=== PATIENT | female | born 1940 | race Caucasian/White ===

== ENCOUNTER 2020-03-22 14:24 | Emergency (ER) | payer MEDICARE, OTHER, SELFPAY ==
--- NOTE | ~2020-03-22 | CT_ITS ---
EXAMINATION: CT lumbar spine wo con EXAM DATE: 03/22/2020 16:00 INDICATION: Compression fracture and recent fall. Abnormal x-ray. TECHNIQUE: Spiral CT lumbar spine was performed without contrast. Axial, coronal and sagittal images of the lumbar spine were reviewed. The dose-length product (DLP) for this examination was 608.97 mGy- cm. The exposure was tailored according to patient size (auto mA exposure control), and iterative re construction (ASIR) was used as additional dose reduction technique. Correlation is made to lumbar sp ine x-ray same date. FINDINGS: There is mild compression fracture superior endplate of T12 which could be acute, discrete fracture l ine without evidence of healing. There is mild to moderate compression fracture of L1 which is chroni c. Other vertebral body heights relatively well-maintained. There is moderate to severe disc disease L2-L5. There is 4 mm anterolisthesis L4 on L5 without spondylolysis. No endplate erosive change. Surg ical clips from pelvic lymph node dissection. There is moderate sigmoid colonic diverticulosis. Ther e is no adjacent inflammatory change to suggest diverticulitis. There is moderate facet arthropathy L3-4, moderate to severe at L4-5 and L5-S1. Moderate left neural foraminal stenosis L3-4 and L4-5, and right neural foraminal stenosis L2-3 and L3-4. Less stenosis at the other levels. Sacroiliac joints are intact. IMPRESSION: 1. Mild T12 compression fracture, probably acute. 2. Moderate to severe lower lumbar spondylosis. 3. L4-5 grade 1 anterolisthesis. 4. Sigmoid diverticulosis. Reviewed, dictated and finalized at location A. B DIRECTOR OCCUPATIONAL THERAPIST
--- NOTE | ~2020-03-22 | XR_ITS ---
EXAMINATION: XR lumbar spine min 4V EXAM DATE: 03/22/2020 14:59 INDICATION: Fall, low back pain. TECHNIQUE: Lumber spine frontal, lateral, bilateral oblique projections. Coned down frontal and lat eral L5-S1 lumbar projections for interpretation. There is no prior study for comparison. FINDINGS: Chronic appearing mild to moderate compression fracture of L1, mild age-indeterminate compr ession fracture of T12. No endplate erosive change. There is moderate to severe disc disease L2-L5. Moderate to severe lower lumbar facet arthropathy. The vertebral bodies are aligned in the AP dimensi on. No spondylolysis suspected. Sacrum, sacroiliac joints, sacral arcuate lines are intact. Surgical clips from pelvic lymph node dissection. Mild to moderate aortic arterial sclerosis. IMPRESSION: 1. T12 mild compression fracture, age indeterminate. 2. L1 mild to moderate compression fracture appears likely chronic. 3. Moderate to severe lumbar spondylosis. Reviewed, dictated and finalized at location A. OMER EXPERIENCE CONSULTANT
--- NOTE | ~2020-03-22 | CT_ITS ---
EXAMINATION: CT brain wo [facility] EXAM DATE: 03/22/2020 14:49 INDICATION: Fall, posterior head injury. TECHNIQUE: Spiral CT of the head was performed without contrast. Axial, coronal and sagittal images were reviewed. The dose-length product (DLP) for this examination was 605.33 mGy-cm. The exposure w as tailored according to patient size, and iterative reconstruction (ASIR) was used as additional dos e reduction technique. Comparison is made to prior examination from 02/17/2019. FINDINGS: There is an old left basal ganglia lacunar infarction. Old small left frontal lobe subcorti joseluis infarction. Small to moderate-sized old right occipital lobe infarction. There is mild to moderat e microangiopathy and cerebral atrophy. No evidence of acute intracranial infarction, obstructive hyd rocephalus or extra-axial collections. Cataract surgery. IMPRESSION: 1. No acute intracranial findings. 2. Old infarctions. 3. Microangiopathy and atrophy. Reviewed, dictated and finalized at location A. ER OPERATOR
[2020-03-22 14:27] VITALS: BP 138/63; PULSE 74; RESP 16; TEMP 36.6; O2SAT 99
--- NOTE | 2020-03-22 15:00 | PC.NURSE ---
pt to xray/ct scan via stretcher
[2020-03-22 15:38] VITALS: BP 122/60; PULSE 71; RESP 19; O2SAT 98
[2020-03-22 16:49] VITALS: PULSE 71; RESP 23; O2SAT 99
--- NOTE | 2020-03-22 16:56 | ED.BACK ---
HPI - Back Pain/Injury General Chief Complaint: Back Pain/Injury Stated Complaint: FELL- BACK PAIN Time Seen by Provider: 03/22/20 14:33 Source: patient and family Mode of arrival: ambulatory Limitations: no limitations History of Present Illness HPI Narrative: 79-year-old with a history of hypertension and diabetes, compression fractures was brought in by with complaints of fall and low back pain. Patient states that she rolled out of the bed this morning and fell on her back. She denies any head injury or loss of consciousness. Denies any bladder or bowel incontinence. Denies any numbness in her lower extremities. MD elicited complaint: back pain Pertinent past history: prior back pain and recent trauma Severity: moderate Similar Symptoms Previously: No Location: lumbar spine Relieving factors: none Context: fall Associated symptoms: denies other symptoms Related Data Home Medications Medication Instructions Recorded Confirmed amlodipine 10 mg PO DAILY 02/18/19 02/18/19 aspirin [Adult Low Dose Aspirin] 81 mg PO DAILY 02/18/19 02/18/19 carvedilol 25 mg PO BID 02/18/19 02/18/19 clopidogrel 75 mg PO DAILY 02/18/19 02/18/19 fenofibrate 160 mg PO DAILY 02/18/19 02/18/19 furosemide 60 mg PO DAILY 02/18/19 02/18/19 losartan 100 mg PO DAILY 02/18/19 02/18/19 metformin 500 mg PO BID 02/18/19 02/18/19 potassium chloride 20 meq PO DAILY 02/18/19 02/18/19 pravastatin 40 mg PO DAILY 02/18/19 02/18/19 pyridoxine (vitamin B6) [Vitamin 100 mg PO DAILY 02/18/19 02/18/19 B-6] zolpidem 10 mg PO HS 02/18/19 02/18/19 Allergies Allergy/AdvReac Type Severity Reaction Status Date / Time No Known Allergies Allergy Verified 02/17/19 23:55 Review of Systems Review of Systems: All systems reviewed & are unremarkable except as noted in HPI and below Constitutional: Constitutional: Reports no additional constitutional complaints Eyes: Eyes: Reports no additional eye complaints ENT: Reports system reviewed and no additional complaints, except as documented Cardiovascular: Cardiovascular: Reports no additional cardiovascular complaints Respiratory: Respiratory: Reports no additional respiratory complaints Gastrointestinal: Gastrointestinal: Reports no additional gastrointestinal complaints Musculoskeletal: Musculoskeletal: Reports as per HPI Integumentary/Breasts: Skin/Breast: Reports system reviewed and no additional complaints, except as docu PMFSH Past Medical History Medical History Arthritis Breast cancer, left CVA (cerebral vascular accident) Diabetes mellitus HLD (hyperlipidemia) HTN (hypertension) Valvular heart disease Surgical History Surgical History Bilateral cataracts With removal H/O heart surgery History of dilation and curettage History of hysterectomy 2001 History of mastectomy 1991 History of tubal ligation Family History Family History Mother Throat cancer Father Liver cancer Sibling Diabetes mellitus Social History Social History Smoking status: Never smoker Alcohol intake: never Substance use: never Gender identity (if verbalized by the patient): Female Spiritual care concerns: No Agree to blood products: Yes Exam Narrative: Exam Narrative: GENERAL: Well-appearing, well-nourished, and in no acute distress. HEAD: Normocephalic, atraumatic. EYES: PERRLA and EOMI.. NECK: Supple. CHEST: Clear to auscultation. No respiratory distress. HEART: Regular rate and rhythm. No murmur heard. Normal peripheral pulses. ABDOMEN: Soft, nontender, nondistended, normal active bowel sounds. EXTREMITIES: Normal range of motion. No edema. SKIN: Warm, dry, no rash. NEURO: No focal deficits. Alert and oriented x3. PSYCH: Normal mood and affect. Course Vital Signs
[2020-03-22 17:30] VITALS: BP 136/86; PULSE 70; RESP 24; O2SAT 98
== END 2020-03-22 18:13 | disposition home or self-care (01) ==
PROVIDERS: Emergency Provider Family Medicine
DX: S22.088A Other fracture of T11-T12 vertebra, initial encounter for closed fracture (principal); I10 Essential (primary) hypertension; E11.9 Type 2 diabetes mellitus without complications; M19.90 Unspecified osteoarthritis, unspecified site; Z86.73 Personal history of transient ischemic attack (TIA), and cerebral infarction without residual deficits; E78.5 Hyperlipidemia, unspecified; Z85.3 Personal history of malignant neoplasm of breast; I38 Endocarditis, valve unspecified; Z98.42 Cataract extraction status, left eye; Z98.41 Cataract extraction status, right eye; Z90.10 Acquired absence of unspecified breast and nipple; M47.816 Spondylosis without myelopathy or radiculopathy, lumbar region; K57.30 Diverticulosis of large intestine without perforation or abscess without bleeding; W06.XXXA Fall from bed, initial encounter
CPT/HCPCS: 70450; 72110; 72131; 99284

== ENCOUNTER 2020-04-02 15:05 | Emergency (ER) | payer MEDICARE, OTHER, SELFPAY ==
[2020-04-02 15:10] VITALS: BP 121/53; PULSE 72; RESP 16; TEMP 36.1; O2SAT 100
--- NOTE | 2020-04-02 16:44 | ED.EPISTAXIS ---
HPI - Epistaxis General Chief complaint: Epistaxis Stated complaint: nose bleeding Time Seen by Provider: 04/02/20 16:44 History of Present Illness HPI Narrative: 79 yo female w/ h/o CAD on eeliquis presents to the ED form home for a nose bleed. She had light bleeding this morning that stopped on its onw. It started again this afternoon and she was not able to get it stopped. She had a clamp placed on arrival here and it has not bled since, that was about 90 minutes ago. No lhgiht headeness, weakness, SOB. She does not have frequent nose bleeds. Related Data Home Medications Medication Instructions Recorded Confirmed amlodipine 10 mg PO DAILY 02/18/19 02/18/19 aspirin [Adult Low Dose Aspirin] 81 mg PO DAILY 02/18/19 02/18/19 carvedilol 25 mg PO BID 02/18/19 02/18/19 clopidogrel 75 mg PO DAILY 02/18/19 02/18/19 fenofibrate 160 mg PO DAILY 02/18/19 02/18/19 furosemide 60 mg PO DAILY 02/18/19 02/18/19 losartan 100 mg PO DAILY 02/18/19 02/18/19 metformin 500 mg PO BID 02/18/19 02/18/19 potassium chloride 20 meq PO DAILY 02/18/19 02/18/19 pravastatin 40 mg PO DAILY 02/18/19 02/18/19 pyridoxine (vitamin B6) [Vitamin 100 mg PO DAILY 02/18/19 02/18/19 B-6] zolpidem 10 mg PO HS 02/18/19 02/18/19 apixaban [Eliquis] mg 04/02/20 04/02/20 aspirin 04/02/20 Allergies Allergy/AdvReac Type Severity Reaction Status Date / Time No Known Allergies Allergy Verified 04/02/20 16:26 Review of Systems Review of Systems: All systems reviewed & are unremarkable except as noted in HPI and below Constitutional: Constitutional: Denies chills, Denies fever(s) and Denies weakness Eyes: Eyes: Reports no additional eye complaints ENT: Denies dizziness Cardiovascular: Cardiovascular: Denies chest pain Respiratory: Respiratory: Denies dyspnea Gastrointestinal: Gastrointestinal: Denies abdominal pain and Denies nausea Genitourinary: Genitourinary: Denies hematuria Neurologic: Denies dizziness, Denies syncope and Denies weakness Hematologic/Lymphatic: Hematologic/Lymphatic: Denies easy bleeding and Denies easy bruising PMFSH Past Medical History Medical History Arthritis Breast cancer, left CVA (cerebral vascular accident) Diabetes mellitus HLD (hyperlipidemia) HTN (hypertension) Valvular heart disease Surgical History Surgical History Bilateral cataracts With removal H/O heart surgery History of dilation and curettage History of hysterectomy 2001 History of mastectomy 1991 History of tubal ligation Family History Family History Mother Throat cancer Father Liver cancer Sibling Diabetes mellitus Grandparent Hypertension Heart disease Social History Social History Smoking status: Never smoker Alcohol intake: never Substance use: never Substance use type: does not use Gender identity (if verbalized by the patient): Female Spiritual care concerns: No Agree to blood products: Yes Exam Const: General: no acute distress and alert Nutritional Appearance: well nourished Orientation/consciousness: patient oriented x3 HENMT: Other: Bleeding stopped. Site f recent bleeding on right kiesselbach's plexus Eyes: Pupils: Equal, round and reactive pupils present EOM: EOMs intact bilaterally Neck: Neck: normal visual inspection Resp: Effort & Inspection: normal respiratory effort Auscultation: clear to auscultation bilaterally Cardio: Rate: regular rate Rhythm: regular rhythm Skin: General skin exam: normal color and no pallor Neuro: General: patient oriented x3, moves all extremities, no focal motor deficits and CN's II-XI intact bilaterally Speech: normal speech Gait exam (Neuro): Normal gait present Extrem: General: normal to inspection Course Vital Signs Vi
[2020-04-02] MEDS: OXYMETAZOLINE HCL 0.05% NAS 15 ML BTL (*BKC) 2 SPRAY NASAL (17:10)
--- NOTE | 2020-04-02 17:17 | PC.NURSE ---
Afrin nasal spray to pt's right nare. Pt has no active bleeding at present. First squirt done per patient with instructions and 2nd done per this RN. Pt instructed that she may be using at home.
[2020-04-02] MEDS: SALINE 0.65% NAS SOLN 44 ML BTL 2 SPRAY NASAL (17:33)
--- NOTE | 2020-04-02 17:36 | PC.NURSE ---
Pt places saline solution without assist to right nare. No active bleeding anterior or posterior.
== END 2020-04-02 17:45 | disposition home or self-care (01) ==
PROVIDERS: Emergency Provider Emergency Medicine; PCP Family Medicine
DX: R04.0 Epistaxis (principal); I25.10 Atherosclerotic heart disease of native coronary artery without angina pectoris; Z79.01 Long term (current) use of anticoagulants; Z79.82 Long term (current) use of aspirin; M19.90 Unspecified osteoarthritis, unspecified site; Z85.3 Personal history of malignant neoplasm of breast; Z86.73 Personal history of transient ischemic attack (TIA), and cerebral infarction without residual deficits; E11.9 Type 2 diabetes mellitus without complications; E78.5 Hyperlipidemia, unspecified; I10 Essential (primary) hypertension; I99.9 Unspecified disorder of circulatory system; Z98.42 Cataract extraction status, left eye; Z98.41 Cataract extraction status, right eye; Z90.10 Acquired absence of unspecified breast and nipple; Z79.84 Long term (current) use of oral hypoglycemic drugs
CPT/HCPCS: 99283; A9270

== ENCOUNTER 2020-05-09 11:04 | Outpatient (CLI) | payer MEDICARE, OTHER, SELFPAY ==
[2020-05-09 11:46] LABS: Basophils Absolute Auto 0.1 K/mm3 (0.0-0.1); Basophils Percent Auto 0.9 % (0.2-1.2); Eosinophils Absolute Auto 0.1 K/mm3 (0-0.3); Eosinophils Percent Auto 1.5 % (0-4.4); Hematocrit 39.3 % (37.0-47.0); Hemoglobin 12.7 g/dL (12.0-15.0); Immature Granulocyte Absolute 0.01 K/mm3 (0.00-0.031); Immature Granulocyte Percent A 0.2 % (0-0.5); Lymphocytes Percent Auto 18.9 % (18.3-44.2); Mean Corpuscular HGB Conc 32.3 g/dl (32-36); Mean Corpuscular Hemoglobin 29.1 pg (26-34); Mean Corpuscular Volume 90.1 fl (80-100); Mean Platelet Volume 10.8 fl (7.4-10.4); Monocytes Absolute Auto 0.4 K/mm3 (0.1-0.6); Monocytes Percent Auto 7.1 % (2.6-8.5); Neutrophils Absolute Auto 4.2 K/mm3 (1.3-6.7); Neutrophils Percent Auto 71.4 % (45.5-73.1); Platelet Count Result 193 k/mm3 (150-375); Red Blood Count 4.36 M/mm3 (4.2-5.4); Red Cell Distribution Width 14.2 % (11.5-14.5); White Blood Count 5.8 K/mm3 (4.5-10.0)
[2020-05-09 11:58] LABS: Alanine Aminotransferase 24 U/L (4-35); Albumin Level 3.8 g/dL (3.5-5.1); Alkaline Phosphatase 55 U/L (38-126); Anion Gap 7 mmol/L (8-16); Aspartate Amino Transferase 43 U/L (14-36); Bilirubin,Total 0.6 mg/dL (0.2-1.3); Blood Urea Nitrogen 10 mg/dL (7-17); Calcium 8.8 mg/dL (8.4-10.2); Carbon Dioxide 23 mmol/L (22-30); Chloride 109 mmol/L (98-107); Estimated Glomerular Filt Rate 53; Glucose 176 mg/dL (65-105); Potassium 4.3 mmol/L (3.4-5.0); Sodium 139 mmol/L (137-145)
[2020-05-09 11:59] LABS: INR 1.6; Prothrombin Time 19.3 Seconds (11.1-14.7)
== END 2020-05-09 11:05 | disposition home or self-care (01) ==
PROVIDERS: PCP Internal Medicine; Visit Provider Internal Medicine
DX: E11.9 Type 2 diabetes mellitus without complications (principal); E78.5 Hyperlipidemia, unspecified; I10 Essential (primary) hypertension; I70.90 Unspecified atherosclerosis
CPT/HCPCS: 36415; 80053; 85025; 85610

== ENCOUNTER 2022-03-09 05:56 | Emergency (ER) | payer MEDICARE, OTHER, SELFPAY ==
[2022-03-09] VITALS (32 sets, daily range): BP systolic 162–207; BP diastolic 74–104; PULSE 67–82; RESP 13–33; TEMP 36.8–37.1; O2SAT 98–99
--- NOTE | ~2022-03-09 | CT_ITS ---
EXAMINATION: CT brain wo con DATE: 03/09/2022 06:33 INDICATION: Altered mental status. TECHNIQUE: Computed tomography (CT) of the head was performed without intravenous contrast. The mA wa s adjusted according to patient size. Iterative reconstruction technique was employed. The dose-lengt h product was 605.33 mGy-cm. COMPARISON: Head CT 03/22/2020 FINDINGS: There is an old infarct in right parietal occipital region. There are scattered areas of lo w attenuation in the cerebral white matter. There are old infarcts in the left basal ganglia. There i s no intracranial hemorrhage, acute infarction, or abnormal intracranial mass lesion. The ventricles are normal in size. The paranasal sinuses are clear. There are likely changes of ocular lens replacem ent surgeries. The mastoid air cells are normal. IMPRESSION: 1. Old infarcts in the right parietal-occipital region and left basal ganglia. 2. Worsened moderate nonspecific cerebral white matter disease, which likely represents chronic small vessel ischemic disease. Reviewed, dictated and finalized at location A. WELL GUN PERFORATOR OPERATOR IMPRESSION: 1. Old infarcts in the right parietal-occipital region and left basal ganglia. 2. Worsened moderate nonspecific cerebral white matter disease, which likely re presents chronic small vessel ischemic disease.
--- NOTE | ~2022-03-09 | CT_ITS ---
EXAMINATION: CT cervical spine wo con DATE: 03/09/2022 06:33 INDICATION: Neck injury. Fall. TECHNIQUE: Computed tomography (CT) of the cervical spine was performed without intravenous contrast. Automated exposure control and iterative reconstruction technique were employed. The dose-length pro duct was 271.20 mGy-cm. COMPARISON: None FINDINGS: There are nodules in the thyroid measuring up to 13 mm, likely not clinically significant. There is 6 degrees levocurvature of cervicothoracic spine. There is 2 mm anterolisthesis of C3 on C4 and C4 on C5. Vertebral body heights are normal. There is moderately decreased disc height at C3-C4 a nd C4-C5 and severely decreased disc height at C5-C6, C6-C7, and C7-T1 with endplate remodeling. The following disc levels are specifically discussed: C2-C3: There is ankylosis of the uncovertebral joints with mild left hypertrophy. There is ankylosis of the facet joints without hypertrophy. There is mild left neural foraminal stenosis. There is no ce ntral canal stenosis. C3-C4: There is severe bilateral uncovertebral joint osteoarthritis. There is severe bilateral facet joint osteoarthritis. There is mild right and moderate left neural foraminal stenosis. There is mild central canal stenosis. C4-C5: There is severe right and moderate left uncovertebral joint osteoarthritis. There is severe bi lateral facet joint osteoarthritis. There is mild bilateral neural foraminal stenosis. There is mild central canal stenosis. C5-C6: There is severe bilateral uncovertebral joint osteoarthritis. There is severe bilateral facet joint osteoarthritis. There is mild bilateral neural foraminal stenosis. There is mild central canal stenosis. C6-C7: There is severe bilateral uncovertebral joint osteoarthritis. There is moderate right and mild left facet joint osteoarthritis. There is mild bilateral neural foraminal stenosis. There is mild ce ntral canal stenosis. C7-T1: There is severe right and mild left uncovertebral joint osteoarthritis. There is severe right and moderate left facet joint osteoarthritis. There is mild right neural foraminal stenosis. There is no central canal stenosis. IMPRESSION: 1. No fracture. 2. Severe cervical spondylosis. Reviewed, dictated and finalized at location A. GER SOCIAL WORK
--- NOTE | 2022-03-09 06:00 | ECG_ITS ---
Measurements Intervals [place] Rate: 74 P: 18 KS: 138 QRS: -61 QRSD: 125 T: 129 QT: 443 QTc: 494 Interpretive Statements SINUS RHYTHM LEFT ANTERIOR FASCICULAR BLOCK LEFT VENTRICULAR HYPERTROPHY AND ST-T CHANGE BORDERLINE ST-T WAVE ABNORMALITY- LATERAL LEADS ABNORMAL ECG COMPARED TO ECG 02/17/2019 23:49:02 LEFT ANTERIOR FASCICULAR BLOCK NOW PRESENT ST (T WAVE) DEVIATION NOW PRESENT Electronically Signed On 03-09-2022 8:02:48 FILLER SHAKER by Gal Honeycutt D.O.
--- NOTE | 2022-03-09 06:10 | ED.AMS ---
HPI - Altered Mental Status General Chief Complaint: Altered Mental Status <James Butt MD - Last Filed: 03/09/22 09:11> Stated Complaint: SLOW TO RESPOND, FALLS, LETHARGY <James Butt MD - Last Filed: 03/09/22 09:11> Time Seen by Provider: 03/09/22 06:00 <James Butt MD - Last Filed: 03/09/22 09:11> History of Present Illness HPI narrative: This is an 81-year-old female with past medical history of diabetes, hypertension and stroke, who is brought in by EMS for altered mental status and fall. Per EMS, the patient fell twice overnight and this morning was slow to respond and appeared confused per the patient's . The patient had no other obvious complaints. Vital signs remarkable for hypertension in route. Fingerstick glucose reported in the 160s. The patient is not sure why she is here and has no complaints. <James Butt MD - Last Filed: 03/09/22 09:11> Related Data Home Medications: Home Medications Medication Instructions Recorded Confirmed amlodipine 10 mg tablet 10 mg PO DAILY 02/18/19 02/18/19 aspirin 81 mg tablet,delayed 81 mg PO DAILY 02/18/19 02/18/19 release (Adult Low Dose Aspirin) carvedilol 25 mg tablet 25 mg PO BID 02/18/19 02/18/19 clopidogrel 75 mg tablet 75 mg PO DAILY 02/18/19 02/18/19 fenofibrate 160 mg tablet 160 mg PO DAILY 02/18/19 02/18/19 furosemide 20 mg tablet 60 mg PO DAILY 02/18/19 02/18/19 losartan 100 mg tablet 100 mg PO DAILY 02/18/19 02/18/19 metformin 500 mg tablet 500 mg PO BID 02/18/19 02/18/19 potassium chloride 20 mEq 20 meq PO DAILY 02/18/19 02/18/19 tablet,extended release pravastatin 40 mg tablet 40 mg PO DAILY 02/18/19 02/18/19 pyridoxine (vitamin B6) 100 mg 100 mg PO DAILY 02/18/19 02/18/19 tablet (Vitamin B-6) zolpidem 10 mg tablet 10 mg PO HS 02/18/19 02/18/19 apixaban 2.5 mg tablet (Eliquis) mg 04/02/20 04/02/20 aspirin 04/02/20 <James Butt MD - Last Filed: 03/09/22 09:11> Allergies/Adverse Reactions: Allergies Allergy/AdvReac Type Severity Reaction Status Date / Time No Known Allergies Allergy Verified 04/02/20 16:26 <James Butt MD - Last Filed: 03/09/22 09:11> Review of Systems Review of Systems: CONSTITUTIONAL: Denies fever, chills, or sweats. EYES: Denies visual changes, redness, or discharge. ENT: Denies rhinorrhea, congestion, sore throat, or otalgia. CARDIOVASCULAR: Denies chest pain, palpitations, or edema. RESPIRATORY: Denies cough or dyspnea. GASTROINTESTINAL: Denies abdominal pain, nausea, vomiting, or diarrhea. GENITOURINARY: Denies dysuria or hematuria. SKIN: Denies rash or itching. MUSCULOSKELETAL: Denies back pain, joint pain, or myalgia. NEUROLOGIC: Denies headache, numbness, dizziness, or weakness. PSYCHIATRIC: Denies anxiety or depression. <James Butt MD - Last Filed: 03/09/22 09:11> PMF Past Medical History Medical History: Medical History Arthritis Breast cancer, left CVA (cerebral vascular accident) Diabetes mellitus HLD (hyperlipidemia) HTN (hypertension) Valvular heart disease <James Butt MD - Last Filed: 03/09/22 09:11> Surgical History Surgical History: Surgical History Bilateral cataracts With removal H/O heart surgery History of dilation and curettage History of hysterectomy 2002 History of mastectomy 1992 History of tubal ligation <James Butt MD - Last Filed: 03/09/22 09:11> Family History Family History: Family History Mother Throat cancer Father Liver cancer Sibling Diabetes mellitus Grandparent Hypertension Heart disease <James Butt MD - Last Filed: 03/09/22 09:11> Social History Social History: Social History Smoking statu
--- NOTE | 2022-03-09 06:26 | PC.NURSE ---
Pt's called 911 this morning after pt fell twice during the night. reports that pt is not acting right . Upon arrival pt answers questions appropriately after multiple prompts. She is slow to respond but alert and oriented x3. She denies any pain. When asked what made her fall pt cannot recall. She moves all extremities equally. Face is symmetrical. Speech is slurred. She denies any complaints at this time.
[2022-03-09 06:32] LABS: Basophils Absolute Auto 0.1 K/mm3 (0.0-0.1); Basophils Percent Auto 1.2 % (0.2-1.2); Eosinophils Absolute Auto 0.2 K/mm3 (0-0.3); Eosinophils Percent Auto 2.9 % (0-4.4); Hematocrit 43.2 % (37.0-47.0); Hemoglobin 13.9 g/dL (12.0-15.0); Immature Granulocyte Absolute 0.03 K/mm3 (0.00-0.031); Immature Granulocyte Percent A 0.4 % (0-0.5); Lymphocytes Absolute Auto 2.31 K/mm3 (0.9-3.2); Mean Corpuscular HGB Conc 32.2 g/dl (32-36); Mean Corpuscular Hemoglobin 27.9 pg (26-34); Mean Corpuscular Volume 86.6 fl (80-100); Mean Platelet Volume 11.4 fl (7.4-10.4); Monocytes Absolute Auto 0.6 K/mm3 (0.1-0.6); Monocytes Percent Auto 7.3 % (2.6-8.5); Neutrophils Percent Auto 60.2 % (45.5-73.1); Platelet Count Result 181 k/mm3 (150-375); Red Blood Count 4.99 M/mm3 (4.2-5.4); Red Cell Distribution Width 12.3 % (11.5-14.5); White Blood Count 8.2 K/mm3 (4.5-10.0)
[2022-03-09 06:36] LABS: Add Urine Microscopic? YES; Appearance Urine Clear (Clear); Bilirubin Urine Negative (Negative); Blood Urine 1+ (Negative); Color Urine Yellow (Yellow); Glucose Urine UA Trace mg/dL (Negative); Ketones Urine Negative (Negative); Leukocyte Esterase Ur Negative LEU/UL (Negative); Nitrate Urine Negative (Negative); Protein Urine 1+ mg/dL (Negative); Specific Grav Ur <= 1.005 (1.001-1.035); Urobilinogen Urine 0.2 mg/dL (<2.0)
[2022-03-09 06:41] LABS: Alanine Aminotransferase 18 U/L (6-35); Albumin Level 3.8 g/dL (3.5-5.1); Alkaline Phosphatase 108 U/L (38-126); Anion Gap 6 mmol/L (8-16); Aspartate Amino Transferase 25 U/L (14-36); Bilirubin,Total 0.5 mg/dL (0.2-1.3); Blood Urea Nitrogen 13 mg/dL (7-17); Calcium 8.5 mg/dL (8.4-10.2); Carbon Dioxide 22 mmol/L (22-30); Chloride 112 mmol/L (98-107); Estimated CRCL calculation 43 ml/min; Estimated Glomerular Filt Rate > 60; Ethanol < 10 mg/dL (<10); Glucose 225 mg/dL (65-110); Potassium 3.8 mmol/L (3.4-5.0); Sodium 140 mmol/L (137-145)
[2022-03-09 06:44] LABS: Amphetamine Screen Urine Negative (Negative); Barbiturate Screen Urine Negative (Negative); Benzodiazepines Screen Urine Negative (Negative); Cannabinoid Screen Urine Negative (Negative); Cocaine Screen Urine Negative (Negative); Methadone Screen Urine Negative (Negative); Opiate Screen Urine Negative (Negative); Phencyclidine Screen Urine Negative (Negative)
[2022-03-09 06:53] LABS: Troponin I 0.025 ng/mL (0.000-0.034)
[2022-03-09 06:54] LABS: Squamous Epithelial Cell Urine Rare /hpf (Few); WBC Urine 0-3 /hpf
[2022-03-09] MEDS: amLODIPine BESYLATE 5 MG TABLET 10 MG PO (07:48)
[2022-03-09 07:53] LABS: INR 1.3; Prothrombin Time 15.6 Seconds (11.1-14.7)
[2022-03-09 07:54] LABS: Partial Thromboplastin Time 26.8 SECONDS (22.3-36.8)
[2022-03-09 09:28] LABS: Influenza A QL RT-PCR Negative (Negative); Influenza B QL RT-PCR Negative (Negative); SARS-CoV-2 RNA PCR Negative
[2022-03-09 10:17] LABS: Troponin I 0.025 ng/mL (0.000-0.034)
--- NOTE | 2022-03-09 11:02 | PC.NURSE ---
Ambulatory in [place] without difficulty. Gait steady. c/o leg weakness but ambulates without assist.
--- NOTE | 2022-03-09 11:16 | PC.NURSE ---
Patient report received from EDD Ruano. All questions answered and care of patient assumed.
== END 2022-03-09 12:04 | disposition home or self-care (01) ==
PROVIDERS: Emergency Provider Preventive Medicine Aerospace Medicine; PCP Internal Medicine
DX: R41.82 Altered mental status, unspecified (principal); R94.31 Abnormal electrocardiogram [ECG] [EKG]; Z20.822 Contact with and (suspected) exposure to COVID-19; M19.90 Unspecified osteoarthritis, unspecified site; E11.9 Type 2 diabetes mellitus without complications; I10 Essential (primary) hypertension; E78.5 Hyperlipidemia, unspecified; Z85.3 Personal history of malignant neoplasm of breast; Z86.73 Personal history of transient ischemic attack (TIA), and cerebral infarction without residual deficits; Z79.01 Long term (current) use of anticoagulants
CPT/HCPCS: 36415; 70450; 72125; 80053; 80307; 81001; 84443; 84484; 85025; 85610; 85730; 87636; 93005; 99284; A9270

== ENCOUNTER 2022-03-21 12:28 | Observation (INO) | payer MEDICARE, OTHER, SELFPAY ==
[2022-03-21] VITALS (13 sets, daily range): BP systolic 132–167; BP diastolic 63–85; PULSE 68–82; RESP 13–26; TEMP 36.8–37.1; O2SAT 92–100
--- NOTE | ~2022-03-21 | XR_ITS ---
EXAMINATION: XR chest 1V portable DATE: 03/21/2022 13:54 INDICATION: Stroke. TECHNIQUE: A single frontal view of the chest was obtained. COMPARISON: Chest single view 02/17/2019 FINDINGS: There is no pneumonia, pleural effusion, or pneumothorax. The heart size is normal. There a re changes of mitral annuloplasty. There are surgical clips in left axilla. IMPRESSION: 1. No acute cardiopulmonary disease. Reviewed, dictated and finalized at location A. LY SALES STAFF
--- NOTE | ~2022-03-21 | US_ITS ---
EXAMINATION: US carotid duplex BI DATE: 03/22/2022 10:39 INDICATION: Left face weakness. Left hemiparesis. Stroke. TECHNIQUE: Grayscale, color Doppler, and pulsed Doppler images of the cervical carotid arteries were obtained. The degree of vessel stenosis is placed in one of the following categories: normal, <50%, 5 0-69%, >=70% but less than near-occlusion, near-occlusion, or total occlusion. Note that percent sten osis relative to normal distal artery lumen diameter is indirectly measured from velocity measurement s as described by Jared, et al. Radiology 2003; 229:340-346. COMPARISON: None. FINDINGS: RIGHT: The right common carotid artery (CCA) peak systolic velocity (PSV) is 68 cm/s. The right internal car otid artery (ICA) PSV is 72 cm/s. The right ICA end-diastolic velocity (EDV) is 19 cm/s. The right IC A/CCA PSV ratio is 1.1. Grayscale and color Doppler images yield an estimate of <50% diameter reducti on from plaque in the ICA. There is antegrade flow in the right vertebral artery. LEFT: The left CCA PSV is 72 cm/s. The left ICA PSV is 72 cm/s. The left ICA EDV is 18 cm/s. The left ICA/C CA PSV ratio is 1.0. Grayscale and color Doppler images yield an estimate of <50% diameter reduction from plaque in the ICA. There is antegrade flow in the left vertebral artery. IMPRESSION: 1. <50% stenosis in the right internal carotid artery. 2. <50% stenosis in the left internal carotid artery. Reviewed, dictated and finalized at location A. TECHNICIAN
--- NOTE | ~2022-03-21 | CT_ITS ---
EXAMINATION: CT brain wo con DATE: 03/21/2022 12:41 INDICATION: Left facial weakness. Slurred speech. TECHNIQUE: Computed tomography (CT) of the head was performed without intravenous contrast. The mA wa s adjusted according to patient size. Iterative reconstruction technique was employed. The dose-lengt h product was 605.33 mGy-cm. COMPARISON: Head CT 03/09/2022 FINDINGS: There is an old infarct in right parietal occipital region. There is old infarct in the lef t basal ganglia. There are scattered areas of low attenuation in the cerebral white matter. There is no intracranial hemorrhage, acute infarction, or abnormal intracranial mass lesion. The ventricles ar e normal in size. There are likely changes of ocular lens replacement surgeries. There is mild mucosa l thickening in the ethmoid sinuses. The mastoid air cells are normal. IMPRESSION: 1. Old infarcts in the right parietal-occipital region and left basal ganglia. 2. Stable moderate nonspecific cerebral white matter disease, which likely represents chronic small v essel ischemic disease. 3. I discussed this case with Dr. Valiente. Reviewed, dictated and finalized at location A. [facility] IMPRESSION: 1. Old infarcts in the right parietal-occipital region and left basal ganglia. 2. Stable moderate nonspecific cerebral white matter disease, which likely repr esents chronic small vessel ischemic disease. 3. I discussed this case with Dr. Valiente.
--- NOTE | ~2022-03-21 | MR_ITS ---
EXAMINATION: MR brain/brain stem wo con DATE: 03/22/2022 10:40 INDICATION: Transient left facial weakness and arm weakness. TECHNIQUE: Magnetic resonance imaging (MRI) of the brain and brainstem was performed without intraven ous contrast. COMPARISON: Head CT 03/21/2022 FINDINGS: There is an old infarct in right parietal occipital region with old blood products. There a re scattered areas of nonspecific increased T2-weighted signal intensity in the cerebral white matter . There is old infarct in the left basal ganglia. There is no intracranial hemorrhage, acute infarcti on, or abnormal intracranial mass lesion. The ventricles are normal in size. The paranasal sinuses ar e clear. There are likely changes of ocular lens replacement surgeries. The mastoid air cells are nor mal. IMPRESSION: 1. Old infarcts in the right parietal-occipital region and left basal ganglia. 2. Moderate nonspecific cerebral white matter disease, which likely represents chronic small vessel i schemic disease. Reviewed, dictated and finalized at location A. TIVE PHYSICAL EDUCATION SPECIALIST IMPRESSION: 1. Old infarcts in the right parietal-occipital region and left basal ganglia. 2. Moderate nonspecific cerebral white matter disease, which likely represents chronic small vessel ischemic disease.
--- NOTE | 2022-03-21 12:32 | ECG_ITS ---
Measurements Intervals [place] Rate: 71 P: -1 MA: 131 QRS: -51 QRSD: 125 T: 153 QT: 431 QTc: 471 Interpretive Statements SINUS RHYTHM WITH SINUS ARRHYTHMIA RIGHT BUNDLE BRANCH BLOCK LEFT ANTERIOR FASCICULAR BLOCK LEFT VENTRICULAR HYPERTROPHY AND ST-T CHANGE CANNOT RULE OUT SEPTAL INFARCT, AGE INDETERMINATE MINIMAL Q WAVES- HIGH LATERAL LEADS ABNORMAL ECG COMPARED TO ECG 03/09/2022 06:01:31 SINUS ARRHYTHMIA NOW PRESENT RIGHT BUNDLE-BRANCH BLOCK NOW PRESENT Electronically Signed On 03-21-2022 14:07:54 ACCOUNTING PRACTICE MANAGER by Gal Honeycutt D.O.
[2022-03-21 12:44] LABS: Glucose Point of Care 241 mg/dl (65-105)
[2022-03-21 13:03] LABS: Basophils Absolute Auto 0.1 K/mm3 (0.0-0.1); Eosinophils Absolute Auto 0.1 K/mm3 (0-0.3); Eosinophils Percent Auto 1.9 % (0-4.4); Hematocrit 42.9 % (37.0-47.0); Hemoglobin 13.6 g/dL (12.0-15.0); Immature Granulocyte Absolute 0.03 K/mm3 (0.00-0.031); Immature Granulocyte Percent A 0.4 % (0-0.5); Lymphocytes Absolute Auto 2.17 K/mm3 (0.9-3.2); Lymphocytes Percent Auto 31.9 % (18.3-44.2); Mean Corpuscular HGB Conc 31.7 g/dl (32-36); Mean Corpuscular Hemoglobin 27.3 pg (26-34); Mean Platelet Volume 11.3 fl (7.4-10.4); Monocytes Absolute Auto 0.5 K/mm3 (0.1-0.6); Monocytes Percent Auto 7.5 % (2.6-8.5); Neutrophils Absolute Auto 3.9 K/mm3 (1.3-6.7); Neutrophils Percent Auto 57.3 % (45.5-73.1); Platelet Count Result 175 k/mm3 (150-375); Red Blood Count 4.99 M/mm3 (4.2-5.4); Red Cell Distribution Width 12.7 % (11.5-14.5); White Blood Count 6.8 K/mm3 (4.5-10.0)
[2022-03-21 13:15] LABS: INR 1.3; Partial Thromboplastin Time 27.3 SECONDS (22.3-36.8); Prothrombin Time 15.3 Seconds (11.1-14.7)
--- NOTE | 2022-03-21 13:52 | ED.NEUROSD ---
HPI - Neuro Symptoms/Deficit General Chief Complaint: Suspected CVA Stated Complaint: slurred speech, left facial droop Time Seen by Provider: 03/21/22 13:26 History of Present Illness HPI Narrative: Patient is an 81-year-old female presenting with weakness. Patient denies complaints and states that she does not know why she is here. I spoke with the daughter who states that the patient's noticed this morning that the left side of her face was drooping and she had slurred speech. Patient's is also concerned that it seemed like her left arm was flaccid. EMS was called and upon her arrival to the ER, the symptoms had resolved. NIH of 0 upon arrival. According to family, she has had TIAs in the past. The daughter states that the family has been looking into getting her placed into a nursing facility as it has been increasingly difficult for her to care for her. Patient currently denies any pain, numbness, weakness. States she is hungry. Related Data Home Medications Medication Instructions Recorded Confirmed amlodipine 10 mg tablet 10 mg PO DAILY 02/18/19 03/21/22 aspirin 81 mg tablet,delayed 81 mg PO DAILY 02/18/19 03/21/22 release (Adult Low Dose Aspirin) carvedilol 25 mg tablet 25 mg PO BID 02/18/19 03/21/22 clopidogrel 75 mg tablet 75 mg PO DAILY 02/18/19 03/21/22 fenofibrate 160 mg tablet 160 mg PO DAILY 02/18/19 03/21/22 furosemide 20 mg tablet 60 mg PO DAILY 02/18/19 03/21/22 losartan 100 mg tablet 100 mg PO DAILY 02/18/19 03/21/22 metformin 500 mg tablet 500 mg PO BID 02/18/19 03/21/22 potassium chloride 20 mEq 20 meq PO DAILY 02/18/19 03/21/22 tablet,extended release pravastatin 40 mg tablet 40 mg PO DAILY 02/18/19 03/21/22 pyridoxine (vitamin B6) 100 mg 100 mg PO DAILY 02/18/19 03/21/22 tablet (Vitamin B-6) zolpidem 10 mg tablet 10 mg PO HS 02/18/19 03/21/22 apixaban 2.5 mg tablet (Eliquis) 2.5 mg PO BID 04/02/20 03/21/22 Allergies Allergy/AdvReac Type Severity Reaction Status Date / Time No Known Allergies Allergy Verified 04/02/20 16:26 Review of Systems Review of Systems: All systems reviewed & are unremarkable except as noted in HPI and below PMFSH Past Medical History Medical History (Updated 03/23/22 @ 17:39 by Suni Valiente MD) Arthritis Cancer of left breast (1991) Cerebrovascular accident (01/2019) Memory deficits, occasional word-finding problems, cognitive decline. Hyperlipidemia Hypertension Thoracic compression fracture Type 2 diabetes mellitus Valvular heart disease Surgical History Surgical History (Updated 03/21/22 @ 20:39 by Marilee Machuca PA-C) History of bilateral cataract extraction History of dilation and curettage (08/2001) History of heart valve replacement History of hysterectomy (2001) History of left mastectomy (1991) History of right breast biopsy History of tubal ligation (1978) Family History Family History Mother Throat cancer Father Liver cancer Sibling Diabetes mellitus Grandparent Hypertension Heart disease Social History Social History (Updated 03/21/22 @ 20:39 by Marilee Machuca PA-C) Social History: Surrogate medical decision maker: Pedrito Elizabeth, spouse. Code status: Full code. Smoking status: Never smoker Alcohol intake: never Substance use: never Substance use type: does not use Lack of Transportation: No Lack of Food: Never True Current Housing: I Have Housing Concerned About Future Housing: No Difficulty Paying Gas/Electric Bills: No Difficulty Paying for Meds: No Currently Unemployed: No Education: High School Diploma/GED Difficulty w/ Childcare or Family Care: No Living arrangements: with family Additional living arrangements comments: Lives with spouse in [place]. Raised 4 children. Occupation/Education: retired Spiritual care concerns: No Agree to blood products: Yes Exam N
[2022-03-21 14:36] LABS: Chloride 107 mmol/L (98-107)
[2022-03-21 14:46] LABS: Troponin I 0.021 ng/mL (0.000-0.034)
[2022-03-21 14:48] LABS: Alanine Aminotransferase 19 U/L (6-35); Albumin Level 3.3 g/dL (3.5-5.1); Alkaline Phosphatase 97 U/L (38-126); Anion Gap 7 mmol/L (8-16); Aspartate Amino Transferase 25 U/L (14-36); Bilirubin,Total 0.6 mg/dL (0.2-1.3); Blood Urea Nitrogen 18 mg/dL (7-17); Calcium 8.3 mg/dL (8.4-10.2); Carbon Dioxide 22 mmol/L (22-30); Estimated CRCL calculation 36 ml/min; Estimated Glomerular Filt Rate 60; Glucose 268 mg/dL (65-110); Potassium 3.9 mmol/L (3.4-5.0); Sodium 136 mmol/L (137-145)
[2022-03-21 14:55] LABS: Influenza A QL RT-PCR Negative (Negative); Influenza B QL RT-PCR Negative (Negative); SARS-CoV-2 RNA PCR Negative
--- NOTE | 2022-03-21 18:10 | PM.IMHP ---
H&P: HPI History of Present Illness Date/Time: 03/21/22 18:10 Chief Complaint: Left arm weakness and facial droop. Narrative: This is an 81-year-old female with history of stroke, hypertension, and diabetes who presented to the ED from home for evaluation of left arm weakness and facial droop. Patient is an unreliable historian and a majority of the following history is obtained from her son Henok at bedside in addition to triage and ED physician notes. The patient has showed increasing confusion since last September and is to the point where she does not really cook or clean any more. She is able to feed herself. She has had increasing issues with incontinence as well. She ambulates with a walker but has had falls though luckily she has not injured herself. This morning her was concerned as her speech seemed slurred and it appeared that the left side of her mouth was drooping. Later when he tried to help her get up with her walker the left arm seemed flaccid and she was unable to use it for a brief period of time. EMS was summoned and on their arrival her NIH stroke scale was 0 and she seemed to be back to baseline on arrival to the ED. She has been afebrile with stable vital signs though blood pressures have been running persistently in the 140s to 160s systolic. Brain CT showed old infarcts and stable moderate nonspecific cerebral white matter disease with no acute findings. She is being admitted in this setting for closer monitoring and stroke workup. Additionally the patient's has had increasing difficulties caring for her at home and they would like to discuss possible placement. At the time my evaluation the patient is alert and states that she is hungry. She has no complaints and does specifically deny headache, visual changes, focal weakness, paresthesias, chest pain, shortness a breath, nausea, and vomiting. She has not had any recent illnesses but notes that she slept for over 12 hours last night which is unusual for her. Review of Systems Review of Systems: Unable to assess accurately given her confusion. [facility] Past Medical History Medical History (Updated 03/21/22 @ 20:51 by Marilee Machuca PA-C) Arthritis Cancer of left breast (1991) Cerebrovascular accident (01/2019) Memory deficits, occasional word-finding problems, cognitive decline. Hyperlipidemia Hypertension Thoracic compression fracture Type 2 diabetes mellitus Valvular heart disease Surgical History Surgical History (Updated 03/21/22 @ 20:39 by Marilee Machuca PA-C) History of bilateral cataract extraction History of dilation and curettage (08/2001) History of heart valve replacement History of hysterectomy (2001) History of left mastectomy (1991) History of right breast biopsy History of tubal ligation (1978) Family History Family History Mother Throat cancer Father Liver cancer Sibling Diabetes mellitus Grandparent Hypertension Heart disease Social History Social History (Updated 03/21/22 @ 20:39 by Marilee Machuca PA-C) Social History: Surrogate medical decision maker: Pedrito Johnson, spouse. Code status: Full code. Smoking status: Never smoker Alcohol intake: never Substance use: never Substance use type: does not use Living arrangements: with family Additional living arrangements comments: Lives with spouse in [place]. Raised 4 children. Occupation/Education: retired Spiritual care concerns: No Agree to blood products: Yes Meds Home Medications and Allergies Home Medications Medication Instructions Recorded Confirmed Type amlodipine 10 mg tablet 10 mg PO DAILY 02/18/19 02/18/19 History aspirin 81 mg tablet,delayed 81 mg PO DAILY 02/18/19 02/18/19 History release (Adult Low Dose Aspirin) carvedilol 25 mg tablet 25 mg PO BID 02/18/19 02/18/19 History clopidogrel 75 mg tablet 75 mg PO DAILY 02/18/19 02/18/19
--- NOTE | 2022-03-21 21:43 | ADMGEN ---
This patient, Yuliana Johnson, was admitted to Medical Room 256-01. Patient/family oriented to hospital policies and general routines including ID bracelet, bed and alarms, visiting hours, pain management, procedures, bathroom and other care routines, personal items, smoking policy, room service/diet, and visiting hours. Information on how to activate the Rapid Response Team has been discussed. Patient/Family are encouraged to report perceived risks to care and to ask questions if they do not understand what they are told or what they should do.
[2022-03-22] VITALS (11 sets, daily range): BP systolic 121–175; BP diastolic 57–64; PULSE 72–82; RESP 16–20; TEMP 36.2–36.7; O2SAT 95–98
[2022-03-22 05:27] LABS: Anion Gap 4 mmol/L (8-16); Blood Urea Nitrogen 16 mg/dL (7-17); Calcium 8.2 mg/dL (8.4-10.2); Carbon Dioxide 26 mmol/L (22-30); Chloride 108 mmol/L (98-107); Estimated CRCL calculation 40 ml/min; Estimated Glomerular Filt Rate > 60; Glucose 170 mg/dL (65-110); Magnesium 1.7 mg/dL (1.6-2.3); Potassium 3.7 mmol/L (3.4-5.0); Sodium 138 mmol/L (137-145)
[2022-03-22 07:38] LABS: Hemoglobin A1C 8.8 % (<5.7)
[2022-03-22 08:38] LABS: Glucose Point of Care 183 mg/dl (65-105)
[2022-03-22] MEDS: LOSARTAN POTASSIUM 100 MG TABLET PO (09:09)
[2022-03-22] MEDS: PRAVASTATIN SODIUM 20 MG TABLET 40 MG PO (09:09)
[2022-03-22] MEDS: metFORMIN HCL 500 MG TABLET PO ×2 (09:09→16:47)
[2022-03-22] MEDS: carvediloL 25 MG TABLET PO ×2 (09:10→20:24)
[2022-03-22] MEDS: CLOPIDOGREL BISULFATE 75 MG TABLET PO (09:10)
[2022-03-22] MEDS: PYRIDOXINE HCL 50 MG TABLET 100 MG PO (09:10)
[2022-03-22] MEDS: ASPIRIN 81 MG ENTERIC TABLET PO (09:10)
[2022-03-22] MEDS: POTASSIUM CHLORIDE 20 MEQ TABLET.ER PO (09:10)
[2022-03-22] MEDS: APIXABAN 2.5 MG TABLET PO ×2 (09:10→16:47)
[2022-03-22] MEDS: FENOFIBRATE 160 MG TABLET PO (09:10)
[2022-03-22] MEDS: FUROSEMIDE 20 MG TABLET 60 MG PO (09:11)
[2022-03-22] MEDS: amLODIPine BESYLATE 5 MG TABLET 10 MG PO (09:11)
--- NOTE | 2022-03-22 11:48 | WPDNEURCNPN ---
Assessment and Plan Assessment and plan (1) TIA (transient ischemic attack): Code(s): G45.9 - Transient cerebral ischemic attack, unspecified Status: Acute Plan 1. TIA 2. Hypertension 3. Diabetes mellitus 4. Old stroke as documented by the CT scan and MRI 5 under lying ongoing dementia of vascular origin 6. Remote possibility of seizure though at this stage extremely unlikely and plan as outlined Consult date: 03/22/22 Reason for consult: Admitted to the hospital through the emergency room where she presented with the complaints of weakness along with slurred speech and left-sided facial droop as per the information available in the ER from the daughter and the she was noted to have slurred speech along with the drooping of the left side of the face and also her left upper extremity was flaccid by the time she came to the emergency room the symptomatology had resolved with a NIH of 0 upon arrival but patient does have history of TIAs in the past and the family was recently working into getting her placed into [facility]dc patient had been taking amlodipine 10 mg daily, aspirin 81 mg daily, clopidogrel 75 mg daily, carvedilol 25 mg twice a day and apixaban 2.5 mg daily is started on April 02, 2020, patient does have ongoing history of diabetes mellitus, hypertension and valvular heart disease, she has never alcohol intake never smoked on initial evaluation her vital signs were normal with blood pressure 165/74 routine lab studies were normal with negative influenza a and B and stars COVID screening initial CT scan of the head documented old infarcts in right parieto-occipital region and left basal ganglia, negative Doppler studies of carotid, and MRI documented old infarct in the right parieto-occipital region and left basal ganglia HPI: Review of Systems Review of Systems: All systems reviewed & are unremarkable except as noted in HPI and below [facility] Past Medical History Medical History (Updated 03/22/22 @ 12:01 by Jacky Prado MD) Arthritis Cancer of left breast (1991) Cerebrovascular accident (01/2019) Memory deficits, occasional word-finding problems, cognitive decline. Hyperlipidemia Hypertension Thoracic compression fracture Type 2 diabetes mellitus Valvular heart disease Surgical History Surgical History (Updated 03/21/22 @ 20:39 by Marilee Machuca PA-C) History of bilateral cataract extraction History of dilation and curettage (08/2001) History of heart valve replacement History of hysterectomy (2001) History of left mastectomy (1991) History of right breast biopsy History of tubal ligation (1978) Family History Family History Mother Throat cancer Father Liver cancer Sibling Diabetes mellitus Grandparent Hypertension Heart disease Social History Social History (Updated 03/21/22 @ 20:39 by Marilee Machuca PA-C) Social History: Surrogate medical decision maker: Pedrito Johnson, spouse. Code status: Full code. Smoking status: Never smoker Alcohol intake: never Substance use: never Substance use type: does not use Lack of Transportation: No Lack of Food: Never True Current Housing: I Have Housing Concerned About Future Housing: No Difficulty Paying Gas/Electric Bills: No Difficulty Paying for Meds: No Currently Unemployed: No Education: High School Diploma/GED Difficulty w/ Childcare or Family Care: No Living arrangements: with family Additional living arrangements comments: Lives with spouse in [place]. Raised 4 children. Occupation/Education: retired Spiritual care concerns: No Agree to blood products: Yes Meds Home Medications and Allergies Home Medications Medication Instructions Recorded Confirmed Type amlodipine 10 mg tablet 10 mg PO DAILY 02/18/19 03/21/22 History aspirin 81 mg tablet,delayed 81 mg PO DAILY 02/18/19 03/21/22 History release (Adult
[2022-03-22 12:04] LABS: Glucose Point of Care 353 mg/dl (65-105)
[2022-03-22] MEDS: INSULIN ASPART (*BKC) 100 UNITS/ML SUB-Q ×2 (12:08→16:51)
--- NOTE | 2022-03-22 12:15 | PM.IMPN ---
Progress Note: A&P Assessment and Plan (1) Facial droop: Code(s): R29.810 - Facial weakness Status: Acute (2) Left arm weakness: Code(s): R29.898 - Other symptoms and signs involving the musculoskeletal system Status: Acute (3) Type 2 diabetes mellitus: Code(s): E11.9 - Type 2 diabetes mellitus without complications Status: Acute (4) Hypertension: Code(s): I10 - Essential (primary) hypertension Status: Acute (5) Hyperlipidemia: Code(s): E78.5 - Hyperlipidemia, unspecified Status: Acute (6) Cognitive decline: Code(s): R41.89 - Other symptoms and signs involving cognitive functions and awareness Status: Acute Plan The patient presented to the ED via EMS from home for evaluation after noticed slurred speech, left-sided facial droop, and left arm weakness. These deficits were transient and her NIH stroke scale on EMS arrival was 0. Brain CT on arrival to the ED showed evidence of old strokes but no new findings. CVA is unlikely given rapid resolution however she most likely had a TIA. She has multiple risk factors for stroke unfortunately however she is on what appears to be maximum medical treatment including dual antiplatelet therapy, a statin, and oral anticoagulation with apixaban. Likely TIA as mRI did not show any new infarcts With history of vascular dementia And history of old infarcts Pt is declining will need NH placement unable to do ADLS Family at the bedside long discussion about prognosis Subjective Date/time seen: 03/22/22 12:15 Pt admitted or facial drop rule out TIA Pt going down or MRI brain and us of carotids MRI shows ?Old infarcts in the right parietal-occipital region and left basal ganglia. 2. Moderate nonspecific cerebral white matter disease, which likely represents chronic small vessel ischemic disease. US carotids are less than 50% BL Pt is unable to do her own ADLS at home will benefit from NH placement ECHO report not back Exam Narrative: General: Well-developed female in the semi-Rendon position in bed in no acute distress. Weight: 65.77 kg. BMI: 27.4. HEENT: Normocephalic, atraumatic. PERRL, EOMI. Sclera anicteric. Tacky mucous membranes. Neck: Supple. No obvious carotid bruits. Respiratory: Lungs are clear to auscultation bilaterally. Cardiovascular: Regular rate and rhythm with S1-S2. Gastrointestinal: Abdomen is soft, nontender, and nondistended with positive bowel sounds. Skin: Warm and dry. Healing abrasions on the left forearm. Extremities: No cyanosis, clubbing, or edema. Radial and pedal pulses intact. Neurological: Alert to name and date of only. Cranial nerves 2-12 are grossly intact. Speech is slow but clear; she does not speak in full sentences. Not necessarily unusual for the patient per son's report. No facial asymmetry. No drift in the upper or lower extremities. Normal [id number] on the right, somewhat slower with [id number] on the left though she is pretty accurate. Hand supervisor intelligence analyst and foot pushes equal bilaterally. She had difficulties understanding how to do rapid alternating movements and heel to hui. Gait not assessed. No facial asymmetry. Gait was not assessed. Psychiatric: Pleasantly confused and cooperative. Objective Data Vital Signs Vital Signs: Vital Signs - 24 hr 03/21/22 12:51 03/21/22 13:34 03/21/22 13:37 Temperature 36.8 C 37.0 C Pulse Rate 72 73 72 Respiratory Rate 14 20 20 Blood Pressure 153/72 H 148/73 H 148/73 H Pulse Oximetry 92 99 99 Oxygen Delivery Room Air Room Air 03/21/22 13:38 03/21/22 13:47 03/21/22 16:01 Temperature Pulse Rate 72 69 Respiratory Rate 13 Blood Pressure 150/74 H Pulse Oximetry 99 99 Oxygen Delivery 03/21/22 16:16 03/21/22 16:47 03/21/22 18:15 Temperature Pulse Rate 70 68 72 Respiratory Rate 20 20 20 Blood Pressure 167/75 H 166/84 H 132/85 Pulse Oximetry 98 99 100 Oxygen Delivery 0
[2022-03-22 16:51] LABS: Glucose Point of Care 207 mg/dl (65-105)
--- NOTE | 2022-03-22 21:02 | ECHO_ITS ---
Patient Info Name: Yuliana Johnson Age: 81 years : 1940 Gender: Female Ht: 61 in Wt: 144 lbs BSA: 1.70 m2 HR: 81 bpm BP: 165 / 79 mmHg Technical Quality: Fair Exam Date: 03/22/2022 3:16 PM Exam Location: [facility] Pulmonary Exam Room: 256 Patient Status: Inpatient Admit Date: 03/21/2022 Staff Ordering Physician: Marilee Machuca PA-C News Agent: Florence Aguilera RDCS Attending Provider: Rolando oCreas MD Referring Physician: Brigette LINDA; Exam Type: CA echo doppler color flow Study Info Indications - STROKE SYMPTOMS VALVULAR DISEASE Complete two-dimensional, color flow and Doppler transthoracic echocardiogram is performed. Summary 1. Complete two-dimensional, color flow and Doppler transthoracic echocardiogram is performed. 2. Left ventricular chamber dimension is normal. 3. Left ventricular systolic function is normal, estimated at 60-65%. 4. There is mildly increased left ventricular wall thickness. 5. The left ventricular diastolic function is abnormal. 6. E/e' 24 is elevated. 7. Left atrial chamber dimension is moderately enlarged. 8. There is mild aortic valve sclerosis. 9. There is mild aortic valve regurgitation. 10. The mitral valve has moderately calcified leaflets and severely calcified annulus. 11. There is trace tricuspid valve regurgitation. 12. No pulmonary hypertension, estimated pulmonary arterial systolic pressure is 33 mmHg. 13. There is trace pulmonic regurgitation. Left Ventricle E/e' 24 is elevated. Left ventricular chamber dimension is normal. Left ventricular systolic function is normal, estimated at 60-65%. There is mildly increased left ventricular wall thickness. The left ventricular diastolic function is abnormal. Right Ventricle Right ventricular chamber dimension is normal. Right ventricular systolic function is normal. Left Atria Left atrial chamber dimension is moderately enlarged. Right Atria Right atrial chamber dimension is normal. Aortic Valve The aortic valve is trileaflet. There is mild aortic valve sclerosis. There is no aortic valve stenosis. There is mild aortic valve regurgitation. Pulmonic Valve There is trace pulmonic regurgitation. Mitral Valve The mitral valve has moderately calcified leaflets and severely calcified annulus. There is no mitral valve stenosis. There is no mitral valve regurgitation. Tricuspid Valve There is trace tricuspid valve regurgitation. No pulmonary hypertension, estimated pulmonary arterial systolic pressure is 33 mmHg. Pericardium/Pleural There is no pericardial effusion. Inferior Vena Cava Normal inferior vena cava with >50% collapse upon inspiration consistent with normal right atrial pressure, 5 mmHg. Aorta The aortic root size at the sinus of Valsalva is normal. Left Ventricular Outflow Tract Name Value Normal LVOT 2D LVOT Diameter 2.0 cm LVOT Doppler LVOT Peak Gradient 6 mmHg LVOT Mean Gradient 3 mmHg LVOT VTI 21 cm LVOT VTI/AV VTI Ratio 1.0
[2022-03-22 21:31] LABS: Glucose Point of Care 278 mg/dl (65-105)
[2022-03-23] VITALS (13 sets, daily range): BP systolic 105–145; BP diastolic 46–63; PULSE 71–81; RESP 14–20; TEMP 36.4–36.8; O2SAT 95–98
[2022-03-23] MEDS: MELATONIN 5 MG TABLET PO (00:26)
[2022-03-23 08:15] LABS: Glucose Point of Care 218 mg/dl (65-105)
[2022-03-23] MEDS: APIXABAN 2.5 MG TABLET PO ×2 (09:15→17:09)
[2022-03-23] MEDS: ASPIRIN 81 MG ENTERIC TABLET PO (09:16)
[2022-03-23] MEDS: CLOPIDOGREL BISULFATE 75 MG TABLET PO (09:17)
[2022-03-23] MEDS: metFORMIN HCL 500 MG TABLET PO ×2 (09:18→17:09)
[2022-03-23] MEDS: FENOFIBRATE 160 MG TABLET PO (09:18)
[2022-03-23] MEDS: POTASSIUM CHLORIDE 20 MEQ TABLET.ER PO (09:18)
[2022-03-23] MEDS: PRAVASTATIN SODIUM 20 MG TABLET 40 MG PO (09:19)
[2022-03-23] MEDS: PYRIDOXINE HCL 50 MG TABLET 100 MG PO (09:19)
[2022-03-23 09:26] LABS: Glucose Point of Care 311 mg/dl (65-105)
[2022-03-23] MEDS: INSULIN ASPART (*BKC) 100 UNITS/ML SUB-Q ×3 (09:27→17:09)
[2022-03-23] MEDS: amLODIPine BESYLATE 5 MG TABLET 10 MG PO (10:41)
[2022-03-23] MEDS: carvediloL 25 MG TABLET PO ×2 (10:42→20:33)
[2022-03-23] MEDS: LOSARTAN POTASSIUM 100 MG TABLET PO (10:42)
--- NOTE | 2022-03-23 10:57 | PM.IMPN ---
Progress Note: A&P Assessment and Plan (1) Facial droop: Code(s): R29.810 - Facial weakness Status: Acute Assessment and Plan: The patient presented to the ED via EMS from home for evaluation after noticed slurred speech, left-sided facial droop, and left arm weakness. These deficits were transient and her NIH stroke scale on EMS arrival was 0. Brain CT on arrival to the ED showed evidence of old strokes but no new findings. CVA is unlikely given rapid resolution however she most likely had a TIA. She has multiple risk factors for stroke unfortunately however she is on what appears to be maximum medical treatment including dual antiplatelet therapy, a statin, and oral anticoagulation with apixaban. Likely TIA as MRI did not show any new infarcts With history of vascular dementia And history of old infarcts Pt is declining will need NH placement unable to do ADLS Family at the bedside long discussion about prognosis (2) Left arm weakness: Code(s): R29.898 - Other symptoms and signs involving the musculoskeletal system Status: Acute Assessment and Plan: The patient presented to the ED via EMS from home for evaluation after noticed slurred speech, left-sided facial droop, and left arm weakness. These deficits were transient and her NIH stroke scale on EMS arrival was 0. Brain CT on arrival to the ED showed evidence of old strokes but no new findings. CVA is unlikely given rapid resolution however she most likely had a TIA. She has multiple risk factors for stroke unfortunately however she is on what appears to be maximum medical treatment including dual antiplatelet therapy, a statin, and oral anticoagulation with apixaban. (3) Type 2 diabetes mellitus: Code(s): E11.9 - Type 2 diabetes mellitus without complications Status: Acute Assessment and Plan: chronic and stable (4) Hypertension: Code(s): I10 - Essential (primary) hypertension Status: Acute Assessment and Plan: chronic and stable (5) Hyperlipidemia: Code(s): E78.5 - Hyperlipidemia, unspecified Status: Acute Assessment and Plan: chronic and stable (6) Cognitive decline: Code(s): R41.89 - Other symptoms and signs involving cognitive functions and awareness Status: Acute Assessment and Plan: Progressive decline as per family Subjective Date/time seen: 03/23/22 10:57 Pt admitted or facial drop rule out TIA Pt had MRI brain and US carotids, ECHO report not back MRI shows?old infarcts in the right parietal-occipital region and left basal ganglia. 2. Moderate nonspecific cerebral white matter disease, which likely represents chronic small vessel ischemic disease. US carotids are less than 50% BL Pt is unable to do her own ADLS at home will benefit from NH placement Long discussion with children and by the bedside, pt has been declining cognitively at home history of old infarcts ? likely vascular dementia Review of Systems Review of Systems: Pleasantly slow to talk with, [facility] Exam Narrative: General: Well-developed female Neck: Supple. No obvious carotid bruits. Respiratory: Lungs are clear to auscultation bilaterally. Cardiovascular: Regular rate and rhythm with S1-S2. Gastrointestinal: Abdomen is soft, nontender, and nondistended with positive bowel sounds. Skin: Warm and dry. Healing abrasions on the left forearm. Extremities: No cyanosis, clubbing, or edema. Radial and pedal pulses intact. Neurological: Alert to name and date of only. Cranial nerves 2-12 are grossly intact. Speech is slow but clear; she does not speak in full sentences. Mildly confused when answering questions,[facility] Psychiatric: Pleasantly confused and cooperative. Objective Data Vital Signs Vital Signs: Vital Signs - 24 hr 03/22/22 12:04 03/22/22 13:54 03/22/22 16:00 Temperature 36.2 C L Pulse Rate 78 72 74 Respiratory Rate 16
[2022-03-23 12:02] LABS: Glucose Point of Care 371 mg/dl (65-105)
[2022-03-23 16:54] LABS: Glucose Point of Care 250 mg/dl (65-105)
[2022-03-23 21:36] LABS: Glucose Point of Care 264 mg/dl (65-105)
[2022-03-24] VITALS: PULSE 77
[2022-03-24 04:00] VITALS: PULSE 81
[2022-03-24 06:00] VITALS: BP 138/74; PULSE 80; RESP 20; TEMP 36.3; O2SAT 98
[2022-03-24 08:03] VITALS: PULSE 83
[2022-03-24 08:04] VITALS: PULSE 89
[2022-03-24] MEDS: FUROSEMIDE 20 MG TABLET 60 MG PO (08:04)
[2022-03-24] MEDS: APIXABAN 2.5 MG TABLET PO (08:04)
[2022-03-24] MEDS: amLODIPine BESYLATE 5 MG TABLET 10 MG PO (08:04)
[2022-03-24] MEDS: FENOFIBRATE 160 MG TABLET PO (08:04)
[2022-03-24] MEDS: ASPIRIN 81 MG ENTERIC TABLET PO (08:04)
[2022-03-24] MEDS: PYRIDOXINE HCL 50 MG TABLET 100 MG PO (08:04)
[2022-03-24] MEDS: metFORMIN HCL 500 MG TABLET PO (08:04)
[2022-03-24] MEDS: PRAVASTATIN SODIUM 20 MG TABLET 40 MG PO (08:04)
[2022-03-24] MEDS: POTASSIUM CHLORIDE 20 MEQ TABLET.ER PO (08:04)
[2022-03-24] MEDS: CLOPIDOGREL BISULFATE 75 MG TABLET PO (08:04)
[2022-03-24] MEDS: carvediloL 25 MG TABLET PO (08:04)
[2022-03-24] MEDS: LOSARTAN POTASSIUM 100 MG TABLET PO (08:05)
[2022-03-24 08:42] LABS: Glucose Point of Care 238 mg/dl (65-105)
[2022-03-24] MEDS: INSULIN ASPART (*BKC) 100 UNITS/ML SUB-Q ×2 (09:24→12:07)
--- NOTE | 2022-03-24 09:38 | PM.IMPN ---
Progress Note: A&P Assessment and Plan (1) Facial droop: Code(s): R29.810 - Facial weakness Status: Acute Assessment and Plan: The patient presented to the ED via EMS from home for evaluation after noticed slurred speech, left-sided facial droop, and left arm weakness. These deficits were transient and her NIH stroke scale on EMS arrival was 0. Brain CT on arrival to the ED showed evidence of old strokes but no new findings. CVA is unlikely given rapid resolution however she most likely had a TIA. She has multiple risk factors for stroke unfortunately however she is on what appears to be maximum medical treatment including dual antiplatelet therapy, a statin, and oral anticoagulation with apixaban. Likely TIA as MRI did not show any new infarcts With history of vascular dementia And history of old infarcts Patient unable to do ADLs SNF placement agreeable Will check with care coordination Echo with 60-65% abnormal diastolic function nonsignificant valvular abnormality Carotid Doppler less than 50% bilaterally (2) Left arm weakness: Code(s): R29.898 - Other symptoms and signs involving the musculoskeletal system Status: Acute Assessment and Plan: The patient presented to the ED via EMS from home for evaluation after noticed slurred speech, left-sided facial droop, and left arm weakness. These deficits were transient and her NIH stroke scale on EMS arrival was 0. Brain CT on arrival to the ED showed evidence of old strokes but no new findings. CVA is unlikely given rapid resolution however she most likely had a TIA. She has multiple risk factors for stroke unfortunately however she is on what appears to be maximum medical treatment including dual antiplatelet therapy, a statin, and oral anticoagulation with apixaban. (3) Type 2 diabetes mellitus: Code(s): E11.9 - Type 2 diabetes mellitus without complications Status: Acute Assessment and Plan: chronic and stable A1c at 8.8 Blood sugar trend reviewed On metformin at home (4) Hypertension: Code(s): I10 - Essential (primary) hypertension Status: Acute Assessment and Plan: chronic and stable (5) Hyperlipidemia: Code(s): E78.5 - Hyperlipidemia, unspecified Status: Acute Assessment and Plan: chronic and stable (6) Cognitive decline: Code(s): R41.89 - Other symptoms and signs involving cognitive functions and awareness Status: Acute Assessment and Plan: Progressive decline as per family Since stroke in 2019 Subjective Date/time seen: 03/24/22 09:38 Interval history: No overnight events. Discussed the nursing staff. Feels okay. Weakness is improved. See still requires assistance with ambulation. No shortness of breath chest pain discussed with at bedside Review of Systems Review of Systems: All systems reviewed & are unremarkable except as noted in HPI and below Exam Narrative: General: Well-developed female not in acute distress Neck: Supple. No obvious carotid bruits. Respiratory: Lungs are clear to auscultation bilaterally. Cardiovascular: Regular rate and rhythm with S1-S2. Gastrointestinal: Abdomen is soft, nontender, and nondistended with positive bowel sounds. Skin: Warm and dry. Healing abrasions on the left forearm. Extremities: No cyanosis, clubbing, or edema. Radial and pedal pulses intact. Neurological: Alert to person and place not to time Cranial nerves 2-12 are grossly intact. Speech is slow but clear; she does not speak in full sentences. Mildly confused when answering questions,[place] Psychiatric: Pleasantly confused and cooperative. Objective Data Vital Signs Vital Signs: Vital Signs - 24 hr 03/23/22 10:32 03/23/22 10:42 03/23/22 12:00 Temperature Pulse Rate 74 74 Respiratory Rate Blood Pressure 118/63 Pulse Oximetry Oxygen Delivery 03/23/22 14:26 03/23/22 16:00 03/23/22
--- NOTE | 2022-03-24 10:27 | WPDNEUROPN ---
Subjective Date/time seen: 03/24/22 10:27 Interval history: seen initially for the diagnosis of TIA MRI documented old infarct in right parieto-occipital region in addition to left basal ganglia as well explained to the , patient is receiving apixaban along with the aspirin and clopidogrel because of the significant valvular disease as well but neurological examination remains unchanged and treatment continued as such Objective Data Vital Signs Vital Signs: Vital Signs - 24 hr 03/23/22 10:32 03/23/22 10:42 03/23/22 12:00 Temperature Pulse Rate 74 74 Respiratory Rate Blood Pressure 118/63 Pulse Oximetry Oxygen Delivery 03/23/22 14:26 03/23/22 16:00 03/23/22 20:33 Temperature 36.6 C Pulse Rate 73 72 76 Respiratory Rate 14 Blood Pressure 105/53 L Pulse Oximetry 95 Oxygen Delivery 03/23/22 20:20 03/23/22 22:36 03/23/22 20:00 Temperature 36.4 C L Pulse Rate 76 76 Respiratory Rate 20 Blood Pressure 126/60 Pulse Oximetry 98 Oxygen Delivery Room Air 03/24/22 00:00 03/24/22 04:00 03/24/22 06:00 Temperature 36.3 C L Pulse Rate 77 81 80 Respiratory Rate 20 Blood Pressure 138/74 Pulse Oximetry 98 Oxygen Delivery 03/24/22 08:04 03/24/22 08:00 Temperature Pulse Rate 89 Respiratory Rate Blood Pressure Pulse Oximetry Oxygen Delivery Room Air Intake/Output Intake/Output: Intake & Output 03/21/22 03/22/22 03/23/22 03/24/22 23:59 23:59 23:59 23:59 Intake Total 560 1558 536 Balance 560 1558 536 Meds/Results Medications: Active Medications Generic Name Dose Route Start Last Admin Trade Name Freq PRN Reason Stop Dose Admin Acetaminophen 650 mg 03/21/22 21:02 Acetaminophen 325 Mg Tablet PO Q6H PRN Mild Pain (1-3) or Fever Amlodipine Besylate 10 mg 03/22/22 09:00 03/24/22 08:04 Amlodipine Besylate 5 Mg Tablet PO 10 mg DAILY DAVID Administration Apixaban 2.5 mg 03/22/22 09:00 03/24/22 08:04 Apixaban 2.5 Mg Tablet PO 2.5 mg BID DAVID Administration Aspirin 81 mg 03/22/22 09:00 03/24/22 08:04 Aspirin 81 Mg Enteric Tablet PO 81 mg DAILY DAVID Administration Carvedilol 25 mg 03/22/22 09:00 03/24/22 08:04 Carvedilol 25 Mg Tablet PO 25 mg Q12HR DAVID Administration Clopidogrel Bisulfate 75 mg 03/22/22 09:00 03/24/22 08:04 Clopidogrel Bisulfate 75 Mg Tablet PO 75 mg DAILY DAVID Administration Dextrose 12.5 gm 03/21/22 21:02 Dextrose 50% 25 Gm/50 Ml Syringe IV PUSH PRN PRN Hypoglycemia Protocol Fenofibrate 160 mg 03/22/22 09:00 03/24/22 08:04 Fenofibrate 160 Mg Tablet PO 160 mg DAILY DAVID Administration Furosemide 60 mg 03/22/22 09:00 03/24/22 08:04 Furosemide 20 Mg Tablet PO 60 mg DAILY DAVID Administration Glucagon 1 mg 03/21/22 21:02 Glucagon For Inj 1 Mg Vial IM PRN PRN Hypoglycemia Protocol Glucose 15 gm 03/21/22 21:02 Glucose Oral Gel 15 Gm Of Glucse In 37.5 Gm Tube PO PRN PRN Hypoglycemia Protocol Dextrose 1,000 mls @ 100 mls/hr 03/21/22 21:02 Dextrose 5% 1,000 Ml IVPB PRN PRN Hypoglycemia Protocol Insulin Aspart 2 - 5 units 03/22/22 08:00 03/24/22 09:24 Insulin Aspart (*Bkc) 100 Units/Ml SUB-Q 2 units TIDWM DAVID Administration Protocol Levetiracetam 500 mg 03/24/22 10:25 Levetiracetam 500 Mg Tablet PO Q12HR DAVID Losartan Potassium 100 mg 03/22/22 09:00 03/24/22 08:05 Losartan Potassium 100 Mg Tablet PO 100 mg DAILY DAVID Administration Melatonin 5 mg 03/23/22 00:06 03/23/22 00:26 Melatonin 5 Mg Tablet PO 5 mg QHS PRN Administration Insomnia Metformin HCl 500 mg 03/22/22 09:00 03/24/22 08:04 Metformin Hcl 500 Mg Tablet PO 500 mg BID DAVID Administration Potassium Chloride 20 meq 03/22/22 09:00 03/24/22 08:04 Potassium Chloride 20 Meq Tablet.Er PO 20 meq DAILY DAVID Administra
[2022-03-24] MEDS: levETIRAcetam 500 MG TABLET PO (11:34)
[2022-03-24 12:04] VITALS: PULSE 76
[2022-03-24 12:06] LABS: Glucose Point of Care 333 mg/dl (65-105)
--- NOTE | 2022-03-24 12:38 | PM.DS ---
DS: Admitting Diagnosis Discharge Date 03/24/2022 Admitting Diagnosis left facial droop DS: Discharge Diagnosis Discharge Diagnosis (1) Facial droop: Code(s): R29.810 - Facial weakness Status: Acute (2) Left arm weakness: Code(s): R29.898 - Other symptoms and signs involving the musculoskeletal system Status: Acute (3) Type 2 diabetes mellitus: Code(s): E11.9 - Type 2 diabetes mellitus without complications Status: Acute (4) Hypertension: Code(s): I10 - Essential (primary) hypertension Status: Acute (5) Hyperlipidemia: Code(s): E78.5 - Hyperlipidemia, unspecified Status: Acute (6) Cognitive decline: Code(s): R41.89 - Other symptoms and signs involving cognitive functions and awareness Status: Acute DS: Summary Hospital Course Hospital Course: # left Facial droop with left-sided weakness: The patient presented to the ED via EMS from home for evaluation after noticed slurred speech, left-sided facial droop, and left arm weakness. These deficits were transient and her NIH stroke scale on EMS arrival was 0. Brain CT on arrival to the ED showed evidence of old strokes but no new findings. CVA is unlikely given rapid resolution however she most likely had a TIA. She has multiple risk factors for stroke unfortunately however she is on what appears to be maximum medical treatment including dual antiplatelet therapy, a statin, and oral anticoagulation with apixaban. Likely TIA as MRI did not show any new infarcts With history of vascular dementia And history of old infarcts Patient unable to do ADLs SNF placement agreeable however denied later wanted to go home with home health Echo with 60-65% abnormal diastolic function nonsignificant valvular abnormality Carotid Doppler less than 50% bilaterally For possible seizure she was placed on Keppra by neurologist. Follow-up with neurology as an outpatient basis # left arm weakness: The patient presented to the ED via EMS from home for evaluation after noticed slurred speech, left-sided facial droop, and left arm weakness. These deficits were transient and her NIH stroke scale on EMS arrival was 0. Brain CT on arrival to the ED showed evidence of old strokes but no new findings. CVA is unlikely given rapid resolution however she most likely had a TIA. She has multiple risk factors for stroke unfortunately however she is on what appears to be maximum medical treatment including dual antiplatelet therapy, a statin, and oral anticoagulation with apixaban. # type 2 diabetes mellitus: chronic and stable A1c at 8.8 Blood sugar trend reviewed On metformin at home Which will be resumed Diabetes management per primary care # hypertension: chronic and stable # Hyperlipidemia: chronic and stable # Cognitive decline: Progressive decline as per family Since [place] in 2019 Time Spent with Patient Time attestation: Total time spent providing and/or coordinating discharge services:50 mins Exam Narrative: General: Well-developed female not in acute distress Neck: Supple. No obvious carotid bruits. Respiratory: Lungs are clear to auscultation bilaterally. Cardiovascular: Regular rate and rhythm with S1-S2. Gastrointestinal: Abdomen is soft, nontender, and nondistended with positive bowel sounds. Skin: Warm and dry. Healing abrasions on the left forearm. Extremities: No cyanosis, clubbing, or edema. Radial and pedal pulses intact. Neurological: Alert to person and place not to time Cranial nerves 2-12 are grossly intact. Speech is slow but clear; she does not speak in full sentences. Mildly confused when answering questions,[place] Psychiatric: Pleasantly confused and cooperative. DS: Data Data Completed and Pending Completed studies during hospitalization: Exam Type: ? ? CA echo doppler color flow Study Info Indications ?? ? - STROKE SYMPTOMS VALVULAR DISEASE Complete two-dimensional, color
--- NOTE | 2022-03-24 12:47 | PCOTNOTE ---
Attempted to see patient this pm, however patient declined due to awaiting discharge.
== END 2022-03-24 13:45 | disposition home health service (06) ==
LOC: ANHED 13:54 → ANH2MED 22:29
PROVIDERS: Physician Assistant; Admitting Provider Internal Medicine; Emergency Provider Emergency Medicine; PCP Internal Medicine; Visit Provider Internal Medicine
DX: R29.810 Facial weakness (principal); R29.898 Other symptoms and signs involving the musculoskeletal system; E11.9 Type 2 diabetes mellitus without complications; I10 Essential (primary) hypertension; E78.5 Hyperlipidemia, unspecified; R41.89 Other symptoms and signs involving cognitive functions and awareness; R47.81 Slurred speech; Z20.822 Contact with and (suspected) exposure to COVID-19; M19.90 Unspecified osteoarthritis, unspecified site; I45.2 Bifascicular block; R94.31 Abnormal electrocardiogram [ECG] [EKG]; I34.81 Nonrheumatic mitral (valve) annulus calcification; I35.0 Nonrheumatic aortic (valve) stenosis; R41.0 Disorientation, unspecified; R32 Unspecified urinary incontinence; R90.82 White matter disease, unspecified; Z95.2 Presence of prosthetic heart valve; Z79.82 Long term (current) use of aspirin; Z79.02 Long term (current) use of antithrombotics/antiplatelets; Z79.84 Long term (current) use of oral hypoglycemic drugs; Z79.01 Long term (current) use of anticoagulants; Z79.899 Other long term (current) drug therapy; Z85.3 Personal history of malignant neoplasm of breast; Z86.73 Personal history of transient ischemic attack (TIA), and cerebral infarction without residual deficits
CPT/HCPCS: 36415; 70450; 70551; 71045; 80048; 80053; 82948; 83036; 83735; 84443; 84484; 85025; 85610; 85730; 87636; 92507; 92523; 93005; 93306; 93880; 97110; 97161; 97166; 97530; 99285; A9270; G0378; J1815

== ENCOUNTER 2022-10-28 14:24 | Outpatient (CLI) | payer MEDICARE, OTHER, SELFPAY ==
[2022-10-28 15:31] LABS: LDL Cholesterol Direct 92 mg/dL
== END 2022-10-28 14:25 | disposition home or self-care (01) ==
LOC: ANHLAB 14:29
PROVIDERS: PCP Internal Medicine; Visit Provider Student in an Organized Health Care Education/Training Program
DX: E78.5 Hyperlipidemia, unspecified (principal)
CPT/HCPCS: 36415; 83721

== ENCOUNTER 2023-01-25 16:24 | Emergency (ER) | payer MEDICARE, OTHER, SELFPAY ==
[2023-01-25] VITALS (18 sets, daily range): BP systolic 118–169; BP diastolic 68–87; PULSE 65–75; RESP 16–20; TEMP 37.1; O2SAT 94–100
--- NOTE | ~2023-01-25 | XR_ITS ---
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 RESULT: Lines, tubes, and devices: Left axillary surgical clips. Intact sternotomy wires. Cardiac valve repl acement. Multilevel vertebroplasty cement Lungs and pleura: Mild diffuse reticular opacities. Streaky bibasilar scar/atelectasis. Cardiomediastinal silhouette: Stable. Other: No acute osseous or upper abdominal finding. IMPRESSION: Pulmonary opacities may represent senescent change versus mild interstitial edema. Reviewed, dictated and finalized at location K. H OPERATOR IMPRESSION: Pulmonary opacities may represent senescent change versus mild interstitial patricia
[2023-01-25 16:51] LABS: Glucose Point of Care 332 mg/dl (65-105)
[2023-01-25 18:25] LABS: Glucose Point of Care 390 mg/dl (65-105)
--- NOTE | 2023-01-25 19:21 | ECG_ITS ---
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
[2023-01-25] MEDS: SODIUM CHLORIDE 0.9% IV 1,000 ML 999 ML IV CONT (20:04)
[2023-01-25 20:09] LABS: Basophils Absolute Auto 0.1 K/mm3 (0.0-0.1); Basophils Percent Auto 0.8 % (0.2-1.2); Eosinophils Absolute Auto 0.1 K/mm3 (0-0.3); Eosinophils Percent Auto 1.2 % (0-4.4); Hematocrit 46.5 % (37.0-47.0); Hemoglobin 14.9 g/dL (12.0-15.0); Immature Granulocyte Absolute 0.02 K/mm3 (0.00-0.031); Immature Granulocyte Percent A 0.3 % (0-0.5); Lymphocytes Absolute Auto 2.11 K/mm3 (0.9-3.2); Lymphocytes Percent Auto 32.2 % (18.3-44.2); Mean Corpuscular Volume 87.2 fl (80-100); Mean Platelet Volume 11.6 fl (7.4-10.4); Monocytes Absolute Auto 0.5 K/mm3 (0.1-0.6); Monocytes Percent Auto 7.2 % (2.6-8.5); Neutrophils Absolute Auto 3.8 K/mm3 (1.3-6.7); Neutrophils Percent Auto 58.3 % (45.5-73.1); Platelet Count Result 183 k/mm3 (150-375); Red Blood Count 5.33 M/mm3 (4.2-5.4); Red Cell Distribution Width 12.7 % (11.5-14.5); White Blood Count 6.6 K/mm3 (4.5-10.0)
[2023-01-25 20:22] LABS: Alanine Aminotransferase 19 U/L (6-35); Alkaline Phosphatase 86 U/L (38-126); Anion Gap 10 mmol/L (8-16); Aspartate Amino Transferase 24 U/L (14-36); Bilirubin,Total 0.5 mg/dL (0.2-1.3); Blood Urea Nitrogen 22 mg/dL (7-17); Calcium 8.9 mg/dL (8.4-10.2); Carbon Dioxide 22 mmol/L (22-30); Chloride 105 mmol/L (98-107); Estimated CRCL calculation 40 ml/min; Estimated Glomerular Filt Rate > 60; Glucose 375 mg/dL (65-110); Lipase 65 U/L (23-300); Magnesium 1.9 mg/dL (1.6-2.3); Potassium 4.2 mmol/L (3.4-5.0); Sodium 137 mmol/L (137-145)
[2023-01-25 20:25] LABS: INR 1.1; Prothrombin Time 14.6 Seconds (11.1-14.7)
[2023-01-25 20:26] LABS: Partial Thromboplastin Time 20.8 SECONDS (22.3-36.8)
[2023-01-25 20:28] LABS: Appearance Urine Cloudy (Clear); Bacteria Urine None Seen /hpf; Bilirubin Urine Negative (Negative); Blood Urine Negative (Negative); Color Urine Yellow (Yellow); Glucose Urine UA 3+ mg/dL (Negative); Ketones Urine Negative (Negative); Leukocyte Esterase Ur Trace LEU/UL (Negative); Nitrate Urine Negative (Negative); Non Pathogenic Casts 0-2; Protein Urine Negative (Negative); RBC Urine 0-2 /hpf (0-2); Squamous Epithelial Cell Urine Occasional /hpf (Few); Urobilinogen Urine 0.2 mg/dL (<2.0); WBC Urine 21-50 /hpf; pH Urine 5.5 (5.0-9.0)
[2023-01-25 20:30] LABS: Beta-Hydroxybutyrate/Acetoacetate 0.18 mmol/L (0.02-0.27)
[2023-01-25 20:32] LABS: Lactic Acid Reflex 1.6 mmol/L (0.7-2.0)
[2023-01-25 20:33] LABS: Troponin I < 0.012 ng/mL (0.000-0.034)
[2023-01-25 20:38] LABS: Specific Grav Ur 1.038 (1.001-1.035)
[2023-01-25 20:39] LABS: Add Urine Microscopic? YES
[2023-01-25 20:45] LABS: Influenza A QL RT-PCR Negative (Negative); Influenza B QL RT-PCR Negative (Negative); RSV RNA, RT-PCR Negative (Negative); SARS-CoV-2 RNA PCR Negative (Negative)
--- NOTE | 2023-01-25 21:06 | ED.GENADULT ---
HPI - General Adult General Chief complaint: Recheck/Abnormal Lab/Rx Stated complaint: high blood sugar Time Seen by Provider: 01/25/23 19:02 History of Present Illness HPI narrative: Patient is a 2-year-old female presents emergency department chief complaint of hyperglycemia. Patient has prior history of diabetes and is diet controlled and takes metformin the patient some has not really been checking her blood sugars at home today they checked her blood sugars and they were high the patient was sent to the emergency department for evaluation patient denies chest pain denies shortness of breath does report that she has been thirsty and has been urinating more frequently. Related Data Home Medications Medication Instructions Recorded Confirmed amlodipine 10 mg tablet 10 mg PO DAILY 02/18/19 03/21/22 aspirin 81 mg tablet,delayed 81 mg PO DAILY 02/18/19 03/21/22 release (Adult Low Dose Aspirin) carvedilol 25 mg tablet 25 mg PO BID 02/18/19 03/21/22 clopidogrel 75 mg tablet 75 mg PO DAILY 02/18/19 03/21/22 fenofibrate 160 mg tablet 160 mg PO DAILY 02/18/19 03/21/22 furosemide 20 mg tablet 60 mg PO DAILY 02/18/19 03/21/22 losartan 100 mg tablet 100 mg PO DAILY 02/18/19 03/21/22 metformin 500 mg tablet 500 mg PO BID 02/18/19 03/21/22 potassium chloride 20 mEq 20 meq PO DAILY 02/18/19 03/21/22 tablet,extended release pravastatin 40 mg tablet 40 mg PO DAILY 02/18/19 03/21/22 pyridoxine (vitamin B6) 100 mg 100 mg PO DAILY 02/18/19 03/21/22 tablet (Vitamin B-6) zolpidem 10 mg tablet 10 mg PO HS 02/18/19 03/21/22 apixaban 2.5 mg tablet (Eliquis) 2.5 mg PO BID 04/02/20 03/21/22 Allergies Allergy/AdvReac Type Severity Reaction Status Date / Time No Known Allergies Allergy Verified 10/28/22 13:48 Review of Systems Review of Systems: A 10 system review of systems was completed on the patient and is negative except for what is stated in the HPI. Nursing and ancillary documentation was reviewed. [facility] Past Medical History Medical History Arthritis Cancer of left breast (1991) Cerebrovascular accident (01/2019) Memory deficits, occasional word-finding problems, cognitive decline. Hyperlipidemia Hypertension Thoracic compression fracture Type 2 diabetes mellitus Valvular heart disease Surgical History Surgical History History of bilateral cataract extraction History of dilation and curettage (08/2001) History of heart valve replacement History of hysterectomy (2001) History of left mastectomy (1991) History of right breast biopsy History of tubal ligation (1978) Family History Family History Mother Throat cancer Father Liver cancer Sibling Diabetes mellitus Grandparent Hypertension Heart disease Social History Social History Social History: Surrogate medical decision maker: Pedrito Johnson, spouse. Code status: Full code. Smoking status: Never smoker Alcohol intake: never Substance use: never Substance use type: does not use Lack of Transportation: No Lack of Food: Never True Current Housing: I Have Housing Concerned About Future Housing: No Difficulty Paying Gas/Electric Bills: No Difficulty Paying for Meds: No Currently Unemployed: No Education: High School Diploma/GED Difficulty w/ Childcare or Family Care: No Living arrangements: with family Additional living arrangements comments: Lives with spouse in [place]. Raised 4 children. Occupation/Education: retired Gender identity (if verbalized by the patient): Female Sexual Orientation (if Verbalized by the Patient): Straight or Heterosexual Spiritual care concerns: No Agree to blood products: Yes Exam Narrative: GENERAL: Well-appearing, well
[2023-01-25 21:08] LABS: Procalcitonin 0.1 ng/mL
[2023-01-25 21:25] LABS: Glucose Point of Care 293 mg/dl (65-105)
[2023-01-25] MEDS: CEPHALEXIN 500 MG CAPSULE PO (22:16)
== END 2023-01-25 22:30 | disposition home or self-care (01) ==
PROVIDERS: Emergency Provider Emergency Medicine; PCP Internal Medicine
DX: N39.0 Urinary tract infection, site not specified (principal); E11.65 Type 2 diabetes mellitus with hyperglycemia; Z20.822 Contact with and (suspected) exposure to COVID-19; I69.911 Memory deficit following unspecified cerebrovascular disease; I69.919 Unspecified symptoms and signs involving cognitive functions following unspecified cerebrovascular disease; I10 Essential (primary) hypertension; E78.5 Hyperlipidemia, unspecified; M19.90 Unspecified osteoarthritis, unspecified site; Z95.2 Presence of prosthetic heart valve; Z85.3 Personal history of malignant neoplasm of breast; Z98.42 Cataract extraction status, left eye; Z98.41 Cataract extraction status, right eye; Z90.710 Acquired absence of both cervix and uterus; Z90.12 Acquired absence of left breast and nipple; Z79.82 Long term (current) use of aspirin; Z79.84 Long term (current) use of oral hypoglycemic drugs; Z79.01 Long term (current) use of anticoagulants
CPT/HCPCS: 36415; 71045; 80053; 81001; 82010; 82948; 83036; 83605; 83690; 83735; 84145; 84484; 85025; 85610; 85730; 87077; 87086; 87088; 87637; 93005; 96360; 99284; A9270; J7030

== ENCOUNTER 2024-02-21 09:21 | Outpatient (CLI) | payer MEDICARE, OTHER, SELFPAY ==
[2024-02-21 10:08] LABS: Anion Gap 5 mmol/L (4-12); Blood Urea Nitrogen 18 mg/dL (7-17); Calcium 8.5 mg/dL (8.4-10.2); Carbon Dioxide 29 mmol/L (22-30); Chloride 105 mmol/L (98-107); Estimated Glomerular Filt Rate 60; Glucose 198 mg/dL (65-110); Potassium 3.4 mmol/L (3.4-5.0); Sodium 139 mmol/L (137-145)
[2024-02-21 10:16] LABS: NT Pro B Type Natriuretic Pept 488 pg/mL (19.9-100)
[2024-02-21 10:17] LABS: Hemoglobin A1C 9.3 % (<5.7)
[2024-02-21 10:18] LABS: LDL Cholesterol Direct 100 mg/dL
[2024-02-21 11:13] LABS: Folic Acid 6.8 ng/mL (2.76->20)
--- OUTSIDE RECORDS SUMMARY | 2024-02-28 15:32 | XMS_ITS | Clinical Summary ---
Author Organization [facility] Address [address] [place] [address] Care Team Providers Care Accredited Legal Secretary Name Role Phone Paulette Geller MD Unavailable + Mehul Verdugo MD Primary Care Provider [phone] Allergies No known active allergies Medications acetaminophen (TYLENOL) 325 mg tabletIndicati ons:Fever,Pain Take 2 tablets (650 mg total) by mouth every 4 (four) hours as needed for pain or headaches 20 tablet 05/23/19 22 Active blood-glucose meter (True Metrix Glucose Meter) [facility] [place] Use to test blood sugar once daily DX: E11.9 non insulin dependent 1 each 06/17/19 22 Active aspirin 81 mg enteric coated tabletIndicati ons:prevention of thrombosis Take 1 tablet (81 mg total) by mouth daily 03/25/19 23 Active pen needle, diabetic 31 gauge x 5/16 needle Use to inject 1-4 times daily as directed. 100 each 4 12/07/19 23 Active OneTouch Verio test strips strip Use to test blood sugar 2 times per day.Diag code 11.9 100 strip 3 12/17/19 23 Active lancets 30 gauge misc One Touch Delica Lancets - Use to test blood sugar 2 times per day.Diag code 11.9 100 each 3 12/17/19 23 Active lancets 30 gauge misc Test sugars twice daily dx ell.9 accucheck elizabeth plus 100 each 3 01/27/20 23 Active pravastatin (PRAVACHOL) 40 mg tablet Take 1 tablet (40 mg total) by mouth daily 90 tablet 1 09/13/19 24 025 Active apixaban (Eliquis) 2.5 mg tabletIndicati ons:VTE Prophylaxis Take 1 tablet (2.5 mg total) by mouth 2 (two) times a day 180 tablet 3 09/14/19 24 Active carvediloL (COREG) 25 mg tabletIndicati ons:hypertensi on Take 1 tablet (25 mg total) by mouth 2 (two) times a day 180 tablet 3 10/10/19 24 Active insulin degludec (TRESIBA) 100 unit/mL (3 mL) pen for injection INJECT 42 UNITS UNDER THE SKIN ONCE DAILY 15 mL 3 10/13/19 24 Active losartan (COZAAR) 100 mg tabletIndicati ons:Type 2 diabetes mellitus without complication, without long-term current use of insulin (CMS/HCC) ([facility]) Take 1 tablet by mouth once daily 90 tablet 2 01/06/20 24 Active mirtazapine (REMERON) 7.5 mg tabletIndicati ons:major depressive disorder TAKE 1 TABLET EVERY NIGHT 90 tablet 3 01/09/20 24 Active furosemide (LASIX) 40 mg tablet Take 1 tablet (40 mg total) by mouth daily 40 mg a day in am , change it to every other day once leg swelling improves. 90 tablet 3 02/09/20 24 025 Active furosemide (LASIX) 20 mg tablet Take 1 tablet (20 mg total) by mouth daily and then 2 tablets by mouth (40 mg) alternating daily. 60 tablet 3 09/14/19 24 024 Discontinued(R eorder) amLODIPine (NORVASC) 5 mg tabletIndicati ons:hypertensi on Take 1 tablet (5 mg total) by mouth daily 90 tablet 1 09/27/19 24 024 Discontinued(T herapy completed) furosemide (LASIX) 40 mg tablet Take 1 tablet (40 mg total) by mouth daily and then 2 tablets by mouth (40 mg) alternating daily. 90 tablet 3 02/09/20 24 024 Discontinued(R eorder) furosemide (LASIX) 40 mg tablet Take 1 tablet (40 mg total) by mouth daily and then 2 tablets by mouth (40 mg) alternating daily. 90 tablet 3 02/09/20 24 024 Discontinued Active Problems Problem Noted Date Diagnosed Date Hospital discharge follow-up 04/02/2022 Altered mental status 04/02/2022 Frequent falls 03/17/2022 Assessment & Plan (03/17/2022 12:13 PM APPLICATION DEVELOPMENT INTERN): Likely related to progressing dementia? (reviewed prior MRI and recent CT) Will refer to Home Health for SN/PT for blood pressure monitoring and balance/gait training S/P cholecystectomy 05/27/2021 CKD (chronic kidney disease) 05/19/2021 Assessment & Plan (05/19/2021 7:52 PM CDT): Cr 1 (baseline) - avoid nephrotoxins Chronic diastolic heart failure 05/10/2021 Assessment & Plan (05/19/2021 7:52 PM CDT): EF 69% but pseudonormal diastolic function on TTE 2020 - Hold lasix Assessment & Plan (05/10/2021 9:26 AM CDT): Home PRN lasix Primary insomnia 12/31/2020 Age-related osteoporosis wit hout current pathological fracture 12/31/2020 Compression fracture of T12 vertebra 04/22/2020 CVA (cerebral vascular accident) 02/09/2019 Assessment & Plan (05/19/2021 8:51 PM CDT): On eliquis (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 Home Eliquis 2.5 mg twice a day -Heparin gtt -Restart eliquis at home tomorrow 05/13 Arteriosclerotic vascular disease 07/22/2015 Tricuspid valve disorder 07/22/2015 S/P mitral valve repair 02/10/2015 Assessment & Plan (05/19/2021 8:51 PM CDT): 2004 annuloplasty - TTE 2020 without issues Assessment & Plan (05/12/2021 9:46 AM CDT): (2014) -last Eliquis 05/09, started Hep gtt -Restart eliquis at home tomorrow 05/13 Pulmonary hypertension ([facility]) 11/24/2014 Type 2 diabetes mellitus 10/07/2014 Assessment & Plan (05/19/2021 7:51 PM CDT): A1C 5.9%. Home metformin, glimepride - follow BG on BMP Assessment & Plan (05/12/2021 7:57 AM CDT): (HgbA1C 5.9) -home metformin and Glimepride -Consistent carb diet; insulin sensitive SSI Dyslipidemia 10/07/2014 HTN (hypertension), benign 10/07/2014 Assessment & Plan (03/17/2022 12:12 PM APPLICATION DEVELOPMENT INTERN): Encouraged to get home monitor and ensure she gets all medications Follows with Cardiology Assessment & Plan (05/19/2021 7:51 PM CDT): Hold amlodipine, coreg, losartan d/t GIB Assessment & Plan (05/10/2021 9:27 AM CDT): - home Coreg and Amlodipine Mitral valve insufficiency 10/07/2014 Resolved Problems Problem Noted Date Diagnosed Date Resolved Date Pancolitis ([facility]/HCC) 05/27/2021 023 Bright red blood per rectum 05/19/2021 03/17/2022 Assessment & Plan (05/19/2021 7:54 PM CDT): P/w 3x BRBPR today. - Hgb 11.4 (12.4 a few days ago) - last BM in ED without blood - last eliquis dose 05/19 AM - CT a/p in 04/2021 with pancolonic diverticulosis - likely diverticular bleed Plan: - CBC q12 - avoid IVF d/t diastolic heart failure - GI c/s - NPO Non-intractable vomiting 05/14/2021 Drug-induced constipation 05/14/2021 Elevated LFTs 05/14/2021 03/17/2022 Abdominal pain 05/09/2021 03/17/2022 Assessment & Plan (05/12/2021 7:51 AM CDT): SEE CALCULUS OF GALLBLADDER Calculus of gallbladder with out cholecystitis without obstruction 05/09/2021 03/17/2022 Overview (05/10/2021): Added automatically from request for surgery [id number] Assessment & Plan (05/19/2021 8:46 PM CDT): Was recently here in early April for RLQ pain, found to have cholecystitis, s/p CCK on 05/11. OR cultures eventually grew out vásquez sensitive Streptococcus anginosus . She was given 4 days of augmentin after discharge. - no signs of infection or abd pain Assessment & Plan (05/12/2021 9:45 AM CDT): Presents with dull, RLQ pain, normal WBC and LFTs. CT (05/09) findings show large stone in GB neck and borderline distended GB. RUQ (05/09) showing GB distention, borderline wall thickening, impacted stone and associated biliary sludge -Case requested for Thursday 05/11 lap nadine IPAP called OR 05/11: laparoscopic cholecystectomy; small purulent spillage, cx sent 05/12: POD #1; consistent carb diet; tolerating well. Voided overnight after aguilar was removed after case. Cultures from OR as below. Dermabond overtop laparoscopic sites; clean. Plan for augmentin x4days; WBC normal, afebrile. Doximity phone call follow up scheduled. Cultures -05/11 OR gallbladder aspirate; GPC in pairs and chains Antibiotics Cefoxitin (05/11- 05/12) Augmentin (05/12 - 05/16) Pathology--pending Establishing care with qian ward kori, encounter for 12/31/2020 03/17/2022 Abnormal EKG 06/06/2017 12/31/2020 Chest pain 06/06/2017 12/31/2020 Encounters Date Type Department Care Team Description 02/21/2024 Orders Only [facility] [address] [place], [place] [address] [place] [address] Mehul Verdugo MD 02/21/[address] [facility] Mendy Torres, EDD 02/09/2024 1:15 PM APPLICATION DEVELOPMENT INTERN Office Visit [facility] [address] [place] [address] [place] [phone] Sp Madrid MD Dyslipidemia (Primary Dx) 02/09/2024 1:00 PM APPLICATION DEVELOPMENT INTERN Ancillary Procedure [facility] [address] [place] [address] [place] [phone] S/P mitral valve repair; Chronic diastolic heart failure (HCC) 12/01/2023 1:45 PM CDT Office Visit [facility] [address] [place] [phone] Mehul Verdugo MD Type 2 diabetes mellitus without complication, with long-term current use of insulin (CMS/HCC) (HCC) (Primary Dx); Dyslipidemia; HTN (hypertension), benign; Pulmonary hypertension (CMS/HCC) (HCC); Memory loss from Last 3 Months Immunizations Name Administration Dates Next Due Influenza, Quadrivalent, Hig h Dose, Preservative Free, Intrr 12/24/2021,12/18/2019 Influenza, Trivalent, Adjuvanted, Intramuscular 12/14/2017,12/13/2017 Influenza, Trivalent, High D ose, Split, Preservative Free, Intramuscular 02/09/2019 Influenza, Unspecified 12/17/2020,01/15/2015 Pneumococcal Conjugate PCV 13 08/21/2016 Pneumococcal Conjugate Pcv20 09/10/2021 Pneumococcal Conjugate, Unspecified 01/15/2015 Pneumococcal Polysaccharide PPV23 01/15/2015 ZOSTER Recombinant 09/10/2021 Surgical History Surgery Date Site/Laterality Comments MITRAL VALVE REPAIR HYSTERECTOMY MASTECTOMY Left KYPHOPLASTY THORACIC 05/23/2020 N/A Medical History Medical History Date Comments Cancer (CMS/HCC) (HCC) breast Diabetes mellitus (HCC) Hypertension Hyperlipidemia Family History Medical History Relation Name Comments Alcohol abuse Father Hypertension Maternal Grandfather Family history of hypertension - Relation: Grandfather (Added by TW Conv)/Family history of hypertension - Relation: Grandfather (Added by TW Conv) Alcohol abuse Mother Hypertension Other 1 Family history of hypertension - Relation: Grandmother (Added by TW Conv) Hypertension Other 2 Family history of hypertension - Relation: Grandmother (Added by TW Conv) Relation Name Status Comments Father Maternal Grandfather Mother Other 1 Other 2 Social History Tobacco Use Types Packs/Day Years Used Date Smoking Tobacco: Never Smokeless Tobacco: Never Alcohol Use Standard Drinks/Week Comments No 0 (1 standard drink = 0.6 oz pur e alcohol) OASIS D0700: Social Isolation Answer Da te Recorded Frequency of experiencing loneliness or isolatio n Never 02/05/2023 OASIS A1250: Transportation Answer Date Recorded Lack of Transportation (Medical) No 02/05/2023 Lack of Transportation (Non-Medical) No 02/05/2023 Patient Unable or Declines to Respond No 02/05/2023 OASIS B1300: Health Literacy Answer Abhishek e Recorded Frequency of needing help to read materials from doctor or pharmacy Always 02/05/2023 PHQ-2 Answer Date Recorded PHQ-2 Total Score (If total score is 3 or more points, staff should administer the PHQ-9) 0 05/27/2021 Comments No Sex and Gender Information Value Date Recorded Sex Assigned at Not on file Legal Sex Female 11:30 PM APPLICATION DEVELOPMENT INTERN Gender Identity Female 06/15/2023 1:45 PM CDT Sexual Orientation Straight 06/15/2023 1: 45 PM CDT Obstetrics History Last Filed Vital Signs Vital Sign Reading Time Taken Comments Blood Pressure 148/70 02/09/2024 1:04 PM APPLICATION DEVELOPMENT INTERN Pulse 80 02/09/2024 1:04 PM APPLICATION DEVELOPMENT INTERN Temperature 36.7 ??C (98 ??F) 02/09/2024 1:04 PM APPLICATION DEVELOPMENT INTERN Respiratory Rate 18 02/05/2023 11:22 AM APPLICATION DEVELOPMENT INTERN Oxygen Saturation 96% 02/09/2024 1:04 PM APPLICATION DEVELOPMENT INTERN Inhaled Oxygen Concentration - - Weight 68.9 kg (152 lb) 02/09/2024 1:04 PM APPLICATION DEVELOPMENT INTERN Height 154.9 cm (5' 1 ) 02/09/2024 1:04 PM APPLICATION DEVELOPMENT INTERN Body Mass Index 28.72 02/09/2024 1:04 PM APPLICATION DEVELOPMENT INTERN Plan of Treatment Health Maintenance Due Date Last Done Comments Dilated Eye Exam 1940 Foot Exam 1940 DTaP/Tdap/Td Vaccine (1 - Tdap) 1949 Hepatitis B Screening 1956 Well Visit 65+ 11/30/2003 Zoster Vaccine (2 of 2) 11/05/2021 09/10/2021 Depression Screening 05/27/2022 05/27/2021, 05/14/2021, 12/31/2020 Fall Risk Assessment 05/27/2022 05/27/2021, 05/22/2021, 05/14/2021, Additional history exists Osteoporosis Screening-Bone Density Scan 09/09/2022 09/09/2020, 08/30/2012 Covid-19 Vaccine (5 - 2023-2 5 season) 2023 07/20/2021, 01/01/2021, 04/29/2020, Additional history exists Influenza Vaccine (#1) 2023 , 12/17/2020, 12/18/2019, Additional history exists Lipid Panel 02/24/2024 02/23/2023, 04/29, 01/19/2022, Additional history exists Hemoglobin A1C 05/31/2024 12/01/2023, 04/0 10/2023, 02/23/2023, Additional history exists Albumin Creatinine Ratio, Urine 06/06/2024 4 eGFR 06/06/2024 06/07/2023, 01/29, 04/20/2022, Additional history exists Pneumococcal vaccine 65+ Completed 022, 08/21/2016, 01/15/2015, Additional history exists Medical Devices Implanted Type Area Trading Specialist Device Identifier Shelf Expiration Date Model / Serial / Lot [id number] Vertaplex Hv Autoplex Without Needle Delivery System Kit Bone - [id number] Implanted:Qty: 1 on 05/23/2020 at [facility] [id number] 08/27/2021 [id number] / / [id number] Procedures Procedure Name Priority Date/Time Associated Diagnosis Comments SCAN - LABS 02/21/2024 2:43 PM APPLICATION DEVELOPMENT INTERN SCAN - LABS 02/21/2024 11:16 AM APPLICATION DEVELOPMENT INTERN SCAN - LABS 02/21/2024 TRANSTHORACIC ECHO (TTE) COMPLETE W DOPPLER/CF WO CONTRAST Routine 02/09/2024 1:45 PM APPLICATION DEVELOPMENT INTERN S/P mitral valve repair Chronic diastolic heart failure (HCC) POCT HEMOGLOBIN A1C Routine 12/01/2023 1 :49 PM CDT Type 2 diabetes mellitus without complication, with long-term current use of insulin (CMS/HCC) (HCC) ALBUMIN CREATININE RATIO, URINE Routine 06/07/2023 12:06 PM CDT Type 2 diabetes mellitus without complication, with long-term current use of insulin (CMS/HCC) (HCC) Age-related osteoporosis without current pathological fracture HTN (hypertension), benign S/P mitral valve repair 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 artery (HCC) COMPREHENSIVE METABOLIC PANEL Routine 06/07/2023 11:59 AM CDT Type 2 diabetes mellitus without complication, with long-term current use of insulin (CMS/HCC) (HCC) Age-related osteoporosis without current pathological fracture HTN (hypertension), benign S/P mitral valve repair 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 artery (HCC) LIPID PANEL Routine 02/23/2023 9:53 AM APPLICATION DEVELOPMENT INTERN Dyslipidemia DEXA AXIAL SKELETON BONE DENSITY 1 OR MORE SITES Schedule Routine, Read Routine (OP Routine) 09/09/2020 10:40 AM CDT Age related osteoporosis, unspecified pathological fracture presence Post-menopausal Abnormal bone density screening from Last 3 Months or Most Recently Relevant to Health Maintenance Results * SCAN - LABS (02/21/2024 2:43 PM APPLICATION DEVELOPMENT INTERN) Mehul Verdugo MD Final Result * SCAN - LABS (02/21/2024 11:16 AM APPLICATION DEVELOPMENT INTERN) Mehul Verdugo MD Final Result * SCAN - LABS (02/21/2024) Mendy Torres RN Edite d Result - Final * TRANSTHORACIC ECHO (TTE) COMPLETE W DOPPLER/CF WO CONTRAST (02/09/2024 1:45 PM APPLICATION DEVELOPMENT INTERN) LV EF 60 % CARDIOREPORT Anatomical Region Laterality Modality Ultrasound 02/09/2024 1:00 PM APPLICATION DEVELOPMENT INTERN Narrative 02/09/2024 9:30 PM APPLICATION DEVELOPMENT INTERN Patient name: Yuliana Singh Date of test: 02/09/2024 Type of test: TTE w/Doppler [facility] #: [id number] Date of : 1940 (F) Camera Repair Technician: Capri Prado DANISHA Referring Physician: EIM CELAYA MD Contrast Agent: Contrast Administered by: Supervised/Interpreted by: Sp Madrid MD Diagnosis: Location: [facility] Reason for test: S/P MV [id number] annuloplasty Physio II ring MV Structure: s/p MV repair, ?MV Motion: Normal, ?? Mitral Annulus: annuloplasty AV Structure: tricuspid and is Normal, ?? AV Motion: Normal Aotic root: Normal, ?TM: c/w annuloplasty ring, ?? PV: Normal Valvular Vegetations: none seen, ?Mass/Thrombi: none seen RA: Normal Measurements: ?M-Mode ?Normal ? Aotic Root: ? <3.8 ? LA: ? <3.8 ? RV: ? <2.8 ? LV(ED): ? <5.7 ? LV(ES): ? Variable ?2D Linear Normal ? Aotic Root: 2.7 cm ?<3.6 ? Ao Indexed: 1.6 cm/M2 <2.0 ? LA: ? 4.0 cm ?<3.8 ? RV: ? 2.4 cm ?<4.2 ? LV(ED): ? 4.1 cm ?<5.3 ? LV(ES): ? 2.7 cm ?<3.5 ?2D Vol. ?? Normal ?Indexed ?? Indexed Normal RA: ? 33.0 ml ? 19.6 ml/M2 ?9-33 ? LA: ? 77.0 ml ? 45.8 ml/M2 ?16-34 ? RV: ? <11.6 ? LV(ED): ? 57.0 ml ?? 46-106 ?33.9 ml/M2 ?<62 ? LV(ES): ? 23.0 ml ?? 14-42 ? 13.7 ml/M2 ?<25 ?3D Vol. ? Indexed Normal LV(ED): ?<62 ? LV(ES): ?<24 ? LV EF: 60 % ?? (Normal: >=54%) ?? LV Septum: 0.9 cm ?(Normal: <0.9 cm) Wall Motion Scoring (1=Normal 2=Hypo 3=Akinetic 4=Dyskin./Aneurysm 0=Not visualized) Parasternal Long [place]:MAS=1 BAS=1 MIL=1 ESTUARDO=1 Parasternal Short [place]:MAS=1 MIS=1 NV=1 MIL=1 MAL=1 MA=1 Apical 4 Chambers:=1 MIS=1 BIS=1 BAL=1 MAL=1 AL=1 AC=1 Apical 2 Chambers:AI=1 NV=1 BI=1 BA=1 MA=1 AA=1 AC=1 LV Global Longitudinal Strain: -14.3% ??(Normal <-17%) RV Global Longitudinal Strain: LV Function: Normal LV Ejection Fraction, ??(EF=54-74%) RV Function: Normal Septal Motion: Normal Pericardial Effusion: none seen Atrial Septum: Normal DOPPLER/COLOR FLOW DOPPLER RESULTS: Diastolic Function: Pseudo normal Tricuspid Valve: normal TV Pulmonic Valve: normal PV AV Regurgitation: Mild AR AV Stenosis: no AV Area: ??cm2 AV Pressure Gradient (mmHg): Mean: 0, Peak:0 MV Regurgitation: No MR seen MV Stenosis: no MS MV Area: ??cm2 MV Pressure Gradient (mmHg): Mean: 0 MV ERO: ??cm Regurg. Vol.: ??ml/beat Regurg. Frac.: ??% PA Pressure: ??mmHg DOPPLER/COLOR FOLOW DOPPLER COMMENTS: Mild AR, s/p MV repair with annuloplasty ring ( mean gradient 3.89 mm of Hg )No MR seen, no , no MS, normal TV, normal PV. Diastolic function: Pseudo normal SUMMARY: LA is moderately dilated. Normal RV cavity size. LV cavity size is normal. Normal LV wall thickness/mass. Normal Inferior vena cava. Normal aorta. ??Mild AR, s/p MV repair with annuloplasty ring ( mean gradient 3.89 mm of Hg )No MR seen, no , no MS, ??s/p TV annuloplasty ring .No TR/TS noted., normal PV. Diastolic function: Pseudo normal. LVEF 60%.Reduced global LV myocardial longitudinal function and strain pattern. Confirmed on ??02/09/2024 - 21:30:28 by Sp Madrid MD By signing this report, the attending crm technical lead certifies that he or she has personally supervised and interpreted the echocardiogram and has reviewed and or edited and agrees with the written comments contained within the report. Procedure Note Sp Madrid MD - 02/09/2024 Patient name: Yuliana Singh Date of test: 02/09/2024 Type of test: TTE w/Doppler [facility] #: 0 Date of : 1940 (F) Camera Repair Technician: Capri Prado [facility] Referring Physician: EMI CELAYA MD Contrast Agent: Contrast Administered by: Supervised/Interpreted by: Sp Madrid MD Diagnosis: Location: [facility] Reason for test: S/P MV [id number] annuloplasty Physio II ring MV Structure: s/p MV repair, MV Motion: Normal, Mitral Annulus: annuloplasty AV Structure: tricuspid and is Normal, AV Motion: Normal Aotic root: Normal, TM: c/w annuloplasty ring, PV: Normal Valvular Vegetations: none seen, Mass/Thrombi: none seen RA: Normal Measurements: M-Mode Normal Aotic Root: <3.8 LA: <3.8 RV: <2.8 LV(ED): <5.7 LV(ES): Variable 2D Linear Normal Aotic Root: 2.7 cm <3.6 Ao Indexed: 1.6 cm/M2 <2.0 LA: 4.0 cm <3.8 RV: 2.4 cm <4.2 LV(ED): 4.1 cm <5.3 LV(ES): 2.7 cm <3.5 2D Vol. Normal Indexed Indexed Normal RA: 33.0 ml 19.6 ml/M2 9-33 LA: 77.0 ml 45.8 ml/M2 16-34 RV: <11.6 LV(ED): 57.0 ml 46-106 33.9 ml/M2 <62 LV(ES): 23.0 ml 14-42 13.7 ml/M2 <25 3D Vol. Indexed Normal LV(ED): <62 LV(ES): <24 LV EF: 60 % (Normal: >=54%) LV Septum: 0.9 cm (Normal: <0.9 cm) Wall Motion Scoring (1=Normal 2=Hypo 3=Akinetic 4=Dyskin./Aneurysm 0=Not visualized) Parasternal Long [place]:MAS=1 BAS=1 MIL=1 ESTUARDO=1 Parasternal Short [place]:MAS=1 MIS=1 NV=1 MIL=1 MAL=1 MA=1 Apical 4 Chambers:=1 MIS=1 BIS=1 BAL=1 MAL=1 AL=1 AC=1 Apical 2 Chambers:AI=1 NV=1 BI=1 BA=1 MA=1 AA=1 AC=1 LV Global Longitudinal Strain: -14.3% (Normal <-17%) RV Global Longitudinal Strain: LV Function: Normal LV Ejection Fraction, (EF=54-74%) RV Function: Normal Septal Motion: Normal Pericardial Effusion: none seen Atrial Septum: Normal DOPPLER/COLOR FLOW DOPPLER RESULTS: Diastolic Function: Pseudo normal Tricuspid Valve: normal TV Pulmonic Valve: normal PV AV Regurgitation: Mild AR AV Stenosis: no AV Area: cm2 AV Pressure Gradient (mmHg): Mean: 0, Peak:0 MV Regurgitation: No MR seen MV Stenosis: no MS MV Area: cm2 MV Pressure Gradient (mmHg): Mean: 0 MV ERO: cm Regurg. Vol.: ml/beat Regurg. Frac.: % PA Pressure: mmHg DOPPLER/COLOR FOLOW DOPPLER COMMENTS: Mild AR, s/p MV repair with annuloplasty ring ( mean gradient 3.89 mm of Hg )No MR seen, no , no MS, normal TV, normal PV. Diastolic function: Pseudo normal SUMMARY: LA is moderately dilated. Normal RV cavity size. LV cavity size is normal. Normal LV wall thickness/mass. Normal Inferior vena cava. Normal aorta. Mild AR, s/p MV repair with annuloplasty ring ( mean gradient 3.89 mm of Hg )No MR seen, no , no MS, s/p TV annuloplasty ring .No TR/TS noted., normal PV. Diastolic function: Pseudo normal. LVEF 60%.Reduced global LV myocardial longitudinal function and strain pattern. Confirmed on 02/09/2024 - 21:30:28 by Sp Madrid MD By signing this report, the attending crm technical lead certifies that he or she has personally supervised and interpreted the echocardiogram and has reviewed and or edited and agrees with the written comments contained within the report. Emi Celaay REINFORCEMENT MAKER CV ECHO PROCEDURES Final Resu lt * (ABNORMAL) POCT hemoglobin A1c (12/01/2023 1:49 PM CDT) Hemoglobin A1C, POC 9.1 4.0 - 5.6 % Blood 12/01/2023 1:49 PM CDT Mehul Verdugo MD POINT OF CARE TEST ORDERABLES Final Result * Albumin Creatinine Ratio, Urine (06/07/2023 12:06 PM CDT) Creatinine ur 39.6 Not Estab. mg/dL [facility] - 01 Microalbumin, ur 6.8 Not Estab. ug/mL [facility] - 01 Microalbumin/cre at ratio 17 0 - 29 mg/g creat [facility] - 01 Comment: ? Normal: ?0 - ??29 ? Moderately increased: 30 - 300 ? Severely increased: ? >300 Urine 06/07/2023 12:0 6 PM CDT 06/07/2023 Narrative [facility] - 06/08/2023 9:12 AM CDT Performed at: ??01 - [facility] [address], [place], [place] ??[id number] Roll Former: Axel Hillman PhD, Phone: ??[phone] us Mehul Verdugo MD LAB URINE ORDERABLES Final Re sult [facility] * (ABNORMAL) Comprehensive metabolic panel (06/07/2023 11:59 AM CDT) Glucose 166(H) 70 - 99 mg/dL [facility] - 01 BUN 19 8 - 27 mg/dL [facility] - 01 Creatinine, Serum 1.01(H) 0.57 - 1.00 mg/dL [facility] - 01 eGFR 55(L) >59 mL/min/1.7 3 [facility] - 01 BUN/creat ratio 19 12 - 28 [facility] - 01 Sodium 140 134 - 144 mmol/L [facility] - 01 Potassium, sr 4.7 3.5 - 5.2 mmol/L [facility] - 01 Chloride 108(H) 96 - 106 mmol/L [facility] - 01 CO2 18(L) 20 - 29 mmol/L [facility] - 01 Calcium 8.9 8.7 - 10.3 mg/dL [facility] - 01 Protein, sr 6.5 6.0 - 8.5 g/dL [facility] - 01 Albumin 4.0 3.7 - 4.7 g/dL [facility] - 01 Globulin, Total 2.5 1.5 - 4.5 g/dL [facility] - 01 A/G Ratio 1.6 1.2 - 2.2 [facility] - 01 Bilirubin, Total 0.3 0.0 - 1.2 mg/dL [facility] - 01 Alk phos 65 44 - 121 IU/L [facility] - 01 AST 20 0 - 40 IU/L [facility] - 01 ALT 11 0 - 32 IU/L [facility] - 01 Blood 06/07/2023 11:5 9 AM CDT 06/07/2023 Narrative [facility] - 06/08/2023 12:11 PM CDT Performed at: ??01 - [facility] [address], [place], [place] ??[id number] Roll Former: Axel Hillman PhD, Phone: ??[phone] us Mehul Verdugo MD LAB BLOOD ORDERABLES Final Re sult [facility] - 01 * (ABNORMAL) Lipid panel (02/23/2023 9:53 AM APPLICATION DEVELOPMENT INTERN) Cholesterol 159 30 - 199 mg/dL [facility] Comment: Interpretive Data Ages < or = 19 years ??Acceptable: ? <170 mg/dL ??Borderline high: ??170-199 mg/dL ??High: ? >or= 200 mg/dL Ages > or = 20 years ??Desirable: ?<200 mg/dL ??Borderline high: ??200-239 mg/dL ??High: ? >or= 240 mg/dL Literature References: 1. Expert Panel on Integrated Guidelines for Cardiovascular Health and Risk Reduction in Children and Adolescents. Pediatrics 2011;128:S213 2. NCEP Expert Panel. Circulation 2004;110:227 Current Interpretive Data was last revised on 2017. Triglycerides 321(H) <=149 mg/dL [facility] Comment: Interpretive Data Ages < or = 9 years ??Acceptable: ? <75 mg/dL ??Borderline high: ??75-99 mg/dL ??High: ? >or= 100 mg/dL Ages 10 to 20 years ??Acceptable: ? <90 mg/dL ??Borderline high: ??90-129 mg/dL ??High: ? >or= 130 mg/dL Ages > or = 20 years ??Desirable: ?<150 mg/dL ??Borderline high: ??150-199 mg/dL ??High: ? 200-499 mg/dL ?Very high: ?? >or= 499 mg/dL Literature References: 1. Expert Panel on Integrated Guidelines for Cardiovascular Health and Risk Reduction in Children and Adolescents. Pediatrics 2011;128:S213 2. NCEP Expert Panel. Circulation 2004;110:227 Current Interpretive Data was last revised on 2017. HDL 29(L) >=40 mg/dL [facility] Comment: Interpretive Data Ages < or = 19 years ??Acceptable: ? >45 mg/dL ??Borderline low: ?? 40-45 mg/dL ??Low: ? <40 mg/dL Ages > or = 20 years ??Desirable: ?>or= 60 mg/dL ??Low: ? <40 mg/dL Literature References: 1. Expert Panel on Integrated Guidelines for Cardiovascular Health and Risk Reduction in Children and Adolescents. Pediatrics 2011;128:S213 2. NCEP Expert Panel. Circulation 2004;110:227 Current Interpretive Data was last revised on 2017. LDL, calculated 66 <=129 mg/dL [facility] Comment: Interpretive Data Ages < or = 19 years ??Acceptable: ? <110 mg/dL ??Borderline high: ??110-129 mg/dL ??High: ?>or= 130 mg/dL Ages > or = 20 years ??Optimal: ? <100 mg/dL ??Near optimal: ?100-129 mg/dL ??Borderline high: ?? 130-159 mg/dL ??High: ?>160 mg/dL Literature References: 1. Expert Panel on Integrated Guidelines for Cardiovascular Health and Risk Reduction in Children and Adolescents. Pediatrics 2011;128:S213 2. NCEP Expert Panel. Circulation 2004;110:227 Current Interpretive Data was last revised on 2017. Non-HDL Cholesterol 130 mg/dL [facility] Comment: Interpretive Data Ages < or = 19 years ??Acceptable: ?<120 mg/dL ??Borderline high: ??120-144 mg/dL ??High: ?>145 mg/dL Ages > or = 20 years ??When triglycerides are >200 mg/dL, Non-HDL cholesterol is a secondary target of ? therapy with treatment goals that are 30 mg/dL greater than the LDL cholesterol target. ? Literature References: 1. Expert Panel on Integrated Guidelines for Cardiovascular Health and Risk Reduction in Children and Adolescents. Pediatrics 2011;128:S213 2. NCEP Expert Panel. Circulation 2004;110:227 Current Interpretive Data was last revised on 2017. Chol/HDL ratio 5 [facility] Blood 02/23/2023 9:53 AM APPLICATION DEVELOPMENT INTERN 02/23/2023 11:37 AM APPLICATION DEVELOPMENT INTERN us Emi Celaya [employer] [facility] BLOOD ORDERABLES Final Re sult [facility] [place] [address] * Dexa Axial Skeleton Bone Density 1 or 2 Site (09/09/2020 10:40 AM CDT) Anatomical Region Laterality Modality Body N/A Digital Radiogra phy 09/09/2020 10:4 4 AM CDT Impressions 09/09/2020 5:57 PM CDT ?? 1. The bone mineral density of the lumbar spine is normal. There has been a statistically significant increase in bone mineral density since the baseline examination of 05/23/1996. ??Mild degenerative changes are present diffusely in the lumbar spine, likely causing overestimate of lumbar spine bone density, and likely accounting for the apparent increase since the baseline study. ?? 2. The bone mineral density of the left femoral neck is moderately decreased. There has been a statistically significant decrease in bone mineral density since the baseline examination of 05/23/1996. ?? 3. The bone mineral density of the left total hip is mildly decreased. There has been a statistically significant decrease in bone mineral density since the baseline examination of 05/23/1996. ?? 4. Overall, the above findings are diagnostic of osteoporosis by WHO criteria. 5. Based on the FRAX fracture risk model, the 10-year probability for major osteoporotic fracture is 21% and that for hip fracture is 8.2%. This 10-year fracture risk estimate was calculated using the risk factors noted in the history above, along with the femoral neck bone density. ??FRAX is intended to help guide treatment decisions in men over age 50 and postmenopausal women with low bone mass (osteopenia). The National Osteoporosis Foundation (NOF) recommends that FDA-approved medical therapies be considered in postmenopausal women and men age 50 years and older with osteoporosis and those with low bone mass whose 10-year fracture probability by FRAX is >= 20% for major osteoporotic fracture or >= 3% for hip fracture. However, all treatment decisions require clinical judgment and consideration of individual patient factors, ??including patient preferences, comorbidities, previous drug use, risk factors not captured in the FRAX model (e.g., frailty, falls, vitamin D deficiency, increased bone turnover, interval significant decline in bone density) and possible under- or overestimation of fracture risk by FRAX. General comments regarding interpretation of bone density measurements: ? A) ??In children, premenopausal woman and males under age 50 not at increased risk for fractures only Z-scores, not T-scores are used to indicate risk. ??A Z-score above -2.0 is defined as within the expected range for age and Z-score at or less than -2.0 is below the expected range for age . ??A Z-score below the expected range for age in a patient with recent fractures and/or chronic corticosteroid treatment is consistent with a diagnosis of osteoporosis. ? B) ??In post menopausal women and males over 50, comparison of the measured bone mineral density with the average value in young normal subjects (the T-score ) has been found to be useful in assessing fracture risk. ??Fracture risk approximately doubles for each 1.0 standard deviation (SD) in individual's hip or spine bone mineral density is below the average value of young normal subjects. ??The World Health Organization (WHO) has defined T-scores of -1.0 to -2.5 as diagnostic of low bone mass (OSTEOPENIA), and T-scores of -2.5 or lower to be diagnostic of OSTEOPOROSIS, based on the site of lowest bone density. ? Note that there will be a change in reporting format and reference databases as patients move from the younger population (group A) to the older population (group B) The National Osteoporosis Foundation (www.nof.org) recommends adequate intake of calcium and vitamin D and regular weight-bearing exercise in all patients. ??They recommend pharmacologic treatment in postmenopausal women and men age 50 and older presenting with any of the following: ? 1) ? Osteoporosis, after appropriate evaluation to exclude secondary causes. ? 2) ? A hip or vertebral (clinical or radiographic) fracture, regardless of the bone density. ? 3) ? Low bone mass (Osteopenia) and one or more of: other prior fractures, secondary causes associated with high risk of fracture (such as glucocorticoid use or total immobilization), or computed high risk of fracture (10-yr probability of hip fracture >= 3% or a 10-yr probability of any major osteoporosis-related fracture >= 20% based on the [place].-adapted WHO algorithm), available at http://www.shef.ac.uk/FRAX). Dictated by: Skinny Olivas The radiology attending physician has personally reviewed this study, and had reviewed and/or edited this written report and agrees with it. Electronically signed by: Junior Chambers M.D. Narrative 09/09/2020 5:57 PM CDT BONE DENSITOMETRY OF THE SPINE AND HIP ?? DATE OF STUDY: ??09/09/2020 ?? HISTORY: ??79-year-old postmenopausal woman with hysterectomy and removal ovaries at age 50, and osteoporosis and compression fractures of the T12 and L1 vertebral bodies. ??She is not being treated with bone medications. ??Evaluate bone mineral density. ?? Additional risk factors for fracture: none. ?? FINDINGS (SPINE): L1 was excluded due to post kyphoplasty changes. The bone mineral density of L2, L3, L4 was assessed by dual-energy x-ray absorptiometry. The average bone mineral density within this region is 1.064 gm/sq-cm. This is 2.7 standard deviations above the mean of the average bone mineral density for age- and gender-matched subjects (the Z-score). It is 0.1 standard deviations below the mean peak bone mineral density in young adults (the T-score). ?? FINDINGS (FEMORAL NECK): The bone mineral density of the left femoral neck was assessed by dual-energy x-ray absorptiometry. The average bone mineral density within the femoral neck region is 0.530 gm/sq-cm. This is 0.5 standard deviations below the mean of the average bone mineral density for age- and gender-matched subjects (the Z-score). It is 2.9 standard deviations below the mean peak bone mineral density in young adults (the T-score). ?? FINDINGS (TOTAL HIP): The bone mineral density of the left hip was assessed by dual-energy x-ray absorptiometry. The average bone mineral density within the total hip region is 0.729 gm/sq-cm. This is 0.4 standard deviations above the mean of the average bone mineral density for age- and gender-matched subjects (the Z-score). It is 1.7 standard deviations below the mean peak bone mineral density in young adults (the T-score). A sclerotic lesion is again seen inferior to the left greater trochanter, substantially unchanged since 2012, and likely benign. ?? SUMMARY OF CURRENT RESULTS: Region ? BMD ?T-score ??Z-score ?? AP Spine (L2, L3, L4) ? 1.064 ?? -0.1 ?2.7 ? Femoral Neck (Left) ?0.530 ?? -2.9 ? -0.5 ? Total Hip (Left) ? 0.729 ?? -1.7 ?0.4 ? COMPARISON WITH PREVIOUS RESULTS Region ? Age ??BMD ?? T-score ??BMD Change ? BMD Change Exam Date ? g/cm2 ?vs Baseline ?vs Previous AP Spine (L2-L4) 09/09/2020 ??79 ?1.064 ?-0.1 ?11.7%# ? 0.6%# 08/30/2012 ??71 ?1.058 ?-0.2 ?11.0%# ? 5.0%* 07/19/2007 ??66 ?1.007 ?-0.7 ? 5.7%# ?-2.7%* 06/16/2005 ??64 ?1.035 ?-0.4 ? 8.6%# ? 5.2%# 08/17/1999 ??58 ?0.984 ?-0.9 ? 3.2%* ? 3.2%* 05/23/1996 ??55 ?0.953 ?-1.1 ? Femoral Neck(Left) 09/09/2020 ??79 ?0.530 ?-2.9 ? -22.9%# ? -19.3%# 08/30/2012 ??71 ?0.657 ?-1.7 ?-4.4%# ?-0.9% ?? 07/19/2007 ??66 ?0.663 ?-1.7 ?-3.5%# ?-4.2% ?? 06/16/2005 ??64 ?0.692 ?-1.4 ? 0.8%# ?-1.9%# 04/25/2002 ??61 ?0.706 ?-1.3 ? 2.7% ?2.7% ?? 08/17/1999 ??58 ?0.688 ?-1.5 ? 0.1% ? -0.4% ?? 06/06/1997 ??56 ?0.690 ?-1.4 ? 0.4% ?0.4% ?? 05/23/1996 ??55 ?0.687 ?-1.5 ? Total Hip(Left) 09/09/2020 ??79 ?0.729 ?-1.7 ? -15.0%# ?-9.5%# 08/30/2012 ??71 ?0.806 ?-1.1 ?-6.0%# ?-6.0%* 07/19/2007 ??66 ?0.858 ?-0.7 ? 0.0%# ?-0.1% ?? 06/16/2005 ??64 ?0.858 ?-0.7 ? 0.1%# ?-2.9%# 04/25/2002 ??61 ?0.884 ?-0.5 ? 3.1% ?2.5% ?? 08/17/1999 ??58 ?0.862 ?-0.7 ? 0.5% ?2.4% ?? 06/06/1997 ??56 ?0.842 ?-0.8 ?-1.8% ? -1.8% ?? 05/23/1996 ??55 ?0.857 ?-0.7 ? *Denotes significance at 95% confidence level # Denotes dissimilar scan types or analysis methods ?? Procedure Note Junior Chambers MD - 09/09/2020 BONE DENSITOMETRY OF THE SPINE AND HIP DATE OF STUDY: 09/09/2020 HISTORY: 79-year-old postmenopausal woman with hysterectomy and removal ovaries at age 50, and osteoporosis and compression fractures of the T12 and L1 vertebral bodies. She is not being treated with bone medications. Evaluate bone mineral density. Additional risk factors for fracture: none. FINDINGS (SPINE): L1 was excluded due to post kyphoplasty changes. The bone mineral density of L2, L3, L4 was assessed by dual-energy x-ray absorptiometry. The average bone mineral density within this region is 1.064 gm/sq-cm. This is 2.7 standard deviations above the mean of the average bone mineral density for age- and gender-matched subjects (the Z-score). It is 0.1 standard deviations below the mean peak bone mineral density in young adults (the T-score). FINDINGS (FEMORAL NECK): The bone mineral density of the left femoral neck was assessed by dual-energy x-ray absorptiometry. The average bone mineral density within the femoral neck region is 0.530 gm/sq-cm. This is 0.5 standard deviations below the mean of the average bone mineral density for age- and gender-matched subjects (the Z-score). It is 2.9 standard deviations below the mean peak bone mineral density in young adults (the T-score). FINDINGS (TOTAL HIP): The bone mineral density of the left hip was assessed by dual-energy x-ray absorptiometry. The average bone mineral density within the total hip region is 0.729 gm/sq-cm. This is 0.4 standard deviations above the mean of the average bone mineral density for age- and gender-matched subjects (the Z-score). It is 1.7 standard deviations below the mean peak bone mineral density in young adults (the T-score). A sclerotic lesion is again seen inferior to the left greater trochanter, substantially unchanged since 2012, and likely benign. SUMMARY OF CURRENT RESULTS: Region BMD T-score Z-score AP Spine (L2, L3, L4) 1.064 -0.1 2.7 Femoral Neck (Left) 0.530 -2.9 -0.5 Total Hip (Left) 0.729 -1.7 0.4 COMPARISON WITH PREVIOUS RESULTS Region Age BMD T-score BMD Change BMD Change Exam Date g/cm2 vs Baseline vs Previous AP Spine (L2-L4) 09/09/2020 79 1.064 -0.1 11.7%# 0.6%# 08/30/2012 71 1.058 -0.2 11.0%# 5.0%* 07/19/2007 66 1.007 -0.7 5.7%# -2.7%* 06/16/2005 64 1.035 -0.4 8.6%# 5.2%# 08/17/1999 58 0.984 -0.9 3.2%* 3.2%* 05/23/1996 55 0.953 -1.1 Femoral Neck(Left) 09/09/2020 79 0.530 -2.9 -22.9%# -19.3%# 08/30/2012 71 0.657 -1.7 -4.4%# -0.9% 07/19/2007 66 0.663 -1.7 -3.5%# -4.2% 06/16/2005 64 0.692 -1.4 0.8%# -1.9%# 04/25/2002 61 0.706 -1.3 2.7% 2.7% 08/17/1999 58 0.688 -1.5 0.1% -0.4% 06/06/1997 56 0.690 -1.4 0.4% 0.4% 05/23/1996 55 0.687 -1.5 Total Hip(Left) 09/09/2020 79 0.729 -1.7 -15.0%# -9.5%# 08/30/2012 71 0.806 -1.1 -6.0%# -6.0%* 07/19/2007 66 0.858 -0.7 0.0%# -0.1% 06/16/2005 64 0.858 -0.7 0.1%# -2.9%# 04/25/2002 61 0.884 -0.5 3.1% 2.5% 08/17/1999 58 0.862 -0.7 0.5% 2.4% 06/06/1997 56 0.842 -0.8 -1.8% -1.8% 05/23/1996 55 0.857 -0.7 *Denotes significance at 95% confidence level # Denotes dissimilar scan types or analysis methods IMPRESSION: 1. The bone mineral density of the lumbar spine is normal. There has been a statistically significant increase in bone mineral density since the baseline examination of 05/23/1996. Mild degenerative changes are present diffusely in the lumbar spine, likely causing overestimate of lumbar spine bone density, and likely accounting for the apparent increase since the baseline study. 2. The bone mineral density of the left femoral neck is moderately decreased. There has been a statistically significant decrease in bone mineral density since the baseline examination of 05/23/1996. 3. The bone mineral density of the left total hip is mildly decreased. There has been a statistically significant decrease in bone mineral density since the baseline examination of 05/23/1996. 4. Overall, the above findings are diagnostic of osteoporosis by WHO criteria. 5. Based on the FRAX fracture risk model, the 10-year probability for major osteoporotic fracture is 21% and that for hip fracture is 8.2%. This 10-year fracture risk estimate was calculated using the risk factors noted in the history above, along with the femoral neck bone density. FRAX is intended to help guide treatment decisions in men over age 50 and postmenopausal women with low bone mass (osteopenia). The National Osteoporosis Foundation (NOF) recommends that FDA-approved medical therapies be considered in postmenopausal women and men age 50 years and older with osteoporosis and those with low bone mass whose 10-year fracture probability by FRAX is >= 20% for major osteoporotic fracture or >= 3% for hip fracture. However, all treatment decisions require clinical judgment and consideration of individual patient factors, including patient preferences, comorbidities, previous drug use, risk factors not captured in the FRAX model (e.g., frailty, falls, vitamin D deficiency, increased bone turnover, interval significant decline in bone density) and possible under- or overestimation of fracture risk by FRAX. General comments regarding interpretation of bone density measurements: A) In children, premenopausal woman and males under age 50 not at increased risk for fractures only Z-scores, not T-scores are used to indicate risk. A Z-score above -2.0 is defined as within the expected range for age and Z-score at or less than -2.0 is below the expected range for age . A Z-score below the expected range for age in a patient with recent fractures and/or chronic corticosteroid treatment is consistent with a diagnosis of osteoporosis. B) In post menopausal women and males over 50, comparison of the measured bone mineral density with the average value in young normal subjects (the T-score ) has been found to be useful in assessing fracture risk. Fracture risk approximately doubles for each 1.0 standard deviation (SD) in individual's hip or spine bone mineral density is below the average value of young normal subjects. The World Health Organization (WHO) has defined T-scores of -1.0 to -2.5 as diagnostic of low bone mass (OSTEOPENIA), and T-scores of -2.5 or lower to be diagnostic of OSTEOPOROSIS, based on the site of lowest bone density. Note that there will be a change in reporting format and reference databases as patients move from the younger population (group A) to the older population (group B) The National Osteoporosis Foundation (www.nof.org) recommends adequate intake of calcium and vitamin D and regular weight-bearing exercise in all patients. They recommend pharmacologic treatment in postmenopausal women and men age 50 and older presenting with any of the followin) Osteoporosis, after appropriate evaluation to exclude secondary causes. 2) A hip or vertebral (clinical or radiographic) fracture, regardless of the bone density. 3) Low bone mass (Osteopenia) and one or more of: other prior fractures, secondary causes associated with high risk of fracture (such as glucocorticoid use or total immobilization), or computed high risk of fracture (10-yr probability of hip fracture >= 3% or a 10-yr probability of any major osteoporosis-related fracture >= 20% based on the [place].-adapted WHO algorithm), available at http://www.shef.ac.uk/FRAX). Dictated by: Skinny Olivas The radiology attending physician has personally reviewed this study, and had reviewed and/or edited this written report and agrees with it. Electronically signed by: Junior Chambers M.D. Cassius Chambers MD IM DXA PROCEDURES Final Resul t from Last 3 Months or Most Recently Relevant to Health Maintenance Insurance [employer] CHOICE MEDICARE PPO [employer] CHOICE MEDICARE PPO [facility] [employer] CHOICE MEDICARE PPO [facility] HU[employer] CHOICE MEDICARE PPO Advance Directives For more information, please contact: [phone] * Full Code (Latest Code Status on File) Date Activated Date Inactivated Comments 05/19/2021 10:03 PM 05/22/2021 4:14 PM * Full Code Date Activated Date Inactivated Comments 05/10/2021 1:44 AM 05/12/2021 5:35 PM * Full Code Date Activated Date Inactivated Comments 05/23/2020 12:27 PM 05/23/2020 5:35 PM * Full Code Date Activated Date Inactivated Comments 02/09/2019 2:42 PM 02/11/2019 4:52 PM Care Teams Accredited Legal Secretary Relationship Specialty Start Date End Date Mehul Verdugo MD [id number] [facility] [address] [place] [address] PCP - General Internal Medicine 09/10/21 Paulette Geller MD [facility] [address] [place] [address] Consulting Physician Gastroenterology 05/22/21
--- OUTSIDE RECORDS SUMMARY | 2024-02-28 15:32 | XMS_ITS | Referral Summary ---
Author Organization [facility] Address [address] [place] [id number] Care Team Providers Care Human Resources Technician Name Role Phone Paulette Geller MD Unavailable + Mehul Verdugo MD Primary Care Provider Encounters Date Type Department Care Team Description 02/21/2024 Orders Only [facility] [address] [place] [phone] Mehul Verdugo MD 02/21/2024 Orders Only [facility] Mendy Torres RN 02/09/2024 1:15 PM SQUIRREL MAN Office Visit [address] [phone] Sp Madrid MD Dyslipidemia (Primary Dx) 02/09/2024 1:00 PM SQUIRREL MAN Ancillary Procedure [address] [phone] S/P mitral valve repair; Chronic diastolic heart failure (HCC) 12/01/2023 1:45 PM CDT Office Visit [facility] [address] [place] [phone] Mehul Verdugo MD Type 2 diabetes mellitus without complication, with long-term current use of insulin (CMS/[facility]) ([facility]) (Primary Dx); Dyslipidemia; HTN (hypertension), benign; Pulmonary hypertension (CMS/HCC) ([facility]); Memory loss from Last 3 Months Allergies No known active allergies Medications acetaminophen (TYLENOL) 325 mg tabletIndicati ons:Fever,Pain Take 2 tablets (650 mg total) by mouth every 4 (four) hours as needed for pain or headaches 20 tablet 05/23/19 22 Active blood-glucose meter (True Metrix Glucose Meter) [facility] Use to test blood sugar once daily [...] 3 12/17/19 23 Active lancets [facility] Delica Lancets - Use to [...] without long-term current use of insulin (CMS/HCC) (HCC) Take 1 tablet by mouth once daily [...] 03/17/2022 Assessment & Plan (03/17/2022 12:13 PM SQUIRREL MAN): Likely related to progressing dementia? (reviewed prior [...] Assessment & Plan (05/19/2021 8:51 PM CDT): 2005 annuloplasty - TTE 2020 without issues Assessment & Plan (05/12/2021 9:46 AM CDT): (2014) -last Eliquis 05/09, started Hep gtt -Restart eliquis at home tomorrow 05/13 Pulmonary hypertension ([facility]/HCC) 11/24/2014 Type 2 diabetes mellitus 10/07/2014 Assessment & Plan (05/19/2021 7:51 PM CDT): A1C 5.9%. Home metformin, glimepride - follow BG on BMP Assessment & Plan (05/12/2021 7:57 AM CDT): (HgbA1C 5.9) -home metformin and Glimepride -Consistent carb diet; insulin sensitive SSI Dyslipidemia 10/07/2014 HTN (hypertension), benign 10/07/2014 Assessment & Plan (03/17/2022 12:12 PM SQUIRREL MAN): Encouraged to get home monitor and ensure she gets all medications Follows with Cardiology Assessment & Plan (05/19/2021 7:51 PM CDT): Hold amlodipine, coreg, losartan d/t GIB Assessment & Plan (05/10/2021 9:27 AM CDT): - home Coreg and Amlodipine Mitral valve insufficiency 10/07/2014 Resolved Problems Problem Noted Date Diagnosed Date Resolved Date Pancolitis (CMS/HCC) 05/27/2021 023 Bright red blood per rectum [...] (05/10/2021): Added automatically from request for surgery [id number] Assessment & Plan (05/19/2021 8:46 PM CDT): [...] - 05/16) Pathology--pending Establishing care with qian sheikh, encounter for 12/31/2020 03/17/2022 Abnormal EKG 06/06/2017 12/31/2020 Chest pain 06/06/2017 12/31/2020 Immunizations Name Administration Dates Next Due Influenza, Quadrivalent, Hig h Dose, Preservative Free, Intrr 12/24/2021,12/18/2019 Influenza, Trivalent, Adjuvanted, Intramuscular 12/14/2017,12/13/2017 Influenza, Trivalent, High D ose, Split, Preservative Free, Intramuscular 02/09/2019 Influenza, Unspecified 12/17/2020,01/15/2015 Pneumococcal Conjugate PCV 13 08/21/2016 Pneumococcal Conjugate Pcv20 09/10/2021 Pneumococcal Conjugate, Unspecified 01/15/2015 Pneumococcal Polysaccharide PPV23 01/15/2015 ZOSTER Recombinant 09/10/2021 Social History Tobacco Use Types Packs/Day Years [...] on file Legal Sex Female 11:30 PM SQUIRREL MAN Gender Identity Female 06/15/2023 1:45 PM CDT Sexual Orientation Straight 06/15/2023 1: 45 PM CDT Last Filed Vital Signs Vital Sign Reading Time Taken Comments Blood Pressure 148/70 02/09/2024 1:04 PM SQUIRREL MAN Pulse 80 02/09/2024 1:04 PM SQUIRREL MAN Temperature 36.7 ??C (98 ??F) 02/09/2024 1:04 PM SQUIRREL MAN Respiratory Rate 18 02/05/2023 11:22 AM SQUIRREL MAN Oxygen Saturation 96% 02/09/2024 1:04 PM SQUIRREL MAN Inhaled Oxygen Concentration - - Weight 68.9 kg (152 lb) 02/09/2024 1:04 PM SQUIRREL MAN Height 154.9 cm (5' 1 ) 02/09/2024 1:04 PM SQUIRREL MAN Body Mass Index 28.72 02/09/2024 1:04 PM SQUIRREL MAN Plan of Treatment Not on file Medical Devices Implanted Type Area Administrative Nursing Supervisor Device Identifier Shelf Expiration Date Model / Serial / Lot Identify [id number] Vertaplex Hv Autoplex Without Needle Delivery System Kit Bone - [id number] Implanted:Qty: 1 on 05/23/2020 at [facility] [employer] [id number] 08/27/2021 [id number] / / [id number] Procedures Procedure Name Priority Date/Time Associated Diagnosis Comments SCAN - LABS 02/21/2024 2:43 PM SQUIRREL MAN SCAN - LABS 02/21/2024 11:16 AM SQUIRREL MAN SCAN - LABS 02/21/2024 TRANSTHORACIC ECHO (TTE) COMPLETE W DOPPLER/CF WO CONTRAST Routine 02/09/2024 1:45 PM SQUIRREL MAN S/P mitral valve repair Chronic diastolic heart [...] (HCC) LIPID PANEL Routine 02/23/2023 9:53 AM SQUIRREL MAN Dyslipidemia DEXA AXIAL SKELETON BONE DENSITY 1 OR MORE SITES Schedule Routine, Read Routine (OP Routine) 09/09/2020 10:40 AM CDT Age related osteoporosis, unspecified pathological fracture presence Post-menopausal Abnormal bone density screening from Last 3 Months or Most Recently Relevant to Health Maintenance Results * SCAN - LABS (02/21/2024 2:43 PM SQUIRREL MAN) Mehul Verdugo MD Final Result * SCAN - LABS (02/21/2024 11:16 AM SQUIRREL MAN) us Mehul Verdugo MD Final Result * SCAN - LABS (02/21/2024) us Mendy Torres RN Edite d Result - Final * TRANSTHORACIC ECHO (TTE) COMPLETE W DOPPLER/CF WO CONTRAST (02/09/2024 1:45 PM SQUIRREL MAN) LV EF 60 % CARDIOREPORT Anatomical Region Laterality Modality Ultrasound 02/09/2024 1:00 PM SQUIRREL MAN Narrative 02/09/2024 9:30 PM SQUIRREL MAN Patient name: Yuliana Singh Date of test: 02/09/2024 Type of test: TTE w/Doppler Hospital #: 0 Date of : 1940 (F) Farm Equipment Service Technician: Capri Prado DANISHA Referring Physician: EMI CELAYA MD Contrast Agent: Contrast Administered by: Supervised/Interpreted by: Sp Madrid MD Diagnosis: Location: [facility] Reason for test: S/P MV [id number] annuloplasty Physio II ring MV Structure: s/p [...] 2=Hypo 3=Akinetic 4=Dyskin./Aneurysm 0=Not visualized) Parasternal Long Gwynn:MAS=1 BAS=1 MIL=1 ESTUARDO=1 Parasternal Short Gwynn:MAS=1 MIS=1 MA=1 MIL=1 MAL=1 MA=1 Apical 4 Chambers:=1 MIS=1 BIS=1 BAL=1 MAL=1 AL=1 AC=1 Apical 2 Chambers:AI=1 MA=1 BI=1 BA=1 MA=1 AA=1 AC=1 LV Global [...] MD By signing this report, the attending java mobile developer certifies that he or she has personally supervised and interpreted the echocardiogram and has reviewed and or edited and agrees with the written comments contained within the report. Procedure Note Sp Madrid MD - 02/09/2024 Patient name: Yuliana Singh Date of test: 02/09/2024 Type of test: TTE w/[facility] #: 0 Date of : 1940 (F) Farm Equipment Service Technician: Capri Prado [facility] Referring Physician: EMI CELAYA MD Contrast Agent: Contrast Administered by: Supervised/Interpreted by: Sp Madrid MD Diagnosis: Location: [facility] Reason for test: S/P MV [id number] annuloplasty Physio II ring MV Structure: s/p [...] 2=Hypo 3=Akinetic 4=Dyskin./Aneurysm 0=Not visualized) Parasternal Long Gwynn:MAS=1 BAS=1 MIL=1 ESTUARDO=1 Parasternal Short Gwynn:MAS=1 MIS=1 MA=1 MIL=1 MAL=1 MA=1 Apical 4 Chambers:=1 MIS=1 BIS=1 BAL=1 MAL=1 AL=1 AC=1 Apical 2 Chambers:AI=1 MA=1 BI=1 BA=1 MA=1 AA=1 AC=1 LV Global [...] and strain pattern. Confirmed on 02/09/2024 - :30:28 by Sp Madrid MD By signing this report, the attending java mobile developer certifies that he or she has personally supervised and interpreted the echocardiogram and has reviewed and or edited and agrees with the written comments contained within the report. Emi Celaya NP CV ECHO PROCEDURES Final Resu lt * [...] 9:12 AM CDT Performed at: ??01 - [address] ??[id number] Licensing Specialist: Axel Hillman PhD, Phone: ??[phone] us Mehul Verdugo MD LAB URINE ORDERABLES [facility] - * (ABNORMAL) Comprehensive metabolic panel (06/07/2023 11:59 [...] PM CDT Performed at: ??01 - [facility] [address] ??[id number] Licensing Specialist: Axel Hillman PhD, Phone: ??[phone] us Mehul Verdugo MD LAB BLOOD ORDERABLES Final Re sult [facility] - 01 * (ABNORMAL) Lipid panel (02/23/2023 9:53 AM SQUIRREL MAN) Cholesterol 159 30 - 199 mg/dL [facility] Comment: Interpretive Data Ages < or [...] revised on 2017. Triglycerides 321(H) <=149 mg/dL [facility] Comment: Interpretive Data Ages < or [...] revised on 2017. HDL 29(L) >=40 mg/dL [facility] Comment: Interpretive Data Ages < or [...] on 2017. LDL, calculated 66 <=129 mg/dL [facility] Comment: Interpretive Data Ages < or [...] revised on 2017. Non-HDL Cholesterol 130 mg/dL [facility] Comment: Interpretive Data Ages < or = [...] last revised on 2017. Chol/HDL ratio 5 [facility] Blood 02/23/2023 9:53 AM SQUIRREL MAN 02/23/2023 11:37 AM SQUIRREL MAN us Emi Celaya [employer]OW [facility]OSS LAB BLOOD ORDERABLES Final Re sult [facility] [address] [facility] [place] [address] * Dexa Axial Skeleton Bone Density 1 [...] by: Junior Chambers M.D. Cassius Chambers MD IMG DXA PROCEDURES Final Resul t from Last 3 Months or Most Recently Relevant to Health Maintenance Insurance [employer] CHO[employer] MEDICARE PPO [employer] CHOICE MEDICARE PPO [facility]PO [facility] [employer] CHOICE MEDICARE PPO Advance Directives For more information, please contact: [phone] * Full Code (Latest Code Status on File) Date Activated Date Inactivated Comments 05/19/2021 10:03 PM 05/22/2021 4:14 PM * Full Code Date Activated Date Inactivated Comments 05/10/2021 1:44 AM 05/12/2021 5:35 PM * Full Code Date Activated Date Inactivated Comments 05/23/2020 12:27 PM 05/23/2020 5:35 PM * Full Code Date Activated Date Inactivated Comments 02/09/2019 2:42 PM 02/11/2019 4:52 PM Care Teams Human Resources Technician Relationship Specialty Start Date End Date Mehul Verdugo MD [address] [facility] [address] [place] [address] PCP - General Internal Medicine 09/10/21 Paulette Geller MD [address] [place] [address] Consulting Physician Gastroenterology 05/22/21
--- OUTSIDE RECORDS SUMMARY | 2024-02-28 15:32 | XMS_ITS | Encounter Summary ---
Author Organization [facility] Address [address] [place] [address] Care Team Providers Care Computer Game Tester Name Role Phone Paulette Geller MD Unavailable + Mehul Verdugo MD Primary Care Provider [phone] Encounter Details Date Type Department Care Team (Late st Contact Info) Description 09/13/2023 [facility] [address] [facility] [address] [place] [facility] [place] [address] [place], [place] [address] [place] [address] Social History Tobacco Use Types Packs/Day Years [...] on file 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 Gender Identity Female 06/15/2023 1:45 PM CDT Sexual Orientation Straight 06/15/2023 1: 45 PM CDT documented as of this encounter Ordered Prescriptions Prescription Sig Dispense Quantity Refills Last Filled Start Date End Date pravastatin (PRAVACHOL) 40 mg tablet Take 1 tablet (40 mg total) by mouth daily 90 tablet 1 09/13/2023 09/12/2024 documented in this encounter Plan of Treatment Not on file documented as of this encounter Visit Diagnoses Not on filedocumented in this encounter Discontinued Medications Medication Sig Discontinue Reason Start Date End Da te pravastatin (PRAVACHOL) 40 mg tabletIndications:hyperl ipidemia Take 1 tablet by mouth once daily 01/06/2023 09/13/2023 documented as of this encounter Care Teams Computer Game Tester Relationship Specialty Start Date End Date Mehul Verdugo MD [address] [facility] [address] [place] [address] PCP - General Internal Medicine 09/10/21 Paulette Geller MD [address] [place] [address] Consulting Physician Gastroenterology 05/22/21 documented as of this encounter
--- OUTSIDE RECORDS SUMMARY | 2024-02-28 15:32 | XMS_ITS | Encounter Summary ---
Author Organization [facility] Address [address] [place] [address] Phone Care Team Providers Care Kindergarten Teacher Name Role Phone Paulette Geller MD Unavailable + Mehul Verdugo MD Primary Care Provider [phone] Reason for Referral * Cardiology (Routine) - Closed Specialty Diagnoses / Procedures Referred By Contac t Referred To Contact Diagnoses S/P mitral valve repair Chronic diastolic heart failure (HCC) Procedures Transthoracic Echo (TTE) Complete W Doppler/CF Karena Celaya NP Phone: tel: fax: [facility] (All Locations) Referral ID Status Reason Start Date Expiration Date Visits Re quested Visits Authorized [id number] Closed 10/10/2023 11/08/2024 1 1 Encounter Details Date Type Department Care Team (Late st Contact Info) Description 10/10/2023 11:30 AM CDT Office Visit [facility] Cardiology [address] [facility] [address] [place] [address] Karena Celaya NP [address] [facility] [address] [place] [address] S/P mitral valve repair (Primary Dx); Chronic diastolic heart failure (HCC); Type 2 diabetes mellitus without complication, without long-term current use of insulin (CMS/HCC) (HCC); HTN (hypertension), benign Social History Tobacco Use Types Packs/Day Years [...] on file 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 Gender Identity Female 06/15/2023 1:45 PM CDT Sexual Orientation Straight 06/15/2023 1: 45 PM CDT documented as of this encounter Last Filed Vital Signs Vital Sign Reading Time Taken Comments Blood Pressure 167/90 10/10/2023 11:35 AM CDT Pulse 87 10/10/2023 11:35 AM CDT Temperature 36.7 ??C (98.1 ??F) 10/10/2023 11:35 AM C DT Respiratory Rate - - Oxygen Saturation 98% 10/10/2023 11:35 AM CDT Inhaled Oxygen Concentration - - Weight 69.4 kg (153 lb) 10/10/2023 11:35 AM CDT Height 154.9 cm (5' 1 ) 10/10/2023 11:35 AM CDT Body Mass Index 28.91 10/10/2023 11:35 AM CDT documented in this encounter Ordered Prescriptions Prescription Sig Dispense Quantity Refills Last Filled Start Date End Date carvediloL (COREG) 25 mg tabletIndications: hypertension Take 1 tablet (25 mg total) by mouth 2 (two) times a day 180 tablet 3 10/10/2023 losartan (COZAAR) 100 mg tabletIndications: hypertension Take 1 tablet (100 mg total) by mouth daily 90 tablet 10/10/2023 01/06/2024 documented in this encounter Progress Notes * Karena Celaya, SR. MERCHANDISE PLANNER - 10/10/2023 11:30 AM CDT Patient Name: Yuliana Johnson : : 1940 Date of Service: 10/10/2023 PAST MEDICAL HISTORY Past Medical History: Diagnosis Date Cancer (CMS/HCC) (HCC) breast Diabetes mellitus (HCC) Hyperlipidemia Hypertension HISTORY OF PRESENT ILLNESS: 82 y.o. female with a past medical history significant for dyslipidemia, diabetes, HTN, Chronic diastolic dysfunction, S/p mitral repair, CVA here for cardiology follow up. Spouse here helps provide history. She denies sob, swelling, palpitations, fever, chills. Her blood sugar is running high but i mproved managed by PCP She is here today with , she has alzheimers, she denies cp, sob, edema, dizziness, syncope or orthopnea. . REVIEW OF SYSTEMS: All other systems negative except stated in the HPI MEDICATIONS: Outpatient Encounter Medications as of 10/10/2023 Medication Sig Dispense Refill acetaminophen (TYLENOL) 325 mg tablet Take 2 tablets (650 mg total) by mouth every 4 (four) hours as needed for pain or headaches 20 tablet 0 amLODIPine (NORVASC) 5 mg tablet Take 1 tablet (5 mg total) by mouth daily 90 tablet 1 apixaban (Eliquis) 2.5 mg tablet Take 1 tablet (2.5 mg total) by mouth 2 (two) times a day 180 tablet 3 aspirin 81 mg enteric coated tablet Take 1 tablet (81 mg total) by mouth daily blood-glucose meter (True Metrix Glucose Meter) [facility] Use to test blood sugar once daily DX: E11.9 non insulin dependent 1 each 0 furosemide (LASIX) 20 mg tablet Take 1 tablet (20 mg total) by mouth daily and then 2 tablets by mouth (40 mg) alternating daily. 60 tablet 3 lancets 30 gauge misc One Touch Delica Lancets - Use to test blood sugar 2 times per day.Diag code 11.9 100 each 3 lancets 30 gauge misc Test sugars twice daily dx ell.9 accucheck elizabeth plus 100 each 3 mirtazapine (REMERON) 7.5 mg tablet TAKE 1 TABLET EVERY NIGHT 90 tablet 10 OneTouch Verio test strips strip Use to test blood sugar 2 times per day.Diag code 11.9 100 strip 3 pen needle, diabetic 31 gauge x 5/16 needle Use to inject 1-4 times daily as directed. 100 each 4 pravastatin (PRAVACHOL) 40 mg tablet Take 1 tablet (40 mg total) by mouth daily 90 tablet 1 alendronate (FOSAMAX) 70 mg tablet Take 1 tablet (70 mg total) by mouth every 7 days carvediloL (COREG) 25 mg tablet Take 1 tablet (25 mg total) by mouth 2 (two) times a day 180 tablet3 cephalexin (Keflex) 500 mg capsule Take 1 capsule (500 mg total) by mouth 2 (two) times a day (Patient not taking: Reported on 06/07/2023) clopidogreL (PLAVIX) 75 mg tablet Take 1 tablet (75 mg total) by mouth daily 90 tablet 1 fenofibrate (TRIGLIDE) 160 mg tablet Take 1 tablet by mouth once daily 90 tablet 0 insulin degludec (TRESIBA) 100 unit/mL (3 mL) pen for injection Inject 0.42 mL (42 Units total) under the skin daily 15 mL 0 levETIRAcetam (KEPPRA) 500 mg tablet Take 1 tablet (500 mg total) by mouth every 12 (twelve) hours losartan (COZAAR) 100 mg tablet Take 1 tablet (100 mg total) by mouth daily 90 tablet 0 metFORMIN (GLUCOPHAGE) 500 mg tablet Take 1 tablet (500 mg total) by mouth 2 (two) times a day withmeals 180 tablet 1 potassium chloride ER 20 mEq CR tablet Take 1 tablet by mouth once daily 90 tablet 3 tiotropium bromide (SPIRIVA RESPIMAT) 2.5 mcg/actuation inhaler Inhale 2 puffs daily 70 mcg of tiotropium 2 zolpidem (AMBIEN) 5 mg tablet TAKE 1 TABLET BY MOUTH NIGHTLY NEEDED FOR SLEEP (Patient not taking: Reported on 06/07/2023) 30 tablet 0 [DISCONTINUED] carvediloL (COREG) 25 mg tablet Take 1 tablet by mouth twice daily 180 tablet 3 [DISCONTINUED] carvediloL (COREG) 25 mg tablet Take 1 tablet (25 mg total) by mouth 2 (two) times aday with meals [DISCONTINUED] losartan (COZAAR) 100 mg tablet Take 1 tablet by mouth once daily 90 tablet 0 No facility-administered encounter medications on file as of 10/10/2023. PHYSICAL EXAM: BP 167/90 Pulse 87 Temp 36.7 ??C (98.1 ??F) Ht 154.9 cm (5' 1 ) Wt 69.4 kg (153 lb) SpO2 98% BMI 28.91 kg/m?? General: Well appearing, No pain or distress, well nourished HEENT: Within normal limits Neck: Supple, No carotid bruits, no JVD Respiratory: Clear to ausculation bilaterally; no wheezing/rales/rhonchi; respirations unlabored Cardiovascular: RRR, normal Gastrointestinal: soft, non-tender abdomen, no masses palpable Extremities: Warm and dry without edema Psychiatric: normal affect Neurologic: awake/alert, no focal deficits DIAGNOSTIC TESTING: Lab Results Component Value Date GLUCOSE 166 (H) 06/07/2023 CALCIUM 8.9 06/07/2023 SODIUM 140 06/07/2023 POTASSIUM 4.2 02/23/2023 CO2 18 (L) 06/07/2023 CHLORIDE 108 (H) 06/07/2023 BUNSER 19 06/07/2023 CREATININE 1.01 (H) 06/07/2023 Chemistry Lab Results Component Value Date SODIUM 140 06/07/2023 POTASSIUM 4.2 02/23/2023 CHLORIDE 108 (H) 06/07/2023 CO2 18 (L) 06/07/2023 ANIONGAP 9 02/23/2023 BUNSER 19 06/07/2023 CREATININE 1.01 (H) 06/07/2023 GLUCOSE 166 (H) 06/07/2023 CALCIUM 8.9 06/07/2023 BILITOT 0.3 06/07/2023 PROTEIN 6.5 06/07/2023 ALBUMIN 4.0 06/07/2023 GFRNAA 56 (L) 02/23/2023 GFRAA 58 (L) 01/21/2015 ALKPHOS 65 06/07/2023 AST 20 06/07/2023 ALT 11 06/07/2023 PHOS 2.6 02/23/2023 MAGNESIUM 2.0 02/23/2023 Lab Results Component Value Date CHOL 159 02/23/2023 Lab Results Component Value Date HDL 29 (L) 02/23/2023 POCHDL 36 05/20/2022 Lab Results Component Value Date LDLCALC 66 02/23/2023 LDL 17 01/08/2015 POCLDL 44 05/20/2022 Lab Results Component Value Date TRIG 321 (H) 02/23/2023 POCTRIG 146 05/20/2022 Lab Results Component Value Date POCCHDLR 3.0 05/20/2022 Lab Results Component Value Date POCNONHDL 3 05/20/2022 Lab Results Component Value Date POCCHLPL 110 05/20/2022 Lab Results Component Value Date WBC 6.1 02/23/2023 HGB 14.3 02/23/2023 HCT 44.7 02/23/2023 MCV 84.3 02/23/2023 LABPLAT 169 02/23/2023 Lab Results Component Value Date HGBA1C 8.3 06/07/2023 Lab Results Component Value Date NPROBNP 810 (H) 04/20/2022 No results found for: TROPTHS MOST RECENT ECHO: DOPPLER/COLOR FOLOW DOPPLER COMMENTS: No AR seen, s/ p MV annuloplasty ring .No MR seen, no , no MS,s/p TV annuloplasty ring. normal TV, normal PV. Diastolic function: Pseudo normal CONTRAST: 0.8 ml Optison Administered, (2.2 ml wasted). SUMMARY: LA is moderately dilated. Normal RV cavity size. LV cavity size is normal. Normal LV wall thickness/mass. Normal Inferior vena cava. Normal aorta. No AR seen, s/ p MV annuloplasty ring .No MR seen, no , no MS,s/p TV annuloplasty ring. normal TV, normal PV. LVEF 65%.Reduced global LV myocardial longitudinal function and strain pattern. Diastolic function: Pseudo normal Confirmed on 05/11/2022 - 19:49:47 by Sp Madrid MD MOST RECENT ISCHEMIC EVALUATION: [facility]: 2015 DIAGNOSTIC IMPRESSIONS: 1. Minimal coronary artery disease. 2. Severe mitral regurgitation. 3. Moderate pulmonary hypertension. THERAPEUTIC RECOMMENDATIONS: 1. The patient is to undergo mitral valve repair / replacement by Dr. Bo Cuellar. I spoke to him personally. He will see the patient and the surgery will be done electively as an outpatient. 2. No complications noted. 3. Groin instructions given. 4. The findings were explained to the patient and family who understand. Electronically Signed By Sp Madrid M.D. 12/15/2014 09:31 P ASSESSMENT & PLAN: 1. Dyslipidemia She takes fenofibrate 160 mg per day and pravastatin, managed by pcp, her LDL from 2022 was at goalunder 70 - Lipid panel; Future - Lipid panel 2. HTN (hypertension), benign Her BP is running high, she and her are not sure what medications she is taking. She was previously taking losartan, amlodipine an carvedilol, she has no swelling, dizziness. Advised low saltdiet. -advised to monitor bp at home and call back with med list 3. S/P mitral valve repair No signs of heart failure, she is on losartan 100 mg per day. Last echo 04/2022 stable EF no TR or MR, will get echo 4. Chronic diastolic heart failure (HCC) No signs of heart failure, she is on lasix, Coreg and losartan daily 5. Type 2 diabetes mellitus without complication, with long-term current use of insulin (CMS/HCC) (HCC) -improved managed by PCP -she is on insulin and metformin 6. 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 She is on plavix and asa as well RTC in 4-6 months or sooner if needed. Problem List Items Addressed This Visit Cardiac and Vasculature HTN (hypertension), benign Relevant Medications losartan (COZAAR) 100 mg tablet carvediloL (COREG) 25 mg tablet S/P mitral valve repair - Primary Relevant Orders Transthoracic Echo (TTE) Complete W Doppler/CF Chronic diastolic heart failure (HCC) Relevant Medications losartan (COZAAR) 100 mg tablet carvediloL (COREG) 25 mg tablet Other Relevant Orders Transthoracic Echo (TTE) Complete W Doppler/CF Endocrine and Metabolic Type 2 diabetes mellitus (HCC) Relevant Medications losartan (COZAAR) 100 mg tablet Karena Celaya NP documented in this encounter Plan of Treatment Not on file documented as of this encounter Results * TRANSTHORACIC ECHO (TTE) COMPLETE W DOPPLER/CF WO CONTRAST (02/09/2024 1:45 PM CLIENT ACCOUNT MANAGER) LV EF 60 % CARDIOREPORT Anatomical Region Laterality Modality Ultrasound 02/09/2024 1:00 PM CLIENT ACCOUNT MANAGER Narrative 02/09/2024 9:30 PM CLIENT ACCOUNT MANAGER Patient name: Yuliana Johnson Date of test: 02/09/2024 Type of test: TTE w/Doppler Hospital #: 0 Date of : 1940 (F) Hybrid Corn Breeder: Capri Prado RDCS Referring Physician: KARENA CELAYA MD Contrast Agent: Contrast Administered by: Supervised/Interpreted by: Sp Madrid MD Diagnosis: Location: [facility] Reason for test: S/P MV [id number] annuloplasty Physio II ring MV Structure: s/p [...] 2=Hypo 3=Akinetic 4=Dyskin./Aneurysm 0=Not visualized) Parasternal Long [place]:MAS=1 BAS=1 MIL=1 ESTUARDO=1 Parasternal Short [place]:MAS=1 MIS=1 [place]=1 MIL=1 MAL=1 MA=1 Apical 4 Chambers:=1 MIS=1 BIS=1 BAL=1 MAL=1 AL=1 AC=1 Apical 2 Chambers:AI=1 IL=1 BI=1 BA=1 MA=1 AA=1 AC=1 LV Global [...] MD By signing this report, the attending deputy city clerk certifies that he or she has personally supervised and interpreted the echocardiogram and has reviewed and or edited and agrees with the written comments contained within the report. Procedure Sp Bernal, MD - 02/09/2024 Patient name: Yuliana Johnson Date of test: 02/09/2024 Type of test: TTE w/Doppler [facility] #: 0 Date of : 1940 (F) Hybrid Corn Breeder: Capri Prado [facility] Referring Physician: KARENA CELAYA MD Contrast Agent: Contrast Administered by: Supervised/Interpreted by: Sp Madrid MD Diagnosis: Location: [facility] Reason for test: S/P MV [id number] annuloplasty Physio II ring MV Structure: s/p [...] 2=Hypo 3=Akinetic 4=Dyskin./Aneurysm 0=Not visualized) Parasternal Long [place]:MAS=1 BAS=1 MIL=1 ESTUARDO=1 Parasternal Short [place]:MAS=1 MIS=1 [place]=1 MIL=1 MAL=1 MA=1 Apical 4 Chambers:=1 MIS=1 BIS=1 BAL=1 MAL=1 AL=1 AC=1 Apical 2 Chambers:AI=1 IL=1 BI=1 BA=1 MA=1 AA=1 AC=1 LV Global [...] MD By signing this report, the attending deputy city clerk certifies that he or she has personally supervised and interpreted the echocardiogram and has reviewed and or edited and agrees with the written comments contained within the report. Karena Celaya NP CV ECHO PROCEDURES Final Resu lt documented in this encounter Visit Diagnoses Diagnosis S/P mitral valve repair- Primary Other postprocedural status Chronic diastolic heart failure (HCC) Chronic diastolic heart failure Type 2 diabetes mellitus without complication, without long-term current use of insulin (CMS/HCC) (HCC) HTN (hypertension), benign Essential hypertension, benign S/P mitral valve repair Other postprocedural status Chronic diastolic heart failure (HCC) Chronic diastolic heart failure documented in this encounter Discontinued Medications Medication Sig Discontinue Reason Start Date End Da te losartan (COZAAR) 100 mg tabletIndications:hypert ension Take 1 tablet by mouth once daily Reorder 08/24/2022 10/10/2023 carvediloL (COREG) 25 mg tabletIndications:hypert ension Take 1 tablet (25 mg total) by mouth 2 (two) times a day with meals 10/10/2023 carvediloL (COREG) 25 mg tabletIndications:hypert ension Take 1 tablet by mouth twice daily 04/15/2022 10/10/2023 documented as of this encounter Care Teams Kindergarten Teacher Relationship Specialty Start Date End Date Mehul Verdugo MD [address] [facility] [address] [place] [address] PCP - General Internal Medicine 09/10/21 Paulette Geller MD [address] [place] [address] Consulting Physician Gastroenterology 05/22/21 documented as of this encounter
--- OUTSIDE RECORDS SUMMARY | 2024-02-28 15:32 | XMS_ITS | Encounter Summary ---
Author Organization [facility] Address [address] [place] [address] Phone Care Team Providers Care Ground Instructor Basic Name Role Phone Paulette Geller MD Unavailable + Mehul Verdugo MD Primary Care Provider [phone] Reason for Visit * Cardiology (Routine) - Closed Specialty Diagnoses / Procedures Referred By Contac t Referred To Contact Diagnoses S/P mitral valve repair Chronic diastolic heart failure (HCC) Procedures Transthoracic Echo (TTE) Complete W Doppler/CF Karena Celaya NP Phone: tel: fax: [facility] (All Locations) Referral ID Status Reason Start Date Expiration Date Visits Re quested Visits Authorized [id number] Closed 10/10/2023 11/08/2024 1 1 Encounter Details Date Type Department Care Team (Latest Contact Info) Description 02/09/2024 1:00 PM CARD PLAYER Ancillary Procedure [facility] Cardiology [address] [facility] [address] [place] [address] S/P mitral valve repair; Chronic diastolic heart failure (HCC) Social History Tobacco Use Types Packs/Day Years [...] on file Legal Sex Female 11:30 PM CARD 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 Gender Identity Female 06/15/2023 1:45 PM CDT Sexual Orientation Straight 06/15/2023 1: 45 PM CDT documented as of this encounter Plan of Treatment Not on file documented as of this encounter Procedures Procedure Name Priority Date/Time Associated Diagnosis Comments TRANSTHORACIC ECHO (TTE) COMPLETE W DOPPLER/CF WO CONTRAST Routine 02/09/2024 1:45 PM CARD PLAYER S/P mitral valve repair Chronic diastolic heart failure (HCC) documented in this encounter Results * TRANSTHORACIC ECHO (TTE) COMPLETE W DOPPLER/CF WO CONTRAST (02/09/2024 1:45 PM CARD PLAYER) LV EF 60 % CARDIOREPORT Anatomical Region Laterality Modality Ultrasound 02/09/2024 1:00 PM CARD PLAYER Narrative 02/09/2024 9:30 PM CARD PLAYER Patient name: Yuliana Johnson Date of test: 02/09/2024 Type of test: TTE w/Doppler [facility] #: 0 Date of : 1940 (F) Meteorological Observer: Capri Prado RDCS Referring Physician: KARENA CELAYA MD Contrast Agent: Contrast Administered by: Supervised/Interpreted by: Sp Madrid MD Diagnosis: [place] [facility] [place] Reason for test: S/P MV [id number] annuloplasty Physio II ring MV Structure: s/p [...] 2=Hypo 3=Akinetic 4=Dyskin./Aneurysm 0=Not visualized) Parasternal Long [place]:MAS=1 BAS=1 MIL=1 ESTUARDO=1 Parasternal Short [place]:MAS=1 MIS=1 [place]=1 MIL=1 MAL=1 MA=1 Apical 4 Chambers:=1 MIS=1 BIS=1 BAL=1 MAL=1 AL=1 AC=1 Apical 2 Chambers:AI=1 [place]=1 BI=1 BA=1 MA=1 AA=1 AC=1 LV Global [...] MD By signing this report, the attending marketing analyst certifies that he or she has personally supervised and interpreted the echocardiogram and has reviewed and or edited and agrees with the written comments contained within the report. Procedure Note Sp Madrid MD - 02/09/2024 Patient name: Yuliana Johnson Date of test: 02/09/2024 Type of test: TTE w/Doppler Hospital #: 0 Date of : 1940 (F) Meteorological Observer: Capri Prado [facility] Referring Physician: KARENA CELAYA MD Contrast Agent: Contrast Administered by: Supervised/Interpreted by: Sp Madrid MD Diagnosis: Location: [facility] Reason for test: S/P MV [id number] annuloplasty Physio II ring MV Structure: s/p [...] 2=Hypo 3=Akinetic 4=Dyskin./Aneurysm 0=Not visualized) Parasternal Long [place]:MAS=1 BAS=1 MIL=1 ESTUARDO=1 Parasternal Short [place]:MAS=1 MIS=1 [place]=1 MIL=1 MAL=1 MA=1 Apical 4 Chambers:=1 MIS=1 BIS=1 BAL=1 MAL=1 AL=1 AC=1 Apical 2 Chambers:AI=1 [place]=1 BI=1 BA=1 MA=1 AA=1 AC=1 LV Global [...] MD By signing this report, the attending marketing analyst certifies that he or she has personally supervised and interpreted the echocardiogram and has reviewed and or edited and agrees with the written comments contained within the report. Karena Celaya NP CV ECHO PROCEDURES Final Resu lt documented in this encounter Visit Diagnoses Diagnosis S/P mitral valve repair Other postprocedural status Chronic diastolic heart failure (HCC) Chronic diastolic heart failure documented in this encounter Care Teams Ground Instructor Basic Relationship Specialty Start Date End Date Mehul Verdugo MD [address] [facility] [address] [place] [address] PCP - General Internal Medicine 09/10/21 Paulette Geller MD [address] [place] [address] Consulting Physician Gastroenterology 05/22/21 documented as of this encounter
--- OUTSIDE RECORDS SUMMARY | 2024-02-28 15:32 | XMS_ITS | Encounter Summary ---
Author Organization [facility] Address [address] [place] [address] Care Team Providers Care Scrap Wheeler Name Role Phone Paulette Geller MD Unavailable + Mehul Verdugo MD Primary Care Provider [phone] Reason for Visit * Reason Onset Date Comments upload 04/21/2023 Encounter Details Date Type Department Care Team (Late st Contact Info) Description 04/21/2023 [facility] [address] 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 I called lvm on Azul's phone NEERING JOB TITLES * Telephone Encounter - Silvana Fisher RN - 04/21/2023 3:35 PM CST I put copy of dexcom on your desk NEERING JOB TITLES * Telephone Encounter - No Franz - 04/21/2023 1:43 PM ENGINEERING JOB TITLES Patient's daughter, Azul, called in she has uploaded pt's dexcom for review. Pt currently on 30 units Tresiba. NEERING JOB TITLES documented in this encounter Plan of Treatment Not on file documented as of this encounter Visit Diagnoses Not on filedocumented in this encounter Care Teams Scrap Wheeler Relationship Specialty Start Date End Date Mehul Verdugo MD [address] [place] [address] PCP - General Internal Medicine 09/10/21 Paulette Geller MD [address] [place] [address] Consulting Physician Gastroenterology 05/22/21 documented as of this encounter
--- OUTSIDE RECORDS SUMMARY | 2024-02-28 15:32 | XMS_ITS | Encounter Summary ---
Author Organization [facility] Address [address] [place] [address] Phone Care Team Providers Care Vest Finisher Name Role Phone Paulette Geller MD Unavailable + Mehul Verdugo MD Primary Care Provider [phone] Encounter Details Date Type Department Care Team (Late st Contact Info) Description 09/15/2023 Orders Only [facility] Cardiology [address] [facility] [address] [place] [address] Sp Madrid MD [address] [facility] [address] [place] [address] Social History Tobacco Use Types Packs/Day Years [...] on file Legal Sex Female 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
--- OUTSIDE RECORDS SUMMARY | 2024-02-28 15:32 | XMS_ITS | Encounter Summary ---
Author Organization [facility] Address [address] [place] [address] Care Team Providers Care Cone Baker Machine Name Role Phone Paulette Geller MD Unavailable + Mehul Verdugo MD Primary Care Provider [phone] Reason for Referral * Diagnostic Imaging (Routine) - Closed Specialty Diagnoses / Procedures Referred By Contelmer t Referred To Contact Diagnoses Age-related osteoporosis without current pathological fracture Procedures Dexa Axial Skeleton Bone Density 1 or 2 Site Mehul Verdugo MD [address] [address] Phone: tel: fax: [address] [address] Referral ID Status Reason Start Date Expiration Date Visits Re quested Visits Authorized [id number] Closed 06/07/2023 07/06/2024 1 1 Reason for Visit * Reason Comments Hypertension Diabetes Chronic Kidney Disease Encounter Details Date Type Department Care Team (Late st Contact Info) Description 06/07/2023 11:00 AM CDT [facility] [address] [facility] [address] [place] [address] Mehul Verdugo MD [address] [facility] [address] [place], [place] [id number] Type 2 diabetes mellitus without complication, with long-term current use of insulin (CMS/HCC) (HCC) (Primary Dx); Age-related osteoporosis without current pathological fracture; Dyslipidemia; HTN (hypertension), benign; S/P mitral valve repair; Tricuspid valve disorder; Cerebrovascular accident (CVA) due to occlusion of other cerebral artery (HCC) Social History Tobacco Use Types Packs/Day Years Used Date Smoking Tobacco: Never Smokeless Tobacco: Never Tobacco Cessation:Counseling Given: Not Answered Alcohol Use Standard Drinks/Week Comments No 0 [...] on file 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 Gender Identity Female 06/15/2023 1:45 PM CDT Sexual Orientation Straight 06/15/2023 1: 45 PM CDT documented as of this encounter Last Filed Vital Signs Vital Sign Reading Time Taken Comments Blood Pressure 163/81 06/07/2023 11:20 AM CDT Pulse 69 06/07/2023 11:20 AM CDT Temperature - - Respiratory Rate - - Oxygen Saturation - - Inhaled Oxygen Concentration - - Weight 69.3 kg (152 lb 12.8 oz) 024 11:20 AM CDT Height 154.9 cm (5' 1 ) 06/07/2023 11:2 0 AM CDT Body Mass Index 28.87 06/07/2023 11:20 AM CDT documented in this encounter Progress Notes * Mehul Verdugo MD - 06/07/2023 11:00 AM CDT Images from the original note were not included. Subjective/Objective Patient ID: Yuliana Johnson is a 82 y.o. female. Chief Complaint Hypertension, Diabetes, and Chronic Kidney Disease Hypertension Pertinent negatives include no chest pain, headaches, palpitations or shortness of breath. Diabetes Pertinent negatives for hypoglycemia include no dizziness, headaches or nervousness/anxiousness. Pertinent negatives for diabetes include no chest pain, no fatigue, no polydipsia, no polyphagia, no polyuria and no weakness. 1. History of tricuspid and mitral valve repair. She has been on Eliquis for quite some time. In April she had an episode of bright red blood per rectum with evaluation subsequently suggesting diverticulosis with diverticular bleed. She has had no bleeding since then. She remains on Eliquis. 2. History of diabetes mellitus type 2 A1c today 8.3% using metformin and insulin. After some persistent education, and with help from her family, she is doing better! No hypoglycemia. 3. History of chronic kidney disease with creatinine near 1.0. 4. History of chronic diastolic heart failure follows with cardiology, has no s/s of cad. 5. History of hypertension on medication No complaint today, indicates she feels well Past Surgical History: Procedure Laterality Date HYSTERECTOMY KYPHOPLASTY THORACIC N/A 05/23/2020 MASTECTOMY Left MITRAL VALVE REPAIR Family History Problem Relation Age of Onset Alcohol abuse Mother Alcohol abuse Father Hypertension Maternal Grandfather Family history of hypertension - Relation: Grandfather (Added by TW Conv)/Family history of hypertension - Relation: Grandfather (Added by TW Conv) Hypertension Other Family history of hypertension - Relation: Grandmother (Added by TW Conv) Hypertension Other Family history of hypertension - Relation: Grandmother (Added by TW Conv) Immunization History Administered Date(s) Administered Influenza, Quadrivalent, High Dose, Preservative Free, Intrr 12/18/2019, 12/24/2021 Influenza, Trivalent, Adjuvanted, Intramuscular 12/13/2017, 12/14/2017 Influenza, Trivalent, High Dose, Split, Preservative Free, Intramuscular 02/09/2019 Influenza, Unspecified 01/15/2015, 12/17/2020 [employer] SARS-CoV-2 Monovalent Vaccination (12+ Yrs) CHASE-READY TO USE 07/20/2021 Pfizer SARS-CoV-2 Monovalent Vaccination (12+ Yrs) PURPLE 04/01/2020, 04/29/2020, 01/01/2021 Pneumococcal Conjugate PCV 13 08/21/2016 Pneumococcal Conjugate Pcv20 09/10/2021 Pneumococcal Conjugate, Unspecified 01/15/2015 Pneumococcal Polysaccharide PPV23 01/15/2015 ZOSTER Recombinant 09/10/2021 Current Outpatient Medications Medication Sig alendronate (FOSAMAX) 70 mg tablet Take 1 tablet (70 mg total) by mouth every 7 days amLODIPine (NORVASC) 5 mg tablet Take 1 tablet (5 mg total) by mouth daily apixaban (Eliquis) 2.5 mg tablet Take 1 tablet by mouth twice daily aspirin 81 mg enteric coated tablet Take 1 tablet (81 mg total) by mouth daily insulin degludec (TRESIBA) 100 unit/mL (3 mL) pen for injection Inject 0.26 mL (26 Units total) under the skin daily (Patient taking differently: Inject 0.32 mL (32 Units total) under the skin daily) metFORMIN (GLUCOPHAGE) 500 mg tablet Take 1 tablet (500 mg total) by mouth 2 (two) times a day withmeals acetaminophen (TYLENOL) 325 mg tablet Take 2 tablets (650 mg total) by mouth every 4 (four) hours as needed for pain or headaches blood-glucose meter (True Metrix Glucose Meter) [facility] to test blood sugar once daily DX: E11.9 non insulin dependent carvediloL (COREG) 25 mg tablet Take 1 tablet by mouth twice daily carvediloL (COREG) 25 mg tablet Take 1 tablet (25 mg total) by mouth 2 (two) times a day with meals cephalexin (Keflex) 500 mg capsule Take 1 capsule (500 mg total) by mouth 2 (two) times a day (Patient not taking: Reported on 06/07/2023) clopidogreL (PLAVIX) 75 mg tablet Take 1 tablet (75 mg total) by mouth daily fenofibrate (TRIGLIDE) 160 mg tablet Take 1 tablet by mouth once daily furosemide (LASIX) 20 mg tablet Take 1 tablet (20 mg total) by mouth daily and then 2 tablets by mouth (40 mg) alternating daily. lancets 30 gauge misc One Touch Delica Lancets - Use to test blood sugar 2 times per day.Diag code 11.9 lancets 30 gauge misc Test sugars twice daily dx ell.9 accucheck elizabeth plus levETIRAcetam (KEPPRA) 500 mg tablet Take 1 tablet (500 mg total) by mouth every 12 (twelve) hours losartan (COZAAR) 100 mg tablet Take 1 tablet by mouth once daily mirtazapine (REMERON) 7.5 mg tablet TAKE 1 TABLET EVERY NIGHT OneTouch Verio test strips strip Use to test blood sugar 2 times per day.Diag code 11.9 pen needle, diabetic 31 gauge x 5/16 needle Use to inject 1-4 times daily as directed. potassium chloride ER 20 mEq CR tablet Take 1 tablet by mouth once daily pravastatin (PRAVACHOL) 40 mg tablet Take 1 tablet by mouth once daily tiotropium bromide (SPIRIVA RESPIMAT) 2.5 mcg/actuation inhaler Inhale 2 puffs daily zolpidem (AMBIEN) 5 mg tablet TAKE 1 TABLET BY MOUTH NIGHTLY NEEDED FOR SLEEP (Patient not taking: Reported on 06/07/2023) Review of Systems Constitutional: Negative for appetite change, fatigue, fever and unexpected weight change. HENT: Negative for ear pain, hearing loss and sore throat. Eyes: Negative for visual disturbance. Respiratory: Negative for cough, shortness of breath and wheezing. Cardiovascular: Negative for chest pain, palpitations and leg swelling. Gastrointestinal: Negative for abdominal pain, anal bleeding, blood in stool, constipation, diarrhea, nausea and vomiting. Endocrine: Negative for cold intolerance, heat intolerance, polydipsia, polyphagia and polyuria. Genitourinary: Negative for dysuria and hematuria. Musculoskeletal: Negative for arthralgias, back pain and joint swelling. Skin: Negative for rash. Neurological: Negative for dizziness, weakness and headaches. Hematological: Negative for adenopathy. Does not bruise/bleed easily. Psychiatric/Behavioral: Negative for dysphoric mood. The patient is not nervous/anxious. Breast: Negative for tenderness and lump(s). Patient Vital Signs for the past 24 hrs: BP Pulse Height Weight 06/07/23 1120 163/81 69 154.9 cm (5' 1 ) 69.3 kg (152 lb 12.8 oz) Wt Readings from Last 3 Encounters: 06/07/23 69.3 kg (152 lb 12.8 oz) 02/23/23 64.4 kg (142 lb) 01/31/23 64.4 kg (142 lb) Physical Exam Vitals and nursing note reviewed. Constitutional: General: She is not in acute distress. Appearance: Normal appearance. She is normal weight. HENT: Head: Normocephalic and atraumatic. Right Ear: Tympanic membrane normal. Left Ear: Tympanic membrane normal. Nose: Nose normal. No congestion. Mouth/Throat: Mouth: Mucous membranes are moist. Pharynx: Oropharynx is clear. No oropharyngeal exudate. Eyes: General: No scleral icterus. Extraocular Movements: Extraocular movements intact. Conjunctiva/sclera: Conjunctivae normal. Pupils: Pupils are equal, round, and reactive to light. Cardiovascular: Rate and Rhythm: Normal rate and regular rhythm. Pulses: Normal pulses. Heart sounds: Normal heart sounds. No murmur heard. No gallop. Pulmonary: Effort: Pulmonary effort is normal. Breath sounds: Normal breath sounds. No wheezing, rhonchi or rales. Abdominal: General: Abdomen is flat. Bowel sounds are normal. Palpations: Abdomen is soft. There is no mass. Tenderness: There is no abdominal tenderness. There is no guarding. Hernia: No hernia is present. Musculoskeletal: General: No swelling, tenderness or deformity. Normal range of motion. Cervical back: No rigidity. Right lower leg: No edema. Left lower leg: No edema. Lymphadenopathy: Cervical: No cervical adenopathy. Skin: General: Skin is warm and dry. Capillary Refill: Capillary refill takes less than 2 seconds. Findings: No rash. Neurological: General: No focal deficit present. Mental Status: She is alert and oriented to person, place, and time. Mental status is at baseline. Cranial Nerves: No cranial nerve deficit. Motor: No weakness. Deep Tendon Reflexes: Reflexes normal. Psychiatric: Mood and Affect: Mood normal. Thought Content: Thought content normal. Assessment/Plan Diagnoses and all orders for this visit: Type 2 diabetes mellitus without complication, with long-term current use of insulin ([facility]) (HCC) (E11.9, Z79.4) (Primary) Comments: Stable and doing better at this time. Continue present Rx Orders: - POCT hemoglobin A1c Age-related osteoporosis without current pathological fracture (M81.0) Comments: Continue on Fosamax Orders: - Dexa Axial Skeleton Bone Density 1 or 2 Site; Future Dyslipidemia (E78.5) Comments: Doing well. HTN (hypertension), benign (I10) Comments: BP at target. S/P mitral valve repair (Z98.890) Comments: Stable follows with Cardiology. Tricuspid valve disorder (I07.9) Cerebrovascular accident (CVA) due to occlusion of other cerebral artery (HCC) (I63.59) Diagnosis: dm2 Length of time: >5years Frequency of BG tests: 4+ daily For duration: 6 months Frequency of Pump site changes: N/A If change, Q2 days reason: N/A Number of Injections per Day: 3+ - Requires therapeutic CGM and has diabetes - Has been using a home blood glucose monitor four times daily - Is insulin requiring, with 3 or more daily injections or an insulin pump - Treatment requires frequent adjustments of insulin by the patient on the basis of therapeutic CGMtesting Labs Lab Results Component Value Date HGBA1C 12.2 (H) 02/23/2023 Lab Results Component Value Date POCCHOL 110 05/20/2022 POCCHOL 192 01/19/2022 POCCHOL 111 09/10/2021 Lab Results Component Value Date POCHDL 36 05/20/2022 POCHDL 51 01/19/2022 POCHDL 58 09/10/2021 Lab Results Component Value Date POCLDL 44 05/20/2022 POCLDL 100 01/19/2022 POCLDL 39 09/10/2021 Lab Results Component Value Date POCTRIG 146 05/20/2022 POCTRIG 208 01/19/2022 POCTRIG 69 09/10/2021 No results found for: A1C Lab Results Component Value Date CREATININE 0.99 02/23/2023 CREATININE 1.26 (H) 04/20/2022 CREATININE 1.06 (H) 09/10/2021 Lab Results Component Value Date COLORU Straw 05/09/2021 CLARITYU Clear 05/09/2021 GLUCOSEUR Negative 05/09/2021 BILIRUBINUR Negative 05/09/2021 KETONESU Negative 05/09/2021 SPECGRAVU 1.024 05/09/2021 BLOODUR Trace (A) 05/09/2021 UROBILINOGEN <2.0 05/09/2021 Mehul Verdugo MD documented in this encounter Plan of Treatment Scheduled Orders Name Type Priority Associated Diagnoses Orde r Schedule Dexa Axial Skeleton Bone Density 1 or 2 Site Imaging Schedule Routine, Read Routine (OP Routine) Age-related osteoporosis without current pathological fracture Expected: 06/07/2023, Expires: 06/06/2024 documented as of this encounter Procedures Procedure Name Priority Date/Time Associated Diagnosis Comments ALBUMIN CREATININE RATIO, URINE Routine 06/07/2023 12:06 PM CDT Type 2 diabetes mellitus without complication, with long-term current use of insulin (CMS/HCC) (HCC) Age-related osteoporosis without current pathological fracture HTN (hypertension), benign S/P mitral valve repair 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 artery (HCC) TSH Routine 06/07/2023 11:59 AM CDT Type 2 [...] to occlusion of other cerebral artery (HCC) POCT HEMOGLOBIN A1C Routine 06/07/2023 1 1:04 AM CDT Type 2 diabetes mellitus without complication, with long-term current use of insulin (CMS/HCC) (HCC) documented in this encounter Results * Albumin Creatinine Ratio, Urine (06/07/2023 12:06 [...] AM CDT Performed at: ??01 - [address] ??[id number] Health Manager: Axel Hillman PhD, Phone: ??[phone] Mehul Verdugo MD LAB URINE ORDERABLES Final Re sult Performing Organization Address [facility] [[email or web address]] de Phone Number [facility] - * TSH (06/07/2023 11:59 AM CDT) Pathologist [facility] TSH 4.090 0.450 - 4.500 uIU/mL [facility] - 01 Blood 06/07/2023 11:5 9 AM CDT 06/07/2023 Narrative [facility] - 06/08/2023 12:11 PM CDT Performed at: ??01 - [facility] [employer] [address] ??[id number] Health Manager: Axel Hillman PhD, Phone: ??[phone] Mehul Verdugo MD LAB BLOOD ORDERABLES Final Re sult Performing Organization Address [facility] [[email or web address]] de Phone Number [facility] * (ABNORMAL) Comprehensive metabolic panel [...] PM CDT Performed at: ??01 - [facility] [address] ??[id number] Health Manager: Axel Hillman PhD, Phone: ??[phone] us Mehul Verdugo MD LAB BLOOD ORDERABLES Final Re sult [facility] * (ABNORMAL) POCT hemoglobin A1c (06/07/2023 11:04 AM CDT) Hemoglobin A1C, POC 8.3 % Blood 06/07/2023 11:0 4 AM CDT Mehul Verdugo MD POINT OF CARE TEST ORDERABLES Final Result documented in this encounter Visit Diagnoses Diagnosis Type 2 diabetes mellitus without complication, with long-term current use of insulin ([facility]/HCC) (HCC)- Primary Age-related osteoporosis without current pathological fracture Dyslipidemia Other and unspecified hyperlipidemia HTN (hypertension), benign Essential hypertension, benign S/P mitral valve repair Other postprocedural status Tricuspid valve disorder Tricuspid valve disorders, specified as nonrheumatic Cerebrovascular accident (CVA) due to occlusion of other cerebral artery ([facility]) documented in this encounter Discontinued Medications Medication Sig Discontinue Reason Start Date End Da te alendronate (FOSAMAX) 70 mg tablet Take 1 tablet (70 mg total) by mouth every 7 days Take in the morning with a full glass of water, on an empty stomach, and do not take anything else by mouth or lie down for the next 30 min. Duplicate order 05/25/2021 06/07/2023 documented as of this encounter Care Teams Cone Baker Machine Relationship Specialty Start Date End Date Mehul Verdugo MD [address] [facility] [address] [place] [address] PCP - General Internal Medicine 09/10/21 Paulette Geller MD [address] [place] [address] Consulting Physician Gastroenterology 05/22/21 documented as of this encounter
--- OUTSIDE RECORDS SUMMARY | 2024-02-28 15:32 | XMS_ITS | Encounter Summary ---
Author Organization [facility] Address [address] [place] [address] Care Team Providers Care Devil Dog Name Role Phone Paulette Geller MD Unavailable + Mehul Verdugo MD Primary Care Provider [phone] Encounter Details Date Type Department Care Team (Late st Contact Info) Description 06/10/2023 [facility] [address] [facility] [address] [place] [facility] [place] [address] [place], [place] [address] [place] [address] Social History Tobacco Use Types Packs/Day Years [...] on file 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 documented in this encounter Plan of Treatment Not on file documented as of this encounter Visit Diagnoses Not on filedocumented in this encounter Care Teams Devil Dog Relationship Specialty Start Date End Date Mehul Verdugo MD [address] [facility] [address] [place] [address] PCP - General Internal Medicine 09/10/21 Paulette Geller MD [address] [place] [address] Consulting Physician Gastroenterology 05/22/21 documented as of this encounter
--- OUTSIDE RECORDS SUMMARY | 2024-02-28 15:32 | XMS_ITS | Encounter Summary ---
Author Organization [facility] Address [address] [place] [address] Phone Care Team Providers Care Manager Digital Ad Operations Name Role Phone Paulette Geller MD Unavailable + Mehul Verdugo MD Primary Care Provider [phone] Encounter Details Date Type Department Care Team (Late st Contact Info) Description 09/15/2023 Telephone [facility] Cardiology [address] [facility] 8[address] [place] [address] [place] [address] Sp Madrid MD [address] [facility] [address] [place] [address] Social History Tobacco Use Types Packs/Day Years [...] on file 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 Madrid for the pt. documented in this encounter Plan of Treatment Not on file documented as of this encounter Visit Diagnoses Not on filedocumented in this encounter Care Teams Manager Digital Ad Operations Relationship Specialty Start Date End Date Mehul Verdugo MD [address] [facility] [address] [place] [address] PCP - General Internal Medicine 09/10/21 Paulette Geller MD [address] [place] [address] Consulting Physician Gastroenterology 05/22/21 documented as of this encounter
--- OUTSIDE RECORDS SUMMARY | 2024-02-28 15:32 | XMS_ITS | Encounter Summary ---
Author Organization [facility] Address [address] [place] [address] Phone Care Team Providers Care Ordnance Handler Name Role Phone Paulette Geller MD Unavailable + Mehul Verdugo MD Primary Care Provider [phone] Reason for Visit * Reason Onset Date Comments Appointment 09/27/2023 Encounter Details Date Type Department Care Team (Late st Contact Info) Description 09/27/2023 Telephone [facility] Cardiology [address] 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 Madrid. Please call daughter when scheduling. Azul [phone] documented in this encounter Plan of Treatment Not on file documented as of this encounter Visit Diagnoses Not on filedocumented in this encounter Care Teams Ordnance Handler Relationship Specialty Start Date End Date Mehul Verdugo MD [address] [facility] [address] [place] [address] PCP - General Internal Medicine 09/10/21 Paulette Geller MD [facility] [address] [place] [address] Consulting Physician Gastroenterology 05/22/21 documented as of this encounter
--- OUTSIDE RECORDS SUMMARY | 2024-02-28 15:32 | XMS_ITS | Encounter Summary ---
Author Organization [facility] Address [address] [place] [address] Phone Care Team Providers Care Dye Tub Tender Name Role Phone Paulette Geller MD Unavailable + Mehul Verdugo MD Primary Care Provider [phone] Encounter Details Date Type Department Care Team (Late st Contact Info) Description 02/09/2024 1:15 PM INCIDENT MANAGER Office Visit [facility] Cardiology [address] [facility] [address] [place] [address] Sp Madrid MD [address] [facility] [address] [place] [address] Dyslipidemia (Primary Dx) Social History Tobacco Use Types Packs/Day Years [...] on file Legal Sex Female 11:30 PM INCIDENT MANAGER Gender Identity Female 06/15/2023 1:45 PM CDT Sexual Orientation Straight 06/15/2023 1: 45 PM CDT documented as of this encounter Last Filed Vital Signs Vital Sign Reading Time Taken Comments Blood Pressure 148/70 02/09/2024 1:04 PM INCIDENT MANAGER Pulse 80 02/09/2024 1:04 PM INCIDENT MANAGER Temperature 36.7 ??C (98 ??F) 02/09/2024 1:04 PM INCIDENT MANAGER Respiratory Rate - - Oxygen Saturation 96% 02/09/2024 1:04 PM INCIDENT MANAGER Inhaled Oxygen Concentration - - Weight 68.9 kg (152 lb) 02/09/2024 1:04 PM INCIDENT MANAGER Height 154.9 cm (5' 1 ) 02/09/2024 1:04 PM INCIDENT MANAGER Body Mass Index 28.72 02/09/2024 1:04 PM INCIDENT MANAGER documented in this encounter Patient Instructions * Patient Instructions* Danelle Campa CMA - 02/09/2024 1:15 PM INCIDENT MANAGER Stop amlodipine Increase lasix to 40 mg a day in am , change it to every other day once leg swelling improves. Rtc 3 m BNP, BMP in next few days DENT MANAGER DENT MANAGER documented in this encounter Ordered Prescriptions Prescription Sig Dispense Quantity Refills Last Filled Start Date End Date furosemide (LASIX) 40 mg tablet Take 1 tablet (40 mg total) by mouth daily 40 mg a day in am , change it to every other day once leg swelling improves. 90 tablet 3 02/09/2024 furosemide (LASIX) 40 mg tablet Take 1 tablet (40 mg total) by mouth daily and then 2 tablets by mouth (40 mg) alternating daily. 90 tablet 3 02/09/2024 4 furosemide (LASIX) 40 mg tablet Take 1 tablet (40 mg total) by mouth daily and then 2 tablets by mouth (40 mg) alternating daily. 90 tablet 3 02/09/2024 4 documented in this encounter Progress Notes * Sp Madrid MD - 02/09/2024 1:15 PM CST Images from the original note were not included. 02/09/2024 Cardiovascular Division [facility] [address] [place], [place] [address] Cardiology Consult Visit Diagnosis Yuliana Johnson is a pleasant 83 y.o. female who had a office consult with a following medical problems 1. Mitral valve disorder. She had a mitral valve repair with 26-mm annuloplasty Physio II ring and a posterior mitral valve leaflet, triangular resection for mitral valve insufficiency. KARLY done on 04/20/2018 :Normal LV and RV size and systolic function. Mild LAE. S/P TV and MV annuloplasty rings with physiological performances of both rings. DOT with no thrombus and normal Doppler empyting velocities. No pericardial effusion. No PFO/ASD seen by color Doppler. Saline contrast study NEGATIVE for right to left shunt (view #[id number]). 2. Tricuspid valve disorder. She had tricuspid valve repair with 32-mm annuloplasty ring on December 2014. 3. Benign essential hypertension. 4. Minimal coronary artery disease. 5. Moderate pulmonary hypertension. 6. Type 2 diabetes mellitus. 7. Dyslipidemia. History of Present Illness: \ She came for a follow up. She is doing better. No back pain. She has a history of T12-L1 Fracture due to mechanical fall. She underwent vertebroplasty on 05/23/2020. .This was mechanical injury. She is short of breath. She have left eye floaters. According to the her memory is fading She hadan KARLY done, No cardiac source of emboli noted. No syncope, fever noted. She is tolerating anticoagulation well She had a cath done on 10/28/2014 before the valvular heart surgery; she had minimal atherosclerotic coronary artery disease at that time. She is afebrile. Denies CP, SOB, PND, Orthopnea,dizziness, or lightheadedness. She has developed leg swelling . No Known Allergies Current Outpatient Medications Medication Sig Dispense Refill acetaminophen (TYLENOL) 325 mg tablet Take 2 tablets (650 mg total) by mouth every 4 (four) hours as needed for pain or headaches 20 tablet 0 apixaban (Eliquis) 2.5 mg tablet Take 1 tablet (2.5 mg total) by mouth 2 (two) times a day 180 tablet 3 aspirin 81 mg enteric coated tablet Take 1 tablet (81 mg total) by mouth daily blood-glucose meter (True Metrix Glucose Meter) [facility] [place] Use to test blood sugar once daily DX: E11.9 non insulin dependent 1 each 0 carvediloL (COREG) 25 mg tablet Take 1 tablet (25 mg total) by mouth 2 (two) times a day 180 tablet3 insulin degludec (TRESIBA) 100 unit/mL (3 mL) pen for injection INJECT 42 UNITS UNDER THE SKIN ONCEDAILY 15 mL 3 lancets 30 gauge [facility] [place] One Touch Delica Lancets - Use to test blood sugar 2 times per day.Diag code 11.9 100 each 3 lancets 30 gauge misc Test sugars twice daily dx ell.9 accucheck elizabeth plus 100 each 3 losartan (COZAAR) 100 mg tablet Take 1 tablet by mouth once daily 90 tablet 2 mirtazapine (REMERON) 7.5 mg tablet TAKE 1 TABLET EVERY NIGHT 90 tablet 3 OneTouch Verio test strips strip Use to test blood sugar 2 times per day.Diag code 11.9 100 strip 3 pen needle, diabetic 31 gauge x 5/16 needle Use to inject 1-4 times daily as directed. 100 each 4 pravastatin (PRAVACHOL) 40 mg tablet Take 1 tablet (40 mg total) by mouth daily 90 tablet 1 furosemide (LASIX) 40 mg tablet Take 1 tablet (40 mg total) by mouth daily 40 mg a day in am , change it to every other day once leg swelling improves. 90 tablet 3 No current facility-administered medications for this visit. Past Medical History: Diagnosis Date Cancer (CMS/HCC) (HCC) breast Diabetes mellitus (HCC) Hyperlipidemia Hypertension Past Surgical History: Procedure Laterality Date HYSTERECTOMY KYPHOPLASTY THORACIC N/A 05/23/2020 MASTECTOMY Left MITRAL VALVE REPAIR Social History Tobacco Use Smoking status: Never Smokeless tobacco: Never Substance and Sexual Activity Alcohol use: No Drug use: No Sexual activity: Defer Family History Problem Relation Age of Onset Alcohol abuse Mother Alcohol abuse Father Hypertension Maternal Grandfather Family history of hypertension - Relation: Grandfather (Added by TW Conv)/Family history of hypertension - Relation: Grandfather (Added by Conv) Hypertension Other Family history of hypertension - Relation: Grandmother (Added by Conv) Hypertension Other Family history of hypertension - Relation: Grandmother (Added by TW Conv) PHYSICAL EXAMINATION Blood pressure 148/70, pulse 80, temperature 36.7 ??C (98 ??F), height 154.9 cm (5' 1 ), weight 68.9 kg (152 lb), SpO2 96%. GEN: pleasant in NAD; alert, comfortable HENT: NCAT, MMM, anicteric Neck: no trauma, no JVD CVS: RRR, S1S2, no rubs/murmurs/gallops PULM: non-labored, CTAB, good inspiratory effort ABD: soft, not tender to palpation EXT: equal radial pulses, +2 B/L edema Neuro: motor and sensation grossly intact Skin: warm, dry, no cyanosis Echo 02/09/24 LA is moderately dilated. Normal RV cavity [...] LV myocardial longitudinal function and strain pattern. Carotid Doppler 02/10/19 IMPRESSION: 1. There is minimal atherosclerotic plaque in both carotid bifurcations which is not of hemodynamic significance ( less than 50% stenosis ). 2. Vertebral artery flow is antegrade bilaterally. The estimated degree of stenosis of the internal carotid arteries reported on this examination is based on measurement criteria utilized in the NASCET study. Cardiac Cath 12/15/14 Selective Coronary Arteriography: Left Coronary System: 1. Left main coronary artery: The left main coronary artery is normal. 2. Left anterior descending coronary artery: The proximal, mid, and distal portions of the left anterior descending coronary artery are free of significant disease. 3. Left circumflex coronary artery: The proximal left circumflex coronary artery has minimal plaque and is a non-dominant vessel. Right Coronary System: The right coronary artery is a large dominant vessel free of significant disease. DIAGNOSTIC IMPRESSIONS: 1. Minimal coronary artery disease. 2. Severe mitral regurgitation. 3. Moderate pulmonary hypertension. I reviewed the following labs and discussed with the patient. Lab Results Component Value Date CHOL 159 02/23/2023 CHOL 105 05/10/2021 CHOL 114 02/09/2019 POCCHOL 110 05/20/2022 POCCHOL 192 01/19/2022 POCCHOL 111 09/10/2021 Lab Results Component Value Date HDL 29 (L) 02/23/2023 HDL 46 05/10/2021 HDL 39 (L) 02/09/2019 POCHDL 36 05/20/2022 POCHDL 51 01/19/2022 POCHDL 58 09/10/2021 Lab Results Component Value Date LDLCALC 66 02/23/2023 LDLCALC 46 05/10/2021 LDLCALC 54 02/09/2019 LDL 17 01/08/2015 POCLDL 44 05/20/2022 POCLDL 100 01/19/2022 POCLDL 39 09/10/2021 Lab Results Component Value Date TRIG 321 (H) 02/23/2023 TRIG 65 05/10/2021 TRIG 103 02/09/2019 POCTRIG 146 05/20/2022 POCTRIG 208 01/19/2022 POCTRIG 69 09/10/2021 Lab Results Component Value Date POCCHDLR 3.0 05/20/2022 POCCHDLR n/a 09/30/2020 POCCHDLR 3.1 04/22/2020 Lab Results Component Value Date POCNONHDL 3 05/20/2022 POCNONHDL n/a 09/30/2020 POCNONHDL 69 04/22/2020 Lab Results Component Value Date POCCHLPL 110 05/20/2022 POCCHLPL <100 09/30/2020 POCCHLPL 102 04/22/2020 Lab Results Component Value Date GLUCOSE 166 (H) 06/07/2023 CALCIUM 8.9 06/07/2023 SODIUM 140 06/07/2023 POTASSIUM 4.2 02/23/2023 CO2 18 (L) 06/07/2023 CHLORIDE 108 (H) 06/07/2023 BUNSER 19 06/07/2023 CREATININE 1.01 (H) 06/07/2023 Lab Results Component Value Date HGBA1C 9.1 12/01/2023 Lab Results Component Value Date WBC 6.1 02/23/2023 HGB 14.3 02/23/2023 HCT 44.7 02/23/2023 MCV 84.3 02/23/2023 LABPLAT 169 02/23/2023 Lab Results Component Value Date ALT 11 06/07/2023 AST 20 06/07/2023 ALKPHOS 65 06/07/2023 BILITOT 0.3 06/07/2023 Lab Results Component Value Date INR 1.8 (H) 05/19/2021 INR 1.48 (H) 01/07/2015 INR 2.4 (H) 01/07/2015 Assesment/Plan: 1. Mitral valve disorder. She has no signs of heart failure. She is on losartan 100 mg a day. She understands to use endocardial prophylaxis. KARLY was negative for blood clot ,shunt or vegetations. Eho today showed pseudonormal diastolic function ,will increase lasix form 20 mg to 40 mg a day Will get an BMP.BNP. ordered. Lower amlodipine ot 5 mg a day. 2. Hypertension. The blood pressure is controlled on carvedilol and amlodipine. Continue low salt diet. She has developed swelling in the lower extremity. Will stop the amlodipine increase Lasix to 40 mg a day get a BNP BMP in next few days low-salt diet. Once her swelling improved then she will change her Lasix to every other day. 3. Dyslipidemia. She is on fenofibrate 160 mg a day and low-fat diet. Tolerates regimen well. 4. Type 2 diabetes mellitus. She is on metformin and glimepiride. HbA1c 6.2 on 10/09/2018 6. 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 She is on eliquis 2.5 mg twice a day, 7. Diastolic heart failure : She have leg swelling , will take lasix 40 mg daily till her leg swelling improves then she will change it to p.r.n. only. Her leg swelling could be due to amlodipine which I have already stopped it.. Low salt diet. RTc 4 M Thank you for letting me participating in this patient care. Please feel free to contact my office regarding their cardiac problems. Sp Madrid M.D., F.Cathryn.Trinidad.Trinidad., M.B.A. assault amphibious vehicle crewman Cardiovascular Division [facility] [employer] [place] [address] This note contains information and findings from prior encounters which remain the same for today'sencounter. I have reviewed and made updates where applicable. This note was written using a voice recognition system hardware device. Please note there may be variance in spelling, grammar, and syntax because of the voice recognition system hardware. Therefore,not every sentence has been reviewed in its entirety. If there are any concerns about verbage aboveplease contact me at [phone]. DENT MANAGER documented in this encounter Miscellaneous Notes * Addendum Note - Mendy Johns RN - 02/09/2024 1:15 PM CSTAddended by: MENDY JOHNS on: 02/23/2024 11:24 AM Modules accepted: Orders DENT MANAGER documented in this encounter Plan of Treatment Not on file documented as of this encounter Visit Diagnoses Diagnosis Dyslipidemia- Primary Other and unspecified hyperlipidemia documented in this encounter Discontinued Medications Medication Sig Discontinue Reason Start Date End Da te amLODIPine (NORVASC) 5 mg tabletIndications:hype rtension Take 1 tablet (5 mg total) by mouth daily Therapy completed 09/27/2023 02/09/2024 furosemide (LASIX) 20 mg tablet Take 1 tablet (20 mg total) by mouth daily and then 2 tablets by mouth (40 mg) alternating daily. Reorder 09/14/2023 02/09/2024 furosemide (LASIX) 40 mg tablet Take 1 tablet (40 mg total) by mouth daily and then 2 tablets by mouth (40 mg) alternating daily. Reorder 02/09/2024 02/09/2024 furosemide (LASIX) 40 mg tablet Take 1 tablet (40 mg total) by mouth daily and then 2 tablets by mouth (40 mg) alternating daily. 02/09/2024 02/09/2024 documented as of this encounter Care Teams Dye Tub Tender Relationship Specialty Start Date End Date Mehul Verdugo MD [address] [facility] [address] [place] [address] PCP - General Internal Medicine 09/10/21 Paulette Geller MD [address] [place] [address] Consulting Physician Gastroenterology 05/22/21 documented as of this encounter
--- OUTSIDE RECORDS SUMMARY | 2024-02-28 15:32 | XMS_ITS | Encounter Summary ---
Author Organization [facility] Address [address] [place] [address] Phone Care Team Providers Care Erection Shop Supervisor Name Role Phone Paulette Geller MD Unavailable + Mehul Verdugo MD Primary Care Provider [phone] Encounter Details Date Type Department Care Team (Late st Contact Info) Description 09/14/2023 Orders Only [facility] Cardiology [address] [facility] [address] [place] [address] [place] [address] Sp Madrid MD [address] [facility] [address] [place] [address] Social History Tobacco Use Types [...] on file Legal Sex Female 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 60 tablet 3 09/14/2023 documented in this encounter Plan of Treatment Not on file documented as of this encounter Visit Diagnoses Not on filedocumented in this encounter Discontinued Medications Medication Sig Discontinue Reason Start Date End Da te furosemide (LASIX) 20 mg tablet Take 1 tablet (20 mg total) by mouth daily and then 2 tablets by mouth (40 mg) alternating daily. Reorder 02/02/2023 09/14/2023 apixaban (Eliquis) 2.5 mg tabletIndications:VTE Prophylaxis Take 1 tablet by mouth twice daily Reorder 05/09/2023 09/14/2023 documented as of this encounter Care Teams Erection Shop Supervisor Relationship Specialty Start Date End Date Mehul Verdugo MD [address] [facility] [address] [place] [address] PCP - General Internal Medicine 09/10/21 Paulette Geller MD [address] [place] [address] Consulting Physician Gastroenterology 05/22/21 documented as of this encounter
--- OUTSIDE RECORDS SUMMARY | 2024-02-28 15:32 | XMS_ITS | Encounter Summary ---
Author Organization [facility] Address [address] [place] [address] Care Team Providers Care Clerical Investigator Name Role Phone Paulette Geller MD Unavailable + Mehul Verdugo MD Primary Care Provider [phone] Reason for Referral * Consultation (Routine) - Closed Specialty Diagnoses / Procedures Referred By Cata quintanilla Referred To Contact Otolaryngology Diagnoses Ringing in ears, bilateral Mehul Verdugo MD [address] [facility] [address] [place] [address] Phone: tel: fax: External Order Referral ID Status Reason Start Date Expiration Date V isits Requested Visits Authorized [id number] Closed Specialty Services Required 09/12/2023 10/11/2024 1 1 Question Answer Please select the performing region: External Order [171] # of visits: 1 Encounter Details Date Type Department Care Team (Late st Contact Info) Description 09/12/2023 [facility] [address] [facility] [address] [place] [address] Mehul Verdugo MD [address] [facility] [address] [place] [address] Social History Tobacco Use Types Packs/Day Years [...] on file Legal Sex Female 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 BED 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 Gender Identity Female 06/15/2023 1:45 PM CDT Sexual Orientation Straight 06/15/2023 1: 45 PM CDT documented as of this encounter Miscellaneous Notes * Telephone Encounter - Melanie Wilkes MA - 09/12/2023 2:33 PM CDT Pt spouse aware * Telephone Encounter - Melanie Wilkes MA - 09/12/2023 2:30 PM CDT Ent referral entered Dr Mcintyre P [phone] * Telephone Encounter - Melanie Wilkes MA - 09/12/2023 1:07 PM CDT No sinus issues or ear pain She has been hard of hearing for along time She has hearing aids but does not wear them * Telephone Encounter - No Franz - 09/12/2023 11:03 AM CDT No voicemail set up * Telephone Encounter - Mehul Verdugo MD - 09/12/2023 9:42 AM CDT If she has tinnitus, this is difficult Any sinus issues? Any hearing loss? Any ear pain? * Telephone Encounter - No Franz - 09/12/2023 8:57 AM CDT Pt spouse called in and said that pt started having tendinitis the morning in both her ears the morning. Having a difficult time hears and an buzzing sound in both ears. Has not taken anything for her sx. No allergies to medication. Taking [employer] documented in this encounter Plan of Treatment Scheduled Referrals Name Type Priority Associated Diagnoses Order Schedule Ambulatory referral to ENT Outpatient Referral Routine Ringing in ears, bilateral Expected: 09/26/2023 (Approximate), Expires: 09/11/2024 documented as of this encounter Visit Diagnoses Diagnosis Ringing in ears, bilateral- Primary documented in this encounter Care Teams Clerical Investigator Relationship Specialty Start Date End Date Mehul Verdugo MD [address] [facility] [address] [place] [address] PCP - General Internal Medicine 09/10/21 Paulette Geller MD [address] [place] [address] Consulting Physician Gastroenterology 05/22/21 documented as of this encounter
--- OUTSIDE RECORDS SUMMARY | 2024-02-28 15:32 | XMS_ITS | Encounter Summary ---
Author Organization [facility] Address [address] [place] [address] Care Team Providers Care Experimental Rocketsled Mechanic Name Role Phone Paulette Geller MD Unavailable + Mehul Verdugo MD Primary Care Provider [phone] Reason for Visit * Reason Comments Diabetes Hypertension Hyperlipidemia Encounter Details Date Type Department Care Team (Late st Contact Info) Description 12/01/2023 1:45 PM CDT Office Visit [facility] [address] [facility] [address] [place] [id number] Mehul Verdugo MD [address] [facility] [address] [place] [address] Type 2 diabetes mellitus without complication, with long-term current use of insulin (CMS/HCC) (HCC) (Primary Dx); Dyslipidemia; HTN (hypertension), benign; Pulmonary hypertension (CMS/HCC) (HCC); Memory loss Social History Tobacco Use Types Packs/Day Years [...] on file 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 Gender Identity Female 06/15/2023 1:45 PM CDT Sexual Orientation Straight 06/15/2023 1: 45 PM CDT documented as of this encounter Last Filed Vital Signs Vital Sign Reading Time Taken Comments Blood Pressure 143/74 12/01/2023 1:47 PM CDT Pulse 72 12/01/2023 1:47 PM CDT Temperature - - Respiratory Rate - - Oxygen Saturation - - Inhaled Oxygen Concentration - - Weight 68.9 kg (152 lb) 12/01/2023 1:47 PM CDT Height 154.9 cm (5' 1 ) 12/01/2023 1:47 PM CDT Body Mass Index 28.72 12/01/2023 1:47 PM CDT documented in this encounter Progress Notes * Mehul Verdugo MD - 12/01/2023 1:45 PM CDT Images from the original note were not included. Subjective/Objective Patient ID: Yuliana Johnson is a 83 y.o. female. Chief Complaint Diabetes, Hypertension, and Hyperlipidemia Diabetes Hypertension Hyperlipidemia Patient with memory loss, hypertension, and diabetes. Patient's blood sugar has slowly been gettingbetter. There is no hypoglycemia. Past Surgical History: Procedure Laterality Date HYSTERECTOMY [...] Free, Intramuscular 02/09/2019 Influenza, Unspecified 01/15/2015, 12/17/2020 Pfizer SARS-CoV-2 Monovalent Vaccination (12+ Yrs) CHASE-READY TO USE 07/20/2021 Pfizer SARS-CoV-2 Monovalent Vaccination (12+ Yrs) PURPLE 04/01/2020, 04/29/2020, 01/01/2021 Pneumococcal Conjugate PCV 13 08/21/2016 Pneumococcal Conjugate Pcv20 09/10/2021 Pneumococcal Conjugate, Unspecified 01/15/2015 Pneumococcal Polysaccharide PPV23 01/15/2015 ZOSTER Recombinant 09/10/2021 Current Outpatient Medications Medication Sig acetaminophen (TYLENOL) 325 mg tablet Take 2 tablets (650 mg total) by mouth every 4 (four) hours as needed for pain or headaches amLODIPine (NORVASC) 5 mg tablet Take 1 tablet (5 mg total) by mouth daily apixaban (Eliquis) 2.5 mg tablet Take 1 tablet (2.5 mg total) by mouth 2 (two) times a day aspirin 81 mg enteric coated tablet Take 1 tablet (81 mg total) by mouth daily (Patient not taking:Reported on 12/01/2023) blood-glucose meter (True Metrix Glucose Meter) [facility] Use to test blood sugar once daily DX: E11.9 non insulin dependent carvediloL (COREG) 25 mg tablet Take 1 tablet (25 mg total) by mouth 2 (two) times a day furosemide (LASIX) 20 mg tablet Take 1 tablet (20 mg total) by mouth daily and then 2 tablets by mouth (40 mg) alternating daily. insulin degludec (TRESIBA) 100 unit/mL (3 mL) pen for injection INJECT 42 UNITS UNDER THE SKIN ONCEDAILY lancets [address] [facility] One Touch Delica Lancets - Use to test blood sugar 2 times per day.Diag code 11.9 lancets 30 gauge misc Test sugars twice daily dx ell.9 accucheck elizabeth plus losartan (COZAAR) 100 mg tablet Take 1 tablet (100 mg total) by mouth daily mirtazapine (REMERON) 7.5 mg tablet TAKE 1 TABLET EVERY NIGHT OneTouch Verio test strips strip Use to test blood sugar 2 times per day.Diag code 11.9 pen needle, diabetic 31 gauge x 5/16 needle Use to inject 1-4 times daily as directed. pravastatin (PRAVACHOL) 40 mg tablet Take 1 tablet (40 mg total) by mouth daily Review of Systems Patient Vital Signs for the past 24 hrs: BP Pulse Height Weight 12/01/23 1347 143/74 72 154.9 cm (5' 1 ) 68.9 kg (152 lb) Wt Readings from Last 3 Encounters: 12/01/23 68.9 kg (152 lb) 10/10/23 69.4 kg (153 lb) 06/07/23 69.3 kg (152 lb 12.8 oz) Physical Exam Vitals and nursing note reviewed. [...] complication, with long-term current use of insulin ([facility]) ([facility]) (E11.9, Z79.4) (Primary) Comments: A1c slowly better. Will increase insulin to 52 units. Orders: - POCT hemoglobin A1c Dyslipidemia (E78.5) Comments: Doing well. HTN (hypertension), benign (I10) Comments: BP at target. Pulmonary hypertension ([facility]) ([facility]) (I27.20) Comments: Stable. No signs or symptoms of CHF Memory loss (R41.3) Comments: Stable Diagnosis: dm2 Length of time: >5 years Frequency of BG tests: 4+ For duration: 1 year Frequency of Pump site changes: n/a If change, Q2 days reason: n/a Number of Injections per Day: 1 - Requires therapeutic CGM and has diabetes - Has been using a home blood glucose monitor four times daily - Is insulin requiring, with 3 or more daily injections or an insulin pump - Treatment requires frequent adjustments of insulin by the patient on the basis of therapeutic CGMtesting Labs Lab Results Component Value Date HGBA1C 9.1 12/01/2023 Lab Results Component Value Date POCCHOL 110 [...] A1C Lab Results Component Value Date CREATININE 1.01 (H) 06/07/2023 CREATININE 0.99 02/23/2023 CREATININE 1.26 (H) 04/20/2022 Lab Results Component Value Date COLORU Straw 05/09/2021 CLARITYU Clear 05/09/2021 GLUCOSEUR Negative 05/09/2021 BILIRUBINUR Negative 05/09/2021 KETONESU Negative 05/09/2021 SPECGRAVU 1.024 05/09/2021 BLOODUR Trace (A) 05/09/2021 UROBILINOGEN <2.0 05/09/2021 Mehul Verdugo MD documented in this encounter Plan of Treatment Not on file documented as of this encounter Procedures Procedure Name Priority Date/Time Associated Diagnosis Comments POCT HEMOGLOBIN A1C Routine 12/01/2023 1 :49 PM CDT Type 2 diabetes mellitus without complication, with long-term current use of insulin ([facility]) ([facility]) documented in this encounter Results * (ABNORMAL) POCT hemoglobin A1c (12/01/2023 1:49 PM CDT) Hemoglobin A1C, POC 9.1 4.0 - 5.6 % Blood 12/01/2023 1:49 PM CDT Meuhl Verdugo MD POINT OF CARE TEST ORDERABLES Final Result documented in this encounter Visit Diagnoses Diagnosis Type 2 diabetes mellitus without complication, with long-term current use of insulin (CMS/HCC) ([facility])- Primary Dyslipidemia Other and unspecified hyperlipidemia HTN (hypertension), benign Essential hypertension, benign Pulmonary hypertension (CMS/HCC) ([facility]) Other chronic pulmonary heart diseases Memory loss documented in this encounter Discontinued Medications Medication Sig Discontinue Reason Start Date End Da te alendronate (FOSAMAX) 70 mg tabletIndications:Post-Me nopausal Osteoporosis Take 1 tablet (70 mg total) by mouth every 7 days Therapy completed 12/01/2023 cephalexin (Keflex) 500 mg capsuleIndications:Urinar y Tract/Genitourinary Infection Take 1 capsule (500 mg total) by mouth 2 (two) times a day Therapy completed 12/01/2023 clopidogreL (PLAVIX) 75 mg tablet Take 1 tablet (75 mg total) by mouth daily Therapy completed 03/25/2022 12/01/2023 fenofibrate (TRIGLIDE) 160 mg tabletIndications:hyperli pidemia Take 1 tablet by mouth once daily Therapy completed 05/09/2023 12/01/2023 levETIRAcetam (KEPPRA) 500 mg tablet Take 1 tablet (500 mg total) by mouth every 12 (twelve) hours Therapy completed 04/29/2022 12/01/2023 metFORMIN (GLUCOPHAGE) 500 mg tablet Take 1 tablet (500 mg total) by mouth 2 (two) times a day with meals Therapy completed 05/25/2021 12/01/2023 potassium chloride ER 20 mEq CR tablet Take 1 tablet by mouth once daily Therapy completed 01/19/2022 12/01/2023 tiotropium bromide (SPIRIVA RESPIMAT) 2.5 mcg/actuation inhaler Inhale 2 puffs daily Therapy completed 03/26/2021 12/01/2023 zolpidem (AMBIEN) 5 mg tablet TAKE 1 TABLET BY MOUTH NIGHTLY NEEDED FOR SLEEP Therapy completed 02/15/2022 12/01/2023 documented as of this encounter Care Teams Experimental Rocketsled Mechanic Relationship Specialty Start Date End Date Mehul Verdugo MD [address] [facility] [address] [place] [address] PCP - General Internal Medicine 09/10/21 Paulette Geller MD [facility] [address] [place] [address] Consulting Physician Gastroenterology 05/22/21 documented as of this encounter
--- OUTSIDE RECORDS SUMMARY | 2024-02-28 15:33 | XMS_ITS | Encounter Summary ---
Author Organization [facility] Address [address] [place] [address] Care Team Providers Care Tank Storage Supervisor Name Role Phone Paulette Geller MD Unavailable + Mehul Verdugo MD Primary Care Provider [phone] Reason for Visit * Reason Onset Date Comments Hyperglycemia 01/28/2023 Encounter Details Date Type Department Care Team (Late st Contact Info) Description 01/28/2023 [facility] [address] [facility] [address] [place] [phone] Mehul Verdugo MD [address] [facility] [address] [place] [address] Hyperglycemia Social History Tobacco Use Types Packs/Day Years Used Date Smoking Tobacco: Never Smokeless Tobacco: Never Alcohol Use Standard Drinks/Week Comments No 0 (1 standard drink = 0.6 oz pur e alcohol) OASIS D0700: Social Isolation Answer Da te Recorded Frequency of experiencing loneliness or isolatio n Never 12/15/2022 OASIS A1250: Transportation Answer Date Recorded Lack of Transportation (Medical) No 12/15/2022 Lack of Transportation (Non-Medical) No 12/15/2022 Patient Unable or Declines to Respond No 12/15/2022 OASIS B1300: Health Literacy Answer Abhishek e Recorded Frequency of needing help to read materials from doctor or pharmacy Sometimes 12/15/2022 PHQ-2 Answer Date Recorded PHQ-2 Total Score (If total score is 3 or more points, staff should administer the PHQ-9) 0 05/27/2021 Comments No Sex and Gender Information Value Date Recorded Sex Assigned at Not on file 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 E PLASTICS * Telephone Encounter - Mehul Verdugo MD - 01/28/2023 12:17 PM CST Hi Jacquie, Let increase her tresiba. 20->24 units daily E PLASTICS * Telephone Encounter - No Franz - 01/28/2023 12:12 PM NURSE PLASTICS Bradley with [facility] homecare calling she was with patient and her BS was at 531. Patient did go to ER on 01/25 and has UTI and is on cephalexin Patient had 3 slices of toast, one with jelly and a hard boiled egg about 9:00 AM. Had the Tresiba 20 units prior to eating. Patient was feeling better today than she was on Tuesday but still just not back to 100% CB [phone] E PLASTICS documented in this encounter Plan of Treatment Not on file documented as of this encounter Visit Diagnoses Not on filedocumented in this encounter Care Teams Tank Storage Supervisor Relationship Specialty Start Date End Date Mehul Verdugo MD [address] [facility] [address] [place] [address] PCP - General Internal Medicine 09/10/21 Paulette Geller MD [address] [facility] [address] [place] [address] Consulting Physician Gastroenterology 05/22/21 documented as of this encounter
--- OUTSIDE RECORDS SUMMARY | 2024-02-28 15:33 | XMS_ITS | Encounter Summary ---
Author Organization [facility] Address [address] [place] [address] Care Team Providers Care Turnaround Planner Name Role Phone Paulette Geller MD Unavailable + Mehul Verdugo MD Primary Care Provider [phone] Reason for Visit * Auth/Cert (Routine) Specialty Diagnoses / Procedures Referred By Cata t Referred To Contact Referral ID Status Reason Start Date Expiration Date Visits Re quested Visits Authorized [id number] 1 60 Encounter Details Date Type Department Care Team (Late st Contact Info) Description 01/28/2023 10:00 AM MOGUL OPERATOR Home Care Visit [facility] [address] [address] [address] [place] [address] Bradley Mota, EDD SN HOME VISIT Social History Tobacco Use Types Packs/Day Years [...] on file 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 Educated on s/s of infection, fall prevention, and who to call in the event of decline in health or emergency. Patient's BG [address] Zacarias armas and they advised patient/caregiver to increase tresiba to 24 units. Caregiver stated understanding. L OPERATOR documented in this encounter Plan of Treatment Not on file documented as of this encounter Visit Diagnoses Not on filedocumented in this encounter Home Health Visit - Care Plan Visit Details Visit Type -SN Home Visit Discipline -Long-Term Problems Problem Description Start Date Status Goals Interve ntions Homebound Status Disciplines: Skilled Disciplines Patient's homebound status 12/15/2022 Active 1 goal linked to scheduled/documen soraida intervention 1 goal intervention scheduled/documen soraida in this visit Monitor patient's vital signs every home health visit Disciplines: SN, PT, OT, FINANCE ADMINISTRATOR, COURIER, Skilled Disciplines Monitor patient's vital signs every home health visit. 12/15/2022 Active 1 goal linked to scheduled/documen soraida intervention 1 goal intervention scheduled/documen soraida in this visit Infection Prevention Disciplines: Skilled Disciplines Infection Prevention 12/15/2022 Active 1 goal linked to scheduled/documen soraida intervention 2 goal interventions scheduled/documen soraida in this visit Safety concerns Disciplines: Skilled Disciplines Alteration in safety 12/15/2022 Active 1 goal linked to scheduled/documen soraida intervention 2 goal interventions scheduled/documen soraida in this visit Knowledge Deficit - Other Disease Process and Management Disciplines: Skilled Disciplines Other disease process and management not already specified diabetes 12/15/2022 Active 1 goal linked to scheduled/documen soraida intervention 2 goal interventions scheduled/documen soraida in this visit Pain Disciplines: Core Disciplines Alteration in comfort 12/15/2022 Active 1 goal linked to scheduled/documen soraida intervention 1 goal intervention scheduled/documen soraida in this visit Disease Management - Diabetes Disciplines: Long-Term Management of diabetes symptoms 12/15/2022 Active 1 goal linked to scheduled/documen soraida intervention 3 goal interventions scheduled/documen soraida in this visit Learning/Teachin g Needs - Diabetes Disciplines: Long-Term Learning and teaching needs associated with diagnosis 12/15/2022 Active 1 goal linked to scheduled/documen soraida intervention 3 goal interventions scheduled/documen soraida in this visit Goals Goal Associated Problem Outcome Goal Met? Visit Notes Patient receives care at the most appropriate care setting Description: Patient receives care at the most appropriate care setting. Homebound Status No Measure vital signs during every home health visit during episode of care Description: Home residential property consultant to measure vital signs during every home health visit during episode of care. Monitor patient's vital signs every home health visit No Verbalize signs of infection Description: Patient/caregiver will demonstrate knowledge of infection prevention strategies by verbalizing signs and symptoms of infection. Infection Prevention No Demonstrate use of safety precautions Description: Patient/caregiver maintains safe home environment as evidenced by remaining free from injury and demonstrates use of safety precautions. Safety concerns No Understanding of disease process Description: Patient/caregiver will demonstrate understanding of disease process by verbalizing signs and symptoms, preventative measures, and when to report to home care agency or provider. Knowledge Deficit - Other Disease Process and Management No Report that pain has been reduced or controlled Description: Patient/caregiver/family will verbalize satisfaction with the patients level of pain and symptom control. Pain No Verbalize prevention of Diabetic complications Description: Patient/caregiver to demonstrate knowledge of diabetes as evidenced by ability to verbalize proper foot care and signs and symptoms of infection and skin breakdown to report to physician. Disease Management - Diabetes No Demonstrate adequate knowledge of Diabetes Description: Patient/caregiver will demonstrate adequate knowledge of diabetes as evidenced by the ability to perform blood sugar monitoring, care of feet, skin and eyes and signs/symptoms of altered glycemic states and their treatment by the end of the episode of care. Learning/Teaching Needs - Diabetes No Interventions Intervention Associated Problem/Goal Status Variance Visit Notes Homebound Status Description: Patient is homebound due to unsteady gait, dementia, dyspnea unable to get out of the home without the use of a device and assistance of another. Problem:Homebound Status Goal:Patient receives care at the most appropriate care setting Completed Patient is homebound due to unsteady gait, dementia, dyspnea unable to get out of the home without the use of a device and assistance of another. Monitor Vital Signs Description: Monitor blood pressure, pulse, oxygen saturation, respirations Problem:Monitor patient's vital signs every home health visit Goal:Measure vital signs during every home health visit during episode of care Completed Educate Patient on Infection Prevention Description: Instruct patient on signs and symptoms of infection IE: fever, odor, change in color, increased amount of drainage, purulent drainage, warmth. Problem:Infection Prevention Goal:Verbalize signs of infection Completed Educate Family on Infection Prevention Description: Instructed family on signs and symptoms of infection IE: fever, odor, change in color, increased amount of drainage, purulent drainage, warmth. Problem:Infection Prevention Goal:Verbalize signs of infection Completed Instruct Fall Prevention Description: Instruct patient/caregiver in methods to prevent falls Problem:Safety concerns Goal:Demonstrate use of safety precautions Completed Assess safety Description: Assess patient safety Problem:Safety concerns Goal:Demonstrate use of safety precautions Completed Notification of Complications Description: Instruct patient/caregiver when to notify SN/MD of complications Problem:Knowledge Deficit - Other Disease Process and Management Goal:Understanding of disease process Completed Instruct on Disease Process Description: Instruct patient/caregiver on disease process and management diabetes Problem:Knowledge Deficit - Other Disease Process and Management Goal:Understanding of disease process Completed Instruct on pain management techniques Description: Instruct in pharmacologic and nonpharmacologic pain management techniques. Problem:Pain Goal:Report that pain has been reduced or controlled Completed Assess Diabetes: Monitor for the presence of skin lesions on the lower extremity Description: Monitor for the presence of skin lesions on the lower extremity. Problem:Disease Management - Diabetes Goal:Verbalize prevention of Diabetic complications Completed Assess Diabetes: Knowledge Deficit Description: Assess for knowledge deficit of diabetes management Problem:Disease Management - Diabetes Goal:Verbalize prevention of Diabetic complications Completed Educate on foot care Description: Educate patient/caregiver on proper foot care. Problem:Disease Management - Diabetes Goal:Verbalize prevention of Diabetic complications Completed Instruct sick day Description: Instruct patient/caregiver in Sick Day Guidelines. Problem:Learning/Teac brandy Needs - Diabetes Goal:Demonstrate adequate knowledge of Diabetes Completed Instruct on signs and symptoms of hyperglycemia Description: Instruct patient/caregiver in signs/symptoms of hyperglycemia. Problem:Learning/Teac brandy Needs - Diabetes Goal:Demonstrate adequate knowledge of Diabetes Completed Blood glucose monitoring Description: Patient/caregiver to perform blood sugar testing and record in log. Frequency of testing before meals. Patient has a dexecom Problem:Learning/Teac brandy Needs - Diabetes Goal:Demonstrate adequate knowledge of Diabetes Completed documented in this encounter Care Teams Turnaround Planner Relationship Specialty Start Date End Date Mehul Verdugo MD [address] [facility] [address] [place] [address] PCP - General Internal Medicine 09/10/21 Paulette Geller MD [address] [facility] [address] [place] [address] Consulting Physician Gastroenterology 05/22/21 documented as of this encounter
--- OUTSIDE RECORDS SUMMARY | 2024-02-28 15:33 | XMS_ITS | Encounter Summary ---
Author Organization [facility] Address [address] [place] [address] Phone Care Team Providers Care Black And White Printer Operator Name Role Phone Paulette Geller MD Unavailable + Mehul Verdugo MD Primary Care Provider [phone] Encounter Details Date Type Department Care Team (Late st Contact Info) Description 02/02/2023 Telephone [facility] Cardiology [address] [facility] 8th [place] [address] [place] [address] Sp Madrid MD [address] [facility] [address] [place] [address] Social History Tobacco Use Types [...] on file Legal Sex Female 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 30 tablet 1 02/02/2023 documented in this encounter Miscellaneous Notes * Telephone Encounter - Belkis Markham RN - 02/02/2023 1:41 PM TIRE SERVICE TECHNICIAN Spoke to pharmacy re: Furosemide prescription, clarified order to reflect Take 1 tablet by mouth (20 mg) one day and then2 tablets by mouth (40 mg) alternating. No further questions. SERVICE TECHNICIAN * Telephone Encounter - Osiris Mercer - 02/02/2023 1:14 PM CST [facility] calling to speak with a nurse in regards to clarifying the directions on the Furosemide prescription that they were sent. SERVICE TECHNICIAN documented in this encounter Plan of Treatment Not on file documented as of this encounter Visit Diagnoses Not on filedocumented in this encounter Discontinued Medications Medication Sig Discontinue Reason Start Date End Da te furosemide (LASIX) 40 mg tablet Take 1 tablet (40 mg total) by mouth daily Take 1 tablet by mouth (20 mg) one day and then 2 tablets by mouth (40 mg) alternating. Other 02/02/2023 02/02/2023 documented as of this encounter Care Teams Black And White Printer Operator Relationship Specialty Start Date End Date Mehul Verdugo MD [address] [facility] [address] [place] [address] PCP - General Internal Medicine 09/10/21 Paulette Geller MD [address] [facility] [address] [place] [address] Consulting Physician Gastroenterology 05/22/21 documented as of this encounter
--- OUTSIDE RECORDS SUMMARY | 2024-02-28 15:33 | XMS_ITS | Encounter Summary ---
Author Organization [facility] Address [address] [place] [address] Phone Care Team Providers Care Dump Motor Operator Name Role Phone Paulette Geller MD Unavailable + Mehul Verdugo MD Primary Care Provider [phone] Encounter Details Date Type Department Care Team (Late st Contact Info) Description 02/23/2023 9:00 AM ROVING DEPARTMENT END FINDER Office Visit [facility] Cardiology [address] [facility] [address] [place] [address] Emi Celaya, PRASHANTH [address] [facility] [address] [place] [address] Dyslipidemia (Primary Dx); HTN (hypertension), benign; S/P mitral valve repair; Chronic diastolic heart failure (HCC); Type 2 diabetes mellitus without complication, with long-term current use of insulin (CMS/HCC) (HCC); Cerebrovascular accident (CVA) due to occlusion of other cerebral artery (HCC); Tricuspid valve disorder Social History Tobacco Use Types Packs/Day Years [...] on file Legal Sex Female 11:30 PM ROVING DEPARTMENT END FINDER Gender Identity Female 06/15/2023 1:45 PM CDT Sexual Orientation Straight 06/15/2023 1: 45 PM CDT documented as of this encounter Last Filed Vital Signs Vital Sign Reading Time Taken Comments Blood Pressure 165/82 02/23/2023 9:09 AM ROVING DEPARTMENT END FINDER Pulse 76 02/23/2023 9:09 AM ROVING DEPARTMENT END FINDER Temperature 36.4 ??C (97.6 ??F) 02/23/2023 9:09 AM CS T Respiratory Rate - - Oxygen Saturation 96% 02/23/2023 9:09 AM ROVING DEPARTMENT END FINDER Inhaled Oxygen Concentration - - Weight 64.4 kg (142 lb) 02/23/2023 9:09 AM ROVING DEPARTMENT END FINDER Height 154.9 cm (5' 1 ) 02/23/2023 9:09 AM ROVING DEPARTMENT END FINDER Body Mass Index 26.83 02/23/2023 9:09 AM ROVING DEPARTMENT END FINDER documented in this encounter Patient Instructions * Patient Instructions* Emi Celaya NP - 02/23/2023 9:00 AM ROVING DEPARTMENT END FINDER Get blood work today NG DEPARTMENT END FINDER documented in this encounter Progress Notes * Emi Celaya NP - 02/23/2023 9:00 AM CST Patient Name: Yuliana Johnson : : 1940 Date of Service: 02/23/2023 PAST MEDICAL HISTORY Past Medical History: Diagnosis Date Cancer (CMS/HCC) (HCC) breast Diabetes mellitus (HCC) Hyperlipidemia Hypertension PERTINENT CARDIAC DIAGNOSIS AND INTERVENTIONS: HISTORY OF PRESENT ILLNESS: 82 y.o. female with a past medical history significant for dyslipidemia, diabetes, HTN, Chronic diastolic dysfunction, S/p mitral repair, CVA here for cardiology follow up. Spouse here helps provide history. She denies sob, swelling, palpitations, fever, chills. Her blood sugar is running high 300's, wears dexcom, monitor is beeping high. She state she ate avocado and egg for breakfast, did not have Hamilton dinner, watching carbs mostly, insulin recently increased 2 units per pcp to 26 units.No urinary frequency, does report increased hunger. REVIEW OF SYSTEMS: All other systems negative except stated in the HPI MEDICATIONS: Outpatient Encounter Medications as of 02/23/2023 Medication Sig Dispense Refill acetaminophen (TYLENOL) 325 mg tablet Take 2 tablets (650 mg total) by mouth every 4 (four) hours as needed for pain or headaches 20 tablet 0 alendronate (FOSAMAX) 70 mg tablet Take 1 tablet (70 mg total) by mouth every 7 days Take in the morning with a full glass of water, on an empty stomach, and do not take anything else by mouth or liedown for the next 30 min. 12 tablet 1 alendronate (FOSAMAX) 70 mg tablet Take 1 tablet (70 mg total) by mouth every 7 days amLODIPine (NORVASC) 5 mg tablet Take 1 tablet (5 mg total) by mouth daily 90 tablet 3 aspirin 81 mg enteric coated tablet Take 1 tablet (81 mg total) by mouth daily blood-glucose meter (True Metrix Glucose Meter) [facility] Use to test blood sugar once daily DX: E11.9 non insulin dependent 1 each 0 carvediloL (COREG) 25 mg tablet Take 1 tablet by mouth twice daily 180 tablet 3 carvediloL (COREG) 25 mg tablet Take 1 tablet (25 mg total) by mouth 2 (two) times a day with meals cephalexin (Keflex) 500 mg capsule Take 1 capsule (500 mg total) by mouth 2 (two) times a day Eliquis 2.5 mg tablet Take 1 tablet by mouth twice daily 180 tablet 2 fenofibrate (TRIGLIDE) 160 mg tablet Take 1 tablet by mouth once daily 90 tablet 0 furosemide (LASIX) 20 mg tablet Take 1 tablet (20 mg total) by mouth daily and then 2 tablets by mouth (40 mg) alternating daily. 30 tablet 1 insulin degludec (TRESIBA) 100 unit/mL (3 mL) pen for injection Inject 0.26 mL (26 Units total) under the skin daily 20 mL 3 lancets 30 gauge misc One Touch Delica Lancets - Use to test blood sugar 2 times per day.Diag code 11.9 100 each 3 lancets 30 gauge misc Test sugars twice daily dx ell.9 accucheck elizabeth plus 100 each 3 levETIRAcetam (KEPPRA) 500 mg tablet Take 1 tablet (500 mg total) by mouth every 12 (twelve) hours losartan (COZAAR) 100 mg tablet Take 1 tablet by mouth once daily 90 tablet 0 metFORMIN (GLUCOPHAGE) 500 mg tablet Take 1 tablet (500 mg total) by mouth 2 (two) times a day withmeals 180 tablet 1 mirtazapine (REMERON) 7.5 mg tablet TAKE 1 TABLET EVERY NIGHT 90 tablet 10 OneTouch Verio test strips strip Use to test blood sugar 2 times per day.Diag code 11.9 100 strip 3 pen needle, diabetic 31 gauge x 5/16 needle Use to inject 1-4 times daily as directed. 100 each 4 potassium chloride ER 20 mEq CR tablet Take 1 tablet by mouth once daily 90 tablet 3 pravastatin (PRAVACHOL) 40 mg tablet Take 1 tablet by mouth once daily 90 tablet 0 tiotropium bromide (SPIRIVA RESPIMAT) 2.5 mcg/actuation inhaler Inhale 2 puffs daily 70 mcg of tiotropium 2 zolpidem (AMBIEN) 5 mg tablet TAKE 1 TABLET BY MOUTH NIGHTLY NEEDED FOR SLEEP 30 tablet 0 clopidogreL (PLAVIX) 75 mg tablet Take 1 tablet (75 mg total) by mouth daily 90 tablet 1 [DISCONTINUED] insulin degludec (TRESIBA) 100 unit/mL (3 mL) pen for injection Inject 0.24 mL (24 Units total) under the skin daily 20 mL 3 No facility-administered encounter medications on file as of 02/23/2023. PHYSICAL EXAM: BP 165/82 Pulse 76 Temp 36.4 ??C (97.6 ??F) Ht 154.9 cm (5' 1 ) Wt 64.4 kg (142 lb) SpO2 96% BMI 26.83 kg/m?? General: Well appearing, No pain or distress, well nourished HEENT: Within normal limits Neck: Supple, No carotid bruits, no JVD Respiratory: Clear to ausculation bilaterally; no wheezing/rales/rhonchi; respirations unlabored Cardiovascular: RRR, normal Gastrointestinal: soft, non-tender abdomen, no masses palpable Extremities: Warm and dry without edema Psychiatric: normal affect Neurologic: awake/alert, no focal deficits DIAGNOSTIC TESTING: Lab Results Component Value Date GLUCOSE 467 (Critical) 02/23/2023 CALCIUM 8.6 02/23/2023 SODIUM 138 02/23/2023 POTASSIUM 4.2 02/23/2023 CO2 26 02/23/2023 CHLORIDE 103 02/23/2023 BUNSER 19 02/23/2023 CREATININE 0.99 02/23/2023 Chemistry Lab Results Component Value Date SODIUM 138 02/23/2023 POTASSIUM 4.2 02/23/2023 CHLORIDE 103 02/23/2023 CO2 26 02/23/2023 ANIONGAP 9 02/23/2023 BUNSER 19 02/23/2023 CREATININE 0.99 02/23/2023 GLUCOSE 467 (Critical) 02/23/2023 CALCIUM 8.6 02/23/2023 BILITOT 0.3 02/23/2023 PROTEIN 6.9 09/10/2021 ALBUMIN 3.8 02/23/2023 GFRNAA 56 (L) 02/23/2023 GFRAA 58 (L) 01/21/2015 ALKPHOS 67 02/23/2023 AST 19 02/23/2023 ALT 14 02/23/2023 PHOS 2.6 02/23/2023 MAGNESIUM 2.0 02/23/2023 Lab [...] 02/23/2023 Lab Results Component Value Date HGBA1C 12.2 (H) 02/23/2023 Lab Results Component Value Date NPROBNP 810 [...] Sp Madrid MD MOST RECENT ISCHEMIC EVALUATION: [facility]: 2015 DIAGNOSTIC IMPRESSIONS: 1. Minimal coronary [...] Dyslipidemia She takes fenofibrate 160 mg per day, on diabetic diet, tolerating well - Lipid panel; Future - Lipid panel 2. HTN (hypertension), benign Her BP is controlled on amlodipine an carvedilol, she has no swelling, dizziness. Advised low salt diet. -CMP 3. S/P mitral valve repair No signs of heart failure, she is on losartan 100 mg per day. Last echo 04/2022 stable EF no TR or MR, will see in 4-6 months and repeat echo at that time. 4. Chronic diastolic heart failure (HCC) No signs of heart failure, she is on lasix, Coreg and losartan daily will get labs today - Comprehensive metabolic panel; Future - CBC with auto differential; Future -BNP 5. Type 2 diabetes mellitus without complication, with long-term current use of insulin ([facility]) ([facility]) Recently got dexcom, reading high 300's and high this morning >400, had low carb breakfast, recently increased insulin per pcp, also takes metformin. She has polyphagia, no signs of dehydration, vss - Comprehensive metabolic panel; Future - Hemoglobin A1c; Future - Magnesium; Future - Phosphorus; Future Will route results to PCP, insulin was increased to 30 units today per pcp 6. 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 RTC in 4-6 months or sooner if needed. Problem List Items Addressed This Visit Cardiac and Vasculature Dyslipidemia - Primary Relevant Orders Lipid panel (Completed) HTN (hypertension), benign S/P mitral valve repair Tricuspid valve disorder Chronic diastolic heart failure (HCC) Relevant Orders Comprehensive metabolic panel (Completed) CBC with auto differential (Completed) Endocrine and Metabolic Type 2 diabetes mellitus (HCC) Relevant Orders Comprehensive metabolic panel (Completed) Hemoglobin A1c (Completed) Magnesium (Completed) Phosphorus (Completed) Neuro CVA (cerebral vascular accident) (HCC) Emi Celaya NP NG DEPARTMENT END FINDER documented in this encounter Plan of Treatment Not on file documented as of this encounter Results * (ABNORMAL) Lipid panel (02/23/2023 9:53 AM ROVING DEPARTMENT END FINDER) Cholesterol 159 30 - 199 mg/dL [facility] Comment: Interpretive Data Ages < or = [...] revised on 2017. Triglycerides 321(H) <=149 mg/dL [facility] Comment: Interpretive Data Ages < or = [...] revised on 2017. HDL 29(L) >=40 mg/dL [facility] Comment: Interpretive Data Ages < or = [...] on 2017. LDL, calculated 66 <=129 mg/dL [facility] Comment: Interpretive Data Ages [...] revised on 2017. Non-HDL Cholesterol 130 mg/dL [facility] Comment: Interpretive Data Ages < or [...] last revised on 2017. Chol/HDL ratio 5 [facility] Blood 02/23/2023 9:53 AM ROVING DEPARTMENT END FINDER 02/23/2023 11:37 AM ROVING DEPARTMENT END FINDER Emi Celaya VISUAL JOURNALIST LAB BLOOD ORDERABLES Final Re sult Performing Organization Address [facility] de Phone Number [facility] Department [place] [address] * Phosphorus (02/23/2023 9:53 AM ROVING DEPARTMENT END FINDER) Phosphorus, pl 2.6 2.3 - 4.5 mg/dL [facility] Blood 02/23/2023 9:53 AM ROVING DEPARTMENT END FINDER 02/23/2023 11:38 AM ROVING DEPARTMENT END FINDER Emi Celaya VISUAL JOURNALIST LAB BLOOD ORDERABLES Final Re sult Performing Organization Address [facility] de Phone Number [facility] Department [place] [address] * Magnesium (02/23/2023 9:53 AM ROVING DEPARTMENT END FINDER) Pathologist [facility] Magnesium 2.0 1.4 - 2.5 mg/dL [facility] Blood 02/23/2023 9:53 AM ROVING DEPARTMENT END FINDER 02/23/2023 11:38 AM ROVING DEPARTMENT END FINDER Emi Celaya VISUAL JOURNALIST LAB BLOOD ORDERABLES Final Re sult Performing Organization Address City/[facility]/ZIP Co de Phone Number [facility] [place] [address] * (ABNORMAL) CBC with auto differential (02/23/2023 9:53 AM ROVING DEPARTMENT END FINDER) [facility] WBC 6.1 3.8 - 9.9 K/cumm [facility] Hgb 14.3 11.9 - 15.5 g/dL [facility] Hct 44.7 35.6 - 45.5 % [facility] Plt 169 150 - 400 K/cumm [facility] MPV 12.3 9.1 - 12.3 fL [facility] RBC 5.30(H) 3.90 - 5.20 M/cumm [facility] MCV 84.3 81.3 - 96.4 fL [facility] MCH 27.0(L) 27.1 - 33.3 pg [facility] MCHC 32.0(L) 32.3 - 35.7 g/dL [facility] RDW CV 12.4 11.1 - 14.9 % [facility] RDW SD 37.7 35.7 - 48.1 fL [facility] NRBC abs 0.00 0.00 - 0.01 K/cumm [facility] Blood 02/23/2023 9:53 AM ROVING DEPARTMENT END FINDER 02/23/2023 11:39 AM ROVING DEPARTMENT END FINDER Emi Celaya VISUAL JOURNALIST LAB BLOOD ORDERABLES Final Re sult Performing Organization Address City/[facility]/ZIP Co de Phone Number [facility] Department [place] [address] * (ABNORMAL) Hemoglobin A1c (02/23/2023 9:53 AM ROVING DEPARTMENT END FINDER) Hgb A1C 12.2(H) 4.0 - 5.6 % [facility] Estimated Average Glucose 303 mg/dL [facility] Comment: The ADA recommends reporting an estimated Average Glucose (eAG) with all Hemoglobin A1c results using the equation derived from a study of 507 normal and diabetic adults. ??Minority populations were underrepresented and children were not included. ?? (Diabetes Care 2020; 43(S1): S66-S76). ??The eAG is not equivalent to a fasting glucose. Blood 02/23/2023 9:53 AM ROVING DEPARTMENT END FINDER 02/23/2023 11:39 AM ROVING DEPARTMENT END FINDER Emi Celaya VISUAL JOURNALIST LAB BLOOD ORDERABLES Final Re sult [facility] One [facility] Department [place] [address] * (ABNORMAL) Comprehensive metabolic panel (02/23/2023 9:53 AM ROVING DEPARTMENT END FINDER) Sodium 138 135 - 145 mmol/L [facility] Potassium, pl 4.2 3.3 - 4.9 mmol/L [facility] Chloride 103 97 - 110 mmol/L [facility] CO2 26 22 - 32 mmol/L [facility] Anion gap 9 2 - 15 mmol/L [facility] BUN 19 6 - 25 mg/dL [facility] Creatinine 0.99 0.60 - 1.10 mg/dL [facility] Glucose 467(C) 70 - 199 mg/dL [facility] Comment: Interpretive Data Fasting glucose >/= 126 mg/dl is diagnostic for diabetes. ?? Fasting is defined as no caloric intake for at least 8 hours. Fasting glucose between 100 mg/dl to 125 mg/dl is diagnostic of prediabetes. In a patient with classic symptoms of hyperglycemia or hyperglycemic crisis, a random glucose >/= 200 mg/dl is diagnostic for diabetes. In the absence of unequivocal hyperglycemia, results should be confirmed by repeat testing. The classification and Diagnosis of Diabetes Diabetes Care 202; 46: S19-S40. Current interpretive data was last revised 2022. Calcium 8.6 8.5 - 10.3 mg/dL [facility] Bilirubin, total 0.3 0.1 - 1.2 mg/dL [facility] Protein, pl 6.9 6.5 - 8.5 g/dL [facility] Albumin 3.8 3.5 - 5.0 g/dL [facility] Alk phos 67 40 - 130 Units/L [facility] ALT 14 7 - 45 Units/L [facility] AST 19 10 - 45 Units/L [facility] Blood 02/23/2023 9:53 AM ROVING DEPARTMENT END FINDER 02/23/2023 11:38 AM ROVING DEPARTMENT END FINDER us Emi Celaya VISUAL JOURNALIST LAB BLOOD ORDERABLES Final Re sult [facility] One [facility] Department [place] [address] documented in this encounter Visit Diagnoses Diagnosis Dyslipidemia- Primary Other and unspecified hyperlipidemia HTN (hypertension), benign Essential hypertension, benign S/P mitral valve repair Other postprocedural status Chronic diastolic heart failure (HCC) Chronic diastolic heart failure Type 2 diabetes mellitus without complication, with long-term current use of insulin (CMS/HCC) (HCC) Cerebrovascular accident (CVA) due to occlusion of other cerebral artery (HCC) Tricuspid valve disorder Tricuspid valve disorders, specified as nonrheumatic documented in this encounter Care Teams Dump Motor Operator Relationship Specialty Start Date End Date Mehul Verdugo MD [address] [facility] [address] [place] [address] PCP - General Internal Medicine 09/10/21 Paulette Geller MD [address] [place] [address] Consulting Physician Gastroenterology 05/22/21 documented as of this encounter
--- OUTSIDE RECORDS SUMMARY | 2024-02-28 15:33 | XMS_ITS | Encounter Summary ---
Author Organization [facility] Address [address] [place] [address] Care Team Providers Care Painting Technician Name Role Phone Paulette Geller MD Unavailable + Mehul Verdugo MD Primary Care Provider [phone] Encounter Details Date Type Department Care Team (Late st Contact Info) Description 02/23/2023 [facility] [address] [facility] [address] [place] [address] Mehul Verdugo MD [address] [facility] [address] [place] [address] Social History Tobacco Use Types Packs/Day Years [...] on file Legal Sex Female 11:30 PM CLINICAL ACCOUNT EXECUTIVE Gender Identity Female 06/15/2023 1:45 PM CDT Sexual Orientation Straight 06/15/2023 1: 45 PM CDT documented as of this encounter Miscellaneous Notes * Telephone Encounter - Melanie Wilkes MA - 02/23/2023 12:42 PM CST Azul aware ICAL ACCOUNT EXECUTIVE * Telephone Encounter - Mehul Verdugo MD - 02/23/2023 12:07 PM CST If no low readings, please increase to 30 units daily ICAL ACCOUNT EXECUTIVE * Telephone Encounter - Melanie Wilkes MA - 02/23/2023 11:47 AM CST Pt daughter calling bloodsugar average on Dexcom G7 is 374 She was increased to 26 units of tresiba aliitle over a week ago. No improvement with the 2 units increase ICAL ACCOUNT EXECUTIVE documented in this encounter Plan of Treatment Not on file documented as of this encounter Visit Diagnoses Not on filedocumented in this encounter Care Teams Painting Technician Relationship Specialty Start Date End Date Mehul Verdugo MD [address] [facility] [address] [place] [address] PCP - General Internal Medicine 09/10/21 Paulette Geller MD [address] [place] [address] Consulting Physician Gastroenterology 05/22/21 documented as of this encounter
--- OUTSIDE RECORDS SUMMARY | 2024-02-28 15:33 | XMS_ITS | Encounter Summary ---
Author Organization [facility] Address [address] [place] [address] Care Team Providers Care Printing Machinist Name Role Phone Paulette Geller MD Unavailable + Mehul Verdugo MD Primary Care Provider [phone] Reason for Visit * Reason Onset Date Comments Hyperglycemia 03/28/2023 Encounter Details Date Type Department Care Team (Late st Contact Info) Description 03/28/2023 [facility] [address] [facility] [address] [place] [address] Mehul Verdugo MD [address] [facility] [address] [place] [address] Hyperglycemia Social History Tobacco Use [...] on file Legal Sex Female 11:30 PM CASING BLOWER Gender Identity Female 06/15/2023 1:45 PM CDT Sexual Orientation Straight 06/15/2023 1: 45 PM CDT documented as of this encounter Miscellaneous Notes * Telephone Encounter - Silvana Fisher RN - 03/28/2023 11:42 AM CST I spoke to daughter, she said her dad called her and said he knew why her blood sugars are so high.He has been forgetting to take the cover off the pen needle. He only gave her 20 today. The will continue with 20 for the next several days. I did a 3 way call last week with her and Sukhi Phillip from [facility] and I thought we got the situation straightened out. I called sukhi and there was a glitch, he said he would make sure the supplies were sent this week. I left 2 sensors at the help desk operator for daughter to forklift picker to get her restarted on CGM. They will communicate on . I instructed the daughter last week on how to download and sent an invite to [facility]. Dr Verdugo made aware NG BLOWER * Telephone Encounter - No Franz - 03/28/2023 9:51 AM CASING BLOWER Patient's daughter, Azul, calling in to report patient's BS has been really high upon waking. The lowest it has been in the last week has been 297. It has been running 300-400s. However, spouse said pt is getting up in the middle of the night and eating. Also they were supposed to be getting G7 for pt, they still have not received this yet. NG BLOWER documented in this encounter Plan of Treatment Not on file documented as of this encounter Visit Diagnoses Not on filedocumented in this encounter Care Teams Printing Machinist Relationship Specialty Start Date End Date Mehul Verdugo MD [address] [facility] [address] [place] [address] PCP - General Internal Medicine 09/10/21 Paulette Geller MD [address] [facility] [address] [place] [address] Consulting Physician Gastroenterology 05/22/21 documented as of this encounter
--- OUTSIDE RECORDS SUMMARY | 2024-02-28 15:33 | XMS_ITS | Encounter Summary ---
Author Organization [facility] Healthcare Address [address] [place] [address] Care Team Providers Care Manager Pricing Name Role Phone Paulette Geller MD Unavailable + Mehul Verdugo MD Primary Care Provider [phone] Reason for Visit * Auth/Cert (Routine) Specialty Diagnoses / Procedures Referred By Cata t Referred To Contact Referral ID Status Reason Start Date Expiration Date Visits Re quested Visits Authorized [id number] 1 60 Encounter Details Date Type Department Care Team (Late st Contact Info) Description 02/05/2023 8:30 AM FIELD LABORATORY OPERATOR Home Care Visit [facility] [address] [address] [address] [place] [address] Bradley Mota RN SN OASIS DISCHARGE Social History Tobacco Use Types Packs/Day Years [...] on file Legal Sex Female 11:30 PM FIELD LABORATORY OPERATOR Gender Identity Female 06/15/2023 1:45 PM CDT Sexual Orientation Straight 06/15/2023 1: 45 PM CDT documented as of this encounter Last Filed Vital Signs Vital Sign Reading Time Taken Comments Blood Pressure 122/68 02/05/2023 11:22 AM FIELD LABORATORY OPERATOR Pulse 68 02/05/2023 11:22 AM FIELD LABORATORY OPERATOR Temperature 36.7 ??C (98 ??F) 02/05/2023 11:22 AM FIELD LABORATORY OPERATOR Respiratory Rate 18 02/05/2023 11:22 AM FIELD LABORATORY OPERATOR Oxygen Saturation 98% 02/05/2023 11:22 AM FIELD LABORATORY OPERATOR Inhaled Oxygen Concentration - - Weight - - Height - - Body Mass Index - - documented in this encounter Miscellaneous Notes * Home Health Visit Narrative - Bradley Mota RN - 02/05/2023 11:36 AM FIELD LABORATORY OPERATOR Assessed patient. Vitals all wnl. Caregivers and daughter both present. Patient has dementia. showing some signs of cognitive issues. He does good with managing DM , but has days thathe is showing signs of confusion. Daughter has stepped in and is helping out. Daughter stated that she calls daily to see what the sugar is. They are keeping a daily log. Daughter stated she is goingto change the dexcom. Daughter and both did a return demo with glucose monitor and dexcom. Daughter and stated they feel comfortable with discharge. Dr. Adames office updated. Daughter and stated understanding to call Dr. Verdugo's office with any concerns. D LABORATORY OPERATOR documented in this encounter Plan of Treatment Not on file documented as of this encounter Visit Diagnoses Not on filedocumented in this encounter Home Health Visit - Care Plan Visit Details Visit Type -SN OASIS Dischar ge Discipline -Residential Problems Problem Description Start Date Status Goals Interve ntions Homebound Status Disciplines: Skilled Disciplines Patient's homebound status 12/15/2022 Active 1 goal linked to scheduled/documen soraida intervention 1 goal intervention scheduled/documen soraida in this visit Monitor patient's vital signs every home health visit Disciplines: SN, PT, OT, COAL HAULER, FLIGHT CREW ORDNANCEMAN, Skilled Disciplines Monitor patient's vital signs every [...] this visit Disease Management - Diabetes Disciplines: Residential Management of diabetes symptoms 12/15/2022 Active 1 goal linked to scheduled/documen soraida intervention 3 goal interventions scheduled/documen soraida in this visit Learning/Teachin g Needs - Diabetes Disciplines: Residential Learning and teaching needs associated with diagnosis [...] visit during episode of care Description: Home day habilitation specialist to measure vital signs during every home [...] at the most appropriate care setting Completed patient no longer homebound and is discharged from Monitor Vital Signs Description: Monitor blood pressure, [...] Completed documented in this encounter Care Teams Manager Pricing Relationship Specialty Start Date End Date Mehul Verdugo MD [address] [facility] [address] [place] [address] PCP - General Internal Medicine 09/10/21 Paulette Geller MD [address] [place] [address] Consulting Physician Gastroenterology 05/22/21 documented as of this encounter
--- OUTSIDE RECORDS SUMMARY | 2024-02-28 15:33 | XMS_ITS | Encounter Summary ---
Author Organization [facility] Address [address] [place] [address] Care Team Providers Care Oceanographer Geological Name Role Phone Paulette Geller MD Unavailable + Mehul Verdugo MD Primary Care Provider [phone] Encounter Details Date Type Department Care Team (Late st Contact Info) Description 01/27/2023 [facility] [address] 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 Bradley aware this was approved. Bradley's CB number [phone] K SKETCH ARTIST documented in this encounter Plan of Treatment Not on file documented as of this encounter Visit Diagnoses Not on filedocumented in this encounter Care Teams Oceanographer Geological Relationship Specialty Start Date End Date Mehul Verdugo MD [address] [facility] [address] [place] [address] PCP - General Internal Medicine 09/10/21 Paulette Geller MD [address] [place] [address] Consulting Physician Gastroenterology 05/22/21 documented as of this encounter
--- OUTSIDE RECORDS SUMMARY | 2024-02-28 15:33 | XMS_ITS | Encounter Summary ---
Author Organization [facility] Healthcare Address [address] [place] [address] Care Team Providers Care Higher Education Administrator Name Role Phone Paulette Geller MD Unavailable + Mehul Verdugo MD Primary Care Provider [phone] Reason for Visit * Auth/Cert (Routine) Specialty Diagnoses / Procedures Referred By Cata t Referred To Contact Referral ID Status Reason Start Date Expiration Date Visits Re quested Visits Authorized [id number] 1 60 Encounter Details Date Type Department Care Team (Late st Contact Info) Description 01/04/2023 1:30 PM FELT PULLER Home Care Visit [facility] Health [address] [address] [address] [place] [address] Bradley Mota, EDD SN HOME VISIT Social [...] on file Legal Sex Female 11:30 PM FELT PULLER Gender Identity Female 06/15/2023 1:45 PM CDT Sexual Orientation Straight 06/15/2023 1: 45 PM CDT documented as of this encounter Last Filed Vital Signs Vital Sign Reading Time Taken Comments Blood Pressure 128/64 01/04/2023 1:30 AM FELT PULLER Pulse 78 01/04/2023 1:30 AM FELT PULLER Temperature 36.7 ??C (98 ??F) 01/04/2023 1:30 AM FELT PULLER Respiratory Rate 18 01/04/2023 1:30 AM FELT PULLER Oxygen Saturation 98% 01/04/2023 1:30 AM FELT PULLER Inhaled Oxygen Concentration - - Weight - - Height - - Body Mass Index - - documented in this encounter Miscellaneous Notes * Home Health Visit Narrative - Bradley Mota RN - 01/04/2023 1:56 PM FELT PULLER Assessed patient. Educated on s/s of infection, fall prevention, and who to call in the event of decline in health or emergency. PULLER documented in this encounter Plan of Treatment [...] home health visit Disciplines: SN, PT, OT, NEUROLOGY TEACHER, METAL DRILL OPERATOR, Skilled Disciplines Monitor patient's vital signs every [...] 1 goal linked to scheduled/documen soraida intervention 4 goal interventions scheduled/documen soraida in this visit Goals Goal Associated Problem Outcome Goal Met? Visit Notes Patient receives care at the most appropriate care setting Description: Patient receives care at the most appropriate care setting. Homebound Status No Measure vital signs during every home health visit during episode of care Description: Home cullet crusher to measure vital signs during every home [...] Goal:Verbalize prevention of Diabetic complications Completed Instruct diet Description: Instruct on diabetic diet. Problem:Learning/Teac brandy Needs - Diabetes Goal:Demonstrate adequate knowledge of Diabetes Completed Encouraged low carb, high protien. Eggs, tuna, dairy, etc. Patients caregiver/ is trying to comply but still needs further education Instruct sick day Description: Instruct patient/caregiver in [...] Completed documented in this encounter Care Teams Higher Education Administrator Relationship Specialty Start Date End Date Mehul Verdugo MD [address] [facility] [address] [place] [address] PCP - General Internal Medicine 09/10/21 Paulette Geller MD [address] [place] [address] Consulting Physician Gastroenterology 05/22/21 documented as of this encounter
--- OUTSIDE RECORDS SUMMARY | 2024-02-28 15:33 | XMS_ITS | Encounter Summary ---
Author Organization [facility] Healthcare Address [address] [place] [address] Care Team Providers Care Wire Rope Sling Maker Name Role Phone Paulette Geller MD Unavailable + Mehul Verdugo MD Primary Care Provider [phone] Reason for Visit * Auth/Cert (Routine) Specialty Diagnoses / Procedures Referred By Cata quintanilla Referred To Contact Referral ID Status Reason Start Date Expiration Date Visits Re quested Visits Authorized [id number] 1 60 Encounter Details Date Type Department Care Team (Late st Contact Info) Description 02/01/2023 Home Care Visit [facility] [address] [address] [address] [place] [address] Yoana Julien, RN TELEPHONE ENCOUNTER Social History Tobacco Use Types Packs/Day Years [...] on file 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 [address] [place] [address] PCP - General Internal Medicine 09/10/21 Paulette Geller MD [address] [place] [address] Consulting Physician Gastroenterology 05/22/21 documented as of this encounter
--- OUTSIDE RECORDS SUMMARY | 2024-02-28 15:33 | XMS_ITS | Encounter Summary ---
Author Organization [facility] Healthcare Address [address] [place] [address] Care Team Providers Care Smt Machine Operator Name Role Phone Paulette Geller MD Unavailable + Mehul Verdugo MD Primary Care Provider Reason for Visit * Auth/Cert (Routine) Specialty Diagnoses / Procedures Referred By Cata quintanilla Referred To Contact Referral ID Status Reason Start Date Expiration Date Visits Re quested Visits Authorized [id number] 1 60 Encounter Details Date Type Department Care Team (Late st Contact Info) Description 02/04/2023 Home Care Visit [facility] [address] [address] [address] [place] [address] Yoana Julien, RN TELEPHONE ENCOUNTER [...] on file 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 Sex 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
--- OUTSIDE RECORDS SUMMARY | 2024-02-28 15:33 | XMS_ITS | Encounter Summary ---
Author Organization [facility] Address [address] [place] [address] Care Team Providers Care School Treasurer Name Role Phone Paulette Geller MD Unavailable + Mehul Verdugo MD Primary Care Provider [phone] Encounter Details Date Type Department Care Team (Late st Contact Info) Description 01/25/2023 [facility] [address] [facility] [address] [place] [address] Mehul Verdugo MD [address] [facility] [address] [place] [address] Social History Tobacco Use Types [...] on file Legal Sex Female 11:30 PM RE ETCHER Gender Identity Female 06/15/2023 1:45 PM CDT Sexual Orientation Straight 06/15/2023 1: 45 PM CDT documented as of this encounter Miscellaneous Notes * Telephone Encounter - Silvana Fisher RN - 01/25/2023 3:35 PM CST I called N she will call pt and daughter and sent to ER ETCHER * Telephone Encounter - Silvana Fisher RN - 01/25/2023 1:[address] Wade do you want me to call back and send to ER? ETCHER * Telephone Encounter - Melanie Wilkes MA - 01/25/2023 1:28 PM CST is discharging patient today FYI Again her sugar is 418 and she has not eaten today. ETCHER * Telephone Encounter - Mehul Verdugo MD - 01/25/2023 1:16 PM CST Daughter is aware, Jacquie has been working very hard to try and overcome these issues. ETCHER * Telephone Encounter - Melanie Wilkes MA - 01/25/2023 1:11 PM CST [facility] calling and states there are some issues in the home is having memory issues and he is her microfilm duplicating unit supervisor He doesn't know what a Dexcom is and nurse states her sugar has been in the 400's all morning She is on metformin and insulin Tresiba is refusing family welfare social work professor Nurse will be contacting daughter also Very concerning issues asking if she should go to ER [phone] Bradley ETCHER documented in this encounter Plan of Treatment Not on file documented as of this encounter Procedures Procedure Name Priority Date/Time Associated Diagnosis Comments SCAN - LABS 01/25/2023 10:20 PM RE ETCHER SCAN - LABS 01/25/2023 10:20 PM RE ETCHER SCAN - LABS 01/25/2023 10:15 PM RE ETCHER SCAN - LABS 01/25/2023 6:08 PM RE ETCHER documented in this encounter Results * SCAN - LABS (01/25/2023 10:20 PM RE ETCHER) us Mheul Verdugo MD Final Result * SCAN - LABS (01/25/2023 10:20 PM RE ETCHER) us Mehul Verdugo MD Final Result * SCAN - LABS (01/25/2023 10:15 PM RE ETCHER) us Mehul Verdugo MD Final Result * SCAN - LABS (01/25/2023 6:08 PM RE ETCHER) us Mehul Verdugo MD Final Result documented in this encounter Visit Diagnoses Not on filedocumented in this encounter Care Teams School Treasurer Relationship Specialty Start Date End Date Mehul Verdugo MD [address] [facility] [address] [place] [address] PCP - General Internal Medicine 09/10/21 Paulette Geller MD [address] [place] [address] Consulting Physician Gastroenterology 05/22/21 documented as of this encounter
--- OUTSIDE RECORDS SUMMARY | 2024-02-28 15:33 | XMS_ITS | Encounter Summary ---
Author Organization [facility] Address [address] [place] [address] Phone Care Team Providers Care Access Services Representative Name Role Phone Paulette Geller MD Unavailable + Mehul Verdugo MD Primary Care Provider [phone] Encounter Details Date Type Department Care Team (Late st Contact Info) Description 02/23/2023 Telephone [facility] [address] [facility] 8th [place] [address] [place] [address] Sp Madrid MD [address] [facility] [address] [place] [address] Social History Tobacco Use Types [...] on file Legal Sex Female 11:30 PM EXECUTIVE TALENT ACQUISITION CONSULTANT Gender Identity Female 06/15/2023 1:45 PM CDT Sexual Orientation Straight 06/15/2023 1: 45 PM CDT documented as of this encounter Miscellaneous Notes * Telephone Encounter - Belkis Vasquez RN - 02/23/2023 12:55 PM EXECUTIVE TALENT ACQUISITION CONSULTANT Confirmed patient spoke with daughter Azul about Dr Verdugo's recommendations UTIVE TALENT ACQUISITION CONSULTANT * Telephone Encounter - Belkis Vasquez RN - 02/23/2023 12:23 PM EXECUTIVE TALENT ACQUISITION CONSULTANT Spoke to Madeline at [facility] Lab Critical glucose 467 Relayed critical result to PRASHANTH Middleton Received verbal orders to contact PCP office UTIVE TALENT ACQUISITION CONSULTANT * Telephone Encounter - Osiris Mercer - 02/23/2023 12:20 PM CST Julius/Yomi Correa with [facility] Lab Services calling to speak with a nurse in regards to reporting a critical lab result on this pt. UTIVE TALENT ACQUISITION CONSULTANT documented in this encounter Plan of Treatment Not on file documented as of this encounter Visit Diagnoses Not on filedocumented in this encounter Care Teams Access Services Representative Relationship Specialty Start Date End Date Mehul Verdugo MD [address] [facility] [address] [place] [address] PCP - General Internal Medicine 09/10/21 Paulette Geller MD [address] [place] [address] Consulting Physician Gastroenterology 05/22/21 documented as of this encounter
--- OUTSIDE RECORDS SUMMARY | 2024-02-28 15:33 | XMS_ITS | Encounter Summary ---
Author Organization [facility] Address [address] [place] [address] Care Team Providers Care Marketing Ambassador Name Role Phone Paulette Geller MD Unavailable + Mehul Verdugo MD Primary Care Provider [phone] Encounter Details Date Type Department Care Team (Late st Contact Info) Description 04/05/2023 [facility] [address] [facility] [address] [place] [address] Mehul Verdugo MD [address] [facility] [address] [place] [address] Social History Tobacco Use Types [...] on file Legal Sex Female 11:30 PM BARREL RIFLER OPERATOR Gender Identity Female 06/15/2023 1:45 PM CDT Sexual Orientation Straight 06/15/2023 1: 45 PM CDT documented as of this encounter Miscellaneous Notes * Telephone Encounter - Silvana Fisher RN - 04/05/2023 3:12 PM CST I spoke to daughter, her dad is making sure that pt is getting dose. They are to increase Tresiba to 25 and send a report next week. EL RIFLER OPERATOR * Telephone Encounter - No Franz - 04/05/2023 3:01 PM BARREL RIFLER OPERATOR Daughter called back and said that the Tresiba is 20 units EL RIFLER OPERATOR * Telephone Encounter - Silvana Fisher RN - 04/05/2023 2:46 PM CST I reviewed download with Dr Verdugo he said to increase dose by 5 units due to TAR 98% only 2% TIR. I called daughter had to lvm she needs to call back to let us know her insulin dose. EL RIFLER OPERATOR * Telephone Encounter - Melanie Wilkes MA - 04/05/2023 1:58 PM CST Pt dtr calling for you to look at her Dexcom readings EL RIFLER OPERATOR documented in this encounter Plan of Treatment Not on file documented as of this encounter Visit Diagnoses Not on filedocumented in this encounter Care Teams Marketing Ambassador Relationship Specialty Start Date End Date Mehul Verdugo MD [address] [facility] [address] [place] [address] PCP - General Internal Medicine 09/10/21 Paulette Geller MD [address] [place] [address] Consulting Physician Gastroenterology 05/22/21 documented as of this encounter
--- OUTSIDE RECORDS SUMMARY | 2024-02-28 15:33 | XMS_ITS | Encounter Summary ---
Author Organization [facility] Address [address] [place] [address] Care Team Providers Care Director Of Instruction Name Role Phone Paulette Geller MD Unavailable + Mehul Verdugo MD Primary Care Provider [phone] Reason for Visit * Reason Comments Follow-up Encounter Details Date Type Department Care Team (Late st Contact Info) Description 01/06/2023 10:30 AM EMERGENCY DEPARTMENT AIDE Office Visit [facility] [address] [facility] [address] [facility] [place] [address] Garima Silva, PRASHANTH [address] [facility] [address] [place] [address] Type 2 diabetes mellitus without complication, with long-term current use of insulin (CMS/HCC) (HCC) (Primary Dx); HTN (hypertension), benign; Dyslipidemia Social History Tobacco Use Types Packs/Day Years [...] on file Legal Sex Female 11:30 PM EMERGENCY DEPARTMENT AIDE Gender Identity Female 06/15/2023 1:45 PM CDT Sexual Orientation Straight 06/15/2023 1: 45 PM CDT documented as of this encounter Last Filed Vital Signs Vital Sign Reading Time Taken Comments Blood Pressure 112/70 01/06/2023 10:39 AM EMERGENCY DEPARTMENT AIDE Pulse 63 01/06/2023 10:39 AM EMERGENCY DEPARTMENT AIDE Temperature - - Respiratory Rate - - Oxygen Saturation 95% 01/06/2023 10:39 AM EMERGENCY DEPARTMENT AIDE Inhaled Oxygen Concentration - - Weight - - Height - - Body Mass Index - - documented in this encounter Patient Instructions * Patient Instructions* Garima Silva NP - 01/06/2023 10:30 AM EMERGENCY DEPARTMENT AIDE Increase Tresiba to 20 units once daily GENCY DEPARTMENT AIDE documented in this encounter Progress Notes * Garima Silva NP - 01/06/2023 10:30 AM CST Office Visit Yuliana Johnson is a 82 y.o. female here for Follow-up HPI Patient is here to f/u DM, HLD, HTN. Her brought her today. She feels well overall. Denies CP, SOB, Palpitations, or Dizziness. DM 2 Last month her A1c was >15% She was started on Basal insulin. She is currently taking Tresiba 16 units once daily. She has a Dexcom CGM. A new sensor is due to be started. I had her start one and walked himthrough the process. She has been following with our conservation educator. Reviewed and interpreted CGM download with patient and her today. TAB 98 TIR 2 TBR 0 GMI: 10 BG readings are ranging in the 200's to 300's. No hypoglycemia. Frequency of BG tests: >6 x daily; uses CGM Number of Injections per Day: one - Requires therapeutic CGM and has diabetes - Has been using a home blood glucose monitor four times daily - Is insulin requiring. - Treatment requires frequent adjustments of insulin by the patient on the basis of therapeutic CGMtesting HLD Fenofibrate 160 mg once daily Pravastatin 40 mg once daily LDL 92 (10/28/2022) HTN Losartan 100 mg once daily Carvedilol 25 mg BID Amlodipine 5 mg once daily. H/O mitral and tricuspid valve repair. She is on Eliquis. H/O chronic diastolic heart failure and follows with Dr. Madrid - cardiology (last visit 09/23/2022) Current Medications Current Outpatient Medications: acetaminophen (TYLENOL) 325 mg tablet, Take 2 tablets (650 mg total) by mouth every 4 (four) hours as needed for pain or headaches, Disp: 20 tablet, Rfl: 0 alendronate (FOSAMAX) 70 mg tablet, Take 1 tablet (70 mg total) by mouth every 7 days Take in the morning with a full glass of water, on an empty stomach, and do not take anything else by mouth or lie down for the next 30 min., Disp: 12 tablet, Rfl: 1 alendronate (FOSAMAX) 70 mg tablet, Take 1 tablet (70 mg total) by mouth every 7 days, Disp: , Rfl: amLODIPine (NORVASC) 5 mg tablet, Take 1 tablet (5 mg total) by mouth daily, Disp: 90 tablet, Rfl: 3 aspirin 81 mg enteric coated tablet, Take 1 tablet (81 mg total) by mouth daily, Disp: , Rfl: blood-glucose meter (True Metrix Glucose Meter) [facility], Use to test blood sugar once daily DX: E11.9 non insulin dependent, Disp: 1 each, Rfl: 0 carvediloL (COREG) 25 mg tablet, Take 1 tablet by mouth twice daily, Disp: 180 tablet, Rfl: 3 Eliquis 2.5 mg tablet, Take 1 tablet by mouth twice daily, Disp: 180 tablet, Rfl: 2 fenofibrate (TRIGLIDE) 160 mg tablet, Take 1 tablet by mouth once daily, Disp: 90 tablet, Rfl: 0 furosemide (LASIX) 40 mg tablet, Take 1 tablet (40 mg total) by mouth daily Take 1 tablet by mouth (20 mg) one day and then 2 tablets by mouth (40 mg) alternating., Disp: 90 tablet, Rfl: 3 insulin degludec (TRESIBA) 100 unit/mL (3 mL) pen for injection, Inject 0.1 mL (10 Units total) under the skin daily (Patient taking differently: Inject 0.16 mL (16 Units total) under the skin daily), Disp: 15 mL, Rfl: 1 lancets 30 gauge misc, One Touch Delica Lancets - Use to test blood sugar 2 times per day.Diag code11.9, Disp: 100 each, Rfl: 3 levETIRAcetam (KEPPRA) 500 mg tablet, Take 1 tablet (500 mg total) by mouth every 12 (twelve) hours, Disp: , Rfl: losartan (COZAAR) 100 mg tablet, Take 1 tablet by mouth once daily, Disp: 90 tablet, Rfl: 0 metFORMIN (GLUCOPHAGE) 500 mg tablet, Take 1 tablet (500 mg total) by mouth 2 (two) times a day with meals, Disp: 180 tablet, Rfl: 1 mirtazapine (REMERON) 7.5 mg tablet, TAKE 1 TABLET EVERY NIGHT, Disp: 90 tablet, Rfl: 10 OneTouch Verio test strips strip, Use to test blood sugar 2 times per day.Diag code 11.9, Disp: 100strip, Rfl: 3 pen needle, diabetic 31 gauge x 5/16 needle, Use to inject 1-4 times daily as directed., Disp: 100each, Rfl: 4 potassium chloride ER 20 mEq CR tablet, Take 1 tablet by mouth once daily, Disp: 90 tablet, Rfl: 3 pravastatin (PRAVACHOL) 40 mg tablet, Take 1 tablet by mouth once daily, Disp: 90 tablet, Rfl: 0 tiotropium bromide (SPIRIVA RESPIMAT) 2.5 mcg/actuation inhaler, Inhale 2 puffs daily, Disp: 70 mcgof tiotropium, Rfl: 2 zolpidem (AMBIEN) 5 mg tablet, TAKE 1 TABLET BY MOUTH NIGHTLY NEEDED FOR SLEEP, Disp: 30 tablet,Rfl: 0 clopidogreL (PLAVIX) 75 mg tablet, Take 1 tablet (75 mg total) by mouth daily, Disp: 90 tablet, Rfl: 1 Allergies No Known Allergies Past Medical and Surgical History: Patient Active Problem List Diagnosis Arteriosclerotic vascular disease Type 2 diabetes mellitus (HCC) Dyslipidemia HTN (hypertension), benign Mitral valve insufficiency Pulmonary hypertension (CMS/HCC) (HCC) S/P mitral valve repair Tricuspid valve disorder CVA (cerebral vascular accident) (HCC) Compression fracture of T12 vertebra (HCC) Primary insomnia Age-related osteoporosis without current pathological fracture Chronic diastolic heart failure (HCC) CKD (chronic kidney disease) S/P cholecystectomy Frequent falls Hospital discharge follow-up Altered mental status Past Medical History: Diagnosis Date Cancer (CMS/HCC) (HCC) breast Diabetes mellitus (HCC) Hyperlipidemia Hypertension Past Surgical History: Procedure Laterality Date HYSTERECTOMY KYPHOPLASTY THORACIC N/A 05/23/2020 MASTECTOMY Left MITRAL VALVE REPAIR Family History: Family History Problem Relation Age of Onset Alcohol abuse Mother Alcohol abuse Father Hypertension Maternal Grandfather Family history of hypertension - Relation: Grandfather (Added by TW Conv)/Family history of hypertension - Relation: Grandfather (Added by TW Conv) Hypertension Other Family history of hypertension - Relation: Grandmother (Added by TW Conv) Hypertension Other Family history of hypertension - Relation: Grandmother (Added by TW Conv) Social History: Social History Tobacco Use Smoking status: Never Smokeless tobacco: Never Substance and Sexual Activity Drug use: No Sexual activity: Defer Alcohol Use: Not on file Social History Social History Narrative Not on file Immunization History Administered Date(s) Administered Influenza, Quadrivalent, High Dose, Preservative Free, Intrr 12/18/2019, 12/24/2021 Influenza, Trivalent, Adjuvanted, Intramuscular 12/13/2017, 12/14/2017 Influenza, Trivalent, High Dose, Split, Preservative Free, Intramuscular 02/09/2019 Influenza, Unspecified 01/15/2015, 12/17/2020 Microsaic SARS-CoV-2 Monovalent Vaccination (12+ Yrs) CHASE-READY TO USE 07/20/2021 Pfizer SARS-CoV-2 Monovalent Vaccination (12+ Yrs) PURPLE 04/01/2020, 04/29/2020, 01/01/2021 Pneumococcal Conjugate PCV 13 08/21/2016 Pneumococcal Conjugate Pcv20 09/10/2021 Pneumococcal Conjugate, Unspecified 01/15/2015 Pneumococcal Polysaccharide PPV23 01/15/2015 ZOSTER Recombinant 09/10/2021 Assessment/Plan Review of Systems Review of Systems Constitutional: Negative for appetite change, chills, fever and unexpected weight change. HENT: Negative for hearing loss, trouble swallowing and voice change. Eyes: Negative for visual disturbance. Respiratory: Negative for cough and shortness of breath. Cardiovascular: Negative for chest pain, palpitations and leg swelling. Gastrointestinal: Negative for blood in stool, constipation, diarrhea and nausea. Genitourinary: Negative for dysuria. Musculoskeletal: Positive for gait problem (In wheelchair). Skin: Negative for rash. Neurological: Negative for seizures and headaches. Psychiatric/Behavioral: Negative for sleep disturbance. Physical Exam Physical Exam Constitutional: Appearance: Normal appearance. She is normal weight. She is not ill-appearing. HENT: Head: Normocephalic and atraumatic. Right Ear: External ear normal. Left Ear: External ear normal. Nose: Nose normal. Mouth/Throat: Mouth: Mucous membranes are moist. Pharynx: Oropharynx is clear. Eyes: Extraocular Movements: Extraocular movements intact. Pupils: Pupils are equal, round, and reactive to light. Cardiovascular: Rate and Rhythm: Normal rate and regular rhythm. Pulses: Normal pulses. Heart sounds: Normal heart sounds. Pulmonary: Effort: Pulmonary effort is normal. Breath sounds: Normal breath sounds. Abdominal: General: Bowel sounds are normal. Palpations: Abdomen is soft. Tenderness: There is no abdominal tenderness. There is no guarding. Musculoskeletal: General: Normal range of motion. Cervical back: Normal range of motion and neck supple. Skin: General: Skin is warm and dry. Capillary Refill: Capillary refill takes less than 2 seconds. Findings: No lesion or rash. Neurological: General: No focal deficit present. Mental Status: She is alert. Mental status is at baseline. Cranial Nerves: No cranial nerve deficit. Gait: Gait abnormal (in wheelchair). Psychiatric: Mood and Affect: Mood normal. Behavior: Behavior normal. Vitals BP 112/70 (BP Location: Right arm, Patient Position: Sitting) Pulse 63 SpO2 95% Wt Readings from Last 3 Encounters: 12/06/22 66.7 kg (147 lb) 09/23/22 68 kg (150 lb) 05/20/22 67.6 kg (149 lb) There is no height or weight on file to calculate BMI. Assessment and Plan Diagnoses and all orders for this visit: Type 2 diabetes mellitus without complication, with long-term current use of insulin (CMS/HCC) (HCC) (Primary) Comments: Increase Tresiba to 20 units once daily. Continue CGM. HTN (hypertension), benign Comments: BP at target. Continue present medications. Dyslipidemia Comments: Last LDL 92. Continue Fenofibrate and Pravastatin. Recommendations and Follow up Return in about 1 month (around 02/05/2023) for Recheck. Garima Silva NP Cosigned by Mehul Verdugo MD at 01/07/2023 1:24 PM EMERGENCY DEPARTMENT AIDE GENCY DEPARTMENT AIDE GENCY DEPARTMENT AIDE documented in this encounter Plan of Treatment Not on file documented as of this encounter Visit Diagnoses Diagnosis Type 2 diabetes mellitus without complication, with long-term current use of insulin (CMS/HCC) (HCC)- Primary HTN (hypertension), benign Essential hypertension, benign Dyslipidemia Other and unspecified hyperlipidemia documented in this encounter Care Teams Director Of Instruction Relationship Specialty Start Date End Date Mehul Verdugo MD [address] [facility] [address] [place] [address] PCP - General Internal Medicine 09/10/21 Paulette Geller MD [address] [place] [address] Consulting Physician Gastroenterology 05/22/21 documented as of this encounter
--- OUTSIDE RECORDS SUMMARY | 2024-02-28 15:33 | XMS_ITS | Encounter Summary ---
Author Organization [facility] Address [address] [place] [address] Care Team Providers Care Cultured Marble Products Maker Name Role Phone Paueltte Geller MD Unavailable + Mehul Verdugo MD Primary Care Provider [phone] Reason for Visit * Auth/Cert (Routine) Specialty Diagnoses / Procedures Referred By Cata t Referred To Contact Referral ID Status Reason Start Date Expiration Date Visits Re quested Visits Authorized [id number] 1 60 Encounter Details Date Type Department Care Team (Late st Contact Info) Description 02/02/2023 10:00 AM HOSPICE MUSIC THERAPIST Home Care Visit [facility] [address] [address] [address] [place] [address] Emi Walton LPN SN HOME VISIT Social History Tobacco Use [...] on file Legal Sex Female 11:30 PM HOSPICE MUSIC THERAPIST Gender Identity Female 06/15/2023 1:45 PM CDT Sexual Orientation Straight 06/15/2023 1: 45 PM CDT documented as of this encounter Last Filed Vital Signs Vital Sign Reading Time Taken Comments Blood Pressure 138/84 02/02/2023 11:22 AM HOSPICE MUSIC THERAPIST Pulse 71 02/02/2023 11:22 AM HOSPICE MUSIC THERAPIST Temperature 36.4 ??C (97.5 ??F) 02/02/2023 11:[address] Respiratory Rate 18 02/02/2023 11:22 AM HOSPICE MUSIC THERAPIST Oxygen Saturation 98% 02/02/2023 11:22 AM HOSPICE MUSIC THERAPIST Inhaled Oxygen Concentration - - Weight - - Height - - Body Mass Index - - documented in this encounter Miscellaneous Notes * Home Health Plan for Next Visit - Emi Walton LPN - 02/02/2023 10:35 AM CST Plan for next visit dm education bs monitoring medication education ICE MUSIC THERAPIST documented in this encounter Plan of Treatment Not on file documented as of this encounter Visit Diagnoses Not on filedocumented in this encounter Home Health Visit - Care Plan Visit Details Visit Type -SN Home Visit Discipline -Shelter Problems Problem Description Start Date Status Goals Interve ntions Homebound Status Disciplines: Skilled Disciplines Patient's homebound status 12/15/2022 Active 1 goal linked to scheduled/documen soraida intervention 1 goal intervention scheduled/documen soraida in this visit Monitor patient's vital signs every home health visit Disciplines: SN, PT, OT, CELL REPAIRER, ZIPPER MEASURER, Skilled Disciplines Monitor patient's vital signs every [...] this visit Disease Management - Diabetes Disciplines: Shelter Management of diabetes symptoms 12/15/2022 Active 1 goal linked to scheduled/documen soraida intervention 3 goal interventions scheduled/documen soraida in this visit Learning/Teachin g Needs - Diabetes Disciplines: Shelter Learning and teaching needs associated with diagnosis [...] visit during episode of care Description: Home data management engineer to measure vital signs during every home [...] health visit during episode of care Completed WNL Aspects of Care Description: Instruct patient/caregiver on universal precautions and home infection control measures Problem:Infection Prevention Goal:Verbalize signs of infection Completed sn notified dr jeffrey spoke with valencia fulton reconciling medication with lasix in question medication not noted in home Educate Patient on Infection Prevention Description: Instruct patient on signs and symptoms of infection IE: fever, odor, change in color, increased amount of drainage, purulent drainage, warmth. Problem:Infection Prevention Goal:Verbalize signs of infection Scheduled Educate Family on Infection Prevention Description: Instructed family on signs and symptoms of infection IE: fever, odor, change in color, increased amount of drainage, purulent drainage, warmth. Problem:Infection Prevention Goal:Verbalize signs of infection Scheduled Instruct Fall Prevention Description: Instruct patient/caregiver in methods to prevent falls Problem:Safety concerns Goal:Demonstrate use of safety precautions Completed sn instructed patient on fall prevention to insure pathway free of debris insure when ambulating if any feelings of dizziness upon standing sit back down till it passess patient verbalized understanding Assess safety Description: Assess patient safety Problem:Safety concerns Goal:Demonstrate use of safety precautions Scheduled Notification of Complications Description: Instruct patient/caregiver when to notify SN/MD of complications Problem:Knowledge Deficit - Other Disease Process and Management Goal:Understanding of disease process Scheduled Instruct on Disease Process Description: Instruct patient/caregiver on disease process and management diabetes Problem:Knowledge Deficit - Other Disease Process and Management Goal:Understanding of disease process Scheduled Instruct on pain management techniques Description: Instruct in pharmacologic and nonpharmacologic pain management techniques. Problem:Pain Goal:Report that pain has been reduced or controlled Scheduled Educate on foot care Description: Educate patient/caregiver on proper foot care. Problem:Disease Management - Diabetes Goal:Verbalize prevention of Diabetic complications Completed sn instructed patient to inspect feet on daily basis report any abnormalties to doctor patient verbalized understanding Assess Diabetes: Monitor for the presence of skin lesions on the lower extremity Description: Monitor for the presence of skin lesions on the lower extremity. Problem:Disease Management - Diabetes Goal:Verbalize prevention of Diabetic complications Scheduled Assess Diabetes: Knowledge Deficit Description: Assess for knowledge deficit of diabetes management Problem:Disease Management - Diabetes Goal:Verbalize prevention of Diabetic complications Scheduled Blood glucose monitoring Description: Patient/caregiver to perform blood sugar testing and record in log. Frequency of testing before meals. Patient has a dexecom Problem:Learning/Tea layla Needs - Diabetes Goal:Demonstrate adequate knowledge of Diabetes Completed patient appears to be compliant with bs montoring and daily log Instruct sick day Description: Instruct patient/caregiver in Sick Day Guidelines. Problem:Learning/Tea layla Needs - Diabetes Goal:Demonstrate adequate knowledge of Diabetes Scheduled Instruct on signs and symptoms of hyperglycemia Description: Instruct patient/caregiver in signs/symptoms of hyperglycemia. Problem:Learning/Tea layla Needs - Diabetes Goal:Demonstrate adequate knowledge of Diabetes Scheduled documented in this encounter Care Teams Cultured Marble Products Maker Relationship Specialty Start Date End Date Mehul Verdugo MD [address] [facility] [address] [place] [address] PCP - General Internal Medicine 09/10/21 Paulette Geller MD [address] [place] [address] Consulting Physician Gastroenterology 05/22/21 documented as of this encounter
--- OUTSIDE RECORDS SUMMARY | 2024-02-28 15:33 | XMS_ITS | Encounter Summary ---
Author Organization [facility] Healthcare Address [address] [place] [address] Care Team Providers Care Program Support Assistant Name Role Phone Paulette Geller MD Unavailable + Mehul Verdugo MD Primary Care Provider [phone] Reason for Visit * Auth/Cert (Routine) Specialty Diagnoses / Procedures Referred By Cata t Referred To Contact Referral ID Status Reason Start Date Expiration Date Visits Re quested Visits Authorized [id number] 1 60 Encounter Details Date Type Department Care Team (Late st Contact Info) Description 01/25/2023 2:00 PM DIRECTOR FACILITIES MAINTENANCE Home Care Visit [facility] [address] [address] [address] [place] [address] Bradley Mota, EDD SN HOME VISIT Social [...] on file Legal Sex Female 11:30 PM DIRECTOR FACILITIES MAINTENANCE Gender Identity Female 06/15/2023 1:45 PM CDT Sexual Orientation Straight 06/15/2023 1: 45 PM CDT documented as of this encounter Last Filed Vital Signs Vital Sign Reading Time Taken Comments Blood Pressure 128/64 01/25/2023 1:07 PM DIRECTOR FACILITIES MAINTENANCE Pulse 65 01/25/2023 1:07 PM DIRECTOR FACILITIES MAINTENANCE Temperature 36.7 ??C (98 ??F) 01/25/2023 1:07 PM DIRECTOR FACILITIES MAINTENANCE Respiratory Rate 18 01/25/2023 1:07 PM DIRECTOR FACILITIES MAINTENANCE Oxygen Saturation 98% 01/25/2023 1:07 PM DIRECTOR FACILITIES MAINTENANCE Inhaled Oxygen Concentration - - Weight - - Height - - Body Mass Index - - documented in this encounter Miscellaneous Notes * Home Health Visit Narrative - Bradley Mota RN - 01/25/2023 12:41 PM DIRECTOR FACILITIES MAINTENANCE I have been seeing this patient for sometime to educate on DM type 2. Patient has dementia. I have been educating the . I'm noticing the isn't capable of managing the patients insulin and doesn't monitor her glucose as instructed. I believe he is showing signs of dementia as well. Patient has had a dexcom for months. Caregiver stated he didn't know what I was talking about when I asked where the device was. Finally after about 5 mins of explaining what I was looking for he said oh this thing. the device was . She didn't have the sensor in her arm like she was supposed to. He continues to give the patient high carb meals, juices, and sweet tea. I've asked if we could get asocial worker in he declined several times. I asked if I could speak with one of his children. He stated I can call his I spoke with daughter Azul. Azul is a nurse, but caregiver doesn't want her at the house because he stated she brings her dog that is dirty. Patient's BG level was 418 and she wasvery sleepy. I called Dr. Adames office they want her to go to the ER. We were scheduled to DC today. I discussed via telephone with daughter that the family needs to get together to figure out the next step, because he's not managing. I sent the patient to the ER. I'm going to hold on the discharge. I feel like I should hotline this situation. Jacquie the RN at Dr. Adames agreed this has been going on since the summer and we have both reached out to the daughter we aren't seeing any improvement. CTOR FACILITIES MAINTENANCE documented in this encounter Plan of Treatment Not on file documented as of this encounter Visit Diagnoses Not on filedocumented in this encounter Home Health Visit - Care Plan Visit Details Visit Type -SN Home Visit Discipline -Intermediate Problems Problem Description Start Date Status Goals Interve ntions Homebound Status Disciplines: Skilled Disciplines Patient's homebound status 12/15/2022 Active 1 goal linked to scheduled/documen soraida intervention 1 goal intervention scheduled/documen soraida in this visit Monitor patient's vital signs every home health visit Disciplines: SN, PT, OT, ADHESION TESTER, HOUSECALLS NURSE, Skilled Disciplines Monitor patient's vital signs every [...] this visit Disease Management - Diabetes Disciplines: Intermediate Management of diabetes symptoms 12/15/2022 Active 1 goal linked to scheduled/documen soraida intervention 3 goal interventions scheduled/documen soraida in this visit Learning/Teachin g Needs - Diabetes Disciplines: Intermediate Learning and teaching needs associated with diagnosis [...] visit during episode of care Description: Home freelance copywriter to measure vital signs during every home [...] Completed documented in this encounter Care Teams Program Support Assistant Relationship Specialty Start Date End Date Mehul Verdugo MD [address] [facility] [address] [place] [address] PCP - General Internal Medicine 09/10/21 Paulette Geller MD [address] [facility] [address] [place] [address] Consulting Physician Gastroenterology 05/22/21 documented as of this encounter
--- OUTSIDE RECORDS SUMMARY | 2024-02-28 15:33 | XMS_ITS | Encounter Summary ---
Author Organization [facility] Address [address] [place] [address] Care Team Providers Care Lipcoat Sprayer Name Role Phone Paulette Geller MD Unavailable + Mehul Verdugo MD Primary Care Provider [phone] Reason for Visit * Reason Onset Date Comments dexcom 04/14/2023 Encounter Details Date Type Department Care Team (Late st Contact Info) Description 04/14/2023 [facility] [address] [facility] [address] [place] [id number] Mehul Verdugo MD [address] [facility] [address] [place] [address] dexcom Social History Tobacco Use Types Packs/Day Years [...] on file Legal Sex Female 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 I had to lvm on daughters phone. NG CEMENTER * Telephone Encounter - Silvana Fisher RN - 04/14/2023 1:51 PM CST See download and copy on dr Verdugo desk for review. NG CEMENTER * Telephone Encounter - No Franz - 04/14/2023 1:38 PM LINING CEMENTER Azul, patient's daughter, calling to let you know she has sent the link to review patient's Dexcom.Pt currently on 25 units of Tresiba. NG CEMENTER documented in this encounter Plan of Treatment Not on file documented as of this encounter Visit Diagnoses Not on filedocumented in this encounter Care Teams Lipcoat Sprayer Relationship Specialty Start Date End Date Mehul Verdugo MD [address] [place] [address] PCP - General Internal Medicine 09/10/21 Paulette Geller MD [address] [place] [address] Consulting Physician Gastroenterology 05/22/21 documented as of this encounter
--- OUTSIDE RECORDS SUMMARY | 2024-02-28 15:33 | XMS_ITS | Encounter Summary ---
Author Organization [facility] Address [address] [place] [address] Care Team Providers Care Full Roll Inspector Name Role Phone Paulette Geller MD Unavailable + Mehul Verdugo MD Primary Care Provider [phone] Encounter Details Date Type Department Care Team (Late st Contact Info) Description 01/27/2023 [facility] [address] [facility] [address] [place] [address] Mehul Verdugo MD [address] [facility] [address] [place] [address] Social History Tobacco Use Types [...] on file 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 Gender Identity Female 06/15/2023 1:45 PM CDT Sexual Orientation Straight 06/15/2023 1: 45 PM CDT documented as of this encounter Plan of Treatment Not on file documented as of this encounter Procedures Procedure Name Priority Date/Time Associated Diagnosis Comments SCAN - LABS 01/27/2023 2:07 AM MILLER APPRENTICE documented in this encounter Results * SCAN - LABS (01/27/2023 2:07 AM MILLER APPRENTICE) Mehul Verdugo MD Final Result documented in this encounter Visit Diagnoses Not on filedocumented in this encounter Care Teams Full Roll Inspector Relationship Specialty Start Date End Date Mehul Verdugo MD [address] [facility] [address] [place] [address] PCP - General Internal Medicine 09/10/21 Paulette Geller MD [address] [place] [address] Consulting Physician Gastroenterology 05/22/21 documented as of this encounter
--- OUTSIDE RECORDS SUMMARY | 2024-02-28 15:33 | XMS_ITS | Encounter Summary ---
Author Organization [facility] Address [address] [place] [address] Phone Care Team Providers Care Candle Wrapper Name Role Phone Paulette Geller MD Unavailable + Mehul Verdugo MD Primary Care Provider [phone] Reason for Visit * Reason Onset Date Comments Med Management 02/02/2023 Encounter Details Date Type Department Care Team (Late st Contact Info) Description 02/02/2023 Telephone [facility] Cardiology [address] [facility] [address]th [place] [address] [place] [address] Sp Madrid MD [address] [facility] [address] [place] [address] Med Management Social History Tobacco Use Types Packs/Day Years [...] on file Legal Sex Female 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 90 tablet 3 02/02/2023 documented in this encounter Miscellaneous Notes * Telephone Encounter - Belkis Markham RN - 02/02/2023 1:24 PM SUPERVISOR SAWMILL Called [facility] to clarify that patient is currently taking furosemide as written : Take 1 tablet by mouth (20 mg) one day and then 2 tablets by mouth (40 mg) alternating. Will change order to reflect RVISOR SAWMILL RVISOR SAWMILL * Telephone Encounter - Belkis Markham RN - 02/02/2023 12:14 PM SUPERVISOR SAWMILL [facility] calling about refill on furosemide 40 mg. Reordered to requested pharmacy. RVISOR SAWMILL * Telephone Encounter - Nathalie Butler - 02/02/2023 11:20 AM CST [facility] Nurse is calling in regards to speaking to a nurse about the patients medications. RVISOR SAWMILL documented in this encounter Plan of Treatment [...] 2 tablets by mouth (40 mg) alternating. Reorder 09/23/2022 02/02/2023 documented as of this encounter Care Teams Candle Wrapper Relationship Specialty Start Date End Date Mehul Verdugo MD [address] [facility] [address] [place] [address] PCP - General Internal Medicine 09/10/21 Paulette Geller MD [address] [place] [address] Consulting Physician Gastroenterology 05/22/21 documented as of this encounter
--- OUTSIDE RECORDS SUMMARY | 2024-02-28 15:33 | XMS_ITS | Encounter Summary ---
Author Organization [facility] Address [address] [place] [address] Care Team Providers Care Competitive Intelligence Analyst Name Role Phone Paulette Geller MD Unavailable + Mehul Verdugo MD Primary Care Provider [phone] Reason for Visit * Reason Comments Diabetes Encounter Details Date Type Department Care Team (Late st Contact Info) Description 01/31/2023 12:30 PM DERMATOLOGIST MANAGING PARTNER Office Visit [facility] [address] [facility] [address] [place] [address] Mehul Verdugo MD [address] [facility] [address] [place] [address] Type 2 diabetes mellitus without complication, with long-term current use of insulin (CMS/HCC) (HCC) (Primary Dx); Dyslipidemia; HTN (hypertension), benign; Pulmonary hypertension (CMS/HCC) (HCC) Social History Tobacco Use Types Packs/Day [...] on file Legal Sex Female 11:30 PM DERMATOLOGIST MANAGING PARTNER Gender Identity Female 06/15/2023 1:45 PM CDT Sexual Orientation Straight 06/15/2023 1: 45 PM CDT documented as of this encounter Last Filed Vital Signs Vital Sign Reading Time Taken Comments Blood Pressure 130/78 01/31/2023 12:29 PM DERMATOLOGIST MANAGING PARTNER Pulse 69 01/31/2023 12:29 PM DERMATOLOGIST MANAGING PARTNER Temperature - - Respiratory Rate - - Oxygen Saturation - - Inhaled Oxygen Concentration - - Weight 64.4 kg (142 lb) 01/31/2023 12:29 PM DERMATOLOGIST MANAGING PARTNER Height 154.9 cm (5' 1 ) 01/31/2023 12:29 PM DERMATOLOGIST MANAGING PARTNER Body Mass Index 26.83 01/31/2023 12:29 PM DERMATOLOGIST MANAGING PARTNER documented in this encounter Progress Notes * Mehul Verdugo MD - 01/31/2023 12:30 PM CST Images from the original note were not included. Subjective/Objective Patient ID: Yuliana Johnson is a 82 y.o. female. Chief Complaint Diabetes Diabetes Pertinent negatives for hypoglycemia include no dizziness, headaches or nervousness/anxiousness. Pertinent negatives for diabetes include no chest pain, no fatigue, no polydipsia, no polyphagia, no polyuria and no weakness. Patient here today accompanied by her and daughter. Has a G7 dexcom, and her daughter is interested in being able to review her readings. There is some difficulty with memory, and her is trying to understand the complexities of this. Patient denies any symptoms. Has had no hypoglycemia. Past Surgical History: Procedure Laterality [...] Free, Intramuscular 02/09/2019 Influenza, Unspecified 01/15/2015, 12/17/2020 [employer] SARS-CoV-2 Monovalent Vaccination (12+ Yrs) CHASE-READY TO USE 07/20/2021 Pfizer SARS-CoV-2 Monovalent Vaccination (12+ Yrs) PURPLE 04/01/2020, 04/29/2020, 01/01/2021 Pneumococcal Conjugate PCV 13 08/21/2016 Pneumococcal Conjugate Pcv20 09/10/2021 Pneumococcal Conjugate, Unspecified 01/15/2015 Pneumococcal Polysaccharide PPV23 01/15/2015 ZOSTER Recombinant 09/10/2021 Current Outpatient Medications Medication Sig insulin degludec (TRESIBA) 100 unit/mL (3 mL) pen for injection Inject 0.1 mL (10 Units total) under the skin daily (Patient taking differently: Inject 0.24 mL (24 Units total) under the skin daily) acetaminophen (TYLENOL) 325 mg tablet Take 2 tablets (650 mg total) by mouth every 4 (four) hours as needed for pain or headaches alendronate (FOSAMAX) 70 mg tablet Take 1 tablet (70 mg total) by mouth every 7 days Take in the morning with a full glass of water, on an empty stomach, and do not take anything else by mouth or liedown for the next 30 min. alendronate (FOSAMAX) 70 mg tablet Take 1 tablet (70 mg total) by mouth every 7 days amLODIPine (NORVASC) 5 mg tablet Take 1 tablet (5 mg total) by mouth daily aspirin 81 mg enteric coated tablet Take 1 tablet (81 mg total) by mouth daily blood-glucose meter (True Metrix Glucose Meter) [facility] Use to test blood sugar once daily DX: E11.9 non insulin dependent carvediloL (COREG) 25 mg tablet Take 1 tablet by mouth twice daily cephalexin (Keflex) 500 mg capsule Take 500 mg by mouth 2 (two) times a day. Indications: Urinary Tract/Genitourinary Infection clopidogreL (PLAVIX) 75 mg tablet Take 1 tablet (75 mg total) by mouth daily Eliquis 2.5 mg tablet Take 1 tablet by mouth twice daily fenofibrate (TRIGLIDE) 160 mg tablet Take 1 tablet by mouth once daily furosemide (LASIX) 40 mg tablet Take 1 tablet (40 mg total) by mouth daily Take 1 tablet by mouth (20 mg) one day and then 2 tablets by mouth (40 mg) alternating. lancets 30 gauge [facility] One Touch Delica Lancets - Use to test blood sugar 2 times per day.Diag code 11.9 lancets 30 gauge [facility] Test sugars twice daily dx ell.9 accucheck elizabeth plus levETIRAcetam (KEPPRA) 500 mg tablet Take 1 tablet (500 mg total) by mouth every 12 (twelve) hours losartan (COZAAR) 100 mg tablet Take 1 tablet by mouth once daily metFORMIN (GLUCOPHAGE) 500 mg tablet Take 1 tablet (500 mg total) by mouth 2 (two) times a day withmeals mirtazapine (REMERON) 7.5 mg tablet TAKE 1 [...] TABLET BY MOUTH NIGHTLY NEEDED FOR SLEEP Review of Systems Constitutional: Negative for appetite [...] past 24 hrs: BP Pulse Height Weight 01/31/23 1229 130/78 69 154.9 cm (5' 1 ) 64.4 kg (142 lb) Wt Readings from Last 3 Encounters: 01/31/23 64.4 kg (142 lb) 12/06/22 66.7 kg (147 lb) 09/23/22 68 kg (150 lb) Physical Exam Vitals and nursing note [...] complication, with long-term current use of insulin ([facility]) (E11.9, Z79.4) (Primary) Comments: Michell Arturo was kind enough to see patient. Will have the patients daughter instructed in dexcom. Dyslipidemia (E78.5) Comments: stable HTN (hypertension), benign (I10) Comments: bp at target, Pulmonary hypertension ([facility]) ([facility]) (I27.20) Labs Lab Results Component Value Date HGBA1C >15 12/06/2022 Lab Results Component Value Date POCCHOL 110 [...] A1C Lab Results Component Value Date CREATININE 1.26 (H) 04/20/2022 CREATININE 1.06 (H) 09/10/2021 CREATININE 0.82 05/22/2021 Lab Results Component Value Date COLORU Straw 05/09/2021 CLARITYU Clear 05/09/2021 GLUCOSEUR Negative 05/09/2021 BILIRUBINUR Negative 05/09/2021 KETONESU Negative 05/09/2021 SPECGRAVU 1.024 05/09/2021 BLOODUR Trace (A) 05/09/2021 UROBILINOGEN <2.0 05/09/2021 Mehul Verdugo MD ATOLOGIST MANAGING PARTNER documented in this encounter Plan of Treatment Not on file documented as of this encounter Visit Diagnoses Diagnosis Type 2 diabetes mellitus without complication, with long-term current use of insulin (CMS/HCC) (HCC)- Primary Dyslipidemia Other and unspecified hyperlipidemia HTN (hypertension), benign Essential hypertension, benign Pulmonary hypertension (CMS/HCC) (HCC) Other chronic pulmonary heart diseases documented in this encounter Care Teams Competitive Intelligence Analyst Relationship Specialty Start Date End Date Mehul Verdugo MD [address] [facility] [address] [place] [address] PCP - General Internal Medicine 09/10/21 Paulette Geller MD [address] [place] [address] Consulting Physician Gastroenterology 05/22/21 documented as of this encounter
--- OUTSIDE RECORDS SUMMARY | 2024-02-28 15:33 | XMS_ITS | Encounter Summary ---
Author Organization [facility] Address [address] [place] [address] Care Team Providers Care Sales And Training Specialist Name Role Phone Paulette Geller MD Unavailable + Mehul Verdugo MD Primary Care Provider [phone] Encounter Details Date Type Department Care Team (Late st Contact Info) Description 03/17/2023 [facility] [address] [facility] [address] [place] [address] Mehul Verdugo MD [address] [facility] [address] [place] [address] Social History Tobacco Use Types [...] on file Legal Sex Female 11:30 PM HUMAN RESOURCES HR GENERALIST Gender Identity Female 06/15/2023 1:45 PM CDT Sexual Orientation Straight 06/15/2023 1: 45 PM CDT documented as of this encounter Miscellaneous Notes * Telephone Encounter - Silvana Fisher RN - 03/18/2023 12:09 PM CST She has not been wearing the Dexcom because they do not have sensors. Her daughter said she called Maycol Fisher at [facility] but he never called her back. I called Maycol and fixed the issue. [facility] was trying to talk to someone before they shipped but not one ever returned the call. He is calling Azul after I finish and they will ship her sensors. I instructed Azul on downloading on her laptop and sent invitefor Dexcom Clarity. She is to download her mom's reader next week. She is increasing dose of Tresiba N RESOURCES HR GENERALIST * Telephone Encounter - Michell Morris NP - 03/18/2023 10:08 AM HUMAN RESOURCES HR GENERALIST I helped put a G7 on her when Dr. Wade saw her. Unfortunately she uses a reader so not able to upload Let's increase to 40 units over the weekend and see if daughter can come later next week with you (me if you think as well) (let's avoid Tuesday given possible weather) to hopefully get uploaded and adjustments made N RESOURCES HR GENERALIST * Telephone Encounter - Rosie Martinez MA - 03/18/2023 8:57 AM CST LAST UPLOAD IS FROM DECEMBER N RESOURCES HR GENERALIST * Telephone Encounter - Michell Morris NP - 03/18/2023 8:50 AM HUMAN RESOURCES HR GENERALIST Can we pull her Dexcom please N RESOURCES HR GENERALIST * Telephone Encounter - Melanie Wilkes MA - 03/17/2023 2:59 PM CST Pt daughter calling pt morning fasting bs are in the 300's Taking tresiba 35 units It has not improved from last increase recently N RESOURCES HR GENERALIST documented in this encounter Plan of Treatment Not on file documented as of this encounter Visit Diagnoses Not on filedocumented in this encounter Care Teams Sales And Training Specialist Relationship Specialty Start Date End Date Mehul Verdugo MD [address] [facility] [address] [place] [address] PCP - General Internal Medicine 09/10/21 Paulette Geller MD [address] [place] [address] Consulting Physician Gastroenterology 05/22/21 documented as of this encounter
--- OUTSIDE RECORDS SUMMARY | 2024-02-28 15:33 | XMS_ITS | Encounter Summary ---
Author Organization [facility] Address [address] [place] [address] Care Team Providers Care Forensic Anthropologist Name Role Phone Paulette Geller MD Unavailable + Mehul Verdugo MD Primary Care Provider [phone] Reason for Visit * Reason Onset Date Comments APPROVAL FOR TEST STRIPS 01/27/2023 Encounter Details Date Type Department Care Team (Late st Contact Info) Description 01/27/2023 [facility] [address] [facility] [address] [place] [address] Mehul Verdugo MD [address] [facility] [address] [place] [address] APPROVAL FOR TEST STRIPS Social History Tobacco Use Types Packs/Day Years [...] file 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 Call us at Outcome Approvedtoday PA Case: [id number], Status: Approved, Coverage Starts on: 02/28/2022 12:00:00 AM, Coverage Ends on: 02/28/2024 12:00:00 AM. Questions? Contact . Drug OneTouch Verio strips Form [employer] Electronic PA Form Original Claim Info [id number] RVISOR [place] * Telephone Encounter - Sandi Power - 01/27/2023 10:43 AM CST Yuliana Johnson Tran: [id number] - [place] - Rx #: [id number] Need help? Call us at Status Sent to LS9 Drug OneTouch Verio strips Form [employer] Electronic PA Form Original Claim Info [id number] RVISOR [place] documented in this encounter Plan of Treatment Not on file documented as of this encounter Visit Diagnoses Not on filedocumented in this encounter Care Teams Forensic Anthropologist Relationship Specialty Start Date End Date Mehul Verdugo MD [address] [facility] [address] [place] [address] PCP - General Internal Medicine 09/10/21 Paulette Geller MD [address] [place] [address] Consulting Physician Gastroenterology 05/22/21 documented as of this encounter
--- OUTSIDE RECORDS SUMMARY | 2024-02-28 15:33 | XMS_ITS | Encounter Summary ---
Author Organization [facility] Healthcare Address [address] [place] [address] Care Team Providers Care Sheriffs Detective Name Role Phone Paulette Geller MD Unavailable + Mehul Verdugo MD Primary Care Provider [phone] Encounter Details Date Type Department Care Team (Late st Contact Info) Description 02/23/2023 9:50 AM CIVIL TRANSPORTATION ENGINEER Lab [address] [place] [address] Type 2 diabetes mellitus without complication, with long-term current use of insulin (CMS/HCC) (HCC); Chronic diastolic heart failure (HCC); Dyslipidemia Social History Tobacco Use Types Packs/Day [...] on file Legal Sex Female 11:30 PM CIVIL TRANSPORTATION ENGINEER Gender Identity Female 06/15/2023 1:45 PM CDT Sexual Orientation Straight 06/15/2023 1: 45 PM CDT documented as of this encounter Plan of Treatment Not on file documented as of this encounter Procedures Procedure Name Priority Date/Time Associated Diagnosis Comments EGFR Routine 02/23/2023 9:53 AM CIVIL TRANSPORTATION ENGINEER Chronic diastolic heart failure (HCC) Type 2 diabetes mellitus without complication, with long-term current use of insulin (CMS/HCC) (HCC) DIFFERENTIAL AUTO Routine 02/23/2023 9:5 3 AM CIVIL TRANSPORTATION ENGINEER Chronic diastolic heart failure (HCC) CRITICAL RESULT CALLBACK CHEMISTRY Routine 02/23/2023 9:53 AM CIVIL TRANSPORTATION ENGINEER Chronic diastolic heart failure (HCC) Type 2 diabetes mellitus without complication, with long-term current use of insulin (CMS/HCC) (HCC) CBC WITH AUTO DIFFERENTIAL Routine 02/23/2023 9:53 AM CIVIL TRANSPORTATION ENGINEER Chronic diastolic heart failure (HCC) PHOSPHORUS Routine 02/23/2023 9:53 AM CIVIL TRANSPORTATION ENGINEER Type 2 diabetes mellitus without complication, with long-term current use of insulin (CMS/HCC) (HCC) MAGNESIUM Routine 02/23/2023 9:53 AM CIVIL TRANSPORTATION ENGINEER Type 2 diabetes mellitus without complication, with long-term current use of insulin (CMS/HCC) (HCC) HEMOGLOBIN A1C Routine 02/23/2023 9:53 AM CIVIL TRANSPORTATION ENGINEER Type 2 diabetes mellitus without complication, with long-term current use of insulin (CMS/HCC) (HCC) LIPID PANEL Routine 02/23/2023 9:53 AM CIVIL TRANSPORTATION ENGINEER Dyslipidemia COMPREHENSIVE METABOLIC PANEL Routine 02/23/2023 9:53 AM CIVIL TRANSPORTATION ENGINEER Chronic diastolic heart failure (HCC) Type 2 diabetes mellitus without complication, with long-term current use of insulin (CMS/HCC) (HCC) documented in this encounter Results * Critical Result Callback Chemistry (02/23/2023 9:53 AM CIVIL TRANSPORTATION ENGINEER) Date Notified [id number] SHANTELL DAVIS Time Notified 1223 SHANTELL DAVIS TestName Glucose SHANTELL SPAULDING Called/Read Back Paris Vasquez Credentials RN SHANTELL DAVIS Called By SALVADOR SPAULDING Blood 02/23/2023 9:53 AM CIVIL TRANSPORTATION ENGINEER 02/23/2023 11:45 AM CIVIL TRANSPORTATION ENGINEER us Notinfile Unknown LAB BLOOD ORDERABLES Final Res ult SHANTELL DAVIS [facility] Department [place] [address] * (ABNORMAL) eGFR (02/23/2023 9:53 AM CIVIL TRANSPORTATION ENGINEER) eGFR 56(L) >=60 mL/min/1. 73 m2 SHANTELL DAVIS Comment: Interpretive Data Reference Interval Normal ?>/= 90 mL/min/1.73m2 Mildly decreased* ? 60 - 89 mL/min/1.73m2 Mildly to moderately decreased ?45 - 59 mL/min/1.73m2 Moderately to severely decreased ??30 - 44 mL/min/1.73m2 Severely decreased ?15 - 29 mL/min/1.73m2 Kidney Failure ?< 15 ??mL/min/1.73m2 *Relative to young adult level Estimated glomerular filtration rate is determined by the 2020 CKD-EPI equation recommended by the National Kidney Foundation (A Unifying Approach to GFR Estimation: Recommendations of the NKF-ASK Task Force on Reassessing the Inclusion of Race in Diagnosing Kidney Disease, JASN 202). The CKD-EPI equation should not be used for patients with unstable renal function and has not been validated in children and those over 70. Current interpretive data was last reviewed 2020. Blood 02/23/2023 9:53 AM CIVIL TRANSPORTATION ENGINEER 02/23/2023 11:45 AM CIVIL TRANSPORTATION ENGINEER us Notinfile Unknown LAB BLOOD ORDERABLES Final Res ult [facility] Department [place] [address] * Differential, auto (02/23/2023 9:53 AM CIVIL TRANSPORTATION ENGINEER) Neutrophil abs 3.6 1.5 - 6.5 K/cumm [facility] Imm gran abs 0.0 0.0 - 0.1 K/cumm [facility] Lymphocyte abs 1.9 0.8 - 3.3 K/cumm [facility] Monocyte abs 0.4 0.2 - 0.8 K/cumm [facility] Eosinophil abs 0.1 0.0 - 0.5 K/cumm [facility] Basophil abs 0.1 0.0 - 0.1 K/cumm [facility] Neutrophil pct 59.6 % [facility] Comment: Interpretive Data Percent cell count reference ranges are not reported, since discordance with absolute values may lead to misinterpretation of CBC data. Current Interpretive Data was last revised on 2017. Imm gran pct 0.3 % [facility] Comment: Interpretive Data Percent cell count reference ranges are not reported, since discordance with absolute values may lead to misinterpretation of CBC data. Current Interpretive Data was last revised on 2017. Lymphocyte pct 30.7 % [facility] Comment: Interpretive Data Percent cell count reference ranges are not reported, since discordance with absolute values may lead to misinterpretation of CBC data. Current Interpretive Data was last revised on 2017. Monocyte pct 6.9 % [facility] Comment: Interpretive Data Percent cell count reference ranges are not reported, since discordance with absolute values may lead to misinterpretation of CBC data. Current Interpretive Data was last revised on 2017. Eosinophil pct 1.7 % [facility] Comment: Interpretive Data Percent cell count reference ranges are not reported, since discordance with absolute values may lead to misinterpretation of CBC data. Current Interpretive Data was last revised on 2017. Basophil pct 0.8 % [facility] Comment: Interpretive Data Percent cell count reference ranges are not reported, since discordance with absolute values may lead to misinterpretation of CBC data. Current Interpretive Data was last revised on 2017. Blood 02/23/2023 9:53 AM CIVIL TRANSPORTATION ENGINEER 02/23/2023 11:39 AM CIVIL TRANSPORTATION ENGINEER us Notinfile Unknown LAB BLOOD ORDERABLES Final Res ult SHANTELL DAVIS [facility] Department [place] [address] * (ABNORMAL) Lipid panel (02/23/2023 9:53 AM CIVIL TRANSPORTATION ENGINEER) Cholesterol 159 30 - 199 mg/dL [facility] Comment: Interpretive Data Ages [...] on 2017. Triglycerides 321(H) <=149 mg/dL [facility] Comment: Interpretive Data Ages [...] revised on 2017. HDL 29(L) >=40 mg/dL [facility] Comment: Interpretive Data Ages < or [...] 2017. LDL, calculated 66 <=129 mg/dL [facility] Comment: Interpretive Data Ages < or [...] revised on 2017. Non-HDL Cholesterol 130 mg/dL [facility] Comment: Interpretive Data Ages < or [...] last revised on 2017. Chol/HDL ratio 5 [facility] Blood 02/23/2023 9:53 AM CIVIL TRANSPORTATION ENGINEER 02/23/2023 11:37 AM CIVIL TRANSPORTATION ENGINEER Emi Celaya CHANGE ANALYST LAB BLOOD ORDERABLES Final Re sult [facility] Department [place] [address] * (ABNORMAL) Comprehensive metabolic panel (02/23/2023 9:53 AM CIVIL TRANSPORTATION ENGINEER) Sodium 138 135 - 145 mmol/L [facility] Potassium, pl 4.2 3.3 - 4.9 mmol/L [facility] Chloride 103 97 - 110 mmol/L [facility] CO2 26 22 - 32 mmol/L [facility] Anion gap 9 2 - 15 mmol/L [facility] BUN 19 6 - 25 mg/dL [facility] Creatinine 0.99 0.60 - 1.10 mg/dL [facility] Glucose 467(C) 70 - 199 mg/dL [facility] Comment: Interpretive Data Fasting glucose >/= 126 [...] classification and Diagnosis of Diabetes Diabetes Care 2021; 46: S19-S40. Current interpretive data was last revised 2022. Calcium 8.6 8.5 - 10.3 mg/dL [facility] Bilirubin, total 0.3 0.1 - 1.2 mg/dL [facility] Protein, pl 6.9 6.5 - 8.5 g/dL [facility] Albumin 3.8 3.5 - 5.0 g/dL [facility] Alk phos 67 40 - 130 Units/L [facility] ALT 14 7 - 45 Units/L [facility] AST 19 10 - 45 Units/L [facility] Blood 02/23/2023 9:53 AM CIVIL TRANSPORTATION ENGINEER 02/23/2023 11:38 AM CIVIL TRANSPORTATION ENGINEER Emi Celaya CHANGE ANALYST LAB BLOOD ORDERABLES Final Re sult [facility] Department [place] [address] * (ABNORMAL) Hemoglobin A1c (02/23/2023 9:53 AM CIVIL TRANSPORTATION ENGINEER) Hgb A1C 12.2(H) 4.0 - 5.6 % [facility] Estimated Average Glucose 303 mg/dL [facility] Comment: The ADA recommends reporting an estimated Average Glucose (eAG) with all Hemoglobin A1c results using the equation derived from a study of 507 normal and diabetic adults. ??Minority populations were underrepresented and children were not included. ?? (Diabetes Care 2020; 43(S1): S66-S76). ??The eAG is not equivalent to a fasting glucose. Blood 02/23/2023 9:53 AM CIVIL TRANSPORTATION ENGINEER 02/23/2023 11:39 AM CIVIL TRANSPORTATION ENGINEER Emi Celaya CHANGE ANALYST LAB BLOOD ORDERABLES Final Re sult [facility] [place] [address] * (ABNORMAL) CBC with auto differential (02/23/2023 9:53 AM CIVIL TRANSPORTATION ENGINEER) WBC 6.1 3.8 - 9.9 K/cumm [facility] Hgb 14.3 11.9 - 15.5 g/dL [facility] Hct 44.7 35.6 - 45.5 % [facility] Plt 169 150 - 400 K/cumm [facility] MPV 12.3 9.1 - 12.3 fL [facility] RBC 5.30(H) 3.90 - 5.20 M/cumm [facility] MCV 84.3 81.3 - 96.4 fL [facility] MCH 27.0(L) 27.1 - 33.3 pg [facility] MCHC 32.0(L) 32.3 - 35.7 g/dL [facility] RDW CV 12.4 11.1 - 14.9 % [facility] RDW SD 37.7 35.7 - 48.1 fL [facility] NRBC abs 0.00 0.00 - 0.01 K/cumm [facility] Blood 02/23/2023 9:53 AM CIVIL TRANSPORTATION ENGINEER 02/23/2023 11:39 AM CIVIL TRANSPORTATION ENGINEER Emi Celaya CHANGE ANALYST LAB BLOOD ORDERABLES Final Re sult [facility] [place] [address] * Magnesium (02/23/2023 9:53 AM CIVIL TRANSPORTATION ENGINEER) Magnesium 2.0 1.4 - 2.5 mg/dL [facility] Blood 02/23/2023 9:53 AM CIVIL TRANSPORTATION ENGINEER 02/23/2023 11:38 AM CIVIL TRANSPORTATION ENGINEER Emi Celaya CHANGE ANALYST LAB BLOOD ORDERABLES Final Re sult Performing Organization Address City/[facility]/ZIP Co de Phone Number [facility] Department [place] [address] * Phosphorus (02/23/2023 9:53 AM CIVIL TRANSPORTATION ENGINEER) Phosphorus, pl 2.6 2.3 - 4.5 mg/dL [facility] Blood 02/23/2023 9:53 AM CIVIL TRANSPORTATION ENGINEER 02/23/2023 11:38 AM CIVIL TRANSPORTATION ENGINEER Result [facility] Emi Celaya CHANGE ANALYST LAB BLOOD ORDERABLES Final Re sult Performing Organization Address [facility] Co de Phone Number [facility] [place] [address] documented in this encounter Visit Diagnoses Diagnosis Type 2 diabetes mellitus without complication, with long-term current use of insulin (CMS/HCC) (HCC) Chronic diastolic heart failure (HCC) Chronic diastolic heart failure Dyslipidemia Other and unspecified hyperlipidemia documented in this encounter Care Teams Sheriffs Detective Relationship Specialty Start Date End Date Mehul Verdugo MD [address] [facility] [address] [place] [address] PCP - General Internal Medicine 09/10/21 Paulette Geller MD [address] [place] [address] Consulting Physician Gastroenterology 05/22/21 documented as of this encounter
--- OUTSIDE RECORDS SUMMARY | 2024-02-28 15:33 | XMS_ITS | Encounter Summary ---
Author Organization [facility] Address [address] [place] [address] Care Team Providers Care Perinatal Specialist Name Role Phone Paulette Geller MD Unavailable + Mehul Verdugo MD Primary Care Provider [phone] Encounter Details Date Type Department Care Team (Late st Contact Info) Description 02/08/2023 [facility] [address] [facility] [address] [place] [address] Garima Silva, PRASHANTH [address] [facility] [address] [address] [place] [address] Social History Tobacco Use Types [...] on file Legal Sex Female 11:30 PM HEALTH AND SAFETY REPRESENTATIVE Gender Identity Female 06/15/2023 1:45 PM CDT Sexual Orientation Straight 06/15/2023 1: 45 PM CDT documented as of this encounter Plan of Treatment Not on file documented as of this encounter Visit Diagnoses Not on filedocumented in this encounter Care Teams Perinatal Specialist Relationship Specialty Start Date End Date Mehul Verdugo MD [address] [facility] [address] [place] [address] PCP - General Internal Medicine 09/10/21 Paulette Geller MD [facility] [address] [place] [address] Consulting Physician Gastroenterology 05/22/21 documented as of this encounter
--- OUTSIDE RECORDS SUMMARY | 2024-02-28 15:33 | XMS_ITS | Encounter Summary ---
Author Organization [facility] Address [address] [place] [address] Care Team Providers Care Women'S Apparel Salesperson Name Role Phone Paulette Geller MD Unavailable + Mehul Verdugo MD Primary Care Provider Reason for Visit * Reason Onset Date Comments Blood Sugar Problem 02/14/2023 Encounter Details Date Type Department Care Team (Late st Contact Info) Description 02/14/2023 [facility] [address] [facility] [address] [place] [id number] Mehul Verdugo MD [address] [facility] [address] [place] [address] Blood Sugar Problem Social History Tobacco Use Types Packs/Day Years [...] on file Legal Sex Female 11:30 PM COMMUNITY ADMINISTRATOR Gender Identity Female 06/15/2023 1:45 PM CDT Sexual Orientation Straight 06/15/2023 1: 45 PM CDT documented as of this encounter Ordered Prescriptions Prescription Sig Dispense Quantity Refills Last Filled Start Date End Date insulin degludec (TRESIBA) 100 unit/mL (3 mL) pen for injectionIndicatio ns:type 2 diabetes mellitus Inject 0.26 mL (26 Units total) under the skin daily 20 mL 3 02/14/2023 09/02/2023 documented in this encounter Miscellaneous Notes * Telephone Encounter - No Franz - 02/14/2023 12:49 PM COMMUNITY ADMINISTRATOR Pt's daughter notified and asked for new script be sent to pharmacy. Script updated and sent. UNITY ADMINISTRATOR * Telephone Encounter - Mehul Verdugo MD - 02/14/2023 12:04 PM CST Inc to 26 units, please have us send us records going forward UNITY ADMINISTRATOR * Telephone Encounter - No Franz - 02/14/2023 11:48 AM COMMUNITY ADMINISTRATOR Patient's daughter calling, said patient's morning BS has been running over 300 for a few weeks now. Pt currently on Tresiba 24 units. Wanting to know about adjusting this. UNITY ADMINISTRATOR documented in this encounter Plan of Treatment Not on file documented as of this encounter Visit Diagnoses Not on filedocumented in this encounter Discontinued Medications Medication Sig Discontinue Reason Start Date End Da te insulin degludec (TRESIBA) 100 unit/mL (3 mL) pen for injectionIndications:typ e 2 diabetes mellitus Inject 0.24 mL (24 Units total) under the skin daily Reorder 02/07/2023 02/14/2023 documented as of this encounter Care Teams Women'S Apparel Salesperson Relationship Specialty [place] [address] [place] [address] [address] [place] [address] PCP - General Internal Medicine 09/10/21 Paulette Geller MD [address] [place] [address] Consulting Physician Gastroenterology 05/22/21 documented as of this encounter
--- OUTSIDE RECORDS SUMMARY | 2024-02-28 15:33 | XMS_ITS | Encounter Summary ---
Author Organization [facility] Healthcare Address [address] [place] [address] Care Team Providers Care Flour Broker Name Role Phone Paulette Geller MD Unavailable + Mehul Verdugo MD Primary Care Provider [phone] Reason for Visit * Auth/Cert (Routine) Specialty Diagnoses / Procedures Referred By Cata t Referred To Contact Referral ID Status Reason Start Date Expiration Date Visits Re quested Visits Authorized [id number] 1 60 Encounter Details Date Type Department Care Team (Late st Contact Info) Description 01/10/2023 11:30 AM OIL FIRE SPECIALIST Home Care Visit [facility] [address] [address] [address] [place] [address] Bradley Mota, EDD SN HOME VISIT Social [...] on file Legal Sex Female 11:30 PM OIL FIRE SPECIALIST Gender Identity Female 06/15/2023 1:45 PM CDT Sexual Orientation Straight 06/15/2023 1: 45 PM CDT documented as of this encounter Last Filed Vital Signs Vital Sign Reading Time Taken Comments Blood Pressure 122/64 01/10/2023 12:30 PM OIL FIRE SPECIALIST Pulse 65 01/10/2023 12:30 PM OIL FIRE SPECIALIST Temperature 36.7 ??C (98 ??F) 01/10/2023 12:30 PM OIL FIRE SPECIALIST Respiratory Rate 18 01/10/2023 12:30 PM OIL FIRE SPECIALIST Oxygen Saturation 98% 01/10/2023 12:30 PM OIL FIRE SPECIALIST Inhaled Oxygen Concentration - - Weight - - Height - - Body Mass Index - - documented in this encounter Miscellaneous Notes * Home Health Visit Narrative - Bradley Mota RN - 01/10/2023 12:11 PM OIL FIRE SPECIALIST Assessed patient. Educated on s/s of infection, fall prevention, and who to call in the event of decline in health or emergency.Spouse/caregiver stated that he understands that patient shouldnt have sugar drinks, pastas, fruits that are high in carbs. Patient/caregiver are non compliant with low carb diet. They have made some changes. He uses a 0 calorie sweetner now for tea. He's trying to cut back on sweets. He did state that they had pumpkin pie last night. The night before the patient had lasagna. He stated he knew that these werent good choices, but that they cheated. FIRE SPECIALIST documented in this encounter Plan of Treatment Not on file documented as of this encounter Visit Diagnoses Not on filedocumented in this encounter Home Health Visit - Care Plan Visit Details Visit Type -SN Home Visit Discipline -Senior Care Problems Problem Description Start Date Status Goals Interve ntions Homebound Status Disciplines: Skilled Disciplines Patient's homebound status 12/15/2022 Active 1 goal linked to scheduled/documen soraida intervention 1 goal intervention scheduled/documen soraida in this visit Monitor patient's vital signs every home health visit Disciplines: SN, PT, OT, DIRECTOR MEETINGS, BASIC ACOUSTIC ANALYST, Skilled Disciplines Monitor patient's vital signs every [...] 12/15/2022 Active 1 goal linked to scheduled/documen osraida intervention 2 goal interventions scheduled/documen soraida in this visit Pain Disciplines: Core Disciplines Alteration in comfort 12/15/2022 Active 1 goal linked to scheduled/documen soraida intervention 1 goal intervention scheduled/documen soraida in this visit Disease Management - Diabetes Disciplines: Senior Care Management of diabetes symptoms 12/15/2022 Active 1 goal linked to scheduled/documen soraida intervention 3 goal interventions scheduled/documen soraida in this visit Learning/Teachin g Needs - Diabetes Disciplines: Senior Care Learning and teaching needs associated with diagnosis [...] visit during episode of care Description: Home photo optics technician to measure vital signs during every home [...] adequate knowledge of Diabetes Completed Instruct on diabetic diet. Spouse/caregiver stated that he understands that patient shouldnt have sugar drinks, pastas, fruits that are high in carbs. Patient/caregiver are non compliant with low carb diet. They have made some changes. He uses a 0 calorie sweetner now for tea. He's trying to cut back on sweets. He did state that they had pumpkin pie last night. The night before the patient had lasagna. He stated he knew that these werent good choices, but that they cheated. Instruct sick day Description: Instruct patient/caregiver in [...] Completed documented in this encounter Care Teams Flour Broker Relationship Specialty Start Date End Date Mehul Verdugo MD [address] [facility] [address] [place] [address] PCP - General Internal Medicine 09/10/21 Pauletet Geller MD [address] [place] [address] Consulting Physician Gastroenterology 05/22/21 documented as of this encounter
--- OUTSIDE RECORDS SUMMARY | 2024-02-28 15:33 | XMS_ITS | Encounter Summary ---
Author Organization [facility] Address [address] [place] [address] Care Team Providers Care Specimen Boss Name Role Phone Paulette Geller MD Unavailable + Mehul Verdugo MD Primary Care Provider [phone] Reason for Visit * Reason Onset Date Comments Hyperglycemia 03/07/2023 Encounter Details Date Type Department Care Team (Late st Contact Info) Description 03/07/2023 [facility] [address] [facility] [address] [place] [id number] Mehul Verdugo MD [address] [facility] [address] [place] [address] Hyperglycemia Social History Tobacco Use [...] on file Legal Sex Female 11:30 PM SALARY AND WAGE ADMINISTRATOR Gender Identity Female 06/15/2023 1:45 PM CDT Sexual Orientation Straight 06/15/2023 1: 45 PM CDT documented as of this encounter Miscellaneous Notes * Telephone Encounter - Silvana Fisher RN - 03/07/2023 1:58 PM CST I called spoke to daughter, they will increase to 35 and call next week with update. I explained that she most likely will need more adjusting. RY AND WAGE ADMINISTRATOR * Telephone Encounter - Mehul Verdugo MD - 03/07/2023 1:53 PM CST Yes please RY AND WAGE ADMINISTRATOR * Telephone Encounter - Silvana Fisher RN - 03/07/2023 1:[address] Wade her A1c was 12.2% end of January, down from 15% a few months ago. Do you want to increase herTresiba to 35? RY AND WAGE ADMINISTRATOR * Telephone Encounter - Mehul Verdugo MD - 03/07/2023 10:54 AM CST Jacquie can you please call? RY AND WAGE ADMINISTRATOR * Telephone Encounter - No Franz - 03/07/2023 10:34 AM SALARY AND WAGE ADMINISTRATOR Patient's daughter calling in on patient's blood sugar. Every morning she waking up patient's BS isover 300. She is currently on Tresiba 30 units every morning. Patient's BS is always above 200, daughter said. RY AND WAGE ADMINISTRATOR documented in this encounter Plan of Treatment Not on file documented as of this encounter Visit Diagnoses Not on filedocumented in this encounter Care Teams Specimen Boss Relationship Specialty Start Date End Date Mehul Verdugo MD [address] [facility] [address] [place] [address] PCP - General Internal Medicine 09/10/21 Paulette Geller MD [address] [place] [address] Consulting Physician Gastroenterology 05/22/21 documented as of this encounter
--- OUTSIDE RECORDS SUMMARY | 2024-02-28 15:33 | XMS_ITS | Encounter Summary ---
Author Organization [facility] Healthcare Address [address] [place] [address] Care Team Providers Care Skip Tracer Name Role Phone Paulette Geller MD Unavailable + Mehul Verdugo MD Primary Care Provider [phone] Reason for Visit * Auth/Cert (Routine) Specialty Diagnoses / Procedures Referred By Cata t Referred To Contact Referral ID Status Reason Start Date Expiration Date Visits Re quested Visits Authorized [id number] 1 60 Encounter Details Date Type Department Care Team (Late st Contact Info) Description 12/28/2022 11:00 AM CDT Home Care Visit [facility] [address] [address] [address] [place] [address] Bradley Mota, EDD SN HOME VISIT Social [...] file Legal Sex Female 11:30 PM DIRECTOR OF BROADCAST Gender Identity Female 06/15/2023 1:45 PM CDT Sexual Orientation Straight 06/15/2023 1: 45 PM CDT documented as of this encounter Last Filed Vital Signs Vital Sign Reading Time Taken Comments Blood Pressure 128/64 12/28/2022 10:51 AM CDT Pulse 65 12/28/2022 10:51 AM CDT Temperature 36.7 ??C (98 ??F) 12/28/2022 10:51 AM CDT Respiratory Rate 18 12/28/2022 10:51 AM CDT Oxygen Saturation 99% 12/28/2022 10:51 AM CDT Inhaled Oxygen Concentration - - Weight - - Height - - Body Mass Index - - documented in this encounter Plan of Treatment [...] health visit Disciplines: SN, PT, OT, FINANCE SPECIALIST, HAND FORMER HELPER, Skilled Disciplines Monitor patient's vital signs every [...] visit during episode of care Description: Home field auditor to measure vital signs during every home [...] Diabetes Goal:Demonstrate adequate knowledge of Diabetes Completed Instructed to cut back on fruit. Patient had cantelope today and a pear. Encouraged eggs, turkey [place], cheese. Instruct sick day Description: Instruct patient/caregiver in [...] Completed documented in this encounter Care Teams Skip Tracer Relationship Specialty Start Date End Date Mehul Verdugo MD [address] [facility] [address] [place] [address] PCP - General Internal Medicine 09/10/21 Paulette Geller MD [address] [place] [address] Consulting Physician Gastroenterology 05/22/21 documented as of this encounter
--- OUTSIDE RECORDS SUMMARY | 2024-02-28 15:34 | XMS_ITS | Encounter Summary ---
Author Organization [facility] Address [address] [place] [address] Phone Care Team Providers Care Shelter Director Name Role Phone Paulette Geller MD Unavailable + Mehul Verdugo MD Primary Care Provider Reason for Visit * Reason Onset Date Comments Med Dose Change 04/22/2022 Lasix increased: 20 mg and 40 mg alternating elevated bnp 04/22/2022 Encounter Details Date Type Department Care Team (Late st Contact Info) Description 04/22/2022 Telephone [facility] Cardiology [address] [place] [address] Sp Madrid MD [address] [facility] [address] [place] [address] Med Dose Change (Lasix increased: 20 mg and 40 mg alternating ); elevated bnp Social History Tobacco Use Types Packs/Day Years Used Date Smoking Tobacco: Never Smokeless Tobacco: Never Alcohol Use Standard Drinks/Week Comments No 0 (1 standard drink = 0.6 oz pur e alcohol) PHQ-2 Answer Date Recorded PHQ-2 Total Score (If total score is 3 or more points, staff should administer the PHQ-9) 0 05/27/2021 Comments No Sex and Gender Information Value Date Recorded Sex Assigned at Not on file Legal Sex Female 11:30 PM SENIOR TELECOMMUNICATIONS ENGINEER Gender Identity Female 06/15/2023 1:45 PM CDT Sexual Orientation Straight 06/15/2023 1: 45 PM CDT documented as of this encounter Ordered Prescriptions Prescription Sig Dispense Quantity Refills Last Filled Start Date End Date furosemide (LASIX) 20 mg tablet Take 1 tablet by mouth (20 mg) one day and then 2 tablets by mouth (40 mg) alternating. 180 tablet 3 04/22/2022 3 documented in this encounter Miscellaneous Notes * Telephone Encounter - Mendy Torres RN - 04/22/2022 4:42 PM SENIOR TELECOMMUNICATIONS ENGINEER BNP: 816 Lab Results Component Value Date GLUCOSE 338 (H) 04/20/2022 CALCIUM 9.4 04/20/2022 SODIUM 137 04/20/2022 POTASSIUM 5.1 (H) 04/20/2022 CO2 28 04/20/2022 CHLORIDE 100 04/20/2022 BUNSER 25 04/20/2022 CREATININE 1.26 (H) 04/20/2022 Sp Madrid MD: She is on lasix 20 mg prn , she should take lasix three to four times a week. Called and spoke with pt's Pedrito who was made aware of the results and he confirmed that pt is actually taking the Lasix at 20 mg a day. Discussed with Dr. Madrid and verbal orders given for pt to alternate 20 mg and 40 mg of Lasix. Spoke with pt's who agreed to have pt alternate 20 mg and 40 mg of Lasix and he will fix her pill box now. Medication list updated as they did not need any more medication at this time and will call the office back once they start to run low. OR TELECOMMUNICATIONS ENGINEER OR TELECOMMUNICATIONS ENGINEER OR TELECOMMUNICATIONS ENGINEER documented in this encounter Plan of Treatment Not on file documented as of this encounter Visit Diagnoses Not on filedocumented in this encounter Discontinued Medications Medication Sig Discontinue Reason Start Date End Da te furosemide (LASIX) 20 mg tablet Take 1 tablet (20 mg total) by mouth daily 07/10/2021 04/22/2022 documented as of this encounter Care Teams Shelter Director Relationship Specialty Start Date End Date Mehul Verdugo MD [address] [facility] [address] [place] [address] PCP - General Internal Medicine 09/10/21 Paulette Geller MD [address] [place] [address] Consulting Physician Gastroenterology 05/22/21 documented as of this encounter
--- OUTSIDE RECORDS SUMMARY | 2024-02-28 15:34 | XMS_ITS | Encounter Summary ---
Author Organization [facility] Address [address] [place] [address] Care Team Providers Care Coordinate Measuring Equipment Operator Name Role Phone Paulette Geller MD Unavailable + Mehul Verdugo MD Primary Care Provider [phone] Reason for Visit * Reason Onset Date Comments Metformin increase instruction 05/21/2022 Encounter Details Date Type Department Care Team (Late st Contact Info) Description 05/21/2022 [facility] [address] [place] [id number] Mehul Verdugo MD [address] [facility] [address] [place] [address] Metformin increase instruction Social History Tobacco Use Types Packs/Day Years [...] on file Legal Sex Female 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 Patient spouse notified to increase Mehul Verdugo MD Turner, Stacey, [employer] metformin to twice daily, thank you Previous Messages ----- Message ----- From: Melanie Wilkes MA Sent: 05/21/2022 9:55 AM CDT To: Mehul Verdugo MD Pt taking metformin 500mg once daily no glimepiride Per ----- Message ----- From: Mehul Verdugo MD Sent: 05/20/2022 12:30 PM CDT To: Melanie Wilkes MA Please call patient's tomorrow 05 21 to check on whether she is taking her metformin and glimepiride. documented in this encounter Plan of Treatment Not on file documented as of this encounter Visit Diagnoses Not on filedocumented in this encounter Care Teams Coordinate Measuring Equipment Operator Relationship Specialty Start Date End Date Mehul Verdugo MD [address] [facility] [address] [place] [address] PCP - General Internal Medicine 09/10/21 Paulette Geller MD [address] [place] [address] Consulting Physician Gastroenterology 05/22/21 documented as of this encounter
--- OUTSIDE RECORDS SUMMARY | 2024-02-28 15:34 | XMS_ITS | Encounter Summary ---
Author Organization [facility] Address [address] [place] [address] Care Team Providers Care Supervisor Correspondence Section Name Role Phone Paulette Geller MD Unavailable + Mehul Verdugo MD Primary Care Provider [phone] Encounter Details Date Type Department Care Team (Late st Contact Info) Description 12/20/2022 [facility] [address] [facility] [address] [place] [address] Silvana Fisher, RN [address] [place] [address] Social History Tobacco Use Types Packs/Day Years [...] on file 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 We need the HHN to reinforce teaching andassess situation at home. We need them to make sure the is writing down the sensor glucose numbers before each meal and bedtime. They were to call with numbers and teach the to communicate with our office when they are no longer seeing the patient. Someone hopefully the nurse who isfollowing the patient will call us back. * Telephone Encounter - Silvana Fisher RN - 12/21/2022 8:43 AM CDT I attempted to call HH to make sure that when they see the patient they need to get bg's for past 3-4 days. is supposed to be writing the CGM readings down on form that I gave him. They are to help teach and assess what is going on in home to help facilitate our care. I will try again later. * Telephone Encounter - Melanie Wilkes MA - 12/20/2022 10:58 AM CDT HH nurse is at the home and her bs is 325 she ate eggs and meat , cheese, 12oz of sweet tea 20 gm of sugar. Fasting this morning was 240 documented in this encounter Plan of Treatment Not on file documented as of this encounter Visit Diagnoses Not on filedocumented in this encounter Care Teams Supervisor Correspondence Section Relationship Specialty Start Date End Date Mehul Verdugo MD [address] [facility] [address] [place] [address] PCP - General Internal Medicine 09/10/21 Paulette Geller MD [address] [place] [address] Consulting Physician Gastroenterology 05/22/21 documented as of this encounter
--- OUTSIDE RECORDS SUMMARY | 2024-02-28 15:34 | XMS_ITS | Encounter Summary ---
Author Organization [facility] Healthcare Address [address] [place] [address] Care Team Providers Care Floor Renovator Name Role Phone Paulette Geller MD Unavailable + Mehul Verdugo MD Primary Care Provider [phone] Reason for Visit * Reason Onset Date Comments Home Care 12/14/2022 Encounter Details Date Type Department Care Team (Late st Contact Info) Description 12/14/2022 Telephone [facility] [address] [place] [address] Chante Maya, mink slicer Social History Tobacco Use Types Packs/Day Years [...] No 12/15/2022 OASIS B1300: Health Literacy Answer Abhsihek e Recorded Frequency of needing help to read materials from doctor or pharmacy Sometimes 12/15/2022 PHQ-2 Answer Date Recorded PHQ-2 Total Score (If total score is 3 or more points, staff should administer the PHQ-9) 0 05/27/2021 Comments No Sex and Gender Information Value Date Recorded Sex Assigned at Not on file Legal Sex Female 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 Patient accepted to [facility] Home Care. Home health serviceswas explained and information verified with patient's spouse Pedrito He agreed to home care services. Verified no other home care agency is in the home. He was instructed to call [phone] (option 4) if have not been contacted by [facility] Home Care with 24-48 hours. documented in this encounter Plan of Treatment Not on file documented as of this encounter Visit Diagnoses Not on filedocumented in this encounter Care Teams Floor Renovator Relationship Specialty Start Date End Date Mehul Verdugo MD [address] [facility] [address] [place] [address] PCP - General Internal Medicine 09/10/21 Paulette Geller MD [address] [place] [address] Consulting Physician Gastroenterology 05/22/21 documented as of this encounter
--- OUTSIDE RECORDS SUMMARY | 2024-02-28 15:34 | XMS_ITS | Encounter Summary ---
Author Organization [facility] Address [address] [place] [address] Care Team Providers Care Boot And Shoe Laborer Name Role Phone Paulette Geller MD Unavailable + Mehul Verdugo MD Primary Care Provider [phone] Reason for Visit * Reason Comments Diabetes Hyperlipidemia Hypertension Encounter Details Date Type Department Care Team (Late st Contact Info) Description 05/20/2022 11:15 AM CDT Office Visit [place] [facility] [address] [facility] [address] [place] [address] Mehul Verdugo MD [address] [facility] [address] [place] [address] Type 2 diabetes mellitus without complication, without long-term current use of insulin (CMS/HCC) (HCC) (Primary Dx); Hyperlipidemia, unspecified hyperlipidemia type; S/P mitral valve repair; HTN (hypertension), benign; Dyslipidemia Social History Tobacco [...] on file 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 Sex Female 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 Gender Identity Female 06/15/2023 1:45 PM CDT Sexual Orientation Straight 06/15/2023 1: 45 PM CDT documented as of this encounter Last Filed Vital Signs Vital Sign Reading Time Taken Comments Blood Pressure 149/79 05/20/2022 11:43 AM CDT Pulse 62 05/20/2022 11:43 AM CDT Temperature - - Respiratory Rate - - Oxygen Saturation - - Inhaled Oxygen Concentration - - Weight 67.6 kg (149 lb) 05/20/2022 11:43 AM CDT Height 154.9 cm (5' 1 ) 05/20/2022 11:43 AM CDT Body Mass Index 28.15 05/20/2022 11:43 AM CDT documented in this encounter Progress Notes * Mehul Verdugo MD - 05/20/2022 11:15 AM CDT Images from the original note were not included. Subjective/Objective Patient ID: Yulaina Johnson is a 81 y.o. female. Chief Complaint Diabetes, Hyperlipidemia, and Hypertension Diabetes Pertinent negatives for hypoglycemia include no dizziness, headaches or nervousness/anxiousness. Pertinent negatives for diabetes include no chest pain, no fatigue, no polydipsia, no polyphagia, no polyuria and no weakness. Hyperlipidemia Pertinent negatives include no chest pain or shortness of breath. Hypertension Pertinent negatives include no chest pain, headaches, palpitations or shortness of breath. 1. History of tricuspid and mitral valve repair. She has been on Eliquis for quite some time. In April she had an episode of bright red blood per rectum with evaluation subsequently suggesting diverticulosis with diverticular bleed. She has had no bleeding since then. She remains on Eliquis. 2. History of diabetes mellitus type 2 A1c today 10.3% using metformin and glimepiride. 3. History of chronic kidney disease with [...] Relation: Grandmother (Added by TW Conv) Social History Tobacco Use Smoking status: Never Smokeless tobacco: Never Substance and Sexual Activity Drug use: No Sexual activity: Defer Alcohol Use: Not on file Immunization History Administered Date(s) Administered Influenza, Quadrivalent, High Dose, Preservative Free, Intrr 12/18/2019, 12/24/2021 Influenza, Trivalent, Adjuvanted, Intramuscular 12/13/2017, 12/14/2017 Influenza, Trivalent, High Dose, Split, Preservative Free, Intramuscular 02/09/2019 Influenza, Unspecified 01/15/2015, 12/17/2020 Pfizer SARS-CoV-2 Vaccination (12+ YRS) CHASE-READY TO USE 07/20/2021 Pfizer SARS-CoV-2 Vaccination (12+ yrs) PURPLE 04/01/2020, 04/29/2020, 01/01/2021 Pneumococcal Conjugate PCV [...] or liedown for the next 30 min. amLODIPine (NORVASC) 10 mg tablet Take 1 tablet (10 mg total) by mouth daily aspirin 81 mg enteric coated tablet Take by mouth blood glucose diagnostic (glucose blood) strip Use to test blood sugar once daily DX: E11.9 non insulin dependent (True Metrix) blood-glucose meter (True Metrix Glucose Meter) misc Use to test blood sugar once daily DX: E11.9 non insulin dependent carvediloL (COREG) 25 mg tablet Take 1 tablet by mouth twice daily clopidogreL (PLAVIX) 75 mg tablet Take 1 tablet (75 mg total) by mouth daily Eliquis 2.5 mg tablet Take 1 tablet by mouth twice daily fenofibrate (TRIGLIDE) 160 mg tablet Take 1 tablet (160 mg total) by mouth daily furosemide (LASIX) 20 mg tablet Take 1 tablet by mouth (20 mg) one day and then 2 tablets by mouth (40 mg) alternating. lancets 33 gauge [facility] Use to test blood sugar once daily DX: E11.9 non insulin dependent. levETIRAcetam (KEPPRA) 500 mg tablet Take 500 mg by mouth every 12 (twelve) hours losartan (COZAAR) 100 mg tablet Take 1 tablet (100 mg total) by mouth daily metFORMIN (GLUCOPHAGE) 500 mg tablet Take 1 tablet (500 mg total) by mouth 2 (two) times a day withmeals mirtazapine (REMERON) 7.5 mg tablet TAKE 1 TABLET EVERY NIGHT potassium chloride ER 20 mEq CR tablet Take 1 tablet by mouth once daily pravastatin (PRAVACHOL) 40 mg tablet Take 1 tablet (40 mg total) by mouth daily tiotropium bromide (SPIRIVA RESPIMAT) 2.5 mcg/actuation [...] past 24 hrs: BP Pulse Height Weight 05/20/22 1143 149/79 62 154.9 cm (5' 1 ) 67.6 kg (149 lb) Wt Readings from Last 3 Encounters: 05/20/22 67.6 kg (149 lb) 04/20/22 65.1 kg (143 lb 9.6 oz) 04/02/22 63.5 kg (140 lb) Physical Exam Vitals and nursing note [...] visit: Type 2 diabetes mellitus without complication, without long-term current use of insulin ([facility]) (HCC) (E11.9) (Primary) Comments: A1c markedly increased. Diet has not changed much. Will have patient check medication at home to besure she is taking her diabetic meds Orders: - POCT hemoglobin A1c Hyperlipidemia, unspecified hyperlipidemia type (E78.5) Comments: Lipid doing well. Lipid rechecked due to obvious changes in blood glucose. Orders: - POCT lipid panel - POCT glucose S/P mitral valve repair (Z98.890) HTN (hypertension), benign (I10) Comments: BP at target. Dyslipidemia (E78.5) Labs Lab Results Component Value Date HGBA1C 10.3 05/20/2022 Lab Results Component Value Date POCCHOL 110 [...] Name Priority Date/Time Associated Diagnosis Comments POCT GLUCOSE 95294 Routine 05/20/2022 12 :27 PM CDT Hyperlipidemia, unspecified hyperlipidemia type POCT HEMOGLOBIN A1C Routine 05/20/2022 1 2:27 PM CDT Type 2 diabetes mellitus without complication, without long-term current use of insulin ([facility]) (HCC) POCT LIPID PANEL Routine 05/20/2022 12:2 7 PM CDT Hyperlipidemia, unspecified hyperlipidemia type documented in this encounter Results * (ABNORMAL) POCT glucose (05/20/2022 12:27 PM CDT) Glucose Blood, POC 267 mg/dL Blood 05/20/2022 12:2 7 PM CDT us Mehul Verdugo MD POINT OF CARE TEST ORDERABLES Final Result * POCT lipid panel (05/20/2022 12:27 PM CDT) Cholesterol, POC 110 mg/dL HDL, POC 36 mg/dL Triglycerides, POC 146 mg/dL LDL Cholesterol POC 44 mg/dL Chol/HDL Ratio, POC 3.0 Non-HDL Cholesterol, POC 3 mg/dL Cholesterol Total, POC 110 mg/dL Capillary blood 05/20/2022 1 2:27 PM CDT us Mehul Verdugo MD POINT OF CARE TEST ORDERABLES Final Result * (ABNORMAL) POCT hemoglobin A1c (05/20/2022 12:27 PM CDT) Hemoglobin A1C, POC 10.3 % Capillary blood 05/20/2022 1 2:27 PM CDT us Mehul Verdugo MD POINT OF CARE TEST ORDERABLES Final Result documented in this encounter Visit Diagnoses Diagnosis Type 2 diabetes mellitus without complication, without long-term current use of insulin ([facility]) (HCC)- Primary Hyperlipidemia, unspecified hyperlipidemia type S/P mitral valve repair Other postprocedural status HTN (hypertension), benign Essential hypertension, benign Dyslipidemia Other and unspecified hyperlipidemia documented in this encounter Historical Medications * This list may reflect changes made after this encounter. levETIRAcetam (KEPPRA) 500 mg tablet Take 1 tablet (500 mg total) by mouth every 12 (twelve) hours 04/29/2022 12/01/2023 added in this encounter Care Teams Boot And Shoe Laborer Relationship Specialty Start Date End Date Mehul Verdugo MD [address] [facility] [address] [place] [address] PCP - General Internal Medicine 09/10/21 Paulette Geller MD [address] [place] [address] Consulting Physician Gastroenterology 05/22/21 documented as of this encounter
--- OUTSIDE RECORDS SUMMARY | 2024-02-28 15:34 | XMS_ITS | Encounter Summary ---
Author Organization [facility] Address [address] [place] [address] Care Team Providers Care Loan Manager Name Role Phone Paulette Geller MD Unavailable + Mehul Verdugo MD Primary Care Provider [phone] Encounter Details Date Type Department Care Team (Late st Contact Info) Description 03/29/2022 [facility] [address] [facility] [address] [place] [address] Mehul Verdugo MD [address] [facility] [address] [place] [address] Social History Tobacco Use Types [...] on file Legal Sex Female 11:30 PM SIDE SAWYER Gender Identity Female 06/15/2023 1:45 PM CDT Sexual Orientation Straight 06/15/2023 1: 45 PM CDT documented as of this encounter Miscellaneous Notes * Telephone Encounter - Abimbola Devi M.A. - 03/29/2022 4:37 PM CST Spoke with Sherine and gave her directions. SAWYER * Telephone Encounter - Abimbola Devi M.A. - 03/29/2022 10:16 AM CST HH calling regarding some med list changes from [facility] for possible TIA , they sent her home with Lasix 60mg and previously was on 20mg daily. They did not increase her potassium with this increase in the Lasix They also did not include the Mirtazapine on her DC med list, HH nurse felt it might have been an over sight, she had her continue but wanted to make sure she should remain on this. Also did not see her Vit B6 on med list She is faxing over the med list as well. SAWYER documented in this encounter Plan of Treatment Not on file documented as of this encounter Visit Diagnoses Not on filedocumented in this encounter Care Teams Loan Manager Relationship Specialty Start Date End Date Mehul Verdugo MD [address] [facility] [address] [place] [address] PCP - General Internal Medicine 09/10/21 Paulette Geller MD [address] [place] [address] Consulting Physician Gastroenterology 05/22/21 documented as of this encounter
--- OUTSIDE RECORDS SUMMARY | 2024-02-28 15:34 | XMS_ITS | Encounter Summary ---
Author Organization [facility] Healthcare Address [address] [place] [address] Care Team Providers Care Gasoline Pump Installer Name Role Phone Paulette Geller MD Unavailable + Mehul Verdugo MD Primary Care Provider [phone] Reason for Visit * Auth/Cert (Routine) Specialty Diagnoses / Procedures Referred By Cata t Referred To Contact Referral ID Status Reason Start Date Expiration Date Visits Re quested Visits Authorized [id number] 1 60 Encounter Details Date Type Department Care Team (Late st Contact Info) Description 12/20/2022 11:30 AM CDT Home Care Visit [facility] [address] [address] [address] [place] [address] Bradley Mota, EDD SN HOME VISIT Social [...] on file 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 Educated on s/s of infection, fall prevention, and who to call in the event of decline in health or emergency. Educated caregiver on DM type [address] Verdugo's office and let them know that the patient is still running on an average in the 300's. Informed caregiver to go to theER if it gets above 400 documented in this encounter Plan of Treatment [...] home health visit Disciplines: SN, PT, OT, AUDIOMETRIST, CIRCULATING PROCESS INSPECTOR, Skilled Disciplines Monitor patient's vital signs every [...] goal interventions scheduled/documen soraida in this visit Learning/Rubén g Needs - Insulin Management Disciplines: Shelter Lack of knowledge related to insulin management 12/15/2022 Active 1 goal linked to scheduled/documen soraida intervention 1 goal intervention scheduled/documen soraida in this visit Problems with Coping - Diabetes Disciplines: Shelter Problems related to coping with home management of diabetes 12/15/2022 Active 1 goal linked to scheduled/documen soraida intervention 1 goal intervention scheduled/documen soraida in this visit Learning/Rubén g Needs - Diabetes Disciplines: Shelter Learning and teaching needs associated with diagnosis 12/15/2022 Active 1 goal linked to scheduled/documen soraida intervention 7 goal interventions scheduled/documen soraida in this visit Goals Goal Associated Problem Outcome Goal Met? Visit Notes Patient receives care at the most appropriate care setting Description: Patient receives care at the most appropriate care setting. Homebound Status No Measure vital signs during every home health visit during episode of care Description: Home residential collections to measure vital signs during every home [...] physician. Disease Management - Diabetes No Demonstrate ability to administer insulin Description: Patient/caregiver will demonstrate the ability to administer insulin using correct technique and site rotation by the end of the episode of care. Learning/Teaching Needs - Insulin Management No Demonstrate effective coping Description: Patient/caregiver will demonstrate knowledge of effective coping as evidenced by verbalizing knowledge of treatment regimen and recommended lifestyle changes. Problems with Coping - Diabetes No Demonstrate adequate knowledge of [...] Goal:Verbalize prevention of Diabetic complications Completed Instruct insulin administration Description: Instruct patient/caregiver in insulin purpose, side effects, possible complications, administration procedure, and schedule. Instruct on safe handling and storage of insulin and on safe disposal of needles and testing equipment. Problem:Learning/Tea layla Needs - Insulin Management Goal:Demonstrate ability to administer insulin Completed Caregiver demonstrated proper insulin administration Instruct coping Description: Instruct patient/caregiver on effective coping and problem-solving skills. Instruct patient to avoid known/identified stressors or events that prevent use of constructive coping mechanisms/behaviors. Problem:Problems with Coping - Diabetes Goal:Demonstrate effective coping Completed Caregiver does a great job with keeping the home quiete and relaxing Instruct diet Description: Instruct on diabetic diet. Problem:Learning/Tea layla Needs - Diabetes Goal:Demonstrate adequate knowledge of Diabetes Completed Caregiver stated that he is watching her carbs. As we went over her breakfast for today he stated she had eggs, with cheese and meat. She did have about 12oz of sweet tea 20 grams of sugar. He is going to get her unsweet for the future. Will continue to monitor. Instruct daily log Description: SN to develop blood sugar diary for patient to record all blood sugar readings in accordance with MD's Orders. Instruct when to call MD/RN or 911. Agency parameters: Call MD for blood sugar <70 for 3 days in a row or >240 for 3 days in a row or as instructed by MD. Problem:Learning/Tea layla Needs - Diabetes Goal:Demonstrate adequate knowledge of Diabetes Completed patient has dexecom Instruct sick day Description: Instruct patient/caregiver in Sick Day Guidelines. Problem:Learning/Tea layla Needs - Diabetes Goal:Demonstrate adequate knowledge of Diabetes Completed Instruct on signs and symptoms of hyperglycemia Description: Instruct patient/caregiver in signs/symptoms of hyperglycemia. Problem:Learning/Tea layla Needs - Diabetes Goal:Demonstrate adequate knowledge of Diabetes Completed Instruct s/s of hypoglycemia Description: Instruct patient/caregiver on the signs and symptoms of hypoglycemia. Problem:Learning/Tea layla Needs - Diabetes Goal:Demonstrate adequate knowledge of Diabetes Completed Caregiver stated understanding of s/s of hypoglycemia and to get the patient something with sugar, orange juice, candy. Blood glucose monitoring Description: Patient/caregiver to perform blood sugar testing and record in log. Frequency of testing before meals. Patient has a dexecom Problem:Learning/Tea layla Needs - Diabetes Goal:Demonstrate adequate knowledge of Diabetes Completed Teach diabetes Description: Provide patient with diabetic education booklet and instruct on material. Problem:Learning/Tea layla Needs - Diabetes Goal:Demonstrate adequate knowledge of Diabetes Completed Caregiver given educational DM booklet documented in this encounter Care Teams Gasoline Pump Installer Relationship Specialty Start Date End Date Mehul Verdugo MD [address] [place] [address] [address] [place] [address] PCP - General Internal Medicine 09/10/21 Paulette Geller MD [address] [place] [address] Consulting Physician Gastroenterology 05/22/21 documented as of this encounter
--- OUTSIDE RECORDS SUMMARY | 2024-02-28 15:34 | XMS_ITS | Encounter Summary ---
Author Organization [facility] Healthcare Address [address] [place] [address] Care Team Providers Care Exercise Physiology Professor Name Role Phone Paulette Geller MD Unavailable + Mehul Verdugo MD Primary Care Provider [phone] Reason for Visit * Auth/Cert (Routine) Specialty Diagnoses / Procedures Referred By Cata quintanilla Referred To Contact Referral ID Status Reason Start Date Expiration Date Visits Re quested Visits Authorized [id number] 1 60 Encounter Details Date Type Department Care Team (Late st Contact Info) Description 12/22/2022 Home Care Visit [facility] [address] [address] [address] [place] [address] Cindy Villavicencio RN SN TRIAGE ENCOUNTER Social History Tobacco Use Types Packs/Day [...] 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 MEHUL VERDUGO'S OFFICE YULIANA BLOCKE [phone] [address] [id number] [birth year] RE: ON A CONTINUOUS GLUCOSE SENSOR. NURSES SHOULD BE ENFORCING AND NEED TO WRITE DOWN READINGS. NEED 3-4 DAYS WORTH OF NUMBERS PLEASE CALL. Follow-up: EMAIL SENT TO [facility], CHARGE NURSES, SCHEDULERS, Cathryn ISLAS documented in this encounter Plan of Treatment Not on file documented as of this encounter Visit Diagnoses Not on filedocumented in this encounter Home Health Visit - Care Plan Visit Details Visit Type -SN Triage Encoun ter Discipline -Senior Care Problems Problem Description Start Date Status Goals Interve ntions Homebound Status Disciplines: Skilled Disciplines Patient's homebound status 12/15/2022 Active 1 goal linked to scheduled/documen soraida intervention 1 goal intervention scheduled/documen soraida in this visit Monitor patient's vital signs every home health visit Disciplines: SN, PT, OT, GLASS PROCESSING WORKER, MAP COMPILER, Skilled Disciplines Monitor patient's vital signs every [...] visit during episode of care Description: Home care clinician to measure vital signs during every home [...] care at the most appropriate care setting Scheduled Monitor Vital Signs Description: Monitor blood pressure, pulse, oxygen saturation, respirations Problem:Monitor patient's vital signs every home health visit Goal:Measure vital signs during every home health visit during episode of care Scheduled Educate Patient on Infection Prevention Description: Instruct [...] concerns Goal:Demonstrate use of safety precautions Scheduled Assess safety Description: Assess patient safety Problem:Safety [...] pain has been reduced or controlled Scheduled Assess Diabetes: Monitor for the presence of skin lesions on the lower extremity Description: Monitor for the presence of skin lesions on the lower extremity. Problem:Disease Management - Diabetes Goal:Verbalize prevention of Diabetic complications Scheduled Assess Diabetes: Knowledge Deficit Description: Assess for knowledge deficit of diabetes management Problem:Disease Management - Diabetes Goal:Verbalize prevention of Diabetic complications Scheduled Educate on foot care Description: Educate patient/caregiver on proper foot care. Problem:Disease Management - Diabetes Goal:Verbalize prevention of Diabetic complications Scheduled Instruct diet Description: Instruct on diabetic diet. Problem:Learning/Teachin g Needs - Diabetes Goal:Demonstrate adequate knowledge of Diabetes Scheduled Instruct sick day Description: Instruct patient/caregiver in Sick Day Guidelines. Problem:Learning/Teachin g Needs - Diabetes Goal:Demonstrate adequate knowledge of Diabetes Scheduled Instruct on signs and symptoms of hyperglycemia Description: Instruct patient/caregiver in signs/symptoms of hyperglycemia. Problem:Learning/Teachin g Needs - Diabetes Goal:Demonstrate adequate knowledge of Diabetes Scheduled Blood glucose monitoring Description: Patient/caregiver to perform blood sugar testing and record in log. Frequency of testing before meals. Patient has a dexecom Problem:Learning/Teachin g Needs - Diabetes Goal:Demonstrate adequate knowledge of Diabetes Scheduled documented in this encounter Care Teams Exercise Physiology Professor Relationship Specialty Start Date End Date Mehul Verdugo MD [address] [facility] [address] [place] [address] PCP - General Internal Medicine 09/10/21 Paulette Geller MD [address] [place] [address] Consulting Physician Gastroenterology 05/22/21 documented as of this encounter
--- OUTSIDE RECORDS SUMMARY | 2024-02-28 15:34 | XMS_ITS | Encounter Summary ---
Author Organization [facility] Address [address] [place] [address] Phone Care Team Providers Care Physician Obstetrician Name Role Phone Paulette Geller MD Unavailable + Mehul Verdugo MD Primary Care Provider [phone] Reason for Visit * Cardiology (Routine) - Closed Specialty Diagnoses / Procedures Referred By Contac t Referred To Contact Diagnoses Nonrheumatic mitral valve regurgitation Procedures Transthoracic Echo (TTE) Complete W Doppler/[place] [address] [place] [address] [address] [place] [address] Phone: tel: fax: [facility] (All Locations) Referral ID Status Reason Start Date Expiration Date Visits Re quested Visits Authorized [id number] Closed 04/20/2022 05/20/2023 1 1 Encounter Details Date Type Department Care Team (Latest Contact Info) Description 05/11/2022 1:30 PM CDT Ancillary Procedure [facility] [address] [facility] [address] [place] [address] Nonrheumatic mitral valve regurgitation Social History Tobacco Use Types Packs/Day Years [...] on file 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 Gender Identity Female 06/15/2023 1:45 PM CDT Sexual Orientation Straight 06/15/2023 1: 45 PM CDT documented as of this encounter Plan of Treatment Not on file documented as of this encounter Procedures Procedure Name Priority Date/Time Associated Diagnosis Comments TRANSTHORACIC ECHO (TTE) COMPLETE W DOPPLER/CF W CONTRAST Routine 05/11/2022 3:18 PM CDT Nonrheumatic mitral valve regurgitation documented in this encounter Results * TRANSTHORACIC ECHO (TTE) COMPLETE W DOPPLER/CF W CONTRAST (05/11/2022 3:18 PM CDT) LV EF 65 % CARDIOREPORT Anatomical Region Laterality Modality Ultrasound 05/11/2022 1:30 PM CDT Narrative 05/11/2022 7:49 PM CDT Patient name: Yuliana Johnson Date of test: 05/11/2022 Type of test: TTE w/Doppler Hospital #: [id number] Date of : 1940 (F) Industrial Health Engineer: YOANA Wu ??RDCS Referring Physician: SP KILPATRICK MD Contrast Agent: 0.8 ml Optison Administered, (2.2 ml wasted). Contrast Administered by: Mendy Torres RN Supervised/Interpreted by: Sp Kilpatrick MD Diagnosis: Location: [facility] Reason for test: MR MV Structure: Normal, ?MV Motion: Normal, ?? Mitral Annulus: annuloplasty [...] Variable ?2D Linear Normal ? Aotic Root: 3.0 cm ?<3.6 ? Ao Indexed: 1.8 cm/M2 <2.0 ? LA: ? 4.0 cm ?<3.8 ? RV: ? 3.6 cm ?<4.2 ? LV(ED): ? 4.6 cm ?<5.3 ? LV(ES): ? 3.0 cm ?<3.5 ?2D Vol. ?? Normal ?Indexed ?? Indexed Normal RA: ? 49.0 ml ? 30.1 ml/M2 ?9-33 ? LA: ? 74.0 ml ? 45.4 ml/M2 ?16-34 ? RV: ? <11.6 ? LV(ED): ? 79.0 ml ?? 46-106 ?48.5 ml/M2 ?<62 ? LV(ES): ? 28.0 ml ?? 14-42 ? 17.2 ml/M2 ?<25 ?3D Vol. ? Indexed Normal LV(ED): ?<62 ? LV(ES): ?<24 ? LV EF: 65 % ?? (Normal: >=54%) ?? LV Septum: 0.9 cm ?(Normal: <0.9 cm) Wall Motion Scoring (1=Normal 2=Hypo 3=Akinetic 4=Dyskin./Aneurysm 0=Not visualized) Parasternal Long [place]:MAS=1 BAS=1 MIL=1 ESTUARDO=1 Parasternal Short [place]:MAS=1 MIS=1 NM=1 MIL=1 MAL=1 MA=1 Apical 4 Chambers:=1 MIS=1 BIS=1 BAL=1 MAL=1 AL=1 AC=1 Apical 2 Chambers:AI=1 NM=1 BI=1 BA=1 MA=1 AA=1 AC=1 LV Global Longitudinal Strain: -12.7% ??(Normal <-17%) RV Global Longitudinal Strain: LV Function: Normal LV Ejection Fraction, ??(EF=54-74%) RV Function: Normal Septal Motion: Normal Pericardial Effusion: none seen Atrial Septum: Normal DOPPLER/COLOR FLOW DOPPLER RESULTS: Diastolic Function: Pseudo normal Tricuspid Valve: normal TV Pulmonic Valve: normal PV AV Regurgitation: No AR seen AV Stenosis: no AV Area: ??cm2 AV Pressure Gradient (mmHg): Mean: 0, Peak:0 MV Regurgitation: No MR seen MV Stenosis: no MS MV Area: ??cm2 MV Pressure Gradient (mmHg): Mean: 0 MV ERO: ??cm Regurg. Vol.: ??ml/beat Regurg. Frac.: ??% PA Pressure: ??mmHg DOPPLER/COLOR FOLOW DOPPLER COMMENTS: No AR seen, s/ p MV annuloplasty ring .No MR seen, no , no MS,s/p TV annuloplasty ring. ??normal TV, normal PV. Diastolic function: Pseudo normal CONTRAST: 0.8 ml Optison Administered, (2.2 ml wasted). SUMMARY: LA is moderately dilated. Normal RV cavity size. LV cavity size is normal. Normal LV wall thickness/mass. Normal Inferior vena cava. Normal aorta. ??No AR seen, s/ p MV annuloplasty ring .No MR seen, no , no MS,s/p TV annuloplasty ring. ??normal TV, normal PV. LVEF 65%.Reduced global LV myocardial longitudinal function and strain pattern. Diastolic function: Pseudo normal Confirmed on ??05/11/2022 - 19:49:47 by Sp Kilpatrick MD By signing this report, the attending director of infection control certifies that he or she has personally supervised and interpreted the echocardiogram and has reviewed and or edited and agrees with the written comments contained within the report. Procedure Note Sp Kilpatrick MD - 05/11/2022 Patient name: Yuliana Johnson Date of test: 05/11/2022 Type of test: TTE w/Doppler Hospital #: [id number] Date of : 1940 (F) Industrial Health Engineer: YOANA Wu [facility] Referring Physician: SP KILPATRICK MD Contrast Agent: 0.8 ml Optison Administered, (2.2 ml wasted). Contrast Administered by: Mendy Torres RN Supervised/Interpreted by: Sp Kilpatrick MD Diagnosis: Location: [facility] Reason for test: MR MV Structure: Normal, MV Motion: Normal, Mitral Annulus: annuloplasty AV Structure: tricuspid and is Normal, AV Motion: Normal Aotic root: Normal, TM: c/w annuloplasty ring, PV: Normal Valvular Vegetations: none seen, Mass/Thrombi: none seen RA: Normal Measurements: M-Mode Normal Aotic Root: <3.8 LA: <3.8 RV: <2.8 LV(ED): <5.7 LV(ES): Variable 2D Linear Normal Aotic Root: 3.0 cm <3.6 Ao Indexed: 1.8 cm/M2 <2.0 LA: 4.0 cm <3.8 RV: 3.6 cm <4.2 LV(ED): 4.6 cm <5.3 LV(ES): 3.0 cm <3.5 2D Vol. Normal Indexed Indexed Normal RA: 49.0 ml 30.1 ml/M2 9-33 LA: 74.0 ml 45.4 ml/M2 16-34 RV: <11.6 LV(ED): 79.0 ml 46-106 48.5 ml/M2 <62 LV(ES): 28.0 ml 14-42 17.2 ml/M2 <25 3D Vol. Indexed Normal LV(ED): <62 LV(ES): <24 LV EF: 65 % (Normal: >=54%) LV Septum: 0.9 cm (Normal: <0.9 cm) Wall Motion Scoring (1=Normal 2=Hypo 3=Akinetic 4=Dyskin./Aneurysm 0=Not visualized) Parasternal Long [place]:MAS=1 BAS=1 MIL=1 ESTUARDO=1 Parasternal Short [place]:MAS=1 MIS=1 NM=1 MIL=1 MAL=1 MA=1 Apical 4 Chambers:=1 MIS=1 BIS=1 BAL=1 MAL=1 AL=1 AC=1 Apical 2 Chambers:AI=1 NM=1 BI=1 BA=1 MA=1 AA=1 AC=1 LV Global Longitudinal Strain: -12.7% (Normal <-17%) RV Global Longitudinal Strain: LV Function: Normal LV Ejection Fraction, (EF=54-74%) RV Function: Normal Septal Motion: Normal Pericardial Effusion: none seen Atrial Septum: Normal DOPPLER/COLOR FLOW DOPPLER RESULTS: Diastolic Function: Pseudo normal Tricuspid Valve: normal TV Pulmonic Valve: normal PV AV Regurgitation: No AR seen AV Stenosis: no AV Area: cm2 AV Pressure Gradient (mmHg): Mean: 0, Peak:0 MV Regurgitation: No MR seen MV Stenosis: no MS MV Area: cm2 MV Pressure Gradient (mmHg): Mean: 0 MV ERO: cm Regurg. Vol.: ml/beat Regurg. Frac.: % PA Pressure: mmHg DOPPLER/COLOR FOLOW DOPPLER COMMENTS: No AR seen, [...] Confirmed on 05/11/2022 - 19:49:47 by Sp Kilpatrick MD By signing this report, the attending director of infection control certifies that he or she has personally supervised and interpreted the echocardiogram and has reviewed and or edited and agrees with the written comments contained within the report. us Sp Kilpatrick MD CV ECHO PROCEDURES Final Resul t documented in this encounter Visit Diagnoses Diagnosis Nonrheumatic mitral valve regurgitation documented in this encounter Administered Medications Inactive Administered Medications - up to 3 most recent administrations Medication Order MAR Action Action Date Dose Rate Site perflutren protein-a (OPTISON) 3 mL in sodium chloride 0.9% 8 mL syringe 1-8 mL, intravenous, Once in imaging, contrast, Starting on 05/11/22 at 1413, For 1 dose, Intra-Procedure (CV) Contrast Given 05/11/2022 2:14 PM CDT 2 mL documented in this encounter Orders Medications Ordered That Dion ht Not Have Been Administered Count Last Ordered Date First Ordered Date perflutren protein-a (OPTISO N) 3 mL in sodium chloride 0.9% 8 mL syringe 1 05/11/2022 documented in this encounter Care Teams Physician Obstetrician Relationship Specialty Start Date End Date Mehul Verdugo MD [address] [facility] [address] [place] [address] PCP - General Internal Medicine 09/10/21 Paulette Geller MD [address] [place] [address] Consulting Physician Gastroenterology 05/22/21 documented as of this encounter
--- OUTSIDE RECORDS SUMMARY | 2024-02-28 15:34 | XMS_ITS | Encounter Summary ---
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
--- OUTSIDE RECORDS SUMMARY | 2024-02-28 15:34 | XMS_ITS | Encounter Summary ---
Author Organization [facility] Address [address] [place] [address] Phone Care Team Providers Care Principal Planner Name Role Phone Paulette Geller MD Unavailable + Mehul Verdugo MD Primary Care Provider [phone] Reason for Referral * Cardiology (Routine) - Closed Specialty Diagnoses / Procedures Referred By Contac t Referred To Contact Diagnoses Nonrheumatic mitral valve regurgitation Procedures Transthoracic Echo (TTE) Complete W Doppler/CF Yarely Kilpatrick MD [address] [facility] [address] [place] [address] Phone: tel: fax: [facility] (All Locations) Referral ID Status Reason Start Date Expiration Date Visits Re quested Visits Authorized [id number] Closed 04/20/2022 05/20/2023 1 1 ELAIN TECHNICIAN Reason for Visit * Consultation (Routine) - Closed Specialty Diagnoses / Procedures Referred By Contac t Referred To Contact Cardiology Diagnoses Nonrheumatic mitral valve regurgitation Mehul Verdugo MD [address] [facility] [address] [place] [address] Phone: tel: fax: [facility] (All Locations) Referral ID Status Reason Start Date Expiration Date V isits Requested Visits Authorized [id number] Closed Specialty Services Required 11/16/2021 12/16/2022 12 Encounter Details Date Type Department Care Team (Latest Contact Info) Description 04/20/2022 10:45 AM PORCELAIN TECHNICIAN Office Visit [facility] Cardiology [address] [place] [address] Yarely Kilpatrick MD [address] [facility] [address] [place] [address] Nonrheumatic mitral valve regurgitation (Primary Dx) Social History Tobacco Use Types [...] on file Legal Sex Female 11:30 PM 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 Gender Identity Female 06/15/2023 1:45 PM CDT Sexual Orientation Straight 06/15/2023 1: 45 PM CDT documented as of this encounter Last Filed Vital Signs Vital Sign Reading Time Taken Comments Blood Pressure 120/70 04/20/2022 10:41 AM PORCELAIN TECHNICIAN Pulse 68 04/20/2022 10:41 AM PORCELAIN TECHNICIAN Temperature 36.2 ??C (97.1 ??F) 04/20/2022 10:[address] Respiratory Rate - - Oxygen Saturation 96% 04/20/2022 10:41 AM PORCELAIN TECHNICIAN Inhaled Oxygen Concentration - - Weight 65.1 kg (143 lb 9.6 oz) 04/20/2022 10:41 AM PORCELAIN TECHNICIAN Height 154.9 cm (5' 0.98 ) 04/20/2022 10:[address] Body Mass Index 27.15 04/20/2022 10:41 AM PORCELAIN TECHNICIAN documented in this encounter Patient Instructions * Patient Instructions* Yarely Kilpatrick MD - 04/20/2022 10:45 AM PORCELAIN TECHNICIAN ECHO WITH DOPPLER Bnp ,bmp, cbc rTC 4M ELAIN TECHNICIAN documented in this encounter Progress Notes * Yarely Kilpatrick MD - 04/20/2022 10:45 AM CST 04/20/2022 History of Present Illness: Yuliana Johnson is a pleasant 81 y.o. female who had a office consult [...] 6. Type 2 diabetes mellitus. 7. Dyslipidemia. She came for a follow up. She [...] Denies CP, SOB, PND, Orthopnea,dizziness, or lightheadedness. Current Outpatient Medications Medication Sig Dispense Refill [...] the next 30 min. 12 tablet 1 amLODIPine (NORVASC) 10 mg tablet Take 1 tablet (10 mg total) by mouth daily 90 tablet 1 aspirin 81 mg enteric coated tablet Take by mouth blood glucose diagnostic (glucose blood) strip Use to test blood sugar once daily DX: E11.9 non insulin dependent (True Metrix) 100 each 11 blood-glucose meter (True Metrix Glucose Meter) misc Use to test blood sugar once daily DX: E11.9 non insulin dependent 1 each 0 carvediloL (COREG) 25 mg tablet Take 1 tablet by mouth twice daily 180 tablet 3 clopidogreL (PLAVIX) 75 mg tablet Take 1 tablet (75 mg total) by mouth daily 90 tablet 1 Eliquis 2.5 mg tablet Take 1 tablet by mouth twice daily 60 tablet 6 fenofibrate (TRIGLIDE) 160 mg tablet Take 1 tablet (160 mg total) by mouth daily 90 tablet 1 lancets 33 gauge misc Use to test blood sugar once daily DX: E11.9 non insulin dependent. 100 each 11 losartan (COZAAR) 100 mg tablet Take 1 tablet (100 mg total) by mouth daily 90 tablet 2 metFORMIN (GLUCOPHAGE) 500 mg tablet Take 1 tablet (500 mg total) by mouth 2 (two) times a day withmeals 180 tablet 1 mirtazapine (REMERON) 7.5 mg tablet TAKE 1 TABLET EVERY NIGHT 90 tablet 0 potassium chloride ER 20 mEq CR tablet Take 1 tablet by mouth once daily 90 tablet 3 pravastatin (PRAVACHOL) 40 mg tablet Take 1 tablet (40 mg total) by mouth daily 90 tablet 0 tiotropium bromide (SPIRIVA RESPIMAT) 2.5 mcg/actuation inhaler Inhale 2 puffs daily 70 mcg of tiotropium 2 zolpidem (AMBIEN) 5 mg tablet TAKE 1 TABLET BY MOUTH NIGHTLY NEEDED FOR SLEEP 30 tablet 0 furosemide (LASIX) 20 mg tablet Take 1 tablet by mouth (20 mg) one day and then 2 tablets by mouth (40 mg) alternating. 180 tablet 3 No current facility-administered medications for this visit. PHYSICAL EXAMINATION Blood pressure 120/70, pulse 68, temperature 36.2 ??C (97.1 ??F), height 154.9 cm (5' 0.98 ), weight 65.1 kg (143 lb 9.6 oz), SpO2 96 %. Physical Exam Constitutional: Appearance: She is well-developed. HENT: Head: Normocephalic and atraumatic. Eyes: Conjunctiva/sclera: Conjunctivae normal. Pupils: Pupils are equal, round, and reactive to light. Comments: No Xanthelasma Neck: Thyroid: No thyromegaly. Vascular: No JVD. Cardiovascular: Rate and Rhythm: Normal rate and regular rhythm. Pulses: Intact distal pulses. Heart sounds: Normal heart sounds. No murmur heard. No friction rub. No gallop. Pulmonary: Effort: Pulmonary effort is normal. No respiratory distress. Breath sounds: Normal breath sounds. No wheezing or rales. Chest: Chest wall: No tenderness. Abdominal: General: Bowel sounds are normal. Palpations: Abdomen is soft. There is no mass. Tenderness: There is no abdominal tenderness. Musculoskeletal: General: No tenderness. Normal range of motion. Cervical back: Neck supple. Skin: General: Skin is warm and dry. Findings: No erythema or rash. Neurological: Mental Status: She is alert and oriented to person, place, and time. Deep Tendon Reflexes: Reflexes are normal and symmetric. Echo 04/28/2020 SUMMARY: LA is mildly dilated. Normal RV cavity size. LV cavity size is normal. Normal LV wall thickness/mass. Normal Inferior vena cava. Normal aorta. No AR seen, S/P MV annuloplasty ring No MR seen, no , no MS, normal TV, normal PV. LVEF 69%.Normal global LV Myocardial longitudinal function and LV strain pattern. Diastolic function: Pseudo normal Echo 03/22/2022 LVEF 60-65%. At [facility]. I reviewed the following labs and discussed with the patient. Lab Results Component Value Date CHOL 105 05/10/2021 CHOL 114 02/09/2019 CHOL 63 01/08/2015 POCCHOL 192 01/19/2022 POCCHOL 111 09/10/2021 Lab Results Component Value Date HDL 46 05/10/2021 HDL 39 (L) 02/09/2019 HDL 30 (L) 01/08/2015 POCHDL 51 01/19/2022 POCHDL 58 09/10/2021 POCHDL 31 09/30/2020 Lab Results Component Value Date LDLCALC 46 05/10/2021 LDLCALC 54 02/09/2019 LDL 17 01/08/2015 POCLDL 100 01/19/2022 POCLDL 39 09/10/2021 POCLDL n/a 09/30/2020 Lab Results Component Value Date TRIG 65 05/10/2021 TRIG 103 02/09/2019 TRIG 79 01/08/2015 POCTRIG 208 01/19/2022 POCTRIG 69 09/10/2021 POCTRIG 63 09/30/2020 Lab Results Component Value Date POCCHDLR n/a 09/30/2020 POCCHDLR 3.1 04/22/2020 Lab Results Component Value Date POCNONHDL n/a 09/30/2020 POCNONHDL 69 04/22/2020 Lab Results Component Value Date POCCHLPL <100 09/30/2020 POCCHLPL 102 04/22/2020 Lab Results Component Value Date GLUCOSE 338 (H) 04/20/2022 CALCIUM 9.4 04/20/2022 SODIUM 137 04/20/2022 POTASSIUM 5.1 (H) 04/20/2022 CO2 28 04/20/2022 CHLORIDE 100 04/20/2022 BUNSER 25 04/20/2022 CREATININE 1.26 (H) 04/20/2022 No results found for: CKTOTAL, CKMB, CKMBINDEX, TROPONINI Lab Results Component Value Date HGBA1C 7.3 01/19/2022 Lab Results Component Value Date WBC 7.5 04/20/2022 HGB 13.0 04/20/2022 HCT 41.5 04/20/2022 MCV 87.4 04/20/2022 LABPLAT 172 04/20/2022 Lab Results Component Value Date ALT 13 09/10/2021 AST 22 09/10/2021 ALKPHOS 46 09/10/2021 BILITOT 0.4 09/10/2021 Lab Results Component Value Date INR 1.8 (H) 05/19/2021 INR 1.48 (H) 01/07/2015 INR 2.4 (H) 01/07/2015 Assesment/Plan: 1. Chest pain with abnormal EKG. Chest pain has resolved. She is asymptomatic. 2. Hypertension. The blood pressure is controlled on carvedilol and amlodipine. Continue low salt diet. 3. Mitral valve disorder. She has no signs of heart failure. She is on losartan 100 mg a day. She understands to use endocardial prophylaxis. KARLY was negative for blood clot ,shunt or vegetations. Eho today showed pseudonormal diastolic function ,will give lasix 20 mg a day prn. Will get an echo with doppler, BMP.BNP. ordered. 4. Dyslipidemia. She is on fenofibrate 160 mg a day and low-fat diet. Tolerates regimen well. 5. Type 2 diabetes mellitus. She is on metformin and glimepiride. HbA1c 6.2 on 10/09/2018 6. 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 She is on eliquis 2.5 mg twice a day, 7. Diastolic heart failure : She have leg swelling , will take lasix prn only. Low salt diet. RTc 4 M . Please feel free to contact my office regarding her cardiac problems. Damien Norton MD carpenter labor supervisor Cardiology Division [facility] ELAIN TECHNICIAN documented in this encounter Plan of [...] #: 0 Date of : 1940 (F) Clinical Resource Manager: YOANA Wu ??RDCS Referring Physician: YARELY KILPATRICK MD Contrast Agent: 0.8 ml Optison Administered, (2.2 ml wasted). Contrast Administered by: Mendy Torres RN Supervised/Interpreted by: Yarely Kilpatrick MD Diagnosis: Location: [facility] Reason for test: MR [...] 2=Hypo 3=Akinetic 4=Dyskin./Aneurysm 0=Not visualized) Parasternal [place]:MAS=1 BAS=1 MIL=1 ESTUARDO=1 Parasternal [place]:MAS=1 MIS=1 ME=1 MIL=1 MAL=1 MA=1 Apical 4 Chambers:=1 MIS=1 BIS=1 BAL=1 MAL=1 AL=1 AC=1 Apical 2 Chambers:AI=1 ME=1 BI=1 BA=1 MA=1 AA=1 AC=1 LV Global [...] normal Confirmed on ??05/11/2022 - 19:49:47 by Yarely Kilpatrick MD By signing this report, the attending adobe ball mixer certifies that he or she has personally supervised and interpreted the echocardiogram and has reviewed and or edited and agrees with the written comments contained within the report. Procedure Note Yarely Kilpatrick MD - 05/11/2022 Patient name: Yuliana Johnson Date of test: 05/11/2022 Type of test: TTE w/Doppler Hospital #: 0 Date of : 1940 (F) Clinical Resource Manager: YOANA Wu [facility] Referring Physician: YARELY KILPATRICK MD Contrast Agent: 0.8 ml Optison Administered, (2.2 ml wasted). Contrast Administered by: Mendy Torres RN Supervised/Interpreted by: Yarely Kilpatrick MD Diagnosis: Location: [facility] Reason for test: MR MV Structure: Normal, [...] 2=Hypo 3=Akinetic 4=Dyskin./Aneurysm 0=Not visualized) Parasternal [place]:MAS=1 BAS=1 MIL=1 ESTUARDO=1 Parasternal [place]:MAS=1 MIS=1 ME=1 MIL=1 MAL=1 MA=1 Apical 4 Chambers:=1 MIS=1 BIS=1 BAL=1 MAL=1 AL=1 AC=1 Apical 2 Chambers:AI=1 ME=1 BI=1 BA=1 MA=1 AA=1 AC=1 LV Global [...] normal Confirmed on 05/11/2022 - 19:49:47 by Yarely Kilpatrick MD By signing this report, the attending adobe ball mixer certifies that he or she has personally supervised and interpreted the echocardiogram and has reviewed and or edited and agrees with the written comments contained within the report. us Yarely Kilpatrick MD CV ECHO PROCEDURES Final Resul t * (ABNORMAL) Pro B-type natriuretic peptide (04/20/2022 12:04 PM PORCELAIN TECHNICIAN) NT-proBNP 810(H) <=450 pg/mL [facility] Comment: Interpretive Comments: A. Dyspnea in Acute Care Setting All Ages: ?< 300 pg/ml, acute heart failure unlikely. < 50 yrs: ?300 - 450 pg/ml, further investigation warranted. ? > 450 pg/ml, acute heart failure likely. 50 - 74 yrs: ? 300 - 900 pg/ml, further investigation warranted. ? > 900 pg/ml, acute heart failure likely . > or = 75 yrs: ? 450 - 1800 pg/ml, further investigation warranted. ? > 1800 pg/ml, acute heart failure likely. B. Non-acute Setting < 75 yrs ? < 125 pg/ml, rules out heart failure. ? > or = 125 pg/ml, further investigation warranted. > or = 75 yrs ?< 450 pg/ml, rules out heart failure. ? > or = 450 pg/ml, further investigation warranted. - Knowledge of each individual patient's NT-proBNP range may be more useful than using similar cut-points for every patient. Please note that marked elevations in NT-proBNP levels may be observed in state other than Left Ventricular Congestive Failure, including: acute coronary syndromes, right heart strain/failure (including pulmonary embolism and cor pulmonale), critical illness, renal failure, as well as advanced age. - References: 1. Hiral ADAMS et.al. Eur Heart J. 2006:27:330-337. 2. Dayana RW, Ralph MORGAN. J. AM Gus Cardiol: Cardiovasc Imag. 2009;2: 216- 225. Interpretive Data Last Revised Date: 2017. Blood 04/20/2022 12:0 4 PM PORCELAIN TECHNICIAN 04/20/2022 1:47 PM PORCELAIN TECHNICIAN us Yarely Kilpatrick MD LAB BLOOD ORDERABLES Final Res ult [facility] Department of Laboratories [place], [place] [id number] * (ABNORMAL) CBC with auto differential (04/20/2022 12:04 PM PORCELAIN TECHNICIAN) WBC 7.5 3.8 - 9.9 K/cumm [facility] Hgb 13.0 11.9 - 15.5 g/dL [facility] Hct 41.5 35.6 - 45.5 % [facility] Plt 172 150 - 400 K/cumm [facility] MPV 12.4(H) 9.1 - 12.3 fL [facility] RBC 4.75 3.90 - 5.20 M/cumm [facility] MCV 87.4 81.3 - 96.4 fL [facility] MCH 27.4 27.1 - 33.3 pg [facility] MCHC 31.3(L) 32.3 - 35.7 g/dL [facility] RDW CV 12.9 11.1 - 14.9 % [facility] RDW SD 41.0 35.7 - 48.1 fL [facility] NRBC abs 0.00 0.00 - 0.01 K/cumm [facility] Blood 04/20/2022 12:0 4 PM PORCELAIN TECHNICIAN 04/20/2022 1:47 PM PORCELAIN TECHNICIAN us Yarely Kilpatrick MD LAB BLOOD ORDERABLES Final Res ult [facility] [place] [address] * (ABNORMAL) Basic metabolic panel (04/20/2022 12:04 PM PORCELAIN TECHNICIAN) Sodium 137 135 - 145 mmol/L [facility] Potassium, pl 5.1(H) 3.3 - 4.9 mmol/L [facility] Chloride 100 97 - 110 mmol/L [facility] CO2 28 22 - 32 mmol/L [facility] Anion gap 9 2 - 15 mmol/L [facility] BUN 25 8 - 25 mg/dL [facility] Creatinine 1.26(H) 0.60 - 1.10 mg/dL [facility] Glucose 338(H) 70 - 199 mg/dL [facility] Comment: Interpretive Data Fasting glucose >/= 126 [...] interpretive data was last revised 2022. Calcium 9.4 8.5 - 10.3 mg/dL [facility] Blood 04/20/2022 12:0 4 PM PORCELAIN TECHNICIAN 04/20/2022 1:47 PM PORCELAIN TECHNICIAN us Yarely Kilpatrick MD LAB BLOOD ORDERABLES Final Res ult [facility] [place] [address] documented in this encounter Visit Diagnoses Diagnosis Nonrheumatic mitral valve regurgitation- Primary Nonrheumatic mitral valve regurgitation documented in this encounter Historical Medications * This list may reflect changes made after this encounter. aspirin 81 mg enteric coated tabletIndications :prevention of thrombosis Take 1 tablet (81 mg total) by mouth daily 03/25/2022 added in this encounter Care Teams Principal Planner Relationship Specialty Start Date End Date Mehul Verdugo MD [address] [facility] [address] [place] [address] PCP - General Internal Medicine 09/10/21 Paulette Geller MD [address] [place] [address] Consulting Physician Gastroenterology 05/22/21 documented as of this encounter
--- OUTSIDE RECORDS SUMMARY | 2024-02-28 15:34 | XMS_ITS | Encounter Summary ---
Author Organization [facility] Healthcare Address [address] [place] [address] Care Team Providers Care Recreational Therapy Aide Name Role Phone Paulette Geller MD Unavailable + Mehul Verdugo MD Primary Care Provider [phone] Reason for Visit * Auth/Cert (Routine) Specialty Diagnoses / Procedures Referred By Cata t Referred To Contact Referral ID Status Reason Start Date Expiration Date Visits Re quested Visits Authorized [id number] 1 60 Encounter Details Date Type Department Care Team (Late st Contact Info) Description 12/15/2022 Home Care Visit [facility] [address] [address] [address] [place] [address] Bradley Mota, RN SBAR-START OF CARE/RESUMPTION Social History Tobacco Use Types Packs/Day Years [...] on file 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
--- OUTSIDE RECORDS SUMMARY | 2024-02-28 15:34 | XMS_ITS | Encounter Summary ---
Author Organization [facility] Address [address] [place] [address] Care Team Providers Care Cage Shift Manager Name Role Phone Paulette Geller MD Unavailable + Mehul Verdugo MD Primary Care Provider [phone] Reason for Visit * Reason Comments Hospital Follow Up [facility] TIA Encounter Details Date Type Department Care Team (Late st Contact Info) Description 04/02/2022 10:45 AM PUTTY WORKER Office Visit [facility] [address] [facility] [address] [facility] [place] [id number] Liv Yi [address] [facility] [address] [place], [place] [id number] Hospital discharge follow-up (Primary Dx); Altered mental status, unspecified altered mental status type; HTN (hypertension), benign Social History Tobacco Use [...] on file Legal Sex Female 11:30 PM PUTTY WORKER Gender Identity Female 06/15/2023 1:45 PM CDT Sexual Orientation Straight 06/15/2023 1: 45 PM CDT documented as of this encounter Last Filed Vital Signs Vital Sign Reading Time Taken Comments Blood Pressure 112/78 04/02/2022 11:00 AM PUTTY WORKER Pulse 72 04/02/2022 11:00 AM PUTTY WORKER Temperature - - Respiratory Rate - - Oxygen Saturation 99% 04/02/2022 11:00 AM PUTTY WORKER Inhaled Oxygen Concentration - - Weight 63.5 kg (140 lb) 04/02/2022 11:00 AM PUTTY WORKER Height 154.9 cm (5' 1 ) 04/02/2022 11:00 AM PUTTY WORKER Body Mass Index 26.45 04/02/2022 11:00 AM PUTTY WORKER documented in this encounter Patient Instructions * Patient Instructions* Liv Yi NP - 04/02/2022 10:45 AM PUTTY WORKER Look to see if she is on a medication call Kecj (Levetiracetam). Then call the office and let us know the dose and how often she is taking the medication. Neurology has been consulted. Y WORKER Y WORKER Y WORKER documented in this encounter Progress Notes * Liv Yi NP - 04/02/2022 10:45 AM CST Subjective/Objective Patient ID: Yuliana Johnson is a 81 y.o. female. Diagnoses and all orders for this visit: Hospital discharge follow-up (Z09) (Primary) Altered mental status, unspecified altered mental status type (R41.82) Comments: continue keppra, neurology consult, encourage the pt's to call in to give dose of keppra Orders: - Ambulatory referral to Neurology; Future HTN (hypertension), benign (I10) Comments: bp control, continue medication Chief Complaint Hospital Follow Up ([facility]. TIA) Vitals BP 112/78 (BP Location: Right arm, Patient Position: Sitting) Pulse 72 Ht 154.9 cm (5' 1 ) Wt 63.5 kg (140 lb) SpO2 99% BMI 26.45 kg/m?? HPI 81 y.o female with a history of of HTN, Mitral valve repair, CHF, type 2 diabetes, osteoporosis. Ptpresents today for a hospital follow up. She sent to the ER for left side weakness, slurred speech.MRI showed old stroke. Sonya was add for possible seizure and neurology was consulted. Pt is at the visit with her . Her has been answering the questions. Per spouse she has been eating and drinking with no issues. He denied any concerns for the patient. HTN: BP control. Denies CP, SOB, PND, orthopnea or edema. Current Outpatient Medications: acetaminophen (TYLENOL) 325 mg [...] 30 min., Disp: 12 tablet, Rfl: 1 amLODIPine (NORVASC) 10 mg tablet, Take 1 tablet (10 mg total) by mouth daily, Disp: 90 tablet, Rfl: 1 blood glucose diagnostic (glucose blood) strip, Use to test blood sugar once daily DX: E11.9 non insulin dependent (True Metrix), Disp: 100 each, Rfl: 11 blood-glucose meter (True Metrix Glucose Meter) [facility], Use to test blood sugar once daily DX: E11.9 non insulin dependent, Disp: 1 each, Rfl: 0 carvediloL (COREG) 25 mg tablet, Take 1 tablet (25 mg total) by mouth 2 (two) times a day with meals, Disp: 180 tablet, Rfl: 1 clopidogreL (PLAVIX) 75 mg tablet, Take 1 tablet (75 mg total) by mouth daily, Disp: 90 tablet, Rfl: 1 Eliquis 2.5 mg tablet, Take 1 tablet by mouth twice daily, Disp: 60 tablet, Rfl: 6 fenofibrate (TRIGLIDE) 160 mg tablet, Take 1 tablet (160 mg total) by mouth daily, Disp: 90 tablet,Rfl: 1 furosemide (LASIX) 20 mg tablet, Take 1 tablet (20 mg total) by mouth daily, Disp: 90 tablet, Rfl: 3 lancets 33 gauge misc, Use to test blood sugar once daily DX: E11.9 non insulin dependent., Disp: 100 each, Rfl: 11 losartan (COZAAR) 100 mg tablet, Take 1 tablet (100 mg total) by mouth daily, Disp: 90 tablet, Rfl:2 metFORMIN (GLUCOPHAGE) 500 mg tablet, Take 1 tablet (500 mg total) by mouth 2 (two) times a day with meals, Disp: 180 tablet, Rfl: 1 mirtazapine (REMERON) 7.5 mg tablet, TAKE 1 TABLET EVERY NIGHT, Disp: 90 tablet, Rfl: 0 potassium chloride ER 20 mEq CR tablet, Take 1 tablet by mouth once daily, Disp: 90 tablet, Rfl: 3 pravastatin (PRAVACHOL) 40 mg tablet, Take 1 tablet (40 mg total) by mouth daily, Disp: 90 tablet, Rfl: 0 tiotropium bromide (SPIRIVA RESPIMAT) 2.5 mcg/actuation inhaler, Inhale 2 puffs daily, Disp: 70 mcgof tiotropium, Rfl: 2 zolpidem (AMBIEN) 5 mg tablet, TAKE 1 TABLET BY MOUTH NIGHTLY NEEDED FOR SLEEP, Disp: 30 tablet,Rfl: 0 Past Surgical History: Procedure Laterality Date HYSTERECTOMY KYPHOPLASTY THORACIC N/A 05/23/2020 MASTECTOMY Left MITRAL VALVE REPAIR Family History Problem Relation Age of Onset Alcohol abuse Mother Alcohol abuse Father Hypertension Maternal Grandfather Family history of hypertension - Relation: Grandfather (Added by Conv)/Family history of hypertension - Relation: Grandfather (Added by Conv) Hypertension Other Family history of hypertension - Relation: Grandmother (Added by Conv) Hypertension Other Family history of hypertension - Relation: Grandmother (Added by Conv) Review of Systems All other systems reviewed and are negative. Physical Exam Constitutional: Appearance: Normal appearance. Cardiovascular: Rate and Rhythm: Normal rate and regular rhythm. Pulses: Normal pulses. Heart sounds: Normal heart sounds. Pulmonary: Effort: Pulmonary effort is normal. Breath sounds: Normal breath sounds. Abdominal: General: Bowel sounds are normal. Musculoskeletal: General: Normal range of motion. Skin: General: Skin is warm and dry. Neurological: General: No focal deficit present. Mental Status: She is alert. Psychiatric: Mood and Affect: Mood normal. Labs Lab Results Component Value Date HGBA1C 7.3 01/19/2022 Lab Results Component Value Date POCCHOL 192 01/19/2022 POCHDL 51 01/19/2022 POCTRIG 208 01/19/2022 POCLDL 100 01/19/2022 POCNONHDL n/a 09/30/2020 Lab Results Component Value Date COLORU Straw 05/09/2021 CLARITYU Clear 05/09/2021 GLUCOSEUR Negative 05/09/2021 BILIRUBINUR Negative 05/09/2021 KETONESU Negative 05/09/2021 SPECGRAVU 1.024 05/09/2021 BLOODUR Trace (A) 05/09/2021 UROBILINOGEN <2.0 05/09/2021 Y WORKER documented in this encounter Plan of Treatment Not on file documented as of this encounter Visit Diagnoses Diagnosis Hospital discharge follow-up- Primary Other follow-up examination Altered mental status, unspecified altered mental status type HTN (hypertension), benign Essential hypertension, benign documented in this encounter Care Teams Cage Shift Manager Relationship Specialty Start Date End Date Mehul Verdugo MD [address] [facility] [address] [place] [address] PCP - General Internal Medicine 09/10/21 Paulette Geller MD [address] [place] [address] Consulting Physician Gastroenterology 05/22/21 documented as of this encounter
--- OUTSIDE RECORDS SUMMARY | 2024-02-28 15:34 | XMS_ITS | Encounter Summary ---
Author Organization [facility] Address [address] [place] [address] Phone Care Team Providers Care Partner Manager Name Role Phone Paulette Geller MD Unavailable + Mehul Verdugo MD Primary Care Provider [phone] Reason for Visit * Reason Onset Date Comments Med Management 09/24/2022 Eliquis Encounter Details Date Type Department Care Team (Late st Contact Info) Description 09/24/2022 Telephone [facility] Cardiology [address] [facility] [address] [place] [address] [place] [address] Sp Madrid MD [address] [facility] [address] [place] [address] Med Management (Eliquis) Social History Tobacco Use Types Packs/Day Years [...] on file 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 LMOR for pt to call the office back to discuss or to send the staff a portal message. * Telephone Encounter - Nathalie Butler - 09/24/2022 9:50 AM CDT Julius Pts spouse is calling in regards to speaking to a nurse about the pts eliquis. documented in this encounter Plan of Treatment Not on file documented as of this encounter Visit Diagnoses Not on filedocumented in this encounter Care Teams Partner Manager Relationship Specialty Start Date End Date Mehul Verdugo MD [address] [facility] [address] [place] [address] PCP - General Internal Medicine 09/10/21 Paulette Geller MD [address] [place] [address] Consulting Physician Gastroenterology 05/22/21 documented as of this encounter
--- OUTSIDE RECORDS SUMMARY | 2024-02-28 15:34 | XMS_ITS | Encounter Summary ---
Author Organization [facility] Address [address] [place] [address] Phone Care Team Providers Care Triage Nurse Name Role Phone Paulette Geller MD Unavailable + Mehul Verdugo MD Primary Care Provider [phone] Encounter Details Date Type Department Care Team (Latest Contact Info) Description 09/23/2022 2:00 PM CDT Office Visit [facility] Cardiology [address] 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 Gender Identity Female 06/15/2023 1:45 PM CDT Sexual Orientation Straight 06/15/2023 1: 45 PM CDT documented as of this encounter Last Filed Vital Signs Vital Sign Reading Time Taken Comments Blood Pressure 151/78 09/23/2022 2:42 PM CDT Pulse 85 09/23/2022 2:42 PM CDT Temperature 36.6 ??C (97.9 ??F) 09/23/2022 2:42 PM CD T Respiratory Rate - - Oxygen Saturation 95% 09/23/2022 2:42 PM CDT Inhaled Oxygen Concentration - - Weight 68 kg (150 lb) 09/23/2022 2:42 PM CDT Height 154.9 cm (5' 1 ) 09/23/2022 2:42 PM CDT Body Mass Index 28.34 09/23/2022 2:42 PM CDT documented in this encounter Ordered Prescriptions Prescription Sig Dispense Quantity Refills Last Filled Start Date End Date furosemide (LASIX) 40 mg tablet Take 1 tablet (40 mg total) by mouth daily Take 1 tablet by mouth (20 mg) one day and then 2 tablets by mouth (40 mg) alternating. 90 tablet 3 09/23/2022 3 amLODIPine (NORVASC) 5 mg tabletIndications: hypertension Take 1 tablet (5 mg total) by mouth daily 90 tablet 3 09/23/2022 4 documented in this encounter Progress Notes * Sp Madrid MD - 09/23/2022 2:00 PM CDT 09/23/2022 Cardiology Consult History of Present Illness: Yuliana Johnson is [...] lightheadedness. She has developed leg swelling . Current Outpatient Medications Medication Sig Dispense Refill [...] (NORVASC) 10 mg tablet Take 1 tablet by mouth once daily 90 tablet 1 aspirin 81 mg enteric coated tablet Take by mouth blood glucose diagnostic (glucose blood) strip Use to test blood sugar once daily DX: E11.9 non insulin dependent (True Metrix) 100 each 11 blood-glucose meter (True Metrix Glucose Meter) [facility] Use to test blood sugar once daily [...] mouth daily 90 tablet 1 furosemide (LASIX) 20 mg tablet Take 1 tablet by mouth (20 mg) one day and then 2 tablets by mouth (40 mg) alternating. 180 tablet 3 lancets 33 gauge misc Use to test blood sugar once daily DX: E11.9 non insulin dependent. 100 each 11 levETIRAcetam (KEPPRA) 500 mg tablet Take 500 [...] tablet by mouth once daily 90 tablet 1 tiotropium bromide (SPIRIVA RESPIMAT) 2.5 mcg/actuation inhaler Inhale 2 puffs daily 70 mcg of tiotropium 2 zolpidem (AMBIEN) 5 mg tablet TAKE 1 TABLET BY MOUTH NIGHTLY NEEDED FOR SLEEP 30 tablet 0 No current facility-administered medications for this visit. PHYSICAL EXAMINATION Blood pressure 151/78, pulse 85, temperature 36.6 ??C (97.9 ??F), height 154.9 cm (5' 1 ), weight 68 kg (150 lb), SpO2 95 %. Physical Exam Constitutional: Appearance: She is [...] range of motion. Cervical back: Neck supple. Right lower leg: Edema present. Left lower leg: Edema present. Skin: General: Skin is warm and dry. [...] Pseudo normal Echo 03/22/2022 LVEF 60-65%. At [facility]. I reviewed the following labs and discussed with the patient. Lab Results Component Value Date CHOL 105 05/10/2021 CHOL 114 02/09/2019 CHOL 63 01/08/2015 POCCHOL 110 05/20/2022 POCCHOL 192 01/19/2022 POCCHOL 111 09/10/2021 Lab Results Component Value Date HDL 46 05/10/2021 HDL 39 (L) 02/09/2019 HDL 30 (L) 01/08/2015 POCHDL 36 05/20/2022 POCHDL 51 01/19/2022 POCHDL 58 09/10/2021 Lab Results Component Value Date LDLCALC 46 05/10/2021 LDLCALC 54 02/09/2019 LDL 17 01/08/2015 POCLDL 44 05/20/2022 POCLDL 100 01/19/2022 POCLDL 39 09/10/2021 Lab Results Component Value Date TRIG 65 05/10/2021 TRIG 103 02/09/2019 TRIG 79 01/08/2015 POCTRIG 146 05/20/2022 POCTRIG 208 01/19/2022 POCTRIG [...] TROPONINI Lab Results Component Value Date HGBA1C 10.3 05/20/2022 Lab Results Component Value Date WBC 7.5 04/20/2022 HGB 13.0 04/20/2022 HCT 41.5 04/20/2022 MCV 87.4 04/20/2022 LABPLAT 172 04/20/2022 Lab Results Component Value Date ALT 13 09/10/2021 AST 22 09/10/2021 ALKPHOS 46 09/10/2021 BILITOT 0.4 09/10/2021 Lab Results Component Value Date INR 1.8 (H) 05/19/2021 INR 1.48 (H) 01/07/2015 INR 2.4 (H) 01/07/2015 Assesment/Plan: 1. Chest pain ; Chest pain has resolved. She is asymptomatic. [...] Lower amlodipine ot 5 mg a day. 4. Dyslipidemia. She is on fenofibrate 160 [...] only. Low salt diet. RTc 4 M Please feel free to contact my office regarding her cardiac problems. Damien Norton MD shaft mechanic Cardiology Division [facility] documented in this encounter Plan of Treatment Not on file documented as of this encounter Visit Diagnoses Diagnosis Tricuspid valve disorder- Primary Tricuspid valve disorders, specified as nonrheumatic Nonrheumatic mitral valve regurgitation documented in this encounter Discontinued Medications Medication Sig Discontinue Reason Start Date End Da te furosemide (LASIX) 20 mg tablet Take 1 tablet by mouth (20 mg) one day and then 2 tablets by mouth (40 mg) alternating. Reorder 04/22/2022 09/23/2022 amLODIPine (NORVASC) 10 mg tablet Take 1 tablet by mouth once daily Reorder 07/08/2022 09/23/2022 documented as of this encounter Care Teams Triage Nurse Relationship Specialty Start Date End Date Mehul Verdugo MD [address] [facility] [address] [place] [address] PCP - General Internal Medicine 09/10/21 Paulette Geller MD [address] [place] [address] Consulting Physician Gastroenterology 05/22/21 documented as of this encounter
--- OUTSIDE RECORDS SUMMARY | 2024-02-28 15:34 | XMS_ITS | Encounter Summary ---
Author Organization [facility] Address [address] [place] [address] Care Team Providers Care Contact Manager Name Role Phone Paulette Geller MD Unavailable + Mehul Verdugo MD Primary Care Provider [phone] Reason for Visit * Reason Comments Diabetes Encounter Details Date Type Department Care Team (Latest Contact Info) Description 12/16/2022 11:00 AM CDT Clinical Support [facility] [address] [facility] [address] [facility] [place] [id number] Type 2 diabetes mellitus without complication, with long-term current use of insulin ([facility]/HCC) ([facility]) (Primary Dx) Social History Tobacco Use Types [...] on file 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 Gender Identity Female 06/15/2023 1:45 PM CDT Sexual Orientation Straight 06/15/2023 1: 45 PM CDT documented as of this encounter Last Filed Vital Signs Vital Sign Reading Time Taken Comments Blood Pressure 172/79 12/16/2022 3:23 PM CDT Pulse 66 12/16/2022 3:23 PM CDT Temperature - - Respiratory Rate - - Oxygen Saturation - - Inhaled Oxygen Concentration - - Weight - - Height - - Body Mass Index - - documented in this encounter Ordered Prescriptions Prescription Sig Dispense Quantity Refills Last Filled Start Date End Date lancets 30 gauge misc One Touch Delica Lancets - Use to test blood sugar 2 times per day.Diag code 11.9 100 each 3 12/16/2022 OneTouch Verio test strips strip Use to test blood sugar 2 times per day.Diag code 11.9 100 strip 3 12/16/2022 documented in this encounter Progress Notes * Silvana Fisher, RN - 12/16/2022 11:00 AM CDT Type of Visit [] Initial [x] Return Start Time:11 am End Time: 12 pm [x] Overview of Diabetes [] Type I [x] Type II [] IGT [] GDM [] Pre-Conception Training Pt here with for follow for first Dexcom G 7 sensor change. I saw then on 12-06 after she was seen by Garima Silva AIR EXPORT OPERATIONS AGENT for regular follow up. She had A1c > 15%. Garima started her on basal insulin and CGM. [facility] is seeing her. [x] Behavior [x] Psychosocial/Cultural [x] Support Systems [x] Readiness for Change [x] Lifestyle Practices [x] Self-Care Behaviors She was very quiet during visit. Her did most of the talking. He isoverwhelmed. He states her memory is getting worse and he having to handle things he has not had todo like cook and do the laundry. He also expressed stress with dealing with her insulin. He is not sure if he gave it to her today. I had asked him at the [facility] to have one of his daughter's call our office. He was to busy and did not contact them. I don't think they know the current situation. I spoke to Dr Verdugo and he said to reach out to the daughter. Mr Elizabeth gave me his daughter's number Azul. It is in our contact info I called [facility] for her to call the office. [x] Diet [x] Refer to Order Entry [] Given Patient Planning/Behavior Goals I went over with them today about trying to not over carb when she eats. They need to see RD. I was hoping to talk with the daughter to get them connected with Joanne. [x] Exercise [] Smoking Cessation [] Oral hypoglycemic agents: action and duration [] Med ___ She came in wheel chair but us up and about at home. [x] Injectables/Insulin [] Victoza [] Bydureon [] Trulicity [] Tanzeum [] Ozempic [] NPH [] Regular [] 70/30 [] 75/25 [] Humulin u500 [] Novolin 70/30 [] Humulin 70/30 [] Lantus / Basaglar / Toujeo / Levimir [] Soliqua [x] Tresiba [] Humalog / Novolog / Apidra / Fiasp / Admelog (U:carb) [] Care, storage, and use of pens [x] Site selection and rotation [x] Side Effects [x] Storage, Injection technique, and site rotation [] Type (Unit/Frequency) I asked how many units of Tresiba he had been giving her and he could not remember. He had contacted us on 12-08 and said he increased her to 16 units. Her bg was [address] Verdugo had me watch him deliver with and insulin pen to assess his ability and technique. He dialed and dosed 5 units of Fiasp to RUQ via pen without difficulty. Per Dr Verdugo he is to keep Tresiba 16 in am until we get bg data [x] Home Blood Glucose Monitoring [] Patient has SBGM [] Frequency of Testing: [] Frequency of Upload: [x] New Meter Given with Instruction [] Meter Type: I have her a new one touch verio and strips for back up if her sensor is not working. I instructed . Her bg was 350 on meter. I reviewed the reader and instructed him again on how to turn on and start new sensor, enter pairing code and start. He wrote the directions in his own handwriting in 4 steps. He was also give written instructions via new sensor pack. I gave them another sensor in case the CCS did not arrive beforenext change [x] Hypoglycemia [] Signs and symptoms reviewed [] Sample glucose tabs [] ID card [] Patient instructed to check BG prior ot driving [x] Hyperglycemia: signs, symptoms and treatment [] Ketoacidosis [] Signs and Symptoms [] Ketone Testing []Rx for Ketostix and parameters for use [] Use of glucagons emergency kit and prescription [] Sick days [] Flu Vaccine [] Pneumovax She has been symptomatic and incontinent the other day when she usually is not. [] Foot Care [] Instruction for Daily Foot Care [] Referral to Actuarial Mathematician [] Review of Eye, Travel, and Dental Care [x] Review of HgbA,C % [] Lipids: TC ___ LDL ___ HDL ___ Trig ___ []Review of long-term complications [] Most recent eye exam ___ [] Most recent microalbumin or 24 hour urine protein ___ A1c >15% CONCLUSIONS AND RECOMMENDATIONS Plan 1:Per Dr Verdugo continue Tresiba 16 am 2:Per Dr Verdugo give 5 units Fiasp now, delivered 3:Restart Dexcom G 7 to write down ac and hs bg's in bg log and call next week 4:Plan on review with daughter 5:Continue HHN Clinical Data: AADE7 Behaviors Saw a inclusion paraeducator [] Never [x] Last 6 Months [] Last Year [] Over a year ago []Don't know Saw a medical doctor [] Never [x] Last 6 Months [] Last Year [] Over a year ago []Don't know A stop smoking program [x] Never [] Last 6 Months [] Last Year [] Over a year ago []Don't know Result of stop-smoking program [] Quit and still not smoking [] Quit but started smoking again [] Never Quit A weight loss program [] Never [] Last 6 Months [] Last Year [] Over a year ago [x]Don't know Saw a dentist [] Never [] Last 6 Months [] Last Year [] Over a year ago [x]Don't know Saw a dietitian [] Never [] Last 6 Months [] Last Year [] Over a year ago [x]Don't know Had my eyes checked by an eye doctor [] Never [] Last 6 Months [] Last Year [] Over a year ago [x]Don't know Result given to you by the health care provider [] Normal []Abnormal [x] Don't Know Had my feet checked by a health care provider [] Never [] Last 6 Months [] Last Year [] Over a yearago [x]Don't know Result given to you by the health care provider [] Normal []Abnormal [x] Don't Know Had my cholesterol checked [] Never [] Last 6 Months [] Last Year [] Over a year ago [x]Don't know Results: Total Results: HDL Results: LDL Had my blood pressure checked [] Never [x] Last 6 Months [] Last Year [] Over a year ago []Don't know Result given to you by the health care provider / Had an A1C Test [] Never [x] Last 6 Months [] Last Year [] Over a year ago []Don't know Had my urine checked for protein [] Never [] Last 6 Months [] Last Year [] Over a year ago [x]Don'tknow Had a flu vaccine [] Never [] Last 6 Months [] Last Year [] Over a year ago [x]Don't know Had a pneumonia vaccine [] Never [] Last 6 Months [] Last Year [] Over a year ago [x]Don't know Had a physical exam [] Never [] Last 6 Months [] Last Year [] Over a year ago [x]Don't know Result given to you by the health care provider [] Normal []Abnormal [x] Don't Know Had psychosocial counseling [] Never [] Last 6 Months [] Last Year [] Over a year ago [x]Don't know Had a stress test [] Never [] Last 6 Months [] Last Year [] Over a year ago [x]Don't know Had my triglycerides checked [] Never [x] Last 6 Months [] Last Year [] Over a year ago []Don't know documented in this encounter Plan of Treatment Not on file documented as of this encounter Visit Diagnoses Diagnosis Type 2 diabetes mellitus without complication, with long-term current use of insulin (CMS/HCC) (HCC)- Primary documented in this encounter Discontinued Medications Medication Sig Discontinue Reason Start Date End Da te blood glucose diagnostic (glucose blood) strip Use to test blood sugar once daily DX: E11.9 non insulin dependent (True Metrix) 06/16/2021 12/16/2022 lancets 33 gauge misc Use to test blood sugar once daily DX: E11.9 non insulin dependent. 06/16/2021 12/16/2022 documented as of this encounter Care Teams Contact Manager Relationship Specialty Start Date End Date Mehul Verdugo MD [address] [facility] [address] [place] [address] PCP - General Internal Medicine 09/10/21 Paulette Geller MD [address] [place] [address] Consulting Physician Gastroenterology 05/22/21 documented as of this encounter
--- OUTSIDE RECORDS SUMMARY | 2024-02-28 15:34 | XMS_ITS | Encounter Summary ---
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 The patient is under my care, and I have authorized serviceson this plan of care and will periodically review the plan. The patient had a [id number] encounter with Mehul Verdugo MD on 12/06/2022 and the encounter was related to the primary reason for home health care. documented in this encounter Plan of Treatment Not on file documented as of this encounter Visit Diagnoses Not on filedocumented in this encounter Care Teams Timber Sprinkler Relationship Specialty Start Date End Date Mehul Verdugo MD [address] [facility] [address] [place] [address] PCP - General Internal Medicine 09/10/21 Paulette Geller MD [address] [place] [address] Consulting Physician Gastroenterology 05/22/21 documented as of this encounter
--- OUTSIDE RECORDS SUMMARY | 2024-02-28 15:34 | XMS_ITS | Encounter Summary ---
Author Organization [facility] Address [address] [place] [address] Care Team Providers Care Decontaminator Name Role Phone Paulette Geller MD Unavailable + Mehul Verdugo MD Primary Care Provider [phone] Reason for Referral * Consultation (Routine) - Closed Specialty Diagnoses / Procedures Referred By Contelmer t Referred To Contact Diabetes and Nutrition Services Diagnoses Type 2 diabetes mellitus without complication, without long-term current use of insulin (CMS/HCC) (HCC) Garima Silva, RAIL CAR REPAIRER [address] [facility] [address] [place] [address] Phone: tel: fax: Silvana Fisher, RN [address] [place] [address] Phone: tel: fax: Referral ID Status Reason Start Date Expiration Date V isits Requested Visits Authorized [id number] Closed Specialty Services Required 12/06/2022 01/05/2024 10 10 Question Answer AMBREFDIABNUTMEDI Yes Service requested Diabetes Self-Management Education/Training (DSMT) Diabetes Self-Management Education/Training (DSMT) Hours of Treatment Follow-up DSME/T: 2 hours (either group or individual) DNCNRFR All 10 DSMT content areas as appropriate, Continuous Glucose Monitoring, Medications, Monitoring diabetes, Diabetes as disease process, Goal Setting and Problem Solving Reason for Referral Hyperglycemia [id number] None Complications/Comorbidities (Check all that apply): None Please select the performing region: [facility] [[id number]] Please select the performing department: [facility] [address] [[id number]] To provider: SILVANA FISHER [[id number]] # of visits: 10 Reason for Visit * Reason Comments Follow-up Encounter Details Date Type Department Care Team (Late st Contact Info) Description 12/06/2022 11:00 AM CDT Office Visit [facility] [address] [facility] [address] [place] [address] Garima Silva NP [address] [facility] [address] [place] [address] Type 2 diabetes mellitus without complication, without long-term current use of insulin (CMS/HCC) (HCC) (Primary Dx); HTN (hypertension), benign; Dyslipidemia; Chronic diastolic heart failure (HCC) Social History [...] on file 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 Gender Identity Female 06/15/2023 1:45 PM CDT Sexual Orientation Straight 06/15/2023 1: 45 PM CDT documented as of this encounter Last Filed Vital Signs Vital Sign Reading Time Taken Comments Blood Pressure 122/80 12/06/2022 11:09 AM CDT Pulse 70 12/06/2022 11:09 AM CDT Temperature - - Respiratory Rate - - Oxygen Saturation 95% 12/06/2022 11:09 AM CDT Inhaled Oxygen Concentration - - Weight 66.7 kg (147 lb) 12/06/2022 11:09 AM CDT Height 154.9 cm (5' 1 ) 12/06/2022 11:09 AM CDT Body Mass Index 27.78 12/06/2022 11:09 AM CDT documented in this encounter Ordered Prescriptions Prescription Sig Dispense Quantity Refills Last Filled Start Date End Date pen needle, diabetic 31 gauge x 5/16 needle Use to inject 1-4 times daily as directed. 100 each 4 12/06/2022 insulin degludec (TRESIBA) 100 unit/mL (3 mL) pen for injectionIndicatio ns:type 2 diabetes mellitus [The details of the medication are not available because there are pending changes by a home health clinician.] 15 mL 1 12/06/2022 3 documented in this encounter Progress Notes * Garima Silva, PRASHANTH - 12/06/2022 11:00 AM CDT Office Visit Yuliana Johnson is a 82 y.o. female here for Follow-up HPI Patient is here to f/u DM, HLD, HTN. She feels well overall. Denies CP, SOB, Palpitations, or Dizziness. HLD Fenofibrate 160 mg once daily Pravastatin 40 mg once daily LDL 92 (10/28/2022) HTN Losartan 100 mg once daily Carvedilol 25 mg BID Amlodipine 5 mg once daily. H/O mitral and tricuspid valve repair. She is on Eliquis. DM Metformin 500 mg BID - her is not sure if she has been taking this. Last A1c 10.3% --- Today >15% She does not watch her diet. She has not been checking her BG levels at home. BG 330 today - given 5 units of Fiasp today while seeing Jacquie (Datastage Architect). H/O chronic diastolic heart failure and follows [...] Disp: 12 tablet, Rfl: 1 amLODIPine (NORVASC) 5 mg tablet, Take 1 tablet (5 mg total) by mouth daily, Disp: 90 tablet, Rfl: 3 aspirin 81 mg enteric coated tablet, Take by mouth, Disp: , Rfl: blood glucose diagnostic (glucose blood) strip, Use to test blood sugar once daily DX: E11.9 non insulin dependent (True Metrix), Disp: 100 each, Rfl: 11 blood-glucose meter (True Metrix Glucose Meter) [facility], Use to test blood sugar once daily DX: E11.9 non insulin dependent, Disp: 1 each, Rfl: 0 carvediloL (COREG) 25 mg tablet, Take 1 tablet by mouth twice daily, Disp: 180 tablet, Rfl: 3 clopidogreL (PLAVIX) 75 mg tablet, Take 1 [...] mg) alternating., Disp: 90 tablet, Rfl: 3 lancets 33 gauge [facility], Use to test blood sugar once daily DX: E11.9 non insulin dependent., Disp: 100 each, Rfl: 11 levETIRAcetam (KEPPRA) 500 mg tablet, Take 1 [...] mouth once daily, Disp: 90 tablet, Rfl: 1 tiotropium bromide (SPIRIVA RESPIMAT) 2.5 mcg/actuation inhaler, Inhale 2 puffs daily, Disp: 70 mcgof tiotropium, Rfl: 2 zolpidem (AMBIEN) 5 mg tablet, TAKE 1 TABLET BY MOUTH NIGHTLY NEEDED FOR SLEEP, Disp: 30 tablet,Rfl: 0 insulin degludec (TRESIBA) 100 unit/mL (3 mL) pen for injection, Inject 0.1 mL (10 Units total) under the skin daily, Disp: 15 mL, Rfl: 1 pen needle, diabetic 31 gauge x 5/16 needle, Use to inject 1-4 times daily as directed., Disp: 100each, Rfl: 4 Allergies No Known Allergies Past Medical and [...] and nausea. Genitourinary: Negative for dysuria. Musculoskeletal: Negative for gait problem. Skin: Negative for rash. Neurological: Negative for seizures and headaches. Psychiatric/Behavioral: Negative for sleep disturbance. Physical Exam Physical Exam Constitutional: Appearance: Normal appearance. She is normal weight. She is not ill-appearing. HENT: Head: Normocephalic. Right Ear: External ear normal. Left Ear: External ear normal. Nose: Nose normal. Mouth/Throat: Mouth: Mucous membranes are moist. Pharynx: Oropharynx is clear. Eyes: Pupils: Pupils are equal, round, and reactive [...] of motion. Cervical back: Normal range of motion. Skin: General: Skin is warm and dry. Capillary Refill: Capillary refill takes less than 2 seconds. Findings: No lesion or rash. Neurological: General: No focal deficit present. Mental Status: She is alert and oriented to person, place, and time. Cranial Nerves: No cranial nerve deficit. Gait: Gait normal. Psychiatric: Mood and Affect: Mood normal. Behavior: Behavior normal. Thought Content: Thought content normal. Judgment: Judgment normal. Vitals BP 122/80 (BP Location: Right arm, Patient Position: Sitting) Pulse 70 Ht 154.9 cm (5' 1 ) Wt 66.7 kg (147 lb) SpO2 95% BMI 27.78 kg/m?? Wt Readings from Last 3 Encounters: 12/06/22 66.7 kg (147 lb) 09/23/22 68 kg (150 lb) 05/20/22 67.6 kg (149 lb) Body mass index is 27.78 kg/m??. Assessment and Plan Diagnoses and all orders for this visit: Type 2 diabetes mellitus without complication, without long-term current use of insulin ([facility]) ([facility]) (Primary) Comments: HA1c >15% today. She needs insulin. Will start Tresiba 10 units once daily. Will start CGM today. [facility] Orders: - POCT hemoglobin A1c - Ambulatory referral to Diabetic Education & Nutrition Services; Future HTN (hypertension), benign Comments: BP at target. Continue Losartan, Carvedilol, and Amlodipine. Dyslipidemia Comments: Last LDL was 92. Continue Pravastatin and Fenofibrate. Chronic diastolic heart failure (HCC) Comments: Follows with Dr. Madrid - Cardiology Other orders - insulin degludec (TRESIBA) 100 unit/mL (3 mL) pen for injection; Inject 0.1 mL (10 Units total) under the skin daily - pen needle, diabetic 31 gauge x 5/16 needle; Use to inject 1-4 times daily as directed. Recommendations and Follow up Return in about 1 month (around 01/06/2023) for Recheck. Garima Silva NP documented in this encounter Miscellaneous Notes * Addendum Note - Garima Silva NP - 12/06/2022 11:00 AM CDTAddended by: GARIMA SILVA on: 12/06/2022 04:11 PM Modules accepted: Orders documented in this encounter Plan of Treatment Scheduled Referrals Name Type Priority Associated Diagnoses Order Schedule Ambulatory referral to Diabetic Education & Nutrition Services Outpatient Referral Routine Type 2 diabetes mellitus without complication, without long-term current use of insulin (CMS/HCC) (HCC) Expected: 12/20/2022 (Approximate), Expires: 12/07/2023 documented as of this encounter Procedures Procedure Name Priority Date/Time Associated Diagnosis Comments POCT HEMOGLOBIN A1C Routine 12/06/2022 1 1:35 AM CDT Type 2 diabetes mellitus without complication, without long-term current use of insulin (CMS/HCC) ([facility]) documented in this encounter Results * (ABNORMAL) POCT hemoglobin A1c (12/06/2022 11:35 AM CDT) Hemoglobin A1C, POC >15 % Capillary blood 12/06/2022 1 1:35 AM CDT Garima Silva NP POINT OF CARE TEST ORDERABLES Final Result documented in this encounter Visit Diagnoses Diagnosis Type 2 diabetes mellitus without complication, without long-term current use of insulin (CMS/HCC) (HCC)- Primary HTN (hypertension), benign Essential hypertension, benign Dyslipidemia Other and unspecified hyperlipidemia Chronic diastolic heart failure (HCC) Chronic diastolic heart failure documented in this encounter Care Teams Decontaminator Relationship Specialty Start Date End Date Mehul Verdugo MD [address] [facility] [address] [place] [address] PCP - General Internal Medicine 09/10/21 Paulette Geller MD [facility] [address] [place] [address] Consulting Physician Gastroenterology 05/22/21 documented as of this encounter
--- OUTSIDE RECORDS SUMMARY | 2024-02-28 15:34 | XMS_ITS | Encounter Summary ---
Author Organization [facility] Address [address] [place] [address] Care Team Providers Care Pump Technician Name Role Phone Paulette Geller MD Unavailable + Mehul Verdugo MD Primary Care Provider [phone] Encounter Details Date Type Department Care Team (Late st Contact Info) Description 12/15/2022 [facility] [address] [facility] [address] [place] [address] Mehul Verdugo MD [address] [facility] [address] [place] [address] Social History Tobacco Use Types [...] on file 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 I have no openings for today. I will see them tomorrow as scheduled. Yuliana used to check her blood sugars when she was seeing dr Chambers, I asked nurse to question them again. I will give her a new meter tomorrow. * Telephone Encounter - No Franz - 12/15/2022 9:28 AM CDT Bradley with [facility] home health care calling. She is with patient now and went to look at patient's dexcom and patient had 2 on. One was old and she removed this. The other fell out. They do not have any other replacements. Patient is scheduled for an appointment with you tomorrow but unsure what they are to do in the meantime. It is noted that patient had a hand held monitor and was checking blood sugars prior to dexcom but patient's is stating that they do not have any monitor and only knew her sugar was high because of her A1C. Bradley is also requesting more nursing visits. 2 alf visits for 1 weeks and then 1 alf visit for 4 weeks. documented in this encounter Plan of Treatment Not on file documented as of this encounter Visit Diagnoses Not on filedocumented in this encounter Care Teams Pump Technician Relationship Specialty Start Date End Date Mehul Verdugo MD [address] [facility] [address] [place] [address] PCP - General Internal Medicine 09/10/21 Paulette Geller MD [address] [place] [address] Consulting Physician Gastroenterology 05/22/21 documented as of this encounter
--- OUTSIDE RECORDS SUMMARY | 2024-02-28 15:34 | XMS_ITS | Encounter Summary ---
Author Organization [facility] Healthcare Address [address] [place] [address] Care Team Providers Care Sub Master Name Role Phone Paulette Geller MD Unavailable + Mehul Verdugo MD Primary Care Provider [phone] Encounter Details Date Type Department Care Team (Late st Contact Info) Description 04/20/2022 12:00 PM RADIO INSTALLER AUTOMOBILE Lab 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 Gender Identity Female 06/15/2023 1:45 PM CDT Sexual Orientation Straight 06/15/2023 1: 45 PM CDT documented as of this encounter Plan of Treatment Not on file documented as of this encounter Procedures Procedure Name Priority Date/Time Associated Diagnosis Comments EGFR Routine 04/20/2022 12:04 PM RADIO INSTALLER AUTOMOBILE Nonrheumatic mitral valve regurgitation DIFFERENTIAL AUTO Routine 04/20/2022 12: 04 PM RADIO INSTALLER AUTOMOBILE Nonrheumatic mitral valve regurgitation PRO B-TYPE NATRIURETIC PEPTIDE Routine 04/20/2022 12:04 PM RADIO INSTALLER AUTOMOBILE Nonrheumatic mitral valve regurgitation CBC WITH AUTO DIFFERENTIAL Routine 04/20/2022 12:04 PM RADIO INSTALLER AUTOMOBILE Nonrheumatic mitral valve regurgitation BASIC METABOLIC PANEL Routine 04/20/2022 12:04 PM RADIO INSTALLER AUTOMOBILE Nonrheumatic mitral valve regurgitation documented in this encounter Results * (ABNORMAL) eGFR (04/20/2022 12:04 PM RADIO INSTALLER AUTOMOBILE) eGFR 42(L) 90 - 130 mL/min/1. 73 m2 [facility] Comment: Interpretive [...] interpretive data was last reviewed 2020. Blood 04/20/2022 12:0 4 PM RADIO INSTALLER AUTOMOBILE 04/20/2022 1:57 PM RADIO INSTALLER AUTOMOBILE us Sp Madrid MD LAB BLOOD ORDERABLES Final Res ult [facility] [place] [address] * Differential, auto (04/20/2022 12:04 PM RADIO INSTALLER AUTOMOBILE) Neutrophil abs 5.1 1.7 - 6.5 K/cumm [facility] Imm gran abs 0.0 0.0 - 0.1 K/cumm [facility] Lymphocyte abs 1.7 0.8 - 3.3 K/cumm [facility] Monocyte abs 0.5 0.2 - 0.8 K/cumm [facility] Eosinophil abs 0.1 0.0 - 0.5 K/cumm [facility] Basophil abs 0.1 0.0 - 0.1 K/cumm [facility] Neutrophil pct 67.9 % [facility] Comment: Interpretive Data Percent cell count reference ranges are not reported, since discordance with absolute values may lead to misinterpretation of CBC data. Current Interpretive Data was last revised on 2017. Imm gran pct 0.3 % [facility] Comment: Interpretive Data Percent cell count reference ranges are not reported, since discordance with absolute values may lead to misinterpretation of CBC data. Current Interpretive Data was last revised on 2017. Lymphocyte pct 23.3 % [facility] Comment: Interpretive Data Percent cell count reference ranges are not reported, since discordance with absolute values may lead to misinterpretation of CBC data. Current Interpretive Data was last revised on 2017. Monocyte pct 6.1 % [facility] Comment: Interpretive Data Percent cell count reference ranges are not reported, since discordance with absolute values may lead to misinterpretation of CBC data. Current Interpretive Data was last revised on 2017. Eosinophil pct 1.3 % [facility] Comment: Interpretive Data Percent cell count reference ranges are not reported, since discordance with absolute values may lead to misinterpretation of CBC data. Current Interpretive Data was last revised on 2017. Basophil pct 1.1 % [facility] Comment: Interpretive Data Percent cell count reference ranges are not reported, since discordance with absolute values may lead to misinterpretation of CBC data. Current Interpretive Data was last revised on 2017. Blood 04/20/2022 12:0 4 PM RADIO INSTALLER AUTOMOBILE 04/20/2022 1:47 PM RADIO INSTALLER AUTOMOBILE us Sp Madrid MD LAB BLOOD ORDERABLES Final Res ult [facility] Department [place] [address] * (ABNORMAL) Basic metabolic panel (04/20/2022 12:04 PM RADIO INSTALLER AUTOMOBILE) Sodium 137 135 - 145 mmol/L [facility] Potassium, pl 5.1(H) 3.3 - 4.9 mmol/L [facility] Chloride 100 97 - 110 mmol/L [facility] CO2 28 22 - 32 mmol/L [facility] Anion gap 9 2 - 15 mmol/L [facility] BUN 25 8 - 25 mg/dL [facility] Creatinine 1.26(H) 0.60 - 1.10 mg/dL [facility] Glucose 338(H) 70 - 199 mg/dL [facility] Comment: Interpretive Data Fasting glucose >/= [...] 2022. Calcium 9.4 8.5 - 10.3 mg/dL [facility] Blood 04/20/2022 12:0 4 PM RADIO INSTALLER AUTOMOBILE 04/20/2022 1:47 PM RADIO INSTALLER AUTOMOBILE us Sp Madrid MD LAB BLOOD ORDERABLES Final Res ult Performing Organization Address [facility] Co de Phone Number [facility] Department [place] [address] * (ABNORMAL) CBC with auto differential (04/20/2022 12:04 PM RADIO INSTALLER AUTOMOBILE) WBC 7.5 3.8 - 9.9 K/cumm [facility] Hgb 13.0 11.9 - 15.5 g/dL [facility] Hct 41.5 35.6 - 45.5 % [facility] Plt 172 150 - 400 K/cumm [facility] MPV 12.4(H) 9.1 - 12.3 fL [facility] RBC 4.75 3.90 - 5.20 M/cumm [facility] MCV 87.4 81.3 - 96.4 fL [facility] MCH 27.4 27.1 - 33.3 pg [facility] MCHC 31.3(L) 32.3 - 35.7 g/dL [facility] RDW CV 12.9 11.1 - 14.9 % [facility] RDW SD 41.0 35.7 - 48.1 fL [facility] NRBC abs 0.00 0.00 - 0.01 K/cumm [facility] Blood 04/20/2022 12:0 4 PM RADIO INSTALLER AUTOMOBILE 04/20/2022 1:47 PM RADIO INSTALLER AUTOMOBILE us Sp Madrid MD LAB BLOOD ORDERABLES Final Res ult Performing Organization Address City/[facility]/ZIP Co de Phone Number [facility] Department [place] [address] * (ABNORMAL) Pro B-type natriuretic peptide (04/20/2022 12:04 PM RADIO INSTALLER AUTOMOBILE) NT-proBNP 810(H) <=450 pg/mL [facility] Comment: Interpretive Comments: A. Dyspnea in Acute [...] et.al. Eur Heart J. 2006:27:330-337. 2. Dayana GARCES, Ralph MORGAN. J. AM Gus Cardiol: Cardiovasc Imag. 2009;2: 216- 225. Interpretive Data Last Revised Date: 2017. Blood 04/20/2022 12:0 4 PM RADIO INSTALLER AUTOMOBILE 04/20/2022 1:47 PM RADIO INSTALLER AUTOMOBILE us Sp Madrid MD LAB BLOOD ORDERABLES Final Res ult [facility] Department [place] [address] documented in this encounter Visit Diagnoses Diagnosis Nonrheumatic mitral valve regurgitation documented in this encounter Care Teams Sub Master Relationship Specialty [place] [address] [place] [address] [address] [place] [address] PCP - General Internal Medicine 09/10/21 Paulette Geller MD [address] [place] [address] Consulting Physician Gastroenterology 05/22/21 documented as of this encounter
--- OUTSIDE RECORDS SUMMARY | 2024-02-28 15:34 | XMS_ITS | Encounter Summary ---
Author Organization [facility] Address [address] [place] [address] Care Team Providers Care Cargo Broker Name Role Phone Paulette Geller MD Unavailable + Mehul Verdugo MD Primary Care Provider [phone] Reason for Referral * Consultation (Routine) - Closed Specialty Diagnoses / Procedures Referred By Contac t Referred To Contact Diabetes and Nutrition Services Diagnoses Type 2 diabetes mellitus without complication, without long-term current use of insulin (CMS/HCC) (HCC) Mehul Verdugo MD [address] [facility] [address] [place] [address] Phone: tel: fax: Silvana Fisher, RN [address] [place] [address] Phone: tel: fax: Referral ID Status Reason Start Date Expiration Date V isits Requested Visits Authorized [id number] Closed Specialty Services Required 12/06/2022 01/05/2024 10 10 Question Answer [id number] Yes Service requested Diabetes Self-Management Education/Training (DSMT) Diabetes Self-Management Education/Training (DSMT) Hours of Treatment Follow-up DSME/T: 2 hours (either group or individual) DNCNRFR All 10 DSMT content areas as appropriate, Continuous Glucose Monitoring, Medications Reason for Referral Hyperglycemia [id number] Cognitive Impairment Complications/Comorbidities (Check all that apply): CHD Please select the performing region: [facility] [170] Please select the performing department: [facility] [address] [[id number]] To provider: SILVANA FISHER [[id number]] # of visits: 10 Reason for Visit * Reason Comments Diabetes * Consultation (Routine) - Closed Specialty Diagnoses / Procedures Referred By Contac t Referred To Contact Diabetes and Nutrition Services Diagnoses Type 2 diabetes mellitus without complication, without long-term current use of insulin (CMS/HCC) ([facility]) Garima Silva NP [address] [facility] [address] [place] [address] Phone: tel: fax: Silvana Fisher, RN [address] [place] [address] Phone: tel: fax: Referral ID Status Reason Start Date Expiration Date V isits Requested Visits Authorized [id number] Closed Specialty Services Required 12/06/2022 01/05/2024 10 10 Encounter Details Date Type Department Care Team (Latest Contact Info) Description 12/06/2022 12:00 PM CDT Clinical Support [facility] [address] [place] [address] [address] [place] [address] Type 2 diabetes mellitus without complication, without long-term current use of insulin (CMS/HCC) ([facility]) (Primary Dx); Type 2 diabetes mellitus without complication, with long-term current use of insulin (CMS/HCC) (HCC); Type 2 diabetes mellitus without complication, without long-term current use of insulin (CMS/HCC) ([facility]) Social History Tobacco Use Types Packs/Day Years [...] on file 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 Her A1c today is >15%. Garima questioned pt and regarding her meds. She is not sure if she is taking Metformin. Her said he just gives her a bunch of pills everyday. They could not recall if she has been taking her Metformin. Garima is starting her on Tresiba 10 units in am and Dexcom G 7 since I have a reader. [x] Behavior [x] Psychosocial/Cultural [x] Support Systems [x] Readiness for Change [x] Lifestyle Practices [x] Self-Care Behaviors They are 57 yrs. Yesterday was her birthday and they had a big family get together with their 4 children. They have 2 boys and 2 girls, one daughter is RN. Pt has definite memory difficulty. Garima is ordering Home Health to do follow up after today s visit. Pt and could not tell me how long she has had DM [] Diet [] Refer to Biology Internship [] Given Patient Planning/Behavior Goals She will need follow up after HHN see's patient. [] Exercise [] Smoking Cessation [x] Oral hypoglycemic agents: action and duration [] Med ___ Her chart note states she is on Metformin, but and patient could not recall her meds. She is to stop the Metformin [x] Injectables/Insulin [] Victoza [] Bydureon [] Trulicity [] Tanzeum [] Ozempic [] NPH [] Regular [] 70/30 [] 75/25 [] Humulin u500 [] Novolin 70/30 [] Humulin 70/30 [] Lantus / Basaglar / Toujeo / Levimir [] Soliqua [x] Tresiba [] Humalog / Novolog / Apidra / Fiasp / Admelog (U:carb) [x] Care, storage, and use of pens [x] Site selection and rotation [x] Side Effects [x] Storage, Injection technique, and site rotation [] Type (Unit/Frequency) Garima had me start her on Tresiba 10 units in am. I instructed her who will be giving her theinsulin on care and priming of pen and site selection and rotation. He was able to inject her in her abd RUQ. I have given simple (visual) step by step directions and also wrote out daily plan and reviewed with her . I asked that he have to HHN and their daughter call Garima or myself. Due to bg of 340 Garima had me give her Fiasp 5 units before leaving. [x] Home Blood Glucose Monitoring [] Patient has SBGM [] Frequency of Testing: [] Frequency of Upload: [] New Meter Given with Instruction [] Meter Type: She states she does not have a meter. In old notes she had been checking her blood sugars. I started her on Dexcom G 7 with reader.I plan on having the HHN or daughter do first change. Her is to write down the sensor glucose pre meal and hs on BG record sheet and call in 3 days. Her BG alarmed at 340 with 2 trending arrows up. [x] Hypoglycemia [] Signs and symptoms reviewed [] Sample glucose tabs [] ID card [] Patient instructed to check BG prior ot driving [x] Hyperglycemia: signs, symptoms and treatment [] Ketoacidosis [] Signs and Symptoms [] Ketone Testing []Rx for Ketostix and parameters for use [] Use of glucagons emergency kit and prescription [] Sick days [] Flu Vaccine [] Pneumovax [] Foot Care [] Instruction for Daily Foot Care [] Referral to Insurance Sales Representative [] Review of Eye, Travel, and Dental Care [x] Review of HgbA,C % [] Lipids: TC ___ LDL ___ HDL ___ Trig ___ []Review of long-term complications [] Most recent eye exam ___ [] Most recent microalbumin or 24 hour urine protein ___ A1c > 15% CONCLUSIONS AND RECOMMENDATIONS Plan 1: Per Garima Silva FLORIST'S DECORATOR stop Metformin 2:Per aGrima Silva FLORIST'S DECORATOR give 5 units of Fiasp now for bg of 340 3:Per Garima start Tresiba 10 units in am, first dose given by 4:Start Dexcom G 7 write down pre meal and hs bg's call in 3 days 5:Order N faith Clinical Data: AADE7 Behaviors Saw a community health educator [] Never [] Last 6 Months [] Last Year [] Over a year ago [x]Don't know Saw a medical doctor [] Never [x] Last 6 Months [] Last Year [] Over a year ago []Don't know A stop smoking program [] Never [] Last 6 Months [] Last Year [] Over a year ago [x]Don't know Result of stop-smoking program [] Quit [...] the health care provider [] Normal []Abnormal [] Don't Know Had my cholesterol checked [] Never [] Last 6 Months [x] Last Year [] Over a year ago []Don't know Results: Total Results: HDL Results: LDL [...] my urine checked for protein [] Never [x] Last 6 Months [] Last Year [] Over a year ago []Don'tknow Had a flu vaccine [] Never [] [...] Expires: 12/07/2023 documented as of this encounter Visit Diagnoses Diagnosis Type 2 diabetes mellitus without complication, without long-term current use of insulin (CMS/HCC) (HCC)- Primary Type 2 diabetes mellitus without complication, without long-term current use of insulin (CMS/HCC) (HCC) Type 2 diabetes mellitus without complication, with long-term current use of insulin (CMS/HCC) (HCC) documented in this encounter Orders Outpatient Referral Count Last Ordered Date st Ordered Date AMB REFERRAL TO [facility] 1 12/08/2022 documented in this encounter Care Teams Cargo Broker Relationship Specialty Start Date End Date Mehul Verdugo MD [address] [facility] [address] [place] [address] PCP - General Internal Medicine 09/10/21 Paulette Geller MD [address] [place] [address] Consulting Physician Gastroenterology 05/22/21 documented as of this encounter
--- OUTSIDE RECORDS SUMMARY | 2024-02-28 15:34 | XMS_ITS | Encounter Summary ---
Author Organization [facility] Address [address] [place] [address] Care Team Providers Care Transfer Clerk Name Role Phone Paulette Geller MD Unavailable + Mehul Verdugo MD Primary Care Provider [phone] Reason for Visit * Reason Onset Date Comments Spoke With Home Health Provider 12/09/2022 Encounter Details Date Type Department Care Team (Late st Contact Info) Description 12/09/2022 [facility] [address] [facility] [address] [place] [id number] Mehul Verdugo MD [address] [facility] [address] [place] [address] Spoke With Home Health Provider Social History Tobacco Use Types Packs/Day Years [...] on file 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 * Telephone Encounter - No Franz - 12/09/2022 1:42 PM CDT Chante with [facility] homehealth care calling the received the referral over however their first opening to see patient is 12/15. Is this okay? CB [id number] documented in this encounter Plan of Treatment Not on file documented as of this encounter Visit Diagnoses Not on filedocumented in this encounter Care Teams Transfer Clerk Relationship Specialty Start Date End Date Mehul Verdugo MD [address] [facility] [address] [place] [address] PCP - General Internal Medicine 09/10/21 Paulette Geller MD [address] [place] [address] Consulting Physician Gastroenterology 05/22/21 documented as of this encounter
--- OUTSIDE RECORDS SUMMARY | 2024-02-28 15:34 | XMS_ITS | Encounter Summary ---
Author Organization [facility] Healthcare Address [address] [place] [address] Care Team Providers Care Business Test Analyst Name Role Phone Paulette Geller MD Unavailable + Mehul Verdugo MD Primary Care Provider [phone] Reason for Visit * Auth/Cert (Routine) Specialty Diagnoses / Procedures Referred By Cata t Referred To Contact Referral ID Status Reason Start Date Expiration Date Visits Re quested Visits Authorized [id number] 1 60 Encounter Details Date Type Department Care Team (Late st Contact Info) Description 12/23/2022 2:00 PM CDT Home Care Visit [facility] [address] [address] [address] [place] [address] Celine Plata, RN SN HOME VISIT Social History Tobacco Use [...] on file 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 Gender Identity Female 06/15/2023 1:45 PM CDT Sexual Orientation Straight 06/15/2023 1: 45 PM CDT documented as of this encounter Last Filed Vital Signs Vital Sign Reading Time Taken Comments Blood Pressure 132/74 12/23/2022 2:35 PM CDT Pulse 70 12/23/2022 2:35 PM CDT Temperature 36 ??C (96.8 ??F) 12/23/2022 2:35 PM CDT Respiratory Rate 18 12/23/2022 2:35 PM CDT Oxygen Saturation 96% 12/23/2022 2:35 PM CDT Inhaled Oxygen Concentration - - Weight - - Height - - Body Mass Index - - documented in this encounter Miscellaneous Notes * Home Health Plan for Next Visit - Celine Plata RN - 12/23/2022 2:35 PM CDT Reason for today's visit Reviewed medications and Diabetic education Discuss plan of care patient and spouse Discharge planning progressing Plan for next visit continue education and assessment, Bring Dior book and review information documented in this encounter Plan of Treatment Not on file documented as of this encounter Visit Diagnoses Not on filedocumented in this encounter Home Health Visit - Care Plan Visit Details Visit Type -SN Home Visit Discipline -Senior Living Problems Problem Description Start Date Status Goals Interve ntions Homebound Status Disciplines: Skilled Disciplines Patient's homebound status 12/15/2022 Active 1 goal linked to scheduled/documen soraida intervention 1 goal intervention scheduled/documen soraida in this visit Monitor patient's vital signs every home health visit Disciplines: SN, PT, OT, LEAD BUSINESS ANALYST, ATTIC BLOWER, Skilled Disciplines Monitor patient's vital signs every [...] visit Disease Management - Diabetes Disciplines: Senior Living Management of diabetes symptoms 12/15/2022 Active 1 goal linked to scheduled/documen soraida intervention 3 goal interventions scheduled/documen soraida in this visit Learning/Teachin g Needs - Diabetes Disciplines: Senior Living Learning and teaching needs associated with diagnosis [...] visit during episode of care Description: Home director river restoration to measure vital signs during every home [...] Diabetes Goal:Demonstrate adequate knowledge of Diabetes Completed Patient and Caregiver instructed on diabetic diet and fluid restrictions/requir ements. Patient and Caregiver verbalize knowledge of nutritional requirements. Instruct sick day Description: Instruct patient/caregiver in [...] Completed documented in this encounter Care Teams Business Test Analyst Relationship Specialty Start Date End Date Mehul Verdugo MD [address] [facility] [address] [place] [address] PCP - General Internal Medicine 09/10/21 Paulette Geller MD [facility] [address] [place] [address] Consulting Physician Gastroenterology 05/22/21 documented as of this encounter
--- OUTSIDE RECORDS SUMMARY | 2024-02-28 15:34 | XMS_ITS | Encounter Summary ---
Author Organization [facility] Address [address] [place] [address] Care Team Providers Care Rod Mill Tender Name Role Phone Paulette Geller MD Unavailable + Mehul Verdugo MD Primary Care Provider [phone] Reason for Visit * Reason Onset Date Comments Blood Sugar Problem 12/08/2022 Encounter Details Date Type Department Care Team (Late st Contact Info) Description 12/08/2022 [facility] [address] [facility] [address] [place] [address] Mehul Verdugo MD [address] [facility] [address] [place] [address] Blood Sugar Problem Social History [...] on file 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 He is doing the best he can and I think handling thing better than I expected. When I saw them the other day I explained that carbs are going to make her bg rise and that theyshould eat 3 meals but lower carb. I was hoping [facility] would be out, they have not heard from them yet. He verbalized understanding and has been trying to keep carbs low. She gets up at night and eats. He cannot control that. He will increase tonight to 22 on Tresiba and call me Tuesday am. I told him that she may need another increase before the weekend. I scheduled them with me next to do her first dexcom change. fyi * Telephone Encounter - No Franz - 12/08/2022 8:09 AM CDT Patient's spouse, Pedrito calling in. Stated that for the last 16 hours patient's blood sugar has been running between 325-400. The morning about 7:45 patient's blood sugar was 393 by finger stick. Hegave patient 16 units of Tresiba instead of the 10 units prescribed at her last office visit last night because she was running high and he didn't know what else to do. documented in this encounter Plan of Treatment Not on file documented as of this encounter Visit Diagnoses Not on filedocumented in this encounter Care Teams Rod Mill Tender Relationship Specialty Start Date End Date Mehul Verdugo MD [address] [facility] [address] [place] [address] PCP - General Internal Medicine 09/10/21 Paulette Geller MD [address] [place] [address] Consulting Physician Gastroenterology 05/22/21 documented as of this encounter
--- OUTSIDE RECORDS SUMMARY | 2024-02-28 15:34 | XMS_ITS | Encounter Summary ---
Author Organization [facility] Address [address] [place] [address] Care Team Providers Care On Call Name Role Phone Paulette Geller MD Unavailable + Mehul Verdugo MD Primary Care Provider Encounter Details Date Type Department Care Team (Late st Contact Info) Description 10/28/2022 [facility] [address] [facility] [address] [place] [address] Mehul Verdugo MD [address] [facility] [address] [place] [address] Social History Tobacco Use Types [...] on file 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 Gender Identity Female 06/15/2023 1:45 PM CDT Sexual Orientation Straight 06/15/2023 1: 45 PM CDT documented as of this encounter Plan of Treatment Not on file documented as of this encounter Procedures Procedure Name Priority Date/Time Associated Diagnosis Comments SCAN - LABS 10/28/2022 3:52 PM CDT documented in this encounter Results * SCAN - LABS (10/28/2022 3:52 PM CDT) us Mehul Verdugo MD Final Result documented in this encounter Visit Diagnoses Not on filedocumented in this encounter Care Teams On Call Relationship Specialty Start Date End Date Mehul Verdugo MD [address] [facility] [address] [place] [address] PCP - General Internal Medicine 09/10/21 Paulette Geller MD [address] [place] [address] Consulting Physician Gastroenterology 05/22/21 documented as of this encounter
--- OUTSIDE RECORDS SUMMARY | 2024-02-28 15:34 | XMS_ITS | Encounter Summary ---
Author Organization [facility] Address [address] [place] [address] Care Team Providers Care Senior Software Engineer Analytics Name Role Phone Paulette Geller MD Unavailable + Mehlu Verdugo MD Primary Care Provider Encounter Details Date Type Department Care Team (Late st Contact Info) Description 04/01/2022 [facility] [address] [facility] [address] [place] [address] Mehul Verdugo MD [address] [facility] [address] [place] [address] Weakness (Primary Dx) Social History Tobacco Use Types [...] on file 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 Gender Identity Female 06/15/2023 1:45 PM CDT Sexual Orientation Straight 06/15/2023 1: 45 PM CDT documented as of this encounter Plan of Treatment Not on file documented as of this encounter Visit Diagnoses Diagnosis Weakness- Primary Other malaise and fatigue documented in this encounter Care Teams Senior Software Engineer Analytics Relationship Specialty Start Date End Date Mehul Verdugo MD [address] [facility] [address] [place] [address] PCP - General Internal Medicine 09/10/21 Paulette Geller MD [address] [place] [address] Consulting Physician Gastroenterology 05/22/21 documented as of this encounter
--- OUTSIDE RECORDS SUMMARY | 2024-02-28 15:34 | XMS_ITS | Encounter Summary ---
Author Organization [facility] Address [address] [place] [address] Care Team Providers Care Ruffler Name Role Phone Paulette Geller MD Unavailable + Mehul Verdugo MD Primary Care Provider [phone] Reason for Visit * Auth/Cert (Routine) Specialty Diagnoses / Procedures Referred By Cata t Referred To Contact Referral ID Status Reason Start Date Expiration Date Visits Re quested Visits Authorized [id number] 1 60 Encounter Details Date Type Department Care Team (Latest Contact Info) Description 12/15/2022 1:45 PM CDT Home Care Visit [facility] [address] [address] [address] [place] [address] Bradley Mota RN SN OASIS START OF CARE Social History Tobacco Use Types Packs/Day Years [...] on file 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 Gender Identity Female 06/15/2023 1:45 PM CDT Sexual Orientation Straight 06/15/2023 1: 45 PM CDT documented as of this encounter Last Filed Vital Signs Vital Sign Reading Time Taken Comments Blood Pressure 122/60 12/15/2022 9:00 AM CDT Pulse 65 12/15/2022 9:00 AM CDT Temperature 36.7 ??C (98 ??F) 12/15/2022 9:00 AM CDT Respiratory Rate 18 12/15/2022 9:00 AM CDT Oxygen Saturation 98% 12/15/2022 9:00 AM CDT Inhaled Oxygen Concentration - - Weight - - Height - - Body Mass Index - - documented in this encounter Miscellaneous Notes * Quality Review - Jamee Ceballos - 12/15/2022 8:30 AM CDT M1845: Changed from __1 to 2. Pt is noted to need assist with lower body dressing. According to OASIS guidance if patient needs help with adjusting lower body clothing due to physical/emotional impairments, Code 2. M1850: Changed from __1 to 2. Pt is noted to have unsteady gait, dementia, dyspnea unable to get out of the home without the use of a device and assistance of another. According to OASIS guidance if patient needs an assisted device AND minimal human assistance due to physical/cognitive impairments to transfer safely, Code 2. M1028: Change from ___ to 1. Patient has an active diagnosis of PVD/PAD including but not limited to venous insufficiency (I87.2) and/or any codes that start with 170.2-I70.7 and I70.9-or 173. ??? Changed from ___ to 2. Patient has an active diagnosis of DM including diagnoses classified between E08-E13. Clin Narrative Note Patient Name: Yuliana Johnson Assessment Type: OASIS Advanced SOC Assessment Date: 2022-12-15 00:00:00 Branch: [facility] Coding Notes: Please review onset/exacerbation dates and symptom control ratings. The coding for M1021/1023 reflects the most pertinent active diagnoses based on the documentation in the medical record, including mandatory comorbidity codes, manifestation codes and codes that are being addressed on POC or may impact the POC. OASIS: All recommendations made directly in the OASIS assessment. Please note changes made as below, along with rationale: If no recommendations are needed, delete this entire section and note ???no recommendations.?? under OASIS (delete this statement before placing in EPIC) Additional Notes: (Delete this if not needed) Additional Notes: Was TIOC met? Was SHP Reviewed/Applicable Alerts Addressed? Thank you! Completed By: Jamee Ceballos * Home Health Visit Narrative - Bradley Mota RN - 12/15/2022 8:30 AM CDT Assessed patient. Educated on s/s of infection, fall prevention, and who to call in the event of decline in health or emergency. Patients dexecom came out they do not have a device. called MD and spoke with nurse Dhillon, she has the patient set up with an appointment at 11 am on 12/16. She is going toapply another dexecom. Patient's caregiver stated that the patient doesnt have a glucose monitor. He stated he doesn't know what happened to it. documented in this encounter Plan of Treatment Not on file documented as of this encounter Visit Diagnoses Not on filedocumented in this encounter Home Health Visit - Care Plan Visit Details Visit Type -SN OASIS Start o f Care Discipline -Residential Problems Problem Description Start Date Status Goals Interve ntions Homebound Status Disciplines: Skilled Disciplines Patient's homebound status 12/15/2022 Active 1 goal linked to scheduled/documen soraida intervention 1 goal intervention scheduled/documen soraida in this visit Monitor patient's vital signs every home health visit Disciplines: SN, PT, OT, TERRA COTTA SETTER, SUPERVISOR ROAD ADMINISTRATOR, Skilled Disciplines Monitor patient's vital signs every [...] scheduled/documen soraida intervention 3 goal interventions scheduled/documen soriada in this visit Learning/Teachin g Needs - Insulin Management Disciplines: Residential Lack of knowledge related to insulin management 12/15/2022 Active 1 goal linked to scheduled/documen soraida intervention 1 goal intervention scheduled/documen soraida in this visit Problems with Coping - Diabetes Disciplines: Residential Problems related to coping with home management of diabetes 12/15/2022 Active 1 goal linked to scheduled/documen soraida intervention 1 goal intervention scheduled/documen soraida in this visit Learning/Teachin g [...] visit during episode of care Description: Home electrician chief to measure vital signs during every home [...] safe disposal of needles and testing equipment. Problem:Learning/Teac brandy Needs - Insulin Management Goal:Demonstrate ability to administer insulin Completed Instruct coping Description: Instruct patient/caregiver on effective coping and problem-solving skills. Instruct patient to avoid known/identified stressors or events that prevent use of constructive coping mechanisms/behaviors. Problem:Problems with Coping - Diabetes Goal:Demonstrate effective coping Completed Instruct diet Description: Instruct on diabetic diet. Problem:Learning/Teac brandy Needs - Diabetes Goal:Demonstrate adequate knowledge of Diabetes Completed Patient stated she eats what she wants noncompliant Instruct daily log Description: SN to develop blood sugar diary for patient to record all blood sugar readings in accordance with MD's Orders. Instruct when to call MD/RN or 911. Agency parameters: Call MD for blood sugar <70 for 3 days in a row or >240 for 3 days in a row or as instructed by MD. Problem:Learning/Teac brandy Needs - Diabetes Goal:Demonstrate adequate knowledge of Diabetes Completed Patient has a dexecom Instruct sick day Description: Instruct patient/caregiver in Sick Day Guidelines. Problem:Learning/Teac brandy Needs - Diabetes Goal:Demonstrate adequate knowledge of Diabetes Completed Instruct on signs and symptoms of hyperglycemia Description: Instruct patient/caregiver in signs/symptoms of hyperglycemia. Problem:Learning/Teac brandy Needs - Diabetes Goal:Demonstrate adequate knowledge of Diabetes Completed Instruct s/s of hypoglycemia Description: Instruct patient/caregiver on the signs and symptoms of hypoglycemia. Problem:Learning/Teac brandy Needs - Diabetes Goal:Demonstrate adequate knowledge of Diabetes Completed Blood glucose monitoring Description: Patient/caregiver to perform blood sugar testing and record in log. Frequency of testing before meals. Patient has a dexecom Problem:Learning/Teac brandy Needs - Diabetes Goal:Demonstrate adequate knowledge of Diabetes Completed Teach diabetes Description: Provide patient with diabetic education booklet and instruct on material. Problem:Learning/Teac brandy Needs - Diabetes Goal:Demonstrate adequate knowledge of Diabetes Completed documented in this encounter Care Teams Ruffler Relationship Specialty Start Date End Date Mehul Verdugo MD [address] [facility] [address] [place] [address] PCP - General Internal Medicine 09/10/21 Paulette Geller MD [address] [place] [address] Consulting Physician Gastroenterology 05/22/21 documented as of this encounter
--- OUTSIDE RECORDS SUMMARY | 2024-02-28 15:34 | XMS_ITS | Encounter Summary ---
Author Organization [facility] Address [address] [place] [address] Care Team Providers Care Core Baker Name Role Phone Paulette Geller MD Unavailable + Mehul Verdugo MD Primary Care Provider Encounter Details Date Type Department Care Team (Late st Contact Info) Description 03/25/2022 [facility] [address] [facility] [address] [place] [address] Mehul Verdugo MD [address] [facility] [address] [place] [address] Social History Tobacco Use Types [...] on file 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 Gender Identity Female 06/15/2023 1:45 PM CDT Sexual Orientation Straight 06/15/2023 1: 45 PM CDT documented as of this encounter Ordered Prescriptions Prescription Sig Dispense Quantity Refills Last Filled Start Date End Date amLODIPine (NORVASC) 10 mg tablet Take 1 tablet (10 mg total) by mouth daily 90 tablet 1 03/25/2022 07/08/2022 clopidogreL (PLAVIX) 75 mg tablet Take 1 tablet (75 mg total) by mouth daily 90 tablet 1 03/25/2022 12/01/2023 fenofibrate (TRIGLIDE) 160 mg tablet Take 1 tablet (160 mg total) by mouth daily 90 tablet 1 03/25/2022 10/21/2022 documented in this encounter Miscellaneous Notes * Telephone Encounter - Melanie Wilkes MA - 03/25/2022 3:20 PM CST Rx sent to pharmacy and for [facility] LY CHAIN PLANNER * Telephone Encounter - Mehul Verdugo MD - 03/25/2022 10:47 AM CST Ok lets fill meds as needed. LY CHAIN PLANNER * Telephone Encounter - Melanie Wilkes MA - 03/25/2022 10:28 AM CST Discharge med list from [place] [facility] as follows: Keppra 500mg q 12 hours Eliquis 2.5mg bid Metformin 500mg bid it says to hold medication until resumed by your primary Carvedilol 25mg po bid Pravastatin 40mg po daily Asa 81mg Amlodipine 10mg po daily Pyridoxine 100mg daily Zolpidem 10mg at hs Losartan 100mg po daily Fenofibrate 160mg po daily Potassium 20 meq po daily Plavix 75mg daily Furosemide 20mg 60mg daily hold medication until resumed by your primary LY CHAIN PLANNER * Telephone Encounter - Mehul Verdugo MD - 03/25/2022 9:54 AM CST Lets do a full med rec. LY CHAIN PLANNER * Telephone Encounter - Melanie Wilkes MA - 03/25/2022 9:15 AM CST Branden cantu calling [facility] med list has the following on it Amlodipine 10mg Plavix 75mg Fenofibrate 160mg Pt does not have in the home She also takes asa and eliquis Phar gabet ashlee Otero [phone] [facility] LY CHAIN PLANNER documented in this encounter Plan of Treatment Not on file documented as of this encounter Visit Diagnoses Not on filedocumented in this encounter Discontinued Medications Medication Sig Discontinue Reason Start Date End Da te fenofibrate (TRIGLIDE) 160 mg tablet TAKE 1 TABLET EVERY DAY Reorder 07/13/2021 03/25/2022 documented as of this encounter Care Teams Core Baker Relationship Specialty Start Date End Date Mehul Verdugo MD [address] [facility] [address] [place] [address] PCP - General Internal Medicine 09/10/21 Paulette Geller MD [address] [place] [address] Consulting Physician Gastroenterology 05/22/21 documented as of this encounter
--- OUTSIDE RECORDS SUMMARY | 2024-02-28 15:35 | XMS_ITS | Encounter Summary ---
Author Organization [facility] Address [address] [place] [address] Care Team Providers Care Auto Wash Buffer Name Role Phone Paulette Geller MD Unavailable + Mehul Verdugo MD Primary Care Provider [phone] Encounter Details Date Type Department Care Team (Late st Contact Info) Description 09/25/2021 [facility] [address] [facility] [address] [place] [address] Mehul Verdugo MD [address] [facility] [address] [place] [address] Social History Tobacco Use Types [...] file 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 Gender Identity Female 06/15/2023 1:45 PM CDT Sexual Orientation Straight 06/15/2023 1: 45 PM CDT documented as of this encounter Miscellaneous Notes * Telephone Encounter - Nella Markham MA - 09/25/2021 10:28 AM CDT Pt aware/mk Has appt in november * Telephone Encounter - Nella Markham MA - 09/25/2021 10:28 AM CDT ----- Message from Mehul Verdugo MD sent at 09/14/2021 6:02 AM CDT ----- No significant lab abnormalities, will need follow up cmp in 6 months documented in this encounter Plan of Treatment Not on file documented as of this encounter Visit Diagnoses Not on filedocumented in this encounter Care Teams Auto Wash Buffer Relationship Specialty Start Date End Date Mehul Verdugo MD [address] [facility] [address] [place] [address] PCP - General Internal Medicine 09/10/21 Paulette Geller MD [address] [place] [address] Consulting Physician Gastroenterology 05/22/21 documented as of this encounter
--- OUTSIDE RECORDS SUMMARY | 2024-02-28 15:35 | XMS_ITS | Encounter Summary ---
Author Organization [facility] Address [address] [place] [address] Phone Care Team Providers Care Sql Manager Name Role Phone Paulette Geller MD Unavailable + Mehul Verdugo MD Primary Care Provider [phone] Reason for Referral * Consultation (Routine) - Closed Specialty Diagnoses / Procedures Referred By Contac t Referred To Contact Cardiology Diagnoses Nonrheumatic mitral valve regurgitation Mehul Verdugo MD [address] [place] [address] Phone: tel: fax: [facility] (All Locations) Referral ID Status Reason Start Date Expiration Date V isits Requested Visits Authorized [id number] Closed Specialty Services Required 11/16/2021 12/16/2022 12 Question Answer Please select the performing region: [facility] (All Locations) [[id number]] # of visits: 1 Reason for Visit * Consultation (Routine) - Closed Specialty Diagnoses / Procedures Referred By Contac t Referred To Contact Cardiology Diagnoses Nonrheumatic mitral valve regurgitation Mehul Verdugo MD [address] [facility] [address] [place] [address] Phone: tel: fax: [facility] (All Locations) Referral ID Status Reason Start Date Expiration Date V isits Requested Visits Authorized [id number] Closed Specialty Services Required 11/16/2021 12/16/2022 12 Encounter Details Date Type Department Care Team (Latest Contact Info) Description 11/30/2021 10:15 AM CDT Office Visit [facility] Cardiology [address] [facility] [address] [place] [address] Sp Madrid MD [address] [facility] [address] [place] [address] Nonrheumatic mitral valve regurgitation (Primary Dx) Social [...] on file 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 Gender Identity Female 06/15/2023 1:45 PM CDT Sexual Orientation Straight 06/15/2023 1: 45 PM CDT documented as of this encounter Last Filed Vital Signs Vital Sign Reading Time Taken Comments Blood Pressure 156/78 11/30/2021 10:18 AM CDT Pulse 66 11/30/2021 10:18 AM CDT Temperature 36.6 ??C (97.8 ??F) 11/30/2021 10:18 AM C DT Respiratory Rate - - Oxygen Saturation 97% 11/30/2021 10:18 AM CDT Inhaled Oxygen Concentration - - Weight 66 kg (145 lb 9.6 oz) 11/30/2021 10:18 AM CDT Height 154.9 cm (5' 0.98 ) 11/30/2021 10:18 AM C DT Body Mass Index 27.53 11/30/2021 10:18 AM CDT documented in this encounter Patient Instructions * Patient Instructions* Sp Madrid MD - 11/30/2021 10:15 AM CDT Echo with doppler Rtc 4 m documented in this encounter Progress Notes * Sp Madrid MD - 11/30/2021 10:15 AM CDT 11/30/2021 History of Present Illness: Yuliana Johnson is [...] Type 2 diabetes mellitus. 7. Dyslipidemia. She had a gallbladder surgery.She has a history of T12-L1 Fracture due to mechanical fall. She underwent vertebroplasty on 05/23/2020. .This was mechanical injury. She is short of breath. She have left eye floaters. According to the her memory is fading She had an KARLY done, No cardiac sourceof emboli noted. No syncope, fever noted. She is tolerating anticoagulation well She had a cath done on 10/28/2014 before the valvular heart surgery; she had minimal atherosclerotic coronary artery disease at that time. She is afebrile. Denies CP, SOB, PND, Orthopnea, dizziness, or lightheadedness. Current Outpatient Medications Medication Sig Dispense Refill pravastatin (PRAVACHOL) 40 mg tablet TAKE 1 TABLET EVERY DAY 90 tablet 0 acetaminophen (TYLENOL) 325 mg tablet Take 2 [...] the next 30 min. 12 tablet 1 blood glucose diagnostic (glucose blood) strip Use [...] mouth 2 (two) times a day with tablet 1 Eliquis 2.5 mg tablet Take 1 tablet by mouth twice daily 60 tablet 6 fenofibrate (TRIGLIDE) 160 mg tablet TAKE 1 TABLET EVERY DAY 90 tablet 0 furosemide (LASIX) 20 mg tablet Take 1 tablet (20 mg total) by mouth daily 90 tablet 3 lancets 33 gauge misc Use [...] tablet 1 mirtazapine (REMERON) 7.5 mg tablet Take 1 tablet (7.5 mg total) by mouth nightly 30 tablet 2 potassium chloride ER (potassium chloride ER) 20 mEq CR tablet Take 1 tablet (20 mEq total) by mouth daily 90 tablet 0 senna-docusate (PERICOLACE) 8.6-50 mg Take 1 tablet by mouth daily for 14 days (Patient not taking:Reported on 05/25/2021) 14 tablet 0 tiotropium bromide (SPIRIVA RESPIMAT) 2.5 mcg/actuation inhaler Inhale 2 puffs daily 70 mcg of tiotropium 2 zolpidem (AMBIEN) 5 mg tablet TAKE 1 TABLET BY MOUTH NIGHTLY NEEDED FOR SLEEP 30 tablet 0 No current facility-administered medications for this visit. PHYSICAL EXAMINATION Blood pressure 156/78, pulse 66, temperature 36.6 ??C (97.8 ??F), height 154.9 cm (5' 0.98 ), weight 66 kg (145 lb 9.6 oz), SpO2 97 %. Physical Exam Constitutional: Appearance: She is [...] LV strain pattern. Diastolic function: Pseudo normal 8 Lab Results Component Value Date WBC 6.8 09/10/2021 HGB 12.2 09/10/2021 HCT 37.5 09/10/2021 LABPLAT 212 09/10/2021 CHOL 105 05/10/2021 TRIG 65 05/10/2021 HDL 46 05/10/2021 LDL 17 01/08/2015 AST 22 09/10/2021 SODIUM 143 09/10/2021 POTASSIUM 4.1 05/22/2021 CHLORIDE 107 (H) 09/10/2021 CREATININE 1.06 (H) 09/10/2021 BUNSER 24 09/10/2021 CO2 20 09/10/2021 BNP 797 (H) 01/27/2015 TSH 3.420 09/10/2021 INR 1.8 (H) 05/19/2021 HGBA1C 6.5 09/10/2021 MICROALBUR <3.0 09/10/2021 Component Latest Ref Rng & Units 02/09/2019 04/22/2020 09/30/2020 05/10/2021 Cholesterol 30 - 199 mg/dL 114 105 Triglycerides <=149 mg/dL 103 65 HDL Cholesterol >=40 mg/dL 39 (L) 46 LDL Cholesterol Calc <=129 mg/dL 54 46 Non-HDL Cholesterol mg/dL 75 59 Chol/HDL ratio 3 3.1 n/a 2 Assesment/Plan: 1. Chest pain with abnormal EKG. [...] give lasix 20 mg a day prn. 4. Dyslipidemia. She is on fenofibrate 160 [...] lasix prn only. Low salt diet. RTc 6 M . Please feel free to contact my office regarding her cardiac problems. Damien Norton MD forklift truck mechanic Cardiology Division [facility] documented in this encounter Plan of Treatment Scheduled Referrals Name Type Priority Associated Diagnoses Orde r Schedule Ambulatory referral to Cardiology Outpatient Referral Routine Nonrheumatic mitral valve regurgitation Expected: 11/30/2021 (Approximate), Expires: 11/16/2022 documented as of this encounter Visit Diagnoses Diagnosis Nonrheumatic mitral valve regurgitation- Primary documented in this encounter Care Teams Sql Manager Relationship Specialty Start Date End Date Mehul Verdugo MD [address] [facility] [address] [place] [address] PCP - General Internal Medicine 09/10/21 Paulette Geller MD [address] [place] [address] Consulting Physician Gastroenterology 05/22/21 documented as of this encounter
--- OUTSIDE RECORDS SUMMARY | 2024-02-28 15:35 | XMS_ITS | Encounter Summary ---
Author Organization [facility] Address [address] [address] Care Team Providers Care Professor Of Political Science Name Role Phone Haris Lauren MD Primary Care Provider [phone] Paulette Geller MD Unavailable + Reason for Visit * Reason Comments Follow-up Pt is here for a hos pital f/u for abd pain and blood in stool Encounter Details Date Type Department Care Team (Late st Contact Info) Description 05/27/2021 9:15 AM CDT Office Visit [facility] Medical [facility] Primary Care at [address] [address] Haris Lauren MD [address] [address] HTN (hypertension), benign (Primary Dx); Type 2 diabetes mellitus without complication, without long-term current use of insulin (CMS/HCC) (HCC); S/P cholecystectomy; Bright red blood per rectum Social History Tobacco Use Types Packs/Day Years [...] on file 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 Gender Identity Female 06/15/2023 1:45 PM CDT Sexual Orientation Straight 06/15/2023 1: 45 PM CDT documented as of this encounter Last Filed Vital Signs Vital Sign Reading Time Taken Comments Blood Pressure 132/76 05/27/2021 9:38 AM CDT Pulse 73 05/27/2021 9:38 AM CDT Temperature 36.9 ??C (98.5 ??F) 05/27/2021 9:38 AM CD T Respiratory Rate - - Oxygen Saturation 96% 05/27/2021 9:38 AM CDT Inhaled Oxygen Concentration - - Weight 62.2 kg (137 lb 1.6 oz) 05/27/2021 9:38 A M CDT Height 154.9 cm (5' 1 ) 05/27/2021 9:38 AM CDT Body Mass Index 25.9 05/27/2021 9:38 AM CDT documented in this encounter Progress Notes * Haris Lauren MD - 05/27/2021 9:15 AM CDT Images from the original note were not included. Subjective/Objective Patient ID: Yuliana Johnson is a 80 y.o. female. Chief Complaint Follow-up (Pt is here for a hospital f/u for abd pain and blood in stool ) 80-year-old female. Status post gallbladder removal. Status post admission for a GI of the bleed lower. Was at [facility]. Discharged home. Finished antibiotics. No scopes done feeling better better appetite. Now stool lose Current Outpatient Medications Medication Sig Dispense Refill ??? acetaminophen (TYLENOL) 325 mg tablet Take 2 tablets (650 mg total) by mouth every 4 (four) hours as needed for pain or headaches 20 tablet 0 ??? alendronate (FOSAMAX) 70 mg tablet Take 1 tablet (70 mg total) by mouth every 7 days Take in the morning with a full glass of water, on an empty stomach, and do not take anything else by mouth orlie down for the next 30 min. 12 tablet 1 ??? carvediloL (COREG) 25 mg tablet Take 1 tablet (25 mg total) by mouth 2 (two) times a day with meals 180 tablet 1 ??? fenofibrate (TRIGLIDE) 160 mg tablet Take 1 tablet (160 mg total) by mouth daily 90 tablet 0 ??? furosemide (LASIX) 20 mg tablet Take 1 tablet (20 mg total) by mouth daily 30 tablet 11 ??? losartan (COZAAR) 100 mg tablet Take 1 tablet (100 mg total) by mouth daily 90 tablet 2 ??? metFORMIN (GLUCOPHAGE) 500 mg tablet Take 1 tablet (500 mg total) by mouth 2 (two) times a day with meals 180 tablet 1 ??? ondansetron (Zofran) 4 mg tablet Take 1 tablet (4 mg total) by mouth every 8 (eight) hours as needed for nausea or vomiting 30 tablet 0 ??? pravastatin (PRAVACHOL) 40 mg tablet Take 1 tablet (40 mg total) by mouth daily 90 tablet 0 ??? tiotropium bromide (SPIRIVA RESPIMAT) 2.5 mcg/actuation inhaler Inhale 2 puffs daily 70 mcg of tiotropium 2 ??? zolpidem (AMBIEN) 10 mg tablet Take 10 mg by mouth nightly as needed for sleep ??? senna-docusate (PERICOLACE) 8.6-50 mg Take 1 tablet by mouth daily for 14 days (Patient not taking: Reported on 05/25/2021) 14 tablet 0 No current facility-administered medications for this visit. Review of Systems Constitutional: Positive for fatigue. Negative for fever. Respiratory: Negative for cough and shortness of breath. Cardiovascular: Negative for chest pain and leg swelling. Gastrointestinal: Positive for nausea. Negative for abdominal pain. Musculoskeletal: Positive for back pain. Negative for neck pain. Neurological: Positive for weakness. Negative for seizures and headaches. Psychiatric/Behavioral: Negative for confusion. The patient is not nervous/anxious. Vitals BP 132/76 (BP Location: Right arm, Patient Position: Sitting) Pulse 73 Temp 36.9 ??C (98.5 ??F) (Oral) Ht 154.9 cm (5' 1 ) Wt 62.2 kg (137 lb 1.6 oz) SpO2 96% BMI 25.90 kg/m?? Physical Exam Constitutional: Appearance: She is well-developed. Cardiovascular: Rate and Rhythm: Normal rate and regular rhythm. Heart sounds: Normal heart sounds. Pulmonary: Effort: Pulmonary effort is normal. Breath sounds: Normal breath sounds. Abdominal: General: Bowel sounds are normal. Palpations: Abdomen is soft. Skin: General: Skin is warm and dry. Neurological: Mental Status: She is alert and oriented to person, place, and time. Psychiatric: Speech: Speech normal. walker Assessment/Plan Diagnoses and all orders for this visit: HTN (hypertension), benign (I10) (Primary) - currently stable. Regular diet. Take meds. Sees Cardiology. Type 2 diabetes mellitus without complication, without long-term current use of insulin (CMS/HCC) (HCC) (E11.9) - currently stable. Doing well . A1c 5.9. S/P cholecystectomy (Z90.49) - follow-up General surgery Status post admission for bright red blood per rectum - follow-up GI. Questionable EGD colonoscopy. Was mentioned in the hospital Haris Lauren MD No orders of the defined types were placed in this encounter. documented in this encounter Plan of Treatment Not on file documented as of this encounter Visit Diagnoses Diagnosis HTN (hypertension), benign- Primary Essential hypertension, benign Type 2 diabetes mellitus without complication, without long-term current use of insulin (CMS/HCC) (HCC) S/P cholecystectomy Other acquired absence of organ Bright red blood per rectum Hemorrhage of rectum and anus documented in this encounter Care Teams Professor Of Political Science Relationship Specialty Start Date End Date Haris Lauren MD PCP - General Family Medicine 12/31/20 06/07/21 Paulette Geller MD [address] [place] [address] Consulting Physician Gastroenterology 05/22/21 documented as of this encounter
--- OUTSIDE RECORDS SUMMARY | 2024-02-28 15:35 | XMS_ITS | Encounter Summary ---
Author Organization [facility] Address [address] [address] Care Team Providers Care Lay Out Drafter Name Role Phone Haris Lauren MD Primary Care Provider [phone] Encounter Details Date Type Department Care Team (Late st Contact Info) Description 05/19/2021 Telephone [facility] Primary Care at [address] [address] Haris Lauren MD [address] [place] [address] Social History Tobacco Use Types Packs/Day Years Used Date Smoking Tobacco: Never Smokeless Tobacco: Never Alcohol Use Standard Drinks/Week Comments No 0 (1 standard drink = 0.6 oz pur e alcohol) PHQ-2 Answer Date Recorded PHQ-2 Total Score (If total score is 3 or more points, staff should administer the PHQ-9) 0 05/14/2021 Comments No Sex and Gender Information Value Date Recorded Sex Assigned at Not on file 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 I recommended they go to the ER. He started understanding and is going to take her to [place]. * Telephone Encounter - Haris Lauren MD - 05/19/2021 8:45 AM CDT Check UA * Telephone Encounter - Liza Akers MA - 05/19/2021 8:43 AM CDT Pt's called in saying pt went to the ED 1 wk ago and had gallbladder surgery. When she got up today she had blood in her urine. He said he could visibly see read in the toilet. What do you recommend for pt? documented in this encounter Plan of Treatment Not on file documented as of this encounter Visit Diagnoses Not on filedocumented in this encounter Care Teams Lay Out Drafter Relationship Specialty Start Date End Date Haris Lauren MD PCP - General Family Medicine 12/31/20 06/07/21 documented as of this encounter
--- OUTSIDE RECORDS SUMMARY | 2024-02-28 15:35 | XMS_ITS | Encounter Summary ---
Author Organization [facility] Address [address] [place] [address] Care Team Providers Care Water Vessel Captain Name Role Phone Paulette Geller MD Unavailable + Mehul Verdugo MD Primary Care Provider [phone] Reason for Visit * Reason Comments Hospital Follow Up syncope Encounter Details Date Type Department Care Team (Late st Contact Info) Description 03/17/2022 11:00 AM CERAMICS TEACHER Office Visit [facility] [address] [facility] [address] [facility] [place] [id number] Michell Morris, PRASHANTH [address] [facility] [address] [place], [place] [id number] HTN (hypertension), benign (Primary Dx); Frequent falls Social History Tobacco Use Types Packs/Day Years [...] on file 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 Gender Identity Female 06/15/2023 1:45 PM CDT Sexual Orientation Straight 06/15/2023 1: 45 PM CDT documented as of this encounter Last Filed Vital Signs Vital Sign Reading Time Taken Comments Blood Pressure 174/90 03/17/2022 11:15 AM CERAMICS TEACHER Pulse 77 03/17/2022 11:15 AM CERAMICS TEACHER Temperature - - Respiratory Rate - - Oxygen Saturation 96% 03/17/2022 11:15 AM CERAMICS TEACHER Inhaled Oxygen Concentration - - Weight 65.8 kg (145 lb) 03/17/2022 11:15 AM CERAMICS TEACHER Height 154.9 cm (5' 1 ) 03/17/2022 11:15 AM CERAMICS TEACHER Body Mass Index 27.4 03/17/2022 11:15 AM CERAMICS TEACHER documented in this encounter Progress Notes * Michell Morris, SOFTWARE INTEGRATOR - 03/17/2022 11:00 AM CST Office Visit Yuliana Johnson is a 81 y.o. female here for Hospital Follow Up (syncope) HPI 81F with DM2, HTN, HLD, CKD, CHF, chronic small vessel ischemia and hx of tricuspid and mitral valve repair on a/c. Hx of prior embolic CVA. Hx of fall in 2020 resulting in vertebral fx requiring vertebroplasty. Dec 2021 A1C 7.3% 03/09/22 in ER at [facility] for AMS and fall. Imaging and labs all unrevealing and discharged home. Presents today for f/u accompanied by . BP elevated today, reports she did not take two of her small white pills this AM. Had uncontrolled BM's today. She continues to have frequent falls at home. Using walker and wheelchair. Sleeps on/off throughoutthe day, is restless early in the night and then sleeps well. Current Medications Current Outpatient Medications: acetaminophen (TYLENOL) [...] 30 min., Disp: 12 tablet, Rfl: 1 blood glucose diagnostic (glucose blood) strip, Use to test blood sugar once daily DX: E11.9 non insulin dependent (True Metrix), Disp: 100 each, Rfl: 11 blood-glucose meter (True Metrix Glucose Meter) [facility], Use to test blood sugar once daily DX: E11.9 non insulin dependent, Disp: 1 each, Rfl: 0 carvediloL (COREG) 25 mg tablet, Take 1 tablet (25 mg total) by mouth 2 (two) times a day with meals, Disp: 180 tablet, Rfl: 1 Eliquis 2.5 mg tablet, Take 1 tablet by mouth twice daily, Disp: 60 tablet, Rfl: 6 fenofibrate (TRIGLIDE) 160 mg tablet, TAKE 1 TABLET EVERY DAY, Disp: 90 tablet, Rfl: 0 furosemide (LASIX) 20 mg tablet, Take 1 tablet (20 mg total) by mouth daily, Disp: 90 tablet, Rfl: 3 lancets 33 gauge [facility], Use to test blood sugar once daily [...] Rfl: 1 mirtazapine (REMERON) 7.5 mg tablet, Take 1 tablet (7.5 mg total) by mouth nightly, Disp: 90 tablet, Rfl: 0 potassium chloride ER 20 mEq CR tablet, Take 1 tablet by mouth once daily, Disp: 90 tablet, Rfl: 3 pravastatin (PRAVACHOL) 40 mg tablet, TAKE 1 TABLET EVERY DAY, Disp: 90 tablet, Rfl: 0 tiotropium bromide (SPIRIVA RESPIMAT) 2.5 mcg/actuation inhaler, Inhale 2 puffs daily, Disp: 70 mcgof tiotropium, Rfl: 2 zolpidem (AMBIEN) 5 mg tablet, TAKE 1 TABLET BY MOUTH NIGHTLY NEEDED FOR SLEEP, Disp: 30 tablet,Rfl: 0 Allergies No Known Allergies Past Medical and Surgical History: Patient Active Problem List Diagnosis Arteriosclerotic vascular disease Type 2 diabetes mellitus (HCC) Dyslipidemia HTN (hypertension), benign Mitral valve insufficiency Pulmonary hypertension (CMS/HCC) (HCC) S/P mitral valve repair Tricuspid valve disorder CVA (cerebral vascular accident) (CMS/HCC) (HCC) Compression fracture of T12 vertebra (HCC) Primary insomnia Age-related osteoporosis without current pathological fracture Chronic diastolic heart failure (HCC) CKD (chronic kidney disease) S/P cholecystectomy Frequent falls Past Medical History: Diagnosis Date Cancer (CMS/HCC) [...] file Immunization History Administered Date(s) Administered Influenza, Trivalent, Adjuvanted, Intramuscular 12/13/2017, 12/14/2017 Influenza, Trivalent, High Dose, Split, Preservative Free, Intramuscular 02/09/2019 Influenza, Unspecified 01/15/2015, 12/17/2020 Pneumococcal Conjugate PCV 13 08/21/2016 Pneumococcal Conjugate, Unspecified 01/15/2015 Pneumococcal Polysaccharide PPV23 01/15/2015 Assessment/Plan Review of Systems Review of Systems See HPI Physical Exam Physical Exam Constitutional: Appearance: Normal [...] motion. Cervical back: Normal range of motion. Comments: In W/C today Skin: General: Skin is warm and dry. Capillary Refill: Capillary refill takes less than 2 seconds. Findings: No lesion or rash. Neurological: General: No focal deficit present. Mental Status: She is alert and oriented to person, place, and time. Cranial Nerves: No cranial nerve deficit. Gait: Gait normal. Psychiatric: Attention and Perception: She is inattentive. Mood and Affect: Affect is blunt and flat. Speech: Speech is delayed. Behavior: Behavior is slowed. Behavior is cooperative. Thought Content: Thought content normal. Cognition and Memory: Cognition is impaired. Memory is impaired. Vitals BP (!) 174/90 (BP Location: Right arm, Patient Position: Sitting) Pulse 77 Ht 154.9 cm (5' 1 ) Wt 65.8 kg (145 lb) SpO2 96% BMI 27.40 kg/m?? Wt Readings from Last 3 Encounters: 03/17/22 65.8 kg (145 lb) 01/19/22 67.1 kg (148 lb) 11/30/21 66 kg (145 lb 9.6 oz) Body mass index is 27.4 kg/m??. Assessment and Plan Diagnoses and all orders for this visit: HTN (hypertension), benign (Primary) Assessment & Plan: Encouraged to get home monitor and ensure she gets all medications Follows with Cardiology Orders: - Ambulatory referral to Home Health; Future Frequent falls Assessment & Plan: Likely related to progressing dementia? (reviewed prior MRI and recent CT) Will refer to Home Health for SN/PT for blood pressure monitoring and balance/gait training Orders: - Ambulatory referral to Home Health; Future Recommendations and Follow up No follow-ups on file. Michell Morris NP MICS TEACHER documented in this encounter Miscellaneous Notes * Assessment & Plan Note - Michell Morris NP - 03/17/2022 12:12 PM CERAMICS TEACHER Associated Problem(s): Frequent falls Likely related to progressing dementia? (reviewed prior MRI and recent CT) Will refer to Home Health for SN/PT for blood pressure monitoring and balance/gait training MICS TEACHER * Assessment & Plan Note - Michell Morris NP - 03/17/2022 12:12 PM CERAMICS TEACHER Associated Problem(s): HTN (hypertension), benign Encouraged to get home monitor and ensure she gets all medications Follows with Cardiology MICS TEACHER documented in this encounter Plan of Treatment Not on file documented as of this encounter Visit Diagnoses Diagnosis HTN (hypertension), benign- Primary Essential hypertension, benign Frequent falls documented in this encounter Discontinued Medications Medication Sig Discontinue Reason Start Date End Da te senna-docusate (PERICOLACE) 8.6-50 mg Take 1 tablet by mouth daily for 14 days 05/12/2021 03/17/2022 documented as of this encounter Care Teams Water Vessel Captain Relationship Specialty Start Date End Date Mehul Verdugo MD [address] [facility] [address] [place] [address] PCP - General Internal Medicine 09/10/21 Paulette Geller MD [address] [place] [address] Consulting Physician Gastroenterology 05/22/21 documented as of this encounter
--- OUTSIDE RECORDS SUMMARY | 2024-02-28 15:35 | XMS_ITS | Encounter Summary ---
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 Gender Identity Female 06/15/2023 1:45 PM CDT Sexual Orientation Straight 06/15/2023 1: 45 PM CDT documented as of this encounter Miscellaneous Notes * Telephone Encounter - Nova Handley, EDD - 06/07/2021 7:21 PM CDT [facility]- pt spouse called me 06/05/21 after hours as not pharmacy does not have any information on pt request earlier for Zofran- explained office is not open and will send a message to pcp- explained if pt develops any issues, go to ER- Nova Handley RN, BSN [facility] [phone] documented in this encounter Plan of Treatment Not on file documented as of this encounter Visit Diagnoses Not on filedocumented in this encounter Care Teams Molding Line Assistant Relationship Specialty Start Date End Date Haris Lauren MD PCP - General Family Medicine 12/31/20 06/07/21 Paulette Geller MD [address] [place] [address] Consulting Physician Gastroenterology 05/22/21 documented as of this encounter
--- OUTSIDE RECORDS SUMMARY | 2024-02-28 15:35 | XMS_ITS | Encounter Summary ---
Author Organization [facility] Address [address] [place] [address] Care Team Providers Care Investigations Manager Name Role Phone Paulette Geller MD Unavailable + Mehul Verdugo MD Primary Care Provider [phone] Reason for Visit * Reason Onset Date Comments Insomnia 09/23/2021 Encounter Details Date Type Department Care Team (Late st Contact Info) Description 09/23/2021 [facility] [address] [facility] [address] [place] [phone] Mehul Verdugo MD [address] [facility] [address] [place] [address] Insomnia Social History Tobacco Use Types Packs/Day Years [...] on file 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 Gender Identity Female 06/15/2023 1:45 PM CDT Sexual Orientation Straight 06/15/2023 1: 45 PM CDT documented as of this encounter Ordered Prescriptions Prescription Sig Dispense Quantity Refills Last Filled Start Date End Date zolpidem (AMBIEN) 5 mg tabletIndications: Sleep-Onset Insomnia Take 1 tablet (5 mg total) by mouth nightly as needed for sleep 30 tablet 09/23/2021 documented in this encounter Miscellaneous Notes * Telephone Encounter - Melanie Wilkes MA - 09/23/2021 3:06 PM CDT Pt aware and rx ready to be sent * Telephone Encounter - Mehul Verdugo MD - 09/23/2021 10:31 AM CDT Can give zolpidem 5mg #30 10 is too much at her stage in life * Telephone Encounter - Melanie Wilkes MA - 09/23/2021 10:28 AM CDT Pt spouse calling States pt used to take zolpidem 10mg for sleep but has not taken in 4 months and she is asking for rx She is having difficulty staying asleep tristan colindres documented in this encounter Plan of Treatment Not on file documented as of this encounter Visit Diagnoses Not on filedocumented in this encounter Care Teams Investigations Manager Relationship Specialty Start Date End Date Mehul Verdugo MD [address] [facility] [address] [place], [place] [id number] PCP - General Internal Medicine 09/10/21 Paulette Geller MD [address] [place] [address] Consulting Physician Gastroenterology 05/22/21 documented as of this encounter
--- OUTSIDE RECORDS SUMMARY | 2024-02-28 15:35 | XMS_ITS | Encounter Summary ---
Author Organization [facility] Address [address] [address] Care Team Providers Care Sr. 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 100 each 11 06/16/2021 3 blood glucose diagnostic (glucose blood) strip Use to test blood sugar once daily DX: E11.9 non insulin dependent (True Metrix) 100 each 11 06/16/2021 3 documented in this encounter Plan of Treatment Not on file documented as of this encounter Visit Diagnoses Not on filedocumented in this encounter Care Teams Sr. Operations Manager Relationship Specialty Start Date End Date Haris Lauren MD [address] [place] [address] PCP - General Family Medicine 06/12/21 09/09/21 Paulette Geller MD [address] [place] [address] Consulting Physician Gastroenterology 05/22/21 documented as of this encounter
--- OUTSIDE RECORDS SUMMARY | 2024-02-28 15:35 | XMS_ITS | Encounter Summary ---
Author Organization [facility] Address [address] [place] [address] Care Team Providers Care Export Agent Name Role Phone Paulette Geller MD Unavailable + Mehul Verdugo MD Primary Care Provider Reason for Visit * Reason Onset Date Comments Spoke With Home Health Provider 03/24/2022 Encounter Details Date Type Department Care Team (Late st Contact Info) Description 03/24/2022 [facility] [id number] [place] [phone] Mehul Verdugo MD [address] [facility] [address] [place] [address] Spoke With Home Health Provider [...] on file 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 CUTTING MACHINE OPERATOR documented in this encounter Plan of Treatment Not on file documented as of this encounter Visit Diagnoses Not on filedocumented in this encounter Care Teams Export Agent Relationship Specialty Start Date End Date Mehul Verdugo MD [address] [facility] [address] [place] [address] PCP - General Internal Medicine 09/10/21 Paulette Geller MD [address] [place] [address] Consulting Physician Gastroenterology 05/22/21 documented as of this encounter
--- OUTSIDE RECORDS SUMMARY | 2024-02-28 15:35 | XMS_ITS | Encounter Summary ---
Author Organization [facility] Address [address] [place] [address] Care Team Providers Care Fisher Swordfish Name Role Phone Paulette Geller MD Unavailable + Mehul Verdugo MD Primary Care Provider Reason for Referral * Diagnostic Imaging (Routine) - Closed Specialty Diagnoses / Procedures Referred By Cata quintanilla Referred To Contact Diagnoses Cough, unspecified type Procedures XR Chest Pa Lateral 2 Vw Mehul Verdugo MD [address] [facility] [address] [place] [address] Phone: tel: fax: [facility] [address] [place] [address] Referral ID Status Reason Start Date Expiration Date Visits Re quested Visits Authorized [id number] Closed 01/19/2022 02/18/2023 1 1 SERVICE COUNTER CLERK Reason for Visit * Reason Comments Diabetes Hyperlipidemia Hypertension Cough Encounter Details Date Type Department Care Team (Late st Contact Info) Description 01/19/2022 11:00 AM FOOD SERVICE COUNTER CLERK Office Visit [facility] [address] [facility] [address] [place] [address] Mehul Verdugo MD [address] [facility] [address] [place] [address] Type 2 diabetes mellitus without complication, without long-term current use of insulin (CMS/HCC) (HCC) (Primary Dx); Hyperlipidemia, unspecified hyperlipidemia type; Dyslipidemia; HTN (hypertension), benign; Pulmonary hypertension (CMS/HCC) (HCC); S/P mitral valve repair; Tricuspid valve disorder; Cough, unspecified type Social History Tobacco Use Types Packs/Day Years [...] file Legal Sex Female 11:30 PM FOOD SERVICE COUNTER CLERK Gender Identity Female 06/15/2023 1:45 PM CDT Sexual Orientation Straight 06/15/2023 1: 45 PM CDT documented as of this encounter Last Filed Vital Signs Vital Sign Reading Time Taken Comments Blood Pressure 205/90 01/19/2022 11:30 AM FOOD SERVICE COUNTER CLERK Pulse 69 01/19/2022 11:30 AM FOOD SERVICE COUNTER CLERK Temperature - - Respiratory Rate - - Oxygen Saturation - - Inhaled Oxygen Concentration - - Weight 67.1 kg (148 lb) 01/19/2022 11:30 AM FOOD SERVICE COUNTER CLERK Height 154.9 cm (5' 1 ) 01/19/2022 11:30 AM FOOD SERVICE COUNTER CLERK Body Mass Index 27.96 01/19/2022 11:30 AM FOOD SERVICE COUNTER CLERK documented in this encounter Progress Notes * Mehul Verdugo MD - 01/19/2022 11:00 AM CST Images from the original note were not included. Subjective/Objective Patient ID: Yuliana Johnson is a 81 y.o. female. Chief Complaint Diabetes, Hyperlipidemia, Hypertension, and Cough Diabetes Pertinent negatives for hypoglycemia include no dizziness, headaches or nervousness/anxiousness. Pertinent negatives for diabetes include no chest pain, no fatigue, no polydipsia, no polyphagia, no polyuria and no weakness. Hyperlipidemia Pertinent negatives include no chest pain or shortness of breath. Hypertension Pertinent negatives include no chest pain, headaches, palpitations or shortness of breath. Cough Pertinent negatives include no chest pain, ear pain, fever, headaches, rash, sore throat, shortnessof breath or wheezing. 1. History of tricuspid and mitral valve repair. She has been on Eliquis for quite some time. In April she had an episode of bright red blood per rectum with evaluation subsequently suggesting diverticulosis with diverticular bleed. She has had no bleeding since then. She remains on Eliquis. 2. History of diabetes mellitus type 2 A1c today 7.3% using metformin and glimepiride. 3. History of chronic kidney disease with creatinine near 1.0. 4. History of chronic diastolic heart failure follows with cardiology, has no s/s of cad. 5. History of hypertension on medication 6. Cough has had a cough x 1 year, not produtive. Past Surgical History: Procedure Laterality Date HYSTERECTOMY [...] Conjugate, Unspecified 01/15/2015 Pneumococcal Polysaccharide PPV23 01/15/2015 Current Outpatient Medications Medication Sig acetaminophen (TYLENOL) [...] or liedown for the next 30 min. blood glucose diagnostic (glucose blood) strip Use to test blood sugar once daily DX: E11.9 non insulin dependent (True Metrix) blood-glucose meter (True Metrix Glucose Meter) misc Use to test blood sugar once daily DX: E11.9 non insulin dependent carvediloL (COREG) 25 mg tablet Take 1 tablet (25 mg total) by mouth 2 (two) times a day with meals Eliquis 2.5 mg tablet Take 1 tablet by mouth twice daily fenofibrate (TRIGLIDE) 160 mg tablet TAKE 1 TABLET EVERY DAY furosemide (LASIX) 20 mg tablet Take 1 tablet (20 mg total) by mouth daily lancets 33 gauge misc Use to test blood sugar once daily DX: E11.9 non insulin dependent. losartan (COZAAR) 100 mg tablet Take 1 tablet (100 mg total) by mouth daily metFORMIN (GLUCOPHAGE) 500 mg tablet Take 1 tablet (500 mg total) by mouth 2 (two) times a day withmeals mirtazapine (REMERON) 7.5 mg tablet Take 1 tablet (7.5 mg total) by mouth nightly potassium chloride ER (potassium chloride ER) 20 mEq CR tablet Take 1 tablet (20 mEq total) by mouth daily pravastatin (PRAVACHOL) 40 mg tablet TAKE 1 TABLET EVERY DAY senna-docusate (PERICOLACE) 8.6-50 mg Take 1 tablet by mouth daily for 14 days (Patient not taking:Reported on 05/25/2021) tiotropium bromide (SPIRIVA RESPIMAT) 2.5 mcg/actuation inhaler Inhale 2 puffs daily zolpidem (AMBIEN) 5 mg tablet TAKE 1 TABLET BY MOUTH NIGHTLY NEEDED FOR SLEEP Review of Systems Constitutional: Negative for appetite change, fatigue, fever and unexpected weight change. HENT: Negative for ear pain, hearing loss and sore throat. Eyes: Negative for visual disturbance. Respiratory: Positive for cough. Negative for shortness of breath and wheezing. Cardiovascular: Negative [...] past 24 hrs: BP Pulse Height Weight 01/19/22 1130 (!) 205/90 69 154.9 cm (5' 1 ) 67.1 kg (148 lb) Wt Readings from Last 3 Encounters: 01/19/22 67.1 kg (148 lb) 11/30/21 66 kg (145 lb 9.6 oz) 09/10/21 63.5 kg (140 lb) Physical Exam Vitals [...] complication, without long-term current use of insulin ([facility] ([facility]) (E11.9) (Primary) Comments: doing well Orders: - POCT glucose - POCT hemoglobin A1c Hyperlipidemia, unspecified hyperlipidemia type (E78.5) - POCT lipid panel Dyslipidemia (E78.5) HTN (hypertension), benign (I10) Pulmonary hypertension ([facility]) ([facility]) (I27.20) Comments: stable S/P mitral valve repair (Z98.890) Tricuspid valve disorder (I07.9) Cough, unspecified type (R05.9) Comments: will do cxr Labs Lab Results Component Value Date HGBA1C 7.3 01/19/2022 Lab Results Component Value Date POCCHOL 192 01/19/2022 POCCHOL 111 09/10/2021 Lab Results Component Value Date POCHDL 51 01/19/2022 POCHDL 58 09/10/2021 POCHDL 31 09/30/2020 Lab Results Component Value Date POCLDL 100 01/19/2022 POCLDL 39 09/10/2021 POCLDL n/a 09/30/2020 Lab Results Component Value Date POCTRIG 208 01/19/2022 POCTRIG 69 09/10/2021 POCTRIG 63 09/30/2020 No results found for: A1C Lab Results Component Value Date CREATININE 1.06 (H) 09/10/2021 CREATININE 0.82 05/22/2021 CREATININE 0.80 05/21/2021 Lab Results Component Value Date COLORU Straw 05/09/2021 CLARITYU Clear 05/09/2021 GLUCOSEUR Negative 05/09/2021 BILIRUBINUR Negative 05/09/2021 KETONESU Negative 05/09/2021 SPECGRAVU 1.024 05/09/2021 BLOODUR Trace (A) 05/09/2021 UROBILINOGEN <2.0 05/09/2021 Mehul Verdugo MD SERVICE COUNTER CLERK documented in this encounter Plan of Treatment Not on file documented as of this encounter Procedures Procedure Name Priority Date/Time Associated Diagnosis Comments POCT GLUCOSE 87812 Routine 01/19/2022 12 :22 PM FOOD SERVICE COUNTER CLERK Type 2 diabetes mellitus without complication, without long-term current use of insulin ([facility]/HCC) (HCC) POCT HEMOGLOBIN A1C Routine 01/19/2022 1 2:22 PM FOOD SERVICE COUNTER CLERK Type 2 diabetes mellitus without complication, without long-term current use of insulin ([facility]) (HCC) POCT LIPID PANEL Routine 01/19/2022 12:2 2 PM FOOD SERVICE COUNTER CLERK Hyperlipidemia, unspecified hyperlipidemia type documented in this encounter Results * XR Chest Pa Lateral 2 Vw (01/19/2022 1:37 PM FOOD SERVICE COUNTER CLERK) Anatomical Region Laterality Modality Body, Chest N/A Computed Radiogr aphy 01/19/2022 2:40 PM FOOD SERVICE COUNTER CLERK Impressions 01/19/2022 5:31 PM FOOD SERVICE COUNTER CLERK The current study is compared with the prior radiograph dated 05/09/2021. There are postsurgical changes of median sternotomy and mitral and tricuspid valve annuloplasty. 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 The lungs are clear. There is no focal consolidation or pulmonary edema. There is no pneumothorax or pleural effusion. The heart and mediastinal contours are stable. Lower thoracic compression deformities with kyphoplasty changes are again seen. Dictated by: Bambi Chang M.D. The radiology attending physician has personally reviewed this study, and had reviewed and/or edited this written report and agrees with it. Electronically signed by: Celso Martinez M.D. Narrative 01/19/2022 5:31 PM FOOD SERVICE COUNTER CLERK EXAMINATION: 2 view chest radiograph Procedure Note Celso Martinez MD PhD - 01/19/2022 EXAMINATION: 2 view chest radiograph IMPRESSION: The current study is compared with the prior radiograph dated 05/09/2021. There are postsurgical changes of median sternotomy and mitral and tricuspid valve annuloplasty. 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 The lungs are clear. There is no focal consolidation or pulmonary edema. There is no pneumothorax or pleural effusion. The heart and mediastinal contours are stable. Lower thoracic compression deformities with kyphoplasty changes are again seen. Dictated by: Bambi Chang M.D. The radiology attending physician has personally reviewed this study, and had reviewed and/or edited this written report and agrees with it. Electronically signed by: Celso Martinez M.D. us Mehul Verdugo MD IMG XR PROCEDURES Final Resul t * (ABNORMAL) POCT hemoglobin A1c (01/19/2022 12:22 PM FOOD SERVICE COUNTER CLERK) Hemoglobin A1C, POC 7.3 Capillary blood 01/19/2022 1 2:22 PM FOOD SERVICE COUNTER CLERK us Mehul Verdugo MD POINT OF CARE TEST ORDERABLES Final Result * POCT lipid panel (01/19/2022 12:22 PM FOOD SERVICE COUNTER CLERK) Cholesterol, POC 192 mg/dL HDL, POC 51 mg/dL Triglycerides, POC 208 mg/dL LDL Cholesterol POC 100 mg/dL Capillary blood 01/19/2022 1 2:22 PM FOOD SERVICE COUNTER CLERK us Mehul Verdugo MD POINT OF CARE TEST ORDERABLES Final Result * (ABNORMAL) POCT glucose (01/19/2022 12:22 PM FOOD SERVICE COUNTER CLERK) Glucose Blood, POC 196 mg/dL Blood 01/19/2022 12:2 2 PM FOOD SERVICE COUNTER CLERK Result Mary Verdugo MD POINT OF CARE TEST ORDERABLES Final Result documented in this encounter Visit Diagnoses Diagnosis Type 2 diabetes mellitus without complication, without long-term current use of insulin ([facility]) (HCC)- Primary Hyperlipidemia, unspecified hyperlipidemia type Dyslipidemia Other and unspecified hyperlipidemia HTN (hypertension), benign Essential hypertension, benign Pulmonary hypertension (HCC) Other chronic pulmonary heart diseases S/P mitral valve repair Other postprocedural status Tricuspid valve disorder Tricuspid valve disorders, specified as nonrheumatic Cough, unspecified type Cough, unspecified type documented in this encounter Care Teams Fisher Swordfish Relationship Specialty Start Date End Date Mehul Verdugo MD [address] [facility] [address] [place] [address] PCP - General Internal Medicine 09/10/21 Paulette Geller MD [address] [place] [address] Consulting Physician Gastroenterology 05/22/21 documented as of this encounter
--- OUTSIDE RECORDS SUMMARY | 2024-02-28 15:35 | XMS_ITS | Encounter Summary ---
Author Organization [facility] Address [address] [place] [address] Care Team Providers Care Alliance Director Name Role Phone Paulette Geller MD Unavailable + Mehul Verdugo MD Primary Care Provider Encounter Details Date Type Department Care Team (Late st Contact Info) Description 01/27/2022 [facility] [address] [facility] [address] [place] [address] Mehul Verdugo MD [address] [facility] [address] [place] [address] Social History Tobacco Use Types [...] on file Legal Sex Female 11:30 PM VACCINE CUSTOMER REPRESENTATIVE Gender Identity Female 06/15/2023 1:45 PM CDT Sexual Orientation Straight 06/15/2023 1: 45 PM CDT documented as of this encounter Miscellaneous Notes * Telephone Encounter - Nella Markham MA - 01/27/2022 11:40 AM CST Pt aware/mk INE CUSTOMER REPRESENTATIVE * Telephone Encounter - Nella Markham MA - 01/27/2022 11:40 AM CST ----- Message from Meuhl Verdugo MD sent at 01/24/2022 3:52 PM VACCINE CUSTOMER REPRESENTATIVE ----- No etiology for cough INE CUSTOMER REPRESENTATIVE documented in this encounter Plan of Treatment Not on file documented as of this encounter Visit Diagnoses Not on filedocumented in this encounter Care Teams Alliance Director Relationship Specialty [place] [address] [place] [address] [address] [place] [address] PCP - General Internal Medicine 09/10/21 Paulette Geller MD [address] [place] [address] Consulting Physician Gastroenterology 05/22/21 documented as of this encounter
--- OUTSIDE RECORDS SUMMARY | 2024-02-28 15:35 | XMS_ITS | Encounter Summary ---
Author Organization [facility] Address [address] [place] [address] Care Team Providers Care Restaurant Inspector Name Role Phone Paulette Geller MD Unavailable + Mehul Verdugo MD Primary Care Provider [phone] Encounter Details Date Type Department Care Team (Late st Contact Info) Description 03/22/2022 [facility] [address] [facility] [address] [place] [address] Mehul Verdugo MD [address] [facility] [address] [place] [address] Social History Tobacco Use Types [...] on file Legal Sex Female 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 THERAPIST [employer] Gender Identity Female 06/15/2023 1:45 PM CDT Sexual Orientation Straight 06/15/2023 1: 45 PM CDT documented as of this encounter Plan of Treatment Not on file documented as of this encounter Procedures Procedure Name Priority Date/Time Associated Diagnosis Comments CARDIOLOGY DOCUMENT SCAN 03/22/2022 6:30 PM MUSIC THERAPIST [employer] SCAN - RADIOLOGY/IMAGING 03/22/2022 1:32 PM MUSIC THERAPIST [employer] SCAN - RADIOLOGY/IMAGING 03/22/2022 1:27 PM MUSIC THERAPIST [employer] SCAN - RADIOLOGY/IMAGING 03/21/2022 2:11 PM MUSIC THERAPIST [employer] SCAN - RADIOLOGY/IMAGING 023 12:54 PM MUSIC THERAPIST [employer] documented in this encounter Results * CARDIOLOGY DOCUMENT SCAN (03/22/2022 6:30 PM MUSIC THERAPIST [employer]) Anatomical Region Laterality Modality Other us Mehul Verdugo MD CV CARDIAC SERVICES PROCEDURE S Final Result * SCAN - RADIOLOGY/IMAGING (03/22/2022 1:32 PM MUSIC THERAPIST [employer]) Anatomical Region Laterality Modality Other us Mehul Verdugo MD Final Result * SCAN - RADIOLOGY/IMAGING (03/22/2022 1:27 PM MUSIC THERAPIST [employer]) Anatomical Region Laterality Modality Other us Mehul Verdugo MD Final Result * SCAN - RADIOLOGY/IMAGING (03/21/2022 2:11 PM MUSIC THERAPIST [employer]) Anatomical Region Laterality Modality Other us Mehul Verdugo MD Final Result * SCAN - RADIOLOGY/IMAGING (03/21/2022 12:54 PM MUSIC THERAPIST [employer]) Anatomical Region Laterality Modality Other us Mehul Verdugo MD Final Result documented in this encounter Visit Diagnoses Not on filedocumented in this encounter Care Teams Restaurant Inspector Relationship Specialty Start Date End Date Mehul Verdugo MD [address] [facility] [address] [place] [address] PCP - General Internal Medicine 09/10/21 Paulette Geller MD [address] [place] [address] Consulting Physician Gastroenterology 05/22/21 documented as of this encounter
--- OUTSIDE RECORDS SUMMARY | 2024-02-28 15:35 | XMS_ITS | Encounter Summary ---
Author Organization [facility] Healthcare Address [address] [place] [address] Care Team Providers Care Proctologist Name Role Phone Haris Lauren MD Primary Care Provider Encounter Details Date Type Department Care Team (Late st Contact Info) Description 05/21/2021 Documentation [facility] [address] [facility] 3rd Floor [address] [place] [address] Shira Devine NP [address] [facility] [id number] [place] [address] Social History Tobacco Use Types Packs/Day Years [...] on file Legal Sex Female 11:30 PM FABRIC AND ACCESSORIES ESTIMATOR Gender Identity Female 06/15/2023 1:45 PM CDT Sexual Orientation Straight 06/15/2023 1: 45 PM CDT documented as of this encounter Progress Notes * Shira Devine NP - 05/21/2021 10:32 AM CDT Reviewed surgical pathology Acute on chronic cholecystitis with cholelithiasis - One benign pericystic lymph node ? documented in this encounter Plan of Treatment Not on file documented as of this encounter Visit Diagnoses Not on filedocumented in this encounter Care Teams Proctologist Relationship Specialty Start Date End Date Haris Lauren MD PCP - General Family Medicine 12/31/20 06/07/21 documented as of this encounter
--- OUTSIDE RECORDS SUMMARY | 2024-02-28 15:35 | XMS_ITS | Encounter Summary ---
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 Name Role Phone Paulette Geller MD Unavailable + Mehul Verdugo MD Primary Care Provider [phone] Reason for Visit * Reason Comments New Patient Anxiety Hypertension Hyperlipidemia Diabetes Sleeping Problem Encounter Details Date Type Department Care Team (Late st Contact Info) Description 09/10/2021 10:00 AM CDT Office Visit [facility] [address] [facility] [address] [facility] [place] [address] Mehul Verdugo MD [address] [facility] [address] [place], [place] [id number] Type 2 diabetes mellitus without complication, without long-term current use of insulin (CMS/HCC) (HCC) (Primary Dx); Hyperlipidemia, unspecified hyperlipidemia type; Dyslipidemia; HTN (hypertension), benign; Pulmonary hypertension (CMS/HCC) (HCC); S/P mitral valve repair; Tricuspid valve disorder; Cerebrovascular accident (CVA) due to occlusion of other cerebral artery (HCC); Primary insomnia; Age-related osteoporosis without current pathological fracture Social History Tobacco Use Types Packs/Day Years [...] on file 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 Gender Identity Female 06/15/2023 1:45 PM CDT Sexual Orientation Straight 06/15/2023 1: 45 PM CDT documented as of this encounter Last Filed Vital Signs Vital Sign Reading Time Taken Comments Blood Pressure 133/72 09/10/2021 10:30 AM CDT Pulse 66 09/10/2021 10:30 AM CDT Temperature - - Respiratory Rate - - Oxygen Saturation - - Inhaled Oxygen Concentration - - Weight 63.5 kg (140 lb) 09/10/2021 10:30 AM CDT Height 154.9 cm (5' 1 ) 09/10/2021 10:30 AM CDT Body Mass Index 26.45 09/10/2021 10:30 AM CDT documented in this encounter Ordered Prescriptions Prescription Sig Dispense Quantity Refills Last Filled Start Date End Date mirtazapine (REMERON) 7.5 mg tablet Take 1 tablet (7.5 mg total) by mouth nightly 30 tablet 2 09/10/2021 2 varicella-zoster (SHINGRIX) 50 mcg/0.5 mL vaccine Inject 0.5 mL into the muscle as instructed once for 1 dose 0.5 mL 1 09/10/2021 2 pneumococcal 20-valent (PREVNAR 20) 0.5 mL vaccine Inject 0.5 mL into the muscle as instructed once for 1 dose 0.5 mL 09/10/2021 2 documented in this encounter Progress Notes * Mehul Verdugo MD - 09/10/2021 10:00 AM CDT Images from the original note were not included. Subjective/Objective Patient ID: Yuliana Johnson is a 80 y.o. female. Chief Complaint New Patient, Anxiety, Hypertension, Hyperlipidemia, Diabetes, and Sleeping Problem HPI Patient here is a new patient to establish. Has the following medical problems 1. History of tricuspid and mitral valve repair. She has been on Eliquis for quite some time. In April she had an episode of bright red blood per rectum with evaluation subsequently suggesting diverticulosis with diverticular bleed. She has had no bleeding since then. She remains on Eliquis. 2. History of diabetes mellitus type 2 A1c today 6.5% using metformin and glimepiride. 3. History of chronic kidney disease with creatinine near 1.0. 4. History of chronic diastolic heart failure follows with cardiology 5. History of hypertension on medication 6. History of stroke possibly embolic 7. History of anxiety the patient's reports that she frequently walks at night without sleeping she may not go to bed until 4:00 a.m.. She subsequently sleeps intermittently throughout the day. She admits that she has some anxiety but has never been previously treated for anxiety. Past Surgical History: Procedure Laterality Date ??? HYSTERECTOMY ??? KYPHOPLASTY THORACIC N/A 05/23/2020 ??? MASTECTOMY Left ??? MITRAL VALVE REPAIR Family History Problem Relation Age of Onset ??? Alcohol abuse Mother ??? Alcohol abuse Father ??? Hypertension Maternal Grandfather Family history of hypertension - Relation: Grandfather (Added by TW Conv)/Family history of hypertension - Relation: Grandfather (Added by TW Conv) ??? Hypertension Other Family history of hypertension - Relation: Grandmother (Added by TW Conv) ??? Hypertension Other Family history of hypertension - Relation: Grandmother (Added by TW Conv) Social History Tobacco Use ??? Smoking status: Never Smoker ??? Smokeless tobacco: Never Used Substance and Sexual Activity ??? Drug use: No ??? Sexual activity: Defer Alcohol Use: Not on file Immunization History Administered Date(s) Administered ??? Influenza, Trivalent, Adjuvanted, Intramuscular 12/13/2017, 12/14/2017 ??? Influenza, Trivalent, High Dose, Split, Preservative Free, Intramuscular 02/09/2019 ??? Influenza, Unspecified 01/15/2015, 12/17/2020 ??? Pneumococcal Conjugate PCV 13 08/21/2016 ??? Pneumococcal Conjugate, Unspecified 01/15/2015 ??? Pneumococcal Polysaccharide PPV23 01/15/2015 Current Outpatient Medications Medication Sig ??? pravastatin (PRAVACHOL) 40 mg tablet TAKE 1 TABLET EVERY DAY ??? acetaminophen (TYLENOL) 325 mg tablet Take 2 tablets (650 mg total) by mouth every 4 (four) hours as needed for pain or headaches ??? alendronate (FOSAMAX) 70 mg tablet Take 1 tablet (70 mg total) by mouth every 7 days Take in the morning with a full glass of water, on an empty stomach, and do not take anything else by mouth orlie down for the next 30 min. ??? blood glucose diagnostic (glucose blood) strip Use to test blood sugar once daily DX: E11.9 noninsulin dependent (True Metrix) ??? blood-glucose meter (True Metrix Glucose Meter) misc Use to test blood sugar once daily DX: E11.9 non insulin dependent ??? carvediloL (COREG) 25 mg tablet Take 1 tablet (25 mg total) by mouth 2 (two) times a day with meals ??? fenofibrate (TRIGLIDE) 160 mg tablet TAKE 1 TABLET EVERY DAY ??? furosemide (LASIX) 20 mg tablet Take 1 tablet (20 mg total) by mouth daily ??? lancets 33 gauge misc Use to test blood sugar once daily DX: E11.9 non insulin dependent. ??? losartan (COZAAR) 100 mg tablet Take 1 tablet (100 mg total) by mouth daily ??? metFORMIN (GLUCOPHAGE) 500 mg tablet Take 1 tablet (500 mg total) by mouth 2 (two) times a day with meals ??? pneumococcal 20-valent (PREVNAR 20) 0.5 mL vaccine Inject 0.5 mL into the muscle as instructed once for 1 dose ??? potassium chloride ER (potassium chloride ER) 20 mEq CR tablet Take 1 tablet (20 mEq total) by mouth daily ??? senna-docusate (PERICOLACE) 8.6-50 mg Take 1 tablet by mouth daily for 14 days (Patient not taking: Reported on 05/25/2021) ??? tiotropium bromide (SPIRIVA RESPIMAT) 2.5 mcg/actuation inhaler Inhale 2 puffs daily ??? varicella-zoster (SHINGRIX) 50 mcg/0.5 mL vaccine Inject 0.5 mL into the muscle as instructed once for 1 dose Review of Systems Constitutional: Negative for appetite [...] for adenopathy. Does not bruise/bleed easily. Psychiatric/Behavioral: Positive for agitation. Negative for dysphoric mood. The patient is not nervous/anxious. Breast: Negative for tenderness and lump(s). Patient Vital Signs for the past 24 hrs: BP Pulse Height Weight 09/10/21 1030 133/72 66 154.9 cm (5' 1 ) 63.5 kg (140 lb) Wt Readings from Last 3 Encounters: 09/10/21 63.5 kg (140 lb) 05/27/21 62.2 kg (137 lb 1.6 oz) 05/19/21 65.5 kg (144 lb 6.4 oz) Physical Exam Vitals and nursing note [...] complication, without long-term current use of insulin ([facility]) ([facility]) (E11.9) (Primary) Comments: a1c is at target, continue rx Orders: - POCT glucose - POCT hemoglobin A1c Hyperlipidemia, unspecified hyperlipidemia type (E78.5) Comments: lipid reviewed, at target, doing well Orders: - POCT lipid panel Dyslipidemia (E78.5) HTN (hypertension), benign (I10) Comments: doing well Pulmonary hypertension ([facility]) ([facility]) (I27.20) S/P mitral valve repair (Z98.890) Comments: per cardiology, on eliquis Tricuspid valve disorder (I07.9) Cerebrovascular accident (CVA) due to occlusion of other cerebral artery ([facility]) (I63.59) Comments: in 2019 Primary insomnia (F51.01) Comments: with anxiety, consider mirtazipine 7.5 hs Age-related osteoporosis without current pathological fracture (M81.0) Comments: s/p compression fracture. Other orders - pneumococcal 20-valent (PREVNAR 20) 0.5 mL vaccine; Inject 0.5 mL into the muscle as instructed once for 1 dose - varicella-zoster (SHINGRIX) 50 mcg/0.5 mL vaccine; Inject 0.5 mL into the muscle as instructed once for 1 dose Labs Lab Results Component Value Date HGBA1C 6.5 09/10/2021 Lab Results Component Value Date POCCHOL 111 09/10/2021 Lab Results Component Value Date POCHDL 58 09/10/2021 POCHDL 31 09/30/2020 POCHDL 33 04/22/2020 Lab Results Component Value Date POCLDL 39 09/10/2021 POCLDL n/a 09/30/2020 POCLDL 35 04/22/2020 Lab Results Component Value Date POCTRIG 69 09/10/2021 POCTRIG 63 09/30/2020 POCTRIG 168 04/22/2020 No results found for: A1C Lab Results Component Value Date CREATININE 0.82 05/22/2021 CREATININE 0.80 05/21/2021 CREATININE 0.94 05/20/2021 Lab Results Component Value Date COLORU Straw 05/09/2021 CLARITYU Clear 05/09/2021 GLUCOSEUR Negative 05/09/2021 BILIRUBINUR Negative 05/09/2021 KETONESU Negative 05/09/2021 SPECGRAVU 1.024 05/09/2021 BLOODUR Trace (A) 05/09/2021 UROBILINOGEN <2.0 05/09/2021 Mehul Verdugo MD documented in this encounter Plan of Treatment Not on file documented as of this encounter Procedures Procedure Name Priority Date/Time Associated Diagnosis Comments ALBUMIN, RANDOM URINE WITHOUT CREATININE Routine 09/10/2021 11:28 AM CDT Hyperlipidemia, unspecified hyperlipidemia type Dyslipidemia HTN (hypertension), benign Pulmonary hypertension (CMS/HCC) (HCC) S/P mitral valve repair 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 artery (HCC) Primary insomnia Age-related osteoporosis without current pathological fracture CBC WITH AUTO DIFFERENTIAL Routine 09/10/2021 11:28 AM CDT Hyperlipidemia, unspecified hyperlipidemia type Dyslipidemia HTN (hypertension), benign Pulmonary hypertension (CMS/HCC) (HCC) S/P mitral valve repair 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 artery (HCC) Primary insomnia Age-related osteoporosis without current pathological fracture TSH Routine 09/10/2021 11:28 AM CDT Hyperlipidemia, unspecified hyperlipidemia type Dyslipidemia HTN (hypertension), benign Pulmonary hypertension (CMS/HCC) (HCC) S/P mitral valve repair 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 artery (HCC) Primary insomnia Age-related osteoporosis without current pathological fracture COMPREHENSIVE METABOLIC PANEL Routine 09/10/2021 11:28 AM CDT Hyperlipidemia, unspecified hyperlipidemia type Dyslipidemia HTN (hypertension), benign Pulmonary hypertension (CMS/HCC) (HCC) S/P mitral valve repair 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 artery (HCC) Primary insomnia Age-related osteoporosis without current pathological fracture POCT GLUCOSE 18075 Routine 09/10/2021 10 :49 AM CDT Type 2 diabetes mellitus without complication, without long-term current use of insulin (CMS/HCC) ([facility]) POCT HEMOGLOBIN A1C Routine 09/10/2021 1 0:49 AM CDT Type 2 diabetes mellitus without complication, without long-term current use of insulin (CMS/HCC) ([facility]) POCT LIPID PANEL Routine 09/10/2021 10:4 9 AM CDT Hyperlipidemia, unspecified hyperlipidemia type documented in this encounter Results * CBC with auto differential (09/10/2021 11:28 AM CDT) WBC 6.8 3.4 - 10.8 x10E3/uL [facility] - 01 RBC 4.13 3.77 - 5.28 x10E6/uL [facility] - 01 Hgb 12.2 11.1 - 15.9 g/dL [facility] - 01 Hct 37.5 34.0 - 46.6 % [facility] - 01 MCV 91 79 - 97 fL [facility] - 01 MCH 29.5 26.6 - 33.0 pg [facility] - 01 MCHC 32.5 31.5 - 35.7 g/dL [facility] - 01 Rdw 13.0 11.7 - 15.4 % [facility] - 01 Platelets 212 150 - 450 x10E3/uL [facility] - 01 Neutrophils pct 62 Not Estab. % [facility] - 01 Lymphs pct 28 Not Estab. % [facility] - 01 Monocytes pct 7 Not Estab. % [facility] - 01 Eosinophils pct 2 Not Estab. % [facility] - 01 Basophil pct 1 Not Estab. % [facility] - 01 Neutrophil abs 4.2 1.4 - 7.0 x10E3/uL [facility] - 01 Lymphs (Absolute) 1.9 0.7 - 3.1 x10E3/uL [facility] - 01 Monocyte abs 0.5 0.1 - 0.9 x10E3/uL [facility] - 01 Eosinophils, abs 0.1 0.0 - 0.4 x10E3/uL [facility] - 01 Basophils, abs 0.1 0.0 - 0.2 x10E3/uL [facility] - 01 Immature Granulocytes 0 Not Estab. % [facility] - 01 Immature Grans (Abs) 0.0 0.0 - 0.1 x10E3/uL [facility] - 01 Blood specimen (specimen) 09/10/2021 11:28 AM CDT 09/10/2021 Narrative [facility] - 09/11/2021 11:10 AM CDT Performed at: ??01 - [facility] ??[id number] Medical Records Auditor: Axel Hillman PhD, Phone: ??[phone] Mehul Verdugo MD LAB BLOOD ORDERABLES Final Re sult Performing Organization Address [facility] Co de Phone Number [facility] * TSH (09/10/2021 11:28 AM CDT) TSH 3.420 0.450 - 4.500 uIU/mL [facility] - 01 Blood specimen (specimen) 09/10/2021 11:28 AM CDT 09/10/2021 Narrative [facility] - 09/11/2021 11:10 AM CDT Performed at: ?? [facility] ??[id number] Medical Records Auditor: Axel Hillman PhD, Phone: ??[phone] Mehul Verdugo MD LAB BLOOD ORDERABLES Final Re sult Performing Organization Address City/[facility]/ZIP Co de Phone Number [facility] - 01 * Microalbumin, urine, random (09/10/2021 11:28 AM CDT) Pathologist [facility] [place] Microalbumin, ur <3.0 Not Estab. ug/mL [facility] - 01 Comment:Verified by repeat analysis Urine 09/10/2021 11:2 8 AM CDT 09/10/2021 Narrative [facility] - 09/11/2021 11:10 AM CDT Performed at: ?? - [facility] [address] ??[id number] Medical Records Auditor: Axel Hillman PhD, Phone: ??[phone] us Mehul Verdugo MD LAB URINE ORDERABLES Final Re [facility] Performing Organization Address [facility] Co de Phone Number [facility] - * (ABNORMAL) Comprehensive metabolic panel (09/10/2021 11:28 AM CDT) Pathologist [facility] [place] Glucose 120(H) 65 - 99 mg/dL [facility] - 01 BUN 24 8 - 27 mg/dL [facility] - 01 Creatinine, Serum 1.06(H) 0.57 - 1.00 mg/dL [facility] - 01 eGFR 52(L) >59 mL/min/1.7 3 [facility] - 01 BUN/creat ratio 23 12 - 28 [facility] - 01 Sodium 143 134 - 144 mmol/L [facility] - 01 Potassium, sr 4.1 3.5 - 5.2 mmol/L [facility] - 01 Chloride 107(H) 96 - 106 mmol/L [facility] - 01 CO2 20 20 - 29 mmol/L [facility] - 01 Calcium 9.1 8.7 - 10.3 mg/dL [facility] - 01 Protein, sr 6.9 6.0 - 8.5 g/dL [facility] - 01 Albumin 4.0 3.6 - 4.6 g/dL [facility] - 01 Globulin, Total 2.9 1.5 - 4.5 g/dL [facility] - 01 A/G Ratio 1.4 1.2 - 2.2 [facility] - 01 Bilirubin, Total 0.4 0.0 - 1.2 mg/dL [facility] - 01 Alk phos 46 44 - 121 IU/L [facility] - 01 AST 22 0 - 40 IU/L [facility] - 01 ALT 13 0 - 32 IU/L [facility] - 01 Blood specimen (specimen) 09/10/2021 11:28 AM CDT 09/10/2021 Narrative [facility] - 09/11/2021 11:10 AM CDT Performed at: ??01 - [facility] [address] ??[id number] Medical Records Auditor: Axel Hillman PhD, Phone: ??[phone] us Mehul Verdugo MD LAB BLOOD ORDERABLES Final Re sult [facility] - 01 * POCT lipid panel (09/10/2021 10:49 AM CDT) Cholesterol, POC 111 mg/dL HDL, POC 58 mg/dL Triglycerides, POC 69 mg/dL LDL Cholesterol POC 39 mg/dL Capillary blood 09/10/2021 1 0:49 AM CDT us Mehul Verdugo MD POINT OF CARE TEST ORDERABLES Final Result * (ABNORMAL) POCT hemoglobin A1c (09/10/2021 10:49 AM CDT) Hemoglobin A1C, POC 6.5 Capillary blood 09/10/2021 1 0:49 AM CDT us Mehul Verdugo MD POINT OF CARE TEST ORDERABLES Final Result * (ABNORMAL) POCT glucose (09/10/2021 10:49 AM CDT) Glucose Blood, POC 113 mg/dL Blood specimen (specimen) 09/10/2021 10:49 AM CDT Mehul Verdugo MD POINT OF CARE TEST ORDERABLES Final Result documented in this encounter Visit Diagnoses Diagnosis Type 2 diabetes mellitus without complication, without long-term current use of insulin (CMS/HCC) (HCC)- Primary Hyperlipidemia, unspecified hyperlipidemia type Dyslipidemia Other and unspecified hyperlipidemia HTN (hypertension), benign Essential hypertension, benign Pulmonary hypertension (HCC) Other chronic pulmonary heart diseases S/P mitral valve repair Other postprocedural status Tricuspid valve disorder Tricuspid valve disorders, specified as nonrheumatic Cerebrovascular accident (CVA) due to occlusion of other cerebral artery ([facility]) Primary insomnia Persistent disorder of initiating or maintaining sleep Age-related osteoporosis without current pathological fracture documented in this encounter Discontinued Medications Medication Sig Discontinue Reason Start Date End Da te zolpidem (AMBIEN) 10 mg tabletIndications:Sleep- Onset Insomnia Take 10 mg by mouth nightly as needed for sleep Therapy completed 09/10/2021 documented as of this encounter Care Teams 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
--- OUTSIDE RECORDS SUMMARY | 2024-02-28 15:35 | XMS_ITS | Encounter Summary ---
Author Organization [facility] Healthcare Address [address] [place] [address] Care Team Providers Care Waredresser Name Role Phone Braydon Lombardi MD Primary Care Provider [phone] Paulette Calderon MD Unavailable + Reason for Visit * Reason Comments Black or Bloody Stool Encounter Details Date Type Department Care Team (Late st Contact Info) Description 05/19/2021 3:43 PM CDT - 05/22/2021 12:06 PM CDT Emergency [facility] [address] [place] [address] Vic Farnsworth MD [address] [place] [address] Denzel Rai MD [address] [place] [address] Brant Mayorga MD [address] [place] [address] Bright red blood per rectum (Primary Dx); Type 2 diabetes mellitus with other neurologic complication, without long-term current use of insulin (HCC); CVA, old, cognitive deficits Discharge Disposition: Discharge to home or self care Social History Tobacco Use Types Packs/Day Years [...] on file 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 Gender Identity Female 06/15/2023 1:45 PM CDT Sexual Orientation Straight 06/15/2023 1: 45 PM CDT documented as of this encounter Last Filed Vital Signs Vital Sign Reading Time Taken Comments Blood Pressure 157/71 05/22/2021 8:41 AM CDT Pulse 83 05/22/2021 8:41 AM CDT Temperature 36.5 ??C (97.7 ??F) 05/22/2021 8:41 AM CD T Respiratory Rate 20 05/22/2021 8:41 AM CDT Oxygen Saturation 100% 05/22/2021 8:41 AM CDT Inhaled Oxygen Concentration - - Weight 65.5 kg (144 lb 6.4 oz) 05/19/2021 9:44 P M CDT Height 154.9 cm (5' 0.98 ) 05/19/2021 9:44 PM CD T Body Mass Index 27.3 05/19/2021 9:44 PM CDT documented in this encounter Discharge Diagnoses Diagnosis Melena - MELENA Blood in stool Hypertensive heart and chronic kidney disease with heart failure and stage 1 through stage 4 chronic kidney disease, or unspecified chronic kidney disease (HCC) - HYPERTENSIVE HEART AND CHRONIC KIDNEY DISEASE WITH HEART FAILURE AND STAGE 1 THROUGH STAGE 4 CHRONIC Chronic diastolic (congestive) heart failure (HCC) - CHRONIC DIASTOLIC (CONGESTIVE) HEART FAILURE Type 2 diabetes mellitus with diabetic chronic kidney disease (HCC) - TYPE 2 DIABETES MELLITUS WITH DIABETIC CHRONIC KIDNEY DISEASE Chronic kidney disease, unspecified - CHRONIC KIDNEY DISEASE, UNSPECIFIED Calculus of gallbladder without cholecystitis without obstruction - CALCULUS OF GALLBLADDER WITHOUT CHOLECYSTITIS WITHOUT OBSTRUCTION Personal history of transient ischemic attack (TIA), and cerebral infarction without residual deficits - PERSONAL HISTORY OF TRANSIENT ISCHEMIC ATTACK (TIA), AND CEREBRAL INFARCTION WITHOUT RESIDUAL DEFICI terminal supervisor (current) use of anticoagulants - ALF (CURRENT) USE OF ANTICOAGULANTS Long-term (current) use of anticoagulants terminal supervisor (current) use of oral hypoglycemic drugs - ALF (CURRENT) USE OF ORAL HYPOGLYCEMIC DRUGS Other middle or intermediate school principal (current) drug therapy - OTHER ERP CONSULTANT (CURRENT) DRUG THERAPY documented in this encounter Discharge Summaries * Brant Mayorga MD - 05/22/2021 12:06 PM CDT Inpatient Discharge Summary BRIEF OVERVIEW Admitting Provider: Denzel Mandujano MD Discharge Provider: No att. providers found Primary Care Physician at Discharge: Braydon Lombardi MD [phone] Admission Date: 05/19/2021 Discharge Date: 05/22/2021 Admission Location: [facility] Problems/Diagnoses: Principal Problem: Bright red blood per rectum Active Problems: Type 2 diabetes mellitus (HCC) HTN (hypertension), benign S/P mitral valve repair CVA (cerebral vascular accident) (CMS/HCC) (HCC) Calculus of gallbladder without cholecystitis without obstruction Chronic diastolic heart failure (CMS/HCC) (HCC) CKD (chronic kidney disease) Resolved Problems: No resolved hospital problems. DETAILS OF HOSPITAL STAY Presenting Problem/History of Present Illness: 80F with T2DM, pHTN, HTN, CVA??on Eliquis, MV/TV??repair (annuloplasty??2014), s/p CCK 05/11 p/w??BRBPR. ?? Per , she had 3 frankly bloody BM today. She was mentating well at home without falls or syncope, but upon arrival to hospital, became a bit more confused. She was saying I don't know to a lot of questions which is atypical for her. However, later on she was back to baseline per . No history of GIB or other bleeds on eliquis. Last BM in ED was without blood. Last eliquis dose admission day AM. ?? Was recently here in early April for RLQ pain, found to have cholecystitis, s/p CCK on 05/11. OR cultures eventually grew out vásquez sensitive Streptococcus anginosus . She was given 4 days of augmentin after discharge. Denied abd pain, N/V, fever. Lap sites healing well. ?? In the ED, vitals were: AFVSS Labs significant for: Cr 1 (baseline), Hgb 11.4 (12.4 a few days ago) Interventions: none Hospital Course: Bright red blood per rectum/hematochezia P/w 3x BRBPR 05/19. Hgb 11.4 (12.4 a few days ago). Last eliquis dose 05/19 AM which was held on admission. CT a/p in 04/2021 with pancolonic diverticulosis, presumably diverticular bleed. CBC was monitored q12 hours. avoided IVF d/t diastolic heart failure. Was on clear liq diet in anticipation of procedure and the diet as advanced. Had 2 episodes of BM 04/23without any visible blood. Monitored cbc, last Hb 10.7<11.3<10.9<10.9<10.3<11.4<12.4. Will resume Eliquis as outpatient as the Hb is still not at baseline. Restarted on Coreg and losartan, amlodipine and Eliquis will remain on hold. CKD (chronic kidney disease) Cr 1 (baseline). avoid nephrotoxins. Monitor renal function Chronic diastolic heart failure (CMS/HCC) (HCC) EF 69% but pseudonormal diastolic function on TTE 2020. Held lasix and was resumed on discharge Calculus of gallbladder without cholecystitis without obstruction Was recently here in early April for RLQ pain, found to have cholecystitis, s/p CCK on 05/11. OR cultures eventually grew out vásquez sensitive Streptococcus anginosus . She was given 4 days of augmentin after discharge. no signs of infection or abd pain CVA (cerebral vascular accident) (CMS/HCC) (HCC) On eliquis (CVA thought to be embolic in nature) and statin only. Held eliquis Continued on statin S/P mitral valve repair 2005 annuloplasty. TTE 2020 without issues HTN (hypertension), benign Held amlodipine, coreg, losartan d/t GIB. Monitored vitals. Resumed on Coreg and losartan on discharge Type 2 diabetes mellitus (HCC) A1C 5.9%. held home metformin, glimepride. Monitor blood glucose AC and HS. Was on Low-dose SSI. Continue home meds on discharge. Active Issues Requiring Follow-up: Follow-up with GI as outpatient for EGD/colonoscopy as OP Test Results Pending at Discharge: Operative Procedures Performed: Other Procedures: Pertinent Test Results: Hb 10.7 Discharge Details Physical Exam at Discharge: Discharge Condition: good Pulse: 83 Resp: 20 BP: 157/71 Temp: 36.5 ??C (97.7 ??F) Weight: 65.5 kg (144 lb 6.4 oz) Pertinent Exam Findings at Discharge: Constitutional: NAD, well developed Eyes: PERRL, EOMI, anicteric ENT: NCAT, oropharynx normal, moist mucus membranes Lungs: Clear to auscultation in all lung salazar, unlabored Cardiovascular: normal S1 and S2 GI: Soft, non-tender, non-distended, bowel sounds + Skin: No new rashes, lesions or bruises on visible skin Extremities: Normal without edema or cyanosis Neurologic: AOx4, CNII-XII intact, normal strength and sensation Psychiatric: Flat affect and mood I have reviewed the patient's vital signs. Discharge Disposition: Discharge to home or self care Code Status at Discharge: full Discharge Instructions: Activity Instructions Discharge activity: Resume normal activity As tolerated Diet Instructions Adult Discharge Diet Diet Type: Return to previous diet Other Instructions Call provider for: Temperature -Temperature greater than 101 degrees F Call provider for: difficulty breathing or chest pain Call provider for: extreme fatigue Call provider for: hives Call provider for: persistent dizziness or light-headedness Call provider for: persistent nausea or vomiting Call provider for: redness, tenderness, or signs of infection (pain, swelling, redness, odor or green/yellow discharge around incision site) Call provider for: severe uncontrolled pain Call provider for: headache, visual disturbances, weakness and speech changes Contact clinic prior to visit if COVID positive If you are positive for Covid, please contact the clinic prior to your appointment for further coordination of your care Special Instructions Discharge Medications: Current Medications TAKE these medications acetaminophen 325 mg tablet Take 2 tablets (650 mg total) by mouth every 4 (four) hours as needed for pain or headaches For: fever, pain Commonly known as: TYLENOL Notes to patient: pain alendronate 70 mg tablet Take 1 tablet (70 mg total) by mouth every 7 days Take in the morning with a full glass of water, on an empty stomach, and do not take anything else by mouth or lie down for the next 30 min. Commonly known as: FOSAMAX carvediloL 25 mg tablet Take 1 tablet (25 mg total) by mouth 2 (two) times a day with meals Commonly known as: COREG Notes to patient: Blood pressure and heart rate fenofibrate 160 mg tablet Take 1 tablet (160 mg total) by mouth daily Commonly known as: TRIGLIDE furosemide 20 mg tablet Take 1 tablet (20 mg total) by mouth daily Commonly known as: LASIX losartan 100 mg tablet Take 1 tablet (100 mg total) by mouth daily Commonly known as: COZAAR metFORMIN 500 mg tablet Take 1 tablet (500 mg total) by mouth 2 (two) times a day with meals Commonly known as: GLUCOPHAGE ondansetron 4 mg tablet Take 1 tablet (4 mg total) by mouth every 8 (eight) hours as needed for nausea or vomiting Commonly known as: Zofran pravastatin 40 mg tablet Take 1 tablet (40 mg total) by mouth daily Commonly known as: PRAVACHOL senna-docusate 8.6-50 mg Take 1 tablet by mouth daily for 14 days Commonly known as: PERICOLACE tiotropium bromide 2.5 mcg/actuation inhaler Inhale 2 puffs daily Commonly known as: SPIRIVA RESPIMAT zolpidem 10 mg tablet Take 10 mg by mouth nightly as needed for sleep For: difficulty falling asleep Commonly known as: BEAUIEN Outpatient Follow-Up: Future Appointments Date Time Provider Department Center 05/27/2021 9:15 AM Braydon Lombardi MD [facility]CP [facility] 07/01/2021 10:30 AM Braydon Lombardi MD [facility]CP [facility] 11/30/2021 10:15 AM Sp [place] MD [facility] Cardiology 12/31/2021 11:00 AM Braydon Lombardi MD [facility]CP [facility] Contact Information for Follow-ups Braydon Lombardi MD Specialty: Family Medicine Relationship: PCP - [facility] [address] [place] [facility] [id number] Next Steps: Follow up Instructions: May 27 at 9:15 am Paulette Calderon MD Specialty: Gastroenterology, Internal Medicine Relationship: Consulting Physician Del SUMMERS [address] [facility] [address] Next Steps: Follow up Instructions: follow-up in 1 week and as scheduled. call for appointment. Questions: To provider: PAULETTE CALDERON Instructions for follow-up (appointment date and time): follow-up in 1 week and as scheduled. call for appointment. Braydon Lombardi MD Specialty: Family Medicine [address] [place] [address] [address] [facility] [address] Next Steps: Follow up Instructions: follow-up as scheduled and in 1 week prior to resuming Eliquis/ blood thinner Questions: Instructions for follow-up (appointment date and time): follow-up as scheduled and in 1 week prior to resuming Eliquis/ blood thinner To provider: BRAYDON LOMBARDI documented in this encounter Discharge Instructions * Appointments* Patricia Ellsworth RN - 05/21/2021 2:36 PM CDT This is the earliest appointment with your PCP, May 27 at 9:15 am Please bring discharge paperwork with list of medicines, insurance card and photo ID to appointment. Please arrive at least 15 minutes early prior to appointment. If you are unable to keep this appointment, it is very important you call to reschedule. documented in this encounter Medications at Time of Discharge acetaminophen (TYLENOL) 325 mg tabletIndication s:Fever,Pain Take 2 tablets (650 mg total) by mouth every 4 (four) hours as needed for pain or headaches 20 tablet 05/22/2021 alendronate (FOSAMAX) 70 mg tablet Take 1 tablet (70 mg total) by mouth every 7 days Take in the morning with a full glass of water, on an empty stomach, and do not take anything else by mouth or lie down for the next 30 min. 12 tablet 3 03/26/2021 alendronate (FOSAMAX) 70 mg tablet Take 1 tablet (70 mg total) by mouth every 7 days Take in the morning with a full glass of water, on an empty stomach, and do not take anything else by mouth or lie down for the next 30 min. 12 tablet 1 05/25/2021 4 carvediloL (COREG) 25 mg tablet Take 1 tablet (25 mg total) by mouth 2 (two) times a day with meals 180 tablet 2 03/26/2021 2 carvediloL (COREG) 25 mg tablet Take 1 tablet (25 mg total) by mouth 2 (two) times a day with meals 180 tablet 1 05/25/2021 3 fenofibrate (TRIGLIDE) 160 mg tablet Take 1 tablet (160 mg total) by mouth daily 90 tablet 03/26/2021 2 furosemide (LASIX) 20 mg tablet Take 1 tablet (20 mg total) by mouth daily 30 tablet 11 05/18/2021 2 losartan (COZAAR) 100 mg tabletIndication s:Type 2 diabetes mellitus without complication, without long-term current use of insulin (CMS/HCC) (HCC) Take 1 tablet (100 mg total) by mouth daily 90 tablet 2 03/26/2021 3 metFORMIN (GLUCOPHAGE) 500 mg tablet Take 1 tablet (500 mg total) by mouth 2 (two) times a day with meals 180 tablet 1 03/26/2021 2 metFORMIN (GLUCOPHAGE) 500 mg tablet Take 1 tablet (500 mg total) by mouth 2 (two) times a day with meals 180 tablet 1 05/25/2021 4 ondansetron (Zofran) 4 mg tablet Take 1 tablet (4 mg total) by mouth every 8 (eight) hours as needed for nausea or vomiting 30 tablet 05/14/2021 2 pravastatin (PRAVACHOL) 40 mg tablet Take 1 tablet (40 mg total) by mouth daily 90 tablet 03/26/2021 2 senna-docusate (PERICOLACE) 8.6-50 mg Take 1 tablet by mouth daily for 14 days 14 tablet 05/12/2021 3 tiotropium bromide (SPIRIVA RESPIMAT) 2.5 mcg/actuation inhaler Inhale 2 puffs daily 70 mcg of tiotropium 2 03/26/2021 4 zolpidem (AMBIEN) 10 mg tabletIndication s:Sleep-Onset Insomnia Take 10 mg by mouth nightly as needed for sleep 2 documented as of this encounter Ordered Prescriptions Prescription Sig Dispense Quantity Refills Last Filled Start Date End Date acetaminophen (TYLENOL) 325 mg tabletIndications: Fever,Pain Take 2 tablets (650 mg total) by mouth every 4 (four) hours as needed for pain or headaches 20 tablet 05/22/2021 documented in this encounter Discharge Disposition Disposition Code Departure Means Destination Discharge to home or self care documented in this encounter Progress Notes * Patricia Ellsworth RN - 05/22/2021 12:06 PM CDT 05/20/21 08 Discharge Summary Chart reviewed For Medical Necessity Does patient have a planned readmission to hospital planned? No Discharge Disposition Home Discharge Additional Assistance Does the patient need discharge transport arranged? No Patient to d/c to home today. No home needs identified. Patient has family for home support and transportation. Patient to have meds filled by mobile pharmacy. Patient to follow up with your PCP on May 27 at 9:15 am. Nurse to instruct on d/c orders. Patient has active discharge orders at this time. * Brant Mayorga MD - 05/22/2021 7:50 AM CDT Discharge Note Division of Hospital Medicine Name: Yuliana Johnson Today: May 22, 2021 : 1940 Age: 80 y.o. female Admit: 05/19/2021 Bed: [id number] Subjective Chief complaint: BRBPR Interval History: Patient was seen and examined today. She was sitting on her bed and was not in any acute discomfort. GI on board, no plan for scope. Discussion happened between GI and family 05/21. Had 2 episodes of BM 04/23 without any visible blood. Monitored cbc, last Hb 10.7<11.3<10.9<10.9<10.3<11.4<12.4. Will resume Eliquis as outpatient as the Hb is still not at baseline.Restarted on Coreg and losartan, amlodipine and Eliquis will remain on hold. Objective Medications: Scheduled: carvediloL, 12.5 mg, oral, BID with meals (bkfst, dinner) insulin lispro, 0-5 Units, subcutaneous, QID (AC & HS) pravastatin, 40 mg, oral, Daily umeclidinium, 1 puff, inhalation, Daily Infusions: PRN: ??? acetaminophen ??? dextrose OR dextrose ??? glucagon ??? ondansetron ODT OR ondansetron ??? zolpidem Vitals: 24hr Min/Max: Temp Min: 36.5 ??C (97.7 ??F) Max: 37.3 ??C (99.1 ??F) Pulse Min: 71 Max: 77 BP Min: 140/55 Max: 155/63 Resp Min: 16 Max: 16 SpO2 Min: 98 % Max: 100 % Most Recent: Vitals: 05/22/21 0445 BP: 155/63 Pulse: 77 Resp: 16 Temp: 36.5 ??C (97.7 ??F) SpO2: 100% No intake or output data in the 24 hours ending 05/22/21 0750 Physical Exam Constitutional: NAD, well developed Eyes: PERRL, EOMI, anicteric ENT: NCAT, oropharynx normal, moist mucus membranes Lungs: Clear to auscultation in all lung salazar, unlabored Cardiovascular: normal S1 and S2 GI: Soft, non-tender, non-distended, bowel sounds + Skin: No new rashes, lesions or bruises on visible skin Extremities: Normal without edema or cyanosis Neurologic: AOx4, CNII-XII intact, normal strength and sensation Psychiatric: Flat affect and mood I have reviewed the patient's vital signs. Lab/Diagnostic Review: Recent Results (from the past 36 hour(s)) Basic metabolic panel Collection Time: 05/21/21 3:39 AM Result Value Ref Range Sodium 142 135 - 145 mmol/L Potassium, pl 4.1 3.3 - 4.9 mmol/L Chloride 114 (H) 97 - 110 mmol/L CO2 22 22 - 32 mmol/L Anion gap 6 2 - 15 mmol/L BUN 6 (L) 8 - 25 mg/dL Creatinine 0.80 0.60 - 1.10 mg/dL Glucose 86 70 - 199 mg/dL Calcium 8.3 (L) 8.5 - 10.3 mg/dL eGFR Collection Time: 05/21/21 3:39 AM Result Value Ref Range eGFR 74 (L) 90 - 130 mL/min/1.73 m2 CBC with auto differential Collection Time: 05/21/21 5:25 AM Result Value Ref Range WBC 9.7 3.8 - 9.9 K/cumm Hgb 10.9 (L) 11.9 - 15.5 g/dL Hct 33.8 (L) 35.6 - 45.5 % Plt 367 150 - 400 K/cumm MPV 9.5 9.1 - 12.3 fL RBC 3.82 (L) 3.90 - 5.20 M/cumm MCV 88.5 81.3 - 96.4 fL MCH 28.5 27.1 - 33.3 pg MCHC 32.2 (L) 32.3 - 35.7 g/dL RDW CV 14.2 11.1 - 14.9 % RDW SD 46.0 35.7 - 48.1 fL NRBC abs 0.02 (H) 0.00 - 0.01 K/cumm Differential, auto Collection Time: 05/21/21 5:25 AM Result Value Ref Range Neutrophil abs 5.2 1.7 - 6.5 K/cumm Imm gran abs 0.1 0.0 - 0.1 K/cumm Lymphocyte abs 2.8 0.8 - 3.3 K/cumm Monocyte abs 0.8 0.2 - 0.8 K/cumm Eosinophil abs 0.7 (H) 0.0 - 0.5 K/cumm Basophil abs 0.1 0.0 - 0.1 K/cumm Neutrophil pct 53.3 % Imm gran pct 1.3 % Lymphocyte pct 28.7 % Monocyte pct 8.3 % Eosinophil pct 7.0 % Basophil pct 1.4 % POCT glucose Collection Time: 05/21/21 7:43 AM Result Value Ref Range Glucose, POC 84 70 - 199 mg/dL POCT glucose Collection Time: 05/21/21 10:38 AM Result Value Ref Range Glucose, POC 110 70 - 199 mg/dL POCT glucose Collection Time: 05/21/21 4:49 PM Result Value Ref Range Glucose, POC 127 70 - 199 mg/dL CBC with auto differential Collection Time: 05/21/21 4:50 PM Result Value Ref Range WBC 9.9 3.8 - 9.9 K/cumm Hgb 11.3 (L) 11.9 - 15.5 g/dL Hct 36.1 35.6 - 45.5 % Plt 391 150 - 400 K/cumm MPV 9.7 9.1 - 12.3 fL RBC 4.00 3.90 - 5.20 M/cumm MCV 90.3 81.3 - 96.4 fL MCH 28.3 27.1 - 33.3 pg MCHC 31.3 (L) 32.3 - 35.7 g/dL RDW CV 14.2 11.1 - 14.9 % RDW SD 46.9 35.7 - 48.1 fL NRBC abs 0.00 0.00 - 0.01 K/cumm Differential, auto Collection Time: 05/21/21 4:50 PM Result Value Ref Range Neutrophil abs 6.3 1.7 - 6.5 K/cumm Imm gran abs 0.1 0.0 - 0.1 K/cumm Lymphocyte abs 2.1 0.8 - 3.3 K/cumm Monocyte abs 0.8 0.2 - 0.8 K/cumm Eosinophil abs 0.5 0.0 - 0.5 K/cumm Basophil abs 0.1 0.0 - 0.1 K/cumm Neutrophil pct 63.4 % Imm gran pct 1.1 % Lymphocyte pct 21.4 % Monocyte pct 7.7 % Eosinophil pct 5.0 % Basophil pct 1.4 % POCT glucose Collection Time: 05/21/21 8:00 PM Result Value Ref Range Glucose, POC 139 70 - 199 mg/dL CBC with auto differential Collection Time: 05/22/21 4:58 AM Result Value Ref Range WBC 10.4 (H) 3.8 - 9.9 K/cumm Hgb 10.7 (L) 11.9 - 15.5 g/dL Hct 33.4 (L) 35.6 - 45.5 % Plt 363 150 - 400 K/cumm MPV 9.9 9.1 - 12.3 fL RBC 3.76 (L) 3.90 - 5.20 M/cumm MCV 88.8 81.3 - 96.4 fL MCH 28.5 27.1 - 33.3 pg MCHC 32.0 (L) 32.3 - 35.7 g/dL RDW CV 14.1 11.1 - 14.9 % RDW SD 45.9 35.7 - 48.1 fL NRBC abs 0.00 0.00 - 0.01 K/cumm Basic metabolic panel Collection Time: 05/22/21 4:58 AM Result Value Ref Range Sodium 142 135 - 145 mmol/L Potassium, pl 4.1 3.3 - 4.9 mmol/L Chloride 113 (H) 97 - 110 mmol/L CO2 21 (L) 22 - 32 mmol/L Anion gap 8 2 - 15 mmol/L BUN 8 8 - 25 mg/dL Creatinine 0.82 0.60 - 1.10 mg/dL Glucose 88 70 - 199 mg/dL Calcium 8.6 8.5 - 10.3 mg/dL Differential, auto Collection Time: 05/22/21 4:58 AM Result Value Ref Range Neutrophil abs 5.5 1.7 - 6.5 K/cumm Imm gran abs 0.2 (H) 0.0 - 0.1 K/cumm Lymphocyte abs 3.1 0.8 - 3.3 K/cumm Monocyte abs 0.9 (H) 0.2 - 0.8 K/cumm Eosinophil abs 0.7 (H) 0.0 - 0.5 K/cumm Basophil abs 0.2 (H) 0.0 - 0.1 K/cumm Neutrophil pct 52.5 % Imm gran pct 1.5 % Lymphocyte pct 29.8 % Monocyte pct 8.3 % Eosinophil pct 6.2 % Basophil pct 1.7 % eGFR Collection Time: 05/22/21 4:58 AM Result Value Ref Range eGFR 71 (L) 90 - 130 mL/min/1.73 m2 POCT glucose Collection Time: 05/22/21 7:44 AM Result Value Ref Range Glucose, POC 86 70 - 199 mg/dL I have reviewed the laboratory results. Imaging Results: ECG 12 lead Vic Farnsworth MD 05/19/2021 3:52 PM ECG 12 lead Date/Time: 05/19/2021 3:50 PM Performed by: Vic Farnsworth MD Authorized by: Leland Mckenna MD Rate: ECG rate: 73 ECG rate assessment: normal Rhythm: Rhythm: sinus rhythm Ectopy: Ectopy: none QRS: QRS axis: Left QRS intervals: Wide Conduction: Conduction: normal ST segments: ST segments: Normal T waves: T waves: flattening Flattening: V1 and V2 Q waves: Q waves: V1 and V2 Other findings: Other findings: LVH Previous ECG: Previous ECG: Compared to current Date of previous EC02/09/2019 Comparison ECG info: Anterior Q waves are new, T flattening is new Similarity: Changes noted Interpretation: Interpretation: abnormal Recommended Follow-up: Recommended follow up: further workup in the ED Comments: Moderate risk of ACS I have independently reviewed and interpreted labs and imaging. Assessment and plan: 80F with T2DM, pHTN, HTN, CVA??on Eliquis, MV/TV??repair (annuloplasty??2014), s/p CCK 05/11 p/w??BRBPR. * Bright red blood per rectum/hematochezia Assessment & Plan P/w 3x BRBPR 05/19. - Hgb 11.4 (12.4 a few days ago) - last eliquis dose 05/19 AM - CT a/p in 04/2021 with pancolonic diverticulosis - likely diverticular bleed - CBC q12 - avoid IVF d/t diastolic heart failure -regular diet Had 2 episodes of BM 04/23 without any visible blood. Monitored cbc, last Hb 10.7<11.3<10.9<10.9<10.3<11.4<12.4. Will resume Eliquis as outpatient as the Hb is still not at baseline.Restarted on Coreg and losartan, amlodipine and Eliquis will remain on hold. ?? CKD (chronic kidney disease) Assessment & Plan Cr 1 (baseline) - avoid nephrotoxins Monitor renal function ?? Chronic diastolic heart failure (CMS/HCC) (HCC) Assessment & Plan EF 69% but pseudonormal diastolic function on TTE 2020 - Hold lasix ?? Calculus of gallbladder without cholecystitis without obstruction Assessment & Plan Was recently here in early April for RLQ pain, found to have cholecystitis, s/p CCK on 05/11. OR cultures eventually grew out vásquez sensitive Streptococcus anginosus . She was given 4 days of augmentin after discharge. - no signs of infection or abd pain ?? 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 S/P mitral valve repair Assessment & Plan 2004 annuloplasty - TTE 2020 without issues ?? HTN (hypertension), benign Assessment & Plan Hold amlodipine, coreg, losartan d/t GIB Monitor vitals ?? Type 2 diabetes mellitus (HCC) Assessment & Plan A1C 5.9%. Home metformin, glimepride Monitor blood glucose AC and HS Low-dose SSI, would not be inclined to dose up unless BG remarkably high ?? Code Status: Prior Diet: reg DVT proph: was on Eliquis, on hold Disposition: home Discharge Planning I have spent 30 minutes on discharge planning activities. Time spent was on Coordination of care, Follow up , Counselling with patient/family, discharge exam and parent/patient education. Brant Mayorga MD [facility] [phone] * Pee Berman, OT - 05/21/2021 9:55 AM CDT Occupational Therapy Occupational Therapy Initial Assessment NOTE:This is a summary note for the marvin assessments completed during the evaluation session. For full details, review chart review for all flowsheets documented on by this Occupational Therapist on this date. Vital signs documented in vital signs flowsheet. Assessment Assessment Barriers to Discharge: Cognition Plan Plan Plan: Discharge, If this is the last note, consider this the discharge summary OT Recommendation and Plan Recommendation/Plan OT Recommendation: Home with 24 hour supervision, No further OT indicated OT Frequency: One-time visit (Discharge from this service) (1) Comments: Discussed results of MOCA with pt and recommendations. No further questions at this time OT - OK to Discharge: Yes OT Evaluation Complete: Yes General Information General Chart Reviewed: Yes Session Type: Evaluation (Initial d/c) OT Received On: 05/21/21 Safe Environment: Patient found sitting in Chair, Arm Band Checked, Call Light within Reach, Overbed Table within Reach, Chair Alarm placed and activated (pt left sitting in chair) Family/Caregiver Present: No Occupational Therapy-Patient Goal: Denies acute OT goal Precautions Precautions Precautions: Fall risk Home Living Home Living Type of Home: House Home Layout: One level, Basement, Able to live on main level with bedroom/bathroom Home Access: Stairs to enter without rails Entrance Stairs-Rails: None Entrance Stairs-Number of Steps: 4 Bathroom Shower/Tub: Walk-in shower with threshold Bathroom Toilet: Standard Bathroom Equipment: Grab bars in shower/tub, Hand-held shower Home Mobility Equipment: Wheeled walker Additional Comments: Denies use of AD for mobility at baseline Prior Function Prior Function Level of [place]: Independent with ADLs, Independent functional transfers, Independent with ambulation, Independent with homemaking with ambulation Lives With: Spouse Receives Help From: Spouse/Significant other (FT assist) Driving: Yes ADL Assistance: Independent Instrumental ADL (IADL) Assistance: Independent Fall within the last 6 months: No Prior Function Comments: Unable to verify information with family Activities of Daily Living Grooming Grooming: Where assessed: Standing at sink Grooming: Level of assistance: Distant Supervision Grooming: Assistance with: Safety LE Dressing LE Dressing: Where assessed: Sitting, Edge of bed, Standing LE Dressing: Level of assistance: Distant Supervision LE Dressing: Assistance with: Safety Toileting Toileting: Where assessed: Toilet Toileting: Level of assistance: Distant Supervision Toileting: Assistance with: (Safety) Toilet Transfers Toilet Transfer From: Other (Comment) (chair with arms) Toilet Transfer Type: To and from Toilet Transfer to: Standard toilet Toilet Transfer Technique: Ambulating Toilet Transfer: Equipment: No device Toilet Transfers: Supervision Toilet Transfers Comments: Safety Pain Pain Assessment Pain Assessment: No/denies pain Cognition Cognition Arousal/Alertness: Alert, Appropriate responses to stimuli Attention Span: Distractability, Controlled environment Memory: Decreased short term memory Current communication: Appears Intact Orientation : Oriented to person, Oriented to place, Oriented to time Following Commands: Follows all commands and directions without difficulty Safety Judgment: Decreased awareness of need for safety Awareness of Errors: Assistance required to identify errors made, Assistance required to correct errors made Insight: Decreased awareness of deficits Problem Solving: Assistance required to identify errors made, Assistance required to generate solutions, Assistance required to implement solutions Compliance/Behavior: Easy to engage Perseveration: Not present Aydin Cognitive Assessment-Blind (MOCA-Blind) MOCA-Blind Version: Version 3 Memory-Blind: Memory not scored Attention-Blind: 3 Language-Blind: 2 Abstraction-Blind: 2 Delayed Recall-Blind: 1 Orientation-Blind: 5 Education Level-Blind: Education less than or equal to 12 yrs MOCA Total Score-Blind: 14 Score Evaluation-Blind: 0-17 Impaired Recommendations for further assessment/interventions: Medication Management 6 Clicks Daily Activity - 6 Clicks Putting on and taking off regular lower body clothing: A Little Bathing: A little Toileting: A little Putting on and taking off upper body clothing: A Little Personal Grooming: A little Eating Meals: None Total Score (range 6-24): 19 Score Interpretation: 19 Balance Static Sitting Balance Static Sitting-Balance Support: No upper extremity supported, Feet supported Static Sitting-Sitting Surface: Chair Static Sitting-Level of Assistance: Independent Dynamic Sitting Balance Dynamic Sitting-Balance Support: No upper extremity supported, Feet supported Dynamic Sitting-Balance: Forward lean, Reaching for objects Dynamic Sitting-Sitting Surface: Bed Dynamic Sitting-Level of Assistance: Independent Static Standing Balance Static Standing-Balance Support: No upper extremity supported Static Standing-Standing Surface: Floor Static Standing-Level of Assistance: Distant supervision Static Standing-Comment/# of Minutes: Safety Dynamic Standing Balance Dynamic Standing-Balance Support: No upper extremity supported Dynamic Standing-Balance: Forward lean, Reaching for objects Dynamic Standing-Standing Surface: Floor Dynamic Standing-Level of Assistance: Distant supervision Dynamic Standing-Comments: Safety Transfers Transfers Transfer: Yes (gait belt used for all OOB mobility) Transfer 1 Transfer From 1: Sit Transfer Type 1: To and from Transfer to 1: Stand Technique 1: Sit to stand, Stand to sit Transfer Device 1: No device Transfer Level of Assistance 1: Distant supervision Trials/Comments 1: Safety Bed Mobility Bed Mobility Bed Mobility: No (pt found and left sitting) RUE Assessment RUE Assessment RUE Assessment: Within Functional Limits LUE Assessment LUE Assessment LUE Assessment: Within Functional Limits Other Comments Other Comments Comments: Discussed results of MOCA with pt and recommendations. No further questions at this time OT Goals Multi-Disciplinary Problems (from Occupational Therapy) Active Problems Not on file * Brant Mayorga MD - 05/21/2021 8:20 AM CDT Daily Progress Note Division of Hospital Medicine Name: Yuliana Johnson Today: May 21, 2021 : 1940 Age: 80 y.o. female Admit: 05/19/2021 Bed: [id number] Subjective Chief complaint: BRBPR Interval History: Patient was seen and examined today. She was sitting on her chair and was not in any acute discomfort. GI on board, no plan for scope. Discussion happened between GI and family 05/21. If no further bleeding and Hb remains stable will dc tomorrow with OP labs. Monitor cbc, last Hb 10 .9<10.9<10.3<11.4<12.4. Will resume Eliquis as outpatient as the Hb is still not at baseline. Objective Medications: Scheduled: insulin lispro, 0-5 Units, subcutaneous, QID (AC & HS) pravastatin, 40 mg, oral, Daily umeclidinium, 1 puff, inhalation, Daily Infusions: PRN: ??? acetaminophen ??? dextrose OR dextrose ??? glucagon ??? ondansetron ODT OR ondansetron ??? zolpidem Vitals: 24hr Min/Max: Temp Min: 36.7 ??C (98.1 ??F) Max: 37 ??C (98.6 ??F) Pulse Min: 70 Max: 79 BP Min: 138/63 Max: 158/66 Resp Min: 17 Max: 18 SpO2 Min: 96 % Max: 100 % Most Recent: Vitals: 05/21/21 0730 BP: 156/63 Pulse: 70 Resp: 18 Temp: 37 ??C (98.6 ??F) SpO2: 97% No intake or output data in the 24 hours ending 05/21/21 0820 Physical Exam Constitutional: NAD, well developed Eyes: PERRL, EOMI, anicteric ENT: NCAT, oropharynx normal, moist mucus membranes Lungs: Clear to auscultation in all lung salazar, unlabored Cardiovascular: normal S1 and S2 GI: Soft, non-tender, non-distended, bowel sounds + Skin: No new rashes, lesions or bruises on visible skin Extremities: Normal without edema or cyanosis Neurologic: AOx4, CNII-XII intact, normal strength and sensation Psychiatric: Flat affect and mood I have reviewed the patient's vital signs. Lab/Diagnostic Review: Recent Results (from the past 36 hour(s)) POCT glucose Collection Time: 05/19/21 8:43 PM Result Value Ref Range Glucose, POC 82 70 - 199 mg/dL CBC with auto differential Collection Time: 05/20/21 5:39 AM Result Value Ref Range WBC 7.8 3.8 - 9.9 K/cumm Hgb 10.3 (L) 11.9 - 15.5 g/dL Hct 32.7 (L) 35.6 - 45.5 % Plt 339 150 - 400 K/cumm MPV 9.6 9.1 - 12.3 fL RBC 3.62 (L) 3.90 - 5.20 M/cumm MCV 90.3 81.3 - 96.4 fL MCH 28.5 27.1 - 33.3 pg MCHC 31.5 (L) 32.3 - 35.7 g/dL RDW CV 14.4 11.1 - 14.9 % RDW SD 47.9 35.7 - 48.1 fL NRBC abs 0.00 0.00 - 0.01 K/cumm Basic metabolic panel Collection Time: 05/20/21 5:39 AM Result Value Ref Range Sodium 144 135 - 145 mmol/L Potassium, pl 4.5 3.3 - 4.9 mmol/L Chloride 115 (H) 97 - 110 mmol/L CO2 22 22 - 32 mmol/L Anion gap 7 2 - 15 mmol/L BUN 9 8 - 25 mg/dL Creatinine 0.94 0.60 - 1.10 mg/dL Glucose 106 70 - 199 mg/dL Calcium 8.3 (L) 8.5 - 10.3 mg/dL Differential, auto Collection Time: 05/20/21 5:39 AM Result Value Ref Range Neutrophil abs 4.4 1.7 - 6.5 K/cumm Imm gran abs 0.1 0.0 - 0.1 K/cumm Lymphocyte abs 1.8 0.8 - 3.3 K/cumm Monocyte abs 0.7 0.2 - 0.8 K/cumm Eosinophil abs 0.6 (H) 0.0 - 0.5 K/cumm Basophil abs 0.1 0.0 - 0.1 K/cumm Neutrophil pct 57.1 % Imm gran pct 1.5 % Lymphocyte pct 23.6 % Monocyte pct 8.6 % Eosinophil pct 7.9 % Basophil pct 1.3 % eGFR Collection Time: 05/20/21 5:39 AM Result Value Ref Range eGFR 61 (L) 90 - 130 mL/min/1.73 m2 POCT glucose Collection Time: 05/20/21 8:38 AM Result Value Ref Range Glucose, POC 91 70 - 199 mg/dL POCT glucose Collection Time: 05/20/21 11:36 AM Result Value Ref Range Glucose, POC 121 70 - 199 mg/dL CBC with auto differential Collection Time: 05/20/21 4:47 PM Result Value Ref Range WBC 8.4 3.8 - 9.9 K/cumm Hgb 10.9 (L) 11.9 - 15.5 g/dL Hct 33.9 (L) 35.6 - 45.5 % Plt 363 150 - 400 K/cumm MPV 9.6 9.1 - 12.3 fL RBC 3.82 (L) 3.90 - 5.20 M/cumm MCV 88.7 81.3 - 96.4 fL MCH 28.5 27.1 - 33.3 pg MCHC 32.2 (L) 32.3 - 35.7 g/dL RDW CV 14.4 11.1 - 14.9 % RDW SD 46.5 35.7 - 48.1 fL NRBC abs 0.00 0.00 - 0.01 K/cumm POCT glucose Collection Time: 05/20/21 4:47 PM Result Value Ref Range Glucose, POC 105 70 - 199 mg/dL Differential, auto Collection Time: 05/20/21 4:47 PM Result Value Ref Range Neutrophil abs 4.9 1.7 - 6.5 K/cumm Imm gran abs 0.1 0.0 - 0.1 K/cumm Lymphocyte abs 2.1 0.8 - 3.3 K/cumm Monocyte abs 0.6 0.2 - 0.8 K/cumm Eosinophil abs 0.5 0.0 - 0.5 K/cumm Basophil abs 0.1 0.0 - 0.1 K/cumm Neutrophil pct 58.3 % Imm gran pct 1.1 % Lymphocyte pct 25.3 % Monocyte pct 7.5 % Eosinophil pct 6.4 % Basophil pct 1.4 % POCT glucose Collection Time: 05/20/21 7:50 PM Result Value Ref Range Glucose, POC 112 70 - 199 mg/dL Basic metabolic panel Collection Time: 05/21/21 3:39 AM Result Value Ref Range Sodium 142 135 - 145 mmol/L Potassium, pl 4.1 3.3 - 4.9 mmol/L Chloride 114 (H) 97 - 110 mmol/L CO2 22 22 - 32 mmol/L Anion gap 6 2 - 15 mmol/L BUN 6 (L) 8 - 25 mg/dL Creatinine 0.80 0.60 - 1.10 mg/dL Glucose 86 70 - 199 mg/dL Calcium 8.3 (L) 8.5 - 10.3 mg/dL eGFR Collection Time: 05/21/21 3:39 AM Result Value Ref Range eGFR 74 (L) 90 - 130 mL/min/1.73 m2 CBC with auto differential Collection Time: 05/21/21 5:25 AM Result Value Ref Range WBC 9.7 3.8 - 9.9 K/cumm Hgb 10.9 (L) 11.9 - 15.5 g/dL Hct 33.8 (L) 35.6 - 45.5 % Plt 367 150 - 400 K/cumm MPV 9.5 9.1 - 12.3 fL RBC 3.82 (L) 3.90 - 5.20 M/cumm MCV 88.5 81.3 - 96.4 fL MCH 28.5 27.1 - 33.3 pg MCHC 32.2 (L) 32.3 - 35.7 g/dL RDW CV 14.2 11.1 - 14.9 % RDW SD 46.0 35.7 - 48.1 fL NRBC abs 0.02 (H) 0.00 - 0.01 K/cumm Differential, auto Collection Time: 05/21/21 5:25 AM Result Value Ref Range Neutrophil abs 5.2 1.7 - 6.5 K/cumm Imm gran abs 0.1 0.0 - 0.1 K/cumm Lymphocyte abs 2.8 0.8 - 3.3 K/cumm Monocyte abs 0.8 0.2 - 0.8 K/cumm Eosinophil abs 0.7 (H) 0.0 - 0.5 K/cumm Basophil abs 0.1 0.0 - 0.1 K/cumm Neutrophil pct 53.3 % Imm gran pct 1.3 % Lymphocyte pct 28.7 % Monocyte pct 8.3 % Eosinophil pct 7.0 % Basophil pct 1.4 % POCT glucose Collection Time: 05/21/21 7:43 AM Result Value Ref Range Glucose, POC 84 70 - 199 mg/dL I have reviewed the laboratory results. Imaging Results: ECG 12 lead Vic Farnsworth MD 05/19/2021 3:52 PM ECG 12 lead Date/Time: 05/19/2021 3:50 PM Performed by: Vic Farnsworth MD Authorized by: Leland Mckenna MD Rate: ECG rate: 73 ECG rate assessment: normal Rhythm: Rhythm: sinus rhythm Ectopy: Ectopy: none QRS: QRS axis: Left QRS intervals: Wide Conduction: Conduction: normal ST segments: ST segments: Normal T waves: T waves: flattening Flattening: V1 and V2 Q waves: Q waves: V1 and V2 Other findings: Other findings: LVH Previous ECG: Previous ECG: Compared to current Date of previous EC02/09/2019 Comparison ECG info: Anterior Q waves are new, T flattening is new Similarity: Changes noted Interpretation: Interpretation: abnormal Recommended Follow-up: Recommended follow up: further workup in the ED Comments: Moderate risk of ACS I have independently reviewed and interpreted labs and imaging. 80F with T2DM, pHTN, HTN, CVA??on Eliquis, MV/TV??repair (annuloplasty??2014), s/p CCK 05/11 p/w??BRBPR. * Bright red blood per rectum/hematochezia Assessment & Plan P/w 3x BRBPR 05/19. - Hgb 11.4 (12.4 a few days ago) - last eliquis dose 05/19 AM - CT a/p in 04/2021 with pancolonic diverticulosis - likely diverticular bleed - CBC q12 - avoid IVF d/t diastolic heart failure -regular diet GI on board, no plan for scope. Discussion happened between GI and family 05/21. If no further bleeding and Hb remains stable will dc tomorrow with OP labs. Monitor cbc, last Hb 10.9<10.9<10.3<11.4<12.4. Will resume Eliquis as outpatient as the Hb is still not at baseline. ?? CKD (chronic kidney disease) Assessment & Plan Cr 1 (baseline) - avoid nephrotoxins Monitor renal function ?? Chronic diastolic heart failure ([facility] ([facility]) Assessment & Plan EF 69% but pseudonormal diastolic function on TTE 2020 - Hold lasix ?? Calculus of gallbladder without cholecystitis without obstruction Assessment & Plan Was recently here in early April for RLQ pain, found to have cholecystitis, s/p CCK on 05/11. OR cultures eventually grew out vásquez sensitive Streptococcus anginosus . She was given 4 days of augmentin after discharge. - no signs of infection or abd pain ?? 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 S/P mitral valve repair Assessment & Plan 2004 annuloplasty - TTE 2020 without issues ?? HTN (hypertension), benign Assessment & Plan Hold amlodipine, coreg, losartan d/t GIB Monitor vitals ?? Type 2 diabetes mellitus (HCC) Assessment & Plan A1C 5.9%. Home metformin, glimepride Monitor blood glucose AC and HS Low-dose SSI, would not be inclined to dose up unless BG remarkably high ?? Code Status: Prior Diet: reg DVT proph: was on Eliquis, on hold Disposition: as per clinical course, patient coming from home Brant Mayorga MD [facility] [phone] * Nathalie Trimble, PT - 05/20/2021 10:40 AM CDT Physical Therapy Physical Therapy Initial Assessment NOTE: This is a summary note for the marvin assessments completed during the evaluation session. For full details, review chart review for all flowsheets documented on by this physical therapist on thisdate. Vital signs documented in vital signs flowsheet. For questions, please review the treatment team and contact the PT or FURNACE CLERK currently assigned to this patient. If a physical therapy clinician is not assigned to this patient, please call [phone]. Assessment Assessment Problem List Comments: No acute care PT goals identified, discharge from this service. Barriers to Discharge: None Plan Plan Plan : Discharge, If this is the last note, consider this the discharge summary PT Recommendation and Plan Recommendation/Plan PT Recommendation/Plan: Home with family, Home with 24 hour supervision, Home Health PT PT Recommendation/Plan Comments: Discussed HHPT vs Outpatient PT; patient could benefit from HHPT, however patient and spouse more interested in outpatient PT PT Frequency: One time visit (Discharge from this service) PT Equipment Recommended: Wheeled walker (YOUTH wheeled walker) Progress: Discontinue PT PT - OK to Discharge: Yes PT Evaluation Complete: Yes General Information General Chart Reviewed: Yes Session Type: Evaluation PT Received On: 05/20/21 Safe Environment: Arm Band Checked, Call Light within Reach, Patient found in Supine, Notified RN (Pt left sitting in chair with needs in reach.) Subjective: Agreeable to Therapy Family/Caregiver Present: Yes (spouse) Physical Therapy-Patient Goal: No specific PT goals stated. Prior Function Prior Function Level of [place]: Independent functional transfers, Independent with ambulation Lives With: Spouse (FT assist available) Receives Help From: Spouse/Significant other (spouse assists with cooking) Fall within the last 6 months: Yes Fall within the last 6 months comment: Patient's spouse reports 1 near miss where pt loss balance and had to catch themself. Home Living Home Living Type of Home: House Home Layout: One level Home Access: Stairs to enter with rails Entrance Stairs-Rails: Left Entrance Stairs-Number of Steps: 4 Home Mobility Equipment: 4-Wheeled walker Precautions Precautions Precautions: Fall risk Precaution Comments: PPE = KN95 and gloves Pain Pain Assessment Pain Assessment: No/denies pain Cognition Cognition Arousal/Alertness: Alert, Appropriate responses to stimuli Orientation : Oriented to place, Oriented to person, Oriented to situation (stated year was 2019) Following Commands: Follows all commands and directions without difficulty 6 Clicks Basic Mobility - 6 Click How much difficulty does the patient have: Turning over in bed: None How much difficulty does the patient currently have: Sitting down and standing up from a chair witharms?: None How much difficulty does the patient have: Moving from lying on back to sitting on the side of the bed?: None How much difficulty does the patient have: Moving to and from a bed to a chair including wheelchair?: None How much help does the patient currently need: Walk in hospital room?: A little How much help from another person does the patient currently need: Climbing 3-5 steps with a railing?: A little Total 6 Click Score (range 6-24): 22 Bed Mobility Bed Mobility Bed Mobility: Yes Bed Mobility 1 Bed Mobility From 1: Supine Bed Mobility Type 1: To Bed Mobility to 1: Edge of bed Level of Assistance 1: Distant Supervision Bed Mobility Comments 1: dist sup for safety Transfers Transfers Transfer: Yes Transfer 1 Transfer From 1: Sit Transfer Type 1: To and from Transfer to 1: Stand Technique 1: Sit to stand, Stand to sit Transfer Device 1: Wheeled walker Transfer Level of Assistance 1: Distant supervision Balance Static Sitting Balance Static Sitting-Balance Support: No upper extremity supported, Feet supported Static Sitting-Sitting Surface: Bed, Chair Static Sitting-Level of Assistance: Independent Static Standing Balance Static Standing-Balance Support: Bilateral upper extremity supported (on wheeled walker) Static Standing-Standing Surface: Floor Static Standing-Level of Assistance: Distant supervision Static Standing-Comment/# of Minutes: sup for safety Ambulation Ambulation Ambulation: Yes Ambulation 1 Distance (ft) 1: 100 Surface 1: Level tile Device 1: Wheeled walker Assistance 1: Standby Assist Gait: Requires verbal cues to 1: Use assistive device safely, Increase step length Quality of Gait 1: decreased paulette, step length, and step height; pt minimally unsteady throughout gait Ambulation Comments 1: talavera = 39/56 - medium fall risk Stairs Stairs Stairs: No RLE Assessment RLE Assessment RLE Assessment: Within Functional Limits LLE Assessment LLE Assessment LLE Assessment: Within Functional Limits Equipment Used Equipment Use Equipment Use Comments: gait belt used for all OOB mobility Other Comments Other Comments Other PT Comments: Patient and spouse educated on role of PT and continuum of care. PT Goals Multi-Disciplinary Problems (from Physical Therapy) Active Problems Not on file * Patricia Ellsworth RN - 05/20/2021 9:02 AM CDT CM Initial Assessment Interview Note Information Obtained From: Patient (05/20/21858) Admission Source: non health care facility Impression: 80 y.o. female with chief complaint of Bright red blood per rectum Plan Includes: Discharge patient to appropriate level of care when medically stable. health practice manager will continue to follow and assess for discharge needs. Primary Source of Transportation: Does the patient need discharge transport arranged?: No (05/20/21858) Health Insurance Coverage: [employer] Prescription Coverage: Yes Pharmacy: unsure Primary Care Provider: Braydon Lombardi MDverified Prior to Admission: Primary Caregiver: Self Support System: Spouse/Significant Other Support system contact info (name, phone, availablity): spouse, Pedrito Johnson [phone] and daughter, Azul Adams [phone] Home Care Services: No Durable Medical Equipment: None Living Arrangements: Spouse/significant other Type of Residence: Private residence Steps in home? : Yes, Outside of home Number of steps outside:: 2 steps (05/20/21858) Potential discharge needs include:Awaiting PT/OT recommendations Dialysis: N/A Behavioral Health Services: Behavioral Health Services: No (05/20/21858) Patient expects to be Discharged to: Private residence, (05/20/21858) Additional Information: Address and phone number verified with facesheet. Patient lives with her and is IADL's, medication management and still drives. Role of CM explained. Patient's Identified Problem/Goal Problem: Ensure acute medical needs are met and that patient has a safe discharge plan. Goal: Secure a discharge plan that patient/family are agreeable with and ensure patient has continuum of care. Case management will follow for discharge planning and send referrals as needed. Goals include: To assure continuity of care, To maximize coping skills, To assure patient is in a safe environment and To assure access to community resources. Plan includes: 1. Collaboration with patient, MD, direct care nurse, Geophysical Laboratory Chief, Nurse Coordinator and other members of the health care team to assure needed interventions completed. 2. Return patient to optimal level of self-care post discharge. 3. Data Visualization Developer will follow for Discharge Planning - interventions as needed 4. Anticipated level of care at discharge 5. Planned Discharge Disposition Based on a comprehensive family assessment, assistance with instrumental activities of daily livingafter discharge will be provided by patient. Through the course of our work I determined that the patient possesses the skill and ability to provide and monitor the care of the patient when he or she returns home. patient has the capacity to provide/monitor/arrange for the care of the patient. Finally, we determined that patient has the knowledge of available resources and that combining them with their existing resources will suffice to sustain and care for the patient when he or she returns home. The treatment team is aware of this information. All are in agreement with the aftercare plan. Patrciia Ellsworth RN * Brant Mayorga MD - 05/20/2021 8:35 AM CDT Daily Progress Note Division of Hospital Medicine Name: Yuliana Johnson Today: May 20, 2021 : 1940 Age: 80 y.o. female Admit: 05/19/2021 Bed: [id number] Subjective Chief complaint: BRBPR Interval History: Patient was seen and examined today. She was sitting on her bed and was not in any acute discomfort. Mentioned that this is the first time she is having blood per rectum. GI on board. Objective Medications: Scheduled: insulin lispro, 0-5 Units, subcutaneous, QID (AC & HS) pravastatin, 40 mg, oral, Daily [START ON 05/21/2021] umeclidinium, 1 puff, inhalation, Daily Infusions: PRN: ??? acetaminophen ??? dextrose OR dextrose ??? glucagon ??? ondansetron ODT OR ondansetron ??? zolpidem Vitals: 24hr Min/Max: Temp Min: 36.8 ??C (98.2 ??F) Max: 37.2 ??C (99 ??F) Pulse Min: 65 Max: 79 BP Min: 125/55 Max: 142/62 Resp Min: 15 Max: 26 SpO2 Min: 95 % Max: 100 % Most Recent: Vitals: 05/20/21 0824 BP: Pulse: Resp: Temp: SpO2: 100% No intake or output data in the 24 hours ending 05/20/21 0835 Physical Exam Constitutional: NAD, well developed Eyes: PERRL, EOMI, anicteric ENT: NCAT, oropharynx normal, moist mucus membranes Lungs: Clear to auscultation in all lung salazar, unlabored Cardiovascular: normal S1 and S2 GI: Soft, non-tender, non-distended, bowel sounds +, no organomegaly Skin: No new rashes, lesions or bruises on visible skin Extremities: Normal without edema or cyanosis Neurologic: AOx4, CNII-XII intact, normal strength and sensation Psychiatric: Normal affect and mood I have reviewed the patient's vital signs. Lab/Diagnostic Review: Recent Results (from the past 36 hour(s)) POCT glucose Collection Time: 05/19/21 3:53 PM Result Value Ref Range Glucose, POC 120 70 - 199 mg/dL CBC with auto differential Collection Time: 05/19/21 4:08 PM Result Value Ref Range WBC 8.2 3.8 - 9.9 K/cumm Hgb 11.4 (L) 11.9 - 15.5 g/dL Hct 36.2 35.6 - 45.5 % Plt 366 150 - 400 K/cumm MPV 9.7 9.1 - 12.3 fL RBC 3.99 3.90 - 5.20 M/cumm MCV 90.7 81.3 - 96.4 fL MCH 28.6 27.1 - 33.3 pg MCHC 31.5 (L) 32.3 - 35.7 g/dL RDW CV 14.3 11.1 - 14.9 % RDW SD 47.6 35.7 - 48.1 fL NRBC abs 0.00 0.00 - 0.01 K/cumm Comprehensive metabolic panel Collection Time: 05/19/21 4:08 PM Result Value Ref Range Sodium 139 135 - 145 mmol/L Potassium, pl 4.5 3.3 - 4.9 mmol/L Chloride 109 97 - 110 mmol/L CO2 21 (L) 22 - 32 mmol/L Anion gap 9 2 - 15 mmol/L BUN 8 8 - 25 mg/dL Creatinine 1.01 0.60 - 1.10 mg/dL Glucose 134 70 - 199 mg/dL Calcium 8.3 (L) 8.5 - 10.3 mg/dL Bilirubin, total 0.3 0.1 - 1.2 mg/dL Protein, pl 6.7 6.5 - 8.5 g/dL Albumin 3.3 (L) 3.5 - 5.0 g/dL Alk phos 67 40 - 130 Units/L ALT 32 7 - 45 Units/L AST 27 10 - 45 Units/L Protime-INR Collection Time: 05/19/21 4:08 PM Result Value Ref Range PT 20.2 (H) 9.5 - 13.6 sec INR 1.8 (H) 0.9 - 1.2 aPTT Collection Time: 05/19/21 4:08 PM Result Value Ref Range aPTT 33 27 - 37 sec Heparin anti factor Xa activity Collection Time: 05/19/21 4:08 PM Result Value Ref Range Anti Factor Xa 1.70 IUnits/mL Differential, auto Collection Time: 05/19/21 4:08 PM Result Value Ref Range Neutrophil abs 4.6 1.7 - 6.5 K/cumm Imm gran abs 0.1 0.0 - 0.1 K/cumm Lymphocyte abs 2.1 0.8 - 3.3 K/cumm Monocyte abs 0.6 0.2 - 0.8 K/cumm Eosinophil abs 0.6 (H) 0.0 - 0.5 K/cumm Basophil abs 0.1 0.0 - 0.1 K/cumm Neutrophil pct 56.6 % Imm gran pct 1.5 % Lymphocyte pct 25.5 % Monocyte pct 7.2 % Eosinophil pct 7.7 % Basophil pct 1.5 % eGFR Collection Time: 05/19/21 4:08 PM Result Value Ref Range eGFR 56 (L) 90 - 130 mL/min/1.73 m2 Type and screen Collection Time: 05/19/21 4:23 PM Result Value Ref Range Ramón, indirect Negative ABO Rh O Negative Influenza A/B, RSV, and COVID-19 PCR Nasopharyngeal Collection Time: 05/19/21 6:35 PM Specimen: Nasopharyngeal Result Value Ref Range COVID-19 RNA Negative Negative Influenza A RNA Negative Negative Influenza B RNA Negative Negative RSV RNA Negative Negative First COVID-19 test? No Employeed in healthcare? No status? No Group care resident? No Hospitalized? No Is patient in ICU? No Symptomatic as defined by CDC? No POCT glucose Collection Time: 05/19/21 8:43 PM Result Value Ref Range Glucose, POC 82 70 - 199 mg/dL CBC with auto differential Collection Time: 05/20/21 5:39 AM Result Value Ref Range WBC 7.8 3.8 - 9.9 K/cumm Hgb 10.3 (L) 11.9 - 15.5 g/dL Hct 32.7 (L) 35.6 - 45.5 % Plt 339 150 - 400 K/cumm MPV 9.6 9.1 - 12.3 fL RBC 3.62 (L) 3.90 - 5.20 M/cumm MCV 90.3 81.3 - 96.4 fL MCH 28.5 27.1 - 33.3 pg MCHC 31.5 (L) 32.3 - 35.7 g/dL RDW CV 14.4 11.1 - 14.9 % RDW SD 47.9 35.7 - 48.1 fL NRBC abs 0.00 0.00 - 0.01 K/cumm Basic metabolic panel Collection Time: 05/20/21 5:39 AM Result Value Ref Range Sodium 144 135 - 145 mmol/L Potassium, pl 4.5 3.3 - 4.9 mmol/L Chloride 115 (H) 97 - 110 mmol/L CO2 22 22 - 32 mmol/L Anion gap 7 2 - 15 mmol/L BUN 9 8 - 25 mg/dL Creatinine 0.94 0.60 - 1.10 mg/dL Glucose 106 70 - 199 mg/dL Calcium 8.3 (L) 8.5 - 10.3 mg/dL Differential, auto Collection Time: 05/20/21 5:39 AM Result Value Ref Range Neutrophil abs 4.4 1.7 - 6.5 K/cumm Imm gran abs 0.1 0.0 - 0.1 K/cumm Lymphocyte abs 1.8 0.8 - 3.3 K/cumm Monocyte abs 0.7 0.2 - 0.8 K/cumm Eosinophil abs 0.6 (H) 0.0 - 0.5 K/cumm Basophil abs 0.1 0.0 - 0.1 K/cumm Neutrophil pct 57.1 % Imm gran pct 1.5 % Lymphocyte pct 23.6 % Monocyte pct 8.6 % Eosinophil pct 7.9 % Basophil pct 1.3 % eGFR Collection Time: 05/20/21 5:39 AM Result Value Ref Range eGFR 61 (L) 90 - 130 mL/min/1.73 m2 I have reviewed the laboratory results. Imaging Results: ECG 12 lead Vic Farnsworth MD 05/19/2021 3:52 PM ECG 12 lead Date/Time: 05/19/2021 3:50 PM Performed by: Vic Farnsworth MD Authorized by: Leland Mckenna MD Rate: ECG rate: 73 ECG rate assessment: normal Rhythm: Rhythm: sinus rhythm Ectopy: Ectopy: none QRS: QRS axis: Left QRS intervals: Wide Conduction: Conduction: normal ST segments: ST segments: Normal T waves: T waves: flattening Flattening: V1 and V2 Q waves: Q waves: V1 and V2 Other findings: Other findings: LVH Previous ECG: Previous ECG: Compared to current Date of previous EC02/09/2019 Comparison ECG info: Anterior Q waves are new, T flattening is new Similarity: Changes noted Interpretation: Interpretation: abnormal Recommended Follow-up: Recommended follow up: further workup in the ED Comments: Moderate risk of ACS I have independently reviewed and interpreted labs and imaging. 80F with T2DM, pHTN, HTN, CVA??on Eliquis, MV/TV??repair (annuloplasty??2014), s/p CCK 05/11 p/w??BRBPR. * Bright red blood per rectum Assessment & Plan P/w 3x BRBPR 05/19. - Hgb 11.4 (12.4 a few days ago) - last eliquis dose 05/19 AM - CT a/p in 04/2021 with pancolonic diverticulosis - likely diverticular bleed ?? Plan: - CBC q12 - avoid IVF d/t diastolic heart failure - GI on board, appreciate recs - clear liquid diet ?? CKD (chronic kidney disease) Assessment & Plan Cr 1 (baseline) - avoid nephrotoxins ?? Chronic diastolic heart failure (CMS/HCC) (HCC) Assessment & Plan EF 69% but pseudonormal diastolic function on TTE 2020 - Hold lasix ?? Calculus of gallbladder without cholecystitis without obstruction Assessment & Plan Was recently here in early April for RLQ pain, found to have cholecystitis, s/p CCK on 05/11. OR cultures eventually grew out vásquez sensitive Streptococcus anginosus . She was given 4 days of augmentin after discharge. - no signs of infection or abd pain ?? 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 S/P mitral valve repair Assessment & Plan 2004 annuloplasty - TTE 2020 without issues ?? HTN (hypertension), benign Assessment & Plan Hold amlodipine, coreg, losartan d/t GIB Monitor vitals ?? Type 2 diabetes mellitus (HCC) Assessment & Plan A1C 5.9%. Home metformin, glimepride Monitor blood glucose AC and HS Low-dose SSI, would not be inclined to dose up unless BG remarkably high ?? Code Status: Prior Diet: clear liq DVT proph: was on Eliquis, on hold anticipating GI procedure Disposition: as per clinical course, patient coming from home Brant Mayorga MD [facility] [phone] documented in this encounter H&P Notes * Cintia Dey MD PhD - 05/19/2021 7:54 PM CDT History and Physical Division of Hospital Medicine Name: Yuliana Johnson Today: May 19, 2021 : 1940 Age: 80 y.o. female Subjective Ms. Johnson is a 80 y.o. female with chief complaint of Bright red blood per rectum HPI: 80F with T2DM, pHTN, HTN, CVA on Eliquis, MV/TV repair (annuloplasty 2014), s/p CCK 05/11 p/w BRBPR. Per , she had 3 frankly bloody BM today. She was mentating well at home without falls or syncope, but upon arrival to hospital, became a bit more confused. She was saying I don't know to a lot of questions which is atypical for her. However, she is now currently she is back to baseline perhusband. No history of GIB or other bleeds on eliquis. Last BM in ED and without blood. Last eliquis dose this AM. Was recently here in early April for RLQ pain, found to have cholecystitis, s/p CCK on 05/11. OR cultures eventually grew out vásquez sensitive Streptococcus anginosus . She was given 4 days of augmentin after discharge. Denies abd pain, N/V, fever. Lap sites healing well. In the ED, vitals were: AFVSS Labs significant for: Cr 1 (baseline), Hgb 11.4 (12.4 a few days ago) Interventions: none Med rec based on: pt recall I have reviewed and summarized above findings from [facility] and Care Everywhere. Past Medical History: Diagnosis Date ??? Cancer (CMS/HCC) (HCC) breast ??? Diabetes mellitus (HCC) ??? Hyperlipidemia ??? Hypertension Past Surgical History: Procedure Laterality Date ??? HYSTERECTOMY ??? KYPHOPLASTY THORACIC N/A 05/23/2020 ??? MASTECTOMY Left ??? MITRAL VALVE REPAIR No current facility-administered medications on file prior to encounter. Current Outpatient Medications on File Prior to Encounter Medication Sig ??? alendronate (FOSAMAX) 70 mg tablet Take 1 tablet (70 mg total) by mouth every 7 days Take in the morning with a full glass of water, on an empty stomach, and do not take anything else by mouth orlie down for the next 30 min. ??? amLODIPine (NORVASC) 10 mg tablet Take 1 tablet (10 mg total) by mouth daily ??? apixaban (Eliquis) 2.5 mg tablet Take 1 tablet (2.5 mg total) by mouth 2 (two) times a day withmeals ??? carvediloL (COREG) 25 mg tablet Take 1 tablet (25 mg total) by mouth 2 (two) times a day with meals ??? fenofibrate (TRIGLIDE) 160 mg tablet Take 1 tablet (160 mg total) by mouth daily ??? furosemide (LASIX) 20 mg tablet Take 1 tablet (20 mg total) by mouth daily ??? losartan (COZAAR) 100 mg tablet Take 1 tablet (100 mg total) by mouth daily ??? metFORMIN (GLUCOPHAGE) 500 mg tablet Take 1 tablet (500 mg total) by mouth 2 (two) times a day with meals ??? ondansetron (Zofran) 4 mg tablet Take 1 tablet (4 mg total) by mouth every 8 (eight) hours as needed for nausea or vomiting ??? pravastatin (PRAVACHOL) 40 mg tablet Take 1 tablet (40 mg total) by mouth daily ??? senna-docusate (PERICOLACE) 8.6-50 mg Take 1 tablet by mouth daily for 14 days ??? tiotropium bromide (SPIRIVA RESPIMAT) 2.5 mcg/actuation inhaler Inhale 2 puffs daily ??? zolpidem (AMBIEN) 10 mg tablet Take 10 mg by mouth nightly as needed for sleep ??? [DISCONTINUED] clonazePAM (KlonoPIN) 0.5 mg tablet Take 1 tablet by mouth at bedtime as needed for anxiety ??? [DISCONTINUED] oxyCODONE (ROXICODONE) 5 mg immediate release tablet Take 1 tablet (5 mg total) by mouth every 4 (four) hours as needed for pain No Known Allergies Social History Tobacco Use ??? Smoking status: Never Smoker ??? Smokeless tobacco: Never Used Substance Use Topics ??? Alcohol use: No Family History Problem Relation Age of Onset ??? Hypertension Other Family history of hypertension - Relation: Grandmother (Added by TW Conv) ??? Hypertension Maternal Grandfather Family history of hypertension - Relation: Grandfather (Added by TW Conv)/Family history of hypertension - Relation: Grandfather (Added by TW Conv) ??? Hypertension Other Family history of hypertension - Relation: Grandmother (Added by TW Conv) Family History reviewed and non-contributory. Review of Systems All other systems were reviewed and are negative except for ROS listed in HPI. Objective Vitals: 24hr Min/Max: Temp Min: 36.8 ??C (98.2 ??F) Max: 36.8 ??C (98.2 ??F) Pulse Min: 65 Max: 79 BP Min: 125/55 Max: 142/65 Resp Min: 15 Max: 26 SpO2 Min: 95 % Max: 97 % Most Recent Vitals: Vitals: 05/19/211999 BP: 138/65 Pulse: 71 Resp: 18 Temp: SpO2: 96% No intake or output data in the 24 hours ending 05/19/212052 Physical exam: Constitutional: NAD, well developed, well nourished Eyes: EOMI, anicteric ENT: NCAT, oropharynx normal, moist mucus membranes Lungs: Clear to auscultation in all lung aslazar, unlabored, trachea midline Cardiovascular: RRR, normal S1 and S2, no murmurs GI: Lap sites c/d/i. Soft, non-tender, non-distended, bowel sounds +, no organomegaly Skin: No new rashes, lesions or bruises Extremities: Normal without edema or cyanosis Lymph: No cervical, supraclavicular, axillary or inguinal adenopathy Neurologic: AOx4, CNII-XII intact, normal strength and sensation Psychiatric: Normal affect and mood I have reviewed the patient's vital signs. Lab/Diagnostic Review: Recent Results (from the past 36 hour(s)) POCT glucose Collection Time: 05/19/21 3:53 PM Result Value Ref Range Glucose, POC 120 70 - 199 mg/dL CBC with auto differential Collection Time: 05/19/21 4:08 PM Result Value Ref Range WBC 8.2 3.8 - 9.9 K/cumm Hgb 11.4 (L) 11.9 - 15.5 g/dL Hct 36.2 35.6 - 45.5 % Plt 366 150 - 400 K/cumm MPV 9.7 9.1 - 12.3 fL RBC 3.99 3.90 - 5.20 M/cumm MCV 90.7 81.3 - 96.4 fL MCH 28.6 27.1 - 33.3 pg MCHC 31.5 (L) 32.3 - 35.7 g/dL RDW CV 14.3 11.1 - 14.9 % RDW SD 47.6 35.7 - 48.1 fL NRBC abs 0.00 0.00 - 0.01 K/cumm Comprehensive metabolic panel Collection Time: 05/19/21 4:08 PM Result Value Ref Range Sodium 139 135 - 145 mmol/L Potassium, pl 4.5 3.3 - 4.9 mmol/L Chloride 109 97 - 110 mmol/L CO2 21 (L) 22 - 32 mmol/L Anion gap 9 2 - 15 mmol/L BUN 8 8 - 25 mg/dL Creatinine 1.01 0.60 - 1.10 mg/dL Glucose 134 70 - 199 mg/dL Calcium 8.3 (L) 8.5 - 10.3 mg/dL Bilirubin, total 0.3 0.1 - 1.2 mg/dL Protein, pl 6.7 6.5 - 8.5 g/dL Albumin 3.3 (L) 3.5 - 5.0 g/dL Alk phos 67 40 - 130 Units/L ALT 32 7 - 45 Units/L AST 27 10 - 45 Units/L Protime-INR Collection Time: 05/19/21 4:08 PM Result Value Ref Range PT 20.2 (H) 9.5 - 13.6 sec INR 1.8 (H) 0.9 - 1.2 aPTT Collection Time: 05/19/21 4:08 PM Result Value Ref Range aPTT 33 27 - 37 sec Heparin anti factor Xa activity Collection Time: 05/19/21 4:08 PM Result Value Ref Range Anti Factor Xa 1.70 IUnits/mL Differential, auto Collection Time: 05/19/21 4:08 PM Result Value Ref Range Neutrophil abs 4.6 1.7 - 6.5 K/cumm Imm gran abs 0.1 0.0 - 0.1 K/cumm Lymphocyte abs 2.1 0.8 - 3.3 K/cumm Monocyte abs 0.6 0.2 - 0.8 K/cumm Eosinophil abs 0.6 (H) 0.0 - 0.5 K/cumm Basophil abs 0.1 0.0 - 0.1 K/cumm Neutrophil pct 56.6 % Imm gran pct 1.5 % Lymphocyte pct 25.5 % Monocyte pct 7.2 % Eosinophil pct 7.7 % Basophil pct 1.5 % eGFR Collection Time: 05/19/21 4:08 PM Result Value Ref Range eGFR 56 (L) 90 - 130 mL/min/1.73 m2 Type and screen Collection Time: 05/19/21 4:23 PM Result Value Ref Range Ramón, indirect Negative ABO Rh O Negative Influenza A/B, RSV, and COVID-19 PCR Nasopharyngeal Collection Time: 05/19/21 6:35 PM Specimen: Nasopharyngeal Result Value Ref Range COVID-19 RNA Negative Negative Influenza A RNA Negative Negative Influenza B RNA Negative Negative RSV RNA Negative Negative First COVID-19 test? No Employeed in healthcare? No status? No Group care resident? No Hospitalized? No Is patient in ICU? No Symptomatic as defined by CDC? No POCT glucose Collection Time: 05/19/21 8:43 PM Result Value Ref Range Glucose, POC 82 70 - 199 mg/dL I have reviewed the laboratory results and highlighted relevant ones in HPI. Imaging Results: ECG 12 lead Vic Farnsworth MD 05/19/2021 3:52 PM ECG 12 lead Date/Time: 05/19/2021 3:50 PM Performed by: Vic Farnsworth MD Authorized by: Leland Mckenna MD Rate: ECG rate: 73 ECG rate assessment: normal Rhythm: Rhythm: sinus rhythm Ectopy: Ectopy: none QRS: QRS axis: Left QRS intervals: Wide Conduction: Conduction: normal ST segments: ST segments: Normal T waves: T waves: flattening Flattening: V1 and V2 Q waves: Q waves: V1 and V2 Other findings: Other findings: LVH Previous ECG: Previous ECG: Compared to current Date of previous EC02/09/2019 Comparison ECG info: Anterior Q waves are new, T flattening is new Similarity: Changes noted Interpretation: Interpretation: abnormal Recommended Follow-up: Recommended follow up: further workup in the ED Comments: Moderate risk of ACS Additional Diagnostics: EKG I have independently reviewed and interpreted the EKG. Findings include: nonischemic Assessment/Plan * Bright red blood per rectum Assessment & Plan P/w 3x BRBPR today. - Hgb 11.4 (12.4 a few days ago) - last BM in ED without blood - last eliquis dose 05/19 AM - CT a/p in 04/2021 with pancolonic diverticulosis - likely diverticular bleed Plan: - CBC q12 - avoid IVF d/t diastolic heart failure - GI c/s - NPO CKD (chronic kidney disease) Assessment & Plan Cr 1 (baseline) - avoid nephrotoxins Chronic diastolic heart failure (CMS/HCC) ([facility] [place]) Assessment & Plan EF 69% but pseudonormal diastolic function on TTE 2020 - Hold lasix Calculus of gallbladder without cholecystitis without obstruction Assessment & Plan Was recently here in early April for RLQ pain, found to have cholecystitis, s/p CCK on 05/11. OR cultures eventually grew out vásquez sensitive Streptococcus anginosus . She was given 4 days of augmentin after discharge. - no signs of infection or abd pain CVA (cerebral vascular accident) (CMS/HCC) ([facility] [place]) Assessment & Plan On eliquis (CVA thought to be embolic in nature) and statin only - hold eliquis - statin S/P mitral valve repair Assessment & Plan 2004 annuloplasty - TTE 2020 without issues HTN (hypertension), benign Assessment & Plan Hold amlodipine, coreg, losartan d/t GIB Type 2 diabetes mellitus (HCC) Assessment & Plan A1C 5.9%. Home metformin, glimepride - follow BG on BMP Code Status: Prior Diet: NPO Diet Cintia Dey MD PhD 05/19/2021 8:53 PM documented in this encounter Consult Notes * Maude Martinez MD PhD - 05/20/2021 10:18 AM CDTAssociated Order(s): IP CONSULT TO GASTROENTEROLOGY General GI Initial Consult Chief complaint: BRBPR Reason for consult: BRBPR Requesting provider: Brant Mayorga MD HPI: This is a 80 y.o. female PMH DM2, HTN, CVA??on Eliquis, MV/TV??repair (annuloplasty??2014), mod pulm HTN (mean wedge pressure 28 mm Hg), endometrial adenocarcinoma s/p IDRIS-BSO 2002, s/p CCK 05/11/21, who presents with??BRBPR. GI consulted for the same. Patient presented to the hospital after several bloody bowel movements since 05/18(two days ago). She continues to have regular brown stool (solid to semi- solid) with bloody streaks. Per nursing staff, she had a blood-streaked bowel movement overnight, but most recent bowel movement this morning wassmall amounts of brown stool. Patient denies abdominal pain. She has had no nausea/emesis and has anormal appetite. Patient had prior colonoscopy 04/2010 with sigmoid diverticulosis and two small tubular adenomas in the descending colon, recommended for 5-year surveillance but has not had further endoscopy (per chart review, had cardiology work-up ongoing at the time she was most recently contacted 2018). Most recent abdominal imaging was with CT A/P 05/09/21 show pancolonic diverticulosis. Patient presented to the ED with HR 75, BP 129/68. Most current labs with Hgb 10.3 (baseline 11s-12s), MCV 90.3, Plt 339, INR 1.8 (last apixaban 05/19), BUN 9, Cr 0.94. Past Medical History: Diagnosis Date ??? Cancer (CMS/HCC) (HCC) breast ??? Diabetes mellitus (HCC) ??? Hyperlipidemia ??? Hypertension Past Surgical History: Procedure Laterality Date ??? HYSTERECTOMY ??? KYPHOPLASTY THORACIC N/A 05/23/2020 ??? MASTECTOMY Left ??? MITRAL VALVE REPAIR Medications Prior to Admission Medication Sig Dispense Refill Last Dose ??? alendronate (FOSAMAX) 70 mg tablet Take 1 tablet (70 mg total) by mouth every 7 days Take in the morning with a full glass of water, on an empty stomach, and do not take anything else by mouth orlie down for the next 30 min. 12 tablet 3 ??? amLODIPine (NORVASC) 10 mg tablet Take 1 tablet (10 mg total) by mouth daily 90 tablet 2 ??? apixaban (Eliquis) 2.5 mg tablet Take 1 tablet (2.5 mg total) by mouth 2 (two) times a day withmeals 180 tablet 2 ??? carvediloL (COREG) 25 mg tablet Take 1 tablet (25 mg total) by mouth 2 (two) times a day with meals 180 tablet 2 ??? fenofibrate (TRIGLIDE) 160 mg tablet Take [...] by mouth daily 90 tablet 0 ??? senna-docusate (PERICOLACE) 8.6-50 mg Take 1 tablet by mouth daily for 14 days 14 tablet 0 ??? tiotropium bromide (SPIRIVA RESPIMAT) 2.5 mcg/actuation inhaler Inhale 2 puffs daily 70 mcg of tiotropium 2 ??? zolpidem (AMBIEN) 10 mg tablet Take 10 mg by mouth nightly as needed for sleep No Known Allergies Social History Tobacco Use ??? Smoking status: Never Smoker ??? Smokeless tobacco: Never Used Substance Use Topics ??? Alcohol use: No ??? Drug use: No Family History Problem Relation Age of Onset ??? Hypertension Other Family history of hypertension - Relation: Grandmother (Added by TW Conv) ??? Hypertension Maternal Grandfather Family history of hypertension - Relation: Grandfather (Added by TW Conv)/Family history of hypertension - Relation: Grandfather (Added by TW Conv) ??? Hypertension Other Family history of hypertension - Relation: Grandmother (Added by TW Conv) Review of Systems: Review of systems per HPI and otherwise all other systems are negative Vitals: 24hr Min/Max: Temp Min: 36.8 ??C (98.2 ??F) Max: 37.2 ??C (99 ??F) Pulse Min: 65 Max: 79 BP Min: 125/55 Max: 147/63 Resp Min: 15 Max: 26 SpO2 Min: 95 % Max: 100 % Most Recent : Vitals: 05/20/21 0840 BP: 147/63 Pulse: 76 Resp: 17 Temp: 37 ??C (98.6 ??F) SpO2: 100% No intake/output data recorded. No intake/output data recorded. Objective Physical Exam: General Appearance: Sitting up in a sofa chair in no distress. HEENT: Normocephalic, without obvious abnormality, atraumatic. No scleral icterus or conjunctival pallor. Lungs: Respirations unlabored Cardiovascular: Normal rate and regular rhythm Abdomen: Soft, non-distended, non-tender to palpation, no palpable masses or organomegaly, no guarding Rectal: Scant stool, normal rectal tone, no blood Extremities: No cyanosis or edema Skin: No notable rash Neurologic: Alert and oriented x 4. No focal deficits. Psychiatric: Appropriate mood and affect Lab/Radiology/Diagnostic Review: Recent Labs Lab Units 05/20/21 0838 05/20/21 0539 05/19/21 2043 05/19/21 1608 05/19/21 1553 05/15/21 1342 WBC K/cumm -- 7.8 -- 8.2 -- 8.2 HEMOGLOBIN g/dL -- 10.3* -- 11.4* -- 12.4 HEMATOCRIT % -- 32.7* -- 36.2 -- 39.9 PLATELETS K/cumm -- 339 -- 366 -- 293 SODIUM mmol/L -- 144 -- 139 -- 137 POTASSIUM PLASMA mmol/L -- 4.5 -- 4.5 -- 5.0* CHLORIDE mmol/L -- 115* -- 109 -- 107 CO2 mmol/L -- 22 -- 21* -- 19* ANIONGAP mmol/L -- 7 -- 9 -- 11 GLUCOSE mg/dL -- 106 -- 134 -- 102 POC GLUCOSE MONITOR mg/dL 91 -- 82 -- < > -- BUN SERUM mg/dL -- 9 -- 8 -- 17 CREATININE mg/dL -- 0.94 -- 1.01 -- 1.02 CALCIUM mg/dL -- 8.3* -- 8.3* -- 8.3* ALBUMIN g/dL -- -- -- 3.3* -- 3.1* BILIRUBIN TOTAL mg/dL -- -- -- 0.3 -- 0.4 ALK PHOS Units/L -- -- -- 67 -- 76 ALT Units/L -- -- -- 32 -- 81* AST Units/L -- -- -- 27 -- 52* INR -- -- -- 1.8* -- -- < > = values in this interval not displayed. Results for orders placed during the hospital encounter of 05/09/21US RUQNarrativeEXAMINATION: LIMITED ABDOMINAL SONOGRAMHISTORY: 80-year-old woman presenting with intermittent abdominalpain and evidence of cholelithiasis on recent CT.COMPARISON: Contemporaneous CT dated 05/09/2021.FINDINGS:Gallbladder: The gallbladder is borderline distended. There arestones and sludge within the gallbladder. A large gallstone isimpacted within the neck that does not change position with standingor proning maneuvers. There is gallbladder wall thickening measuringup to 5 mm. Common tail artifact is identified arising from theanterior wall the gallbladder compatible with adenomyomatosis. Nopericholecystic fluid. Evaluation of sonographic Silva sign isprecluded by premedication with opioid analgesia.Bile Duct: There is minimal intrahepatic bile duct dilatation. Thediameter of the common duct is 5 mm in the proximal segment and 4 mmin the mid segment. The distal common bile duct is obscured byoverlying bowel gas. Right Kidney: There is no hydronephrosis in thevisualized portions of the right kidney.ImpressionEquivocal findings for acute calculus cholecystitis characterized byborderline gallbladder distention, borderline wall thickening and,impacted stone within the gallbladder neck with associated b iliarysludge. Evaluation of sonographic Silva sign is precluded bypremedication with opioid analgesia.Dictated by: Akira Rodriguez radiology attending physician has personally reviewed this study,and had reviewed and/or edited this written report and agrees withit.Electronically signed by: Ashley Bauman M.D. and Results for orders placed during the hospital encounter of 05/09/21CT Abdomen Pelvis W ContrastNarrativeEXAMINATION: Computed tomography of the abdomen and pelvis withintravenous contrastHISTORY: 80-year-old woman presenting with acute right lower quadrantabdominal pain.TECHNIQUE: Transaxial computed tomographic images of the abdomen andpelvis were obtained with intravenous contrast according to thestandard protocol after the uneventful administration of 94 mLOpti-Ray 350 intravenous contrast.COMPARISON: None available.FINDINGS:Evaluation of the lung bases is mildly limited by motion. Minimalright basilar dependent subsegmental atelectasis. No consolidation orpleuraleffusion visualized lung bases. The heart size is normalwithout pericardial effusion. Mitral and tricuspid valve prosthesesare identified.The liver, adrenal glands, pancreas, and spleen are normal. There isborderline distention of the gallbladder measuring 10 cm in maximallong axis dimension when measured using multiplanar reformatting. Nodefinite evidence of mild wall thickening or pericholecysticinflammatory. A large gallstone is present in the gallbladder neck.Long segment prominence of the common bile duct is identified asmoothly tapers to the ampulla. No intrahepatic bile duct dilation.The kidneys symmetrically enhance. Multifocal cortical scarring isnoted throughout both kidneys. No hydronephrosis or nephrolithiasis.The urinary bladder is normal. The uterus is surgically absent.Postsurgical changes of bilateral pelvic lymph node dissection. Nosuspicious adnexal lesion.The small bowel is normal in course and caliber without evidence ofabnormal wall thickening or obstruction. The a ppendix is normal.Pancolonic diverticulosis, most advanced and marked involving thesigmoid colon. No evidence of diverticulitis. No organizedintra-abdominal fluid collection. No pneumoperitoneum or ascites.Scattered calcified atherosclerosis of a nonaneurysmal abdominalaorta. The mesenteric vasculature is patent. No suspicious abdominalor pelvic lymphadenopathy.A left femoral intertrochanteric sclerotic lesion centered representa bone island (series: 2, image: 187). Old T12 and L1 vertebral bodycompression fractures with vertebral augmentation change. Mild grade1 anterolisthesis of L4 on L5. Multilevel lumbar spondylosis. Nosuspicious lytic or sclerotic osseous lesion.Impression1. Borderline gallbladder distention and cholelithiasis withoutdefinite evidence of acute cholecystitis. Recommend clinicalcorrelation for symptoms of biliary colic.2. Pancolonic diverticulosis without evidence of diverticulitis.Dictated by: Akira Rodriguez radiology attending physician has personally reviewed this study,and had reviewed and/or edited this written report and agrees withit.Electronically signed by: Charly Quintanilla M.D. Assessment/Plan 80 y.o. female PMH DM2, HTN, CVA??on Eliquis, MV/TV??repair (annuloplasty??2014), mod pulm HTN (mean wedge pressure 28 mm Hg), endometrial adenocarcinoma s/p IDRIS-BSO 2002, s/p CCK 05/11/21, who presents with??BRBPR. GI consulted for the same. #BRBPR Patient with blood-streaked stool associated with 1-2 unit Hgb decline from baseline. She remains hemodynamically stable. She is past due for surveillance of prior removed polyps (two small tubularadenomas removed on colonoscopy 2010). Can consider bleeding from mild diverticular bleed that has stopped. Clinical history also consistent with hemorrhoidal bleed, though no comments on them (or pictures of retroflexion) on prior colonoscopy reports. Must also consider bleeding from colonic polyps. - Maintain adequate IV access, active T&S - Serial CBCs, transfuse to keep Hgb > 7. If with active bleeding, target plt > 50, INR < 2. - Clear liquid diet until Hgb trend stabilizes. - Patient would benefit from lower endoscopic assessment. Place on clear liquid diet 05/21. We will continue to assess utility of inpatient vs outpatient endoscopy. We will continue to follow-up with you. Thank you for involving us in the care of this patient. If you have any questions, please call during weekdays or during after hours and weekends. Maude Martinez MD PhD Gastroenterology Fellow Cosigned by Paulette Calderon MD at 05/20/2021 10:22 PM CDT Associated attestation - Paulette Calderon MD - 05/20/2021 10:22 PM CDT I have seen and examined the patient on 05/20/21. I agree with the findings and plan of care as documented in the resident's/fellow's note.. documented in this encounter Nursing Notes * Key Rhoades RN - 05/22/2021 11:47 AM CDT DC paperwork reviewed with patient and at 1140. All questions asked and answered; signed copy in chart. Patient's belongings returned. No mobile pharmacy meds to be filled. PIV removed. documented in this encounter ED Notes * Vic Farnsworth MD - 05/19/2021 3:48 PM CDT HPI Chief Complaint Patient presents with ??? Black or Bloody Stool HPI 80F with PMH T2DM, pHTN, HTN, CVA on Eliquis, MV/TV repair (annuloplasty 2014), recent cholecystectomy presenting with BRBPR. Per patient's , patient had 3 frankly bloody BMs today. She was mentating well at home without falls or syncope, but upon arrival to hospital, became a bit more confused. She is AAOx3, but answers I don't know to many questions about her medical history or why shebrought in, which is new per patient's . Patient denies SOB, CP, fatigue. She does not recall if she has ever had BRBPR before. She does take eliquis BID and took it this morning. She had CTA05/09/2021 with pancolonic diverticulosis without evidence of diverticulitis. Patient History: Patient Active Problem List Diagnosis Date Noted ??? Bright red blood per rectum 05/19/2021 ??? CKD (chronic kidney disease) 05/19/2021 ??? Non-intractable vomiting 05/14/2021 ??? Drug-induced constipation 05/14/2021 ??? Elevated LFTs 05/14/2021 ??? Chronic diastolic heart failure (CMS/HCC) (HCC) 05/10/2021 ??? Abdominal pain 05/09/2021 ??? Calculus of gallbladder without cholecystitis without obstruction 05/09/2021 ??? Primary insomnia 12/31/2020 ??? Establishing care with new doctor, encounter for 12/31/2020 ??? Age-related osteoporosis without current pathological fracture 12/31/2020 ??? Compression fracture of T12 vertebra (HCC) 04/22/2020 ??? CVA (cerebral vascular accident) (CMS/HCC) (HCC) 02/09/2019 ??? Arteriosclerotic vascular disease 07/22/2015 ??? Tricuspid valve disorder 07/22/2015 ??? S/P mitral valve repair 02/10/2015 ??? Pulmonary hypertension (CMS/HCC) (HCC) 11/24/2014 ??? Type 2 diabetes mellitus (HCC) 10/07/2014 ??? Dyslipidemia 10/07/2014 ??? HTN (hypertension), benign 10/07/2014 ??? Mitral valve insufficiency 10/07/2014 Past Medical History: Diagnosis Date ??? Cancer (CMS/HCC) (HCC) breast ??? Diabetes mellitus (HCC) ??? Hyperlipidemia ??? Hypertension Past Surgical History: Procedure Laterality Date ??? HYSTERECTOMY ??? KYPHOPLASTY THORACIC N/A 05/23/2020 ??? MASTECTOMY Left ??? MITRAL VALVE REPAIR Family History Problem Relation Age of Onset ??? Hypertension Other Family history of hypertension - Relation: Grandmother (Added by TW Conv) ??? Hypertension Maternal Grandfather Family history of hypertension - Relation: Grandfather (Added by TW Conv)/Family history of hypertension - Relation: Grandfather (Added by TW Conv) ??? Hypertension Other Family history of hypertension - Relation: Grandmother (Added by TW Conv) Social History Tobacco Use ??? Smoking status: Never Smoker ??? Smokeless tobacco: Never Used Substance Use Topics ??? Alcohol use: No ??? Drug use: No Social History Social History Narrative ??? Not on file Review of Systems Review of Systems Constitutional: Negative for chills and fever. HENT: Negative for ear pain and sore throat. Eyes: Negative for pain and visual disturbance. Respiratory: Negative for cough and shortness of breath. Cardiovascular: Negative for chest pain and palpitations. Gastrointestinal: Positive for abdominal pain (R sided) and blood in stool. Negative for vomiting. Genitourinary: Negative for dysuria and hematuria. Musculoskeletal: Negative for arthralgias and back pain. Skin: Negative for color change and rash. Neurological: Negative for seizures and syncope. All other systems reviewed and are negative. Physical Exam ED Triage Vitals Temp Pulse Resp BP SpO2 05/19/21 1536 05/19/21 1536 05/19/21 1536 05/19/21 1536 05/19/21 1536 36.8 ??C (98.2 ??F) 75 15 129/68 97 % Temp src Heart Rate Source Patient Position BP Location FiO2 (%) 05/19/21 1536 05/19/21 2144 05/19/21 2144 05/19/21 2144 -- Oral Pulse Oximetry Sitting Right arm Physical Exam Vitals and nursing note reviewed. Constitutional: General: She is not in acute distress. Appearance: She is well-developed. HENT: Head: Normocephalic and atraumatic. Eyes: Conjunctiva/sclera: Conjunctivae normal. Cardiovascular: Rate and Rhythm: Normal rate and regular rhythm. Heart sounds: Normal heart sounds. No murmur heard. Pulmonary: Effort: Pulmonary effort is normal. No respiratory distress. Breath sounds: Normal breath sounds. Abdominal: General: Bowel sounds are normal. There is no distension. Palpations: Abdomen is soft. Tenderness: There is no abdominal tenderness. There is no guarding. Genitourinary: Comments: Rectal exam with minimal stool in vault. No blood on glove after examination. Musculoskeletal: Cervical back: Neck supple. Skin: General: Skin is warm and dry. Neurological: Mental Status: She is alert and oriented to person, place, and time. Comments: Answering I don't know to other questions and more confused per patient's . MDM Medical Decision Making Summarize previous history: 80F with PMH T2DM, pHTN, HTN, CVA, MV repair (2014) on Eliquis, recent cholecystectomy presenting with BRBPR. Patient HDS, but slightly confused per . CTAP with diverticulosis noted. Plan: basic labs, T&S, coags, anti-Xa level, likely GI c/s Attending Summary of Care Patient who is s/p CVA and had laparoscopic nadine 8 days ago here after having 3 bloody stools since this morning. states he saw the last 2, saw blood in th toilet before then but normal urine in toilet between BMs. States his is pale and c/o R abd pain earlier. Patient has no complaints. Is taking Eliquis for MVR. Alert when aroused, seems mildly drousy. VS noted ENT - conj pink. Tongue moist. Lungs clear tidal movement. Cor regular S1S2. Abd mild distension with some tympany, healing scope entry scars, no tenderness, soft. Rectal - scant stool, no blood. Extno edema. Assess - LGIB by history, likely diverticular vs polyps, possible internal hemorrhoids; pre-existing valvular heart disease s/p annuloplasty, s/p CVA Plan - screening labs, monitor stool output, observe. Likely to be admitted for GI evaluation. I have seen and examined the patient on 05/19/2021. I agree with the findings and plan of care as documented in the resident's note. ED Course as of 05/20/21 1517 Time: 05/19 1633 Value: Hgb(!): 11.4 Comment: 12.4 4 days ago. By: Ana Mosquera MD Time: 05/19 1637 Comment: Will let GI know about patient, but likely no acute intervention as patient's vitals and Hgb stable. By: Ana Mosquera MD Time: 05/19 1656 Comment: Spoke with GI, they recommend making patient NPO for now and will come see patient. By: Ana Mosquera MD Time: 05/19 1658 Comment: Patient had soft brown BM, no blood seen. By: Ana Mosquera MD Time: 05/20 1835 Comment: Signed out to medicine. By: Ana Mosquera MD Time: 03/22 1912 Comment: Sign out 80 year old f w history of BRBPR, confused per . HD stable. BM here without blood. GI aware, NPO for scope tomorrow. By: Denzel Murillo MD Bright red blood per rectum Type 2 diabetes mellitus with other neurologic complication, 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, old, cognitive deficits Ana Mosquera MD Resident 05/19/212005 Vic Farnsworth MD 05/20/21 1517 * Liv Pace RN - 05/19/2021 3:43 PM CDT Bed: ED2-31 Expected date: Expected time: Means of arrival: Car Comments: Liv Pace RN 05/19/21 1543 * Nuris Goldstein RN - 05/19/2021 3:40 PM CDT Patient arrives from home with her after having 3 large, bloody bowel movements today. Patient had her gallbladder removed last week. Patient's notes that she is having more pain, bloody stool, and not quite acting right. Patient has noticeable nystagmus, which the is not sure when it started. Patient is unable to state why she's here but endorses not feeling well. [facility] stroke 2019, but said she does not really have defects from her stroke. documented in this encounter Miscellaneous Notes * Hospital Course - Brant Mayorga MD - 05/22/2021 12:06 PM CDT Bright red blood per rectum/hematochezia P/w 3x BRBPR 05/19. Hgb 11.4 (12.4 a few days ago). Last eliquis dose 05/19 AM which was held on admission. CT a/p in 04/2021 with pancolonic diverticulosis, presumably diverticular bleed. CBC was monitored q12 hours. avoided IVF d/t diastolic heart failure. Was on clear liq diet in anticipation of procedure and the diet as advanced. Had 2 episodes of BM 04/23without any visible blood. Monitored cbc, last Hb 10.7<11.3<10.9<10.9<10.3<11.4<12.4. Will resume Eliquis as outpatient as the Hb is still not at baseline. Restarted on Coreg and losartan, amlodipine and Eliquis will remain on hold. CKD (chronic kidney disease) Cr 1 (baseline). avoid nephrotoxins. Monitor renal function Chronic diastolic heart failure (CMS/HCC) ([facility]) EF 69% but pseudonormal diastolic function on TTE 2020. Held lasix and was resumed on discharge Calculus of gallbladder without cholecystitis without obstruction Was recently here in early April for RLQ pain, found to have cholecystitis, s/p CCK on 05/11. OR cultures eventually grew out vásquez sensitive Streptococcus anginosus . She was given 4 days of augmentin after discharge. no signs of infection or abd pain CVA (cerebral vascular accident) (CMS/HCC) ([facility]) On eliquis (CVA thought to be embolic in nature) and statin only. Held eliquis Continued on statin S/P mitral valve repair 2005 annuloplasty. TTE 2020 without issues HTN (hypertension), benign Held amlodipine, coreg, losartan d/t GIB. Monitored vitals. Resumed on Coreg and losartan on discharge Type 2 diabetes mellitus (HCC) A1C 5.9%. held home metformin, glimepride. Monitor blood glucose AC and HS. Was on Low-dose SSI. Continue home meds on discharge. * Plan of Care - Dawn Dominguez RN - 05/22/2021 7:21 AM CDT Problem: Lack of Knowledge: Goal: Ability to state ways to decrease the risk of falls will improve Outcome: Progressing Problem: Safety: Goal: Will remain free from falls Outcome: Progressing Goal: Will remain free from injury from falls Outcome: Progressing Goal: Will remain free from falls and injury in home environment Outcome: Progressing Problem: Health Behavior: Goal: Understanding of discharge needs will improve Outcome: Progressing Goals: Clinical Goals for the Shift: stable VS;free from fall Summary: stable VS; No fall Comfortable,no pain when asked 1207H-discharge home. * Plan of Care - Rochelle Casey RN - 05/22/2021 3:18 AM CDT Goals: Problem: Safety: Goal: Will remain free from falls Outcome: Progressing Goal: Will remain free from injury from falls Outcome: Progressing Goal: Will remain free from falls and injury in home environment Outcome: Progressing Clinical Goals for the Shift: free from falls, monitor BMs, monitor Hgb, restful night Summary: Pt remained free from falls and injury throughout the night. She had one bowel movement, no blood was noted. Her BG remained WDL. She slept the majority of the night. She slept in the chair due to comfortability. * Plan of Care - Maude Martinez MD PhD - 05/21/2021 7:06 PM CDT GENERAL GI SIGN OFF NOTE & RECOMMENDATIONS Date of Sign Off: 05/21/21 Diagnosis: BRBPR, currently resolved PMD: Braydon Lombardi MD Inpatient GI Attending: Dr. Paulette Calderon Summary of Consultation: 80 y.o. female PMH DM2, HTN, CVA??on Eliquis, MV/TV??repair (annuloplasty??2014), mod pulm HTN (mean wedge pressure 28 mm Hg), endometrial adenocarcinoma s/p IDRIS-BSO 2002, s/p CCK 05/11/21, who presents with??BRBPR. GI consulted for the same. Patient with blood-streaked stool associated with 1-2 unit Hgb decline from baseline 11-12s. She remains hemodynamically stable. She had further stools without blood and Hgb remained stable, most recently 10.9 -> 11.3 today. Given patient's history, bleeding may be from diverticulae, hemorrhoids, or new polyps. The option of colonoscopy was discussed at length with the patient and her . They have decided they would not like to pursue this at this time in the setting of cessation of the patient's bleeding. The option of a delayed outpatient colonoscopy was also reviewed and the patient does not wantto pursue this as well. The risks of this decision, including missing a malignancy or malignancy precursor were reviewed with the patient and her at length and they demonstrated understandingin making this informed decision. Sign Off Recommendations - Can trial resumption of anticoagulation. - Patient can continue discussion regarding risks/benefits of colonoscopy (in the setting of her multiple comorbidities) with her outpatient providers. Outpatient Follow Up Plan: outpatient GI/hepatology follow up is not needed. The patient should follow-up with their primary care provider after discharge. Case discussed with Dr. Paulette Calderon. Thank you for involving us in the care of this patient. If you have any questions and the patient is still hospitalized, please call the GI Fellow General Call [facility] phone number available on Pidefar[employer]. Ifthe patient has been discharged, please call the gastroenterology appointments line at [phone] for questions regarding clinic/procedures follow up. Maude Martinez MD PhD Gastroenterology Fellow Cosigned by Paulette Calderon MD at 05/21/2021 10:10 PM CDT Associated attestation - Paulette Calderon MD - 05/21/2021 10:10 PM CDT The resident/fellow saw and examined the patient, we discussed their findings, and I am in agreement with the plan based on the discussion with the resident/fellow. I did not personally examine the patient. Paulette Calderon MD * Plan of Care - Lanette Mistry RN - 05/21/2021 3:23 PM CDT Goals: Clinical Goals for the Shift: free of falls, monitor BMs, monitor Hgb Summary: Pt diet increased from clear liquids to adult diet regular. Meal tolerated. Pt has had multiple BMs since meal; no signs of blood in stool. Uses call light appropriately and has remained free of falls. Hgb continues to increase. VSS on RA. Problem: Lack of Knowledge: Goal: Ability to state ways to decrease the risk of falls will improve Outcome: Progressing Problem: Safety: Goal: Will remain free from falls Outcome: Progressing Goal: Will remain free from injury from falls Outcome: Progressing Goal: Will remain free from falls and injury in home environment Outcome: Progressing Problem: Health Behavior: Goal: Understanding of discharge needs will improve Outcome: Progressing * Plan of Care - Patricia Ellsworth RN - 05/21/2021 12:51 PM CDT Patient declined HH. Patient has walker at home. * Plan of Care - Rochelle Casey RN - 05/21/2021 2:44 AM CDT Goals: Problem: Safety: Goal: Will remain free from falls Outcome: Progressing Goal: Will remain free from injury from falls Outcome: Progressing Goal: Will remain free from falls and injury in home environment Outcome: Progressing Clinical Goals for the Shift: remain free from falls adn injury, restful night, monitor bowel movements Summary: Pt remained free from falls and injury, she was able to sleep well throughout the night. She did not have any bowel movements. She was able to inconsistently call when needing to use the bathroom, and also remained on a bed alarm for safety. * Plan of Care - Lanette Mistry RN - 05/20/2021 3:42 PM CDT Goals: Clinical Goals for the Shift: hemodynamically stable; monitor BMs, VSS Summary: Pt had multiple loose, watery BMs that showed no signs of blood. Pt Q 12 CBC drawn and Hgbresult increased. Diet now changed from clear liquid to full liquid. VSS on RA. No complaints of pain. Will continue to monitor. Problem: Lack of Knowledge: Goal: Ability to state ways to decrease the risk of falls will improve Outcome: Progressing Problem: Safety: Goal: Will remain free from falls Outcome: Progressing Goal: Will remain free from injury from falls Outcome: Progressing Goal: Will remain free from falls and injury in home environment Outcome: Progressing Problem: Health Behavior: Goal: Understanding of discharge needs will improve Outcome: Progressing * Plan of Care - Allegra Galeana, ANESTHESIOLOGIST ASSISTANT - 05/20/2021 8:27 AM CDT Patient is able to administer their MDI independently. Plan - Turn MDI administration over to nursing. * Plan of Care - Tomeka Bailon RN - 05/20/2021 5:24 AM CDT Problem: Lack of Knowledge: Goal: Ability to state ways to decrease the risk of falls will improve Outcome: Progressing Problem: Safety: Goal: Will remain free from falls Outcome: Progressing Goal: Will remain free from injury from falls Outcome: Progressing Goal: Will remain free from falls and injury in home environment Outcome: Progressing Problem: Health Behavior: Goal: Understanding of discharge needs will improve Outcome: Progressing Goals: Clinical Goals for the Shift: Oriented to unit; VSS;Restful night Summary:Pt oriented to the unit; VSS;No complains of pain; Three small BM since admission; NPO since midnight for scope today;CHG bath given;Pt had restful night. * Assessment & Plan Note - Cintia Dey MD PhD - 05/19/2021 8:47 PM CDT Associated Problem(s): S/P mitral valve repair 2005 annuloplasty - TTE 2020 without issues * Assessment & Plan Note - Cintia Dey MD PhD - 05/19/2021 7:52 PM CDT Associated Problem(s): Bright red blood per rectum (Resolved 03/17/2022) P/w 3x BRBPR today. - Hgb 11.4 (12.4 a few days ago) - last BM in ED without blood - last eliquis dose 05/19 AM - CT a/p in 04/2021 with pancolonic diverticulosis - likely diverticular bleed Plan: - CBC q12 - avoid IVF d/t diastolic heart failure - GI c/s - NPO * Assessment & Plan Note - Cintia Dey MD PhD - 05/19/2021 7:52 PM CDT Associated Problem(s): Calculus of gallbladder without cholecystitis without obstruction (Resolved 03/17/2022) Was recently here in early April for RLQ pain, found to have cholecystitis, s/p CCK on 05/11. OR cultures eventually grew out vásquez sensitive Streptococcus anginosus . She was given 4 days of augmentin after discharge. - no signs of infection or abd pain * Assessment & Plan Note - Cintia Dey MD PhD - 05/19/2021 7:52 PM CDT Associated Problem(s): CKD (chronic kidney disease) Cr 1 (baseline) - avoid nephrotoxins * Assessment & Plan Note - Cintia Dey MD PhD - 05/19/2021 7:51 PM CDT Associated Problem(s): Chronic diastolic heart failure (HCC) EF 69% but pseudonormal diastolic function on TTE 2020 - Hold lasix * Assessment & Plan Note - Cintia Dey MD PhD - 05/19/2021 7:51 PM CDT Associated Problem(s): Type 2 diabetes mellitus (HCC) A1C 5.9%. Home metformin, glimepride - follow BG on BMP * Assessment & Plan Note - Cintia Dey MD PhD - 05/19/2021 7:51 PM CDT Associated Problem(s): HTN (hypertension), benign Hold amlodipine, coreg, losartan d/t GIB * Assessment & Plan Note - Cintia Dey MD PhD - 05/19/2021 7:50 PM CDT Associated Problem(s): CVA (cerebral vascular accident) (HCC) On eliquis (CVA thought to be embolic in nature) and statin only - hold eliquis - statin * Plan of Care - Shea Izaguirre RN - 05/19/2021 4:34 PM CDT Pt identified as having recent [facility] admit 7 days ago. [facility] 05/12. Pt presents to ED with large bloody bowel movements today.Pt was discharged home. Pt has followup appointments 05/18 [facility] 05/27. Contact case management or social work if needs. * ED Procedure Note - Vic Farnsworth MD - 05/19/2021 3:50 PM CDTAssociated Order(s): ECG 12 lead Procedure ECG 12 lead Date/Time: 05/19/2021 3:50 PM Performed by: Vic Farnsworth MD Authorized by: Leland Mckenna MD Rate: ECG rate: 73 ECG rate assessment: normal Rhythm: Rhythm: sinus rhythm Ectopy: Ectopy: none QRS: QRS axis: Left QRS intervals: Wide Conduction: Conduction: normal ST segments: ST segments: Normal T waves: T waves: flattening Flattening: V1 and V2 Q waves: Q waves: V1 and V2 Other findings: Other findings: LVH Previous ECG: Previous ECG: Compared to current Date of previous EC02/09/2019 Comparison ECG info: Anterior Q waves are new, T flattening is new Similarity: Changes noted Interpretation: Interpretation: abnormal Recommended Follow-up: Recommended follow up: further workup in the ED Comments: Moderate risk of ACS Vic Farnsworth MD 05/19/21 1552 documented in this encounter Plan of Treatment Not on file documented as of this encounter Procedures Procedure Name Priority Date/Time Associated Diagnosis Comments POCT GLUCOSE DEVICE Routine 05/22/2021 1 1:17 AM CDT POCT GLUCOSE DEVICE Routine 05/22/2021 7 :44 AM CDT EGFR Routine 05/22/2021 4:58 AM CDT DIFFERENTIAL AUTO Timed 05/22/2021 4:5 8 AM CDT CBC WITH AUTO DIFFERENTIAL Timed 05/22/2021 4:58 AM CDT BASIC METABOLIC PANEL Routine 05/22/2021 4:58 AM CDT POCT GLUCOSE DEVICE Routine 05/21/2021 8 :00 PM CDT DIFFERENTIAL AUTO Timed 05/21/2021 4:5 0 PM CDT CBC WITH AUTO DIFFERENTIAL Timed 05/21/2021 4:50 PM CDT POCT GLUCOSE DEVICE Routine 05/21/2021 4 :49 PM CDT POCT GLUCOSE DEVICE Routine 05/21/2021 1 0:38 AM CDT POCT GLUCOSE DEVICE Routine 05/21/2021 7 :43 AM CDT DIFFERENTIAL AUTO Timed 05/21/2021 5:2 5 AM CDT CBC WITH AUTO DIFFERENTIAL Timed 05/21/2021 5:25 AM CDT EGFR Routine 05/21/2021 3:39 AM CDT BASIC METABOLIC PANEL Routine 05/21/2021 3:39 AM CDT POCT GLUCOSE DEVICE Routine 05/20/2021 7 :50 PM CDT DIFFERENTIAL AUTO Timed 05/20/2021 4:4 7 PM CDT POCT GLUCOSE DEVICE Routine 05/20/2021 4 :47 PM CDT CBC WITH AUTO DIFFERENTIAL Timed 05/20/2021 4:47 PM CDT POCT GLUCOSE DEVICE Routine 05/20/2021 1 1:36 AM CDT POCT GLUCOSE DEVICE Routine 05/20/2021 8 :38 AM CDT EGFR Routine 05/20/2021 5:39 AM CDT DIFFERENTIAL AUTO Timed 05/20/2021 5:3 9 AM CDT CBC WITH AUTO DIFFERENTIAL Timed 05/20/2021 5:39 AM CDT BASIC METABOLIC PANEL Routine 05/20/2021 5:39 AM CDT POCT GLUCOSE DEVICE Routine 05/19/2021 8 :43 PM CDT INFLUENZA A/B, RSV, AND COVID-19 PCR Routine 05/19/2021 6:35 PM CDT POCUS CARDIAC 05/19/2021 5:28 PM CDT TYPE AND SCREEN STAT 05/19/2021 4:23 PM CDT EGFR STAT 05/19/2021 4:08 PM CDT DIFFERENTIAL AUTO STAT 05/19/2021 4:0 8 PM CDT HEPARIN ANTI FACTOR XA ACTIVITY STAT 05/19/2021 4:08 PM CDT CBC WITH AUTO DIFFERENTIAL STAT 05/19/2021 4:08 PM CDT APTT STAT 05/19/2021 4:08 PM CDT PROTIME-INR STAT 05/19/2021 4:08 PM CDT COMPREHENSIVE METABOLIC PANEL STAT 05/19/2021 4:08 PM CDT POCT GLUCOSE DEVICE Routine 05/19/2021 3 :53 PM CDT ECG 12-LEAD STAT 05/19/2021 3:50 PM CDT documented in this encounter Results * POCT glucose (05/22/2021 11:17 AM CDT) Glucose, POC 112 70 - 199 mg/dL [facility] Blood 05/22/2021 11:1 7 AM CDT 05/22/2021 11:17 AM CDT Brant Mayorga MD LAB POCT ORDERABLES - DEVICE Fi nal Result Performing Organization Address [facility] Co de Phone Number [facility] [employer] [place] [address] * POCT glucose (05/22/2021 7:44 AM CDT) [facility] Glucose, POC 86 70 - 199 mg/dL [facility] Blood 05/22/2021 7:44 AM CDT 05/22/2021 7:44 AM CDT Brant Mayorga MD LAB POCT ORDERABLES - DEVICE Fi nal Result Performing Organization Address [facility] Co de Phone Number [facility] [employer] [place] [address] * (ABNORMAL) eGFR (05/22/2021 4:58 AM CDT) [facility] eGFR 71(L) 90 - 130 mL/min/1. 73 m2 [facility] Comment: Interpretive Data Reference Interval Normal ?>/= [...] of Race in Diagnosing Kidney Disease, JASN 2020). The CKD-EPI equation should not be used for patients with unstable renal function and has not been validated in children and those over 70. Current interpretive data was last reviewed 2020. Blood 05/22/2021 4:58 AM CDT 05/22/2021 5:22 AM CDT us Cintia Dey MD PhD LAB BLOOD ORDERABLES Final Result [facility] Department [place] [address] * (ABNORMAL) Differential, auto (05/22/2021 4:58 AM CDT) Neutrophil abs 5.5 1.7 - 6.5 K/cumm [facility] Imm gran abs 0.2(H) 0.0 - 0.1 K/cumm [facility] Lymphocyte abs 3.1 0.8 - 3.3 K/cumm [facility] Monocyte abs 0.9(H) 0.2 - 0.8 K/cumm [facility] Eosinophil abs 0.7(H) 0.0 - 0.5 K/cumm [facility] Basophil abs 0.2(H) 0.0 - 0.1 K/cumm [facility] Neutrophil pct 52.5 % [facility] Comment: Interpretive Data Percent cell count reference ranges are not reported, since discordance with absolute values may lead to misinterpretation of CBC data. Current Interpretive Data was last revised on 2017. Imm gran pct 1.5 % [facility] Comment: Interpretive Data Percent cell count reference ranges are not reported, since discordance with absolute values may lead to misinterpretation of CBC data. Current Interpretive Data was last revised on 2017. Lymphocyte pct 29.8 % [facility] Comment: Interpretive Data Percent cell count reference ranges are not reported, since discordance with absolute values may lead to misinterpretation of CBC data. Current Interpretive Data was last revised on 2017. Monocyte pct 8.3 % [facility] Comment: Interpretive Data Percent cell count reference ranges are not reported, since discordance with absolute values may lead to misinterpretation of CBC data. Current Interpretive Data was last revised on 2017. Eosinophil pct 6.2 % [facility] Comment: Interpretive Data Percent cell count reference ranges are not reported, since discordance with absolute values may lead to misinterpretation of CBC data. Current Interpretive Data was last revised on 2017. Basophil pct 1.7 % [facility] Comment: Interpretive Data Percent cell count reference ranges are not reported, since discordance with absolute values may lead to misinterpretation of CBC data. Current Interpretive Data was last revised on 2017. Blood 05/22/2021 4:58 AM CDT 05/22/2021 5:22 AM CDT us Cintia Dey MD PhD LAB BLOOD ORDERABLES Final Result [facility] [place] [address] * (ABNORMAL) Basic metabolic panel (05/22/2021 4:58 AM CDT) Sodium 142 135 - 145 mmol/L [facility] Potassium, pl 4.1 3.3 - 4.9 mmol/L [facility] Chloride 113(H) 97 - 110 mmol/L [facility] CO2 21(L) 22 - 32 mmol/L [facility] Anion gap 8 2 - 15 mmol/L [facility] BUN 8 8 - 25 mg/dL [facility] Creatinine 0.82 0.60 - 1.10 mg/dL [facility] Glucose 88 70 - 199 mg/dL [facility] Comment: Interpretive Data Fasting glucose >/= 126 [...] classification and Diagnosis of Diabetes Diabetes Care 2017;40 (Suppl. 1):S11. Current interpretive data was last revised 2017. Calcium 8.6 8.5 - 10.3 mg/dL [facility] Blood 05/22/2021 4:58 AM CDT 05/22/2021 5:22 AM CDT us Cintia Dey MD PhD LAB BLOOD ORDERABLES Final Result [facility] [place] [address] * (ABNORMAL) CBC with auto differential (05/22/2021 4:58 AM CDT) WBC 10.4(H) 3.8 - 9.9 K/cumm [facility] Hgb 10.7(L) 11.9 - 15.5 g/dL [facility] Hct 33.4(L) 35.6 - 45.5 % [facility] Plt 363 150 - 400 K/cumm [facility] MPV 9.9 9.1 - 12.3 fL [facility] RBC 3.76(L) 3.90 - 5.20 M/cumm [facility] MCV 88.8 81.3 - 96.4 fL [facility] MCH 28.5 27.1 - 33.3 pg [facility] MCHC 32.0(L) 32.3 - 35.7 g/dL [facility] RDW CV 14.1 11.1 - 14.9 % [facility] RDW SD 45.9 35.7 - 48.1 fL [facility] NRBC abs 0.00 0.00 - 0.01 K/cumm [facility] Blood 05/22/2021 4:58 AM CDT 05/22/2021 5:22 AM CDT us Cintia Dey MD PhD LAB BLOOD ORDERABLES Final Result Performing Organization Address City/[facility]/ZIP Co de Phone Number [facility] [place] [address] * POCT glucose (05/21/2021 8:00 PM CDT) Pathologist [facility] Glucose, POC 139 70 - 199 mg/dL [facility] Blood 05/21/2021 8:00 PM CDT 05/21/2021 8:00 PM CDT Brant Mayorga MD LAB POCT ORDERABLES - DEVICE Fi nal Result Performing Organization Address City/[facility] Co de Phone Number [facility] Department [place] [address] * Differential, auto (05/21/2021 4:50 PM CDT) [facility] Neutrophil abs 6.3 1.7 - 6.5 K/cumm [facility] Imm gran abs 0.1 0.0 - 0.1 K/cumm [facility] Lymphocyte abs 2.1 0.8 - 3.3 K/cumm [facility] Monocyte abs 0.8 0.2 - 0.8 K/cumm [facility] Eosinophil abs 0.5 0.0 - 0.5 K/cumm [facility] Basophil abs 0.1 0.0 - 0.1 K/cumm [facility] Neutrophil pct 63.4 % [facility] Comment: Interpretive Data Percent cell count reference ranges are not reported, since discordance with absolute values may lead to misinterpretation of CBC data. Current Interpretive Data was last revised on 2017. Imm gran pct 1.1 % [facility] Comment: Interpretive Data Percent cell count reference ranges are not reported, since discordance with absolute values may lead to misinterpretation of CBC data. Current Interpretive Data was last revised on 2017. Lymphocyte pct 21.4 % [facility] Comment: Interpretive Data Percent cell count reference ranges are not reported, since discordance with absolute values may lead to misinterpretation of CBC data. Current Interpretive Data was last revised on 2017. Monocyte pct 7.7 % [facility] Comment: Interpretive Data Percent cell count reference ranges are not reported, since discordance with absolute values may lead to misinterpretation of CBC data. Current Interpretive Data was last revised on 2017. Eosinophil pct 5.0 % [facility] Comment: Interpretive Data Percent cell count reference ranges are not reported, since discordance with absolute values may lead to misinterpretation of CBC data. Current Interpretive Data was last revised on 2017. Basophil pct 1.4 % [facility] Comment: Interpretive Data Percent cell count reference ranges are not reported, since discordance with absolute values may lead to misinterpretation of CBC data. Current Interpretive Data was last revised on 2017. Blood 05/21/2021 4:50 PM CDT 05/21/2021 5:08 PM CDT us Cintia Dey MD PhD LAB BLOOD ORDERABLES Final Result [facility] Department [place] [address] * (ABNORMAL) CBC with auto differential (05/21/2021 4:50 PM CDT) WBC 9.9 3.8 - 9.9 K/cumm [facility] Hgb 11.3(L) 11.9 - 15.5 g/dL [facility] Hct 36.1 35.6 - 45.5 % [facility] Plt 391 150 - 400 K/cumm [facility] MPV 9.7 9.1 - 12.3 fL [facility] RBC 4.00 3.90 - 5.20 M/cumm [facility] MCV 90.3 81.3 - 96.4 fL [facility] MCH 28.3 27.1 - 33.3 pg [facility] MCHC 31.3(L) 32.3 - 35.7 g/dL [facility] RDW CV 14.2 11.1 - 14.9 % [facility] RDW SD 46.9 35.7 - 48.1 fL [facility] NRBC abs 0.00 0.00 - 0.01 K/cumm [facility] Blood 05/21/2021 4:50 PM CDT 05/21/2021 5:08 PM CDT us Cintia Dey MD PhD LAB BLOOD ORDERABLES Final Result Performing Organization Address City/[facility] Co de Phone Number [facility] [place] [address] * POCT glucose (05/21/2021 4:49 PM CDT) Glucose, POC 127 70 - 199 mg/dL [facility] Blood 05/21/2021 4:49 PM CDT 05/21/2021 4:49 PM CDT Brant Mayorga MD LAB POCT ORDERABLES - DEVICE Fi nal Result Performing Organization Address [facility] Co de Phone Number [facility] [employer] [place] [address] * POCT glucose (05/21/2021 10:38 AM CDT) Glucose, POC 110 70 - 199 mg/dL [facility] Blood 05/21/2021 10:3 8 AM CDT 05/21/2021 10:38 AM CDT Brant Mayorga MD LAB POCT ORDERABLES - DEVICE Fi nal Result Performing Organization Address [facility] Co de Phone Number [facility] [place] [address] * POCT glucose (05/21/2021 7:43 AM CDT) Glucose, POC 84 70 - 199 mg/dL [facility] Blood 05/21/2021 7:43 AM CDT 05/21/2021 7:43 AM CDT us Brant Mayorga MD LAB POCT ORDERABLES - DEVICE Fi nal Result [facility] Department [place] [address] * (ABNORMAL) Differential, auto (05/21/2021 5:25 AM CDT) Pathologist [facility] Neutrophil abs 5.2 1.7 - 6.5 K/cumm [facility] Imm gran abs 0.1 0.0 - 0.1 K/cumm [facility] Lymphocyte abs 2.8 0.8 - 3.3 K/cumm [facility] Monocyte abs 0.8 0.2 - 0.8 K/cumm [facility] Eosinophil abs 0.7(H) 0.0 - 0.5 K/cumm [facility] Basophil abs 0.1 0.0 - 0.1 K/cumm [facility] Neutrophil pct 53.3 % [facility] Comment: Interpretive Data Percent cell count reference ranges are not reported, since discordance with absolute values may lead to misinterpretation of CBC data. Current Interpretive Data was last revised on 2017. Imm gran pct 1.3 % [facility] Comment: Interpretive Data Percent cell count reference ranges are not reported, since discordance with absolute values may lead to misinterpretation of CBC data. Current Interpretive Data was last revised on 2017. Lymphocyte pct 28.7 % [facility] Comment: Interpretive Data Percent cell count reference ranges are not reported, since discordance with absolute values may lead to misinterpretation of CBC data. Current Interpretive Data was last revised on 2017. Monocyte pct 8.3 % [facility] Comment: Interpretive Data Percent cell count reference ranges are not reported, since discordance with absolute values may lead to misinterpretation of CBC data. Current Interpretive Data was last revised on 2017. Eosinophil pct 7.0 % [facility] Comment: Interpretive Data Percent cell count reference ranges are not reported, since discordance with absolute values may lead to misinterpretation of CBC data. Current Interpretive Data was last revised on 2017. Basophil pct 1.4 % [facility] Comment: Interpretive Data Percent cell count reference ranges are not reported, since discordance with absolute values may lead to misinterpretation of CBC data. Current Interpretive Data was last revised on 2017. Blood 05/21/2021 5:25 AM CDT 05/21/2021 5:32 AM CDT us Cintia Dey MD PhD LAB BLOOD ORDERABLES Final Result [facility] Department [place] [address] * (ABNORMAL) CBC with auto differential (05/21/2021 5:25 AM CDT) WBC 9.7 3.8 - 9.9 K/cumm [facility] Hgb 10.9(L) 11.9 - 15.5 g/dL [facility] Hct 33.8(L) 35.6 - 45.5 % [facility] Plt 367 150 - 400 K/cumm [facility] MPV 9.5 9.1 - 12.3 fL [facility] RBC 3.82(L) 3.90 - 5.20 M/cumm [facility] MCV 88.5 81.3 - 96.4 fL [facility] MCH 28.5 27.1 - 33.3 pg [facility] MCHC 32.2(L) 32.3 - 35.7 g/dL [facility] RDW CV 14.2 11.1 - 14.9 % [facility] RDW SD 46.0 35.7 - 48.1 fL [facility] NRBC abs 0.02(H) 0.00 - 0.01 K/cumm [facility] Blood 05/21/2021 5:25 AM CDT 05/21/2021 5:32 AM CDT us Cintia Dey MD PhD LAB BLOOD ORDERABLES Final Result Performing Organization Address [facility] de Phone Number [facility] Department [place] [address] * (ABNORMAL) eGFR (05/21/2021 3:39 AM CDT) eGFR 74(L) 90 - 130 mL/min/1. 73 m2 [facility] Comment: Interpretive Data Reference Interval Normal ?>/= [...] of Race in Diagnosing Kidney Disease, JASN 2020). The CKD-EPI equation should not be used for patients with unstable renal function and has not been validated in children and those over 70. Current interpretive data was last reviewed 2020. Blood 05/21/2021 3:39 AM CDT 05/21/2021 3:59 AM CDT us Cintia Dey MD PhD LAB BLOOD ORDERABLES Final Result Performing Organization Address [facility]/State/ZIP Co de Phone Number [facility] [place] [address] * (ABNORMAL) Basic metabolic panel (05/21/2021 3:39 AM CDT) Sodium 142 135 - 145 mmol/L [facility] Potassium, pl 4.1 3.3 - 4.9 mmol/L [facility] Chloride 114(H) 97 - 110 mmol/L [facility] CO2 22 22 - 32 mmol/L [facility] Anion gap 6 2 - 15 mmol/L [facility] BUN 6(L) 8 - 25 mg/dL [facility] Creatinine 0.80 0.60 - 1.10 mg/dL [facility] Glucose 86 70 - 199 mg/dL [facility] Comment: Interpretive Data Fasting glucose >/= 126 [...] classification and Diagnosis of Diabetes Diabetes Care 2017;40 (Suppl. 1):S11. Current interpretive data was last revised 2017. Calcium 8.3(L) 8.5 - 10.3 mg/dL [facility] Blood 05/21/2021 3:39 AM CDT 05/21/2021 3:59 AM CDT us Cintia Dey MD PhD LAB BLOOD ORDERABLES Final Result [facility] Department [place] [address] * POCT glucose (05/20/2021 7:50 PM CDT) Glucose, POC 112 70 - 199 mg/dL [facility] Blood 05/20/2021 7:50 PM CDT 05/20/2021 7:50 PM CDT us Denzel Rai MD LAB POCT ORDERABLES - DEVICE Fin al Result [facility] [place] [address] * Differential, auto (05/20/2021 4:47 PM CDT) Neutrophil abs 4.9 1.7 - 6.5 K/cumm [facility] Imm gran abs 0.1 0.0 - 0.1 K/cumm [facility] Lymphocyte abs 2.1 0.8 - 3.3 K/cumm [facility] Monocyte abs 0.6 0.2 - 0.8 K/cumm [facility] Eosinophil abs 0.5 0.0 - 0.5 K/cumm [facility] Basophil abs 0.1 0.0 - 0.1 K/cumm [facility] Neutrophil pct 58.3 % [facility] Comment: Interpretive Data Percent cell count reference ranges are not reported, since discordance with absolute values may lead to misinterpretation of CBC data. Current Interpretive Data was last revised on 2017. Imm gran pct 1.1 % [facility] Comment: Interpretive Data Percent cell count reference ranges are not reported, since discordance with absolute values may lead to misinterpretation of CBC data. Current Interpretive Data was last revised on 2017. Lymphocyte pct 25.3 % [facility] Comment: Interpretive Data Percent cell count reference ranges are not reported, since discordance with absolute values may lead to misinterpretation of CBC data. Current Interpretive Data was last revised on 2017. Monocyte pct 7.5 % [facility] Comment: Interpretive Data Percent cell count reference ranges are not reported, since discordance with absolute values may lead to misinterpretation of CBC data. Current Interpretive Data was last revised on 2017. Eosinophil pct 6.4 % [facility] Comment: Interpretive Data Percent cell count reference ranges are not reported, since discordance with absolute values may lead to misinterpretation of CBC data. Current Interpretive Data was last revised on 2017. Basophil pct 1.4 % [facility] Comment: Interpretive Data Percent cell count reference ranges are not reported, since discordance with absolute values may lead to misinterpretation of CBC data. Current Interpretive Data was last revised on 2017. Blood 05/20/2021 4:47 PM CDT 05/20/2021 5:02 PM CDT us Cintia Dey MD PhD LAB BLOOD ORDERABLES Final Result Performing Organization Address City/[facility]/ZIP Co de Phone Number [facility] [place] [address] * POCT glucose (05/20/2021 4:47 PM CDT) [facility] Glucose, POC 105 70 - 199 mg/dL [facility] Blood 05/20/2021 4:47 PM CDT 05/20/2021 4:47 PM CDT us Denzel Rai MD LAB POCT ORDERABLES - DEVICE Fin al Result Performing Organization Address [facility] Co de Phone Number [facility] [place] [address] * (ABNORMAL) CBC with auto differential (05/20/2021 4:47 PM CDT) [facility] WBC 8.4 3.8 - 9.9 K/cumm [facility] Hgb 10.9(L) 11.9 - 15.5 g/dL [facility] Hct 33.9(L) 35.6 - 45.5 % [facility] Plt 363 150 - 400 K/cumm [facility] MPV 9.6 9.1 - 12.3 fL [facility] RBC 3.82(L) 3.90 - 5.20 M/cumm [facility] MCV 88.7 81.3 - 96.4 fL [facility] MCH 28.5 27.1 - 33.3 pg [facility] MCHC 32.2(L) 32.3 - 35.7 g/dL [facility] RDW CV 14.4 11.1 - 14.9 % [facility] RDW SD 46.5 35.7 - 48.1 fL [facility] NRBC abs 0.00 0.00 - 0.01 K/cumm [facility] Blood 05/20/2021 4:47 PM CDT 05/20/2021 5:02 PM CDT Cintia Dey MD PhD LAB BLOOD ORDERABLES Final Result [facility] [place] [address] * POCT glucose (05/20/2021 11:36 AM CDT) Glucose, POC 121 70 - 199 mg/dL [facility] Blood 05/20/2021 11:3 6 AM CDT 05/20/2021 11:36 AM CDT Result [facility] Denzel Rai MD LAB POCT ORDERABLES - DEVICE Fin al Result Performing Organization Address City/[facility] Co de Phone Number [facility] Department [place] [address] * POCT glucose (05/20/2021 8:38 AM CDT) Glucose, POC 91 70 - 199 mg/dL [facility] Blood 05/20/2021 8:38 AM CDT 05/20/2021 8:38 AM CDT Denzel Rai MD LAB POCT ORDERABLES - DEVICE Fin al Result Performing Organization Address City/[facility] Co de Phone Number [facility] [place] [address] * (ABNORMAL) eGFR (05/20/2021 5:39 AM CDT) eGFR 61(L) 90 - 130 mL/min/1. 73 m2 [facility] Comment: Interpretive Data Reference Interval Normal ?>/= [...] of Race in Diagnosing Kidney Disease, JASN 2020). The CKD-EPI equation should not be used for patients with unstable renal function and has not been validated in children and those over 70. Current interpretive data was last reviewed 2020. Blood 05/20/2021 5:39 AM CDT 05/20/2021 5:58 AM CDT us Cintia Dey MD PhD LAB BLOOD ORDERABLES Final Result [facility] [place] [address] * (ABNORMAL) Differential, auto (05/20/2021 5:39 AM CDT) [facility] Neutrophil abs 4.4 1.7 - 6.5 K/cumm [facility] Imm gran abs 0.1 0.0 - 0.1 K/cumm [facility] Lymphocyte abs 1.8 0.8 - 3.3 K/cumm [facility] Monocyte abs 0.7 0.2 - 0.8 K/cumm [facility] Eosinophil abs 0.6(H) 0.0 - 0.5 K/cumm [facility] Basophil abs 0.1 0.0 - 0.1 K/cumm [facility] Neutrophil pct 57.1 % [facility] Comment: Interpretive Data Percent cell count reference ranges are not reported, since discordance with absolute values may lead to misinterpretation of CBC data. Current Interpretive Data was last revised on 2017. Imm gran pct 1.5 % [facility] Comment: Interpretive Data Percent cell count reference ranges are not reported, since discordance with absolute values may lead to misinterpretation of CBC data. Current Interpretive Data was last revised on 2017. Lymphocyte pct 23.6 % [facility] Comment: Interpretive Data Percent cell count reference ranges are not reported, since discordance with absolute values may lead to misinterpretation of CBC data. Current Interpretive Data was last revised on 2017. Monocyte pct 8.6 % [facility] Comment: Interpretive Data Percent cell count reference ranges are not reported, since discordance with absolute values may lead to misinterpretation of CBC data. Current Interpretive Data was last revised on 2017. Eosinophil pct 7.9 % [facility] Comment: Interpretive Data Percent cell count reference ranges are not reported, since discordance with absolute values may lead to misinterpretation of CBC data. Current Interpretive Data was last revised on 2017. Basophil pct 1.3 % [facility] Comment: Interpretive Data Percent cell count reference ranges are not reported, since discordance with absolute values may lead to misinterpretation of CBC data. Current Interpretive Data was last revised on 2017. Blood 05/20/2021 5:39 AM CDT 05/20/2021 5:58 AM CDT us Cintia Dey MD PhD LAB BLOOD ORDERABLES Final Result [facility] Department [place] [address] * (ABNORMAL) Basic metabolic panel (05/20/2021 5:39 AM CDT) Pathologist [facility] Sodium 144 135 - 145 mmol/L [facility] Potassium, pl 4.5 3.3 - 4.9 mmol/L [facility] Comment:Hemolyzed; Potassium value may be falsely elevated by as much as 0.3-0.5 mmol/L. Suggest redraw and reanalysis. Chloride 115(H) 97 - 110 mmol/L [facility] CO2 22 22 - 32 mmol/L [facility] Anion gap 7 2 - 15 mmol/L [facility] BUN 9 8 - 25 mg/dL [facility] Creatinine 0.94 0.60 - 1.10 mg/dL [facility] Glucose 106 70 - 199 mg/dL [facility] Comment: Interpretive Data Fasting glucose >/= 126 [...] classification and Diagnosis of Diabetes Diabetes Care 2017;40 (Suppl. 1):S11. Current interpretive data was last revised 2017. Calcium 8.3(L) 8.5 - 10.3 mg/dL [facility] Blood 05/20/2021 5:39 AM CDT 05/20/2021 5:58 AM CDT us Cintia Dey MD PhD LAB BLOOD ORDERABLES Final Result [facility] Department [place] [address] * (ABNORMAL) CBC with auto differential (05/20/2021 5:39 AM CDT) Pathologist [facility] WBC 7.8 3.8 - 9.9 K/cumm [facility] Hgb 10.3(L) 11.9 - 15.5 g/dL [facility] Hct 32.7(L) 35.6 - 45.5 % [facility] Plt 339 150 - 400 K/cumm [facility] MPV 9.6 9.1 - 12.3 fL [facility] RBC 3.62(L) 3.90 - 5.20 M/cumm [facility] MCV 90.3 81.3 - 96.4 fL [facility] MCH 28.5 27.1 - 33.3 pg [facility] MCHC 31.5(L) 32.3 - 35.7 g/dL [facility] RDW CV 14.4 11.1 - 14.9 % [facility] RDW SD 47.9 35.7 - 48.1 fL [facility] NRBC abs 0.00 0.00 - 0.01 K/cumm [facility] Blood 05/20/2021 5:39 AM CDT 05/20/2021 5:58 AM CDT us Cintia Dey MD PhD LAB BLOOD ORDERABLES Final Result [facility] Department [place] [address] * POCT glucose (05/19/2021 8:43 PM CDT) [facility] Glucose, POC 82 70 - 199 mg/dL [facility] Blood 05/19/2021 8:43 PM CDT 05/19/2021 8:43 PM CDT us Vic Farnsworth MD LAB POCT ORDERABLES - DEVICE F inal Result [facility] [place] [address] * Influenza A/B, RSV, and COVID-19 PCR Nasopharyngeal (05/19/2021 6:35 PM CDT) [facility] COVID-19 RNA Negative Negative [facility] Influenza A RNA Negative Negative [facility] Influenza B RNA Negative Negative [facility] RSV RNA Negative Negative [facility] Comment: Interpretive data: Testing performed by [facility] ([phone]). This test is performed using the [employer] Xpert Xpress CoV-2/Flu/RSV plus assay. This is a multiplex, real-time reverse transcriptase PCR assay intended for the qualitative detection of nucleic acid from SARS-CoV-2, influenza A, influenza B, and respiratory syncytial virus. This assay has been reviewed by the FDA for Emergency Use Authorization (EUA). The performance characteristics have been verified by the [facility]. Results must be considered in the clinical context, and a negative result does not rule out infection. Interpretive Data last revised 2021. First COVID-19 test? No [facility] Employeed in healthcare? No [facility] status? No [facility] Group care resident? No [facility] Hospitalized? No [facility] Is patient in ICU? No [facility] Symptomatic as defined by CDC? No [facility] Nasopharyngeal 05/19/2021 6: 35 PM CDT 05/19/2021 6:44 PM CDT Narrative [facility] - 05/19/2021 7:25 PM CDT Reason for testing?->Bed placement or semi-private room Known exposure to confirmed or suspected COVID-19 case?->No Ana Mosquera MD LAB MICROBIOLOGY - GENERAL ORDERABLES Final Result Performing Organization Address City/State/[facility] Co de Phone Number [facility] [place] [address] * POCUS Cardiac (05/19/2021 5:28 PM CDT) Anatomical Region Laterality Modality Other 05/19/2021 4:44 PM CDT Narrative 05/25/2021 6:33 PM CDT Performed by: Taj Tai Cardiac: ?Exam type: ??Diagnostic ?Exam Information: ?Indication(s) for Exam: ?AMS ?Exam Occurence: ?Initial ?Findings ?? : ?Pericardial effusion: ??Absent ?Left ventricle: ??Dilated ?Right ventricle: ??Normal ?IVC: ??Normal ?IVC diameter (cm): ??1.72 ?IVC respiratory variation: ??High collapsibility (>50%) ?Interpretation: ?Reduced LVEF ?Other ??: ??EF 41% by FS, VTI 15 cm Electronically signed by Taj Tai on Wednesday, May 19, 2021 at 5:46 PM I have reviewed the images & the resident's interpretation. I agree with the findings. Electronically signed by VIC FARNSWORTH on Tuesday, May 25, 2021 at 6:33 PM I have reviewed the images & the resident's interpretation. I agree with the findings. Procedure Note Vic Farnsworth MD - 05/25/2021 Performed by: Taj Tai Cardiac: Exam type: Diagnostic Exam Information: Indication(s) for Exam: AMS Exam Occurence: Initial Findings : Pericardial effusion: Absent Left ventricle: Dilated Right ventricle: Normal IVC: Normal IVC diameter (cm): 1.72 IVC respiratory variation: High collapsibility (>50%) Interpretation: Reduced LVEF Other : EF 41% by FS, VTI 15 cm Electronically signed by Taj Tai on Wednesday, May 19, 2021 at5:46 PM I have reviewed the images & the resident's interpretation. I agree withthe findings. Electronically signed by VIC FARNSWORTH on Tuesday, May 25, 2021 at 6:33PM I have reviewed the images & the resident's interpretation. I agree withthe findings. us Vic Farnsworth MD POCUS ORDERABLES Final Result * Type and screen (05/19/2021 4:23 PM CDT) Pathologist [facility] Ramón, indirect Negative [facility] Comment:Patient has previous antibody history ABO Rh O Negative [facility] Blood 05/19/2021 4:23 PM CDT 05/19/2021 4:34 PM CDT Narrative [facility] - 05/19/2021 5:23 PM CDT Has the patient had Daratumumab or Isatuximab in the past 6 months?->Unknown us Ana Mosquera MD LAB BLOOD BANK TEST ORDERA BLES Final Result [facility] Department [place] [address] * (ABNORMAL) eGFR (05/19/2021 4:08 PM CDT) Pathologist [facility] eGFR 56(L) 90 - 130 mL/min/1. 73 m2 [facility] Comment: Interpretive Data Reference Interval Normal ?>/= [...] of Race in Diagnosing Kidney Disease, JASN 2020). The CKD-EPI equation should not be used for patients with unstable renal function and has not been validated in children and those over 70. Current interpretive data was last reviewed 2020. Blood 05/19/2021 4:08 PM CDT 05/19/2021 4:15 PM CDT us Ana Mosquera MD LAB BLOOD ORDERABLES Final Result [facility] [place] [address] * (ABNORMAL) Differential, auto (05/19/2021 4:08 PM CDT) Neutrophil abs 4.6 1.7 - 6.5 K/cumm [facility] Imm gran abs 0.1 0.0 - 0.1 K/cumm [facility] Lymphocyte abs 2.1 0.8 - 3.3 K/cumm [facility] Monocyte abs 0.6 0.2 - 0.8 K/cumm [facility] Eosinophil abs 0.6(H) 0.0 - 0.5 K/cumm [facility] Basophil abs 0.1 0.0 - 0.1 K/cumm [facility] Neutrophil pct 56.6 % [facility] Comment: Interpretive Data Percent cell count reference ranges are not reported, since discordance with absolute values may lead to misinterpretation of CBC data. Current Interpretive Data was last revised on 2017. Imm gran pct 1.5 % [facility] Comment: Interpretive Data Percent cell count reference ranges are not reported, since discordance with absolute values may lead to misinterpretation of CBC data. Current Interpretive Data was last revised on 2017. Lymphocyte pct 25.5 % [facility] Comment: Interpretive Data Percent cell count reference ranges are not reported, since discordance with absolute values may lead to misinterpretation of CBC data. Current Interpretive Data was last revised on 2017. Monocyte pct 7.2 % [facility] Comment: Interpretive Data Percent cell count reference ranges are not reported, since discordance with absolute values may lead to misinterpretation of CBC data. Current Interpretive Data was last revised on 2017. Eosinophil pct 7.7 % [facility] Comment: Interpretive Data Percent cell count reference ranges are not reported, since discordance with absolute values may lead to misinterpretation of CBC data. Current Interpretive Data was last revised on 2017. Basophil pct 1.5 % [facility] Comment: Interpretive Data Percent cell count reference ranges are not reported, since discordance with absolute values may lead to misinterpretation of CBC data. Current Interpretive Data was last revised on 2017. Blood 05/19/2021 4:08 PM CDT 05/19/2021 4:16 PM CDT us Ana Mosquera MD LAB BLOOD ORDERABLES Final Result [facility] Department [place] [address] * Heparin anti factor Xa activity (05/19/2021 4:08 PM CDT) [facility] Anti Factor Xa 1.70 IUnits/mL [facility] Comment: Interpretive Data Enoxaparin therapeutic range (peak): VTE treatment, Q12hr dosin.60-1.00 IUnits/mL VTE treatment, Q24hr dosin.00-2.00 IUnits/mL Q24hr dosing for renal impairment (CrCl <30 mL/min): 0.60-1.00 IUnits/mL VTE prevention: 0.10-0.40 IUnits/mL - Anti-Xa therapeutic ranges apply to blood samples drawn 4 hours after last dose (peak). - Unfractionated heparin (UFH) therapeutic range: 0.30-0.70 IUnits/mL - Direct factor Xa inhibitors (rivaroxaban, apixaban): Results must be interpreted qualitatively. No activity detected suggests little anticoagulant activity. - In severe antithrombin deficiency, anti-Xa measurement may be inaccurate. - Interpretive guidelines developed in adult populations. Interpretive guidelines for pediatric patients have not been rigorously defined. - Current interpretive data was last revised on 2018. Blood 05/19/2021 4:08 PM CDT 05/19/2021 4:24 PM CDT Ana Mosquera MD LAB BLOOD ORDERABLES Final Result Performing Organization Address [facility] [place] [address] * aPTT (05/19/2021 4:08 PM CDT) aPTT 33 27 - 37 sec [facility] Comment: Interpretive Data Therapeutic heparin range: 60.0 - 94.0 seconds. Based on correlation with therapeutic heparin activity range of 0.3-0.7 Units/mL. Current interpretive data was last revised on 2020. Blood 05/19/2021 4:08 PM CDT 05/19/2021 4:19 PM CDT Result [facility] Ana Mosquera MD LAB BLOOD ORDERABLES Final Result Performing Organization Address [facility] [place] [address] * (ABNORMAL) Protime-INR (05/19/2021 4:08 PM CDT) PT 20.2(H) 9.5 - 13.6 sec [facility] INR 1.8(H) 0.9 - 1.2 [facility] Comment: Interpretive data Oral anticoagulant therapeutic ranges: Venous thromboembolism prophylaxis or treatment: 2.0-3.0 CARDIOLOGY Standard range: 2.0-3.0 High-intensity range: 2.5-3.5 Refer to indication-specific guidelines for appropriate target ranges for prosthetic heart valve replacement. Current interpretive data was last revised on 2019. Blood 05/19/2021 4:08 PM CDT 05/19/2021 4:19 PM CDT us Ana Mosquera MD LAB BLOOD ORDERABLES Final Result [facility] Department [place] [address] * (ABNORMAL) Comprehensive metabolic panel (05/19/2021 4:08 PM CDT) Sodium 139 135 - 145 mmol/L [facility] Potassium, pl 4.5 3.3 - 4.9 mmol/L [facility] Chloride 109 97 - 110 mmol/L [facility] CO2 21(L) 22 - 32 mmol/L [facility] Anion gap 9 2 - 15 mmol/L [facility] BUN 8 8 - 25 mg/dL [facility] Creatinine 1.01 0.60 - 1.10 mg/dL [facility] Glucose 134 70 - 199 mg/dL [facility] Comment: Interpretive Data Fasting glucose >/= 126 [...] classification and Diagnosis of Diabetes Diabetes Care 2017;40 (Suppl. 1):S11. Current interpretive data was last revised 2017. Calcium 8.3(L) 8.5 - 10.3 mg/dL [facility] Bilirubin, total 0.3 0.1 - 1.2 mg/dL [facility] Protein, pl 6.7 6.5 - 8.5 g/dL [facility] Albumin 3.3(L) 3.5 - 5.0 g/dL [facility] Alk phos 67 40 - 130 Units/L [facility] ALT 32 7 - 45 Units/L [facility] AST 27 10 - 45 Units/L [facility] Blood 05/19/2021 4:08 PM CDT 05/19/2021 4:15 PM CDT Ana Mosquera MD LAB BLOOD ORDERABLES Final Result Performing Organization Address City/[facility]/ZIP Co de Phone Number [facility] Department [place] [address] * (ABNORMAL) CBC with auto differential (05/19/2021 4:08 PM CDT) WBC 8.2 3.8 - 9.9 K/cumm [facility] Hgb 11.4(L) 11.9 - 15.5 g/dL [facility] Hct 36.2 35.6 - 45.5 % [facility] Plt 366 150 - 400 K/cumm [facility] MPV 9.7 9.1 - 12.3 fL [facility] RBC 3.99 3.90 - 5.20 M/cumm [facility] MCV 90.7 81.3 - 96.4 fL [facility] MCH 28.6 27.1 - 33.3 pg [facility] MCHC 31.5(L) 32.3 - 35.7 g/dL [facility] RDW CV 14.3 11.1 - 14.9 % [facility] RDW SD 47.6 35.7 - 48.1 fL [facility] NRBC abs 0.00 0.00 - 0.01 K/cumm [facility] Blood 05/19/2021 4:08 PM CDT 05/19/2021 4:16 PM CDT Ana Mosquera MD LAB BLOOD ORDERABLES Final Result [facility] [place] [address] * POCT glucose (05/19/2021 3:53 PM CDT) Glucose, POC 120 70 - 199 mg/dL [facility] Blood 05/19/2021 3:53 PM CDT 05/19/2021 3:53 PM CDT us Notinfile Unknown LAB POCT ORDERABLES - DEVICE F inal Result [facility] [place] [address] * (ABNORMAL) ECG 12-LEAD (05/19/2021 3:50 PM CDT) Narrative [facility] - 05/19/2021 3:50 PM CDT Vic Farnsworth MD ? 05/19/2021 ??3:52 PM ECG 12 lead Date/Time: 05/19/2021 3:50 PM Performed by: Vic Farnsworth MD Authorized by: Leland Mckenna MD Rate: ??ECG rate: ??73 ??ECG rate assessment: normal ?? Rhythm: ??Rhythm: sinus rhythm ?? Ectopy: ??Ectopy: none ?? QRS: ??QRS axis: ??Left ??QRS intervals: ??Wide Conduction: ??Conduction: normal ?? ST segments: ??ST segments: ??Normal T waves: ??T waves: flattening ?Flattening: ??V1 and V2 Q waves: ??Q waves: ??V1 and V2 Other findings: ??Other findings: LVH ?? Previous ECG: ??Previous ECG: ??Compared to current ??Date of previous ECG: ??02/09/2019 ??Comparison ECG info: ??Anterior Q waves are new, T flattening is new ??Similarity: ??Changes noted Interpretation: ??Interpretation: abnormal ?? Recommended Follow-up: ??Recommended follow up: further workup in the ED ?? Comments: ?? Moderate risk of ACS Procedure Note Vic Farnsworth MD - 05/19/2021 3:50 PM CDT Procedure ECG 12 lead Date/Time: 05/19/2021 3:50 PM Performed by: Vic Farnsworth MD Authorized by: Leland Mckenna MD Rate: ECG rate: 73 ECG rate assessment: normal Rhythm: Rhythm: sinus rhythm Ectopy: Ectopy: none QRS: QRS axis: Left QRS intervals: Wide Conduction: Conduction: normal ST segments: ST segments: Normal T waves: T waves: flattening Flattening: V1 and V2 Q waves: Q waves: V1 and V2 Other findings: Other findings: LVH Previous ECG: Previous ECG: Compared to current Date of previous EC02/09/2019 Comparison ECG info: Anterior Q waves are new, T flattening is new Similarity: Changes noted Interpretation: Interpretation: abnormal Recommended Follow-up: Recommended follow up: further workup in the ED Comments: Moderate risk of ACS Vic Farnsworth MD 05/19/21 [id number] Leland Mckenna MD ECG ORDERABLES Final Re sult [facility] documented in this encounter Visit Diagnoses Diagnosis Bright red blood per rectum- Primary Hemorrhage of rectum and anus Bright red blood per rectum Hemorrhage of rectum and anus Type 2 diabetes mellitus with other neurologic complication, 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, old, cognitive deficits Calculus of gallbladder without cholecystitis without obstruction Chronic diastolic heart failure (HCC) Chronic diastolic heart failure CVA (cerebral vascular accident) (HCC) Unspecified cerebral artery occlusion with cerebral infarction HTN (hypertension), benign Essential hypertension, benign Type 2 diabetes mellitus (HCC) CKD (chronic kidney disease) Chronic kidney disease, unspecified S/P mitral valve repair Other postprocedural status documented in this encounter Admitting Diagnoses Diagnosis Bright red blood per rectum Hemorrhage of rectum and anus documented in this encounter Administered Medications Inactive Administered Medications - up to 3 most recent administrations Medication Order MAR Action Action Date Dose Rate Site acetaminophen (TYLENOL) tablet 650 mg 650 mg, oral, Every 4 hours PRN, 1st line for pain, fever, fever greater than 38.3 C, Starting on Tue05/19/21 at 2202, Indications: Fever, PainIndications:Fever,Pain Given 05/21/2021 8:03 PM CDT 650 mg Given 05/20/2021 8:39 AM CDT 650 mg carvediloL (COREG) tablet 12.5 mg 12.5 mg, oral, 2 times daily with meals (bkfst, dinner), First dose on Tue05/22/21 at 0800 Given 05/22/2021 8:56 AM CDT 12.5 mg dextrose (D10W) 10% bolus 250 mL 250 mL, intravenous, at 1,000 mL/hr, Administer over 15 Minutes, Every 15 min PRN, blood glucose less than 70 mg/dL and UNABLE to swallow/take PO glucose/juice., Starting on Tue05/20/21 at 0832, After treatment for hypoglycemia, recheck BG followed by treatment every 15 minutes until the BG is greater than 100 mg/dL. Then check BG 1 hour post treatment. If BG is less than 100 mg/dL, repeat Q15 minute BG checks and treatment. Call MD for each episode of hypoglycemia., Indications: hypoglycemic disorderIndications:hypoglycemic disorder dextrose (GLUTOSE) 40 % gel 15 g 15 g, oral, Every 15 min PRN, low blood sugar, blood glucose less than 70 mg/dL, Starting on Tue05/20/21 at 0832, If patient is alert and able to eat/drink, give 15 gm glucose or one juice (4 fluid ounces) NOT ORANGE JUICE. After treatment for hypoglycemia, recheck BG followed by treatment every 15 minutes until the BG is greater than 100 mg/dL. Then check BG 1 hour post-treatment. If BG is less than 100 mg/dL, repeat Q15 minute BG checks and treatment. Call MD for each episode of hypoglycemia. VP [place] GLUTOSE-15 CONTAINS GLUCOSE 40% W/W (50% W/V), Indications: hypoglycemic disorderIndications:hypoglycemic disorder glucagon injection 1 mg 1 mg, intramuscular, Every 30 min PRN, low blood sugar, blood glucose less than 70 mg/dL AND no IV access AND unable to take PO glucose/juice., Starting on Tue05/20/21 at 0832, After Glucagon is administered, position patient on side if possible to avoid aspiration. Obtain IV access. Follow glucagon treatment with glucose treatment or IV dextrose. After treatment for hypoglycemia, recheck BG followed by treatment every 15 minutes until the BG is greater than 100 mg/dL. Then check BG 1 hour post treatment. If BG is less than 100 mg/dL, repeat Q15 minute BG checks and treatment. Call MD for each episode of hypoglycemia. Reconstitute 1 mg vial with 1 mL SWFI. Use immediately following reconstitution. insulin lispro (HumaLOG, ADMELOG) 100 unit/mL injection 0-5 Units 0-5 Units, subcutaneous, 4 times daily before meals & nightly, First dose on Tue05/20/21 at 1130, Blood glucose mg/dL: 149 or less: No insulin 150-199: add 1 unit 200-249: add 2 units 250-299: add 3 units 300-349: add 4 units and notify physician for adjustment of insulin orders. 350-399: add 5 units and notify physician for adjustment of insulin orders. Over 400: Notify physician for adjustment of insulin orders. Do NOT hold for NPO Status, Indications: Diabetes MellitusIndications:Diabetes Mellitus ondansetron (ZOFRAN) injection 4 mg 4 mg, intravenous, Administer over 2 Minutes, Every 6 hours PRN, nausea, vomiting, if not tolerating PO, Starting on Tue05/19/21 at 2202, Indications: Nausea and VomitingIndications:Nausea and Vomiting ondansetron ODT (ZOFRAN-ODT) disintegrating tablet 4 mg 4 mg, oral, Every 6 hours PRN, nausea, vomiting, Starting on Tue05/19/21 at 2202, Indications: Nausea and VomitingIndications:Nausea and Vomiting pravastatin (PRAVACHOL) tablet 40 mg 40 mg, oral, Daily, First dose on Tue05/20/21 at 0900 Given 05/22/2021 8:56 AM CDT 40 mg Given 05/21/2021 8:43 AM CDT 40 mg Given 05/20/2021 8:38 AM CDT 40 mg umeclidinium (INCRUSE ELLIPTA) 62.5 mcg/actuation inhaler 62.5 mcg 62.5 mcg (1 puff), inhalation, Daily (claims correspondence clerk), First dose on Tue05/20/21 at 0800 Given 05/20/2021 8:24 AM CDT 62. 5 mcg umeclidinium (INCRUSE ELLIPTA) 62.5 mcg/actuation inhaler 62.5 mcg 62.5 mcg (1 puff), inhalation, Daily, First dose (after last modification) on Tue05/21/21 at 0900 Given 05/22/2021 10:11 AM CDT 62.5 mcg Given 05/21/2021 8:42 AM CDT 62.5 mcg zolpidem (AMBIEN) tablet 5 mg 5 mg, oral, Nightly PRN, sleep, Starting on Tue05/19/21 at 2203, Indications: Sleep-Onset InsomniaIndications:Sleep-Onset Insomnia Given 05/21/2021 8:03 PM CDT 5 m g Given 05/20/2021 7:55 PM CDT 5 mg Given 05/19/2021 10:20 PM CDT 5 mg documented in this encounter Discontinued Medications Medication Sig Discontinue Reason Start Date End Da te clonazePAM (KlonoPIN) 0.5 mg tablet Take 1 tablet by mouth at bedtime as needed for anxiety 03/25/2021 05/19/2021 oxyCODONE (ROXICODONE) 5 mg immediate release tabletIndications:Pain Take 1 tablet (5 mg total) by mouth every 4 (four) hours as needed for pain 05/12/2021 05/19/2021 amLODIPine (NORVASC) 10 mg tablet Take 1 tablet (10 mg total) by mouth daily Stop Taking at Discharge 03/26/2021 05/22/2021 apixaban (Eliquis) 2.5 mg tablet Take 1 tablet (2.5 mg total) by mouth 2 (two) times a day with meals Stop Taking at Discharge 03/26/2021 05/22/2021 documented as of this encounter Historical Medications * This list may reflect changes made after this encounter. zolpidem (AMBIEN) 10 mg tabletIndications :Sleep-Onset Insomnia Take 10 mg by mouth nightly as needed for sleep 09/10/2021 added in this encounter Active and Recently Administered Medications Times are shown in CDT. Scheduled Medication Order 05/20/2021 05/21/2021 05/22/2021 carvediloL (COREG) tablet 12.5 mg 12.5 mg, oral, 2 times daily with meals (bkfst, dinner), First dose on Tue05/22/21 at 0800 0856 (Given - Provider: Dawn Dominguez RN) insulin lispro (HumaLOG, ADMELOG) 100 unit/mL injection 0-5 Units 0-5 Units, subcutaneous, 4 times daily before meals & nightly, First dose on Tue05/20/21 at 1130, Blood glucose mg/dL: 149 or less: No insulin 150-199: add 1 unit 200-249: add 2 units 250-299: add 3 units 300-349: add 4 units and notify physician for adjustment of insulin orders. 350-399: add 5 units and notify physician for adjustment of insulin orders. Over 400: Notify physician for adjustment of insulin orders. Do NOT hold for NPO Status, Indications: Diabetes Mellitus 1142 (Not Given - Provider: Lanette Mistry RN - Reason: Order parameters not met)1740 (Not Given - Provider: Lanette Mistry RN - Reason: Order parameters not met)2230 (Not Given - Provider: Rochelle Casey RN - Reason: Order parameters not met) 0759 (Not Given - Provider: Lanette Mistry RN - Reason: Order parameters not met)1242 (Not Given - Provider: Lanette Mistry RN - Reason: Order parameters not met)181 (Not Given - Provider: Lanette Mistry RN - Reason: Order parameters not met)2002 (Not Given - Provider: Rochelle Casey RN - Reason: Order parameters not met) 0847 (Not Given - Provider: Dawn Dominguez RN - Reason: Order parameters not met)1126 (Not Given - Provider: Dawn Dominguez RN - Reason: Order parameters not met) pravastatin (PRAVACHOL) tablet 40 mg 40 mg, oral, Daily, First dose on Tue05/20/21 at 0900 0838 (Given - Provider: Lanette Mistry RN) 0843 (Given - Provider: Lanette Mistry RN) 0856 (Given - Provider: Dawn Dominguez RN) umeclidinium (INCRUSE ELLIPTA) 62.5 mcg/actuation inhaler 62.5 mcg (CANCELED) 62.5 mcg (1 puff), inhalation, Daily (claims correspondence clerk), First dose on Tue05/20/21 at 0800 0824 (Given - Provider: Allegra Galeana, ANESTHESIOLOGIST ASSISTANT) umeclidinium (INCRUSE ELLIPTA) 62.5 mcg/actuation inhaler 62.5 mcg 62.5 mcg (1 puff), inhalation, Daily, First dose (after last modification) on Cinda 05/21/21 at 0900 0842 (Given - Provider: Lanette Mistry RN) 1011 (Given - Provider: Dawn Dominguez RN) PRN Medication Order 05/20/2021 05/21/2021 05/22/2021 acetaminophen (TYLENOL) tablet 650 mg 650 mg, oral, Every 4 hours PRN, 1st line for pain, fever, fever greater than 38.3 C, Starting on Tue05/19/21 at 2202, Indications: Fever, Pain 0839 (Given - Provider: Lanette Mistry RN) 2002 (Given - Provider: Rochelle Casey RN - Comment: 99.1f fever) dextrose (D10W) 10% bolus 250 mL(Linked Group 1) 250 mL, intravenous, at 1,000 mL/hr, Administer over 15 Minutes, Every 15 min PRN, blood glucose less than 70 mg/dL and UNABLE to swallow/take PO glucose/juice., Starting on Tue05/20/21 at 0832, After treatment for hypoglycemia, recheck BG followed by treatment every 15 minutes until the BG is greater than 100 mg/dL. Then check BG 1 hour post treatment. If BG is less than 100 mg/dL, repeat Q15 minute BG checks and treatment. Call MD for each episode of hypoglycemia., Indications: hypoglycemic disorder dextrose (GLUTOSE) 40 % gel 15 g(Linked Group 1) 15 g, oral, Every 15 min PRN, low blood sugar, blood glucose less than 70 mg/dL, Starting on Tue05/20/21 at 0832, If patient is alert and able to eat/drink, give 15 gm glucose or one juice (4 fluid ounces) NOT ORANGE JUICE. After treatment for hypoglycemia, recheck BG followed by treatment every 15 minutes until the BG is greater than 100 mg/dL. Then check BG 1 hour post-treatment. If BG is less than 100 mg/dL, repeat Q15 minute BG checks and treatment. Call MD for each episode of hypoglycemia. VP [place] GLUTOSE-15 CONTAINS GLUCOSE 40% W/W (50% W/V), Indications: hypoglycemic disorder glucagon injection 1 mg 1 mg, intramuscular, Every 30 min PRN, low blood sugar, blood glucose less than 70 mg/dL AND no IV access AND unable to take PO glucose/juice., Starting on Tue05/20/21 at 0832, After Glucagon is administered, position patient on side if possible to avoid aspiration. Obtain IV access. Follow glucagon treatment with glucose treatment or IV dextrose. After treatment for hypoglycemia, recheck BG followed by treatment every 15 minutes until the BG is greater than 100 mg/dL. Then check BG 1 hour post treatment. If BG is less than 100 mg/dL, repeat Q15 minute BG checks and treatment. Call MD for each episode of hypoglycemia. Reconstitute 1 mg vial with 1 mL SWFI. Use immediately following reconstitution. ondansetron (ZOFRAN) injection 4 mg(Linked Group 2) 4 mg, intravenous, Administer over 2 Minutes, Every 6 hours PRN, nausea, vomiting, if not tolerating PO, Starting on Tue05/19/21 at 2202, Indications: Nausea and Vomiting ondansetron ODT (ZOFRAN-ODT) disintegrating tablet 4 mg(Linked Group 2) 4 mg, oral, Every 6 hours PRN, nausea, vomiting, Starting on Tue05/19/21 at 2202, Indications: Nausea and Vomiting zolpidem (AMBIEN) tablet 5 mg 5 mg, oral, Nightly PRN, sleep, Starting on Tue05/19/21 at 2203, Indications: Sleep-Onset Insomnia 1954 (Given - Provider: Rochelle Casey RN) 2002 (Given - Provider: Rochelle Casey RN) Linked Groups Order Group 1: dextrose (GLUTOSE) 40 % gel 15 gJump to med 15 g, oral, Every 15 min PRN, low blood sugar, blood glucose less than 70 mg/dL, Starting on Tue05/20/21 at 0832, If patient is alert and able to eat/drink, give 15 gm glucose or one juice (4 fluid ounces) NOT ORANGE JUICE. After treatment for hypoglycemia, recheck BG followed by treatment every 15 minutes until the BG is greater than 100 mg/dL. Then check BG 1 hour post-treatment. If BG is less than 100 mg/dL, repeat Q15 minute BG checks and treatment. Call MD for each episode of hypoglycemia. VP [place] GLUTOSE-15 CONTAINS GLUCOSE 40% W/W (50% W/V), Indications: hypoglycemic disorder Or dextrose (D10W) 10% bolus 250 mLJump to med 250 mL, intravenous, at 1,000 mL/hr, Administer over 15 Minutes, Every 15 min PRN, blood glucose less than 70 mg/dL and UNABLE to swallow/take PO glucose/juice., Starting on Tue05/20/21 at 0832, After treatment for hypoglycemia, recheck BG followed by treatment every 15 minutes until the BG is greater than 100 mg/dL. Then check BG 1 hour post treatment. If BG is less than 100 mg/dL, repeat Q15 minute BG checks and treatment. Call MD for each episode of hypoglycemia., Indications: hypoglycemic disorder Group 2: ondansetron ODT (ZOFRAN-ODT) disintegrating tablet 4 mgJump to med 4 mg, oral, Every 6 hours PRN, nausea, vomiting, Starting on Tue05/19/21 at 2202, Indications: Nausea and Vomiting Or ondansetron (ZOFRAN) injection 4 mgJump to med 4 mg, intravenous, Administer over 2 Minutes, Every 6 hours PRN, nausea, vomiting, if not tolerating PO, Starting on Tue05/19/21 at 2202, Indications: Nausea and Vomiting documented in this encounter Orders Medications Ordered That Dion ht Not Have Been Administered Count Last Ordered Date First Ordered Date dextrose (D10W) 10% bolus 250 mL 1 05/21/19 dextrose (GLUTOSE) 40 % gel 15 g 1 05/21/19 glucagon injection 1 mg 1 05/20/2021 insulin lispro (HumaLOG, ADM ELOG) 100 unit/mL injection 0-5 Units 1 05/20/2021 ondansetron (ZOFRAN) injection 4 mg 1 05/19 ondansetron ODT (ZOFRAN-ODT) disintegrating tablet 4 mg 1 05/19/2021 Lab Orders Without Results Count Last Ordered D ate First Ordered Date POCT GLUCOSE DEVICE 9 05/22/2021 05/21/19 Diet Count Last Ordered Date First Orde red Date ADULT DISCHARGE DIET 1 05/22/2021 Nursing Count Last Ordered Date First Orde red Date DISCHARGE ACTIVITY 1 05/22/2021 DISCHARGE CALL PROVIDER 9 05/22/2021 DISCHARGE INSTRUCTIONS 2 05/22/2021 FOLLOW UP WITH ESTABLISHED PROVIDER 2 05/22 WEIGH PATIENT 1 05/19/2021 Consult Count Last Ordered Date First Orde red Date IP CONSULT TO GASTROENTEROLOGY 1 05/20/2021 CORE MEASURES Count Last Ordered Date First Ord ered Date REASON FOR NO VTE PROPHYLAXI S - HOSPITAL ADMISSION - MEDICATIONS 1 05/19/2021 ADT Patient Update Count Last Ordered Date Firs t Ordered Date ED IP DECISION TO ADMIT 1 05/19/2021 documented in this encounter Care Teams Waredresser Relationship Specialty Start Date End Date Braydon Lombardi MD PCP - General Family Medicine 12/31/20 06/07/21 Paulette Calderon MD [address] [facility] [address] [place] [address] Consulting Physician Gastroenterology 05/22/21 documented as of this encounter
--- OUTSIDE RECORDS SUMMARY | 2024-02-28 15:35 | XMS_ITS | Encounter Summary ---
Author Organization [facility] Healthcare Address [address] [place] [address] Care Team Providers Care Still Operator Name Role Phone Paulette Geller MD Unavailable + Mehul Verdugo MD Primary Care Provider [phone] Reason for Referral * Diagnostic Imaging (Routine) - Closed Specialty Diagnoses / Procedures Referred By Cata t Referred To Contact Diagnoses Cough, unspecified type Procedures XR Chest Pa Lateral 2 Vw Mehul Verdugo MD [address] [address] Phone: tel: fax: [facility] [address] [place] [address] Referral ID Status Reason Start Date Expiration Date Visits Re quested Visits Authorized [id number] Closed 01/19/2022 02/18/2023 1 1 CONTROL MANAGER Reason for Visit * Diagnostic Imaging (Routine) - Closed Specialty Diagnoses / Procedures Referred By Cata quintanilla Referred To Contact Diagnoses Cough, unspecified type Procedures XR Chest Pa Lateral 2 Vw Mehul Verdugo MD [address] [address] Phone: tel: fax: [facility] [address] [place] [address] Referral ID Status Reason Start Date Expiration Date Visits Re quested Visits Authorized [id number] Closed 01/19/2022 02/18/2023 1 1 Encounter Details Date Type Department Care Team (Latest Contact Info) Description 01/19/2022 1:27 PM LOSS CONTROL MANAGER - 01/19/2022 11:59 PM LOSS CONTROL MANAGER Hospital Encounter [facility] [address] [place] [id number] Cough, unspecified type Discharge Disposition: Discharge to home or self [...] on file Legal Sex Female 11:30 PM LOSS CONTROL MANAGER Gender Identity Female 06/15/2023 1:45 PM CDT Sexual Orientation Straight 06/15/2023 1: 45 PM CDT documented as of this encounter Medications at Time of Discharge acetaminophen (TYLENOL) 325 mg tabletIndication s:Fever,Pain Take 2 tablets (650 mg total) by mouth every 4 (four) hours as needed for pain or headaches 20 tablet 05/22/2021 blood-glucose meter (True Metrix Glucose Meter) [facility] [place] Use to test blood sugar once daily DX: E11.9 non insulin dependent 1 each 06/16/2021 alendronate (FOSAMAX) 70 mg tablet Take 1 tablet (70 mg total) by mouth every 7 days Take in the morning with a full glass of water, on an empty stomach, and do not take anything else by mouth or lie down for the next 30 min. 12 tablet 1 05/25/2021 blood glucose diagnostic (glucose blood) strip Use to test blood sugar once daily DX: E11.9 non insulin dependent (True Metrix) 100 each 11 06/16/2021 3 carvediloL (COREG) 25 mg tablet Take 1 tablet (25 mg total) by mouth 2 (two) times a day with meals 180 tablet 1 05/25/2021 3 Eliquis 2.5 mg tablet Take 1 tablet by mouth twice daily 60 tablet 6 10/08/2021 3 fenofibrate (TRIGLIDE) 160 mg tablet TAKE 1 TABLET EVERY DAY 90 tablet 07/13/2021 3 furosemide (LASIX) 20 mg tablet Take 1 tablet (20 mg total) by mouth daily 90 tablet 3 07/10/2021 3 lancets 33 gauge misc Use to test blood sugar once daily DX: E11.9 non insulin dependent. 100 each 11 06/16/2021 3 losartan (COZAAR) 100 mg tabletIndication s:Type 2 diabetes mellitus without complication, without long-term current use of insulin ([facility]/HCC) (HCC) Take 1 tablet (100 mg total) by mouth daily 90 tablet 2 03/26/2021 3 metFORMIN (GLUCOPHAGE) 500 mg tablet Take 1 tablet (500 mg total) by mouth 2 (two) times a day with meals 180 tablet 1 05/25/2021 4 mirtazapine (REMERON) 7.5 mg tablet Take 1 tablet (7.5 mg total) by mouth nightly 90 tablet 01/04/2022 3 potassium chloride ER 20 mEq CR tablet Take 1 tablet by mouth once daily 90 tablet 3 01/19/2022 4 pravastatin (PRAVACHOL) 40 mg tablet TAKE 1 TABLET EVERY DAY 90 tablet 06/22/2021 3 senna-docusate (PERICOLACE) 8.6-50 mg Take 1 tablet by mouth daily for 14 days 14 tablet 05/12/2021 3 tiotropium bromide (SPIRIVA RESPIMAT) 2.5 mcg/actuation inhaler Inhale 2 puffs daily 70 mcg of tiotropium 2 03/26/2021 4 zolpidem (AMBIEN) 5 mg tablet TAKE 1 TABLET BY MOUTH NIGHTLY NEEDED FOR SLEEP 30 tablet 12/28/2021 11/29/202 2 documented as of this encounter Discharge Disposition Disposition Code Departure Means Destination Discharge to home or self care documented in this encounter Plan of Treatment Not on file documented as of this encounter Procedures Procedure Name Priority Date/Time Associated Diagnosis Comments XR CHEST PA LATERAL 2 VIEWS Schedule Routine, Read Routine (OP Routine) 01/19/2022 1:37 PM LOSS CONTROL MANAGER Cough, unspecified type documented in this encounter Results * XR Chest Pa Lateral 2 Vw (01/19/2022 1:37 PM LOSS CONTROL MANAGER) Anatomical Region Laterality Modality Body, Chest N/A Computed Radiogr aphy 01/19/2022 2:40 PM LOSS CONTROL MANAGER Impressions 01/19/2022 5:31 PM LOSS CONTROL MANAGER The current study is compared with the [...] Celso Martinez M.D. Narrative 01/19/2022 5:31 PM LOSS CONTROL MANAGER EXAMINATION: 2 view chest radiograph Procedure Note [...] kyphoplasty changes are again seen. Dictated by: Isah Gene Chang, M.D. The radiology attending physician has personally reviewed this study, and had reviewed and/or edited this written report and agrees with it. Electronically signed by: Celso Martinez M.D. us Mehul Verdugo MD IMG XR PROCEDURES Final Resul t documented in this encounter Visit Diagnoses Diagnosis Cough, unspecified type documented in this encounter Care Teams Still Operator Relationship Specialty Start Date End Date Mehul Verdugo MD [address] [facility] [address] [place] [address] PCP - General Internal Medicine 09/10/21 Paulette Geller MD [address] [place] [address] Consulting Physician Gastroenterology 05/22/21 documented as of this encounter
--- OUTSIDE RECORDS SUMMARY | 2024-02-28 15:35 | XMS_ITS | Encounter Summary ---
Author Organization [facility] Address [address] [place] [address] Phone Care Team Providers Care X Ray Technologist Name Role Phone Paulette Geller MD Unavailable + Mehul Verdugo MD Primary Care Provider [phone] Reason for Visit * Reason Onset Date Comments Appointment 03/09/2022 Fall 03/09/2022 Encounter Details Date Type Department Care Team (Late st Contact Info) Description 03/09/2022 Telephone [facility] Cardiology [address] [facility] [address] [place] [address] [place] [address] Sp Madrid MD [address] [facility] [address] [place], [place] [id number] Appointment; Fall Social History Tobacco Use Types Packs/Day Years [...] on file Legal Sex Female 11:30 PM TERRA COTTA ROOFER HELPER Gender Identity Female 06/15/2023 1:45 PM CDT Sexual Orientation Straight 06/15/2023 1: 45 PM CDT documented as of this encounter Miscellaneous Notes * Telephone Encounter - Jaimee Antony RMA - 03/09/2022 4:05 PM TERRA COTTA ROOFER HELPER Spoke with and will follow up with PCP A COTTA ROOFER HELPER * Telephone Encounter - Allegra Castrejon - 03/09/2022 1:14 PM CST Julius Pt went to [facility] ER in [place] due to falling. Pt is needing a f/u. Please call. A COTTA ROOFER HELPER documented in this encounter Plan of Treatment Not on file documented as of this encounter Visit Diagnoses Not on filedocumented in this encounter Care Teams X Ray Technologist Relationship Specialty Start Date End Date Mehul Verdugo MD [address] [facility] [address] [place] [address] PCP - General Internal Medicine 09/10/21 Paulette Geller MD [address] [place] [address] Consulting Physician Gastroenterology 05/22/21 documented as of this encounter
--- OUTSIDE RECORDS SUMMARY | 2024-02-28 15:36 | XMS_ITS | Encounter Summary ---
Author Organization [facility] Healthcare Address [address] [place] [address] Care Team Providers Care Paper Gluing Operator Name Role Phone Cassius Chambers MD Primary Care Provider [phone] Encounter Details Date Type Department Care Team (Late st Contact Info) Description 05/22/2020 Orders Only [facility] Radiology [address] [place] [address] Erin Sawyer RN Social History Tobacco Use Types Packs/Day Years Used Date Smoking Tobacco: Never Smokeless Tobacco: Never Alcohol Use Standard Drinks/Week Comments No 0 (1 standard drink = 0.6 oz pur e alcohol) Comments No Sex and Gender Information Value Date Recorded Sex Assigned at Not on file Legal Sex Female 11:30 PM AUTOMOTIVE TIRE TECHNICIAN Gender Identity Female 06/15/2023 1:45 PM CDT Sexual Orientation Straight 06/15/2023 1: 45 PM CDT documented as of this encounter Progress Notes * Erin Sawyer RN - 05/22/2020 11:57 AM CDT Pre procedure instruction review and prescreen covid-19 completed. Denies any active infections in the body and has held her plavix for 5 days and has remained on 81 mg asa documented in this encounter Plan of Treatment Not on file documented as of this encounter Visit Diagnoses Not on filedocumented in this encounter Care Teams Paper Gluing Operator Relationship Specialty Start Date End Date Cassius Chambers MD [address] [facility] [address] [place] [address] PCP - General 08/12/16 12/30/20 documented as of this encounter
--- OUTSIDE RECORDS SUMMARY | 2024-02-28 15:36 | XMS_ITS | Encounter Summary ---
Author Organization [facility] Healthcare Address [address] [place] [address] Care Team Providers Care Records Analysis Manager Name Role Phone Cassius Chambers MD Primary Care Provider [phone] Encounter Details Date Type Department Care Team (Late st Contact Info) Description 06/23/2020 Telephone [facility] Radiology [address] [place] [address] Estella Talley RN Social History Tobacco Use Types Packs/Day Years Used Date Smoking Tobacco: Never Smokeless Tobacco: Never Alcohol Use Standard Drinks/Week Comments No 0 (1 standard drink = 0.6 oz pur e alcohol) Comments No Sex and Gender Information Value Date Recorded Sex Assigned at Not on file Legal Sex Female 11:30 PM TAPPER BALANCE WHEEL SCREW HOLE Gender Identity Female 06/15/2023 1:45 PM CDT Sexual Orientation Straight 06/15/2023 1: 45 PM CDT documented as of this encounter Miscellaneous Notes * Telephone Encounter - Estella Talley RN - 06/23/2020 1:33 PM CDT [facility]. 1 month post procedure call. DOS: 05/23/20 Procedure: T12 and L1 vertebral augmentation with cavity creation under fluoroscopic guidance. The patient had reduction of pain symptoms at the conclusion of the procedure. I spoke with Mr. Johnson (patient's ). He reports that her back pain has seemed to improve.He reports that her anxiety and memory issues have worsened over the past month and this is her primary issue. Dr. Chambers is aware of her anxiety issues. She is waking at night with significant anxiety. Unable to assess pain level. Patient has hydrocodone 5/325 mg at home but is not taking. She uses a walker due to poor balance. Site healed without issues or concerns mentioned. They will continue to follow up with Dr. Chambers documented in this encounter Plan of Treatment Not on file documented as of this encounter Visit Diagnoses Not on filedocumented in this encounter Care Teams Records Analysis Manager Relationship Specialty Start Date End Date Cassius Chambers MD [address] [address] PCP - General 08/12/16 12/30/20 documented as of this encounter
--- OUTSIDE RECORDS SUMMARY | 2024-02-28 15:36 | XMS_ITS | Encounter Summary ---
Author Organization [facility] Address [address] [address] Care Team Providers Care Joiner Apprentice Name Role Phone Haris Lauren MD Primary Care Provider [phone] Encounter Details Date Type Department Care Team (Late st Contact Info) Description 01/09/2021 Telephone [facility] Primary Care at [address] [address] Lisset Camarena MA Social History Tobacco Use Types Packs/Day Years Used Date Smoking Tobacco: Never Smokeless Tobacco: Never Alcohol Use Standard Drinks/Week Comments No 0 (1 standard drink = 0.6 oz pur e alcohol) PHQ-2 Answer Date Recorded PHQ-2 Total Score (If total score is 3 or more points, staff should administer the PHQ-9) 0 12/31/2020 Comments No Sex and Gender Information Value Date Recorded Sex Assigned at Not on file Legal Sex Female 11:30 PM CAFETERIA WORKER Gender Identity Female 06/15/2023 1:45 PM CDT Sexual Orientation Straight 06/15/2023 1: 45 PM CDT documented as of this encounter Miscellaneous Notes * Telephone Encounter - Lisset Camarena MA - 01/09/2021 9:58 AM CAFETERIA WORKER PA completed and approved for Spiriva TERIA WORKER documented in this encounter Plan of Treatment Not on file documented as of this encounter Visit Diagnoses Not on filedocumented in this encounter Care Teams Joiner Apprentice Relationship Specialty Start Date End Date Haris Lauren MD PCP - General Family Medicine 12/31/20 06/07/21 documented as of this encounter
--- OUTSIDE RECORDS SUMMARY | 2024-02-28 15:36 | XMS_ITS | Encounter Summary ---
Author Organization [facility] Address [address] [place] [address] Phone Care Team Providers Care Wind Farm Operations Manager Name Role Phone Cassius Chambers MD Primary Care Provider [phone] Encounter Details Date Type Department Care Team (Late st Contact Info) Description 05/27/2020 Telephone [facility] Cardiology [address] [facility] 8th [place] [address] [place] [address] Sp Madrid MD [address] [facility] [address] [place] [address] Social History Tobacco Use Types Packs/Day Years Used Date Smoking Tobacco: Never Smokeless Tobacco: Never Alcohol Use Standard Drinks/Week Comments No 0 (1 standard drink = 0.6 oz pur e alcohol) Comments No Sex and Gender Information Value Date Recorded Sex Assigned at Not on file Legal Sex Female 11:30 PM DIE SETTER Gender Identity Female 06/15/2023 1:45 PM CDT Sexual Orientation Straight 06/15/2023 1: 45 PM CDT documented as of this encounter Ordered Prescriptions Prescription Sig Dispense Quantity Refills Last Filled Start Date End Date amLODIPine (NORVASC) 10 mg tablet Take 1 tablet (10 mg total) by mouth daily 90 tablet 1 05/27/2020 11/24/2020 documented in this encounter Miscellaneous Notes * Telephone Encounter - Nella Brown MA - 05/27/2020 11:39 AM CDT Rx faxed * Telephone Encounter - Sherin Bishop - 05/27/2020 11:05 AM CDT Madrid Pt needs refills for: Amlodipine said she is out of refills. [facility] @ [phone] documented in this encounter Plan of Treatment Not on file documented as of this encounter Visit Diagnoses Not on filedocumented in this encounter Discontinued Medications Medication Sig Discontinue Reason Start Date End Da te amLODIPine (NORVASC) 10 mg tablet Take 1 tablet by mouth once daily Reorder 03/03/2020 05/27/2020 documented as of this encounter Care Teams Wind Farm Operations Manager Relationship Specialty Start Date End Date Cassius Chambers MD [address] [place] [address] PCP - General 08/12/16 12/30/20 documented as of this encounter
--- OUTSIDE RECORDS SUMMARY | 2024-02-28 15:36 | XMS_ITS | Encounter Summary ---
Author Organization [facility] Address [address] [address] Care Team Providers Care Dye Winch Operator Name Role Phone Haris Lauren MD Primary Care Provider [phone] Reason for Visit * Reason Comments Establish Care pt is here to est ca re. Encounter Details Date Type Department Care Team (Late st Contact Info) Description 12/31/2020 9:30 AM CDT Office Visit [facility] Primary Care at [address] [address] Haris Lauren MD [address] [address] Type 2 diabetes mellitus without complication, without long-term current use of insulin (CMS/HCC) (HCC) (Primary Dx); Dyslipidemia; HTN (hypertension), benign; Cerebrovascular accident (CVA) due to occlusion of other cerebral artery (HCC); Establishing care with new doctor, encounter for; S/P mitral valve repair; Primary insomnia; Age-related osteoporosis without current pathological [...] on file 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 Gender Identity Female 06/15/2023 1:45 PM CDT Sexual Orientation Straight 06/15/2023 1: 45 PM CDT documented as of this encounter Last Filed Vital Signs Vital Sign Reading Time Taken Comments Blood Pressure 128/68 12/31/2020 9:39 AM CDT Pulse 65 12/31/2020 9:39 AM CDT Temperature 36.9 ??C (98.5 ??F) 12/31/2020 9:39 AM CD T Respiratory Rate - - Oxygen Saturation 98% 12/31/2020 9:39 AM CDT Inhaled Oxygen Concentration - - Weight 61.6 kg (135 lb 12.8 oz) 12/31/2020 9:39 AM CDT Height 154.9 cm (5' 1 ) 12/31/2020 9:39 AM CDT Body Mass Index 25.66 12/31/2020 9:39 AM CDT documented in this encounter Ordered Prescriptions Prescription Sig Dispense Quantity Refills Last Filled Start Date End Date alendronate (FOSAMAX) 70 mg tablet Take 1 tablet (70 mg total) by mouth every 7 days Take in the morning with a full glass of water, on an empty stomach, and do not take anything else by mouth or lie down for the next 30 min. 12 tablet 3 12/31/2020 2 tiotropium bromide (SPIRIVA RESPIMAT) 2.5 mcg/actuation inhaler Inhale 2 puffs daily 70 mcg of tiotropium 2 12/31/2020 2 documented in this encounter Progress Notes * Haris Lauren MD - 12/31/2020 9:30 AM CDT Images from the original note were not included. Subjective/Objective Patient ID: Yuliana Johnson is a 80 y.o. female. Chief Complaint Establish Care (pt is here to [facility]. ) 80-year-old female. She has seen internal medicine at [facility]. Cardiology at [facility] as well. Currently doing well, baseline. Some memory issues. Weight stable. No shortness of breath or chest pain. Some fragmented lab work from September in March. Has a history of breast cancer. Does not smoke. Good appetite Allergies as of 12/31/2020 ??? (No Known Allergies) Outpatient Encounter Medications as of 12/31/2020 Medication Sig Dispense Refill ??? amLODIPine (NORVASC) 10 mg tablet Take 1 tablet by mouth once daily 90 tablet 0 ??? apixaban (Eliquis) 2.5 mg tablet Take 1 tablet (2.5 mg total) by mouth 2 (two) times a day 180 tablet 3 ??? carvediloL (COREG) 25 mg tablet Take 1 tablet by mouth twice daily 180 tablet 0 ??? clonazePAM (KlonoPIN) 0.5 mg tablet TAKE 1 TABLET BY MOUTH AT BEDTIME NEEDED FOR ANXIETY 30 tablet 0 ??? fenofibrate (TRIGLIDE) 160 mg tablet Take 1 tablet (160 mg total) by mouth daily 90 tablet 1 ??? losartan (COZAAR) 100 mg tablet Take 1 tablet (100 mg total) by mouth daily 90 tablet 1 ??? metFORMIN (GLUCOPHAGE) 500 mg tablet Take 1 tablet (500 mg total) by mouth 2 (two) times a day with meals 180 tablet 1 ??? pravastatin (PRAVACHOL) 40 mg tablet Take 1 tablet (40 mg total) by mouth daily 90 tablet 1 ??? [DISCONTINUED] zolpidem (AMBIEN) 10 mg tablet TAKE 1 TABLET BY MOUTH ONCE DAILY AT BEDTIME 30 tablet 0 ??? alendronate (FOSAMAX) 70 mg tablet Take 1 tablet (70 mg total) by mouth every 7 days Take in the morning with a full glass of water, on an empty stomach, and do not take anything else by mouth orlie down for the next 30 min. 12 tablet 3 ??? tiotropium bromide (SPIRIVA RESPIMAT) 2.5 mcg/actuation inhaler Inhale 2 puffs daily 70 mcg of tiotropium 2 ??? [DISCONTINUED] alendronate (FOSAMAX) 70 mg tablet Take 1 tablet (70 mg total) by mouth every 7 days Take in the morning with a full glass of water, on an empty stomach, and do not take anything else by mouth or lie down for the next 30 min. (Patient not taking: Reported on 12/31/2020) 12 tablet 3 ??? [DISCONTINUED] furosemide (LASIX) 20 mg tablet Take 1 tablet (20 mg total) by mouth daily as needed (leg swelling or worsening shortness of breath) (Patient not taking: Reported on 12/31/2020) 30 tablet 1 ??? [DISCONTINUED] HYDROcodone-acetaminophen (NORCO) 5-325 mg per tablet Take 1 tablet by mouth every 6 (six) hours as needed for pain (Patient not taking: Reported on 12/31/2020) 120 tablet 0 No facility-administered encounter medications on file as of 12/31/2020. Past Medical History: Diagnosis Date ??? Cancer [...] Grandmother (Added by TW Conv) Social History Socioeconomic History ??? Marital status: Spouse name: None ??? Number of children: None ??? Years of education: None ??? Highest education level: None Occupational History ??? None Tobacco Use ??? Smoking status: Never Smoker ??? Smokeless tobacco: Never Used Substance and Sexual Activity ??? Alcohol use: No ??? Drug use: No ??? Sexual activity: Defer Other Topics Concern ??? None Social History Narrative ??? None Social Determinants of Health Financial Resource Strain: ??? Difficulty of Paying Living Expenses: Not on file Food Insecurity: ??? Worried About Running Out of Food in the Last Year: Not on file ??? Ran Out of Food in the Last Year: Not on file Transportation Needs: ??? Lack of Transportation (Medical): Not on file ??? Lack of Transportation (Non-Medical): Not on file Physical Activity: ??? Days of Exercise per Week: Not on file ??? Minutes of Exercise per Session: Not on file Stress: ??? Feeling of Stress : Not on file Social Connections: ??? Frequency of Communication with Friends and Family: Not on file ??? Frequency of Social Gatherings with Friends and Family: Not on file ??? Attends Episcopal Services: Not on file ??? Active Member of Clubs or Organizations: Not on file ??? Attends Club or Organization Meetings: Not on file ??? Marital Status: Not on file Intimate Partner Violence: ??? Fear of Current or Ex-Partner: Not on file ??? Emotionally Abused: Not on file ??? Physically Abused: Not on file ??? Sexually Abused: Not on file Review of Systems Constitutional: Positive for fatigue. Negative for fever. Respiratory: Negative for cough and shortness of breath. Cardiovascular: Negative for chest pain and leg swelling. Gastrointestinal: Negative for abdominal pain and nausea. Musculoskeletal: Positive for back pain. Negative for neck pain. Neurological: Negative for seizures and headaches. Psychiatric/Behavioral: Positive for decreased concentration. Negative for confusion. The patient is not nervous/anxious. Vitals: 12/31/20 0939 BP: 128/68 BP Location: Right arm Patient Position: Sitting Pulse: 65 Temp: 36.9 ??C (98.5 ??F) TempSrc: Oral SpO2: 98% Weight: 61.6 kg (135 lb 12.8 oz) Height: 154.9 cm (5' 1 ) Physical Exam Constitutional: Appearance: She is well-developed. [...] place, and time. Psychiatric: Speech: Speech normal. Exam performed clothed PHQ Screening Over the last 2 weeks, how often have you been bothered by any of the following problems? Little Interest or Pleasure in Doing Things: Not at all Feeling Down, Depressed, or Hopeless: Not at all PHQ-2 Total Score (If total score is 3 or more points, staff should administer the PHQ-9): 0 Over the past 2 weeks, how often have you been bothered by any of the following problems? Little Interest or Pleasure in Doing Things: Not at all Feeling Down, Depressed, or Hopeless: Not at all PHQ-2 Total Score (If total score is 3 or more points, staff should administer the PHQ-9): 0 No exam data present Vision screening complete with a Spot Vision Screener Hearing exam completed with a Castañeda Williamson headphone audiometer. Assessment/Plan Diagnoses and all orders for this visit: Type 2 diabetes mellitus without complication, without long-term current use of insulin ([facility]) ([facility]) (Primary) - current A1c at 5.3. Labs done in September. Her routine labs would be CBC Chem 12 lipid A1c in April 21. Normally recommended annual eye exam Dyslipidemia - labs done. LDL less than 60. Continue present management HTN (hypertension), benign - continue present management still sees Cardiology Dr. Nolen Cerebrovascular accident (CVA) due to occlusion of other cerebral artery ([facility]) - stable S/P mitral valve repair - sees Cardiology Insomnia./anxiety - discontinue zolpidem - will possibly work on eliminating the benzodiazepine as well. - will go slowly Cough nonsmoker - will Spiriva 1 puff daily Osteoporosis. History compression fracture. - currently on Fosamax - September 17 bone density. Repeat September 19 Orders Placed This Encounter ??? CBC with auto differential Standing Status: Future Standing Expiration Date: 12/31/2021 ??? Comprehensive metabolic panel Standing Status: Future Standing Expiration Date: 12/31/2021 Order Specific Question: Has the patient fasted? Answer: No ??? Lipid panel Standing Status: Future Standing Expiration Date: 12/31/2021 Order Specific Question: Has the patient been fasting for 8 hours or more? Answer: No ??? Hemoglobin A1c Standing Status: Future Standing Expiration Date: 12/31/2021 ??? tiotropium bromide (SPIRIVA RESPIMAT) 2.5 mcg/actuation inhaler Sig: Inhale 2 puffs daily Dispense: 70 mcg of tiotropium Refill: 2 ??? alendronate (FOSAMAX) 70 mg tablet Sig: Take 1 tablet (70 mg total) by mouth every 7 days Take in the morning with a full glass of water, on an empty stomach, and do not take anything else by mouth or lie down for the next 30 min. Dispense: 12 tablet Refill: 3 Specific topics reviewed: drugs, ETOH, and tobacco, importance of regular dental care, importance of regular exercise, importance of varied diet, limit TV, media violence and minimize junk food. Haris Lauren MD documented in this encounter Plan of Treatment Not on file documented as of this encounter Visit Diagnoses Diagnosis Type 2 diabetes mellitus without complication, without long-term current use of insulin ([facility]) ([facility])- Primary Dyslipidemia Other and unspecified hyperlipidemia HTN (hypertension), benign Essential hypertension, benign Cerebrovascular accident (CVA) due to occlusion of other cerebral artery ([facility]) Establishing care with new doctor, encounter for S/P mitral valve repair Other postprocedural status Primary insomnia Persistent disorder of initiating or maintaining sleep Age-related osteoporosis without current pathological fracture documented in this encounter Discontinued Medications Medication Sig Discontinue Reason Start Date End Da te furosemide (LASIX) 20 mg tablet Take 1 tablet (20 mg total) by mouth daily as needed (leg swelling or worsening shortness of breath) Alternate therapy 04/29/2020 12/31/2020 HYDROcodone-acetaminoph en (NORCO) 5-325 mg per tabletIndications:Pain Take 1 tablet by mouth every 6 (six) hours as needed for pain Alternate therapy 10/20/2020 12/31/2020 zolpidem (AMBIEN) 10 mg tablet TAKE 1 TABLET BY MOUTH ONCE DAILY AT BEDTIME Therapy completed 12/22/2020 12/31/2020 alendronate (FOSAMAX) 70 mg tablet Take 1 tablet (70 mg total) by mouth every 7 days Take in the morning with a full glass of water, on an empty stomach, and do not take anything else by mouth or lie down for the next 30 min. Reorder 09/10/2020 12/31/2020 documented as of this encounter Care Teams Dye Winch Operator Relationship Specialty Start Date End Date Haris Lauren MD PCP - General Family Medicine 12/31/20 06/07/21 documented as of this encounter
--- OUTSIDE RECORDS SUMMARY | 2024-02-28 15:36 | XMS_ITS | Encounter Summary ---
Author Organization [facility] Address [address] [place] [address] Care Team Providers Care Clerical Adviser Name Role Phone Cassius Chambers MD Primary Care Provider [phone] Encounter Details Date Type Department Care Team (Late st Contact Info) Description 05/23/2020 Orders Only [facility] Neuro Interventional Radiology [address] [place] [address] Brianna Carvajal RN Social History Tobacco Use Types Packs/Day Years Used Date Smoking Tobacco: Never Smokeless Tobacco: Never Alcohol Use Standard Drinks/Week Comments No 0 (1 standard drink = 0.6 oz pur e alcohol) Comments No Sex and Gender Information Value Date Recorded Sex Assigned at Not on file 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
--- OUTSIDE RECORDS SUMMARY | 2024-02-28 15:36 | XMS_ITS | Encounter Summary ---
Author Organization [facility] Address [address] [place] [address] Care Team Providers Care Field Seismologist Name Role Phone Cassius Chambers MD Primary Care Provider [phone] Encounter Details Date Type Department Care Team (Late st Contact Info) Description 05/13/2020 Telephone [facility] Radiology [address] [place] [address] Estella Talley RN Social History Tobacco Use Types Packs/Day Years Used Date Smoking Tobacco: Never Smokeless Tobacco: Never Alcohol Use Standard Drinks/Week Comments No 0 (1 standard drink = 0.6 oz pur e alcohol) Comments No Sex and Gender Information Value Date Recorded Sex Assigned at Not on file 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 Johnson is aware of instructions for patient to take ASA 81 mg every day while holding Eliquis. He verbalized understanding and repeated instructions ----- Message from Mendy Torres RN sent at 05/13/2020 10:37 AM CDT ----- Regarding: RE: Eliquis hold approval request Kyaw Soria, I spoke with Dr. Madrid and he confirmed that pt can hold her Eliquis 5 days prior to surgery, but she will need to start ASA 81 mg every day while off of the Eliquis. Okay to restart the Eliquis post procedure once deemed safe by the surgeon. ----- Message ----- From: Estella Talley RN Sent: 05/13/2020 7:49 AM CDT To: Sp Madrid MD, Melanie Wilkes MA, # Subject: Eliquis hold approval request Good Morning Dr. Madrid and Jaimee, We received a referral from Dr. Chambers. Patient has vertebral compression fractures at L1 & T12 that we are pending treatment with vertebral augmentations. She is taking Eliquis and after checking her Cr clearance and our protocol, she will need to hold this for 5 days prior to the procedure withyour approval. Please respond if okay to do so. Thank you documented in this encounter Plan of Treatment Not on file documented as of this encounter Visit Diagnoses Not on filedocumented in this encounter Care Teams Field Seismologist Relationship Specialty Start Date End Date Cassius Chambers MD [address] [address] PCP - General 08/12/16 12/30/20 documented as of this encounter
--- OUTSIDE RECORDS SUMMARY | 2024-02-28 15:36 | XMS_ITS | Encounter Summary ---
Author Organization [facility] Healthcare Address [address] [place] [address] Care Team Providers Care Fruit Dumper Name Role Phone Haris Lauren MD Primary Care Provider [phone] Reason for Visit * Reason Comments Abdominal Pain Encounter Details Date Type Department Care Team (Late st Contact Info) Description 05/11/2021 7:30 AM CDT - 05/11/2021 11:35 AM CDT [facility] Operating Room [address] [place] [address] Stephanie Castelan MD [address] [place] [address] [phone] LAPAROSCOPIC CHOLECYSTECTOMY Surgery Details Date/Time Status Location OR Service Patient Class Case Class Case Type Trauma Case? 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 Gender Identity Female 06/15/2023 1:45 PM CDT Sexual Orientation Straight 06/15/2023 1: 45 PM CDT documented as of this encounter Last Filed Vital Signs Vital Sign Reading Time Taken Comments Blood Pressure 106/48 05/11/2021 11:30 AM CDT Pulse 70 05/11/2021 11:30 AM CDT Temperature 36.2 ??C (97.2 ??F) 05/11/2021 1 0:40 AM CDT Respiratory Rate 17 05/11/2021 11:3 0 AM CDT Oxygen Saturation 96% 05/11/2021 11: 30 AM CDT Inhaled Oxygen Concentration - - Weight 61.2 kg (134 lb 14.7 oz) 05/10/2021 1:45 AM STRATEGIC SOURCING MANAGER Height 154.9 cm (5' 0.98 ) 05/10/2021 1 2:30 AM STRATEGIC SOURCING MANAGER Body Mass Index 25.51 05/10/2021 12:30 AM STRATEGIC SOURCING MANAGER documented in this encounter Discharge Summaries * Sandi Azar PA - 05/12/2021 9:53 AM CDT [facility] Acute Care Surgery Inpatient Discharge Summary This is a clinical resume for patient Shavon Singh for attending Stephanie Castelan MD Admission Date: 05/09/2021 Admitting Provider: Michell Lucia MD Discharge Date: 05/12/2021 Hospitalization: Total duration of encounter: 3 days Team: Acute Care Surgery Primary Care Provider: Haris Lauren MD History of Present Illness: 80 y.o. female with PMH T2DM, pHTN, HTN, CVA, MV repair (2014) on Eliquis who presents with dull, RLQ pain, normal WBC and LFTs. CT findings show large stone in GB neck and borderline distended GB. RUQ showing GB distention, borderline wall thickening, impacted stone and associated biliary sludge. OR 05/11: laparoscopic cholecystectomy; small purulent spillage, cx sent Edited by: Sandi Azar PA at 05/12/2021 0748 Discharge Diagnosis(es): Abdominal pain Secondary Discharge Diagnosis: Principal Problem: Abdominal pain Active Problems: Calculus of gallbladder without cholecystitis without obstruction Type 2 diabetes mellitus (HCC) HTN (hypertension), benign S/P mitral valve repair CVA (cerebral vascular accident) (CMS/HCC) (HCC) Chronic diastolic heart failure (CMS/HCC) (HCC) Resolved Problems: No resolved hospital problems. Hospital Course: Calculus of gallbladder without cholecystitis without obstruction Assessment & Plan Presents with dull, RLQ pain, normal WBC [...] well. Voided overnight after aguilar was removed aftercase. Cultures from OR as below. Dermabond overtop laparoscopic sites; clean. Plan for augmentin x4days; WBC normal, afebrile. Doximity phone call follow up scheduled. Cultures -05/11 OR gallbladder aspirate; GPC in pairs and chains Antibiotics Cefoxitin (05/11- 05/12) Augmentin (05/12 - 05/16) Pathology--pending Chronic diastolic heart failure (CMS/HCC) (HCC) Assessment & Plan Home PRN lasix CVA (cerebral vascular accident) (CMS/HCC) ([facility]) Assessment & Plan -Most likely embolic in nature. Home Eliquis 2.5 mg twice a day -Heparin gtt -Restart eliquis at home tomorrow 05/13 S/P mitral valve repair Assessment & Plan (2014) -last Eliquis 05/09, started Hep gtt -Restart eliquis at home tomorrow 05/13 HTN (hypertension), benign Assessment & Plan - home Coreg and Amlodipine Type 2 diabetes mellitus (HCC) Assessment & Plan (HgbA1C 5.9) -home metformin and Glimepride -Consistent carb diet; insulin sensitive SSI * Abdominal pain Assessment & Plan SEE CALCULUS OF GALLBLADDER Active Issues Requiring Follow Up: -FU post-op s/p laparoscopic cholecystectomy ---FU pathology and cultures; DC on augmentin x4d Follow up: --Appointment: [facility] follow up Doximity phone call scheduled --Pathology/Cultures: follow up OR pathology and cultures Operative Procedures Performed: LAPAROSCOPIC CHOLECYSTECTOMY (N/A Abdomen) No surgery found Consultations: none Diagnostic studies: Lab Results Component Value Date WBC 9.0 05/12/2021 HGB 10.4 (L) 05/12/2021 HCT 32.6 (L) 05/12/2021 MCV 90.3 05/12/2021 LABPLAT 152 05/12/2021 Lab Results Component Value Date GLUCOSE 93 05/12/2021 CALCIUM 7.7 (L) 05/12/2021 SODIUM 139 05/12/2021 POTASSIUM 4.1 05/12/2021 CO2 24 05/12/2021 CHLORIDE 110 05/12/2021 BUNSER 14 05/12/2021 CREATININE 1.10 05/12/2021 No results found. Discharge Physical Exam: Discharge Condition: good Pulse: 69 Resp: 20 BP: 126/63 Temp: 36.4 ??C (97.5 ??F) Weight: 61.2 kg (134 lb 14.7 oz) GENERAL- no acute distress, comfortable NEURO- alert and oriented, normal balance and gait PSYCH- Mood and affect appropriate HEENT- Pupils equal, EOMs grossly normal, mucous membranes moist LYMPHATICS- no palpable lymphadenopathy CARDIO- regular rate and rhythm RESP- nonlabored respirations GI- abdomen soft, nontender, nondistended; wound as below MSK- grossly normal range of motion EXTREMITIES- extremities warm and dry, no swelling INTEGUMENT- no rashes Wound: laparoscopic sites closed with dermabond; clean, no signs of infection; open to air Diet: Diet Instructions Adult Discharge Diet Diet Type: Return to previous diet Discharge Disposition: Discharge to home or self care Code Status at Discharge: Full Code Activity: Activity Instructions Discharge Activity: Driving restrictions -Do not drive while taking pain medications. Discharge Activity: Lifting restrictions -Do NOT lift greater than 10 pounds for 6 weeks. Discharge Activity: Walking -You may walk as tolerated. activity as tolerated, no lifting, Driving, or Strenuous exercise for 6 weeks and no driving while on analgesics Wound Care: Able to bathe self, groom keep wound clean and dry Discharge Medications: Your medication list START taking these medications acetaminophen 500 mg capsule Take 2 capsules (1,000 mg total) by mouth every 6 (six) hours for 30 doses amoxicillin-clavulanate 875-125 mg per tablet Take 1 tablet by mouth 2 (two) times a day for 8 doses Commonly known as: AUGMENTIN oxyCODONE 5 mg immediate release tablet Take 1 tablet (5 mg total) by mouth every 4 (four) hours as needed for pain Commonly known as: ROXICODONE senna-docusate 8.6-50 mg Take 1 tablet by mouth daily for 14 days Commonly known as: PERICOLACE CONTINUE taking these medications alendronate 70 mg tablet Take 1 tablet (70 mg total) by mouth every 7 days Take in the morning with a full glass of water, on an empty stomach, and do not take anything else by mouth or lie down for the next 30 min. Commonly known as: FOSAMAX amLODIPine 10 mg tablet Take 1 tablet (10 mg total) by mouth daily Commonly known as: NORVASC apixaban 2.5 mg tablet Take 1 tablet (2.5 mg total) by mouth 2 (two) times a day with meals Commonly known as: Eliquis carvediloL 25 mg tablet Take 1 tablet (25 mg total) by mouth 2 (two) times a day with meals Commonly known as: COREG clonazePAM 0.5 mg tablet Take 1 tablet by mouth at bedtime as needed for anxiety Commonly known as: KlonoPIN fenofibrate 160 mg tablet Take 1 tablet (160 mg total) by mouth daily Commonly known as: TRIGLIDE losartan 100 mg tablet Take 1 tablet (100 mg total) by mouth daily Commonly known as: COZAAR metFORMIN 500 mg tablet Take 1 tablet (500 mg total) by mouth 2 (two) times a day with meals Commonly known as: GLUCOPHAGE pravastatin 40 mg tablet Take 1 tablet (40 mg total) by mouth daily Commonly known as: PRAVACHOL tiotropium bromide 2.5 mcg/actuation inhaler Inhale 2 puffs daily Commonly known as: SPIRIVA RESPIMAT Discharge Instructions: Other Instructions Call provider for: increased temperature -Temperature greater than 101 degrees F Call provider for: nausea, vomiting, diarrhea -If you have persistent nausea, vomiting or diarrhea that does not stop Call provider for: redness, tenderness, or signs of infection (pain, swelling, redness, odor or green/yellow discharge around incision site) Call provider for: severe uncontrolled pain Call provider for: any other concerns or questions If you have any questions/concerns please call the [facility] office at [phone] or if you have something urgent please present to the Emergency Department. Call provider if: you feel dizzy, very tired or like you may faint Care Instructions: Incisions -Keep incisions clean and dry Care Instructions: No tub baths -No tub baths, whirlpools or swimming until your provider says it's ok. Care Instructions: Shower -You may shower tomorrow. Discharge Wound Type: Skin Glue Special glue has been placed on your incision. It will flake off over 1 week. Do not pick, scratch or rub. This may cause it to come off before your incision has healed. Special Instructions -You can start to take your blood thinner, Eliquis, tomorrow (05/13) morning. [facility] Acute Care Surgery Discharge Instructions Care After Refer to this sheet in the next few weeks. These instructions provide you with information on caring for yourself after your procedure. Your caregiver may also give you more specific instructions. Your treatment has been planned according to current medical practices, but problems sometimes occur. HOME CARE INSTRUCTIONS ??? You can shower in 24 hours. ??? Keep the wound dry and clean. The wound may be washed gently with soap and water. Gently blot or dab the area dry. Let skin glue flake off on its own. Please do not peel off the skin glue. ??? Do not take baths or use swimming pools or hot tubs for 6 weeks, or as instructed by your caregiver. ??? Do not use petroleum products on your incisions (Neosporin or Vaseline) ??? Only take [id number] or prescription medicines for pain, discomfort, or fever as directedby your caregiver. ??? Continue your normal diet as directed by your caregiver. ??? Do not lift anything heavier than 10 pounds for 6 weeks. ??? Do not play contact sports for 6 weeks. ??? Do not drive for 1 week and off pain medications for 2 days. SEEK MEDICAL CARE IF: ??? There is redness, swelling, or increasing pain in the wound. ??? You notice yellowish-white fluid (pus) coming from the wound. ??? There is drainage from the wound that lasts longer than 1 day. ??? There is a bad smell coming from the wound or dressing. ??? The surgical cut (incision) breaks open. SEEK IMMEDIATE MEDICAL CARE IF: ??? You develop a rash. ??? You have difficulty breathing. ??? You develop chest pain. ??? Rapid heartbeat great than 120 beats per minute. ??? Extreme leg pain or significant leg swelling. ??? You develop any reaction or side effects to medicines given. ??? You have a fever greater than 101.5o Fahrenheit ??? You have increasing pain in the shoulders (shoulder strap areas). ??? You have dizzy episodes or faint while standing. ??? You develop severe abdominal pain. ??? You feel sick to your stomach (nauseous) or throw up (vomit) and this lasts for more than 1 day. ??? You develop diarrhea lasting 24 hours or longer MAKE SURE YOU: ??? Understand these instructions. ??? Will watch your condition. ??? Will get help right away if you are not doing well or get worse. For Follow Up [facility] at [phone] Follow up Future Appointments Date Time Provider Department Center 05/18/2021 9:30 AM Sp [place] MD [facility] Cardiology 05/27/2021 1:00 PM [facility] 07/01/2021 10:30 AM Haris Lauren MD [facility] 12/31/2021 11:00 AM Haris Lauren MD [facility] I spent greater than 30 minutes completing this hospital discharge. Sandi Azar PA-C 05/12/21 CC: Haris Lauren MD Cosigned by Sarahy Delacruz MD at 05/12/2021 3:23 PM CDT documented in this encounter Medications at Time of Discharge amoxicillin-clav ulanate (AUGMENTIN) 875-125 mg per tabletIndication s:Abdominal/Pelv ic Infection Take 1 tablet by mouth 2 (two) times a day for 8 doses 8 tablet 05/12/2021 2 acetaminophen 500 mg capsule Take 2 capsules (1,000 mg total) by mouth every 6 (six) hours for 30 doses 60 tablet 05/12/2021 2 alendronate (FOSAMAX) 70 mg tablet Take 1 tablet (70 mg total) by mouth every 7 days Take in the morning with a full glass of water, on an empty stomach, and do not take anything else by mouth or lie down for the next 30 min. 12 tablet 3 03/26/2021 2 amLODIPine (NORVASC) 10 mg tablet Take 1 tablet (10 mg total) by mouth daily 90 tablet 2 03/26/2021 2 apixaban (Eliquis) 2.5 mg tablet Take 1 tablet (2.5 mg total) by mouth 2 (two) times a day with meals 180 tablet 2 03/26/2021 2 carvediloL (COREG) 25 mg tablet Take 1 tablet (25 mg total) by mouth 2 (two) times a day with meals 180 tablet 2 03/26/2021 2 clonazePAM (KlonoPIN) 0.5 mg tablet Take 1 tablet by mouth at bedtime as needed for anxiety 30 tablet 1 03/25/2021 2 fenofibrate (TRIGLIDE) 160 mg tablet Take 1 tablet (160 mg total) by mouth daily 90 tablet 03/26/2021 2 losartan (COZAAR) 100 mg tabletIndication s:Type 2 diabetes mellitus without complication, without long-term current use of insulin (CMS/HCC) (HCC) Take 1 tablet (100 mg total) by mouth daily 90 tablet 2 03/26/2021 3 metFORMIN (GLUCOPHAGE) 500 mg tablet Take 1 tablet (500 mg total) by mouth 2 (two) times a day with meals 180 tablet 1 03/26/2021 2 oxyCODONE (ROXICODONE) 5 mg immediate release tabletIndication s:Pain Take 1 tablet (5 mg total) by mouth every 4 (four) hours as needed for pain 10 tablet 05/12/2021 2 pravastatin (PRAVACHOL) 40 mg tablet Take 1 tablet (40 mg total) by mouth daily 90 tablet 03/26/2021 2 senna-docusate (PERICOLACE) 8.6-50 mg Take 1 tablet by mouth daily for 14 days 14 tablet 05/12/2021 3 tiotropium bromide (SPIRIVA RESPIMAT) 2.5 mcg/actuation inhaler Inhale 2 puffs daily 70 mcg of tiotropium 2 03/26/2021 4 documented as of this encounter Ordered Prescriptions Prescription Sig Dispense Quantity Refills Last Filled Start Date End Date oxyCODONE (ROXICODONE) 5 mg immediate release tabletIndications: Pain Take 1 tablet (5 mg total) by mouth every 4 (four) hours as needed for pain 10 tablet 05/12/2021 2 senna-docusate (PERICOLACE) 8.6-50 mg Take 1 tablet by mouth daily for 14 days 14 tablet 05/12/2021 3 amoxicillin-clavul anate (AUGMENTIN) 875-125 mg per tabletIndications: Abdominal/Pelvic Infection Take 1 tablet by mouth 2 (two) times a day for 8 doses 8 tablet 05/12/2021 2 acetaminophen 500 mg capsule Take 2 capsules (1,000 mg total) by mouth every 6 (six) hours for 30 doses 60 tablet 05/12/2021 2 documented in this encounter Discharge Disposition Disposition Code Departure Means Destination Discharge to home or self care documented in this encounter Progress Notes * Jelly Escalera RN - 05/12/2021 1:34 PM CDT 05/12/21 9507 Discharge Summary Chart reviewed For Medical Necessity Does patient have a planned readmission to hospital planned? No Discharge Disposition Home Equipment/Provider Needs No Home Needs Identified Discharge Additional Assistance Does the patient need discharge transport arranged? No Post Discharge Care Provider Post Discharge Care Plan DC Summary has been faxed to next level of care provider (see Follow Up Providers) Family to provide transportation home. If needed, my mobile phone is [phone] * Michelle Hudson, DPT - 05/12/2021 7:57 AM CDT Physical Therapy Physical Therapy Initial Assessment NOTE: This is a summary note for the marvin assessments completed during the evaluation session. For full details, review chart review for all flowsheets documented on by this physical therapist on thisdate. Vital signs documented in vital signs flowsheet. Assessment Assessment Prognosis: Good Plan Plan Plan : Discharge, If this is the last note, consider this the discharge summary PT Recommendation and Plan Recommendation/Plan PT Recommendation/Plan: Home with family PT Frequency: One time visit (Discharge from this service) PT - OK to Discharge: Yes PT Evaluation Complete: Yes General Information General Chart Reviewed: Yes Session Type: Evaluation PT Received On: 05/12/21 Safe Environment: Arm Band Checked, Call Light within Reach, Notified RN, Patient found in Supine, Overbed Table within Reach (Pt left sitting in chair with call light) Subjective: Agreeable to Therapy Family/Caregiver Present: No Physical Therapy-Patient Goal: Pt denied any goals related to skilled PT in the acute care setting. Prior Function Prior Function Level of Sharkey: Independent functional transfers, Independent with ambulation Lives With: Spouse Receives Help From: Spouse/Significant other, Family (night time babysitter assist) Fall within the last 6 months: Yes Fall within the last 6 months comment: Pt reported 2 falls realted to losing balance Home Living Home Living Type of Home: House Home Layout: Basement, Able to live on main level with bedroom/bathroom Home Access: Level entry Home Mobility Equipment: Wheeled walker Precautions Precautions Precautions: Abdominal, Fall risk Precaution Handout Issued: No Precaution Comments: Verbally reviewed precautions prior to mobility for comfort-- pt verbalized understanding and maintained throughout session Pain Pain Assessment Pain Assessment: 0-10 Pain Score: 4 Pain Type: Surgical pain Pain Location: Incision Pain Interventions: RN Notified (EDD Bowman) Cognition Cognition Arousal/Alertness: Alert Orientation : Oriented X4 (person, place, time, situation) Following Commands: Follows all commands and directions without difficulty 6 Clicks Basic Mobility - 6 Click How much difficulty does the patient have: Turning over in bed: A little How much difficulty does the patient currently have: Sitting down and standing up from a chair witharms?: A little How much difficulty does the patient have: Moving from lying on back to sitting on the side of the bed?: A little How much difficulty does the patient have: Moving to and from a bed to a chair including wheelchair?: A little How much help does the patient currently need: Walk in hospital room?: A little How much help from another person does the patient currently need: Climbing 3-5 steps with a railing?: A little Total 6 Click Score (range 6-24): 18 Score Interpretation: 18 Bed Mobility Transfers Transfers Transfer: Yes Transfer 1 Transfer From 1: Sit Transfer Type 1: To and from Transfer to 1: Stand Transfer Device 1: Wheeled walker Transfer Level of Assistance 1: Distant supervision Trials/Comments 1: Cues for technique/hand placement Balance Static Sitting Balance Static Sitting-Balance Support: Feet supported, No upper extremity supported Static Sitting-Sitting Surface: Bed Static Sitting-Level of Assistance: Independent Static Standing Balance Static Standing-Balance Support: Bilateral upper extremity supported (with wheeled walker) Static Standing-Standing Surface: Floor Static Standing-Level of Assistance: Close supervision Ambulation Ambulation Functional Ambulation Category: Ambulator, dependent on supervision Ambulation: Yes Ambulation 1 Distance (ft) 1: 120 Surface 1: Level tile Device 1: Wheeled walker Assistance 1: Distant supervision Gait: Requires verbal cues to 1: Use assistive device safely, Prevent bumping into environmental barriers (schroeder/furniture), Improve upright posture, Pace activity Quality of Gait 1: Decreased paulette Stairs Stairs Stairs: No Stair Comments: Pt reported having no stairs she needs to perform at home Curbs RLE Assessment RLE Assessment RLE Assessment: Within Functional Limits LLE Assessment LLE Assessment LLE Assessment: Within Functional Limits Equipment Used Equipment Use Equipment Use Comments: Gait belt used Other Comments Other Comments Other PT Comments: Pt educated on using wheeled walker at home until she felt back on her feet- pt verbalized understanding. Pt denied any further goals related to skilled PT in the acute care setting. Pt is discharged; please re- refer if there is a change in status or further need develops. PT Goals Multi-Disciplinary Problems (from Physical Therapy) Active Problems Not on file For questions, please review the treatment team and contact the PT or TAILINGS DAM LABORER currently assigned to this patient. If a physical therapy clinician is not assigned to this patient, please call [phone]. * Nancy Nelson MD - 05/11/2021 10:29 AM CDT [facility] Post Op Check Note Shavon Carter Elizabeth 1940 [id number] 80 y.o. female with PMH s/f T2DM, pHTN, HTN, CVA, MV repair on Eliquis (last dose 05/09) who presents with dull, RLQ pain, normal WBC and LFTs. RUQ/CT findings show large stone in GB neck and borderline distended GB; however, symptoms/signs not consistent w/ acute cholecystitis. Abd PSH: hysterectomy Pt returns from the OR 05/11/2021 s/p LAPAROSCOPIC CHOLECYSTECTOMY by Stephanie Castelan MD for Pre-op Diagnosis * Calculus of gallbladder without cholecystitis without obstruction [K80.20] Pain:controlled Nausea: No Urine output: void check ok Diet: Dietary Orders (From admission, onward) Start Ordered 05/11/21 1330 Adult Diet Clear Liquid, Restricted; Consistent Carbohydrate Diet effective now Question Answer Comment ([facility]) Diet type Clear Liquid ([facility]) Diet type Restricted Diabetic: Consistent Carbohydrate 05/11/21 1329 Physical Exam: Vitals: 05/11/21 0700 BP: 136/55 Pulse: 73 Resp: 19 Temp: SpO2: 92% Physical exam: GENERAL: No acute distress, resting comfortably NEURO: drowsy, arouses to call PSYCH: appropriate mood and affect HEENT: normocephalic, atraumatic, pupils equal, EOMs grossly intact, neck supple, trachea midline RESP: Clear to auscultation bilaterally, normal effort CARDIO: RRR, no m/r/g ABDOMEN: Soft, TTP in R hemiabdomen, - Silva's sign Ext: no cyanosis, clubbing, or edema. Warm and well perfused MUSCULOSKELETAL: Grossly normal range of motion Incision/Dressing is clean, dry, intact with Dermabond Assessment and Plan Doing well. Continue current management. - Pain control. No toradol. - Hold heparin for 4 hours (until 1430). - CLD, ADAT - 24h perioperative abx - Monitor UOP Nancy Mariano MD PGY-1 Anesthesiology Cosigned by Sarahy Delacruz MD at 05/18/2021 10:37 AM CDT * Jelly Escalera RN - 05/10/2021 1:23 PM CDT CM Initial Assessment Interview Note Information Obtained From: Patient (05/10/211321) Admission Source: home Impression: abdominal pain Plan Includes: scheduled for lap CCK on 05/11/21 Primary Source of Transportation: car Health Insurance Coverage: Medicare A & B and [facility] Prescription Coverage: yes Pharmacy: [facility] Primary Care Provider: Haris Lauren MD Prior to Admission: Primary Caregiver: Self Support System: Spouse/Significant Other Support system contact info (name, phone, availablity): greer Major [phone] Home Care Services: No Durable Medical Equipment: Walker (wheeled) Living Arrangements: Spouse/significant other Type of Residence: Private residence Steps in home? : Yes, Outside of home Number of steps outside:: 4 steps (05/10/211321) Potential discharge needs include: none Dialysis: no Behavioral Health Services: Behavioral Health Services: No (05/10/211321) Patient expects to be Discharged to: Private residence, (05/10/211321) Additional Information: Family to provide transportation home. Patient's Identified Problem/Goal Problem: Ensure acute medical [...] Collaboration with patient, MD, direct care nurse, Supervisor Shed Workers, Nurse Coordinator and other members of the health care team to assure needed interventions completed. 2. Return patient to optimal level of self-care post discharge. 3. Drywall Taper Helper will follow for Discharge Planning - interventions as needed 4. Anticipated level of care at discharge 5. Planned Discharge Disposition Based on a comprehensive family assessment, assistance with instrumental activities of daily livingafter discharge will be provided by family Through the course of our work I determined that the family possesses the skill and ability to provide and monitor the care of the patient when he or she returns home. Family has the capacity to provide/monitor/arrange for the care of the patient. Finally, we determined that family has the knowledge of available resources and that combining them with their existing resources will suffice to sustain and care for the patient when he or she returns home. The treatment team is aware of this information. All are in agreement with the aftercare plan. Jelly Escalera RN * Jordan Petersen MD - 05/10/2021 5:04 AM CDT ED ACCEPT NOTE 80 y.o. female with PMH s/f T2DM, pHTN, HTN, CVA, MV repair on Eliquis who presents with dull, RLQ pain, normal WBC and LFTs. CT findings show large stone in GB neck and borderline distended GB; however, symptoms/signs not consistent w/ acute cholecystitis. Abd PSH: hysterectomy Subjective: Doing well. The patient denies nausea and vomiting at this time. No pain. Objective: Vital Signs: stable Physical exam: GENERAL: No acute distress NEURO: Alert and oriented x3 PSYCH: appropriate mood and affect HEENT: normocephalic, atraumatic, pupils equal, EOMs grossly intact, neck supple, trachea midline RESP: Clear to auscultation bilaterally, normal effort CARDIO: RRR, no m/r/g ABDOMEN: Soft, TTP in R hemiabdomen, - Silva's sign Ext: no cyanosis, clubbing, or edema. Warm and well perfused MUSCULOSKELETAL: Grossly normal range of motion Plan: [ ] RUQ US- impacted stone, +/- cholecystitis -last eliquis dose 05/09 AM -case requested for Thursday 05/11 lap nadine documented in this encounter Consult Notes * Ori Padilla MD - 05/09/2021 5:48 PM CST [facility] Acute Care Surgery Consultation Encounter Date: 05/09/21 Patient Identification Patient's Primary Care Physician: Haris Lauren MD Name: Shavon Singh Age: 80 y.o. Sex: female Reason for Consultation: Physician requesting consult: Anthony Beth,* has asked that we see Shavon Singh for evaluation of acute cholecystitis vs biliary colic. Patient information was obtained from patient. History/Exam limitations: none. Chief Complaint Abdominal Pain History of Present Illness: Shavon Singh is a 80 y.o. female with PMH s/f T2DM, pHTN, HTN, CVA, on Eliquis who presents to ED for RLQ pain that started yesterday and gotten worse. She describes the pain as dull and achy anddenies radiation to R shoulder. Endorses nausea and decreased appetite; however denies vomiting, fever, chills, or pain associated with eating. She reported to ED for evaluation where vitals were wnl, WBC was 8, and had normal LFTs. CT scan was obtained and showed borderline distension of the GB and a large stone in GB neck. Past Medical: Past Medical History: Diagnosis Date ??? Cancer (CMS/HCC) (HCC) breast ??? Diabetes mellitus (HCC) ??? Hyperlipidemia ??? Hypertension Surgical History: Past Surgical History: Procedure Laterality Date ??? HYSTERECTOMY ??? KYPHOPLASTY THORACIC N/A 05/23/2020 ??? MASTECTOMY Left ??? MITRAL VALVE REPAIR Current Medications: No current facility-administered medications for this encounter. Current Outpatient Medications Medication Sig Dispense Refill ??? alendronate (FOSAMAX) 70 mg tablet Take [...] day with meals 180 tablet 2 ??? clonazePAM (KlonoPIN) 0.5 mg tablet Take 1 tablet by mouth at bedtime as needed for anxiety 30 tablet 1 ??? fenofibrate (TRIGLIDE) 160 mg tablet Take 1 tablet (160 mg total) by mouth daily 90 tablet 0 ??? losartan (COZAAR) 100 mg tablet Take [...] puffs daily 70 mcg of tiotropium 2 Allergies: No Known Allergies Family History: Family History Problem Relation Age [...] Grandmother (Added by TW Conv) Social History: reports that she has never smoked. She has never used smokeless tobacco. She reports that she does not drink alcohol and does not use drugs. Review of Systems Constitutional: Negative for fatigue, weight loss, fevers, chills, anorexia. Eyes: Negative for changes in vision or ocular discharge Ears, nose, mouth, and throat: Negative for ear pain, nasal drainage, sore throat Respiratory: Negative for shortness of breath, acute cough, asthma, wheezing Cardiovascular: Negative for chest pain, cyanosis Gastrointestinal: per HPI Genitourinary: Negative for dysuria, hematuria Skin: Negative for rash Hematologic/lymphatic: Negative for easy bruising Musculoskeletal:Negative for joint pain, muscle pain Neurological: Negative for headaches, seizures Physical Examination: Ht:154.9 cm (5' 1 ) Wt:61.2 kg (135 lb) Body mass index is 25.51 kg/m??. BP 130/64 Pulse 66 Temp 36.2 ??C (97.1 ??F) Resp 18 Ht 154.9 cm (5' 1 ) Wt 61.2 kg (135 lb) SpO2 97% BMI 25.51 kg/m?? GENERAL: No acute distress NEURO: Alert and oriented x3 PSYCH: appropriate mood and affect HEENT: normocephalic, atraumatic, pupils equal, EOMs grossly intact, neck supple, trachea midline RESP: Clear to auscultation bilaterally, normal effort CARDIO: RRR, no m/r/g ABDOMEN: Soft, TTP in R hemiabdomen, - Silva's sign Ext: no cyanosis, clubbing, or edema. Warm and well perfused MUSCULOSKELETAL: Grossly normal range of motion Labs, Radiology and Diagnostic Review: Laboratory review: Lab results in the last 12 hours: Recent Results (from the past 12 hour(s)) POCT glucose Collection Time: 05/09/21 1:21 PM Result Value Ref Range Glucose, POC 157 70 - 199 mg/dL CBC with auto differential Collection Time: 05/09/21 3:07 PM Result Value Ref Range WBC 8.0 3.8 - 9.9 K/cumm Hgb 12.9 11.9 - 15.5 g/dL Hct 40.1 35.6 - 45.5 % Plt 198 150 - 400 K/cumm MPV 11.6 9.1 - 12.3 fL RBC 4.46 3.90 - 5.20 M/cumm MCV 89.9 81.3 - 96.4 fL MCH 28.9 27.1 - 33.3 pg MCHC 32.2 (L) 32.3 - 35.7 g/dL RDW CV 14.2 11.1 - 14.9 % RDW SD 46.7 35.7 - 48.1 fL NRBC abs 0.00 0.00 - 0.01 K/cumm Comprehensive metabolic panel Collection Time: 05/09/21 3:07 PM Result Value Ref Range Sodium 138 135 - 145 mmol/L Potassium, pl 4.0 3.3 - 4.9 mmol/L Chloride 106 97 - 110 mmol/L CO2 22 22 - 32 mmol/L Anion gap 10 2 - 15 mmol/L BUN 24 8 - 25 mg/dL Creatinine 0.95 0.60 - 1.10 mg/dL Glucose 166 70 - 199 mg/dL Calcium 9.2 8.5 - 10.3 mg/dL Bilirubin, total 0.4 0.1 - 1.2 mg/dL Protein, pl 7.5 6.5 - 8.5 g/dL Albumin 4.4 3.5 - 5.0 g/dL Alk phos 59 40 - 130 Units/L ALT 19 7 - 45 Units/L AST 27 10 - 45 Units/L Troponin I high-sensitivity series (baseline, 2hr, 4hr, 6hr) Collection Time: 05/09/21 3:07 PM Result Value Ref Range Trop I hs 4 <=17 ng/L Differential, auto Collection Time: 05/09/21 3:07 PM Result Value Ref Range Neutrophil abs 5.9 1.7 - 6.5 K/cumm Imm gran abs 0.0 0.0 - 0.1 K/cumm Lymphocyte abs 1.4 0.8 - 3.3 K/cumm Monocyte abs 0.5 0.2 - 0.8 K/cumm Eosinophil abs 0.2 0.0 - 0.5 K/cumm Basophil abs 0.1 0.0 - 0.1 K/cumm Neutrophil pct 73.2 % Imm gran pct 0.1 % Lymphocyte pct 17.3 % Monocyte pct 6.6 % Eosinophil pct 1.9 % Basophil pct 0.9 % eGFR Collection Time: 05/09/21 3:07 PM Result Value Ref Range eGFR 60 (L) 90 - 130 mL/min/1.73 m2 Urinalysis reflex to microscopic and culture Urine Collection Time: 05/09/21 3:08 PM Specimen: Urine Result Value Ref Range Color, ur Straw Yellow Clarity, ur Clear Clear Specific gravity, ur 1.024 1.003 - 1.030 pH, urine 6.0 Protein, ur ql Trace Negative Glucose, ur ql Negative Negative Ketones, ur Negative Negative Bilirubin, ur Negative Negative Blood, ur Trace (A) Negative Urobilinogen, ur <2.0 <2.0 mg/dL Nitrite, ur Negative Negative Leukocyte esterase, ur Negative Negative UA reflex comment Reflex to microscopic UA will be performed. Urinalysis, microscopic only Collection Time: 05/09/21 3:08 PM Result Value Ref Range WBC, ur 0-5 0 - 5 /HPF RBC, ur 0-2 0 - 2 /HPF Epithelial cells, squamous, ur 1-5 0 - 5 /HPF Mucous, ur Present (A) Culture Reflex Comment Reflex conditions for urine culture (WBC >10) not met. POCT glucose Collection Time: 05/09/21 4:51 PM Result Value Ref Range Glucose, POC 122 70 - 199 mg/dL Glucose comment 1 Glu2: RN/MD Notified Imaging: CT Abdomen Pelvis W Contrast Result Date: 05/09/2021 1. Borderline gallbladder distention and cholelithiasis without definite evidence of acute cholecystitis. Recommend clinical correlation for symptoms of biliary colic. 2. Pancolonic diverticulosis without evidence of diverticulitis. Dictated by: Akira Granda The radiology attending physicianhas personally reviewed this study, and had reviewed and/or edited this written report and agrees with it. Electronically signed by: Charly Quintanilla M.D. Assessment and Plan: Patient Active Problem List Diagnosis ??? Arteriosclerotic vascular disease ??? Type 2 diabetes mellitus (HCC) ??? Dyslipidemia ??? HTN (hypertension), benign ??? Mitral valve insufficiency ??? Pulmonary hypertension (CMS/HCC) (HCC) ??? S/P mitral valve repair ??? Tricuspid valve disorder ??? CVA (cerebral vascular accident) (CMS/HCC) (HCC) ??? Compression fracture of T12 vertebra (HCC) ??? Primary insomnia ??? Establishing care with new doctor, encounter for ??? Age-related osteoporosis without current pathological fracture Shavon Singh is a 80 y.o. female with PMH s/f T2DM, pHTN, HTN, CVA, on Eliquis who presents with dull, RLQ pain, normal WBC. CT findings show large stone in GB neck and borderline distended GB; however, symptoms/signs not consistent w/ acute cholecystitis. - Obtain RUQ US - If evidence of cholecystitis pt can be admitted to ACCS - If just cholelithiasis, pt can follow up as outpatient to discuss elective cholecystectomy Discussed with attending: Michell Lucia MD. Ori Padilla MD Cosigned by Michell Lucia MD at 05/09/2021 10:48 PM STRATEGIC SOURCING MANAGER TEGIC SOURCING MANAGER TEGIC SOURCING MANAGER Associated attestation - Michell Lucia MD - 05/09/2021 10:48 PM STRATEGIC SOURCING MANAGER I have seen and examined the patient on the date of service as documented in the resident note and agree with the findings and plan as discussed with the resident. Michell Lucia MD documented in this encounter Nursing Notes * Ester Goodman RN - 05/11/2021 12:20 PM CDT Huge gall stone given to pt's * Kiarra Baez RN - 05/10/2021 7:54 AM CDT 0600: STAT labs collected and sent to lab. Oncoming nurse informed about pending heparin drip. Kiarra Baez RN * Kiarra Baez RN - 05/10/2021 3:30 AM CDT 0300: Pt arrived to unit via wheelchair accompanied by transporter. Pt A/0x4, ambulated safely to restroom. IV in R forearm, saline locked, CDI. Unit and room orientation explained to pt at bedside. Pt rated pain 6/10, repositioned but did not alleviate pain, administered prn pain med. Will reassess. Kiarra Baez RN documented in this encounter ED Notes * Anthony Beth MD - 05/09/2021 4:14 PM CST HPI Chief Complaint Patient presents with ??? Abdominal Pain HPI 80-year-old female with history of type 2 diabetes, pulmonary hypertension, dyslipidemia, hypertension, mitral valve insufficiency, CVA, on Eliquis, presenting with right lower quadrant abdominal pain. Patient reports that the pain started yesterday afternoon but became worse overnight. Reports 9/10 pain that is constant. Does not radiate anywhere else. Associated with some nausea but no vomiting. Associated with anorexia. Had very poor p.o. intake earlier today. No fever chills. Denies any genitourinary symptoms or change in frequency or dysuria. Denies any constipation or diarrhea. Denies any history of smoking. Denies any drug use. No constipation. Does also report some shortness of breath that she has had over the past week. Denies any orthopneaor PND. Reports that is present on and off at rest. Denies any chest pain currently. Denies any alcohol use. No other symptoms at this time. No cough Patient History: Patient Active Problem List Diagnosis Date Noted ??? Primary insomnia 12/31/2020 ??? Establishing care [...] Review of Systems Review of Systems Constitutional: Positive for appetite change. Negative for chills and fever. HENT: Negative for ear pain and sore throat. Eyes: Negative for pain and visual disturbance. Respiratory: Positive for shortness of breath. Negative for cough, choking and chest tightness. Cardiovascular: Negative for chest pain and palpitations. Gastrointestinal: Positive for abdominal pain and nausea. Negative for abdominal distention, anal bleeding, diarrhea and vomiting. Genitourinary: Negative for dysuria and hematuria. Musculoskeletal: Negative for arthralgias and back pain. Skin: Negative for color change and rash. Neurological: Negative for seizures and syncope. All other systems reviewed and are negative. Physical Exam ED Triage Vitals [05/09/21 1315] Temp Pulse Resp BP SpO2 36.2 ??C (97.1 ??F) 69 18 123/75 97 % Temp src Heart Rate Source Patient Position BP Location FiO2 (%) -- -- -- -- -- Physical Exam Vitals and nursing note reviewed. [...] Palpations: Abdomen is soft. Tenderness: There is abdominal tenderness in the right lower quadrant. There is guarding. There is no rebound. Negative signs include Silva's sign and Rovsing's sign. Musculoskeletal: Cervical back: Neck supple. Skin: General: Skin is warm and dry. Capillary Refill: Capillary refill takes less than 2 seconds. Neurological: Mental Status: She is alert and oriented to person, place, and time. MDM Medical Decision Making Differential Diagnosis or Management Options: 80-year-old female with history of type 2 diabetes, pulmonary hypertension, dyslipidemia, hypertension, mitral valve insufficiency, CVA, on Eliquis, presenting with right lower quadrant abdominal pain. Patient reports that the pain started yesterday afternoon but became worse overnight. Reports 9/10 pain that is constant. Does not radiate anywhere else. Associated with some nausea but no vomiting. Associated with anorexia. Had very poor p.o. intake earlier today. No fever chills. Denies any genitourinary symptoms or change in frequency or dysuria. Denies any constipation or diarrhea. Denies any history of smoking. Denies any drug use. No constipation. Exam notable for tenderness to the right lower quadrant and guarding. No rebound tenderness. No McBurney sign. No Rovsing. Will plan for CBC, CMP, troponin, EKG, chest x-ray, and likely CT abdomen pelvis. Differential diagnosis includes appendicitis, diverticulitis, pancreatitis, ACS, cholecystitis, gastritis, UTI, pyelonephritis. Dispo pending workup and symptomatic improvement. Attending Summary of Care ED Course as of 05/10/21 1906 Time: 05/09 1629 Comment: 80 year old female with CVA and right sided deficits, mitral valve insufficiency s/p repair on eliquis, breast cancer. Here with RLQ pain x 24 hours which has gradually worsened. Associated with nausea, no fevers/chills. ROS with chest pain, no orthopnea/pnd/edema. Exam with RLQ tenderness and without rebound. Labs thus far unremarkable, will add on troponin due to chest pain noted on ROS and CT abdomen/pelvis. By: Anthony Beth MD Time: 05/09 1733 Comment: IMPRESSION: ?? 1. Borderline gallbladder distention and cholelithiasis without definite evidence of acute cholecystitis. Recommend clinical correlation for symptoms of biliary colic. 2. Pancolonic diverticulosis without evidence of diverticulitis. ?? By: Eduardo Brush MD Time: 05/09 1745 Comment: Surgery will assess patient for possible cholecystitis By: Eduardo Brush MD Time: 05/09 1953 Comment: Surgery requesting RUQ US. By: Michell Luo MD Time: 05/09 1355 Value: US RUQ Comment: Borderline findings of acute cholecystitis. Still requiring IV opioids for analgesia. Willd/w surgery. By: Michell Luo MD Time: 05/09 2254 Comment: Surgery will discuss admission with patient and family. By: Michell Luo MD Time: 05/094 Comment: Sign out: 80F p/w RUQ symptoms plan for admission. By: Sheridan Haney MD Abdominal pain Biliary calculus of other site without obstruction Calculus of gallbladder without cholecystitis without obstruction Eduardo Brush MD Resident 05/09/211902 I have seen and examined the patient on 05/09/2021. I agree with the findings and plan of care as documented in the resident's note. Anthony Beth MD 05/10/211906 TEGIC SOURCING MANAGER * Sandi Wooten RN - 05/09/2021 1:14 PM CST Patient here with right upper abdominal/flank pain. She states the pain started last night around 1700 but her states the pain has been hurting her for the past couple of days. She denies N/V/D. She also denies any urinary problems. PMH of abiel alaniz DM, HTN and hyperlipidemia. TEGIC SOURCING MANAGER documented in this encounter Miscellaneous Notes * Provider Query - Stephanie Castelan MD - 05/12/2021 1:34 PM CDT Clinical Indicators/Treatments: - Acute cholecystitis, impacted gallstone (op note 05/13) - Calculous of gallbladder without cholecystitis (Discharge Summary 05/12) Evaluation/Management: Laparoscopic cholecystectomy Conflicting documentation is present in the medical record. Specify the appropriate diagnosis and document in the medical record and on the form below. Dx 1) Acute calculous cholecystitis Dx 2) Gallstone without cholecystitis _x__ Acute calculous cholecystitis was present ___ Gallstone without cholecystitis was present ___ Other, specify below ___ Clinically unable to determine Additional Provider Response: Use of terms such as likely, suspected, possible, or probable (associated with a specific diagnosisthat is being evaluated, monitored, or treated as if it exists) are acceptable and can be coded in the inpatient setting when documented at the time of discharge. This documentation will become part of the patient???s medical record. Andrew Kincaid MD, CCDS Clinical Probation Manager Email: [email or web address] * Plan of Care - Ariadna Warren RRT - 05/12/2021 8:44 AM CDT Patient is able to administer their MDI independently. Plan - Turn MDI administration over to nursing. * Assessment & Plan Note - Sandi Azar PA - 05/12/2021 7:51 AM CDT Associated Problem(s): Calculus of gallbladder without cholecystitis without obstruction (Resolved 03/17/2022) Presents with dull, RLQ pain, normal WBC [...] well. Voided overnight after aguilar was removed aftercase. Cultures from OR as below. Dermabond overtop laparoscopic sites; clean. Plan for augmentin x4days; WBC normal, afebrile. Doximity phone call follow up scheduled. Cultures -05/11 OR gallbladder aspirate; GPC in pairs and chains Antibiotics Cefoxitin (05/11- 05/12) Augmentin (05/12 - 05/16) Pathology--pending * Assessment & Plan Note - Sandi Azar PA - 05/12/2021 7:51 AM CDT Associated Problem(s): Abdominal pain (Resolved 03/17/2022) SEE CALCULUS OF GALLBLADDER * Plan of Care - Perez Flannery RN - 05/11/2021 2:06 PM CDT Goals: Clinical Goals for the Shift: Monitor VS and Pain, Heparin Drip Management and Rest Summary: PAtient progressing towards goals. Education provided on medication, VS, pain control, andpost op procedures. Patient returned drowsy oriented x3. Denies pain. Wounds assessed. Waiting on void and return of bowel function. Problem: Health Behavior: Goal: Understanding of discharge needs will improve Outcome: Progressing Problem: Activity: Goal: Risk for activity intolerance will decrease Outcome: Progressing Problem: Lack of Knowledge: Goal: Knowledge of disease or condition will improve Outcome: Progressing Goal: Ability to state and carry out methods to decrease the pain will improve Outcome: Progressing Problem: Nutritional: Goal: Nutritional status will be supported Outcome: Progressing Problem: Fluid Volume: Goal: Maintenance of adequate hydration will improve Outcome: Progressing Problem: Health Behavior: Goal: Ability to state signs and symptoms to report to health care provider will improve Outcome: Progressing Problem: Physical Regulation: Goal: Complications related to the disease process, condition or treatment will be avoided or minimized Outcome: Progressing Goal: Ability to maintain clinical measurements within normal limits will improve Outcome: Progressing Problem: Sensory: Goal: Ability to identify factors that increase the pain will improve Outcome: Progressing Goal: Ability to notify healthcare provider of pain before it becomes unmanageable or unbearable will improve Outcome: Progressing Goal: Pain level will decrease Outcome: Progressing Problem: Lack of Knowledge: Goal: Ability to state ways to decrease the risk of falls will improve Outcome: Progressing Problem: Safety: Goal: Will remain free from falls Outcome: Progressing Goal: Will remain free from injury from falls Outcome: Progressing Goal: Will remain free from falls and injury in home environment Outcome: Progressing Problem: Infection Risk: Goal: Will remain free from infection Outcome: Progressing Problem: Safety: Goal: Ability to remain free from injury will improve Outcome: Progressing Goal: Will remain free from falls Outcome: Progressing Problem: Skin Integrity: Goal: Risk for impaired skin integrity will decrease Outcome: Progressing * Op Note - Stephanie Castelan MD - 05/11/2021 8:34 AM CDT OPERATIVE REPORT Shavon Singh [id number] DATE OF SERVICE: 05/11/21 SURGEON: Stephanie Castelan MD SCHEDULING SPECIALIST: Rivka Aranda PGY2 PROCEDURE: Laparoscopic cholecystectomy PREOPERATIVE DIAGNOSIS: impacted gallstone POSTOPERATIVE DIAGNOSIS: impacted gallstone, acute cholecystitis ANESTHESIA: General SPECIMEN: gallbladder and contents ESTIMATED BLOOD LOSS: 20 mL INTRAOPERATIVE FLUID: per anesthesia record BLOOD PRODUCTS: none CONDITION: Stable INDICATION: Shavon Singh is a 80 y.o. female who presented with RUQ pain and an impacted gallstone. She wastaken to the OR for laparoscopic cholecystectomy. OPERATIVE FINDINGS: Impacted gallstone with gallbladder hydrops. Spillage of purulent bile during the case. Large impacted stone given to patient at the end of the case per request. Photo in Media tab. DESCRIPTION OF PROCEDURE: The patient was brought into the operating room and placed supine on the table. she underwent General anesthesia without complication. SCDs were placed and she received mynor-operative antibiotics. she was prepped and draped in standard sterile fashion. A time-out was performed according to [facility] policy. A Veress needle was used to access the LUQ at Nails's point. Pneumoperitoneum was established. A 5mm Visiport was used in the the RUQ. We confirmed safe intraabdominal entry. A 5mm port was placed lateral and a 12mm port was placed in the epigastric area. The omentum was densely adherent around the umbilicus from prior surgery and a 5mm camera port was placed just superior to the adhesions as they could not be easily taken down with the grasper. The gallbladder was tense, edematous, inflamed and distended. We aspirated 80cc of clear bile from the gallbladder in order to be able to grasp the gallbladder. The aspirate was sent for culture. Thegallbladder was grasped at the body and elevated cephalad up over the liver. There was spillage of purulent bile during the procedure. Omental adhesions were taken down off of the gallbladder. The inf undibulum of the gallbladder was retracted laterally and inferiorly. The peritoneum was opened medially and laterally. We then proceeded to dissect free the cystic duct and artery. We achieved a critical view of safety with one duct and one artery entering the gallbladder and the liver visible behind. Hemolock clips were then placed, 2 on the staying side and one on the going side, first on the duct and then one on either side of the artery. Both structures were transected. The duct was confirmed to be free of stones prior to placing the clips. We then dissected the gallbladder off of the fossa. All visible bile was suctioned from the abdomen. The gallbladder was placed in the endocatch bagand removed at the epigastric port. The fascia had to be widened at the epigastric port site in order to accommodate gallbladder removal due to a large gallstone. Hemostasis was achieved. The abdomenwas copiously irrigated until clear. The remaining ports were removed under direct visualization. The epigastric port was closed with 0-vicryl suture x 3 in a figure of eight fashion. The skin was haley sed with monocryl and dermabond applied. The patient tolerated the procedure well and was taken to the recovery room in stable condition. Sponge and instrument count were correct at the end. I was present and directly participated in the entire procedure (including opening and closing) Stephanie Castelan MD Section of Acute and Critical Care Surgery * Brief Op Note - Rivka Aranda MD - 05/11/2021 8:34 AM CDT Operative Progress Note Surgical Team: Surgeon(s) and Role: * Stephanie Castelan MD - Primary * Rivka Aranda MD - Resident - Assisting Anesthesiologist: Galdino Isaac MD ORACLE [employer] DEVELOPER: Brigid Meyers CRNA Stock Digger: Ingrid Hou RN Scrub Relief: Khurram Villar RN Scrub: Michell Hannah RN DATE OF SURGERY : 05/11/2021 Preoperative Diagnosis: Pre-op Diagnosis * Calculus of gallbladder without cholecystitis without obstruction [K80.20] Postoperative Diagnosis: Post-op Diagnosis * Calculus of gallbladder without cholecystitis without obstruction [K80.20] Procedure(s): Procedure(s) (LRB): LAPAROSCOPIC CHOLECYSTECTOMY (N/A) Operative Findings: Gallbladder hydrops upon aspiration, with small amount purulent spillage from needle site. Single cystic artery and duct clipped. Very large single gallstone noted. Estimated Blood Loss: 10 ml Intraoperative Fluids: Please see anesthetic record Specimens: ID Type Source Tests Collected by Time A : GALLBLADDER Tissue Gallbladder SURGICAL PATHOLOGY Stephanie aCstelan MD 05/11/2021 [id number] Implants: Nothing was implanted during the procedure Blood/Blood Products Transfused: 0 mls Complications: None Condition on Discharge from the operating room was stable Rivka Aranda MD Date: 05/11/2021 Time: 10:37 AM TEACHING ATTESTATION : I was present and I participated in all portions of the procedure except skin closure and remained immediately available during all remaining portions of the case. Cosigned by Stephanie Castelan MD at 05/13/2021 10:50 PM CDT * Plan of Care - Mariah Hagan RN - 05/10/2021 9:43 PM CDT Goals: Clinical Goals for the Shift: Monitor VS and Pain, Heparin Drip Management and Rest Summary: Problem: Health Behavior: Goal: Understanding of discharge needs will improve Outcome: Progressing Problem: Activity: Goal: Risk for activity intolerance will decrease Outcome: Progressing Problem: Lack of Knowledge: Goal: Knowledge of disease or condition will improve Outcome: Progressing Goal: Ability to state and carry out methods to decrease the pain will improve Outcome: Progressing Problem: Nutritional: Goal: Nutritional status will be supported Outcome: Progressing Problem: Health Behavior: Goal: Ability to state signs and symptoms to report to health care provider will improve Outcome: Progressing Problem: Sensory: Goal: Ability to identify factors that increase the pain will improve Outcome: Progressing Goal: Ability to notify healthcare provider of pain before it becomes unmanageable or unbearable will improve Outcome: Progressing Goal: Pain level will decrease Outcome: Progressing Problem: Safety: Goal: Will remain free from falls Outcome: Progressing Goal: Will remain free from injury from falls Outcome: Progressing Goal: Will remain free from falls and injury in home environment Outcome: Progressing * Plan of Care - Lele Luz RN - 05/10/2021 6:05 PM CDT Goals: Clinical Goals for the Shift: pain management, safet, orient to room/unit Summary: Pt is A&Ox4. VSS. Minimal c/o of pain/discomfort, non-pharmacological interventions utilized. IVF still running. Heparin drip started today, critical lab value called ~1700 - heparin drip stoppedand will follow orders to restart drip. Pt amb 1 assist to BR. Bg monitoring continued. Pt is on a clear liquid diet, but will be NPO @ midnight. Heparin drip (no matter aPTT value or not) will be stopped @ 0200am for OR tomorrow. Continue to monitor. * Assessment & Plan Note - Shira Devine NP - 05/10/2021 9:27 AM CDT Associated Problem(s): Type 2 diabetes mellitus (HCC) (HgbA1C 5.9) -home metformin and Glimepride -Consistent carb diet; insulin sensitive SSI * Assessment & Plan Note - Shira Devine NP - 05/10/2021 9:26 AM CDT Associated Problem(s): HTN (hypertension), benign - home Coreg and Amlodipine * Assessment & Plan Note - Shira Devine NP - 05/10/2021 9:26 AM CDT Associated Problem(s): Chronic diastolic heart failure (HCC) Home PRN lasix * Assessment & Plan Note - Shira Devine NP - 05/10/2021 9:15 AM CDT Associated Problem(s): CVA (cerebral vascular accident) (HCC) -Most likely embolic in nature. Home Eliquis 2.5 mg twice a day -Heparin gtt -Restart eliquis at home tomorrow 05/13 * Assessment & Plan Note - Shira Devine NP - 05/10/2021 9:15 AM CDT Associated Problem(s): S/P mitral valve repair (2015) -last Eliquis 05/09, started Hep gtt -Restart eliquis at home tomorrow 05/13 * Assessment & Plan Note - Shira Devine NP - 05/10/2021 9:15 AM CDT Associated Problem(s): Cholecystitis (Deleted) RUQ US- impacted stone, +/- cholecystitis -case requested for Thursday 05/11 lap nadine IPAP called * Plan of Care - Kiarra Baez RN - 05/10/2021 3:43 AM CDT Problem: Sensory: Goal: Ability to identify factors that increase the pain will improve Outcome: Progressing Problem: Safety: Goal: Will remain free from falls Outcome: Progressing Goal: Will remain free from injury from falls Outcome: Progressing Goals: Clinical Goals for the Shift: pain management, safet, orient to room/unit Summary: pain management, call light in use. * ED Re-evaluation Note - Michell Luo MD - 05/09/2021 6:52 PM STRATEGIC SOURCING MANAGER ED Re-evaluation TRANSITION OF CARE I, Michell Luo MD, am taking signout and assuming care of this patient. I have reviewedall pertinent vital signs, allergies, and history available in the chart. Summary: 80 y.o. female PMHx CVA with R-sided deficits, mitral valve insufficiency s/p repair on eliquis, HTN, HLD, T2DM, hx breast CA presenting with RLQ pain x24h. Also w nausea but no vomiting or fevers. CT with borderline GB distention and cholelithiasis without acute cholecystitis. Pending: Surgery reccs. Dispo: Per above ED Course as of 05/10/21 0748 Time: 05/09 1629 Comment: 80 year old female with CVA and right sided deficits, mitral valve insufficiency s/p repair on eliquis, breast cancer. Here with RLQ pain x 24 hours which has gradually worsened. Associated with nausea, no fevers/chills. ROS with chest pain, no orthopnea/pnd/edema. Exam with RLQ tenderness and without rebound. Labs thus far unremarkable, will add on troponin due to chest pain noted on ROS and CT abdomen/pelvis. By: Anthony Beth MD Time: 05/09 1733 Comment: IMPRESSION: ?? 1. Borderline gallbladder distention and cholelithiasis without definite evidence of acute cholecystitis. Recommend clinical correlation for symptoms of biliary colic. 2. Pancolonic diverticulosis without evidence of diverticulitis. ?? By: Eduardo Brush MD Time: 05/09 1745 Comment: Surgery will assess patient for possible cholecystitis By: Eduardo Brush MD Time: 05/09 1953 Comment: Surgery requesting RUQ US. By: Michell Luo MD Time: 05/09 2246 Value: US RUQ Comment: Borderline findings of acute cholecystitis. Still requiring IV opioids for analgesia. Willd/w surgery. By: Michell Luo MD Time: 05/09 2253 Comment: Surgery will discuss admission with patient and family. By: Michell Luo MD Time: 05/10 2303 Comment: Sign out: 80F p/w RUQ symptoms plan for admission. By: Sheridan Haney MD Final diagnoses: Abdominal pain Biliary calculus of other site without obstruction Michell Luo MD Resident 05/10/21 0748 * ED Procedure Note - Anthony Beth MD - 05/09/2021 3:31 PM STRATEGIC SOURCING MANAGER Associated Order(s): ECG 12 lead Procedure ECG 12 lead Date/Time: 05/09/2021 3:31 PM Performed by: Anthony Beth MD Authorized by: Eduardo Brush MD Quality: Tracing quality: Limited by artifact Rate: ECG rate: 66 ECG rate assessment: normal Rhythm: Rhythm: sinus rhythm Ectopy: Ectopy: none QRS: QRS axis: Left QRS intervals: Normal (QRS 118) Conduction: Conduction: normal ST segments: ST segments: Normal T waves: T waves: flattening Flattening: II, aVF and V6 Q waves: Q waves: V1 and V2 Other findings: Other findings: LVH Previous ECG: Previous ECG: Compared to current Date of previous EC02/09/2019 Comparison ECG info: Flattened t waves and Q in V1/ isolectric V2 new Similarity: Changes noted Interpretation: Interpretation: non-specific Recommended Follow-up: Recommended follow up: further workup in the ED Anthony Beth MD 05/09/21 3192 TEGIC SOURCING MANAGER documented in this encounter Plan of Treatment Not on file documented as of this encounter Procedures Procedure Name Priority Date/Time Associated Diagnosis Comments POCT GLUCOSE DEVICE Routine 05/12/2021 8 :12 AM CDT POCT GLUCOSE DEVICE Routine 05/12/2021 4 :45 AM CDT EGFR Routine 05/12/2021 4:30 AM CDT APTT STAT 05/12/2021 4:30 AM CDT CBC WITHOUT DIFFERENTIAL Routine 05/12/2021 4:30 AM CDT PHOSPHORUS Routine 05/12/2021 4:30 AM CDT MAGNESIUM Routine 05/12/2021 4:30 AM CDT COMPREHENSIVE METABOLIC PANEL Routine 05/12/2021 4:30 AM CDT POCT GLUCOSE DEVICE Routine 05/12/2021 1 :41 AM CDT POCT GLUCOSE DEVICE Routine 05/11/2021 1 0:21 PM CDT APTT STAT 05/11/2021 8:54 PM CDT POCT GLUCOSE DEVICE Routine 05/11/2021 5 :35 PM CDT POCT GLUCOSE DEVICE Routine 05/11/2021 1 0:38 AM CDT SURGICAL PATHOLOGY Routine 05/11/2021 10 :09 AM CDT Calculus of gallbladder without cholecystitis without obstruction AEROBIC AND ANAEROBIC CULTURE AND GRAM STAIN Routine 05/11/2021 8:54 AM CDT POCT GLUCOSE DEVICE Routine 05/11/2021 8 :53 AM CDT LAPAROSCOPIC CHOLECYSTECTOMY 05/11/2021 8:02 AM CDT Calculus of gallbladder without cholecystitis without obstruction POCT GLUCOSE DEVICE Routine 05/11/2021 6 :16 AM CDT EGFR Routine 05/11/2021 3:21 AM CDT APTT STAT 05/11/2021 3:21 AM CDT CBC WITHOUT DIFFERENTIAL Routine 05/11/2021 3:21 AM CDT PHOSPHORUS Routine 05/11/2021 3:21 AM CDT MAGNESIUM Routine 05/11/2021 3:21 AM CDT COMPREHENSIVE METABOLIC PANEL Routine 05/11/2021 3:21 AM CDT POCT GLUCOSE DEVICE Routine 05/11/2021 3 :10 AM CDT POCT GLUCOSE DEVICE Routine 05/10/2021 1 1:15 PM CDT POCT GLUCOSE DEVICE Routine 05/10/2021 8 :25 PM CDT POCT GLUCOSE DEVICE Routine 05/10/2021 4 :37 PM CDT CRITICAL RESULT CALLBACK HEMATOLOGY STAT 05/10/2021 2:17 PM CDT APTT STAT 05/10/2021 2:17 PM CDT POCT GLUCOSE DEVICE Routine 05/10/2021 1 2:25 PM CDT TYPE AND SCREEN Timed 05/10/2021 12:23 PM CDT POCT GLUCOSE DEVICE Routine 05/10/2021 8 :17 AM CDT CBC WITHOUT DIFFERENTIAL STAT 05/10/2021 7:13 AM CDT POCT GLUCOSE DEVICE Routine 05/10/2021 5 :28 AM CDT EGFR Routine 05/10/2021 4:44 AM CDT CBC WITHOUT DIFFERENTIAL Routine 05/10/2021 4:44 AM CDT PHOSPHORUS Routine 05/10/2021 4:44 AM CDT MAGNESIUM Routine 05/10/2021 4:44 AM CDT HEMOGLOBIN A1C Routine 05/10/2021 4:44 AM CDT LIPID PANEL Routine 05/10/2021 4:44 AM CDT COMPREHENSIVE METABOLIC PANEL Routine 05/10/2021 4:44 AM CDT POCT GLUCOSE DEVICE Routine 05/10/2021 1 2:01 AM STRATEGIC SOURCING MANAGER TROPONIN I HIGH-SENSITIVITY 4-HOUR Timed 05/09/2021 9:22 PM STRATEGIC SOURCING MANAGER US RUQ ED 05/09/2021 8:35 PM STRATEGIC SOURCING MANAGER XR CHEST PA LATERAL 2 VIEWS ED 05/09/2021 7:21 PM STRATEGIC SOURCING MANAGER INFLUENZA A/B, RSV, AND COVID-19 PCR Routine 05/09/2021 6:20 PM STRATEGIC SOURCING MANAGER TROPONIN I HIGH-SENSITIVITY 2-HOUR Timed 05/09/2021 6:20 [address]IC SOURCING MANAGER [address] ABDOMEN PELVIS W CONTRAST ED 05/09/2021 5:10 PM STRATEGIC SOURCING MANAGER POCT GLUCOSE DEVICE Routine 05/09/2021 4 :51 PM STRATEGIC SOURCING MANAGER ECG 12-LEAD Routine 05/09/2021 3:31 PM STRATEGIC SOURCING MANAGER URINALYSIS AND REFLEX TO MICROSCOPIC AND CULTURE Routine 05/09/2021 3:08 PM STRATEGIC SOURCING MANAGER URINALYSIS, MICROSCOPIC ONLY Routine 05/09/2021 3:08 PM STRATEGIC SOURCING MANAGER TROPONIN I HIGH-SENSITIVITY SERIES (BASELINE, 2HR, 4HR, 6HR) STAT 05/09/2021 3:07 PM STRATEGIC SOURCING MANAGER EGFR STAT 05/09/2021 3:07 PM STRATEGIC SOURCING MANAGER DIFFERENTIAL AUTO STAT 05/09/2021 3:0 7 PM STRATEGIC SOURCING MANAGER CBC WITH AUTO DIFFERENTIAL STAT 05/09/2021 3:07 PM STRATEGIC SOURCING MANAGER LIPASE STAT 05/09/2021 3:07 PM STRATEGIC SOURCING MANAGER COMPREHENSIVE METABOLIC PANEL STAT 05/09/2021 3:07 PM STRATEGIC SOURCING MANAGER POCT GLUCOSE DEVICE Routine 05/09/2021 1 :21 PM STRATEGIC SOURCING MANAGER documented in this encounter Results * POCT glucose (05/12/2021 8:12 AM CDT) Glucose, POC 93 70 - 199 mg/dL [facility] Blood 05/12/2021 8:12 AM CDT 05/12/2021 8:12 AM CDT us Stephanie Castelan MD LAB POCT ORDERABLES - DACIA CE Final Result [facility] Department [place] [address] * POCT glucose (05/12/2021 4:45 AM CDT) [facility] Glucose, POC 92 70 - 199 mg/dL [facility] Blood 05/12/2021 4:45 AM CDT 05/12/2021 4:45 AM CDT Sheridan Haney MD LAB POCT ORDERABLES - DEVICE Fin al Result [facility] [place] [address] * (ABNORMAL) eGFR (05/12/2021 4:30 AM CDT) [facility] eGFR 50(L) 90 - 130 mL/min/1. 73 m2 [facility] Comment: Interpretive Data Reference Interval Normal ?>/= [...] interpretive data was last reviewed 2020. Blood 05/12/2021 4:30 AM CDT 05/12/2021 4:40 AM CDT Sheridan Haney MD LAB BLOOD ORDERABLES Final Resul t Performing Organization Address [facility] Co de Phone Number [facility] [place] [address] * (ABNORMAL) aPTT (05/12/2021 4:30 AM CDT) aPTT 57(H) 27 - 37 sec [facility] Comment: Interpretive Data Therapeutic heparin range: 60.0 - 94.0 seconds. Based on correlation with therapeutic heparin activity range of 0.3-0.7 Units/mL. Current interpretive data was last revised on 2020. Blood 05/12/2021 4:30 AM CDT 05/12/2021 4:50 AM CDT Narrative [facility] - 05/12/2021 5:00 AM CDT Draw STAT PTT 6 hrs after initiation of heparin infusion, draw STAT PTT 6 hours after each dose/rate change, and every 6 hours until 2 consecutive PTTs are within therapeutic range. Once two consecutive PTT's are therapeutic (60-94.9 seconds), then draw PTT every AM until heparin is discontinued. Sheridan Haney MD LAB BLOOD ORDERABLES Final Resul t Performing Organization Address [facility] Co de Phone Number [facility] [place] [address] * Phosphorus (05/12/2021 4:30 AM CDT) Phosphorus, pl 3.0 2.3 - 4.5 mg/dL [facility] Blood 05/12/2021 4:30 AM CDT 05/12/2021 4:40 AM CDT Sheridan Haney MD LAB BLOOD ORDERABLES Final Resul t Performing Organization Address City/[facility] Co de Phone Number [facility] Department [place] [address] * Magnesium (05/12/2021 4:30 AM CDT) Magnesium 2.2 1.4 - 2.5 mg/dL [facility] Blood 05/12/2021 4:30 AM CDT 05/12/2021 4:40 AM CDT Sheridan Haney MD LAB BLOOD ORDERABLES Final Resul t Performing Organization Address [facility] de Phone Number [facility] Department [place] [address] * (ABNORMAL) Comprehensive metabolic panel (05/12/2021 4:30 AM CDT) Pathologist [facility] Sodium 139 135 - 145 mmol/L [facility] Potassium, pl 4.1 3.3 - 4.9 mmol/L [facility] Chloride 110 97 - 110 mmol/L [facility] CO2 24 22 - 32 mmol/L [facility] Anion gap 5 2 - 15 mmol/L [facility] BUN 14 8 - 25 mg/dL [facility] Creatinine 1.10 0.60 - 1.10 mg/dL [facility] Glucose 97 70 - 199 mg/dL [facility] Comment: Interpretive Data Fasting glucose >/= [...] interpretive data was last revised 2017. Calcium 7.7(L) 8.5 - 10.3 mg/dL [facility] Bilirubin, total 0.6 0.1 - 1.2 mg/dL [facility] Protein, pl 5.5(L) 6.5 - 8.5 g/dL [facility] Albumin 3.0(L) 3.5 - 5.0 g/dL [facility] Alk phos 37(L) 40 - 130 Units/L [facility] ALT 154(H) 7 - 45 Units/L [facility] Comment:Reviewed AST 254(H) 10 - 45 Units/L [facility] Comment:Reviewed Blood 05/12/2021 4:30 AM CDT 05/12/2021 4:40 AM CDT us Sheridan Haney MD LAB BLOOD ORDERABLES Final Resul t [facility] Department [place] [address] * (ABNORMAL) CBC without differential (05/12/2021 4:30 AM CDT) Pathologist [facility] WBC 9.0 3.8 - 9.9 K/cumm [facility] Hgb 10.4(L) 11.9 - 15.5 g/dL [facility] Hct 32.6(L) 35.6 - 45.5 % [facility] Plt 152 150 - 400 K/cumm [facility] MPV 11.3 9.1 - 12.3 fL [facility] RBC 3.61(L) 3.90 - 5.20 M/cumm [facility] MCV 90.3 81.3 - 96.4 fL [facility] MCH 28.8 27.1 - 33.3 pg [facility] MCHC 31.9(L) 32.3 - 35.7 g/dL [facility] RDW CV 14.4 11.1 - 14.9 % [facility] RDW SD 47.3 35.7 - 48.1 fL [facility] NRBC abs 0.00 0.00 - 0.01 K/cumm [facility] Blood 05/12/2021 4:30 AM CDT 05/12/2021 4:40 AM CDT Sheridan Haney MD LAB BLOOD ORDERABLES Final Resul t Performing Organization Address [facility] de Phone Number [facility] [place] [address] * POCT glucose (05/12/2021 1:41 AM CDT) Glucose, POC 107 70 - 199 mg/dL [facility] Blood 05/12/2021 1:41 AM CDT 05/12/2021 1:41 AM CDT Sheridan Haney MD LAB POCT ORDERABLES - DEVICE Fin al Result Performing Organization Address [facility] [place] [address] * POCT glucose (05/11/2021 10:21 PM CDT) Glucose, POC 124 70 - 199 mg/dL [facility] Blood 05/11/2021 10:2 1 PM CDT 05/11/2021 10:21 PM CDT Sheridan Haney MD LAB POCT ORDERABLES - DEVICE Fin al Result Performing Organization Address [facility] de Phone Number [facility] [address] * aPTT (05/11/2021 8:54 PM CDT) aPTT 33 27 - 37 sec [facility] Comment: Interpretive Data Therapeutic heparin range: 60.0 - 94.0 seconds. Based on correlation with therapeutic heparin activity range of 0.3-0.7 Units/mL. Current interpretive data was last revised on 2020. Blood 05/11/2021 8:54 PM CDT 05/11/2021 9:17 PM CDT Narrative [facility] - 05/11/2021 9:26 PM CDT Draw STAT PTT 6 hrs after initiation of heparin infusion, draw STAT PTT 6 hours after each dose/rate change, and every 6 hours until 2 consecutive PTTs are within therapeutic range. Once two consecutive PTT's are therapeutic (60-94.9 seconds), then draw PTT every AM until heparin is discontinued. us Sheridan Haney MD LAB BLOOD ORDERABLES Final Resul t Performing Organization Address [facility] de Phone Number [facility] [address] * POCT glucose (05/11/2021 5:35 PM CDT) Glucose, POC 151 70 - 199 mg/dL [facility] Blood 05/11/2021 5:35 PM CDT 05/11/2021 5:35 PM CDT Result [facility] Sheridan Haney MD LAB POCT ORDERABLES - DEVICE Fin al Result Performing Organization Address [facility] de Phone Number [facility] Department of [facility] [address] * POCT glucose (05/11/2021 10:38 AM CDT) Glucose, POC 152 70 - 199 mg/dL [facility] Blood 05/11/2021 10:3 8 AM CDT 05/11/2021 10:38 AM CDT Sheridan Haney MD LAB POCT ORDERABLES - DEVICE Fin al Result Performing Organization Address [facility] de Phone Number [facility] Department [place] [address] * Surgical pathology (05/11/2021 10:09 AM CDT) Tissue (Gallbladder) 05/11/2021 10:09 AM CDT Narrative PATHOLOGY [facility] - 05/14/2021 8:26 PM CDT EPIC results best viewed via link to PDF [facility] [place] [address] Note to Patients: This report may contain a detailed description of human tissue sent by a health care provider to the laboratory for pathologic evaluation. The content of this report is essential for diagnosis and may provide important critical findings. This information may be unfamiliar to patients to review without a medical professional present. It is advised that the patient review this report in the presence of a health care provider who can answer questions and explain the details. SURGICAL PATHOLOGY REPORT FINAL Patient Name: ?? SHAVON SINGH Gender: ??F : ??[id number] (Age: 80) Address: ??[address] [place] [address] Hospital #: ??[id number] Taken:05/11/2021 Received:05/11/2021 Reported: 05/14/2021 Patient Type: [facility] Inpatient ?? Service: Surgery Location: [place] [address] Physician(s): ??Stephanie Alberto M.D. Dr. Haris Lauren M.D. Rivka Aranda MD Diagnosis: Gallbladder, cholecystectomy ? - Acute on chronic cholecystitis with cholelithiasis - One benign pericystic lymph node ? fnk/05/13/2021 16:43 By this signature, I attest that the above diagnosis is based upon my personal examination of the slides(and/or other material indicated in the diagnosis). Susan Aquino MD, PHD Report Electronically Reviewed and Signed Out By ??Susan Aquino MD, PHD 05/14/2021 20:26:54 Microscopic Description and Comment: Microscopic examination substantiates the above cited diagnosis. Nicholas Naseer Denson, MBBS History: The patient is 80-year-old woman presenting with calculus of gallbladder without cholecystitis and without obstruction. ??Operative procedure: Cholecystectomy. Specimen(s) Received: A: Gallbladder Gross Description: The specimen is received in a single formalin filled container, labeled with the patient's identifiers. ? A. Labeled gallbladder is an intact gallbladder measuring 8.6 x 4.0 cm with a wall thickness of 0.3 cm. ??There is a single martinez-red lymph node measuring 0.6 cm the serosa is hemorrhagic with adhesions. ??The mucosa is martinez-red and granular with focal areas of effacement. ??There are multiple brown stone fragments all measuring less than 0.1 cm. ??Labeled: A1- resection margin, en face, lymph node and gallbladder wall. ??Jar: 1. (Ink code: Resection margin- blue) 05/11/2021 14:16 PA(s): CONNIE Caruso (ASCP) By this signature, I attest that the above diagnosis is based upon my personal examination of the slides(and/or other material). Addenda/Procedures The performance characteristics of some immunohistochemical stains, fluorescence in-situ hybridization tests and immunophenotyping by flow cytometry cited in this report (if any) were determined by the Surgical Pathology and Flow Cytometry Departments at [facility] as part of an ongoing quality control manager program and in compliance with federally mandated regulations drawn from the Clinical Laboratory Improvement Act of 1988 (CLIA '88). ??Some of these tests rely on the use of analyte specific reagents and are subject to specific labeling requirements by the US Food and Drug Administration. ??Such diagnostic tests may only be performed in a facility that is certified by the Department of Health and Human Services as a high complexity laboratory under CLIA '88. ??The FDA has determined that such clearance or approval is not necessary. ??This test is used for clinical purposes. ??It should not be regarded as investigational or for research. ??Nevertheless, federal rules concerning the medical use of analyte specific reagents require that the following disclaimer be attached to the report: This test was developed and its performance characteristics determined by the Surgical Pathology and Flow Cytometry Departments of [facility]. ??It has not been cleared or approved by the U. S. Food and Drug Administration. IMAGES AND SCANNED DOCUMENTS, IF INCLUDED, ONLY VIEWABLE IN PDF VERSION OF REPORT Stephanie Castelan MD LAB PATHOLOGY ORDERABLES F inal Result PATHOLOGY [facility] 3rd Floor [place], [place] [phone] * (ABNORMAL) Aerobic and anaerobic culture and gram stain Aspirate Gallbladder (05/11/2021 8:54 AM CDT) Direct Specimen Exam Stain: Abundant polymorphonuclear leukocytes seen. Abundant Gram Positive Cocci in pairs and chains [facility] Report Final Report: Abundant Streptococcus anginosus (.) [facility] Organism STREPTOCOCCUS ANGINOSUS [facility] Aspirate (Gallbladder) 05/11/2021 8:54 AM CDT 05/11/2021 12:04 PM CDT Narrative [facility] - 05/14/2021 2:34 PM CDT GALLBLADDER ASPIRATE Testing performed by [facility] ([phone]) Specimens submitted from normally sterile body sites will have all bacterial morphotypes identified. Specimens that contain grossly mixed will and/or are from body sites that are not normally sterile will be examined for Staphylococcus aureus, Pseudomonas aeruginosa, beta-hemolytic strep, vancomycin-resistant Enterococcus, Bacteroides, Parabacteroides, Clostridium perfringens and fungus. If any of these are isolated, the organism will be reported. Current interpretive data was last revised on 2019. Organism Antibiotic Method Susceptibility Streptococcus anginosus Penicillin (VICKIE) (VICKIE) INTERPR ETATION Susceptible Streptococcus anginosus Ceftriaxone (VICKIE) (VICKIE) INTERP RETATION Susceptible Streptococcus anginosus Clindamycin (VICKIE) INTERPRETAT ION Susceptible Streptococcus anginosus Erythromycin (VICKIE) INTERPRETAT ION Susceptible Streptococcus anginosus Levofloxacin (VICKIE) INTERPRETAT ION Susceptible Streptococcus anginosus Vancomycin (VICKIE) INTERPRETAT ION Susceptible Stephanie Castelan MD LAB MICROBIOLOGY - GENERAL ORDERABLES Final Result [facility] Department [place] [address] * POCT glucose (05/11/2021 8:53 AM CDT) Glucose, POC 122 70 - 199 mg/dL [facility] Blood 05/11/2021 8:53 AM CDT 05/11/2021 8:53 AM CDT Sheridan Haney MD LAB POCT ORDERABLES - DEVICE Fin al Result Performing Organization Address [facility] de Phone Number [facility] Department [place] [address] * POCT glucose (05/11/2021 6:16 AM CDT) Pathologist [facility] Glucose, POC 150 70 - 199 mg/dL [facility] Blood 05/11/2021 6:16 AM CDT 05/11/2021 6:16 AM CDT Sheridan Haney MD LAB POCT ORDERABLES - DEVICE Fin al Result Performing Organization Address [facility] de Phone Number [facility] [address] * (ABNORMAL) eGFR (05/11/2021 3:21 AM CDT) Pathologist [facility] eGFR 62(L) 90 - 130 mL/min/1. 73 m2 [facility] Comment: Interpretive Data Reference Interval Normal ?>/= [...] interpretive data was last reviewed 2020. Blood 05/11/2021 3:21 AM CDT 05/11/2021 5:19 AM CDT us Michell Lucia MD LAB BLOOD ORDERABLES Miranda l Result Performing Organization Address [facility] Co de Phone Number [facility] [place] [address] * aPTT (05/11/2021 3:21 AM CDT) aPTT 36 27 - 37 sec [facility] Comment: Interpretive Data Therapeutic heparin range: 60.0 - 94.0 seconds. Based on correlation with therapeutic heparin activity range of 0.3-0.7 Units/mL. Current interpretive data was last revised on 2020. Blood 05/11/2021 3:21 AM CDT 05/11/2021 5:27 AM CDT Narrative [facility] - 05/11/2021 5:35 AM CDT Draw STAT PTT 6 hrs after initiation of heparin infusion, draw STAT PTT 6 hours after each dose/rate change, and every 6 hours until 2 consecutive PTTs are within therapeutic range. Once two consecutive PTT's are therapeutic (60-94.9 seconds), then draw PTT every AM until heparin is discontinued. us Sheridan Haney MD LAB BLOOD ORDERABLES Final Resul t Performing Organization Address [facility]/ZIP Co de Phone Number [facility] [place] [address] * Phosphorus (05/11/2021 3:21 AM CDT) Pathologist [facility] Phosphorus, pl 2.3 2.3 - 4.5 mg/dL [facility] Blood 05/11/2021 3:21 AM CDT 05/11/2021 5:19 AM CDT Sheridan Haney MD LAB BLOOD ORDERABLES Final Resul t Performing Organization Address City/[facility] Co de Phone Number [facility] Department [place] [address] * Magnesium (05/11/2021 3:21 AM CDT) [facility] Magnesium 1.7 1.4 - 2.5 mg/dL [facility] Blood 05/11/2021 3:21 AM CDT 05/11/2021 5:19 AM CDT Sheridan Haney MD LAB BLOOD ORDERABLES Final Resul t Performing Organization Address City/[facility] de Phone Number [facility] Department [place] [address] * (ABNORMAL) Comprehensive metabolic panel (05/11/2021 3:21 AM CDT) [facility] Sodium 137 135 - 145 mmol/L [facility] Potassium, pl 4.2 3.3 - 4.9 mmol/L [facility] Chloride 108 97 - 110 mmol/L [facility] CO2 21(L) 22 - 32 mmol/L [facility] Anion gap 8 2 - 15 mmol/L [facility] BUN 13 8 - 25 mg/dL [facility] Creatinine 0.92 0.60 - 1.10 mg/dL [facility] Glucose 160 70 - 199 mg/dL [facility] Comment: Interpretive Data Fasting glucose >/= [...] interpretive data was last revised 2017. Calcium 8.4(L) 8.5 - 10.3 mg/dL [facility] Bilirubin, total 0.8 0.1 - 1.2 mg/dL [facility] Protein, pl 6.7 6.5 - 8.5 g/dL [facility] Albumin 3.7 3.5 - 5.0 g/dL [facility] Alk phos 41 40 - 130 Units/L [facility] ALT 33 7 - 45 Units/L [facility] AST 59(H) 10 - 45 Units/L [facility] Blood 05/11/2021 3:21 AM CDT 05/11/2021 5:19 AM CDT us Sheridan Haney MD LAB BLOOD ORDERABLES Final Resul t [facility] Department [place] [address] * (ABNORMAL) CBC without differential (05/11/2021 3:21 AM CDT) Pathologist [facility] WBC 11.7(H) 3.8 - 9.9 K/cumm [facility] Hgb 12.2 11.9 - 15.5 g/dL [facility] Hct 38.7 35.6 - 45.5 % [facility] Plt 182 150 - 400 K/cumm [facility] MPV 11.7 9.1 - 12.3 fL [facility] RBC 4.28 3.90 - 5.20 M/cumm [facility] MCV 90.4 81.3 - 96.4 fL [facility] MCH 28.5 27.1 - 33.3 pg [facility] MCHC 31.5(L) 32.3 - 35.7 g/dL [facility] RDW CV 14.1 11.1 - 14.9 % [facility] RDW SD 46.8 35.7 - 48.1 fL [facility] NRBC abs 0.00 0.00 - 0.01 K/cumm [facility] Blood 05/11/2021 3:21 AM CDT 05/11/2021 5:19 AM CDT Sheridan Haney MD LAB BLOOD ORDERABLES Final Resul t Performing Organization Address [facility] Co de Phone Number [facility] Department [place] [address] * POCT glucose (05/11/2021 3:10 AM CDT) Glucose, POC 146 70 - 199 mg/dL [facility] Blood 05/11/2021 3:10 AM CDT 05/11/2021 3:10 AM CDT Sheridan Haney MD LAB POCT ORDERABLES - DEVICE Fin al Result Performing Organization Address [facility] Co de Phone Number [facility] Department [place] [address] * POCT glucose (05/10/2021 11:15 PM CDT) Glucose, POC 168 70 - 199 mg/dL [facility] Blood 05/10/2021 11:1 5 PM CDT 05/10/2021 11:15 PM CDT Sheridan Haney MD LAB POCT ORDERABLES - DEVICE Fin al Result Performing Organization Address [facility] Co de Phone Number [facility] Department [place] [address] * (ABNORMAL) POCT glucose (05/10/2021 8:25 PM CDT) Glucose, POC 201(H) 70 - 199 mg/dL [facility] Blood 05/10/2021 8:25 PM CDT 05/10/2021 8:25 PM CDT us Sheridan Haney MD LAB POCT ORDERABLES - DEVICE Fin al Result Performing Organization Address City/[facility]/ZIP Co de Phone Number [facility] [place] [address] * (ABNORMAL) POCT glucose (05/10/2021 4:37 PM CDT) Glucose, POC 221(H) 70 - 199 mg/dL [facility] Blood 05/10/2021 4:37 PM CDT 05/10/2021 4:37 PM CDT Sheridan Haney MD LAB POCT ORDERABLES - DEVICE Fin al Result Performing Organization Address [facility]/ZIP Co de Phone Number [facility] [place] [address] * Critical Result Callback Hematology (05/10/2021 2:17 PM CDT) Date Notified [id number] [facility] Time Notified 1718 [facility] TestName aPTT [facility] Called/Read Back Lele [facility] Credentials RN [facility] Called By omar [facility] Blood 05/10/2021 2:17 PM CDT 05/10/2021 4:49 PM CDT us Shira Devine NP LAB BLOOD ORDERABLES Final Result [facility] [place] [address] * (ABNORMAL) aPTT (05/10/2021 2:17 PM CDT) [facility] aPTT >150(C) 27 - 37 sec [facility] Comment: No clot detected in sample Repeated and verified Interpretive Data Therapeutic heparin range:60.0 - 94.0 sec based on correlation with therapeutic heparin activity range of 0.3 -0.7 Units/mL. Current interpretive data was last revised on 2011. Blood 05/10/2021 2:17 PM CDT 05/10/2021 4:45 PM CDT Narrative [facility] - 05/10/2021 5:17 PM CDT Draw STAT PTT 6 hrs after initiation of heparin infusion, draw STAT PTT 6 hours after each dose/rate change, and every 6 hours until 2 consecutive PTTs are within therapeutic range. Once two consecutive PTT's are therapeutic (60-94.9 seconds), then draw PTT every AM until heparin is discontinued. Sheridan Haney MD LAB BLOOD ORDERABLES Final Resul t Performing Organization Address City/[facility]/ZIP Co de Phone Number [facility] Department [place] [address] * (ABNORMAL) POCT glucose (05/10/2021 12:25 PM CDT) [facility] Glucose, POC 209(H) 70 - 199 mg/dL [facility] Blood 05/10/2021 12:2 5 PM CDT 05/10/2021 12:25 PM CDT Sheridan Haney MD LAB POCT ORDERABLES - DEVICE Fin al Result Performing Organization Address City/[facility]/ZIP Co de Phone Number [facility] Department [place] [address] * Type and screen (05/10/2021 12:23 PM CDT) [facility] Ramón, indirect Negative [facility] ABO Rh O Negative [facility] Blood 05/10/2021 12:2 3 PM CDT 05/10/2021 2:28 PM CDT Narrative [facility] - 05/10/2021 3:28 PM CDT Has the patient had Daratumumab or Isatuximab in the past 6 months?->Unknown Shira Devine NP LAB BLOOD BANK TEST ORDERA BLES Final Result Performing Organization Address City/[facility]/ZIP Co de Phone Number [facility] Department [place] [address] * POCT glucose (05/10/2021 8:17 AM CDT) [facility] Glucose, POC 137 70 - 199 mg/dL [facility] Blood 05/10/2021 8:17 AM CDT 05/10/2021 8:17 AM CDT Sheridan Haney MD LAB POCT ORDERABLES - DEVICE Fin al Result Performing Organization Address City/[facility] Co de Phone Number [facility] Department [place] [address] * (ABNORMAL) CBC without differential (05/10/2021 7:13 AM CDT) [facility] WBC 9.0 3.8 - 9.9 K/cumm [facility] Hgb 11.6(L) 11.9 - 15.5 g/dL [facility] Hct 36.0 35.6 - 45.5 % [facility] Plt 173 150 - 400 K/cumm [facility] MPV 12.0 9.1 - 12.3 fL [facility] RBC 4.02 3.90 - 5.20 M/cumm [facility] MCV 89.6 81.3 - 96.4 fL [facility] MCH 28.9 27.1 - 33.3 pg [facility] MCHC 32.2(L) 32.3 - 35.7 g/dL [facility] RDW CV 14.2 11.1 - 14.9 % [facility] RDW SD 46.7 35.7 - 48.1 fL [facility] NRBC abs 0.00 0.00 - 0.01 K/cumm [facility] Blood 05/10/2021 7:13 AM CDT 05/10/2021 9:53 AM CDT Narrative [facility] - 05/10/2021 10:00 AM CDT Baseline prior to heparin initiation Shira Devine NP LAB BLOOD ORDERABLES Final Result Performing Organization Address [facility] Co de Phone Number [facility] Department [place] [address] * POCT glucose (05/10/2021 5:28 AM CDT) Glucose, POC 158 70 - 199 mg/dL [facility] Blood 05/10/2021 5:28 AM CDT 05/10/2021 5:28 AM CDT Sheridan Haney MD LAB POCT ORDERABLES - DEVICE Fin al Result Performing Organization Address [facility] de Phone Number [facility] Department [place] [address] * Lipid panel (05/10/2021 4:44 AM CDT) Cholesterol 105 30 - 199 mg/dL [facility] Comment: Interpretive Data Ages < or [...] Data was last revised on 2017. Triglycerides 65 <=149 mg/dL [facility] Comment: Interpretive Data Ages < or [...] Data was last revised on 2017. HDL 46 >=40 mg/dL [facility] Comment: Interpretive Data Ages < or [...] was last revised on 2017. LDL, calculated 46 <=129 mg/dL [facility] Comment: Interpretive Data Ages < [...] was last revised on 2017. Non-HDL Cholesterol 59 mg/dL [facility] Comment: Interpretive Data Ages < [...] was last revised on 2017. Chol/HDL ratio 2 [facility] Blood 05/10/2021 4:44 AM CDT 05/10/2021 5:33 AM CDT Narrative [facility] - 05/10/2021 8:15 AM CDT reflex us Sheridan Haney MD LAB BLOOD ORDERABLES Final Resul t [facility] Department [place] [address] * (ABNORMAL) Hemoglobin A1c (05/10/2021 4:44 AM CDT) Hgb A1C 5.9(H) 4.0 - 5.6 % [facility] Estimated Average Glucose 123 mg/dL [facility] Comment: The ADA recommends reporting an estimated Average Glucose (eAG) with all Hemoglobin A1c results using the equation derived from a study of 507 normal and diabetic adults. ??Minority populations were underrepresented and children were not included. ?? (Diabetes Care 2020; 43(S1): S66-S76). ??The eAG is not equivalent to a fasting glucose. Blood 05/10/2021 4:44 AM CDT 05/10/2021 5:37 AM CDT Narrative [facility] - 05/10/2021 8:01 AM CDT reflex us Sheridan Haney MD LAB BLOOD ORDERABLES Final Resul t [facility] Department [place] [address] * (ABNORMAL) eGFR (05/10/2021 4:44 AM CDT) eGFR 64(L) 90 - 130 mL/min/1. 73 m2 [facility] Comment: Interpretive Data Reference Interval Normal ?>/= [...] interpretive data was last reviewed 2020. Blood 05/10/2021 4:44 AM CDT 05/10/2021 5:33 AM CDT us Michell Lucia MD LAB BLOOD ORDERABLES Miranda l Result Performing Organization Address City/[facility]/ZIP Co de Phone Number [facility] [place] [address] * Phosphorus (05/10/2021 4:44 AM CDT) Phosphorus, pl 3.3 2.3 - 4.5 mg/dL [facility] Blood 05/10/2021 4:44 AM CDT 05/10/2021 5:33 AM CDT us Sheridan Haney MD LAB BLOOD ORDERABLES Final Resul t Performing Organization Address [facility] Co de Phone Number [facility] Department of [facility] [address] * Magnesium (05/10/2021 4:44 AM CDT) Magnesium 1.7 1.4 - 2.5 mg/dL [facility] Blood 05/10/2021 4:44 AM CDT 05/10/2021 5:33 AM CDT Sheridan Haney MD LAB BLOOD ORDERABLES Final Resul t Performing Organization Address [facility] Co de Phone Number [facility] [place] [address] * Comprehensive metabolic panel (05/10/2021 4:44 AM CDT) Sodium 140 135 - 145 mmol/L [facility] Potassium, pl 4.1 3.3 - 4.9 mmol/L [facility] Comment:Hemolyzed; Potassium value may be falsely elevated by as much as 0.3-0.5 mmol/L. Suggest redraw and reanalysis. Chloride 109 97 - 110 mmol/L [facility] CO2 22 22 - 32 mmol/L [facility] Anion gap 9 2 - 15 mmol/L [facility] BUN 20 8 - 25 mg/dL [facility] Creatinine 0.90 0.60 - 1.10 mg/dL [facility] Glucose 127 70 - 199 mg/dL [facility] Comment: Interpretive Data Fasting glucose >/= [...] interpretive data was last revised 2017. Calcium 8.7 8.5 - 10.3 mg/dL [facility] Bilirubin, total 0.6 0.1 - 1.2 mg/dL [facility] Protein, pl 6.9 6.5 - 8.5 g/dL [facility] Albumin 3.8 3.5 - 5.0 g/dL [facility] Alk phos 41 40 - 130 Units/L [facility] ALT 19 7 - 45 Units/L [facility] AST 36 10 - 45 Units/L [facility] Comment:Hemolyzed; result ma y be falsely elevated Blood 05/10/2021 4:44 AM CDT 05/10/2021 5:33 AM CDT us Sheridan Haney MD LAB BLOOD ORDERABLES Final Resul t [facility] Department [place] [address] * (ABNORMAL) CBC without differential (05/10/2021 4:44 AM CDT) WBC 9.7 3.8 - 9.9 K/cumm [facility] Hgb 11.9 11.9 - 15.5 g/dL [facility] Hct 37.3 35.6 - 45.5 % [facility] Plt 182 150 - 400 K/cumm [facility] MPV 12.1 9.1 - 12.3 fL [facility] RBC 4.12 3.90 - 5.20 M/cumm [facility] MCV 90.5 81.3 - 96.4 fL [facility] MCH 28.9 27.1 - 33.3 pg [facility] MCHC 31.9(L) 32.3 - 35.7 g/dL [facility] RDW CV 14.2 11.1 - 14.9 % [facility] RDW SD 46.5 35.7 - 48.1 fL [facility] NRBC abs 0.00 0.00 - 0.01 K/cumm [facility] Blood 05/10/2021 4:44 AM CDT 05/10/2021 5:33 AM CDT us Sheridan Haney MD LAB BLOOD ORDERABLES Final Resul t Performing Organization Address City/[facility]/ZIP Co de Phone Number [facility] [place] [address] * POCT glucose (05/10/2021 12:01 AM STRATEGIC SOURCING MANAGER) Pathologist [facility] Glucose, POC 122 70 - 199 mg/dL [facility] Blood 05/10/2021 12:0 1 AM STRATEGIC SOURCING MANAGER 05/10/2021 12:01 AM STRATEGIC SOURCING MANAGER us Notinfile Unknown LAB POCT ORDERABLES - DEVICE F inal Result Performing Organization Address City/[facility]/ZIP Co de Phone Number [facility] Department [place] [address] * Troponin I high-sensitivity 4-hour (05/09/2021 9:22 PM STRATEGIC SOURCING MANAGER) Trop I hs 4 <=17 ng/L [facility] Comment: Interpretive Data For further hscTnI resources including the diagnostic algorithm and an aid in interpretation, copy and paste this link: https://bjhlab.testcatalog.org/show/[email or web address]-1 Current Interpretive Data last revised 2019. Trop I hs delta See Comment ng/L [facility] Comment:Inappropriate collec tion time to report a delta. Trop I hs pct delta See Comment % [facility] Comment:Inappropriate collec tion time to report a delta. Trop I hs interp See Comment [facility] Comment:Inappropriate collec tion time to report a delta. Blood 05/09/2021 9:22 PM STRATEGIC SOURCING MANAGER 05/09/2021 9:37 PM STRATEGIC SOURCING MANAGER us Eduardo Brush MD LAB BLOOD ORDERABLES Final R esult [facility] Department [place] [address] * US RUQ (05/09/2021 8:35 PM STRATEGIC SOURCING MANAGER) Anatomical Region Laterality Modality Abdomen N/A Ultrasound 05/09/2021 9:58 PM STRATEGIC SOURCING MANAGER Impressions 05/10/2021 11:50 AM CDT Equivocal findings for acute calculus cholecystitis characterized by borderline gallbladder distention, borderline wall thickening and, impacted stone within the gallbladder neck with associated biliary sludge. Evaluation of sonographic Silva sign is precluded by premedication with opioid analgesia. Dictated by: Akira Granda The radiology attending physician has personally reviewed this study, and had reviewed and/or edited this written report and agrees with it. Electronically signed by: Ashley Bauman M.D. Narrative 05/10/2021 11:50 AM CDT EXAMINATION: ??LIMITED ABDOMINAL SONOGRAM HISTORY: ??80-year-old woman presenting with intermittent abdominal pain and evidence of cholelithiasis on recent CT. COMPARISON: ??Contemporaneous CT dated 05/09/2021. FINDINGS: ?? Gallbladder: The gallbladder is borderline distended. There are stones and sludge within the gallbladder. A large gallstone is impacted within the neck that does not change position with standing or proning maneuvers. There is gallbladder wall thickening measuring up to 5 mm. Common tail artifact is identified arising from the anterior wall the gallbladder compatible with adenomyomatosis. No pericholecystic fluid. Evaluation of sonographic Silva sign is precluded by premedication with opioid analgesia. Bile Duct: There is minimal intrahepatic bile duct dilatation. The diameter of the common duct is 5 mm in the proximal segment and 4 mm in the mid segment. The distal common bile duct is obscured by overlying bowel gas. Right Kidney: There is no hydronephrosis in the visualized portions of the right kidney. Procedure Note Ashley Bauman MD - 05/10/2021 EXAMINATION: LIMITED ABDOMINAL SONOGRAM HISTORY: 80-year-old woman presenting with intermittent abdominal pain and evidence of cholelithiasis on recent CT. COMPARISON: Contemporaneous CT dated 05/09/2021. FINDINGS: Gallbladder: The gallbladder is borderline distended. There are stones and sludge within the gallbladder. A large gallstone is impacted within the neck that does not change position with standing or proning maneuvers. There is gallbladder wall thickening measuring up to 5 mm. Common tail artifact is identified arising from the anterior wall the gallbladder compatible with adenomyomatosis. No pericholecystic fluid. Evaluation of sonographic Silva sign is precluded by premedication with opioid analgesia. Bile Duct: There is minimal intrahepatic bile duct dilatation. The diameter of the common duct is 5 mm in the proximal segment and 4 mm in the mid segment. The distal common bile duct is obscured by overlying bowel gas. Right Kidney: There is no hydronephrosis in the visualized portions of the right kidney. IMPRESSION: Equivocal findings for acute calculus cholecystitis characterized by borderline gallbladder distention, borderline wall thickening and, impacted stone within the gallbladder neck with associated biliary sludge. Evaluation of sonographic Silva sign is precluded by premedication with opioid analgesia. Dictated by: Akira Granda The radiology attending physician has personally reviewed this study, and had reviewed and/or edited this written report and agrees with it. Electronically signed by: Ashley Bauman M.D. us Michell Luo MD IMG US PROCEDURES Miranda l Result * XR Chest Pa Lateral 2 Views (05/09/2021 7:21 PM STRATEGIC SOURCING MANAGER) Anatomical Region Laterality Modality Body, Chest N/A Computed Radiogr aphy 05/09/2021 7:25 PM STRATEGIC SOURCING MANAGER Impressions 05/09/2021 7:30 PM STRATEGIC SOURCING MANAGER Comparison is made to prior chest radiograph dated 03/08/2016. Median sternotomy wires as well as tricuspid and mitral valve prostheses are unchanged. Surgical clips project over the left hemithorax. Mild bibasilar atelectasis. No focal pneumonic consolidation. No pneumothorax. Heart size and mediastinal contours are stable. Compared with prior exam, there are multiple lower thoracic compression deformities with kyphoplasty changes. Dictated by: Pool Alarcon M.D. The radiology attending physician has personally reviewed this study, and had reviewed and/or edited this written report and agrees with it. Electronically signed by: Charly Quintanilla M.D. Narrative 05/09/2021 7:30 PM STRATEGIC SOURCING MANAGER EXAMINATION: XR CHEST PA LATERAL 2 VIEWS HISTORY: 80 years-old Female with chest pain. Procedure Note Charly Quintanilla MD - 05/09/2021 EXAMINATION: XR CHEST PA LATERAL 2 VIEWS HISTORY: 80 years-old Female with chest pain. IMPRESSION: Comparison is made to prior chest radiograph dated 03/08/2016. Median sternotomy wires as well as tricuspid and mitral valve prostheses are unchanged. Surgical clips project over the left hemithorax. Mild bibasilar atelectasis. No focal pneumonic consolidation. No pneumothorax. Heart size and mediastinal contours are stable. Compared with prior exam, there are multiple lower thoracic compression deformities with kyphoplasty changes. Dictated by: Pool Alarcon M.D. The radiology attending physician has personally reviewed this study, and had reviewed and/or edited this written report and agrees with it. Electronically signed by: Charly Quintanilla M.D. us Eduardo Brush MD IMG XR PROCEDURES Final Resu lt * Influenza A/B, RSV, and COVID-19 PCR Nasopharyngeal (05/09/2021 6:20 PM STRATEGIC SOURCING MANAGER) COVID-19 RNA Negative Negative [facility] Influenza A RNA Negative Negative [facility] Influenza B RNA Negative Negative [facility] RSV RNA Negative Negative [facility] Comment: Interpretive data: Testing performed by [facility] ([phone]). This test is performed using the [employer] Xpert Xpress CoV-2/Flu/RSV plus assay. This is a multiplex, real-time reverse transcriptase PCR assay intended for the qualitative detection of nucleic acid from SARS-CoV-2, influenza A, influenza B, and respiratory syncytial virus. This assay has been reviewed by the FDA for Emergency Use Authorization (EUA). The performance characteristics have been verified by the [facility]. Results must be considered in the clinical context, and a negative result does not rule out infection. Interpretive Data last revised 2021. First COVID-19 test? No [facility] Employeed in healthcare? No [facility] status? No [facility] Group care resident? No [facility] Hospitalized? Yes [facility] Is patient in ICU? No [facility] Symptomatic as defined by CDC? No [facility] Nasopharyngeal 05/09/2021 6: 20 PM STRATEGIC SOURCING MANAGER 05/09/2021 6:53 PM STRATEGIC SOURCING MANAGER Narrative [facility] - 05/09/2021 7:39 PM STRATEGIC SOURCING MANAGER Reason for testing?->Bed placement or semi-private room Known exposure to confirmed or suspected COVID-19 case?->No Eduardo Brush MD LAB MICROBIOLOGY - GENERAL O RDERABLES Final Result [facility] Department [place] [address] * Troponin I high-sensitivity 2-hour (05/09/2021 6:20 PM STRATEGIC SOURCING MANAGER) Trop I hs 4 <=17 ng/L [facility] Comment: Interpretive Data For further hscTnI resources including the diagnostic algorithm and an aid in interpretation, copy and paste this link: https://bjhlab.testcatalog.org/show/hsTrop-[email or web address] Current Interpretive Data last revised 2019. Trop I hs delta See Comment ng/L [facility] Comment:Inappropriate collec tion time to report a delta. Trop I hs pct delta See Comment % [facility] Comment:Inappropriate collec tion time to report a delta. Trop I hs interp See Comment [facility] Comment:Inappropriate collec tion time to report a delta. Blood 05/09/2021 6:20 PM STRATEGIC SOURCING MANAGER 05/09/2021 6:31 PM STRATEGIC SOURCING MANAGER us Eduardo Brush MD LAB BLOOD ORDERABLES Final R esult [facility] Department [place] [address] * CT Abdomen Pelvis W Contrast (05/09/2021 5:10 PM STRATEGIC SOURCING MANAGER) Anatomical Region Laterality Modality Body N/A Computed Tomogra phy 05/09/2021 5:33 PM STRATEGIC SOURCING MANAGER Impressions 05/09/2021 5:51 PM STRATEGIC SOURCING MANAGER 1. Borderline gallbladder distention and cholelithiasis without definite evidence of acute cholecystitis. Recommend clinical correlation for symptoms of biliary colic. 2. Pancolonic diverticulosis without evidence of diverticulitis. Dictated by: Akira Granda The radiology attending physician has personally reviewed this study, and had reviewed and/or edited this written report and agrees with it. Electronically signed by: Charly Quintanilla M.D. Narrative 05/09/2021 5:51 PM STRATEGIC SOURCING MANAGER EXAMINATION: ??Computed tomography of the abdomen and pelvis with intravenous contrast HISTORY: 80-year-old woman presenting with acute right lower quadrant abdominal pain. TECHNIQUE: ??Transaxial computed tomographic images of the abdomen and pelvis were obtained with intravenous contrast according to the standard protocol after the uneventful administration of 94 mL Opti-Ray 350 intravenous contrast. COMPARISON: None available. FINDINGS: Evaluation of the lung bases is mildly limited by motion. Minimal right basilar dependent subsegmental atelectasis. No consolidation or pleural effusion visualized lung bases. The heart size is normal without pericardial effusion. Mitral and tricuspid valve prostheses are identified. The liver, adrenal glands, pancreas, and spleen are normal. There is borderline distention of the gallbladder measuring 10 cm in maximal long axis dimension when measured using multiplanar reformatting. No definite evidence of mild wall thickening or pericholecystic inflammatory. A large gallstone is present in the gallbladder neck. Long segment prominence of the common bile duct is identified a smoothly tapers to the ampulla. No intrahepatic bile duct dilation. The kidneys symmetrically enhance. Multifocal cortical scarring is noted throughout both kidneys. No hydronephrosis or nephrolithiasis. The urinary bladder is normal. The uterus is surgically absent. Postsurgical changes of bilateral pelvic lymph node dissection. No suspicious adnexal lesion. The small bowel is normal in course and caliber without evidence of abnormal wall thickening or obstruction. The appendix is normal. Pancolonic diverticulosis, most advanced and marked involving the sigmoid colon. No evidence of diverticulitis. No organized intra-abdominal fluid collection. No pneumoperitoneum or ascites. Scattered calcified atherosclerosis of a nonaneurysmal abdominal aorta. The mesenteric vasculature is patent. No suspicious abdominal or pelvic lymphadenopathy. A left femoral intertrochanteric sclerotic lesion centered represent a bone island (series: 2, image: 187). ??Old T12 and L1 vertebral body compression fractures with vertebral augmentation change. Mild grade 1 anterolisthesis of L4 on L5. Multilevel lumbar spondylosis. No suspicious lytic or sclerotic osseous lesion. Procedure Note Charly Quintanilla MD - 05/09/2021 EXAMINATION: Computed tomography of the abdomen and pelvis with intravenous contrast HISTORY: 80-year-old woman presenting with acute right lower quadrant abdominal pain. TECHNIQUE: Transaxial computed tomographic images of the abdomen and pelvis were obtained with intravenous contrast according to the standard protocol after the uneventful administration of 94 mL Opti-Ray 350 intravenous contrast. COMPARISON: None available. FINDINGS: Evaluation of the lung bases is mildly limited by motion. Minimal right basilar dependent subsegmental atelectasis. No consolidation or pleural effusion visualized lung bases. The heart size is normal without pericardial effusion. Mitral and tricuspid valve prostheses are identified. The liver, adrenal glands, pancreas, and spleen are normal. There is borderline distention of the gallbladder measuring 10 cm in maximal long axis dimension when measured using multiplanar reformatting. No definite evidence of mild wall thickening or pericholecystic inflammatory. A large gallstone is present in the gallbladder neck. Long segment prominence of the common bile duct is identified a smoothly tapers to the ampulla. No intrahepatic bile duct dilation. The kidneys symmetrically enhance. Multifocal cortical scarring is noted throughout both kidneys. No hydronephrosis or nephrolithiasis. The urinary bladder is normal. The uterus is surgically absent. Postsurgical changes of bilateral pelvic lymph node dissection. No suspicious adnexal lesion. The small bowel is normal in course and caliber without evidence of abnormal wall thickening or obstruction. The appendix is normal. Pancolonic diverticulosis, most advanced and marked involving the sigmoid colon. No evidence of diverticulitis. No organized intra-abdominal fluid collection. No pneumoperitoneum or ascites. Scattered calcified atherosclerosis of a nonaneurysmal abdominal aorta. The mesenteric vasculature is patent. No suspicious abdominal or pelvic lymphadenopathy. A left femoral intertrochanteric sclerotic lesion centered represent a bone island (series: 2, image: 187). Old T12 and L1 vertebral body compression fractures with vertebral augmentation change. Mild grade 1 anterolisthesis of L4 on L5. Multilevel lumbar spondylosis. No suspicious lytic or sclerotic osseous lesion. IMPRESSION: 1. Borderline gallbladder distention and cholelithiasis without definite evidence of acute cholecystitis. Recommend clinical correlation for symptoms of biliary colic. 2. Pancolonic diverticulosis without evidence of diverticulitis. Dictated by: Akira Granda The radiology attending physician has personally reviewed this study, and had reviewed and/or edited this written report and agrees with it. Electronically signed by: Charly Quintanilla M.D. us Eduardo Brush MD IMG CT PROCEDURES Final Resu lt * POCT glucose (05/09/2021 4:51 PM STRATEGIC SOURCING MANAGER) Glucose, POC 122 70 - 199 mg/dL [facility] Glucose comment 1 Glu2: EDD/ Notified [facility] Blood 05/09/2021 4:51 PM STRATEGIC SOURCING MANAGER 05/09/2021 4:51 PM STRATEGIC SOURCING MANAGER us Notinfile Unknown LAB POCT ORDERABLES - DEVICE F inal Result [facility] Department [place] [address] * ECG 12-LEAD (05/09/2021 3:31 PM STRATEGIC SOURCING MANAGER) Narrative [facility] - 05/09/2021 3:31 PM STRATEGIC SOURCING MANAGER Anthony Beth MD ? 05/09/2021 ??3:35 PM ECG 12 lead Date/Time: 05/09/2021 3:31 PM Performed by: Anthony Beth MD Authorized by: Eduardo Brush MD Quality: ??Tracing quality: ??Limited by artifact Rate: ??ECG rate: ??66 ??ECG rate assessment: normal ?? Rhythm: ??Rhythm: sinus rhythm ?? Ectopy: ??Ectopy: none ?? QRS: ??QRS axis: ??Left ??QRS intervals: ??Normal (QRS 118) Conduction: ??Conduction: normal ?? ST segments: ??ST segments: ??Normal T waves: ??T waves: flattening ?Flattening: ??II, aVF and V6 Q waves: ??Q waves: ??V1 and V2 Other findings: ??Other findings: LVH ?? Previous ECG: ??Previous ECG: ??Compared to current ??Date of previous ECG: ??02/09/2019 ??Comparison ECG info: ??Flattened t waves and Q in V1/ isolectric V2 new ??Similarity: ??Changes noted Interpretation: ??Interpretation: non-specific ?? Recommended Follow-up: ??Recommended follow up: further workup in the ED ?? Procedure Note Anthony Beth MD - 05/09/2021 3:31 PM CST Procedure ECG 12 lead Date/Time: 05/09/2021 3:31 PM Performed by: Anthony Beth MD Authorized by: Eduardo Brush MD Quality: Tracing quality: Limited by artifact Rate: ECG rate: 66 ECG rate assessment: normal Rhythm: Rhythm: sinus rhythm Ectopy: Ectopy: none QRS: QRS axis: Left QRS intervals: Normal (QRS 118) Conduction: Conduction: normal ST segments: ST segments: Normal T waves: T waves: flattening Flattening: II, aVF and V6 Q waves: Q waves: V1 and V2 Other findings: Other findings: LVH Previous ECG: Previous ECG: Compared to current Date of previous EC02/09/2019 Comparison ECG info: Flattened t waves and Q in V1/ isolectric V2 new Similarity: Changes noted Interpretation: Interpretation: non-specific Recommended Follow-up: Recommended follow up: further workup in the ED Anthony Beth MD 05/09/21 1535 us Eduardo Brush MD ECG ORDERABLES Final Result Performing Organization Address [facility] Co de Phone Number [facility] * (ABNORMAL) Urinalysis, microscopic only (05/09/2021 3:08 PM STRATEGIC SOURCING MANAGER) WBC, ur 0-5 0 - 5 /HPF [facility] RBC, ur 0-2 0 - 2 /HPF [facility] Epithelial cells, squamous, ur 1-5 0 - 5 /HPF [facility] Mucous, ur Present(A) [facility] Culture Reflex Comment Reflex conditions for urine culture (WBC >10) not met. [facility] Urine 05/09/2021 3:08 PM STRATEGIC SOURCING MANAGER 05/09/2021 3:15 PM STRATEGIC SOURCING MANAGER Eduardo Brush MD LAB URINE ORDERABLES Final R esult Performing Organization Address City/[facility] Co de Phone Number [facility] Department [place] [address] * (ABNORMAL) Urinalysis reflex to microscopic and culture Urine (05/09/2021 3:08 PM STRATEGIC SOURCING MANAGER) Color, ur Straw Yellow [facility] Clarity, ur Clear Clear [facility] Specific gravity, ur 1.024 1.003 - 1.030 [facility] pH, urine 6.0 [facility] Protein, ur ql Trace Negative [facility] Glucose, ur ql Negative Negative [facility] Ketones, ur Negative Negative [facility] Bilirubin, ur Negative Negative [facility] Blood, ur Trace(A) Negative [facility] Urobilinogen, ur <2.0 <2.0 mg/dL [facility] Nitrite, ur Negative Negative [facility] Leukocyte esterase, ur Negative Negative [facility] UA reflex comment Reflex to microscopic UA will be performed. [facility] Urine 05/09/2021 3:08 PM STRATEGIC SOURCING MANAGER 05/09/2021 3:15 PM STRATEGIC SOURCING MANAGER Narrative [facility] - 05/09/2021 3:29 PM STRATEGIC SOURCING MANAGER ?? Urine pH is affected by diet, medications, systemic acid-base disturbances, and renal tubular function. ??pH may affect urinary stone formation. ??For example, urine pH below 6.0 may help reduce the tendency for calcium phosphate stones and pH greater than 6.0 may reduce the tendency for uric acid stone formation. Source: [place] [employer]. Last revised 03-10-2017 Eduardo Brush MD LAB MICROBIOLOGY - GENERAL O RDERABLES Final Result [facility] Department [place] [address] * (ABNORMAL) eGFR (05/09/2021 3:07 PM STRATEGIC SOURCING MANAGER) eGFR 60(L) 90 - 130 mL/min/1. 73 m2 [facility] Comment: Interpretive Data Reference Interval Normal ?>/= [...] interpretive data was last reviewed 2020. Blood 05/09/2021 3:07 PM STRATEGIC SOURCING MANAGER 05/09/2021 3:22 PM STRATEGIC SOURCING MANAGER us Eduardo Brush MD LAB BLOOD ORDERABLES Final R esult Performing Organization Address City/[facility]/ZIP Co de Phone Number [facility] Department [place] [address] * Lipase (05/09/2021 3:07 PM STRATEGIC SOURCING MANAGER) Lipase 23 10 - 99 Units/L [facility] Blood 05/09/2021 3:07 PM STRATEGIC SOURCING MANAGER 05/09/2021 3:22 PM STRATEGIC SOURCING MANAGER us Notinfile Unknown LAB BLOOD ORDERABLES Final Res ult Performing Organization Address City/[facility]/ZIP Co de Phone Number [facility] Department [place] [address] * Differential, auto (05/09/2021 3:07 PM STRATEGIC SOURCING MANAGER) Neutrophil abs 5.9 1.7 - 6.5 K/cumm [facility] Imm gran abs 0.0 0.0 - 0.1 K/cumm [facility] Lymphocyte abs 1.4 0.8 - 3.3 K/cumm [facility] Monocyte abs 0.5 0.2 - 0.8 K/cumm [facility] Eosinophil abs 0.2 0.0 - 0.5 K/cumm [facility] Basophil abs 0.1 0.0 - 0.1 K/cumm [facility] Neutrophil pct 73.2 % [facility] Comment: Interpretive Data Percent cell count reference ranges are not reported, since discordance with absolute values may lead to misinterpretation of CBC data. Current Interpretive Data was last revised on 2017. Imm gran pct 0.1 % [facility] Comment: Interpretive Data Percent cell count reference ranges are not reported, since discordance with absolute values may lead to misinterpretation of CBC data. Current Interpretive Data was last revised on 2017. Lymphocyte pct 17.3 % [facility] Comment: Interpretive Data Percent cell count reference ranges are not reported, since discordance with absolute values may lead to misinterpretation of CBC data. Current Interpretive Data was last revised on 2017. Monocyte pct 6.6 % [facility] Comment: Interpretive Data Percent cell count reference ranges are not reported, since discordance with absolute values may lead to misinterpretation of CBC data. Current Interpretive Data was last revised on 2017. Eosinophil pct 1.9 % [facility] Comment: Interpretive Data Percent cell count reference ranges are not reported, since discordance with absolute values may lead to misinterpretation of CBC data. Current Interpretive Data was last revised on 2017. Basophil pct 0.9 % [facility] Comment: Interpretive Data Percent cell count reference ranges are not reported, since discordance with absolute values may lead to misinterpretation of CBC data. Current Interpretive Data was last revised on 2017. Blood 05/09/2021 3:07 PM STRATEGIC SOURCING MANAGER 05/09/2021 3:22 PM STRATEGIC SOURCING MANAGER us Eduardo Brush MD LAB BLOOD ORDERABLES Final R esult [facility] Department [place] [address] * Troponin I high-sensitivity series (baseline, 2hr, 4hr, 6hr) (05/09/2021 3:07 PM STRATEGIC SOURCING MANAGER) Trop I hs 4 <=17 ng/L [facility] Comment: Interpretive Data For further hscTnI resources including the diagnostic algorithm and an aid in interpretation, copy and paste this link: https://bjhlab.testcatalog.org/show/[email or web address] Current Interpretive Data last revised 2019. Blood 05/09/2021 3:07 PM STRATEGIC SOURCING MANAGER 05/09/2021 3:22 PM STRATEGIC SOURCING MANAGER Eduardo Brush MD LAB BLOOD ORDERABLES Final R esult [facility] Department [place] [address] * Comprehensive metabolic panel (05/09/2021 3:07 PM STRATEGIC SOURCING MANAGER) Sodium 138 135 - 145 mmol/L [facility] Potassium, pl 4.0 3.3 - 4.9 mmol/L [facility] Chloride 106 97 - 110 mmol/L [facility] CO2 22 22 - 32 mmol/L [facility] Anion gap 10 2 - 15 mmol/L [facility] BUN 24 8 - 25 mg/dL [facility] Creatinine 0.95 0.60 - 1.10 mg/dL [facility] Glucose 166 70 - 199 mg/dL [facility] Comment: Interpretive Data Fasting glucose >/= [...] interpretive data was last revised 2017. Calcium 9.2 8.5 - 10.3 mg/dL [facility] Bilirubin, total 0.4 0.1 - 1.2 mg/dL [facility] Protein, pl 7.5 6.5 - 8.5 g/dL [facility] Albumin 4.4 3.5 - 5.0 g/dL [facility] Alk phos 59 40 - 130 Units/L [facility] ALT 19 7 - 45 Units/L [facility] AST 27 10 - 45 Units/L [facility] Blood 05/09/2021 3:07 PM STRATEGIC SOURCING MANAGER 05/09/2021 3:22 PM STRATEGIC SOURCING MANAGER Eduardo Brush MD LAB BLOOD ORDERABLES Final R esult [facility] Department of [facility] [address] * (ABNORMAL) CBC with auto differential (05/09/2021 3:07 PM STRATEGIC SOURCING MANAGER) [facility] WBC 8.0 3.8 - 9.9 K/cumm [facility] Hgb 12.9 11.9 - 15.5 g/dL [facility] Hct 40.1 35.6 - 45.5 % [facility] Plt 198 150 - 400 K/cumm [facility] MPV 11.6 9.1 - 12.3 fL [facility] RBC 4.46 3.90 - 5.20 M/cumm [facility] MCV 89.9 81.3 - 96.4 fL [facility] MCH 28.9 27.1 - 33.3 pg [facility] MCHC 32.2(L) 32.3 - 35.7 g/dL [facility] RDW CV 14.2 11.1 - 14.9 % [facility] RDW SD 46.7 35.7 - 48.1 fL [facility] NRBC abs 0.00 0.00 - 0.01 K/cumm [facility] Blood 05/09/2021 3:07 PM STRATEGIC SOURCING MANAGER 05/09/2021 3:22 PM STRATEGIC SOURCING MANAGER Eduardo Brush MD LAB BLOOD ORDERABLES Final R esult [facility] Department [place] [address] * POCT glucose (05/09/2021 1:21 PM STRATEGIC SOURCING MANAGER) Glucose, POC 157 70 - 199 mg/dL [facility] Blood 05/09/2021 1:21 PM STRATEGIC SOURCING MANAGER 05/09/2021 1:21 PM STRATEGIC SOURCING MANAGER us Notinfile Unknown LAB POCT ORDERABLES - DEVICE F inal Result [facility] Department [place] [address] documented in this encounter Visit Diagnoses Diagnosis Abdominal pain- Primary Abdominal pain, unspecified site Abdominal pain Abdominal pain, unspecified site Biliary calculus of other site without obstruction Calculus of gallbladder without cholecystitis without obstruction Calculus of gallbladder without cholecystitis without obstruction Cholecystitis Cholecystitis, unspecified S/P mitral valve repair Other postprocedural status CVA (cerebral vascular accident) (HCC) Unspecified cerebral artery occlusion with cerebral infarction Chronic diastolic heart failure (HCC) Chronic diastolic heart failure HTN (hypertension), benign Essential hypertension, benign Type 2 diabetes mellitus (HCC) Calculus of gallbladder without cholecystitis without obstruction documented in this encounter Admitting Diagnoses Diagnosis Abdominal pain Abdominal pain, unspecified site Calculus of gallbladder without cholecystitis without obstruction documented in this encounter Administered Medications Inactive Administered Medications - up to 3 most recent administrations Medication Order MAR Action Action Date Dose Rate Site acetaminophen (TYLENOL) tablet 1,000 mg 1,000 mg, oral, Every 6 hours scheduled, First dose on 05/10/21 at 0145 Given 05/11/2021 10:17 PM CDT 1,000 mg Given 05/11/2021 5:33 PM CDT 1,000 mg Given 05/11/2021 5:02 AM CDT 1,000 mg amLODIPine (NORVASC) tablet 10 mg 10 mg, oral, Daily, First dose on 05/10/21 at 0900 Given 05/12/2021 12:05 PM CDT 10 mg Given 05/10/2021 9:11 AM CDT 10 mg amoxicillin-clavulanate (AUGMENTIN) 875-125 mg per tablet 875 mg of amoxicillin 875 mg of amoxicillin, oral, 2 times daily, First dose on Tue05/12/21 at 1015, For 4 days, Indications: Abdominal/Pelvic InfectionIndications:Abdominal /Pelvic Infection Given 05/12/2021 12:05 PM CDT 875 mg of amoxicillin carvediloL (COREG) tablet 25 mg 25 mg, oral, 2 times daily with meals (bkfst, dinner), First dose on Tue05/10/21 at 0800 Given 05/12/2021 12:05 PM CDT 25 mg Given 05/11/2021 5:33 PM CDT 25 mg Given 05/10/2021 5:31 PM CDT 25 mg dextrose (D10W) 10% bolus 250 mL 250 mL, intravenous, at 1,000 mL/hr, Administer over 15 Minutes, Every 15 min PRN, blood glucose less than 70 mg/dL and UNABLE to swallow/take PO glucose/juice., Starting on Tue05/12/21 at 0756, After treatment for hypoglycemia, recheck BG followed by treatment every 15 minutes until the BG is greater than 100 mg/dL. Then check BG 1 hour post treatment. If BG is less than 100 mg/dL, repeat Q15 minute BG checks and treatment. Call MD for each episode of hypoglycemia., Indications: hypoglycemic disorderIndications:hypog lycemic disorder dextrose (GLUTOSE) 40 % gel 15 g 15 g, oral, Every 15 min PRN, low blood sugar, blood glucose less than 70 mg/dL, Starting on Tue05/12/21 at 0756, If patient is alert and able to [...] Call MD for each episode of hypoglycemia. ICT SUPPORT ENGINEER STATES GLUTOSE-15 CONTAINS GLUCOSE 40% W/W (50% W/V), Indications: hypoglycemic disorderIndications:hypog lycemic disorder glucagon injection 1 mg 1 mg, intramuscular, Every 30 min PRN, low blood sugar, blood glucose less than 70 mg/dL AND no IV access AND unable to take PO glucose/juice., Starting on Tue05/12/21 at 0756, After Glucagon is administered, position patient on [...] 1 mL SWFI. Use immediately following reconstitution. heparin in 0.9% sodium chloride 25,000 unit/250 mL infusion (premix) 0-33 Units/kg/hr ? 61.2 kg (0-20.196 mL/hr, rounded to 0-20.2 mL/hr), intravenous, Titrated, Starting on Tue05/10/21 at 0715, WEIGHT-BASED HEPARIN INFUSION Initial rate 18 Units/kg/hr. Adjust infusion based upon nomogram: PTT less than 40 seconds: Bolus if ordered (see PRN bolus order) , then increase infusion rate 3 units/kg/hour PTT 40 - 50.9 seconds: Bolus if ordered (see PRN bolus order), then increase infusion rate 2 units/kg/hour PTT 51 - 59.9 seconds: No bolus, increase infusion rate 1 unit/kg/hour PTT 60 - 94.9 seconds: No change PTT 95 - 104.9 seconds: No bolus, decrease infusion rate 1 unit/kg/hour PTT 105 - 114.9 seconds: Hold infusion for 30 minutes, then decrease infusion rate 2 units/kg/hour PTT 115 or greater seconds: Hold infusion for 1 hour, then decrease infusion rate 3 units/kg/hour Draw STAT PTT 6 hrs after initiation of heparin infusion, draw STAT PTT 6 hours after each dose/rate change, and every 6 hours until 2 consecutive PTTs are within therapeutic range. Once two consecutive PTT's are therapeutic (60-94.9 seconds), then draw PTT every AM until heparin is discontinued, Indications: Venous ThrombosisIndications:Jake ous Thrombosis Rate/Dose Change 05/12/2021 5:22 AM CDT 19 Units/kg/hr 11.63 mL/hr New Bag 05/12/2021 3:12 AM CDT 18 Units/kg/hr 11.02 mL/ hr Rate/Dose Change 05/11/2021 10:24 PM CDT 18 Units/kg/hr 11 .02 mL/hr insulin lispro (HumaLOG, ADMELOG) 100 unit/mL injection 0-4 Units 0-4 Units, subcutaneous, Nightly, First dose on Tue05/12/21 at 2100, Blood glucose mg/dL: 199 or less: No insulin 200-249: add 1 unit 250-299: add 2 units 300-349: add 3 units and notify physician for adjustment of insulin orders. 350-399: add 4 units and notify physician for adjustment of insulin orders. Over 400: Notify physician for adjustment of insulin orders. Do NOT hold for NPO Status, Indications: Diabetes MellitusIndications:Diabetes Mellitus insulin lispro (HumaLOG, ADMELOG) 100 unit/mL injection 0-5 Units 0-5 Units, subcutaneous, 3 times daily with meals, First dose on Tue05/12/21 at 0830, Blood glucose mg/dL: 149 or less: No insulin 150-199: add 1 unit 200-249: add 2 units 250-299: add 3 units 300-349: add 4 units and notify physician for adjustment of insulin orders. 350-399: add 5 units and notify physician for adjustment of insulin orders. Over 400: Notify physician for adjustment of insulin orders. Do NOT hold for NPO Status, Indications: Diabetes MellitusIndications:Diabetes Mellitus oxyCODONE (ROXICODONE) tablet 5 mg 5 mg, oral, Every 4 hours PRN, 1st line for pain, Starting on Tue05/10/21 at 0144, Indications: PainIndications:Pain Given 05/12/2021 8:48 AM CDT 5 mg Given 05/11/2021 5:46 AM CDT 5 mg Given 05/10/2021 9:14 PM CDT 5 mg sodium chloride 0.9% flush 0.5-20 mL 0.5-20 mL, intra-catheter, Every 8 hours scheduled, First dose on Tue05/10/21 at 0600, Flush volume based on line type and size. Given 05/12/2021 4:46 AM CDT 10 mL Given 05/11/2021 10:17 PM CDT 10 mL Given 05/11/2021 2:38 PM CDT 10 mL sodium chloride 0.9% irrigation As needed, Starting on Tue05/11/21 at 0900, Intra-Op Given 05/11/2021 9:00 AM CDT 1,000 mL Surgical Site sodium chloride 0.9% irrigation As needed, Starting on Tue05/11/21 at 0900, Intra-Op Given 05/11/2021 9:00 AM CDT 1,000 mL Surgical Site umeclidinium (INCRUSE ELLIPTA) 62.5 mcg/actuation inhaler 62.5 mcg 62.5 mcg (1 puff), inhalation, Daily (child life therapist), First dose (after last modification) on Tue05/12/21 at 0930, Rinse mouth with water after use. Do not swallow. Given 05/12/2021 10:19 AM CDT 62.5 mcg documented in this encounter Active and Recently Administered Medications Due to Daylight Saving Time, this section may contain times in both STRATEGIC SOURCING MANAGER and CDT. Scheduled Medication Order 05/10/2021 05/11/2021 05/12/2021 acetaminophen (TYLENOL) tablet 1,000 mg 1,000 mg, oral, Every 6 hours scheduled, First dose on Tue05/10/21 at 0145 0328 (Not Given - Provider: Kiarra Baez RN - Reason: Patient not available)0432 (Given - Provider: Kiarra Baez RN)1214 (Given - Provider: Lele Luz, RN)1731 (Given - Provider: Lele Luz RN)2316 (Given - Provider: Mariah Hagan RN) 0502 (Given - Provider: Daija Borrero, EDD)0555 (MAR Hold - Provider: Automatic Transfer Provider - Reason: Patient not available)1200 (Dose Auto Held - Provider: Automatic Transfer Provider)1329 (MAR Unhold - Provider: Perez Flannery, RN)1733 (Given - Provider: Perez Flannery, RN)2217 (Given - Provider: Adelina Crum, EDD) 0446 (Not Given - Provider: Adelina Crum, EDD - Reason: Patient/family refused)1212 (Not Given - Provider: Gracie Vera RN - Reason: Patient/family refused) amLODIPine (NORVASC) tablet 10 mg 10 mg, oral, Daily, First dose on Tue05/10/21 at 0900 0911 (Given - Provider: Lele Luz RN) 0555 (APR Hold - Provider: Automatic Transfer Provider - Reason: Patient not available)0900 (Dose Auto Held - Provider: Automatic Transfer Provider)1329 (APR Unhold - Provider: Perez Flannery RN) 1205 (Given - Provider: Gracie Vera, EDD) amoxicillin-clavulanat e (AUGMENTIN) 875-125 mg per tablet 875 mg of amoxicillin 875 mg of amoxicillin, oral, 2 times daily, First dose on Tue05/12/21 at 1015, For 4 days, Indications: Abdominal/Pelvic Infection 1205 (Given - Provider: Gracie Vera, EDD) carvediloL (COREG) tablet 25 mg 25 mg, oral, 2 times daily with meals (bkfst, dinner), First dose on Tue05/10/21 at 0800 0911 (Given - Provider: Lele Luz RN)1731 (Given - Provider: Lele Luz RN) 0555 (APR Hold - Provider: Automatic Transfer Provider - Reason: Patient not available)0800 (Dose Auto Held - Provider: Automatic Transfer Provider)1329 (APR Unhold - Provider: Perez Flannery RN)1733 (Given - Provider: Perez Flannery RN) 1205 (Given - Provider: Gracie Vera RN) cefOXitin (MEFOXITIN) 1,000 mg/10 mL in sterile water (premix) 1,000 mg (COMPLETED) 1,000 mg, intravenous, at 200 mL/hr, Administer over 3 Minutes, Once, On Tue05/11/21 at 0800, For 1 dose, Intra-Op, Indications: Prophylaxis, Surgical 0816 (Given - Provider: Brigid Meyers CRNA) cefOXitin (MEFOXITIN) 1,000 mg/10 mL in sterile water (premix) 1,000 mg (CANCELED) 1,000 mg, intravenous, at 200 mL/hr, Administer over 3 Minutes, Every 8 hours scheduled, First dose on Tue05/11/21 at 2015, For 3 doses, Indications: Abdominal/Pelvic Infection 2217 (New Bag - Provider: Adelina Crum RN) 0445 (New Bag - Provider: Adelina Crum RN) heparin 1,000 unit/mL injection 4,900 Units (COMPLETED) 4,900 Units (rounded from 4,896 Units = 80 Units/kg ? 61.2 kg), intravenous, Once, On Tue05/10/21 at 0715, For 1 dose, Initial bolus prior to starting heparin infusion. Do not adjust initial bolus based on patient PTT., Indications: Venous Thrombosis 1023 (Given - Provider: Lele Luz RN) insulin lispro (HumaLOG, ADMELOG) 100 unit/mL injection 0-4 Units 0-4 Units, subcutaneous, Nightly, First dose on Tue05/12/21 at 2100, Blood glucose mg/dL: 199 or less: No insulin 200-249: add 1 unit 250-299: add 2 units 300-349: add 3 units and notify physician for adjustment of insulin orders. 350-399: add 4 units and notify physician for adjustment of insulin orders. Over 400: Notify physician for adjustment of insulin orders. Do NOT hold for NPO Status, Indications: Diabetes Mellitus insulin lispro (HumaLOG, ADMELOG) 100 unit/mL injection 0-5 Units 0-5 Units, subcutaneous, 3 times daily with meals, First dose on Tue05/12/21 at 0830, Blood glucose mg/dL: 149 or less: No insulin 150-199: add 1 unit 200-249: add 2 units 250-299: add 3 units 300-349: add 4 units and notify physician for adjustment of insulin orders. 350-399: add 5 units and notify physician for adjustment of insulin orders. Over 400: Notify physician for adjustment of insulin orders. Do NOT hold for NPO Status, Indications: Diabetes Mellitus 0849 (Not Given - Provider: Gracie Vera RN - Reason: Order parameters not met)1200 (Due) sodium chloride 0.9% flush 0.5-20 mL 0.5-20 mL, intra-catheter, Every 8 hours scheduled, First dose on Tue05/10/21 at 0600, Flush volume based on line type and size. 0433 (Given - Provider: Kiarra Baez RN)1215 (Given - Provider: Lele Luz RN)202 (Not Given - Provider: Mariah Hagan RN - Reason: IV Infusing) 0502 (Not Given - Provider: Mariah Hagan, EDD - Reason: IV Infusing)0555 (MAR Hold - Provider: Automatic Transfer Provider - Reason: Patient not available)1329 (MAR Unhold - Provider: Perez Flannery RN)1438 (Given - Provider: Perez Flannery RN)2217 (Given - Provider: Adelina Crum, EDD) 0446 (Given - Provider: Adelina Crum, EDD) umeclidinium (INCRUSE ELLIPTA) 62.5 mcg/actuation inhaler 62.5 mcg (CANCELED) 62.5 mcg (1 puff), inhalation, Daily (child life therapist), First dose on Tue05/10/21 at 0900 0842 (Given - Provider: Samuel Rain, JETT) 0555 (MAR Hold - Provider: Automatic Transfer Provider - Reason: Patient not available)0900 (Dose Auto Held - Provider: Automatic Transfer Provider)1329 (MAR Unhold - Provider: Perez Flannery RN) 0843 (Not Given - Provider: Ariadna Warren, JETT - Reason: Other - Comment: Med not available yet.) umeclidinium (INCRUSE ELLIPTA) 62.5 mcg/actuation inhaler 62.5 mcg 62.5 mcg (1 puff), inhalation, Daily (child life therapist), First dose (after last modification) on Tue05/12/21 at 0930, Rinse mouth with water after use. Do not swallow. 1019 (Given - Provider: Ariadna Warren, JETT) Continuous Medication Order 05/10/2021 05/11/2021 05/12/2021 dextrose 5% and sodium chloride 0.45% with potassium chloride 20 mEq/L infusion (premix) (CANCELED) 50 mL/hr, intravenous, Continuous, Starting on Tue05/10/21 at 0145 0432 (New Bag - Provider: Kiarra Baez RN)0434 (New Bag - Provider: Kiarra Baez RN) 0305 (New Bag - Provider: Mariah Hagan, EDD)1345 (New Bag - Provider: Perez Flannery RN) heparin in 0.9% sodium chloride 25,000 unit/250 mL infusion (premix) 0-33 Units/kg/hr ? 61.2 kg (0-20.196 mL/hr, rounded to 0-20.2 mL/hr), intravenous, Titrated, Starting on Tue05/10/21 at 0715, WEIGHT-BASED HEPARIN INFUSION Initial rate 18 Units/kg/hr. Adjust infusion based upon nomogram: PTT less than 40 seconds: Bolus if ordered (see PRN bolus order) , then increase infusion rate 3 units/kg/hour PTT 40 - 50.9 seconds: Bolus if ordered (see PRN bolus order), then increase infusion rate 2 units/kg/hour PTT 51 - 59.9 seconds: No bolus, increase infusion rate 1 unit/kg/hour PTT 60 - 94.9 seconds: No change PTT 95 - 104.9 seconds: No bolus, decrease infusion rate 1 unit/kg/hour PTT 105 - 114.9 seconds: Hold infusion for 30 minutes, then decrease infusion rate 2 units/kg/hour PTT 115 or greater seconds: Hold infusion for 1 hour, then decrease infusion rate 3 units/kg/hour Draw STAT PTT 6 hrs after initiation of heparin infusion, draw STAT PTT 6 hours after each dose/rate change, and every 6 hours until 2 consecutive PTTs are within therapeutic range. Once two consecutive PTT's are therapeutic (60-94.9 seconds), then draw PTT every AM until heparin is discontinued, Indications: Venous Thrombosis 1023 (New Bag - Provider: Lele Luz RN)1726 (Stopped - Provider: Lele Luz RN)1919 (Restarted - Provider: Mariah Hagan RN - Comment: Handoff) 0200 (Stopped - Provider: Mariah Hagan RN)1430 (New Bag - Provider: Perez Flannery RN)2224 (Rate/Dose Change - Provider: Aedlina Crum RN) 0312 (New Bag - Provider: Adelina Crum RN)0522 (Rate/Dose Change - Provider: Adelina Crum RN) Lactated Ringer's (LR) infusion (CANCELED) 30 mL/hr, intravenous, Continuous, Starting on Tue05/11/21 at 0630, Pre-Op, 0613 (New Bag - Provider: Daija Borrero RN)0757 (Rate/Dose Verify - Provider: Brigid Meyers CRNA)1026 (Stopped - Provider: Brigid Meyers CRNA)1247 (Stopped - Provider: Ester Goodman RN) PRN Medication Order 05/10/2021 05/11/2021 05/12/2021 dextrose (D10W) 10% bolus 250 mL(Linked Group 1) 250 mL, intravenous, at 1,000 mL/hr, Administer over 15 Minutes, Every 15 min PRN, blood glucose less than 70 mg/dL and UNABLE to swallow/take PO glucose/juice., Starting on Tue05/12/21 at 0756, After treatment for hypoglycemia, recheck BG followed [...] glucose less than 70 mg/dL, Starting on Tue05/12/21 at 0756, If patient is alert and able to [...] Call MD for each episode of hypoglycemia. ICT SUPPORT ENGINEER STATES GLUTOSE-15 CONTAINS GLUCOSE 40% W/W (50% W/V), Indications: hypoglycemic disorder fentaNYL (SUBLIMAZE) preservative free injection 25 mcg (CANCELED) 25 mcg, intravenous, Every 10 min PRN, 1st line for pain, Starting on Tue05/11/21 at 1027, Phase I, Switch to 2nd line analgesic order if pain is uncontrolled or increasing after 2 doses. Notify Anesthesiologist if total PACU dose reaches 100 mcg and pain score 5/10 or more., Indications: Pain 1041 (Given - Provider: Ester Goodman RN)1052 (Given - Provider: Ester Goodman, EDD) glucagon injection 1 mg 1 mg, intramuscular, Every 30 min PRN, low blood sugar, blood glucose less than 70 mg/dL AND no IV access AND unable to take PO glucose/juice., Starting on Tue05/12/21 at 0756, After Glucagon is administered, position patient on [...] 1 mL SWFI. Use immediately following reconstitution. oxyCODONE (ROXICODONE) tablet 5 mg 5 mg, oral, Every 4 hours PRN, 1st line for pain, Starting on Tue05/10/21 at 0144, Indications: Pain 0524 (Given - Provider: Kiarra Baez RN)2114 (Given - Provider: Mariah Hagan, EDD) 0546 (Given - Provider: Mariah Hagan, EDD)0555 (APR Hold - Provider: Automatic Transfer Provider - Reason: Patient not available)1329 ([facility] Unhold - Provider: Perez Flannery, EDD) 0848 (Given - Provider: Gracie Vera RN) sodium chloride 0.9% flush 0.5-20 mL 0.5-20 mL, intra-catheter, As needed, line care, Starting on Tue05/10/21 at 0144, Flush volume based on line type and size. Flush before and after each use. 0555 (APR Hold - Provider: Automatic Transfer Provider - Reason: Patient not available)1329 (APR Unhold - Provider: Perez Flannery RN) sodium chloride 0.9% irrigation (CANCELED) As needed, Starting on Tue05/11/21 at 0900, Intra-Op 0900 (Given - Provider: Stephanie Castelan MD - Comment: PRN irrigation) sodium chloride 0.9% irrigation (CANCELED) As needed, Starting on Tue05/11/21 at 0900, Intra-Op 0900 (Given - Provider: Stephanie Castelan MD - Comment: for suction gutter hanger) Linked Groups Order Group 1: dextrose (GLUTOSE) 40 % gel 15 gJump to med 15 g, oral, Every 15 min PRN, low blood sugar, blood glucose less than 70 mg/dL, Starting on Tue05/12/21 at 0756, If patient is alert and able to [...] Call MD for each episode of hypoglycemia. ICT SUPPORT ENGINEER STATES GLUTOSE-15 CONTAINS GLUCOSE 40% W/W (50% W/V), Indications: hypoglycemic disorder Or dextrose (D10W) 10% bolus 250 mLJump to med 250 mL, intravenous, at 1,000 mL/hr, Administer over 15 Minutes, Every 15 min PRN, blood glucose less than 70 mg/dL and UNABLE to swallow/take PO glucose/juice., Starting on Tue05/12/21 at 0756, After treatment for hypoglycemia, recheck BG followed by treatment every 15 minutes until the BG is greater than 100 mg/dL. Then check BG 1 hour post treatment. If BG is less than 100 mg/dL, repeat Q15 minute BG checks and treatment. Call MD for each episode of hypoglycemia., Indications: hypoglycemic disorder documented in this encounter Orders Medications Ordered That Dion ht Not Have Been Administered Count Last Ordered Date First Ordered Date amoxicillin-clavulanate (SEP MENTIN) 875-125 mg per tablet 875 mg of amoxicillin 1 05/12/2021 dextrose (D10W) 10% bolus 250 mL 05/13/19 dextrose (GLUTOSE) 40 % gel 15 g 05/13/19 glucagon injection 1 mg 05/12/2021 insulin lispro (HumaLOG, ADM ELOG) 100 unit/mL injection 0-4 Units 1 05/12/2021 insulin lispro (HumaLOG, ADM ELOG) 100 unit/mL injection 0-5 Units 1 05/12/2021 umeclidinium (INCRUSE ELLIPT A) 62.5 mcg/actuation inhaler 62.5 mcg 3 05/12/2021 2 cefOXitin (MEFOXIN) 1,000 mg in sterile water 10 mL IV syringe 1 05/11/2021 cefOXitin (MEFOXITIN) 1,000 mg/10 mL in sterile water (premix) 1,000 mg 2 05/11/2021 famotidine (PEPCID) tablet 20 mg 1 05/12/19 fentaNYL (SUBLIMAZE) preserv ative free injection 25 mcg 1 05/11/2021 fentaNYL (SUBLIMAZE) preserv ative free injection 50 mcg 1 05/11/2021 Lactated Ringer's (LR) infusion 2 naloxone (NARCAN) 0.4 mg/mL injection 0.04-0.4 mg 1 05/11/2021 prochlorperazine (COMPAZINE) injection 10 mg 1 05/11/2021 sodium chloride 0.9% flush 0.5-20 mL 5 04/2805/10/2021 acetaminophen (TYLENOL) tablet 1,000 mg 1 0 05/10/2021 amLODIPine (NORVASC) tablet 10 mg 1 022 carvediloL (COREG) tablet 25 mg 1 dextrose 5% and sodium chlor mark 0.45% with potassium chloride 20 mEq/L infusion (premix) 1 05/10/2021 enoxaparin (LOVENOX) syringe 40 mg 1 2021 heparin 1,000 unit/mL inject ion 4,900 Units 1 05/10/2021 heparin in 0.9% sodium chlor mark 25,000 unit/250 mL infusion (premix) 1 05/10/2021 HYDROmorphone (DILAUDID) injection 0.2 mg 1 05/10/2021 ondansetron (ZOFRAN) injection 4 mg 3 05/1005/09/2021 oxyCODONE (ROXICODONE) tablet 5 mg 1 2021 ioversoL (OPTIRAY 350) syrin ge syringe 100 mL 1 05/09/2021 morphine injection 2 mg 2 05/09/2021 Lab Orders Without Results Count Last Ordered D ate First Ordered Date POCT GLUCOSE DEVICE 14 05/12/2021 05/10/19 22 LIPASE 1 05/09/2021 POCT CREATININE - DEVICE 1 05/09/2021 Diet Count Last Ordered Date First Orde red Date ADULT DISCHARGE DIET 1 05/12/2021 Nursing Count Last Ordered Date First Orde red Date DISCHARGE ACTIVITY 3 05/12/2021 DISCHARGE CALL PROVIDER 6 05/12/2021 DISCHARGE DRESSING 4 05/12/2021 DISCHARGE INSTRUCTIONS 1 05/12/2021 ACTIVITY 1 05/10/2021 MAINTAIN IV ACCESS 1 05/10/2021 NOTIFY PROVIDER (SPECIFY) 1 05/10/[address] PL[address] SEQUENTIAL COMPRESSION DEVICE 1 05/10 WEIGH PATIENT 1 05/10/2021 IV Count Last Ordered Date First Orde red Date INSERT PERIPHERAL IV 1 05/10/2021 Case Request Count Last Ordered Date First Orde red Date CASE REQUEST OPERATING ROOM 1 05/10/2021 ADT Patient Update Count Last Ordered Date Firs t Ordered Date ED IP DECISION TO ADMIT 1 05/09/2021 documented in this encounter Care Teams Fruit Dumper Relationship Specialty Start Date End Date Haris Lauren MD PCP - General Family Medicine 12/31/20 06/07/21 documented as of this encounter
--- OUTSIDE RECORDS SUMMARY | 2024-02-28 15:36 | XMS_ITS | Encounter Summary ---
Author Organization [facility] Address [address] [place] [address] Phone Care Team Providers Care Art Specialist Name Role Phone Cassius Chambers MD Primary Care Provider [phone] Encounter Details Date Type Department Care Team (Late st Contact Info) Description 06/02/2020 Telephone [facility] Cardiology [address] [facility] [address] [place] [address] [place] [address] Sp [place] MD [address] [facility] [address] [place] [address] Social History Tobacco Use Types Packs/Day Years Used Date Smoking Tobacco: Never Smokeless Tobacco: Never Alcohol Use Standard Drinks/Week Comments No 0 (1 standard drink = 0.6 oz pur e alcohol) Comments No Sex and Gender Information Value Date Recorded Sex Assigned at Not on file 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 Gender Identity Female 06/15/2023 1:45 PM CDT Sexual Orientation Straight 06/15/2023 1: 45 PM CDT documented as of this encounter Ordered Prescriptions Prescription Sig Dispense Quantity Refills Last Filled Start Date End Date carvediloL (COREG) 25 mg tablet Take 1 tablet (25 mg total) by mouth 2 (two) times a day 180 tablet 1 06/02/2020 12/01/2020 documented in this encounter Miscellaneous Notes * Telephone Encounter - Nella Brown MA - 06/02/2020 9:42 AM CDT Rx faxed * Telephone Encounter - Alecia Ratliff - 06/02/2020 9:33 AM CDT [place] Carvedilol 25mg 2/D # [facility] documented in this encounter Plan of Treatment Not on file documented as of this encounter Visit Diagnoses Not on filedocumented in this encounter Discontinued Medications Medication Sig Discontinue Reason Start Date End Da te carvediloL (COREG) 25 mg tablet Take 1 tablet by mouth twice daily Reorder 06/04/2019 06/02/2020 documented as of this encounter Care Teams Art Specialist Relationship Specialty Start Date End Date Cassius Chambers MD [address] [address] PCP - General 08/12/16 12/30/20 documented as of this encounter
--- OUTSIDE RECORDS SUMMARY | 2024-02-28 15:36 | XMS_ITS | Encounter Summary ---
Author Organization [facility] Address [address] [place] [address] Care Team Providers Care Hat And Cap Parts Cutter Hand Name Role Phone Cassius Chambers MD Primary Care Provider [phone] Encounter Details Date Type Department Care Team (Late st Contact Info) Description 05/09/2020 [facility] [address] [facility] [address] [place] [address] Cassius Chambers MD [address] [facility] [address] [address] [place] [address] Social History Tobacco Use Types Packs/Day Years Used Date Smoking Tobacco: Never Smokeless Tobacco: Never Alcohol Use Standard Drinks/Week Comments No 0 (1 standard drink = 0.6 oz pur e alcohol) Comments No Sex and Gender Information Value Date Recorded Sex Assigned at Not on file 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 Sex 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' 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 Gender Identity Female 06/15/2023 1:45 PM CDT Sexual Orientation Straight 06/15/2023 1: 45 PM CDT documented as of this encounter Miscellaneous Notes * Result Encounter Note - Melanie Wilkes MA - 05/13/2020 11:52 AM CDT Message sent to interventional radiology * Telephone Encounter - Melanie Wilkes MA - 05/09/2020 9:06 AM CST PATIENT GOING TO [facility] FOR LABS ORDER FAXED TS' 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 * Telephone Encounter - Melanie Wilkes MA - 05/09/2020 8:57 AM CST ----- Message from Estella Talley RN sent at 05/08/2020 8:56 AM AGENTS' 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 ----- Regarding: CBC, CMP, PT/INR, aPTT needed Good Morning, The patient's daughter brought Mrs Johnson's imaging CD to our office yesterday and Dr. Jeyson Puga reviewed. L1 and T12 are amenable to vertebral augmentations. I will be contacting the patient later today to inform her of this. Prior to scheduling, we will need CBC, CMP, PT/INR, aPTT to be ordered and completed. We will need to determine how long her Eliquis hold will need to be based on Cr clearance and protocol. After labs are completed we will then send a request to her prescribing MD for approval to hold. Can you please let me know when the lab work has been arranged? Thank you ----- Message ----- From: Melanie Wilkes MA Sent: 05/06/2020 8:27 AM AGENTS' 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 To: EDD Roberts I will contact patient but how or where do these films need to go to. Where does patient bring films or have them mailed. Thanks Melanie ----- Message ----- From: Estella Talley RN Sent: 05/02/2020 3:17 PM AGENTS' 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 To: Melanie Wilkes MA, Erin Sawyer RN Subject: Vertebroplasty referral Cathryn Self referral was placed requesting a T12 vertebral augmentation. I see a CT L spine report from 03-22-20 ([facility] in [place], [place]) with mention of xrays as well. We will need the images (xrays and CT of lumbar spine) uploaded in epic for review/determination if this is amenable to treatment. In addition, we will need lab work (CBC, CMP, PT/INR, and aPTT) within the last 30 days if we can proceed to determine hold time for her eliquis prior to any treatment. Please let me know when the imaging is uploaded in [employer] and we will go from there. Thank you and enjoy your weekend TS' 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 documented in this encounter Plan of Treatment Not on file documented as of this encounter Procedures Procedure Name Priority Date/Time Associated Diagnosis Comments SCAN - LABS 05/09/2020 5:35 PM AGENTS' 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 SCAN - LABS 05/09/2020 2:53 PM AGENTS' 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 SCAN - LABS 05/09/2020 2:51 PM AGENTS' 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 documented in this encounter Results * SCAN - LABS (05/09/2020 5:35 PM AGENTS' 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) us Cassius Chambers MD Final Result * SCAN - LABS (05/09/2020 2:53 PM AGENTS' 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) us Cassius Chambers MD Final Result * SCAN - LABS (05/09/2020 2:51 PM AGENTS' 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) us Cassius Chambers MD Final Result documented in this encounter Visit Diagnoses Not on filedocumented in this encounter Care Teams Hat And Cap Parts Cutter Hand Relationship Specialty Start Date End Date Cassius Chambers MD [address] [address] PCP - General 08/12/16 12/30/20 documented as of this encounter
--- OUTSIDE RECORDS SUMMARY | 2024-02-28 15:36 | XMS_ITS | Encounter Summary ---
Author Organization [facility] Address [address] [place] [address] Care Team Providers Care Real Estate Sales Manager Name Role Phone Cassius Chambers MD Primary Care Provider [phone] Encounter Details Date Type Department Care Team (Late st Contact Info) Description 05/13/2020 Telephone [facility] Radiology [address] [place] [address] Estella Talley RN Social History Tobacco Use Types Packs/Day Years Used Date Smoking Tobacco: Never Smokeless Tobacco: Never Alcohol Use Standard Drinks/Week Comments No 0 (1 standard drink = 0.6 oz pur e alcohol) Comments No Sex and Gender Information Value Date Recorded Sex Assigned at Not on file 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 Chambers (Melanie Wilkes MA) Spoke with patient's and below information given/reviewed: Date scheduled: 05-23-20 Location: [facility] Registration time: 929 Procedure time: 1100 Instructed on NPO instructions: Yes. NPO after 0300 Indicated bulk delivery driver (family/friend) required: Yes ( will accompany her) Anticoagulant/Antiplatelet use: Yes. Liliana 5 day hold required/approved and instructed that she should hold starting on 05-18-20 Insurance PA needed: NPR (Medicare/[facility]) documented in this encounter Plan of Treatment Not on file documented as of this encounter Visit Diagnoses Not on filedocumented in this encounter Care Teams Real Estate Sales Manager Relationship Specialty Start Date End Date Cassius Chambers MD [address] [address] PCP - General 08/12/16 12/30/20 documented as of this encounter
--- OUTSIDE RECORDS SUMMARY | 2024-02-28 15:36 | XMS_ITS | Encounter Summary ---
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 Lauren: Labs pretty good. ??LFTs better. ??Keep follow-up Pt's notified. * Telephone Encounter - Mona Singleton MA - 05/19/2021 8:33 AM CDT Called to give labs, left vm to call the office back. * Telephone Encounter - Mona Singleton MA - 05/19/2021 8:33 AM CDT ----- Message from Cyn Silva MA sent at 05/18/2021 12:39 PM CDT ----- Edw documented in this encounter Plan of Treatment Not on file documented as of this encounter Visit Diagnoses Not on filedocumented in this encounter Care Teams Pack Mule Worker Relationship Specialty Start Date End Date Haris Lauren MD PCP - General Family Medicine 12/31/20 06/07/21 documented as of this encounter
--- OUTSIDE RECORDS SUMMARY | 2024-02-28 15:36 | XMS_ITS | Encounter Summary ---
Author Organization [facility] Address [address] [place] [address] Care Team Providers Care Pediatric Psychiatrist Name Role Phone Cassius Chambers MD Primary Care Provider [phone] Reason for Referral * Diagnostic Imaging (Routine) - Closed Specialty Diagnoses / Procedures Referred By Contac t Referred To Contact Diagnoses Age related osteoporosis, unspecified pathological fracture presence Post-menopausal Abnormal bone density screening Procedures Dexa Axial Skeleton Bone Density 1 or 2 Site Cassius Chambers MD [address] [place] [address] Phone: tel: fax: [address] [address] Referral ID Status Reason Start Date Expiration Date Visits Re quested Visits Authorized [id number] Closed 06/03/2020 07/03/2021 1 1 Reason for Visit * Diagnostic Imaging (Routine) - Closed Specialty Diagnoses / Procedures Referred By Contac t Referred To Contact Diagnoses Age related osteoporosis, unspecified pathological fracture presence Post-menopausal Abnormal bone density screening Procedures Dexa Axial Skeleton Bone Density 1 or 2 Site Cassius Chambers MD [address] [address] Phone: tel: fax: [facility] [address] [facility] [place] [address] Referral ID Status Reason Start Date Expiration Date Visits Re quested Visits Authorized [id number] Closed 06/03/2020 07/03/2021 1 1 Encounter Details Date Type Department Care Team (Latest Contact Info) Description 09/09/2020 9:44 AM CDT - 09/09/2020 11:59 PM CDT Hospital Encounter [facility] [address] [place] [address] Cassius Chambers MD [address] [facility] [address] [place], [place] [id number] Age related osteoporosis, unspecified pathological fracture presence; Post-menopausal; Abnormal bone density screening Discharge Disposition: Discharge to home or self care Social History Tobacco Use Types Packs/Day Years Used Date Smoking Tobacco: Never Smokeless Tobacco: Never Alcohol Use Standard Drinks/Week Comments No 0 (1 standard drink = 0.6 oz pur e alcohol) Comments No Sex and Gender Information Value Date Recorded Sex Assigned at Not on file 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 Gender Identity Female 06/15/2023 1:45 PM CDT Sexual Orientation Straight 06/15/2023 1: 45 PM CDT documented as of this encounter Medications at Time of Discharge amLODIPine (NORVASC) 10 mg tablet Take 1 tablet (10 mg total) by mouth daily 90 tablet 1 05/27/2020 1 carvediloL (COREG) 25 mg tablet Take 1 tablet (25 mg total) by mouth 2 (two) times a day 180 tablet 1 06/02/2020 1 clonazePAM (KlonoPIN) 0.5 mg tablet Take 1 tablet (0.5 mg total) by mouth nightly 30 tablet 2 07/29/2020 1 Eliquis 2.5 mg tablet Take 1 tablet by mouth twice daily 180 tablet 3 06/11/2020 1 fenofibrate (TRIGLIDE) 160 mg tablet Take 1 tablet (160 mg total) by mouth daily 90 tablet 07/01/2020 1 furosemide (LASIX) 20 mg tablet Take 1 tablet (20 mg total) by mouth daily as needed (leg swelling or worsening shortness of breath) 30 tablet 1 04/29/2020 1 losartan (COZAAR) 100 mg tabletIndication s:Type 2 diabetes mellitus without complication, without long-term current use of insulin (CMS/HCC) (HCC) Take 1 tablet (100 mg total) by mouth daily 90 tablet 1 07/23/2020 1 metFORMIN (GLUCOPHAGE) 500 mg tablet Take 1 tablet (500 mg total) by mouth 2 (two) times a day with meals 180 tablet 1 07/10/2020 1 pravastatin (PRAVACHOL) 40 mg tablet Take 1 tablet (40 mg total) by mouth daily 90 tablet 1 07/10/2020 1 zolpidem (AMBIEN) 10 mg tablet Take 1 tablet (10 mg total) by mouth nightly at bedtime. 90 tablet 07/23/2020 1 documented as of this encounter Discharge Disposition Disposition Code Departure Means Destination Discharge to home or self care documented in this encounter Plan of Treatment Not on file documented as of this encounter Procedures Procedure Name Priority Date/Time Associated Diagnosis Comments DEXA AXIAL SKELETON BONE DENSITY 1 OR MORE SITES Schedule Routine, Read Routine (OP Routine) 09/09/2020 10:40 AM CDT Age related osteoporosis, unspecified pathological fracture presence Post-menopausal Abnormal bone density screening documented in this encounter Results * Dexa Axial Skeleton Bone Density 1 [...] the left greater trochanter, substantially unchanged since 2013, and likely benign. ?? SUMMARY OF CURRENT [...] MD IMG DXA PROCEDURES Final Resul t documented in this encounter Visit Diagnoses Diagnosis Age related osteoporosis, unspecified pathological fracture presence Post-menopausal Asymptomatic postmenopausal status (age-related) (natural) Abnormal bone density screening documented in this encounter Care Teams Pediatric Psychiatrist Relationship Specialty Start Date End Date Cassius Chambers MD [address] [place] [address] PCP - General 08/12/16 12/30/20 documented as of this encounter
--- OUTSIDE RECORDS SUMMARY | 2024-02-28 15:36 | XMS_ITS | Encounter Summary ---
Author Organization [facility] Healthcare Address [address] [place] [address] Care Team Providers Care Operations Support Representative Name Role Phone Cassius Chambers MD Primary Care Provider [phone] Encounter Details Date Type Department Care Team (Late st Contact Info) Description 05/30/2020 Telephone 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 1 week post procedure DOS: 3-26-21 Procedure: T12 and L1 vertebral augmentation with cavity creation under fluoroscopic guidance. The patient had reduction of pain symptoms at the conclusion of the procedure. Performed by Dr. Hillen I spoke with the patient and her . She reports ~20% relief in her back pain. She rates pain 4/10 at its least and 9/10 at its worst. Her pain is still in the treated region of her low back. She denies any new onset pain. She is taking hydrocodone 5/325 mg Q 6 hrs prn pain. Mr. Johnson feelsthat the Zolpidem has helped her the most. She is more active and able to walk around her home withsome less pain. Site healing normally. They have an appointment with Dr. Chambers of 06-03-20. We will call at the 1 month post procedure kyeon to follow up. She we call with in the interim with any changesor questions documented in this encounter Plan of Treatment Not on file documented as of this encounter Visit Diagnoses Not on filedocumented in this encounter Care Teams Operations Support Representative Relationship Specialty Start Date End Date Cassius Chambers MD [address] [place] [address] PCP - General 08/12/16 12/30/20 documented as of this encounter
--- OUTSIDE RECORDS SUMMARY | 2024-02-28 15:36 | XMS_ITS | Encounter Summary ---
Author Organization [facility] Address [address] [place] [address] Care Team Providers Care Pillowcase Cleaner Name Role Phone Cassius Chambers MD Primary Care Provider [phone] Reason for Referral * Diagnostic Imaging (Routine) - Closed Specialty Diagnoses / Procedures Referred By Contac t Referred To Contact Diagnoses Age related osteoporosis, unspecified pathological fracture presence Post-menopausal Abnormal bone density screening Procedures Dexa Axial Skeleton Bone Density 1 or 2 Site Cassius Chambers MD [address] [facility] [address] [place] [address] Phone: tel: fax: [facility] [address] [place] [address] Referral ID Status Reason Start Date Expiration Date Visits Re quested Visits Authorized [id number] Closed 06/03/2020 07/03/2021 1 1 Reason for Visit * Reason Comments Follow-up Encounter Details Date Type Department Care Team (Late st Contact Info) Description 06/03/2020 12:30 PM CDT Office Visit [facility] [address] [facility] [address] [place] [facility] [place] [address] Cassius Chambers MD [address] [facility] [address] [place] [address] Type 2 diabetes mellitus with hyperglycemia, without long-term current use of insulin (CMS/HCC) (Primary Dx); Essential hypertension, benign; Cerebrovascular accident (CVA), unspecified mechanism (CMS/HCC); Mixed hyperlipidemia; Decreased bone density; Age related osteoporosis, unspecified pathological fracture presence; Post-menopausal; Abnormal bone density screening Social History Tobacco Use Types Packs/Day Years Used Date Smoking Tobacco: Never Smokeless Tobacco: Never Alcohol Use Standard Drinks/Week Comments No 0 (1 standard drink = 0.6 oz pur e alcohol) Comments No Sex and Gender Information Value Date Recorded Sex Assigned at Not on file 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 Gender Identity Female 06/15/2023 1:45 PM CDT Sexual Orientation Straight 06/15/2023 1: 45 PM CDT documented as of this encounter Last Filed Vital Signs Vital Sign Reading Time Taken Comments Blood Pressure 148/79 06/03/2020 12:33 PM CDT Pulse 73 06/03/2020 12:33 PM CDT Temperature - - Respiratory Rate - - Oxygen Saturation 98% 06/03/2020 12:33 PM CDT Inhaled Oxygen Concentration - - Weight 59 kg (130 lb) 06/03/2020 12:33 PM CDT Height - - Body Mass Index 25.39 05/23/2020 9:56 AM CDT documented in this encounter Progress Notes * Cassius Chambers MD - 06/03/2020 12:30 PM CDT Office Visit Yuliana Johnson is a 79 y.o. female here for Follow-up Current Medications Current Outpatient Medications: ??? amLODIPine (NORVASC) 10 mg tablet, Take 1 tablet (10 mg total) by mouth daily, Disp: 90 tablet,Rfl: 1 ??? apixaban (ELIQUIS) 2.5 mg tablet, Take 1 tablet (2.5 mg total) by mouth 2 (two) times a day, Disp: 56 tablet, Rfl: 0 ??? carvediloL (COREG) 25 mg tablet, Take 1 tablet (25 mg total) by mouth 2 (two) times a day, Disp: 180 tablet, Rfl: 1 ??? fenofibrate (TRIGLIDE) 160 mg tablet, Take 1 tablet by mouth once daily, Disp: 90 tablet, Rfl: 0 ??? furosemide (LASIX) 20 mg tablet, Take 1 tablet (20 mg total) by mouth daily as needed (leg swelling or worsening shortness of breath), Disp: 30 tablet, Rfl: 1 ??? HYDROcodone-acetaminophen (NORCO) 5-325 mg per tablet, Take 1 tablet by mouth every 6 (six) hours as needed for pain, Disp: 120 tablet, Rfl: 0 ??? losartan (COZAAR) 100 mg tablet, Take 1 tablet (100 mg total) by mouth daily, Disp: 90 tablet, Rfl: 1 ??? zolpidem (AMBIEN) 10 mg tablet, Take 1 tablet (10 mg total) by mouth nightly at bedtime., Disp:90 tablet, Rfl: 0 Allergies No Known Allergies Past Medical and Surgical History: Patient Active Problem List Diagnosis ??? Abnormal EKG ??? Arteriosclerotic vascular disease ??? Chest pain ??? Type 2 diabetes mellitus (CMS/HCC) ??? Dyslipidemia ??? HTN (hypertension), benign ??? Mitral valve insufficiency ??? Pulmonary hypertension (CMS/HCC) ??? S/P mitral valve repair ??? Tricuspid valve disorder ??? CVA (cerebral vascular accident) (CMS/HCC) ??? Compression fracture of T12 vertebra (CMS/HCC) Past Medical History: Diagnosis Date ??? Cancer (CMS/HCC) breast ??? Diabetes mellitus (CMS/HCC) ??? Hyperlipidemia ??? Hypertension Past Surgical History: Procedure Laterality Date ??? HYSTERECTOMY ??? KYPHOPLASTY THORACIC N/A 05/23/2020 ??? MASTECTOMY Left ??? MITRAL VALVE REPAIR Family History: Family History [...] Conv) Social History: Social History Tobacco Use ??? Smoking status: Never Smoker ??? Smokeless tobacco: Never Used Substance Use Topics ??? Alcohol use: No ??? Drug use: No Social History Social History Narrative ??? Not on file Immunization History Administered Date(s) Administered ??? Influenza, Trivalent, High Dose, Split, Preservative Free, Intramuscular 02/09/2019 HPI Patient states that she can not sit still. She is very anxious. She has been taking 10 mg of zolpidem at bedtime and sleeps till approximately 3:00 a.m. and then awakens agitated and unable to us sitstill. Her has been giving her a 2nd 5 mg dose of zolpidem at that time. Patient continues to take hydrocodone 2-3 tablets per day for for pain related to her thoracic vertebra compression. Sh did have a vertebroplasty that seemingly was unsuccessful. She has no dizziness or lightheadedness. She has no presyncope. She has no chest pain pressure palpitations or shortness of breath. Bowel habits are normal without rectal bleeding or melena. She has no heartburn or indigestion and she has no abdominal pain. Review of Systems: No symptoms urinary tract infection Pump/Sensor Diagnosis: Length of times: Frequency of BG tests: For Duration: Frequency of Pump Site sites: Changes If change, Q2 days reason: Number of Injections per Day: Physical Exam Vitals BP 148/79 Pulse 73 Wt 59 kg (130 lb) SpO2 98% BMI 25.39 kg/m?? Wt Readings from Last 3 Encounters: 06/03/20 59 kg (130 lb) 05/23/20 62.1 kg (137 lb) 04/28/20 62.1 kg (137 lb) Body mass index is 25.39 kg/m??. General: NAD Neck: No goiter and no lymphadenopathy Lungs: CTA. No wheezing or rales CVS: RRR. No murmurs, gallops or rubs. No carotid bruits Abdomen: Soft, NTND. Normal bowel sounds without palpable liver and spleen. No CVAT Extremities: No edema Psych: Normal affect and speech Neuro: Alert and conversant. Cranial nerves 2-12 intact. Motor tone and strength are normal. Reflexes 2+ symmetrical. Gait is normal. POCT HbA1C POCT Lipids Assessment 1. Agitation secondary to compression fracture and pain 2. History of CVA 3. T2 dm 4. Hypertension 5. Valvular heart disease post mitral valve repair 6. Pulmonary hypertension 7. Hyperlipidemia Plan: 1. Continue Ambien 10 mg q.h.s. 2. Add clonazepam 0.5 mg q.h.s. or during the middle of the night if needed 3. Return visit 2-3 months 4. Bone density Diagnoses and all orders for this visit: Type 2 diabetes mellitus with hyperglycemia, without long-term current use of insulin (CMS/HCC) (Primary) Essential hypertension, benign Cerebrovascular accident (CVA), unspecified mechanism (CMS/HCC) Mixed hyperlipidemia Decreased bone density Age related osteoporosis, unspecified pathological fracture presence Cassius Chambers MD documented in this encounter Plan of Treatment Not on file documented as of this encounter Results * Dexa Axial Skeleton [...] Visit Diagnoses Diagnosis Type 2 diabetes mellitus with hyperglycemia, without long-term current use of insulin (HCC)- Primary Essential hypertension, benign Cerebrovascular accident (CVA), unspecified mechanism (HCC) Mixed hyperlipidemia Decreased bone density Other disorders of bone and cartilage Age related osteoporosis, unspecified pathological fracture presence Post-menopausal Asymptomatic postmenopausal status (age-related) (natural) Abnormal bone density screening Age related osteoporosis, unspecified pathological fracture presence Post-menopausal Asymptomatic postmenopausal status (age-related) (natural) Abnormal bone density screening documented in this encounter Care Teams Pillowcase Cleaner Relationship Specialty Start Date End Date Cassius Chambers MD [address] [place] [address] PCP - General 08/12/16 12/30/20 documented as of this encounter
--- OUTSIDE RECORDS SUMMARY | 2024-02-28 15:36 | XMS_ITS | Encounter Summary ---
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 Gender Identity Female 06/15/2023 1:45 PM CDT Sexual Orientation Straight 06/15/2023 1: 45 PM CDT documented as of this encounter Plan of Treatment Not on file documented as of this encounter Procedures Procedure Name Priority Date/Time Associated Diagnosis Comments EGFR Routine 05/15/2021 1:42 PM CDT Elevated LFTs DIFFERENTIAL AUTO Routine 05/15/2021 1:4 2 PM CDT Non-intractable vomiting with nausea, unspecified vomiting type Elevated LFTs CBC WITH AUTO DIFFERENTIAL Routine 05/15/2021 1:42 PM CDT Non-intractable vomiting with nausea, unspecified vomiting type Elevated LFTs COMPREHENSIVE METABOLIC PANEL Routine 05/15/2021 1:42 PM CDT Elevated LFTs documented in this encounter Results * eGFR (05/15/2021 1:42 PM CDT) [facility] eGFR 55 mL/min/1. 73 m2 SHANTELL GOLDSMITH Comment: Interpretive Data Reference Interval Normal ?>/= [...] interpretive data was last reviewed 2020. Blood 05/15/2021 1:42 PM CDT 05/15/2021 6:09 PM CDT us Haris Lauren MD LAB BLOOD ORDERABLES Final Re sult [facility] [id number] Department [place] [address] * Differential, auto (05/15/2021 1:42 PM CDT) Neutrophil abs 6.0 1.7 - 6.5 K/cumm [facility] Imm gran abs 0.1 0.0 - 0.1 K/cumm [facility] Lymphocyte abs 1.1 0.8 - 3.3 K/cumm [facility] Monocyte abs 0.7 0.2 - 0.8 K/cumm [facility] Eosinophil abs 0.4 0.0 - 0.5 K/cumm [facility] Basophil abs 0.0 0.0 - 0.1 K/cumm [facility] Neutrophil pct 73.1 % [facility] Comment: Interpretive Data Percent cell count reference ranges are not reported, since discordance with absolute values may lead to misinterpretation of CBC data. Current Interpretive Data was last revised on 2017. Imm gran pct 0.6 % [facility] Comment: Interpretive Data Percent cell count reference ranges are not reported, since discordance with absolute values may lead to misinterpretation of CBC data. Current Interpretive Data was last revised on 2017. Lymphocyte pct 13.2 % [facility] Comment: Interpretive Data Percent cell count reference ranges are not reported, since discordance with absolute values may lead to misinterpretation of CBC data. Current Interpretive Data was last revised on 2017. Monocyte pct 8.3 % [facility] Comment: Interpretive Data Percent cell count reference ranges are not reported, since discordance with absolute values may lead to misinterpretation of CBC data. Current Interpretive Data was last revised on 2017. Eosinophil pct 4.3 % [facility] Comment: Interpretive Data Percent cell count reference ranges are not reported, since discordance with absolute values may lead to misinterpretation of CBC data. Current Interpretive Data was last revised on 2017. Basophil pct 0.5 % [facility] Comment: Interpretive Data Percent cell count reference ranges are not reported, since discordance with absolute values may lead to misinterpretation of CBC data. Current Interpretive Data was last revised on 2017. Blood 05/15/2021 1:42 PM CDT 05/15/2021 6:03 PM CDT us Haris Lauren MD LAB BLOOD ORDERABLES Final Re sult [facility] [id number] Department [place] [address] * (ABNORMAL) Comprehensive metabolic panel (05/15/2021 1:42 PM CDT) Pathologist [facility] Sodium 137 135 - 145 mmol/L [facility] Potassium, pl 5.0(H) 3.3 - 4.9 mmol/L [facility] Chloride 107 97 - 110 mmol/L [facility] CO2 19(L) 22 - 32 mmol/L [facility] Anion gap 11 2 - 15 mmol/L [facility] BUN 17 8 - 25 mg/dL [facility] Creatinine 1.02 0.60 - 1.10 mg/dL [facility] Glucose 102 70 - 199 mg/dL [facility] Comment: Interpretive Data Fasting glucose >/= 126 [...] 2017. Calcium 8.3(L) 8.5 - 10.3 mg/dL [facility] Bilirubin, total 0.4 0.1 - 1.2 mg/dL [facility] Protein, pl 6.5 6.5 - 8.5 g/dL [facility] Albumin 3.1(L) 3.5 - 5.0 g/dL [facility] Alk phos 76 40 - 130 Units/L [facility] ALT 81(H) 7 - 45 Units/L [facility] AST 52(H) 10 - 45 Units/L [facility] Blood 05/15/2021 1:42 PM CDT 05/15/2021 6:03 PM CDT Narrative [facility] - 05/15/2021 6:30 PM CDT Has the patient fasted?->No us Haris Lauren MD LAB BLOOD ORDERABLES Final Re sult Performing Organization Address [facility] Co de Phone Number SHANTELL GOLDSMITH [phone] Department [employer] [place] [address] * (ABNORMAL) CBC with auto differential (05/15/2021 1:42 PM CDT) WBC 8.2 3.8 - 9.9 K/cumm [facility] Hgb 12.4 11.9 - 15.5 g/dL [facility] Hct 39.9 35.6 - 45.5 % [facility] Plt 293 150 - 400 K/cumm [facility] MPV 11.0 9.1 - 12.3 fL [facility] RBC 4.33 3.90 - 5.20 M/cumm [facility] MCV 92.1 81.3 - 96.4 fL [facility] MCH 28.6 27.1 - 33.3 pg [facility] MCHC 31.1(L) 32.3 - 35.7 g/dL [facility] RDW CV 14.3 11.1 - 14.9 % [facility] RDW SD 48.9(H) 35.7 - 48.1 fL [facility] NRBC abs 0.00 0.00 - 0.01 K/cumm [facility] Blood 05/15/2021 1:42 PM CDT 05/15/2021 6:03 PM CDT us Haris Lauren MD LAB BLOOD ORDERABLES Final Re sult Performing Organization Address [facility]/ZIP Co de Phone Number SHANTELL GOLDSMITH [phone] Department [employer] [place], [place] [id number] documented in this encounter Visit Diagnoses Diagnosis Non-intractable vomiting with nausea, unspecified vomiting type Elevated LFTs Other abnormal blood chemistry documented in this encounter Care Teams Philosophy Professor Relationship Specialty Start Date End Date Haris Lauren MD PCP - General Family Medicine 12/31/20 06/07/21 documented as of this encounter
--- OUTSIDE RECORDS SUMMARY | 2024-02-28 15:36 | XMS_ITS | Encounter Summary ---
Author Organization [facility] Address [address] [place] [address] Phone Care Team Providers Care Replanter Name Role Phone Haris Lauren MD Primary Care Provider [phone] Reason for Visit * Reason Onset Date Comments Med Refill 03/24/2021 metformin Encounter Details Date Type Department Care Team (Late st Contact Info) Description 03/24/2021 Telephone [facility] Cardiology [address] [facility] [address] [place] [address] [place] [address] Sp Jeffrey MD [address] [facility] [address] [place] [address] Med Refill (metformin) Social History Tobacco Use Types Packs/Day Years [...] on file 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 Services RepresentativeSigned 10:48 AM jeffrey ?? pts calling because pt has changed insurance information and is now using [employer], he says they are needing the okay to send out pts medications, I let him know that mendy got the medication request sent by [employer] approved already but he mentions that he was told that they need the okay to send out the medication ?? Attempted to call [facility], but an automatic recording stated that we needed 8 digit priority code to enter, otherwise nursing could not move forward. Called and spoke with pt's Pedrito and priority code given: [phone]. Called [facility] and automatic message stated that they were having trouble with reaching us for pt's Metformin. Then spoke with [facility] retail pharmacy manager who confirmed that Dr. Lauren had refilled pt's Metformin yesterday and it is being shipped out tomorrow to the pt. Called and spoke with pt's Pedrito making him aware. WARE ENGINEERING SPECIALIST * Telephone Encounter - Radha Dunham - 03/24/2021 10:48 AM CST wojciech pts calling because pt has changed insurance information and is now using [facility], he says they are needing the okay to send out pts medications, I let him know that mendy got the medication request sent by [facility] approved already but he mentions that he was told that they need the okay to send out the medication WARE ENGINEERING SPECIALIST documented in this encounter Plan of Treatment Not on file documented as of this encounter Visit Diagnoses Not on filedocumented in this encounter Care Teams Replanter Relationship Specialty Start Date End Date Haris Lauren MD PCP - General Family Medicine 12/31/20 06/07/21 documented as of this encounter
--- OUTSIDE RECORDS SUMMARY | 2024-02-28 15:36 | XMS_ITS | Encounter Summary ---
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 Gender Identity Female 06/15/2023 1:45 PM CDT Sexual Orientation Straight 06/15/2023 1: 45 PM CDT documented as of this encounter Ordered Prescriptions Prescription Sig Dispense Quantity Refills Last Filled Start Date End Date tiotropium bromide (SPIRIVA RESPIMAT) 2.5 mcg/actuation inhaler Inhale 2 puffs daily 70 mcg of tiotropium 2 03/26/2021 4 pravastatin (PRAVACHOL) 40 mg tablet Take 1 tablet (40 mg total) by mouth daily 90 tablet 03/26/2021 2 metFORMIN (GLUCOPHAGE) 500 mg tablet Take 1 tablet (500 mg total) by mouth 2 (two) times a day with meals 180 tablet 1 03/26/2021 2 losartan (COZAAR) 100 mg tabletIndications: Type 2 diabetes mellitus without complication, without long-term current use of insulin (CMS/HCC) (HCC) Take 1 tablet (100 mg total) by mouth daily 90 tablet 2 03/26/2021 3 fenofibrate (TRIGLIDE) 160 mg tablet Take 1 tablet (160 mg total) by mouth daily 90 tablet 03/26/2021 2 carvediloL (COREG) 25 mg tablet Take 1 tablet (25 mg total) by mouth 2 (two) times a day with meals 180 tablet 2 03/26/2021 2 apixaban (Eliquis) 2.5 mg tablet Take 1 tablet (2.5 mg total) by mouth 2 (two) times a day with meals 180 tablet 2 03/26/2021 2 amLODIPine (NORVASC) 10 mg tablet Take 1 tablet (10 mg total) by mouth daily 90 tablet 2 03/26/2021 2 alendronate (FOSAMAX) 70 mg tablet Take 1 tablet (70 mg total) by mouth every 7 days Take in the morning with a full glass of water, on an empty stomach, and do not take anything else by mouth or lie down for the next 30 min. 12 tablet 3 03/26/2021 2 documented in this encounter Miscellaneous Notes * Telephone Encounter - Katelyn Akers MA - 03/26/2021 10:57 AM CST Spk w/ spouse & notified scripts sent to [facility]. R RELATIONS TEACHER * Addendum Note - Katelyn Akers MA - 03/26/2021 10:55 AM CSTAddended by: KATELYN AKERS on: 03/26/2021 10:55 AM Modules accepted: Orders R RELATIONS TEACHER * Telephone Encounter - Bradley Garcia - 03/25/2021 9:06 AM CST Patient Pedrito called and would like this patient's scripts all be sent to [facility]. He stated that we would have to call them. He was unsure what number to call. He gave me [phone] and [phone] He said they are getting low on pills. And they want all meds transferred to this pharmacy. Please advise R RELATIONS TEACHER documented in this encounter Plan of Treatment Not on file documented as of this encounter Visit Diagnoses Diagnosis Type 2 diabetes mellitus without complication, without long-term current use of insulin (CMS/HCC) (HCC) documented in this encounter Discontinued Medications Medication Sig Discontinue Reason Start Date End Da te tiotropium bromide (SPIRIVA RESPIMAT) 2.5 mcg/actuation inhaler Inhale 2 puffs daily Reorder 12/31/202003/26 alendronate (FOSAMAX) 70 mg tablet Take 1 tablet (70 mg total) by mouth every 7 days Take in the morning with a full glass of water, on an empty stomach, and do not take anything else by mouth or lie down for the next 30 min. Reorder 12/31/2020 03/26/2021 amLODIPine (NORVASC) 10 mg tablet Take 1 tablet (10 mg total) by mouth daily Reorder 03/20/2021 03/26/2021 apixaban (Eliquis) 2.5 mg tablet Take 1 tablet (2.5 mg total) by mouth 2 (two) times a day with meals Reorder 03/20/2021 03/26/2021 carvediloL (COREG) 25 mg tablet Take 1 tablet (25 mg total) by mouth 2 (two) times a day with meals Reorder 03/20/2021 03/26/2021 pravastatin (PRAVACHOL) 40 mg tablet Take 1 tablet (40 mg total) by mouth daily Reorder 03/25/2021 03/26/2021 metFORMIN (GLUCOPHAGE) 500 mg tablet Take 1 tablet (500 mg total) by mouth 2 (two) times a day with meals Reorder 03/25/2021 03/26/2021 losartan (COZAAR) 100 mg tabletIndications:Type 2 diabetes mellitus without complication, without long-term current use of insulin (CMS/HCC) (HCC) Take 1 tablet (100 mg total) by mouth daily Reorder 03/25/2021 03/26/2021 fenofibrate (TRIGLIDE) 160 mg tablet Take 1 tablet (160 mg total) by mouth daily Reorder 03/25/2021 03/26/2021 documented as of this encounter Care Teams Business Development Representative Relationship Specialty Start Date End Date Haris Lauren MD PCP - General Family Medicine 12/31/20 06/07/21 documented as of this encounter
--- OUTSIDE RECORDS SUMMARY | 2024-02-28 15:36 | XMS_ITS | Encounter Summary ---
Author Organization [facility] Medical Group Address [address] [address] Care Team Providers Care Roving Inspector Name Role Phone Haris Lauren MD Primary Care Provider [phone] Encounter Details Date Type Department Care Team (Late st Contact Info) Description 05/15/2021 1:45 PM CDT Lab [facility] Outpatient Lab at [address] [address] Calculus of gallbladder without cholecystitis without obstruction; Drug-induced constipation; Elevated LFTs; Non-intractable vomiting with nausea, unspecified vomiting type Social History Tobacco Use Types Packs/Day [...] on file 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 Gender Identity Female 06/15/2023 1:45 PM CDT Sexual Orientation Straight 06/15/2023 1: 45 PM CDT documented as of this encounter Plan of Treatment Not on file documented as of this encounter Visit Diagnoses Diagnosis Calculus of gallbladder without cholecystitis without obstruction Drug-induced constipation Other constipation Elevated LFTs Other abnormal blood chemistry Non-intractable vomiting with nausea, unspecified vomiting type documented in this encounter Care Teams Roving Inspector Relationship Specialty Start Date End Date Haris Lauren MD PCP - General Family Medicine 12/31/20 06/07/21 documented as of this encounter
--- OUTSIDE RECORDS SUMMARY | 2024-02-28 15:36 | XMS_ITS | Encounter Summary ---
Author Organization [facility] Address [address] [address] Care Team Providers Care Tariff Publishing Agent Name Role Phone Haris Lauren MD Primary Care Provider [phone] Reason for Visit * Reason Comments Follow-up Pt is here to f/u fr gallstone surgery at [facility] on Tuesday. She had her first bowel movement today after 1 wk. Decreased appetite, vomiting. 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 Gender Identity Female 06/15/2023 1:45 PM CDT Sexual Orientation Straight 06/15/2023 1: 45 PM CDT documented as of this encounter Last Filed Vital Signs Vital Sign Reading Time Taken Comments Blood Pressure 136/60 05/14/2021 4:48 PM CDT Pulse 74 05/14/2021 4:48 PM CDT Temperature 36.8 ??C (98.2 ??F) 05/14/2021 4:48 PM CD T Respiratory Rate - - Oxygen Saturation 94% 05/14/2021 4:48 PM CDT Inhaled Oxygen Concentration - - Weight 69.1 kg (152 lb 4.8 oz) 05/14/2021 4:48 P M CDT Height 154.9 cm (5' 1 ) 05/14/2021 4:48 PM CDT Body Mass Index 28.78 05/14/2021 4:48 PM CDT documented in this encounter Ordered Prescriptions Prescription Sig Dispense Quantity Refills Last Filled Start Date End Date ondansetron (Zofran) 4 mg tablet Take 1 tablet (4 mg total) by mouth every 8 (eight) hours as needed for nausea or vomiting 30 tablet 05/14/2021 documented in this encounter Progress Notes * Haris Lauren MD - 05/14/2021 4:30 PM CDT Images from the original note were not included. Transition of Care Visit Patient is seen in the office today for a transition of care visit, after a recent hospitalization.Initial phone contact was confirmed for the transition of care within two business days after discharge, and communication regarding aspects of care, education and support with activities of daily living is documented in the chart. IHaris MD have personally reviewed pertinent Hospital/ER data including [employer] and Care Everywhere if available. This patient's discharge medication list has been reviewed and reconciled with her medication list in the office chart and has also been reviewed with patient and/or caregiver. I have noted any changes. Admission Date: 05/09 Discharge Date: 05/12 Date of Initial Post-discharge Interactive Contact: 05/13, 05/14 Complexity of Medical Decision Making: level 7 day Metabolic Lab Results: Body mass index is 28.78 kg/m??. Glucose: Glucose Date Value Ref Range Status 05/12/2021 97 70 - 199 mg/dL Final Comment: Interpretive Data Fasting glucose >/= 126 mg/dl is diagnostic for diabetes. Fasting is defined as no caloric intake [...] Current interpretive data was last revised 2017. Glucose, POC Date Value Ref Range Status 05/12/2021 93 70 - 199 mg/dL Final Lab Results Component Value Date WBC 9.0 05/12/2021 HGB 10.4 (L) 05/12/2021 HCT 32.6 (L) 05/12/2021 MCV 90.3 05/12/2021 Lab Results Component Value Date GLUCOSE 93 05/12/2021 CALCIUM 7.7 (L) 05/12/2021 SODIUM 139 05/12/2021 POTASSIUM 4.1 05/12/2021 CO2 24 05/12/2021 CHLORIDE 110 05/12/2021 BUNSER 14 05/12/2021 CREATININE 1.10 05/12/2021 Major Procedures and Tests: Major Procedures and Tests Performed During Inpatient Stay: Studies Pending at Discharge (Includes Lab and Radiology) None Interval History: Admission Date: 05/09/2021 Admitting Provider: Michell Lucia MD Discharge Date: 05/12/2021 Hospitalization: Total duration of encounter: 3 days Team: Acute Care Surgery Primary Care Provider: Haris Lauren MD ?? History of Present Illness: 80 y.o. female with PMH T2DM, pHTN, HTN, CVA, MV repair (2014) on Eliquis who presents with dull, RLQ pain, normal WBC and LFTs. CT findings show large stone in GB neck and borderline distended GB. RUQ showing GB distention, borderline wall thickening, impacted stone and associated biliary sludge. ?? OR 05/11: laparoscopic cholecystectomy; small purulent spillage, cx sent Edited by: Sandi Azar PA at 05/12/2021 [id number] ?? Discharge Diagnosis(es): Abdominal pain ?? Secondary Discharge Diagnosis: Principal Problem: Abdominal pain Active Problems: Calculus of gallbladder without cholecystitis without obstruction Type 2 diabetes mellitus (HCC) HTN (hypertension), benign S/P mitral valve repair CVA (cerebral vascular accident) (CMS/HCC) (HCC) Chronic diastolic heart failure (CMS/HCC) (HCC) Resolved Problems: No resolved hospital problems. ? Hospital Course: Calculus of gallbladder without cholecystitis [...] afebrile. Doximity phone call follow up scheduled. ?? Cultures -05/11 OR gallbladder aspirate; GPC in pairs and chains ?? Antibiotics Cefoxitin (05/11- 05/12) Augmentin (05/12 - 05/16) ?? Pathology--pending ?? Chronic diastolic heart failure (CMS/HCC) (HCC) Assessment & Plan Home PRN lasix ?? CVA (cerebral vascular accident) (CMS/HCC) ([facility]) Assessment & Plan -Most likely embolic in nature. Home Eliquis 2.5 mg twice a day -Heparin gtt -Restart eliquis at home tomorrow 05/13 ?? S/P mitral valve repair Assessment & Plan (2014) -last Eliquis 05/09, started Hep gtt -Restart eliquis at home tomorrow 05/13 ?? HTN (hypertension), benign Assessment & Plan - home Coreg and Amlodipine ?? Type 2 diabetes mellitus (HCC) Assessment & Plan (HgbA1C 5.9) -home metformin and Glimepride -Consistent carb diet; insulin sensitive SSI ?? * Abdominal pain Assessment & Plan SEE CALCULUS OF GALLBLADDER ? Active Issues Requiring Follow Up: -FU post-op s/p laparoscopic cholecystectomy ---FU pathology and cultures; DC on augmentin x4d Since being home has small bowel movement today. Poor appetite. Some vomiting. No fever. She is on her home meds. ?? Problem Non-Intractable Vomiting Drug-Induced Constipation Elevated Lfts Current Outpatient Medications Medication Sig Dispense Refill [...] by mouth daily 90 tablet 2 ??? amoxicillin-clavulanate (AUGMENTIN) 875-125 mg per tablet Take 1 tablet by mouth 2 (two) times a day for 8 doses 8 tablet 0 ??? apixaban (Eliquis) 2.5 mg [...] day with meals 180 tablet 1 ??? oxyCODONE (ROXICODONE) 5 mg immediate release tablet Take 1 tablet (5 mg total) by mouth every 4 (four) hours as needed for pain 10 tablet 0 ??? pravastatin (PRAVACHOL) 40 mg tablet Take 1 tablet (40 mg total) by mouth daily 90 tablet 0 ??? senna-docusate (PERICOLACE) 8.6-50 mg Take 1 tablet by mouth daily for 14 days 14 tablet 0 ??? tiotropium bromide (SPIRIVA RESPIMAT) 2.5 mcg/actuation inhaler Inhale 2 puffs daily 70 mcg of tiotropium 2 ??? ondansetron (Zofran) 4 mg tablet Take 1 tablet (4 mg total) by mouth every 8 (eight) hours as needed for nausea or vomiting 30 tablet 0 No current facility-administered medications for this visit. Review of Systems: Review of Systems Constitutional: Positive for fatigue. Negative for fever. Respiratory: Negative for cough and shortness of breath. Cardiovascular: Negative for chest pain and leg swelling. Gastrointestinal: Positive for abdominal pain, nausea and vomiting. Musculoskeletal: Negative for back pain and neck pain. Neurological: Positive for weakness. Negative for seizures and headaches. Psychiatric/Behavioral: Negative for confusion. The patient is nervous/anxious. Physical Exam: BP 136/60 (BP Location: Right arm, Patient Position: Sitting) Pulse 74 Temp 36.8 ??C (98.2 ??F)(Oral) Ht 154.9 cm (5' 1 ) Wt 69.1 kg (152 lb 4.8 oz) SpO2 94% BMI 28.78 kg/m?? Physical Exam Constitutional: Appearance: She is [...] place, and time. Psychiatric: Speech: Speech normal. Assessment/Plan Diagnoses and all orders for this visit: Calculus of gallbladder without cholecystitis without obstruction (Primary) - status post surgery. Discharged home. Complete Augmentin. CBC Chem 12 to reassess kidney status and liver functions. Zofran 4 mg p.r.n. for nausea. Will try MiraLax 1 scoop 8 oz of fluids for better bowel movement. Is taking pain meds on a p.r.n. basis. No fever. Non-intractable vomiting with nausea, unspecified vomiting type - CBC with auto differential; Future - see above - Zofran 4 mg prn Drug-induced constipation - add Miralax daily, colace prn Elevated LFTs - CBC with auto differential; Future - Comprehensive metabolic panel; Future - CBC chem12 , ordered Hypertension - stable Hyperlipidemia - stable History of CVA - stable TIERRA - stable Other orders - ondansetron (Zofran) 4 mg tablet; Take 1 tablet (4 mg total) by mouth every 8 (eight) hours as needed for nausea or vomiting Coordination of Home care services and follow-up with specialist appointments confirmed. Instructions have been provided to and reviewed with the patient/career development engineer prior to discharge. Haris Lauren MD Orders Placed This Encounter ??? CBC with auto differential Standing Status: Future Standing Expiration Date: 05/14/2022 ??? Comprehensive metabolic panel Standing Status: Future Standing Expiration Date: 05/14/2022 Order Specific Question: Has the patient fasted? Answer: No ??? ondansetron (Zofran) 4 mg tablet Sig: Take 1 tablet (4 mg total) by mouth every 8 (eight) hours as needed for nausea or vomiting Dispense: 30 tablet Refill: 0 documented in this encounter Miscellaneous Notes * Addendum Note - Kenyetta Joy - 05/14/2021 4:30 PM CDTAddended by: KENYETTA JOY on: 05/15/2021 01:42 PM Modules accepted: Orders documented in this encounter Plan of Treatment Not on file documented as of this encounter Results * (ABNORMAL) CBC with auto differential (05/15/2021 1:42 PM CDT) Pathologist [facility] WBC 8.2 3.8 - 9.9 K/cumm CERNER [...] MD LAB BLOOD ORDERABLES Final Re sult [facility] [id number] [address] Department [place] [address] * (ABNORMAL) Comprehensive metabolic panel (05/15/2021 1:42 PM CDT) Sodium 137 135 - 145 mmol/L CERNER [...] MD LAB BLOOD ORDERABLES Final Re sult [facility] [id number] [address] Department [place] [address] documented in this encounter Visit Diagnoses Diagnosis Calculus of gallbladder without cholecystitis without obstruction- Primary Non-intractable vomiting with nausea, unspecified vomiting type Drug-induced constipation Other constipation Elevated LFTs Other abnormal blood chemistry Non-intractable vomiting with nausea, unspecified vomiting type Elevated LFTs Other abnormal blood chemistry documented in this encounter Discontinued Medications Medication Sig Discontinue Reason Start Date End Da te acetaminophen 500 mg capsule Take 2 capsules (1,000 mg total) by mouth every 6 (six) hours for 30 doses Therapy completed 05/12/2021 05/14/2021 documented as of this encounter Care Teams Tariff Publishing Agent Relationship Specialty Start Date End Date Haris Lauren MD PCP - General Family Medicine 12/31/20 06/07/21 documented as of this encounter
--- OUTSIDE RECORDS SUMMARY | 2024-02-28 15:36 | XMS_ITS | Encounter Summary ---
Author Organization [facility] Healthcare Address [address] [place] [address] Care Team Providers Care Consulting Sales Executive Name Role Phone Haris Lauren MD Primary Care Provider [phone] Reason for Visit * Reason Comments Abdominal Pain Encounter Details Date Type Department Care Team (Latest Contact Info) Description 05/09/2021 2:48 PM CANCELLATION CLERK - 05/12/2021 1:34 PM CDT Hospital Encounter [facility] [address] [place] [address] Anthony Beth MD [address] [facility] [address] [place] [address] Sheridan Haney MD [address] [place] [address] Stephanie Castelan MD [address] [place] [address] Michell Lucia MD [address] [facility] [phone] [place] [address] Abdominal pain (Primary Dx); Biliary calculus of other site without obstruction; Calculus of gallbladder without cholecystitis without obstruction Discharge Disposition: Discharge to home or self [...] on file Legal Sex Female 11:30 PM CANCELLATION CLERK Gender Identity Female 06/15/2023 1:45 PM CDT Sexual Orientation Straight 06/15/2023 1: 45 PM CDT documented as of this encounter Last Filed Vital Signs Vital Sign Reading Time Taken Comments Blood Pressure 152/66 05/12/2021 8:25 AM CDT Pulse 78 05/12/2021 8:25 AM CDT Temperature 36.4 ??C (97.5 ??F) 05/12/2021 4:23 AM CD T Respiratory Rate 20 05/12/2021 4:23 AM CDT Oxygen Saturation 92% 05/12/2021 10: 19 AM CDT Inhaled Oxygen Concentration - - Weight 61.2 kg (134 lb 14.7 oz) 05/10/2021 1:45 AM CANCELLATION CLERK Height 154.9 cm (5' 0.98 ) 05/10/2021 1 2:30 AM CANCELLATION CLERK Body Mass Index 25.51 05/10/2021 12:30 AM CANCELLATION CLERK documented in this encounter Discharge Diagnoses Diagnosis Calculus of gallbladder with acute cholecystitis without obstruction - CALCULUS OF GALLBLADDER WITH ACUTE CHOLECYSTITIS WITHOUT OBSTRUCTION Chronic diastolic (congestive) heart failure (HCC) - CHRONIC DIASTOLIC (CONGESTIVE) HEART FAILURE Hydrops of gallbladder - HYDROPS OF GALLBLADDER Type 2 diabetes mellitus without complications (CMS/HCC) (HCC) - TYPE 2 DIABETES MELLITUS WITHOUT COMPLICATIONS Hyperlipidemia, unspecified - HYPERLIPIDEMIA, UNSPECIFIED Hypertensive heart disease with heart failure (CMS/HCC) (HCC) - HYPERTENSIVE HEART DISEASE WITH HEART FAILURE Unspecified hypertensive heart disease with heart failure Pulmonary hypertension, unspecified (HCC) - PULMONARY HYPERTENSION, UNSPECIFIED Personal history of transient ischemic attack (TIA), and cerebral infarction without residual deficits - PERSONAL HISTORY OF TRANSIENT ISCHEMIC ATTACK (TIA), AND CEREBRAL INFARCTION WITHOUT RESIDUAL DEFICI Age-related osteoporosis without current pathological fracture - AGE-RELATED OSTEOPOROSIS WITHOUT CURRENT PATHOLOGICAL FRACTURE retirement (current) use of anticoagulants - [facility] (CURRENT) USE OF ANTICOAGULANTS Long-term (current) 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 (CURRENT) USE OF ORAL HYPOGLYCEMIC DRUGS Acquired absence of left breast and nipple - ACQUIRED ABSENCE OF LEFT BREAST AND NIPPLE Acquired absence of both cervix and uterus - ACQUIRED ABSENCE OF BOTH CERVIX AND UTERUS Contact with and (suspected) exposure to covid-19 - CONTACT WITH AND (SUSPECTED) EXPOSURE TO COVID-19 documented in this encounter Discharge Summaries * Sandi Azar PA - 05/12/2021 9:53 AM CDT [facility] Acute Care Surgery Inpatient Discharge Summary This is a clinical resume for patient Shavon Carter Elizabeth for attending Stephanie Castelan MD Admission Date: [...] PRN lasix CVA (cerebral vascular accident) (CMS/HCC) (HCC) Assessment & Plan -Most likely embolic in [...] on augmentin x4d Follow up: --Appointment: ACES SPEAKER MOUNTER follow up Doximity phone call scheduled --Pathology/Cultures: [...] you have any questions/concerns please call the [facility] office at [phone] or if you have something urgent please [...] can start to take your blood thinner, Liliana, tomorrow (05/13) morning. [facility] Acute Care Surgery Discharge Instructions Care After [...] incisions (Neosporin or Vaseline) ??? Only take [id number] or prescription medicines for pain, discomfort, or [...] Up Call [facility] at [phone] Follow up Future Appointments Date Time Provider Department Center 05/18/2021 9:30 AM Sp Madrid MD [facility] Cardiology 05/27/2021 1:00 PM [facility] ACCS SPEAKER MOUNTER [facility]H ACCS [facility] 07/01/2021 10:30 AM Haris Lauren MD PCP [facility] 12/31/2021 11:00 AM Haris Lauren [...] RN - 05/12/2021 1:34 PM CDT 05/12/21 1439 Discharge Summary Chart reviewed For Medical Necessity [...] home. If needed, my mobile phone is [phone] * Michelle Hudson DPT - 05/12/2021 7:57 AM CDT Physical [...] setting. Prior Function Prior Function Level of [place]: Independent functional transfers, Independent with ambulation Lives With: Spouse Receives Help From: Spouse/Significant other, Family (multimedia services manager assist) Fall within the last 6 months: [...] treatment team and contact the PT or FIELD STAFF MANAGER currently assigned to this patient. If a physical therapy clinician is not assigned to this patient, please call [phone]. * Nancy Nelson MD - 05/11/2021 10:29 AM CDT ACCS Post Op Check Note Shavon Singh 1940 [id number] 80 y.o. female with PMH s/f T2DM, [...] Carbohydrate Diet effective now Question Answer Comment ([facility]) Diet type Clear Liquid ([facility]) Diet type Restricted Diabetic: Consistent [...] Insurance Coverage: Medicare A & B and [facility] Prescription Coverage: yes Pharmacy: [facility] Primary Care Provider: Haris Lauren MD Prior to Admission: Primary Caregiver: Self Support System: Spouse/Significant Other Support system contact info (name, phone, availablity): greer Major [phone] Home Care Services: No Durable Medical Equipment: [...] Collaboration with patient, MD, direct care nurse, Cosmetic Dentist, Nurse Coordinator and other members of the health care team to assure needed interventions completed. 2. Return patient to optimal level of self-care post discharge. 3. Operations Business Partner will follow for Discharge Planning - interventions [...] Padilla MD - 05/09/2021 5:48 PM CST [facility] Acute Care Surgery Consultation Encounter Date: 05/09/21 Patient Identification Patient's Primary Care Physician: Haris Lauren MD Name: Shavonjuice Singh Age: 80 y.o. Sex: female Reason [...] Michell Lucia MD at 05/09/2021 10:48 PM CANCELLATION CLERK ELLATION CLERK ELLATION CLERK Associated attestation - Michell Lucia MD - 05/09/2021 10:48 PM CANCELLATION CLERK I have seen and examined the patient [...] and oriented to person, place, and time. [facility] Medical Decision Making Differential Diagnosis or Management [...] Summary of Care ED Course as of 05/10/211905 Time: 05/09 1629 Comment: 80 year old [...] abdomen/pelvis. By: Anthony Beth MD Time: 05/09 5482 Comment: IMPRESSION: ?? 1. Borderline gallbladder distention [...] surgery. By: Michell Luo MD Time: 05/09 7066 Comment: Surgery will discuss admission with patient and family. By: Michell Luo MD Time: 05/09 6916 Comment: Sign out: 80F p/w RUQ symptoms plan for admission. By: Sheridan Haney MD Abdominal pain Biliary calculus of other site without obstruction Calculus of gallbladder without cholecystitis without obstruction Eduardo Brush MD Resident 05/09/211902 I have seen and examined the patient on 05/09/2021. I agree with the findings and plan of care as documented in the resident's note. Anthony Beth MD 05/10/21 190 ELLATION CLERK * Sandi Wooten RN - 05/09/2021 1:14 PM CST Patient here with right upper abdominal/flank pain. She states the pain started last night around 1700 but her states the pain has been hurting her for the past couple of days. She denies N/V/D. She also denies any urinary problems. PMH of cance,r DM, HTN and hyperlipidemia. ELLATION CLERK documented in this encounter Miscellaneous Notes * [...] medical record. Andrew Kincaid MD, CCDS Clinical Physics Technical Officer Email: [email or web address] * Plan of Care - Ariadna Warren, JETT - 05/12/2021 8:44 AM CDT Patient is [...] AM CDT OPERATIVE REPORT Shavon Singh 1940 [id number] DATE OF SERVICE: 05/11/21 SURGEON: Stephanie Castelan MD CLOTHES MODEL: Rivka Aranda, PGY2 PROCEDURE: Laparoscopic cholecystectomy PREOPERATIVE DIAGNOSIS: impacted [...] fashion. A time-out was performed according to [facility] policy. A Veress needle was [...] Resident - Assisting Anesthesiologist: Galdino Isaac MD NEUROPSYCHIATRIST: Brigid Meyers CRNA Pump Station Operator: Ingrid Hou RN Scrub Relief: Khurram Villar [...] : GALLBLADDER Tissue Gallbladder SURGICAL PATHOLOGY Stephanie Castelan MD 05/11/2021 1009 Implants: Nothing was implanted [...] CDT Associated Problem(s): S/P mitral valve repair (2014) -last Eliquis 05/09, started Hep gtt [...] Michell Luo MD - 05/09/2021 6:52 PM CANCELLATION CLERK ED Re-evaluation TRANSITION OF CARE I, Michell [...] US. By: Michell Luo MD Time: 05/09 6862 Value: US RUQ Comment: Borderline findings of [...] Anthony Beth MD - 05/09/2021 3:31 PM CANCELLATION CLERK Associated Order(s): ECG 12 lead Procedure ECG [...] the ED Anthony Beth MD 05/09/21 1535 ELLATION CLERK documented in this encounter Plan of [...] GLUCOSE DEVICE Routine 05/10/2021 1 2:01 AM CANCELLATION CLERK TROPONIN I HIGH-SENSITIVITY 4-HOUR Timed 05/09/2021 9:22 PM CANCELLATION CLERK US RUQ ED 05/09/2021 8:35 PM CANCELLATION CLERK XR CHEST PA LATERAL 2 VIEWS ED 05/09/2021 7:21 PM CANCELLATION CLERK INFLUENZA A/B, RSV, AND COVID-19 PCR Routine 05/09/2021 6:20 PM CANCELLATION CLERK TROPONIN I HIGH-SENSITIVITY 2-HOUR Timed 05/09/2021 6:[address] ABDOMEN PELVIS W CONTRAST ED 05/09/2021 5:10 PM CANCELLATION CLERK POCT GLUCOSE DEVICE Routine 05/09/2021 4 :51 PM CANCELLATION CLERK ECG 12-LEAD Routine 05/09/2021 3:31 PM CANCELLATION CLERK URINALYSIS AND REFLEX TO MICROSCOPIC AND CULTURE Routine 05/09/2021 3:08 PM CANCELLATION CLERK URINALYSIS, MICROSCOPIC ONLY Routine 05/09/2021 3:08 PM CANCELLATION CLERK TROPONIN I HIGH-SENSITIVITY SERIES (BASELINE, 2HR, 4HR, 6HR) STAT 05/09/2021 3:07 PM CANCELLATION CLERK EGFR STAT 05/09/2021 3:07 PM CANCELLATION CLERK DIFFERENTIAL AUTO STAT 05/09/2021 3:0 7 PM CANCELLATION CLERK CBC WITH AUTO DIFFERENTIAL STAT 05/09/2021 3:07 PM CANCELLATION CLERK LIPASE STAT 05/09/2021 3:07 PM CANCELLATION CLERK COMPREHENSIVE METABOLIC PANEL STAT 05/09/2021 3:07 PM CANCELLATION CLERK POCT GLUCOSE DEVICE Routine 05/09/2021 1 :21 PM CANCELLATION CLERK documented in this encounter Results * POCT glucose (05/12/2021 8:12 AM CDT) Glucose, POC 93 70 - 199 mg/dL [facility] Blood 05/12/2021 8:12 AM CDT 05/12/2021 8:12 AM CDT us Stephanie Castelan MD LAB POCT ORDERABLES - DACIA CE Final Result Performing Organization Address [facility]/ZIP Co de Phone Number [facility] Department [place] [address] * POCT glucose (05/12/2021 4:45 AM CDT) Glucose, POC 92 70 - 199 mg/dL [facility] Blood 05/12/2021 4:45 AM CDT 05/12/2021 4:45 AM CDT us Sheridan Haney MD LAB POCT ORDERABLES - DEVICE Fin al Result [facility] Department [place] [address] * (ABNORMAL) eGFR (05/12/2021 4:30 AM CDT) [facility] eGFR 50(L) 90 - 130 mL/min/1. 73 m2 SHANTELL [...] MD LAB BLOOD ORDERABLES Final Resul t SHANTELL DAVIS [facility] Department [place] [address] * (ABNORMAL) aPTT (05/12/2021 4:30 AM CDT) [facility] aPTT 57(H) 27 - [address] [facility] Comment: Interpretive Data Therapeutic heparin range: 60.0 - 94.0 seconds. Based on correlation with therapeutic heparin activity range of 0.3-0.7 Units/mL. Current interpretive data was last revised on 2020. Blood 05/12/2021 4:30 AM CDT 05/12/2021 4:50 AM CDT Narrative [facility] - 05/12/2021 5:00 AM CDT Draw STAT PTT 6 hrs after initiation of heparin infusion, draw STAT PTT 6 hours after each dose/rate change, and every 6 hours until 2 consecutive PTTs are within therapeutic range. Once two consecutive PTT's are therapeutic (60-94.9 seconds), then draw PTT every AM until heparin is discontinued. Result Mary Haney MD LAB BLOOD ORDERABLES Final Resul t Performing Organization Address City/[facility] Co de Phone Number [facility] Department [place] [address] * Phosphorus (05/12/2021 4:30 AM CDT) Phosphorus, pl 3.0 2.3 - 4.5 mg/dL [facility] Blood 05/12/2021 4:30 AM CDT 05/12/2021 4:40 AM CDT Result Mary Haney MD LAB BLOOD ORDERABLES Final Resul t Performing Organization Address City/State/[facility] Co de Phone Number [facility] Department [place] [address] * Magnesium (05/12/2021 4:30 AM CDT) Magnesium 2.2 1.4 - 2.5 mg/dL [facility] Blood 05/12/2021 4:30 AM CDT 05/12/2021 4:40 AM CDT us Sheridan Haney MD LAB BLOOD ORDERABLES Final Resul t [facility] Department [place] [address] * (ABNORMAL) Comprehensive metabolic panel (05/12/2021 4:30 AM CDT) Sodium 139 135 - 145 mmol/L [facility] Potassium, pl 4.1 3.3 - 4.9 mmol/L [facility] Chloride 110 97 - 110 mmol/L [facility] CO2 24 22 - 32 mmol/L [facility] Anion gap 5 2 - 15 mmol/L [facility] BUN 14 8 - 25 mg/dL [facility] Creatinine 1.10 0.60 - 1.10 mg/dL [facility] Glucose 97 70 - 199 mg/dL [facility] Comment: Interpretive Data Fasting glucose >/= [...] 2017. Calcium 7.7(L) 8.5 - 10.3 mg/dL [facility] Bilirubin, total 0.6 0.1 - 1.2 mg/dL [facility] Protein, pl 5.5(L) 6.5 - 8.5 g/dL [facility] Albumin 3.0(L) 3.5 - 5.0 g/dL [facility] Alk phos 37(L) 40 - 130 Units/L [facility] ALT 154(H) 7 - 45 Units/L [facility] Comment:Reviewed AST 254(H) 10 - 45 Units/L [facility] Comment:Reviewed Blood 05/12/2021 4:30 AM CDT 05/12/2021 4:40 AM CDT Sheridan Haney MD LAB BLOOD ORDERABLES Final Resul t Performing Organization Address [facility] Co de Phone Number [facility] Department [place] [address] * (ABNORMAL) CBC without differential (05/12/2021 4:30 AM CDT) WBC 9.0 3.8 - 9.9 K/cumm [facility] Hgb 10.4(L) 11.9 - 15.5 g/dL [facility] Hct 32.6(L) 35.6 - 45.5 % [facility] Plt 152 150 - 400 K/cumm [facility] MPV 11.3 9.1 - 12.[address] [facility] RBC 3.61(L) 3.90 - 5.20 M/cumm [facility] MCV 90.3 81.3 - 96.[address] [facility] MCH 28.8 27.1 - 33.[address] [facility] MCHC 31.9(L) 32.3 - 35.7 g/dL [facility] RDW CV 14.4 11.1 - 14.9 % [facility] RDW SD 47.3 35.7 - 48.[address] [facility] NRBC abs 0.00 0.00 - 0.01 K/cumm [facility] Blood 05/12/2021 4:30 AM CDT 05/12/2021 4:40 AM CDT Sheridan Haney MD LAB BLOOD ORDERABLES Final Resul t Performing Organization Address [facility]/ZIP Co de Phone Number [facility] Department [place] [address] * POCT glucose (05/12/2021 1:41 AM CDT) Glucose, POC 107 70 - 199 mg/dL [facility] Blood 05/12/2021 1:41 AM CDT 05/12/2021 1:41 AM CDT us Sheridan Haney MD LAB POCT ORDERABLES - DEVICE Fin al Result Performing Organization Address [facility] Co de Phone Number [facility] [employer] [place] [address] * POCT glucose (05/11/2021 10:21 PM CDT) Glucose, POC 124 70 - 199 mg/dL [facility] Blood 05/11/2021 10:2 1 PM CDT 05/11/2021 10:21 PM CDT Sheridan Haney MD LAB POCT ORDERABLES - DEVICE Fin al Result Performing Organization Address [facility] de Phone Number [facility] [employer] [place] [address] * aPTT (05/11/2021 8:54 PM CDT) aPTT 33 27 - [address] [facility] Comment: Interpretive Data Therapeutic heparin range: 60.0 - 94.0 seconds. Based on correlation with therapeutic heparin activity range of 0.3-0.7 Units/mL. Current interpretive data was last revised on 2020. Blood 05/11/2021 8:5 4 PM CDT 05/11/2021 9:17 PM CDT Narrative [facility] - 05/11/2021 9:26 PM CDT Draw [...] ORDERABLES Final Resul t Performing Organization Address [facility] de Phone Number [facility] [place] [address] * POCT glucose (05/11/2021 5:35 PM CDT) Glucose, POC 151 70 - 199 mg/dL [facility] Blood 05/11/2021 5:35 PM CDT 05/11/2021 5:35 PM CDT Sheridan Haney MD LAB POCT ORDERABLES - DEVICE Fin al Result Performing Organization Address City/[facility] [place] [address] * POCT glucose (05/11/2021 10:38 AM CDT) Glucose, POC 152 70 - 199 mg/dL [facility] Blood 05/11/2021 10:3 8 AM CDT 05/11/2021 10:38 AM CDT Sheridan Haney MD LAB POCT ORDERABLES - DEVICE Fin al Result Performing Organization Address [facility] de Phone Number [facility] [place] [address] * Surgical pathology (05/11/2021 10:09 AM CDT) Tissue (Gallbladder) 05/11/2021 10:09 AM CDT Narrative PATHOLOGY [facility] - 05/14/2021 8:26 PM CDT EPIC results best viewed via link to PDF [facility] [place] [address] Note to Patients: This report may contain [...] Gender: ??F : ??1940 (Age: 80) Address: ??[address] [place] [address] Hospital #: ??[id number] Taken:05/11/2021 Received:05/11/2021 Reported: 05/14/2021 Patient Type: [facility] Inpatient ?? Service: Surgery Location: [place] [address] Physician(s): ??Stephanie Alberto M.D. Dr. Haris Lauren [...] Microscopic examination substantiates the above cited diagnosis. SCOTTIE Grimes History: The patient is 80-year-old woman presenting [...] margin- blue) 05/11/2021 14:16 PA(s): CONNIE Caruso ([facility]) By this signature, I attest that the above diagnosis is based upon my personal examination of the slides(and/or other material). Addenda/Procedures The performance characteristics of some immunohistochemical stains, fluorescence in-situ hybridization tests and immunophenotyping by flow cytometry cited in this report (if any) were determined by the Surgical Pathology and Flow Cytometry Departments at [facility] as part of an ongoing air quality engineer program and in compliance with federally mandated [...] Surgical Pathology and Flow Cytometry Departments of [facility]. ??It has not been cleared or approved by the U. S. Food and Drug Administration. IMAGES AND SCANNED DOCUMENTS, IF INCLUDED, ONLY VIEWABLE IN PDF VERSION OF REPORT Stephanie Castelan MD LAB PATHOLOGY ORDERABLES F inal Result PATHOLOGY [facility] [address]rd Floor [place], [place] [phone] * (ABNORMAL) Aerobic and anaerobic culture and gram stain Aspirate Gallbladder (05/11/2021 8:54 AM CDT) Direct Specimen Exam Stain: Abundant polymorphonuclear leukocytes seen. Abundant Gram Positive Cocci in pairs and chains SHANTELL [facility] Report Final Report: Abundant Streptococcus anginosus (.) SHANTELL [facility] Organism STREPTOCOCCUS ANGINOSUS SHANTELL [facility] Aspirate (Gallbladder) 05/11/2021 8:54 AM CDT 05/11/2021 12:04 PM CDT Narrative [facility] - 05/14/2021 2:34 PM CDT GALLBLADDER ASPIRATE Testing performed by [facility] Microbiology Laboratory ([phone]) Specimens submitted from normally sterile body sites [...] Streptococcus anginosus Vancomycin (VICKIE) INTERPRETAT ION Susceptible us Stephanie Castelan MD LAB MICROBIOLOGY - GENERAL ORDERABLES Final Result [facility] Department [place] [address] * POCT glucose (05/11/2021 8:53 AM CDT) Glucose, POC 122 70 - 199 mg/dL [facility] Blood 05/11/2021 8:53 AM CDT 05/11/2021 8:53 AM CDT us Sheridan Haney MD LAB POCT ORDERABLES - DEVICE Fin al Result [facility] Department [place] [address] * POCT glucose (05/11/2021 6:16 AM CDT) Pathologist [facility] Glucose, POC 150 70 - 199 mg/dL [facility] Blood 05/11/2021 6:16 AM CDT 05/11/2021 6:16 AM CDT us Sheridan Haney MD LAB POCT ORDERABLES - DEVICE Fin al Result [facility] Department [place] [address] * (ABNORMAL) eGFR (05/11/2021 3:21 AM CDT) [facility] eGFR 62(L) 90 - 130 mL/min/1. [address] [facility] Comment: Interpretive Data Reference Interval Normal [...] 3:21 AM CDT 05/11/2021 5:19 AM CDT Michell Lucia MD LAB BLOOD ORDERABLES Miranda l Result Performing Organization Address City/[facility] Co de Phone Number [facility] [place] [address] * aPTT (05/11/2021 3:21 AM CDT) aPTT 36 27 - [address] [facility] Comment: Interpretive Data Therapeutic heparin range: 60.0 - 94.0 seconds. Based on correlation with therapeutic heparin activity range of 0.3-0.7 Units/mL. Current interpretive data was last revised on 2020. Blood 05/11/2021 3:21 AM CDT 05/11/2021 5:27 AM CDT Narrative [facility] - 05/11/2021 5:35 AM CDT Draw [...] ORDERABLES Final Resul t Performing Organization Address [facility] Co de Phone Number [facility] [employer] [place] [address] * Phosphorus (05/11/2021 3:21 AM CDT) Phosphorus, pl 2.3 2.3 - 4.5 mg/dL [facility] Blood 05/11/2021 3:2 1 AM CDT 05/11/2021 5:19 AM CDT Sheridan Haney MD LAB BLOOD ORDERABLES Final Resul t Performing Organization Address [facility] Co de Phone Number [facility] [place] [address] * Magnesium (05/11/2021 3:21 AM CDT) Magnesium 1.7 1.4 - 2.5 mg/dL [facility] Blood 05/11/2021 3:21 AM CDT 05/11/2021 5:19 AM CDT Sheridan Haney MD LAB BLOOD ORDERABLES Final Resul t [facility] Department [place] [address] * (ABNORMAL) Comprehensive metabolic panel (05/11/2021 3:21 AM CDT) Pathologist [facility] Sodium 137 135 - 145 mmol/L [facility] Potassium, pl 4.2 3.3 - 4.9 mmol/L [facility] Chloride 108 97 - 110 mmol/L [facility] CO2 21(L) 22 - 32 mmol/L [facility] Anion gap 8 2 - 15 mmol/L [facility] BUN 13 8 - 25 mg/dL [facility] Creatinine 0.92 0.60 - 1.10 mg/dL [facility] Glucose 160 70 - 199 mg/dL [facility] Comment: Interpretive Data Fasting glucose >/= [...] 2017. Calcium 8.4(L) 8.5 - 10.3 mg/dL [facility] Bilirubin, total 0.8 0.1 - 1.2 mg/dL [facility] Protein, pl 6.7 6.5 - 8.5 g/dL [facility] Albumin 3.7 3.5 - 5.0 g/dL [facility] Alk phos 41 40 - 130 Units/L [facility] ALT 33 7 - 45 Units/L [facility] AST 59(H) 10 - 45 Units/L [facility] Blood 05/11/2021 3:21 AM CDT 05/11/2021 5:19 AM CDT us Sheridan Haney MD LAB BLOOD ORDERABLES Final Resul t Performing Organization Address City/[facility]/ZIP Co de Phone Number [facility] Department of [employer] [address] * (ABNORMAL) CBC without differential (05/11/2021 3:21 AM CDT) WBC 11.7(H) 3.8 - 9.9 K/cumm [facility] Hgb 12.2 11.9 - 15.5 g/dL [facility] Hct 38.7 35.6 - 45.5 % [facility] Plt 182 150 - 400 K/cumm [facility] MPV 11.7 9.1 - 12.[address] [facility] RBC 4.28 3.90 - 5.20 M/cumm [facility] MCV 90.4 81.3 - 96.[address] [facility] MCH 28.5 27.1 - 33.[address] [facility] MCHC 31.5(L) 32.3 - 35.7 g/dL [facility] RDW CV 14.1 11.1 - 14.9 % [facility] RDW SD 46.8 35.7 - 48.[address] [facility] NRBC abs 0.00 0.00 - 0.01 K/cumm [facility] Blood 05/11/2021 3:21 AM CDT 05/11/2021 5:19 AM CDT us Sheridan Haney MD LAB BLOOD ORDERABLES Final Resul t [facility] Department of [employer] [address] * POCT glucose (05/11/2021 3:10 AM CDT) Glucose, POC 146 70 - 199 mg/dL [facility] Blood 05/11/2021 3:10 AM CDT 05/11/2021 3:10 AM CDT Sheridan Haney MD LAB POCT ORDERABLES - DEVICE Fin al Result Performing Organization Address City/[facility] Co de Phone Number [facility] Department [place] [address] * POCT glucose (05/10/2021 11:15 PM CDT) [facility] Glucose, POC 168 70 - 199 mg/dL [facility] Blood 05/10/2021 11:1 5 PM CDT 05/10/2021 11:15 PM CDT us Sheridan Haney MD LAB POCT ORDERABLES - DEVICE Fin al Result Performing Organization Address City/[facility] Co de Phone Number [facility] Department [place] [address] * (ABNORMAL) POCT glucose (05/10/2021 8:25 PM CDT) [facility] Glucose, POC 201(H) 70 - 199 mg/dL [facility] Blood 05/10/2021 8:25 PM CDT 05/10/2021 8:25 PM CDT Sheridan Haney MD LAB POCT ORDERABLES - DEVICE Fin al Result Performing Organization Address City/[facility] Co de Phone Number [facility] [place] [address] * (ABNORMAL) POCT glucose (05/10/2021 4:37 PM CDT) Glucose, POC 221(H) 70 - 199 mg/dL [facility] Blood 05/10/2021 4:37 PM CDT 05/10/2021 4:37 PM CDT Sheridan Haney MD LAB POCT ORDERABLES - DEVICE Fin al Result Performing Organization Address City/[facility]/ZIP Co de Phone Number [facility] [place] [address] * Critical Result Callback Hematology (05/10/2021 2:17 PM CDT) Pathologist [facility] Date Notified [id number] [facility] Time Notified [address] [facility] TestName aPTT [facility] Called/Read Back Lele [facility] Credentials RN [facility] Called By omar [facility] Blood 05/10/2021 2:17 PM CDT 05/10/2021 4:49 PM CDT us Shira Devine NP LAB BLOOD ORDERABLES Final Result Performing Organization Address [facility] Co de Phone Number [facility] [place] [address] * (ABNORMAL) aPTT (05/10/2021 2:17 PM CDT) Pathologist [facility] aPTT >150(C) 27 - [address] [facility] Comment: No clot detected in sample Repeated and verified Interpretive Data Therapeutic heparin range:60.0 - 94.0 sec based on correlation with therapeutic heparin activity range of 0.3 -0.7 Units/mL. Current interpretive data was last revised on 2011. Blood 05/10/2021 2:17 PM CDT 05/10/2021 4:45 PM CDT Narrative [facility] - 05/10/2021 5:17 PM CDT Draw [...] ORDERABLES Final Resul t Performing Organization Address [facility] Co de Phone Number [facility] of [employer] [address] * (ABNORMAL) POCT glucose (05/10/2021 12:25 PM CDT) Glucose, POC 209(H) 70 - 199 mg/dL [facility] Blood 05/10/2021 12:2 5 PM CDT 05/10/2021 12:25 PM CDT Sheridan Haney MD LAB POCT ORDERABLES - DEVICE Fin al Result Performing Organization Address [facility] de Phone Number [facility] [place] [address] * Type and screen (05/10/2021 12:23 PM CDT) Ramón, indirect Negative [facility] ABO Rh O Negative [facility] Blood 05/10/2021 12:2 3 PM CDT 05/10/2021 2:28 PM CDT Narrative [facility] - 05/10/2021 3:28 PM CDT Has the patient had Daratumumab or Isatuximab in the past 6 months?->Unknown Shira Devine NP LAB BLOOD BANK TEST ORDERA BLES Final Result Performing Organization Address [facility] [place] [address] * POCT glucose (05/10/2021 8:17 AM CDT) Glucose, POC 137 70 - 199 mg/dL [facility] Blood 05/10/2021 8:17 AM CDT 05/10/2021 8:17 AM CDT Sheridan Haney MD LAB POCT ORDERABLES - DEVICE Fin al Result Performing Organization Address City/[facility]/ZIP Co de Phone Number [facility] Department [place] [address] * (ABNORMAL) CBC without differential (05/10/2021 7:13 AM CDT) [facility] WBC 9.0 3.8 - 9.9 K/cumm [facility] Hgb 11.6(L) 11.9 - 15.5 g/dL [facility] Hct 36.0 35.6 - 45.5 % [facility] Plt 173 150 - 400 K/cumm [facility] MPV 12.0 9.1 - 12.[address] [facility] RBC 4.02 3.90 - 5.20 M/cumm [facility] MCV 89.6 81.3 - 96.[address] [facility] MCH 28.9 27.1 - 33.[address] [facility] MCHC 32.2(L) 32.3 - 35.7 g/dL [facility] RDW CV 14.2 11.1 - 14.9 % [facility] RDW SD 46.7 35.7 - 48.[address] [facility] NRBC abs 0.00 0.00 - 0.01 K/cumm [facility] Blood 05/10/2021 7:13 AM CDT 05/10/2021 9:53 AM CDT Narrative [facility] - 05/10/2021 10:00 AM CDT Baseline prior to heparin initiation Shira Devine NP LAB BLOOD ORDERABLES Final Result [facility] Department [place] [address] * POCT glucose (05/10/2021 5:28 AM CDT) Glucose, POC 158 70 - 199 mg/dL [facility] Blood 05/10/2021 5:28 AM CDT 05/10/2021 5:28 AM CDT us Sheridan Haney MD LAB POCT ORDERABLES - DEVICE Fin al Result [facility] Department [place] [address] * Lipid panel (05/10/2021 4:44 AM CDT) Cholesterol 105 30 - 199 mg/dL [facility] Comment: Interpretive Data Ages < or [...] revised on 2017. Triglycerides 65 <=149 mg/dL [facility] Comment: Interpretive Data Ages < or [...] revised on 2017. HDL 46 >=40 mg/dL [facility] Comment: Interpretive Data Ages < or [...] on 2017. LDL, calculated 46 <=129 mg/dL [facility] Comment: Interpretive Data Ages < [...] on 2017. Non-HDL Cholesterol 59 mg/dL [facility] Comment: Interpretive Data Ages < [...] last revised on 2017. Chol/HDL ratio 2 [facility] Blood 05/10/2021 4:44 AM CDT 05/10/2021 5:33 AM CDT Narrative [facility] - 05/10/2021 8:15 AM CDT reflex Sheridan Haney MD LAB BLOOD ORDERABLES Final Resul t [facility] Department [place] [address] * (ABNORMAL) Hemoglobin A1c (05/10/2021 4:44 AM CDT) Hgb A1C 5.9(H) 4.0 - 5.6 % [facility] Estimated Average Glucose 123 mg/dL [facility] Comment: The ADA recommends reporting an estimated Average Glucose (eAG) with all Hemoglobin A1c results using the equation derived from a study of 507 normal and diabetic adults. ??Minority populations were underrepresented and children were not included. ?? (Diabetes Care 2020; 43(S1): S66-S76). ??The eAG is not equivalent to a fasting glucose. Blood 05/10/2021 4:44 AM CDT 05/10/2021 5:37 AM CDT Narrative [facility] - 05/10/2021 8:01 AM CDT reflex us Sheridan Haney MD LAB BLOOD ORDERABLES Final Resul t Performing Organization Address [facility] Co de Phone Number [facility] Department of [employer] [place] [address] * (ABNORMAL) eGFR (05/10/2021 4:44 AM CDT) eGFR 64(L) 90 - 130 mL/min/1. 73 m2 [facility] Comment: Interpretive Data Reference Interval Normal [...] ORDERABLES Miranda l Result Performing Organization Address City/[facility] Co de Phone Number [facility] Department of [employer] [place] [address] * Phosphorus (05/10/2021 4:44 AM CDT) [facility] Phosphorus, pl 3.3 2.3 - 4.5 mg/dL [facility] Blood 05/10/2021 4:44 AM CDT 05/10/2021 5:33 AM CDT Sheridan Haney MD LAB BLOOD ORDERABLES Final Resul t Performing Organization Address City/[facility] Co de Phone Number [facility] Department [place] [address] * Magnesium (05/10/2021 4:44 AM CDT) [facility] Magnesium 1.7 1.4 - 2.5 mg/dL [facility] Blood 05/10/2021 4:44 AM CDT 05/10/2021 5:33 AM CDT Sheridan Haney MD LAB BLOOD ORDERABLES Final Resul t Performing Organization Address City/[facility] de Phone Number [facility] Department [place] [address] * Comprehensive metabolic panel (05/10/2021 4:44 AM CDT) [facility] Sodium 140 135 - 145 mmol/L [facility] Potassium, pl 4.1 3.3 - 4.9 mmol/L [facility] Comment:Hemolyzed; Potassium value may be falsely elevated by as much as 0.3-0.5 mmol/L. Suggest redraw and reanalysis. Chloride 109 97 - 110 mmol/L [facility] CO2 22 22 - 32 mmol/L [facility] Anion gap 9 2 - 15 mmol/L [facility] BUN 20 8 - 25 mg/dL [facility] Creatinine 0.90 0.60 - 1.10 mg/dL [facility] Glucose 127 70 - 199 mg/dL [facility] Comment: Interpretive Data Fasting glucose >/= [...] 2017. Calcium 8.7 8.5 - 10.3 mg/dL [facility] Bilirubin, total 0.6 0.1 - 1.2 mg/dL [facility] Protein, pl 6.9 6.5 - 8.5 g/dL [facility] Albumin 3.8 3.5 - 5.0 g/dL [facility] Alk phos 41 40 - 130 Units/L [facility] ALT 19 7 - 45 Units/L [facility] AST 36 10 - 45 Units/L [facility] Comment:Hemolyzed; result ma y be falsely elevated Blood 05/10/2021 4:44 AM CDT 05/10/2021 5:33 AM CDT us Sheridan Haney MD LAB BLOOD ORDERABLES Final Resul t [facility] Department [place] [address] * (ABNORMAL) CBC without differential (05/10/2021 4:44 AM CDT) Pathologist [facility] WBC 9.7 3.8 - 9.9 K/cumm [facility] Hgb 11.9 11.9 - 15.5 g/dL [facility] Hct 37.3 35.6 - 45.5 % [facility] Plt 182 150 - 400 K/cumm [facility] MPV 12.1 9.1 - 12.[address] [facility] RBC 4.12 3.90 - 5.20 M/cumm [facility] MCV 90.5 81.3 - 96.[address] [facility] MCH 28.9 27.1 - 33.[address] [facility] MCHC 31.9(L) 32.3 - 35.7 g/dL [facility] RDW CV 14.2 11.1 - 14.9 % [facility] RDW SD 46.5 35.7 - 48.[address] [facility] NRBC abs 0.00 0.00 - 0.01 K/cumm [facility] Blood 05/10/2021 4:44 AM CDT 05/10/2021 5:33 AM CDT us Sheridan Haney MD LAB BLOOD ORDERABLES Final Resul t [facility] Department [place] [address] * POCT glucose (05/10/2021 12:01 AM CANCELLATION CLERK) Pathologist [facility] Glucose, POC 122 70 - 199 mg/dL [facility] Blood 05/10/2021 12:0 1 AM CANCELLATION CLERK 05/10/2021 12:01 AM CANCELLATION CLERK us Notinfile Unknown LAB POCT ORDERABLES - DEVICE F inal Result Performing Organization Address [facility] Co de Phone Number [facility] Department [place] [address] * Troponin I high-sensitivity 4-hour (05/09/2021 9:22 PM CANCELLATION CLERK) Trop I hs 4 <=17 ng/L [facility] Comment: Interpretive Data For further hscTnI resources including the diagnostic algorithm and an aid in interpretation, copy and paste this link: https://bjhlab.testcatalog.org/show/hsTrop-1 Current Interpretive Data last revised 2019. Trop I hs delta See Comment ng/L [facility] Comment:Inappropriate collec tion time to report a delta. Trop I hs pct delta See Comment % [facility] Comment:Inappropriate collec tion time to report a delta. Trop I hs interp See Comment [facility] Comment:Inappropriate collec tion time to report a delta. Blood 05/09/2021 9:22 PM CANCELLATION CLERK 05/09/2021 9:37 PM CANCELLATION CLERK us Eduardo Brush MD LAB BLOOD ORDERABLES Final R esult [facility] Department [place] [address] * US RUQ (05/09/2021 8:35 PM CANCELLATION CLERK) Anatomical Region Laterality Modality Abdomen N/A Ultrasound 05/09/2021 9:58 PM CANCELLATION CLERK Impressions 05/10/2021 11:50 AM CDT Equivocal findings [...] with associated biliary sludge. Evaluation of sonographic Islva sign is precluded by premedication with opioid analgesia. Dictated by: Akira Granda The radiology attending physician has personally reviewed this study, and had reviewed and/or edited this written report and agrees with it. Electronically signed by: Ashley Bauman M.D. us Michell Luo MD IMG US PROCEDURES Miranda l Result * XR Chest Pa Lateral 2 Views (05/09/2021 7:21 PM CANCELLATION CLERK) Anatomical Region Laterality Modality Body, Chest N/A Computed Radiogr aphy 05/09/2021 7:25 PM CANCELLATION CLERK Impressions 05/09/2021 7:30 PM CANCELLATION CLERK Comparison is made to prior chest radiograph [...] Charly Quintanilla M.D. Narrative 05/09/2021 7:30 PM CANCELLATION CLERK EXAMINATION: XR CHEST PA LATERAL 2 VIEWS [...] it. Electronically signed by: Charly Quintanilla M.D. Eduardo Brush MD IMG XR PROCEDURES Final Resu lt * Influenza A/B, RSV, and COVID-19 PCR Nasopharyngeal (05/09/2021 6:20 PM CANCELLATION CLERK) COVID-19 RNA Negative Negative [facility] Influenza A RNA Negative Negative [facility] Influenza B RNA Negative Negative [facility] RSV RNA Negative Negative [facility] Comment: Interpretive data: Testing performed by [facility] ([phone]). This test is performed using the [employer] Xpert Xpress CoV-2/Flu/RSV plus assay. This is a multiplex, real-time reverse transcriptase PCR assay intended for the qualitative detection of nucleic acid from SARS-CoV-2, influenza A, influenza B, and respiratory syncytial virus. This assay has been reviewed by the FDA for Emergency Use Authorization (EUA). The performance characteristics have been verified by the [facility]. Results must be considered in the clinical context, and a negative result does not rule out infection. Interpretive Data last revised 2021. First COVID-19 test? No [facility] Employeed in healthcare? No [facility] status? No [facility] Group care resident? No [facility] Hospitalized? Yes [facility] Is patient in ICU? No [facility] Symptomatic as defined by CDC? No [facility] Nasopharyngeal 05/09/2021 6: 20 PM CANCELLATION CLERK 05/09/2021 6:53 PM CANCELLATION CLERK Narrative [facility] - 05/09/2021 7:39 PM CANCELLATION CLERK Reason for testing?->Bed placement or semi-private room Known exposure to confirmed or suspected COVID-19 case?->No Eduardo Brush MD LAB MICROBIOLOGY - GENERAL O RDERABLES Final Result [facility] Department [place] [address] * Troponin I high-sensitivity 2-hour (05/09/2021 6:20 PM CANCELLATION CLERK) Trop I hs 4 <=17 ng/L [facility] Comment: Interpretive Data For further hscTnI resources including the diagnostic algorithm and an aid in interpretation, copy and paste this link: https://bjhlab.testcatalog.org/show/hsTrop-1 Current Interpretive Data last revised 2019. Trop I hs delta See Comment ng/L [facility] Comment:Inappropriate collec tion time to report a delta. Trop I hs pct delta See Comment % [facility] Comment:Inappropriate collec tion time to report a delta. Trop I hs interp See Comment [facility] Comment:Inappropriate collec tion time to report a delta. Blood 05/09/2021 6:20 PM CANCELLATION CLERK 05/09/2021 6:31 PM CANCELLATION CLERK us Rawan Ahmad Safa MD LAB BLOOD ORDERABLES Final R esult [facility] Department [place] [address] * CT Abdomen Pelvis W Contrast (05/09/2021 5:10 PM CANCELLATION CLERK) Anatomical Region Laterality Modality Body N/A Computed Tomogra phy 05/09/2021 5:33 PM CANCELLATION CLERK Impressions 05/09/2021 5:51 PM CANCELLATION CLERK 1. Borderline gallbladder distention and cholelithiasis without definite evidence of acute cholecystitis. Recommend clinical correlation for symptoms of biliary colic. 2. Pancolonic diverticulosis without evidence of diverticulitis. Dictated by: Akira Granda The radiology attending physician has personally reviewed this study, and had reviewed and/or edited this written report and agrees with it. Electronically signed by: Charly Quintanilla M.D. Narrative 05/09/2021 5:51 PM CANCELLATION CLERK EXAMINATION: ??Computed tomography of the abdomen and [...] it. Electronically signed by: Charly Quintanilla M.D. Eduardo Brush MD IMG CT PROCEDURES Final Resu lt * POCT glucose (05/09/2021 4:51 PM CANCELLATION CLERK) [facility] Signature Glucose, POC 122 70 - 199 mg/dL [facility] Glucose comment 1 Glu2: RN/MD Notified [facility] Blood 05/09/2021 4:51 PM CANCELLATION CLERK 05/09/2021 4:51 PM CANCELLATION CLERK Notinfile Unknown LAB POCT ORDERABLES - DEVICE F inal Result [facility] Department [place] [address] * ECG 12-LEAD (05/09/2021 3:31 PM CANCELLATION CLERK) Narrative [facility] - 05/09/2021 3:31 PM CANCELLATION CLERK Anthony Beth MD ? 05/09/2021 ??3:35 PM [...] in the ED Anthony Beth MD 05/09/21 [id number] Eduardo Brush MD ECG ORDERABLES Final Result Performing Organization Address City/[facility]/ZIP Co de Phone Number [facility] * (ABNORMAL) Urinalysis, microscopic only (05/09/2021 3:08 PM CANCELLATION CLERK) WBC, ur 0-5 0 - 5 /HPF [facility] RBC, ur 0-2 0 - 2 /HPF [facility] Epithelial cells, squamous, ur 1-5 0 - 5 /HPF [facility] Mucous, ur Present(A) [facility] Culture Reflex Comment Reflex conditions for urine culture (WBC >10) not met. [facility] Urine 05/09/2021 3:08 PM CANCELLATION CLERK 05/09/2021 3:15 PM CANCELLATION CLERK Eduardo Brush MD LAB URINE ORDERABLES Final R esult Performing Organization Address [facility] Co de Phone Number [facility] Department [place] [address] * (ABNORMAL) Urinalysis reflex to microscopic and culture Urine (05/09/2021 3:08 PM CANCELLATION CLERK) Color, ur Straw Yellow [facility] Clarity, ur Clear Clear [facility] Specific gravity, ur 1.024 1.003 - 1.[address] [facility] pH, urine 6.[address] [facility] Protein, ur ql Trace Negative [facility] Glucose, ur ql Negative Negative [facility] Ketones, ur Negative Negative [facility] Bilirubin, ur Negative Negative [facility] Blood, ur Trace(A) Negative [facility] Urobilinogen, ur <2.0 <2.0 mg/dL [facility] Nitrite, ur Negative Negative [facility] Leukocyte esterase, ur Negative Negative [facility] UA reflex comment Reflex to microscopic UA will be performed. [facility] Urine 05/09/2021 3:08 PM CANCELLATION CLERK 05/09/2021 3:15 PM CANCELLATION CLERK Narrative [facility] - 05/09/2021 3:29 PM CANCELLATION CLERK ?? Urine pH is affected by diet, medications, systemic acid-base disturbances, and renal tubular function. ??pH may affect urinary stone formation. ??For example, urine pH below 6.0 may help reduce the tendency for calcium phosphate stones and pH greater than 6.0 may reduce the tendency for uric acid stone formation. Source: [place] [employer]. Last revised 03-10-2017 us Eduardo Brush MD LAB MICROBIOLOGY - GENERAL O RDERABLES Final Result [facility] Department [place] [address] * (ABNORMAL) eGFR (05/09/2021 3:07 PM CANCELLATION CLERK) eGFR 60(L) 90 - 130 mL/min/1. 73 m2 SHANTELL [...] last reviewed 2020. Blood 05/09/2021 3:07 PM CANCELLATION CLERK 05/09/2021 3:22 PM CANCELLATION CLERK us Eduardo Brush MD LAB BLOOD ORDERABLES Final R esult [facility] Department [place] [address] * Lipase (05/09/2021 3:07 PM CANCELLATION CLERK) Pathologist [facility] Lipase 23 10 - 99 Units/L [facility] Blood 05/09/2021 3:07 PM CANCELLATION CLERK 05/09/2021 3:22 PM CANCELLATION CLERK us Notinfile Unknown LAB BLOOD ORDERABLES Final Res ult Performing Organization Address [facility] Co de Phone Number [facility] Department [place] [address] * Differential, auto (05/09/2021 3:07 PM CANCELLATION CLERK) [facility] Neutrophil abs 5.9 1.7 - 6.5 K/cumm [facility] Imm gran abs 0.0 0.0 - 0.1 K/cumm [facility] Lymphocyte abs 1.4 0.8 - 3.3 K/cumm [facility] Monocyte abs 0.5 0.2 - 0.8 K/cumm [facility] Eosinophil abs 0.2 0.0 - 0.5 K/cumm [facility] Basophil abs 0.1 0.0 - 0.1 K/cumm [facility] Neutrophil pct 73.2 % [facility] Comment: Interpretive Data Percent cell count reference ranges are not reported, since discordance with absolute values may lead to misinterpretation of CBC data. Current Interpretive Data was last revised on 2017. Imm gran pct 0.1 % [facility] Comment: Interpretive Data Percent cell count reference ranges are not reported, since discordance with absolute values may lead to misinterpretation of CBC data. Current Interpretive Data was last revised on 2017. Lymphocyte pct 17.3 % [facility] Comment: Interpretive Data Percent cell count reference ranges are not reported, since discordance with absolute values may lead to misinterpretation of CBC data. Current Interpretive Data was last revised on 2017. Monocyte pct 6.6 % [facility] Comment: Interpretive Data Percent cell count reference ranges are not reported, since discordance with absolute values may lead to misinterpretation of CBC data. Current Interpretive Data was last revised on 2017. Eosinophil pct 1.9 % [facility] Comment: Interpretive Data Percent cell count reference ranges are not reported, since discordance with absolute values may lead to misinterpretation of CBC data. Current Interpretive Data was last revised on 2017. Basophil pct 0.9 % [facility] Comment: Interpretive Data Percent cell count reference ranges are not reported, since discordance with absolute values may lead to misinterpretation of CBC data. Current Interpretive Data was last revised on 2017. Blood 05/09/2021 3:07 PM CANCELLATION CLERK 05/09/2021 3:22 PM CANCELLATION CLERK Eduardo Brush MD LAB BLOOD ORDERABLES Final R esult [facility] [employer] [place] [address] * Troponin I high-sensitivity series (baseline, 2hr, 4hr, 6hr) (05/09/2021 3:07 PM CANCELLATION CLERK) Trop I hs 4 <=17 ng/L [facility] Comment: Interpretive Data For further hscTnI resources including the diagnostic algorithm and an aid in interpretation, copy and paste this link: [email or web address]/[email or web address] Current Interpretive Data last revised 2019. Blood 05/09/2021 3:07 PM CANCELLATION CLERK 05/09/2021 3:22 PM CANCELLATION CLERK Eduardo Brush MD LAB BLOOD ORDERABLES Final R esult [facility] Department [place] [address] * Comprehensive metabolic panel (05/09/2021 3:07 PM CANCELLATION CLERK) Sodium 138 135 - 145 mmol/L [facility] Potassium, pl 4.0 3.3 - 4.9 mmol/L [facility] Chloride 106 97 - 110 mmol/L [facility] CO2 22 22 - 32 mmol/L [facility] Anion gap 10 2 - 15 mmol/L [facility] BUN 24 8 - 25 mg/dL [facility] Creatinine 0.95 0.60 - 1.10 mg/dL [facility] Glucose 166 70 - 199 mg/dL [facility] Comment: Interpretive Data Fasting glucose >/= [...] 2017. Calcium 9.2 8.5 - 10.3 mg/dL [facility] Bilirubin, total 0.4 0.1 - 1.2 mg/dL [facility] Protein, pl 7.5 6.5 - 8.5 g/dL [facility] Albumin 4.4 3.5 - 5.0 g/dL [facility] Alk phos 59 40 - 130 Units/L [facility] ALT 19 7 - 45 Units/L [facility] AST 27 10 - 45 Units/L [facility] Blood 05/09/2021 3:07 PM CANCELLATION CLERK 05/09/2021 3:22 PM CANCELLATION CLERK Eduardo Brush MD LAB BLOOD ORDERABLES Final R esult [facility] Department [place] [address] * (ABNORMAL) CBC with auto differential (05/09/2021 3:07 PM CANCELLATION CLERK) [facility] WBC 8.0 3.8 - 9.9 K/cumm [facility] Hgb 12.9 11.9 - 15.5 g/dL [facility] Hct 40.1 35.6 - 45.5 % [facility] Plt 198 150 - 400 K/cumm [facility] MPV 11.6 9.1 - 12.[address] [facility] RBC 4.46 3.90 - 5.20 M/cumm [facility] MCV 89.9 81.3 - 96.[address] [facility] MCH 28.9 27.1 - 33.[address] [facility] MCHC 32.2(L) 32.3 - 35.7 g/dL [facility] RDW CV 14.2 11.1 - 14.9 % [facility] RDW SD 46.7 35.7 - 48.[address] [facility] NRBC abs 0.00 0.00 - 0.01 K/cumm [facility] Blood 05/09/2021 3:07 PM CANCELLATION CLERK 05/09/2021 3:22 PM CANCELLATION CLERK us Eduardo Brush MD LAB BLOOD ORDERABLES Final R esult Performing Organization Address [facility] Co de Phone Number [facility] [employer] [place] [address] * POCT glucose (05/09/2021 1:21 PM CANCELLATION CLERK) [facility] Glucose, POC 157 70 - 199 mg/dL [facility] Blood 05/09/2021 1:21 PM CANCELLATION CLERK 05/09/2021 1:21 PM CANCELLATION CLERK us Notinfile Unknown LAB POCT ORDERABLES - DEVICE F inal Result Performing Organization Address [facility] Co de Phone Number [facility] Department [place] [address] documented in this encounter Visit Diagnoses Diagnosis Abdominal pain- Primary Abdominal pain, unspecified site Abdominal pain Abdominal pain, unspecified site Biliary calculus of other site without obstruction Calculus of gallbladder without cholecystitis without obstruction Calculus of gallbladder without cholecystitis without obstruction S/P mitral valve repair Other postprocedural status CVA (cerebral vascular accident) (HCC) Unspecified cerebral artery occlusion with cerebral infarction Chronic diastolic heart failure (HCC) Chronic diastolic heart failure HTN (hypertension), benign Essential hypertension, benign Type 2 diabetes mellitus (HCC) documented in this encounter Admitting Diagnoses Diagnosis Abdominal pain Abdominal pain, unspecified site Calculus of gallbladder without cholecystitis without obstruction documented in this encounter Administered Medications Inactive Administered Medications - up to 3 most recent administrations Medication Order MAR Action Action Date Dose Rate Site acetaminophen (TYLENOL) tablet 1,000 mg 1,000 mg, oral, Every 6 hours scheduled, First dose on Tue05/10/21 at 0145 Given 05/11/2021 10:17 PM CDT 1,000 mg Given 05/11/2021 5:33 PM CDT 1,000 mg Given 05/11/2021 5:02 AM CDT 1,000 mg amLODIPine (NORVASC) tablet 10 mg 10 mg, oral, Daily, First dose on Tue05/10/21 at 0900 Given 05/12/2021 12:05 PM CDT [...] Given 05/10/2021 5:31 PM CDT 25 mg cefOXitin (MEFOXITIN) 1,000 mg/10 mL in sterile water (premix) 1,000 mg 1,000 mg, intravenous, at 200 mL/hr, Administer over 3 Minutes, Every 8 hours scheduled, First dose on Tue05/11/21 at 2015, For 3 doses, Indications: Abdominal/Pelvic InfectionIndications:Abdominal/Pe lvic Infection New Bag 05/12/2021 4:45 AM CDT 1,000 mg 200 mL/hr New Bag 05/11/2021 10:17 PM CDT 1,000 mg 200 mL/hr dextrose (D10W) 10% bolus 250 mL 250 [...] Call MD for each episode of hypoglycemia. UNDERLAY STITCHER STATES GLUTOSE-15 CONTAINS GLUCOSE 40% W/W (50% W/V), Indications: hypoglycemic disorderIndications:hypoglycemic disorder dextrose 5% and sodium chloride 0.45% with potassium chloride 20 mEq/L infusion (premix) 50 mL/hr, intravenous, Continuous, Starting on Tue05/10/21 at 0145 New Bag 05/11/2021 1:45 PM CDT 50 mL/hr 50 mL/hr New Bag 05/11/2021 3:05 AM CDT 50 mL/hr 50 mL/hr New 05/10/2021 4:34 AM CDT 50 mL/hr 50 mL/hr fentaNYL (SUBLIMAZE) preservative free injection 25 mcg 25 mcg, intravenous, Every 10 min PRN, 1st line for pain, Starting on 05/11/21 at 1027, Phase I, Switch to 2nd line analgesic order if pain is uncontrolled or increasing after 2 doses. Notify Anesthesiologist if total PACU dose reaches 100 mcg and pain score 5/10 or more., Indications: PainIndications:Pain Given 05/11/2021 10:52 AM CDT 25 mcg Given 05/11/2021 10:41 AM CDT 25 mcg glucagon injection 1 mg 1 mg, intramuscular, [...] mL SWFI. Use immediately following reconstitution. heparin 1,000 unit/mL injection 4,900 Units 4,900 Units (rounded from 4,896 Units = 80 Units/kg ? 61.2 kg), intravenous, Once, On Tue05/10/21 at 0715, For 1 dose, Initial bolus prior to starting heparin infusion. Do not adjust initial bolus based on patient PTT., Indications: Venous ThrombosisIndications:Ve nous Thrombosis Given 05/10/2021 10:23 AM CDT 4,900 Units heparin in 0.9% sodium chloride 25,000 unit/250 [...] AM until heparin is discontinued, Indications: Venous ThrombosisIndications:Ve nous Thrombosis Rate/Dose Change 05/12/2021 5:22 AM CDT [...] for NPO Status, Indications: Diabetes MellitusIndications:Diabetes Mellitus ioversoL (OPTIRAY 350) syringe syringe 100 mL 100 mL, intravenous, Once in imaging, contrast, Starting on 05/09/21 at 1654, For 1 dose Contrast Given 05/09/2021 4:54 PM CANCELLATION CLERK 94 mL Lactated Ringer's (LR) infusion - ADS Override Pull Starting on Tue05/11/21 at 0558, For 1 dose, Created by cabinet override Lactated Ringer's (LR) infusion 30 mL/hr, intravenous, Continuous, Starting on Tue05/11/21 at 0630, Pre-Op, Rate/Dose Verify 05/11/2021 7:57 AM CDT 30 mL/hr New Bag 05/11/2021 6:13 AM CDT 30 mL/hr 30 mL/hr morphine injection 2 mg 2 mg, intravenous, Administer over 4 Minutes, Once, On 05/09/21 at 1622, For 1 dose Given 05/09/2021 4:48 PM CANCELLATION CLERK 2 m g morphine injection 2 mg 2 mg, intravenous, Administer over 4 Minutes, Once, On 05/09/21 at 2245, For 1 dose Given 05/09/2021 11:07 PM CANCELLATION CLERK 2 mg ondansetron (ZOFRAN) injection 4 mg 4 mg, intravenous, Administer over 2 Minutes, Once, On 05/09/21 at 1622, For 1 dose Given 05/09/2021 4:47 PM CANCELLATION CLERK 4 m g oxyCODONE (ROXICODONE) tablet 5 mg 5 mg, oral, Every 4 hours PRN, 1st line for pain, Starting on 05/10/21 at 0144, Indications: PainIndications:Pain Given 05/12/2021 8:48 AM CDT 5 mg Given 05/11/2021 5:46 AM CDT 5 mg Given 05/10/2021 9:14 PM CDT 5 mg sodium chloride 0.9% flush 0.5-20 mL 0.5-20 mL, intra-catheter, Every 8 hours scheduled, First dose on Sun 22 at 0600, Flush volume based on line type and size. Given 05/12/2021 4:46 AM CDT 10 mL Given 05/11/2021 10:17 PM CDT 10 mL Given 05/11/2021 2:38 PM CDT 10 mL umeclidinium (INCRUSE ELLIPTA) 62.5 mcg/actuation inhaler 62.5 mcg 62.5 mcg (1 puff), inhalation, Daily (newspaper correspondent), First dose on Tue05/10/21 at 0900 Given 05/10/2021 8:42 AM CDT 62. 5 mcg umeclidinium (INCRUSE ELLIPTA) 62.5 mcg/actuation inhaler 62.5 mcg 62.5 mcg (1 puff), inhalation, Daily (newspaper correspondent), First dose (after last modification) on Tue05/12/21 at 0930, Rinse mouth with water after use. Do not swallow. Given 05/12/2021 10:19 AM CDT 62.5 mcg documented in this encounter Active and Recently Administered Medications Due to Daylight Saving Time, this section may contain times in both CANCELLATION CLERK and CDT. Scheduled Medication Order 05/10/2021 05/11/2021 05/12/2021 acetaminophen (TYLENOL) tablet 1,000 mg 1,000 mg, oral, Every 6 hours scheduled, First dose on Tue05/10/21 at 0145 0328 (Not Given - Provider: Kiarra Baez RN - Reason: Patient not available)0432 (Given - Provider: Kiarra Baez RN)1214 (Given - Provider: Lele Luz RN)1731 (Given - Provider: Lele Luz RN)2316 (Given - Provider: Mariah Hagan RN) 0502 (Given - Provider: Daija Borrero, EDD)0555 (MAR Hold - Provider: Automatic Transfer Provider - Reason: Patient not available)1200 (Dose Auto Held - Provider: Automatic Transfer Provider)1329 (MAR Unhold - Provider: Perez Flannery RN)1733 (Given - Provider: Perez Flannery RN)2217 (Given - Provider: Adelina Crum RN) 0446 (Not Given - Provider: Adelina Crum RN - Reason: Patient/family refused)1212 (Not Given - [...] (MAR Unhold - Provider: Perez Flannery RN) 1205 [...] Provider)1329 (MAR Unhold - Provider: Perez Flannery RN)1733 (Given [...] Infection 2217 (New Bag - Provider: Adelina Crum, EDD) 0445 (New Bag - Provider: Adelina Crum, EDD) heparin 1,000 unit/mL injection 4,900 Units (COMPLETED) [...] Infusing) 0502 (Not Given - Provider: Mariah Hagan RN - Reason: IV Infusing)0555 (MAR Hold - Provider: Automatic Transfer Provider - Reason: Patient not available)1329 (MAR Unhold - Provider: Perez Flannery RN)1438 (Given - Provider: Perez Flannery RN)2217 (Given - Provider: Adelina Crum, EDD) 0446 (Given - Provider: Adelina Crum, EDD) umeclidinium (INCRUSE ELLIPTA) 62.5 mcg/actuation inhaler 62.5 mcg (CANCELED) 62.5 mcg (1 puff), inhalation, Daily (newspaper correspondent), First dose on Tue05/10/21 at 0900 0842 (Given - Provider: Samuel Rain, JETT) 0555 (MAR Hold - Provider: Automatic Transfer Provider - Reason: Patient not available)0900 (Dose Auto Held - Provider: Automatic Transfer Provider)1329 (MAR Unhold - Provider: Perez Flannery RN) 0843 (Not Given - Provider: Ariadna Warren RRT - Reason: Other - Comment: Med not available yet.) umeclidinium (INCRUSE ELLIPTA) 62.5 mcg/actuation inhaler 62.5 mcg 62.5 mcg (1 puff), inhalation, Daily (newspaper correspondent), First dose (after last modification) on Tue05/12/21 [...] Hagan, EDD)1345 (New Bag - Provider: Perez Flannery, EDD) heparin in 0.9% sodium chloride 25,000 unit/250 [...] Lele Luz RN)1919 (Restarted - Provider: Mariah Hagan, EDD - Comment: Handoff) 0200 (Stopped - Provider: Mariah Hagan, EDD)1430 (New Bag - Provider: Perez Flannery, EDD)2224 (Rate/Dose Change - Provider: Adelina Crum RN) 0312 (New Bag - Provider: Adelina Crum RN)0522 (Rate/Dose Change - Provider: Adelina Crum EDD) Lactated Ringer's (LR) infusion (CANCELED) 30 mL/hr, intravenous, Continuous, Starting on Tue05/11/21 at 0630, Pre-Op, 0613 (New Bag - Provider: Daija Borrero, EDD)0757 (Rate/Dose Verify - Provider: Brigid Meyers CRNA)1026 [...] Call MD for each episode of hypoglycemia. UNDERLAY STITCHER STATES GLUTOSE-15 CONTAINS GLUCOSE 40% W/W (50% [...] Indications: Pain 1041 (Given - Provider: Ester Goodman, RN)1052 (Given - Provider: Ester Goodman, RN) glucagon injection 1 mg 1 mg, intramuscular, [...] not available)1329 (APR Unhold - Provider: Perez Flannery, EDD) 0848 [...] Stephanie Castelan MD - Comment: for suction whiskey filterer) Linked Groups Order Group 1: dextrose (GLUTOSE) [...] Call MD for each episode of hypoglycemia. UNDERLAY STITCHER STATES GLUTOSE-15 CONTAINS GLUCOSE 40% W/W (50% [...] Date dextrose (D10W) 10% bolus 250 mL 05/13/19 dextrose (GLUTOSE) 40 % gel 15 g 05/13/19 glucagon injection 1 mg 1 05/12/2021 insulin lispro (HumaLOG, ADM ELOG) 100 unit/mL injection 0-4 Units 05/12/2021 insulin lispro (HumaLOG, ADM ELOG) 100 unit/mL injection 0-5 Units 1 05/12/2021 umeclidinium (INCRUSE ELLIPT A) 62.5 mcg/actuation inhaler 62.5 mcg 1 05/12/2021 cefOXitin (MEFOXIN) 1,000 mg in sterile water 10 mL IV syringe 1 05/11/2021 cefOXitin (MEFOXITIN) 1,000 mg/10 mL in sterile water (premix) 1,000 mg 1 05/11/2021 famotidine (PEPCID) tablet 20 mg 1 05/12/19 22 fentaNYL (SUBLIMAZE) preserv ative free injection 50 mcg 1 05/11/2021 Lactated Ringer's (LR) infusion 1 2 naloxone (NARCAN) 0.4 mg/mL injection 0.04-0.4 mg 1 05/11/2021 prochlorperazine (COMPAZINE) injection 10 mg 1 05/11/2021 sodium chloride 0.9% flush 0.5-20 mL 4 04/2805/10/2021 sodium chloride 0.9% irrigation 2 2 enoxaparin (LOVENOX) syringe 40 mg 1 2021 HYDROmorphone (DILAUDID) injection 0.2 mg 1 05/10/2021 ondansetron (ZOFRAN) injection 4 mg 2 05/1005/09/2021 Lab Orders Without Results Count Last Ordered [...] 05/09/2021 documented in this encounter Care Teams Consulting Sales Executive Relationship Specialty Start Date End Date Haris Lauren MD PCP - General Family Medicine 12/31/20 06/07/21 documented as of this encounter
--- OUTSIDE RECORDS SUMMARY | 2024-02-28 15:36 | XMS_ITS | Encounter Summary ---
Author Organization [facility] Healthcare Address [address] [place] [address] Care Team Providers Care Paint Mixer Hand Name Role Phone Cassius Chambers MD Primary Care Provider [phone] Encounter Details Date Type Department Care Team (Late st Contact Info) Description 05/26/[address] 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 T12 and L1 vertebral augmentation with cavity creation under fluoroscopic guidance. The patient had reduction of pain symptoms at the conclusion of the procedure. Post procedure follow up call. I spoke to Mr. Johnsno and he reports that Yuliana still has pain following the procedure, but notes that it has definitely improved. She describes the pain as more soreness. Pain regiman is currently hydrocodone 5/325mg and zolpidem 10 mg and only gives 1/3 of the tablet at HS. She is going longer durations without needing the pain medication. Site inspected and is c/d/i. Reviewed post care instructions, B,L,T precautions and reviewed using good body mechanics. Informed that we will follow up at one week keyon and he should call in the interim with any further questions or concerns. He was appreciative of call. documented in this encounter Plan of Treatment Not on file documented as of this encounter Visit Diagnoses Not on filedocumented in this encounter Care Teams Paint Mixer Hand Relationship Specialty Start Date End Date Cassius Chambers MD [address] [address] PCP - General 08/12/16 12/30/20 documented as of this encounter
--- OUTSIDE RECORDS SUMMARY | 2024-02-28 15:36 | XMS_ITS | Encounter Summary ---
Author Organization [facility] Healthcare Address [address] [place] [address] Care Team Providers Care Assistant Men'S Soccer Coach Name Role Phone Cassius Chambers MD Primary Care Provider [phone] Encounter Details Date Type Department Care Team (Late st Contact Info) Description 05/13/2020 Telephone [facility] [address] [place] [address] Estella Talley RN Social History Tobacco Use Types Packs/Day Years Used Date Smoking Tobacco: Never Smokeless Tobacco: Never Alcohol Use Standard Drinks/Week Comments No 0 (1 standard drink = 0.6 oz pur e alcohol) Comments No Sex and Gender Information Value Date Recorded Sex Assigned at Not on file 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 Gender Identity Female 06/15/2023 1:45 PM CDT Sexual Orientation Straight 06/15/2023 1: 45 PM CDT documented as of this encounter Miscellaneous Notes * Telephone Encounter - Estella Talley RN - 05/13/2020 8:38 AM CDT ----- Message from Cassius Chambers MD sent at 05/13/2020 8:36 AM CDT ----- Regarding: RE: Antoinettequis hold approval request Okay to hold eliquis x 5 days ----- Message ----- From: Estella Talley RN [...] on filedocumented in this encounter Care Teams Assistant Men'S Soccer Coach Relationship Specialty Start Date End Date Cassius Chambers MD [address] [place] [address] PCP - General 08/12/16 12/30/20 documented as of this encounter
--- OUTSIDE RECORDS SUMMARY | 2024-02-28 15:36 | XMS_ITS | Encounter Summary ---
Author Organization [facility] Healthcare Address [address] [place] [address] Care Team Providers Care Framing And Hanging Name Role Phone Cassius Chambers MD Primary Care Provider [phone] Encounter Details Date Type Department Care Team (Late st Contact Info) Description 05/22/[address] 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 Pre Call instruction review COVID 19 prescreen questions: Procedure Time Verified: Arrival Time Verified: Procedure Location Verified: Medical History Reviewed: NPO Status Reinforced: Ride and Caregiver Arranged: Is Patient on Blood Thinners?: a message was left for call back for preprocedure instruction review and covid- 19 prescreen questions. Awaiting call back at this time. documented in this encounter Plan of Treatment Not on file documented as of this encounter Visit Diagnoses Not on filedocumented in this encounter Care Teams Framing And Hanging Relationship Specialty Start Date End Date Cassius Chambers MD [address] [address] PCP - General 08/12/16 12/30/20 documented as of this encounter
--- OUTSIDE RECORDS SUMMARY | 2024-02-28 15:36 | XMS_ITS | Encounter Summary ---
Author Organization [employer] [employer] [facility] Address [address] [place] [address] Phone Care Team Providers Care Supervisor/Port Director Name Role Phone Haris Lauren MD Primary Care Provider [phone] Encounter Details Date Type Department Care Team (Latest Contact Info) Description 05/18/2021 9:30 AM CDT Office Visit [facility] [address] [place] [address] Sp Madrid MD [address] [facility] [address] [place] [address] Nonrheumatic mitral valve regurgitation (Primary Dx); Tricuspid valve disorder Social History Tobacco Use [...] on file Legal Sex Female 11:30 PM BOOK AUTHOR Gender Identity Female 06/15/2023 1:45 PM CDT Sexual Orientation Straight 06/15/2023 1: 45 PM CDT documented as of this encounter Last Filed Vital Signs Vital Sign Reading Time Taken Comments Blood Pressure 151/75 05/18/2021 9:30 AM CDT Pulse 77 05/18/2021 9:30 AM CDT Temperature 36.6 ??C (97.9 ??F) 05/18/2021 9:30 AM CD T Respiratory Rate - - Oxygen Saturation 96% 05/18/2021 9:30 AM CDT Inhaled Oxygen Concentration - - Weight 66.6 kg (146 lb 14.4 oz) 05/18/2021 9:30 AM CDT Height 154.9 cm (5' 0.98 ) 05/18/2021 9:30 AM CD T Body Mass Index 27.77 05/18/2021 9:30 AM CDT documented in this encounter Patient Instructions * Patient Instructions* Sp Madrid MD - 05/18/2021 9:30 AM CDT D/c lasix Increase po fluids Rtc 6m Change lasix to 20 mg prn only documented in this encounter Ordered Prescriptions Prescription Sig Dispense Quantity Refills Last Filled Start Date End Date furosemide (LASIX) 20 mg tablet Take 1 tablet (20 mg total) by mouth daily 30 tablet 11 05/18/2021 07/10/2021 documented in this encounter Progress Notes * Sp Madrid MD - 05/18/2021 9:30 AM CDT 05/18/2021 History of Present Illness: Yuliana Johnson is a pleasant 80 y.o. female who had tele med consult With following medical problems 1. Mitral valve disorder. [...] mellitus. 7. Dyslipidemia. She had a gallbladder surgery a week ago. She is not taking Lasix for the last few weeks. She fell down tow month ago and had T12-L1 Fracture. She underwent vertebroplasty on 05/23/2020. .This was mechanical injury. She is short of breath. She have left eye floaters.. She had an KARLY done, No cardiacsource of emboli noted. No syncope, fever noted. [...] nausea or vomiting 30 tablet 0 ??? oxyCODONE (ROXICODONE) 5 mg immediate release [...] puffs daily 70 mcg of tiotropium 2 No current facility-administered medications for this visit. PHYSICAL EXAMINATION Blood pressure 151/75, pulse 77, temperature 36.6 ??C (97.9 ??F), height 154.9 cm (5' 0.98 ), weight 66.6 kg (146 lb 14.4 oz), SpO2 96 %. Physical Exam Constitutional: [...] 8 Lab Results Component Value Date WBC 8.2 05/15/2021 HGB 12.4 05/15/2021 HCT 39.9 05/15/2021 LABPLAT 293 05/15/2021 CHOL 105 05/10/2021 TRIG 65 05/10/2021 HDL 46 05/10/2021 LDL 17 01/08/2015 AST 52 (H) 05/15/2021 SODIUM 137 05/15/2021 POTASSIUM 5.0 (H) 05/15/2021 CHLORIDE 107 05/15/2021 CREATININE 1.02 05/15/2021 BUNSER 17 05/15/2021 CO2 19 (L) 05/15/2021 BNP 797 (H) 01/27/2015 TSH 2.82 02/09/2019 INR 1.48 (H) 01/07/2015 HGBA1C 5.9 (H) 05/10/2021 Component Latest Ref Rng & Units 02/09/2019 [...] regarding her cardiac problems. Damien Norton MD lathe spotter Cardiology [facility] documented in this encounter Plan of Treatment Not on file documented as of this encounter Visit Diagnoses Diagnosis Nonrheumatic mitral valve regurgitation- Primary Tricuspid valve disorder Tricuspid valve disorders, specified as nonrheumatic documented in this encounter Care Teams Supervisor/Port Director Relationship Specialty Start Date End Date Haris Lauren MD PCP - General Family Medicine 12/31/20 06/07/21 documented as of this encounter
--- OUTSIDE RECORDS SUMMARY | 2024-02-28 15:36 | XMS_ITS | Encounter Summary ---
Author Organization [facility] Address [address] [place] [address] Care Team Providers Care Laborer Aquatic Life Name Role Phone Cassius Chambers MD Primary Care Provider [phone] Reason for Referral * Diagnostic Imaging (Routine) - Closed Specialty Diagnoses / Procedures Referred By Contac t Referred To Contact Radiology Diagnoses Compression fracture of body of thoracic vertebra (CMS/HCC) (HCC) Procedures IR Kyphoplasty Thoracic With Image Guidance Cassius Chambers MD [address] [employer] [address] [address] Phone: tel: fax: [facility] [address] [place] [address] Referral ID Status Reason Start Date Expiration Date Visits Re quested Visits Authorized [id number] Closed 05/13/2020 06/12/2021 1 1 Reason for Visit * Diagnostic Imaging (Routine) - Closed Specialty Diagnoses / Procedures Referred By Contac t Referred To Contact Radiology Diagnoses Compression fracture of body of thoracic vertebra (CMS/HCC) (HCC) Procedures IR Kyphoplasty Thoracic With Image Guidance Cassius Chambers MD [address] [employer] [address] [address] Phone: tel: fax: [facility] [address] [place] [address] Referral ID Status Reason Start Date Expiration Date Visits Re quested Visits Authorized [id number] Closed 05/13/2020 06/12/2021 1 1 Encounter Details Date Type Department Care Team (Late st Contact Info) Description 05/23/2020 9:27 AM CDT - 05/23/2020 1:30 PM CDT Hospital Encounter [facility] Radiology [address] [place] [address] Cassius Chambers MD [address] [facility] [address] [place] [address] Chris Frye MD [address] [place] [address] Stephanie Coe MD [address] [facility] [address] [place], [place] [id number] Compression fracture of body of thoracic vertebra (CMS/HCC) Discharge Disposition: Discharge to home or self care Social History Tobacco Use Types Packs/Day Years Used Date Smoking Tobacco: Never Smokeless Tobacco: Never Alcohol Use Standard Drinks/Week Comments No 0 (1 standard drink = 0.6 oz pur e alcohol) Comments No Sex and Gender Information Value Date Recorded Sex Assigned at Not on file 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 Gender Identity Female 06/15/2023 1:45 PM CDT Sexual Orientation Straight 06/15/2023 1: 45 PM CDT documented as of this encounter Last Filed Vital Signs Vital Sign Reading Time Taken Comments Blood Pressure 118/59 05/23/2020 1:15 PM CDT Pulse 69 05/23/2020 1:15 PM CDT Temperature 36.3 ??C (97.4 ??F) 05/23/2020 9:56 AM CD T Respiratory Rate 18 05/23/2020 12:45 PM CDT Oxygen Saturation 99% 05/23/2020 1:15 PM CDT Inhaled Oxygen Concentration - - Weight 62.1 kg (137 lb) 05/23/2020 9:56 AM CDT Height 152.4 cm (5') 05/23/2020 9:56 AM CDT Body Mass Index 26.76 05/23/2020 9:56 AM CDT documented in this encounter Discharge Diagnoses Diagnosis Collapsed vertebra, not elsewhere classified, thoracolumbar region, initial encounter for fracture (HCC) - COLLAPSED VERTEBRA, NOT ELSEWHERE CLASSIFIED, THORACOLUMBAR REGION, INITIAL ENCOUNTER FOR FRACTURE Spondylolisthesis, lumbar region - SPONDYLOLISTHESIS, LUMBAR REGION Atherosclerosis of aorta (HCC) - ATHEROSCLEROSIS OF AORTA Atherosclerosis of aorta Type 2 diabetes mellitus without complications (CMS/HCC) (HCC) - TYPE 2 DIABETES MELLITUS WITHOUT COMPLICATIONS Hyperlipidemia, unspecified - HYPERLIPIDEMIA, UNSPECIFIED Essential (primary) hypertension - ESSENTIAL (PRIMARY) HYPERTENSION Unspecified essential hypertension jail (current) use of aspirin - SHELTER (CURRENT) USE OF ASPIRIN terminal block assembler (current) use of anticoagulants - SHELTER (CURRENT) USE OF ANTICOAGULANTS Long-term (current) use of anticoagulants Personal history of malignant neoplasm of breast - PERSONAL HISTORY OF MALIGNANT NEOPLASM OF BREAST Acquired absence of left breast and nipple - ACQUIRED ABSENCE OF LEFT BREAST AND NIPPLE documented in this encounter Discharge Instructions * Attachments The following attachments cannot be sent through Care Everywhere. * Kyphoplasty (Discharge Care) (Bengali) documented in this encounter Medications at Time of Discharge HYDROcodone-acet aminophen (NORCO) 5-325 mg per tabletIndication s:Pain Take 1 tablet by mouth every 6 (six) hours as needed for pain 120 tablet 05/21/2020 1 amLODIPine (NORVASC) 10 mg tablet Take 1 tablet by mouth once daily 90 tablet 03/03/2020 1 apixaban (ELIQUIS) 2.5 mg tablet Take 1 tablet (2.5 mg total) by mouth 2 (two) times a day 56 tablet 05/16/2019 1 carvediloL (COREG) 25 mg tablet Take 1 tablet by mouth twice daily 180 tablet 3 06/04/2019 1 fenofibrate (TRIGLIDE) 160 mg tablet Take 1 tablet by mouth once daily 90 tablet 04/02/2020 1 furosemide (LASIX) 20 mg tablet Take 1 tablet (20 mg total) by mouth daily as needed (leg swelling or worsening shortness of breath) 30 tablet 1 04/29/2020 1 losartan (COZAAR) 100 mg tabletIndication s:Type 2 diabetes mellitus without complication, without long-term current use of insulin (CMS/HCC) (HCC) Take 1 tablet (100 mg total) by mouth daily 90 tablet 1 04/29/2020 1 zolpidem (AMBIEN) 10 mg tablet TAKE 1 TABLET BY MOUTH AT BEDTIME 90 tablet 03/30/2020 1 documented as of this encounter Discharge Disposition Disposition Code Departure Means Destination Discharge to home or self care documented in this encounter Miscellaneous Notes * Post-Procedure Note - Adrián Quinones MD - 05/23/2020 12:15 PM CDT Radiology Brief Post Procedure Note Attending: kiel Investment Recovery Technician: jo-ann coe steinbrecher Sedation/Anesthesia: Min Sedation Pre-Op/Pre-Procedure Diagnosis: t12, l1 compression fxs Post-Op/Post-Procedure Diagnosis: same Procedure Performed: t12, l1 vert sep Procedure Findings: successful Complications: None Estimated Blood Loss: None Specimens: None Condition: Stable Full report to follow. * Pre-Procedure Note - Stephanie Coe MD - 05/23/2020 10:17 AM CDT Radiology Long Sedation Form Indication: T12 and L1 compression fractures Planned Procedure: T12 and L1 image-guided vertebral augmentation Planned Sedation/Anesthesia: minimal sedation History: 79yo woman with focal pain at the T12-L1 levels. Found to have moderate L1 and mild T12 compression fractures on outside CT. Patient states her pain has worsened since this imaging, but remains in the same location. Focal, nonradicular. She has held her Eliquis for 5 days and continues to take ASA 81mg daily. PMH/PSH: Past Medical History: Diagnosis Date ??? Cancer (CMS/HCC) breast ??? Diabetes mellitus (CMS/HCC) ??? Hyperlipidemia ??? Hypertension Past Surgical History: Procedure Laterality Date ??? HYSTERECTOMY ??? MASTECTOMY Left ??? MITRAL VALVE REPAIR ROS: Review of systems per HPI and otherwise all other systems are negative Allergies: Patient has no known allergies. Current Meds: No outpatient medications have been marked as taking for the 05/23/20 encounter (Hospital Encounter)with [facility] [id number]. Physical exam: General: Awake and alert, no acute distress MSK: Focal tenderness near the thoracolumbar junction, difficulty rising to upright position CV: Normal rate, reg rhythm Pulm: Normal work of breathing Most Recent Vitals: Vitals: 05/23/20 0956 BP: 117/61 Pulse: 68 Resp: 18 Temp: 36.3 ??C (97.4 ??F) SpO2: 98% Airway Assessment: normal Labs/Imaging: Assessment: 79yo F with T12 and L1 compression fractures. No change in focality or quality of symptoms. Will proceed with fluoro-guided T12 and L1 kyphoplasties. ASA Score: 2 NPO time: after midnight Benefits, risks and alternatives of procedure and planned sedation have been discussed with the patient and/or their direct customer service representative. All questions answered and they agree to proceed. documented in this encounter Plan of Treatment Not on file documented as of this encounter Procedures Procedure Name Priority Date/Time Associated Diagnosis Comments KYPHOPLASTY THORACIC Schedule Routine, Read Routine (OP Routine) 05/23/2020 12:09 PM CDT Compression fracture of body of thoracic vertebra (CMS/HCC) documented in this encounter Results * IR Kyphoplasty Thoracic With Image Guidance (05/23/2020 12:09 PM CDT) Anatomical Region Laterality Modality Spine N/A Radio Fluoroscop y 05/23/2020 12:4 2 PM CDT Impressions 05/23/2020 1:29 PM CDT 1. ??T12 and L1 vertebral augmentation with cavity creation under fluoroscopic guidance. The patient had reduction of pain symptoms at the conclusion of the procedure. Dictated by: Stephanie Coe M.D. The radiology attending physician has personally reviewed this study, and had reviewed and/or edited this written report and agrees with it. Electronically signed by: Chris Frye M.D. Narrative 05/23/2020 1:29 PM CDT EXAMINATION: ??T12 and L1 vertebral augmentation with cavity creation under fluoroscopic guidance HISTORY: Fall with moderate L1 and mild T12 compression deformities on outside CT. The patient requires narcotic medications for pain relief and is limited in her ability to do activities of daily living. T12 and L1 vertebral augmentations are requested. ATTENDING PRESENCE: Dr. Chris Frye M.D., the attending radiologist, was present from the beginning to the end of the procedure. Dr. Stephanie Coe M.D., Dr. Nathalia Castro M.D., and Dr. Adrián Quinones M.D., also participated. SEDATION: Conscious sedation was administered under the attending physician's direction and continuous monitoring by a trained nurse specialist who was independent from those actually performing the procedure. ??Total monitored sedation time was 60 minutes. During the course of the procedure, the patient received Fentanyl 125 mcg and Versed 1 mg IV. ??The patient was given Ancef 2 grams IV ??for antibiotic prophylaxis prior to the procedure. TECHNIQUE: ??The risks, benefits, and alternatives were discussed and informed consent was obtained. ??Prior to beginning the procedure, Warden Protocol was performed to confirm the patient's identity and the planned procedure. Sterile barriers used during the procedure included cap, mask, hand hygiene, sterile gloves, sterile gown, and sterile drape. ??Chloraprep was used for cutaneous antisepsis. ?? The patient was placed in the prone position on the fluoroscopy table. ??The T12 and L1 levels were localized with fluoroscopy with confirmation of site of maximal tenderness. 10 mL of 1:1 mixture of 1% lidocaine and 0.25% bupivacaine was injected for subcutaneous and periosteal anesthesia. ??The L1 vertebral body was accessed with a 10 gauge The Point introducer under fluoroscopic guidance via the right pedicle. ??The needle tip was advanced to the posterior 1/4 of the vertebral body. ??The needle tip position was verified with multiple fluoroscopic views. A 20 mm ballon was placed with cavity created across midline. The same procedure was repeated at the T12 level. Bone cement was prepared and delivered from the [place]oving[place] curve nitinol needle. ??In the L1 vertebral body, 3 mL of cement was injected with filling from pedicle to pedicle and superior to inferior endplate. In the T12 vertebral body, 3 mL of cement was injected with filling from pedicle to pedicle and superior to inferior endplate. The needles were removed and the skin was cleansed with hydrogen peroxide. Skin glue was placed at the needle entry site. The patient remained monitored in the recumbent position in the recovery area for one hour until the cement had polymerized. Complication: None Type: None ESTIMATED BLOOD LOSS: None CONDITION: Stable condition. DISCHARGED TO: Home FINDINGS: ??Initial fluoroscopic images demonstrate moderate compression deformities at T12 and L1 with increased height loss at T12 since 03/22/2020. There are postoperative changes of median sternotomy. Pelvic surgical clips are noted. The aorta is atherosclerotic. There is diffuse lumbar degenerative disc disease, worst and severe at L2-3 where there is mild retrolisthesis. Subsequent images demonstrate cement within the T12 and L1 vertebral bodies extending from the superior to inferior endplates and pedicle to pedicle. Procedure Note Chris Frye MD - 05/23/2020 EXAMINATION: T12 and L1 vertebral augmentation with cavity creation under fluoroscopic guidance HISTORY: Fall with moderate L1 and mild T12 compression deformities on outside CT. The patient requires narcotic medications for pain relief and is limited in her ability to do activities of daily living. T12 and L1 vertebral augmentations are requested. ATTENDING PRESENCE: Dr. Chris Frye M.D., the attending radiologist, was present from the beginning to the end of the procedure. Dr. Stephanie Coe M.D., Dr. Nathalia Castro M.D., and Dr. Adrián Quinones M.D., also participated. SEDATION: Conscious sedation was administered under the attending physician's direction and continuous monitoring by a trained nurse specialist who was independent from those actually performing the procedure. Total monitored sedation time was 60 minutes. During the course of the procedure, the patient received Fentanyl 125 mcg and Versed 1 mg IV. The patient was given Ancef 2 grams IV for antibiotic prophylaxis prior to the procedure. TECHNIQUE: The risks, benefits, and alternatives were discussed and informed consent was obtained. Prior to beginning the procedure, Warden Protocol was performed to confirm the patient's identity and the planned procedure. Sterile barriers used during the procedure included cap, mask, hand hygiene, sterile gloves, sterile gown, and sterile drape. Chloraprep was used for cutaneous antisepsis. The patient was placed in the prone position on the fluoroscopy table. The T12 and L1 levels were localized with fluoroscopy with confirmation of site of maximal tenderness. 10 mL of 1:1 mixture of 1% lidocaine and 0.25% bupivacaine was injected for subcutaneous and periosteal anesthesia. The L1 vertebral body was accessed with a 10 gauge [place] introducer under fluoroscopic guidance via the right pedicle. The needle tip was advanced to the posterior 1/4 of the vertebral body. The needle tip position was verified with multiple fluoroscopic views. A 20 mm ballon was placed with cavity created across midline. The same procedure was repeated at the T12 level. Bone cement was prepared and delivered from the Laurel curve nitinol needle. In the L1 vertebral body, 3 mL of cement was injected with filling from pedicle to pedicle and superior to inferior endplate. In the T12 vertebral body, 3 mL of cement was injected with filling from pedicle to pedicle and superior to inferior endplate. The needles were removed and the skin was cleansed with hydrogen peroxide. Skin glue was placed at the needle entry site. The patient remained monitored in the recumbent position in the recovery area for one hour until the cement had polymerized. Complication: None Type: None ESTIMATED BLOOD LOSS: None CONDITION: Stable condition. DISCHARGED TO: Home FINDINGS: Initial fluoroscopic images demonstrate moderate compression deformities at T12 and L1 with increased height loss at T12 since 03/22/2020. There are postoperative changes of median sternotomy. Pelvic surgical clips are noted. The aorta is atherosclerotic. There is diffuse lumbar degenerative disc disease, worst and severe at L2-3 where there is mild retrolisthesis. Subsequent images demonstrate cement within the T12 and L1 vertebral bodies extending from the superior to inferior endplates and pedicle to pedicle. IMPRESSION: 1. T12 and L1 vertebral augmentation with cavity creation under fluoroscopic guidance. The patient had reduction of pain symptoms at the conclusion of the procedure. Dictated by: Stephanie Coe M.D. The radiology attending physician has personally reviewed this study, and had reviewed and/or edited this written report and agrees with it. Electronically signed by: Chris Frye M.D. Cassius Chambers MD IMG IR PROCEDURES Final Result documented in this encounter Visit Diagnoses Diagnosis Compression fracture of body of thoracic vertebra (CMS/HCC) (HCC) documented in this encounter Administered Medications Inactive Administered Medications - up to 3 most recent administrations Medication Order MAR Action Action Date Dose Rate Site bupivacaine (MARCAINE) 0.25 % (2.5 mg/mL) preservative free injection Code/trauma/sedation medication, Starting on Tue05/23/20 at 1116, Intra-Procedure (IR) Given 05/23/2020 11:21 AM CDT 5 mL Back Given 05/23/2020 11:16 AM CDT 5 mL B ack ceFAZolin (ANCEF) 2,000 mg/50 mL in dextrose (premix) Administer over 30 Minutes, Code/trauma/sedation continuous med, Starting on Tue05/23/20 at 1112 New Bag 05/23/2020 11:12 AM CDT 2 g fentaNYL (SUBLIMAZE) preservative free injection intravenous, Code/trauma/sedation medication, Starting on Tue05/23/20 at 1111 Given 05/23/2020 11:36 AM CDT 25 mcg Given 05/23/2020 11:15 AM CDT 50 mcg Given 05/23/2020 11:11 AM CDT 50 mcg lidocaine PF (XYLOCAINE) 10 mg/mL (1 %) preservative free injection Code/trauma/sedation medication, Starting on Tue05/23/20 at 1116, Intra-Procedure (IR), Indications: Administration of Local AnesthesiaIndications:Administration of Local Anesthesia Given 05/23/2020 11:21 AM CDT 5 mL Back Given 05/23/2020 11:16 AM CDT 5 mL B ack midazolam (VERSED) 1 mg/mL preservative free injection intravenous, Administer over 2 Minutes, Code/trauma/sedation medication, Starting on Tue05/23/20 at 1111, Intra-Procedure (IR) Given 05/23/2020 11:11 AM CDT 1 mg sodium chloride 0.9% infusion intravenous, Code/trauma/sedation continuous med, Starting on Tue05/23/20 at 1105 New Bag 05/23/2020 11:05 AM CDT 125 mL/hr 125 mL/hr documented in this encounter Active and Recently Administered Medications Times are shown in CDT. PRN Medication Order 05/21/2020 05/22/2020 05/23/2020 bupivacaine (MARCAINE) 0.25 % (2.5 mg/mL) preservative free injection (COMPLETED) Code/trauma/sedation medication, Starting on Tue05/23/20 at 1116, Intra-Procedure (IR) 1116 (Given - Provid er: Stephanie Coe MD)1121 (Given - Provider: Stephanie Coe MD) ceFAZolin (ANCEF) 2,000 mg/50 mL in dextrose (premix) (COMPLETED) Administer over 30 Minutes, Code/trauma/sedation continuous med, Starting on Tue05/23/20 at 1112 1112 (New Bag - Prov ider: Brianna Carvajal RN)1213 (Stopped - Provider: Brianna Carvajal RN) fentaNYL (SUBLIMAZE) preservative free injection (COMPLETED) intravenous, Code/trauma/sedation medication, Starting on Tue05/23/20 at 1111 1111 (Given - Provid er: Brianna Carvajal RN)1115 (Given - Provider: Brianna Carvajal, EDD)1136 (Given - Provider: Brianna Carvajal, EDD) lidocaine PF (XYLOCAINE) 10 mg/mL (1 %) preservative free injection (COMPLETED) Code/trauma/sedation medication, Starting on Tue05/23/20 at 1116, Intra-Procedure (IR), Indications: Administration of Local Anesthesia 1116 (Given - Provid er: Stephanie Coe MD)1121 (Given - Provider: Stephanie Coe MD) midazolam (VERSED) 1 mg/mL preservative free injection (COMPLETED) intravenous, Administer over 2 Minutes, Code/trauma/sedation medication, Starting on Tue05/23/20 at 1111, Intra-Procedure (IR) 1111 (Given - Provid er: Brianna Carvajal RN) sodium chloride 0.9% infusion (COMPLETED) intravenous, Code/trauma/sedation continuous med, Starting on Tue05/23/20 at 1105 1105 (New Bag - Prov ider: Brianna Carvajal RN)1213 (Stopped - Provider: Brianna Carvajal RN) documented in this encounter Care Teams Laborer Aquatic Life Relationship Specialty Start Date End Date Cassius Chambers MD [address] [address] PCP - General 08/12/16 12/30/20 documented as of this encounter
--- OUTSIDE RECORDS SUMMARY | 2024-02-28 15:36 | XMS_ITS | Encounter Summary ---
Author Organization [facility] Address [address] [place] [address] Phone Care Team Providers Care Power Transformer Repair Supervisor Name Role Phone Cassius Chambers MD Primary Care Provider [phone] Encounter Details Date Type Department Care Team (Late st Contact Info) Description 10/23/[address] 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5 mg. He said he didn't call the pharmacy because it's out of refills Pharmacy is [facility] @ [phone] documented in this encounter Plan of Treatment Not on file documented as of this encounter Visit Diagnoses Not on filedocumented in this encounter Discontinued Medications Medication Sig Discontinue Reason Start Date End Da te Eliquis 2.5 mg tablet Take 1 tablet by mouth twice daily Reorder 06/11/2020 10/23/2020 documented as of this encounter Care Teams Power Transformer Repair Supervisor Relationship Specialty Start Date End Date Cassius Chambers MD [address] [place] [address] PCP - General 08/12/16 12/30/20 documented as of this encounter
--- OUTSIDE RECORDS SUMMARY | 2024-02-28 15:36 | XMS_ITS | Encounter Summary ---
Author Organization [facility] Address [address] [place] [address] Care Team Providers Care Millwright Name Role Phone Cassius Chambers MD Primary Care Provider [phone] Reason for Visit * Reason Comments Hypertension Hyperlipidemia Sleeping Problem Encounter Details Date Type Department Care Team (Late st Contact Info) Description 09/30/2020 12:15 PM CDT Office Visit [facility] [address] [facility] [address] [place] [id number] Cassius Chambers MD [address] [facility] [address] [place] [address] Impaired fasting glucose (Primary Dx); Hyperlipidemia, unspecified hyperlipidemia type; Type 2 diabetes mellitus without complication, without long-term current use of insulin (CMS/HCC) (HCC); Essential hypertension, benign; Mixed hyperlipidemia; Decreased bone density; Cerebrovascular accident (CVA), unspecified mechanism (HCC); HTN (hypertension), benign Social History Tobacco Use Types Packs/Day Years Used Date Smoking Tobacco: Never Smokeless Tobacco: Never Alcohol Use Standard Drinks/Week Comments No 0 (1 standard drink = 0.6 oz pur e alcohol) Comments No Sex and Gender Information Value Date Recorded Sex Assigned at Not on file 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 Gender Identity Female 06/15/2023 1:45 PM CDT Sexual Orientation Straight 06/15/2023 1: 45 PM CDT documented as of this encounter Last Filed Vital Signs Vital Sign Reading Time Taken Comments Blood Pressure 122/78 09/30/2020 12:15 PM CDT Pulse 67 09/30/2020 12:15 PM CDT Temperature - - Respiratory Rate - - Oxygen Saturation - - Inhaled Oxygen Concentration - - Weight 59.9 kg (132 lb) 09/30/2020 12:15 PM CDT Height 154.9 cm (5' 1 ) 09/30/2020 12:15 PM CDT Body Mass Index 24.94 09/30/2020 12:15 PM CDT documented in this encounter Progress Notes * Cassius Chambers MD - 09/30/2020 12:15 PM CDT Office Visit Yuliana Johnson is a 79 y.o. female here for Hypertension, Hyperlipidemia, and Sleeping Problem Current Medications Current Outpatient Medications: ??? alendronate (FOSAMAX) 70 mg tablet, Take 1 tablet (70 mg total) by mouth every 7 days Take in the morning with a full glass of water, on an empty stomach, and do not take anything else by mouth or lie down for the next 30 min., Disp: 12 tablet, Rfl: 3 ??? amLODIPine (NORVASC) 10 mg tablet, Take 1 tablet (10 mg total) by mouth daily, Disp: 90 tablet,Rfl: 1 ??? carvediloL (COREG) 25 mg tablet, Take 1 tablet (25 mg total) by mouth 2 (two) times a day, Disp: 180 tablet, Rfl: 1 ??? clonazePAM (KlonoPIN) 0.5 mg tablet, Take 1 tablet (0.5 mg total) by mouth nightly, Disp: 30 tablet, Rfl: 2 ??? Eliquis 2.5 mg tablet, Take 1 tablet by mouth twice daily, Disp: 180 tablet, Rfl: 3 ??? fenofibrate (TRIGLIDE) 160 mg tablet, Take 1 tablet (160 mg total) by mouth daily, Disp: 90 tablet, Rfl: 0 ??? furosemide (LASIX) 20 mg tablet, Take 1 tablet (20 mg total) by mouth daily as needed (leg swelling or worsening shortness of breath), Disp: 30 tablet, Rfl: 1 ??? losartan (COZAAR) 100 mg tablet, Take 1 tablet (100 mg total) by mouth daily, Disp: 90 tablet, Rfl: 1 ??? metFORMIN (GLUCOPHAGE) 500 mg tablet, Take 1 tablet (500 mg total) by mouth 2 (two) times a daywith meals, Disp: 180 tablet, Rfl: 1 ??? pravastatin (PRAVACHOL) 40 mg tablet, Take 1 [...] Chest pain ??? Type 2 diabetes mellitus (HCC) ??? Dyslipidemia ??? HTN (hypertension), benign ??? Mitral valve insufficiency ??? Pulmonary hypertension (CMS/HCC) (HCC) ??? S/P mitral valve repair ??? Tricuspid valve disorder ??? CVA (cerebral vascular accident) (CMS/HCC) (HCC) ??? Compression fracture of T12 vertebra (HCC) Past Medical History: Diagnosis Date ??? Cancer [...] Preservative Free, Intramuscular 02/09/2019 ??? Influenza, Unspecified 01/15/2015 ??? Pneumococcal Conjugate PCV 13 08/21/2016 ??? Pneumococcal Conjugate, Unspecified 01/15/2015 ??? Pneumococcal Polysaccharide PPV23 01/15/2015 HPI Patient states that she is feeling generally well. She ambulates with a walker at home and is unsteady on her feet. She had gone through balance training previously with physical therapy and did not notice much change. She uses a wheelchair whenever she leaves the house and needs to come mobilize for any distance. She has had no further falls. Bone density confirmed osteoporosis of the hip and alendronate weekly has been added to her medical regimen. She had resolution of her back pain secondary to compression fracture with vertebroplasty. She reports no chest pain pressure palpitations or shortness of breath. She has no headaches dizziness or presyncope. She has had no dysarthria or amaurosis. She has no abdominal pain nausea vomiting indigestion or heartburn. Bowel habits are regular without rectal bleeding or melena. Review of Systems: No symptoms of incontinence COVID vaccination is complete Pump/Sensor Diagnosis: Length of times: Frequency of BG tests: For Duration: Frequency of Pump Site sites: Changes If change, Q2 days reason: Number of Injections per Day: Physical Exam Vitals BP 122/78 (BP Location: Right arm) Pulse 67 Ht 154.9 cm (5' 1 ) Wt 59.9 kg (132 lb) BMI 24.94 kg/m?? Wt Readings from Last 3 Encounters: 09/30/20 59.9 kg (132 lb) 06/03/20 59 kg (130 lb) 05/23/20 62.1 kg (137 lb) Body mass index is 24.94 kg/m??. General: NAD Neck: No goiter and no lymphadenopathy Lungs: CTA. No wheezing or rales CVS: RRR. No murmurs, gallops or rubs. No carotid bruits Abdomen: Soft, NTND. Normal bowel sounds without palpable liver and spleen. No CVAT Extremities: No edema Psych: Normal affect and speech Neuro: Alert and conversant. Cranial nerves 2-12 intact. Motor tone and strength are normal. Reflexes 2+ symmetrical. Wheelchair POCT HbA1C POCT Lipids Total cholesterol less than 100 mg/dL HDL 31 mg/dL triglycerides 63 mg/dL LDL undetectable and glucose 87 mg/dL Assessment 1. Osteoporosis status post lumbar spine compression fracture 2. T2 DM with stable control 3. Hypertension 4. Pulmonary hypertension 5. Hyperlipidemia 6. History of valvular heart disease post mitral valve repair 7. [id number]-[id number] dementia 8. History of CVA Plan: 1. Continue current therapy 2. Return visit 3-4 months There are no diagnoses linked to this encounter. Cassius Chambers MD documented in this encounter Plan of Treatment Not on file documented as of this encounter Procedures Procedure Name Priority Date/Time Associated Diagnosis Comments POCT HEMOGLOBIN A1C Routine 09/30/2020 1 2:48 PM CDT Impaired fasting glucose POCT LIPID PANEL Routine 09/30/2020 12:4 8 PM CDT Hyperlipidemia, unspecified hyperlipidemia type POCT GLUCOSE 61326 Routine 09/30/2020 12 :47 PM CDT Impaired fasting glucose documented in this encounter Results * POCT hemoglobin A1c (09/30/2020 12:48 PM CDT) Hemoglobin A1C, POC 5.3 Blood specimen (specimen) 09/30/2020 12:48 PM CDT us Cassius Chambers MD POINT OF CARE TEST ORDERABLES Final Result * POCT lipid panel (09/30/2020 12:48 PM CDT) HDL, POC 31 mg/dL Triglycerides, POC 63 mg/dL LDL Cholesterol POC n/a mg/dL Chol/HDL Ratio, POC n/a Non-HDL Cholesterol, POC n/a mg/dL Cholesterol Total, POC <100 mg/dL Capillary blood 09/30/2020 1 2:48 PM CDT Cassius Chambers MD POINT OF CARE TEST ORDERABLES Final Result * POCT glucose (09/30/2020 12:47 PM CDT) Glucose Blood, POC 87 mg/dL Blood specimen (specimen) 09/30/2020 12:47 PM CDT Cassius Chambers MD POINT OF CARE TEST ORDERABLES Final Result documented in this encounter Visit Diagnoses Diagnosis Impaired fasting glucose- Primary Hyperlipidemia, unspecified hyperlipidemia type Type 2 diabetes mellitus without complication, without long-term current use of insulin (CMS/HCC) (HCC) Essential hypertension, benign Mixed hyperlipidemia Decreased bone density Other disorders of bone and cartilage Cerebrovascular accident (CVA), unspecified mechanism (HCC) HTN (hypertension), benign Essential hypertension, benign documented in this encounter Care Teams Millwright Relationship Specialty Start Date End Date Cassius Chambers MD [address] [address] PCP - General 08/12/16 12/30/20 documented as of this encounter
--- OUTSIDE RECORDS SUMMARY | 2024-02-28 15:36 | XMS_ITS | Encounter Summary ---
Author Organization [facility] Address [address] [place] [address] Phone Care Team Providers Care Underground Utility Locator Name Role Phone Cassius Chambers MD Primary Care Provider [phone] Encounter Details Date Type Department Care Team (Latest Contact Info) Description 11/10/2020 11:30 AM CDT Office Visit [facility] Cardiology [address] [facility] [address] [place] [address] Sp Madrid MD [address] [facility] [address] [place] [address] Nonrheumatic mitral valve regurgitation (Primary Dx) Social History Tobacco Use Types Packs/Day Years Used Date Smoking Tobacco: Never Smokeless Tobacco: Never Alcohol Use Standard Drinks/Week Comments No 0 (1 standard drink = 0.6 oz pur e alcohol) Comments No Sex and Gender Information Value Date Recorded Sex Assigned at Not on file 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 Gender Identity Female 06/15/2023 1:45 PM CDT Sexual Orientation Straight 06/15/2023 1: 45 PM CDT documented as of this encounter Last Filed Vital Signs Vital Sign Reading Time Taken Comments Blood Pressure 131/72 11/10/2020 12:03 PM CDT Pulse 63 11/10/2020 12:03 PM CDT Temperature - - Respiratory Rate - - Oxygen Saturation 99% 11/10/2020 12:03 PM CDT Inhaled Oxygen Concentration - - Weight 59.6 kg (131 lb 6.4 oz) 11/10/2020 12:03 PM CDT Height 154.9 cm (5' 0.98 ) 11/10/2020 12:03 PM C DT Body Mass Index 24.84 11/10/2020 12:03 PM CDT documented in this encounter Patient Instructions * Patient Instructions* Nella Brown MA - 11/10/2020 11:30 AM CDT 6m documented in this encounter Progress Notes * Sp Madrid MD - 11/10/2020 11:30 AM CDT 11/10/2020 History of Present Illness: Yuliana Johnson is a pleasant 79 y.o. female who had tele med consult [...] Type 2 diabetes mellitus. 7. Dyslipidemia. She fell down tow month ago and had T12-L1 Fracture. She underwent vertebroplasty on 05/23/2020. .This was mechanical injury. She is short of breath. Her left eye floaters are not noticeable. . She had an KARLY done, No cardiac source of emboli [...] by mouth daily 90 tablet 1 ??? apixaban (Eliquis) 2.5 mg tablet Take 1 tablet (2.5 mg total) by mouth 2 (two) times a day 180 tablet 3 ??? carvediloL (COREG) 25 mg tablet Take 1 tablet (25 mg total) by mouth 2 (two) times a day 180 tablet 1 ??? clonazePAM (KlonoPIN) 0.5 mg tablet Take 1 tablet by mouth nightly 30 tablet 0 ??? fenofibrate (TRIGLIDE) 160 mg tablet Take 1 tablet (160 mg total) by mouth daily 90 tablet 1 ??? furosemide (LASIX) 20 mg tablet Take 1 tablet (20 mg total) by mouth daily as needed (leg swelling or worsening shortness of breath) 30 tablet 1 ??? HYDROcodone-acetaminophen (NORCO) 5-325 mg per tablet Take 1 tablet by mouth every 6 (six) hours as needed for pain 120 tablet 0 ??? losartan (COZAAR) 100 mg tablet Take 1 tablet (100 mg total) by mouth daily 90 tablet 1 ??? metFORMIN (GLUCOPHAGE) 500 mg tablet Take 1 tablet (500 mg total) by mouth 2 (two) times a day with meals 180 tablet 1 ??? pravastatin (PRAVACHOL) 40 mg tablet Take 1 tablet (40 mg total) by mouth daily 90 tablet 1 ??? zolpidem (AMBIEN) 10 mg tablet Take 1 tablet (10 mg total) by mouth nightly at bedtime. 90 tablet 0 No current facility-administered medications for this visit. PHYSICAL EXAMINATION There were no vitals taken for this visit. Physical Exam Constitutional: Appearance: She is well-developed. [...] LV strain pattern. Diastolic function: Pseudo normal 10/09/2018 Tc 112, HDL=34 LDL =56 Ttnyua=940 HbA1C 6.2 ECG done today : Assesment/Plan: 1. Chest pain with abnormal EKG. [...] : She have leg swelling , will continue lasix 20 mg a day for a week then prn only. Low salt diet. RTc 6 . . Please feel free to contact my office regarding her cardiac problems. Damien Norton MD fuel oil clerk Cardiology Division [facility] documented in this encounter Plan of Treatment Not on file documented as of this encounter Visit Diagnoses Diagnosis Nonrheumatic mitral valve regurgitation- Primary documented in this encounter Care Teams Underground Utility Locator Relationship Specialty Start Date End Date Cassius Chambers MD [address] [address] PCP - General 08/12/16 12/30/20 documented as of this encounter
--- OUTSIDE RECORDS SUMMARY | 2024-02-28 15:36 | XMS_ITS | Encounter Summary ---
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 Gender Identity Female 06/15/2023 1:45 PM CDT Sexual Orientation Straight 06/15/2023 1: 45 PM CDT documented as of this encounter Miscellaneous Notes * Telephone Encounter - Nova Handley RN - 05/14/2021 5:36 PM CDT Medicare or [employer] - pt spouse, Pedrito called me at 1415 on 05/14/14- pt is not eating or drinkinga lot and sleeps a lot- states has cont to have abd pain- states does not check BS- and that she is up now- I spoke w/ her and she is tired and not feeling well-denies cp/sob/fever/chills states urinating a litte- and had a small bm- per spouse, Pedrito states trying to get some soup down her-discussed concern for her getting dehydrated and having diabetes, as not does not check BS- encouraged to eat/drink [id number] states he will keep trying to get some soup down her- recommended a f/u w/ pcp as to hospital stay- encouraged to go to ER if not able to improve po intake-( I did call Francesca PUGA at pcp office as to concern as to hesitancy as to go to ER and concern as to dehydration- recommend a f/u w/ pcp- office had pt seen today- Med review done by Dr. Lauren)- Pedrito has my phone number-andto update me tomorrow if no er and still not doing well- Nova Handley RN, BSN [facility] Conference Reservationist for High Risk [phone] * Telephone Encounter - Bradley Garcia - 05/14/2021 2:57 PM CDT Patient called the [facility] office for Dr. Lauren and is scheduled to see him today (05/14/21). Thank you * Telephone Encounter - Nova Handley RN - 05/14/2021 11:48 AM CDT Medicare/[employer] - called pt again and no answer- Nova Handley RN, BSN [facility] Conference Reservationist for High Risk [phone] * Telephone Encounter - Diane Reyes RN - 05/13/2021 3:36 PM CDT Please help schedule Hosp FU * Telephone Encounter - Nova Handley RN - 05/13/2021 1:00 PM CDT [facility] or Medicare- per [facility] notes: ER admit to [facility] and per [facility] notes: 05/09/21 and d/c 05/12/21- 80 y.o. female with PMH T2DM, pHTN, HTN, CVA, MV repair (2014) on Eliquis who presents with dull, RLQ pain, normal WBC and LFTs. CT findings show large stone in GB neck and borderline distended GB. RUQ showing GB distention, borderline wall thickening, impacted stone and associated biliary sludge. ?? OR 05/11: laparoscopic cholecystectomy; small purulent spillage, cx sent Home w/ spouse- called pt and no response, and called spouse, line busy- called daughter, Azul and left a voice message- Nova Handley RN, BSN [facility] Conference Reservationist for High Risk [phone] documented in this encounter Plan of Treatment Not on file documented as of this encounter Visit Diagnoses Not on filedocumented in this encounter Care Teams Network Architect Relationship Specialty Start Date End Date Haris Lauren MD PCP - General Family Medicine 12/31/20 06/07/21 documented as of this encounter
--- OUTSIDE RECORDS SUMMARY | 2024-02-28 15:36 | XMS_ITS | Encounter Summary ---
Author Organization [facility] Address [address] [place] [address] Care Team Providers Care Waxer Operator Name Role Phone Cassius Chambers MD Primary Care Provider Encounter Details Date Type Department Care Team (Late st Contact Info) Description 09/10/2020 [facility] [address] [facility] [address] [place] [address] Cassius Chambers MD [address] [facility] [address] [place] [address] Social History Tobacco Use Types Packs/Day Years Used Date Smoking Tobacco: Never Smokeless Tobacco: Never Alcohol Use Standard Drinks/Week Comments No 0 (1 standard drink = 0.6 oz pur e alcohol) Comments No Sex and Gender Information Value Date Recorded Sex Assigned at Not on file 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 12 tablet 3 09/10/2020 documented in this encounter Miscellaneous Notes * Telephone Encounter - Jennifer Gomez MA - 09/10/2020 4:35 PM CDT Called , sent script * Telephone Encounter - Jennifer Gomez MA - 09/10/2020 4:33 PM CDT ----- Message from Cassius Chambers MD sent at 09/10/2020 7:05 AM CDT ----- Bone density shows osteoporosis in the hip. Call in Fosamax 70 mg q.week 12. Three refill. She needs to take this medication 1st thing in the morning and remain upright for at least 45 minutes beforeshe takes any other medication or has anything else to eat documented in this encounter Plan of Treatment Not on file documented as of this encounter Visit Diagnoses Not on filedocumented in this encounter Care Teams Waxer Operator Relationship Specialty Start Date End Date Cassius Chambers MD [address] [place] [address] PCP - General 08/12/16 12/30/20 documented as of this encounter
--- OUTSIDE RECORDS SUMMARY | 2024-02-28 15:36 | XMS_ITS | Encounter Summary ---
Author Organization [facility] Healthcare Address [address] [place] [address] Care Team Providers Care Radiological Equipment Specialist Name Role Phone Haris Lauren MD Primary Care Provider [phone] Encounter Details Date Type Department Care Team (Late st Contact Info) Description 05/11/2021 7:57 AM CDT Anesthesia Event [facility] Operating Room [address] [place] [address] Galdino Isaac MD [address] [place] [address] Aravind Mei MD [address] [place] [address] Anesthesia Record Procedure Summary Procedure Name Responsible Anesthesiologist Anesthesia Start Time Anesthesia Stop Time LAPAROSCOPIC CHOLECYSTECTOMY (Abdomen) Galdino Isaac MD 05/11/21 0757 05/11/21 1042 Events Date Time Event Comment 05/11/2021 0555 In Preop 0731 0757 An Start 0802 In Room 0802 An Start Data 0812 An Induction The patient was reevaluated immediately before moderate or deep sedation use and before anesthesia induction. 0814 An Intubation 0816 Anesthesia Ready 0834 Proc Start 0834 Incision Start 1021 Proc Fin 1024 An Extubation 1028 Out of Room 1039 an stop data 1042 Handoff to RN I completed my handoff to the receiving nurse during which we: 1. Patient identified 2. Responsible provider identified 3. Pertinent medical history reviewed 4. Procedure type and surgical course discussed 5. Intraoperative anesthetic management and any significant issues discussed 6. Expectations and concerns for postop period discussed 7. Questions solicited from receiving nurse 8. Patient disposition at the time of handoff: PACU 1042 An Stop Meds Name Total lidocaine (cardiac) syringe 2 % 60 mg propofol 120 mg fentaNYL 150 mcg succinylcholine 60 mg rocuronium 30 mg phenylephrine 100 mcg/mL 300 mcg ondansetron PF (ZOFRAN) 2 mg/mL injectio n 4 mg glycopyrrolate 0.6 mg neostigmine injection 1 mg/mL 3 mg cefOXitin (MEFOXITIN) 1,000 mg/10 mL in sterile water (premix) 1,000 mg 1,000 mg famotidine 20 mg magnesium sulfate 2 g/50 mL 2 g Lactated Ringer's (LR) infusion 1,000 mL * Agents Name O2% N2O O2 Air Sevoflurane Inspired Sevoflurane * Blood No blood administrations on file. Lines, Drains, and Airways Type Details Placement Removal Peripheral IV Placement Date: 05/09/21; Placement Time: 1500; Catheter Size: 20 G; Orientation: Right; Location: Antecubital; Removal Date: 05/12/21; Removal Time: 1233; Removal Reason: Discharge 05/09/21 1500 by Kleber Rutherford RN 05/12/21 1233 by Gracie Matson RN ETT Placement Date: 05/11/21; Placement Time: 0836 (created via procedure documentation); Mask Ventilation: 0; Technique: Direct laryngoscopy; Type: ETT - single; Single Lumen Tube Size: 7 mm; Cuffed: Yes; Laryngoscope: Lucy; Blade Size: 3; Location: Oral; Grade View: Grade I; Insertion Attempts: 1; Placement Verification: Auscultation, Capnometry; Removal Date: 05/11/21; Removal Time: 1024 05/11/21 0836 by Brigid Meyers CRNA 05/11/21 1024 by Brigid Meyers CRNA Peripheral IV Placement Date: 05/11/21; Placement Time: 0836 (created via procedure documentation); Catheter Size: 20 G; Orientation: Right; Location: Wrist; Site Prep: Alcohol; Insertion Attempts: 1; Removal Date: 05/12/21; Removal Time: 1233; Removal Reason: Discharge 05/11/21 0836 by Brigid Meyers CRNA 05/12/21 1233 by Gracie Matson RN RETIRED Surgical Site 05/11/21; 0905; Abdomen; 01/31/24 (Retired LDA, Removed/Completed by [employer] with LDA Utility); 1213 (Retired LDA, Removed/Completed by [employer] with LDA Utility) 05/11/21 0905 by Ingrid Hou RN 01/31/24 1213 by Discharge Provider, Automatic documented in this encounter Social History Tobacco [...] on file 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 Gender Identity Female 06/15/2023 1:45 PM CDT Sexual Orientation Straight 06/15/2023 1: 45 PM CDT documented as of this encounter OR Notes * Anesthesia Postprocedure Evaluation - Capri Michelle MD - 05/11/2021 12:45 PM CDT Patient: Yuliana Johnson Procedure Summary Date: 05/11/21 Room / Location: [facility] OR POD 2 ROOM 209 / [facility] OR POD 2 Anesthesia Start: 0757 Anesthesia Stop: 1042 Procedure: LAPAROSCOPIC CHOLECYSTECTOMY (N/A Abdomen) Diagnosis: Calculus of gallbladder without cholecystitis without obstruction (Calculus of gallbladder without cholecystitis without obstruction [K80.20]) Surgeons: Stephanie Castelan MD Responsible Provider: Galdino Isaac MD Anesthesia Type: general ASA Status: 4 Anesthesia Type: general Last vitals BP 111/55 Pulse 65 Temp 36.2 ??C (97.2 ??F) (Temporal) Resp 14 SpO2 97% Anesthesia Post Evaluation Patient location during evaluation: PACU Patient participation: complete - patient participated 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 Pt drowsy, but arouses to call - denies pain, N/V. Ready fordischarge to floor. No complications documented. Cosigned by Francheska Serrano MD PhD at 05/11/2021 1:08 PM CDT * Anesthesia Procedure Notes - Brigid Meyers CRNA - 05/11/2021 8:36 AM CDTAssociated Order(s): Peripheral IV Catheter Peripheral IV Catheter Patient location: OR Staff: Placed by: SECURITY OFFICER: Brigid Meyers CRNA Preprocedure prep: Prep solution: alcohol PPE: gloves and provider hat/mask PIV line: Laterality: right Site: wrist Catheter size: 20 g Technique: direct visualization and anatomical landmarks Procedure details: good blood return and occlusive dressing applied Number of attempts: 1 Assessment: Events: patient tolerated procedure well with no complications * Anesthesia Procedure Notes - Brigid Meyers CRNA - 05/11/2021 8:35 AM CDTAssociated Order(s): Airway Airway Patient location: OR Urgency: elective Indications for airway management: anesthesia Difficult airway: no Staff: Supervising provider: Galdino Isaac MD Placed by: FLAKITA: Brigid Meyers CRNA Emergent airway documentation: Risks and benefits discussed: yes Consent obtained: yes Consent given by: patient Airway prep: Preoxygenated: yes Patient position: sniffing MILS maintained throughout: yes Mask difficulty assessment: 0 - not attempted Sedation level during airway: GA Final airway details: Final airway type: endotracheal airway Tube type: ETT ETT size: 7.0 mm Cuffed: yes Technique used for successful ETT placement: direct laryngoscopy Devices/Methods used in placement: intubating stylet Insertion site: oral Blade type: Lucy Blade size: 3 Cormack-Lehane (direct): grade I - full view of glottis Cuff volume: 6 mL Cuff inflated with: air ETT to teeth: 21 cm Placement verified by: auscultation and CO2 detection Airway secured with: silk tape Number of attempts: 1 * Anesthesia Preprocedure Evaluation - Galdino Isaac MD - 05/11/2021 7:21 AM CDT Images from the original note were not included. Anesthesia Evaluation Yuliana Johnson is a 80 y.o. 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 Renal / Renal/ system: negative Musculoskeletal/Pain Pertinent negatives: chronic pain Musculoskeletal/Pain system: negative Endocrine / Other + Diabetes mellitus Review of Systems + previous transfusion + heartburn Pertinent negatives: productive cough; wheezing; SOB; recent cold/flu; fever; chest pain; palpitations; orthopnea; pedal edema; transfusion reaction; easy bruising; bleeding problems; syncope; chronic pain; nausea; dysphagia; diarrhea; dentures/partials; chipped/loose teeth; abdominal pain; diaphoresis and no unexpected weight change Patient Active Problem List Diagnosis ??? Arteriosclerotic [...] ??? Age-related osteoporosis without current pathological fracture ??? Abdominal pain ??? Calculus of gallbladder without cholecystitis without obstruction ??? Cholecystitis ??? Chronic diastolic heart failure (CMS/HCC) (HCC) Past Medical History: Diagnosis Date ??? Cancer (CMS/HCC) (HCC) breast ??? Diabetes mellitus (HCC) ??? Hyperlipidemia ??? Hypertension Past Surgical History: Procedure Laterality Date ??? HYSTERECTOMY ??? KYPHOPLASTY THORACIC N/A 05/23/2020 ??? MASTECTOMY Left ??? MITRAL VALVE REPAIR OB History No obstetric history on file. No Known Allergies Taking? Last Dose Start Date End Date Provider amLODIPine (NORVASC) 10 mg tablet 03/26/21 -- Haris Lauren MD Take 1 tablet (10 mg total) by mouth daily apixaban (Eliquis) 2.5 mg tablet 03/26/21 -- Haris Lauren MD Take 1 tablet (2.5 mg total) by mouth 2 (two) times a day with meals Notes: NEW RX REQUEST FOR PATIENT DUE TO USING NEW MAIL ORDER PHARM[facility] carvediloL (COREG) 25 mg tablet 03/26/21 -- Haris Lauren MD Take 1 tablet (25 mg total) by mouth 2 (two) times a day with meals clonazePAM (KlonoPIN) 0.5 mg tablet 03/25/21 -- Haris Lauren MD Take 1 tablet by mouth at bedtime as needed for anxiety fenofibrate (TRIGLIDE) 160 mg tablet 03/26/21 -- Hrais Lauren MD Take 1 tablet (160 mg total) by mouth daily losartan (COZAAR) 100 mg tablet 03/26/21 -- Haris Luaren MD Take 1 tablet (100 mg total) by mouth daily metFORMIN (GLUCOPHAGE) 500 mg tablet 03/26/21 -- Haris Lauren MD Take 1 tablet (500 mg total) by mouth 2 (two) times a day with meals pravastatin (PRAVACHOL) 40 mg tablet 03/26/21 -- Haris Lauren MD Take 1 tablet (40 mg total) by mouth daily tiotropium bromide (SPIRIVA RESPIMAT) 2.5 mcg/actuation inhaler 03/26/21 -- Haris Lauren MD Inhale 2 puffs daily Flag for Review Taking? Last Dose Start Date End Date Provider alendronate (FOSAMAX) 70 mg tablet 03/26/21 03/26/22 Haris Lauren MD Take 1 tablet (70 mg total) by mouth every 7 days Take in the morning with a full glass of water, on an empty stomach, and do not take anything else by mouth or lie down for the next 30 min. Current Facility-Administered Medications: ??? [MAR Hold] acetaminophen (TYLENOL) tablet 1,000 mg, 1,000 mg, oral, Q6H DAVID, 1,000 mg at 05/11/21 0502 ??? [MAR Hold] amLODIPine (NORVASC) tablet 10 mg, 10 mg, oral, Daily, 10 mg at 05/10/21 0911 ??? [MAR Hold] carvediloL (COREG) tablet 25 mg, 25 mg, oral, BID with meals (bkfst, dinner), 25 mg at 05/10/21 1731 ??? cefOXitin (MEFOXITIN) 1,000 mg/10 mL in sterile water (premix) 1,000 mg, 1,000 mg, intravenous,Once ??? dextrose 5% and sodium chloride 0.45% with potassium chloride 20 mEq/L infusion (premix), 50 mL/hr, intravenous, Continuous, Last Rate: 50 mL/hr at 05/11/21 0305, 50 mL/hr at 05/11/21 0305 ??? famotidine (PEPCID) tablet 20 mg, 20 mg, oral, Once ??? heparin in 0.9% sodium chloride 25,000 unit/250 mL infusion (premix), 0-33 Units/kg/hr, intravenous, Titrated, Stopped at 05/11/21 0200 ??? Lactated Ringer's (LR) infusion, 30 mL/hr, intravenous, Continuous, Last Rate: 30 mL/hr at 05/11/21 0613, 30 mL/hr at 05/11/21 0613 ??? Lactated Ringer's (LR) infusion, 30 mL/hr, intravenous, Continuous ??? [MAR Hold] ondansetron (ZOFRAN) injection 4 mg, 4 mg, intravenous, Once PRN ??? [MAR Hold] ondansetron (ZOFRAN) injection 4 mg, 4 mg, intravenous, Q6H PRN ??? [MAR Hold] oxyCODONE (ROXICODONE) tablet 5 mg, 5 mg, oral, Q4H PRN, 5 mg at 05/11/21 0546 ??? [MAR Hold] sodium chloride 0.9% flush 0.5-20 mL, 0.5-20 mL, intra-catheter, Q8H DAVID, 10 mL at 05/10/21 1215 ??? [MAR Hold] sodium chloride 0.9% flush 0.5-20 mL, 0.5-20 mL, intra-catheter, PRN ??? sodium chloride 0.9% flush 0.5-20 mL, 0.5-20 mL, intra-catheter, PRN ??? sodium chloride 0.9% flush 0.5-20 mL, 0.5-20 mL, intra-catheter, Q8H DAVID ??? sodium chloride 0.9% flush 0.5-20 mL, 0.5-20 mL, intra-catheter, PRN ??? [MAR Hold] umeclidinium (INCRUSE ELLIPTA) 62.5 mcg/actuation inhaler 62.5 mcg, 1 puff, inhalation, Daily (RT), 62.5 mcg at 05/10/21 0842 Social History Tobacco Use Smoking Status Never Smoker Smokeless Tobacco Never Used Substance and Sexual Activity Alcohol Use No Substance and Sexual Activity Drug Use No Family History Problem Relation Age of Onset ??? Hypertension Other Family history of hypertension - Relation: Grandmother (Added by TW Conv) ??? Hypertension Maternal Grandfather Family history of hypertension - Relation: Grandfather (Added by TW Conv)/Family history of hypertension - Relation: Grandfather (Added by TW Conv) ??? Hypertension Other Family history of hypertension - Relation: Grandmother (Added by TW Conv) Vitals: 05/11/21 0315 05/11/21 0610 05/11/21 0700 BP: 126/52 145/56 136/55 Pulse: 75 78 73 Resp: 18 26 19 Temp: 36.9 ??C (98.4 ??F) 37.2 ??C (99 ??F) SpO2: 96% 95% 92% PT: No results found for requested labs within last 720 hours. INR: No results found for requested labs within last 720 hours. APTT: 05/11/2021: 36 sec Hgb A1C: 05/10/2021: 5.9 % (H) CBC RBC: 05/11/2021: 4.28 M/cumm RDW: No results found for requested labs within last 720 hours. MCHC: 05/11/2021: 31.5 g/dL (L) MCH: 05/11/2021: 28.5 pg MCV: 05/11/2021: 90.4 fL Hct: 05/11/2021: 38.7 % Hgb: 05/11/2021: 12.2 g/dL WBC: 05/11/2021: 11.7 K/cumm (H) MPV: 05/11/2021: 11.7 fL Platelets: 05/11/2021: 182 K/cumm RDW CV: 05/11/2021: 14.1 % RDW Sd: 05/11/2021: 46.8 fL BMP Glucose: 05/11/2021: 150 mg/dL Calcium: 05/11/2021: 8.4 mg/dL (L) Sodium: 05/11/2021: 137 mmol/L Potassium: 05/11/2021: 4.2 mmol/L CO2: 05/11/2021: 21 mmol/L (L) Chloride: 05/11/2021: 108 mmol/L BUN: 05/11/2021: 13 mg/dL Creatinine: 05/11/2021: 0.92 mg/dL STOP-Bang Total Score: 2 Humpty Dumpty Total Score: 11 DOS Physical Exam Medical history, medications, and allergies reviewed. Attestation: This PAT evaluation 05/11/2021. Airway Exam: Mallampati: II Cervical ROM: FROM Cardiovascular Exam: Rate: regular Rhythm: regular Negative for Murmur Pulmonary Exam: LCTA, bilat EENT Exam: trachea midline Dental Exam: Appears intact Skin Exam: Turgor is normal. Abdominal Exam: Abdomen is soft. Current state: Patient's current state is cooperative. Anesthesia Plan ASA 4 My patient is approved for the Anesthesia Controlled Medication protocol when under care of a SECURITY OFFICER Planned anesthesia: General Team communication plan: oral ET tube Induction: Induction: intravenous. Postoperative Plan: No postoperative mechanical ventilation intended. Informed Consent: Discussed plan with SECURITY OFFICER. Anesthesia plan and risks discussed with patient. Consent and Attending signature: I and/or my designee have discussed the anesthesia plan, benefits, possible alternatives, parental presence at time of induction (if indicated), and clinically relevant risks that may include dental injury, unintentional awareness, and/or other complications. The patient and/or parent/legal guardian understand, and agree to proceed. All questions answered. documented in this encounter Plan of Treatment Not on file documented as of this encounter Procedures Procedure Name Priority Date/Time Associated Diagnosis Comments IA AN PROCEDURE PLACEHOLDER Routine 05/11/2021 8:36 AM CDT IA AN PROCEDURE PLACEHOLDER Routine 05/11/2021 8:35 AM CDT IA AN ELECTIVE ENDOTRACHEAL AIRWAY Routine 05/11/2021 8:35 AM CDT documented in this encounter Results * IA AN PROCEDURE PLACEHOLDER (05/11/2021 8:36 AM CDT) Narrative Brigid Meyers CRNA - 05/11/2021 8:36 AM CDT Brigid Meyers CRNA ? 05/11/2021 ??8:36 AM Peripheral IV Catheter Patient location: OR Staff: Placed by: FLAKITA: Brigid Meyers CRNA Preprocedure prep: Prep solution: alcohol PPE: gloves and provider hat/mask PIV line: Laterality: right Site: wrist Catheter size: 20 g Technique: direct visualization and anatomical landmarks Procedure details: good blood return and occlusive dressing applied Number of attempts: 1 Assessment: Events: patient tolerated procedure well with no complications Galdino Isaac MD ANESTHESIA ORDERABLES Miranda l Result * IA AN ELECTIVE ENDOTRACHEAL AIRWAY, IA AN PROCEDURE PLACEHOLDER (05/11/2021 8:35 AM CDT) Narrative Brigid Meyers CRNA - 05/11/2021 8:35 AM CDT Brigid Meyers CRNA ? 05/11/2021 ??8:36 AM Airway Patient location: OR Urgency: elective Indications for airway management: anesthesia Difficult airway: no Staff: Supervising provider: Galdino Isaac MD Placed by: SECURITY OFFICER: Brigid Meyers CRNA Emergent airway documentation: Risks and benefits discussed: yes Consent obtained: yes Consent given by: patient Airway prep: Preoxygenated: yes Patient position: sniffing MILS maintained throughout: yes Mask difficulty assessment: 0 - not attempted Sedation level during airway: GA Final airway details: Final airway type: endotracheal airway Tube type: ETT ETT size: 7.0 mm Cuffed: yes Technique used for successful ETT placement: direct laryngoscopy Devices/Methods used in placement: intubating stylet Insertion site: oral Blade type: Lucy Blade size: 3 Cormack-Lehane (direct): grade I - full view of glottis Cuff volume: 6 mL Cuff inflated with: air ETT to teeth: 21 cm Placement verified by: auscultation and CO2 detection Airway secured with: silk tape Number of attempts: 1 Galdino Isaac MD ANESTHESIA ORDERABLES Miranda l Result documented in this encounter Visit Diagnoses Not on filedocumented in this encounter Administered Medications Inactive Administered Medications - up to 3 most recent administrations Medication Order MAR Action Action Date Dose Rate Site cefOXitin (MEFOXITIN) 1,000 mg/10 mL in sterile water (premix) 1,000 mg 1,000 mg, intravenous, at 200 mL/hr, Administer over 3 Minutes, Once, On Tue05/11/21 at 0800, For 1 dose, Intra-Op, Indications: Prophylaxis, SurgicalIndications:Prophylaxis, Surgical Given 05/11/2021 8:16 AM CDT 1,000 mg famotidine (PEPCID) injection intravenous, Administer over 2 Minutes, As needed, Starting on Tue05/11/21 at 0825, Anesthesia Intra-op Given 05/11/2021 8:25 AM CDT 20 mg fentaNYL (SUBLIMAZE) preservative free injection intravenous, As needed, Starting on Tue05/11/21 at 0804, Anesthesia Intra-op Given 05/11/2021 8:56 AM CDT 25 mcg Given 05/11/2021 8:45 AM CDT 25 mcg Given 05/11/2021 8:09 AM CDT 50 mcg glycopyrrolate (ROBINUL) injection intravenous, Administer over 1 Minutes, As needed, Starting on Tue05/11/21 at 1010, Anesthesia Intra-op Given 05/11/2021 10:10 AM CDT 0.6 mg Lactated Ringer's (LR) infusion 30 mL/hr, intravenous, Continuous, Starting on Tue05/11/21 at 0630, Pre-Op, Rate/Dose Verify 05/11/2021 7:57 AM CDT 30 mL/hr New Bag 05/11/2021 6:13 AM CDT 30 mL/hr 30 mL/hr lidocaine (cardiac) (XYLOCAINE) preservative free injection intravenous, As needed, Starting on Tue05/11/21 at 0812, Anesthesia Intra-op, Indications: Ventricular ArrhythmiasIndications:Ventricular Arrhythmias Given 05/11/2021 8:12 AM CDT 60 mg magnesium sulfate 2 g/50 mL in water (premix) intravenous, Administer over 60 Minutes, As needed, Starting on Tue05/11/21 at 0841, Anesthesia Intra-op Given 05/11/2021 8:41 AM CDT 2 g neostigmine (PROSTIGMIN) injection intravenous, Administer over 3 Minutes, As needed, Starting on Tue05/11/21 at 1010, Anesthesia Intra-op Given 05/11/2021 10:10 AM CDT 3 mg ondansetron (ZOFRAN) injection intravenous, Administer over 2 Minutes, As needed, Starting on Tue05/11/21 at 1010, Anesthesia Intra-op Given 05/11/2021 10:10 AM CDT 4 mg phenylephrine (CATARINO-SYNEPHRINE) 1 mg/10 mL (100 mcg/mL) in sodium chloride 0.9% (premix) intravenous, As needed, Starting on Tue05/11/21 at 0820, Anesthesia Intra-op Given 05/11/2021 8:28 AM CDT 150 mcg Given 05/11/2021 8:20 AM CDT 150 mcg propofoL (DIPRIVAN) 10 mg/mL IV intravenous, As needed, Starting on Tue05/11/21 at 0812, Anesthesia Intra-op Given 05/11/2021 8:13 AM CDT 20 mg Given 05/11/2021 8:12 AM CDT 100 mg rocuronium (ZEMURON) injection intravenous, As needed, Starting on Tue05/11/21 at 0815, Anesthesia Intra-op Given 05/11/2021 9:28 AM CDT 10 mg Given 05/11/2021 8:15 AM CDT 20 mg succinylcholine (ANECTINE) injection intravenous, As needed, Starting on Tue05/11/21 at 0813, Anesthesia Intra-op Given 05/11/2021 8:13 AM CDT 60 mg documented in this encounter Care Teams Radiological Equipment Specialist Relationship Specialty Start Date End Date Haris Lauren MD PCP - General Family Medicine 12/31/20 06/07/21 documented as of this encounter
--- OUTSIDE RECORDS SUMMARY | 2024-02-28 15:37 | XMS_ITS | Encounter Summary ---
Author Organization [facility] Address [address] [place] [address] Phone Care Team Providers Care Assistant Boiler Operator Name Role Phone Cassius Chambers MD Primary Care Provider [phone] Encounter Details Date Type Department Care Team (Latest Contact Info) Description 11/15/2018 9:15 AM CDT Office Visit [facility] Cardiology [address] [place] [address] [place] [address] Sp Madrid MD [address] [facility] [address] [place] [address] Non-rheumatic mitral regurgitation (Primary Dx); Tricuspid valve disorder; HTN (hypertension), benign Social History Tobacco Use Types Packs/Day Years Used Date Smoking Tobacco: Never Smokeless Tobacco: Never Alcohol Use Standard Drinks/Week Comments No 0 (1 standard drink = 0.6 oz pur e alcohol) Comments Unknown Sex and Gender Information Value Date Recorded Sex Assigned at Not on file Legal Sex Female 11:30 PM ELECTRICAL CONTINUITY TESTER Gender Identity Female 06/15/2023 1:45 PM CDT Sexual Orientation Straight 06/15/2023 1: 45 PM CDT documented as of this encounter Last Filed Vital Signs Vital Sign Reading Time Taken Comments Blood Pressure 130/70 11/15/2018 9:18 AM CDT Pulse 67 11/15/2018 9:18 AM CDT Temperature - - Respiratory Rate - - Oxygen Saturation 97% 11/15/2018 9:18 AM CDT Inhaled Oxygen Concentration - - Weight 65.8 kg (145 lb) 11/15/2018 9:18 AM CDT Height 156.2 cm (5' 1.5 ) 11/15/2018 9:18 AM CDT Body Mass Index 26.96 11/15/2018 9:18 AM CDT documented in this encounter Patient Instructions * Patient Instructions* Sp Madrid MD - 11/15/2018 9:15 AM CDT RTc 6M documented in this encounter Progress Notes * Sp Madrid MD - 11/15/2018 9:15 AM CDT 11/15/2018 History of Present Illness: Yuliana Johnson is a pleasant 77 y.o. female who presents with 1. Mitral valve disorder. She had a [...] Type 2 diabetes mellitus. 7. Dyslipidemia. She is not short of breath. Her left eye floaters are still present. She had an KARLY done, No cardiac source of emboli noted. No syncope, fever noted. She had a cath done on 10/28/2014 before the valvular heart surgery; she had minimal atherosclerotic coronary artery disease at that time. She is afebrile. Denies CP, SOB, PND, Orthopnea, dizziness, or lightheadedness. Current Outpatient Medications Medication Sig Dispense Refill ??? amLODIPine (NORVASC) 10 mg tablet TAKE 1 TABLET BY MOUTH ONCE DAILY DIRECTED 90 tablet 3 ??? aspirin 81 mg tablet daily. ??? carvedilol (COREG) 25 mg tablet TAKE 1 TABLET BY MOUTH TWICE DAILY 180 tablet 3 ??? fenofibrate (TRIGLIDE) 160 mg tablet daily. ??? furosemide (LASIX) 40 mg tablet Take 1 tablet by mouth daily ??? glimepiride (AMARYL) 2 mg tablet daily. ??? losartan (COZAAR) 100 mg tablet daily. ??? metFORMIN (GLUCOPHAGE) 500 mg tablet daily. ??? nitroglycerin (NITROSTAT) 0.[address] under the tongue. ??? POTASSIUM CHLORIDE ER 20 mEq CR tablet TAKE 1 TABLET BY MOUTH ONCE DAILY 90 tablet 2 ??? pravastatin (PRAVACHOL) 40 mg tablet daily. ??? pyridoxine (vitamin B-6) 100 mg tablet Take 200 mg by mouth daily. ??? zolpidem (AMBIEN) 10 mg tablet TAKE 1 TABLET AT BEDTIME. No current facility-administered medications for this visit. Review of Systems Constitution: Negative for malaise/fatigue. Eyes: Negative for blurred vision. Cardiovascular: Negative for chest pain, claudication, dyspnea on exertion, leg swelling, palpitations and syncope. Respiratory: Negative for cough. Gastrointestinal: Negative for diarrhea, nausea and vomiting. Neurological: Negative for dizziness, headaches, light-headedness and weakness. Psychiatric/Behavioral: The patient is not nervous/anxious. PHYSICAL EXAMINATION Blood pressure 130/70, pulse 67, height 156.2 cm (5' 1.5 ), weight 65.8 kg (145 lb), SpO2 97 %. Physical Exam Constitutional: She is oriented to person, place, and time. She appears well- developed and well-nourished. No distress. Neck: Neck supple. No JVD present. Carotid bruit is not present. No thyromegaly present. Cardiovascular: Normal rate, regular rhythm, normal heart sounds and intact distal pulses. Exam reveals no gallop and no friction rub. No murmur heard. Pulmonary/Chest: Effort normal and breath sounds normal. No respiratory distress. She has no rales. Abdominal: Soft. There is no hepatosplenomegaly. Neurological: She is alert and oriented to person, place, and time. Skin: Skin is warm, dry and intact. Psychiatric: She has a normal mood and affect. Her behavior is normal. 10/09/2018 Tc 112, HDL=34 LDL =56 [id number]=245 HbA1C 6.2 ECG done today : Assesment/Plan: [...] negative for blood clot ,shunt or vegetations. 4. Dyslipidemia. She is on fenofibrate 160 mg a day and low-fat diet. Tolerates regimen well. 5. Type 2 diabetes mellitus. She is on metformin and glimepiride. HbA1c 6.2 on 10/09/2018 Follow-up in 6 months. Thank you for letting me seeing this patient. Please feel free to contact my office regarding her cardiac problems. Damien Norton MD packaging sales representative Cardiology Division [facility] documented in this encounter Plan of Treatment Not on file documented as of this encounter Visit Diagnoses Diagnosis Non-rheumatic mitral regurgitation- Primary Tricuspid valve disorder Tricuspid valve disorders, specified as nonrheumatic HTN (hypertension), benign Essential hypertension, benign documented in this encounter Care Teams Assistant Boiler Operator Relationship Specialty Start Date End Date Cassius Chambers MD [address] [facility] [address] [place] [address] PCP - General 08/12/16 12/30/20 documented as of this encounter
--- OUTSIDE RECORDS SUMMARY | 2024-02-28 15:37 | XMS_ITS | Encounter Summary ---
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 No / Unsure 05/16/2019 10:01 AM CDT documented as of this encounter Plan of Treatment Not on file documented as of this encounter Visit Diagnoses Not on filedocumented in this encounter Care Teams Cosmetology Educator Relationship Specialty Start Date End Date Cassius Chambers MD [address] [address] PCP - General 08/12/16 12/30/20 documented as of this encounter
--- OUTSIDE RECORDS SUMMARY | 2024-02-28 15:37 | XMS_ITS | Encounter Summary ---
Author Organization [facility] Address [address] [place] [address] Care Team Providers Care Hurl Shaker Name Role Phone Cassius Chambers MD Primary Care Provider Encounter Details Date Type Department Care Team (Late st Contact Info) Description 05/08/2020 Orders Only [facility] [address] [facility] [address] [facility] [place] [address] Cassius Chambers MD [address] [facility] [address] [place] [address] Type 2 diabetes mellitus without complication, without long-term current use of insulin ([facility]) (Primary Dx); Dyslipidemia; HTN (hypertension), benign; Arteriosclerotic vascular disease Social History Tobacco Use Types Packs/Day Years Used Date Smoking Tobacco: Never Smokeless Tobacco: Never Alcohol Use Standard Drinks/Week Comments No 0 (1 standard drink = 0.6 oz pur e alcohol) Comments No Sex and Gender Information Value Date Recorded Sex Assigned at Not on file Legal Sex Female 11:30 PM TOWN CLERK Gender Identity Female 06/15/2023 1:45 PM CDT Sexual Orientation Straight 06/15/2023 1: 45 PM CDT documented as of this encounter Plan of Treatment Scheduled Orders Name Type Priority Associated Diagnoses Orde r Schedule CBC with auto differential Lab Routine Type 2 diabetes mellitus without complication, without long-term current use of insulin ([facility]) Dyslipidemia HTN (hypertension), benign Arteriosclerotic vascular disease Expected: 05/08/2020, Expires: 05/08/2021 Comprehensive metabolic panel Lab Routine Type 2 diabetes mellitus without complication, without long-term current use of insulin (CMS/HCC) Dyslipidemia HTN (hypertension), benign Arteriosclerotic vascular disease Expected: 05/08/2020, Expires: 05/08/2021 Protime-INR Lab Routine Type 2 diabetes mellitus without complication, without long-term current use of insulin (CMS/HCC) Dyslipidemia HTN (hypertension), benign Arteriosclerotic vascular disease Expected: 05/08/2020, Expires: 05/08/2021 documented as of this encounter Visit Diagnoses Diagnosis Type 2 diabetes mellitus without complication, without long-term current use of insulin (CMS/HCC) (HCC)- Primary Dyslipidemia Other and unspecified hyperlipidemia HTN (hypertension), benign Essential hypertension, benign Arteriosclerotic vascular disease Generalized and unspecified atherosclerosis documented in this encounter Care Teams Hurl Shaker Relationship Specialty Start Date End Date Cassius Chambers MD [address] [address] PCP - General 08/12/16 12/30/20 documented as of this encounter
--- OUTSIDE RECORDS SUMMARY | 2024-02-28 15:37 | XMS_ITS | Encounter Summary ---
Author Organization [facility] Address [address] [place] [address] Care Team Providers Care Hospice Administrator Name Role Phone Cassius Chambers MD Primary Care Provider [phone] Reason for Visit * Reason Onset Date Comments Post fall03/24/2020 Encounter Details Date Type Department Care Team (Late st Contact Info) Description 03/24/2020 [facility] [address] [facility] [address] [place] [address] Cassius Chambers MD [address] [facility] [address] [place] [address] Post fall Social History Tobacco Use Types Packs/Day Years Used Date Smoking Tobacco: Never Smokeless Tobacco: Never Alcohol Use Standard Drinks/Week Comments No 0 (1 standard drink = 0.6 oz pur e alcohol) Comments No Sex and Gender Information Value Date Recorded Sex Assigned at Not on file Legal Sex Female 11:30 PM FLOORWALKER Gender Identity Female 06/15/2023 1:45 PM CDT Sexual Orientation Straight 06/15/2023 1: 45 PM CDT documented as of this encounter Miscellaneous Notes * Telephone Encounter - Melanie Wilkes MA - 03/24/2020 1:18 PM CST Patient fell and has compression fracture thoracic Was at [facility] Tuesday morning due to fall She was referred to Hui Adkins in [facility] for f/u FYI RWALKER documented in this encounter Plan of Treatment Not on file documented as of this encounter Visit Diagnoses Not on filedocumented in this encounter Care Teams Hospice Administrator Relationship Specialty Start Date End Date Cassius Chambers MD [address] [address] PCP - General 08/12/16 12/30/20 documented as of this encounter
--- OUTSIDE RECORDS SUMMARY | 2024-02-28 15:37 | XMS_ITS | Encounter Summary ---
Author Organization [facility] Address [address] [place] [address] Care Team Providers Care Wired Music Operator Name Role Phone Cassius Chambers MD Primary Care Provider [phone] Encounter Details Date Type Department Care Team (Late st Contact Info) Description 05/08/2020 Telephone [facility] Radiology [address] [place] [address] Estella Talley RN Social History Tobacco Use Types Packs/Day Years Used Date Smoking Tobacco: Never Smokeless Tobacco: Never Alcohol Use Standard Drinks/Week Comments No 0 (1 standard drink = 0.6 oz pur e alcohol) Comments No Sex and Gender Information Value Date Recorded Sex Assigned at Not on file Legal Sex Female 11:30 PM NURSING CARE PARTNER Gender Identity Female 06/15/2023 1:45 PM CDT Sexual Orientation Straight 06/15/2023 1: 45 PM CDT documented as of this encounter Miscellaneous Notes * Telephone Encounter - Estella Talley RN - 05/08/2020 9:03 AM NURSING CARE PARTNER [facility] Radiology. Dr. Puga reviewed CD imaging a (CT L spine) L1 & T12 amenable to biopsy. I spoke with the patint and relayed this information and plan is to move forward. Epic message sent to Dr. Chambers and RENETTA Navarro re: CBC, CMP, PT/INR, aPTT. After completion of lab work, we will then determine Eliquis hold based on Cr clearance and protocol. Approval to hold will beneeded from prescribing Dr. Sp Madrid (confirmed this is still prescribing MD with Mr. Johnson yesterday) ING CARE PARTNER documented in this encounter Plan of Treatment Not on file documented as of this encounter Visit Diagnoses Not on filedocumented in this encounter Care Teams Wired Music Operator Relationship Specialty Start Date End Date Cassius Chambers MD [address] [address] PCP - General 08/12/16 12/30/20 documented as of this encounter
--- OUTSIDE RECORDS SUMMARY | 2024-02-28 15:37 | XMS_ITS | Encounter Summary ---
Author Organization [facility] Address [address] [place] [address] Phone Care Team Providers Care Polishing Wheel Setter Name Role Phone Cassius Chambers MD Primary Care Provider [phone] Encounter Details Date Type Department Care Team (Late st Contact Info) Description 07/10/2018 Telephone [facility] Cardiology [address] [facility] 8th [place] [address] [place] [address] Sp Madrid MD [address] [facility] [address] [place] [address] Social History Tobacco Use Types Packs/Day Years Used Date Smoking Tobacco: Never Smokeless Tobacco: Never Alcohol Use Standard Drinks/Week Comments No 0 (1 standard drink = 0.6 oz pur e alcohol) Comments Unknown Sex and Gender Information Value Date Recorded Sex Assigned at Not on file Legal Sex Female 11:30 PM CHICKEN PICKER Gender Identity Female 06/15/2023 1:45 PM CDT Sexual Orientation Straight 06/15/2023 1: 45 PM CDT documented as of this encounter Miscellaneous Notes * Telephone Encounter - Florence Stallings - 07/10/2018 1:24 PM CDT [facility] PT RETURNING CALL TO RESCHEDULE APPT AT [facility] ON DOS 10/02/18. PLS CALL PT. documented in this encounter Plan of Treatment Not on file documented as of this encounter Visit Diagnoses Not on filedocumented in this encounter Care Teams Polishing Wheel Setter Relationship Specialty Start Date End Date Cassius Chambers MD [address] [place] [address] PCP - General 08/12/16 12/30/20 documented as of this encounter
--- OUTSIDE RECORDS SUMMARY | 2024-02-28 15:37 | XMS_ITS | Encounter Summary ---
Author Organization [facility] Facility Care Team Providers Care Store Operations Manager Name Role Phone Cassius Chambers MD Primary Care Provider [phone] Encounter Details Date Type Department Care Team (Latest Contact Info) Description 02/09/2019 Travel Social History Tobacco Use Types Packs/Day Years Used Date Smoking Tobacco: Never Smokeless Tobacco: Never Alcohol Use Standard Drinks/Week Comments No 0 (1 standard drink = 0.6 oz pur e alcohol) Comments No Sex and Gender Information Value Date Recorded Sex Assigned at Not on file Legal Sex Female 11:30 PM BUSINESS ANALYTICS MANAGER Gender Identity Female 06/15/2023 1:45 PM CDT Sexual Orientation Straight 06/15/2023 1: 45 PM CDT documented as of this encounter Plan of Treatment Not on file documented as of this encounter Visit Diagnoses Not on filedocumented in this encounter Care Teams Store Operations Manager Relationship Specialty Start Date End Date Cassius Chambers MD [address] [address] PCP - General 08/12/16 12/30/20 documented as of this encounter
--- OUTSIDE RECORDS SUMMARY | 2024-02-28 15:37 | XMS_ITS | Encounter Summary ---
Author Organization [facility] Address [address] [place] [address] Phone Care Team Providers Care Supervisor Fishing Name Role Phone Cassius Chambers MD Primary Care Provider [phone] Reason for Referral * (Routine) - Closed Specialty Diagnoses / Procedures Referred By Contac t Referred To Contact Diagnoses PAF (paroxysmal atrial fibrillation) (CMS/HCC) ([facility]) Procedures MCT Mobile Cardiac Telemetry Event Monitor Sp Madrid MD [address] [facility] [address] [place] [address] Phone: tel: fax: [facility] (All Locations) Referral ID Status Reason Start Date Expiration Date Visits Re quested Visits Authorized [id number] Closed 07/25/2019 02/02/2021 1 1 Encounter Details Date Type Department Care Team (Late st Contact Info) Description 07/25/2019 9:15 AM CDT Telemedicine [facility] [address] [facility] [address] [place] [address] Sp Madrid MD [address] [facility] [address] [place] [address] PAF (paroxysmal atrial fibrillation) (CMS/HCC) (Primary Dx) Social History Tobacco Use Types Packs/Day Years Used Date Smoking Tobacco: Never Smokeless Tobacco: Never Alcohol Use Standard Drinks/Week Comments No 0 (1 standard drink = 0.6 oz pur e alcohol) Comments No Sex and Gender Information Value Date Recorded Sex Assigned at Not on file Legal Sex Female 11:30 PM INDUSTRIAL ILLUMINATING ENGINEER Gender Identity Female 06/15/2023 1:45 PM CDT Sexual Orientation Straight 06/15/2023 1: 45 PM CDT documented as of this encounter Last Filed Vital Signs Vital Sign Reading Time Taken Comments Blood Pressure 122/63 07/25/2019 9:18 AM CDT Pulse - - Temperature - - Respiratory Rate - - Oxygen Saturation - - Inhaled Oxygen Concentration - - Weight 62.6 kg (138 lb) 07/25/2019 9:18 AM CDT Height 154.9 cm (5' 0.98 ) 07/25/2019 9:18 AM CD T Body Mass Index 26.09 07/25/2019 9:18 AM CDT documented in this encounter Patient Instructions * Patient Instructions* Sp Madrid MD - 07/25/2019 9:15 AM CDT 0 day event moniter for PAF RTc 4 m documented in this encounter Progress Notes * Sp Madrid MD - 07/25/2019 9:15 AM CDT This was a telemedicine visit with Yuliana esparza which took place via Telephone. During the visit, I was located [facility] and the patient was located Home. The session started at 9.35 am and ended at 9.46 am The patient has been informed that the visit may not be secure and acknowledged the information. I have explained the option of participating in a telephone or video visit during the COVID-19 public health emergency to the patient. After being given an opportunity to ask questions about and discuss this type of visit, the patient verbally consented to proceeding with the telephone/video visit.The patient understands that this service replaces an office visit and they may be billed and/or responsible for any applicable copayments. Sp Madrid MD 07/25/2019 History of Present Illness: Yuliana Johnson is a pleasant 78 y.o. female who had tele med consult [...] mouth daily 90 tablet 2 ??? apixaban (ELIQUIS) 2.5 mg tablet Take 1 tablet (2.5 mg total) by mouth 2 (two) times a day 56 tablet 0 ??? aspirin 325 mg tablet Take 1 tablet (325 mg total) by mouth daily 30 tablet 0 ??? carvediloL (COREG) 25 mg tablet Take 1 tablet by mouth twice daily 180 tablet 3 ??? fenofibrate (TRIGLIDE) 160 mg tablet Take 160 mg by mouth daily ??? losartan (COZAAR) 100 mg tablet Take 100 mg by mouth daily ??? metFORMIN (GLUCOPHAGE) 500 mg tablet Take 500 mg by mouth 2 (two) times a day with meals ??? pravastatin (PRAVACHOL) 40 mg tablet Take 40 mg by mouth nightly ??? zolpidem (AMBIEN) 10 mg tablet Take 10 mg by mouth nightly No current facility-administered medications for this visit. PHYSICAL EXAMINATION Blood pressure 122/63, height 154.9 cm (5' 0.98 ), weight 62.6 kg (138 lb). 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 Will d/c plavix and add eliquis 5 mg twice a day, will get 30 day event monitor to see if she gets PAF. . Follow-up in 4 months. Please feel free to contact my office regarding her cardiac problems. Damien Norton MD circular clerk Cardiology Division [facility] documented in this encounter Plan of Treatment Pending Results Name Type Priority Associated Diagnoses Date /Time MCT Mobile Cardiac Telemetry Event Monitor Cardiac Services Routine PAF (paroxysmal atrial fibrillation) ([facility]) 07/25/2019 9:52 AM CDT Scheduled Orders Name Type Priority Associated Diagnoses Orde r Schedule MCT Mobile Cardiac Telemetry Event Monitor Cardiac Services Routine PAF (paroxysmal atrial fibrillation) (CMS/HCC) Expected: 07/25/2019, Expires: 07/24/2020 documented as of this encounter Visit Diagnoses Diagnosis PAF (paroxysmal atrial fibrillation) (CMS/HCC) ([facility])- Primary Atrial fibrillation documented in this encounter Care Teams Supervisor Fishing Relationship Specialty Start Date End Date Cassius Chambers MD [address] [address] PCP - General 08/12/16 12/30/20 documented as of this encounter
--- OUTSIDE RECORDS SUMMARY | 2024-02-28 15:37 | XMS_ITS | Encounter Summary ---
Author Organization [facility] Address [address] [place] [address] Care Team Providers Care Fitter And Turner Name Role Phone Cassius Chambers MD Primary Care Provider [phone] Reason for Visit * Reason Comments Back Pain Diabetes Encounter Details Date Type Department Care Team (Late st Contact Info) Description 04/22/2020 1:00 PM STRAP MACHINE OPERATOR Office Visit [facility] [address] [facility] [address] [place] [address] Cassius Chambers MD [address] [facility] [address] [place] [address] Type 2 diabetes mellitus without complication, without long-term current use of insulin ([facility]) (Primary Dx); HTN (hypertension), benign; Dyslipidemia; Compression fracture of T12 vertebra, sequela Social History Tobacco Use Types Packs/Day Years Used Date Smoking Tobacco: Never Smokeless Tobacco: Never Alcohol Use Standard Drinks/Week Comments No 0 (1 standard drink = 0.6 oz pur e alcohol) Comments No Sex and Gender Information Value Date Recorded Sex Assigned at Not on file Legal Sex Female 11:30 PM STRAP MACHINE OPERATOR Gender Identity Female 06/15/2023 1:45 PM CDT Sexual Orientation Straight 06/15/2023 1: 45 PM CDT documented as of this encounter Last Filed Vital Signs Vital Sign Reading Time Taken Comments Blood Pressure - - Pulse - - Temperature - - Respiratory Rate - - Oxygen Saturation - - Inhaled Oxygen Concentration - - Weight 62.1 kg (137 lb) 04/22/2020 1:29 PM STRAP MACHINE OPERATOR Height 152.4 cm (5') 04/22/2020 1:29 PM STRAP MACHINE OPERATOR Body Mass Index 26.76 04/22/2020 1:29 PM STRAP MACHINE OPERATOR documented in this encounter Progress Notes * Cassius Chambers MD - 04/22/2020 1:00 PM CST Office Visit Yuliana Johnson is a 79 y.o. female here for Back Pain and Diabetes Current Medications Current Outpatient Medications: ??? amLODIPine (NORVASC) 10 mg tablet, Take 1 tablet by mouth once daily, Disp: 90 tablet, Rfl: 0 ??? apixaban (ELIQUIS) 2.5 mg tablet, Take 1 tablet (2.5 mg total) by mouth 2 (two) times a day, Disp: 56 tablet, Rfl: 0 ??? carvediloL (COREG) 25 mg tablet, Take 1 tablet by mouth twice daily, Disp: 180 tablet, Rfl: 3 ??? fenofibrate (TRIGLIDE) 160 mg tablet, Take 1 tablet by mouth once daily, Disp: 90 tablet, Rfl: 0 ??? HYDROcodone-acetaminophen (NORCO) 5-325 mg per tablet, Take 1 tablet by mouth every 6 (six) hours as needed for pain, Disp: 30 tablet, Rfl: 0 ??? losartan (COZAAR) 100 mg tablet, Take 1 tablet by mouth once daily, Disp: 90 tablet, Rfl: 0 ??? zolpidem (AMBIEN) 10 mg tablet, TAKE 1 TABLET BY MOUTH AT BEDTIME, Disp: 90 tablet, Rfl: 0 Allergies No Known Allergies Past Medical and Surgical History: Patient Active Problem List Diagnosis ??? Abnormal EKG ??? Arteriosclerotic vascular disease ??? Chest pain ??? Type 2 diabetes mellitus (CMS/HCC) ??? Dyslipidemia ??? HTN (hypertension), benign ??? Mitral valve insufficiency ??? Pulmonary hypertension (CMS/HCC) ??? S/P mitral valve repair ??? Tricuspid valve disorder ??? CVA (cerebral vascular accident) (CMS/HCC) Past Medical History: Diagnosis Date ??? [...] Split, Preservative Free, Intramuscular 02/09/2019 HPI Patient had been in her usual state of health until 03/19/2019 when she awakened in the line inspector hours to go to the bathroom and got a bed and fell. She struck the back of her head. The following day she went to [facility]. A head CT showed no acute changes. CT of the LS spine revealed a mild T12 compression fracture felt to be acute. Patient was given hydrocodone which she has been taking only at bedtime. The pain at times has been very severe. She is having difficulty sleeping. She has had no further falls. She ambulates independently in general. Patient has no polyuria polydipsia or nocturia. She has had no open sores and she notes no delayed healing. She has no foot pain numbness or paresthesias She reports no chest pain pressure palpitations or shortness of breath. She has no symptoms of TIAs. She has no headaches dizziness or presyncope. Review of Systems: No change in her bowel habits Pump/Sensor Diagnosis: Length of times: Frequency of BG tests: For Duration: Frequency of Pump Site sites: Changes If change, Q2 days reason: Number of Injections per Day: Physical Exam Vitals Ht 152.4 cm (5') Wt 62.1 kg (137 lb) BMI 26.76 kg/m?? Wt Readings from Last 3 Encounters: 04/22/20 62.1 kg (137 lb) 12/26/19 63.8 kg (140 lb 11.2 oz) 07/25/19 62.6 kg (138 lb) Body mass index is 26.76 kg/m??. General: NAD Extremities: No edema no spinal tenderness Psych: Normal affect and speech Neuro: Alert and conversant. Cranial nerves 2-12 intact. Motor tone and strength are normal. Reflexes 2+ symmetrical. Gait is normal. POCT HbA1C POCT Lipids Assessment 1. T12 compression fracture following a fall 2. T2 DM with history of stable control 3. Hypertension 4. Hyperlipidemia 5. History of CVA on chronic anticoagulation Plan: I discussed the possibility of vertebroplasty with the patient her and they would prefer tostay at home with analgesics at this time. Continue current therapy Return visit 6-8 weeks Bone density on return They know to feel free to call me if they change their minds regarding vertebroplasty Refill [place] 5/325 number 60 There are no diagnoses linked to this encounter. Cassius Chambers MD P MACHINE OPERATOR documented in this encounter Plan of Treatment Not on file documented as of this encounter Procedures Procedure Name Priority Date/Time Associated Diagnosis Comments POCT GLUCOSE 15977 Routine 04/22/2020 5: 04 PM STRAP MACHINE OPERATOR Type 2 diabetes mellitus without complication, without long-term current use of insulin (CMS/HCC) HTN (hypertension), benign Dyslipidemia Compression fracture of T12 vertebra, sequela POCT HEMOGLOBIN A1C Routine 04/22/2020 5 :04 PM STRAP MACHINE OPERATOR Type 2 diabetes mellitus without complication, without long-term current use of insulin (CMS/HCC) HTN (hypertension), benign Dyslipidemia Compression fracture of T12 vertebra, sequela POCT LIPID PANEL Routine 04/22/2020 5:04 PM STRAP MACHINE OPERATOR Type 2 diabetes mellitus without complication, without long-term current use of insulin (CMS/HCC) HTN (hypertension), benign Dyslipidemia Compression fracture of T12 vertebra, sequela documented in this encounter Results * POCT lipid panel (04/22/2020 5:04 PM STRAP MACHINE OPERATOR) HDL, POC 33 mg/dL Triglycerides, POC 168 mg/dL LDL Cholesterol POC 35 mg/dL Chol/HDL Ratio, POC 3.1 Non-HDL Cholesterol, POC 69 mg/dL Cholesterol Total, POC 102 mg/dL Capillary blood 04/22/2020 5 :04 PM STRAP MACHINE OPERATOR us Cassius Chambers MD POINT OF CARE TEST ORDERABLES Final Result * POCT hemoglobin A1c (04/22/2020 5:04 PM STRAP MACHINE OPERATOR) Hemoglobin A1C, POC 6.1 Blood specimen (specimen) 04/22/2020 5:04 PM STRAP MACHINE OPERATOR us Cassius Chambers MD POINT OF CARE TEST ORDERABLES Final Result * POCT glucose (04/22/2020 5:04 PM STRAP MACHINE OPERATOR) Glucose Blood, POC 147 mg/dL Blood specimen (specimen) 04/22/2020 5:04 PM STRAP MACHINE OPERATOR us Cassius Chambers MD POINT OF CARE TEST ORDERABLES Final Result documented in this encounter Visit Diagnoses Diagnosis Type 2 diabetes mellitus without complication, without long-term current use of insulin ([facility]) ([facility])- Primary HTN (hypertension), benign Essential hypertension, benign Dyslipidemia Other and unspecified hyperlipidemia Compression fracture of T12 vertebra, sequela documented in this encounter Discontinued Medications Medication Sig Discontinue Reason Start Date End Da te aspirin 325 mg tabletIndications:cerebr al ischemia,Cerebral Ischemia Take 1 tablet (325 mg total) by mouth daily 02/12/2019 04/22/2020 documented as of this encounter Care Teams Fitter And Turner Relationship Specialty Start Date End Date Csasius Chambers MD [address] [facility] [address] [place] [address] PCP - General 08/12/16 12/30/20 documented as of this encounter
--- OUTSIDE RECORDS SUMMARY | 2024-02-28 15:37 | XMS_ITS | Encounter Summary ---
Author Organization [facility] Address [address] [place] [address] Care Team Providers Care Ethylene Plant Operator Name Role Phone Cassius Chambers MD Primary Care Provider [phone] Encounter Details Date Type Department Care Team (Late st Contact Info) Description 05/07/2020 Telephone [facility] Radiology [address] [place] [address] Estella Talley RN Social History Tobacco Use Types Packs/Day Years Used Date Smoking Tobacco: Never Smokeless Tobacco: Never Alcohol Use Standard Drinks/Week Comments No 0 (1 standard drink = 0.6 oz pur e alcohol) Comments No Sex and Gender Information Value Date Recorded Sex Assigned at Not on file Legal Sex Female 11:30 PM BRICK OFFBEARER Gender Identity Female 06/15/2023 1:45 PM CDT Sexual Orientation Straight 06/15/2023 1: 45 PM CDT documented as of this encounter Miscellaneous Notes * Telephone Encounter - Estella Talley RN - 05/07/2020 12:59 PM BRICK OFFBEARER [facility] Radiology. Patient's daughter delivered imaging CD (CT L spine & radiographs L spine 4 [id number]) uploaded/referenced in stacie. Sent to Dr. Puga for review K OFFBEARER documented in this encounter Plan of Treatment Not on file documented as of this encounter Visit Diagnoses Not on filedocumented in this encounter Care Teams Ethylene Plant Operator Relationship Specialty Start Date End Date Cassius Chambers MD [address] [address] PCP - General 08/12/16 12/30/20 documented as of this encounter
--- OUTSIDE RECORDS SUMMARY | 2024-02-28 15:37 | XMS_ITS | Encounter Summary ---
Author Organization [facility] Address [address] [place] [address] Phone Care Team Providers Care Motion Picture Camera Lens Technician Name Role Phone Cassius Chambers MD Primary Care Provider [phone] Reason for Referral * Cardiology (Routine) - Closed Specialty Diagnoses / Procedures Referred By Cata quintanilla Referred To Contact Diagnoses Nonrheumatic mitral valve regurgitation Procedures Transthoracic Echo Complete W Doppler/CF Yarely Kilpatrick MD [address] [facility] [address] [place] [address] Phone: tel: fax: [facility] (All Locations) Referral ID Status Reason Start Date Expiration Date Visits Re quested Visits Authorized [id number] Closed 12/26/2019 01/24/2021 1 1 Encounter Details Date Type Department Care Team (Latest Contact Info) Description 12/26/2019 10:15 AM CDT Office Visit [facility] Cardiology [address] [facility] [address] [place] [address] Yarely Kilpatrick MD [address] [facility] [address] [place] [address] Nonrheumatic mitral valve regurgitation (Primary Dx) Social History Tobacco Use Types Packs/Day Years Used Date Smoking Tobacco: Never Smokeless Tobacco: Never Alcohol Use Standard Drinks/Week Comments No 0 (1 standard drink = 0.6 oz pur e alcohol) Comments No Sex and Gender Information Value Date Recorded Sex Assigned at Not on file Legal Sex Female 11:30 PM SUPPLY CHAIN DEVELOPMENT MANAGER Gender Identity Female 06/15/2023 1:45 PM CDT Sexual Orientation Straight 06/15/2023 1: 45 PM CDT documented as of this encounter Last Filed Vital Signs Vital Sign [place] Time Taken Comments Blood Pressure 146/77 12/26/2019 10:05 AM CDT Pulse 71 12/26/2019 10:05 AM CDT Temperature - - Respiratory Rate - - Oxygen Saturation 97% 12/26/2019 10: 05 AM CDT Inhaled Oxygen Concentration - - Weight 63.8 kg (140 lb 11.2 oz) 020 10:05 AM CDT Height 154.9 cm (5' 0.98 ) 12/26/2019 1 0:05 AM CDT Body Mass Index 26.6 12/26/2019 10:05 AM CDT documented in this encounter Patient Instructions * Patient Instructions* Yarely Kilpatrick MD - 12/26/2019 10:15 AM CDT 4m + echo with doppler documented in this encounter Progress Notes * Yarely Kilpatrick MD - 12/26/2019 10:15 AM CDT 12/26/2019 History of Present Illness: Yuliana Johnson is [...] 2 diabetes mellitus. 7. Dyslipidemia. She is short of breath. Her left eye floaters are not noticeable. . She had an KARLY done, No cardiacsource [...] for this visit. PHYSICAL EXAMINATION Blood pressure 146/77, pulse 71, height 154.9 cm (5' 0.98 ), weight 63.8 kg (140 lb 11.2 oz), SpO2 97 %. Physical Exam Constitutional: She is oriented to person, place, and time. She appears well- developed and well-nourished. HENT: Head: Normocephalic and atraumatic. Eyes: Pupils are equal, round, and reactive to light. Conjunctivae are normal. No Xanthelasma Neck: Neck supple. No JVD present. No thyromegaly present. Cardiovascular: Normal rate, regular rhythm, normal heart sounds and intact distal pulses. Exam reveals no gallop and no friction rub. No murmur heard. Pulmonary/Chest: Effort normal and breath sounds normal. No respiratory distress. She has no wheezes. She has no rales. She exhibits no tenderness. Abdominal: Soft. Bowel sounds are normal. She exhibits no mass. There is no abdominal tenderness. Musculoskeletal: Normal range of motion. General: No tenderness or edema. Neurological: She is alert and oriented to person, place, and time. She has normal reflexes. Skin: Skin is warm and dry. No rash noted. No erythema. Psychiatric: She has a normal mood and affect. 10/09/2018 Tc 112, HDL=34 LDL =56 Owwxcs=[id number] HbA1C 6.2 ECG done today : Assesment/Plan: [...] negative for blood clot ,shunt or vegetations. Will get a echocardiogram with Doppler to assess the mitral and the tricuspid valve with the next visit. 4. Dyslipidemia. She is on fenofibrate 160 mg a day and low-fat diet. Tolerates regimen well. 5. Type 2 diabetes mellitus. She is on metformin and glimepiride. HbA1c 6.2 on 10/09/2018 6. 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 She is on eliquis 2.5 mg twice a day, RTc 4 M Follow-up in 4 months. Please feel free to contact my office regarding her cardiac problems. Damien Norton MD hat steamer Cardiology Division [facility] documented in this encounter Plan of Treatment Not on file documented as of this encounter Results * TRANSTHORACIC ECHO (TTE) COMPLETE W DOPPLER/CF WO CONTRAST (04/28/2020 11:26 AM SUPPLY CHAIN DEVELOPMENT MANAGER) Anatomical Region Laterality Modality Ultrasound 04/28/2020 10:3 0 AM SUPPLY CHAIN DEVELOPMENT MANAGER Narrative 04/28/2020 9:44 PM SUPPLY CHAIN DEVELOPMENT MANAGER Patient name: Yuliana Johnson Date of test: 04/28/2020 Type of test: TTE w/Doppler Hospital #: [id number] Date of : 1940 (F) Floor Trader: Bacilio Muñiz [facility] RVT Referring Physician: YARELY KILPATRICK MD Contrast Agent: Contrast Administered by: Supervised/Interpreted by: Yarely Kilpatrick MD Diagnosis: Location: [place] Reason for test: Non rheumatic mitral valve regurgitation MV Structure: normal, ?MV Motion: Normal, ?? Mitral Annulus: annuloplasty AV Structure: tricuspid and is Normal, ?? AV Motion: Normal Aotic root: Normal, ?TM: Normal, ?? PV: Normal Valvular Vegetations: none seen, ?Mass/Thrombi: none seen RA: Normal Measurements: ?M-Mode ?Normal ? Aotic Root: ? <3.8 ? LA: ? <3.8 ? RV: ? <2.8 ? LV(ED): ? <5.7 ? LV(ES): ? Variable ?2D Linear Normal ? Aotic Root: 2.9 cm ?<3.6 ? Ao Indexed: 1.8 cm/M2 <2.0 ? LA: ? 3.3 cm ?<3.8 ? RV: ? 3.0 cm ?<4.2 ? LV(ED): ? 4.3 cm ?<5.3 ? LV(ES): ? 2.5 cm ?<3.5 ?2D Vol. ?? Normal ?Indexed ?? Indexed Normal RA: ? 39.0 ml ? 24.5 ml/M2 ?9-33 ? LA: ? 57.0 ml ? 35.9 ml/M2 ?16-34 ? RV: ? <11.6 ? LV(ED): ? 74.0 ml ?? 46-106 ?46.6 ml/M2 ?<62 ? LV(ES): ? 23.0 ml ?? 14-42 ? 14.5 ml/M2 ?<25 ?3D Vol. ? Indexed Normal LV(ED): ?<62 ? LV(ES): ?<24 ? LV EF: 69 % ?? (Normal: >=54%) ?? LV Septum: 1.1 cm ?(Normal: <0.9 cm) Wall Motion Scoring (1=Normal 2=Hypo 3=Akinetic 4=Dyskin./Aneurysm 0=Not visualized) Parasternal Long [place]:MAS=1 BAS=1 MIL=1 ESTUARDO=1 Parasternal Short [place]:MAS=1 MIS=1 SD=1 MIL=1 MAL=1 MA=1 Apical 4 Chambers:=1 MIS=1 BIS=1 BAL=1 MAL=1 AL=1 AC=1 Apical 2 Chambers:AI=1 SD=1 BI=1 BA=1 MA=1 AA=1 AC=1 LV Global Longitudinal Strain: -19.1% ??(Normal <-17%) RV Global Longitudinal Strain: LV [...] DOPPLER/COLOR FOLOW DOPPLER COMMENTS: No AR seen, S/P MV annuloplasty ring ??No MR seen, no , no MS, normal TV, normal PV. Diastolic function: Pseudo normal SUMMARY: LA is mildly dilated. Normal RV cavity size. LV cavity size is normal. Normal LV wall thickness/mass. Normal Inferior vena cava. Normal aorta. ??No AR seen, S/P MV annuloplasty ring ??No MR seen, no , no MS, normal TV, normal PV. LVEF 69%.Normal global LV Myocardial longitudinal function and LV strain pattern. Diastolic function: Pseudo normal Patient's Resident : Non ?Confirmed on ??04/28/2020 - 21:44:53 by Yarely Kilpatrick MD By signing this report, the attending nurse sane certifies that he or she has personally supervised and interpreted the echocardiogram and has reviewed and or edited and agrees with the written comments contained within the report. Procedure Note Yarely Kilpatrick MD - 04/28/2020 Patient name: Yuliana Johnson Date of test: 04/28/2020 Type of test: TTE w/Doppler [place] [facility] #: 0 Date of : 1940 (F) Floor Trader: Bacilio Muñiz [facility] Referring Physician: YARELY KILPATRICK MD Contrast Agent: Contrast Administered by: Supervised/Interpreted by: Yarely Kilpatrick MD Diagnosis: Location: [facility] Reason for test: Non rheumatic mitral valve regurgitation MV Structure: normal, MV Motion: Normal, Mitral Annulus: annuloplasty AV Structure: tricuspid and is Normal, AV Motion: Normal Aotic root: Normal, TM: Normal, PV: Normal Valvular Vegetations: none seen, Mass/Thrombi: none seen RA: Normal Measurements: M-Mode Normal Aotic Root: <3.8 LA: <3.8 RV: <2.8 LV(ED): <5.7 LV(ES): Variable 2D Linear Normal Aotic Root: 2.9 cm <3.6 Ao Indexed: 1.8 cm/M2 <2.0 LA: 3.3 cm <3.8 RV: 3.0 cm <4.2 LV(ED): 4.3 cm <5.3 LV(ES): 2.5 cm <3.5 2D Vol. Normal Indexed Indexed Normal RA: 39.0 ml 24.5 ml/M2 9-33 LA: 57.0 ml 35.9 ml/M2 16-34 RV: <11.6 LV(ED): 74.0 ml 46-106 46.6 ml/M2 <62 LV(ES): 23.0 ml 14-42 14.5 ml/M2 <25 3D Vol. Indexed Normal LV(ED): <62 LV(ES): <24 LV EF: 69 % (Normal: >=54%) LV Septum: 1.1 cm (Normal: <0.9 cm) Wall Motion Scoring (1=Normal 2=Hypo 3=Akinetic 4=Dyskin./Aneurysm 0=Not visualized) Parasternal Long [place]:MAS=1 BAS=1 MIL=1 ESTUARDO=1 Parasternal Short [place]:MAS=1 MIS=1 SD=1 MIL=1 MAL=1 MA=1 Apical 4 Chambers:=1 MIS=1 BIS=1 BAL=1 MAL=1 AL=1 AC=1 Apical 2 Chambers:AI=1 SD=1 BI=1 BA=1 MA=1 AA=1 AC=1 LV Global Longitudinal Strain: -19.1% (Normal <-17%) RV Global Longitudinal Strain: LV [...] DOPPLER/COLOR FOLOW DOPPLER COMMENTS: No AR seen, S/P MV annuloplasty ring No MR seen, no , no MS, normal TV, normal PV. Diastolic function: Pseudo normal SUMMARY: LA is mildly dilated. Normal RV cavity size. LV cavity size is normal. Normal LV wall thickness/mass. Normal Inferior vena cava. Normal aorta. No AR seen, S/P MV annuloplasty ring No MR seen, no , no MS, normal TV, normal PV. LVEF 69%.Normal global LV Myocardial longitudinal function and LV strain pattern. Diastolic function: Pseudo normal Patient's Resident : Non Confirmed on 04/28/2020 - 21:44:53 by Yarely Kilpatrick MD By signing this report, the attending nurse sane certifies that he or she has personally supervised and interpreted the echocardiogram and has reviewed and or edited and agrees with the written comments contained within the report. us Yarely Kilpatrick MD CV ECHO PROCEDURES Final Resul t documented in this encounter Visit Diagnoses Diagnosis Nonrheumatic mitral valve regurgitation- Primary Nonrheumatic mitral valve regurgitation documented in this encounter Care Teams Motion Picture Camera Lens Technician Relationship Specialty Start Date End Date Cassius Chambers MD [address] [place] [address] PCP - General 08/12/16 12/30/20 documented as of this encounter
--- OUTSIDE RECORDS SUMMARY | 2024-02-28 15:37 | XMS_ITS | Encounter Summary ---
Author Organization [facility] Address [address] [place] [address] Phone Care Team Providers Care Traffic Engineer Name Role Phone Cassius Chambers MD Primary Care Provider [phone] Reason for Visit * Cardiology (Routine) - Closed Specialty Diagnoses / Procedures Referred By Cata quintanilla Referred To Contact Diagnoses Nonrheumatic mitral valve regurgitation Procedures Transthoracic Echo Complete W Doppler/CF Sp Kilpatrick MD [address] [facility] [address] [place] [address] Phone: tel: fax: [facility] (All Locations) Referral ID Status Reason Start Date Expiration Date Visits Re quested Visits Authorized [id number] Closed 12/26/2019 01/24/2021 1 1 Encounter Details Date Type Department Care Team (Latest Contact Info) Description 04/28/2020 10:30 AM SENIOR FINANCIAL REPORTING ANALYST Ancillary Procedure [facility] Cardiology [address] [place] [address] [address] [place] [address] Nonrheumatic mitral valve regurgitation Social History Tobacco Use Types Packs/Day Years Used Date Smoking Tobacco: Never Smokeless Tobacco: Never Alcohol Use Standard Drinks/Week Comments No 0 (1 standard drink = 0.6 oz pur e alcohol) Comments No Sex and Gender Information Value Date Recorded Sex Assigned at Not on file Legal Sex Female 11:30 PM SENIOR FINANCIAL REPORTING ANALYST Gender Identity Female 06/15/2023 1:45 PM CDT Sexual Orientation Straight 06/15/2023 1: 45 PM CDT documented as of this encounter Plan of Treatment Not on file documented as of this encounter Procedures Procedure Name Priority Date/Time Associated Diagnosis Comments TRANSTHORACIC ECHO (TTE) COMPLETE W DOPPLER/CF WO CONTRAST Routine 04/28/2020 11:26 AM SENIOR FINANCIAL REPORTING ANALYST Nonrheumatic mitral valve regurgitation documented in this encounter Results * TRANSTHORACIC ECHO (TTE) COMPLETE W DOPPLER/CF WO CONTRAST (04/28/2020 11:26 AM SENIOR FINANCIAL REPORTING ANALYST) Anatomical Region Laterality Modality Ultrasound 04/28/2020 10:3 0 AM SENIOR FINANCIAL REPORTING ANALYST Narrative 04/28/2020 9:44 PM SENIOR FINANCIAL REPORTING ANALYST Patient name: Yuliana Johnson Date of test: 04/28/2020 Type of test: TTE w/Doppler [facility] #: 0 Date of : 1940 (F) Piece Dyer: Baciloi Muñiz [facility] RVT Referring Physician: SP KILPATRICK MD Contrast Agent: Contrast Administered by: Supervised/Interpreted by: Sp Kilpatrick MD Diagnosis: Location: [facility] Reason for test: Non rheumatic mitral valve [...] 2=Hypo 3=Akinetic 4=Dyskin./Aneurysm 0=Not visualized) Parasternal Long [place]:MAS=1 BAS=1 MIL=1 ESTUARDO=1 Parasternal Short [place]:MAS=1 MIS=1 SC=1 MIL=1 MAL=1 MA=1 Apical 4 Chambers:=1 MIS=1 BIS=1 BAL=1 MAL=1 AL=1 AC=1 Apical 2 Chambers:AI=1 SC=1 BI=1 BA=1 MA=1 AA=1 AC=1 LV Global [...] pattern. Diastolic function: Pseudo normal Patient's Resident MD: Non ?Confirmed on ??04/28/2020 - 21:44:53 by Sp Kilpatrick MD By signing this report, the attending assistant child care teacher certifies that he or she has personally supervised and interpreted the echocardiogram and has reviewed and or edited and agrees with the written comments contained within the report. Procedure Note Sp Kilpatrick MD - 04/28/2020 Patient name: Yuliana Johnson Date of test: 04/28/2020 Type of test: TTE w/[facility] #: 0 Date of : 1940 (F) Piece Dyer: Bacilio Muñiz [facility] Referring Physician: SP KILPATRICK MD Contrast Agent: Contrast Administered by: Supervised/Interpreted by: Sp Kilpatrick MD Diagnosis: Location: [facility] Reason for test: Non rheumatic mitral valve [...] 2=Hypo 3=Akinetic 4=Dyskin./Aneurysm 0=Not visualized) Parasternal Long [place]:MAS=1 BAS=1 MIL=1 ESTUARDO=1 Parasternal Short [place]:MAS=1 MIS=1 SC=1 MIL=1 MAL=1 MA=1 Apical 4 Chambers:=1 MIS=1 BIS=1 BAL=1 MAL=1 AL=1 AC=1 Apical 2 Chambers:AI=1 SC=1 BI=1 BA=1 MA=1 AA=1 AC=1 LV Global [...] pattern. Diastolic function: Pseudo normal Patient's Resident MD: Non Confirmed on 04/28/2020 - 21:44:53 by Sp Kilpatrick MD By signing this report, the attending assistant child care teacher certifies that he or she has personally supervised and interpreted the echocardiogram and has reviewed and or edited and agrees with the written comments contained within the report. us Sp Kilpatrick MD CV ECHO PROCEDURES Final Resul t documented in this encounter Visit Diagnoses Diagnosis Nonrheumatic mitral valve regurgitation documented in this encounter Care Teams Traffic Engineer Relationship Specialty Start Date End Date Cassius Chambers MD [address] [facility] [address] [place] [address] PCP - General 08/12/16 12/30/20 documented as of this encounter
--- OUTSIDE RECORDS SUMMARY | 2024-02-28 15:37 | XMS_ITS | Encounter Summary ---
Author Organization [facility] Address [address] [place] [address] Phone Care Team Providers Care Property Clerk Name Role Phone Cassius Chambers MD Primary Care Provider [phone] Reason for Visit * (Routine) - Closed Specialty Diagnoses / Procedures Referred By Contac t Referred To Contact Diagnoses PAF (paroxysmal atrial fibrillation) (CMS/HCC) (HCC) Procedures MCT Mobile Cardiac Telemetry Event Monitor Sp Madrid MD [address] [facility] [address] [place] [address] Phone: tel: fax: [facility] (All Locations) Referral ID Status Reason Start Date Expiration Date Visits Re quested Visits Authorized [id number] Closed 07/25/2019 02/02/2021 1 1 Encounter Details Date Type Department Care Team (Latest Contact Info) Description 07/25/2019 10:00 AM CDT Ancillary Procedure [facility] Cardiology [address] [place] [address] [address] [place] [address] PAF (paroxysmal atrial fibrillation) (CMS/HCC) Social History Tobacco Use Types Packs/Day Years Used Date Smoking Tobacco: Never Smokeless Tobacco: Never Alcohol Use Standard Drinks/Week Comments No 0 (1 standard drink = 0.6 oz pur e alcohol) Comments No Sex and Gender Information Value Date Recorded Sex Assigned at Not on file 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 Gender Identity Female 06/15/2023 1:45 PM CDT Sexual Orientation Straight 06/15/2023 1: 45 PM CDT documented as of this encounter Plan of Treatment Pending Results Name Type Priority Associated Diagnoses Date /Time MCT Mobile Cardiac Telemetry Event Monitor Cardiac Services Routine PAF (paroxysmal atrial fibrillation) ([facility]) 07/25/2019 9:52 AM CDT documented as of this encounter Visit Diagnoses Diagnosis PAF (paroxysmal atrial fibrillation) (CMS/[facility]) ([facility]) Atrial fibrillation documented in this encounter Care Teams Property Clerk Relationship Specialty Start Date End Date Cassius Chambers MD [address] [address] PCP - General 08/12/16 12/30/20 documented as of this encounter
--- OUTSIDE RECORDS SUMMARY | 2024-02-28 15:37 | XMS_ITS | Encounter Summary ---
Author Organization [facility] Healthcare Address [address] [place] [address] Care Team Providers Care Manager Tax Name Role Phone Cassius Chambers MD Primary Care Provider [phone] Encounter Details Date Type Department Care Team (Latest Contact Info) Description 02/09/2019 2:22 PM PACKAGER AND STRAPPER - 02/11/2019 12:47 PM PACKAGER AND STRAPPER Hospital Encounter [facility] [address] [place] [address] Taj Vargas MD [address] [facility] [place] [address] [place] [id number] [address] Discharge Disposition: Discharge to home or self care Social History Tobacco Use Types Packs/Day Years Used Date Smoking Tobacco: Never Smokeless Tobacco: Never Alcohol Use Standard Drinks/Week Comments No 0 (1 standard drink = 0.6 oz pur e alcohol) Comments No Sex and Gender Information Value Date Recorded Sex Assigned at Not on file Legal Sex Female 11:30 PM PACKAGER AND STRAPPER Gender Identity Female 06/15/2023 1:45 PM CDT Sexual Orientation Straight 06/15/2023 1: 45 PM CDT documented as of this encounter Last Filed Vital Signs Vital Sign Reading Time Taken Comments Blood Pressure 138/75 02/11/2019 12:15 PM PACKAGER AND STRAPPER Pulse 67 02/11/2019 12:15 PM PACKAGER AND STRAPPER Temperature 36.2 ??C (97.2 ??F) 02/11/2019 12:[address] Respiratory Rate 12 02/11/2019 12:15 PM PACKAGER AND STRAPPER Oxygen Saturation 99% 02/11/2019 12:15 PM PACKAGER AND STRAPPER Inhaled Oxygen Concentration - - Weight 62.8 kg (138 lb 8 oz) 02/09/2019 2:43 PM PACKAGER AND STRAPPER Height 154.9 cm (5' 1 ) 02/10/2019 4:05 AM PACKAGER AND STRAPPER Body Mass Index 26.17 02/09/2019 2:43 PM PACKAGER AND STRAPPER documented in this encounter Discharge Diagnoses Diagnosis Cerebral infarction, unspecified (HCC) - CEREBRAL INFARCTION, UNSPECIFIED Encounter for immunization - ENCOUNTER FOR IMMUNIZATION Type 2 diabetes mellitus without complications (CMS/HCC) (HCC) - TYPE 2 DIABETES MELLITUS WITHOUT COMPLICATIONS Hyperlipidemia, unspecified - HYPERLIPIDEMIA, UNSPECIFIED Nihss score 1 - NIHSS SCORE 1 Essential (primary) hypertension - ESSENTIAL (PRIMARY) HYPERTENSION Unspecified essential hypertension Atherosclerotic heart disease of [place] coronary artery without angina pectoris - ATHEROSCLEROTIC HEART DISEASE OF [place] CORONARY ARTERY WITHOUT ANGINA PECTORIS Pulmonary hypertension, unspecified (HCC) - PULMONARY HYPERTENSION, UNSPECIFIED Fall from bed, initial encounter - FALL FROM BED, INITIAL ENCOUNTER Bedroom of unspecified non-institutional (private) residence as the place of occurrence of the external cause - BEDROOM OF UNSPECIFIED NON-INSTITUTIONAL (PRIVATE) RESIDENCE THE PLACE OF OCCURRENCE OF THE EXTER jail (current) use of antithrombotics/antiplatelets - [facility] (CURRENT) USE OF ANTITHROMBOTICS/ANTIPLATELETS 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 Primary Discharge Diagnosis: Principal Problem: CVA (cerebral vascular accident) ([facility]) Active Problems: Type 2 diabetes mellitus (CMS/HCC) Dyslipidemia HTN (hypertension), benign Mitral valve insufficiency Pulmonary hypertension (CMS/HCC) S/P mitral valve repair Tricuspid valve disorder DETAILS OF HOSPITAL STAY Hospital Course: Is this patient is 78 years old female was admitted to the hospital evaluated because of fall the patient was found to have a stroke ischemic. The patient apparently at home fell she developed slurred speech her walking was normal. Was transferred from outside hospital at [facility] was she was admitted. The patient has history of CAD, hypertension, hyperlipidemia, pulmonary hypertension, diabetes type2, MRI of the brain without contrast showed multiple punctate foci of acute ischemic infarct in the left cerebral hemisphere. Ultrasound carotid Doppler showed no significant stenosis. The patient had physical therapy, speech eval she swallowing very well. Started on aspirin supposedto be for 1 month 325 mg p.o. once a day together with the Plavix 75 mg p.o. once a day aspirin will be stopped after 1 month and to continue with the Plavix daily. Lipitor to continued. The patient is discharged by Neurology team home today. On physical therapy as per patient. Follow-up with the neurologist as scheduled. Discharge Details Physical Exam at Discharge: Discharge Condition: Fair Pulse: 66 Resp: 18 BP: 146/69 Temp: 36.8 ??C (98.2 ??F) Weight: 62.8 kg (138 lb 8 oz) Pertinent Exam Findings at Discharge: Neck no lymphadenopathy no thyromegaly. Lungs clear no wheezing. Heart S1-S2 regular. Abdomen soft no rebound tenderness no guarding. Extremities no edema. Neuropsychiatry patient is alert oriented to name place and time, gait normal. Cranial nerves 2-12 within normal limit. Discharge Disposition: Code Status at Discharge: full Discharge Instructions: Activity Instructions Discharge activity: Resume normal activity Diet Instructions Adult Discharge Diet Diet Type: Return to previous diet Discharge Medications: Your medication list START taking these medications aspirin 325 mg tablet Take 1 tablet (325 mg total) by mouth daily Start taking on: February 12, 2019 Replaces: aspirin 81 mg enteric coated tablet clopidogrel 75 mg tablet Commonly known as: PLAVIX Take 1 tablet (75 mg total) by mouth daily Start taking on: February 12, 2019 CONTINUE taking these medications amLODIPine 10 mg tablet Commonly known as: NORVASC carvedilol 25 mg tablet Commonly known as: COREG fenofibrate 160 mg tablet Commonly known as: TRIGLIDE furosemide 40 mg tablet Commonly known as: LASIX losartan 100 mg tablet Commonly known as: COZAAR metFORMIN 500 mg tablet Commonly known as: GLUCOPHAGE potassium chloride 20 mEq packet Commonly known as: KLOR-CON pravastatin 40 mg tablet Commonly known as: PRAVACHOL vitamin B-6 100 mg tablet Generic drug: pyridoxine zolpidem 10 mg tablet Commonly known as: AMBIEN STOP taking these medications aspirin 81 mg enteric coated tablet Replaced by: aspirin 325 mg tablet Outpatient Follow-Up: Future Appointments Date Time Provider Department Center 05/16/2019 10:15 AM Sp Madrid MD [facility] 8A Cardiology @[facility]@ Time Spent On Discharge: AGER AND STRAPPER documented in this encounter Discharge Instructions * Attachments The following attachments cannot be sent through Care Everywhere. * Heart Healthy Diet (General Information) (Mosotho) documented in this encounter Medications at Time of Discharge amLODIPine (NORVASC) 10 mg tablet Take 10 mg by mouth daily 05/16/2019 carvedilol (COREG) 25 mg tablet Take 25 mg by mouth 2 (two) times a day with meals 06/04/2019 furosemide (LASIX) 40 mg tablet Take 60 mg by mouth daily Dose=1 & 1/2 of 40 mg tablet 05/16/2019 metFORMIN (GLUCOPHAGE) 500 mg tablet Take 500 mg by mouth 2 (two) times a day with meals 01/07/2020 potassium chloride (KLOR-CON) 20 mEq packet Take 20 mEq by mouth daily 05/16/2019 aspirin 325 mg tabletIndications :cerebral ischemia,Cerebral Ischemia Take 1 tablet (325 mg total) by mouth daily 30 tablet 02/12/2019 04/22/2020 clopidogrel (PLAVIX) 75 mg tablet Take 1 tablet (75 mg total) by mouth daily 90 tablet 3 02/12/2019 05/16/2019 fenofibrate (TRIGLIDE) 160 mg tablet Take 160 mg by mouth daily 01/04/2020 losartan (COZAAR) 100 mg tablet Take 100 mg by mouth daily 02/10/2015 02/01/2020 pravastatin (PRAVACHOL) 40 mg tablet Take 40 mg by mouth nightly 01/04/2020 pyridoxine (vitamin B-6) 100 mg tablet Take 100 mg by mouth daily 05/16/2019 zolpidem (AMBIEN) 10 mg tabletIndications :Sleep-Onset Insomnia Take 10 mg by mouth nightly 03/30/2020 documented as of this encounter Ordered Prescriptions Prescription Sig Dispense Quantity Refills Last Filled Start Date End Date clopidogrel (PLAVIX) 75 mg tablet Take 1 tablet (75 mg total) by mouth daily 90 tablet 3 02/12/2019 05/16/2019 aspirin 325 mg tabletIndications: cerebral ischemia,Cerebral Ischemia Take 1 tablet (325 mg total) by mouth daily 30 tablet 02/12/2019 04/22/2020 documented in this encounter Discharge Disposition Disposition Code Departure Means Destination Discharge to home or self care documented in this encounter Progress Notes * Sebastián Montalvo MD - 02/10/2019 3:17 PM CST General Medicine Daily Progress Name Shavon Singh PCP Cassius Chambers MD Subjective The patient is sitting up in chair this morning denies any cardiopulmonary symptoms neurologic symptoms she stated that she is much better. She is participating in physical therapy. Objective Vitals: 24hr Min/Max: Temp Min: 36.7 ??C (98 ??F) Max: 36.9 ??C (98.4 ??F) Pulse Min: 62 Max: 70 BP Min: 115/49 Max: 138/61 Resp Min: 16 Max: 19 SpO2 Min: 95 % Max: 99 % Most Recent : Vitals: 02/10/19 1200 BP: 138/61 Pulse: 66 Resp: 16 Temp: 36.7 ??C (98.1 ??F) SpO2: 98% No intake/output data recorded. No intake/output data recorded. Physical Exam: Gen: Pt in NAD Lungs CTA Heart: [id number] Abd: +BS, Non Tender, Non distended, No gross hepatomegaly Lower Ext: No gross edema, cyanosis or clubbing Neuro: Alert oriented x 3 Psych: Not agitated or anxious Lab/Radiology/Diagnostic Review: Labs, Radiographs, and Medications Reviewed. Recent Labs Lab Units 02/09/19 1647 WBC K/cumm 6.3 HEMOGLOBIN g/dL 11.9 HEMATOCRIT % 37.8 Recent Labs Lab Units 02/10/19 0603 02/09/19 1647 SODIUM mmol/L -- -- 142 POTASSIUM PLASMA mmol/L -- -- 4.1 CHLORIDE mmol/L -- -- 111* CO2 mmol/L -- -- 21* GLUCOSE mg/dL -- -- 128 POC GLUCOSE MONITOR mg/dL 125 < > -- BUN SERUM mg/dL -- -- 12 CREATININE mg/dL -- -- 0.89 MAGNESIUM mg/dL -- -- 1.79 CALCIUM mg/dL -- -- 9.0 ALBUMIN g/dL -- -- 3.7 ALK PHOS Units/L -- -- 37* ALT Units/L -- -- 26 AST Units/L -- -- 27 BILIRUBIN TOTAL mg/dL -- -- 0.3 < > = values in this interval not displayed. A/P Principal Problem: CVA (cerebral vascular accident) ([facility]) Active Problems: Type 2 diabetes mellitus ([facility]) Dyslipidemia HTN (hypertension), benign Mitral valve insufficiency Pulmonary hypertension ([facility]) S/P mitral valve repair Tricuspid valve disorder Continue current medication. Continue aspirin for 1 month and Plavix the and then continue with the Plavix. Continue Lovenox 40 mg daily. Telemetry. Permissive hypertension. Carotid ultrasound pending. Physical therapy and occupational therapy with fall precaution. Continue statin. MRI of the brain without contrast showed multiple punctatefoci of acute ischemic infarct in the left cerebral hemisphere. Discharge planning the next 24 hours. 02/10/2019 AGER AND STRAPPER AGER AND STRAPPER * Anisa Frey, RD - 02/10/2019 3:02 PM CST Initial Nutrition Assessment Reason for Assessment: Consult/Referral Encounter Date: 02/10/19 3:02 PM Nutrition Evaluation: Patient is a 78 y.o. female. Admit Dx: DSN STROKE LÁZARO. Admitted on 02/09/2019, current LOS is 1 days. Patient's intake is adequate. Objective Past Medical History: Diagnosis Date ??? Cancer (CMS/HCC) breast ??? Diabetes mellitus (CMS/HCC) ??? Hyperlipidemia ??? Hypertension Past Surgical History: Procedure Laterality Date ??? HYSTERECTOMY ??? MASTECTOMY Left ??? MITRAL VALVE REPAIR Anthropometrics Weight: 62.8 kg (138 lb 8 oz) Admission Weight : 62.8 kg Weight Change: -2.94 kg (-6.50 lbs) IBW/kg (Calculated) : 47.6 kg Height: 154.9 cm (5' 1 ) Weight in (lb) to have BMI = 25: 132 BMI Classification: BMI 25.0 - 29.9 Overweight No intake or output data in the 24 hours ending 02/10/19 1502 Medications and Lab Review: Scheduled Meds: aspirin, 325 mg, oral, Daily Or aspirin, 300 mg, rectal, Daily atorvastatin, 40 mg, oral, Nightly carvedilol, 6.25 mg, oral, BID with meals (bkfst, dinner) clopidogrel, 75 mg, oral, Daily enoxaparin, 40 mg, subcutaneous, Daily-2100 fenofibrate nanocrystallized, 145 mg, oral, Daily furosemide, 60 mg, oral, Daily insulin lispro, 1-3 Units, subcutaneous, Nightly insulin lispro, 1-5 Units, subcutaneous, TID with meals sodium chloride 0.9%, 0.5-20 mL, intra-catheter, Q8H DAVID sodium chloride 0.9%, 0.5-20 mL, intra-catheter, Q8H DAVID Continuous Infusions: PRN Meds: ??? acetaminophen ??? dextrose OR dextrose ??? docusate sodium ??? glucagon ??? labetalol ??? ondansetron ODT OR ondansetron ??? polyethylene glycol ??? senna ??? sodium chloride 0.9% ??? Saline lock IV AND sodium chloride 0.9% AND sodium chloride 0.9% ??? zolpidem Sodium Date Value Ref Range Status 02/09/2019 142 135 - 145 mmol/L Final Potassium, pl Date Value Ref Range Status 02/09/2019 4.1 3.3 - 4.9 mmol/L Final BUN Date Value Ref Range Status 02/09/2019 12 8 - 25 mg/dL Final Creatinine Date Value Ref Range Status 02/09/2019 0.89 0.60 - 1.10 mg/dL Final Albumin Date Value Ref Range Status 02/09/2019 3.7 3.5 - 5.0 g/dL Final Magnesium Date Value Ref Range Status 02/09/2019 1.79 1.40 - 2.50 mg/dL Final Calcium Date Value Ref Range Status 02/09/2019 9.0 8.5 - 10.3 mg/dL Final HDL Date Value Ref Range Status 02/09/2019 39 (L) >=40 mg/dL Final Comment: Interpretive Data Ages < or = 19 years Acceptable: >45 mg/dL Borderline low: 40-45 mg/dL Low: <40 mg/dL Ages > or = 20 years Desirable: >or= 60 mg/dL Low: <40 mg/dL Literature References: 1. Expert Panel on Integrated Guidelines for Cardiovascular Health and Risk Reduction in Children and Adolescents. Pediatrics 2011;128:S213 2. NCEP Expert Panel. Circulation 2004;110:227 Current Interpretive Data was last revised on 2017. ALT Date Value Ref Range Status 02/09/2019 26 7 - 45 Units/L Final AST Date Value Ref Range Status 02/09/2019 27 10 - 45 Units/L Final Alk phos Date Value Ref Range Status 02/09/2019 37 (L) 40 - 130 Units/L Final Lab Results Component Value Date HGBA1C 7.6 (H) 02/09/2019 Nursing Assessment: Last BM Date: 02/09/19 Kt Scale Score: 20 Dietary Orders (From admission, onward) Start Ordered 02/09/19 1552 Adult Diet Restricted; Low Fat, Low Chol, Low Na; Consistent Carbohydrate Diet effective now Question Answer Comment ([facility]) Diet type Restricted Fat / Sodium Restriction: Low Fat, Low Chol, Low Na Diabetic: Consistent Carbohydrate 02/09/19 1552 Nutrition Needs Calculations: Calculated Energy Needs Using Equations Weight: 62.8 kg (138 lb 8 oz) Height: 154.9 cm (5' 1 ) Temp: 36.7 ??C (98.1 ??F) Estimated Protein Needs Type of Weight Used for Estimated Protein : Current Protein Needs Based on g/k.2 Total Protein Estimated Needs (gm): 75.39 Kcal/kg Type of Weight Used for Estimated Kcals: Current Kcal/k Total Kcal/kg Estimated Needs : 1570.58 Nutritional Needs and Diagnosis: Nutrition Diagnosis 1: Food and nutrition-related knowledge deficit Related to: Lack of education Evidenced by: Patient interview Wt Readings from Last 5 Encounters: 02/09/19 62.8 kg (138 lb 8 oz) 11/15/18 65.8 kg (145 lb) 05/08/18 68 kg (150 lb) 04/19/18 66.7 kg (147 lb 0.8 oz) 04/03/18 65.7 kg (144 lb 12.8 oz) Impression: Stroke consult received. Multiple punctate foci of acute ischemic infarct in the left cerebral hemisphere per MRI. H/o T2DM, HTN, CAD. Pt reports good appetite and intake. Follows a DM diet at home usually. Initially failed dysphagia screening. LARD TUB WASHER recommended regular/ thin consistency.Pt denies issues with chewing/swallowing. Denies N/V. States she has gradually lost 12lbs over the past year. Reviewed DM and heart healthy diet recommendations with pt. Pt verbalized understanding. Plan: Attached heart healthy diet information to discharge paperwork for reference. Follow per protocol. Intervention and Monitoring: Goals: Patient/caregiver able to teach back understanding of role of diet in disease process prior to discharge Interventions: Education, nutrition, Encouragement Monitoring and Evaluation: Plan of care, Labs, PO intake Anisa Frey RD,LD AGER AND STRAPPER * Liza Lopez, OT - 02/10/2019 2:23 PM CST Occupational Therapy Evaluation 02/10/19 0640 General Chart Reviewed Yes Session Type Evaluation OT Received On 02/10/19 Safe Environment Arm Band Checked;Chair Alarm placed and activated;Call Light within Reach Subjective Agreeable to Therapy Additional Pertinent History 78 y/o admit with unsteady gait, acute CVA, per MRI (L)basal ganglia ischemic infarct pmhx: breast ca, DM, hyperlipidemia, htn, MVR Family/Caregiver Present Yes (pt/daughter) Occupational Therapy-Patient Goal (to return home at PLOF) Precautions Precautions Fall risk Home Living Type of Home House Home Layout One level;Able to live on main level with bedroom/bathroom Home Access (3 DARWIN) Bathroom Shower/Tub Walk-in shower with threshold Bathroom Toilet Raised Home Mobility Equipment None Prior Function Level of [place] Independent with ADLs;Independent functional transfers;Independent with homemaking with ambulation Lives With Spouse Driving Yes ADL Assistance Independent Instrumental ADL (IADL) Assistance Independent Fall within the last 6 months No Grooming Grooming: Where assessed Standing at sink Grooming: Level of assistance Standby Assist LE Dressing LE Dressing: Where assessed Sitting LE Dressing: Level of assistance Standby Assist LE Dressing: Assistance with Thread RLE into pants;Thread LLE into pants;Pull up over hips Toileting Toileting: Where assessed Toilet Toileting: Level of assistance Standby Assist Toilet Transfers Toilet Transfer to Standard toilet Toilet Transfers Supervision Pain Assessment Pain Assessment No/denies pain Vision-Basic Assessment Current Vision No visual deficits Perception Inattention/Neglect Appears intact Cognition Cognition Comments pt exhibits high level cognitive impairments with executive function including complex direction following, divided attention Arousal/Alertness Alert Attention Span Difficulty dividing attention Memory Appears intact (difficult to accurately assess d/t word finding difficulties) Current communication Impaired - Expressive Aphasia Orientation Oriented X4 (person, place, time, situation) Following Commands Follows multistep commands with repetition Safety Judgment Good awareness of safety precautions Compliance/Behavior Easy to engage Sensation Light Touch WFL Coordination Movements Are Fluid and Coordinated 1 Fine Motor WFL Serial Opposition WFL Eye-Hand Coordination WFL Hand Preference Hand Preference Right Hand Function Coordination Functional Gross Grasp Functional Transfer 1 Transfer From 1 Sit Transfer Type 1 To and from Transfer to 1 Stand Transfer Device 1 No device Transfer Level of Assistance 1 Standby Assist RUE Assessment RUE Assessment WFL (noted slight weakness in comparison with LUE) LUE Assessment LUE Assessment WFL Assessment Prognosis Good Problem List Decreased cognition (decreased RUE strength) Recommendation/Plan OT Recommendation Home with family;Home with intermittent assist;Outpatient OT OT Recommendation/Plan Comments Pt at functional baseline for ADLs/functional transfers, exhibits high level cognitive deficits in executive functioning. REcommend outpatient OT to address these impairments upon d/c OT Frequency One-time visit (Discharge from this service) (recommend outpatient OT evaluation upon d/c) Treatment/Interventions ADL/IADL retraining;Functional mobility training;Functional transfer training;Parent/caregiver training and education;Cognitive retraining OT Evaluation Complete Yes Education: Patient has been educated on the role of OT, safety, precautions, ADL training and mobility training. Education completed via verbal instruction and return demonstration. Patient and Family verbalized understanding and demonstrated understanding AGER AND STRAPPER * Jennifer Stockton, PT - 02/10/2019 9:54 AM CST Physical Therapy 02/10/19 0918 General Chart Reviewed Yes Session Type Evaluation PT Received On 02/10/19 Safe Environment Arm Band Checked Subjective Agreeable to Therapy Additional Pertinent History patient admitted from OSH after waking with R facial droop, R side weakness and slurred speech. Patient had missed the window for acute CVA medical intervention such as TPA. CT scan reveals acute ischemic infarct L cerebral hemisphere, L MCA. PMH includes HTN, hyperlipidemia, DM, pulmonary HTN, MV repair, and tricuspid valve disorder, as well as breast cancer. Family/Caregiver Present No Physical Therapy-Patient Goal return home PLOF Precautions Precautions Bed/Chair Alarm;Fall risk Home Living Type of Home House Home Layout One level Home Access Stairs to enter with rails Entrance Stairs-Number of Steps 3 Prior Function Level of [place] Independent with ADLs;Independent functional transfers;Independent with ambulation;Independent with homemaking with ambulation Lives With Spouse Driving Yes Pain Assessment Pain Assessment No/denies pain Clinical Progression Not changed Cognition Arousal/Alertness Alert;Appropriate responses to stimuli Memory Appears intact Current communication Impaired - Expressive Aphasia Orientation Oriented X4 (person, place, time, situation) Following Commands Follows one step commands without difficulty Safety Judgment Good awareness of safety precautions Awareness of Errors Assistance required to identify errors made Compliance/Behavior Easy to engage Sensation Light Touch WFL (both hands and feet) Balance Balance Yes (BARRERA score = 44) Static Sitting Balance Static Sitting-Balance Support Feet supported Static Sitting-Sitting Surface Bed Static Sitting-Level of Assistance Independent Static Standing Balance Static Standing-Balance Support No upper extremity supported Static Standing-Standing Surface Floor Static Standing-Level of Assistance Close supervision Bed Mobility 1 Bed Mobility Comments 1 SBA sit<->supine with HOB flat Transfer 1 Transfer Device 1 No device Trials/Comments 1 s<->stand with SBA Transfers 2 Transfer Device 2 Hand held assist Trials/Comments 2 pivots from one chair to another with SBA Ambulation Functional Ambulation Category 3 Ambulation 1 Ambulation Comments 1 150' wtihout assistive device, SBA due to narrowed BROCK, improved paulette noted toward end of session (becomes faster) Stairs Stairs Yes Stairs Number of Stairs 1 4 Rails 1 Right Assistance 1 Standby Assist (reciprocal gait noted) Stairs: Requires assist with 1 (cues to place entire foot on step) RUE Assessment RUE Assessment (strength 4/5 throughout) LUE Assessment LUE Assessment WFL RLE Assessment RLE Assessment WFL LLE Assessment LLE Assessment WFL Other Comments Other PT Comments STROKE metrics RUE: pinch 5, elbow flexion 4, shoulder abduction = 4, LUE = 5 R LE ankle DF = 5, knee extension = 4, hip flexion = 4, LLE = 5 throughout Assessment Prognosis Good Problem List Impaired balance;Decreased strength Barriers to Discharge None Modified [place] Score 2 Plan Plan Plan of care initiated Recommendation/Plan PT Recommendation/Plan Home with family;Home Health PT PT Frequency 5-7x/wk Treatment/Interventions Balance Training;Functional transfer training;Functional activity;Therapeutic exercise PT Evaluation Complete Yes Multi-Disciplinary Problems (from Physical Therapy) Active Problems [place] [facility] [place]: 02/10/19 Goal Start Date End Date [facility] 1 02/10/19 -- Goal Details: Patient to ambulate 200' without assistive device IND Goal Start Date End Date [facility] 2 02/10/19 -- Goal Details: Patient to perform 10-15 reps of high level balance exercise Goal Start Date End Date [facility] 3 02/10/19 -- Goal Details: Patient to demonstrate improved BARRERA score to at least 48 Education: Patient has been educated on the role of PT, safety , precautions, mobility training andstairs. Education completed via explanation, teach back and demonstration. Patient verbalized understanding and demonstrated understanding AGER AND STRAPPER * Vic Jacobo MD - 02/10/2019 8:46 AM CST Neurology Progress Note Subjective Chief complaint of dysarthria and right-sided weakness Interval History: The patient reports that she is feeling better. We went over the MRI and carotid ultrasound results. We also discussed her lipid profile as well as her hemoglobin A1c. We discussed the plan for dual anti-platelet therapy for 3 weeks and then discontinuation of the aspirin. We alsodiscussed the need for physical/occupational/speech therapy. The patient denies any heart palpitations. Review of Systems - Negative except as noted above Objective Vitals: 24hr Min/Max: Most Recent : Vitals: 02/10/19 0400 BP: 115/49 Pulse: 62 Resp: 18 Temp: 36.7 ??C (98.1 ??F) SpO2: 99% Physical Exam: Neurologic Exam This patient is a pleasant woman, looking younger than stated age. She is alert, oriented x3, although it took some thought. She is a little slow to respond. Her language shows mild dysarthria. Memory seems reasonable, as does fund of knowledge, judgment. Gait is deferred. Neck is supple no meningeal signs are present. P3/3 RL, full eye movements without nystagmus, funduscopic reveals sharp discs. Visual salazar are full and there is no visual extinction. Facial sensation is intact to pain. She has mild right lower facial weakness. Hearing is symmetric. Gag is slightly hypoactive, shoulder shrug is symmetric, tongue is midline. Sensory testing is normal to pain, position, double touch. Strength is normal in the left arm and leg. Right arm is 4+/5 distally, distal right leg is 4+/5-. She has a mild right arm drift. Tendon reflexes are 1/1 in the brachioradialis, biceps, triceps, knees and ankles. Babinski signs are absent. Carotids are 1/1, no pedal edema today. Lab/Radiology/Diagnostic Review: Laboratory review: Lab results in the last 24 hours: Recent Results (from the past 24 hour(s)) Urinalysis reflex to microscopic and culture Urine Collection Time: 02/09/19 3:53 PM Result Value Ref Range Color, ur Straw Yellow Clarity, ur Clear Clear Specific gravity, ur 1.008 (L) 1.010 - 1.025 pH, urine 7.0 Protein, ur ql Negative Negative Glucose, ur ql Negative Negative Ketones, ur Negative Negative Bilirubin, ur Negative Negative Blood, ur Negative Negative Urobilinogen, ur <2.0 <2.0 mg/dL Nitrite, ur Negative Negative Leukocyte esterase, ur 3+ (A) Negative UA reflex comment Reflex to microscopic UA will be performed. Urinalysis, microscopic only Collection Time: 02/09/19 3:53 PM Result Value Ref Range WBC, ur 0-5 0 - 5 /HPF RBC, ur 0-2 0 - 2 /HPF Epithelial cells, squamous, ur 1-5 0 - 5 /HPF Bacteria, ur Trace (A) Culture Reflex Comment Reflex conditions for urine culture (WBC >10) not met. Comprehensive metabolic panel Collection Time: 02/09/19 4:47 PM Result Value Ref Range Sodium 142 135 - 145 mmol/L Potassium, pl 4.1 3.3 - 4.9 mmol/L Chloride 111 (H) 97 - 110 mmol/L CO2 21 (L) 22 - 32 mmol/L Anion gap 10 2 - 15 mmol/L BUN 12 8 - 25 mg/dL Creatinine 0.89 0.60 - 1.10 mg/dL Glucose 128 70 - 199 mg/dL Calcium 9.0 8.5 - 10.3 mg/dL Bilirubin, total 0.3 0.1 - 1.2 mg/dL Protein, pl 6.3 (L) 6.5 - 8.5 g/dL Albumin 3.7 3.5 - 5.0 g/dL Alk phos 37 (L) 40 - 130 Units/L ALT 26 7 - 45 Units/L AST 27 10 - 45 Units/L Magnesium Collection Time: 02/09/19 4:47 PM Result Value Ref Range Magnesium 1.79 1.40 - 2.50 mg/dL CBC with auto differential Collection Time: 02/09/19 4:47 PM Result Value Ref Range WBC 6.3 3.8 - 9.9 K/cumm Hgb 11.9 11.9 - 15.5 g/dL Hct 37.8 35.6 - 45.5 % Plt 204 150 - 400 K/cumm MPV 11.0 9.1 - 12.3 fL RBC 4.16 3.90 - 5.20 M/cumm MCV 90.9 81.3 - 96.4 fL MCH 28.6 27.1 - 33.3 pg MCHC 31.5 (L) 32.3 - 35.7 g/dL RDW CV 13.3 11.1 - 14.9 % RDW SD 44.2 35.7 - 48.1 fL NRBC abs 0.00 0.00 - 0.01 K/cumm Hemoglobin A1c Collection Time: 02/09/19 4:47 PM Result Value Ref Range Hgb A1C 7.6 (H) 4.0 - 5.6 % Estimated Average Glucose 171 mg/dL TSH Collection Time: 02/09/19 4:47 PM Result Value Ref Range Thyroid Stimulating Hormone 2.82 0.30 - 4.20 mcIUnit/mL Lipid panel Collection Time: 02/09/19 4:47 PM Result Value Ref Range Cholesterol 114 30 - 199 mg/dL Triglycerides 103 <=149 mg/dL HDL 39 (L) >=40 mg/dL LDL, calculated 54 <=129 mg/dL Non-HDL Cholesterol 75 mg/dL Chol/HDL ratio 3 Differential, auto Collection Time: 02/09/19 4:47 PM Result Value Ref Range Neutrophil abs 3.8 1.7 - 6.5 K/cumm Imm gran abs 0.0 0.0 - 0.1 K/cumm Lymphocyte abs 1.8 0.8 - 3.3 K/cumm Monocyte abs 0.4 0.2 - 0.8 K/cumm Eosinophil abs 0.1 0.0 - 0.5 K/cumm Basophil abs 0.1 0.0 - 0.1 K/cumm Neutrophil pct 61.3 % Imm gran pct 0.3 % Lymphocyte pct 28.8 % Monocyte pct 6.7 % Eosinophil pct 1.8 % Basophil pct 1.1 % eGFR Collection Time: 02/09/19 4:47 PM Result Value Ref Range GFR 61 mL/min/1.73 m2 POCT glucose Collection Time: 02/09/19 4:59 PM Result Value Ref Range Glucose, POC 100 70 - 140 mg/dL POCT glucose Collection Time: 02/09/19 8:27 PM Result Value Ref Range Glucose, POC 274 (H) 70 - 140 mg/dL POCT glucose Collection Time: 02/10/19 6:03 AM Result Value Ref Range Glucose, POC 125 70 - 140 mg/dL Imaging review: I have independently examined the brain MRI image(s). My findings are diffusion-weighted abnormality present in the left basal ganglia Other results: Carotids: Preliminary report indicates no significant stenosis TTE: Pend Principal Problem: CVA (cerebral vascular accident) (CMS/HCC) Active Problems: Type 2 diabetes mellitus (CMS/HCC) Dyslipidemia HTN (hypertension), benign Mitral valve insufficiency Pulmonary hypertension (CMS/HCC) S/P mitral valve repair Tricuspid valve disorder Assessment/Plan 78-year-old right-handed female with left basal ganglia ischemic infarct 1. Aspirin 81 mg daily. 2. Plavix 75 mg daily. After 1 month I would have the patient discontinue the aspirin and continue the Plavix. 3. Noncontrast MRI of the brain official report pending. Per my review the patient has a diffusion-weighted abnormality in the left basal ganglia which corresponds well with her symptoms 4. Lovenox 40 mg daily. 5. Carotid ultrasound shows no hemodynamically significant stenosis 6. Hemoglobin A1c slightly elevated, fasting lipid profile at target. Continue pravastatin 7. continue speech last PT/OT. 8. Stroke education. 9. Telemetry. 10. Permissive hypertension AGER AND STRAPPER * Stephanie Contreras - 02/09/2019 4:12 PM CST Speech Language/Pathology Evaluation Past Medical History: Diagnosis Date ??? Cancer (CMS/HCC) breast ??? Diabetes mellitus (CMS/HCC) ??? Hyperlipidemia ??? Hypertension Recommendations/Treatment Recommendations/Treat Recommendations: Ongoing speech therapy Solid Consistency: (S) Regular Liquid Consistency: (S) Thin/regular Liquid Administration Via: Straw, Cup, Spoon Medication Administration: As tolerated Supervision: Close Compensations and Swallow Maneuvers: Single sips, Small bites, Slow rate, Eat/feed slowly Postural Changes : Upright 30 min after meal, Upright 90 degrees LARD TUB WASHER - Next Appointment: (P) 02/11/19 Speech Evaluation Complete: (P) Yes Current Functional Status LARD TUB WASHER Swallowing: (P) WFL; regular diet, thin liquids LARD TUB WASHER Cognition: (P) TBD; slow processing noted/word finding difficulty LARD TUB WASHER Communication: (P) WFL Multi-Disciplinary Problems (from Speech Therapy) Active Problems Problem: [facility] [place]: 02/09/19 Goal Start Date End Date [facility] [place]09[place]19 -- Goal Details: Pt will complete a cognitive evaluation as appropriate. Oral Health Assessment Tool administered indicating WFL (Normal Health=0). [place] Assessment of Swallowing Ability (MASA) Alertness: Alert Cooperation: Cooperative Auditory Comprehension: Follows ordinary conversation with little difficulty Respiration: Chest clear Respiratory Rate (for swallow): Able to control breath rate for swallow Aphasia: Mild difficulty finding words or expressing ideas Apraxia: No abnormality detected Dysarthria: No abnormality detected Saliva: No abnormality detected Lip Seal: No abnormality detected Tongue Movement: Full range of motion Tongue Strength: No abnormality detected Tongue Coordination: No abnormality detected Gag: Hyperreflexive/no abnormality detected Palate: No abnormality detected Cough Reflex: No deficit noted Voluntary Cough: No abnormality detected Voice: No abnormality detected Trach: No trach Oral Preparation: No deficits noted Bolus Clearance: Fully cleared Oral Transit: No deficits note Pharyngeal Phase: Immediate laryngeal elevation Pharyngeal Response: No deficits noted MASA Score: 197 Dysphagia: No dysphagia detected (178-200) Aspiration Risk: No aspiration risk (170-200) Education: Patient and Family has been educated on modified diet training and oral care. Education completed via verbal instruction. Patient verbalized understanding Consistencies Assessed: Thin: Presentation: Cup Oral:WFL Pharyngeal: WFL Puree: Presentation: Self fed and Spoon Oral:WFL Pharyngeal: WFL Regular: Presentation: Self fed Oral:WFL Pharyngeal: WFL 02/09/19 1606 General Chart Reviewed Yes Session Type Evaluation LARD TUB WASHER Received On 02/09/19 Safe Environment Arm Band Checked;Bed Alarm placed and activated Subjective Agreeable to Therapy Additional Pertinent History limited history in chart; pt reports history of DM Family/Caregiver Present Yes Current Functional Status LARD TUB WASHER Swallowing WFL; regular diet, thin liquids LARD TUB WASHER Cognition TBD; slow processing noted/word finding difficulty LARD TUB WASHER Communication WFL Cognition Overall Cognitive Status (TBD) Orientation Oriented X4 (person, place, time, situation) Pain Assessment Pain Assessment No/denies pain Comments Comments Eval completed. Pt is oriented x4. Oral mech signficant for very slight R facial weakness.BSNT completed with (WFL). Pt's response time is delayed with some word finding difficulty attimes in conversation. Pt tolerated p.o trials of thin liquids, puree, and hard solids with no clinical s/s of aspiration. Recommend a regular diet with thin liquids. Medication one at a time. ST to continue to follow to complete a cognitive evaluation. Speech Therapy Prognosis Services Skilled LARD TUB WASHER services to address the above deficits Prognosis Good Prognosis Considerations Medical diagnosis;Medical prognosis Plan Plan Continue with current plan Recommendations LARD TUB WASHER Recommendation (Add'l Services) Defer at this time Treatment/Interventions Cognition/Memory;Expressive language;Receptive language LARD TUB WASHER Frequency of Services 2-4x/wk LARD TUB WASHER - Next Appointment 02/11/19 LARD TUB WASHER - OK to Discharge No Speech Evaluation Complete Yes AGER AND STRAPPER documented in this encounter H&P Notes * Nallely Duque MD - 02/09/2019 2:49 PM CST DATE OF SERVICE: 02/09/2019 PRIMARY CARE PHYSICIAN: Cassius Chambers MD SUBJECTIVE: Patient is a 78 y.o. female with chief complaint of unsteadiness HPI: 78-year-old female with a past medical history significant for mitral regurgitation and tricuspid valve regurgitation status post mitral valve and tricuspid valve annuloplasty rings, hypertension, minimal coronary artery disease, moderate pulmonary hypertension, diabetes mellitus type 2, dyslipidemi a, presented to [facility] with complaints of unsteadiness. Around 6:00 a.m. this morning, patient went to the bathroom. When she got back into bed, she slipped off her bed. She was then unable to get up. Her helped her back on. A couple of hours later, patient was unable to get out of bed. Her came to help her and noted that she was quite unsteady. She also had slurry speech and right facial drooping. He gave her dose of 81 mg of baby aspirin and took her to [facility]. She was otherwise in her usual state of health yesterday. She denies any dizziness or lightheadedness. She denies any changes in vision or blurry vision. She has floaters in her eye. On arrivalemergency room, patient was able to use her right arm and improvement of right facial drooping and speech. Patient was not a candidate for tPA secondary to time of presentation. After discussion with the [facility] stroke team, she was not a candidate for tPA or stroke as she was outside the window. Workup so far showed a hemoglobin of troponin x1 was negative. Urinalysiswas negative. CT head showed no acute intracranial process. There was a chronic right parieto-occipital infarct with additional mild scattered white hypoattenuation consistent with chronic small vessel ischemic disease. Chest x-ray was unremarkable. EKG shows sinus rhythm with nonspecific ST T wavechanges. Patient's NIHSS was 1 for facial palsy. Past Medical History: Diagnosis Date ??? Cancer (CMS/HCC) breast ??? Diabetes mellitus (CMS/HCC) ??? Hyperlipidemia ??? Hypertension Past Surgical History: Procedure Laterality Date ??? HYSTERECTOMY ??? MASTECTOMY Left ??? MITRAL VALVE REPAIR No Known Allergies Social History Tobacco Use [...] - Relation: Grandmother (Added by TW Conv) Prior to Admission medications Medication Sig Start Date End Date Taking? Authorizing Provider amLODIPine (NORVASC) 10 mg tablet TAKE 1 TABLET BY MOUTH ONCE DAILY DIRECTED 06/01/18 Sp Madrid MD aspirin 81 mg tablet daily. Historical Provider, carvedilol (COREG) 25 mg tablet TAKE 1 TABLET BY MOUTH TWICE DAILY 06/01/18 Sp Madrid MD fenofibrate (TRIGLIDE) 160 mg tablet daily. Historical Provider, furosemide (LASIX) 40 mg tablet TAKE 1 & 1/2 (ONE & ONE-HALF) TABLETS BY MOUTH ONCE DAILY. 11/17/18 Sp Madrid MD glimepiride (AMARYL) 2 mg tablet daily. Historical Provider, losartan (COZAAR) 100 mg tablet daily. 02/10/15 Historical Provider, metFORMIN (GLUCOPHAGE) 500 mg tablet daily. Historical Provider, nitroglycerin (NITROSTAT) 0.[address] under the tongue. 06/06/17 Historical Provider, POTASSIUM CHLORIDE ER 20 mEq CR tablet TAKE 1 TABLET BY MOUTH ONCE DAILY 07/31/18 Sp Madrid MD pravastatin (PRAVACHOL) 40 mg tablet daily. Historical Provider, pyridoxine (vitamin B-6) 100 mg tablet Take 200 mg by mouth daily. Historical Provider, zolpidem (AMBIEN) 10 mg tablet TAKE 1 TABLET AT BEDTIME. Historical Provider, Review of Systems Review of Systems Constitutional: Negative for activity change and appetite change. HENT: Negative. Eyes: Negative. Respiratory: Negative. Cardiovascular: Negative. Gastrointestinal: Negative. Endocrine: Negative. Genitourinary: Negative. Musculoskeletal: Negative. Allergic/Immunologic: Negative. Neurological: Positive for facial asymmetry and speech difficulty. Negative for dizziness and headaches. OBJECTIVE: Vitals: Arrival Vitals Temp Pulse Resp BP SpO2 Temp src Heart Rate Source Patient Position BP Location FiO2 (%) Most Recent : There were no vitals filed for this visit. Physical exam: General Appearance: Alert, cooperative, no distress Head: Normocephalic, without obvious abnormality, atraumatic Eyes: Conjunctiva/corneas clear, EOM's intact,anicteric Nose: Nares normal Throat: Mucous membranes moist Neck: Supple Back: Symmetric Lungs: Clear to auscultation bilaterally, respirations unlabored Cardiovascular: Regular rate and rhythm, S1 and S2 normal, no murmur, rub or gallop Abdomen: Soft, non-tender, no masses, no organomegaly, non-distended Extremities: Extremities normal, atraumatic, no cyanosis or edema Neurologic: Normal strength, Sensation throughout, +right facial droop Psychosocial: Normal affect and mood Lab/Radiology/Diagnostic Review: See HPI ASSESSMENT/PLAN: Suspect acute stroke -Admit to telemetry to rule out arrhythmias. Check MRI head, carotid ultrasound, echocardiogram with bubble study. Consult Neurology. Consult PT, OT, speech therapy. Will allow for permissive hypertension. Check lipid panel and hemoglobin A1c. Start aspirin. Add Lipitor. Coronary artery disease History of mitral valve and tricuspid regurgitation status post mitral and tricuspid valve annuloplasty rings Essential hypertension Hyperlipidemia -continue aspirin -home medications include amlodipine 10 mg daily, carvedilol 25 mg b.i.d., fenofibrate 160 mg daily, Lasix 60 mg daily, losartan 100 mg daily, potassium chloride 20 mg orally daily, pravastatin 40 mgdaily -will allow permissive hypertension -restart carvedilol, and lasix tomorrow. Hold other meds -switch pravastatin to lipitor Moderate pulmonary hypertension Diabetes mellitus type 2 -home medications include metformin 500 mg daily and glimepiride 2 mg daily -hold home medications and start medium dose sliding scale -check blood sugars AC and HS -check hemoglobin A1c -start hypoglycemia protocol CODE STATUS: Full Code Medical complexity / risk: High ESTIMATED LENGTH OF STAY: Based on the problems listed above, I anticipate the patient will need atleast 2 midnights for medical and/or surgical services, thus qualifying for inpatient status. Nallely Duque MD 02/09/2019 AGER AND STRAPPER documented in this encounter Consult Notes * Ignacio Holguin MD - 02/09/2019 3:33 PM CSTAssociated Order(s): IP CONSULT TO NEUROLOGY NEUROLOGY CONSULTATION This patient is an 78-year-old right-handed white female, whom I've been asked to see in consultation by Dr. Lemus for advice and opinion, regarding a stroke. HPI: This morning at approximately 0600 hours the patient walked to the bathroom. As she came back from the bathroom, she sat on the bed and slipped off the bed. The thought this was somewhatunusual. This was not a severe fall. Approximately an hour or 2 later, the noted that his was slurring her speech, increasingly severe over the next few hours. She also had drooping in the right face. Walking seemed to be okay from his standpoint. The patient was then taken to [facility], transferred through the [facility] to [facility] for further evaluation and treatment. Patient has not shown any worsening since her speech worsened. Denies headache, visual change, facial numbness, knows that there is some right-sided numbness, no clinical history of stroke previously. Past medical history: Surgeries: The patient has had mitral and tricuspid valve repairs, mastectomy, total hysterectomy. Medications: She was given aspirin 81 mg this morning by her , amlodipine, carvedilol 25 b.i.d., fenofibrate 160, furosemide 40, glimepiride 2, losartan 100, metformin 500., p.r.n. nitroglycerin, potassium 20 mEq, pyridoxine 200, zolpidem 10, pravastatin 40. Allergies: NKDA. Illnesses: History of mild CAD, hypertension, hyperlipidemia, pulmonary hypertension, diabetes, distant history of breast cancer on the left with mastectomy.. Social history: The patient is , lives in [place]. Does not smoke, drink. Family history: No relevant neurological issues. ROS: No fever, chills, anorexia, malaise, weight change. Denies double vision, blindness, tinnitus or hearing loss. No chest pain recently, palpitations, uncommon shortness of breath. No phlegm production or cough. No abdominal pain, nausea, vomiting or diarrhea. No significant urination issues, such as hematuria, dysuria. No significant joint disorders. Denies rash or hives. She is diabetic, latest A1c is said to be around 6.7. No thyroid disease. No anxiety or depression. No easy bruising. Exam: P 68, BP 124/58, R 18, O2 sat 98, temp 36.8??. This patient is a pleasant woman, looking younger than stated age. She is alert, oriented x3, although it took some thought. She is a little slow to respond. Her language is normal with minor slurring. No clear word errors, although she did not seem to follow all commands. She had trouble with crossed commands. Memory seems reasonable, as does fund of knowledge, judgment. Gait is not tested per her request. Neck is supple no meningeal signs are present. P3/3 RL, full eye movements without nystagmus, funduscopic reveals sharp discs. Visual salazar are full and there is no visual extinction. Facial sensation is intact to pain. She has mild right lower facial weakness. Hearing is symmetric. Gag is slightly hypoactive, shoulder shrug is symmetric, tongue is midline. Sensory testing is normal to pain, position, double touch. Strength is normal in the left arm and leg. Right arm is 4+/5 distally, distal right leg is 4+/5-. She has a mild right arm drift. Tendon reflexes are 1/1 in the brachioradialis, biceps, triceps, knees and ankles. Babinski signs are absent. Carotids are 1/1, no pedal edema today. NIHSS score is 3 for minor facial weakness, slight aphasia, right arm drift. Pertinent data: A transesophageal echocardiogram was performed in March of this year, after her tricuspid and mitral valve surgeries. This looks very good. No [id number] shunt. A1c is 6.7. Head CT is said to show an old right-sided CVA, no details known. Scan not available. Impression: Acute stroke. The patient's last known normal was probably when she went to bed last night. She was out of the window for any acute therapies at presentation, such as tPA. She is not a candidate for thrombectomy because of the low NIH score. Her risk factors for stroke include age, hypertension, hyperlipidemia, history of CAD, diabetes. Asfar as I can tell in the record, no atrial arrhythmia. Her current examination would suggest the possibility of a left cortical stroke, given intermittentdifficulty with understanding. However, it easily could be subcortical. Recommend: 1. Aspirin 325 x 1, then 81 mg daily. 2. Plavix 75 mg daily. After 1 month I would have the patient discontinue the aspirin and continue the Plavix. 3. Noncontrast MRI of the brain. 4. Lovenox 40 mg daily. 5. Carotid ultrasound. 6. Hemoglobin A1c, fasting lipid profile. 7. Speech is currently seeing the patient, she should also be evaluated by PT and OT for rehab needs. 8. Stroke education. 9. Telemetry. AGER AND STRAPPER documented in this encounter Miscellaneous Notes * Plan of Care - Lefty Gaviria RN - 02/11/2019 10:29 AM PACKAGER AND STRAPPER Problem: Health Behavior: Goal: Understanding of discharge needs will improve 02/11/2019 1029 by Lefyt Gaviria RN Outcome: Adequate for Discharge 02/11/2019 1029 by Lefty Gaviria RN Outcome: Progressing Problem: Activity: Goal: Capacity to carry out activities will improve 02/11/2019 1029 by Lefty Gaviria RN Outcome: Adequate for Discharge 02/11/2019 1029 by Lefty Gaviria RN Outcome: Progressing Goal: Mobility will improve 02/11/2019 1029 by Lefty Gaviria RN Outcome: Adequate for Discharge 02/11/2019 1029 by Lefty Gaviria RN Outcome: Progressing Goal: Range of joint motion will improve 02/11/2019 1029 by Lefty Gaviria RN Outcome: Adequate for Discharge 02/11/2019 1029 by Lefty Gaviria RN Outcome: Progressing Problem: Lack of Knowledge: Goal: Verbalization of understanding the information provided will improve 02/11/2019 1029 by Lefty Gaviria RN Outcome: Adequate for Discharge 02/11/2019 1029 by Lefty Gaviria RN Outcome: Progressing Problem: Coping: Goal: Ability to verbalize positive feelings about self will improve 02/11/2019 1029 by Lefty Gaviria RN Outcome: Adequate for Discharge 02/11/2019 1029 by Lefty Gaviria RN Outcome: Progressing Goal: Ability to identify appropriate support needs will improve 02/11/2019 1029 by Lefty Gaviria RN Outcome: Adequate for Discharge 02/11/2019 1029 by Lefty Gaviria RN Outcome: Progressing Goal: Ability to identify strategies to decrease anxiety will improve 02/11/2019 1029 by Lefty Gaviria RN Outcome: Adequate for Discharge 02/11/2019 1029 by Lefty Gaviria RN Outcome: Progressing Problem: Health Behavior: Goal: Ability to manage health-related needs will improve 02/11/2019 1029 by Lefty Gaviria RN Outcome: Adequate for Discharge 02/11/2019 1029 by Lefty Gaviria RN Outcome: Progressing Problem: Nutritional: Goal: Ability to chew and swallow food without choking will improve 02/11/2019 1029 by Lefty Gaviria RN Outcome: Adequate for Discharge 02/11/2019 1029 by Lefty Gaviria RN Outcome: Progressing Goal: Dietary intake will improve 02/11/2019 1029 by Lefty Gaviria RN Outcome: Adequate for Discharge 02/11/2019 1029 by Lefty Gaviria RN Outcome: Progressing Problem: Physical Regulation: Goal: Ability to maintain clinical measurements within normal limits will improve 02/11/2019 1029 by Lefty Gaviria RN Outcome: Adequate for Discharge 02/11/2019 1029 by Lefty Gaviria RN Outcome: Progressing Goal: Ability to maintain continence will improve 02/11/2019 1029 by Lefty Gaviria RN Outcome: Adequate for Discharge 02/11/2019 1029 by Lefty Gaviria RN Outcome: Progressing Goal: Complications related to the disease process, condition or treatment will be avoided or minimized 02/11/2019 1029 by Lefty Gaviria RN Outcome: Adequate for Discharge 02/11/2019 1029 by Lefty Gaviria RN Outcome: Progressing Problem: Respiratory: Goal: Ability to state ways to decrease risk of aspiration will improve 02/11/2019 1029 by Lefty Gaviria RN Outcome: Adequate for Discharge 02/11/2019 1029 by Lefty Gaviria RN Outcome: Progressing Goal: Ability to maintain adequate ventilation will improve 02/11/2019 1029 by Lefty Gaviria RN Outcome: Adequate for Discharge 02/11/2019 1029 by Lefty Gaviria RN Outcome: Progressing Problem: Role Relationship: Goal: Ability to communicate needs accurately will improve 02/11/2019 1029 by Lefty Gaviria RN Outcome: Adequate for Discharge 02/11/2019 1029 by Lefty Gaviria RN Outcome: Progressing Goal: Ability to reevaluate and adapt role responsibilities will improve 02/11/2019 1029 by Lefty Gaviria RN Outcome: Adequate for Discharge 02/11/2019 1029 by Lefty Gaviria RN Outcome: Progressing Problem: Safety: Goal: Ability to remain free from injury will improve 02/11/2019 1029 by Lefty Gaviria RN Outcome: Adequate for Discharge 02/11/2019 1029 by Lefty Gaviria RN Outcome: Progressing Problem: Self-Care: Goal: Ability to participate in self-care as condition permits will improve 02/11/2019 1029 by Lefty Gaviria RN Outcome: Adequate for Discharge 02/11/2019 1029 by Lefty Gaviria RN Outcome: Progressing Goal: Verbalization of feelings and concerns over difficulty with self-care will improve 02/11/2019 1029 by Lefty Gaviria RN Outcome: Adequate for Discharge 02/11/2019 1029 by Lefty Gaviria RN Outcome: Progressing Problem: Skin Integrity: Goal: Risk for impaired skin integrity will decrease 02/11/2019 1029 by Lefty Gaviria RN Outcome: Adequate for Discharge 02/11/2019 1029 by Lefty Gaviria RN Outcome: Progressing Problem: Tissue Perfusion: Goal: Cerebral tissue perfusion will improve 02/11/2019 1029 by Lefty Gaviria RN Outcome: Adequate for Discharge 02/11/2019 1029 by Lefty Gaviria RN Outcome: Progressing Goal: Neurologic status will improve 02/11/2019 1029 by Lefty Gaviria RN Outcome: Adequate for Discharge 02/11/2019 1029 by Lefty Gaviria RN Outcome: Progressing Goal: Risk of venous thrombosis will decrease 02/11/2019 1029 by Lefty Gaviria RN Outcome: Adequate for Discharge 02/11/2019 1029 by Lefty Gaviria RN Outcome: Progressing Goals: Clinical Goals for the Shift: vss, neuro checks, monitor labs, safety Summary: vss, testing complete, awaiting MD visit, possible d/c to home w outpt PT/OT/SPT today. Lefty Gaviria RN [employer]PER * Plan of Care - Allison Oates RN - 02/11/2019 3:12 AM CST Problem: Health Behavior: Goal: Understanding of discharge needs will improve Outcome: Progressing Problem: Activity: Goal: Capacity to carry out activities will improve Outcome: Progressing Goal: Mobility will improve Outcome: Progressing Goal: Range of joint motion will improve Outcome: Progressing Problem: Lack of Knowledge: Goal: Verbalization of understanding the information provided will improve Outcome: Progressing Problem: Coping: Goal: Ability to verbalize positive feelings about self will improve Outcome: Progressing Goal: Ability to identify appropriate support needs will improve Outcome: Progressing Goal: Ability to identify strategies to decrease anxiety will improve Outcome: Progressing Problem: Health Behavior: Goal: Ability to manage health-related needs will improve Outcome: Progressing Problem: Nutritional: Goal: Ability to chew and swallow food without choking will improve Outcome: Progressing Goal: Dietary intake will improve Outcome: Progressing Problem: Physical Regulation: Goal: Ability to maintain clinical measurements within normal limits will improve Outcome: Progressing Goal: Ability to maintain continence will improve Outcome: Progressing Goal: Complications related to the disease process, condition or treatment will be avoided or minimized Outcome: Progressing Problem: Respiratory: Goal: Ability to state ways to decrease risk of aspiration will improve Outcome: Progressing Goal: Ability to maintain adequate ventilation will improve Outcome: Progressing Problem: Role Relationship: Goal: Ability to communicate needs accurately will improve Outcome: Progressing Goal: Ability to reevaluate and adapt role responsibilities will improve Outcome: Progressing Problem: Safety: Goal: Ability to remain free from injury will improve Outcome: Progressing Problem: Self-Care: Goal: Ability to participate in self-care as condition permits will improve Outcome: Progressing Goal: Verbalization of feelings and concerns over difficulty with self-care will improve Outcome: Progressing Problem: Skin Integrity: Goal: Risk for impaired skin integrity will decrease Outcome: Progressing Problem: Tissue Perfusion: Goal: Cerebral tissue perfusion will improve Outcome: Progressing Goal: Neurologic status will improve Outcome: Progressing Goal: Risk of venous thrombosis will decrease Outcome: Progressing Goals: Clinical Goals for the Shift: vss, neuro checks, monitor labs, safety Summary: vss, A&Ox4, neuro checks unchanged. No complaints of pain. Nightly blood sugar required SSI. Will continue to monitor. [employer] * Plan of Care - Lefty Gaviria RN - 02/10/2019 10:54 AM [employer] Problem: Health Behavior: Goal: Understanding of discharge needs will improve Outcome: Progressing Problem: Activity: Goal: Capacity to carry out activities will improve Outcome: Progressing Goal: Mobility will improve Outcome: Progressing Goal: Range of joint motion will improve Outcome: Progressing Problem: Lack of Knowledge: Goal: Verbalization of understanding the information provided will improve Outcome: Progressing Problem: Coping: Goal: Ability to verbalize positive feelings about self will improve Outcome: Progressing Goal: Ability to identify appropriate support needs will improve Outcome: Progressing Goal: Ability to identify strategies to decrease anxiety will improve Outcome: Progressing Problem: Health Behavior: Goal: Ability to manage health-related needs will improve Outcome: Progressing Problem: Nutritional: Goal: Ability to chew and swallow food without choking will improve Outcome: Progressing Goal: Dietary intake will improve Outcome: Progressing Problem: Physical Regulation: Goal: Ability to maintain clinical measurements within normal limits will improve Outcome: Progressing Goal: Ability to maintain continence will improve Outcome: Progressing Goal: Complications related to the disease process, condition or treatment will be avoided or minimized Outcome: Progressing Problem: Respiratory: Goal: Ability to state ways to decrease risk of aspiration will improve Outcome: Progressing Goal: Ability to maintain adequate ventilation will improve Outcome: Progressing Problem: Role Relationship: Goal: Ability to communicate needs accurately will improve Outcome: Progressing Goal: Ability to reevaluate and adapt role responsibilities will improve Outcome: Progressing Problem: Safety: Goal: Ability to remain free from injury will improve Outcome: Progressing Problem: Self-Care: Goal: Ability to participate in self-care as condition permits will improve Outcome: Progressing Goal: Verbalization of feelings and concerns over difficulty with self-care will improve Outcome: Progressing Problem: Skin Integrity: Goal: Risk for impaired skin integrity will decrease Outcome: Progressing Problem: Tissue Perfusion: Goal: Cerebral tissue perfusion will improve Outcome: Progressing Goal: Neurologic status will improve Outcome: Progressing Goal: Risk of venous thrombosis will decrease Outcome: Progressing Goals: Clinical Goals for the Shift: monitor labs and vs, safety, rest, neuro checks Summary: vss, coreg d/c, labetalol prn. 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 Carotids neg. Awaiting echo. PT seen. Lefty Gaviria RN [employer]PER [employer]PER * Plan of Care - Usman Natarajan RN - 02/10/2019 3:10 AM [employer] Problem: Health Behavior: Goal: Understanding of discharge needs will improve Outcome: Progressing Problem: Activity: Goal: Capacity to carry out activities will improve Outcome: Progressing Goal: Mobility will improve Outcome: Progressing Goal: Range of joint motion will improve Outcome: Progressing Problem: Lack of Knowledge: Goal: Verbalization of understanding the information provided will improve Outcome: Progressing Problem: Coping: Goal: Ability to verbalize positive feelings about self will improve Outcome: Progressing Goal: Ability to identify appropriate support needs will improve Outcome: Progressing Goal: Ability to identify strategies to decrease anxiety will improve Outcome: Progressing Problem: Health Behavior: Goal: Ability to manage health-related needs will improve Outcome: Progressing Problem: Nutritional: Goal: Ability to chew and swallow food without choking will improve Outcome: Progressing Goal: Dietary intake will improve Outcome: Progressing Problem: Physical Regulation: Goal: Ability to maintain clinical measurements within normal limits will improve Outcome: Progressing Goal: Ability to maintain continence will improve Outcome: Progressing Goal: Complications related to the disease process, condition or treatment will be avoided or minimized Outcome: Progressing Problem: Respiratory: Goal: Ability to state ways to decrease risk of aspiration will improve Outcome: Progressing Goal: Ability to maintain adequate ventilation will improve Outcome: Progressing Problem: Role Relationship: Goal: Ability to communicate needs accurately will improve Outcome: Progressing Goal: Ability to reevaluate and adapt role responsibilities will improve Outcome: Progressing Problem: Safety: Goal: Ability to remain free from injury will improve Outcome: Progressing Problem: Self-Care: Goal: Ability to participate in self-care as condition permits will improve Outcome: Progressing Goal: Verbalization of feelings and concerns over difficulty with self-care will improve Outcome: Progressing Problem: Skin Integrity: Goal: Risk for impaired skin integrity will decrease Outcome: Progressing Problem: Tissue Perfusion: Goal: Cerebral tissue perfusion will improve Outcome: Progressing Goal: Neurologic status will improve Outcome: Progressing Goal: Risk of venous thrombosis will decrease Outcome: Progressing Goals: Clinical Goals for the Shift: monitor labs and vs, safety, rest, neuro checks Summary: Patient was able to take meds as ordered. Vss. Neuro checks done and unchanged. Patient was able to rest. MRI done. Will continue to monitor. [employer] * Plan of Care - Marylu Link RN - 02/09/2019 6:32 PM CST Problem: Health Behavior: Goal: Understanding of discharge needs will improve Outcome: Progressing Problem: Activity: Goal: Capacity to carry out activities will improve Outcome: Progressing Goal: Mobility will improve Outcome: Progressing Goal: Range of joint motion will improve Outcome: Progressing Problem: Lack of Knowledge: Goal: Verbalization of understanding the information provided will improve Outcome: Progressing Problem: Coping: Goal: Ability to verbalize positive feelings about self will improve Outcome: Progressing Goal: Ability to identify appropriate support needs will improve Outcome: Progressing Goal: Ability to identify strategies to decrease anxiety will improve Outcome: Progressing Problem: Health Behavior: Goal: Ability to manage health-related needs will improve Outcome: Progressing Problem: Nutritional: Goal: Ability to chew and swallow food without choking will improve Outcome: Progressing Goal: Dietary intake will improve Outcome: Progressing Problem: Physical Regulation: Goal: Ability to maintain clinical measurements within normal limits will improve Outcome: Progressing Goal: Ability to maintain continence will improve Outcome: Progressing Goal: Complications related to the disease process, condition or treatment will be avoided or minimized Outcome: Progressing Problem: Respiratory: Goal: Ability to state ways to decrease risk of aspiration will improve Outcome: Progressing Goal: Ability to maintain adequate ventilation will improve Outcome: Progressing Problem: Role Relationship: Goal: Ability to communicate needs accurately will improve Outcome: Progressing Goal: Ability to reevaluate and adapt role responsibilities will improve Outcome: Progressing Problem: Safety: Goal: Ability to remain free from injury will improve Outcome: Progressing Problem: Self-Care: Goal: Ability to participate in self-care as condition permits will improve Outcome: Progressing Goal: Verbalization of feelings and concerns over difficulty with self-care will improve Outcome: Progressing Problem: Skin Integrity: Goal: Risk for impaired skin integrity will decrease Outcome: Progressing Problem: Tissue Perfusion: Goal: Cerebral tissue perfusion will improve Outcome: Progressing Goal: Neurologic status will improve Outcome: Progressing Goal: Risk of venous thrombosis will decrease Outcome: Progressing Goals: Clinical Goals for the Shift: VSS, q4h neurochecks, remain free from injury Summary: DSN from [facility]. NIH is 3 upon admission. Failed dysphagia screen, seen by LARD [facility]UB WASHER. Pt and family refusing aspirin at this time, MD is aware. Stroke education provided. Continue to monitor. [employer]PER documented in this encounter Plan of Treatment Not on file documented as of this encounter Procedures Procedure Name Priority Date/Time Associated Diagnosis Comments POCT GLUCOSE DEVICE Routine 02/11/2019 6 :14 AM [employer] POCT GLUCOSE DEVICE Routine 02/10/2019 8 :53 PM [employer]PER POCT GLUCOSE DEVICE Routine 02/10/2019 5 :23 PM [employer] AND STRAPPER TRANSTHORACIC ECHO (TTE) COMPLETE W DOPPLER/CF WO CONTRAST Pending Discharge 02/10/2019 3:53 PM [employer]PER US CAROTIDS DUPLEX BILATERAL IP Routine 02/10/2019 8:17 AM [employer]APPER POCT GLUCOSE DEVICE Routine 02/10/2019 6 :03 AM [employer] AND [employer]PER POCT GLUCOSE DEVICE Routine 02/09/2019 8 :27 PM [employer]PER MRI BRAIN WO CONTRAST IP Routine 02/09/2019 8:09 PM [employer] AND [employer]APPER ECG 12-LEAD Routine 02/09/2019 5:49 PM [employer]PER POCT GLUCOSE DEVICE Routine 02/09/2019 4 :59 PM [employer]PER EGFR Routine 02/09/2019 4:47 PM [employer] AND [employer]PER DIFFERENTIAL AUTO Routine 02/09/2019 4:4 7 PM [employer] AND [employer]PER CBC WITH AUTO DIFFERENTIAL Routine 02/09/2019 4:47 PM [employer]PER TSH Routine 02/09/2019 4:47 PM [employer]PER MAGNESIUM Routine 02/09/2019 4:47 PM [employer] AND [employer]PER HEMOGLOBIN A1C Routine 02/09/2019 4:47 PM [employer] AND [employer]PER LIPID PANEL Routine 02/09/2019 4:47 PM [employer]PER COMPREHENSIVE METABOLIC PANEL Routine 02/09/2019 4:47 PM [employer]AG[employer] AND STRAPPER URINALYSIS AND REFLEX TO MICROSCOPIC AND CULTURE Routine 02/09/2019 3:53 PM [employer] AND [employer]APPER URINALYSIS, MICROSCOPIC ONLY Routine 02/09/2019 3:53 PM [employer]PER documented in this encounter Results * POCT glucose (02/11/2019 6:14 AM P[employer]AG[employer] AND STRAPPER) Glucose, POC 129 70 - 140 mg/dL [facility] Comment: For Glucose values <35 mg/dl when Hematocrit is >60 mg/dl,the test may not accurately detect significant hypoglycemia,and testing in the Laboratory should be considered if clinically indicated. Blood specimen (specimen) 02/11/2019 6:14 AM [employer] AND STRAPPER 02/11/2019 6:14 AM [employer] AND STRAPPER us Sebastián Montalvo MD LAB POCT ORDERABLES - DEVICE Fin al Result Performing Organization Address [facility] Co de Phone Number [facility] [address] [facility] [place] [address] * (ABNORMAL) POCT glucose (02/10/2019 8:53 PM P[employer]AGER AND STRAPPER) Glucose, POC 219(H) 70 - 140 mg/dL [facility] Comment: For Glucose values <35 mg/dl when Hematocrit is >60 mg/dl,the test may not accurately detect significant hypoglycemia,and testing in the Laboratory should be considered if clinically indicated. Blood specimen (specimen) 02/10/2019 8:53 PM P[employer] AND STRAPPER 02/10/2019 8:53 PM [employer] AND STRAPPER Result [facility] Sebastián Montalvo MD LAB POCT ORDERABLES - DEVICE Fin al Result Performing Organization Address [facility] de Phone Number [facility] [address] [facility] [place] [address] * (ABNORMAL) POCT glucose (02/10/2019 5:23 PM P[employer] AND STRAPPER) Glucose, POC 164(H) 70 - 140 mg/dL [facility] Comment: For Glucose values <35 mg/dl when Hematocrit is >60 mg/dl,the test may not accurately detect significant hypoglycemia,and testing in the Laboratory should be considered if clinically indicated. Blood specimen (specimen) 02/10/2019 5:23 PM P[employer] AND STRAPPER 02/10/2019 5:23 PM [employer] AND STRAPPER Sebastián Montalvo MD LAB POCT ORDERABLES - DEVICE Fin al Result Performing Organization Address [facility] Co de Phone Number [facility] [address] [place] [address] * TRANSTHORACIC ECHO (TTE) COMPLETE W DOPPLER/CF WO CONTRAST (02/10/2019 3:53 PM PACKAGER AND STRAPPER) Anatomical Region Laterality Modality Ultrasound 02/10/2019 2:52 PM P[employer] AND STRAPPER Narrative 02/10/2019 8:08 PM P[employer]AGER AND STRAPPER [facility] [address] [place] [address] ECHOCARDIOGRAM Patient Name: SHAVON SINGH : [id number] Study Date: 02/10/2019 2:52:07 PM Gender: F Tech: Location: [address] Ref.Physician: SEBASTIÁN MONTALVO Height(Cm): 163 BSA: 1.68 Weight(Kg): 62.6 Order Physician: NALLELY DUQUE Procedures: Echocardiographic Report: Transthoracic Echocardiogram with 2D, M-Mode, Spectral and Color Flow Doppler examination and saline contrast study. Indications: Cerebrovascular accident. Measurements: 2D/M Mode Doppler Measurement Value Normal Range Measurement Value Normal Range IVSd 2D 1.15 [ 0.60 - 0.90 ] cm AV Peak Yves 1.2 [ 1.0 - 1.7 ] m/s LVIDd 2D 3.95 [ 3.90 - 5.30 ] cm AV Peak PG 6 [ 2 - 9 ] mmHg LVIDs 2D 2.67 [ 2.30 - 3.90 ] cm AV Mean PG 3 [ 2 - 4 ] mmHg LVPWd 2D 1.22 [ 0.60 - 1.00 ] cm AV VTI 23.0 cm LA Dimension 2D 3.78 [ 2.70 - 3.80 ] cm MIGUEL VTI 2.5 [ 2.0 - 4.0 ] cm2 AoR Diam 2D 3.12 [ 2.60 - 3.70 ] cm LVOT Peak Yves 1.00 [ 0.70 - 1.10 ] m/s TAPSE 1.08 [ 1.60 - 3.00 ] cm LVOT Diam 1.9 [ 1.7 - 2.1 ] cm LVOT VTI 19.9 [ 20.0 - 30.0 ] cm MV Peak PG 8 [ 1 - 10 ] mmHg MV Mean PG 3 [ <= 5 ] mmHg MV E Peak Yves 1.2 [ 0.6 - 1.3 ] m/s MV A Peak Yves 0.9 [ 1.0 - 1.2 ] m/s MV PHT 66.6 [ 20.0 - 100.0 ] ms MV Decel Time 305.2 [ 104.0 - 258.0 ] ms MVA PHT 3.3 [ 2.0 - 4.0 ] ms MV E/A Ratio 1.3 TR Peak Yves 2.3 [ 1.0 - 2.8 ] m/s TR Peak PG 21 mmHg PV Peak Yves 0.7 [ 0.4 - 0.8 ] m/s PV Peak PG 2 mmHg Lat E` Yves 0.09 [ 0.10 - 0.15 ] m/s Sept E' Yves 0.04 [ 0.08 - 0.15 ] m/s E/E` 13.33 RV S' 0.08 m/s Findings: BP: Blood pressure: 150/70 mmHg. Left Ventricle: Normal global and regional left ventricular systolic function. Ejection Fraction is measured at (Simpsons) 60 %. Right Ventricle: Normal right ventricular systolic function. Left Atrium: Left atrial size upper limits of normal. Right Atrium: The right atrium is normal in size. Atrial Septum: Normal appearing atrial septum. Saline contrast study negative for R to L shunt. Mitral Valve: There is no mitral regurgitation. A mitral valve annuloplasty ring is present. Aortic Valve: Normal aortic valve appearance and function. Trace aortic valve regurgitation. Tricuspid Valve: Normal tricuspid valve appearance and function. Pulmonic Valve: Normal appearance and function of the pulmonic valve. Pericardium: No significant pericardial effusion. Aortic Root and Aorta: Normal caliber aortic root. Aortic Arch: Normal caliber aortic arch. IVC: Normal appearance of the inferior vena cava. Conclusions: 1. Normal global and regional left ventricular systolic function. Ejection Fraction is measured at (Simpsons) 60 %. 2. Normal right ventricular systolic function. 3. Normal appearing atrial septum. Saline contrast study negative for R to L shunt. 4. There is no mitral regurgitation. A mitral valve annuloplasty ring is present. 5. Normal aortic valve appearance and function. Trace aortic valve regurgitation. Electronically Signed By: Nirmal Morley MD 2019-02-10 20:07:59 [employer] CC: CC: Procedure Note Nirmal Morley MD - 02/10/2019 [facility] [address] [place] [address] ECHOCARDIOGRAM Patient Name: SHAVON SINGH : [id number] Study Date: 02/10/2019 2:52:07 PM Gender: F Tech: Location: [id number] Ref.Physician: SEBASTIÁN MONTALVO Height(Cm): 163 BSA: 1.68 Weight(Kg): 62.6 Order Physician: NALLELY DUQUE Procedures: Echocardiographic Report: Transthoracic Echocardiogram with 2D, M-Mode, Spectral and Color FlowDoppler examination and saline contrast study. Indications: Cerebrovascular accident. Measurements: 2D/M Mode Doppler Measurement Value Normal Range Measurement Value Normal Range IVSd 2D 1.15 [ 0.60 - 0.90 ] cm AV Peak Yves 1.2 [ 1.0 - 1.7 ] m/s LVIDd 2D 3.95 [ 3.90 - 5.30 ] cm AV Peak PG 6 [ 2 - 9 ] mmHg LVIDs 2D 2.67 [ 2.30 - 3.90 ] cm AV Mean PG 3 [ 2 - 4 ] mmHg LVPWd 2D 1.22 [ 0.60 - 1.00 ] cm AV VTI 23.0 cm LA Dimension 2D 3.78 [ 2.70 - 3.80 ] cm MIGUEL VTI 2.5 [ 2.0 - 4.0 ] cm2 AoR Diam 2D 3.12 [ 2.60 - 3.70 ] cm LVOT Peak Yves 1.00 [ 0.70 - 1.10 ]m/s TAPSE 1.08 [ 1.60 - 3.00 ] cm LVOT Diam 1.9 [ 1.7 - 2.1 ] cm LVOT VTI 19.9 [ 20.0 - 30.0 ] cm MV Peak PG 8 [ 1 - 10 ] mmHg MV Mean PG 3 [ <= 5 ] mmHg MV E Peak Yves 1.2 [ 0.6 - 1.3 ] m/s MV A Peak Yves 0.9 [ 1.0 - 1.2 ] m/s MV PHT 66.6 [ 20.0 - 100.0 ] ms MV Decel Time 305.2 [ 104.0 - 258.0 ] ms MVA PHT 3.3 [ 2.0 - 4.0 ] ms MV E/A Ratio 1.3 TR Peak Yves 2.3 [ 1.0 - 2.8 ] m/s TR Peak PG 21 mmHg PV Peak Yves 0.7 [ 0.4 - 0.8 ] m/s PV Peak PG 2 mmHg Lat E` Yves 0.09 [ 0.10 - 0.15 ] m/s Sept E' Yves 0.04 [ 0.08 - 0.15 ] m/s E/E` 13.33 RV S' 0.08 m/s Findings: BP: Blood pressure: 150/70 mmHg. Left Ventricle: Normal global and regional left ventricular systolic function. EjectionFraction is measured at (Simpsons) 60 %. Right Ventricle: Normal right ventricular systolic function. Left Atrium: Left atrial size upper limits of normal. Right Atrium: The right atrium is normal in size. Atrial Septum: Normal appearing atrial septum. Saline contrast study negative for R to Lshunt. Mitral Valve: There is no mitral regurgitation. A mitral valve annuloplasty ring ispresent. Aortic Valve: Normal aortic valve appearance and function. Trace aortic valveregurgitation. Tricuspid Valve: Normal tricuspid valve appearance and function. Pulmonic Valve: Normal appearance and function of the pulmonic valve. Pericardium: No significant pericardial effusion. Aortic Root and Aorta: Normal caliber aortic root. Aortic Arch: Normal caliber aortic arch. IVC: Normal appearance of the inferior vena cava. Conclusions: 1. Normal global and regional left ventricular systolic function. EjectionFraction is measured at (Simpsons) 60 %. 2. Normal right ventricular systolic function. 3. Normal appearing atrial septum. Saline contrast study negative for R Lacho shunt. 4. There is no mitral regurgitation. A mitral valve annuloplasty ring ispresent. 5. Normal aortic valve appearance and function. Trace aortic valveregurgitation. Electronically Signed By: Nirmal Morley MD 2019-02-10 20:07:59 [employer] CC: CC: Nallely Duque MD CV ECHO PROCEDURES Final Resul t * US Carotids Duplex Bilateral (02/10/2019 8:17 AM PACKAGER AND STRAPPER) Anatomical Region Laterality Modality Vascular Bilateral Ultrasound 02/11/2019 9:39 AM PACKAGER AND STRAPPER Impressions 02/11/2019 9:40 AM P[employer]AGER AND STRAPPER 1. There is minimal atherosclerotic plaque in both carotid bifurcations which is not of hemodynamic significance ( less than 50% stenosis ). 2. Vertebral artery flow is antegrade bilaterally. ?? The estimated degree of stenosis of the internal carotid arteries reported on this examination is based on measurement criteria utilized in the NASCET study. Electronically signed by: Mohsen Bai M.D. Narrative 02/11/2019 9:40 AM PACKAGER AND STRAPPER EXAM: ??Duplex imaging study of the carotid and vertebral arteries. HISTORY: ??Right-sided weakness. COMPARISON: ??None available. PLAQUE: There is minimal atherosclerotic plaque in the right carotid bulb and proximal internal carotid artery and the left carotid bulb and proximal internal carotid artery. DOPPLER: Flow velocities are within the normal range bilaterally. ?? VERTEBRAL ARTERY FLOW: Vertebral artery flow is antegrade bilaterally. Procedure Note Mohsen Bai MD - 02/11/2019 EXAM: Duplex imaging study of the carotid and vertebral arteries. HISTORY: Right-sided weakness. COMPARISON: None available. PLAQUE: There is minimal atherosclerotic plaque in the right carotid bulb and proximal internal carotid artery and the left carotid bulb and proximal internal carotid artery. DOPPLER: Flow velocities are within the normal range bilaterally. VERTEBRAL ARTERY FLOW: Vertebral artery flow is antegrade bilaterally. IMPRESSION: 1. There is minimal atherosclerotic plaque in both carotid bifurcations which is not of hemodynamic significance ( less than 50% stenosis ). 2. Vertebral artery flow is antegrade bilaterally. The estimated degree of stenosis of the internal carotid arteries reported on this examination is based on measurement criteria utilized in the NASCET study. Electronically signed by: Mohsen Bai M.D. Nallely Duque MD [facility] PROCEDURES Final Result * POCT glucose (02/10/2019 6:03 AM PACKAGER AND STRAPPER) [facility] Signature Glucose, POC 125 70 - 140 mg/dL [facility] Comment: For Glucose values <35 mg/dl when Hematocrit is >60 mg/dl,the test may not accurately detect significant hypoglycemia,and testing in the Laboratory should be considered if clinically indicated. Blood specimen (specimen) 02/10/2019 6:03 AM P[employer]AGER AND STRAPPER 02/10/2019 6:03 AM PACKAGER AND STRAPPER us Sebastián Montalvo MD LAB POCT ORDERABLES - DEVICE Fin al Result [facility] [address] Department [place] [address] * (ABNORMAL) POCT glucose (02/09/2019 8:27 PM PACKAGER AND STRAPPER) Glucose, POC 274(H) 70 - 140 mg/dL [facility] Comment: For Glucose values <35 mg/dl when Hematocrit is >60 mg/dl,the test may not accurately detect significant hypoglycemia,and testing in the Laboratory should be considered if clinically indicated. Blood specimen (specimen) 02/09/2019 8:27 PM P[employer]AGER AND STRAPPER 02/09/2019 8:27 PM P[employer]AGER AND STRAPPER us Taj Vargas MD LAB POCT ORDERABLES - DEVICE Final Result [facility] [address] Department [place] [address] * MRI Brain WO Contrast (02/09/2019 8:09 PM PACKAGER AND STRAPPER) Anatomical Region Laterality Modality Head and Neck N/A Magnetic Resonan ce 02/10/2019 10:3 3 AM P[employer]AGER AND STRAPPER Impressions 02/10/2019 10:41 AM P[employer]AGER AND STRAPPER 1. ??Multiple punctate foci of acute ischemic infarct in the left cerebral hemisphere, described in detail above. 2. 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 Results called to the patient's RN by Dr. Chua at 10:35 AM on 02/10/2019. Electronically signed by: Hermes Chua MD Narrative 02/10/2019 10:41 AM P[employer]AGER AND STRAPPER EXAMINATION: Magnetic resonance imaging (MRI) of the brain without contrast HISTORY: Right-sided weakness. TECHNIQUE: Multiplanar multi-weighted MRI of the brain was performed without intravenous contrast using the standard protocol. COMPARISON: None FINDINGS: Multiple tiny foci of restricted diffusion and corresponding T2/FLAIR hyperintensity noted in the left cerebral hemisphere. ??Affected sites include the left mirza radiata, the left caudate nucleus, the left insular cortex and adjacent subcortical white matter, and the left globus pallidus. ??Findings are compatible with acute ischemic infarcts. Subcentimeter curvilinear focus of susceptibility in the left sylvian fissure, likely corresponding to a left MCA branch. ??FLAIR hyperintensity also noted within a left MCA branch in this location. Findings suggest slow flow or occlusion within a distal MCA branch. Small remote infarct in the right occipital lobe, with associated hemosiderin deposition. ??Small remote infarct in the right parietal lobe, with associated hemosiderin deposition. ??Mild degree of patchy FLAIR hyperintensity in the hemispheric white matter, compatible with chronic small vessel ischemia. ??Appropriate ventricular size allowing for generalized cerebral volume loss. No midline shift or mass effect. No acute intracranial hemorrhage. Normal scalp and calvaria. Unremarkable pituitary and sella. Clear paranasal sinuses and mastoid air cells. Major vascular flow voids are preserved. Normal orbits. Procedure Note Hermes Chua MD - 02/10/2019 EXAMINATION: Magnetic resonance imaging (MRI) of the brain without contrast HISTORY: Right-sided weakness. TECHNIQUE: Multiplanar multi-weighted MRI of the brain was performed without intravenous contrast using the standard protocol. COMPARISON: None FINDINGS: Multiple tiny foci of restricted diffusion and corresponding T2/FLAIR hyperintensity noted in the left cerebral hemisphere. Affected sites include the left mirza radiata, the left caudate nucleus, the left insular cortex and adjacent subcortical white matter, and the left globus pallidus. Findings are compatible with acute ischemic infarcts. Subcentimeter curvilinear focus of susceptibility in the left sylvian fissure, likely corresponding to a left MCA branch. FLAIR hyperintensity also noted within a left MCA branch in this location. Findings suggest slow flow or occlusion within a distal MCA branch. Small remote infarct in the right occipital lobe, with associated hemosiderin deposition. Small remote infarct in the right parietal lobe, with associated hemosiderin deposition. Mild degree of patchy FLAIR hyperintensity in the hemispheric white matter, compatible with chronic small vessel ischemia. Appropriate ventricular size allowing for generalized cerebral volume loss. No midline shift or mass effect. No acute intracranial hemorrhage. Normal scalp and calvaria. Unremarkable pituitary and sella. Clear paranasal sinuses and mastoid air cells. Major vascular flow voids are preserved. Normal orbits. IMPRESSION: 1. Multiple punctate foci of acute ischemic infarct in the left cerebral hemisphere, described in detail above. 2. 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 Results called to the patient's RN by Dr. Chua at 10:35 AM on 02/10/2019. Electronically signed by: Hermes Chua MD Nallely Duqeu MD IMG MRI PROCEDURES Final Resul t * ECG 12 lead (02/09/2019 5:49 PM P[employer]AGER AND STRAPPER) 02/09/2019 5:49 PM PACKAGER AND STRAPPER Narrative [facility] - 02/10/2019 9:12 AM PACKAGER AND STRAPPER Vent Rate: 67 bpm RR Interval: 883 msec [place] Interval: 155 msec QRS Duration: 110 msec QT Interval: 419 msec QTC Interval: 435 msec P-R-T [place]: 38 - 4 - 50 degrees SINUS RHYTHM WITH SINUS ARRHYTHMIA MINIMAL VOLTAGE CRITERIA FOR LVH, CONSIDER NORMAL VARIANT BORDERLINE ECG Electronically Signed By: Nirmal Morley MD Taj Vargas MD ECG ORDERABLES Final Result Performing Organization Address City/[facility]/ZIP Co de Phone Number [facility] * POCT glucose (02/09/2019 4:59 PM PACKAGER AND STRAPPER) [facility] Glucose, POC 100 70 - 140 mg/dL [facility] Comment: For Glucose values <35 mg/dl when Hematocrit is >60 mg/dl,the test may not accurately detect significant hypoglycemia,and testing in the Laboratory should be considered if clinically indicated. Blood specimen (specimen) 02/09/2019 4:59 PM PACKAGER AND STRAPPER 02/09/2019 4:59 PM PACKAGER AND STRAPPER Taj Vargas MD LAB POCT ORDERABLES - DEVICE Final Result Performing Organization Address [facility]/ZIP Co de Phone Number [facility] [address] Department [place] [address] * eGFR (02/09/2019 4:47 PM PACKAGER AND STRAPPER) [facility] eGFR 61 mL/min/1.[address] [facility] Comment: Interpretive Data Reference Interval Normal ?>/= 90 mL/min/1.73m2 Mildly decreased* ? 60 - 89 mL/min/1.73m2 Mildly to moderately decreased ?45 - 59 mL/min/1.73m2 Moderately to severely decreased ??30 - 44 mL/min/1.73m2 Severely decreased ?15 - 29 mL/min/1.73m2 Kidney Failure ?< 15 ??mL/min/1.73m2 *Relative to young adult level If -[place] multiply value by 1.16. Estimated glomerular filtration rate is determined by the CKD-EPI equation recommended by the National Kidney Foundation (KDIGO 2012 Clinical Practice Guideline for the Evaluation and Management of Chronic Kidney Disease. Kidney Intnl Suppl Feb 2012;3:1). The CKD-EPI equation should not be used for patients with unstable renal function and has not been validated in children and those over 70. Current interpretive data was last reviewed 2016. Blood specimen (specimen) 02/09/2019 4:47 PM PACKAGER AND STRAPPER 02/09/2019 5:01 PM PACKAGER AND STRAPPER us Taj Vargas MD LAB BLOOD ORDERABLES Final Result [facility] [address] Department of Laboratories [place], [place] [id number] * Differential, auto (02/09/2019 4:47 PM PACKAGER AND STRAPPER) Neutrophil abs 3.8 1.7 - 6.5 K/cumm [facility] Imm gran abs 0.0 0.0 - 0.1 K/cumm [facility] Lymphocyte abs 1.8 0.8 - 3.3 K/cumm [facility] Monocyte abs 0.4 0.2 - 0.8 K/cumm [facility] Eosinophil abs 0.1 0.0 - 0.5 K/cumm [facility] Basophil abs 0.1 0.0 - 0.1 K/cumm [facility] Neutrophil pct 61.3 % [facility] Comment: Interpretive Data Percent cell count reference ranges are not reported, since discordance with absolute values may lead to misinterpretation of CBC data. Current Interpretive Data was last revised on 2017. Imm gran pct 0.3 % [facility] Comment: Interpretive Data Percent cell count reference ranges are not reported, since discordance with absolute values may lead to misinterpretation of CBC data. Current Interpretive Data was last revised on 2017. Lymphocyte pct 28.8 % [facility] Comment: Interpretive Data Percent cell count reference ranges are not reported, since discordance with absolute values may lead to misinterpretation of CBC data. Current Interpretive Data was last revised on 2017. Monocyte pct 6.7 % [facility] Comment: Interpretive Data Percent cell count reference ranges are not reported, since discordance with absolute values may lead to misinterpretation of CBC data. Current Interpretive Data was last revised on 2017. Eosinophil pct 1.8 % [facility] Comment: Interpretive Data Percent cell count reference ranges are not reported, since discordance with absolute values may lead to misinterpretation of CBC data. Current Interpretive Data was last revised on 2017. Basophil pct 1.1 % [facility] Comment: Interpretive Data Percent cell count reference ranges are not reported, since discordance with absolute values may lead to misinterpretation of CBC data. Current Interpretive Data was last revised on 2017. Blood specimen (specimen) 02/09/2019 4:47 PM PACKAGER AND STRAPPER 02/09/2019 5:02 PM PACKAGER AND STRAPPER Taj Vargas MD LAB BLOOD ORDERABLES Final Result [facility] [address] Department [place] [address] * TSH (02/09/2019 4:47 PM PACKAGER AND STRAPPER) Thyroid Stimulating Hormone 2.82 0.30 - 4.20 mcIUnit/mL [facility] Blood specimen (specimen) 02/09/2019 4:47 PM PACKAGER AND STRAPPER 02/09/2019 5:01 PM PACKAGER AND STRAPPER Taj Vargas MD LAB BLOOD ORDERABLES Final Result Performing Organization Address [facility] Co de Phone Number [facility] [address] Department [place] [address] * (ABNORMAL) Hemoglobin A1c (02/09/2019 4:47 PM PACKAGER AND STRAPPER) [facility] Hgb A1C 7.6(H) 4.0 - 5.6 % [facility] Estimated Average Glucose 171 mg/dL [facility] Comment: The ADA recommends reporting an estimated Average Glucose (eAG) with all Hemoglobin A1c results using the equation derived from a study of 507 normal and diabetic adults. ??Minority populations were underrepresented and children were not included. ?? (Diabetes Care 31:8671-1022, 2008). ??The eAG is not equivalent to a fasting glucose. Blood specimen (specimen) 02/09/2019 4:47 PM PACKAGER AND STRAPPER 02/09/2019 5:02 PM PACKAGER AND STRAPPER Taj Vargas MD LAB BLOOD ORDERABLES Final Result Performing Organization Address [facility] Co de Phone Number [facility] [address] Department [place] [address] * (ABNORMAL) CBC with auto differential (02/09/2019 4:47 PM PACKAGER AND STRAPPER) [facility] WBC 6.3 3.8 - 9.9 K/cumm [facility] Hgb 11.9 11.9 - 15.5 g/dL [facility] Hct 37.8 35.6 - 45.5 % [facility] Plt 204 150 - 400 K/cumm [facility] MPV 11.0 9.1 - 12.[address] [facility] RBC 4.16 3.90 - 5.20 M/cumm [facility] MCV 90.9 81.3 - 96.[address] [facility] MCH 28.6 27.1 - 33.[address] [facility] MCHC 31.5(L) 32.3 - 35.7 g/dL [facility] RDW CV 13.3 11.1 - 14.9 % [facility] RDW SD 44.2 35.7 - 48.[address] [facility] NRBC abs 0.00 0.00 - 0.01 K/cumm [facility] Blood specimen (specimen) 02/09/2019 4:47 PM P[employer]AGER AND STRAPPER 02/09/2019 5:02 PM PACKAGER AND STRAPPER us Taj Vargas MD LAB BLOOD ORDERABLES Final Result [facility] [address] Department [place] [address] * (ABNORMAL) Lipid panel (02/09/2019 4:47 PM PACKAGER AND STRAPPER) Cholesterol 114 30 - 199 mg/dL [facility] Comment: Interpretive Data Ages < or [...] Data was last revised on 2017. Triglycerides 103 <=149 mg/dL [facility] Comment: Interpretive Data Ages < or [...] Data was last revised on 2017. HDL 39(L) >=40 mg/dL [facility] Comment: Interpretive Data Ages < or [...] was last revised on 2017. LDL, calculated 54 <=129 mg/dL [facility] Comment: Interpretive Data Ages < or [...] was last revised on 2017. Non-HDL Cholesterol 75 mg/dL [facility] Comment: Interpretive Data Ages < or [...] was last revised on 2017. Chol/HDL ratio [address] [facility] Blood specimen (specimen) 02/09/2019 4:47 PM PACKAGER AND STRAPPER 02/09/2019 5:01 PM P[employer]AGER AND STRAPPER Taj Vargas MD LAB BLOOD ORDERABLES Final Result Performing Organization Address [facility] de Phone Number [facility] [address] Department [place] [address] * Magnesium (02/09/2019 4:47 PM PACKAGER AND STRAPPER) Pathologist [facility] Magnesium 1.79 1.40 - 2.50 mg/dL [facility] Blood specimen (specimen) 02/09/2019 4:47 PM P[employer]AGER AND STRAPPER 02/09/2019 5:01 PM P[employer]AGER AND STRAPPER Taj Vargas MD LAB BLOOD ORDERABLES Final Result Performing Organization Address [facility] de Phone Number [facility] [address] [place] [address] * (ABNORMAL) Comprehensive metabolic panel (02/09/2019 4:47 PM PACKAGER AND STRAPPER) Pathologist [facility] Sodium 142 135 - 145 mmol/L [facility] Potassium, pl 4.1 3.3 - 4.9 mmol/L [facility] Chloride 111(H) 97 - 110 mmol/L [facility] CO2 21(L) 22 - 32 mmol/L [facility] Anion gap 10 2 - 15 mmol/L [facility] BUN 12 8 - 25 mg/dL [facility] Creatinine 0.89 0.60 - 1.10 mg/dL [facility] Glucose 128 70 - 199 mg/dL [facility] Comment: Interpretive Data Fasting glucose >/= [...] interpretive data was last revised 2017. Calcium 9.0 8.5 - 10.3 mg/dL [facility] Bilirubin, total 0.3 0.1 - 1.2 mg/dL [facility] Protein, pl 6.3(L) 6.5 - 8.5 g/dL [facility] Albumin 3.7 3.5 - 5.0 g/dL [facility] Alk phos 37(L) 40 - 130 Units/L [facility] ALT 26 7 - 45 Units/L [facility] AST 27 10 - 45 Units/L [facility] Blood specimen (specimen) 02/09/2019 4:47 PM P[employer]AGER AND STRAPPER 02/09/2019 5:01 PM P[employer]AGER AND STRAPPER us Taj Vargas MD LAB BLOOD ORDERABLES Final Result [facility] [address] Department [place] [address] * (ABNORMAL) Urinalysis, microscopic only (02/09/2019 3:53 PM PACKAGER AND STRAPPER) WBC, ur 0-5 0 - 5 /HPF [facility] RBC, ur 0-2 0 - 2 /HPF [facility] Epithelial cells, squamous, ur 1-5 0 - 5 /HPF [facility] Bacteria, ur Trace(A) [facility] Culture Reflex Comment Reflex conditions for urine culture (WBC >10) not met. [facility] Urine 02/09/2019 3:53 PM P[employer]AGER AND STRAPPER 02/09/2019 4:02 PM P[employer]AGER AND STRAPPER Taj Vargas MD LAB URINE ORDERABLES Final Result Performing Organization Address [facility] Co de Phone Number [facility] [address] Department [place] [address] * (ABNORMAL) Urinalysis reflex to microscopic and culture Urine (02/09/2019 3:53 PM PACKAGER AND STRAPPER) Color, ur Straw Yellow [facility] Clarity, ur Clear Clear [facility] Specific gravity, ur 1.008(L) 1.010 - 1.025 [facility] pH, urine 7.0 [facility] Protein, ur ql Negative Negative [facility] Glucose, ur ql Negative Negative [facility] Ketones, ur Negative Negative [facility] Bilirubin, ur Negative Negative [facility] Blood, ur Negative Negative [facility] Urobilinogen, ur <2.0 <2.0 mg/dL [facility] Nitrite, ur Negative Negative [facility] Leukocyte esterase, ur 3+(A) Negative [facility] UA reflex comment Reflex to microscopic UA will be performed. [facility] Urine 02/09/2019 3:5 3 PM P[employer]AGER AND STRAPPER 02/09/2019 4:02 PM PACKAGER AND STRAPPER Narrative [facility] - 02/09/2019 4:15 PM PACKAGER AND STRAPPER ?? Urine pH is affected by diet, medications, systemic acid-base disturbances, and renal tubular function. ??pH may affect urinary stone formation. ??For example, urine pH below 6.0 may help reduce the tendency for calcium phosphate stones and pH greater than 6.0 may reduce the tendency for uric acid stone formation. Source: [facility] [employer]. Last revised 03-10-2017 Taj Vargas MD LAB MICROBIOLOGY - GE NERAL ORDERABLES Final Result Performing Organization Address [facility]/State/ZIP Co de Phone Number [facility] [address] Department [place] [address] documented in this encounter Visit Diagnoses Diagnosis CVA (cerebral vascular accident) (HCC)- Primary Unspecified cerebral artery occlusion with cerebral infarction Type 2 diabetes mellitus (HCC) Dyslipidemia Other and unspecified hyperlipidemia HTN (hypertension), benign Essential hypertension, benign Mitral valve insufficiency Mitral valve disorders Pulmonary hypertension (HCC) Other chronic pulmonary heart diseases S/P mitral valve repair Other postprocedural status Tricuspid valve disorder Tricuspid valve disorders, specified as nonrheumatic documented in this encounter Administered Medications Inactive Administered Medications - up to 3 most recent administrations Medication Order MAR Action Action Date Dose Rate Site acetaminophen (TYLENOL) tablet 650 mg 650 mg, oral, Every 4 hours PRN, 1st line for pain, fever, fever greater than 38.3 C, Starting on Tue02/09/19 at 1442, Indications: Fever, PainIndications:Fever,Pain aspirin suppository 300 mg 300 mg, rectal, Daily, First dose on Tue02/09/19 at 1700, If unable to tolerate PO, Indications: cerebral ischemia, Cerebral IschemiaIndications:cerebral ischemia,Cerebral Ischemia aspirin tablet 325 mg 325 mg, oral, Daily, First dose on Tue02/09/19 at 1700, Administer suppository per rectum if unable to tolerate PO., Indications: cerebral ischemia, Cerebral IschemiaIndications:cerebral ischemia,Cerebral Ischemia Given 02/11/2019 8:33 AM P[employer]AGER AND STRAPPER 325 mg Given 02/10/2019 9:03 AM P[employer]AGER AND STRAPPER 325 mg atorvastatin (LIPITOR) tablet 40 mg 40 mg, oral, Nightly, First dose on Tue02/09/19 at 2100 Given 02/10/2019 8:53 PM P[employer]AGER AND STRAPPER 40 mg Given 02/09/2019 8:29 PM P[employer]AGER AND STRAPPER 40 mg carvedilol (COREG) tablet 6.25 mg 6.25 mg, oral, 2 times daily with meals (bkfst, dinner), First dose (after last modification) on Tue02/10/19 at 1800 Given 02/11/2019 8:34 AM P[employer]AGER AND STRAPPER 6.25 mg Given 02/10/2019 5:24 PM P[employer]AGER AND STRAPPER 6.25 mg clopidogrel (PLAVIX) tablet 75 mg 75 mg, oral, Daily, First dose on Tue02/09/19 at 1645 Given 02/11/2019 8:34 AM P[employer]AGER AND STRAPPER 75 mg Given 02/10/2019 9:03 AM P[employer]AGER AND STRAPPER 75 mg Given 02/09/2019 5:23 PM P[employer]AGER AND STRAPPER 75 mg dextrose (D10W) 10% bolus 250 mL 250 mL, intravenous, at 1,000 mL/hr, Administer over 15 Minutes, Every 15 min PRN, blood glucose less than 70 mg/dL and UNABLE to swallow/take PO glucose/juice., Starting on Tue02/09/19 at 1507, After treatment for hypoglycemia, recheck BG followed by treatment every 15 minutes until the BG is greater than 100 mg/dL. Then check BG 1 hour post treatment. If BG is less than 100 mg/dL, repeat Q15 minute BG checks and treatment. Call MD for each episode of hypoglycemia., Indications: hypoglycemic disorderIndications:hypoglycem ic disorder dextrose (GLUTOSE) 40 % gel 15 g 15 g, oral, Every 15 min PRN, low blood sugar, blood glucose less than 70 mg/dL, Starting on Tue02/09/19 at 1507, If patient is alert and able to [...] Call MD for each episode of hypoglycemia. BAG FILLER STATES GLUTOSE-15 CONTAINS GLUCOSE 40% W/W (50% W/V), Indications: hypoglycemic disorderIndications:hypoglycem ic disorder docusate sodium (COLACE) capsule 100 mg 100 mg, oral, 2 times daily PRN, constipation, Starting on Tue02/09/19 at 1513, Indications: constipationIndications:consti pation enoxaparin (LOVENOX) syringe 40 mg 40 mg, subcutaneous, Daily (for enoxaparin), First dose on Tue02/09/19 at 2100, Indications: Deep Vein Thrombosis PreventionIndications:Deep Vein Thrombosis Prevention Given 02/10/2019 8:53 PM PACKAGER AND STRAPPER 40 mg Right Lower Abdomen Given 02/09/2019 8:29 PM PACKAGER AND STRAPPER 40 mg Le ft Lower Abdomen fenofibrate nanocrystallized (TRICOR) tablet 145 mg 145 mg, oral, Daily, First dose on Tue02/09/19 at 1800 Given 02/11/2019 8:33 AM PACKAGER AND STRAPPER 145 mg Given 02/10/2019 9:03 AM PACKAGER AND STRAPPER 145 mg Given 02/09/2019 6:07 PM PACKAGER AND STRAPPER 145 mg furosemide (LASIX) tablet 60 mg 60 mg, oral, Daily, First dose on Tue02/09/19 at 1800 Given 02/11/2019 8:33 AM P[employer]AGER AND STRAPPER 60 mg Given 02/10/2019 9:03 AM P[employer] AND STRAPPER 60 mg Given 02/09/2019 6:07 PM PACKAG[employer] AND STRAPPER 60 mg glucagon injection 1 mg 1 mg, intramuscular, Administer over 1 Minutes, Every 30 min PRN, low blood sugar, blood glucose less than 70 mg/dL AND no IV access AND unable to take PO glucose/jiuce., Starting on Tue02/09/19 at 1507, After Glucagon is administered, position patient on [...] MD for each episode of hypoglycemia., Indications: HypoglycemiaIndications:Hypogl ycemia insulin lispro (HumaLOG) injection 1-3 Units 1-3 Units, subcutaneous, Nightly, First dose on Tue02/09/19 at 2100, Blood Sugar Mid Dose PM - PO patients 175 or less No insulin 176 - 200 1 unit 201 - 250 2 units 251 - 299 3 units Greater than 299 Call MD for hyperglycemia management instructions Do NOT hold for NPO status., Indications: Diabetes MellitusIndications:Diabetes Mellitus Given 02/10/2019 8:54 PM P[employer] AND STRAPPER 2 Units Right Lower Abdomen Given 02/09/2019 8:28 PM PACKAGER AND STRAPPER 3 Units Le ft Lower Abdomen insulin lispro (HumaLOG) injection 1-5 Units 1-5 Units, subcutaneous, 3 times daily with meals, First dose on Tue02/09/19 at 1800, Blood Sugar Mid Dose meal time - PO patients 139 or less No insulin 140 - 175 1 unit 176 - 200 2 unit 201 - 250 3 units 251 - 299 5 units Greater than 299 Call MD for hyperglycemia management instructions Do NOT hold for NPO status., Indications: Diabetes MellitusIndications:Diabetes Mellitus labetalol (NORMODYNE,TRANDATE) injection 10 mg 10 mg, intravenous, at 60 mL/hr, Administer over 2 Minutes, Every 4 hours PRN, high blood pressure, Systolic blood pressure greater than 200 or diastolic greater than 110, Starting on Tue02/10/19 at 0852 ondansetron (ZOFRAN) injection 4 mg 4 mg, intravenous, Administer over 2 Minutes, Every 6 hours PRN, nausea, vomiting, if not tolerating PO, Starting on Tue02/09/19 at 1442, Indications: Nausea and VomitingIndications:Nausea and Vomiting ondansetron ODT (ZOFRAN-ODT) disintegrating tablet 4 mg 4 mg, oral, Every 6 hours PRN, nausea, vomiting, Starting on Tue02/09/19 at 1442, Indications: Nausea and VomitingIndications:Nausea and Vomiting polyethylene glycol (MIRALAX) packet 17 g 17 g, oral, Daily PRN, constipation, Starting on Tue02/09/19 at 1442, Indications: constipationIndications:constipation senna (SENOKOT) tablet 1 tablet 1 tablet, oral, 2 times daily PRN, constipation, Starting on Tue02/09/19 at 1513 sodium chloride 0.9% flush 0.5-20 mL 0.5-20 mL, intra-catheter, Every 8 hours scheduled, First dose on Tue02/09/19 at 1515, Flush volume based on line type and size. Given 02/11/2019 6:23 AM P[employer] AND STRAPPER 10 mL Given 02/10/2019 10:24 PM P[employer]ER AND STRAPPER 10 mL Given 02/10/2019 3:09 PM PACKAGER AND STRAPPER 10 mL sodium chloride 0.9% flush 0.5-20 mL 0.5-20 mL, intra-catheter, As needed, line care, Starting on Tue02/09/19 at 1442, Flush volume based on line type and size. Flush before and after each use. sodium chloride 0.9% flush 0.5-20 mL 0.5-20 mL, intra-catheter, Every 8 hours scheduled, First dose on Tue02/09/19 at 1515, Flush volume based on line type and size. Given 02/10/2019 3:08 PM P[employer]AGER AND STRAPPER 10 mL Given 02/10/2019 6:11 AM PACKAGER AND STRAPPER 10 mL Given 02/09/2019 8:30 PM PACKAGER AND STRAPPER 10 mL sodium chloride 0.9% flush 0.5-20 mL 0.5-20 mL, intra-catheter, As needed, line care, Starting on Tue02/09/19 at 1442, Flush volume based on line type and size. Flush before and after each use. zolpidem (AMBIEN) tablet 5 mg 5 mg, oral, Nightly PRN, sleep, Starting on Tue02/09/19 at 1724, Indications: Sleep-Onset InsomniaIndications:Sleep-Onset Insomnia Given 02/10/2019 10:16 PM P[employer] AND STRAPPER 5 mg documented in this encounter Discontinued Medications Medication Sig Discontinue Reason Start Date End Da te amLODIPine (NORVASC) 10 mg tablet TAKE 1 TABLET BY MOUTH ONCE DAILY DIRECTED 06/01/2018 02/09/2019 furosemide (LASIX) 40 mg tablet TAKE 1 & 1/2 (ONE & ONE-HALF) TABLETS BY MOUTH ONCE DAILY. 11/17/2018 02/09/2019 carvedilol (COREG) 25 mg tablet TAKE 1 TABLET BY MOUTH TWICE DAILY 06/01/2018 02/09/2019 glimepiride (AMARYL) 2 mg tabletIndications:type 2 diabetes mellitus daily. 02/09/2019 metFORMIN (GLUCOPHAGE) 500 mg tablet daily. 02/09/2019 nitroglycerin (NITROSTAT) 0.[address] under the tongue. 06/06/2017 02/09/2019 POTASSIUM CHLORIDE ER 20 mEq CR tablet TAKE 1 TABLET BY MOUTH ONCE DAILY 07/31/2018 02/09/2019 aspirin 81 mg tablet Take by mouth daily Stop Taking at Discharge 02/11/2019 documented as of this encounter Historical Medications * This list may reflect changes made after this encounter. potassium chloride (KLOR-CON) 20 mEq packet Take 20 mEq by mouth daily 05/16/2019 metFORMIN (GLUCOPHAGE) 500 mg tablet Take 500 mg by mouth 2 (two) times a day with meals 01/07/2020 carvedilol (COREG) 25 mg tablet Take 25 mg by mouth 2 (two) times a day with meals 06/04/2019 furosemide (LASIX) 40 mg tablet Take 60 mg by mouth daily Dose=1 & 1/2 of 40 mg tablet 05/16/2019 amLODIPine (NORVASC) 10 mg tablet Take 10 mg by mouth daily 05/16/2019 added in this encounter Active and Recently Administered Medications Times are shown in P[employer]ER AND STRAPPER. Scheduled Medication Order 02/09/2019 02/10/2019 02/11/2019 aspirin suppository 300 mg(Linked Group 1) 300 mg, rectal, Daily, First dose on Tue02/09/19 at 1700, If unable to tolerate PO, Indications: cerebral ischemia, Cerebral Ischemia 175 (See Alternative - Provider: Marylu Link RN) 0903 (See Alternative - Provider: Lefty Gaviria RN) 0833 (See Alternative - Provider: Lefty Gaviria RN) aspirin tablet 325 mg(Linked Group 1) 325 mg, oral, Daily, First dose on Tue02/09/19 at 1700, Administer suppository per rectum if unable to tolerate PO., Indications: cerebral ischemia, Cerebral Ischemia 1754 (Not Given - Provider: Maryul Link RN - Reason: Patient/family refused - Comment: Pt and family refusing aspirin, Dr. Olesya manley) 0903 (Given - Provider: Lefty Gaviria RN) 0833 (Given - Provider: Lefty Gaviria RN) atorvastatin (LIPITOR) tablet 40 mg 40 mg, oral, Nightly, First dose on Tue02/09/19 at 2100 2029 (Given - Provider: Usman Natarajan RN) 2052 (Given - Provider: Allison Oates RN) carvedilol (COREG) tablet 6.25 mg 6.25 mg, oral, 2 times daily with meals (bkfst, dinner), First dose (after last modification) on Tue02/10/19 at 1800 1724 (Given - Provider: Lefty Gaviria RN) 0834 (Given - Provider: Lefty Gaviria, EDD) clopidogrel (PLAVIX) tablet 75 mg 75 mg, oral, Daily, First dose on Tue02/09/19 at 1645 1723 (Given - Provider: Marylu Link RN) 09 (Given - Provider: Lefty Gaviria RN) 0834 (Given - Provider: Lefty Gaviria, EDD) enoxaparin (LOVENOX) syringe 40 mg 40 mg, subcutaneous, Daily (for enoxaparin), First dose on Tue02/09/19 at 2100, Indications: Deep Vein Thrombosis Prevention 2028 (Given - Provider: Usman Natarajan RN) 2052 (Given - Provider: Allison Oates RN) fenofibrate nanocrystallized (TRICOR) tablet 145 mg 145 mg, oral, Daily, First dose on Tue02/09/19 at 1800 1807 (Given - Provider: Marylu Link RN) 0903 (Given - Provider: Lefty Gaviria RN) 0833 (Given - Provider: Lefty Gaviria RN) furosemide (LASIX) tablet 60 mg 60 mg, oral, Daily, First dose on Tue02/09/19 at 1800 1807 (Given - Provider: Marylu Link RN) 0903 (Given - Provider: Lefty Gaviria RN) 0833 (Given - Provider: Lefty Gaviria RN) insulin lispro (HumaLOG) injection 1-3 Units 1-3 Units, subcutaneous, Nightly, First dose on Tue02/09/19 at 2100, Blood Sugar Mid Dose PM - PO patients 175 or less No insulin 176 - 200 1 unit 201 - 250 2 units 251 - 299 3 units Greater than 299 Call MD for hyperglycemia management instructions Do NOT hold for NPO status., Indications: Diabetes Mellitus 2027 (Given - Provider: Usman Natarajan RN) 2053 (Given - Provider: Allison Oates RN) insulin lispro (HumaLOG) injection 1-5 Units 1-5 Units, subcutaneous, 3 times daily with meals, First dose on Tue02/09/19 at 1800, Blood Sugar Mid Dose meal time - PO patients 139 or less No insulin 140 - 175 1 unit 176 - 200 2 unit 201 - 250 3 units 251 - 299 5 units Greater than 299 Call MD for hyperglycemia management instructions Do NOT hold for NPO status., Indications: Diabetes Mellitus 1659 (Not Given - Provider: Marylu Link RN - Reason: Order parameters not met) 0610 (Not Given - Provider: Usman Natarajan RN - Reason: Order parameters not met - Comment: BG 125)1335 (Not Given - Provider: Lefty Gaviria RN - Reason: Order parameters not met)1749 (Not Given - Provider: Lefty Gaviria RN - Reason: Order parameters not met) 0625 (Not Given - Provider: Allison Oates RN - Reason: Order parameters not met)1200 (Due) sodium chloride 0.9% flush 0.5-20 mL 0.5-20 mL, intra-catheter, Every 8 hours scheduled, First dose on Tue02/09/19 at 1515, Flush volume based on line type and size. 1659 (Not Given - Provider: Marylu Link RN - Reason: Other)2318 (Not Given - Provider: Usman Natarajan RN - Reason: Other) 0611 (Not Given - Provider: Usman Natarajan RN - Reason: Other)1509 (Given - Provider: Lefty Gaviria RN)2224 (Given - Provider: Allison Oates RN) 0623 (Given - Provider: Allison Oates RN) sodium chloride 0.9% flush 0.5-20 mL(Linked Group 2) 0.5-20 mL, intra-catheter, Every 8 hours scheduled, First dose on Tue02/09/19 at 1515, Flush volume based on line type and size. 1659 (Not Given - Provider: Marylu Link RN - Reason: Other)2030 (Given - Provider: Usman Natarajan RN) 0611 (Given - Provider: Usman Natarajan RN)1508 (Given - Provider: Lefty Gaviria RN)2224 (Not Given - Provider: Allison Oates RN - Reason: Other - Comment: duplicate order) 0623 (Not Given - Provider: Allison Oates RN - Reason: Other - Comment: duplicate order) PRN Medication Order 02/09/2019 02/10/2019 02/11/2019 acetaminophen (TYLENOL) tablet 650 mg 650 mg, oral, Every 4 hours PRN, 1st line for pain, fever, fever greater than 38.3 C, Starting on Tue02/09/19 at 1442, Indications: Fever, Pain dextrose (D10W) 10% bolus 250 mL(Linked Group 3) 250 mL, intravenous, at 1,000 mL/hr, Administer over 15 Minutes, Every 15 min PRN, blood glucose less than 70 mg/dL and UNABLE to swallow/take PO glucose/juice., Starting on Tue02/09/19 at 1507, After treatment for hypoglycemia, recheck BG followed by treatment every 15 minutes until the BG is greater than 100 mg/dL. Then check BG 1 hour post treatment. If BG is less than 100 mg/dL, repeat Q15 minute BG checks and treatment. Call MD for each episode of hypoglycemia., Indications: hypoglycemic disorder dextrose (GLUTOSE) 40 % gel 15 g(Linked Group 3) 15 g, oral, Every 15 min PRN, low blood sugar, blood glucose less than 70 mg/dL, Starting on Tue02/09/19 at 1507, If patient is alert and able to [...] Call MD for each episode of hypoglycemia. BAG FILLER STATES GLUTOSE-15 CONTAINS GLUCOSE 40% W/W (50% W/V), Indications: hypoglycemic disorder docusate sodium (COLACE) capsule 100 mg 100 mg, oral, 2 times daily PRN, constipation, Starting on Tue02/09/19 at 1513, Indications: constipation glucagon injection 1 mg 1 mg, intramuscular, Administer over 1 Minutes, Every 30 min PRN, low blood sugar, blood glucose less than 70 mg/dL AND no IV access AND unable to take PO glucose/jiuce., Starting on Tue02/09/19 at 1507, After Glucagon is administered, position patient on [...] MD for each episode of hypoglycemia., Indications: Hypoglycemia labetalol (NORMODYNE,TRANDATE) injection 10 mg 10 mg, intravenous, at 60 mL/hr, Administer over 2 Minutes, Every 4 hours PRN, high blood pressure, Systolic blood pressure greater than 200 or diastolic greater than 110, Starting on Tue02/10/19 at 0852 ondansetron (ZOFRAN) injection 4 mg(Linked Group 4) 4 mg, intravenous, Administer over 2 Minutes, Every 6 hours PRN, nausea, vomiting, if not tolerating PO, Starting on Tue02/09/19 at 1442, Indications: Nausea and Vomiting ondansetron ODT (ZOFRAN-ODT) disintegrating tablet 4 mg(Linked Group 4) 4 mg, oral, Every 6 hours PRN, nausea, vomiting, Starting on Tue02/09/19 at 1442, Indications: Nausea and Vomiting polyethylene glycol (MIRALAX) packet 17 g 17 g, oral, Daily PRN, constipation, Starting on Tue02/09/19 at 1442, Indications: constipation senna (SENOKOT) tablet 1 tablet 1 tablet, oral, 2 times daily PRN, constipation, Starting on Tue02/09/19 at 1513 sodium chloride 0.9% flush 0.5-20 mL 0.5-20 mL, intra-catheter, As needed, line care, Starting on Tue02/09/19 at 1442, Flush volume based on line type and size. Flush before and after each use. sodium chloride 0.9% flush 0.5-20 mL(Linked Group 2) 0.5-20 mL, intra-catheter, As needed, line care, Starting on Tue02/09/19 at 1442, Flush volume based on line type and size. Flush before and after each use. zolpidem (AMBIEN) tablet 5 mg 5 mg, oral, Nightly PRN, sleep, Starting on Tue02/09/19 at 1724, Indications: Sleep-Onset Insomnia 2216 (Given - Provider: Allison Oates RN) Linked Groups Order Group 1: aspirin tablet 325 mgJump to med 325 mg, oral, Daily, First dose on Tue02/09/19 at 1700, Administer suppository per rectum if unable to tolerate PO., Indications: cerebral ischemia, Cerebral Ischemia Or aspirin suppository 300 mgJump to med 300 mg, rectal, Daily, First dose on Tue02/09/19 at 1700, If unable to tolerate PO, Indications: cerebral ischemia, Cerebral Ischemia Group 2: Saline lock IV (CANCELED) Routine, Once (Routine), On Tue02/09/19 at 1443, For 1 occurrence And sodium chloride 0.9% flush 0.5-20 mLJump to med 0.5-20 mL, intra-catheter, Every 8 hours scheduled, First dose on Tue02/09/19 at 1515, Flush volume based on line type and size. And sodium chloride 0.9% flush 0.5-20 mLJump to med 0.5-20 mL, intra-catheter, As needed, line care, Starting on Tue02/09/19 at 1442, Flush volume based on line type and size. Flush before and after each use. Group 3: dextrose (GLUTOSE) 40 % gel 15 gJump to med 15 g, oral, Every 15 min PRN, low blood sugar, blood glucose less than 70 mg/dL, Starting on Tue02/09/19 at 1507, If patient is alert and able to [...] Call MD for each episode of hypoglycemia. BAG FILLER STATES GLUTOSE-15 CONTAINS GLUCOSE 40% W/W (50% W/V), Indications: hypoglycemic disorder Or dextrose (D10W) 10% bolus 250 mLJump to med 250 mL, intravenous, at 1,000 mL/hr, Administer over 15 Minutes, Every 15 min PRN, blood glucose less than 70 mg/dL and UNABLE to swallow/take PO glucose/juice., Starting on Tue02/09/19 at 1507, After treatment for hypoglycemia, recheck BG followed by treatment every 15 minutes until the BG is greater than 100 mg/dL. Then check BG 1 hour post treatment. If BG is less than 100 mg/dL, repeat Q15 minute BG checks and treatment. Call MD for each episode of hypoglycemia., Indications: hypoglycemic disorder Group 4: ondansetron ODT (ZOFRAN-ODT) disintegrating tablet 4 mgJump to med 4 mg, oral, Every 6 hours PRN, nausea, vomiting, Starting on Tue02/09/19 at 1442, Indications: Nausea and Vomiting Or ondansetron (ZOFRAN) injection 4 mgJump to med 4 mg, intravenous, Administer over 2 Minutes, Every 6 hours PRN, nausea, vomiting, if not tolerating PO, Starting on Tue02/09/19 at 1442, Indications: Nausea and Vomiting documented in this encounter Orders Medications Ordered That Dion ht Not Have Been Administered Count Last Ordered Date First Ordered Date labetalol (NORMODYNE,TRANDAT E) injection 10 mg 1 02/10/2019 acetaminophen (TYLENOL) tablet 650 mg 1 aspirin enteric coated tablet 325 mg 1 01/28 aspirin suppository 300 mg 1 02/09/2019 carvedilol (COREG) tablet 25 mg 2 9 dextrose (D10W) 10% bolus 250 mL 1 02/10/20 19 dextrose (GLUTOSE) 40 % gel 15 g 1 02/10/20 19 docusate sodium (COLACE) capsule 100 mg 1 1 04/12/2018 enoxaparin (LOVENOX) syringe 40 mg 1 2018 glucagon injection 1 mg 1 02/09/2019 insulin lispro (HumaLOG) inj ection 1-5 Units 1 02/09/2019 ondansetron (ZOFRAN) injection 4 mg 1 02/09 ondansetron ODT (ZOFRAN-ODT) disintegrating tablet 4 mg 1 02/09/2019 polyethylene glycol (MIRALAX) packet 17 g 1 02/09/2019 senna (SENOKOT) tablet 1 tablet 1 9 sodium chloride 0.9% flush 0.5-20 mL 2 01/28 Lab Orders Without Results Count Last Ordered D ate First Ordered Date POCT GLUCOSE DEVICE 4 02/11/2019 02/10/20 19 Diet Count Last Ordered Date First Orde red Date ADULT DISCHARGE DIET 1 02/11/2019 Nursing Count Last Ordered Date First Orde red Date DISCHARGE ACTIVITY 1 02/11/2019 NURSING SWALLOW ASSESSMENT 1 02/09/2019 Consult Count Last Ordered Date First Orde red Date IP CONSULT TO NEUROLOGY 1 02/09/2019 IP CONSULT TO NUTRITION SERVICES 1 02/10/20 19 CORE MEASURES Count Last Ordered Date First Ord ered Date REASON FOR NOT INITIATING IV THROMBOLYTIC 1 02/09/2019 documented in this encounter Care Teams Manager Tax Relationship Specialty Start Date End Date Cassius Chambers MD [address] [address] PCP - General 08/12/16 12/30/20 documented as of this encounter
--- OUTSIDE RECORDS SUMMARY | 2024-02-28 15:37 | XMS_ITS | Encounter Summary ---
Author Organization [facility] Healthcare Address [address] [place] [address] Care Team Providers Care Health Inspector Name Role Phone Cassius Chambers MD Primary Care Provider Encounter Details Date Type Department Care Team (Late st Contact Info) Description 05/07/2020 Telephone [facility] Radiology [address] [place] [address] Estella Talley RN Social History Tobacco Use Types Packs/Day Years Used Date Smoking Tobacco: Never Smokeless Tobacco: Never Alcohol Use Standard Drinks/Week Comments No 0 (1 standard drink = 0.6 oz pur e alcohol) Comments No Sex and Gender Information Value Date Recorded Sex Assigned at Not on file Legal Sex Female 11:30 PM HOSPICE/HOME HEALTH AIDE Gender Identity Female 06/15/2023 1:45 PM CDT Sexual Orientation Straight 06/15/2023 1: 45 PM CDT documented as of this encounter Miscellaneous Notes * Telephone Encounter - Estella Talley RN - 05/07/2020 9:53 AM HOSPICE/HOME HEALTH AIDE [facility] Radiology. Mr. Pedrito Johnson (patient's ) called and I spoke with him this morning. His daughter (Azul Adams) is dropping off the imaging CD today at our office. I explained our processin detail with him. Once the imaging CD is received, I will send to one of our radiologist for review and determine if amenabel to T12 vert/kypho. Patient is still taking Eliquis as prescribed by Dr. Sp Madrid. She has not had recent (within the last 30 days) CBC/CMP/PT/INR/aPTT per Mr. Johnson. He understands that if approved to proceed with treatment, Dr. Chambers will need to order this to determine Eliquis hold time I will contact Mr. Johnson back after review of imaging CD and we will plan accordingly ICE/HOME HEALTH AIDE documented in this encounter Plan of Treatment Not on file documented as of this encounter Visit Diagnoses Not on filedocumented in this encounter Care Teams Health Inspector Relationship Specialty Start Date End Date Cassius Chambers MD [address] [address] PCP - General 08/12/16 12/30/20 documented as of this encounter
--- OUTSIDE RECORDS SUMMARY | 2024-02-28 15:37 | XMS_ITS | Encounter Summary ---
Author Organization [facility] Address [address] [place] [address] Care Team Providers Care Video News Editor Name Role Phone Cassius Chambers MD Primary Care Provider Reason for Visit * Reason Onset Date Comments Back Pain 05/01/2020 Encounter Details Date Type Department Care Team (Late st Contact Info) Description 05/01/2020 [facility] [address] [facility] [address] [place] [id number] Cassius Chambers MD [address] [facility] [address] [place] [address] Back Pain Social History Tobacco Use Types Packs/Day Years Used Date Smoking Tobacco: Never Smokeless Tobacco: Never Alcohol Use Standard Drinks/Week Comments No 0 (1 standard drink = 0.6 oz pur e alcohol) Comments No Sex and Gender Information Value Date Recorded Sex Assigned at Not on file Legal Sex Female 11:30 PM IMPORT SPECIALIST Gender Identity Female 06/15/2023 1:45 PM CDT Sexual Orientation Straight 06/15/2023 1: 45 PM CDT documented as of this encounter Miscellaneous Notes * Addendum Note - Hai Brantley MA - 05/01/2020 12:55 PM CSTAddended by: HAI BRANTLEY on: 05/01/2020 12:55 PM Modules accepted: Orders RT SPECIALIST * Telephone Encounter - Hai Brantley MA - 05/01/2020 12:53 PM CST Patient aware Order put in [facility] for interventional radiology RT SPECIALIST * Telephone Encounter - Cassius Chambers MD - 05/01/2020 9:43 AM CST Okay vertebroplasty-interventional r radiology RT SPECIALIST * Telephone Encounter - Hai Brantley MA - 05/01/2020 9:17 AM CST Patient calling and states wants to go ahead and get referred for Vertebroplasty RT SPECIALIST documented in this encounter Plan of Treatment Not on file documented as of this encounter Visit Diagnoses Diagnosis Compression fracture of T12 vertebra, initial encounter (HCC)- Primary documented in this encounter Care Teams Video News Editor Relationship Specialty Start Date End Date Cassius Chambers MD [id number] [place] [address] PCP - General 08/12/16 12/30/20 documented as of this encounter
--- OUTSIDE RECORDS SUMMARY | 2024-02-28 15:37 | XMS_ITS | Encounter Summary ---
Author Organization [facility] Healthcare Address [address] [place] [address] Care Team Providers Care Junior Programmer Name Role Phone Cassius Chambers MD Primary Care Provider [phone] Encounter Details Date Type Department Care Team (Latest Contact Info) Description 02/10/2019 12:10 AM HEAD GOLF COACH - 02/10/2019 11:59 PM HEAD GOLF COACH Hospital Encounter [facility] [address] [place] [address] Iraida Dacosta MD [address] [place] [address] [place] [address] Discharge Disposition: Discharge to home or self care Social History Tobacco Use Types Packs/Day Years Used Date Smoking Tobacco: Never Smokeless Tobacco: Never Alcohol Use Standard Drinks/Week Comments No 0 (1 standard drink = 0.6 oz pur e alcohol) Comments No Sex and Gender Information Value Date Recorded Sex Assigned at Not on file Legal Sex Female 11:30 PM HEAD GOLF COACH Gender Identity Female 06/15/2023 1:45 PM CDT Sexual Orientation Straight 06/15/2023 1: 45 PM CDT documented as of this encounter Medications at Time of Discharge amLODIPine (NORVASC) 10 mg tablet Take 10 mg by mouth daily 05/16/2019 aspirin 325 mg tabletIndications :cerebral ischemia,Cerebral Ischemia Take 1 tablet (325 mg total) by mouth daily 30 tablet 02/12/2019 04/22/2020 aspirin 81 mg tablet Take by mouth daily 02/11/2019 carvedilol (COREG) 25 mg tablet Take 25 mg by mouth 2 (two) times a day with meals 06/04/2019 clopidogrel (PLAVIX) 75 mg tablet Take 1 tablet (75 mg total) by mouth daily 90 tablet 3 02/12/2019 05/16/2019 fenofibrate (TRIGLIDE) 160 mg tablet Take 160 mg by mouth daily 01/04/2020 furosemide (LASIX) 40 mg tablet Take 60 mg by mouth daily Dose=1 & 1/2 of 40 mg tablet 05/16/2019 losartan (COZAAR) 100 mg tablet Take 100 mg by mouth daily 02/10/2015 02/01/2020 metFORMIN (GLUCOPHAGE) 500 mg tablet Take 500 mg by mouth 2 (two) times a day with meals 01/07/2020 potassium chloride (KLOR-CON) 20 mEq packet Take 20 mEq by mouth daily 05/16/2019 pravastatin (PRAVACHOL) 40 mg tablet Take 40 mg by mouth nightly 01/04/2020 pyridoxine (vitamin B-6) 100 mg tablet Take 100 mg by mouth daily 05/16/2019 zolpidem (AMBIEN) 10 mg tabletIndications :Sleep-Onset Insomnia Take 10 mg by mouth nightly 03/30/2020 documented as of this encounter Discharge Disposition Disposition Code Departure Means Destination Discharge to home or self care documented in this encounter Plan of Treatment Not on file documented as of this encounter Procedures Procedure Name Priority Date/Time Associated Diagnosis Comments US CAROTIDS DUPLEX BILATERAL IP Routine 02/10/2019 8:17 AM HEAD GOLF COACH documented in this encounter Results * US Carotids Duplex Bilateral (02/10/2019 8:17 AM HEAD GOLF COACH) Anatomical Region Laterality Modality Vascular Bilateral Ultrasound 02/11/2019 9:39 AM HEAD GOLF COACH Impressions 02/11/2019 9:40 AM HEAD GOLF COACH 1. There is minimal atherosclerotic plaque in [...] Mohsen Bai M.D. Narrative 02/11/2019 9:40 AM HEAD GOLF COACH EXAM: ??Duplex imaging study of the carotid [...] study. Electronically signed by: Mohsen Bai M.D. Iraida Dacosta MD IM US PROCEDURES Final Result documented in this encounter Visit Diagnoses Not on filedocumented in this encounter Care Teams Junior Programmer Relationship Specialty Start Date End Date Cassius Chambers MD [address] [facility] [address] [address] PCP - General 08/12/16 12/30/20 documented as of this encounter
--- OUTSIDE RECORDS SUMMARY | 2024-02-28 15:37 | XMS_ITS | Encounter Summary ---
Author Organization [facility] Address [address] [place] [address] Phone Care Team Providers Care Bottom Cager Name Role Phone Cassius Chambers MD Primary Care Provider [phone] Encounter Details Date Type Department Care Team (Latest Contact Info) Description 05/16/2019 10:15 AM CDT Office Visit [facility] Cardiology [address] [facility] 8th [place] [address] [place] [address] Sp Madrid MD [address] [facility] [address] [place] [address] Nonrheumatic mitral valve regurgitation (Primary Dx); HTN (hypertension), benign; Arteriosclerotic vascular disease Social History Tobacco Use Types Packs/Day Years Used Date Smoking Tobacco: Never Smokeless Tobacco: Never Alcohol Use Standard Drinks/Week Comments No 0 (1 standard drink = 0.6 oz pur e alcohol) Comments No Sex and Gender Information Value Date Recorded Sex Assigned at Not on file 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 No / Unsure 05/16/2019 10:01 AM CDT documented as of this encounter Last Filed Vital Signs Vital Sign Reading Time Taken Comments Blood Pressure 139/77 05/16/2019 10:07 AM CDT Pulse 65 05/16/2019 10:07 AM CDT Temperature - - Respiratory Rate - - Oxygen Saturation 98% 05/16/2019 10:07 AM CDT Inhaled Oxygen Concentration - - Weight 61.5 kg (135 lb 9.6 oz) 05/16/2019 10:07 AM CDT Height 154.9 cm (5' 0.98 ) 05/16/2019 10:07 AM C DT Body Mass Index 25.63 05/16/2019 10:07 AM CDT documented in this encounter Patient Instructions * Patient Instructions* Sp Madrid MD - 05/16/2019 10:15 AM CDT Eliquis 2.5 mg BID D/C plavix ASA 325 mg a day RTC 2 m documented in this encounter Ordered Prescriptions Prescription Sig Dispense Quantity Refills Last Filled Start Date End Date apixaban (ELIQUIS) 2.5 mg tablet Take 1 tablet (2.5 mg total) by mouth 2 (two) times a day 56 tablet 05/16/2019 06/11/2020 amLODIPine (NORVASC) 10 mg tablet Take 1 tablet (10 mg total) by mouth daily 90 tablet 2 05/16/2019 03/03/2020 apixaban (ELIQUIS) 2.5 mg tablet Take 1 tablet (2.5 mg total) by mouth 2 (two) times a day 60 tablet 11 05/16/2019 05/16/2019 documented in this encounter Progress Notes * Sp Madrid MD - 05/16/2019 10:15 AM CDT 05/16/2019 History of Present Illness: Yuliana Raul Johnson is a pleasant 78 y.o. female who presents with 1. Mitral [...] ??? amLODIPine (NORVASC) 10 mg tablet Take 10 mg by mouth daily ??? carvedilol (COREG) 25 mg tablet Take 25 mg by mouth 2 (two) times a day with meals ??? clopidogrel (PLAVIX) 75 mg tablet Take 1 tablet (75 mg total) by mouth daily 90 tablet 3 ??? fenofibrate (TRIGLIDE) 160 mg [...] tablet Take 10 mg by mouth nightly ??? aspirin 325 mg tablet Take 1 tablet (325 mg total) by mouth daily 30 tablet 0 No current facility-administered medications [...] is not nervous/anxious. PHYSICAL EXAMINATION Blood pressure 139/77, pulse 65, height 154.9 cm (5' 0.98 ), weight 61.5 kg (135 lb 9.6 oz), SpO2 98 %. Physical Exam Constitutional: She is oriented [...] normal. 10/09/2018 Tc 112, HDL=34 LDL =56 Obiwxf=428 HbA1C 6.2 ECG done today : Assesment/Plan: [...] and add eliquis 5 mg twice a day Follow-up in 6 months. Thank you for letting me seeing this patient. Please feel free to contact my office regarding her cardiac problems. Damien Norton MD automation qa lead Cardiology Division [facility] documented in this encounter Plan of Treatment Not on file documented as of this encounter Visit Diagnoses Diagnosis Nonrheumatic mitral valve regurgitation- Primary HTN (hypertension), benign Essential hypertension, benign Arteriosclerotic vascular disease Generalized and unspecified atherosclerosis documented in this encounter Discontinued Medications Medication Sig Discontinue Reason Start Date End Da te furosemide (LASIX) 40 mg tablet Take 60 mg by mouth daily Dose=1 & 1/2 of 40 mg tablet Other 05/16/2019 potassium chloride (KLOR-CON) 20 mEq packet Take 20 mEq by mouth daily Other 05/16/2019 pyridoxine (vitamin B-6) 100 mg tablet Take 100 mg by mouth daily Other 05/16/2019 clopidogrel (PLAVIX) 75 mg tablet Take 1 tablet (75 mg total) by mouth daily 02/12/2019 05/16/2019 amLODIPine (NORVASC) 10 mg tablet Take 10 mg by mouth daily Reorder 05/16/2019 apixaban (ELIQUIS) 2.5 mg tablet Take 1 tablet (2.5 mg total) by mouth 2 (two) times a day Reorder 05/16/2019 05/16/2019 documented as of this encounter Care Teams Bottom Cager Relationship Specialty Start Date End Date Cassius Chambers MD [address] [place] [address] PCP - General 08/12/16 12/30/20 documented as of this encounter
--- OUTSIDE RECORDS SUMMARY | 2024-02-28 15:37 | XMS_ITS | Encounter Summary ---
Author Organization [facility] Healthcare Address [address] [place] [address] Care Team Providers Care Teacher Instrumental Name Role Phone Cassius Chambers MD Primary Care Provider [phone] Encounter Details Date Type Department Care Team (Latest Contact Info) Description 05/07/2020 1:14 PM CUSTOMER RELATIONSHIP SPECIALIST - 05/07/2020 11:59 PM CUSTOMER RELATIONSHIP SPECIALIST Hospital Encounter [facility] [address] [place] [id number] Discharge Disposition: Discharge to home or self care Social History Tobacco Use Types Packs/Day Years Used Date Smoking Tobacco: Never Smokeless Tobacco: Never Alcohol Use Standard Drinks/Week Comments No 0 (1 standard drink = 0.6 oz pur e alcohol) Comments No Sex and Gender Information Value Date Recorded Sex Assigned at Not on file Legal Sex Female 11:30 PM CUSTOMER RELATIONSHIP SPECIALIST Gender Identity Female 06/15/2023 1:45 PM CDT Sexual Orientation Straight 06/15/2023 1: 45 PM CDT documented as of this encounter Medications at Time of Discharge amLODIPine (NORVASC) 10 mg tablet Take 1 tablet by mouth once daily 90 tablet 03/03/2020 apixaban (ELIQUIS) 2.5 mg tablet Take [...] of breath) 30 tablet 1 04/29/2020 1 HYDROcodone-acet aminophen (NORCO) 5-325 mg per tabletIndication s:Pain Take 1 tablet by mouth every 6 (six) hours as needed for pain 30 tablet 04/09/2020 1 losartan (COZAAR) 100 mg tabletIndication s:Type [...] Procedure Name Priority Date/Time Associated Diagnosis Comments NEURO CT MR OUTSIDE REFERENCE Routine 05/07/2020 1:14 PM CUSTOMER RELATIONSHIP SPECIALIST Diagnosis unknown documented in this encounter Results * Neuro CT MR Outside Reference (05/07/2020 1:14 PM CUSTOMER RELATIONSHIP SPECIALIST) Impressions RAD_PACS_[facility] - 05/07/2020 1:14 PM CUSTOMER RELATIONSHIP SPECIALIST These images are for Reference purposes only and have not been reviewed by [facility] Radiology. ??There will be no report generated by a [facility] Radiologist. Narrative RAD_PACS_[facility] - 05/07/2020 1:14 PM CUSTOMER RELATIONSHIP SPECIALIST EXAMINATION: ??Images For Reference Purposes Only us Jeyson Puga MD PhD IMG CT PROCEDURES F inal Result RAD_PACS_[facility] documented in this encounter Visit Diagnoses Not on filedocumented in this encounter Care Teams Teacher Instrumental Relationship Specialty Start Date End Date Cassius Chambers MD [address] [address] PCP - General 08/12/16 12/30/20 documented as of this encounter
--- OUTSIDE RECORDS SUMMARY | 2024-02-28 15:37 | XMS_ITS | Encounter Summary ---
Author Organization [facility] Address [address] [place] [address] Phone Care Team Providers Care Storage Administrator Name Role Phone Cassius Chambers MD Primary Care Provider [phone] Reason for Visit * Reason Onset Date Comments Med Management 04/29/2020 Lasix Encounter Details Date Type Department Care Team (Late st Contact Info) Description 04/29/2020 Telephone [facility] Cardiology [address] [facility] 8th [place] [address] [place] [address] Sp Madrid MD [address] [facility] [address] [place] [address] Med Management (Lasix) Social History Tobacco Use Types Packs/Day Years Used Date Smoking Tobacco: Never Smokeless Tobacco: Never Alcohol Use Standard Drinks/Week Comments No 0 (1 standard drink = 0.6 oz pur e alcohol) Comments No Sex and Gender Information Value Date Recorded Sex Assigned at Not on file 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 Alecia [facility] Services RepresentativeSigned 2:01 PM Julius ?? Pt would like a call back to discuss being put on a water pill. Please call Called and spoke with pt who mentioned that Dr. Madrid was going to prescribe her a water pill, but the pharmacy didn't have the script yet. Reviewed AVS instructions from recent OV with her: Instructions Return in about 6 months (around 10/29/2020). Lasix 20 mg a day for a few days then as needed only ?? Low salt diet ?? RTC 6 m Script for Lasix 20 mg sent to [facility] pharmacy for #30 per her request. ER SUPERVISOR ER SUPERVISOR * Telephone Encounter - Alecia Ratliff - 04/29/2020 2:01 PM CST Julius Pt would like a call back to discuss being put on a water pill. Please call ER SUPERVISOR documented in this encounter Plan of Treatment Not on file documented as of this encounter Visit Diagnoses Not on filedocumented in this encounter Care Teams Storage Administrator Relationship Specialty Start Date End Date Cassius Chambers MD [address] [address] PCP - General 08/12/16 12/30/20 documented as of this encounter
--- OUTSIDE RECORDS SUMMARY | 2024-02-28 15:37 | XMS_ITS | Encounter Summary ---
Author Organization [facility] Address [address] [place] [address] Care Team Providers Care Brick Off Bearer Name Role Phone Cassius Chambers MD Primary Care Provider Encounter Details Date Type Department Care Team (Late st Contact Info) Description 04/21/2020 [facility] [address] 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 Pt states she only gets relief when she takes a tablet before bed. Pt is looking for other suggestions as to what she can do for her back pain UTIVE PRODUCER PROMOS documented in this encounter Plan of Treatment Not on file documented as of this encounter Visit Diagnoses Not on filedocumented in this encounter Care Teams Brick Off Bearer Relationship Specialty Start Date End Date Cassius Chambers MD [address] [address] PCP - General 08/12/16 12/30/20 documented as of this encounter
--- OUTSIDE RECORDS SUMMARY | 2024-02-28 15:37 | XMS_ITS | Encounter Summary ---
Author Organization [facility] Healthcare Address [address] [place] [address] Care Team Providers Care Adult Family Home Program Manager Name Role Phone Cassius Chambers MD Primary Care Provider [phone] Encounter Details Date Type Department Care Team (Late st Contact Info) Description 05/02/2020 Telephone [facility] Radiology [address] [place] [address] Estella Talley RN Social History Tobacco Use Types Packs/Day Years Used Date Smoking Tobacco: Never Smokeless Tobacco: Never Alcohol Use Standard Drinks/Week Comments No 0 (1 standard drink = 0.6 oz pur e alcohol) Comments No Sex and Gender Information Value Date Recorded Sex Assigned at Not on file 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 Referral received from Dr. Chambers's office requesting T12 vertebral augmentation. No imaging available for review in Epic of spine Report in interactive digital media specialist from [facility] in [place], [place] of CT L spine 03-22-20 with mention of abnormal radiographs. Message sent to MIGUEL Navarro at Dr. Chambers's office requesting imaging be uploaded for review. In addition, the patient takes Eliquis (Stencil Maker: Dr. Sp Madrid) and will need new lab work (CBC, CMP, PT/INR, aPTT). Cr level needed to determine eliquis hold time as per protocol US ADMINISTRATOR documented in this encounter Plan of Treatment Not on file documented as of this encounter Visit Diagnoses Not on filedocumented in this encounter Care Teams Adult Family Home Program Manager Relationship Specialty Start Date End Date Cassius Chambers MD [address] [address] PCP - General 08/12/16 12/30/20 documented as of this encounter
--- OUTSIDE RECORDS SUMMARY | 2024-02-28 15:37 | XMS_ITS | Encounter Summary ---
Author Organization [facility] Address [address] [place] [address] Phone Care Team Providers Care Delivery Professional Name Role Phone Cassius Chambers MD Primary Care Provider [phone] Reason for Referral * (Routine) - Closed Specialty Diagnoses / Procedures Referred By Contac t Referred To Contact Diagnoses Irregular heartbeat Procedures ECG 12 lead Sp Madrid MD Phone: tel: fax: [facility] (All Locations) Referral ID Status Reason Start Date Expiration Date Visits Re quested Visits Authorized [id number] Closed 05/08/2018 11/17/2019 1 1 Encounter Details Date Type Department Care Team (Late st Contact Info) Description 05/08/2018 9:45 AM CDT Office Visit [facility] Cardiology [address] [facility] 8th [place] [address] [place] [address] Sp Madrid MD [address] [facility] [address] [place] [address] Irregular heartbeat (Primary Dx) Social History Tobacco Use Types Packs/Day Years Used Date Smoking Tobacco: Never Smokeless Tobacco: Never Alcohol Use Standard Drinks/Week Comments No 0 (1 standard drink = 0.6 oz pur e alcohol) Comments Unknown Sex and Gender Information Value Date Recorded Sex Assigned at Not on file 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 Gender Identity Female 06/15/2023 1:45 PM CDT Sexual Orientation Straight 06/15/2023 1: 45 PM CDT documented as of this encounter Last Filed Vital Signs Vital Sign Reading Time Taken Comments Blood Pressure 147/80 05/08/2018 9:42 AM CDT Pulse 69 05/08/2018 9:42 AM CDT Temperature - - Respiratory Rate - - Oxygen Saturation 98% 05/08/2018 9:42 AM CDT Inhaled Oxygen Concentration - - Weight 68 kg (150 lb) 05/08/2018 9:42 AM CDT Height 156.2 cm (5' 1.5 ) 05/08/2018 9:42 AM CDT Body Mass Index 27.88 05/08/2018 9:42 AM CDT documented in this encounter Patient Instructions * Patient Instructions* Sp Madrid MD - 05/08/2018 9:45 AM CDT 12 lead ECG See me in 6 month documented in this encounter Progress Notes * Sp Madrid MD - 05/08/2018 9:45 AM CDT 05/08/2018 History of Present Illness: Yuliana Johnson is [...] Refill ??? amLODIPine (NORVASC) 10 mg tablet daily. ??? aspirin 81 mg tablet daily. ??? carvedilol (COREG) 25 mg tablet take 1 tablet by mouth twice daily ??? fenofibrate (TRIGLIDE) 160 mg tablet daily. ??? furosemide (LASIX) 40 mg tablet Take 1 tablet by mouth daily ??? glimepiride (AMARYL) 2 mg tablet daily. ??? losartan (COZAAR) 100 mg tablet daily. ??? metFORMIN (GLUCOPHAGE) 500 mg tablet daily. ??? nitroglycerin (NITROSTAT) 0.[address] under the tongue. ??? potassium chloride ER (potassium chloride ER) 20 mEq CR tablet take 1 tablet daily ??? pravastatin (PRAVACHOL) 40 mg tablet daily. [...] is not nervous/anxious. PHYSICAL EXAMINATION Blood pressure 147/80, pulse 69, height 156.2 cm (5' 1.5 ), weight 68 kg (150 lb), SpO2 98 %. Physical Exam Constitutional: She [...] mood and affect. Her behavior is normal. ECG done today : Assesment/Plan: 1. Chest [...] mellitus. She is on metformin and glimepiride. Follow-up in 6 months. Thank you for letting me seeing this patient. Please feel free to contact my office regarding her cardiac problems. Damien Norton MD toe sewer Cardiology Division [facility] documented in this encounter Plan of Treatment Not on file documented as of this encounter Procedures Procedure Name Priority Date/Time Associated Diagnosis Comments ECG 12-LEAD Routine 05/08/2018 Irregular heartbeat documented in this encounter Results * ECG 12 lead (05/08/2018) us Sp Madrid MD ECG ORDERABLES Final Result documented in this encounter Visit Diagnoses Diagnosis Irregular heartbeat- Primary Unspecified cardiac dysrhythmia documented in this encounter Care Teams Delivery Professional Relationship Specialty Start Date End Date Cassius Chambers MD [address] [facility] [address] [place] [address] PCP - General 08/12/16 12/30/20 documented as of this encounter
--- OUTSIDE RECORDS SUMMARY | 2024-02-28 15:37 | XMS_ITS | Encounter Summary ---
Author Organization [facility] Address [address] [place] [address] Phone Care Team Providers Care Construction Specialist Name Role Phone Cassius Chambers MD Primary Care Provider [phone] Encounter Details Date Type Department Care Team (Latest Contact Info) Description 04/28/2020 11:45 AM VALVE TECHNICIAN Office Visit [facility] Cardiology [address] [facility] [address] [place] [address] Sp Madrid MD [address] [facility] [address] [place] [address] HTN (hypertension), benign (Primary Dx); Nonrheumatic mitral valve regurgitation Social History Tobacco Use Types Packs/Day Years Used Date Smoking Tobacco: Never Smokeless Tobacco: Never Alcohol Use Standard Drinks/Week Comments No 0 (1 standard drink = 0.6 oz pur e alcohol) Comments No Sex and Gender Information Value Date Recorded Sex Assigned at Not on file Legal Sex Female 11:30 PM VALVE TECHNICIAN Gender Identity Female 06/15/2023 1:45 PM CDT Sexual Orientation Straight 06/15/2023 1: 45 PM CDT documented as of this encounter Last Filed Vital Signs Vital Sign Reading Time Taken Comments Blood Pressure 152/74 04/28/2020 12:25 PM VALVE TECHNICIAN Pulse 70 04/28/2020 12:25 PM VALVE TECHNICIAN Temperature - - Respiratory Rate - - Oxygen Saturation 98% 04/28/2020 12:25 PM VALVE TECHNICIAN Inhaled Oxygen Concentration - - Weight 62.1 kg (137 lb) 04/28/2020 12:25 PM VALVE TECHNICIAN Height 152.4 cm (5') 04/28/2020 12:25 PM VALVE TECHNICIAN Body Mass Index 26.76 04/28/2020 12:25 PM VALVE TECHNICIAN documented in this encounter Patient Instructions * Patient Instructions* Sp Madrid MD - 04/28/2020 11:45 AM VALVE TECHNICIAN Lasix 20 mg a day for a few days then as needed only Low salt diet RTC 6 m E TECHNICIAN E TECHNICIAN E TECHNICIAN documented in this encounter Progress Notes * Sp Madrid MD - 04/28/2020 11:45 AM CST 04/28/2020 History of Present Illness: Yuliana Johnson is [...] once daily 90 tablet 0 ??? apixaban (ELIQUIS) 2.5 mg tablet Take 1 tablet (2.5 mg total) by mouth 2 (two) times a day 56 tablet 0 ??? carvediloL (COREG) 25 mg tablet Take 1 tablet by mouth twice daily 180 tablet 3 ??? fenofibrate (TRIGLIDE) 160 mg tablet Take 1 tablet by mouth once daily 90 tablet 0 ??? HYDROcodone-acetaminophen (NORCO) 5-325 mg per tablet Take 1 tablet by mouth every 6 (six) hours as needed for pain 30 tablet 0 ??? losartan (COZAAR) 100 mg tablet Take 1 tablet by mouth once daily 90 tablet 0 ??? zolpidem (AMBIEN) 10 mg tablet TAKE 1 TABLET BY MOUTH AT BEDTIME 90 tablet 0 No current facility-administered medications for this visit. PHYSICAL EXAMINATION Blood pressure 152/74, pulse 70, height 152.4 cm (5'), weight 62.1 kg (137 lb), SpO2 98 %. Physical Exam Constitutional: She is oriented to person, place, and time. She appears well- developed and well-nourished. HENT: Head: Normocephalic and atraumatic. Eyes: Pupils are equal, round, and reactive to light. Conjunctivae are normal. No Xanthelasma Neck: No JVD present. No thyromegaly present. Cardiovascular: [...] mass. There is no abdominal tenderness. Musculoskeletal: General: No tenderness or edema. Normal range of motion. Cervical back: Neck supple. Neurological: She is alert and oriented to person, place, and time. She has normal reflexes. Skin: Skin is warm and dry. No rash noted. No erythema. Psychiatric: She has a normal mood and affect. Echo 04/28/2020 SUMMARY: LA is mildly dilated. [...] normal 10/09/2018 Tc 112, HDL=34 LDL =56 [place]=282 HbA1C 6.2 ECG done today : Assesment/Plan: [...] : She have leg swelling , will start lasix 20 mg a day for a week then prn only. Low salt diet. RTc 6 . . Please feel free to contact my office regarding her cardiac problems. Damien Norton MD legal collector Cardiology Division [facility] E TECHNICIAN documented in this encounter Plan of Treatment Not on file documented as of this encounter Visit Diagnoses Diagnosis HTN (hypertension), benign- Primary Essential hypertension, benign Nonrheumatic mitral valve regurgitation documented in this encounter Care Teams Construction Specialist Relationship Specialty Start Date End Date Cassius Chambers MD [address] [address] PCP - General 08/12/16 12/30/20 documented as of this encounter
--- OUTSIDE RECORDS SUMMARY | 2024-02-28 15:38 | XMS_ITS | Encounter Summary ---
Author Organization [facility] Address [address] [place] [address] Care Team Providers Care Head Of Geography Name Role Phone Cassius Chambers MD Primary Care Provider [phone] Encounter Details Date Type Department Care Team (Late st Contact Info) Description 04/19/2018 9:27 AM MARBLE CEILING INSTALLER Anesthesia Event [facility] [address] [place] [id number] Jesus Alberto Flores MD [address] [place] [address] Ratna Long CRNA [address] [place] [address] Anesthesia Record Procedure Summary Procedure Name Responsible Anesthesiologist Anesthesia Start Time Anesthesia Stop Time TRANSESOPHAGEAL ECHO (KARLY) W DOPPLER/CF Jesus Alberto Flores MD 04/19/18 0927 04/19/18 1011 Events Date Time Event Comment 04/19/2018 0927 An Start 0931 An Start Data 0937 Start Supplemental O2 0938 An Data Art 0938 Patient Positioned Laterally 0938 An Induction The patient was reevaluated immediately before moderate or deep sedation use and before anesthesia induction. 0938 Bite Block Placed 0942 Anesthesia Ready 1003 an stop data 1011 Handoff to RN I completed my handoff [...] disposition at the time of handoff: PACU 1011 An Stop Meds Name Total propofol 70 mg propofol 125.06 mg phenylephrine 100 mcg/mL 300 mcg sodium chloride 0.9% infusion 125 mL * Agents Name O2% N2O O2 * Blood No blood administrations on file. Lines, Drains, and Airways Type Details Placement Removal Peripheral IV Placement Date: 04/01 ; Placement Time: 821; Catheter Size: 20 G; Orientation: Right; Location: Hand; Site Prep: Chlorhexidine; Technique: Anatomical landmarks; Inserted by: EDD Pirere; Insertion Attempts: 1; Patient Tolerance: Tolerated well; Removal Date: 04/19/18; Removal Time: 11304/19/18 08 by Zandra Darnell RN 04/19/18 113 by Camille Ferguson RN documented in this encounter Social History Tobacco Use Types Packs/Day Years Used Date Smoking Tobacco: Never Smokeless Tobacco: Never Alcohol Use Standard Drinks/Week Comments No 0 (1 standard drink = 0.6 oz pur e alcohol) Comments Unknown Sex and Gender Information Value Date Recorded Sex Assigned at Not on file Legal Sex Female 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 Gender Identity Female 06/15/2023 1:45 PM CDT Sexual Orientation Straight 06/15/2023 1: 45 PM CDT documented as of this encounter OR Notes * Anesthesia Postprocedure Evaluation - Jesus Alberto Flores MD - 04/19/2018 10:13 AM CST Patient: Yuliana Johnson Procedure Summary Date: 04/19/18 Room / Location: [facility] Anesthesia Start: 926 Anesthesia Stop: 1010 Procedure: TRANSESOPHAGEAL ECHO (KARLY) W DOPPLER/CF Diagnosis: Retinal artery occlusion Scheduled Providers: Jesus Alberto Flores MD Responsible Provider: Jesus Alberto Flores MD Anesthesia Type: MAC ASA Status: 3 Anesthesia Type: MAC Last vitals BP 143/66 Pulse 69 Temp 36.6 ??C (97.9 ??F) (Oral) Resp 20 SpO2 100% Anesthesia Post Evaluation Patient location during evaluation: PACU Patient participation: complete - patient participated Level of consciousness: fully awake Pain score: 0 Pain management: adequate Airway patency: adequate Evidence of recall: no Anesthetic complications: no Cardiovascular status: acceptable Respiratory status: acceptable and nasal cannula Hydration status: acceptable Pt is: normothermic Nausea/Vomiting status: none LE CEILING INSTALLER * Anesthesia Preprocedure Evaluation - Jesus Alberto Flores MD - 04/19/2018 10:12 AM CST Anesthesia Evaluation Yuliana Johnson is a 77 y.o. female * No procedures listed * HISTORY Past Medical History Neurological + Psychiatric history Patient Active Problem List Diagnosis ??? Abnormal EKG ??? Arteriosclerotic vascular disease ??? Chest pain ??? Type 2 diabetes mellitus (CMS/HCC) ??? Dyslipidemia ??? HTN (hypertension), benign ??? Mitral valve insufficiency ??? Pulmonary hypertension (CMS/HCC) ??? S/P mitral valve repair ??? Tricuspid valve disorder Past Medical History: Diagnosis Date ??? Cancer (CMS/HCC) breast ??? Diabetes mellitus (CMS/HCC) ??? Hyperlipidemia ??? Hypertension Past Surgical History: Procedure Laterality Date ??? HYSTERECTOMY ??? MASTECTOMY Left ??? MITRAL VALVE REPAIR OB History No data available No Known Allergies HOME MEDICATIONS : amLODIPine (NORVASC) 10 mg tablet aspirin 81 mg tablet carvedilol (COREG) 25 mg tablet fenofibrate (TRIGLIDE) 160 mg tablet furosemide (LASIX) 40 mg tablet glimepiride (AMARYL) 2 mg tablet losartan (COZAAR) 100 mg tablet metFORMIN (GLUCOPHAGE) 500 mg tablet potassium chloride ER (potassium chloride ER) 20 mEq CR tablet pravastatin (PRAVACHOL) 40 mg tablet pyridoxine (vitamin B-6) 100 mg tablet zolpidem (AMBIEN) 10 mg tablet nitroglycerin (NITROSTAT) 0.4 mg SL tablet Current Outpatient Prescriptions: ??? amLODIPine (NORVASC) 10 mg tablet ??? aspirin 81 mg tablet ??? carvedilol (COREG) 25 mg tablet ??? fenofibrate (TRIGLIDE) 160 mg tablet ??? furosemide (LASIX) 40 mg tablet ??? glimepiride (AMARYL) 2 mg tablet ??? losartan (COZAAR) 100 mg tablet ??? metFORMIN (GLUCOPHAGE) 500 mg tablet ??? potassium chloride ER (potassium chloride ER) 20 mEq CR tablet ??? pravastatin (PRAVACHOL) 40 mg tablet ??? pyridoxine (vitamin B-6) 100 mg tablet ??? zolpidem (AMBIEN) 10 mg tablet ??? nitroglycerin (NITROSTAT) 0.4 mg SL tablet Current Facility-Administered Medications: ??? sodium chloride 0.9% flush 0.5-20 mL, 0.5-20 mL, intra-catheter, PRN ??? sodium chloride 0.9% infusion, 30 mL/hr, intravenous, Continuous, Stopped at 04/19/18 0959 Social History Smoking Status ??? Never Smoker Smokeless Tobacco ??? Never Used Alcohol Use No Drug Use No Family History Problem Relation Age of Onset ??? Hypertension Other Family history of hypertension - Relation: Grandmother (Added by TW Conv) ??? Hypertension Maternal Grandfather Family history of hypertension - Relation: Grandfather (Added by TW Conv)/Family history of hypertension - Relation: Grandfather (Added by TW Conv) ??? Hypertension Other Family history of hypertension - Relation: Grandmother (Added by TW Conv) PAT Physical Exam Vitals: 04/19/18 0819 04/19/18 1005 BP: 168/79 143/66 Pulse: 69 69 Resp: 28 20 Temp: 36.5 ??C (97.7 ??F) 36.6 ??C (97.9 ??F) SpO2: 100% PT: No results found for requested labs within last 720 hours. INR: No results found for requested labs within last 720 hours. APTT: No results found for requested labs within last 720 hours. Hgb A1C: No results found for requested labs within last 720 hours. CBC RBC: 04/11/2018: 4.55 M/cumm RDW: No results found for requested labs within last 720 hours. MCHC: 04/11/2018: 32.1 g/dL* MCH: 04/11/2018: 28.4 pg MCV: 04/11/2018: 88.4 fL Hct: 04/11/2018: 40.2 % Hgb: 04/11/2018: 12.9 g/dL WBC: 04/11/2018: 6.6 K/cumm MPV: 04/11/2018: 11.8 fL Platelets: 04/11/2018: 227 K/cumm RDW CV: 04/11/2018: 14.2 % RDW Sd: 04/11/2018: 45.2 fL BMP Glucose: 04/19/2018: 134 mg/dL Calcium: 04/11/2018: 9.5 mg/dL Sodium: 04/11/2018: 143 mmol/L Potassium: 04/11/2018: 4.9 mmol/L CO2: 04/11/2018: 27 mmol/L Chloride: 04/11/2018: 112 mmol/L* BUN: 04/11/2018: 13 mg/dL Creatinine: 04/11/2018: 0.97 mg/dL STOP-Bang Total Score: 2 DOS Physical Exam Medical history, medications, and allergies reviewed. Attestation: With today's edits, I endorse the the findings of the H&P dated: 04/19/2018. Airway Exam: Mallampati: II Cervical ROM: FROM TM distance: 3 Jaw ROM: full Cardiovascular Exam: Rate: regular Rhythm: regular Pulmonary Exam: LCTA EENT Exam: trachea midline Dental Exam: Appears intact Skin Exam: Skin is warm. Capillary refill is < 3 seconds. Abdominal Exam: Abdomen is soft. Anterior Fontanelles: Fontanelles are flat. Current state: Patient's current state is cooperative. Lines/Drains/Tubes/Devices Lines in situ: Respiratory devices: Neuro devices: Anesthesia Plan ASA 3 My patient is approved for the Anesthesia Controlled Medication protocol when under care of a SPECIAL PROCEDURES TECHNOLOGIST Planned anesthesia: MAC Postoperative Plan: No plan for postoperative opioid use. No postoperative mechanical ventilation intended. Patient's planned disposition post procedure is Outpatient. Informed Consent: Discussed plan with SPECIAL PROCEDURES TECHNOLOGIST. Anesthesia plan and risks discussed with patient. Consent and Attending signature: I and/or my designee have discussed the anesthesia plan, benefits, possible alternatives, parental presence at time of induction (if indicated), and clinically relevant risks that may include dental injury, unintentional awareness, and/or other complications. The patient and/or parent/legal guardian understand, and agree to proceed. All questions answered. LE CEILING INSTALLER LE CEILING INSTALLER * Anesthesia Postprocedure Evaluation - Ratna Long CRNA - 04/19/2018 10:11 AM CST Patient: Yuliana Johnson Procedure Summary Date: 04/19/18 Room / Location: [facility] Anesthesia Start: 926 Anesthesia Stop: 1010 Procedure: TRANSESOPHAGEAL ECHO (KARLY) W DOPPLER/CF Diagnosis: Retinal artery occlusion Scheduled Providers: Jesus Alberto Flores MD Responsible Provider: Jesus Alberto Flores MD Anesthesia Type: MAC ASA Status: Not recorded Anesthesia Type: MAC Last vitals BP 143/66 Pulse 69 Temp 36.6 ??C (97.9 ??F) (Oral) Resp 20 SpO2 100% Anesthesia Post Evaluation Patient location during evaluation: PACU Patient participation: complete - patient participated Level of consciousness: fully awake Pain score: 0 Pain management: adequate Airway patency: adequate Evidence of recall: no Anesthetic complications: no Cardiovascular status: acceptable Respiratory status: acceptable Hydration status: acceptable Pt is: normothermic Nausea/Vomiting status: none Cosigned by Jesus Alberto Flores MD at 04/19/2018 10:14 AM MARBLE CEILING INSTALLER LE CEILING INSTALLER LE CEILING INSTALLER documented in this encounter Plan of Treatment Not on file documented as of this encounter Visit Diagnoses Not on filedocumented in this encounter Administered Medications Inactive Administered Medications - up to 3 most recent administrations Medication Order MAR Action Action Date Dose Rate Site phenylephrine (CATARINO-SYNEPHRINE) 0.5 mg/5 mL (100 mcg/mL) premix syringe in 0.9% sodium chloride intravenous, As needed, Starting on Tue04/19/18 at 0948, Anesthesia Intra-op Given 04/19/2018 9:57 AM MARBLE CEILING INSTALLER 100 mcg Given 04/19/2018 9:49 AM MARBLE CEILING INSTALLER 100 mcg Given 04/19/2018 9:48 AM MARBLE CEILING INSTALLER 100 mcg propofol (DIPRIVAN) IV intravenous, Continuous PRN, Starting on Tue04/19/18 at 0938, Anesthesia Intra-op Rate/Dose Change 04/19/2018 9:57 AM MARBLE CEILING INSTALLER 50 mcg/kg/min 20.01 mL/hr Rate/Dose Change 04/19/2018 9:47 AM MARBLE CEILING INSTALLER 80 mcg/kg/min 32.0 2 mL/hr Rate/Dose Change 04/19/2018 9:43 AM MARBLE CEILING INSTALLER 100 mcg/kg/min 40. 02 mL/hr propofol (DIPRIVAN) IV intravenous, As needed, Starting on Tue04/19/18 at 0940, Anesthesia Intra-op Given 04/19/2018 9:52 AM MARBLE CEILING INSTALLER 10 mg Given 04/19/2018 9:51 AM MARBLE CEILING INSTALLER 10 mg Given 04/19/2018 9:40 AM MARBLE CEILING INSTALLER 50 mg documented in this encounter Care Teams Head Of Geography Relationship Specialty Start Date End Date Cassius Chambers MD [address] [address] PCP - General 08/12/16 12/30/20 documented as of this encounter
--- OUTSIDE RECORDS SUMMARY | 2024-02-28 15:38 | XMS_ITS | Encounter Summary ---
Author Organization [facility] Address [address] [place] [address] Phone Care Team Providers Care City Councilman Name Role Phone Cassius Chambers MD Primary Care Provider [phone] Encounter Details Date Type Department Care Team (Late st Contact Info) Description 09/12/2017 10:45 AM CDT Office Visit 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 Gender Identity Female 06/15/2023 1:45 PM CDT Sexual Orientation Straight 06/15/2023 1: 45 PM CDT documented as of this encounter Last Filed Vital Signs Vital Sign Reading Time Taken Comments Blood Pressure 132/70 09/12/2017 11:00 AM CDT Pulse 68 09/12/2017 11:00 AM CDT Temperature - - Respiratory Rate - - Oxygen Saturation 97% 09/12/2017 11:00 AM CDT Inhaled Oxygen Concentration - - Weight 67.9 kg (149 lb 9.6 oz) 09/12/2017 11:00 AM CDT Height 155.4 cm (5' 1.2 ) 09/12/2017 11:00 AM CD T Body Mass Index 28.08 09/12/2017 11:00 AM CDT documented in this encounter Patient Instructions * Patient Instructions* Sp Madrid MD - 09/12/2017 10:45 AM CDT 6 month documented in this encounter Progress Notes * Sp Madrid MD - 09/12/2017 10:45 AM CDT History of Present Illness: Yuliana Johnson is a pleasant 76 y.o. female who presents with 1. Mitral valve disorder. She had a mitral valve repair with 26-mm annuloplasty Physio II ring and a posterior mitral valve leaflet, triangular resection for mitral valve insufficiency. 2. Tricuspid valve disorder. She had tricuspid valve repair with 32-mm annuloplasty ring on December 2014. 3. Benign essential hypertension. 4. Minimal coronary artery disease. 5. Moderate pulmonary hypertension. 6. Type 2 diabetes mellitus. 7. Dyslipidemia. Her chest pain has resolved. She is asymptomatic. No fever or cough. She has not had any recurrenceof these symptoms. She had a cath done on 10/28/2014 before the valvular heart surgery; she had minimal atherosclerotic coronary artery disease at that time. She is afebrile. Denies CP, SOB, PND, Orthopnea, dizziness, or lightheadedness. Current Outpatient Prescriptions Medication Sig Dispense Refill ??? amLODIPine (NORVASC) [...] visit. Review of Systems Constitution: Negative for weakness and malaise/fatigue. Eyes: Negative for blurred vision. Cardiovascular: Negative for chest pain, claudication, dyspnea on exertion, leg swelling, palpitations and syncope. Respiratory: Negative for cough. Gastrointestinal: Negative for diarrhea, nausea and vomiting. Neurological: Negative for dizziness, headaches and light-headedness. Psychiatric/Behavioral: The patient is not nervous/anxious. BP 144/77 Repeat BP 132/70 (BP Location: Right arm, Patient Position: Sitting) Pulse 68 Ht 155.4 cm (5' 1.2 ) Wt 67.9 kg (149 lb 9.6 oz) SpO2 97% BMI 28.08 kg/m?? PHYSICAL EXAMINATION Physical Exam Constitutional: She is oriented to [...] mood and affect. Her behavior is normal. Assesment/Plan: 1. Chest pain with abnormal EKG. Chest pain has resolved. She is asymptomatic. 2. Hypertension. The blood pressure is controlled on carvedilol and amlodipine. Continue low salt diet. 3. Mitral valve disorder. She has no signs of heart failure. She is on losartan 100 mg a day. She understands to use endocardial prophylaxis. 4. Dyslipidemia. She is on fenofibrate 160 mg a day and low-fat diet. Tolerates regimen well. 5. Type 2 diabetes mellitus. She is on metformin and glimepiride. Follow-up in 6 months. Thank you for letting me seeing this patient. Please feel free to contact my office regarding her cardiac problems. Damien Norton MD queen producer Cardiology Division [facility] The travibe's documentation has been prepared under my direction and personally reviewed by me in its entirety. I confirm that the note above accurately reflects all work, treatment, procedures, and medical decision making performed by Sp Madrid MD. Rufino Cutler [facility], scribing for and in the presence of Sp Madrid MD on 09/12/2017 at 11:17 AM(final editing time by [email or web address]). documented in this encounter Plan of Treatment Not on file documented as of this encounter Visit Diagnoses Diagnosis Chest pain- Primary Essential hypertension Unspecified essential hypertension Mitral valve disorder Mitral valve disorders Dyslipidemia Other and unspecified hyperlipidemia Diabetes mellitus type II Type II or unspecified type diabetes mellitus without mention of complication, not stated as uncontrolled documented in this encounter Historical Medications * This list may reflect changes made after this encounter. pyridoxine (vitamin B-6) 100 mg tablet Take 100 mg by mouth daily 05/16/2019 nitroglycerin (NITROSTAT) 0.[address] under the tongue. 06/06/2017 02/09/2019 aspirin 81 mg tablet Take by mouth daily 02/11/2019 zolpidem (AMBIEN) 10 mg tabletIndications :Sleep-Onset Insomnia Take 10 mg by mouth nightly 03/30/2020 amLODIPine (NORVASC) 10 mg tablet daily. 03/08/2016 06/01/2018 furosemide (LASIX) 40 mg tablet Take 1 tablet by mouth daily 12/30/2014 11/17/2018 losartan (COZAAR) 100 mg tablet Take 100 mg by mouth daily 02/10/2015 02/01/2020 pravastatin (PRAVACHOL) 40 mg tablet Take 40 mg by mouth nightly 01/04/2020 potassium chloride ER (potassium chloride ER) 20 mEq CR tablet take 1 tablet daily 12/30/2014 07/31/2018 fenofibrate (TRIGLIDE) 160 mg tablet Take 160 mg by mouth daily 01/04/2020 glimepiride (AMARYL) 2 mg tabletIndications :type 2 diabetes mellitus daily. 02/09/2019 metFORMIN (GLUCOPHAGE) 500 mg tablet daily. 02/09/2019 carvedilol (COREG) 25 mg tablet take 1 tablet by mouth twice daily 06/01/2018 added in this encounter Care Teams City Councilman Relationship Specialty Start Date End Date Cassius Chambers MD [id number] [place] [address] PCP - General 08/12/16 12/30/20 documented as of this encounter
--- OUTSIDE RECORDS SUMMARY | 2024-02-28 15:38 | XMS_ITS | Encounter Summary ---
Author Organization [facility] Healthcare Address [address] [place] [address] Care Team Providers Care Ad Terminal Makeup Operator Name Role Phone Lillian Avila MD Primary Care Provider [phone] Encounter Details Date Type Department Care Team (Latest Contact Info) Description 12/06/2016 7:44 AM CDT - 12/06/2016 11:59 PM CDT Hospital Encounter [facility] [phone] Lillian Avila MD [address] [facility] [address] [place], [place] [id number] Discharge Disposition: Discharge to home or self care Social History Tobacco Use Types Packs/Day Years Used Date Smoking Tobacco: Never Comments Unknown Sex and Gender Information Value Date Recorded Sex Assigned at Not on file 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 03/08/2016 06/01/2018 furosemide (LASIX) 40 mg tablet Take 1 tablet by mouth daily 12/30/2014 11/17/2018 losartan (COZAAR) 100 mg tablet Take 100 mg by mouth daily 02/10/2015 02/01/2020 potassium chloride ER (potassium chloride ER) 20 mEq CR tablet take 1 tablet daily 12/30/2014 07/31/2018 documented as of this encounter Discharge Disposition Disposition Code Departure Means Destination Discharge to home or self care documented in this encounter Plan of Treatment Not on file documented as of this encounter Procedures Procedure Name Priority Date/Time Associated Diagnosis Comments MAMMOGRAPHY, TOMOGRAPHY, UNILATERAL Routine 12/06/2016 1:29 PM CDT documented in this encounter Results * MAMMOGRAPHY, TOMOGRAPHY, UNILATERAL (12/06/2016 1:29 PM CDT) Anatomical Region Laterality Modality Mammography 12/06/2016 1:29 PM CDT Narrative 12/09/2016 7:38 PM CDT MARY RING M.D. FINAL REPORT ACC# ??Date Time ??Exam [id number] Dec 06, 2016 08:29:00 [facility] [id number] Mast Scr unilat w/EDITH R ?? Technologist(s): Abimbola Handley; ; EXAMINATION: ??Mammogram Technique: Right Breast Digital Breast Tomosynthesis, Unilateral C-view 2D Screening mammogram. ??Views obtained: ??right craniocaudal and right mediolateral oblique. ??Computer Aided Detection was performed. Mammogram Findings: The present examination has been compared to prior imaging studies performed at [facility] on 05/14/2013, 05/08/2014 and 10/27/2015. There are scattered areas of fibroglandular density. There is no suspicious abnormality in the right breast. Patient status post contralateral mastectomy for personal history of breast cancer. IMPRESSION: ??Annual screening mammography is recommended. OVERALL FINAL ASSESSMENT: BI-RADS CATEGORY 1: ??Negative. Requested By: Lillian Avila ??Bryan ? Dictated By: ?? MARY RING M.D. ??on Dec 09 2016 ??2:38P This document has been electronically signed by: MARY RING M.D. on Dec 09 2016 ??2:38P [id number] RING M.D. FINAL REPORT Attending: ??MARGARITA, ??LILLIAN Requesting: ??Margarita, ??Lillian Requesting Fax: ?? Attending Fax: ?? Attending ID: ??[id number] Requesting ID: ??[id number] Report To 1 ID: ??[id number] ? Report To 1 Name: ??, ?? Report To 1 FAX: ?? NextGen Order #: ?? Procedure Note Miscellaneous, Not In File - 12/09/2016 MARY RING M.D. FINAL REPORT ACC# Date Time Exam [id number] Dec 06, 2016 08:29:00 [facility] [id number] Mast Scr unilat w/EDITH R Technologist(s): Abimbola Handley; ; EXAMINATION: Mammogram Technique: Right Breast Digital Breast Tomosynthesis, Unilateral C-view 2DScreening mammogram. Views obtained: right craniocaudal and right mediolateral oblique. Computer Aided Detection was performed. Mammogram Findings: The present examination has been compared to prior imaging studies performed at [facility] on 05/14/2013, 05/08/2014 and 10/27/2015. There are scattered areas of fibroglandular density. There is no suspicious abnormality in the right breast. Patient status post contralateral mastectomy for personal history of breast cancer. IMPRESSION: Annual screening mammography is recommended. OVERALL FINAL ASSESSMENT: BI-RADS CATEGORY 1: Negative. Requested By: Lillian Avila M.D. Dictated By: MARY RING M.D. on Dec 09 2016 2:38P This document has been electronically signed by: MARY RING M.D. on Dec 09 2016 2:38P [id number] RING M.D. FINAL REPORT Attending: LILLIAN AVILA Requesting: Lillian Avila Requesting Fax: Attending Fax: Attending ID: [id number] Requesting ID: [id number] Report To 1 ID: [id number] Report To 1 Name: , Report To 1 FAX: NextGen Order #: us Lillian Avila MD IMG MAMMO PROCEDURES Final Res ult documented in this encounter Visit Diagnoses Not on filedocumented in this encounter Care Teams Ad Terminal Makeup Operator Relationship Specialty Start Date End Date Lillian Avila MD [address] [address] PCP - General 08/12/16 12/30/20 documented as of this encounter
--- OUTSIDE RECORDS SUMMARY | 2024-02-28 15:38 | XMS_ITS | Encounter Summary ---
Author Organization [facility] Address [address] [place] [address] Phone Care Team Providers Care Roll On Worker Name Role Phone Cassius Chambers MD Primary Care Provider [phone] Reason for Visit * Reason Onset Date Comments Test Results 10/03/2017 Lipid Flowsheet Encounter Details Date Type Department Care Team (Late st Contact Info) Description 10/03/2017 Documentation [facility] Cardiology [address] [facility] [address] [place] [address] Sp Madrid MD [address] [facility] [address] [place] [address] Test Results (Lipid Flowsheet) Social History Tobacco Use Types Packs/Day Years Used Date Smoking Tobacco: Never Smokeless Tobacco: Never Comments Unknown Sex and Gender Information Value Date Recorded Sex Assigned at Not on file Legal Sex Female 11:30 PM CARDIOLOGY PHYSICIAN ASSISTANT Gender Identity Female 06/15/2023 1:45 PM CDT Sexual Orientation Straight 06/15/2023 1: 45 PM CDT documented as of this encounter Progress Notes * Mendy Torres RN - 10/03/2017 11:59 PM CDT Previous Medications Tried: None listed DATE TOTAL CHOL LDL HDL TRIG AST ALT A1C CURRENT MEDICATION(S) ORDERS PATIENT COMMUNICATION 10/03/17 135 67 40 141 -- -- -- Pravastatin 40 mg QD and Fenofibrate 160 mg QD Glucose: [address] Madrid. KR LMOR with results, to continue Pravastatin 40 mg QD + Fenofibrate 160 mg QD along with a low fat diet and exercise. KR documented in this encounter Plan of Treatment Not on file documented as of this encounter Visit Diagnoses Not on filedocumented in this encounter Care Teams Roll On Worker Relationship Specialty Start Date End Date Cassius Chambers MD [address] [address] PCP - General 08/12/16 12/30/20 documented as of this encounter
--- OUTSIDE RECORDS SUMMARY | 2024-02-28 15:38 | XMS_ITS | Encounter Summary ---
Author Organization [facility] Healthcare Address [address] [place] [address] Care Team Providers Care Mass Spectrometry Manager Name Role Phone Cassius Chambers MD Primary Care Provider [phone] Encounter Details Date Type Department Care Team (Late st Contact Info) Description 04/11/2018 1:30 PM SITE PHYSICIAN Lab [facility] [address] [facility] [address] [place], [place] [id number] Sp Madrid MD [address] [facility] [address] [place] [address] Pre-operative cardiovascular examination Discharge Disposition: Discharge to home or self care Social History Tobacco Use Types Packs/Day Years Used Date Smoking Tobacco: Never Smokeless Tobacco: Never Comments Unknown Sex and Gender Information Value Date Recorded Sex Assigned at Not on file Legal Sex Female 11:30 PM SITE PHYSICIAN Gender Identity Female 06/15/2023 1:45 PM CDT Sexual Orientation Straight 06/15/2023 1: 45 PM CDT documented as of this encounter Discharge Disposition Disposition Code Departure Means Destination Discharge to home or self care documented in this encounter Plan of Treatment Not on file documented as of this encounter Procedures Procedure Name Priority Date/Time Associated Diagnosis Comments CBC WITHOUT DIFFERENTIAL Routine 04/11/2018 1:29 PM SITE PHYSICIAN Pre-operative cardiovascular examination BASIC METABOLIC PANEL Routine 04/11/2018 1:29 PM SITE PHYSICIAN Pre-operative cardiovascular examination documented in this encounter Results * (ABNORMAL) CBC without differential (04/11/2018 1:29 PM SITE PHYSICIAN) WBC 6.6 3.8 - 9.9 K/cumm [facility] Hgb 12.9 11.9 - 15.5 g/dL [facility] Hct 40.2 35.6 - 45.5 % [facility] Plt 227 150 - 400 K/cumm [facility] MPV 11.8 9.1 - 12.3 fL [facility] RBC 4.55 3.90 - 5.20 M/cumm [facility] MCV 88.4 81.3 - 96.4 fL [facility] MCH 28.4 27.1 - 33.3 pg [facility] MCHC 32.1(L) 32.3 - 35.7 g/dL [facility] RDW CV 14.2 11.1 - 14.9 % [facility] RDW SD 45.2 35.7 - 48.1 fL [facility] NRBC abs 0.00 0.00 - 0.01 K/cumm [facility] Blood specimen (specimen) 04/11/2018 1:29 PM SITE PHYSICIAN 04/11/2018 3:36 PM SITE PHYSICIAN Narrative [facility] - 04/11/2018 3:47 PM SITE PHYSICIAN us Sp Madrid MD LAB BLOOD ORDERABLES Final Res ult [facility] Department [place] [address] * (ABNORMAL) Basic metabolic panel (04/11/2018 1:29 PM SITE PHYSICIAN) Pathologist [facility] Sodium 143 135 - 145 mmol/L [facility] Potassium, pl 4.9 3.3 - 4.9 mmol/L [facility] Chloride 112(H) 97 - 110 mmol/L [facility] CO2 27 22 - 32 mmol/L [facility] Anion gap 4 2 - 15 mmol/L [facility] BUN 13 8 - 25 mg/dL [facility] Creatinine 0.97 0.60 - 1.10 mg/dL [facility] Glucose 95 70 - 199 mg/dL [facility] Comment: Interpretive Data Fasting glucose >/= [...] interpretive data was last revised 2017. Calcium 9.5 8.5 - 10.3 mg/dL [facility] Blood specimen (specimen) 04/11/2018 1:29 PM SITE PHYSICIAN 04/11/2018 3:35 PM SITE PHYSICIAN Narrative [facility] - 04/11/2018 3:57 PM SITE PHYSICIAN us Sp Madrid MD LAB BLOOD ORDERABLES Final Res ult [facility] Department [place] [address] documented in this encounter Visit Diagnoses Diagnosis Pre-operative cardiovascular examination documented in this encounter Care Teams Mass Spectrometry Manager Relationship Specialty Start Date End Date Cassius Chambers MD [address] [facility] [address] [place] [address] PCP - General 08/12/16 12/30/20 documented as of this encounter
--- OUTSIDE RECORDS SUMMARY | 2024-02-28 15:38 | XMS_ITS | Encounter Summary ---
Author Organization [facility] Care Team Providers Care Store Product Demonstrator Name Role Phone Unavailable Primary Care Provider Unavailabl e Encounter Details Date Type Department Care Team (Late st Contact Info) Description 03/08/2016 11:24 AM SCRAP SEPARATOR - 03/08/2016 11:59 PM SCRAP SEPARATOR Hospital Encounter [facility] Cassius Cummings MD [address] [address] Cough Social History Tobacco Use Types Packs/Day Years Used Date Smoking Tobacco: Never Assessed Comments Unknown Sex and Gender Information Value Date Recorded Sex Assigned at Not on file Legal Sex Female 11:30 PM SCRAP SEPARATOR Gender Identity Female 06/15/2023 1:45 PM CDT [...] 12/30/2014 07/31/2018 documented as of this encounter Plan of Treatment Not on file documented as of this encounter Procedures Procedure Name Priority Date/Time Associated Diagnosis Comments XR CHEST PA LATERAL 2 VIEWS Routine 03/08/2016 12:17 PM SCRAP SEPARATOR documented in this encounter Results * XR Chest Pa Lateral 2 Views (03/08/2016 12:17 PM SCRAP SEPARATOR) Anatomical Region Laterality Modality Body, Chest N/A Radiographic Karla ging 03/08/2016 12:1 7 PM SCRAP SEPARATOR Narrative 03/08/2016 12:32 PM SCRAP SEPARATOR ULISES NOLAN M.D. FINAL REPORT ACC# ??Date Time ??Exam [id number] Mar 08, 2016 12:17:00 [id number] Chest 2 views Frontl & Lat EXAMINATION: ?? 2 view chest radiolgraph IMPRESSION: ?Comparison is made with prior examination from January 27, 2015. Lungs are clear. There is no focal pneumonic consolidation common pneumothorax or pleural effusion. Sternotomy wires are midline and nondisplaced. There is a tricuspid and mitral valve annuloplasty ring is present. Requested By: Dictated By: ?? ULISES NOLAN M.D. ??on Feb ??2016 12:32P This document has been electronically signed by: ULISES NOLAN M.D. on Feb?2016 12:32P Procedure Note Provider, MD Edward - 08/06/2016 ULISES NOLAN M.D. FINAL REPORT ACC# Date Time Exam [id number] Mar 08, 2016 12:17:00 [id number] Chest 2 views Frontl & Lat EXAMINATION: 2 view chest radiolgraph IMPRESSION: Comparison is made with prior examination from January 27, 2015. Lungs are clear. There is no focal pneumonic consolidation common pneumothorax or pleural effusion. Sternotomy wires are midline and nondisplaced. There is a tricuspid and mitral valve annuloplasty ring is present. Requested By: Dictated By: ULISES NOLAN M.D. on Mar 08 2016 12:32P This document has been electronically signed by: ULISES NOLAN M.D. on Mar 08 2016 12:32P us Historical Provider MD CONKLIN XR PROCEDURES Final R esult documented in this encounter Visit Diagnoses Diagnosis Cough documented in this encounter
--- OUTSIDE RECORDS SUMMARY | 2024-02-28 15:38 | XMS_ITS | Encounter Summary ---
Author Organization [facility] Address [address] [place] [address] Phone Care Team Providers Care Tooling Mechanic Name Role Phone Cassius Chambers MD Primary Care Provider [phone] Encounter Details Date Type Department Care Team (Late st Contact Info) Description 10/03/2017 Telephone [facility] Cardiology [address] [facility] 8th [place] [address] [place] [address] Sp Madrid MD [address] [facility] [address] [place] [address] Social History Tobacco Use Types Packs/Day Years Used Date Smoking Tobacco: Never Smokeless Tobacco: Never Comments Unknown Sex and Gender Information Value Date Recorded Sex Assigned at Not on file Legal Sex Female 11:30 PM MEDICAL OFFICE REPRESENTATIVE Gender Identity Female 06/15/2023 1:45 PM CDT Sexual Orientation Straight 06/15/2023 1: 45 PM CDT documented as of this encounter Miscellaneous Notes * Telephone Encounter - Mendy Torres RN - 10/03/2017 2:32 PM CDT See Lipid flowsheet * Telephone Encounter - Mushtaq Jeronimo - 10/03/2017 2:04 PM CDT Madrid: TC = 135 HDL = 40 TRG = 141 LDL = 67 NON HDL = 95 TC HDL = 3.4 GLU - 106 documented in this encounter Plan of Treatment Not on file documented as of this encounter Visit Diagnoses Not on filedocumented in this encounter Care Teams Tooling Mechanic Relationship Specialty Start Date End Date Cassius Chambers MD [address] [address] PCP - General 08/12/16 12/30/20 documented as of this encounter
--- OUTSIDE RECORDS SUMMARY | 2024-02-28 15:38 | XMS_ITS | Encounter Summary ---
Author Organization [facility] Address [address] [place] [address] Care Team Providers Care Racehorse Trainer Name Role Phone Cassius Chambers MD Primary Care Provider [phone] Reason for Referral * Diagnostic Imaging (Routine) - Closed Specialty Diagnoses / Procedures Referred By Cata quintanilla Referred To Contact Diagnoses Encounter for screening mammogram for malignant neoplasm of breast Procedures Screening Mammogram Right W Sourav Unilateral Only Cassius Chambers MD Phone: tel: fax: [address] [phone] Referral ID Status Reason Start Date Expiration Date Visits Re quested Visits Authorized [id number] Closed 03/09/2018 09/18/2019 1 1 EM SAFETY MANAGER Reason for Visit * Diagnostic Imaging (Routine) - Closed Specialty Diagnoses / Procedures Referred By Cata quintanilla Referred To Contact Diagnoses Encounter for screening mammogram for malignant neoplasm of breast Procedures Screening Mammogram Right W Sourav Unilateral Only Cassius Chamebrs MD Phone: tel: fax: [address] [phone] Referral ID Status Reason Start Date Expiration Date Visits Re quested Visits Authorized [id number] Closed 03/09/2018 09/18/2019 1 1 Encounter Details Date Type Department Care Team (Latest Contact Info) Description 04/03/2018 7:50 AM SYSTEM SAFETY MANAGER - 04/03/2018 11:59 PM SYSTEM SAFETY MANAGER Hospital Encounter [facility] [address] [place] [address] Cassius Chambers MD [address] [facility] [address] [place] [address] Encounter for screening mammogram for malignant neoplasm of breast Discharge Disposition: Discharge to home or self care Social History Tobacco Use Types Packs/Day Years Used Date Smoking Tobacco: Never Smokeless Tobacco: Never Comments Unknown Sex and Gender Information Value Date Recorded Sex Assigned at Not on file Legal Sex Female 11:30 PM SYSTEM SAFETY MANAGER Gender Identity Female 06/15/2023 1:45 PM CDT Sexual Orientation Straight 06/15/2023 1: 45 PM CDT documented as of this encounter Medications at Time of Discharge amLODIPine (NORVASC) 10 mg tablet daily. 03/08/2016 06/01/2018 aspirin 81 mg tablet Take by mouth daily 02/11/2019 carvedilol (COREG) 25 mg tablet take 1 tablet by mouth twice daily 06/01/2018 fenofibrate (TRIGLIDE) 160 mg tablet Take 160 mg by mouth daily 01/04/2020 furosemide (LASIX) 40 mg tablet Take 1 tablet by mouth daily 12/30/2014 11/17/2018 glimepiride (AMARYL) 2 mg tabletIndications :type 2 diabetes mellitus daily. 02/09/2019 losartan (COZAAR) 100 mg tablet Take 100 mg by mouth daily 02/10/2015 02/01/2020 metFORMIN (GLUCOPHAGE) 500 mg tablet daily. 02/09/2019 nitroglycerin (NITROSTAT) 0.[address] under the tongue. 06/06/2017 02/09/2019 potassium chloride ER (potassium chloride ER) 20 mEq CR tablet take 1 tablet daily 12/30/2014 07/31/2018 pravastatin (PRAVACHOL) 40 mg tablet Take 40 [...] Procedure Name Priority Date/Time Associated Diagnosis Comments SCREENING MAMMOGRAM RIGHT W SOURAV UNILATERAL ONLY Schedule Routine, Read Routine (OP Routine) 04/03/2018 8:21 AM SYSTEM SAFETY MANAGER Encounter for screening mammogram for malignant neoplasm of breast documented in this encounter Results * Screening Mammogram Right W Sourav Unilateral Only (04/03/2018 8:21 AM SYSTEM SAFETY MANAGER) Anatomical Region Laterality Modality Breast Right Mammography Narrative 04/06/2018 9:05 AM SYSTEM SAFETY MANAGER Mammogram Technique: Right Breast Digital Breast Tomosynthesis, Unilateral C-view 2D Screening mammogram. ??Views obtained: ??right craniocaudal and right mediolateral oblique. ??Computer Aided Detection was performed. Mammogram Findings: The present examination has been compared to prior imaging studies performed at [facility] on 05/08/2014, 10/27/2015 and 12/06/2016. There are scattered areas of fibroglandular density. There is no suspicious abnormality in the right breast. Patient status post contralateral mastectomy for personal history of breast cancer. Impression: Annual screening mammography is recommended. OVERALL FINAL ASSESSMENT: BI-RADS CATEGORY 1: ??Negative. Procedure Note Navdeep Villalta MD - 04/06/2018 Mammogram Technique: Right Breast Digital Breast Tomosynthesis, Unilateral C-view 2DScreening mammogram. Views obtained: right craniocaudal and right mediolateral oblique. Computer Aided Detection was performed. Mammogram Findings: The present examination has been compared to prior imaging studies performed at [facility] on 05/08/2014, 10/27/2015 and 12/06/2016. There are scattered areas of fibroglandular density. There is no suspicious abnormality in the right breast. Patient status post contralateral mastectomy for personal history ofbreast cancer. Impression: Annual screening mammography is recommended. OVERALL FINAL ASSESSMENT: BI-RADS CATEGORY 1: Negative. Cassius Chambers MD IMG MAMMO PROCEDURES Final Res ult documented in this encounter Visit Diagnoses Diagnosis Encounter for screening mammogram for malignant neoplasm of breast documented in this encounter Care Teams Racehorse Trainer Relationship Specialty Start Date End Date Cassius Chambers MD [address] [address] PCP - General 08/12/16 12/30/20 documented as of this encounter
--- OUTSIDE RECORDS SUMMARY | 2024-02-28 15:38 | XMS_ITS | Encounter Summary ---
Author Organization [facility] Facility Care Team Providers Care Blow Off Worker Name Role Phone Unavailable Primary Care Provider Unavailabl e Encounter Details Date Type Department Care Team (Latest Contact Info) Description 01/27/2015 - 01/27/2015 11:59 PM ATTENDING ANESTHESIOLOGIST Hospital Encounter [facility] Bo Holt MD [address] [place] [address] Nonrheumatic mitral valve insufficiency; Other specified postprocedural state Social History Tobacco Use Types Packs/Day Years Used Date Smoking Tobacco: Never Assessed Comments Unknown Sex and Gender Information Value Date Recorded Sex Assigned at Not on file Legal Sex Female 11:30 PM ATTENDING ANESTHESIOLOGIST Gender Identity Female 06/15/2023 1:45 PM CDT Sexual Orientation Straight 06/15/2023 1: 45 PM CDT documented as of this encounter Medications at Time of Discharge furosemide (LASIX) 40 mg tablet Take 1 tablet by mouth daily 12/30/2014 11/17/2018 potassium chloride ER (potassium chloride ER) 20 mEq CR tablet take 1 tablet daily 12/30/2014 07/31/2018 documented as of this encounter Plan of Treatment Not on file documented as of this encounter Procedures Procedure Name Priority Date/Time Associated Diagnosis Comments PLASMA BASIC METABOLIC PANEL Routine 01/27/2015 2:03 PM ATTENDING ANESTHESIOLOGIST BLOOD B-TYPE NATRIURETIC PEPTIDE (BNP) Routine 01/27/2015 2:03 PM ATTENDING ANESTHESIOLOGIST BLOOD CELL COUNT (CBC) Routine 01/27/2015 2:03 PM ATTENDING ANESTHESIOLOGIST CHEST RADIOGRAPHY, FRONTAL (AP), LATERAL Routine 01/27/2015 11:14 AM ATTENDING ANESTHESIOLOGIST DISCHARGE LABORATORY CUMULATIVE REPORT 01/27/2015 documented in this encounter Results * (ABNORMAL) Plasma basic metabolic panel (01/27/2015 2:03 PM ATTENDING ANESTHESIOLOGIST) Sodium 141 135 - 145 mmol/L HISTORICAL RESULTS K, pl 3.8 3.3 - 4.9 mmol/L HISTORICAL RESULTS Chloride 103 97 - 110 mmol/L HISTORICAL RESULTS CO2 25 22 - 32 mmol/L HISTORICAL RESULTS A. gap 13 0 - 16 mmol/L HISTORICAL RESULTS Glucose 67(L) 70 - 199 mg/dl HISTORICAL RESULTS BUN 17 8 - 25 mg/dl HISTORICAL RESULTS Creatinine 1.06 0.60 - 1.10 mg/dl HISTORICAL RESULTS Calcium 9.6 8.6 - 10.3 mg/dl HISTORICAL RESULTS Plasma 01/27/2015 2:03 PM ATTENDING ANESTHESIOLOGIST us Bo Cuellar MD LAB BLOOD ORDERABLES Final Re sult HISTORICAL RESULTS * (ABNORMAL) Blood cell count (CBC) (01/27/2015 2:03 PM ATTENDING ANESTHESIOLOGIST) WBC 6.7 3.8 - 9.8 K/cumm HISTORICAL RESULTS RBC 4.04 3.90 - 5.00 M/cumm HISTORICAL RESULTS Hgb 11.2(L) 12.1 - 15.1 g/dl HISTORICAL RESULTS Hct 35.3(L) 36.1 - 44.3 % HISTORICAL RESULTS MCV 87.5 80.0 - 97.6 fl HISTORICAL RESULTS MCH 27.8 26.7 - 33.7 pg HISTORICAL RESULTS MCHC 31.7(L) 32.7 - 35.5 g/dl HISTORICAL RESULTS Rdw 13.2 11.8 - 14.6 % HISTORICAL RESULTS Platelets 288 140 - 440 K/cumm HISTORICAL RESULTS MPV 10.2 6.8 - 10.4 fl HISTORICAL RESULTS Neutrophils 55.9 38.7 - 74.5 % HISTORICAL RESULTS Lymphocytes 28.8 20.0 - 54.3 % HISTORICAL RESULTS Monos 6.8 4.3 - 13.5 % HISTORICAL RESULTS Eosinophils 6.5(H) 0.0 - 6.0 % HISTORICAL RESULTS Basophils 2.0 0.0 - 3.0 % HISTORICAL RESULTS Neutrophils, abs 3.7 1.8 - 6.6 K/cumm HISTORICAL RESULTS Lymphocytes, abs 1.9 1.2 - 3.3 K/cumm HISTORICAL RESULTS Monocytes, absolute 0.5 0.2 - 1.2 K/cumm HISTORICAL RESULTS Eosinophils, abs 0.4 0.0 - 0.5 K/cumm HISTORICAL RESULTS Basophils, abs 0.1 0.0 - 0.2 K/cumm HISTORICAL RESULTS Blood specimen (specimen) 01/27/2015 2:03 PM ATTENDING ANESTHESIOLOGIST Bo Cuellar MD LAB BLOOD ORDERABLES Final Re sult HISTORICAL RESULTS * (ABNORMAL) Blood B-type natriuretic peptide (BNP) (01/27/2015 2:03 PM ATTENDING ANESTHESIOLOGIST) BNP 797(H) 0 - 100 pg/ml HISTORICAL RESULTS Blood specimen (specimen) 01/27/2015 2:03 PM ATTENDING ANESTHESIOLOGIST Bo Cuellar MD LAB BLOOD ORDERABLES Final Re sult HISTORICAL RESULTS * CHEST RADIOGRAPHY, FRONTAL (AP), LATERAL (01/27/2015 11:14 AM ATTENDING ANESTHESIOLOGIST) Anatomical Region Laterality Modality N/A Radiographic Karla ging 01/27/2015 11:1 4 AM ATTENDING ANESTHESIOLOGIST Narrative 01/27/2015 3:22 PM ATTENDING ANESTHESIOLOGIST BASIM BAH M.D. FINAL REPORT ACC# ??Date Time ??Exam [id number] Jan 27, 2015 11:14:00 [id number] Chest 2 views Frontl & Lat EXAMINATION: ?? PA and Lateral Chest IMPRESSION: ?? The patient is status post a median sternotomy. Sternotomy wires are aligned. The heart and mediastinal contours are normal. the patient status post both tricuspid and mitral valve surgery. Since prior study from 1116, there has been interval clearing of small bilateral pleural effusions. There is also been clearing of bibasilar atelectasis. There is no mass or consolidation There is no pneumothorax.. Mild loss of height of a upper lumbar vertebral body is seen, unchanged. The patient is status post left mastectomy. Surgical clips seen in the soft tissues of the left chest. Requested By: Dictated By: ?? BASIM BAH M.D. ??on Jan 27 2015 ??3:22P This document has been electronically signed by: BASIM BAH M.D. on Jan 27 2015 ??3:22P Procedure Note Provider, Edward, - 06/22/2016 BASIM BAH M.D. FINAL REPORT ACC# Date Time Exam [id number] Jan 27, 2015 11:14:00 [id number] Chest 2 views Frontl & Lat EXAMINATION: PA and Lateral Chest IMPRESSION: The patient is status post a median sternotomy. Sternotomy wires are aligned. The heart and mediastinal contours are normal. the patient status post both tricuspid and mitral valve surgery. Since prior study from 1116, there has been interval clearing of small bilateral pleural effusions. There is also been clearing of bibasilar atelectasis. There is no mass or consolidation There is no pneumothorax.. Mild loss of height of a upper lumbar vertebral body is seen, unchanged. The patient is status post left mastectomy. Surgical clips seen in the soft tissues of the left chest. Requested By: Dictated By: BASIM BAH M.D. on Jan 27 2015 3:22P This document has been electronically signed by: BASIM BAH M.D. on Jan 27 2015 3:22P Historical Provider MD CONKLIN XR PROCEDURES Final R esult * DISCHARGE LABORATORY CUMULATIVE REPORT (01/27/2015) Narrative 01/27/2015 Ordered by an unspecified provider. Historical Provider LAB BLOOD ORDERABLES Miranda l Result documented in this encounter Visit Diagnoses Diagnosis Nonrheumatic mitral valve insufficiency Other specified postprocedural state documented in this encounter
--- OUTSIDE RECORDS SUMMARY | 2024-02-28 15:38 | XMS_ITS | Encounter Summary ---
Author Organization [facility] Address [address] [place] [address] Care Team Providers Care [employer] Teacher Name Role Phone Cassius Chambers MD Primary Care Provider [phone] Reason for Referral * Diagnostic Imaging (Routine) - Closed Specialty Diagnoses / Procedures Referred By Cata t Referred To Contact Diagnoses Retinal artery occlusion Procedures Transesophageal Echo W Doppler/CF TRANSESOPHAGEAL ECHO (KARLY) W DOPPLER/CF TRANSESOPHAGEAL ECHO (KARLY) W DOPPLER/CF WO CONTRAST TRANSESOPHAGEAL ECHOCARDIOGRAM (KARLY) COMPLETE W/ CONTRAST TRANSESOPHAGEAL ECHO (KARLY) W DOPPLER/CF W CONTRAST TRANSESOPHAGEAL ECHO (KARLY) W LTD DOPPLER/CF WO CONTRAST TRANSESOPHAGEAL ECHOCARDIOGRAM (KARLY) COMPLETE W/ COLOR TRANSESOPHAGEAL ECHO (KARLY) WO DOPPLER/CF W CONTRAST Yarely Kilpatrick MD Phone: tel: fax: [address] [phone] Referral ID Status Reason Start Date Expiration Date Visits Re quested Visits Authorized [id number] Closed 04/11/2018 10/21/2019 1 1 HEAD PUMPER Reason for Visit * Diagnostic Imaging (Routine) - Closed Specialty Diagnoses / Procedures Referred By Contac t Referred To Contact Diagnoses Retinal artery occlusion Procedures Transesophageal Echo W Doppler/CF TRANSESOPHAGEAL ECHO (KARLY) W DOPPLER/CF TRANSESOPHAGEAL ECHO (KARLY) W DOPPLER/CF WO CONTRAST TRANSESOPHAGEAL ECHOCARDIOGRAM (KARLY) COMPLETE W/ CONTRAST TRANSESOPHAGEAL ECHO (KARLY) W DOPPLER/CF W CONTRAST TRANSESOPHAGEAL ECHO (KARLY) W LTD DOPPLER/CF WO CONTRAST TRANSESOPHAGEAL ECHOCARDIOGRAM (KARLY) COMPLETE W/ COLOR TRANSESOPHAGEAL ECHO (KARLY) WO DOPPLER/CF W CONTRAST Yarely Kilpatrick MD Phone: tel: fax: [address] [phone] Referral ID Status Reason Start Date Expiration Date Visits Re quested Visits Authorized [id number] Closed 04/11/2018 10/21/2019 1 1 Encounter Details Date Type Department Care Team (Latest Contact Info) Description 04/19/2018 7:46 AM WELL HEAD PUMPER - 04/19/2018 11:59 PM WELL HEAD PUMPER Hospital Encounter [facility] [address] [place] [phone] Yarely Kilpatrick MD [address] [place] [address] Jesus Alberto Flores MD [address] [place] [address] Retinal artery occlusion; Arteriosclerotic vascular disease; Tricuspid valve disorder Discharge Disposition: Discharge to home or self care Social History Tobacco Use Types Packs/Day Years Used Date Smoking Tobacco: Never Smokeless Tobacco: Never Alcohol Use Standard Drinks/Week Comments No 0 (1 standard drink = 0.6 oz pur e alcohol) Comments Unknown Sex and Gender Information Value Date Recorded Sex Assigned at Not on file Legal Sex Female 11:30 PM WELL HEAD PUMPER Gender Identity Female 06/15/2023 1:45 PM CDT Sexual Orientation Straight 06/15/2023 1: 45 PM CDT documented as of this encounter Last Filed Vital Signs Vital Sign Reading Time Taken Comments Blood Pressure 138/65 04/19/2018 11:10 AM WELL HEAD PUMPER Pulse 69 04/19/2018 11:10 AM WELL HEAD PUMPER Temperature 36.6 ??C (97.9 ??F) 04/19/2018 10:[address] Respiratory Rate 22 04/19/2018 11:10 AM WELL HEAD PUMPER Oxygen Saturation 99% 04/19/2018 11:10 AM WELL HEAD PUMPER Inhaled Oxygen Concentration - - Weight 66.7 kg (147 lb 0.8 oz) 04/19/2018 8:19 A M WELL HEAD PUMPER Height 156.2 cm (5' 1.5 ) 04/19/2018 8:19 AM WELL HEAD PUMPER Body Mass Index 27.33 04/19/2018 8:19 AM WELL HEAD PUMPER documented in this encounter Discharge Instructions * Discharge Instructions* Suni Simon MD - 04/19/2018 10:01 AM WELL HEAD PUMPER PLEASE USE THIS A GUIDE AFTER YOUR PROCEDURE - After KARLY procedure, it is common for your throat to feel sore. You may use a throat lozenge or gargle with warm water to help relieve this discomfort. - Notify your physician immediately if the following occur: severe throat pain, difficulty swallowing, talking, or coughing up blood. ACTIVITY - You may resume normal activity. - DO NOT DRIVE or operate machinery for 24 hours. - Do not engage in sports, heavy work, or lifting for 24 hours. - Do not make legal or important decisions for 24 hours. DIET - Resume your normal diet. - AVOID alcoholic beverages for 24 hours. MEDICATION - Continue your home medications on your regular schedule. HEAD PUMPER documented in this encounter Medications at Time [...] metFORMIN (GLUCOPHAGE) 500 mg tablet daily. 02/09/2019 potassium chloride ER (potassium chloride ER) 20 mEq CR tablet take 1 tablet daily 12/30/2014 07/31/2018 pravastatin (PRAVACHOL) 40 mg tablet Take 40 mg by mouth nightly 01/04/2020 pyridoxine (vitamin B-6) 100 mg tablet Take 100 mg by mouth daily 05/16/2019 zolpidem (AMBIEN) 10 mg tabletIndications :Sleep-Onset Insomnia Take 10 mg by mouth nightly 03/30/2020 nitroglycerin (NITROSTAT) 0.[address] under the tongue. 06/06/2017 02/09/2019 documented as of this encounter Discharge Disposition Disposition Code Departure Means Destination Discharge to home or self care documented in this encounter Nursing Notes * Camille Ferguson RN - 04/19/2018 11:29 AM CST Pt up ambulating with steady gait. Pt able to eat and drink . Voiding without difficulty. All belongings returned to patient, AVS reviewed and signed by patient, patient discharged per MD order via wheelchair, with responsible caregiver . HEAD PUMPER documented in this encounter Miscellaneous Notes * Plan of Care - Camille Ferguson RN - 04/19/2018 10:26 AM CST Activity: ??? Risk for activity intolerance will decrease Completed Lack of Knowledge: ??? Knowledge of diagnostic tests will improve Completed ??? Knowledge of disease or condition will improve Completed ??? Knowledge of safety precautions will improve Completed ??? Knowledge of the prescribed therapeutic regimen will improve Completed Safety: ??? Ability to remain free from injury will improve Completed ??? Will remain free from falls Completed HEAD PUMPER * Pre-Procedure Note - Suni Simon MD - 04/19/2018 9:34 AM WELL HEAD PUMPER KARLY Pre-evaluation Clinical Summary: 77 yo F with prior MV and TV repair, HTN. Moderate pulm HTN, type II DM who presents for KARLY. KARLY Indication: rule out cardioembolic source of stroke Decisional capacity to consent for KARLY? yes Prior KARLY? yes - 01/07/2015 Details of prior KARLY: Prior TTE? yes - 04/11/2018 Details of prior TTE: s/p Mitral and tricuspid valve annuloplasty repair. No AR seen, No MR seen, no , no MS, normal TV, normal PV.Diastolic function: Normal. LA is mildly dilated. Normal RV cavity size. LV cavity size is normal. Normal LV wall thickness/mass. Normal Inferior vena cava. Normal aorta. 1) Anesthesia/Sedation Risks: Prior complications with sedation or anesthesia: no Loose teeth or dentures: no EF <30%, RV dysfunction, or recent shock: no ANIA or severe lung disease: no ASA: Per Anesthesia 2) Bleeding Risks: Recent bleeding or contraindications to anticoagulation: no Current anticoagulation: none Lab Results Component Value Date INR 1.48 (H) 01/07/2015 INR 2.4 (H) 01/07/2015 INR 1.06 12/30/2014 No results found for: PTT Lab Results Component Value Date LABPLAT 227 04/11/2018 LABPLAT 288 01/27/2015 LABPLAT 277 01/14/2015 3) GI Risks: Difficulty swallowing: no Prior surgery or known disease of esophagus or stomach: no Plan: Proceed with KARLY Suni Simno MD Newspaper Photographer Time: 9:34 AM Date: 04/19/2018 Cosigned by Saeid Motley MD at 04/19/2018 1:21 PM WELL HEAD PUMPER HEAD PUMPER HEAD PUMPER * Plan of Care - Zandra Darnell RN - 04/19/2018 8:21 AM WELL HEAD PUMPER Activity: ??? Risk for activity intolerance will decrease Progressing Lack of Knowledge: ??? Knowledge of diagnostic tests will improve Progressing ??? Knowledge of disease or condition will improve Progressing ??? Knowledge of safety precautions will improve Progressing ??? Knowledge of the prescribed therapeutic regimen will improve Progressing Safety: ??? Ability to remain free from injury will improve Progressing ??? Will remain free from falls Progressing HEAD PUMPER * Pre-Procedure Note - Paola Boss RN - 04/17/2018 3:28 PM CST Spoke with patient regarding planned KARLY on 04/19/18 with an arrival time of 0800. Patient aware of NPO after midnight , ok to take heart and BP meds with small sip of water prior to arrival. Denies dysphagia or recent surgery/trauma to his neck. Aware she will need a responsible adult to drive her home due to anesthesia. Given directions to [place] to utilize H&V turnaround engineer WC to [facility] HEAD PUMPER documented in this encounter Plan of Treatment Not on file documented as of this encounter Procedures Procedure Name Priority Date/Time Associated Diagnosis Comments TRANSESOPHAGEAL ECHO (KARLY) W DOPPLER/CF WO CONTRAST Routine 04/19/2018 10:01 AM WELL HEAD PUMPER Retinal artery occlusion POC BLOOD GAS AND CHEMISTRIES, ARTERIAL Routine Gen Lab 04/19/2018 8:26 AM WELL HEAD PUMPER POCT GLUCOSE DEVICE Routine Gen Lab 04/19/2018 8 :22 AM WELL HEAD PUMPER documented in this encounter Results * TRANSESOPHAGEAL ECHO (KARLY) W DOPPLER/CF WO CONTRAST (04/19/2018 10:01 AM WELL HEAD PUMPER) Anatomical Region Laterality Modality Echocardiography 04/19/2018 9:45 AM WELL HEAD PUMPER Narrative 04/20/2018 1:43 PM WELL HEAD PUMPER Patient name: Yuliana Johnson Date of test: 04/19/2018 Date of : 1940 (F) [facility] #: [id number] ?Location: [facility] Cardiac Diagnostic Lab Interpreted by: Saeid Motley MD Office Mail Clerk: Suni Simon MD RN: Reason for Test: R/O Cardiac Source of Emboli Study quality: Technically good Referring Physician: YARELY KILPATRICK MD Contrast Agent: Aortic valve: tricuspid, and is Normal, and the motion Normal Aortic root: Normal ? Aortic Arch: Normal Ascending Aorta: Normal ? Descending Aorta: Moderate Atherosclerosis Pulmonic valve: Normal ? Pulmonary Artery: Pulmonary vein: Normal Mitral valve: Normal, motion Normal, and annulus is moderately calcified Tricuspid valve: Normal, Pulmonic valve: Normal Valvular vegetation: none seen, Mass/Thrombinot seen LA Appendage: No thrombus Wall Motion Scoring (1=Normal 2=Hypo 3=Akinetic 4=Dyskin. 5=Aneurysm 0=Not visualized) Short [place]-Gastric:=1 S=1 I=1 P=1 L=1 A=1 Long [place]-Gastric:BP=1 BA=1 MP=1 MA=1 AP=1 AA=1 Chamber Dimensions: RA: Normal LA: increased, 5.3 cm RV: Normal LV: Normal LV function: Normal left ventricular systolic function. RV function: Normal Pericardium: No pericardial effusion seen Diastolic function: not assessed Atrial Septum: Normal Wall Thickness: RV: Normal LV: Normal Sedation/Tolerance: ??Sedation: KARLY performed with intravenous conscious sedation. ??Meds Admin: ?195 mg propofol ??Tolerance: Patient tolerated procedure without difficulty. Doppler/CF results Aortic Value - Regurgitation: No AR seen Mitral Valve - Regurgitation: No MR seen Aortic Value - Stenosis: no Mitral Valve - Stenosis: functional MS Aortic Value - Area: Mitral Value - Area: Aortic Value - Pressure Gradient: Mitral Value - Pressure Gradient: 3 ??mm Hg Aortic Value - Pressure Gradient - Peak: Tricuspid: normal TV PA Pressure: MV ERO: ??cm2 Regurg. Volume: ??mL/beat Regurg. Fraction: 0 % Complication: None Doppler/CF comments No AR seen, No MR seen, no , functional MS, normal TV, normal PV. ? KARLY Summary ? Suni Simon MD performed the KARLY probe placement with Saeid Motley MD present. Normal LV and RV size and systolic function. Mild LAE. S/P TV and MV annuloplasty rings with physiological performances of both rings. DOT with no thrombus and normal Doppler empyting velocities. No pericardial effusion. No PFO/ASD seen by color Doppler. Saline contrast study NEGATIVE for right to left shunt (view #[id number]). 3D Imaging: This study was supervised and interpreted by Saeid Motley MD Confirmed on ??04/20/2018 - 13:43:20 by Saeid Motley MD ?? Newspaper Photographer: Suni Simon MD By signing this report, the attending blueprint blocker certifies that he or she has personally supervised and interpreted the echocardiogram and has reviewed and or edited and agrees with the written comments contained within the report. Procedure Note Saeid Motley MD - 04/20/2018 Patient name: Elizabeth, Yuliana Date of test: 04/19/2018 Date of : 1940 (F) [facility] #: [id number] Location: [facility] Cardiac Diagnostic Lab Interpreted by: Saeid Motley MD Office Mail Clerk: Suni Simon MD RN: Reason for Test: R/O Cardiac Source of Emboli Study quality: Technically good Referring Physician: YARELY KILPATRICK MD Contrast Agent: Aortic valve: tricuspid, and is Normal, and the motion Normal Aortic root: Normal Aortic Arch: Normal Ascending Aorta: Normal Descending Aorta: Moderate Atherosclerosis Pulmonic valve: Normal Pulmonary Artery: Pulmonary vein: Normal Mitral valve: Normal, motion Normal, and annulus is moderately calcified Tricuspid valve: Normal, Pulmonic valve: Normal Valvular vegetation: none seen, Mass/Thrombinot seen LA Appendage: No thrombus Wall Motion Scoring (1=Normal 2=Hypo 3=Akinetic 4=Dyskin. 5=Aneurysm 0=Not visualized) Short [place]-Gastric:=1 S=1 I=1 P=1 L=1 A=1 Long [place]-Gastric:BP=1 BA=1 MP=1 MA=1 AP=1 AA=1 Chamber Dimensions: RA: Normal LA: increased, 5.3 cm RV: Normal LV: Normal LV function: Normal left ventricular systolic function. RV function: Normal Pericardium: No pericardial effusion seen Diastolic function: not assessed Atrial Septum: Normal Wall Thickness: RV: Normal LV: Normal Sedation/Tolerance: Sedation: KARLY performed with intravenous conscious sedation. Meds Admin: 195 mg propofol Tolerance: Patient tolerated procedure without difficulty. Doppler/CF results Aortic Value - Regurgitation: No AR seen Mitral Valve - Regurgitation: No MR seen Aortic Value - Stenosis: no Mitral Valve - Stenosis: functional MS Aortic Value - Area: Mitral Value - Area: Aortic Value - Pressure Gradient: Mitral Value - Pressure Gradient: 3 mm Hg Aortic Value - Pressure Gradient - Peak: Tricuspid: normal TV PA Pressure: MV ERO: cm2 Regurg. Volume: mL/beat Regurg. Fraction: 0 % Complication: None Doppler/CF comments No AR seen, No MR seen, no , functional MS, normal TV, normal PV. KARLY Summary Suni Simon MD performed the KARLY probe placement with Saeid Motley MD present. Normal LV and RV size and systolic function. Mild LAE. S/P TV and MV annuloplasty rings with physiological performances of both rings. DOT with no thrombus and normal Doppler empyting velocities. No pericardial effusion. No PFO/ASD seen by color Doppler. Saline contrast study NEGATIVE for right to left shunt (view #[id number]). 3D Imaging: This study was supervised and interpreted by Saeid Motley MD Confirmed on 04/20/2018 - 13:43:20 by Saeid Motley MD Newspaper Photographer: Suni Simon MD By signing this report, the attending blueprint blocker certifies that he or she has personally supervised and interpreted the echocardiogram and has reviewed and or edited and agrees with the written comments contained within the report. Yarely Kilpatrick MD CV ECHO PROCEDURES Final Resul t * POC Blood Gas and Chemistries, Arterial (04/19/2018 8:26 AM WELL HEAD PUMPER) [facility] K POC 4.0 3.3 - 4.9 mmol/L [facility] Blood specimen (specimen) 04/19/2018 8:26 AM WELL HEAD PUMPER 04/19/2018 8:26 AM WELL HEAD PUMPER Narrative [facility] - 04/19/2018 8:28 AM WELL HEAD PUMPER Yarely Kilpatrick MD LAB POCT ORDERABLES - DEVICE F inal Result Performing Organization Address [facility] de Phone Number [facility] [place] [address] * POCT glucose (04/19/2018 8:22 AM WELL HEAD PUMPER) [facility] Glucose, POC 134 70 - 199 mg/dL [facility] Blood specimen (specimen) 04/19/2018 8:22 AM WELL HEAD PUMPER 04/19/2018 8:22 AM WELL HEAD PUMPER Narrative [facility] - 04/19/2018 8:30 AM WELL HEAD PUMPER Yarely Kilpatrick MD LAB POCT ORDERABLES - DEVICE F inal Result Performing Organization Address [facility] de Phone Number [facility] [place] [address] documented in this encounter Visit Diagnoses Diagnosis Retinal artery occlusion Unspecified retinal vascular occlusion Arteriosclerotic vascular disease Generalized and unspecified atherosclerosis Tricuspid valve disorder Tricuspid valve disorders, specified as nonrheumatic documented in this encounter Administered Medications Inactive Administered Medications - up to 3 most recent administrations Medication Order MAR Action Action Date Dose Rate Site sodium chloride 0.9% infusion 30 mL/hr, intravenous, Continuous, Starting on Tue04/19/18 at 0845, Pre-Procedure (CV) New Bag 04/19/2018 8:28 AM WELL HEAD PUMPER 30 mL/hr 30 mL/hr documented in this encounter Orders Medications Ordered That Dion ht Not Have Been Administered Count Last Ordered Date First Ordered Date sodium chloride 0.9% flush 0.5-20 mL 1 04/01 documented in this encounter Care Teams [employer] Teacher Relationship Specialty Start Date End Date Cassius Chambers MD [address] [address] PCP - General 08/12/16 12/30/20 documented as of this encounter
--- OUTSIDE RECORDS SUMMARY | 2024-02-28 15:38 | XMS_ITS | Encounter Summary ---
Author Organization [facility] Facility Care Team Providers Care Concrete Layer Name Role Phone Unavailable Primary Care Provider Unavailabl e Encounter Details Date Type Department Care Team (Late st Contact Info) Description 10/27/2015 12:40 PM CDT - 10/27/2015 11:59 PM CDT Hospital Encounter [facility] Cassius Cummings MD [address] [address] Encounter for screening mammogram for malignant neoplasm of breast Social History Tobacco Use Types Packs/Day Years Used Date Smoking Tobacco: Never Assessed Comments Unknown Sex and Gender Information Value Date Recorded Sex Assigned at Not on file Legal Sex Female 11:30 PM INGREDIENT SCALER Gender Identity Female 06/15/2023 1:45 PM CDT [...] Priority Date/Time Associated Diagnosis Comments SCREENING MAMMOGRAM W SOURAV Routine 10/27/2015 1:02 PM CDT documented in this encounter Results * Screening Mammogram W Sourav (10/27/2015 1:02 PM CDT) Anatomical Region Laterality Modality Breast N/A Mammography 10/27/2015 1:02 PM CDT Narrative 10/28/2015 12:02 PM CDT KARISSA STRINGER M.D. FINAL REPORT ACC# ??Date Time ??Exam [id number] Oct 27, 2015 13:02:00 [facility] [id number] Mastectomy Screen w Sourav R ?? Technologist(s): Abimbola Handley; ; EXAMINATION: ??Mammogram Technique: Right Unilateral Full-Field Digital Screening Mammogram and Digital Breast Tomosynthesis were performed. ??Views obtained: ??right craniocaudal and right mediolateral oblique. ??Computer Aided Detection of the 2D images was performed with [employer]3 version 9.3. Mammogram Findings: The present examination has been compared to prior imaging studies performed at [facility] on 05/08/2014, 05/14/2013 and 04/19/2012. There are scattered areas of fibroglandular density. There is no suspicious abnormality in the right breast. Patient status post contralateral mastectomy for personal history of breast cancer. IMPRESSION: ??Annual screening mammography is recommended. OVERALL FINAL ASSESSMENT: BI-RADS CATEGORY 1: ??Negative. Requested By: Dictated By: ?? KARISSA STRINGER M.D. ??on Oct 28 2015 12:02P This document has been electronically signed by: KARISSA STRINGER M.D. on Oct 28 2015 12:02P [id number] Procedure Note Provider, MD Edward - 06/22/2016 KARISSA STRINGER M.D. FINAL REPORT ACC# Date Time Exam [id number] Oct 27, 2015 13:02:00 [facility] [id number] Mastectomy Screen w Sourav R Technologist(s): Abimbola Handley; ; EXAMINATION: Mammogram Technique: Right Unilateral Full-Field Digital Screening Mammogram and Digital Breast Tomosynthesis were performed. Views obtained: rightcraniocaudal and right mediolateral oblique. Computer Aided Detection of the 2Dimages was performed with [employer] version 9.3. Mammogram Findings: The present examination has been compared to prior imaging studies performed at [facility] on 05/08/2014, 05/14/2013 and 04/19/2012. There are scattered areas of fibroglandular density. There is no suspicious abnormality in the right breast. Patient status post contralateral mastectomy for personal history of breast cancer. IMPRESSION: Annual screening mammography is recommended. OVERALL FINAL ASSESSMENT: BI-RADS CATEGORY 1: Negative. Requested By: Dictated By: KARISSA STRINGER M.D. on Oct 28 2015 12:02P This document has been electronically signed by: KARISSA STRINGER M.D. on Oct 28 2015 12:02P [id number] us Historical Provider MD [facility]KLIN MAMMO PROCEDURES Miranda l Result documented in this encounter Visit Diagnoses Diagnosis Encounter for screening mammogram for malignant neoplasm of breast documented in this encounter
--- OUTSIDE RECORDS SUMMARY | 2024-02-28 15:38 | XMS_ITS | Encounter Summary ---
Author Organization [facility] Address [address] [place] [address] Phone Care Team Providers Care Timing Machine Operator Name Role Phone Cassius Chambers MD Primary Care Provider [phone] Reason for Referral * Diagnostic Imaging (Routine) - Closed Specialty Diagnoses / Procedures Referred By Cata quintanilla Referred To Contact Diagnoses Retinal artery occlusion [...] CONTRAST Yarely Kilpatrick MD Phone: tel: fax: [address] [phone] Referral ID Status Reason Start Date Expiration Date Visits Re quested Visits Authorized [id number] Closed 04/11/2018 10/21/2019 1 1 CANS OPERATOR Reason for Visit * Reason Onset Date Comments Eye Report 04/07/2018 Orders 04/07/2018 KARLY Encounter Details Date Type Department Care Team (Late st Contact Info) Description 04/07/[address] [facility] Cardiology [address] [facility] 8th [place] [address] [place] [id number] Yarely Kilpatrick MD [address] [facility] [address] [place], [place] [id number] Eye Report; Orders (KARLY) Social History Tobacco Use Types Packs/Day Years Used Date Smoking Tobacco: Never Smokeless Tobacco: Never Comments Unknown Sex and Gender Information Value Date Recorded Sex Assigned at Not on file Legal Sex Female 11:30 PM DRY CANS OPERATOR Gender Identity Female 06/15/2023 1:45 PM CDT Sexual Orientation Straight 06/15/2023 1: 45 PM CDT documented as of this encounter Miscellaneous Notes * Telephone Encounter - Jaimee Antony MA - 04/13/2018 1:50 PM DRY CANS OPERATOR Pt maximino'd CANS OPERATOR * Telephone Encounter - Jaimee Antony MA - 04/13/2018 1:03 PM DRY CANS OPERATOR LMOR asking pt to return call CANS OPERATOR * Telephone Encounter - Jaimee Antony MA - 04/11/2018 1:34 PM DRY CANS OPERATOR Tried calling pt no answer and no voicemail CANS OPERATOR * Telephone Encounter - Yarely Kilpatrick MD - 04/07/2018 8:19 PM CST She need to see me after KARLY CANS OPERATOR * Telephone Encounter - Yarely Kilpatrick MD - 04/07/2018 8:17 PM CST She need to be scheduled for KARLY. Indication recent to r/o cardiac source of emboli CANS OPERATOR * Telephone Encounter - Mendy Torres RN - 04/07/2018 12:45 PM DRY CANS OPERATOR Kilpatrick ?? Pt calling to discuss test results with you ?? Called and spoke with pt who reported that her eye report came back and she mentioned that she had signs of a stroke in both eyes. She wanted to make sure Dr. Kilpatrick was aware as he was asking about the results. Yarely Kilpatrick MD Physician Signed 04/07/2018 She need to be scheduled for KARLY. ?? Indication recent to r/o cardiac source of emboli. See me after KARLY Called Rachel from the dairy lab technician and KARLY dates given: 04/19/18 at 0800 04/24/18 at 0800 04/25/18 at 0600 Called and spoke with pt who mentioned that she has an ECHO tomorrow at [facility] and will pick a KARLY date with nursing tomorrow when she can bring her calender with her. After pt's ECHO today, she choose to have her KARLY on 04/19/18 at 0800. [facility] BMP ordered for pre-op testing. LMOR for Rachel making her aware of KARLY orders. CANS OPERATOR CANS OPERATOR CANS OPERATOR CANS OPERATOR * Telephone Encounter - Galdino Silva - 04/07/2018 9:54 AM CST Julius Pt calling to discuss test results with you CANS OPERATOR documented in this encounter Plan of Treatment Not on file documented as of this encounter Results * TRANSESOPHAGEAL ECHO (KARLY) W DOPPLER/CF WO CONTRAST (04/19/2018 10:01 AM DRY CANS OPERATOR) Anatomical Region Laterality Modality Echocardiography 04/19/2018 9:45 AM DRY CANS OPERATOR Narrative 04/20/2018 1:43 PM DRY CANS OPERATOR Patient name: Yuliana Johnson Date of test: 04/19/2018 Date of : 1940 (F) [facility] #: [id number] ?Location: [facility] Cardiac Diagnostic Lab Interpreted by: Saeid Motley MD Beef Cattle Farmer: Suni Simon MD RN: Reason for Test: [...] 2=Hypo 3=Akinetic 4=Dyskin. 5=Aneurysm 0=Not visualized) Short [place]-Gastric:=1 S=1 I=1 P=1 L=1 A=1 Long [place]-Gastric:BP=1 BA=1 MP=1 MA=1 AP=1 AA=1 Chamber Dimensions: [...] - 13:43:20 by Saeid Motley MD ?? Personal Lines Account Manager: Suni Simon MD By signing this report, the attending on site coordinator certifies that he or she has personally supervised and interpreted the echocardiogram and has reviewed and or edited and agrees with the written comments contained within the report. Procedure Note Saeid Motley MD - 04/20/2018 Patient name: Yuliana Johnson Date of test: 04/19/2018 Date of : 1940 (F) [facility] #: [id number] Location: [facility] Cardiac Diagnostic Lab Interpreted by: Saeid Motley MD Beef Cattle Farmer: Suni Simon MD RN: Reason for Test: [...] 2=Hypo 3=Akinetic 4=Dyskin. 5=Aneurysm 0=Not visualized) Short [place]-Gastric:=1 S=1 I=1 P=1 L=1 A=1 Long [place]-Gastric:BP=1 BA=1 MP=1 MA=1 AP=1 AA=1 Chamber Dimensions: [...] 04/20/2018 - 13:43:20 by Saeid Motley MD Personal Lines Account Manager: Suni Simon MD By signing this report, the attending on site coordinator certifies that he or she has personally supervised and interpreted the echocardiogram and has reviewed and or edited and agrees with the written comments contained within the report. us Yarely Kilpatrick MD CV ECHO PROCEDURES Final Resul t * (ABNORMAL) CBC without differential (04/11/2018 1:29 PM DRY CANS OPERATOR) [facility] WBC 6.6 3.8 - 9.9 K/cumm [facility] Hgb 12.9 11.9 - 15.5 g/dL [facility] Hct 40.2 35.6 - 45.5 % [facility] Plt 227 150 - 400 K/cumm [facility] MPV 11.8 9.1 - 12.3 fL [facility] RBC 4.55 3.90 - 5.20 M/cumm [facility] MCV 88.4 81.3 - 96.4 fL [facility] MCH 28.4 27.1 - 33.3 pg [facility] MCHC 32.1(L) 32.3 - 35.7 g/dL [facility] RDW CV 14.2 11.1 - 14.9 % [facility] RDW SD 45.2 35.7 - 48.1 fL [facility] NRBC abs 0.00 0.00 - 0.01 K/cumm [facility] Blood specimen (specimen) 04/11/2018 1:29 PM DRY CANS OPERATOR 04/11/2018 3:36 PM DRY CANS OPERATOR Narrative [facility] - 04/11/2018 3:47 PM DRY CANS OPERATOR Yarely Kilpatrick MD LAB BLOOD ORDERABLES Final Res ult Performing Organization Address City/[facility]/ZIP Co de Phone Number [facility] [place] [address] * (ABNORMAL) Basic metabolic panel (04/11/2018 1:29 PM DRY CANS OPERATOR) [facility] Sodium 143 135 - 145 mmol/L [facility] Potassium, pl 4.9 3.3 - 4.9 mmol/L [facility] Chloride 112(H) 97 - 110 mmol/L [facility] CO2 27 22 - 32 mmol/L [facility] Anion gap 4 2 - 15 mmol/L [facility] BUN 13 8 - 25 mg/dL [facility] Creatinine 0.97 0.60 - 1.10 mg/dL [facility] Glucose 95 70 - 199 mg/dL [facility] Comment: Interpretive Data Fasting glucose >/= [...] 2017. Calcium 9.5 8.5 - 10.3 mg/dL [facility] Blood specimen (specimen) 04/11/2018 1:29 PM DRY CANS OPERATOR 04/11/2018 3:35 PM DRY CANS OPERATOR Narrative [facility] - 04/11/2018 3:57 PM DRY CANS OPERATOR Yarely Kilpatrick MD LAB BLOOD ORDERABLES Final Res ult Performing Organization Address City/[facility]/ZIP Co de Phone Number [facility] [place] [address] documented in this encounter Visit Diagnoses Diagnosis Pre-operative cardiovascular examination- Primary Retinal artery occlusion Unspecified retinal vascular occlusion Pre-operative cardiovascular examination Retinal artery occlusion Unspecified retinal vascular occlusion Arteriosclerotic vascular disease Generalized and unspecified atherosclerosis Tricuspid valve disorder Tricuspid valve disorders, specified as nonrheumatic documented in this encounter Care Teams Timing Machine Operator Relationship Specialty Start Date End Date Cassius Chambers MD [address] [address] PCP - General 08/12/16 12/30/20 documented as of this encounter
--- OUTSIDE RECORDS SUMMARY | 2024-02-28 15:38 | XMS_ITS | Encounter Summary ---
Author Organization [facility] Address [address] [place] [address] Phone Care Team Providers Care Dredge Pipeman Name Role Phone Cassius Chambers MD Primary Care Provider [phone] Reason for Referral * (Routine) - Closed Specialty Diagnoses / Procedures Referred By Contac t Referred To Contact Diagnoses Mitral valve insufficiency, unspecified etiology Procedures Transthoracic Echo Complete W Doppler/CF Sp Kilpatrick MD Phone: tel: fax: [facility] (All Locations) Referral ID Status Reason Start Date Expiration Date Visits Re quested Visits Authorized [id number] Closed 04/03/2018 10/13/2019 1 1 NE CONTENT EDITOR Encounter Details Date Type Department Care Team (Late st Contact Info) Description 04/03/2018 10:15 AM ONLINE CONTENT EDITOR Office Visit [facility] Cardiology [address] [facility] [address] [place] [address] [place] [id number] Sp Kilpatrick MD [address] [facility] [address] [place] [address] Mitral valve insufficiency, unspecified etiology (Primary Dx) Social History Tobacco Use Types Packs/Day Years Used Date Smoking Tobacco: Never Smokeless Tobacco: Never Comments Unknown Sex and Gender Information Value Date Recorded Sex Assigned at Not on file Legal Sex Female 11:30 PM ONLINE CONTENT EDITOR Gender Identity Female 06/15/2023 1:45 PM CDT Sexual Orientation Straight 06/15/2023 1: 45 PM CDT documented as of this encounter Last Filed Vital Signs Vital Sign Reading Time Taken Comments Blood Pressure 147/73 04/03/2018 10:52 AM ONLINE CONTENT EDITOR Pulse 70 04/03/2018 10:52 AM ONLINE CONTENT EDITOR Temperature - - Respiratory Rate - - Oxygen Saturation 98% 04/03/2018 10: 52 AM ONLINE CONTENT EDITOR Inhaled Oxygen Concentration - - Weight 65.7 kg (144 lb 12.8 oz) 019 10:52 AM ONLINE CONTENT EDITOR Height 155.4 cm (5' 1.2 ) 04/03/2018 10 :52 AM ONLINE CONTENT EDITOR Body Mass Index 27.18 04/03/2018 10:52 AM ONLINE CONTENT EDITOR documented in this encounter Patient Instructions * Patient Instructions* Sp Kilpatrick MD - 04/03/2018 10:15 AM ONLINE CONTENT EDITOR Echo with doppler for MV/TV evaluation See me in 6 Month NE CONTENT EDITOR NE CONTENT EDITOR documented in this encounter Progress Notes * Sp Kilpatrick MD - 04/03/2018 10:15 AM CST 04/03/2018 History of Present Illness: Yuliana Johnson is [...] 2 diabetes mellitus. 7. Dyslipidemia. She is complaining of shortness of breath with mild activities. No syncope, fever noted. She had a [...] light-headedness. Psychiatric/Behavioral: The patient is not nervous/anxious. PHYSICAL EXAMINATION Physical Exam Constitutional: She is [...] day. She understands to use endocardial prophylaxis. Will get echo with doppler to evaluate for MV/TV . 4. Dyslipidemia. She is on fenofibrate 160 mg a day and low-fat diet. Tolerates regimen well. 5. Type 2 diabetes mellitus. She is on metformin and glimepiride. Follow-up in 6 months. Thank you for letting me seeing this patient. Please feel free to contact my office regarding her cardiac problems. Damien Norton MD logging tractor operator swamp Cardiology Division [facility] NE CONTENT EDITOR documented in this encounter Plan of Treatment Not on file documented as of this encounter Results * TRANSTHORACIC ECHO (TTE) COMPLETE W DOPPLER/CF WO CONTRAST (04/11/2018 1:03 PM ONLINE CONTENT EDITOR) Anatomical Region Laterality Modality Ultrasound 04/11/2018 12:3 0 PM ONLINE CONTENT EDITOR Narrative 04/11/2018 9:40 PM ONLINE CONTENT EDITOR Patient name: Yuliana Johnson Date of test: 04/11/2018 Type of test: TTE w/Doppler [facility] #: [id number] Date of : 1940 (F) Audiovisual Production Specialist: Liv Mccormick RD RVT Referring Physician: SP KILPATRICK MD Contrast Agent: Contrast Administered by: Supervised/Interpreted by: Sp Kilpatrick MD Diagnosis: MV Repair, TV Repair Location: [facility] Reason for test: MV Repair, TV Repair MV Structure: Normal, ?MV Motion: Normal, ?? [...] Variable ?2D Linear Normal ? Aotic Root: 2.8 cm ?<3.6 ? Ao Indexed: 1.7 cm/M2 <2.0 ? LA: ? 4.1 cm ?<3.8 ? RV: ? 3.1 cm ?<4.2 ? LV(ED): ? 3.2 cm ?<5.3 ? LV(ES): ? 2.3 cm ?<3.5 ?2D Vol. ?? Normal ?Indexed ?? Indexed Normal RA: ? 33.0 ml ? 20.1 ml/M2 ?9-33 ? LA: ? 60.0 ml ? 36.5 ml/M2 ?16-34 ? RV: ? <11.6 ? LV(ED): ? 57.0 ml ?? 46-106 ?34.7 ml/M2 ?<62 ? LV(ES): ? 20.0 ml ?? 14-42 ? 12.2 ml/M2 ?<25 ?3D Vol. ? Indexed Normal LV(ED): ?<62 ? LV(ES): ?<24 ? LV EF: 65 % ?? (Normal: >=54%) ?? LV Septum: 1.2 cm ?(Normal: <0.9 cm) Wall Motion Scoring (1=Normal 2=Hypo 3=Akinetic 4=Dyskin./Aneurysm 0=Not visualized) Parasternal Long [place]:MAS=1 BAS=1 MP=1 BP=1 Parasternal Short [place]:MAS=1 MS=1 WY=1 MP=1 ML=1 MA=1 Apical 4 Chambers:=1 MS=1 BS=1 BL=1 WY=1 AL=1 Apical 2 Chambers:AI=1 WY=1 BI=1 BA=1 MA=1 AA=1 LV Global Longitudinal Strain: -21.5% ??(Normal <-19%) RV Global Longitudinal Strain: LV Function: Normal LV Ejection Fraction, ??(EF=54-74%) RV Function: Normal Septal Motion: Normal Pericardial Effusion: none seen Atrial Septum: Normal DOPPLER/COLOR FOLOW DOPPLER RESULTS: Diastolic Function: Normal Tricuspid Valve: normal TV Pulmonic Valve: normal PV AV Regurgitation: No AR seen AV Stenosis: no AV Area: ??cm2 AV Pressure Gradient (mmHg): Mean: 0, Peak:0 MV Regurgitation: No MR seen MV Stenosis: no MS MV Area: ??cm2 MV Pressure Gradient (mmHg): Mean: 0 MV ERO: ??cm Regurg. Vol.: ??ml/beat Regurg. Frac.: ??% PA Pressure: ??mmHg DOPPLER/COLOR FOLOW DOPPLER COMMENTS: No AR seen, No MR seen, no , no MS, normal TV, normal PV. Diastolic function: Normal SUMMARY: s/p Mitral and tricuspid valve annuloplasty repair. ?? No AR seen, No MR seen, no , no MS, normal TV, normal PV.Diastolic function: Normal. LA is mildly dilated. Normal RV cavity size. LV cavity size is normal. Normal LV wall thickness/mass. Normal Inferior vena cava. Normal aorta. Confirmed on ??04/11/2018 - 21:40:58 by Sp Kilpatrick MD By signing this report, the attending latin professor certifies that he or she has personally supervised and interpreted the echocardiogram and has reviewed and or edited and agrees with the written comments contained within the report. Procedure Note Sp Kilpatrick MD - 04/11/2018 Patient name: Yuliana Johnson Date of test: 04/11/2018 Type of test: TTE w/Doppler [facility] #: [id number] Date of : 1940 (F) Audiovisual Production Specialist: Liv Mccormick [facility] RVT Referring Physician: SP KILPATRICK MD Contrast Agent: Contrast Administered by: Supervised/Interpreted by: Sp Kilpatrick MD Diagnosis: MV Repair, TV Repair Location: [facility] Reason for test: MV Repair, TV Repair MV Structure: Normal, MV Motion: Normal, Mitral Annulus: annuloplasty AV Structure: tricuspid and is Normal, AV Motion: Normal Aotic root: Normal, TM: Normal, PV: Normal Valvular Vegetations: none seen, Mass/Thrombi: none seen RA: Normal Measurements: M-Mode Normal Aotic Root: <3.8 LA: <3.8 RV: <2.8 LV(ED): <5.7 LV(ES): Variable 2D Linear Normal Aotic Root: 2.8 cm <3.6 Ao Indexed: 1.7 cm/M2 <2.0 LA: 4.1 cm <3.8 RV: 3.1 cm <4.2 LV(ED): 3.2 cm <5.3 LV(ES): 2.3 cm <3.5 2D Vol. Normal Indexed Indexed Normal RA: 33.0 ml 20.1 ml/M2 9-33 LA: 60.0 ml 36.5 ml/M2 16-34 RV: <11.6 LV(ED): 57.0 ml 46-106 34.7 ml/M2 <62 LV(ES): 20.0 ml 14-42 12.2 ml/M2 <25 3D Vol. Indexed Normal LV(ED): <62 LV(ES): <24 LV EF: 65 % (Normal: >=54%) LV Septum: 1.2 cm (Normal: <0.9 cm) Wall Motion Scoring (1=Normal 2=Hypo 3=Akinetic 4=Dyskin./Aneurysm 0=Not visualized) Parasternal [place]:MAS=1 BAS=1 MP=1 BP=1 Parasternal Short [place]:MAS=1 MS=1 WY=1 MP=1 ML=1 MA=1 Apical 4 Chambers:=1 MS=1 BS=1 BL=1 WY=1 AL=1 Apical 2 Chambers:AI=1 WY=1 BI=1 BA=1 MA=1 AA=1 LV Global Longitudinal Strain: -21.5% (Normal <-19%) RV Global Longitudinal Strain: LV Function: Normal LV Ejection Fraction, (EF=54-74%) RV Function: Normal Septal Motion: Normal Pericardial Effusion: none seen Atrial Septum: Normal DOPPLER/COLOR FOLOW DOPPLER RESULTS: Diastolic Function: Normal Tricuspid Valve: normal TV Pulmonic Valve: normal PV AV Regurgitation: No AR seen AV Stenosis: no AV Area: cm2 AV Pressure Gradient (mmHg): Mean: 0, Peak:0 MV Regurgitation: No MR seen MV Stenosis: no MS MV Area: cm2 MV Pressure Gradient (mmHg): Mean: 0 MV ERO: cm Regurg. Vol.: ml/beat Regurg. Frac.: % PA Pressure: mmHg DOPPLER/COLOR FOLOW DOPPLER COMMENTS: No AR seen, No MR seen, no , no MS, normal TV, normal PV. Diastolic function: Normal SUMMARY: s/p Mitral and tricuspid valve annuloplasty repair. No AR seen, No MR seen, no , no MS, normal TV, normal PV.Diastolic function: Normal. LA is mildly dilated. Normal RV cavity size. LV cavity size is normal. Normal LV wall thickness/mass. Normal Inferior vena cava. Normal aorta. Confirmed on 04/11/2018 - 21:40:58 by Sp Kilpatrick MD By signing this report, the attending latin professor certifies that he or she has personally supervised and interpreted the echocardiogram and has reviewed and or edited and agrees with the written comments contained within the report. Sp Kilpatrick MD CV ECHO PROCEDURES Final Resul t documented in this encounter Visit Diagnoses Diagnosis Mitral valve insufficiency, unspecified etiology- Primary Mitral valve insufficiency, unspecified etiology documented in this encounter Care Teams Dredge Pipeman Relationship Specialty Start Date End Date Cassius Chambers MD [address] [facility] [address] [place] [address] PCP - General 08/12/16 12/30/20 documented as of this encounter
--- OUTSIDE RECORDS SUMMARY | 2024-02-28 15:38 | XMS_ITS | Encounter Summary ---
Author Organization [facility] Facility Care Team Providers Care Director Of Early Childhood Name Role Phone Unavailable Primary Care Provider Unavailabl e Encounter Details Date Type Department Care Team (Late st Contact Info) Description 02/26/2015 - 02/26/2015 11:59 PM TOP PRINTING PRESS OPERATOR Hospital Encounter [facility] Sp Hilton MD [address] [facility] [address] [place] [address] Social History Tobacco Use Types Packs/Day Years Used Date Smoking Tobacco: Never Assessed Comments Unknown Sex and Gender Information Value Date Recorded Sex Assigned at Not on file Legal Sex Female 11:30 PM TOP PRINTING PRESS OPERATOR Gender Identity Female 06/15/2023 1:45 PM [...]
--- OUTSIDE RECORDS SUMMARY | 2024-02-28 15:38 | XMS_ITS | Encounter Summary ---
Author Organization [facility] Healthcare Address [address] [place] [address] Care Team Providers Care Cut Roll Machine Offbearer Name Role Phone Cassius Chambers MD Primary Care Provider [phone] Encounter Details Date Type Department Care Team (Late st Contact Info) Description 04/10/2018 Telephone [facility] Digestive Disease [place] [id number] [address] [address] Allegra Norton RN Social History Tobacco Use Types Packs/Day Years Used Date Smoking Tobacco: Never Smokeless Tobacco: Never Comments Unknown Sex and Gender Information Value Date Recorded Sex Assigned at Not on file Legal Sex Female 11:30 PM SUPERVISOR PARTIAL DENTURE DEPARTMENT Gender Identity Female 06/15/2023 1:45 PM CDT Sexual Orientation Straight 06/15/2023 1: 45 PM CDT documented as of this encounter Miscellaneous Notes * Telephone Encounter - Allegra Norton RN - 04/13/2018 1:43 PM SUPERVISOR PARTIAL DENTURE DEPARTMENT Patient returned call, she has KARLY and appointment with air traffic control equipment repairer coming up. She was given our number to call back to schedule screening colonoscopy once this is complete and she is cleared. RVISOR PARTIAL DENTURE DEPARTMENT * Telephone Encounter - Allegra Norton RN - 04/13/2018 1:02 PM SUPERVISOR PARTIAL DENTURE DEPARTMENT Left message at patient's home to discuss colonoscopy, noted cardiac testing pending. RVISOR PARTIAL DENTURE DEPARTMENT * Telephone Encounter - Allegra Norton RN - 04/10/2018 9:22 AM SUPERVISOR PARTIAL DENTURE DEPARTMENT Order received for screening colonoscopy, chart reviewed. Pt has cardiac testing pending with recent symptoms. Since this is a screening, will check back to see results before proceeding. RVISOR PARTIAL DENTURE DEPARTMENT documented in this encounter Plan of Treatment Not on file documented as of this encounter Visit Diagnoses Not on filedocumented in this encounter Care Teams Cut Roll Machine Offbearer Relationship Specialty Start Date End Date Cassius Chambers MD [address] [address] PCP - General 08/12/16 12/30/20 documented as of this encounter
--- OUTSIDE RECORDS SUMMARY | 2024-02-28 15:38 | XMS_ITS | Encounter Summary ---
Author Organization [facility] Address [address] [place] [address] Phone Care Team Providers Care Re Dye Hand Name Role Phone Cassius Chambers MD Primary Care Provider [phone] Reason for Visit * (Routine) - Closed Specialty Diagnoses / Procedures Referred By Contac t Referred To Contact Diagnoses Mitral valve insufficiency, unspecified etiology Procedures Transthoracic Echo Complete W Doppler/CF Sp Kilpatrick MD Phone: tel: fax: [facility] (All Locations) Referral ID Status Reason Start Date Expiration Date Visits Re quested Visits Authorized [id number] Closed 04/03/2018 10/13/2019 1 1 Encounter Details Date Type Department Care Team (Latest Contact Info) Description 04/11/2018 12:30 PM MOTOR ANALYST Ancillary Procedure [facility] Cardiology [address] [place] [address] Mitral valve insufficiency, unspecified etiology Social History Tobacco Use Types Packs/Day Years Used Date Smoking Tobacco: Never Smokeless Tobacco: Never Comments Unknown Sex and Gender Information Value Date Recorded Sex Assigned at Not on file Legal Sex Female 11:30 PM MOTOR ANALYST Gender Identity Female 06/15/2023 1:45 PM CDT Sexual Orientation Straight 06/15/2023 1: 45 PM CDT documented as of this encounter Plan of Treatment Not on file documented as of this encounter Procedures Procedure Name Priority Date/Time Associated Diagnosis Comments TRANSTHORACIC ECHO (TTE) COMPLETE W DOPPLER/CF WO CONTRAST Routine 04/11/2018 1:03 PM MOTOR ANALYST Mitral valve insufficiency, unspecified etiology documented in this encounter Results * TRANSTHORACIC ECHO (TTE) COMPLETE W DOPPLER/CF WO CONTRAST (04/11/2018 1:03 PM MOTOR ANALYST) Anatomical Region Laterality Modality Ultrasound 04/11/2018 12:3 0 PM MOTOR ANALYST Narrative 04/11/2018 9:40 PM MOTOR ANALYST Patient name: Yuliana Johnson Date of test: 04/11/2018 Type of test: TTE w/Doppler [facility] #: 0 Date of : 1940 (F) Security Escort: Liv Mccormick [facility] RVT Referring Physician: SP KILPATRICK MD Contrast Agent: Contrast Administered by: Supervised/Interpreted by: Sp Kilpatrick MD Diagnosis: MV Repair, TV Repair Location: [facility] Reason for test: MV Repair, TV Repair [...] 2=Hypo 3=Akinetic 4=Dyskin./Aneurysm 0=Not visualized) Parasternal Long Gurley:MAS=1 BAS=1 MP=1 BP=1 Parasternal Short [place]ley:MAS=1 MS=1 WV=1 MP=1 ML=1 MA=1 Apical 4 Chambers:=1 MS=1 BS=1 BL=1 WV=1 AL=1 Apical 2 Chambers:AI=1 WV=1 BI=1 BA=1 MA=1 AA=1 LV Global Longitudinal [...] MD By signing this report, the attending automation engineering technician certifies that he or she has personally supervised and interpreted the echocardiogram and has reviewed and or edited and agrees with the written comments contained within the report. Procedure Note Sp Kilpatrick MD - 04/11/2018 Patient name: Yuliana Johnson Date of test: 04/11/2018 Type of test: TTE w/Doppler [facility] #: 0 Date of : 1940 (F) Security Escort: Liv Mccormick [facility] RVT Referring Physician: SP KILPATRICK MD Contrast Agent: Contrast Administered by: Supervised/Interpreted by: Sp Kilpatrick MD Diagnosis: MV Repair, TV Repair Location: [facility] Reason for test: MV Repair, TV Repair [...] 2=Hypo 3=Akinetic 4=Dyskin./Aneurysm 0=Not visualized) Parasternal Long [place]:MAS=1 BAS=1 MP=1 BP=1 Parasternal Short [place]ley:MAS=1 MS=1 WV=1 MP=1 ML=1 MA=1 Apical 4 Chambers:=1 MS=1 BS=1 BL=1 WV=1 AL=1 Apical 2 Chambers:AI=1 WV=1 BI=1 BA=1 MA=1 AA=1 LV Global Longitudinal [...] MD By signing this report, the attending automation engineering technician certifies that he or she has personally supervised and interpreted the echocardiogram and has reviewed and or edited and agrees with the written comments contained within the report. Result [facility] Sp Kilpatrick MD CV ECHO PROCEDURES Final Resul t documented in this encounter Visit Diagnoses Diagnosis Mitral valve insufficiency, unspecified etiology documented in this encounter Care Teams Re Dye Hand Relationship Specialty Start Date End Date Cassius Chambers MD [address] [address] PCP - General 08/12/16 12/30/20 documented as of this encounter
--- OUTSIDE RECORDS SUMMARY | 2024-02-28 15:39 | XMS_ITS | Encounter Summary ---
Author Organization [facility] Facility Care Team Providers Care Mail Order Biller Name Role Phone Unavailable Primary Care Provider Unavailabl e Encounter Details Date Type Department Care Team (Late st Contact Info) Description 05/08/2014 - 05/08/2014 11:59 PM CDT Hospital Encounter [facility] Cassius Cummings MD [address] [address] Encounter for screening mammogram for high-risk patient; Personal history of malignant neoplasm of breast; Acquired absence of breast and absent nipple Social History Tobacco Use Types Packs/Day Years Used Date Smoking Tobacco: Never Assessed Comments Unknown Sex and Gender Information Value Date Recorded Sex Assigned at Not on file 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 Sex 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 FINAL REPORT ACC# ??Date Time ??Exam [id number] May 08, 2014 10:41:00 [facility] [id number] Mastectomy Screen w Sourav R ?? Technologist(s): Yasmeen Johnson; ; EXAMINATION: ??Mammogram Technique: Right Unilateral Full-Field Digital Screening Mammogram and Digital Breast Tomosynthesis were performed. ??Views obtained: ??right craniocaudal and right mediolateral oblique. ??Computer Aided Detection of the 2D images was performed with Adonit.3 version 9.3. Mammogram Findings: The present examination has been compared to prior imaging studies performed at [facility] on 05/14/2013, 04/19/2012 and 03/10/2011. There are scattered fibroglandular densities. There is no suspicious abnormality in the right breast. Patient status post contralateral mastectomy for personal history of breast cancer. IMPRESSION: ??Annual screening mammography is recommended. OVERALL FINAL ASSESSMENT: BI-RADS CATEGORY 1: ??Negative. Requested By: Dictated By: ?? KATELYN MEEKS M.D. ??on May 09 2014 11:43A This document has been electronically signed by: KATELYN MEEKS M.D. on May 09 2014 11:43A [id number] Procedure Note Provider, MD Edward - 06/22/2016 KATELYN MEEKS M.D. FINAL REPORT ACC# Date Time Exam [id number] May 08, 2014 10:41:00 [facility] [id number] Mastectomy Screen w Sourav R Technologist(s): Yasmeen Johnson; ; EXAMINATION: Mammogram Technique: Right Unilateral Full-Field Digital Screening Mammogram and Digital Breast Tomosynthesis were performed. Views obtained: rightcraniocaudal and right mediolateral oblique. Computer Aided Detection of the 2Dimages was performed with Adonit.3 version 9.3. Mammogram Findings: The present examination has been compared to prior imaging studies performed at [facility] on 05/14/2013, 04/19/2012 and 03/10/2011. There are scattered fibroglandular densities. There is no suspicious abnormality in the right breast. Patient status post contralateral mastectomy for personal history of breast cancer. IMPRESSION: Annual screening mammography is recommended. OVERALL FINAL ASSESSMENT: BI-RADS CATEGORY 1: Negative. Requested By: Dictated By: KATELYN MEEKS M.D. on May 09 2014 11:43A This document has been electronically signed by: KATELYN MEEKS M.D. 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
--- OUTSIDE RECORDS SUMMARY | 2024-02-28 15:39 | XMS_ITS | Encounter Summary ---
Author Organization [facility] Facility Care Team Providers Care Auto Mechanics Instructor Name Role Phone Unavailable Primary Care Provider Unavailabl e Encounter Details Date Type Department Care Team (Late st Contact Info) Description 10/17/2014 11:12 AM CDT - 10/17/2014 4:00 PM CDT Hospital Encounter 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
--- OUTSIDE RECORDS SUMMARY | 2024-02-28 15:39 | XMS_ITS | Encounter Summary ---
Author Organization [facility] Facility Care Team Providers Care Jet Aircraft Servicer Name Role Phone Unavailable Primary Care Provider Unavailabl e Encounter Details Date Type Department Care Team (Late st Contact Info) Description 10/23/2010 - 10/23/2010 11:59 PM CDT Hospital Encounter [facility] Cassius Cummings MD [address] [address] Pain in joint, upper arm; Other specified disorders of upper arm joint Social History Tobacco Use Types Packs/Day Years Used Date Smoking Tobacco: Never Assessed Comments Unknown Sex and Gender Information Value Date Recorded Sex Assigned at Not on file 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
--- OUTSIDE RECORDS SUMMARY | 2024-02-28 15:39 | XMS_ITS | Encounter Summary ---
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
--- OUTSIDE RECORDS SUMMARY | 2024-02-28 15:39 | XMS_ITS | Encounter Summary ---
Author Organization [facility] Facility Care Team Providers Care Physical Therapy Aide Name Role Phone Unavailable Primary Care Provider Unavailabl e Encounter Details Date Type Department Care Team (Late st Contact Info) Description 09/12/2014 - 09/12/2014 11:59 PM CDT Hospital Encounter [facility] Cassius Cummings MD [address] [address] Undiagnosed cardiac murmurs Social History Tobacco Use Types Packs/Day Years Used Date Smoking Tobacco: Never Assessed Comments Unknown Sex and Gender Information Value Date Recorded Sex Assigned at Not on file 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
--- OUTSIDE RECORDS SUMMARY | 2024-02-28 15:39 | XMS_ITS | Encounter Summary ---
Author Organization [facility] Facility Care Team Providers Care Chapter Relations Administrator Name Role Phone Unavailable Primary Care Provider Unavailabl e Encounter Details Date Type Department Care Team (Late st Contact Info) Description 07/19/2007 - 07/19/2007 11:59 PM CDT Hospital Encounter [facility] Cassius Cummings MD [address] [address] Social History Tobacco Use Types Packs/Day Years Used Date Smoking Tobacco: Never Assessed Comments Unknown Sex and Gender Information Value Date Recorded Sex Assigned at Not on file 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
--- OUTSIDE RECORDS SUMMARY | 2024-02-28 15:39 | XMS_ITS | Encounter Summary ---
Author Organization [facility] Facility Care Team Providers Care Project Associate Name Role Phone Unavailable Primary Care Provider Unavailabl e Encounter Details Date Type Department Care Team (Latest Contact Info) Description 12/30/2014 7:46 AM HEALTH INFORMATION MANAGER - 12/30/2014 4:00 PM [facility] Hospital Encounter [facility] Bo Holt MD [phone] [place] [address] Encounter for other preprocedural examination; Encounter for preprocedural cardiovascular examination; Nonrheumatic mitral valve insufficiency; Non-rheumatic tricuspid valve insufficiency; Other secondary pulmonary hypertension (CMS/HCC); Heart disease; Essential (primary) hypertension; Type 2 diabetes mellitus without complications (CMS/HCC); Hyperlipidemia; Personal history of malignant neoplasm of breast; Acquired absence of breast and nipple Social History Tobacco Use Types Packs/Day Years Used Date Smoking Tobacco: Never Assessed Comments Unknown Sex and Gender Information Value Date Recorded Sex Assigned at Not on file Legal Sex Female 11:30 PM HEALTH INFORMATION MANAGER Gender Identity Female 06/15/2023 1:45 PM [...] Procedure Name Priority Date/Time Associated Diagnosis Comments BLOOD ANTIBODY IDENTIFICATION Routine 12/30/2014 11:12 AM HEALTH INFORMATION MANAGER CHEST RADIOGRAPHY, FRONTAL (AP), LATERAL Routine 12/30/2014 9:45 AM HEALTH INFORMATION MANAGER PLASMA PROTHROMBIN TIME (PT) Routine 12/30/2014 9:10 AM HEALTH INFORMATION MANAGER PLASMA COMPREHENSIVE METABOLIC PANEL Routine 12/30/2014 9:10 AM HEALTH INFORMATION MANAGER BLOOD PARTIAL THROMBOPLASTIN TIME (PTT) Routine 12/30/2014 9:10 AM HEALTH INFORMATION MANAGER URINALYSIS Routine 12/30/2014 9:10 AM HEALTH INFORMATION MANAGER BLOOD CELL COUNT (CBC) Routine 5 9:10 AM HEALTH INFORMATION MANAGER BLOOD ABO, RH, INDIRECT AB SCREEN Routine 12/30/2014 9:10 AM HEALTH INFORMATION MANAGER ELECTROCARDIOGRAPHY (ECG) 12/30/2014 DISCHARGE LABORATORY CUMULATIVE REPORT 12/30/2014 documented in this encounter Results * Blood antibody identification (12/30/2014 11:12 AM HEALTH INFORMATION MANAGER) RBC ab, ID #1 Antibody of Undetermined Specificity HISTORICAL RESULTS Comment:{Previous Anti-D not showing} Blood specimen (specimen) 12/30/2014 11:12 AM HEALTH INFORMATION MANAGER us Historical Provider LAB BLOOD ORDERABLES Miranda sheldon Result HISTORICAL RESULTS * CHEST RADIOGRAPHY, FRONTAL (AP), LATERAL (12/30/2014 9:45 AM HEALTH INFORMATION MANAGER) Anatomical Region Laterality Modality N/A Radiographic Karla ging 12/30/2014 9:45 AM HEALTH INFORMATION MANAGER Narrative 12/30/2014 12:28 PM HEALTH INFORMATION MANAGER ULISES NOLAN M.D. ULISES RIOS M.D. FINAL REPORT The radiology attending physician has personally reviewed this study, and has reviewed and/or edited this written report and agrees with it. ACC# ??Date Time ??Exam [id number] Dec 30, 2014 09:45:00 [id number] Chest 2 views Frontl & Lat EXAMINATION: ?? Chest 2 views IMPRESSION: ?? Two views of the chest are submitted for interpretation without comparison. There postsurgical changes of prior left mastectomy with surgical clips in the left axilla. The lungs are clear. There is no pneumothorax or pleural effusion. Cardiomediastinal silhouette is normal. There is an age-indeterminate compression fracture of L1. Requested By: Dictated By: ?? ULISES RIOS M.D. ??on Dec?2014 10:04A This document has been electronically signed by: ULISES NOLAN M.D. on Dec 12:28P [id number] Procedure Note Provider, Edward, - 06/22/2016 Bryan PEREZ M.D. FINAL REPORT The radiology attending physician has personally reviewed this study, and has reviewed and/or edited this written report and agrees with it. ACC# Date Time Exam [id number] Dec 30, 2014 09:45:00 [id number] Chest 2 views Frontl & Lat EXAMINATION: Chest 2 views IMPRESSION: Two views of the chest are submitted for interpretation without comparison. There postsurgical changes of prior left mastectomy with surgical clips in the left axilla. The lungs are clear. There is no pneumothorax or pleural effusion. Cardiomediastinal silhouette is normal. There is an age-indeterminate compression fracture of L1. Requested By: Dictated By: ULISES RIOS M.D. on Dec 30 2014 10:04A This document has been electronically signed by: ULISES NOLAN M.D. on Dec 30 2014 12:28P [id number] Historical Provider MD IMG XR PROCEDURES Final R esult * Urinalysis (12/30/2014 9:10 AM HEALTH INFORMATION MANAGER) Color, ur Yellow Yellow HISTORICAL RESULTS Clarity, ur Clear Clear HISTORIC AL RESULTS Specific gravity, ur 1.012 1.003 - 1.030 HISTORICAL RESULTS pH, ur 6.0 5.0 - 8.0 HISTORICAL RESULTS Protein, ur Negative Trace HISTORIC AL RESULTS Glucose, ur Negative Negative HISTORIC AL RESULTS Ketones, ur Negative Negative HISTORIC AL RESULTS Bilirubin, ur Negative Negative HISTOR ICAL RESULTS U Blood Negative Negative HISTORICAL RESULTS Urobilinogen, quant, ur <2.0 0.0 - 2.0 mg/dl HISTORICAL RESULTS Nitrites, ur Negative Negative HISTORI PAOLA RESULTS Leukocyte esterase, ur Negative Negative HISTORICAL RESULTS Urine 12/30/2014 9:10 AM HEALTH INFORMATION MANAGER Result [facility] Historical Provider LAB BLOOD ORDERABLES Miranda l Result Performing Organization Address [facility]/State/ZIP Co de Phone Number HISTORICAL RESULTS * Plasma comprehensive metabolic panel (12/30/2014 9:10 AM HEALTH INFORMATION MANAGER) Sodium 142 135 - 145 mmol/L HISTORICAL RESULTS K, pl 3.9 3.3 - 4.9 mmol/L HISTORICAL RESULTS Chloride 109 97 - 110 mmol/L HISTORICAL RESULTS CO2 22 22 - 32 mmol/L HISTORICAL RESULTS A. gap 11 0 - 16 mmol/L HISTORICAL RESULTS Glucose 150 70 - 199 mg/dl HISTORICAL RESULTS BUN 20 8 - 25 mg/dl HISTORICAL RESULTS Creatinine 1.01 0.60 - 1.10 mg/dl HISTORICAL RESULTS Calcium 9.2 8.6 - 10.3 mg/dl HISTORICAL RESULTS Protein, pl 7.3 6.5 - 8.5 g/dl HISTORICAL RESULTS Alb 4.3 3.6 - 5.0 g/dl HISTORICAL RESULTS Bilirubin 0.3 0.3 - 1.1 mg/dl HISTORICAL RESULTS Alk phos 47 38 - 126 Units/L HISTORICAL RESULTS AST 28 11 - 47 Units/L HISTORICAL RESULTS ALT 35 7 - 53 Units/L HISTORICAL RESULTS Plasma 12/30/2014 9:10 AM HEALTH INFORMATION MANAGER Result [facility] Provider LAB BLOOD ORDERABLES Miranda l Result Performing Organization Address [facility] de Phone Number HISTORICAL RESULTS * Plasma prothrombin time (PT) (12/30/2014 9:10 AM HEALTH INFORMATION MANAGER) Prothrombin time (PT) 11.5 9.2 - 13.0 seconds HISTORICAL RESULTS INR 1.06 0.90 - 1.20 HISTORIC AL RESULTS Comment: Interpretive Data Inpatient therapeutic ranges* Atrial fibrillation ?2.0-3.0 INR Venous thrombo-embolism ?2.0-3.0 INR Bioprosthetic heart valve ?* Mechanical heart valve, bileaflet or tilting disk,aortic position ? 2.0-3.0 INR All other,or bileaflet or tilting disk, in mitral position ? 2.5-3.5 INR *See the pharmacy resource directory (PHRED) for an updated copy of the Tool Book at [email or web address] Current Interpretive Data was last revised 2011. Plasma 12/30/2014 9:10 AM HEALTH INFORMATION MANAGER us Historical Provider MD LAB BLOOD ORDERABLES Miranda pito Result Performing Organization Address [facility] Co de Phone Number HISTORICAL RESULTS * Blood partial thromboplastin time (PTT) (12/30/2014 9:10 AM HEALTH INFORMATION MANAGER) APTT 28.6 25.0 - 37.0 seconds HISTORICAL RESULTS Comment: Interpretive Data Therapeutic heparin range:60.0 - 94.0 sec based on correlation with therapeutic heparin activity range of 0.3 -0.7 Units/mL. Current interpretive data was last revised on 2011. Blood specimen (specimen) 12/30/2014 9:10 AM HEALTH INFORMATION MANAGER us Historical Provider LAB BLOOD ORDERABLES Miranda pito Result HISTORICAL RESULTS * (ABNORMAL) Blood cell count (CBC) (12/30/2014 9:10 AM HEALTH INFORMATION MANAGER) WBC 7.3 3.8 - 9.8 K/cumm HISTORICAL RESULTS RBC 4.93 3.90 - 5.00 M/cumm HISTORICAL RESULTS Hgb 13.9 12.1 - 15.1 g/dl HISTORICAL RESULTS Hct 43.5 36.1 - 44.3 % HISTORICAL RESULTS MCV 88.3 80.0 - 97.6 fl HISTORICAL RESULTS MCH 28.2 26.7 - 33.7 pg HISTORICAL RESULTS MCHC 32.0(L) 32.7 - 35.5 g/dl HISTORICAL RESULTS Rdw 14.0 11.8 - 14.6 % HISTORICAL RESULTS Platelets 225 140 - 440 K/cumm HISTORICAL RESULTS MPV 10.2 6.8 - 10.4 fl HISTORICAL RESULTS Neutrophils 61.9 38.7 - 74.5 % HISTORICAL RESULTS Lymphocytes 26.7 20.0 - 54.3 % HISTORICAL RESULTS Monos 8.5 4.3 - 13.5 % HISTORICAL RESULTS Eosinophils 2.0 0.0 - 6.0 % HISTORICAL RESULTS Basophils 0.9 0.0 - 3.0 % HISTORICAL RESULTS Neutrophils, abs 4.5 1.8 - 6.6 K/cumm HISTORICAL RESULTS Lymphocytes, abs 1.9 1.2 - 3.3 K/cumm HISTORICAL RESULTS Monocytes, absolute 0.6 0.2 - 1.2 K/cumm HISTORICAL RESULTS Eosinophils, abs 0.1 0.0 - 0.5 K/cumm HISTORICAL RESULTS Basophils, abs 0.1 0.0 - 0.2 K/cumm HISTORICAL RESULTS Blood specimen (specimen) 12/30/2014 9:10 AM HEALTH INFORMATION MANAGER Historical Provider LAB BLOOD ORDERABLES Miranda sheldon Result HISTORICAL RESULTS * (ABNORMAL) Blood ABO, Rh, indirect ab screen (12/30/2014 9:10 AM HEALTH INFORMATION MANAGER) Ramón, indirect Positive(A) HISTORICAL RESULTS ABO, Rho(D) O Negative HISTORI PAOLA RESULTS Blood specimen (specimen) 12/30/2014 9:10 AM HEALTH INFORMATION MANAGER Result [facility] Provider LAB BLOOD ORDERABLES Miranda l Result HISTORICAL RESULTS * DISCHARGE LABORATORY CUMULATIVE REPORT (12/30/2014) Narrative 12/30/2014 Ordered by an unspecified provider. Historical Provider LAB BLOOD ORDERABLES Miranda l Result * ELECTROCARDIOGRAPHY (ECG) (12/30/2014) Narrative 12/30/2014 Ordered by an unspecified provider. 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
--- OUTSIDE RECORDS SUMMARY | 2024-02-28 15:39 | XMS_ITS | Encounter Summary ---
Author Organization [facility] Facility Care Team Providers Care Sewage Plant Attendant Name Role Phone Unavailable Primary Care Provider Unavailabl e Encounter Details Date Type Department Care Team (Late st Contact Info) Description 12/06/2014 - 12/06/2014 11:59 PM CDT Hospital Encounter [facility] Sp Hilton MD [address] [facility] [address] [place] [address] Social History Tobacco Use Types Packs/Day Years Used Date Smoking Tobacco: Never Assessed Comments Unknown Sex and Gender Information Value Date Recorded Sex Assigned at Not on file Legal Sex Female 11:30 PM HEALTHCARE RECEPTIONIST Gender Identity Female 06/15/2023 1:45 PM CDT Sexual Orientation Straight 06/15/2023 1: 45 PM CDT documented as of this encounter Plan of Treatment Not on file documented as of this encounter Visit Diagnoses Not on filedocumented in this encounter
--- OUTSIDE RECORDS SUMMARY | 2024-02-28 15:39 | XMS_ITS | Encounter Summary ---
Author Organization [facility] Facility Care Team Providers Care Laborer High Density Press Name Role Phone Unavailable Primary Care Provider Unavailabl e Encounter Details Date Type Department Care Team (Late st Contact Info) Description 04/19/2012 - 04/19/2012 11:59 PM ASSOCIATE PUBLISHER Hospital Encounter [facility] Cassius Cummings MD [address] [address] Other screening mammogram; Acquired absence of breast and absent nipple; Personal history of malignant neoplasm of breast Social History Tobacco Use Types Packs/Day Years Used Date Smoking Tobacco: Never Assessed Comments Unknown Sex and Gender Information Value Date Recorded Sex Assigned at Not on file Legal Sex Female 11:30 PM ASSOCIATE PUBLISHER Gender Identity Female 06/15/2023 1:45 PM CDT Sexual Orientation Straight 06/15/2023 1: 45 PM CDT documented as of this encounter Plan of Treatment Not on file documented as of this encounter Procedures Procedure Name Priority Date/Time Associated Diagnosis Comments SCREENING MAMMOGRAM Routine 04/19/2012 1 1:45 AM ASSOCIATE PUBLISHER documented in this encounter Results * Screening Mammogram (04/19/2012 11:45 AM ASSOCIATE PUBLISHER) Anatomical Region Laterality Modality Breast N/A Mammography 04/19/2012 11:4 5 AM ASSOCIATE PUBLISHER Narrative 04/19/2012 3:04 PM ASSOCIATE PUBLISHER CRIS FULLER M.D. FINAL REPORT ACC# ??Date Time ??Exam [id number] Apr 19, 2012 11:45:00 [facility] [id number] Screen unilateral R ?? Technologist(s): Nat Mercado; ; EXAMINATION: ??Mammogram Findings: A Full-Field Digital Screening Mammogram was performed. ??Views obtained: right craniocaudal and right mediolateral oblique. Computer Aided Detection was performed with R2, version 9.2. The present examination has been compared to prior imaging studies performed at [facility] on 03/10/2011, 01/26/2010 and 12/24/2008. There are scattered fibroglandular densities. There is no suspicious abnormality in the right breast. Patient status post contralateral mastectomy for personal history of breast cancer. IMPRESSION: ??Annual screening mammography is recommended. OVERALL FINAL ASSESSMENT: BI-RADS CATEGORY 1: ??Negative. Requested By: Cassius Chambers ??M.D. Dictated By: ?? CRIS FULLER M.D. ??on Apr 19 2012 ??3:04P This document has been electronically signed by: CRIS FULLER M.D. on Apr 19 2012 ??3:04P Procedure Note Provider, MD Edward - 06/22/2016 CRIS FULLER M.D. FINAL REPORT ACC# Date Time Exam [id number] Apr 19, 2012 11:45:00 [facility] [id number] Screen unilateral R Technologist(s): Nat Mercado; ; EXAMINATION: Mammogram Findings: A Full-Field Digital Screening Mammogram was performed. Views obtained: right craniocaudal and right mediolateral oblique. Computer Aided Detection was performed with R2, version 9.2. The present examination has been compared to prior imaging studies performed at [facility] on 03/10/2011, 01/26/2010 and 12/24/2008. There are scattered fibroglandular densities. There is no suspicious abnormality in the right breast. Patient status post contralateral mastectomy for personal history of breast cancer. IMPRESSION: Annual screening mammography is recommended. OVERALL FINAL ASSESSMENT: BI-RADS CATEGORY 1: Negative. Requested By: Cassius Chambers M.D. Dictated By: CRIS FULLER M.D. on Apr 19 2012 3:04P This document has been electronically signed by: CRIS FULLER M.D. 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
--- OUTSIDE RECORDS SUMMARY | 2024-02-28 15:39 | XMS_ITS | Encounter Summary ---
Author Organization [facility] Facility Care Team Providers Care Airdrop Systems Technician Name Role Phone Unavailable Primary Care Provider Unavailabl e Encounter Details Date Type Department Care Team (Late st Contact Info) Description 01/26/2010 - 01/26/2010 11:59 PM CUTTER ALUMINUM SHEET Hospital Encounter [facility] Cassius Cummings MD [address] [address] Encounter for screening mammogram for high-risk patient; Personal history of malignant neoplasm of breast; Acquired absence of breast and absent nipple Social History Tobacco Use Types Packs/Day Years Used Date Smoking Tobacco: Never Assessed Comments Unknown Sex and Gender Information Value Date Recorded Sex Assigned at Not on file Legal Sex Female 11:30 PM CUTTER ALUMINUM SHEET Gender Identity Female 06/15/2023 1:45 PM CDT Sexual Orientation Straight 06/15/2023 1: 45 PM CDT documented as of this encounter Plan of Treatment Not on file documented as of this encounter Visit Diagnoses Diagnosis Encounter for screening mammogram for high-risk patient Personal history of malignant neoplasm of breast 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
--- OUTSIDE RECORDS SUMMARY | 2024-02-28 15:39 | XMS_ITS | Encounter Summary ---
Author Organization [facility] Facility Care Team Providers Care Puppet Developer Name Role Phone Unavailable Primary Care Provider Unavailabl e Encounter Details Date Type Department Care Team (Latest Contact Info) Description 10/28/2014 12:45 PM CDT - 10/28/2014 4:00 PM CDT Hospital Encounter [facility] Sp Hilton MD [address] [facility] [address] [place] [address] Mitral valve disorder; Coronary atherosclerosis of [place] coronary artery; Other chronic pulmonary heart diseases (CMS/HCC); Benign essential hypertension; Other and unspecified hyperlipidemia; Type 2 or unspecified type diabetes mellitus; Personal history of malignant neoplasm of breast; Personal history of antineoplastic chemotherapy; Personal history of irradiation, presenting hazards to health Social History Tobacco Use Types Packs/Day Years Used Date Smoking Tobacco: Never Assessed Comments Unknown Sex and Gender Information Value Date Recorded Sex Assigned at Not on file Legal Sex Female 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 Gender Identity Female 06/15/2023 1:45 PM CDT Sexual Orientation Straight 06/15/2023 1: 45 PM CDT documented as of this encounter Plan of Treatment Not on file documented as of this encounter Procedures Procedure Name Priority Date/Time Associated Diagnosis Comments BLOOD OXYHEMOGLOBIN Routine 10/28/2014 3 :20 PM CDT BLOOD OXYHEMOGLOBIN Routine 10/28/2014 3 :20 PM CDT BLOOD OXYHEMOGLOBIN Routine 10/28/2014 3 :19 PM CDT BLOOD CELL COUNT Routine 10/28/2014 12:5 5 PM CDT CARDIAC CATHETERIZATION Routine 10/29/19 15 12:00 AM CDT documented in this encounter Results * (ABNORMAL) Blood oxyhemoglobin (10/28/2014 3:20 PM CDT) OxyHb, POC 69.1 >=65.0 % HISTORICA L RESULTS Hgb 13.4 12.1 - 15.1 g/dl HISTORICAL RESULTS O2 content, arterial 12.8(L) 15.0 - 22.0 volume % O2 HISTORICAL RESULTS Referral specimen, collection site Pulm Art right HISTORICAL RESULTS Blood specimen (specimen) 10/28/2014 3:20 PM CDT us Sp Madrid MD LAB BLOOD ORDERABLES Final Res ult HISTORICAL RESULTS * Blood oxyhemoglobin (10/28/2014 3:20 PM CDT) OxyHb, POC 92.5 >=65.0 % HISTORICA L RESULTS Hgb 13.7 12.1 - 15.1 g/dl HISTORICAL RESULTS O2 content, arterial 17.6 15.0 - 22.0 volume % O2 HISTORICAL RESULTS Referral specimen, collection site Artery femoral HISTORICAL RESULTS Blood specimen (specimen) 10/28/2014 3:20 PM CDT us Sp Madrid MD LAB BLOOD ORDERABLES Final Res ult HISTORICAL RESULTS * (ABNORMAL) Blood oxyhemoglobin (10/28/2014 3:19 PM CDT) OxyHb, POC 69.2 >=65.0 % HISTORICA L RESULTS Hgb 14.0 12.1 - 15.1 g/dl HISTORICAL RESULTS O2 content, arterial 13.5(L) 15.0 - 22.0 volume % O2 HISTORICAL RESULTS Referral specimen, collection site Pulm Art right HISTORICAL RESULTS Blood specimen (specimen) 10/28/2014 3:19 PM CDT Sp Madrid MD LAB BLOOD ORDERABLES Final Res ult Performing Organization Address [facility] de Phone Number HISTORICAL RESULTS * (ABNORMAL) Blood cell count [CBC] express (10/28/2014 12:55 PM CDT) WBC 7.8 3.8 - 9.8 K/cumm HISTORICAL RESULTS RBC 5.07(H) 3.90 - 5.00 M/cumm HISTORICAL RESULTS Hgb 14.1 12.1 - 15.1 g/dl HISTORICAL RESULTS Hct 43.7 36.1 - 44.3 % HISTORICAL RESULTS MCV 86.3 80.0 - 97.6 fl HISTORICAL RESULTS MCH 27.8 26.7 - 33.7 pg HISTORICAL RESULTS MCHC 32.3(L) 32.7 - 35.5 g/dl HISTORICAL RESULTS Rdw 13.7 11.8 - 14.6 % HISTORICAL RESULTS Platelets 206 140 - 440 K/cumm HISTORICAL RESULTS MPV 10.3 6.8 - 10.4 fl HISTORICAL RESULTS Blood specimen (specimen) 10/28/2014 12:55 PM CDT Sp Madrid MD LAB BLOOD ORDERABLES Final Res ult Performing Organization Address [facility] de Phone Number HISTORICAL RESULTS * Cardiac catheterization (10/28/2014 12:00 AM CDT) Anatomical Region Laterality Modality Other 10/28/2014 Narrative 12/15/2014 9:31 PM CDT Patient: ?Yuliana Johnson ? Reg No: ? [id number] ? U H #: ?[id number] ? : ?1940 ? Attending: ??Sp Madrid M.D. ? Dictating: ??Sp Madrid M.D. ? Service Dt: 10/28/2014 ?CARDIAC CATHETERIZATION REPORT Preliminary ? RIGHT AND LEFT HEART CATHETERIZATION REPORT: PATIENT CLINICAL PROFILE: ?The patient is a 73-year-old female with a history of severe mitral valve insufficiency with a left ventricular ejection fraction of 60%. ??She has mitral valve prolapse, benign essential hypertension, dyslipidemia, type 2 diabetes mellitus, history of left-sided partial mastectomy in 1991 for breast cancer and took radiation and chemotherapy. ??She has no allergies. ??She is now undergoing right and left heart catheterization for evaluation of the mitral valve. PROCEDURE: 1. The patient was brought to the cardiac laboratory geneticist after informed consent. 2. The right and left groins were prepped and draped under aseptic condition. 3. Fentanyl and Versed were used as sedation and 2% Lidocaine was used for ?? local anesthesia. 4. A 4F sheath was introduced into the right femoral artery using the ?? micropuncture technique. 5. An 8F sheath was introduced into the right femoral vein using the modified ?? Seldinger technique. 6. A Grand Tower Rayna catheter was placed under fluoroscopy in the right radium, right ?? ventricle, pulmonary artery and hemodynamics were obtained. ??Mixed venous ?? saturation obtained. ??Pullback pressure obtained. 7. A 4F JL4 catheter was placed into the left coronary artery system and images ?? were obtained in different views. 8. A 4F JR4 catheter was placed into the right coronary artery system and ?? images were obtained in different views. 9. A 4F pigtail catheter was placed into the left ventricular cavity and ?? hemodynamics were obtained; no left ventriculogram was done. RESULTS: Right Heart Hemodynamics: Right atrial pressure ? 12/10 mmHg, mean 10 mmHg Right ventricular pressure ?45/11 mmHg, mean 13 mmHg Pulmonary artery pressure ? 52/20 mmHg, mean 34 mmHg Pulmonary capillary wedge pressure ?A-wave 20, v-wave 48 mmHg, mean 28 mmHg Cardiac output ?3.08 L/min Cardiac index ? 1.84 L/min/M2 Heart rate ?67 beats per minute AVO2 difference ? 4.86 mL/dL Hemoglobin ?14.6 g/dL PA saturation ? 69% AO saturation ? 93% on room air Left Heart Hemodynamics: 1. The left ventricular end diastolic pressure was 14 - 18 mmHg. 2. No gradient across the aortic valve. 3. Central aortic pressure was 131/61 mmHg. ??The patient was in sinus rhythm. Angiography: Left Ventriculogram: Normal left ventricular systolic function. ??Mildly dilated left ventricular cavity. ??Severe mitral regurgitation with a regurgitant blood that flows all the way to the pulmonary veins. Selective Coronary Arteriography: Left Coronary System: 1. Left main coronary artery: ??The left main coronary artery is normal. 2. Left anterior descending coronary artery: ??The proximal, mid, and distal ?? portions of the left anterior descending coronary artery are free of ?? significant disease. 3. Left circumflex coronary artery: ??The proximal left circumflex coronary ?? artery has minimal plaque and is a non-dominant vessel. Right Coronary System: The right coronary artery is a large dominant vessel free of significant disease. DIAGNOSTIC IMPRESSIONS: 1. Minimal coronary artery disease. 2. Severe mitral regurgitation. 3. Moderate pulmonary hypertension. THERAPEUTIC RECOMMENDATIONS: 1. The patient is to undergo mitral valve repair / replacement by Dr. Soriano ?? Maniar. ??I spoke to him personally. ??He will see the patient and the surgery ?? will be done electively as an outpatient. 2. No complications noted. 3. Groin instructions given. 4. The findings were explained to the patient and family who understand. Electronically Signed By Sp Madrid M.D. 12/15/2014 09:31 P Bryan Ferrell/analisa #[id number] Editing MT: TD: ??10/29/2014 07:02:00 cc: ?? Sp Madrid M.D. ?Cassius Chambers M.D. Procedure Note Provider, MD Edward - 06/29/2016 Patient: Yuliana Johnson Reg No: [id number] [facility] #: [id number] : 1940 Attending: Sp Madrid M.D. Dictating: Sp Madrid M.D. Service Dt: 10/28/2014 CARDIAC CATHETERIZATION REPORT Preliminary RIGHT AND LEFT HEART CATHETERIZATION REPORT: PATIENT CLINICAL PROFILE: The patient is a 73-year-old female with a history of severe mitralvalve insufficiency with a left ventricular ejection fraction of 60%. She hasmitral valve prolapse, benign essential hypertension, dyslipidemia, type 2diabetes mellitus, history of left-sided partial mastectomy in 1991 for breastcancer and took radiation and chemotherapy. She has no allergies. She is now undergoing right and left heart catheterization for evaluation of themitral valve. PROCEDURE: 1. The patient was brought to the cardiac laboratory geneticist after informedconsent. 2. The right and left groins were prepped and draped under asepticcondition. 3. Fentanyl and Versed were used as sedation and 2% Lidocaine was usedfor local anesthesia. 4. A 4F sheath was introduced into the right femoral artery using the micropuncture technique. 5. An 8F sheath was introduced into the right femoral vein using themodified Seldinger technique. 6. A Grand Tower Rayna catheter was placed under fluoroscopy in the right radium,right ventricle, pulmonary artery and hemodynamics were obtained. Mixedvenous saturation obtained. Pullback pressure obtained. 7. A 4F JL4 catheter was placed into the left coronary artery system andimages were obtained in different views. 8. A 4F JR4 catheter was placed into the right coronary artery systemand images were obtained in different views. 9. A 4F pigtail catheter was placed into the left ventricular cavity and hemodynamics were obtained; no left ventriculogram was done. RESULTS: Right Heart Hemodynamics: Right atrial pressure 12/10 mmHg, mean 10 mmHg Right ventricular pressure 45/11 mmHg, mean 13 mmHg Pulmonary artery pressure 52/20 mmHg, mean 34 mmHg Pulmonary capillary wedge pressure A-wave 20, v-wave 48 mmHg,mean 28 mmHg Cardiac output 3.08 L/min Cardiac index 1.84 L/min/M2 Heart rate 67 beats per minute AVO2 difference 4.86 mL/dL Hemoglobin 14.6 g/dL PA saturation 69% AO saturation 93% on room air Left Heart Hemodynamics: 1. The left ventricular end diastolic pressure was 14 - 18 mmHg. 2. No gradient across the aortic valve. 3. Central aortic pressure was 131/61 mmHg. The patient was in sinusrhythm. Angiography: Left Ventriculogram: Normal left ventricular systolic function. Mildly dilated leftventricular cavity. Severe mitral regurgitation with a regurgitant blood that flowsall the way to the pulmonary veins. Selective Coronary Arteriography: Left Coronary System: 1. Left main coronary artery: The left main coronary artery is normal. 2. Left anterior descending coronary artery: The proximal, mid, anddistal portions of the left anterior descending coronary artery are free of significant disease. 3. Left circumflex coronary artery: The proximal left circumflexcoronary artery has minimal plaque and is a non-dominant vessel. Right Coronary System: The right coronary artery is a large dominant vessel free of significant disease. DIAGNOSTIC IMPRESSIONS: 1. Minimal coronary artery disease. 2. Severe mitral regurgitation. 3. Moderate pulmonary hypertension. THERAPEUTIC RECOMMENDATIONS: 1. The patient is to undergo mitral valve repair / replacement by Dr.Hersh Cuellar. I spoke to him personally. He will see the patient and thesurgery will be done electively as an outpatient. 2. No complications noted. 3. Groin instructions given. 4. The findings were explained to the patient and family who understand. Electronically Signed By Sp Madrid M.D. 12/15/2014 09:31 P Bryan Ferrell/analisa #[id number] Editing MT: TD: 10/29/2014 07:02:00 cc: Bryan Ferrell M.D. us Historical Provider MD WEI CARDIAC CATH PROCEDURE S Final Result documented in this encounter Visit Diagnoses Diagnosis Mitral valve disorder Mitral valve disorders Coronary atherosclerosis of [place] coronary artery Other chronic pulmonary heart diseases Benign essential hypertension Essential hypertension, benign Other and unspecified hyperlipidemia Type 2 or unspecified type diabetes mellitus Personal history of malignant neoplasm of breast Personal history of antineoplastic chemotherapy Personal history of irradiation, presenting hazards to health documented in this encounter
--- OUTSIDE RECORDS SUMMARY | 2024-02-28 15:39 | XMS_ITS | Encounter Summary ---
Author Organization [facility] Facility Care Team Providers Care Bowl Turner Name Role Phone Unavailable Primary Care Provider Unavailabl e Encounter Details Date Type Department Care Team (Late st Contact Info) Description 03/10/2011 - 03/10/2011 11:59 PM EMBROIDERER HAND Hospital Encounter [facility] Cassius Cummings MD [address] [id number] Other screening mammogram Social History Tobacco Use Types Packs/Day Years Used Date Smoking Tobacco: Never Assessed Comments Unknown Sex and Gender Information Value Date Recorded Sex Assigned at Not on file Legal Sex Female 11:30 PM EMBROIDERER HAND Gender Identity Female 06/15/2023 1:45 PM CDT Sexual Orientation Straight 06/15/2023 1: 45 PM CDT documented as of this encounter Plan of Treatment Not on file documented as of this encounter Visit Diagnoses Diagnosis Other screening mammogram documented in this encounter
--- OUTSIDE RECORDS SUMMARY | 2024-02-28 15:39 | XMS_ITS | Encounter Summary ---
Author Organization 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; Acute pulmonary insufficiency following nonthoracic surgery (CMS/HCC); Other secondary pulmonary hypertension (CMS/HCC); Acute posthemorrhagic anemia; Type 2 diabetes mellitus without complications (CMS/HCC); Essential (primary) hypertension; Personal history of malignant neoplasm of breast; Hyperlipidemia; 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; Other acute postprocedural pain; 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 (CMS/HCC); Overweight; Body mass index (BMI) of 28.0-28.9 in adult; Heart disease Social History Tobacco Use Types Packs/Day Years Used Date Smoking Tobacco: Never Assessed Comments Unknown Sex and Gender Information Value Date Recorded Sex Assigned at Not on file Legal Sex Female 11:30 PM CONTACT LENS BLOCKER Gender Identity Female 06/15/2023 1:45 PM CDT Sexual Orientation Straight 06/15/2023 1: 45 PM CDT documented as of this encounter Last Filed Vital Signs Vital Sign Reading Time Taken Comments Blood Pressure 108/43 01/15/2015 1:54 PM CONTACT LENS BLOCKER Pulse 72 01/15/2015 1:54 PM CONTACT LENS BLOCKER Temperature - - Respiratory Rate - - Oxygen Saturation 98% 01/15/2015 1:54 PM CONTACT LENS BLOCKER Inhaled Oxygen Concentration - - Weight 69 kg (152 lb 1.5 oz) 01/15/2015 1:00 AM CONTACT LENS BLOCKER Height 154.9 cm (5' 1 ) 01/07/2015 1:15 PM CONTACT LENS BLOCKER Body Mass Index 28.74 01/07/2015 1:15 PM CONTACT LENS BLOCKER documented in this encounter Medications at Time of Discharge furosemide (LASIX) 40 mg tablet Take 1 tablet by mouth daily 12/30/2014 11/17/2018 potassium chloride ER (potassium chloride ER) 20 mEq CR tablet take 1 tablet daily 12/30/2014 07/31/2018 documented as of this encounter Miscellaneous Notes * Op Note - Provider, MD Edward - 01/07/2015 12:00 AM CST Patient: YULIANA SINGH Reg No: [id number] [facility] #: [id number] Admit Dt.: 01/07/2015 : 1940 Pt Type: IN Room No: 70312-44 Attending: Bo Cuellar M.D. Surgeon: Bo Cuellar M.D. Dictating: Bo Cuellar M.D. Service Dt: 01/07/2015 OPERATIVE REPORT FIRST WIRE INSERTER: Dr. Charly Herrera PREOPERATIVE DIAGNOSIS (ES): Mitral regurgitation and tricuspid regurgitation. POSTOPERATIVE DIAGNOSIS (ES): Mitral regurgitation and tricuspid regurgitation. NAME OF OPERATION: Mitral valve repair using a complex repair of the posterior leaflet using triangular resection with a 26 mm annuloplasty Physio II ring as well as tricuspid repair using a 32 annuloplasty ring as well. INDICATIONS FOR PROCEDURE: This is a woman who presented with worsening shortness of breath. Workup at that time revealed severe mitral regurgitation, moderate tricuspid regurgitation, and she was brought to the operating room for correction of these anomalies. DESCRIPTION OF PROCEDURE: The patient was brought onto the operating room table, placed in supine position. After appropriate intravenous intraarterial lines had been established, patient was anesthetized, intubated, prepped and draped in standard surgical fashion. A median sternotomy was then performed. The heart was suspended in a pericardial cradle. The patient fully heparinized. Preparations were made for cardiopulmonary bypass which included cannulation of the SVC and IVC as well as the ascending aorta. The patient was begun on cardiopulmonary bypass. Waterston's groove was then developed. Cannula was placed in the coronary sinus and the ascending aorta for the administration of cardioplegia. We arrested the heart with a combination of antegrade and retrograde cardioplegia, placement of an aortic cross clamp. It should be noted that cardioplegia was given at approximately 15 minute intervals in order to maintain cardiac rest. The left atrium was then incised and the left atrium itself was entered. A self-retaining retractor was placed. The patient had P2 flail. It was degenerative, non-rheumatic in nature. She did not have significant excess of posterior leaflet tissue. A relatively small triangular resection was performed in the posterior leaflet and then this was then closed with 5-0 Ethibond suture. Once we had accomplished this, we then performed annuloplasty stitches using RB1 nonpledgeted sutures placed in the standard fashion, secured to a 26 mm Physio II annuloplasty ring with the Cor-Knot prosthesis. We copiously irrigated the area and then closed the left atrium in a standard closure technique. A vent had been placed across the mitral valve annulus via the right superior pulmonary vein. Once we had turned our attention to this, we secured cable tapes around the SVC and IVC and turned our attention then to opening the atrium which was done in an oblique fashion. We were able to inspect the tricuspid valve. The annulus here was quite dilated and this was all the more reason I thought given her degree of pulmonary hypertension, tricuspid annular dilatation, as well as the presence of TR, that we should perform the tricuspid repair. This was then done with RB1 nonpledgeted sutures. A 32 Physio II annuloplasty ring was then placed in this location. After this was done we copiously irrigated the atrium, closed the atrium in a two-layered closure technique, and released the aortic cross clamp, weaned from cardiopulmonary bypass with a moderate amount of inotropic support. Epicardial pacing wires were brought out percutaneously on the atrium and the ventricle, brought out percutaneously through the skin. The pericardium was loosely approximated over the ascending aorta and diaphragmatic surfaces, and all the cannulas had been removed and oversewn. Hemostasis appeared to be adequate. Drainage tubes were placed within the mediastinum. Sternum reapproximated with heavy gauge wires. Skin and subcutaneous tissues closed in standard fashion. I was present for the entire procedure. Dr. Herrera functioned as the assistant women's basketball coach as there was no qualified resident available. Total cross clamp time was 1 hours and 20 minutes. Total pump time was 2 hours and 1 minute. Electronically Authenticated and Edited by: Bo Cuellar MD On 01/16/2015 05:45 PM CONTACT LENS BLOCKER Bo Cuellar M.D. [facility]: #[id number] Editing MT: TD: 01/09/2015 08:27 AM cc: Bo Cuellar M.D. documented in this encounter Plan of Treatment Not on file documented as of this encounter Procedures Procedure Name Priority Date/Time Associated Diagnosis Comments BLOOD GLUCOSE, POC Routine 01/15/2015 11 :47 AM CONTACT LENS BLOCKER BLOOD GLUCOSE, POC Routine 01/15/2015 6: 46 AM CONTACT LENS BLOCKER DISCHARGE LABORATORY CUMULATIVE REPORT 01/15/2015 PLASMA COMPREHENSIVE METABOLIC PANEL Routine 01/14/2015 9:36 PM CONTACT LENS BLOCKER BLOOD B-TYPE NATRIURETIC PEPTIDE (BNP) Routine 01/14/2015 9:36 PM CONTACT LENS BLOCKER BLOOD CELL COUNT (CBC) Routine 5 9:36 PM CONTACT LENS BLOCKER BLOOD GLUCOSE, POC Routine 01/14/2015 8: 36 PM CONTACT LENS BLOCKER BLOOD GLUCOSE, POC Routine 01/14/2015 5: 07 PM CONTACT LENS BLOCKER BLOOD GLUCOSE, POC Routine 01/14/2015 11 :31 AM CONTACT LENS BLOCKER BLOOD GLUCOSE, POC Routine 01/14/2015 7: 27 AM CONTACT LENS BLOCKER PLASMA BASIC METABOLIC PANEL Routine 01/13/2015 11:01 PM CONTACT LENS BLOCKER BLOOD CELL COUNT (CBC) Routine 5 11:01 PM CONTACT LENS BLOCKER BLOOD GLUCOSE, POC Routine 01/13/2015 8: 54 PM CONTACT LENS BLOCKER BLOOD GLUCOSE, POC Routine 01/13/2015 5: 05 PM CONTACT LENS BLOCKER BLOOD GLUCOSE, POC Routine 01/13/2015 12 :03 PM CONTACT LENS BLOCKER CHEST RADIOGRAPHY, FRONTAL (AP), LATERAL Routine 01/13/2015 11:37 AM CONTACT LENS BLOCKER BLOOD GLUCOSE, POC Routine 01/13/2015 7: 29 AM CONTACT LENS BLOCKER PLASMA BASIC METABOLIC PANEL Routine 01/12/2015 11:40 PM CONTACT LENS BLOCKER BLOOD CELL COUNT Routine 01/12/2015 11:4 0 PM CONTACT LENS BLOCKER BLOOD GLUCOSE, POC Routine 01/12/2015 8: 54 PM CONTACT LENS BLOCKER BLOOD GLUCOSE, POC Routine 01/12/2015 4: 59 PM CONTACT LENS BLOCKER BLOOD GLUCOSE, POC Routine 01/12/2015 11 :28 AM CONTACT LENS BLOCKER BLOOD GLUCOSE, POC Routine 01/12/2015 7: 25 AM CONTACT LENS BLOCKER PLASMA COMPREHENSIVE METABOLIC PANEL Routine 01/11/2015 11:44 PM CONTACT LENS BLOCKER BLOOD CELL COUNT Routine 01/11/2015 11:4 4 PM CONTACT LENS BLOCKER BLOOD GLUCOSE, POC Routine 01/11/2015 8: 32 PM CONTACT LENS BLOCKER BLOOD GLUCOSE, POC Routine 01/11/2015 4: 47 PM CONTACT LENS BLOCKER BLOOD GLUCOSE, POC Routine 01/11/2015 11 :16 AM CONTACT LENS BLOCKER BLOOD GLUCOSE, POC Routine 01/11/2015 6: 50 AM CONTACT LENS BLOCKER PLASMA BASIC METABOLIC PANEL Routine 01/10/2015 9:49 PM CONTACT LENS BLOCKER BLOOD B-TYPE NATRIURETIC PEPTIDE (BNP) Routine 01/10/2015 9:49 PM CONTACT LENS BLOCKER BLOOD CELL COUNT (CBC) Routine 5 9:49 PM CONTACT LENS BLOCKER BLOOD GLUCOSE, POC Routine 01/10/2015 9: 35 PM CONTACT LENS BLOCKER BLOOD GLUCOSE, POC Routine 01/10/2015 4: 59 PM CONTACT LENS BLOCKER CHEST RADIOGRAPHY, FRONTAL (AP), LATERAL Routine 01/10/2015 2:50 PM CONTACT LENS BLOCKER BLOOD GLUCOSE, POC Routine 01/10/2015 11 :38 AM CONTACT LENS BLOCKER BLOOD GLUCOSE, POC Routine 01/10/2015 7: 11 AM CONTACT LENS BLOCKER SERUM MAGNESIUM Routine 01/09/2015 10:57 PM CONTACT LENS BLOCKER PLASMA PHOSPHORUS Routine 01/09/2015 10: 57 PM CONTACT LENS BLOCKER PLASMA BASIC METABOLIC PANEL Routine 01/09/2015 10:57 PM CONTACT LENS BLOCKER BLOOD CELL COUNT Routine 01/09/2015 10:5 7 PM CONTACT LENS BLOCKER BLOOD GLUCOSE, POC Routine 01/09/2015 10 :47 PM CONTACT LENS BLOCKER BLOOD GLUCOSE, POC Routine 01/09/2015 4: 51 PM CONTACT LENS BLOCKER MRSA SURVEILLANCE CULTURE, CDR Routine 01/09/2015 2:46 PM CONTACT LENS BLOCKER BLOOD HEMOGLOBIN SATURATION Routine 01/09/2015 2:17 PM CONTACT LENS BLOCKER BLOOD GLUCOSE, POC Routine 01/09/2015 12 :28 PM CONTACT LENS BLOCKER PLASMA BASIC METABOLIC PANEL Routine 01/09/2015 9:29 AM CONTACT LENS BLOCKER BLOOD POTASSIUM, MIXED VENOUS Routine 01/09/2015 9:29 AM CONTACT LENS BLOCKER BLOOD GLUCOSE, POC Routine 01/09/2015 7: 48 AM CONTACT LENS BLOCKER BLOOD POTASSIUM, MIXED VENOUS Routine 01/09/2015 6:09 AM CONTACT LENS BLOCKER BLOOD HEMOGLOBIN SATURATION, MIXED VENOUS Routine 01/09/2015 6:09 AM CONTACT LENS BLOCKER BLOOD GLUCOSE, POC Routine 01/09/2015 3: 31 AM CONTACT LENS BLOCKER BLOOD HEMOGLOBIN SATURATION, MIXED VENOUS Routine 01/09/2015 3:30 AM CONTACT LENS BLOCKER BLOOD ANTIBODY IDENTIFICATION Routine 01/09/2015 3:18 AM CONTACT LENS BLOCKER BLOOD E ANTIGEN TYPE Routine 01/09/2015 12:37 AM CONTACT LENS BLOCKER BLOOD DIRECT ANTIGLOBULIN TEST Routine 01/09/2015 12:37 AM CONTACT LENS BLOCKER BLOOD ABO, RH, INDIRECT AB SCREEN Routine 01/09/2015 12:37 AM CONTACT LENS BLOCKER BLOOD GLUCOSE, POC Routine 01/09/2015 12 :33 AM CONTACT LENS BLOCKER ELECTROCARDIOGRAPHY (ECG) 01/09/2015 ELECTROCARDIOGRAPHY (ECG) 01/09/2015 ELECTROCARDIOGRAPHY (ECG) 01/09/2015 ALL MICROBIOLOGY REPORT SECTION Routine 01/09/2015 12:00 AM CONTACT LENS BLOCKER BLOOD HEMOGLOBIN SATURATION, MIXED VENOUS Routine 01/08/2015 9:56 PM CONTACT LENS BLOCKER XR CHEST 1 VIEW Routine 01/08/2015 9:30 PM CONTACT LENS BLOCKER BLOOD GAS, ARTERIAL Routine 01/08/2015 8 :15 PM CONTACT LENS BLOCKER BLOOD GLUCOSE, POC Routine 01/08/2015 7: 46 PM CONTACT LENS BLOCKER SERUM MAGNESIUM Routine 01/08/2015 7:37 PM CONTACT LENS BLOCKER PLASMA PHOSPHORUS Routine 01/08/2015 7:3 7 PM CONTACT LENS BLOCKER PLASMA BASIC METABOLIC PANEL Routine 01/08/2015 7:37 PM CONTACT LENS BLOCKER BLOOD CELL COUNT Routine 01/08/2015 7:37 PM CONTACT LENS BLOCKER BLOOD GLUCOSE, POC Routine 01/08/2015 5: 47 PM CONTACT LENS BLOCKER BLOOD HEMOGLOBIN SATURATION Routine 01/08/2015 1:51 PM CONTACT LENS BLOCKER BLOOD GLUCOSE, POC Routine 01/08/2015 12 :27 PM CONTACT LENS BLOCKER PLASMA BASIC METABOLIC PANEL Routine 01/08/2015 12:24 PM CONTACT LENS BLOCKER BLOOD LACTIC ACID Routine 01/08/2015 9:4 8 AM CONTACT LENS BLOCKER BLOOD GLUCOSE, POC Routine 01/08/2015 7: 51 AM CONTACT LENS BLOCKER BLOOD GAS, ARTERIAL Routine 01/08/2015 7 :46 AM CONTACT LENS BLOCKER SERUM LIPID PANEL Routine 01/08/2015 5:0 6 AM CONTACT LENS BLOCKER PLASMA BASIC METABOLIC PANEL Routine 01/08/2015 5:06 AM CONTACT LENS BLOCKER BLOOD HEMOGLOBIN SATURATION, MIXED VENOUS Routine 01/08/2015 5:06 AM CONTACT LENS BLOCKER BLOOD HEMOGLOBIN A1C Routine 01/08/2015 5:06 AM CONTACT LENS BLOCKER BLOOD CELL COUNT (CBC) Routine 5 5:06 AM CONTACT LENS BLOCKER BLOOD GLUCOSE, POC Routine 01/08/2015 5: 01 AM CONTACT LENS BLOCKER BLOOD GLUCOSE, POC Routine 01/08/2015 4: 20 AM CONTACT LENS BLOCKER XR CHEST 1 VIEW Routine 01/08/2015 3:34 AM CONTACT LENS BLOCKER BLOOD GLUCOSE, POC Routine 01/08/2015 3: 07 AM CONTACT LENS BLOCKER BLOOD GLUCOSE, POC Routine 01/08/2015 1: 46 AM CONTACT LENS BLOCKER BLOOD GLUCOSE, POC Routine 01/08/2015 12 :55 AM CONTACT LENS BLOCKER BLOOD GLUCOSE, POC Routine 01/07/2015 11 :57 PM CONTACT LENS BLOCKER BLOOD GLUCOSE, POC Routine 01/07/2015 10 :57 PM CONTACT LENS BLOCKER SERUM MAGNESIUM Routine 01/07/2015 10:02 PM CONTACT LENS BLOCKER PLASMA PHOSPHORUS Routine 01/07/2015 10: 02 PM CONTACT LENS BLOCKER PLASMA BASIC METABOLIC PANEL Routine 01/07/2015 10:02 PM CONTACT LENS BLOCKER BLOOD CELL COUNT Routine 01/07/2015 10:0 2 PM CONTACT LENS BLOCKER BLOOD GLUCOSE, POC Routine 01/07/2015 10 :01 PM CONTACT LENS BLOCKER XR CHEST 1 VIEW Routine 01/07/2015 9:32 PM CONTACT LENS BLOCKER BLOOD GLUCOSE, POC Routine 01/07/2015 8: 51 PM CONTACT LENS BLOCKER BLOOD GLUCOSE, POC Routine 01/07/2015 8: 07 PM CONTACT LENS BLOCKER BLOOD HEMOGLOBIN SATURATION Routine 01/07/2015 6:05 PM CONTACT LENS BLOCKER BLOOD GLUCOSE, POC Routine 01/07/2015 5: 56 PM CONTACT LENS BLOCKER BLOOD HEMOGLOBIN SATURATION, MIXED VENOUS Routine 01/07/2015 5:55 PM CONTACT LENS BLOCKER BLOOD HEMOGLOBIN SATURATION Routine 01/07/2015 5:55 PM CONTACT LENS BLOCKER BLOOD GAS, ARTERIAL Routine 01/07/2015 5 :55 PM CONTACT LENS BLOCKER BLOOD GLUCOSE, POC Routine 01/07/2015 4: 59 PM CONTACT LENS BLOCKER BLOOD GAS, ARTERIAL Routine 01/07/2015 4 :55 PM CONTACT LENS BLOCKER BLOOD GLUCOSE, POC Routine 01/07/2015 4: 15 PM CONTACT LENS BLOCKER BLOOD GAS, ARTERIAL Routine 01/07/2015 3 :50 PM CONTACT LENS BLOCKER BLOOD GLUCOSE, POC Routine 01/07/2015 3: 05 PM CONTACT LENS BLOCKER BLOOD GLUCOSE, POC Routine 01/07/2015 2: 26 PM CONTACT LENS BLOCKER XR CHEST 1 VIEW Routine 01/07/2015 2:08 PM CONTACT LENS BLOCKER BLOOD HEMOGLOBIN SATURATION, MIXED VENOUS Routine 01/07/2015 1:33 PM CONTACT LENS BLOCKER BLOOD GLUCOSE, POC Routine 01/07/2015 1: 21 PM CONTACT LENS BLOCKER BLOOD GAS, POINT OF CARE, ARTERIAL Routine 01/07/2015 12:26 PM CONTACT LENS BLOCKER BLOOD PLATELET, HEMATOCRIT POINT OF CARE Routine 01/07/2015 11:50 AM CONTACT LENS BLOCKER BLOOD GAS, POINT OF CARE, ARTERIAL Routine 01/07/2015 11:50 AM CONTACT LENS BLOCKER BLOOD HEPARIN/ACTIVATED CLOTTING TIME (ACT) Routine 01/07/2015 11:45 AM CONTACT LENS BLOCKER BLOOD HEPARIN/ACTIVATED CLOTTING TIME (ACT) Routine 01/07/2015 11:03 AM CONTACT LENS BLOCKER BLOOD GAS, POINT OF CARE, ARTERIAL Routine 01/07/2015 10:36 AM CONTACT LENS BLOCKER BLOOD HEPARIN/ACTIVATED CLOTTING TIME (ACT) Routine 01/07/2015 10:30 AM CONTACT LENS BLOCKER BLOOD HEPARIN/ACTIVATED CLOTTING TIME (ACT) Routine 01/07/2015 10:05 AM CONTACT LENS BLOCKER BLOOD GAS, POINT OF CARE, ARTERIAL Routine 01/07/2015 9:41 AM CONTACT LENS BLOCKER BLOOD HEPARIN/ACTIVATED CLOTTING TIME (ACT) Routine 01/07/2015 9:35 AM CONTACT LENS BLOCKER BLOOD HEPARIN/ACTIVATED CLOTTING TIME (ACT) Routine 01/07/2015 9:13 AM CONTACT LENS BLOCKER BLOOD GAS, POINT OF CARE, ARTERIAL Routine 01/07/2015 8:10 AM CONTACT LENS BLOCKER BLOOD HEPARIN DOSE RESPONSE Routine 01/07/2015 8:03 AM CONTACT LENS BLOCKER BLOOD GLUCOSE, POC Routine 01/07/2015 6: 38 AM CONTACT LENS BLOCKER SURGICAL PATHOLOGY 01/07/2015 BLOOD ABO, RH, INDIRECT AB SCREEN Routine 01/06/2015 1:44 PM CONTACT LENS BLOCKER documented in this encounter Results * Blood glucose, POC (01/15/2015 11:47 AM CONTACT LENS BLOCKER) Glucose, POC, bld 173 70 - 199 mg/dl HISTORICAL RESULTS Blood specimen (specimen) 01/15/2015 11:47 AM CONTACT LENS BLOCKER Bo Cuellar MD LAB BLOOD ORDERABLES Final Re sult Performing Organization Address City/[facility] Co de Phone Number HISTORICAL RESULTS * Blood glucose, POC (01/15/2015 6:46 AM CONTACT LENS BLOCKER) Glucose, POC, bld 144 70 - 199 mg/dl HISTORICAL RESULTS Blood specimen (specimen) 01/15/2015 6:46 AM CONTACT LENS BLOCKER Bo Cuellar MD LAB BLOOD ORDERABLES Final Re sult HISTORICAL RESULTS * DISCHARGE LABORATORY CUMULATIVE REPORT (01/15/2015) Narrative 01/15/2015 Ordered by an unspecified provider. Historical Provider LAB BLOOD ORDERABLES Miranda l Result * (ABNORMAL) Plasma comprehensive metabolic panel (01/14/2015 9:36 PM CONTACT LENS BLOCKER) Sodium 133(L) 135 - 145 mmol/L HISTORICAL RESULTS K, pl 4.9 3.3 - 4.9 mmol/L HISTORICAL RESULTS Chloride 100 97 - 110 mmol/L HISTORICAL RESULTS CO2 19(L) 22 - 32 mmol/L HISTORICAL RESULTS A. gap 14 0 - 16 mmol/L HISTORICAL RESULTS Glucose 204(H) 70 - 199 mg/dl HISTORICAL RESULTS BUN 19 8 - 25 mg/dl HISTORICAL RESULTS Creatinine 0.83 0.60 - 1.10 mg/dl HISTORICAL RESULTS Calcium 9.0 8.6 - 10.3 mg/dl HISTORICAL RESULTS Protein, pl 6.3(L) 6.5 - 8.5 g/dl HISTORICAL RESULTS Alb 3.2(L) 3.6 - 5.0 g/dl HISTORICAL RESULTS Bilirubin 0.2(L) 0.3 - 1.1 mg/dl HISTORICAL RESULTS Alk phos 47 38 - 126 Units/L HISTORICAL RESULTS AST 24 11 - 47 Units/L HISTORICAL RESULTS ALT 36 7 - 53 Units/L HISTORICAL RESULTS Plasma 01/14/2015 9:36 PM CONTACT LENS BLOCKER Historical Provider LAB BLOOD ORDERABLES Miranda l Result HISTORICAL RESULTS * (ABNORMAL) Blood cell count (CBC) (01/14/2015 9:36 PM CONTACT LENS BLOCKER) WBC 8.9 3.8 - 9.8 K/cumm HISTORICAL RESULTS RBC 3.17(L) 3.90 - 5.00 M/cumm HISTORICAL RESULTS Hgb 8.9(L) 12.1 - 15.1 g/dl HISTORICAL RESULTS Hct 27.3(L) 36.1 - 44.3 % HISTORICAL RESULTS MCV 86.3 80.0 - 97.6 fl HISTORICAL RESULTS MCH 28.0 26.7 - 33.7 pg HISTORICAL RESULTS MCHC 32.5(L) 32.7 - 35.5 g/dl HISTORICAL RESULTS Rdw 12.8 11.8 - 14.6 % HISTORICAL RESULTS Platelets 277 140 - 440 K/cumm HISTORICAL RESULTS MPV 8.6 6.8 - 10.4 fl HISTORICAL RESULTS Neutrophils 56.5 38.7 - 74.5 % HISTORICAL RESULTS Lymphocytes 28.4 20.0 - 54.3 % HISTORICAL RESULTS Monos 9.7 4.3 - 13.5 % HISTORICAL RESULTS Eosinophils 4.5 0.0 - 6.0 % HISTORICAL RESULTS Basophils 0.9 0.0 - 3.0 % HISTORICAL RESULTS Neutrophils, abs 5.0 1.8 - 6.6 K/cumm HISTORICAL RESULTS Lymphocytes, abs 2.5 1.2 - 3.3 K/cumm HISTORICAL RESULTS Monocytes, absolute 0.9 0.2 - 1.2 K/cumm HISTORICAL RESULTS Eosinophils, abs 0.4 0.0 - 0.5 K/cumm HISTORICAL RESULTS Basophils, abs 0.1 0.0 - 0.2 K/cumm HISTORICAL RESULTS Blood specimen (specimen) 01/14/2015 9:36 PM CONTACT LENS BLOCKER [facility] Provider LAB BLOOD ORDERABLES Miranda l Result HISTORICAL RESULTS * (ABNORMAL) Blood B-type natriuretic peptide (BNP) (01/14/2015 9:36 PM CONTACT LENS BLOCKER) Pathologist [facility] BNP 342(H) 0 - 100 pg/ml HISTORICAL RESULTS Blood specimen (specimen) 01/14/2015 9:36 PM CONTACT LENS BLOCKER Bo Cuellar MD LAB BLOOD ORDERABLES Final Re sult HISTORICAL RESULTS * (ABNORMAL) Blood glucose, POC (01/14/2015 8:36 PM CONTACT LENS BLOCKER) Glucose, POC, bld 244(H) 70 - 199 mg/dl HISTORICAL RESULTS Blood specimen (specimen) 01/14/2015 8:36 PM CONTACT LENS BLOCKER Bo Cuellar MD LAB BLOOD ORDERABLES Final Re sult Performing Organization Address [facility] Phone Number HISTORICAL RESULTS * Blood glucose, POC (01/14/2015 5:07 PM CONTACT LENS BLOCKER) Glucose, POC, bld 137 70 - 199 mg/dl HISTORICAL RESULTS Blood specimen (specimen) 01/14/2015 5:07 PM CONTACT LENS BLOCKER Bo Cuellar MD LAB BLOOD ORDERABLES Final Re sult Performing Organization Address [facility] de Phone Number HISTORICAL RESULTS * (ABNORMAL) Blood glucose, POC (01/14/2015 11:31 AM CONTACT LENS BLOCKER) Pathologist [facility] Glucose, POC, bld 223(H) 70 - 199 mg/dl HISTORICAL RESULTS Blood specimen (specimen) 01/14/2015 11:31 AM CONTACT LENS BLOCKER Bo Cuellar MD LAB BLOOD ORDERABLES Final Re sult Performing Organization Address [facility] Phone Number HISTORICAL RESULTS * Blood glucose, POC (01/14/2015 7:27 AM CONTACT LENS BLOCKER) Glucose, POC, bld 145 70 - 199 mg/dl HISTORICAL RESULTS Blood specimen (specimen) 01/14/2015 7:27 AM CONTACT LENS BLOCKER Bo Cuellar MD LAB BLOOD ORDERABLES Final Re sult Performing Organization Address [facility] de Phone Number HISTORICAL RESULTS * Plasma basic metabolic panel (01/13/2015 11:01 PM CONTACT LENS BLOCKER) Sodium 135 135 - 145 mmol/L HISTORICAL RESULTS K, pl 4.3 3.3 - 4.9 mmol/L HISTORICAL RESULTS Chloride 104 97 - 110 mmol/L HISTORICAL RESULTS CO2 22 22 - 32 mmol/L HISTORICAL RESULTS A. gap 9 0 - 16 mmol/L HISTORICAL RESULTS Glucose 163 70 - 199 mg/dl HISTORICAL RESULTS BUN 20 8 - 25 mg/dl HISTORICAL RESULTS Creatinine 0.86 0.60 - 1.10 mg/dl HISTORICAL RESULTS Calcium 8.8 8.6 - 10.3 mg/dl HISTORICAL RESULTS Plasma 01/13/2015 11:0 1 PM CONTACT LENS BLOCKER Historical Provider LAB BLOOD ORDERABLES Miranda sheldon Result HISTORICAL RESULTS * (ABNORMAL) Blood cell count (CBC) (01/13/2015 11:01 PM CONTACT LENS BLOCKER) WBC 8.2 3.8 - 9.8 K/cumm HISTORICAL RESULTS RBC 3.09(L) 3.90 - 5.00 M/cumm HISTORICAL RESULTS Hgb 8.6(L) 12.1 - 15.1 g/dl HISTORICAL RESULTS Hct 26.8(L) 36.1 - 44.3 % HISTORICAL RESULTS MCV 86.7 80.0 - 97.6 fl HISTORICAL RESULTS MCH 28.0 26.7 - 33.7 pg HISTORICAL RESULTS MCHC 32.3(L) 32.7 - 35.5 g/dl HISTORICAL RESULTS Rdw 12.8 11.8 - 14.6 % HISTORICAL RESULTS Platelets 234 140 - 440 K/cumm HISTORICAL RESULTS MPV 8.9 6.8 - 10.4 fl HISTORICAL RESULTS Neutrophils 52.6 38.7 - 74.5 % HISTORICAL RESULTS Lymphocytes 31.3 20.0 - 54.3 % HISTORICAL RESULTS Monos 11.3 4.3 - 13.5 % HISTORICAL RESULTS Eosinophils 3.6 0.0 - 6.0 % HISTORICAL RESULTS Basophils 1.2 0.0 - 3.0 % HISTORICAL RESULTS Neutrophils, abs 4.3 1.8 - 6.6 K/cumm HISTORICAL RESULTS Lymphocytes, abs 2.6 1.2 - 3.3 K/cumm HISTORICAL RESULTS Monocytes, absolute 0.9 0.2 - 1.2 K/cumm HISTORICAL RESULTS Eosinophils, abs 0.3 0.0 - 0.5 K/cumm HISTORICAL RESULTS Basophils, abs 0.1 0.0 - 0.2 K/cumm HISTORICAL RESULTS Blood specimen (specimen) 01/13/2015 11:01 PM CONTACT LENS BLOCKER Historical Provider LAB BLOOD ORDERABLES Miranda sheldon Result HISTORICAL RESULTS * Blood glucose, POC (01/13/2015 8:54 PM CONTACT LENS BLOCKER) Glucose, POC, bld 195 70 - 199 mg/dl HISTORICAL RESULTS Blood specimen (specimen) 01/13/2015 8:54 PM CONTACT LENS BLOCKER Bo Cuellar MD LAB BLOOD ORDERABLES Final Re sult Performing Organization Address [facility] de Phone Number HISTORICAL RESULTS * Blood glucose, POC (01/13/2015 5:05 PM CONTACT LENS BLOCKER) Glucose, POC, bld 129 70 - 199 mg/dl HISTORICAL RESULTS Blood specimen (specimen) 01/13/2015 5:05 PM CONTACT LENS BLOCKER Bo Cuellar MD LAB BLOOD ORDERABLES Final Re sult Performing Organization Address [facility] Phone Number HISTORICAL RESULTS * (ABNORMAL) Blood glucose, POC (01/13/2015 12:03 PM CONTACT LENS BLOCKER) Glucose, POC, bld 205(H) 70 - 199 mg/dl HISTORICAL RESULTS Blood specimen (specimen) 01/13/2015 12:03 PM CONTACT LENS BLOCKER Bo Cuellar MD LAB BLOOD ORDERABLES Final Re sult Performing Organization Address [facility] de Phone Number HISTORICAL RESULTS * CHEST RADIOGRAPHY, FRONTAL (AP), LATERAL (01/13/2015 11:37 AM CONTACT LENS BLOCKER) Anatomical Region Laterality Modality N/A Radiographic Karla ging 01/13/2015 11:3 7 AM CONTACT LENS BLOCKER Narrative 01/13/2015 4:25 PM CONTACT LENS BLOCKER CAROLYNN DUKE M.D. FINAL REPORT ACC# ??Date Time ??Exam [id number] Jan 13, 2015 11:37:00 [id number] Chest 2 views Front&Lat EXAMINATION: ?CHEST, TWO VIEWS, FRONTAL AND LATERAL IMPRESSION: ?? Right internal jugular central venous line remains in place with tip in the superior vena cava. Changes of median sternotomy with mitral valve and tricuspid valve annuloplasty seen noted. 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 Small residual bibasilar pleural effusions and mild bibasilar atelectasis noted. Tiny amount of residual pneumomediastinum seen. No pneumothorax seen. Cardiomediastinal silhoette is stable. Wedge compression deformity of the L1 vertebral body again seen. Requested By: SARAH BETH ALMANZAR Dictated By: ?? CAROLYNN DUKE M.D. ??on Jan 13 2015 ??4:25P This document has been electronically signed by: CAROLYNN DUKE M.D. on Jan 13 2015 ??4:25P [id number] Procedure Note Provider, Edward, - 06/22/2016 CAROLYNN DUKE M.D. FINAL REPORT ACC# Date Time Exam [id number] Jan 13, 2015 11:37:00 [id number] Chest 2 views Front&Lat EXAMINATION: CHEST, TWO VIEWS, FRONTAL AND LATERAL IMPRESSION: Right internal jugular central venous line remains in place with tip in the superior vena cava. Changes of median sternotomy with mitral valve and tricuspid valve annuloplasty seen noted. 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 Small residual bibasilar pleural effusions and mild bibasilar atelectasis noted. Tiny amount of residual pneumomediastinum seen. No pneumothorax seen. Cardiomediastinal silhoette is stable. Wedge compression deformity of the L1 vertebral body again seen. Requested By: SARAH BETH ALMANZAR Dictated By: CAROLYNN DUKE M.D. on Jan 13 2015 4:25P This document has been electronically signed by: CAROLYNN DUKE M.D. on Jan 13 2015 4:25P [id number] us Historical Provider IMAngel XR PROCEDURES Final R esult * Blood glucose, POC (01/13/2015 7:29 AM CONTACT LENS BLOCKER) Glucose, POC, bld 136 70 - 199 mg/dl HISTORICAL RESULTS Blood specimen (specimen) 01/13/2015 7:29 AM CONTACT LENS BLOCKER Bo Cuellar MD LAB BLOOD ORDERABLES Final Re sult Performing Organization Address City/[facility] Co de Phone Number HISTORICAL RESULTS * (ABNORMAL) Plasma basic metabolic panel (01/12/2015 11:40 PM CONTACT LENS BLOCKER) Sodium 136 135 - 145 mmol/L HISTORICAL RESULTS K, pl 4.1 3.3 - 4.9 mmol/L HISTORICAL RESULTS Chloride 105 97 - 110 mmol/L HISTORICAL RESULTS CO2 20(L) 22 - 32 mmol/L HISTORICAL RESULTS A. gap 11 0 - 16 mmol/L HISTORICAL RESULTS Glucose 191 70 - 199 mg/dl HISTORICAL RESULTS BUN 21 8 - 25 mg/dl HISTORICAL RESULTS Creatinine 0.85 0.60 - 1.10 mg/dl HISTORICAL RESULTS Calcium 8.7 8.6 - 10.3 mg/dl HISTORICAL RESULTS Plasma 01/12/2015 11:4 0 PM CONTACT LENS BLOCKER Angela Bledsoe NP LAB BLOOD ORDERABLES Final Result Performing Organization Address [facility] de Phone Number HISTORICAL RESULTS * (ABNORMAL) Blood cell count [CBC] express (01/12/2015 11:40 PM CONTACT LENS BLOCKER) WBC 8.3 3.8 - 9.8 K/cumm HISTORICAL RESULTS RBC 3.06(L) 3.90 - 5.00 M/cumm HISTORICAL RESULTS Hgb 8.7(L) 12.1 - 15.1 g/dl HISTORICAL RESULTS Hct 26.6(L) 36.1 - 44.3 % HISTORICAL RESULTS MCV 86.9 80.0 - 97.6 fl HISTORICAL RESULTS MCH 28.4 26.7 - 33.7 pg HISTORICAL RESULTS MCHC 32.7 32.7 - 35.5 g/dl HISTORICAL RESULTS Rdw 13.1 11.8 - 14.6 % HISTORICAL RESULTS Platelets 205 140 - 440 K/cumm HISTORICAL RESULTS MPV 8.9 6.8 - 10.4 fl HISTORICAL RESULTS Blood specimen (specimen) 01/12/2015 11:40 PM CONTACT LENS BLOCKER Angela Bledsoe [employer] LAB BLOOD ORDERABLES Final Result Performing Organization Address [facility] Phone Number HISTORICAL RESULTS * (ABNORMAL) Blood glucose, POC (01/12/2015 8:54 PM CONTACT LENS BLOCKER) Glucose, POC, bld 289(H) 70 - 199 mg/dl HISTORICAL RESULTS Blood specimen (specimen) 01/12/2015 8:54 PM CONTACT LENS BLOCKER Bo Cuellar MD LAB BLOOD ORDERABLES Final Re sult Performing Organization Address [facility] de Phone Number HISTORICAL RESULTS * Blood glucose, POC (01/12/2015 4:59 PM CONTACT LENS BLOCKER) Glucose, POC, bld 153 70 - 199 mg/dl HISTORICAL RESULTS Blood specimen (specimen) 01/12/2015 4:59 PM CONTACT LENS BLOCKER Bo Cuellar MD LAB BLOOD ORDERABLES Final Re sult Performing Organization Address [facility] Phone Number HISTORICAL RESULTS * Blood glucose, POC (01/12/2015 11:28 AM CONTACT LENS BLOCKER) Glucose, POC, bld 190 70 - 199 mg/dl HISTORICAL RESULTS Blood specimen (specimen) 01/12/2015 11:28 AM CONTACT LENS BLOCKER Bo Cuellar MD LAB BLOOD ORDERABLES Final Re sult Performing Organization Address [facility] de Phone Number HISTORICAL RESULTS * Blood glucose, POC (01/12/2015 7:25 AM CONTACT LENS BLOCKER) Glucose, POC, bld 127 70 - 199 mg/dl HISTORICAL RESULTS Blood specimen (specimen) 01/12/2015 7:25 AM CONTACT LENS BLOCKER Bo Cuellar MD LAB BLOOD ORDERABLES Final Re sult Performing Organization Address [facility] de Phone Number HISTORICAL RESULTS * (ABNORMAL) Plasma comprehensive metabolic panel (01/11/2015 11:44 PM CONTACT LENS BLOCKER) Sodium 136 135 - 145 mmol/L HISTORICAL RESULTS K, pl 4.7 3.3 - 4.9 mmol/L HISTORICAL RESULTS Chloride 104 97 - 110 mmol/L HISTORICAL RESULTS CO2 21(L) 22 - 32 mmol/L HISTORICAL RESULTS A. gap 11 0 - 16 mmol/L HISTORICAL RESULTS Glucose 145 70 - 199 mg/dl HISTORICAL RESULTS BUN 21 8 - 25 mg/dl HISTORICAL RESULTS Creatinine 0.86 0.60 - 1.10 mg/dl HISTORICAL RESULTS Calcium 8.6 8.6 - 10.3 mg/dl HISTORICAL RESULTS Protein, pl 6.2(L) 6.5 - 8.5 g/dl HISTORICAL RESULTS Alb 3.4(L) 3.6 - 5.0 g/dl HISTORICAL RESULTS Bilirubin 0.3 0.3 - 1.1 mg/dl HISTORICAL RESULTS Alk phos 46 38 - 126 Units/L HISTORICAL RESULTS AST 38 11 - 47 Units/L HISTORICAL RESULTS ALT 64(H) 7 - 53 Units/L HISTORICAL RESULTS Plasma 01/11/2015 11:4 4 PM CONTACT LENS BLOCKER Angela Bledsoe [employer] LAB BLOOD ORDERABLES Final Result HISTORICAL RESULTS * (ABNORMAL) Blood cell count [CBC] express (01/11/2015 11:44 PM CONTACT LENS BLOCKER) Pathologist [facility] WBC 10.3(H) 3.8 - 9.8 K/cumm HISTORICAL RESULTS RBC 3.22(L) 3.90 - 5.00 M/cumm HISTORICAL RESULTS Hgb 9.1(L) 12.1 - 15.1 g/dl HISTORICAL RESULTS Hct 28.1(L) 36.1 - 44.3 % HISTORICAL RESULTS MCV 87.4 80.0 - 97.6 fl HISTORICAL RESULTS MCH 28.2 26.7 - 33.7 pg HISTORICAL RESULTS MCHC 32.3(L) 32.7 - 35.5 g/dl HISTORICAL RESULTS Rdw 13.1 11.8 - 14.6 % HISTORICAL RESULTS Platelets 178 140 - 440 K/cumm HISTORICAL RESULTS MPV 9.6 6.8 - 10.4 fl HISTORICAL RESULTS Blood specimen (specimen) 01/11/2015 11:44 PM CONTACT LENS BLOCKER Angela Bledsoe NP LAB BLOOD ORDERABLES Final Result Performing Organization Address [facility] de Phone Number HISTORICAL RESULTS * Blood glucose, POC (01/11/2015 8:32 PM CONTACT LENS BLOCKER) Glucose, POC, bld 170 70 - 199 mg/dl HISTORICAL RESULTS Blood specimen (specimen) 01/11/2015 8:32 PM CONTACT LENS BLOCKER Bo Cuellar MD LAB BLOOD ORDERABLES Final Re sult Performing Organization Address [facility] de Phone Number HISTORICAL RESULTS * Blood glucose, POC (01/11/2015 4:47 PM CONTACT LENS BLOCKER) Glucose, POC, bld 158 70 - 199 mg/dl HISTORICAL RESULTS Blood specimen (specimen) 01/11/2015 4:47 PM CONTACT LENS BLOCKER Bo Cuellar MD LAB BLOOD ORDERABLES Final Re sult Performing Organization Address [facility] de Phone Number HISTORICAL RESULTS * Blood glucose, POC (01/11/2015 11:16 AM CONTACT LENS BLOCKER) Glucose, POC, bld 173 70 - 199 mg/dl HISTORICAL RESULTS Blood specimen (specimen) 01/11/2015 11:16 AM CONTACT LENS BLOCKER Bo Cuellar MD LAB BLOOD ORDERABLES Final Re sult Performing Organization Address [facility] de Phone Number HISTORICAL RESULTS * Blood glucose, POC (01/11/2015 6:50 AM CONTACT LENS BLOCKER) Glucose, POC, bld 126 70 - 199 mg/dl HISTORICAL RESULTS Blood specimen (specimen) 01/11/2015 6:50 AM CONTACT LENS BLOCKER Bo Cuellar MD LAB BLOOD ORDERABLES Final Re sult Performing Organization Address [facility]/ZIP Co de Phone Number HISTORICAL RESULTS * Plasma basic metabolic panel (01/10/2015 9:49 PM CONTACT LENS BLOCKER) Sodium 138 135 - 145 mmol/L HISTORICAL RESULTS K, pl 3.9 3.3 - 4.9 mmol/L HISTORICAL RESULTS Chloride 104 97 - 110 mmol/L HISTORICAL RESULTS CO2 22 22 - 32 mmol/L HISTORICAL RESULTS A. gap 12 0 - 16 mmol/L HISTORICAL RESULTS Glucose 174 70 - 199 mg/dl HISTORICAL RESULTS BUN 22 8 - 25 mg/dl HISTORICAL RESULTS Creatinine 0.78 0.60 - 1.10 mg/dl HISTORICAL RESULTS Calcium 8.8 8.6 - 10.3 mg/dl HISTORICAL RESULTS Plasma 01/10/2015 9:49 PM CONTACT LENS BLOCKER Camille Fernandez [facility] LAB BLOOD ORDERABLES Miranda sheldon Result HISTORICAL RESULTS * (ABNORMAL) Blood cell count (CBC) (01/10/2015 9:49 PM CONTACT LENS BLOCKER) Pathologist [facility] WBC 10.1(H) 3.8 - 9.8 K/cumm HISTORICAL RESULTS RBC 3.37(L) 3.90 - 5.00 M/cumm HISTORICAL RESULTS Hgb 9.6(L) 12.1 - 15.1 g/dl HISTORICAL RESULTS Hct 29.1(L) 36.1 - 44.3 % HISTORICAL RESULTS MCV 86.4 80.0 - 97.6 fl HISTORICAL RESULTS MCH 28.4 26.7 - 33.7 pg HISTORICAL RESULTS MCHC 32.9 32.7 - 35.5 g/dl HISTORICAL RESULTS Rdw 13.6 11.8 - 14.6 % HISTORICAL RESULTS Platelets 141 140 - 440 K/cumm HISTORICAL RESULTS MPV 9.9 6.8 - 10.4 fl HISTORICAL RESULTS Neutrophils 70.8 38.7 - 74.5 % HISTORICAL RESULTS Lymphocytes 20.3 20.0 - 54.3 % HISTORICAL RESULTS Monos 7.4 4.3 - 13.5 % HISTORICAL RESULTS Eosinophils 1.1 0.0 - 6.0 % HISTORICAL RESULTS Basophils 0.4 0.0 - 3.0 % HISTORICAL RESULTS Neutrophils, abs 7.2(H) 1.8 - 6.6 K/cumm HISTORICAL RESULTS Lymphocytes, abs 2.1 1.2 - 3.3 K/cumm HISTORICAL RESULTS Monocytes, absolute 0.8 0.2 - 1.2 K/cumm HISTORICAL RESULTS Eosinophils, abs 0.1 0.0 - 0.5 K/cumm HISTORICAL RESULTS Basophils, abs 0.0 0.0 - 0.2 K/cumm HISTORICAL RESULTS Blood specimen (specimen) 01/10/2015 9:49 PM CONTACT LENS BLOCKER Camille Fernandez [facility] [employer] LAB BLOOD ORDERABLES Miranda l Result Performing Organization Address [facility] de Phone Number HISTORICAL RESULTS * (ABNORMAL) Blood B-type natriuretic peptide (BNP) (01/10/2015 9:49 PM CONTACT LENS BLOCKER) BNP 301(H) 0 - 100 pg/ml HISTORICAL RESULTS Blood specimen (specimen) 01/10/2015 9:49 PM CONTACT LENS BLOCKER Camille Fernandez [facility] [employer] LAB BLOOD ORDERABLES Miranda l Result Performing Organization Address [facility] de Phone Number HISTORICAL RESULTS * Blood glucose, POC (01/10/2015 9:35 PM CONTACT LENS BLOCKER) Glucose, POC, bld 198 70 - 199 mg/dl HISTORICAL RESULTS Blood specimen (specimen) 01/10/2015 9:35 PM CONTACT LENS BLOCKER Bo Cuellar MD LAB BLOOD ORDERABLES Final Re sult Performing Organization Address [facility] de Phone Number HISTORICAL RESULTS * Blood glucose, POC (01/10/2015 4:59 PM CONTACT LENS BLOCKER) Glucose, POC, bld 124 70 - 199 mg/dl HISTORICAL RESULTS Blood specimen (specimen) 01/10/2015 4:59 PM CONTACT LENS BLOCKER Bo Cuellar MD LAB BLOOD ORDERABLES Final Re sult Performing Organization Address [facility] de Phone Number HISTORICAL RESULTS * CHEST RADIOGRAPHY, FRONTAL (AP), LATERAL (01/10/2015 2:50 PM CONTACT LENS BLOCKER) Anatomical Region Laterality Modality N/A Radiographic Karla ging 01/10/2015 2:50 PM CONTACT LENS BLOCKER Narrative 01/10/2015 7:47 PM CONTACT LENS BLOCKER Bryan DAHL M.D. FINAL REPORT The radiology attending physician has personally reviewed this study, and has reviewed and/or edited this written report and agrees with it. ACC# ??Date Time ??Exam [id number] Jan 10, 2015 14:50:00 [id number] Chest 2 views Front&Lat EXAMINATION: ?? Chest 2 Views IMPRESSION: ?? Comparison 01/08/2015. Median sternotomy wires are aligned and intact. Right internal jugular central venous catheter tip overlies the superior vena cava. There are postoperative changes of tricuspid and mitral valve repair. Temporary epicardial pacer wires and multiple mediastinal clips are noted. There are small bilateral pleural effusions and mild bibasilar atelectasis, left greater than right. No focal consolidations or pneumothorax. The cardiomediastinal silhouette is unchanged in size. A tiny amount of pneumomediastinum is seen on the lateral view posterior to the inferior sternum. L1 vertebral body compression deformity is unchanged dating to 12/30/2014. Requested By: CAMILLE BRADSHAW Dictated By: ?? JIMBO MORRISON M.D. ??on Jan 10 2015 ??3:18P This document has been electronically signed by: CAROLYNN DUKE M.D. on Jan 10 2015 ??7:47P [id number] Procedure Note Provider, MD Edward - 06/22/2016 Bryan DAHL M.D. FINAL REPORT The radiology attending physician has personally reviewed this study, and has reviewed and/or edited this written report and agrees with it. ACC# Date Time Exam [id number] Jan 10, 2015 14:50:00 [id number] Chest 2 views Front&Lat EXAMINATION: Chest 2 Views IMPRESSION: Comparison 01/08/2015. Median sternotomy wires are aligned and intact. Right internal jugular central venous catheter tip overlies the superior vena cava. There are postoperative changes of tricuspid and mitral valve repair. Temporary epicardial pacer wires and multiple mediastinal clips are noted. There are small bilateral pleural effusions and mild bibasilar atelectasis, left greater than right. No focal consolidations or pneumothorax. The cardiomediastinal silhouette is unchanged in size. A tiny amount of pneumomediastinum is seen on the lateral view posterior to the inferior sternum. L1 vertebral body compression deformity is unchanged dating to 12/30/2014. Requested By: CAMILLE BRADSHAW ANP Dictated By: JIMBO MORRISON M.D. on Jan 10 2015 3:18P This document has been electronically signed by: CAROLYNN DUKE M.D. on Jan 10 2015 7:47P [id number] Historical Provider IMG XR PROCEDURES Final R esult * Blood glucose, POC (01/10/2015 11:38 AM CONTACT LENS BLOCKER) Glucose, POC, bld 197 70 - 199 mg/dl HISTORICAL RESULTS Blood specimen (specimen) 01/10/2015 11:38 AM CONTACT LENS BLOCKER Bo Cuellar MD LAB BLOOD ORDERABLES Final Re sult Performing Organization Address [facility] de Phone Number HISTORICAL RESULTS * Blood glucose, POC (01/10/2015 7:11 AM CONTACT LENS BLOCKER) Glucose, POC, bld 101 70 - 199 mg/dl HISTORICAL RESULTS Blood specimen (specimen) 01/10/2015 7:11 AM CONTACT LENS BLOCKER Bo Cuellar MD LAB BLOOD ORDERABLES Final Re sult Performing Organization Address City/[facility] Co de Phone Number HISTORICAL RESULTS * (ABNORMAL) Plasma basic metabolic panel (01/09/2015 10:57 PM CONTACT LENS BLOCKER) Sodium 140 135 - 145 mmol/L HISTORICAL RESULTS K, pl 3.7 3.3 - 4.9 mmol/L HISTORICAL RESULTS Chloride 104 97 - 110 mmol/L HISTORICAL RESULTS CO2 26 22 - 32 mmol/L HISTORICAL RESULTS A. gap 10 0 - 16 mmol/L HISTORICAL RESULTS Glucose 116 70 - 199 mg/dl HISTORICAL RESULTS BUN 25 8 - 25 mg/dl HISTORICAL RESULTS Creatinine 0.89 0.60 - 1.10 mg/dl HISTORICAL RESULTS Calcium 8.2(L) 8.6 - 10.3 mg/dl HISTORICAL RESULTS Plasma 01/09/2015 10:5 7 PM CONTACT LENS BLOCKER Historical Provider LAB BLOOD ORDERABLES Miranda l Result Performing Organization Address [facility] de Phone Number HISTORICAL RESULTS * (ABNORMAL) Plasma phosphorus (01/09/2015 10:57 PM CONTACT LENS BLOCKER) Phosphorus, pl 1.8(L) 2.3 - 4.3 mg/dl HISTORICAL RESULTS Plasma 01/09/2015 10:5 7 PM CONTACT LENS BLOCKER Result [facility] Historical Provider LAB BLOOD ORDERABLES Miranda l Result Performing Organization Address [facility] de Phone Number HISTORICAL RESULTS * Serum magnesium (01/09/2015 10:57 PM CONTACT LENS BLOCKER) Magnesium 2.1 1.4 - 2.5 mg/dl HISTORICAL RESULTS Serum 01/09/2015 10:5 7 PM CONTACT LENS BLOCKER Result [facility] Historical Provider LAB BLOOD ORDERABLES Miranda l Result Performing Organization Address [facility] de Phone Number HISTORICAL RESULTS * (ABNORMAL) Blood cell count [CBC] express (01/09/2015 10:57 PM CONTACT LENS BLOCKER) WBC 10.5(H) 3.8 - 9.8 K/cumm HISTORICAL RESULTS RBC 3.16(L) 3.90 - 5.00 M/cumm HISTORICAL RESULTS Hgb 8.8(L) 12.1 - 15.1 g/dl HISTORICAL RESULTS Hct 27.5(L) 36.1 - 44.3 % HISTORICAL RESULTS MCV 86.9 80.0 - 97.6 fl HISTORICAL RESULTS MCH 27.9 26.7 - 33.7 pg HISTORICAL RESULTS MCHC 32.1(L) 32.7 - 35.5 g/dl HISTORICAL RESULTS Rdw 13.6 11.8 - 14.6 % HISTORICAL RESULTS Platelets 101(L) 140 - 440 K/cumm HISTORICAL RESULTS MPV 10.1 6.8 - 10.4 fl HISTORICAL RESULTS Blood specimen (specimen) 01/09/2015 10:57 PM CONTACT LENS BLOCKER Historical Provider LAB BLOOD ORDERABLES Miranda l Result Performing Organization Address [facility] de Phone Number HISTORICAL RESULTS * Blood glucose, POC (01/09/2015 10:47 PM CONTACT LENS BLOCKER) Glucose, POC, bld 122 70 - 199 mg/dl HISTORICAL RESULTS Blood specimen (specimen) 01/09/2015 10:47 PM CONTACT LENS BLOCKER Bo Cuellar MD LAB BLOOD ORDERABLES Final Re sult Performing Organization Address [facility] Phone Number HISTORICAL RESULTS * Blood glucose, POC (01/09/2015 4:51 PM CONTACT LENS BLOCKER) Glucose, POC, bld 137 70 - 199 mg/dl HISTORICAL RESULTS Blood specimen (specimen) 01/09/2015 4:51 PM CONTACT LENS BLOCKER Bo Cuellar MD LAB BLOOD ORDERABLES Final Re sult Performing Organization Address [facility] de Phone Number HISTORICAL RESULTS * Methicillin-resistant Staphylococcus aureus (MRSA) surveillance culture (01/09/2015 2:46 PM CONTACT LENS BLOCKER) Nasal (Unknown) 01/09/2015 2 :46 PM CONTACT LENS BLOCKER 01/09/2015 3:44 PM CONTACT LENS BLOCKER Impressions HISTORICAL RESULTS - 01/11/2015 9:13 AM CONTACT LENS BLOCKER This test is for Infection Prevention surveillance; no charge to the patient. Narrative HISTORICAL RESULTS - 01/11/2015 9:13 AM CONTACT LENS BLOCKER Negative Historical Provider LAB MICROBIOLOGY - GENERA L ORDERABLES Final Result Performing Organization Address [facility] de Phone Number HISTORICAL RESULTS * (ABNORMAL) Blood hemoglobin saturation (01/09/2015 2:17 PM CONTACT LENS BLOCKER) [facility] O2 content, venous 9 volume % O2 HISTORICAL RESULTS Hgb, central noris 9.8(L) 12.1 - 15.1 g/dl HISTORICAL RESULTS OxyHb, central noris 65.1 60.0 - 85.0 % HISTORICAL RESULTS COHb, central noris 1.6 0.0 - 2.9 % HISTORICAL RESULTS MetHb, central noris 0.7 0.0 - 1.9 % HISTORICAL RESULTS Blood specimen (specimen) 01/09/2015 2:17 PM CONTACT LENS BLOCKER Historical Provider LAB BLOOD ORDERABLES Miranda l Result Performing Organization Address [facility] Co de Phone Number HISTORICAL RESULTS * Blood glucose, POC (01/09/2015 12:28 PM CONTACT LENS BLOCKER) [facility] Glucose, POC, bld 161 70 - 199 mg/dl HISTORICAL RESULTS Blood specimen (specimen) 01/09/2015 12:28 PM CONTACT LENS BLOCKER Bo Cuellar MD LAB BLOOD ORDERABLES Final Re sult Performing Organization Address [facility] Co de Phone Number HISTORICAL RESULTS * Blood potassium, mixed venous (01/09/2015 9:29 AM CONTACT LENS BLOCKER) [facility] Potassium, bld 4.2 3.3 - 4.9 mmol/L HISTORICAL RESULTS Mixed venous blood 01/09/2015 9:29 AM CONTACT LENS BLOCKER Historical Provider LAB BLOOD ORDERABLES Miranda l Result Performing Organization Address [facility] Co de Phone Number HISTORICAL RESULTS * (ABNORMAL) Plasma basic metabolic panel (01/09/2015 9:29 AM CONTACT LENS BLOCKER) [facility] Sodium 136 135 - 145 mmol/L HISTORICAL RESULTS K, pl 4.3 3.3 - 4.9 mmol/L HISTORICAL RESULTS Chloride 103 97 - 110 mmol/L HISTORICAL RESULTS CO2 20(L) 22 - 32 mmol/L HISTORICAL RESULTS A. gap 13 0 - 16 mmol/L HISTORICAL RESULTS Glucose 131 70 - 199 mg/dl HISTORICAL RESULTS BUN 26(H) 8 - 25 mg/dl HISTORICAL RESULTS Creatinine 0.87 0.60 - 1.10 mg/dl HISTORICAL RESULTS Calcium 8.5(L) 8.6 - 10.3 mg/dl HISTORICAL RESULTS Plasma 01/09/2015 9:29 AM CONTACT LENS BLOCKER Result [facility] Historical Provider LAB BLOOD ORDERABLES Miranda sheldon Result Performing Organization Address [facility] Co de Phone Number HISTORICAL RESULTS * Blood glucose, POC (01/09/2015 7:48 AM CONTACT LENS BLOCKER) Glucose, POC, bld 106 70 - 199 mg/dl HISTORICAL RESULTS Blood specimen (specimen) 01/09/2015 7:48 AM CONTACT LENS BLOCKER Result [facility] Bo Cuellar MD LAB BLOOD ORDERABLES Final Re sult Performing Organization Address [facility] de Phone Number HISTORICAL RESULTS * (ABNORMAL) Blood hemoglobin saturation, mixed venous (01/09/2015 6:09 AM CONTACT LENS BLOCKER) Hgb estimated, noris 9.5(L) 12.1 - 15.1 g/dl HISTORICAL RESULTS Oxyhb, noris 68.8 60.0 - 85.0 % HISTORICAL RESULTS Cohb, noris 1.4 0.0 - 2.9 % HISTORIC AL RESULTS MetHb, noris 1.2 0.0 - 1.9 % HISTORI PAOLA RESULTS O2 content, venous 9 volume % O2 HISTORICAL RESULTS Mixed venous blood 01/09/2015 6:09 AM CONTACT LENS BLOCKER Result [facility] Historical Provider LAB BLOOD ORDERABLES Miranda l Result Performing Organization Address [facility] Co de Phone Number HISTORICAL RESULTS * Blood potassium, mixed venous (01/09/2015 6:09 AM CONTACT LENS BLOCKER) Potassium, bld 3.6 3.3 - 4.9 mmol/L HISTORICAL RESULTS Mixed venous blood 01/09/2015 6:09 AM CONTACT LENS BLOCKER Result [facility] Historical Provider LAB BLOOD ORDERABLES Miranda l Result Performing Organization Address [facility] de Phone Number HISTORICAL RESULTS * Blood glucose, POC (01/09/2015 3:31 AM CONTACT LENS BLOCKER) Glucose, POC, bld 123 70 - 199 mg/dl HISTORICAL RESULTS Blood specimen (specimen) 01/09/2015 3:31 AM CONTACT LENS BLOCKER Bo Cuellar MD LAB BLOOD ORDERABLES Final Re sult Performing Organization Address [facility] de Phone Number HISTORICAL RESULTS * (ABNORMAL) Blood hemoglobin saturation, mixed venous (01/09/2015 3:30 AM CONTACT LENS BLOCKER) O2 content, venous 9 volume % O2 HISTORICAL RESULTS Hgb estimated, noris 9.4(L) 12.1 - 15.1 g/dl HISTORICAL RESULTS Oxyhb, noris 67.7 60.0 - 85.0 % HISTORICAL RESULTS Cohb, noris 1.5 0.0 - 2.9 % HISTORIC AL RESULTS MetHb, noris 1.1 0.0 - 1.9 % HISTORI PAOLA RESULTS Mixed venous blood 01/09/2015 3:30 AM CONTACT LENS BLOCKER Historical Provider LAB BLOOD ORDERABLES Miranda sheldon Result Performing Organization Address [facility] de Phone Number HISTORICAL RESULTS * Blood antibody identification (01/09/2015 3:18 AM CONTACT LENS BLOCKER) RBC ab, ID #1 Anti-E HISTOR ICAL RESULTS Comment:{Prev. Anti D ad AUS are not reacting.} Blood specimen (specimen) 01/09/2015 3:18 AM CONTACT LENS BLOCKER Historical Provider LAB BLOOD ORDERABLES Miranda sheldon Result Performing Organization Address [facility] de Phone Number HISTORICAL RESULTS * Blood direct antiglobulin test (01/09/2015 12:37 AM CONTACT LENS BLOCKER) Ramón, direct, polyspecific Negative HISTORICAL RESULTS Blood specimen (specimen) 01/09/2015 12:37 AM CONTACT LENS BLOCKER Historical Provider LAB BLOOD ORDERABLES Miranda l Result Performing Organization Address [facility] de Phone Number HISTORICAL RESULTS * Blood E antigen type (01/09/2015 12:37 AM CONTACT LENS BLOCKER) RBC phenotyping, E ag Negative HISTORICAL RESULTS Blood specimen (specimen) 01/09/2015 12:37 AM CONTACT LENS BLOCKER Historical Provider LAB BLOOD ORDERABLES Miranda l Result Performing Organization Address [facility] de Phone Number HISTORICAL RESULTS * (ABNORMAL) Blood ABO, Rh, indirect ab screen (01/09/2015 12:37 AM CONTACT LENS BLOCKER) ABO, Rho(D) O Negative HISTORI PAOLA RESULTS Ramón, indirect Positive(A) HISTORICAL RESULTS Blood specimen (specimen) 01/09/2015 12:37 AM CONTACT LENS BLOCKER Historical Provider LAB BLOOD ORDERABLES Miranda l Result Performing Organization Address [facility] de Phone Number HISTORICAL RESULTS * Blood glucose, POC (01/09/2015 12:33 AM CONTACT LENS BLOCKER) Pathologist [facility] Glucose, POC, bld 133 70 - 199 mg/dl HISTORICAL RESULTS Blood specimen (specimen) 01/09/2015 12:33 AM CONTACT LENS BLOCKER Bo Cuellar MD LAB BLOOD ORDERABLES Final Re sult Performing Organization Address [facility] de Phone Number HISTORICAL RESULTS * All Microbiology Report Section (01/09/2015 12:00 AM CONTACT LENS BLOCKER) 01/09/2015 Narrative HISTORICAL RESULTS - 01/11/2015 9:58 AM CONTACT LENS BLOCKER ? [facility] ?[facility] [address] [address] ? Patient Name: ??YULIANA SINGH ? Med Rec Number: [id number] ? Fin Number: ?[id number] ? Date: ?1940 ? Sex/Age: ? Female 74 years ? Admit Date: ?01/07/2015 ? Discharge Date: ? Doctor: ?Polo , Bo S ? Facility: ?[facility] ? Location: ?[id number] ?* Abnormal ??A Alert ??f Footnote ??^ Corrected ??L Low ??H High ?i Interp Data ??@ Ref Lab ? Chart Type:Cumulative ?* * * * MICROBIOLOGY - MISCELLANEOUS * * * * ?PROCEDURE: MRSA Surveillance Culture ? SOURCE: Nasal ? COLLECTED: 11/12/15 ??1446 ?BODY SITE: ? STARTED: 01/09/15 ??1544 ? FREE TEXT SOURCE: ? FINAL REPORT ? REPORTED: 01/11/15 0913 ? Negative ?* * * ??Interpretive Results ??* * * ? (1)This test is for Infection Prevention surveillance; no charge to ? the patient. ? Result [facility] Provider LAB MICROBIOLOGY - GENERA L ORDERABLES Final Result HISTORICAL RESULTS * ELECTROCARDIOGRAPHY (ECG) (01/09/2015) Narrative 01/09/2015 Ordered by an unspecified provider. Historical Provider MD ECG ORDERABLES Final Res ult * ELECTROCARDIOGRAPHY (ECG) (01/09/2015) Narrative 01/09/2015 Ordered by an unspecified provider. Historical Provider MD ECG ORDERABLES Final Res ult * ELECTROCARDIOGRAPHY (ECG) (01/09/2015) Narrative 01/09/2015 Ordered by an unspecified provider. Historical Provider ECG ORDERABLES Final Res ult * (ABNORMAL) Blood hemoglobin saturation, mixed venous (01/08/2015 9:56 PM CONTACT LENS BLOCKER) O2 content, venous 8 volume % O2 HISTORICAL RESULTS Hgb estimated, noris 9.1(L) 12.1 - 15.1 g/dl HISTORICAL RESULTS Oxyhb, noris 61.3 60.0 - 85.0 % HISTORICAL RESULTS Cohb, noris 1.6 0.0 - 2.9 % HISTORIC AL RESULTS MetHb, noris 1.2 0.0 - 1.9 % HISTORI PAOLA RESULTS Mixed venous blood 01/08/2015 9:56 PM CONTACT LENS BLOCKER us Historical Provider LAB BLOOD ORDERABLES Miranda l Result HISTORICAL RESULTS * XR Chest 1 View (01/08/2015 9:30 PM CONTACT LENS BLOCKER) Anatomical Region Laterality Modality Body, Chest N/A Radiographic Karla ging 01/08/2015 9:30 PM CONTACT LENS BLOCKER Narrative 01/09/2015 1:16 PM CONTACT LENS BLOCKER BASIM BAH M.D. RENETTA VALERIO M.D. FINAL REPORT The radiology attending physician has personally reviewed this study, and has reviewed and/or edited this written report and agrees with it. ACC# ??Date Time ??Exam [id number] Jan 08, 2015 21:30:00 [id number] Chest 1 view Frontal EXAMINATION: ?? Chest 1 view IMPRESSION: ?? Comparison is made to chest radiograph dated 01/08/2015 at 3:34 a.m. The tip of the right internal jugular central venous catheter overlies the superior vena cava and the tip of the right pulmonary artery catheter overlies the main pulmonary artery. Median sternotomy wires remain aligned and intact. 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 Two drains overlie the mediastinum. Surgical clips overlie the left chest wall and left axilla. Lung volumes are small. Mild pulmonary edema has improved. There are tiny bilateral pleural effusions with associated minimal atelectasis. No pneumothorax is seen. The cardiomediastinal silhouette is stable. Requested By: SANTIAGO MENG [facility] Dictated By: ?? RENETTA VALERIO M.D. ??on Jan 09 2015 10:49A This document has been electronically signed by: BASIM BAH M.D. on Jan 09 2015 ??1:16P [id number] Procedure Note Provider, Edward, - 06/22/2016 BASIM BAH M.D. RENETTA VALERIO M.D. FINAL REPORT The radiology attending physician has personally reviewed this study, and has reviewed and/or edited this written report and agrees with it. ACC# Date Time Exam [id number] Jan 08, 2015 21:30:00 [id number] Chest 1 view Frontal EXAMINATION: Chest 1 view IMPRESSION: Comparison is made to chest radiograph dated 01/08/2015 at 3:34 a.m. The tip of the right internal jugular central venous catheter overlies the superior vena cava and the tip of the right pulmonary artery catheter overlies the main pulmonary artery. Median sternotomy wires remain aligned and intact. 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 Two drains overlie the mediastinum. Surgical clips overlie the left chest wall and left axilla. Lung volumes are small. Mild pulmonary edema has improved. There are tiny bilateral pleural effusions with associated minimal atelectasis. No pneumothorax is seen. The cardiomediastinal silhouette is stable. Requested By: SANTIAGO MENG [facility] Dictated By: RENETTA VALERIO M.D. on Jan 09 2015 10:49A This document has been electronically signed by: BASIM BAH M.D. on Jan 09 2015 1:16P [id number] us Historical Provider [facility] XR PROCEDURES Final R esult * (ABNORMAL) Blood gas, arterial (01/08/2015 8:15 PM CONTACT LENS BLOCKER) CO2, calc, art 21 21 - 30 mmol/L HISTORICAL RESULTS Ph, art 7.42 7.35 - 7.45 HISTORICAL RESULTS PCO2 32(L) 35 - 45 mm Hg HISTORICAL RESULTS PO2, art 81 80 - 105 mm Hg HISTORICAL RESULTS A-a gradient Not Applicable mm Hg HI STORICAL RESULTS O2, inspired, %, art Not Applicable % HISTORICAL RESULTS Oxygen (O2), inspired fraction (FiO2) Not Applicable liters HISTORICAL RESULTS Arterial blood 01/08/2015 8: 15 PM CONTACT LENS BLOCKER Result [facility] Historical Provider LAB BLOOD ORDERABLES Miranda l Result HISTORICAL RESULTS * Blood glucose, POC (01/08/2015 7:46 PM CONTACT LENS BLOCKER) Glucose, POC, bld 159 70 - 199 mg/dl HISTORICAL RESULTS Blood specimen (specimen) 01/08/2015 7:46 PM CONTACT LENS BLOCKER Result [facility] Bo Cuellar MD LAB BLOOD ORDERABLES Final Re sult Performing Organization Address [facility]/ZIP Co de Phone Number HISTORICAL RESULTS * (ABNORMAL) Plasma basic metabolic panel (01/08/2015 7:37 PM CONTACT LENS BLOCKER) Pathologist [facility] Sodium 139 135 - 145 mmol/L HISTORICAL RESULTS K, pl 4.1 3.3 - 4.9 mmol/L HISTORICAL RESULTS Chloride 105 97 - 110 mmol/L HISTORICAL RESULTS CO2 22 22 - 32 mmol/L HISTORICAL RESULTS A. gap 12 0 - 16 mmol/L HISTORICAL RESULTS Glucose 167 70 - 199 mg/dl HISTORICAL RESULTS BUN 26(H) 8 - 25 mg/dl HISTORICAL RESULTS Creatinine 1.04 0.60 - 1.10 mg/dl HISTORICAL RESULTS Calcium 8.5(L) 8.6 - 10.3 mg/dl HISTORICAL RESULTS Plasma 01/08/2015 7:37 PM CONTACT LENS BLOCKER Result [facility] Historical Provider LAB BLOOD ORDERABLES Miranda l Result Performing Organization Address [facility]/ZIP Co de Phone Number HISTORICAL RESULTS * Plasma phosphorus (01/08/2015 7:37 PM CONTACT LENS BLOCKER) Pathologist [facility] Phosphorus, pl 3.0 2.3 - 4.3 mg/dl HISTORICAL RESULTS Plasma 01/08/2015 7:37 PM CONTACT LENS BLOCKER Result [facility] Historical Provider LAB BLOOD ORDERABLES Miranda l Result HISTORICAL RESULTS * Serum magnesium (01/08/2015 7:37 PM CONTACT LENS BLOCKER) Pathologist [facility] Magnesium 2.0 1.4 - 2.5 mg/dl HISTORICAL RESULTS Serum 01/08/2015 7:37 PM CONTACT LENS BLOCKER Result [facility] Historical Provider LAB BLOOD ORDERABLES Miranda sheldon Result Performing Organization Address [facility] Co de Phone Number HISTORICAL RESULTS * (ABNORMAL) Blood cell count [CBC] express (01/08/2015 7:37 PM CONTACT LENS BLOCKER) [facility] WBC 14.3(H) 3.8 - 9.8 K/cumm HISTORICAL RESULTS RBC 3.46(L) 3.90 - 5.00 M/cumm HISTORICAL RESULTS Hgb 9.5(L) 12.1 - 15.1 g/dl HISTORICAL RESULTS Hct 30.2(L) 36.1 - 44.3 % HISTORICAL RESULTS MCV 87.3 80.0 - 97.6 fl HISTORICAL RESULTS MCH 27.4 26.7 - 33.7 pg HISTORICAL RESULTS MCHC 31.4(L) 32.7 - 35.5 g/dl HISTORICAL RESULTS Rdw 14.0 11.8 - 14.6 % HISTORICAL RESULTS Platelets 118(L) 140 - 440 K/cumm HISTORICAL RESULTS MPV 9.3 6.8 - 10.4 fl HISTORICAL RESULTS Blood specimen (specimen) 01/08/2015 7:37 PM CONTACT LENS BLOCKER Result [facility] Historical Provider LAB BLOOD ORDERABLES Miranda l Result Performing Organization Address [facility] de Phone Number HISTORICAL RESULTS * Blood glucose, POC (01/08/2015 5:47 PM CONTACT LENS BLOCKER) [facility] Glucose, POC, bld 116 70 - 199 mg/dl HISTORICAL RESULTS Blood specimen (specimen) 01/08/2015 5:47 PM CONTACT LENS BLOCKER Result [facility] Bo Cuellar MD LAB BLOOD ORDERABLES Final Re sult Performing Organization Address [facility]/ZIP Co de Phone Number HISTORICAL RESULTS * (ABNORMAL) Blood hemoglobin saturation (01/08/2015 1:51 PM CONTACT LENS BLOCKER) [facility] Hgb estimated, main pulmonary a 9.4(L) 12.1 - 15.1 g/dl HISTORICAL RESULTS OxyHb, main pulmonary a 70.6 % HISTORICAL RESULTS COHb, main pulmonary a 1.5 % HISTORICAL RESULTS MetHb, main pulmonary a 1.2 % HISTORICAL RESULTS O2 content, pulmonary a 9.3 volume % O2 HISTORICAL RESULTS Blood specimen (specimen) 01/08/2015 1:51 PM CONTACT LENS BLOCKER Result [facility] Provider LAB BLOOD ORDERABLES Miranda l Result Performing Organization Address [facility] de Phone Number HISTORICAL RESULTS * Blood glucose, POC (01/08/2015 12:27 PM CONTACT LENS BLOCKER) Glucose, POC, bld 175 70 - 199 mg/dl HISTORICAL RESULTS Blood specimen (specimen) 01/08/2015 12:27 PM CONTACT LENS BLOCKER Result [facility] Bo Cuellar MD LAB BLOOD ORDERABLES Final Re sult Performing Organization Address [facility] de Phone Number HISTORICAL RESULTS * (ABNORMAL) Plasma basic metabolic panel (01/08/2015 12:24 PM CONTACT LENS BLOCKER) Pathologist [facility] Sodium 140 135 - 145 mmol/L HISTORICAL RESULTS K, pl 4.2 3.3 - 4.9 mmol/L HISTORICAL RESULTS Chloride 107 97 - 110 mmol/L HISTORICAL RESULTS CO2 20(L) 22 - 32 mmol/L HISTORICAL RESULTS A. gap 13 0 - 16 mmol/L HISTORICAL RESULTS Glucose 208(H) 70 - 199 mg/dl HISTORICAL RESULTS BUN 27(H) 8 - 25 mg/dl HISTORICAL RESULTS Creatinine 0.98 0.60 - 1.10 mg/dl HISTORICAL RESULTS Calcium 8.4(L) 8.6 - 10.3 mg/dl HISTORICAL RESULTS Plasma 01/08/2015 12:2 4 PM CONTACT LENS BLOCKER Result [facility] Bo Cuellar MD LAB BLOOD ORDERABLES Final Re sult Performing Organization Address [facility] de Phone Number HISTORICAL RESULTS * Blood lactic acid (01/08/2015 9:48 AM CONTACT LENS BLOCKER) Lactic acid 1.2 0.7 - 2.1 mmol/L HISTORICAL RESULTS Blood specimen (specimen) 01/08/2015 9:48 AM CONTACT LENS BLOCKER Stephanieelaina Perera LAB BLOOD ORDERABLES Final Result Performing Organization Address [facility] de Phone Number HISTORICAL RESULTS * Blood glucose, POC (01/08/2015 7:51 AM CONTACT LENS BLOCKER) [facility] Glucose, POC, bld 172 70 - 199 mg/dl HISTORICAL RESULTS Blood specimen (specimen) 01/08/2015 7:51 AM CONTACT LENS BLOCKER Result [facility] Bo Cuellar MD LAB BLOOD ORDERABLES Final Re sult Performing Organization Address [facility] de Phone Number HISTORICAL RESULTS * (ABNORMAL) Blood gas, arterial (01/08/2015 7:46 AM CONTACT LENS BLOCKER) [facility] Ph, art 7.29(L) 7.35 - 7.45 HISTORICAL RESULTS PCO2 37 35 - 45 mm Hg HISTORICAL RESULTS PO2, art 165(H) 80 - 105 mm Hg HISTORICAL RESULTS CO2, calc, art 18(L) 21 - 30 mmol/L HISTORICAL RESULTS A-a gradient Not Applicable mm Hg HI STORICAL RESULTS O2, inspired, %, art Not Applicable % HISTORICAL RESULTS Oxygen (O2), inspired fraction (FiO2) 2.0 liters HISTORICAL RESULTS Arterial blood 01/08/2015 7: 46 AM CONTACT LENS BLOCKER Stephanie Nova Perera LAB BLOOD ORDERABLES Final Result Performing Organization Address [facility] de Phone Number HISTORICAL RESULTS * (ABNORMAL) Blood hemoglobin saturation, mixed venous (01/08/2015 5:06 AM CONTACT LENS BLOCKER) [facility] Hgb estimated, noris 10.0(L) 12.1 - 15.1 g/dl HISTORICAL RESULTS Cohb, noris 1.6 0.0 - 2.9 % HISTORIC AL RESULTS MetHb, noris 1.0 0.0 - 1.9 % HISTORI PAOLA RESULTS O2 content, venous 9 volume % O2 HISTORICAL RESULTS Oxyhb, noris 65.0 60.0 - 85.0 % HISTORICAL RESULTS Mixed venous blood 01/08/2015 5:06 AM CONTACT LENS BLOCKER us Historical Provider LAB BLOOD ORDERABLES Miranda sehldon Result HISTORICAL RESULTS * (ABNORMAL) Serum lipid panel (01/08/2015 5:06 AM CONTACT LENS BLOCKER) Cholesterol 63 0 - 200 mg/dl HISTORICAL RESULTS Comment: Interpretive Data Desirable: ?<200 mg/dL Borderline high: ??200-239 mg/dL High: ? >240 mg/dL Literature Reference: National Cholesterol Education Program (NCEP) Expert Panel on Detection, Evaluation, and Treatment of High Blood Cholesterol in Adults (Adult Treatment Panel III). ??Circulation 2004; 110:227. Current interpretive data was last revised on 2005. Triglycerides 79 0 - 150 mg/dl HISTORICAL RESULTS Comment: Interpretive Data Desirable: ? < 150 mg/dL Borderline High: ? 150 - 199 mg/dL High: ?> 200 mg/dL Literature Reference: See Cholesterol Current interpretive data was last revised on 06. HDL 30(L) 40 - 199 mg/dl HISTORICAL RESULTS Comment: Interpretive Data Less than 40 mg/dL - low; A major risk factor for heart disease. Greater than or equal to 60 mg/dL - High; ??considered protective of heart disease. Literature Reference: See Cholesterol Current interpretive data was last revised on 2007. LDL 17 0 - 129 mg/dl HISTORICAL RESULTS Comment: Interpretive Data Optimal: ? < 100 mg/dL Near Optimal: ?100 - 129 mg/dL Borderline High: ?? 130 - 159 mg/dL High: ?> 160 mg/dL Literature Reference: See Cholesterol Current interpretive data was last revised on 06. Non-HDL cholesterol, calculated 33 mg/dl HISTORICAL RESULTS Comment: Interpretive Data When triglycerides are >200 mg/dL, non-HDL C is a secondary target of therapy, with a goal 30 mg/dL higher than the identified LDL-C goal. Reference: ??See Cholesterol Reference. Current interpretive data was last revised 2011. Serum 01/08/2015 5:06 AM CONTACT LENS BLOCKER Historical Provider LAB BLOOD ORDERABLES Miranda l Result Performing Organization Address [facility] de Phone Number HISTORICAL RESULTS * (ABNORMAL) Plasma basic metabolic panel (01/08/2015 5:06 AM CONTACT LENS BLOCKER) Sodium 142 135 - 145 mmol/L HISTORICAL RESULTS K, pl 4.4 3.3 - 4.9 mmol/L HISTORICAL RESULTS Chloride 111(H) 97 - 110 mmol/L HISTORICAL RESULTS CO2 16(L) 22 - 32 mmol/L HISTORICAL RESULTS Glucose 143 70 - 199 mg/dl HISTORICAL RESULTS BUN 26(H) 8 - 25 mg/dl HISTORICAL RESULTS Creatinine 0.94 0.60 - 1.10 mg/dl HISTORICAL RESULTS Calcium 8.6 8.6 - 10.3 mg/dl HISTORICAL RESULTS A. gap 15 0 - 16 mmol/L HISTORICAL RESULTS Plasma 01/08/2015 5:06 AM CONTACT LENS BLOCKER Result [facility] Provider LAB BLOOD ORDERABLES Miranda l Result Performing Organization Address [facility] de Phone Number HISTORICAL RESULTS * (ABNORMAL) Blood cell count (CBC) (01/08/2015 5:06 AM CONTACT LENS BLOCKER) WBC 15.4(H) 3.8 - 9.8 K/cumm HISTORICAL RESULTS RBC 3.44(L) 3.90 - 5.00 M/cumm HISTORICAL RESULTS Hgb 9.8(L) 12.1 - 15.1 g/dl HISTORICAL RESULTS Hct 30.2(L) 36.1 - 44.3 % HISTORICAL RESULTS MCV 87.9 80.0 - 97.6 fl HISTORICAL RESULTS MCH 28.5 26.7 - 33.7 pg HISTORICAL RESULTS MCHC 32.4(L) 32.7 - 35.5 g/dl HISTORICAL RESULTS Rdw 13.8 11.8 - 14.6 % HISTORICAL RESULTS Platelets 134(L) 140 - 440 K/cumm HISTORICAL RESULTS MPV 9.7 6.8 - 10.4 fl HISTORICAL RESULTS Neutrophils 81.6(H) 38.7 - 74.5 % HISTORICAL RESULTS Lymphocytes 7.4(L) 20.0 - 54.3 % HISTORICAL RESULTS Monos 11.0 4.3 - 13.5 % HISTORICAL RESULTS Eosinophils 0.0 0.0 - 6.0 % HISTORICAL RESULTS Basophils 0.0 0.0 - 3.0 % HISTORICAL RESULTS Neutrophils, abs 12.6(H) 1.8 - 6.6 K/cumm HISTORICAL RESULTS Lymphocytes, abs 1.1(L) 1.2 - 3.3 K/cumm HISTORICAL RESULTS Monocytes, absolute 1.7(H) 0.2 - 1.2 K/cumm HISTORICAL RESULTS Eosinophils, abs 0.0 0.0 - 0.5 K/cumm HISTORICAL RESULTS Basophils, abs 0.0 0.0 - 0.2 K/cumm HISTORICAL RESULTS Blood specimen (specimen) 01/08/2015 5:06 AM CONTACT LENS BLOCKER Historical Provider LAB BLOOD ORDERABLES Miranda l Result HISTORICAL RESULTS * (ABNORMAL) Blood hemoglobin A1C (01/08/2015 5:06 AM CONTACT LENS BLOCKER) [facility] Hgb A1C 6.2(H) 4.0 - 6.0 % HISTORICAL RESULTS Estimated average glucose 131 mg/dl HISTORICAL RESULTS Comment: The ADA recommends reporting an estimated Average Glucose (eAG) with all Hemoglobin A1c results using the equation derived from a study of 507 normal and diabetic adults. ??Minority populations were underrepresented and children were not included. ??(Diabetes Care 31:7704-5984, 2008). ??The eAG is not equivalent to a fasting glucose. Blood specimen (specimen) 01/08/2015 5:06 AM CONTACT LENS BLOCKER Historical Provider MD LAB BLOOD ORDERABLES Miranda l Result HISTORICAL RESULTS * Blood glucose, POC (01/08/2015 5:01 AM CONTACT LENS BLOCKER) Glucose, POC, bld 105 70 - 199 mg/dl HISTORICAL RESULTS Blood specimen (specimen) 01/08/2015 5:01 AM CONTACT LENS BLOCKER Bo Cuellar MD LAB BLOOD ORDERABLES Final Re sult Performing Organization Address [facility] Co de Phone Number HISTORICAL RESULTS * Blood glucose, POC (01/08/2015 4:20 AM CONTACT LENS BLOCKER) Glucose, POC, bld 87 70 - 199 mg/dl HISTORICAL RESULTS Blood specimen (specimen) 01/08/2015 4:20 AM CONTACT LENS BLOCKER Bo Cuellar MD LAB BLOOD ORDERABLES Final Re sult Performing Organization Address [facility] Co de Phone Number HISTORICAL RESULTS * XR Chest 1 View (01/08/2015 3:34 AM CONTACT LENS BLOCKER) Anatomical Region Laterality Modality Body, Chest N/A Radiographic Karla ging 01/08/2015 3:34 AM CONTACT LENS BLOCKER Narrative 01/08/2015 8:05 AM CONTACT LENS BLOCKER BASIM BAH M.D. FINAL REPORT ACC# ??Date Time ??Exam [id number] Jan 07, 2015 21:32:00 [id number] Chest 1 view Frontal [id number] Jan 08, 2015 03:34:00 [id number] Chest 1 view Frontal EXAMINATION: ?? Two ??One View Portable Chests IMPRESSION: ?? First exam: The patient is status post a median sternotomy. Sternotomy wires are aligned. The heart and mediastinal contours are normal. the patient had a mitral valve repair. Mediastinal drains in place. [place]-Rayna catheter overlies the main to right pulmonary artery. A right internal jugular central catheter is present, tip overlies the superior vena cava.. There is no pneumothorax.. Surgical clips seen in the left axial There is mild interstitial opacity compatible with edema. Second exam no change with the exception that lung volumes are slightly smaller. Requested By: SUSHMA DONOVAN [facility] Dictated By: ?? BASIM BAH M.D. ??on Jan 08 2015 ??8:05A This document has been electronically signed by: BASIM BAH M.D. on Jan 08 2015 ??8:05A [id number] Procedure Note Provider, Edward, - 06/22/2016 BASIM BAH M.D. FINAL REPORT ACC# Date Time Exam [id number] Jan 07, 2015 21:32:00 [id number] Chest 1 view Frontal [id number] Jan 08, 2015 03:34:00 [id number] Chest 1 view Frontal EXAMINATION: Two One View Portable Chests IMPRESSION: First exam: The patient is status post a median sternotomy. Sternotomy wires are aligned. The heart and mediastinal contours are normal. the patient had a mitral valve repair. Mediastinal drains in place. [place]-Rayna catheter overlies the main to right pulmonary artery. A right internal jugular central catheter is present, tip overlies the superior vena cava.. There is no pneumothorax.. Surgical clips seen in the left axial There is mild interstitial opacity compatible with edema. Second exam no change with the exception that lung volumes are slightly smaller. Requested By: SUSHMA DONOVAN [facility] Dictated By: BASIM BAH M.D. on Jan 08 2015 8:05A This document has been electronically signed by: BASIM BAH M.D. on Jan 08 2015 8:05A [id number] Historical Provider IMG XR PROCEDURES Final R esult * Blood glucose, POC (01/08/2015 3:07 AM CONTACT LENS BLOCKER) Glucose, POC, bld 103 70 - 199 mg/dl HISTORICAL RESULTS Blood specimen (specimen) 01/08/2015 3:07 AM CONTACT LENS BLOCKER us Bo Cuellar MD LAB BLOOD ORDERABLES Final Re sult HISTORICAL RESULTS * Blood glucose, POC (01/08/2015 1:46 AM CONTACT LENS BLOCKER) Glucose, POC, bld 105 70 - 199 mg/dl HISTORICAL RESULTS Blood specimen (specimen) 01/08/2015 1:46 AM CONTACT LENS BLOCKER Bo Cuellar MD LAB BLOOD ORDERABLES Final Re sult Performing Organization Address [facility] Number HISTORICAL RESULTS * Blood glucose, POC (01/08/2015 12:55 AM CONTACT LENS BLOCKER) Glucose, POC, bld 122 70 - 199 mg/dl HISTORICAL RESULTS Blood specimen (specimen) 01/08/2015 12:55 AM CONTACT LENS BLOCKER Bo Cuellar MD LAB BLOOD ORDERABLES Final Re sult Performing Organization Address [facility] Phone Number HISTORICAL RESULTS * Blood glucose, POC (01/07/2015 11:57 PM CONTACT LENS BLOCKER) Glucose, POC, bld 105 70 - 199 mg/dl HISTORICAL RESULTS Blood specimen (specimen) 01/07/2015 11:57 PM CONTACT LENS BLOCKER Result [facility] Bo Cuellar MD LAB BLOOD ORDERABLES Final Re sult Performing Organization Address [facility] Phone Number HISTORICAL RESULTS * Blood glucose, POC (01/07/2015 10:57 PM CONTACT LENS BLOCKER) Glucose, POC, bld 108 70 - 199 mg/dl HISTORICAL RESULTS Blood specimen (specimen) 01/07/2015 10:57 PM CONTACT LENS BLOCKER Result [facility] Bo Cuellar MD LAB BLOOD ORDERABLES Final Re sult Performing Organization Address [facility] Phone Number HISTORICAL RESULTS * (ABNORMAL) Plasma basic metabolic panel (01/07/2015 10:02 PM CONTACT LENS BLOCKER) Sodium 143 135 - 145 mmol/L HISTORICAL RESULTS K, pl 4.1 3.3 - 4.9 mmol/L HISTORICAL RESULTS Chloride 111(H) 97 - 110 mmol/L HISTORICAL RESULTS CO2 22 22 - 32 mmol/L HISTORICAL RESULTS A. gap 10 0 - 16 mmol/L HISTORICAL RESULTS Glucose 125 70 - 199 mg/dl HISTORICAL RESULTS BUN 26(H) 8 - 25 mg/dl HISTORICAL RESULTS Creatinine 0.91 0.60 - 1.10 mg/dl HISTORICAL RESULTS Calcium 8.8 8.6 - 10.3 mg/dl HISTORICAL RESULTS Plasma 01/07/2015 10:0 2 PM CONTACT LENS BLOCKER Result [facility] Provider LAB BLOOD ORDERABLES Miranda l Result Performing Organization Address City/[facility] Co de Phone Number HISTORICAL RESULTS * Plasma phosphorus (01/07/2015 10:02 PM CONTACT LENS BLOCKER) Phosphorus, pl 3.4 2.3 - 4.3 mg/dl HISTORICAL RESULTS Plasma 01/07/2015 10:0 2 PM CONTACT LENS BLOCKER Result [facility] Provider LAB BLOOD ORDERABLES Miranda l Result Performing Organization Address [facility] Co de Phone Number HISTORICAL RESULTS * Serum magnesium (01/07/2015 10:02 PM CONTACT LENS BLOCKER) Pathologist [facility] Magnesium 2.1 1.4 - 2.5 mg/dl HISTORICAL RESULTS Serum 01/07/2015 10:0 2 PM CONTACT LENS BLOCKER Result [facility] Provider LAB BLOOD ORDERABLES Miranda l Result Performing Organization Address [facility] Co de Phone Number HISTORICAL RESULTS * (ABNORMAL) Blood cell count [CBC] express (01/07/2015 10:02 PM CONTACT LENS BLOCKER) WBC 13.5(H) 3.8 - 9.8 K/cumm HISTORICAL RESULTS RBC 3.48(L) 3.90 - 5.00 M/cumm HISTORICAL RESULTS Hgb 9.9(L) 12.1 - 15.1 g/dl HISTORICAL RESULTS Hct 30.3(L) 36.1 - 44.3 % HISTORICAL RESULTS MCV 87.2 80.0 - 97.6 fl HISTORICAL RESULTS MCH 28.4 26.7 - 33.7 pg HISTORICAL RESULTS MCHC 32.5(L) 32.7 - 35.5 g/dl HISTORICAL RESULTS Rdw 13.6 11.8 - 14.6 % HISTORICAL RESULTS Platelets 149 140 - 440 K/cumm HISTORICAL RESULTS MPV 9.4 6.8 - 10.4 fl HISTORICAL RESULTS Blood specimen (specimen) 01/07/2015 10:02 PM CONTACT LENS BLOCKER Historical Provider LAB BLOOD ORDERABLES Miranda l Result HISTORICAL RESULTS * Blood glucose, POC (01/07/2015 10:01 PM CONTACT LENS BLOCKER) Glucose, POC, bld 118 70 - 199 mg/dl HISTORICAL RESULTS Blood specimen (specimen) 01/07/2015 10:01 PM CONTACT LENS BLOCKER Bo Cuellar MD LAB BLOOD ORDERABLES Final Re sult Performing Organization Address City/[facility]/ZIP Co de Phone Number HISTORICAL RESULTS * XR Chest 1 View (01/07/2015 9:32 PM CONTACT LENS BLOCKER) Anatomical Region Laterality Modality Body, Chest N/A Radiographic Karla ging 01/07/2015 9:32 PM CONTACT LENS BLOCKER Narrative 01/08/2015 8:05 AM CONTACT LENS BLOCKER BASIM BAH M.D. FINAL REPORT ACC# ??Date Time ??Exam [id number] Jan 07, 2015 21:32:00 [id number] Chest 1 view Frontal [id number] Jan 08, 2015 03:34:00 [id number] Chest 1 view Frontal EXAMINATION: ?? Two ??One View Portable Chests IMPRESSION: ?? First exam: The patient is status post a median sternotomy. Sternotomy wires are aligned. The heart and mediastinal contours are normal. the patient had a mitral valve repair. Mediastinal drains in place. Riverside-Rayna catheter overlies the main to right pulmonary artery. A right internal jugular central catheter is present, tip overlies the superior vena cava.. There is no pneumothorax.. Surgical clips seen in the left axial There is mild interstitial opacity compatible with edema. Second exam no change with the exception that lung volumes are slightly smaller. Requested By: KAREN GARCIA Dictated By: ?? BASIM BAH M.D. ??on Jan 08 2015 ??8:05A This document has been electronically signed by: BASIM BAH M.D. on Jan 08 2015 ??8:05A [id number] Procedure Note Provider, MD Edward - 06/22/2016 BASIM BAH M.D. FINAL REPORT ACC# Date Time Exam [id number] Jan 07, 2015 21:32:00 [id number] Chest 1 view Frontal [id number] Jan 08, 2015 03:34:00 [id number] Chest 1 view Frontal EXAMINATION: Two One View Portable Chests IMPRESSION: First exam: The patient is status post a median sternotomy. Sternotomy wires are aligned. The heart and mediastinal contours are normal. the patient had a mitral valve repair. Mediastinal drains in place. Riverside-Rayna catheter overlies the main to right pulmonary artery. A right internal jugular central catheter is present, tip overlies the superior vena cava.. There is no pneumothorax.. Surgical clips seen in the left axial There is mild interstitial opacity compatible with edema. Second exam no change with the exception that lung volumes are slightly smaller. Requested By: KAREN GARCIA Dictated By: BASIM BAH M.D. on Jan 08 2015 8:05A This document has been electronically signed by: BASIM BAH M.D. on Jan 08 2015 8:05A [id number] Historical Provider IMG XR PROCEDURES Final R esult * Blood glucose, POC (01/07/2015 8:51 PM CONTACT LENS BLOCKER) Glucose, POC, bld 103 70 - 199 mg/dl HISTORICAL RESULTS Blood specimen (specimen) 01/07/2015 8:51 PM CONTACT LENS BLOCKER us Bo Cuellar MD LAB BLOOD ORDERABLES Final Re sult HISTORICAL RESULTS * Blood glucose, POC (01/07/2015 8:07 PM CONTACT LENS BLOCKER) Glucose, POC, bld 106 70 - 199 mg/dl HISTORICAL RESULTS Blood specimen (specimen) 01/07/2015 8:07 PM CONTACT LENS BLOCKER Result [facility] Bo Cuellar MD LAB BLOOD ORDERABLES Final Re sult Performing Organization Address [facility] de Phone Number HISTORICAL RESULTS * (ABNORMAL) Blood hemoglobin saturation (01/07/2015 6:05 PM CONTACT LENS BLOCKER) O2 content, venous 12 volume % O2 HISTORICAL RESULTS Hgb, central noris 10.0(L) 12.1 - 15.1 g/dl HISTORICAL RESULTS OxyHb, central noris 84.9 60.0 - 85.0 % HISTORICAL RESULTS COHb, central noris 1.1 0.0 - 2.9 % HISTORICAL RESULTS MetHb, central noris 1.3 0.0 - 1.9 % HISTORICAL RESULTS Blood specimen (specimen) 01/07/2015 6:05 PM CONTACT LENS BLOCKER Result [facility] Bo Cuellar MD LAB BLOOD ORDERABLES Final Re sult Performing Organization Address [facility] de Phone Number HISTORICAL RESULTS * Blood glucose, POC (01/07/2015 5:56 PM CONTACT LENS BLOCKER) Pathologist [facility] Glucose, POC, bld 163 70 - 199 mg/dl HISTORICAL RESULTS Blood specimen (specimen) 01/07/2015 5:56 PM CONTACT LENS BLOCKER Result [facility] Bo Cuellar MD LAB BLOOD ORDERABLES Final Re sult Performing Organization Address [facility] de Phone Number HISTORICAL RESULTS * (ABNORMAL) Blood gas, arterial (01/07/2015 5:55 PM CONTACT LENS BLOCKER) Ph, art 7.28(L) 7.35 - 7.45 HISTORICAL RESULTS PCO2 41 35 - 45 mm Hg HISTORICAL RESULTS PO2, art 163(H) 80 - 105 mm Hg HISTORICAL RESULTS CO2, calc, art 20(L) 21 - 30 mmol/L HISTORICAL RESULTS A-a gradient Not Applicable mm Hg HI STORICAL RESULTS O2, inspired, %, art Not Applicable % HISTORICAL RESULTS Oxygen (O2), inspired fraction (FiO2) Not Applicable liters HISTORICAL RESULTS Arterial blood 01/07/2015 5: 55 PM CONTACT LENS BLOCKER Result [facility] Historical Provider LAB BLOOD ORDERABLES Miranda sheldon Result Performing Organization Address [facility] de Phone Number HISTORICAL RESULTS * (ABNORMAL) Blood hemoglobin saturation, mixed venous (01/07/2015 5:55 PM CONTACT LENS BLOCKER) Hgb estimated, noris 10.0(L) 12.1 - 15.1 g/dl HISTORICAL RESULTS Oxyhb, noris 80.1 60.0 - 85.0 % HISTORICAL RESULTS Cohb, noris 1.4 0.0 - 2.9 % HISTORIC AL RESULTS MetHb, noris 1.2 0.0 - 1.9 % HISTORI PAOLA RESULTS O2 content, venous 11 volume % O2 HISTORICAL RESULTS Mixed venous blood 01/07/2015 5:55 PM CONTACT LENS BLOCKER Result [facility] Historical Provider LAB BLOOD ORDERABLES Miranda sheldon Result Performing Organization Address [facility] de Phone Number HISTORICAL RESULTS * (ABNORMAL) Blood hemoglobin saturation (01/07/2015 5:55 PM CONTACT LENS BLOCKER) Hgb, central noris 10.1(L) 12.1 - 15.1 g/dl HISTORICAL RESULTS OxyHb, central noris 80.0 60.0 - 85.0 % HISTORICAL RESULTS COHb, central noris 1.4 0.0 - 2.9 % HISTORICAL RESULTS MetHb, central noris 1.0 0.0 - 1.9 % HISTORICAL RESULTS O2 content, venous 11 volume % O2 HISTORICAL RESULTS Blood specimen (specimen) 01/07/2015 5:55 PM CONTACT LENS BLOCKER Result [facility] Historical Provider LAB BLOOD ORDERABLES Miranda sheldon Result Performing Organization Address [facility] de Phone Number HISTORICAL RESULTS * Blood glucose, POC (01/07/2015 4:59 PM CONTACT LENS BLOCKER) Glucose, POC, bld 175 70 - 199 mg/dl HISTORICAL RESULTS Blood specimen (specimen) 01/07/2015 4:59 PM CONTACT LENS BLOCKER Result [facility] Bo Cuellar MD LAB BLOOD ORDERABLES Final Re sult Performing Organization Address [facility] de Phone Number HISTORICAL RESULTS * (ABNORMAL) Blood gas, arterial (01/07/2015 4:55 PM CONTACT LENS BLOCKER) Ph, art 7.28(L) 7.35 - 7.45 HISTORICAL RESULTS PCO2 39 35 - 45 mm Hg HISTORICAL RESULTS PO2, art 150(H) 80 - 105 mm Hg HISTORICAL RESULTS CO2, calc, art 19(L) 21 - 30 mmol/L HISTORICAL RESULTS A-a gradient Not Applicable mm Hg HI STORICAL RESULTS O2, inspired, %, art Not Applicable % HISTORICAL RESULTS Oxygen (O2), inspired fraction (FiO2) Not Applicable liters HISTORICAL RESULTS Arterial blood 01/07/2015 4: 55 PM CONTACT LENS BLOCKER Result [facility] Kael BUENO LAB BLOOD ORDERABLES Miranda l Result Performing Organization Address [facility] de Phone Number HISTORICAL RESULTS * Blood glucose, POC (01/07/2015 4:15 PM CONTACT LENS BLOCKER) Glucose, POC, bld 178 70 - 199 mg/dl HISTORICAL RESULTS Blood specimen (specimen) 01/07/2015 4:15 PM CONTACT LENS BLOCKER Result [facility] Bo Cuellar MD LAB BLOOD ORDERABLES Final Re sult Performing Organization Address [facility] de Phone Number HISTORICAL RESULTS * (ABNORMAL) Blood gas, arterial (01/07/2015 3:50 PM CONTACT LENS BLOCKER) Ph, art 7.29(L) 7.35 - 7.45 HISTORICAL RESULTS PCO2 40 35 - 45 mm Hg HISTORICAL RESULTS PO2, art 137(H) 80 - 105 mm Hg HISTORICAL RESULTS CO2, calc, art 20(L) 21 - 30 mmol/L HISTORICAL RESULTS A-a gradient Not Applicable mm Hg HI STORICAL RESULTS O2, inspired, %, art Not Applicable % HISTORICAL RESULTS Oxygen (O2), inspired fraction (FiO2) Not Applicable liters HISTORICAL RESULTS Arterial blood 01/07/2015 3: 50 PM CONTACT LENS BLOCKER Result [facility] Historical Provider LAB BLOOD ORDERABLES Miranda l Result Performing Organization Address City/[facility] Co de Phone Number HISTORICAL RESULTS * Blood glucose, POC (01/07/2015 3:05 PM CONTACT LENS BLOCKER) Glucose, POC, bld 179 70 - 199 mg/dl HISTORICAL RESULTS Blood specimen (specimen) 01/07/2015 3:05 PM CONTACT LENS BLOCKER Result [facility] Bo Cuellar MD LAB BLOOD ORDERABLES Final Re sult Performing Organization Address [facility] Co de Phone Number HISTORICAL RESULTS * Blood glucose, POC (01/07/2015 2:26 PM CONTACT LENS BLOCKER) Glucose, POC, bld 142 70 - 199 mg/dl HISTORICAL RESULTS Blood specimen (specimen) 01/07/2015 2:26 PM CONTACT LENS BLOCKER Result [facility] Bo Cuellar MD LAB BLOOD ORDERABLES Final Re sult Performing Organization Address [facility] de Phone Number HISTORICAL RESULTS * XR Chest 1 View (01/07/2015 2:08 PM CONTACT LENS BLOCKER) Anatomical Region Laterality Modality Body, Chest N/A Radiographic Karla ging 01/07/2015 2:08 PM CONTACT LENS BLOCKER Narrative 01/07/2015 6:44 PM CONTACT LENS BLOCKER CAROLYNN DUKE M.D. JIMBO MORRISON M.D. FINAL REPORT The radiology attending physician has personally reviewed this study, and has reviewed and/or edited this written report and agrees with it. ACC# ??Date Time ??Exam [id number] Jan 07, 2015 14:08:00 [id number] Chest 1 view Frontal EXAMINATION: ?? Chest 1 View IMPRESSION: ?? Comparison 12/30/2014. There has been interval median sternotomy and mitral valve repair. Median sternotomy wires are aligned and intact. Endotracheal tube terminates approximately 1 cm above the wade. This finding was discussed with Yane Gloria, on 01/07/2015 at 1619. Nasogastric tube tip and side-port overlie the stomach. Right internal jugular central venous catheter tip overlies the superior vena cava. Right internal jugular Riverside-Rayna catheter tip overlies the right interlobar pulmonary artery. A mediastinal drain and temporary epicardial pacer wires are present. Surgical clips are noted in the left axilla. There is mild bibasilar atelectasis, slightly increased in severity. No pleural effusions, focal consolidations, or pneumothorax. The cardiomediastinal silhouette is unchanged. Requested By: KAREN GARCIA Dictated By: ?? JIMBO MORRISON M.D. ??on Jan 07 2015 ??4:20P This document has been electronically signed by: CAROLYNN DUKE M.D. on Jan 07 2015 ??6:44P [id number] Procedure Note Provider, MD Edward - 06/22/2016 Bryan DAHL M.D. FINAL REPORT The radiology attending physician has personally reviewed this study, and has reviewed and/or edited this written report and agrees with it. ACC# Date Time Exam [id number] Jan 07, 2015 14:08:00 [id number] Chest 1 view Frontal EXAMINATION: Chest 1 View IMPRESSION: Comparison 12/30/2014. There has been interval median sternotomy and mitral valve repair. Median sternotomy wires are aligned and intact. Endotracheal tube terminates approximately 1 cm above the wade. This finding was discussed with Yane Gloria, on 01/07/2015 at 1619. Nasogastric tube tip and side-port overlie the stomach. Right internal jugular central venous catheter tip overlies the superior vena cava. Right internal jugular Riverside-Rayna catheter tip overlies the right interlobar pulmonary artery. A mediastinal drain and temporary epicardial pacer wires are present. Surgical clips are noted in the left axilla. There is mild bibasilar atelectasis, slightly increased in severity. No pleural effusions, focal consolidations, or pneumothorax. The cardiomediastinal silhouette is unchanged. Requested By: KAREN GARCIA Dictated By: JIMBO MORRISON M.D. on Jan 07 2015 4:20P This document has been electronically signed by: CAROLYNN DUKE M.D. on Jan 07 2015 6:44P [id number] Result [facility] Historical Provider IMG XR PROCEDURES Final R esult * (ABNORMAL) Blood hemoglobin saturation, mixed venous (01/07/2015 1:33 PM CONTACT LENS BLOCKER) O2 content, venous 12 volume % O2 HISTORICAL RESULTS Hgb estimated, noris 9.0(L) 12.1 - 15.1 g/dl HISTORICAL RESULTS Oxyhb, noris 94.4(H) 60.0 - 85.0 % HISTORICAL RESULTS Cohb, noris 1.2 0.0 - 2.9 % HISTORIC AL RESULTS MetHb, noris 1.4 0.0 - 1.9 % HISTORI PAOLA RESULTS Mixed venous blood 01/07/2015 1:33 PM CONTACT LENS BLOCKER Result [facility] Historical Provider LAB BLOOD ORDERABLES Miranda l Result Performing Organization Address [facility] Co de Phone Number HISTORICAL RESULTS * Blood glucose, POC (01/07/2015 1:21 PM CONTACT LENS BLOCKER) Pathologist [facility] Glucose, POC, bld 143 70 - 199 mg/dl HISTORICAL RESULTS Blood specimen (specimen) 01/07/2015 1:21 PM CONTACT LENS BLOCKER Result [facility] Bo Cuellar MD LAB BLOOD ORDERABLES Final Re sult Performing Organization Address City/[facility]/ZIP Co de Phone Number HISTORICAL RESULTS * (ABNORMAL) Blood gas, point of care, arterial (01/07/2015 12:26 PM CONTACT LENS BLOCKER) Ph, art 7.30(L) 7.35 - 7.45 HISTORICAL RESULTS PCO2 45 35 - 45 mm Hg HISTORICAL RESULTS PO2, art 254(H) 80 - 105 mm Hg HISTORICAL RESULTS Sodium, bld 142 135 - 145 mmol/L HISTORICAL RESULTS Potassium, bld 3.7 3.3 - 4.9 mmol/L HISTORICAL RESULTS Ca, ionized, bld 5.85(H) 4.50 - 5.10 mg/dl HISTORICAL RESULTS Hct 32.0(L) 36.1 - 44.3 % HISTORICAL RESULTS Glu, art 157 70 - 199 mg/dl HISTORICAL RESULTS HCO3, art 22 20 - 30 mmol/L HISTORICAL RESULTS CO2, calc, art 24 22 - 32 mmol/L HISTORICAL RESULTS BE, art -4.2 mmol/L HISTORICAL RESULTS O2 sat, art 100(H) 95 - 98 % HISTORIC AL RESULTS Arterial blood 01/07/2015 12 :26 PM CONTACT LENS BLOCKER Bo Cuellar MD LAB BLOOD ORDERABLES Final Re sult Performing Organization Address [facility] de Phone Number HISTORICAL RESULTS * (ABNORMAL) Blood gas, point of care, arterial (01/07/2015 11:50 AM CONTACT LENS BLOCKER) Ph, art 7.40 7.35 - 7.45 HISTORICAL RESULTS PCO2 38 35 - 45 mm Hg HISTORICAL RESULTS PO2, art 478(H) 80 - 105 mm Hg HISTORICAL RESULTS Sodium, bld 141 135 - 145 mmol/L HISTORICAL RESULTS Potassium, bld 3.8 3.3 - 4.9 mmol/L HISTORICAL RESULTS Ca, ionized, bld 6.33(H) 4.50 - 5.10 mg/dl HISTORICAL RESULTS Hct 26.0(L) 36.1 - 44.3 % HISTORICAL RESULTS Glu, art 189 70 - 199 mg/dl HISTORICAL RESULTS HCO3, art 24 20 - 30 mmol/L HISTORICAL RESULTS CO2, calc, art 25 22 - 32 mmol/L HISTORICAL RESULTS BE, art -1.2 mmol/L HISTORICAL RESULTS O2 sat, art 100(H) 95 - 98 % HISTORIC AL RESULTS Arterial blood 01/07/2015 11 :50 AM CONTACT LENS BLOCKER Bo Cuellar MD LAB BLOOD ORDERABLES Final Re sult Performing Organization Address [facility]/State/ZIP Co de Phone Number HISTORICAL RESULTS * (ABNORMAL) Blood platelet, hematocrit Point of Care (01/07/2015 11:50 AM CONTACT LENS BLOCKER) Hct 26.5(L) 36.1 - 44.3 % HISTORICAL RESULTS Platelets 145 140 - 440 K/cumm HISTORICAL RESULTS Blood specimen (specimen) 01/07/2015 11:50 AM CONTACT LENS BLOCKER Bo Cuellar MD LAB BLOOD ORDERABLES Final Re sult HISTORICAL RESULTS * Blood heparin/activated clotting time (ACT) (01/07/2015 11:45 AM CONTACT LENS BLOCKER) Heparin, POC 0.0 Units/ml HISTORI PAOLA RESULTS Coagulation time, activated, POC 118 112 - 174 seconds HISTORICAL RESULTS Blood specimen (specimen) 01/07/2015 11:45 AM CONTACT LENS BLOCKER Bo Cuellar MD LAB BLOOD ORDERABLES Final Re sult Performing Organization Address [facility]/ZIP Co de Phone Number HISTORICAL RESULTS * Blood heparin/activated clotting time (ACT) (01/07/2015 11:03 AM CONTACT LENS BLOCKER) Heparin, POC 4.1 Units/ml HISTORI PAOLA RESULTS Blood specimen (specimen) 01/07/2015 11:03 AM CONTACT LENS BLOCKER Bo Cuellar MD LAB BLOOD ORDERABLES Final Re sult Performing Organization Address City/[facility] Co de Phone Number HISTORICAL RESULTS * (ABNORMAL) Blood gas, point of care, arterial (01/07/2015 10:36 AM CONTACT LENS BLOCKER) Ph, art 7.37 7.35 - 7.45 HISTORICAL RESULTS PCO2 40 35 - 45 mm Hg HISTORICAL RESULTS PO2, art 343(H) 80 - 105 mm Hg HISTORICAL RESULTS Sodium, bld 137 135 - 145 mmol/L HISTORICAL RESULTS Potassium, bld 5.6(H) 3.3 - 4.9 mmol/L HISTORICAL RESULTS Ca, ionized, bld 4.73 4.50 - 5.10 mg/dl HISTORICAL RESULTS Hct 27.0(L) 36.1 - 44.3 % HISTORICAL RESULTS Glu, art 207(H) 70 - 199 mg/dl HISTORICAL RESULTS HCO3, art 23 20 - 30 mmol/L HISTORICAL RESULTS CO2, calc, art 24 22 - 32 mmol/L HISTORICAL RESULTS BE, art -2.0 mmol/L HISTORICAL RESULTS O2 sat, art 100(H) 95 - 98 % HISTORIC AL RESULTS Arterial blood 01/07/2015 10 :36 AM CONTACT LENS BLOCKER Bo Cuellar MD LAB BLOOD ORDERABLES Final Re sult Performing Organization Address [facility] de Phone Number HISTORICAL RESULTS * (ABNORMAL) Blood heparin/activated clotting time (ACT) (01/07/2015 10:30 AM CONTACT LENS BLOCKER) Heparin, POC 4.1 Units/ml HISTORI PAOLA RESULTS Coagulation time, activated, POC 554(H) 112 - 174 seconds HISTORICAL RESULTS Blood specimen (specimen) 01/07/2015 10:30 AM CONTACT LENS BLOCKER Bo Cuellar MD LAB BLOOD ORDERABLES Final Re sult Performing Organization Address [facility] Phone Number HISTORICAL RESULTS * Blood heparin/activated clotting time (ACT) (01/07/2015 10:05 AM CONTACT LENS BLOCKER) Heparin, POC 4.1 Units/ml HISTORI PAOLA RESULTS Blood specimen (specimen) 01/07/2015 10:05 AM CONTACT LENS BLOCKER Result [facility] Bo Cuellar MD LAB BLOOD ORDERABLES Final Re sult Performing Organization Address [facility] de Phone Number HISTORICAL RESULTS * (ABNORMAL) Blood gas, point of care, arterial (01/07/2015 9:41 AM CONTACT LENS BLOCKER) Ph, art 7.46(H) 7.35 - 7.45 HISTORICAL RESULTS PCO2 30(L) 35 - 45 mm Hg HISTORICAL RESULTS PO2, art 373(H) 80 - 105 mm Hg HISTORICAL RESULTS Sodium, bld 135 135 - 145 mmol/L HISTORICAL RESULTS Potassium, bld 4.6 3.3 - 4.9 mmol/L HISTORICAL RESULTS Ca, ionized, bld 4.33(L) 4.50 - 5.10 mg/dl HISTORICAL RESULTS Hct 30.0(L) 36.1 - 44.3 % HISTORICAL RESULTS Glu, art 163 70 - 199 mg/dl HISTORICAL RESULTS HCO3, art 21 20 - 30 mmol/L HISTORICAL RESULTS CO2, calc, art 22 22 - 32 mmol/L HISTORICAL RESULTS BE, art -1.9 mmol/L HISTORICAL RESULTS O2 sat, art 100(H) 95 - 98 % HISTORIC AL RESULTS Arterial blood 01/07/2015 9: 41 AM CONTACT LENS BLOCKER Result [facility] Bo Cuellar MD LAB BLOOD ORDERABLES Final Re sult Performing Organization Address [facility] de Phone Number HISTORICAL RESULTS * (ABNORMAL) Blood heparin/activated clotting time (ACT) (01/07/2015 9:35 AM CONTACT LENS BLOCKER) Heparin, POC >4.7 Units/ml HISTORI PAOLA RESULTS Coagulation time, activated, POC 559(H) 112 - 174 seconds HISTORICAL RESULTS Blood specimen (specimen) 01/07/2015 9:35 AM CONTACT LENS BLOCKER Bo Cuellar MD LAB BLOOD ORDERABLES Final Re sult Performing Organization Address [facility] de Phone Number HISTORICAL RESULTS * (ABNORMAL) Blood heparin/activated clotting time (ACT) (01/07/2015 9:13 AM CONTACT LENS BLOCKER) Heparin, POC 4.1 Units/ml HISTORI PAOLA RESULTS Coagulation time, activated, POC 485(H) 112 - 174 seconds HISTORICAL RESULTS Blood specimen (specimen) 01/07/2015 9:13 AM CONTACT LENS BLOCKER Result [facility] Bo Cuellar MD LAB BLOOD ORDERABLES Final Re sult Performing Organization Address [facility] de Phone Number HISTORICAL RESULTS * (ABNORMAL) Blood gas, point of care, arterial (01/07/2015 8:10 AM CONTACT LENS BLOCKER) Ph, art 7.48(H) 7.35 - 7.45 HISTORICAL RESULTS PCO2 30(L) 35 - 45 mm Hg HISTORICAL RESULTS PO2, art 372(H) 80 - 105 mm Hg HISTORICAL RESULTS Sodium, bld 138 135 - 145 mmol/L HISTORICAL RESULTS Potassium, bld 4.2 3.3 - 4.9 mmol/L HISTORICAL RESULTS Ca, ionized, bld 4.65 4.50 - 5.10 mg/dl HISTORICAL RESULTS Hct 41.0 36.1 - 44.3 % HISTORICAL RESULTS Glu, art 149 70 - 199 mg/dl HISTORICAL RESULTS HCO3, art 22 20 - 30 mmol/L HISTORICAL RESULTS CO2, calc, art 23 22 - 32 mmol/L HISTORICAL RESULTS BE, art -0.4 mmol/L HISTORICAL RESULTS O2 sat, art 100(H) 95 - 98 % HISTORIC AL RESULTS Arterial blood 01/07/2015 8: 10 AM CONTACT LENS BLOCKER Bo Cuellar MD LAB BLOOD ORDERABLES Final Re sult Performing Organization Address [facility] [facility] Co de Phone Number HISTORICAL RESULTS * Blood heparin dose response (01/07/2015 8:03 AM CONTACT LENS BLOCKER) Coagulation time, activated, POC 144 112 - 174 seconds HISTORICAL RESULTS Heparin dose response slope, POC 87 60 - 195 HISTORICAL RESULTS Projected heparin concentration, POC 3.9 Units/ml HISTORICAL RESULTS Blood specimen (specimen) 01/07/2015 8:03 AM CONTACT LENS BLOCKER Bo Cuellar MD LAB BLOOD ORDERABLES Final Re sult Performing Organization Address [facility] Co de Phone Number HISTORICAL RESULTS * Blood glucose, POC (01/07/2015 6:38 AM CONTACT LENS BLOCKER) Glucose, POC, bld 140 70 - 199 mg/dl HISTORICAL RESULTS Gluc, com 1, bld RN Notified HISTORICAL RESULTS Blood specimen (specimen) 01/07/2015 6:38 AM CONTACT LENS BLOCKER Result [facility] Bo Cuellar MD LAB BLOOD ORDERABLES Final Re sult Performing Organization Address [facility] Co de Phone Number HISTORICAL RESULTS * Surgical pathology (01/07/2015) Narrative 01/07/2015 Ordered by an unspecified provider. 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 Acute pulmonary insufficiency following nonthoracic surgery (CMS/HCC) (HCC) Other secondary pulmonary hypertension (HCC) Acute posthemorrhagic anemia Type 2 diabetes mellitus without complications (CMS/HCC) (HCC) Essential (primary) hypertension Unspecified essential hypertension Personal history of malignant neoplasm of breast Hyperlipidemia Other and unspecified hyperlipidemia 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
--- OUTSIDE RECORDS SUMMARY | 2024-02-28 15:39 | XMS_ITS | Encounter Summary ---
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 Name Role Phone Unavailable Primary Care Provider Unavailabl e Encounter Details Date Type Department Care Team (Late st Contact Info) Description 12/24/2008 - 12/24/2008 11:59 PM CDT Hospital Encounter [facility] Cassius Cummings MD [address] [address] Other screening mammogram; Personal history of malignant neoplasm of breast Social History Tobacco Use Types Packs/Day Years Used Date Smoking Tobacco: Never Assessed Comments Unknown Sex and Gender Information Value Date Recorded Sex Assigned at Not on file 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
--- OUTSIDE RECORDS SUMMARY | 2024-02-28 15:39 | XMS_ITS | Encounter Summary ---
Author Organization [facility] Facility Care Team Providers Care Distribution Center Assistant Name Role Phone Unavailable Primary Care Provider Unavailabl e Encounter Details Date Type Department Care Team (Late st Contact Info) Description 01/06/2015 1:17 PM GENERAL ACCOUNTING MANAGER - 01/06/2015 4:00 PM GENERAL ACCOUNTING MANAGER Hospital Encounter [facility] Social History Tobacco Use Types Packs/Day Years Used Date Smoking Tobacco: Never Assessed Comments Unknown Sex and Gender Information Value Date Recorded Sex Assigned at Not on file Legal Sex Female 11:30 PM GENERAL ACCOUNTING MANAGER Gender Identity Female 06/15/2023 1:45 PM [...] Procedure Name Priority Date/Time Associated Diagnosis Comments MRSA SURVEILLANCE CULTURE, CDR Routine 01/07/2015 1:33 PM GENERAL ACCOUNTING MANAGER SERUM MAGNESIUM Routine 01/07/2015 1:30 PM GENERAL ACCOUNTING MANAGER PLASMA PROTHROMBIN TIME (PT) Routine 01/07/2015 1:30 PM GENERAL ACCOUNTING MANAGER PLASMA PHOSPHORUS Routine 01/07/2015 1:3 0 PM GENERAL ACCOUNTING MANAGER PLASMA PARTIAL THROMBOPLASTIN TIME (PTT) Routine 01/07/2015 1:30 PM GENERAL ACCOUNTING MANAGER PLASMA BASIC METABOLIC PANEL Routine 01/07/2015 1:30 PM GENERAL ACCOUNTING MANAGER BLOOD POTASSIUM, MIXED VENOUS Routine 01/07/2015 1:30 PM GENERAL ACCOUNTING MANAGER BLOOD CELL COUNT Routine 01/07/2015 1:30 PM GENERAL ACCOUNTING MANAGER BLOOD PROTHROMBIN TIME (PT) Routine 01/07/2015 11:51 AM GENERAL ACCOUNTING MANAGER PLASMA PARTIAL THROMBOPLASTIN TIME (PTT) Routine 01/07/2015 11:50 AM GENERAL ACCOUNTING MANAGER BLOOD GAS, ARTERIAL Routine 01/07/2015 7 :30 AM GENERAL ACCOUNTING MANAGER ALL MICROBIOLOGY REPORT SECTION Routine 01/07/2015 12:00 AM GENERAL ACCOUNTING MANAGER DISCHARGE LABORATORY CUMULATIVE REPORT 01/06/2015 documented in this encounter Results * Methicillin-resistant Staphylococcus aureus (MRSA) surveillance culture (01/07/2015 1:33 PM GENERAL ACCOUNTING MANAGER) Nasal (Unknown) 01/07/2015 1 :33 PM GENERAL ACCOUNTING MANAGER 01/07/2015 2:29 PM GENERAL ACCOUNTING MANAGER Impressions HISTORICAL RESULTS - 01/09/2015 7:15 AM GENERAL ACCOUNTING MANAGER This test is for Infection Prevention surveillance; no charge to the patient. Narrative HISTORICAL RESULTS - 01/09/2015 7:15 AM GENERAL ACCOUNTING MANAGER Negative us Historical Provider LAB MICROBIOLOGY - GENERA L ORDERABLES Final Result HISTORICAL RESULTS * Plasma partial thromboplastin time (PTT) (01/07/2015 1:30 PM GENERAL ACCOUNTING MANAGER) APTT 29.1 25.0 - 37.0 seconds HISTORICAL RESULTS Comment: Interpretive Data Therapeutic heparin range:60.0 - 94.0 sec based on correlation with therapeutic heparin activity range of 0.3 -0.7 Units/mL. Current interpretive data was last revised on 2011. Plasma 01/07/2015 1:30 PM GENERAL ACCOUNTING MANAGER Result [facility] Historical Provider LAB BLOOD ORDERABLES Miranda l Result Performing Organization Address City/[facility] Co de Phone Number HISTORICAL RESULTS * (ABNORMAL) Plasma basic metabolic panel (01/07/2015 1:30 PM GENERAL ACCOUNTING MANAGER) Sodium 144 135 - 145 mmol/L HISTORICAL RESULTS K, pl 3.8 3.3 - 4.9 mmol/L HISTORICAL RESULTS Chloride 111(H) 97 - 110 mmol/L HISTORICAL RESULTS CO2 19(L) 22 - 32 mmol/L HISTORICAL RESULTS A. gap 14 0 - 16 mmol/L HISTORICAL RESULTS Glucose 151 70 - 199 mg/dl HISTORICAL RESULTS BUN 26(H) 8 - 25 mg/dl HISTORICAL RESULTS Creatinine 1.08 0.60 - 1.10 mg/dl HISTORICAL RESULTS Calcium 9.6 8.6 - 10.3 mg/dl HISTORICAL RESULTS Plasma 01/07/2015 1:30 PM GENERAL ACCOUNTING MANAGER Result [facility] Historical Provider LAB BLOOD ORDERABLES Miranda l Result Performing Organization Address [facility] de Phone Number HISTORICAL RESULTS * Plasma phosphorus (01/07/2015 1:30 PM GENERAL ACCOUNTING MANAGER) Phosphorus, pl 4.3 2.3 - 4.3 mg/dl HISTORICAL RESULTS Plasma 01/07/2015 1:30 PM GENERAL ACCOUNTING MANAGER Result [facility] Historical Provider LAB BLOOD ORDERABLES Miranda l Result Performing Organization Address City/[facility] Co de Phone Number HISTORICAL RESULTS * (ABNORMAL) Plasma prothrombin time (PT) (01/07/2015 1:30 PM GENERAL ACCOUNTING MANAGER) Prothrombin time (PT) 16.0(H) 9.2 - 13.0 seconds HISTORICAL RESULTS INR 1.48(H) 0.90 - 1.20 HISTORIC AL RESULTS Comment: Interpretive Data Inpatient therapeutic ranges* Atrial fibrillation ?2.0-3.0 INR Venous thrombo-embolism ?2.0-3.0 INR Bioprosthetic heart valve ?* Mechanical heart valve, bileaflet or tilting disk,aortic position ? 2.0-3.0 INR All other,or bileaflet or tilting disk, in mitral position ? 2.5-3.5 INR *See the pharmacy resource directory (PHRED) for an updated copy of the Tool Book at [email or web address] Current Interpretive Data was last revised 2011. Plasma 01/07/2015 1:30 PM GENERAL ACCOUNTING MANAGER Result [facility] Historical Provider MD LAB BLOOD ORDERABLES Miranda l Result Performing Organization Address [facility] de Phone Number HISTORICAL RESULTS * (ABNORMAL) Serum magnesium (01/07/2015 1:30 PM GENERAL ACCOUNTING MANAGER) Magnesium 2.8(H) 1.4 - 2.5 mg/dl HISTORICAL RESULTS Serum 01/07/2015 1:3 0 PM GENERAL ACCOUNTING MANAGER Result [facility] Historical Provider MD LAB BLOOD ORDERABLES Miranda l Result Performing Organization Address [facility] de Phone Number HISTORICAL RESULTS * (ABNORMAL) Blood cell count [CBC] express (01/07/2015 1:30 PM GENERAL ACCOUNTING MANAGER) WBC 19.5(H) 3.8 - 9.8 K/cumm HISTORICAL RESULTS RBC 3.37(L) 3.90 - 5.00 M/cumm HISTORICAL RESULTS Hgb 9.6(L) 12.1 - 15.1 g/dl HISTORICAL RESULTS Hct 29.5(L) 36.1 - 44.3 % HISTORICAL RESULTS MCV 87.6 80.0 - 97.6 fl HISTORICAL RESULTS MCH 28.5 26.7 - 33.7 pg HISTORICAL RESULTS MCHC 32.6(L) 32.7 - 35.5 g/dl HISTORICAL RESULTS Rdw 13.4 11.8 - 14.6 % HISTORICAL RESULTS Platelets 169 140 - 440 K/cumm HISTORICAL RESULTS MPV 9.3 6.8 - 10.4 fl HISTORICAL RESULTS Blood specimen (specimen) 01/07/2015 1:30 PM GENERAL ACCOUNTING MANAGER Historical Provider LAB BLOOD ORDERABLES Miranda l Result Performing Organization Address [facility] Co de Phone Number HISTORICAL RESULTS * Blood potassium, mixed venous (01/07/2015 1:30 PM GENERAL ACCOUNTING MANAGER) Pathologist [facility] Potassium, bld 3.8 3.3 - 4.9 mmol/L HISTORICAL RESULTS Mixed venous blood 01/07/2015 1:30 PM GENERAL ACCOUNTING MANAGER Historical Provider LAB BLOOD ORDERABLES Miranda l Result Performing Organization Address [facility] de Phone Number HISTORICAL RESULTS * (ABNORMAL) Blood prothrombin time (PT) (01/07/2015 11:51 AM GENERAL ACCOUNTING MANAGER) Pathologist [facility] PT 31.1(H) 12.1 - 17.0 seconds HISTORICAL RESULTS INR 2.4(H) 1.0 - 1.3 HISTORICAL RESULTS Blood specimen (specimen) 01/07/2015 11:51 AM GENERAL ACCOUNTING MANAGER Result [facility] Bo Cuellar MD LAB BLOOD ORDERABLES Final Re sult Performing Organization Address City/[facility] Co de Phone Number HISTORICAL RESULTS * Plasma partial thromboplastin time (PTT) (01/07/2015 11:50 AM GENERAL ACCOUNTING MANAGER) Pathologist [facility] APTT 39.4 29.3 - 45.4 seconds HISTORICAL RESULTS Plasma 01/07/2015 11:5 0 AM GENERAL ACCOUNTING MANAGER Bo Cuellar MD LAB BLOOD ORDERABLES Final Re sult Performing Organization Address City/[facility]/ZIP Co de Phone Number HISTORICAL RESULTS * (ABNORMAL) Blood gas, arterial (01/07/2015 7:30 AM GENERAL ACCOUNTING MANAGER) Ph, art 7.26(L) 7.35 - 7.45 HISTORICAL RESULTS PCO2 43 35 - 45 mm Hg HISTORICAL RESULTS PO2, art 178(H) 80 - 105 mm Hg HISTORICAL RESULTS CO2, calc, art 20(L) 21 - 30 mmol/L HISTORICAL RESULTS A-a gradient Not Applicable mm Hg HI STORICAL RESULTS O2, inspired, %, art Not Applicable % HISTORICAL RESULTS Oxygen (O2), inspired fraction (FiO2) Not Applicable liters HISTORICAL RESULTS Arterial blood 01/07/2015 7: 30 AM GENERAL ACCOUNTING MANAGER Narrative HISTORICAL RESULTS - 01/07/2015 7:58 AM GENERAL ACCOUNTING MANAGER Attribute Deleted us Historical Provider LAB BLOOD ORDERABLES Miranda l Result Performing Organization Address [facility] Co de Phone Number HISTORICAL RESULTS * All Microbiology Report Section (01/07/2015 12:00 AM GENERAL ACCOUNTING MANAGER) 01/07/2015 Narrative HISTORICAL RESULTS - 01/09/2015 10:25 AM GENERAL ACCOUNTING MANAGER ? [facility] ?[address] [facility] [place], [place] [address] ? Patient Name: ??SAMANTHA, YULIANA Raul ? Med Rec Number: [id number] ? Fin Number: ?[id number] ? Date: ?1940 ? Sex/Age: ? Female 74 years ? Admit Date: ?01/06/2015 ? Discharge Date: 01/06/2015 ? Doctor: ?Maniar , Bo S ? Facility: ?[facility] ? Location: ?[facility] ?* Abnormal ??A Alert ??f Footnote ??^ Corrected ??L Low ??H High ?i Interp Data ??@ Ref Lab ? Chart Type:Cumulative ?* * * * MICROBIOLOGY - MISCELLANEOUS * * * * ?PROCEDURE: MRSA Surveillance Culture ? SOURCE: Nasal ? COLLECTED: 11/10/15 ??1333 ?BODY SITE: ? STARTED: 11/10/15 ??1429 ? FREE TEXT SOURCE: ? FINAL REPORT ? REPORTED: 01/09/15 0715 ? Negative ?* * * ??Interpretive Results ??* * * ? (1)This test is for Infection Prevention surveillance; no charge to ? the patient. ? us Historical Provider LAB MICROBIOLOGY - GENERA L ORDERABLES Final Result HISTORICAL RESULTS * DISCHARGE LABORATORY CUMULATIVE REPORT (01/06/2015) Narrative 01/06/2015 Ordered by an unspecified provider. us Historical Provider LAB BLOOD ORDERABLES Miranda l Result documented in this encounter Visit Diagnoses Not on filedocumented in this encounter
--- OUTSIDE RECORDS SUMMARY | 2024-02-28 15:39 | XMS_ITS | Encounter Summary ---
Author Organization [facility] Facility Care Team Providers Care Gill Box Operator Name Role Phone Unavailable Primary Care Provider Unavailabl e Encounter Details Date Type Department Care Team (Late st Contact Info) Description 08/30/2012 - 08/30/2012 11:59 PM CDT Hospital Encounter [facility] Cassius Cummings MD [address] [address] Routine general medical examination at a health care facility; Asymptomatic postmenopausal status; Disorder of bone and cartilage Social History Tobacco Use Types Packs/Day Years Used Date Smoking Tobacco: Never Assessed Comments Unknown Sex and Gender Information Value Date Recorded Sex Assigned at Not on file Legal Sex Female 11:30 PM FISH HEADER Gender Identity Female 06/15/2023 1:45 PM CDT Sexual Orientation Straight 06/15/2023 1: 45 PM CDT documented as of this encounter Plan of Treatment Not on file documented as of this encounter Procedures Procedure Name Priority Date/Time Associated Diagnosis Comments DEXA AXIAL SKELETON BONE DENSITY 1 OR MORE SITES Routine 08/30/2012 9:15 AM CDT documented in this encounter Results * Dexa Axial Skeleton Bone Density 1 or 2 Site (08/30/2012 9:15 AM CDT) Anatomical Region Laterality Modality Body N/A Radiographic Karla ging 08/30/2012 9:15 AM CDT Narrative 08/30/2012 12:53 PM CDT DI FREEMAN M.D. ROSANNE SALAZAR M.D. FINAL REPORT The radiology attending physician has personally reviewed this study, and has reviewed and/or edited this written report and agrees with it. ACC# ??Date Time ??Exam [id number] Aug 30, 2012 09:15:00 70701 BONE DEXA (2 sites) EXAMINATION: ??BONE DENSITOMETRY OF THE SPINE AND HIP DATE OF STUDY: ??08/30/2012 HISTORY: ??71-year-old postmenopausal woman, evaluate bone mineral density for osteoporosis screening. FINDINGS (SPINE): The bone mineral density of L1-L4 was assessed by dual-energy x-ray absorptiometry. The average bone mineral density within this region is 1.042 gm/sq-cm. This is 2.3 standard deviations above the mean of the average bone mineral density for age- and gender-matched subjects (the Z-score). It is equal to the mean peak bone mineral density in young adults (the T-score). FINDINGS (FEMORAL NECK): The bone mineral density of the left femoral neck was assessed by dual-energy x-ray absorptiometry. The average bone mineral density within the femoral neck region is 0.657 gm/sq-cm. This is 0.3 standard deviations above the mean of the average bone mineral density for age- and gender-matched subjects (the Z-score). It is 1.7 standard deviations below the mean peak bone mineral density in young adults (the T-score). FINDINGS (TOTAL HIP): The bone mineral density of the left hip was assessed by dual-energy x-ray absorptiometry. The average bone mineral density within the total hip region is 0.806 gm/sq-cm. This is 0.6 standard deviations above the mean of the average bone mineral density for age- and gender-matched subjects (the Z-score). It is 1.1 standard deviations below the mean peak bone mineral density in young adults (the T-score). SUMMARY OF CURRENT RESULTS: Region ? Exam Date ?BMD ?T-Score ??Z-Score AP Spine (L1-L4) ? 08/30/2012 ?? 1.042 ?0.0 ?2.3 Femoral Neck (Left) ?08/30/2012 ?? 0.657 ?? -1.7 ?0.3 Total Hip (Left) ? 08/30/2012 ?? 0.806 ?? -1.1 ?0.6 COMPARISON WITH PREVIOUS RESULTS Region ? Age ?BMD ?? T-Score ?? BMD Change ? BMD Change Exam Date ?g/cm2 ?vs Baseline ?vs Previous AP Spine(L1-L4) 08/30/2012 ??71 ?1.042 ? 0.0 ?14.0%# ? 7.8%* 07/19/2007 ??66 ?0.966 ?-0.7 ? 5.8%# ?-0.1% 06/16/2005 ??64 ?0.967 ?-0.7 ? 5.9%# ? 1.9%# 08/17/1999 ??58 ?0.949 ?-0.9 ? 3.9%* ? 3.9%* 05/23/1996 ??55 ?0.914 ?-1.2 Femoral Neck(Left) 08/30/2012 ??71 ?0.657 ?-1.7 ?-4.4%# ?-0.9% 07/19/2007 ??66 ?0.663 ?-1.7 ?-3.5%# ?-4.2% 06/16/2005 ??64 ?0.692 ?-1.4 ? 0.8%# ?-1.9%# 04/25/2002 ??61 ?0.706 ?-1.3 ? 2.7% ?2.7% 08/17/1999 ??60 ?0.688 ?-1.5 ? 0.1% ? -0.4% 06/06/1997 ??58 ?0.690 ?-1.4 ? 0.4% ?0.4% 05/23/1996 ??57 ?0.687 ?-1.5 Total Hip(Left) 08/30/2012 ??71 ?0.806 ?-1.1 ?-6.0%# ?-6.0%* 07/19/2007 ??66 ?0.858 ?-0.7 ? 0.0%# ?-0.1% 06/16/2005 ??66 ?0.858 ?-0.7 ? 0.1%# ?-2.9%# 04/25/2002 ??63 ?0.884 ?-0.5 ? 3.1% ?2.5% 08/17/1999 ??60 ?0.862 ?-0.7 ? 0.5% ?2.4% 06/06/1997 ??58 ?0.842 ?-0.8 ?-1.8% ? -1.8% 05/23/1996 ??57 ?0.857 ?-0.7 * Indicates significant change # Denotes dissimilar scan types or analysis methods ?? IMPRESSION: ??- 1. The bone mineral density of the lumbar spine is normal. There has been a statistically significant increase in bone mineral density since the baseline examination of 05/23/1996. 2. The bone mineral density of the left femoral neck is mildly decreased. There has been a statistically significant decrease in bone mineral density since the baseline examination of 05/23/1996. 3. The bone mineral density of the left total hip is mildly decreased. There has been a statistically significant decrease in bone mineral density since the baseline examination of 05/23/1996. 4. Overall, the above findings are diagnostic of low bone mass (osteopenia) by WHO criteria. 5. Calculation of fracture risk using the FRAX model is not appropriate in certain settings. ??It was not performed in this patient because the patient met one or more of the following conditions: ??pre-menopausal status, man under age 50, normal bone density, use of hormonal therapy within 1 year, use of anti-resorptive therapy within two years, or bilateral hip replacements. General comments regarding interpretation of bone mineral density measurements: a) ??In children, premenopausal woman and males under [...] is consistent with a diagnosis of osteoporosis. b) ??In post menopausal women and males over [...] patients move from the younger population (group a) to the older population (group b) The National Osteoporosis Foundation (www.nof.org) recommends adequate intake of calcium and vitamin D and regular weight-bearing exercise in all patients. ??They recommend pharmacologic treatment in postmenopausal women and men age 50 and older presenting with any of the followin) ? Osteoporosis, after appropriate evaluation to exclude secondary causes. 2) ? A hip or vertebral (clinical or radiographic) fracture, regardless of the bone density. 3) ? Low bone mass (Osteopenia) and one or more of: other prior fractures, secondary causes associated with high risk of fracture (such as glucocorticoid use or total immobilization), or computed high risk of fracture (10-yr probability of hip fracture >= 3% or a 10-yr probability of any major osteoporosis-related fracture >= 20% based on the [place].-adapted WHO algorithm), available at http://www.shef.ac.uk/FRAX). ?? Requested By: Cassius Chambers ??M.D. Dictated By: ?? ROSANNE SALAZAR M.D. ??on Aug ??2012 ??9:24A This document has been electronically signed by: DI FREEMAN M.D. on Aug 30 2012 12:53P Procedure Note Provider, MD Edward - 06/22/2016 Bryan CARDONA M.D. FINAL REPORT The radiology attending physician has personally reviewed this study, and has reviewed and/or edited this written report and agrees with it. ACC# Date Time Exam [id number] Aug 30, 2012 09:15:00 82054 BONE DEXA (2 sites) EXAMINATION: BONE DENSITOMETRY OF THE SPINE AND HIP DATE OF STUDY: 08/30/2012 HISTORY: 71-year-old postmenopausal woman, evaluate bone mineral density for osteoporosis screening. FINDINGS (SPINE): The bone mineral density of L1-L4 was assessed by dual-energy x-ray absorptiometry. The average bone mineral density within this region is 1.042 gm/sq-cm. This is 2.3 standard deviations above the mean of the average bone mineral density for age- and gender-matched subjects (the Z-score). It is equal to the mean peak bone mineral density in young adults (the T-score). FINDINGS (FEMORAL NECK): The bone mineral density of the left femoral neck was assessed by dual-energy x-ray absorptiometry. The average bone mineral density within the femoral neck region is 0.657 gm/sq-cm. This is 0.3 standard deviations above the mean of the average bone mineral density for age- and gender-matched subjects (the Z-score). It is 1.7 standard deviations below the mean peak bone mineral density in young adults (the T-score). FINDINGS (TOTAL HIP): The bone mineral density of the left hip was assessed by dual-energy x-ray absorptiometry. The average bone mineral density within the total hip region is 0.806 gm/sq-cm. This is 0.6 standard deviations above the mean of the average bone mineral density for age- and gender-matched subjects (the Z-score). It is 1.1 standard deviations below the mean peak bone mineral density in young adults (the T-score). SUMMARY OF CURRENT RESULTS: Region Exam Date BMD T-Score Z-Score AP Spine (L1-L4) 08/30/2012 1.042 0.0 2.3 Femoral Neck (Left) 08/30/2012 0.657 -1.7 0.3 Total Hip (Left) 08/30/2012 0.806 -1.1 0.6 COMPARISON WITH PREVIOUS RESULTS Region Age BMD T-Score BMD Change BMD Change Exam Date g/cm2 vs Baseline vs Previous AP Spine(L1-L4) 08/30/2012 71 1.042 0.0 14.0%# 7.8%* 07/19/2007 66 0.966 -0.7 5.8%# -0.1% 06/16/2005 64 0.967 -0.7 5.9%# 1.9%# 08/17/1999 58 0.949 -0.9 3.9%* 3.9%* 05/23/1996 55 0.914 -1.2 Femoral Neck(Left) 08/30/2012 71 0.657 -1.7 -4.4%# -0.9% 07/19/2007 66 0.663 -1.7 -3.5%# -4.2% 06/16/2005 64 0.692 -1.4 0.8%# -1.9%# 04/25/2002 61 0.706 -1.3 2.7% 2.7% 08/17/1999 58 0.688 -1.5 0.1% -0.4% 06/06/1997 56 0.690 -1.4 0.4% 0.4% 05/23/1996 55 0.687 -1.5 Total Hip(Left) 08/30/2012 71 0.806 -1.1 -6.0%# -6.0%* 07/19/2007 66 0.858 -0.7 0.0%# -0.1% 06/16/2005 64 0.858 -0.7 0.1%# -2.9%# 04/25/2002 61 0.884 -0.5 3.1% 2.5% 08/17/1999 58 0.862 -0.7 0.5% 2.4% 06/06/1997 56 0.842 -0.8 -1.8% -1.8% 05/23/1996 55 0.857 -0.7 * Indicates significant change # Denotes dissimilar scan types or analysis methods IMPRESSION: - 1. The bone mineral density of the lumbar spine is normal. There has been a statistically significant increase in bone mineral density since the baseline examination of 05/23/1996. 2. The bone mineral density of the left femoral neck is mildly decreased. There has been a statistically significant decrease in bone mineral density since the baseline examination of 05/23/1996. 3. The bone mineral density of the left total hip is mildly decreased. There has been a statistically significant decrease in bone mineral density since the baseline examination of 05/23/1996. 4. Overall, the above findings are diagnostic of low bone mass (osteopenia) by WHO criteria. 5. Calculation of fracture risk using the FRAX model is not appropriate in certain settings. It was not performed in this patient because the patient met one or more of the following conditions: pre-menopausal status, man under age 50, normal bone density, use of hormonal therapy within 1 year, use of anti-resorptive therapy within two years, or bilateral hip replacements. General comments regarding interpretation of bone mineral density measurements: a) In children, premenopausal woman and males under [...] is consistent with a diagnosis of osteoporosis. b) In post menopausal women and males over [...] patients move from the younger population (group a) to the older population (group b) The National Osteoporosis Foundation (www.nof.org) recommends adequate intake of calcium and vitamin D and regular weight-bearing exercise in all patients. They recommend pharmacologic treatment in postmenopausal women and men age 50 and older presenting with any of the followin) Osteoporosis, after appropriate evaluation to exclude secondary causes. 2) A hip or vertebral (clinical or radiographic) fracture,regardless of the bone density. 3) Low bone [...] the [place].-adapted WHO algorithm), available at http://www.shef.ac.uk/FRAX). Requested By: Cassius Chambers M.D. Dictated By: ROSANNE SALAZAR M.D. on Aug 30 2012 9:24A This document has been electronically signed by: DI FREEMAN M.D. on Aug 30 2012 12:53P us Historical Provider MD [facility] DXA PROCEDURES Final Result documented in this encounter Visit Diagnoses Diagnosis Routine general medical examination at a health care facility Asymptomatic postmenopausal status Disorder of bone and cartilage Disorder of bone and cartilage, unspecified documented in this encounter
--- OUTSIDE RECORDS SUMMARY | 2024-02-28 15:39 | XMS_ITS | Encounter Summary ---
Author Organization [facility] Facility Care Team Providers Care Derrick Boat Captain Name Role Phone Unavailable Primary Care Provider Unavailabl e Encounter Details Date Type Department Care Team (Late st Contact Info) Description 04/28/2010 9:42 AM VACUUM CLEANER MECHANIC - 04/28/2010 4:00 PM [facility] Hospital Encounter [facility] Jordon Cristina MD [address] [place] [address] Follow-up examination, following other surgery; Benign neoplasm of colon; Diverticulosis of colon; Essential hypertension; Type 2 or unspecified type diabetes mellitus; Encounter for long-term (current) use of aspirin Social History Tobacco Use Types Packs/Day Years Used Date Smoking Tobacco: Never Assessed Comments Unknown Sex and Gender Information Value Date Recorded Sex Assigned at Not on file Legal Sex Female 11:30 PM VACUUM CLEANER MECHANIC Gender Identity Female 06/15/2023 1:45 PM CDT Sexual Orientation Straight 06/15/2023 1: 45 PM CDT documented as of this encounter Plan of Treatment Not on file documented as of this encounter Visit Diagnoses Diagnosis Follow-up examination, following other surgery Benign neoplasm of colon Diverticulosis of colon Diverticulosis of colon (without mention of hemorrhage) Essential hypertension Unspecified essential hypertension Type 2 or unspecified type diabetes mellitus Encounter for long-term (current) use of aspirin documented in this encounter
--- OUTSIDE RECORDS SUMMARY | 2024-02-28 15:39 | XMS_ITS | Encounter Summary ---
Author Organization [facility] Facility Care Team Providers Care Drophammer Operator Name Role Phone Unavailable Primary Care Provider Unavailabl e Encounter Details Date Type Department Care Team (Latest Contact Info) Description 12/30/2014 - 12/30/2014 11:59 PM COMMUNICATIONS LEAD Hospital Encounter [facility] Bo Holt MD [phone] [place] [address] Malignant neoplasm of rectum (CMS/HCC); Secondary malignant neoplasm of lung (CMS/HCC); Other specified postprocedural state; Encounter for other preprocedural examination; Encounter for [...] on file Legal Sex Female 11:30 PM COMMUNICATIONS LEAD Gender Identity Female 06/15/2023 1:45 PM CDT [...] Procedure Name Priority Date/Time Associated Diagnosis Comments CT CHEST W CONTRAST Routine 12/30/2014 1 0:45 AM COMMUNICATIONS LEAD PLASMA BASIC METABOLIC PANEL Routine 12/30/2014 7:40 AM COMMUNICATIONS LEAD BLOOD B-TYPE NATRIURETIC PEPTIDE (BNP) Routine 12/30/2014 7:40 AM COMMUNICATIONS LEAD BLOOD CELL COUNT (CBC) Routine 12/30/2014 7:40 AM COMMUNICATIONS LEAD DISCHARGE LABORATORY CUMULATIVE REPORT 12/30/2014 documented in this encounter Results * CT Chest W Contrast (12/30/2014 10:45 AM COMMUNICATIONS LEAD) Anatomical Region Laterality Modality Body N/A Computed Tomogra phy 12/30/2014 10:4 5 AM COMMUNICATIONS LEAD Narrative 12/30/2014 10:09 PM COMMUNICATIONS LEAD NADIRA JOSUE M.D. JUNIOR TOBIN M.D. FINAL REPORT The radiology attending physician has personally reviewed this study, and has reviewed and/or edited this written report and agrees with it. ACC# ??Date Time ??Exam [id number] Dec 30, 2014 10:45:[address] Chest with contrast EXAMINATION: ?CT of the chest with intravenous contrast HISTORY: Pulmonary hypertension and mitral valve regurgitation. Preoperative evaluation. TECHNIQUE: ??Transaxial computed tomographic images of the chest were obtained after the uneventful administration of 94 ml of Optiray 350 intravenous contrast according to dissection protocol. FINDINGS: ??No prior studies available for comparison. Measurements: The innominate artery is 12 mm from the sternal notch. The left brachiocephalic vein is 5 mm from the mid manubrium. The ascending aorta is 17 mm from the sternal manubrial junction. The right ventricle is10 mm from the inferior sternum. Aravind biatrial enlargement is seen, left greater than right. Mitral annular calcifications are noted. No pericardial effusion is seen. The abdominal aorta is normal. There is a three-vessel arch. Patient's is status post left mastectomy with left axillary lymph node dissection. No axillary, mediastinal or hilar adenopathy seen. 5 mm prevascular lymph node noted. Mild bibasilar subsegmental atelectasis is seen with mild air trapping. No focal consolidation, pleural effusion or pneumothorax seen. Images of the upper abdomen demonstrate a large calcified gallstone. Scattered colonic diverticula are seen. Bone windows demonstrate an old compression deformity of L1 with approximately 25% loss of height. IMPRESSION: ? Mitral annular calcifications with associated biatrial enlargement. Requested By: Dictated By: ?? JUNIOR TOBIN M.D. ??on Dec?2014 ??1:26P This document has been electronically signed by: NADIRA JOSUE M.D. on Dec ??2014 10:09P [id number] Procedure Note Provider, MD Edward - 06/22/2016 NADIRA JOSUE M.D. JUNIOR TOBIN M.D. FINAL REPORT The radiology attending physician has personally reviewed this study, and has reviewed and/or edited this written report and agrees with it. [facility]# Date Time Exam [id number] Dec 30, 2014 10:45:[id number] Chest with contrast EXAMINATION: CT of the chest with intravenous contrast HISTORY: Pulmonary hypertension and mitral valve regurgitation. Preoperative evaluation. TECHNIQUE: Transaxial computed tomographic images of the chest were obtained after the uneventful administration of 94 ml of Optiray 350 intravenous contrast according to dissection protocol. FINDINGS: No prior studies available for comparison. Measurements: The innominate artery is 12 mm from the sternal notch. The left brachiocephalic vein is 5 mm from the mid manubrium. The ascending aorta is 17 mm from the sternal manubrial junction. The right ventricle is10 mm from the inferior sternum. Aravind biatrial enlargement is seen, left greater than right. Mitral annular calcifications are noted. No pericardial effusion is seen. The abdominal aorta is normal. There is a three-vessel arch. Patient's is status post left mastectomy with left axillary lymph node dissection. No axillary, mediastinal or hilar adenopathy seen. 5 mm prevascular lymph node noted. Mild bibasilar subsegmental atelectasis is seen with mild air trapping. No focal consolidation, pleural effusion or pneumothorax seen. Images of the upper abdomen demonstrate a large calcified gallstone. Scattered colonic diverticula are seen. Bone windows demonstrate an old compression deformity of L1 with approximately 25% loss of height. IMPRESSION: Mitral annular calcifications with associated biatrial enlargement. Requested By: Dictated By: JUNIOR TOBIN M.D. on Dec 30 2014 1:26P This document has been electronically signed by: NADIRA JOSUE M.D. on Dec 30 2014 10:09P [id number] Historical Provider IMG CT PROCEDURES Final R esult * (ABNORMAL) Plasma basic metabolic panel (12/30/2014 7:40 AM COMMUNICATIONS LEAD) Sodium 140 135 - 145 mmol/L HISTORICAL RESULTS K, pl 3.8 3.3 - 4.9 mmol/L HISTORICAL RESULTS Chloride 105 97 - 110 mmol/L HISTORICAL RESULTS CO2 19(L) 22 - 32 mmol/L HISTORICAL RESULTS A. gap 16 0 - 16 mmol/L HISTORICAL RESULTS Glucose 90 70 - 199 mg/dl HISTORICAL RESULTS BUN 17 8 - 25 mg/dl HISTORICAL RESULTS Creatinine 0.77 0.60 - 1.10 mg/dl HISTORICAL RESULTS Calcium 9.1 8.6 - 10.3 mg/dl HISTORICAL RESULTS Plasma 12/30/2014 7:4 0 AM COMMUNICATIONS LEAD Narrative HISTORICAL RESULTS - 12/30/2014 10:13 AM COMMUNICATIONS LEAD Client / Account bill? No Client Account Number and Description: Bo Cuellar MD LAB BLOOD ORDERABLES Final Re sult HISTORICAL RESULTS * (ABNORMAL) Blood cell count (CBC) (12/30/2014 7:40 AM COMMUNICATIONS LEAD) WBC 8.6 3.8 - 9.8 K/cumm HISTORICAL RESULTS RBC 5.10(H) 3.90 - 5.00 M/cumm HISTORICAL RESULTS Hgb 14.2 12.1 - 15.1 g/dl HISTORICAL RESULTS Hct 44.9(H) 36.1 - 44.3 % HISTORICAL RESULTS MCV 88.1 80.0 - 97.6 fl HISTORICAL RESULTS MCH 27.8 26.7 - 33.7 pg HISTORICAL RESULTS MCHC 31.6(L) 32.7 - 35.5 g/dl HISTORICAL RESULTS Rdw 13.9 11.8 - 14.6 % HISTORICAL RESULTS Platelets 235 140 - 440 K/cumm HISTORICAL RESULTS MPV 9.5 6.8 - 10.4 fl HISTORICAL RESULTS Neutrophils 66.8 38.7 - 74.5 % HISTORICAL RESULTS Lymphocytes 25.0 20.0 - 54.3 % HISTORICAL RESULTS Monos 6.2 4.3 - 13.5 % HISTORICAL RESULTS Eosinophils 1.2 0.0 - 6.0 % HISTORICAL RESULTS Basophils 0.8 0.0 - 3.0 % HISTORICAL RESULTS Neutrophils, abs 5.7 1.8 - 6.6 K/cumm HISTORICAL RESULTS Lymphocytes, abs 2.1 1.2 - 3.3 K/cumm HISTORICAL RESULTS Monocytes, absolute 0.5 0.2 - 1.2 K/cumm HISTORICAL RESULTS Eosinophils, abs 0.1 0.0 - 0.5 K/cumm HISTORICAL RESULTS Basophils, abs 0.1 0.0 - 0.2 K/cumm HISTORICAL RESULTS Blood specimen (specimen) 12/30/2014 7:40 AM COMMUNICATIONS LEAD Narrative HISTORICAL RESULTS - 12/30/2014 8:36 AM COMMUNICATIONS LEAD Client / Account bill? No Client Account Number and Description: Bo Cuellar MD LAB BLOOD ORDERABLES Final Re sult HISTORICAL RESULTS * (ABNORMAL) Blood B-type natriuretic peptide (BNP) (12/30/2014 7:40 AM COMMUNICATIONS LEAD) BNP 409(H) 0 - 100 pg/ml HISTORICAL RESULTS Blood specimen (specimen) 12/30/2014 7:40 AM COMMUNICATIONS LEAD Narrative HISTORICAL RESULTS - 12/30/2014 10:23 AM COMMUNICATIONS LEAD Client / Account bill? No Client Account Number and Description: Bo Cuellar MD LAB BLOOD ORDERABLES Final Re sult HISTORICAL RESULTS * DISCHARGE LABORATORY CUMULATIVE REPORT (12/30/2014) Narrative 12/30/2014 Ordered by an unspecified provider. 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
--- OUTSIDE RECORDS SUMMARY | 2024-02-28 15:39 | XMS_ITS | Encounter Summary ---
Author Organization [facility] Facility Care Team Providers Care Multimedia Assistant Name Role Phone Unavailable Primary Care Provider Unavailabl e Encounter Details Date Type Department Care Team (Late st Contact Info) Description 11/17/2006 - 11/17/2006 11:59 PM CDT Hospital Encounter [facility] Velma Mayer MD [address] [place] [address] Social History Tobacco Use Types Packs/Day Years Used Date Smoking Tobacco: Never Assessed Comments Unknown Sex and Gender Information Value Date Recorded Sex Assigned at Not on file Legal Sex Female 11:30 PM 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
--- OUTSIDE RECORDS SUMMARY | 2024-02-28 15:39 | XMS_ITS | Encounter Summary ---
Author Organization [facility] Facility Care Team Providers Care Jumpbasting Facing Baster Name Role Phone Unavailable Primary Care Provider Unavailabl e Encounter Details Date Type Department Care Team (Late st Contact Info) Description 05/14/2013 - 05/14/2013 11:59 PM CDT Hospital Encounter [facility] Cassius Cummings MD [address] [address] Encounter for screening mammogram for high-risk patient; Personal history of malignant neoplasm of breast; Acquired absence of breast and absent nipple Social History Tobacco Use Types Packs/Day Years Used Date Smoking Tobacco: Never Assessed Comments Unknown Sex and Gender Information Value Date Recorded Sex Assigned at Not on file Legal Sex Female 11:30 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 FINAL REPORT ACC# ??Date Time ??Exam [id number] May 14, 2013 11:12:00 [facility] [id number] Mastectomy Screen w Sourav R ?? Technologist(s): Nat Mercado; ; EXAMINATION: ??Mammogram Technique: Right Unilateral Full-Field Digital Screening Mammogram and Digital Breast Tomosynthesis were performed. ??Views obtained: ??right craniocaudal and right mediolateral oblique. ??Computer Aided Detection of the 2D images was performed with [employer].3 version 9.3. Mammogram Findings: The present examination has been compared to prior imaging studies performed at [facility] on 04/19/2012, 03/10/2011 and 01/26/2010. There are scattered fibroglandular densities. There is no suspicious abnormality in the right breast. Patient status post contralateral mastectomy for personal history of breast cancer. IMPRESSION: ??Annual screening mammography is recommended. OVERALL FINAL ASSESSMENT: BI-RADS CATEGORY 1: ??Negative. Requested By: Cassius Chambers ??M.D. Dictated By: ?? KATELYN MEEKS M.D. ??on May 15 2013 10:18A This document has been electronically signed by: KATELYN MEEKS M.D. on May 15 2013 10:17A Procedure Note Provider, MD Edward - 06/22/2016 KATELYN MEEKS M.D. FINAL REPORT ACC# Date Time Exam [id number] May 14, 2013 11:12:00 [facility] [id number] Mastectomy Screen w Sourav R Technologist(s): Nat Mercado; ; EXAMINATION: Mammogram Technique: Right Unilateral Full-Field Digital Screening Mammogram and Digital Breast Tomosynthesis were performed. Views obtained: rightcraniocaudal and right mediolateral oblique. Computer Aided Detection of the 2Dimages was performed with [employer].3 version 9.3. Mammogram Findings: The present examination has been compared to prior imaging studies performed at [facility] on 04/19/2012, 03/10/2011 and 01/26/2010. There are scattered fibroglandular densities. There is no suspicious abnormality in the right breast. Patient status post contralateral mastectomy for personal history of breast cancer. IMPRESSION: Annual screening mammography is recommended. OVERALL FINAL ASSESSMENT: BI-RADS CATEGORY 1: Negative. Requested By: Cassius Chambers M.D. Dictated By: KATELYN MEEKS M.D. on May 15 2013 10:18A This document has been electronically signed by: KATELYN MEEKS M.D. on May 15 2013 10:17A us Historical Provider MD [facility] MAMMO PROCEDURES Miranda l Result documented in this encounter Visit Diagnoses Diagnosis Encounter for screening mammogram for high-risk patient Personal history of malignant neoplasm of breast 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
--- OUTSIDE RECORDS SUMMARY | 2024-02-28 15:50 | XMS_ITS | Encounter Summary ---
Author Organization [employer] Address [address] [place] [address] Care Team Providers Care Manager Location Name Role Phone Unavailable Primary Care Provider Unavailabl e Encounter Details Date Type Department Care Team (Latest Contact Info) Description 07/19/2002 Outpatient Historical [facility],NON-PATIENT Sheng Guzmán POSTMENOPAUSAL BLEEDING (Primary Dx) Social History Tobacco Use Types Packs/Day Years Used Date Smoking Tobacco: Never Assessed Sex and Gender Information Value Date Recorded Sex Assigned at Not on file Gender Identity Not on file Sexual Orientation Not on file documented as of this encounter Plan of Treatment Not on file documented as of this encounter Visit Diagnoses Diagnosis Postmenopausal bleeding- Primary documented in this encounter
--- OUTSIDE RECORDS SUMMARY | 2024-02-28 15:50 | XMS_ITS | Clinical Summary ---
Author Organization [facility] Address [address] Attn: Epic Prelude ADT [place]IN [address] Care Team Providers Care Real Estate Lawyer Name Role Phone Unavailable Primary Care Provider Unavailabl e Social History Tobacco Use Types Packs/Day Years Used Date Smoking Tobacco: Never Assessed Sex and Gender Information Value Date Recorded Sex Assigned at Not on file Gender Identity Not on file Sexual Orientation Not on file Plan of Treatment Health Maintenance Due Date Last Done Comments DTAP/TDAP/TD VACCINES (1 - Tdap) 1957 ZOSTER VACCINE (1 of 2) 1988 OSTEOPOROSIS SCREENING 11/30/2003 PNEUMOCOCCAL VACCINE 65+ YEARS (1 of 1 - PCV) 11/30/19 04 RSV VACCINE (60+ or ) (1 - 1-dose 75+ series) 2013 INFLUENZA VACCINE (#1) 2023
== END 2024-02-21 09:22 | disposition home or self-care (01) ==
PROVIDERS: PCP Internal Medicine; Referring Provider Internal Medicine Cardiovascular Disease; Visit Provider Student in an Organized Health Care Education/Training Program
DX: E11.9 Type 2 diabetes mellitus without complications (principal); G45.9 Transient cerebral ischemic attack, unspecified; I63.9 Cerebral infarction, unspecified; R41.89 Other symptoms and signs involving cognitive functions and awareness; E78.5 Hyperlipidemia, unspecified
CPT/HCPCS: 36415; 80048; 82607; 82746; 83036; 83721; 83880; 84443

== ENCOUNTER 2024-03-06 20:23 | Inpatient (IN) | payer MEDICARE, OTHER, SELFPAY ==
[2024-03-06] VITALS (13 sets, daily range): BP systolic 172–209; BP diastolic 75–84; PULSE 68–74; RESP 16–32; TEMP 36.4; O2SAT 96–100
--- NOTE | ~2024-03-06 | XR_ITS ---
EXAMINATION: XR barium swallow modified DATE: 03/12/2024 12:01 INDICATION: Dysphagia. TECHNIQUE: The patient was given barium-containing material of multiple consistencies to swallow by t he speech pathologist while I performed fluoroscopy. Fluoroscopy exposure time was 0.9 minutes. The n umber of fluoroscopy images saved to the PACS was 4. Dose-area product was 0.869 Gy-cm^2. FINDINGS: The oral stage, pharyngeal stage, and cervical/esophageal stage of the swallow are normal. IMPRESSION: 1. Normal modified barium swallow. 2. Please refer to the speech therapy report for recommendations. Reviewed, dictated and finalized at location A. N RESOURCES DIRECTOR
--- NOTE | ~2024-03-06 | MR_ITS ---
EXAMINATION: MR brain/brain stem wo con DATE: 03/08/2024 16:04 INDICATION: Stroke. Right facial weakness. TECHNIQUE: Magnetic resonance imaging (MRI) of the brain and brainstem was performed without intraven ous contrast. COMPARISON: Head CT 03/04/2024, brain MRI 03/22/2022 FINDINGS: There is an acute infarct in left parietal lobe. There is an old infarct in right parietal occipital region. There is an old infarct involving the left basal ganglia and left insula. There are scattered areas of nonspecific increased T2-weighted signal intensity in the cerebral white matter. There is no acute intracranial hemorrhage or abnormal mass lesion. The ventricles are normal in size. There are likely changes of ocular lens replacement surgeries. The paranasal sinuses are clear. The mastoid air cells are normal. IMPRESSION: 1. Acute infarct in the left parietal lobe. 2. 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 3. Moderate nonspecific cerebral white matter disease, which likely represents chronic small vessel i schemic disease. Reviewed, dictated and finalized at location A. S SUPPORT ASSISTANT IMPRESSION: 1. Acute infarct in the left parietal lobe. 2. 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 3. Moderate nonspecific cerebral white matter disease, which likely represents chronic small vessel ischemic disease.
--- NOTE | ~2024-03-06 | CT_ITS ---
CLINICAL INDICATION: Fall. COMPARISON: None. TECHNIQUE: Computed tomography (CT) of the pelvis was performed without intravenous contrast. The dos e-length product was 577.54 mGy-cm. FINDINGS/OBSERVATIONS: Gastrointestinal tract: Fecal stasis within the colon with colonic diverticulosis. No surrounding inflammatory changes identified to suggest the presence of acute diverticulitis Appendix:The air-filled appendix is of normal caliber (axial series, images 26-31). Vasculature: Calcified atherosclerotic disease. Bilateral superficial femoral artery stents. Lymph nodes: No pathologically enlarged or morphologically within the visualized retroperitoneum or p atif. Pelvic structures:The bladder is decompressed. The uterus is anteverted and retroflexed. Bones: No acute fractures within the visualized osseous structures. IMPRESSION: No acute fractures. Diverticulosis. Reviewed, dictated and finalized at location A. RATORY SCIENTIST
--- NOTE | ~2024-03-06 | MR_ITS ---
EXAMINATION: MR lumbar spine wo con DATE: 03/13/2024 12:14 INDICATION: Thoracic lytic lesion of bone. TECHNIQUE: Magnetic resonance imaging (MRI) of the lumbar spine was performed without intravenous con trast. Sequences included sagittal T2-weighted FSE, sagittal T2-weighted FS FSE, sagittal T1-weighted FSE, and axial T2-weighted FSE. COMPARISON: CT 03/12/2024 FINDINGS: There is 3 degrees levocurvature of lumbar spine. There is 5 mm anterolisthesis of L4 on L5 . There are chronic burst fractures of T12 and L1 with changes of vertebroplasties and mild central c anal stenosis. There is severely decreased disc height from L2-L3 through L4-L5. There is ligamentum flavum hypertrophy at the disc levels from L2-L3 through L4-L5. The distal spinal cord signal intensi ty is normal. The conus medullaris is at L1. The following disc levels are specifically discussed: L1-L2: The disc is bulging. There is mild bilateral facet joint osteoarthritis. There is mild bilater al neural foraminal stenosis. There is no central canal stenosis. L2-L3: The disc is bulging with superimposed central extrusion There is severe bilateral facet joint osteoarthritis. There is moderate bilateral neural foraminal stenosis. There is mild central canal st enosis. L3-L4: The disc is bulging with superimposed central extrusion. There is moderate right and severe le ft facet joint osteoarthritis. There is mild bilateral neural foraminal stenosis. There is mild centr al canal stenosis. L4-L5: The disc does not extend beyond the endplate margin. There is severe bilateral facet joint ost eoarthritis. There is mild bilateral neural foraminal stenosis. There is no central canal stenosis. L5-S1: There is a central protrusion. There is severe bilateral facet joint osteoarthritis. There is no neural foraminal stenosis. There is mild central canal stenosis. IMPRESSION: 1. No abnormal lytic lesion of bone. 2. Severe lumbar spondylosis. Reviewed, dictated and finalized at location A. F CERTIFIED NURSE MIDWIFE
--- NOTE | ~2024-03-06 | CT_ITS ---
History: Fall PROCEDURE: CT head without contrast. COMPARISON: 03/08/2024. Reference is also made to an MRI examination of the brain dated 03/08/2024 TECHNIQUE: Axial imaging of the head performed from the skull base to the vertex without IV contrast. Sagittal a nd coronal reformations obtained. DLP: 605 mGy-cm FINDINGS: The ventricles are dilated. The dilatation of the ventricles is proportional to the degree of sulcal prominence, not uncommon in the senescent brain. Decreased attenuation is identified within the periventricular white matter, likely secondary to micr ovascular ischemic disease, in a patient of this age. Gliosis and encephalomalacia within right parietal occipital lobe. Further evolution of the acute cerebral infarction within the left temporal lobe, without hemorrhagic conversion. There is no mass, mass effect or midline shift. There is no abnormal extra-axial fluid collection or intracranial hemorrhage. Visualized paranasal sinuses are clear. The mastoid air cells are well aerated. Bilateral hearing devices within the external canals. No acute displaced fractures within the overlying cranium. Impression: No acute intracranial hemorrhage or suspicious mass effect. Findings consistent with patient's known bilateral cerebral infarctions, as detailed above. Reviewed, dictated and finalized at location A. ICE MAKER Impression: No acute intracranial hemorrhage or suspicious mass effect. Findings consistent with patient's known bilateral cerebral infarctions, as det leroy above.
--- NOTE | ~2024-03-06 | XR_ITS ---
CHEST RADIOGRAPH CLINICAL HISTORY: Dyspnea, COUGH FOR 2 WKS . COMPARISON: 01/25/2023 TECHNIQUE: Single portable view of the chest. FINDINGS Sternal wires and mediastinal clips are identified, the wires are midline and intact. Prosthetic valve is detected in the aortic position. The remainder of the cardiomediastinal silhouette is otherwise unremarkable. The lungs are clear. Microclip's in the left axilla. Soft tissue asymmetry along the anterior chest wall. IMPRESSION: No focal infiltrate or effusion. Reviewed, dictated and finalized at location A. ESTATE CONSULTANT
--- NOTE | ~2024-03-06 | CT_ITS ---
EXAMINATION: CTA brain carotid DATE: 03/08/2024 14:31 INDICATION: Right facial weakness. TECHNIQUE: Computed tomographic angiography (CTA) of the head was performed with 100 mL Omnipaque-350 intravenous contrast. CTA of the neck was performed with intravenous contrast. Automated exposure co ntrol and iterative reconstruction technique were employed. The dose-length product was 885.43 mGy-cm . Maximum intensity projection and volume rendered 3D-reconstructions were created by the technColondee t on a separate workstation. COMPARISON: Head CT 03/08/2024 FINDINGS: HEAD CTA: There are old infarcts involving the right parietal occipital region, left basal ganglia, a nd left insula. There are scattered areas of low attenuation in the cerebral white matter. There is n o intracranial hemorrhage, acute infarction, or abnormal intracranial mass lesion. The ventricles are normal in size. There are likely changes of ocular lens replacement surgeries. The mastoid air cells are normal. There is minimal mucosal thickening in the paranasal sinuses. The vertebral arteries are codominant. There is no significant stenosis of basilar artery. There is severe stenosis of the P1 p osterior cerebral arteries. The posterior communicating arteries are normal. There is moderate stenos is of intracranial right internal carotid artery. There is moderate stenosis of M2 branches of right middle cerebral artery. There is moderate stenosis of left M1 and M2 middle cerebral artery segments. Anterior communicating artery is normal. Right A1 anterior cerebral artery segment is small, a nancy l variant. There is no aneurysm. NECK CTA: There are nodules in the thyroid measuring up to 15 mm. There is no significant stenosis of the vertebral arteries. There is plaque in the proximal internal carotid arteries. There is 0% steno sis of the proximal right internal carotid artery relative to normal distal artery lumen diameter (NA SCET criteria). There is 42% stenosis of the proximal left internal carotid artery relative to normal distal artery lumen diameter. There is severe cervical spondylosis. IMPRESSION: 1. 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 2. Moderate nonspecific cerebral white matter disease, which likely represents chronic small vessel i schemic disease. 3. Severe stenosis of the bilateral P1 posterior cerebral arteries. Moderate stenosis of intracranial right internal carotid artery and bilateral middle cerebral artery segments. 4. 0% stenosis of the proximal right internal carotid artery relative to normal distal artery lumen d iameter (NASCET criteria). 5. 42% stenosis of the proximal left internal carotid artery relative to normal distal artery lumen d iameter. Reviewed, dictated and finalized at location A. ARY SERVICES COORDINATOR IMPRESSION: 1. Old infarcts involving the right parietal occipital region, left basal gangl ia, and left insula. 2. Moderate nonspecific cerebral white matter disease, which likely represents chronic small vessel ischemic disease. 3. Severe stenosis of the bilateral P1 posterior cerebral arteries. Moderate st enosis of intracranial right internal carotid artery and bilateral middle cereb ral artery segments. 4. 0% stenosis of the proximal right internal carotid artery relative to normal distal artery lumen diameter (NASCET criteria). 5. 42% stenosis of the proximal left internal carotid artery relative to normal distal artery lumen diameter.
--- NOTE | ~2024-03-06 | CT_ITS ---
EXAMINATION: CT brain wo con DATE: 03/08/2024 14:27 INDICATION: Right facial weakness. TECHNIQUE: Computed tomography (CT) of the head was performed without intravenous contrast. The mA wa s adjusted according to patient size. Iterative reconstruction technique was employed. The dose-lengt h product was 605.33 mGy-cm. COMPARISON: Head CT 03/21/2022 FINDINGS: There are old infarcts in the left basal ganglia and left insula. There is an old infarct i nvolving the right parietal occipital region. There are scattered areas of low attenuation in the cer ebral white matter. There is no intracranial hemorrhage, acute infarction, or abnormal intracranial m ass lesion. The ventricles are normal in size. There are likely changes of ocular lens replacement shaikh rgeries. There is mild mucosal thickening in the paranasal sinuses. The mastoid air cells are normal. IMPRESSION: 1. 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 2. Stable moderate nonspecific cerebral white matter disease, which likely represents chronic small v essel ischemic disease. 3. I discussed this result with Agata Cabrera. Reviewed, dictated and finalized at location A. ELIER IMPRESSION: 1. 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 2. Stable moderate nonspecific cerebral white matter disease, which likely repr esents chronic small vessel ischemic disease. 3. I discussed this result with Agata Cabrera.
--- NOTE | ~2024-03-06 | MR_ITS ---
EXAMINATION: MR thoracic spine wo con DATE: 03/13/2024 16:27 INDICATION: T1 lytic lesion. TECHNIQUE: Magnetic resonance imaging (MRI) of the thoracic spine was performed without intravenous c ontrast. COMPARISON: Thoracic spine CT 03/12/2024 FINDINGS: There is 3 degrees dextrocurvature of thoracic spine. There is 5 degrees levocurvature of c ervicothoracic spine. There are chronic burst fractures of T12 and L1 with changes of vertebroplasty and mild central canal stenosis. There are Schmorl's nodes at multiple levels. There is moderate to s everely decreased disc height from T5-T6 through T8-T9 with endplate remodeling. There is severe cerv ical spondylosis. At T6-T7, there is a left central extrusion with mild central canal stenosis. At T7 -T8 and T8-T9, the discs are bulging with mild central canal stenosis. There is multilevel facet join t osteoarthritis, severe at many levels. There is mild neural foraminal stenosis at many levels on ei ther side. There is moderate neural foraminal stenosis on the right at T11-T12. The spinal cord signa l intensity is normal. IMPRESSION: 1. No abnormal lytic lesion of bone. 2. Severe mid thoracic spondylosis. Reviewed, dictated and finalized at location A. MANUFACTURING SUPERVISOR
--- NOTE | ~2024-03-06 | CT_ITS ---
History: Fall PROCEDURE: CT cervical spine without intravenous contrast. COMPARISON: 03/09/2022 TECHNIQUE: Multiple contiguous axial images of the cervical spine were performed without the administration of i ntravenous contrast. DLP: 333 mGy-cm FINDINGS: Straightening and slight reversal of the normal curvature of the cervical spine is identified, likely muscular in origin. Severe degenerative disease is identified, with osteophyte formation, disc space narrowing, endplate changes and vacuum phenomena. No acute fractures are present. Right apical scarring with diffuse groundglass opacification. The left lung apex is clear. No discrete soft tissue abnormality is present. The airway is patent. Impression: Severe degenerative disease, without acute fracture. Diffuse groundglass opacification within the right apex. Reviewed, dictated and finalized at location A. UATOR TRANSFER STUDENTS Impression: Severe degenerative disease, without acute fracture. Diffuse groundglass opacification within the right apex.
--- NOTE | ~2024-03-06 | CT_ITS ---
History: Fall PROCEDURE: CT lumbar thoracic and spine without intravenous contrast. COMPARISON: 03/22/2020 TECHNIQUE: Multiple contiguous axial images of the thoracic and lumbar spine were performed without the administ ration of intravenous contrast. DLP: mGy-cm FINDINGS: Within the thoracic spine: Irregular lucency within the vertebral body of T1, which may represent acute fracture versus nutrient foramen. This abnormality is best seen on sagittal view, image 30. This abnormality is poorly visualized on axial and coronal images, and is likely artifactual, but the sagittal view is quite convincing. No significant abnormality is identified within the surrounding s oft tissues. No additional lucencies are present Within the lumbar spine: Prior vertebral augmentation at the levels of L1 and T12 Preservation of the normal lordotic curvature of the lumbar spine is identified. No acute compression fractures are present. No superficial soft tissue abnormality is noted. Impression: Indeterminate lucency within the vertebral body of T1, to the right of midline which may be artifactu al in origin. Clinical correlation is needed regarding point tenderness, which if present, MRI is rec ommended. Severe degenerative disease, without additional abnormality within the remaining vertebral bodies of the spine. Reviewed, dictated and finalized at location A. TRICAL DESIGN TECHNOLOGIST Impression: Indeterminate lucency within the vertebral body of T1, to the right of midline which may be artifactual in origin. Clinical correlation is needed regarding po int tenderness, which if present, MRI is recommended. Severe degenerative disease, without additional abnormality within the remainin g vertebral bodies of the spine.
[2024-03-06] MEDS: hydrALAZINE HCL 20 MG/ML VIAL 10 MG IV PUSH (23:31)
[2024-03-06 23:33] LABS: Basophils Absolute Auto 0.1 K/mm3 (0.0-0.1); Basophils Percent Auto 0.7 % (0.2-1.2); Eosinophils Absolute Auto 0.2 K/mm3 (0-0.3); Eosinophils Percent Auto 2.5 % (0-4.4); Hemoglobin 14.6 g/dL (12.0-15.0); Immature Granulocyte Absolute 0.04 K/mm3 (0.00-0.031); Immature Granulocyte Percent A 0.4 % (0-0.5); Lymphocytes Absolute Auto 2.85 K/mm3 (0.9-3.2); Lymphocytes Percent Auto 29.1 % (18.3-44.2); Mean Corpuscular HGB Conc 32.4 g/dl (32-36); Mean Corpuscular Hemoglobin 27.3 pg (26-34); Mean Corpuscular Volume 84.1 fl (80-100); Mean Platelet Volume 11.1 fl (7.4-10.4); Monocytes Absolute Auto 0.5 K/mm3 (0.1-0.6); Monocytes Percent Auto 5.2 % (2.6-8.5); Neutrophils Absolute Auto 6.1 K/mm3 (1.3-6.7); Neutrophils Percent Auto 62.1 % (45.5-73.1); Platelet Count Result 191 k/mm3 (150-375); Red Blood Count 5.35 M/mm3 (4.2-5.4); Red Cell Distribution Width 13.1 % (11.5-14.5); White Blood Count 9.8 K/mm3 (4.5-10.0)
[2024-03-06 23:44] LABS: Alanine Aminotransferase 21 U/L (6-35); Albumin Level 3.7 g/dL (3.5-5.1); Alkaline Phosphatase 108 U/L (38-126); Anion Gap 7 mmol/L (4-12); Aspartate Amino Transferase 23 U/L (14-36); Bilirubin,Total 0.4 mg/dL (0.2-1.3); Blood Urea Nitrogen 20 mg/dL (7-17); Calcium 8.6 mg/dL (8.4-10.2); Carbon Dioxide 28 mmol/L (22-30); Chloride 105 mmol/L (98-107); Estimated CRCL calculation 35 ml/min; Estimated Glomerular Filt Rate 60; Glucose 179 mg/dL (65-110); Lactic Acid Reflex 1.5 mmol/L (0.7-2.0); Lipase 53 U/L (23-300); Potassium 3.5 mmol/L (3.4-5.0); Sodium 140 mmol/L (137-145)
[2024-03-06 23:46] LABS: INR 1.2; Prothrombin Time 15.2 Seconds (11.1-14.7)
[2024-03-06 23:55] LABS: NT Pro B Type Natriuretic Pept 1170 pg/mL (19.9-100); Troponin I < 0.012 ng/mL (0.000-0.034)
[2024-03-07] VITALS (22 sets, daily range): BP systolic 136–186; BP diastolic 50–129; PULSE 65–84; RESP 14–41; TEMP 36.3–37.1; O2SAT 92–100; BMI 29.0
--- NOTE | 2024-03-07 | ECHO_ITS ---
Patient Info Name: Yuliana Johnson Age: 83 years : 1940 Gender: Female Ht: 61 in Wt: 153 lbs BSA: 1.75 m2 HR: 72 bpm BP: 207 / 95 mmHg Heart Rhythm: Sinus Rhythm Technical Quality: Good Exam Date: 03/07/2024 11:43 AM Exam Location: Echo Lab Exam Room: [facility] Patient Status: Inpatient Admit Date: 03/07/2024 Staff Ordering Physician: Agata Cabrera PA-C Pricing Director: Pricilla Santamaria RDCS Attending Provider: Agata Cabrera PA-C Referring Physician: Rick MATHEWS; Exam Type: CA echo doppler color flow Study Info Complete two-dimensional, color flow and Doppler transthoracic echocardiogram is performed. Summary 1. Left ventricular chamber dimension is normal. 2. Left ventricular systolic function is normal, estimated at 65-70%. 3. There is mildly increased left ventricular wall thickness. 4. The left ventricular diastolic function is grade I diastolic dysfunction. 5. Right ventricular systolic function is normal. 6. Left atrial chamber dimension is moderately enlarged. 7. Right atrial chamber dimension is moderately enlarged. 8. There is mild aortic valve regurgitation. 9. Known history of mitral valve repair with 26mm annuloplasty Physio II ring. 10. There is no mitral valve regurgitation. 11. Known history of tricuspid valve repair with 32mm annuloplasty ring. 12. There is no tricuspid valve regurgitation. Left Ventricle Left ventricular chamber dimension is normal. Left ventricular systolic function is normal, estimated at 65-70%. There is mildly increased left ventricular wall thickness. The left ventricular diastolic function is grade I diastolic dysfunction. Right Ventricle Right ventricular chamber dimension is normal. Right ventricular systolic function is normal. Left Atria Left atrial chamber dimension is moderately enlarged. Right Atria Right atrial chamber dimension is moderately enlarged. Atrial Septum Intact interatrial septum visualized by color flow imaging. Aortic Valve The aortic valve is trileaflet. There is no aortic valve stenosis. There is mild aortic valve regurgitation. Pulmonic Valve The pulmonic valve is not well visualized. There is trace pulmonic regurgitation. Mitral Valve Known history of mitral valve repair with 26mm annuloplasty Physio II ring. There is no mitral valve stenosis. There is no mitral valve regurgitation. Tricuspid Valve Known history of tricuspid valve repair with 32mm annuloplasty ring. There is no tricuspid valve regurgitation. Pericardium/Pleural There is no pericardial effusion. Inferior Vena Cava Normal inferior vena cava with >50% collapse upon inspiration consistent with normal right atrial pressure, 3 mmHg. Aorta The aortic root size at the sinus of Valsalva is normal. Left Ventricular Outflow Tract Name Value Normal LVOT 2D LVOT Diameter 2.0 cm LVOT Doppler LVOT Peak Gradient 6 mmHg LVOT Mean Gradient 1 mmHg LVOT VTI 22 cm LVOT VTI/AV VTI Ratio 0.9 LVOT Stroke Volume 73 ml LVOT CO 5.2 l/min LVOT CI 3.1 l/min/m2 Pulmonic Valve Name Value Normal PV Doppler PV Peak Gradient 2 mmHg PV Regurgitation Doppler [place] Peak End Diastolic Velocity 129 cm/s Mitral Valve Name Value Normal MV Doppler MV Peak Gradient 5 mmHg MV Mean Gradient 2 mmHg MV Decel [place] 529 cm/s2 MV PHT 59 ms MV Area (PHT) 3.7 cm2 4.0-5.0 MV Area (Cont Eq VTI) 1.7 cm2 MV Diastolic Function MV E Peak Velocity 107 cm/s MV A Peak Velocity 89 cm/s MV E/A 1.2 MV Decel Time 202 ms MV Annular TDI MV E/e' (Septal) 38.4 <=8.0 MV E/e' (Lateral) 17.1 <=8.0 MV E/e' (Average) 27.7 Tricuspid Valve Name Value Normal TV Regurgitation Doppler TR Peak Velocity 248 cm/s TR Peak Gradient 25 mmHg Estimated PAP/RSVP RA Pressure 3 mmHg <=5 PA Systolic Pressure 28 mmHg <36 RV Systolic Pressure 28 mmHg <36 Aortic Valve Name Value Normal AV Doppler AV Peak Velocity 130 cm/s AV Peak Gradient 7 mmHg AV Mean Gradient 4 mmHg AV VTI 26 cm AV Area (Cont Eq VTI) 2.9 cm2 >=3.0 AV Area (Cont Eq Yves) 3.0 cm2 AV Regurgitation 2D LVOT Area 3.3 cm2 AV Regurgitation Doppler AR Decel Time 3,565 ms AR Decel [place] 87 cm/s2 AR PHT 1,034 ms Ventricles Name Value Normal LV Dimensions 2D/MM IVS Diastolic Thickness (2D) 0.9 cm 0.6-1.0 LVID Diastole (2D) 5.0 cm 3.8-5.2 LVIW Diastolic Thickness (2D) 0.9 cm 0.6-0.9 LVID Systole (2D) 3.2 cm 2.2-3.5 LVOT Diameter 2.0 cm LV Mass (2D Cubed) 157.46 g 67.00-162.00 LV Mass Index (2D Cubed) 90 g/m2 43-95 Relative Wall Thickness (2D) 0.37 LV Fractional Shortening/Ejection Fraction 2D/MM LV Fractional Shortening (2D) 36 % 27-45 LV EF (2D [place]) 65 % 54-74 LV Diastolic Volume (4C MOD) 89 ml LV EF (4C MOD) 69 % LV Diastolic Length (4C) 6.5 cm LV Systolic Length (4C) 4.8 cm LV Stroke Volume (4C MOD) 61 ml Atria Name Value Normal LA Dimensions LA Volume (4C A-L) 50 ml LA Volume (BP A-L) 59 ml RA Dimensions RA Area (4C) 16.4 cm2 <=18.0 Report Signatures
--- NOTE | 2024-03-07 00:03 | ED.GENADULT ---
HPI - General Adult General Chief complaint: Recheck/Abnormal Lab/Rx Stated complaint: HTN Time Seen by Provider: 03/06/24 22:35 History of Present Illness HPI narrative: Patient 83-year-old female who presents emergency department with chief complaint of high blood pressure. The patient reports that she noticed that her blood pressures were elevated in the 200s and reports she did have a little bit of shortness of breath and a cough. The patient denies fever Related Data Home Medications ?Medication ?Instructions ?Recorded ?Confirmed ?Last Taken ?Type amlodipine 10 mg tablet 10 mg PO DAILY 02/18/19 03/21/22 Unknown History aspirin 81 mg tablet,delayed 81 mg PO DAILY 02/18/19 03/21/22 Unknown History release (Adult Low Dose Aspirin) carvedilol 25 mg tablet 25 mg PO BID 02/18/19 03/21/22 Unknown History clopidogrel 75 mg tablet 75 mg PO DAILY 02/18/19 03/21/22 Unknown History fenofibrate 160 mg tablet 160 mg PO DAILY 02/18/19 03/21/22 Unknown History furosemide 20 mg tablet 60 mg PO DAILY 02/18/19 03/21/22 Unknown History losartan 100 mg tablet 100 mg PO DAILY 02/18/19 03/21/22 Unknown History metformin 500 mg tablet 500 mg PO BID 02/18/19 03/21/22 Unknown History potassium chloride 20 mEq 20 meq PO DAILY 02/18/19 03/21/22 Unknown History tablet,extended release pravastatin 40 mg tablet 40 mg PO DAILY 02/18/19 03/21/22 Unknown History pyridoxine (vitamin B6) 100 mg 100 mg PO DAILY 02/18/19 03/21/22 Unknown History tablet (Vitamin B-6) zolpidem 10 mg tablet 10 mg PO HS 02/18/19 03/21/22 Unknown History apixaban 2.5 mg tablet (Eliquis) 2.5 mg PO BID 04/02/20 03/21/22 Unknown History Allergies Allergy/AdvReac Type Severity Reaction Status Date / Time No Known Allergies Allergy Verified 10/28/22 13:48 Review of Systems Review of Systems: A 10 system review of systems was completed on the patient and is negative except for what is stated in the HPI. Nursing and ancillary documentation was reviewed. [facility] Past Medical History Medical History Hyperlipidemia Type 2 diabetes mellitus Hypertension Cerebrovascular accident (01/2019) Memory deficits, occasional word-finding problems, cognitive decline. Cancer of left breast (1991) Thoracic compression fracture Arthritis Valvular heart disease Surgical History Surgical History History of heart valve replacement History of right breast biopsy History of bilateral cataract extraction History of left mastectomy (1991) History of dilation and curettage (08/2001) History of hysterectomy (2001) History of tubal ligation (1978) Family History Family History Mother Throat cancer Father Liver cancer Sibling Diabetes mellitus Grandparent Hypertension Heart disease Social History Social History Social History: Surrogate medical decision maker: Pedrito Johnson, spouse. Code status: Full code. Smoking status: Never smoker Alcohol intake: never Substance use: never Substance use type: does not use Lack of Transportation: No Lack of Food: Never True Current Housing: I Have Housing Concerned About Future Housing: No Difficulty Paying Gas/Electric Bills: No Difficulty Paying for Meds: No Currently Unemployed: No Education: High School Diploma/GED Difficulty w/ Childcare or Family Care: No Living arrangements: with family Additional living arrangements comments: Lives with spouse in [place]. Raised 4 children. Occupation/Education: retired Gender identity (if verbalized by the patient): Female Sexual Orientation (if Verbalized by the Patient): Straight or Heterosexual Spiritual care concerns: No Agree to blood products: Yes Exam Narrative: GENERAL: Well-appearing, well-nourished, and in no acute distress. HEAD: Normocephalic, atraumatic. EYES: PERRLA and EOMI. ENT: Nares clear, no rhinorrhea or epistaxis. Mucous membranes moist. NECK: Supple. CHEST: Clear to auscultation. No respiratory distress. HEART: Regular rate and rhythm. No murmur heard. Normal peripheral pulses. ABDOMEN: Soft, nontender, nondistended, normal active bowel sounds. EXTREMITIES: Normal range of motion. No edema. SKIN: Warm, dry, no rash. NEURO: No focal deficits. Alert and oriented x3. PSYCH: Normal mood and affect. Course Vital Signs Vital signs: Vital Signs Temperature 36.4 C 03/06/24 20:34 Pulse Rate 74 03/06/24 20:34 Respiratory Rate 16 03/06/24 20:34 Blood Pressure 209/75 H 03/06/24 20:34 Pulse Oximetry 98 03/06/24 20:34 Oxygen Delivery Room Air 03/06/24 20:34 Temperature 36.4 C 03/06/24 20:34 Pulse Rate 72 03/07/24 02:35 Respiratory Rate 28 H 03/07/24 02:35 Blood Pressure 141/129 H 03/07/24 01:57 Pulse Oximetry 98 03/07/24 01:57 Oxygen Delivery Room Air 03/06/24 20:34 Medical Decision Making MDM Narrative Medical decision making narrative: Differential diagnosis includes hypertensive crisis, CHF, pneumonia, upper respiratory infection Vital Signs Vital Signs: Vital Signs Temperature 36.4 C 03/06/24 20:34 Pulse Rate 74 03/06/24 20:34 Respiratory Rate 16 03/06/24 20:34 Blood Pressure 209/75 H 03/06/24 20:34 Pulse Oximetry 98 03/06/24 20:34 Oxygen Delivery Room Air 03/06/24 20:34 Temperature 36.4 C 03/06/24 20:34 Pulse Rate 72 03/07/24 02:35 Respiratory Rate 28 H 03/07/24 02:35 Blood Pressure 141/129 H 03/07/24 01:57 Pulse Oximetry 98 03/07/24 01:57 Oxygen Delivery Room Air 03/06/24 20:34 Lab Data 03/06/24 23:22 03/06/24 23:22 Labs: Lab Results 03/06/24 03/07/24 Range/Units 23:22 02:23 WBC 9.8 (4.5-10.0) K/mm3 RBC 5.35 (4.2-5.4) M/mm3 Hgb 14.6 (12.0-15.0) g/dL Hct 45.0 (37.0-47.0) % MCV 84.1 (80-100) fl MCH 27.3 (26-34) pg MCHC 32.4 (32-36) g/dl RDW 13.1 (11.5-14.5) % Plt Count 191 (150-375) k/mm3 MPV 11.1 H (7.4-10.4) fl Immature Gran % (Auto) 0.4 (0-0.5) % Neut % (Auto) 62.1 (45.5-73.1) % Lymph % (Auto) 29.1 (18.3-44.2) % [place] % (Auto) 5.2 (2.6-8.5) % Eos % (Auto) 2.5 (0-4.4) % Baso % (Auto) 0.7 (0.2-1.2) % Lymph # (Auto) 2.85 (0.9-3.2) K/mm3 [place] # (Auto) 0.5 (0.1-0.6) K/mm3 Eos # (Auto) 0.2 (0-0.3) K/mm3 Baso # (Auto) 0.1 (0.0-0.1) K/mm3 Abs Immat Gran (auto) 0.04 H (0.00-0.031) K/mm3 Absolute Neuts (auto) 6.1 (1.3-6.7) K/mm3 Absolute Nucleated RBC 0.000 (0.0-0.012) K/mm3 Nucleated RBC % 0.0 (0.0-0.2) % PT 15.2 H (11.1-14.7) Seconds INR 1.2 APTT 28.0 (22.3-36.8) Seconds Sodium 140 (137-145) mmol/L Potassium 3.5 (3.4-5.0) mmol/L Chloride 105 (98-107) mmol/L Carbon Dioxide 28 (22-30) mmol/L Anion Gap 7 (4-12) mmol/L BUN 20 H (7-17) mg/dL Creatinine 0.89 (0.7-1.0) mg/dL Estim Creat Clear Calc 35 ml/min Estimated GFR 60 (59 - ) Glucose 179 H (65-110) mg/dL Lactic Acid 1.5 (0.7-2.0) mmol/L Calcium 8.6 (8.4-10.2) mg/dL Magnesium 2.0 (1.6-2.3) mg/dL Total Bilirubin 0.4 (0.2-1.3) mg/dL AST 23 (14-36) U/L ALT 21 (6-35) U/L Alkaline Phosphatase 108 (38-126) U/L Troponin I < 0.012 < 0.012 (0.000-0.034) ng/mL NT-Pro-B Natriuret Pep 1170 H (19.9-100) pg/mL Total Protein 7.0 (6.3-8.2) g/dL Albumin 3.7 (3.5-5.1) g/dL Lipase 53 (23-300) U/L Procalcitonin 0.0 ng/mL Urine Color Yellow (Yellow) Urine Appearance Clear (Clear) Urine pH 5.5 (5.0-9.0) Ur Specific [place] 1.018 (1.001-1.035) Urine Protein Trace (Negative) mg/dL Urine Glucose (UA) Negative (Negative) mg/dL Urine Ketones Trace H (Negative) mg/dL Ur Blood (Man) Trace (Negative) Urine Nitrate Negative (Negative) Urine Bilirubin Negative (Negative) Urine Urobilinogen 0.2 (<2.0) mg/dL Add Ur Microanalysis Reviewed Leukocyte Esterase Rfl 1+ H (Negative) ARLETH/UL Urine RBC 0-2 (0-2) /hpf Urine WBC 0-5 (0-3) /hpf Ur Squamous Epith Cells None seen (Few) /hpf Urine Bacteria None seen /hpf Urine Casts 0-2 Influenza A (RT-PCR) Negative (Negative) Influenza B (RT-PCR) Negative (Negative) RSV (RT-PCR) Negative (Negative) SARS-CoV-2 RNA (RT-PCR) Negative (Negative) ABG Data ABG results: 03/07/24 02:24 Puncture Site Right radial ABG pH 7.490 H ABG pCO2 34.4 L ABG pO2 80.8 ABG PO2/FiO2 Ratio 3.85 ABG HCO3 25.6 ABG O2 Saturation 96.8 ABG O2 Content 21.0 ABG Base Excess 2.8 A-a Gradient 27.7 Oxyhemoglobin 96.4 Total Hemoglobin 15.5 O2 Delivery Device Room air O2 Liters/Min Not Reportable FiO2 21 Discharge Plan Discharge Clinical Impression: Bronchospasm Hypertension Qualifiers: Hypertension type: unspecified Qualified Code(s): I10 - Essential (primary) hypertension Patient Disposition: Still a Patient Condition: Stable Patient Language: Somali Prescriptions: No Action levetiracetam [Keppra] 500 mg tablet 500 mg PO Q12HR Qty: 60 5RF Eliquis 2.5 mg tablet 2.5 mg PO BID cephalexin 500 mg capsule 500 mg PO Q12H 7 Days Qty: 14 0RF metformin 500 mg Tablet 500 mg PO BID carvedilol 25 mg Tablet 25 mg PO BID pravastatin 40 mg Tablet 40 mg PO DAILY aspirin [Adult Low Dose Aspirin] 81 mg Tablet,Delayed Release (Dr/Ec) 81 mg PO DAILY amlodipine 10 mg Tablet 10 mg PO DAILY pyridoxine (vitamin B6) [Vitamin B-6] 100 mg Tablet 100 mg PO DAILY zolpidem 10 mg Tablet 10 mg PO HS losartan 100 mg Tablet 100 mg PO DAILY fenofibrate 160 mg Tablet 160 mg PO DAILY potassium chloride 20 mEq Tablet Extended Release 20 meq PO DAILY clopidogrel 75 mg tablet 75 mg PO DAILY furosemide 20 mg Tablet 60 mg PO DAILY Follow-up/Referrals: Kartik,Mehul Fernandez MD [Primary Care Provider] - Time of Disposition: 02:56
[2024-03-07 00:05] LABS: Add Urine Microscopic? YES; Appearance Urine Clear (Clear); Bacteria Urine None Seen /hpf; Bilirubin Urine Negative (Negative); Blood Urine Trace (Negative); Color Urine Yellow (Yellow); Glucose Urine UA Negative (Negative); Ketones Urine Trace mg/dL (Negative); Leukocyte Esterase Ur 1+ LEU/UL (Negative); Need Manual Microscopic Reviewed; Nitrate Urine Negative (Negative); Non Pathogenic Casts 0-2; Protein Urine Trace mg/dL (Negative); RBC Urine 0-2 /hpf (0-2); Specific Grav Ur 1.018 (1.001-1.035); Squamous Epithelial Cell Urine None Seen /hpf (Few); Urobilinogen Urine 0.2 mg/dL (<2.0); WBC Urine 0-5 /hpf (0-3); pH Urine 5.5 (5.0-9.0)
[2024-03-07] MEDS: FUROSEMIDE INJ 40 MG/4 ML VIAL IV PUSH (00:15)
[2024-03-07 00:16] LABS: Influenza A QL RT-PCR Negative (Negative); Influenza B QL RT-PCR Negative (Negative); RSV RNA, RT-PCR Negative (Negative); SARS-CoV-2 RNA PCR Negative (Negative)
--- NOTE | 2024-03-07 00:20 | ECG_ITS ---
Test Date: 2024-03-07 00:20:00 Measurements Intervals [place] Rate: 75 P: 7 VA: 137 QRS: -26 QRSD: 129 T: 141 QT: 438 QTc: 492 Interpretive Statements SINUS RHYTHM LEFT VENTRICULAR HYPERTROPHY AND ST-T CHANGE [VOLTAGE CRITERIA PLUS ST/T ABNORMALITY] POSSIBLE SEPTAL MYOCARDIAL INFARCTION , OF INDETERMINATE AGE [30 ms Q WAVE IN V1/V2] POSSIBLE LATERAL MYOCARDIAL INFARCTION , OF INDETERMINATE AGE [30 ms Q WAVE IN I/aVL/V5/V6] No previous ECG available for comparison Electronically Signed On 03-08-2024 08:59:49 TRANSPORTER DRIVER by Chema You M.D.
[2024-03-07] MEDS: IPRATROPIUM 0.5 MG/ALBUTEROL SULFATE 2.5 MG AMPUL.NEB 3 ML INHALATION ×4 (02:25→21:04)
[2024-03-07] MEDS: methylPREDNISolone SOD SUCC 125 MG VIAL IV PUSH (02:30)
[2024-03-07 02:33] LABS: Alveolar/Arterial O2 Gradient 27.7 mmHg; Base Excess ABG 2.8 mEq/l (+/-2.0); Device ROOM AIR; Fractional Inspired Oxygen 21 %; HCO3 ABG 25.6 mEq/l (22.0-26.0); Modified Allen's Test Pass; Oxygen Saturation ABG 96.8 % (95.0-100.0); Oxyhemoglobin 96.4 % THb (90.0-100.0); PCO2 ABG 34.4 mmHg (35.0-45.0); PO2 ABG 80.8 mmHg (80.0-100.0); PO2 FiO2 Ratio Arterial Blood 3.85 %; Site Drawn RIGHT RADIAL; Total Hemoglobin 15.5 g/dL (12.0-18.0)
[2024-03-07 02:51] LABS: Troponin I < 0.012 ng/mL (0.000-0.034)
--- NOTE | 2024-03-07 03:36 | PC.NURSE ---
Pt ambulated to restroom with steady gait with this RN standing by if needed. Pt states she feels better after breathing treatment
--- NOTE | 2024-03-07 04:56 | ADMGEN ---
This patient, Yuliana Johnson, was admitted to [facility] Surg Room 313-01. Patient/family oriented to hospital policies and general routines including ID bracelet, bed and alarms, visiting hours, pain management, procedures, bathroom and other care routines, personal items, smoking policy, room service/diet, and visiting hours. Information on how to activate the Rapid Response Team has been discussed. Patient/Family are encouraged to report perceived risks to care and to ask questions if they do not understand what they are told or what they should do.
[2024-03-07 06:08] LABS: Glucose Point of Care 94 mg/dl (65-105)
--- NOTE | 2024-03-07 08:30 | P.HP_ITS ---
H&P: HPI History of Present Illness Date/Time: 03/07/24 08:30 Chief Complaint: hypertension Narrative: 83 year old female with past medical history of stroke (short term memory deficits and intermittent difficulty with word finding), hypertension, hyperlipidemia, and diabetes presents to the hospital for hypertension with systolics in the 200s. Some history is obtained from patients with her permission. Per patient she has been having elevated blood pressures into the 200s systolic for around 2 weeks. Her notes that their daughter has been in contact with patients PCP but unsure what changes if any have been made to her blood pressure medications. They deny missing any doses of her medications. Patient has been asymptomatic with the hypertension denying headaches, vision changes, chest pain, palpitations. She does note that she has had mild shortness of breath for a week with a dry cough and increased congestion. She has not taken anything for these symptoms. Denies recent sick contacts. She notes that this has been improving daily. At time of assessment patient has no complaints denying chest pain, shortness of breath, palpitations, nausea/vomiting and abdominal pain. Discussed code status with patient and her and they wish to stay full code at this time while they further discuss their options. ED workup: CBC with WBC 9.8, H/H 14.6/45, PLT 191. CMP with Na 140, K 3.5, BUN/Cr 20/0.89. Glucose 179. Lactic 1.5. LFTs WNL. Troponin negative x2. BNP 1170. ABG pH 7.490, pCO2 34.4, pO2 80.8, HCO3 25.6. UA unremarkable. Viral panel negative. Chest XR: No focal infiltrate or effusion. Review of Systems Review of Systems: All systems reviewed & are unremarkable except as noted in HPI and below [facility] Past Medical History Medical History (Updated 03/07/24 @ 14:37 by Agata Cabrera PA-C) Diabetes mellitus Hyperlipidemia Type 2 diabetes mellitus Hypertension Cerebrovascular accident (01/2019) Memory deficits, occasional word-finding problems, cognitive decline. Cancer of left breast (1991) Thoracic compression fracture Arthritis Valvular heart disease Surgical History Surgical History History of heart valve replacement History of right breast biopsy History of bilateral cataract extraction History of left mastectomy (1991) History of dilation and curettage (08/2001) History of hysterectomy (2001) History of tubal ligation (1978) Family History Family History Mother Throat cancer Father Liver cancer Sibling Diabetes mellitus Grandparent Hypertension Heart disease Social History Social History (Updated 03/07/24 @ 14:30 by Agata Cabrera PA-C) Social History: Surrogate medical decision maker: Pedrito Coffeyuette, spouse. Code status: Full code. Lives at home with her . Does not use assistive devices with ambulation at baseline. Smoking status: Never smoker Alcohol intake: never Substance use: never Substance use type: does not use Do You Feel Safe in your Home?: Yes Lack of Transportation: No Lack of Food: Never True Current Housing: I Have Housing Concerned About Future Housing: No Difficulty Paying Gas/Electric Bills: No Difficulty Paying for Meds: No Currently Unemployed: No Education: High School Diploma/GED Difficulty w/ Childcare or Family Care: No Living arrangements: with family Additional living arrangements comments: Lives with spouse in [place]. Raised 4 children. Occupation/Education: retired Gender identity (if verbalized by the patient): Female Sexual Orientation (if Verbalized by the Patient): Straight or Heterosexual Spiritual care concerns: No Agree to blood products: Yes Meds Home Medications and Allergies Home Medications ?Medication ?Instructions ?Recorded ?Confirmed ?Type aspirin 81 mg tablet,delayed 81 mg PO DAILY 02/18/19 03/07/24 History release (Adult Low Dose Aspirin) carvedilol 25 mg tablet 25 mg PO BID 02/18/19 03/07/24 History losartan 100 mg tablet 100 mg PO DAILY 02/18/19 03/07/24 History pravastatin 40 mg tablet 40 mg PO DAILY 02/18/19 03/07/24 History apixaban 2.5 mg tablet (Eliquis) 2.5 mg PO BID 04/02/20 03/07/24 History furosemide 40 mg tablet 40 mg PO .COMPLEX 03/07/24 03/07/24 History insulin degludec 100 unit/mL (3 62 unit subcut DAILY 03/07/24 03/07/24 History mL) subcutaneous pen (Tresiba FlexTouch U-100 insulin) mirtazapine 7.5 mg tablet 7.5 mg PO HS 03/07/24 03/07/24 History Allergies Allergy/AdvReac Type Severity Reaction Status Date / Time No Known Allergies Allergy Verified 10/28/22 13:48 Vital Signs Vital Signs - 24 hr 03/06/24 20:34 03/06/24 22:01 03/06/24 22:01 Temperature 97.6 F Pulse Rate 74 71 Respiratory Rate 16 18 30 H Blood Pressure 209/75 H 178/81 H Pulse Oximetry 98 96 Oxygen Delivery Room Air 03/06/24 22:02 03/06/24 22:15 03/06/24 22:16 Temperature Pulse Rate 69 71 71 Respiratory Rate 18 29 H 28 H Blood Pressure 178/81 H 184/78 H Pulse Oximetry 97 98 99 Oxygen Delivery 03/06/24 22:30 03/06/24 22:31 03/06/24 22:45 Temperature Pulse Rate 70 68 71 Respiratory Rate 26 H 26 H 31 H Blood Pressure 181/82 H Pulse Oximetry 100 99 Oxygen Delivery 03/06/24 22:46 03/06/24 23:00 03/06/24 23:01 Temperature Pulse Rate 69 72 69 Respiratory Rate 21 H 32 H 27 H Blood Pressure 190/75 H 172/84 H Pulse Oximetry 98 98 Oxygen Delivery 03/06/24 23:15 03/06/24 23:30 03/07/24 00:16 Temperature Pulse Rate 68 68 77 Respiratory Rate 22 H 25 H 32 H Blood Pressure 171/96 H Pulse Oximetry 96 97 98 Oxygen Delivery 03/07/24 00:27 03/07/24 01:04 03/07/24 01:05 Temperature Pulse Rate 83 80 80 Respiratory Rate 26 H 26 H 41 H Blood Pressure 186/50 H 178/82 H 178/82 H Pulse Oximetry 100 98 99 Oxygen Delivery 03/07/24 01:57 03/07/24 02:25 03/07/24 02:31 Temperature Pulse Rate 80 77 76 Respiratory Rate 26 H 33 H 19 Blood Pressure 141/129 H 136/78 Pulse Oximetry 98 100 Oxygen Delivery 03/07/24 02:35 03/07/24 03:31 03/07/24 04:38 Temperature Pulse Rate 72 73 84 Respiratory Rate 28 H 25 H 25 H Blood Pressure 180/81 H 154/96 H Pulse Oximetry 97 97 Oxygen Delivery 03/07/24 05:12 03/07/24 05:32 03/07/24 07:10 Temperature 97.3 F L Pulse Rate 71 78 Respiratory Rate 14 18 Blood Pressure 154/76 H Pulse Oximetry 97 98 Oxygen Delivery Room Air Room Air 03/07/24 07:10 03/07/24 07:20 03/07/24 08:00 Temperature 98.7 F Pulse Rate 78 77 70 Respiratory Rate 18 20 18 Blood Pressure 149/65 H Pulse Oximetry 93 Oxygen Delivery Exam Narrative: AF HR 77 RR 18 Spo2 93 BP 149/65 General: female in no acute respiratory distress who is nontoxic appearing, sitting up in chair. HEENT: Normocephalic. Atraumatic. Pupils equal round reactive to light. Extraocular movement intact. Sclera clear and anicteric. No facial asymmetry. Neck: Neck was supple. No dominant adenopathy, thyromegaly or masses. Chest: Lungs are clear to auscultation bilaterally. No wheezes or crackles. CV: Heart was regular rate and rhythm. S1-S2. No murmurs, gallops, or rubs. Abd: Abdomen was soft. Nontender. Nondistended. Positive bowel sounds. No organomegaly or masses. Ext: No clubbing, cyanosis, or edema. 2+ DP pulses bilaterally. Neuro: Patient is alert and oriented x3. Strength is 5/5 in both upper and lower extremities. Speech is clear. Psych: Normal mood and affect. Patient is pleasant and cooperative. Skin: Warm and dry. No rashes noted. H&P: Results Labs Labs: Short CBC 03/06/24 Range/Units 23:22 WBC 9.8 (4.5-10.0) K/mm3 Hgb 14.6 (12.0-15.0) g/dL Hct 45.0 (37.0-47.0) % Plt Count 191 (150-375) k/mm3 BMP 03/06/24 23:22 Sodium 140 Potassium 3.5 Chloride 105 Carbon Dioxide 28 BUN 20 H Creatinine 0.89 Glucose 179 H Calcium 8.6 Cardiac Enzymes 03/06/24 03/07/24 Range/Units 23:22 02:23 Troponin I < 0.012 < 0.012 (0.000-0.034) ng/mL Liver Function 03/06/24 Range/Units 23:22 Total Bilirubin 0.4 (0.2-1.3) mg/dL AST 23 (14-36) U/L ALT 21 (6-35) U/L Alkaline Phosphatase 108 (38-126) U/L Albumin 3.7 (3.5-5.1) g/dL Urine 03/06/24 Range/Units 23:22 Urine Color Yellow (Yellow) Urine Appearance Clear (Clear) Urine pH 5.5 (5.0-9.0) Ur Specific [place] 1.018 (1.001-1.035) Urine Protein Trace (Negative) mg/dL Urine Glucose (UA) Negative (Negative) mg/dL Assessment and Plan Assessment and plan (1) Hypertension: Code(s): I10 - Essential (primary) hypertension Status: Acute Assessment and Plan: Patient reports blood pressures in the 200s systolic at home, blood pressure was noted to be 209/75 on arrival to the Ed - Troponin negative x2 - BNP 1170 - Chest XR: No focal infiltrate or effusion. 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 termite helper use Diabetes mellitus type: type 2 Qualified Code(s): E11.9 - Type 2 diabetes mellitus without complications Code(s): E11.9 - Type 2 diabetes mellitus without complications Status: Chronic Assessment and Plan: - hypoglycemia protocol - POC blood glucose ACHS - home medication - tresiba 62 units subq daily , metformin 500 mg BID - correct regimen ordered - lantus 48 units (20% of home insulin) and low dose SSI TIDWM - A1C 9.3 on 02/21/24 (3) History of stroke: Code(s): Z86.73 - Personal history of transient ischemic attack (TIA), and cerebral infarction without residual deficits Status: Acute Assessment and Plan: [place] history with residual short term memory deficits and intermittent difficulty with word finding. - ASA 81 mg daily - Eliquis 2.5 mg BID - pravastatin 40 mg daily Quality VTE Prophylaxis VTE prophylaxis: pharmacologic ordered (continue home eliquis) Hospitalist MIPS Advance Care Plan I have confirmed that the patient's Advanced Care Plan is present, code status is documented, or surrogate decision maker is listed in patient medical record.: Yes Medication Reconciliation I have utilized all available resources to obtain, update and review the patients current medications (includes all prescriptions, OTC, herbals, cannabis, and nutritional supplements).: Yes
[2024-03-07] MEDS: methylPREDNISolone SOD SUCC 125 MG VIAL 60 MG IV PUSH ×3 (10:08→21:17)
[2024-03-07] MEDS: FUROSEMIDE 40 MG TABLET PO (15:46)
[2024-03-07] MEDS: carvediloL 25 MG TABLET PO (15:47)
[2024-03-07] MEDS: APIXABAN 2.5 MG TABLET PO (15:47)
[2024-03-07 20:57] LABS: Glucose Point of Care 463 mg/dl (65-105)
[2024-03-07] MEDS: MIRTAZAPINE 7.5 MG TABLET PO (21:15)
[2024-03-07] MEDS: INSULIN ASPART (*BKC) 100 UNITS/ML SUB-Q (21:19)
[2024-03-07] MEDS: INSULIN GLARGINE (*BKC) 100 UNITS/ML 48 UNITS SUB-Q (21:19)
[2024-03-08] VITALS (19 sets, daily range): BP systolic 121–160; BP diastolic 58–76; PULSE 64–96; RESP 16–18; TEMP 36.3–37.1; O2SAT 93–100
[2024-03-08] MEDS: IPRATROPIUM 0.5 MG/ALBUTEROL SULFATE 2.5 MG AMPUL.NEB 3 ML INHALATION ×4 (02:18→20:17)
[2024-03-08] MEDS: methylPREDNISolone SOD SUCC 125 MG VIAL 60 MG IV PUSH ×3 (05:39→21:20)
--- NOTE | 2024-03-08 07:38 | P.PNIM_ITS ---
Progress Note: A&P Assessment and Plan (1) Weakness: Code(s): R53.1 - Weakness Status: Acute Assessment and Plan: Patient typically able to ambulate without assistance at home per . Attempted to ambulate patient however she was unable to get to the side of her bed on her own PT/OT consulted for DC recommendations (2) Hypertension: Code(s): I10 - Essential (primary) hypertension Status: Acute Assessment and Plan: Patient reports blood pressures in the 200s systolic at home, blood pressure was noted to be 209/75 on arrival to the Ed Blood pressures remain stable on home medications. - Troponin negative x2 - BNP 1170 - Chest XR: No focal infiltrate or effusion. 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 use Diabetes mellitus type: type 2 Qualified Code(s): E11.9 - Type 2 diabetes mellitus without complications Code(s): E11.9 - Type 2 diabetes mellitus without complications Status: Chronic Assessment and Plan: - hypoglycemia protocol - POC blood glucose ACHS - home medication - tresiba 62 units subq daily , metformin 500 mg BID - correct regimen ordered - lantus 56 units and mod dose SSI TIDWM - A1C 9.3 on 02/21/24 (4) History of stroke: Code(s): Z86.73 - Personal history of transient ischemic attack (TIA), and cerebral infarction without residual deficits Status: Acute Assessment and Plan: [place] history with residual short term memory deficits and intermittent difficulty with word finding. - ASA 81 mg daily - Eliquis 2.5 mg BID - pravastatin 40 mg daily Time Spent With Patient Time with patient: 25 - 35 minutes Subjective Date/time seen: 03/08/24 07:38 Interval history: 83 year old female with past medical history of stroke (short term memory deficits and intermittent difficulty with word finding), hypertension, hyperlipidemia, and diabetes presents to the hospital for hypertension with systolics in the 200s. Patient is pleasant lying in bed with at bedside. She states that she feels worse than yesterday and is extremely weak. Patient typically able to ambulate without assistance at home per . Attempted to ambulate patient however she was unable to get to the side of her bed on her own. PT/OT consulted for DC recommendations. Patients blood pressure has been well controlled since admission. A blood pressure was otbained during assessment and was 133/65 on her home medications. Again family denies missing doses. Patient has no other complaints denying chest pain, shortness of breath, nausea/vomiting and abdominal pain. Review of Systems Review of Systems: All systems reviewed & are unremarkable except as noted in HPI and below Exam Narrative: AF HR 76 RR 18 SpO2 93 BP 133/95 (obtained during assessment) General: female in no acute respiratory distress who is nontoxic appearing, sitting up in chair. HEENT: Normocephalic. Atraumatic. Extraocular movement intact. Sclera clear and anicteric. No facial asymmetry. Chest: Lungs are clear to auscultation bilaterally. No wheezes or crackles. CV: Heart was regular rate and rhythm. S1-S2. No murmurs, gallops, or rubs. Abd: Abdomen was soft. Nontender. Nondistended. Positive bowel sounds. No organomegaly or masses. Ext: No clubbing, cyanosis, or edema. 2+ DP pulses bilaterally. Neuro: Patient is alert and oriented x3. Patient is pleasant and cooperative. Skin: Warm and dry. No rashes noted. Objective Data Vital Signs Vital Signs: Vital Signs - 24 hr 03/07/24 08:00 03/07/24 08:00 03/07/24 12:00 Temperature 98.7 F Pulse Rate 70 74 69 Respiratory Rate 18 Blood Pressure 149/65 H Pulse Oximetry 93 Oxygen Delivery 03/07/24 12:00 03/07/24 13:15 03/07/24 13:24 Temperature 98.6 F Pulse Rate 73 80 77 Respiratory Rate 18 20 18 Blood Pressure 164/73 H Pulse Oximetry 95 Oxygen Delivery 03/07/24 15:47 03/07/24 16:00 03/07/24 16:00 Temperature 98.0 F Pulse Rate 76 75 75 Respiratory Rate 18 Blood Pressure 148/84 H Pulse Oximetry 94 Oxygen Delivery 03/07/24 20:00 03/07/24 20:00 03/07/24 20:00 Temperature 97.3 F L Pulse Rate 70 65 Respiratory Rate 16 Blood Pressure 140/65 Pulse Oximetry 96 Oxygen Delivery Room Air 03/07/24 21:04 03/07/24 21:04 03/07/24 21:12 Temperature Pulse Rate 73 77 Respiratory Rate 16 18 Blood Pressure Pulse Oximetry 92 Oxygen Delivery Room Air 03/08/24 00:00 03/08/24 02:18 03/08/24 02:25 Temperature Pulse Rate 76 66 70 Respiratory Rate 18 18 Blood Pressure Pulse Oximetry Oxygen Delivery 03/08/24 04:00 03/08/24 05:39 Temperature 97.3 F L Pulse Rate 74 66 Respiratory Rate 16 Blood Pressure 154/71 H Pulse Oximetry 95 Oxygen Delivery Intake/Output Intake/Output: Intake & Output 03/05/24 03/06/24 03/07/24 03/08/24 23:59 23:59 23:59 23:59 Intake Total 720 550 Balance 720 550 Meds/Results Medications: Active Medications Generic Name Dose Route Start Last Admin Trade Name Freq PRN Reason Stop Dose Admin Albuterol/Ipratropium 3 ml 03/07/24 08:00 03/08/24 02:18 Ipratropium 0.5 Mg/Albuterol Sulfate 2.5 Mg Ampul.Neb 3 Ml INHALATION 3 ml Q6HRT DAVID Administration Apixaban 2.5 mg 03/07/24 17:00 03/07/24 15:47 Apixaban 2.5 Mg Tablet PO 2.5 mg BID DAVID Administration Aspirin 81 mg 03/08/24 09:00 Aspirin 81 Mg Enteric Tablet PO DAILY DVAID Carvedilol 25 mg 03/07/24 17:00 03/07/24 15:47 Carvedilol 25 Mg Tablet PO 25 mg BID DAVID Administration Dextrose 12.5 gm 03/07/24 14:25 Dextrose 50% 25 Gm/50 Ml Syringe IV PUSH PRN PRN Hypoglycemia Protocol Furosemide 40 mg 03/07/24 14:25 03/07/24 15:46 Furosemide 40 Mg Tablet PO 40 mg DAILY DAVID Administration Glucagon 1 mg 03/07/24 14:25 Glucagon For Inj 1 Mg Vial IM PRN PRN Hypoglycemia Protocol Glucose 15 gm 03/07/24 14:25 Glucose Oral Gel 15 Gm Of Glucse In 37.5 Gm Tube PO PRN PRN Hypoglycemia Protocol Dextrose 1,000 mls @ 100 mls/hr 03/07/24 14:25 Dextrose 5% 1,000 Ml IVPB PRN PRN Hypoglycemia Protocol Insulin Aspart 2 - 5 units 03/07/24 17:00 03/07/24 19:09 Insulin Aspart (*Bkc) 100 Units/Ml SUB-Q Not Given TIDWM DAVID Protocol Insulin Aspart 3 units 03/08/24 08:00 Insulin Aspart (*Bkc) 100 Units/Ml 0.05 units/kg (3 units) SUB-Q TIDWM DAVID Insulin Glargine 48 units 03/07/24 21:00 03/07/24 21:19 Insulin Glargine (*Bkc) 100 Units/Ml SUB-Q 48 units HS DAVID Administration Losartan Potassium 100 mg 03/08/24 09:00 Losartan Potassium 100 Mg Tablet PO DAILY DAVID Methylprednisolone Sodium Succinate 60 mg 03/07/24 08:00 03/08/24 05:39 Methylprednisolone Sod Succ 125 Mg Vial IV PUSH 60 mg Q8HR DAVID Administration Mirtazapine 7.5 mg 03/07/24 21:00 03/07/24 21:15 Mirtazapine 7.5 Mg Tablet PO 7.5 mg HS DAVID Administration Perflutren Lipid Microsphere 0 ml 03/07/24 08:37 Perflutren Lipid Microspheres 1.5 Ml Vial Diluted To 10 Ml Total Volume IV PUSH 03/10/24 08:37 ONCE PRN adequate visualization Protocol Pravastatin Sodium 40 mg 03/08/24 09:00 Pravastatin Sodium 20 Mg Tablet PO DAILY [facility] Radiology Results: ITS Impressions Chest X-Ray 03/06/24 23:08 IMPRESSION: No focal infiltrate or effusion. Labs Labs: Laboratory Results - last 24 hr 03/07/24 20:02 POC Capillary Glucose 463 H Quality VTE Prophylaxis VTE prophylaxis: pharmacologic ordered (continue home eliquis)
[2024-03-08 08:02] LABS: Glucose Point of Care 330 mg/dl (65-105)
[2024-03-08] MEDS: APIXABAN 2.5 MG TABLET PO ×2 (08:57→17:37)
[2024-03-08] MEDS: LOSARTAN POTASSIUM 100 MG TABLET PO (08:57)
[2024-03-08] MEDS: FUROSEMIDE 40 MG TABLET PO (08:57)
[2024-03-08] MEDS: ASPIRIN 81 MG ENTERIC TABLET PO (08:57)
[2024-03-08] MEDS: PRAVASTATIN SODIUM 20 MG TABLET 40 MG PO (08:57)
[2024-03-08] MEDS: INSULIN ASPART (*BKC) 100 UNITS/ML SUB-Q ×6 (08:59→17:36)
[2024-03-08] MEDS: carvediloL 25 MG TABLET PO ×2 (09:01→17:37)
[2024-03-08 09:39] LABS: Basophils Percent Auto 0.1 % (0.2-1.2); Eosinophils Percent Auto 0.1 % (0-4.4); Hematocrit 43.9 % (37.0-47.0); Hemoglobin 14.4 g/dL (12.0-15.0); Immature Granulocyte Absolute 0.05 K/mm3 (0.00-0.031); Immature Granulocyte Percent A 0.5 % (0-0.5); Lymphocytes Absolute Auto 1.33 K/mm3 (0.9-3.2); Mean Corpuscular HGB Conc 32.8 g/dl (32-36); Mean Corpuscular Hemoglobin 27.6 pg (26-34); Mean Corpuscular Volume 84.1 fl (80-100); Mean Platelet Volume 11.4 fl (7.4-10.4); Monocytes Absolute Auto 0.2 K/mm3 (0.1-0.6); Monocytes Percent Auto 1.8 % (2.6-8.5); Neutrophils Percent Auto 83.5 % (45.5-73.1); Platelet Count Result 182 k/mm3 (150-375); Red Blood Count 5.22 M/mm3 (4.2-5.4); White Blood Count 9.5 K/mm3 (4.5-10.0)
[2024-03-08 09:56] LABS: Alanine Aminotransferase 21 U/L (6-35); Albumin Level 3.8 g/dL (3.5-5.1); Alkaline Phosphatase 104 U/L (38-126); Anion Gap 8 mmol/L (4-12); Aspartate Amino Transferase 22 U/L (14-36); Bilirubin,Total 0.6 mg/dL (0.2-1.3); Blood Urea Nitrogen 30 mg/dL (7-17); Calcium 8.6 mg/dL (8.4-10.2); Carbon Dioxide 26 mmol/L (22-30); Chloride 101 mmol/L (98-107); Estimated CRCL calculation 35 ml/min; Estimated Glomerular Filt Rate 59; Glucose 314 mg/dL (65-110); Potassium 3.7 mmol/L (3.4-5.0); Sodium 135 mmol/L (137-145)
[2024-03-08 12:44] LABS: Glucose Point of Care 399 mg/dl (65-105)
--- NOTE | 2024-03-08 14:05 | ECG_ITS ---
Test Date: 2024-03-08 14:16:47 Measurements Intervals [place] Rate: 79 P: -12 HI: 158 QRS: -46 QRSD: 142 T: 87 QT: 443 QTc: 510 Interpretive Statements SINUS RHYTHM INTRAVENTRICULAR CONDUCTION DELAY [130+ ms QRS DURATION] LEFT VENTRICULAR HYPERTROPHY AND ST-T CHANGE [VOLTAGE CRITERIA PLUS ST/T ABNORMALITY] POSSIBLE SEPTAL INFARCTION Compared to ECG 03/07/2024 00:20:00 NO SIGNIFICANT CHANGES Electronically Signed On 03-09-2024 16:40:26 [employer]PORATION OFFICER by Roger Mcintyre M.D.
[2024-03-08 14:12] LABS: Glucose Point of Care 466 mg/dl (65-105)
--- NOTE | 2024-03-08 14:25 | PC.NURSE ---
Therapy was working with patient and noticed patient's right side was flaccid. This RN was called to the room. RN assessed patient and noticed patient was unable to lift right arm, patient had slight right side facial droop, and patient was unable to lift right leg. RN called code stroke. See rapid response notes.
--- NOTE | 2024-03-08 16:29 | PC.NURSE ---
RN spoke with hospitalist Martine Cabrera in regards to MRI results.
[2024-03-08 16:49] LABS: Glucose Point of Care 362 mg/dl (65-105)
--- NOTE | 2024-03-08 16:49 | P.CONNEU_ITS ---
Assessment and Plan Assessment and plan (1) Left-sided cerebrovascular accident (CVA): Code(s): I63.9 - Cerebral infarction, unspecified Status: Acute (2) HTN (hypertension): Qualifiers: Hypertension type: unspecified Qualified Code(s): I10 - Essential (primary) hypertension Code(s): I10 - Essential (primary) hypertension Status: Chronic (3) Type 2 diabetes mellitus: Code(s): E11.9 - Type 2 diabetes mellitus without complications Status: Acute Plan Although patient has improved to some extent she still has findings in the right upper and lower MRI most several small areas were noted suggestive of possible showering of emboli. Since there is a history of a mitral valve surgery she is on low-dose Eliquis we may wish to discuss this further with the digital editor regarding the dose adjustment. We may increase the dose of for statin or changing to high intensity statin such as Lipitor 40 mg a day and change check her lipid profile and also add baby aspirin 81 mg a day. For nonhemorrhagic stroke it is important to not allow hypotension at least for the 1st 48 hours. Physical therapy and occupational therapy and supportive care are important at this stage. Echocardiogram was performed and the findings were noted. She appears to be in sinus rhythm. You may consider more prolonged monitoring to see if she has had an incidence of atrial fibrillation which could have caused above shower of emboli although artery to artery emboli can also occur. CT angiogram of the head and neck did not show any large vessel occlusion and hence this appears less likely. Overall cardiac source remains suspect and should be investigated. Consult date: 03/08/24 HPI: Yuliana Johnson is a 83 year old female Who presented to the emergency room with complaints of the head we found high blood pressure. Her blood pressures over 200 systolic and she was not short of breath and having cough. She also has history of diabetes mellitus. She is on a variety of medications. There is also history of cardiac valve replacement and she is on request 2.5 mg twice a day. There is also prior history of stroke in 2019 which led to some memory problem and occasional word-finding difficulties. There is history of cancer of the left breast. Review of Systems 2 Review of Systems: ROS unobtainable: Yes unobtainable due to mental status PMFSH Past Medical History Medical History (Updated 01/09/25 @ 16:55 by Tennille Vale MD) Left-sided cerebrovascular accident (CVA) Diabetes mellitus Hyperlipidemia Type 2 diabetes mellitus Hypertension Cerebrovascular accident (01/2019) Memory deficits, occasional word-finding problems, cognitive decline. Cancer of left breast (1991) Thoracic compression fracture Arthritis Valvular heart disease Surgical History Surgical History History of heart valve replacement History of right breast biopsy History of bilateral cataract extraction History of left mastectomy (1991) History of dilation and curettage (08/2001) History of hysterectomy (2001) History of tubal ligation (1978) Family History Family History Mother Throat cancer Father Liver cancer Sibling Diabetes mellitus Grandparent Hypertension Heart disease Social History Social History (Updated 03/07/24 @ 14:30 by Agata Cabrera PA-C) Social History: Surrogate medical decision maker: Pedrito Johnson, spouse. Code status: Full code. Lives at home with her . Does not use assistive devices with ambulation at baseline. Smoking status: Never smoker Alcohol intake: never Substance use: never Substance use type: does not use Do You Feel Safe in your Home?: Yes Lack of Transportation: No Lack of Food: Never True Current Housing: I Have Housing Concerned About Future Housing: No Difficulty Paying Gas/Electric Bills: No Difficulty Paying for Meds: No Currently Unemployed: No Education: High School Diploma/GED Difficulty w/ Childcare or Family Care: No Living arrangements: with family Additional living arrangements comments: Lives with spouse in [place]. Raised 4 children. Occupation/Education: retired Gender identity (if verbalized by the patient): Female Sexual Orientation (if Verbalized by the Patient): Straight or Heterosexual Spiritual care concerns: No Agree to blood products: Yes Meds Home Medications and Allergies Home Medications ?Medication ?Instructions ?Recorded ?Confirmed ?Type aspirin 81 mg tablet,delayed 81 mg PO DAILY 02/18/19 03/07/24 History release (Adult Low Dose Aspirin) carvedilol 25 mg tablet 25 mg PO BID 02/18/19 03/07/24 History losartan 100 mg tablet 100 mg PO DAILY 02/18/19 03/07/24 History pravastatin 40 mg tablet 40 mg PO DAILY 02/18/19 03/07/24 History apixaban 2.5 mg tablet (Eliquis) 2.5 mg PO BID 04/02/20 03/07/24 History furosemide 40 mg tablet 40 mg PO .COMPLEX 03/07/24 03/07/24 History insulin degludec 100 unit/mL (3 62 unit subcut DAILY 03/07/24 03/07/24 History mL) subcutaneous pen (Tresiba FlexTouch U-100 insulin) mirtazapine 7.5 mg tablet 7.5 mg PO HS 03/07/24 03/07/24 History Allergies Allergy/AdvReac Type Severity Reaction Status Date / Time No Known Allergies Allergy Verified 10/28/22 13:48 Vital Signs Vital Signs - 24 hr 03/07/24 20:00 03/07/24 20:00 03/07/24 20:00 Temperature 97.3 F L Pulse Rate 70 65 Respiratory Rate 16 Blood Pressure 140/65 Pulse Oximetry 96 Oxygen Delivery Room Air 03/07/24 21:04 03/07/24 21:04 03/07/24 21:12 Temperature Pulse Rate 73 77 Respiratory Rate 16 18 Blood Pressure Pulse Oximetry 92 Oxygen Delivery Room Air 03/08/24 00:00 03/08/24 02:18 03/08/24 02:25 Temperature Pulse Rate 76 66 70 Respiratory Rate 18 18 Blood Pressure Pulse Oximetry Oxygen Delivery 03/08/24 04:00 03/08/24 05:39 03/08/24 08:00 Temperature 97.3 F L Pulse Rate 74 66 64 Respiratory Rate 16 Blood Pressure 154/71 H Pulse Oximetry 95 Oxygen Delivery 03/08/24 08:35 03/08/24 08:35 03/08/24 08:45 Temperature Pulse Rate 71 71 70 Respiratory Rate 18 18 18 Blood Pressure Pulse Oximetry 93 Oxygen Delivery Room Air 03/08/24 09:01 03/08/24 13:42 03/08/24 13:49 Temperature Pulse Rate 76 76 Respiratory Rate 18 Blood Pressure Pulse Oximetry Oxygen Delivery Room Air 03/08/24 13:58 03/08/24 14:00 Temperature 98.7 F Pulse Rate 70 96 Respiratory Rate 18 18 Blood Pressure 121/58 L Pulse Oximetry 100 Oxygen Delivery Exam 2 Narrative: Fully conscious alert oriented to self time place and person. No aphasia or dysarthria however she seems somewhat hesitant. Her thinks she is not back to her normal self yet I saw her approximately 40 minutes after the onset of the event on the floor. Examination of the head and neck shows no evidence of external trauma. No nuchal rigidity. No carotid bruit. Cranial nerves show pupils were equal reacting to light. Visual salazar and extraocular movements are intact. There is no facial asymmetry. Facial sensation is intact. Other cranial nerves within normal limits. Normal however she appears to have loss of it alternating movement particular in the right lower limb to some extent to the right upper limb. Deep tendon reflex is reflexes did not show any significant asymmetry. Sensory exam is grossly intact. No involuntary movements were seen. Heart sounds were normal. No irregular rhythm was noted. Results Labs 03/08/24 08:54 03/08/24 08:54 Labs: Short CBC 03/08/24 Range/Units 08:54 WBC 9.5 (4.5-10.0) K/mm3 Hgb 14.4 (12.0-15.0) g/dL Hct 43.9 (37.0-47.0) % Plt Count 182 (150-375) k/mm3 BMP 03/08/24 08:54 Sodium 135 L Potassium 3.7 Chloride 101 Carbon Dioxide 26 BUN 30 H D Creatinine 0.91 Glucose 314 H Calcium 8.6 Liver Function 03/08/24 Range/Units 08:54 Total Bilirubin 0.6 (0.2-1.3) mg/dL AST 22 (14-36) U/L ALT 21 (6-35) U/L Alkaline Phosphatase 104 (38-126) U/L Albumin 3.8 (3.5-5.1) g/dL
[2024-03-08 17:23] LABS: Cholesterol 163 mg/dL (0-200); HDL Direct 30 mg/dL; Triglycerides 138 mg/dL (<150)
[2024-03-08 17:33] LABS: LDL Cholesterol Direct 105 mg/dL
[2024-03-08 18:30] LABS: Folic Acid 6.5 ng/mL (2.76->20)
[2024-03-08 20:52] LABS: Glucose Point of Care 388 mg/dl (65-105)
[2024-03-08 21:08] LABS: Hemoglobin A1C 8.6 % (<5.7)
[2024-03-08] MEDS: INSULIN GLARGINE (*BKC) 100 UNITS/ML 56 UNITS SUB-Q (21:14)
[2024-03-08] MEDS: MIRTAZAPINE 7.5 MG TABLET PO (21:19)
[2024-03-09] VITALS (19 sets, daily range): BP systolic 133–189; BP diastolic 53–87; PULSE 67–84; RESP 16–22; TEMP 36.4–36.7; O2SAT 94–95; BMI 10.0
[2024-03-09] MEDS: IPRATROPIUM 0.5 MG/ALBUTEROL SULFATE 2.5 MG AMPUL.NEB 3 ML INHALATION ×5 (02:44→21:17)
[2024-03-09] MEDS: methylPREDNISolone SOD SUCC 125 MG VIAL 60 MG IV PUSH ×2 (05:41→17:14)
[2024-03-09 06:39] LABS: Basophils Percent Auto 0.1 % (0.2-1.2); Eosinophils Percent Auto 0.3 % (0-4.4); Hematocrit 45.3 % (37.0-47.0); Hemoglobin 14.6 g/dL (12.0-15.0); Immature Granulocyte Percent A 0.7 % (0-0.5); Lymphocytes Absolute Auto 1.58 K/mm3 (0.9-3.2); Lymphocytes Percent Auto 10.3 % (18.3-44.2); Mean Corpuscular HGB Conc 32.2 g/dl (32-36); Mean Corpuscular Volume 83.9 fl (80-100); Mean Platelet Volume 11.5 fl (7.4-10.4); Monocytes Absolute Auto 0.3 K/mm3 (0.1-0.6); Monocytes Percent Auto 2.2 % (2.6-8.5); Neutrophils Absolute Auto 13.2 K/mm3 (1.3-6.7); Neutrophils Percent Auto 86.4 % (45.5-73.1); Platelet Count Result 218 k/mm3 (150-375); Red Cell Distribution Width 13.2 % (11.5-14.5); White Blood Count 15.3 K/mm3 (4.5-10.0)
[2024-03-09 06:51] LABS: Alanine Aminotransferase 21 U/L (6-35); Albumin Level 3.4 g/dL (3.5-5.1); Alkaline Phosphatase 96 U/L (38-126); Anion Gap 8 mmol/L (4-12); Aspartate Amino Transferase 21 U/L (14-36); Bilirubin,Total 0.5 mg/dL (0.2-1.3); Blood Urea Nitrogen 32 mg/dL (7-17); Calcium 8.1 mg/dL (8.4-10.2); Carbon Dioxide 29 mmol/L (22-30); Chloride 103 mmol/L (98-107); Estimated CRCL calculation 40 ml/min; Estimated Glomerular Filt Rate > 60; Glucose 186 mg/dL (65-110); Potassium 3.3 mmol/L (3.4-5.0); Sodium 140 mmol/L (137-145)
[2024-03-09 08:18] LABS: Glucose Point of Care 179 mg/dl (65-105)
--- NOTE | 2024-03-09 09:22 | PM.IMPN ---
Progress Note: A&P Assessment and Plan (1) Stroke: Code(s): I63.9 - Cerebral infarction, unspecified Status: Acute Assessment and Plan: 03/09: Call received by patients RN that patient developed right side weakness and the inability to move her right arm and right leg when working with PT. Reported to patients room at that time. Vitals were stable. Blood pressure was slightly elevated in the 150s systolic. Patient remained AOx3. Cranial nerves II-XII intact. Sensation intact throughout. Unable to raise her right arm, has weak right hand squeeze compared to the left. Unable to move her right leg. Code stroke called. Patient is already on ASA 81 mg daily. Increased eliquis 2.5 mg BID to 5 mg BID. Changed pravastatin 40 mg daily to high intensity atorvastatin 40 mg daily. No history of Afib, on eliquis for prior stroke. Follows Dr. [facility] at [facility]. Lipid panel: cholesterol 163, LDL 105, HDL 30, triglycerides 138 Echo 65-70% LVEF with grade I diastolic dysfunction No known history of afib per chart review and , she remains on tele CT head: 1. 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 2. Stable moderate nonspecific cerebral white matter disease, which likely represents chronic small vessel ischemic disease. CTA head/neck: 1. 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 2. Moderate nonspecific cerebral white matter disease, which likely represents chronic small vessel ischemic disease. 3.. Severe stenosis of the bilateral P1 posterior cerebral arteries. Moderate stenosis of intracranial right internal carotid artery and bilateral middle cerebral artery segments. 4. 0% stenosis of the proximal right internal carotid artery relative to normal distal artery lumen diameter (NASCET criteria). 5. 42% stenosis of the proximal left internal carotid artery relative to normal distal artery lumen diameter. MRI: 1. Acute infarct in the left parietal lobe. 2. 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 3. Moderate nonspecific cerebral white matter disease, which likely represents chronic small vessel ischemic disease. Monitor CBC, CMP, magnesium, troponin, and lipid profile Monitor blood pressure, allow for permissive hypertension. Will treat hypertension if systolic is greater than 2800 and/or diastolic greater than 100 PT/OT recommending SNF placement Neurology consulted, appreciate recommendations MRI shows several small areas suggestive of possible showering of emboli. History of a mitral valve surgery she is on low-dose Eliquis we may wish to discuss this further with the dust collector operator regarding the dose adjustment. For nonhemorrhagic stroke it is important to not allow hypotension at least for the 1st 48 hours. Echocardiogram was performed. Appears to be in sinus rhythm. Consider prolonged monitoring to see if she has atrial fibrillation which could have caused above shower of emboli although artery to artery emboli can also occur. Overall cardiac source remains suspect and should be investigated. 03/09/2024: Spoke with Cardiology Dr. Mcintyre in terms of patients eliquis dosing. Per [facility] records patient was on eliquis 2.5 mg BID for prior stroke with a likely embolic etiology. Dr. Mcintyre agreed with increasing the dose to the therapeutic 5 mg BID as patient has a normal BMI and kidney function. (2) Hypertension: Code(s): I10 - Essential (primary) hypertension Status: Acute Assessment and Plan: Patient reports blood pressures in the 200s systolic at home, blood pressure was noted to be 209/75 on arrival to the Ed Blood pressures remain stable on home medications. - Troponin negative x2 - BNP 1170 - Chest XR: No focal infiltrate or effusion. - Echo: LVEF 65-70% with grade I diastolic dysfunction - Since admission blood pressures have been maintaining in the 150 range - Resumed home medications: carvedilol 25 mg BID, lasix 40 mg daily, losartan 100 mg daily - Monitor blood pressures (3) Diabetes mellitus: Qualifiers: Diabetes mellitus complication status: without complication Diabetes mellitus fci insulin use: without terminal supervisor use Diabetes mellitus type: type 2 Qualified Code(s): E11.9 - Type 2 diabetes mellitus without complications Code(s): E11.9 - Type 2 diabetes mellitus without complications Status: Chronic Assessment and Plan: - hypoglycemia protocol - POC blood glucose ACHS - home medication - tresiba 62 units subq daily , metformin 500 mg BID - correct regimen ordered - lantus 56 units and mod dose SSI TIDWM - A1C 9.3 on 02/21/24 (4) History of stroke: Code(s): Z86.73 - Personal history of transient ischemic attack (TIA), and cerebral infarction without residual deficits Status: Acute Assessment and Plan: Stoke history with residual short term memory deficits and intermittent difficulty with word finding. - ASA 81 mg daily - Eliquis 2.5 mg BID increased to 5 mg BID - pravastatin 40 mg daily changed to atorvastatin 40 mg daily Time Spent With Patient Time with patient: 25 - 35 minutes Subjective Date/time seen: 03/09/24 09:22 Interval history: 83 year old female with past medical history of stroke (short term memory deficits and intermittent difficulty with word finding), hypertension, hyperlipidemia, diastolic heart failure, and diabetes presents to the hospital for hypertension with systolics in the 200s. Patient is pleasant sitting on the side of the bed. She continues to have a dry cough. Started on Delsym. She has no other complaints denying chest pain, shortness of breath, palpitations, nausea/vomiting and abdominal pain. Spoke with Cardiology Dr. Mcintyre in terms of patients eliquis dosing. Per [facility] records patient was on eliquis 2.5 mg BID for prior stroke with a likely embolic etiology. Dr. Mcintyre agreed with increasing the dose to the therapeutic 5 mg BID as patient has a normal BMI and kidney function. Review of Systems Review of Systems: All systems reviewed & are unremarkable except as noted in HPI and below Exam Narrative: AF HR 72 RR 20 SpO2 95 BP 151/86 General: female in no acute respiratory distress who is nontoxic appearing, sitting up in chair. HEENT: Normocephalic. Atraumatic. Extraocular movement intact. Sclera clear and anicteric. No facial asymmetry. Chest: Lungs are clear to auscultation bilaterally. No wheezes or crackles. CV: Heart was regular rate and rhythm. S1-S2. No murmurs, gallops, or rubs. Abd: Abdomen was soft. Nontender. Nondistended. Positive bowel sounds. No organomegaly or masses. Ext: No clubbing, cyanosis, or edema. 2+ DP pulses bilaterally. Neuro: Patient is alert and oriented x3. Cranial nerves are intact. Speech is clear. Right sided lean. Noted right side neglect. Weak right pipe joints supervisor. Able to perform weak pushes/pulls on the right with assistance. Weak right lower extremity. Patient is pleasant and cooperative. Objective Data Vital Signs Vital Signs: Vital Signs - 24 hr 03/08/24 12:00 03/08/24 12:00 03/08/24 13:42 Temperature Pulse Rate 68 Respiratory Rate Blood Pressure Pulse Oximetry Oxygen Delivery Room Air Room Air 03/08/24 13:49 03/08/24 13:58 03/08/24 14:00 Temperature 98.7 F Pulse Rate 76 70 96 Respiratory Rate 18 18 18 Blood Pressure 121/58 L Pulse Oximetry 100 Oxygen Delivery 03/08/24 17:37 03/08/24 20:00 03/08/24 20:00 Temperature Pulse Rate 76 71 Respiratory Rate Blood Pressure Pulse Oximetry Oxygen Delivery Room Air 03/08/24 20:20 03/08/24 20:21 03/08/24 20:31 Temperature Pulse Rate 71 75 Respiratory Rate 16 16 Blood Pressure Pulse Oximetry 99 Oxygen Delivery Room Air 03/08/24 21:33 03/09/24 02:44 03/09/24 04:00 Temperature 97.6 F Pulse Rate 72 68 67 Respiratory Rate 16 16 Blood Pressure 160/76 H Pulse Oximetry 96 Oxygen Delivery 03/09/24 05:35 03/09/24 05:38 03/09/24 05:48 Temperature 97.6 F Pulse Rate 79 72 84 Respiratory Rate 22 H 20 20 Blood Pressure 151/86 H Pulse Oximetry 95 Oxygen Delivery Intake/Output Intake/Output: Intake & Output 03/06/24 03/07/24 03/08/24 03/09/24 23:59 23:59 23:59 23:59 Intake Total 720 2230 200 Output Total 1100 375 Balance 720 1130 -175 Meds/Results Medications: Active Medications Generic Name Dose Route Start Last Admin Trade Name Freq PRN Reason Stop Dose Admin Albuterol/Ipratropium 3 ml 03/07/24 08:00 03/09/24 02:44 Ipratropium 0.5 Mg/Albuterol Sulfate 2.5 Mg Ampul.Neb 3 Ml INHALATION 3 ml Q6HRT DAVID Administration Albuterol/Ipratropium 3 ml 03/09/24 05:15 03/09/24 05:30 Ipratropium 0.5 Mg/Albuterol Sulfate 2.5 Mg Ampul.Neb 3 Ml INHALATION 3 ml Q6HRT PRN Administration wheezing Apixaban 2.5 mg 03/07/24 17:00 03/08/24 17:37 Apixaban 2.5 Mg Tablet PO 2.5 mg BID DAVID Administration Aspirin 81 mg 03/08/24 09:00 03/08/24 08:57 Aspirin 81 Mg Enteric Tablet PO 81 mg DAILY DAVID Administration Atorvastatin Calcium 40 mg 03/09/24 09:00 Atorvastatin 40 Mg Tablet PO DAILY DAVID Carvedilol 25 mg 03/07/24 17:00 03/08/24 17:37 Carvedilol 25 Mg Tablet PO 25 mg BID DAVID Administration Dextrose 12.5 gm 03/07/24 14:25 Dextrose 50% 25 Gm/50 Ml Syringe IV PUSH PRN PRN Hypoglycemia Protocol Furosemide 40 mg 03/07/24 14:25 03/08/24 08:57 Furosemide 40 Mg Tablet PO 40 mg DAILY DAVID Administration Glucagon 1 mg 03/07/24 14:25 Glucagon For Inj 1 Mg Vial IM PRN PRN Hypoglycemia Protocol Glucose 15 gm 03/07/24 14:25 Glucose Oral Gel 15 Gm Of Glucse In 37.5 Gm Tube PO PRN PRN Hypoglycemia Protocol Dextrose 1,000 mls @ 100 mls/hr 03/07/24 14:25 Dextrose 5% 1,000 Ml IVPB PRN PRN Hypoglycemia Protocol Insulin Aspart 2 - 5 units 03/07/24 17:00 03/08/24 17:35 Insulin Aspart (*Bkc) 100 Units/Ml SUB-Q 5 units TIDWM DAVID Administration Protocol Insulin Aspart 3 units 03/08/24 08:00 03/08/24 17:36 Insulin Aspart (*Bkc) 100 Units/Ml 0.05 units/kg (3 units) 3 units SUB-Q Administration TIDWM DAVID Insulin Glargine 56 units 03/08/24 21:00 03/08/24 21:14 Insulin Glargine (*Bkc) 100 Units/Ml SUB-Q 56 units HS DAVID Administration Losartan Potassium 100 mg 03/08/24 09:00 03/08/24 08:57 Losartan Potassium 100 Mg Tablet PO 100 mg DAILY DAVID Administration Methylprednisolone Sodium Succinate 60 mg 03/07/24 08:00 03/09/24 05:41 Methylprednisolone Sod Succ 125 Mg Vial IV PUSH 60 mg Q8HR DAVID Administration Mirtazapine 7.5 mg 03/07/24 21:00 03/08/24 21:19 Mirtazapine 7.5 Mg Tablet PO 7.5 mg HS DAVID Administration Perflutren Lipid Microsphere 0 ml 03/07/24 08:37 Perflutren Lipid Microspheres 1.5 Ml Vial Diluted To 10 Ml Total Volume IV PUSH 03/10/24 08:37 ONCE PRN adequate visualization Protocol Radiology Results: ITS Impressions Chest X-Ray 03/06/24 23:08 IMPRESSION: No focal infiltrate or effusion. Head CT 03/08/24 14:28 IMPRESSION: 1. 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 2. Stable moderate nonspecific cerebral white matter disease, which likely represents chronic small vessel ischemic disease. 3. I discussed this result with Agata Cabrera. Head/Neck CTA 03/08/24 14:32 IMPRESSION: 1. 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 2. Moderate nonspecific cerebral white matter disease, which likely represents chronic small vessel ischemic disease. 3. Severe stenosis of the bilateral P1 posterior cerebral arteries. Moderate stenosis of intracranial right internal carotid artery and bilateral middle cerebral artery segments. 4. 0% stenosis of the proximal right internal carotid artery relative to normal distal artery lumen diameter (NASCET criteria). 5. 42% stenosis of the proximal left internal carotid artery relative to normal distal artery lumen diameter. Brain MRI 03/08/24 16:06 IMPRESSION: 1. Acute infarct in the left parietal lobe. 2. 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 3. Moderate nonspecific cerebral white matter disease, which likely represents chronic small vessel ischemic disease. Labs Labs: Laboratory Results - last 24 hr 03/08/24 03/08/24 03/08/24 08:51 08:54 12:39 WBC 9.5 RBC 5.22 Hgb 14.4 Hct 43.9 MCV 84.1 MCH 27.6 MCHC 32.8 RDW 13.0 Plt Count 182 MPV 11.4 H Immature Gran % (Auto) 0.5 Neut % (Auto) 83.5 H Lymph % (Auto) 14.0 L [place] % (Auto) 1.8 L Eos % (Auto) 0.1 Baso % (Auto) 0.1 L Lymph # (Auto) 1.33 [place] # (Auto) 0.2 Eos # (Auto) 0.0 Baso # (Auto) 0.0 Abs Immat Gran (auto) 0.05 H Absolute Neuts (auto) 8.0 H Absolute Nucleated RBC 0.000 Nucleated RBC % 0.0 Sodium 135 L Potassium 3.7 Chloride 101 Carbon Dioxide 26 Anion Gap 8 BUN 30 H D Creatinine 0.91 Estim Creat Clear Calc 35 Estimated GFR 59 Glucose 314 H POC Capillary Glucose 399 H Hemoglobin A1c 8.6 H Calcium 8.6 Total Bilirubin 0.6 AST 22 ALT 21 Alkaline Phosphatase 104 Total Protein 7.0 Albumin 3.8 Triglycerides 138 Cholesterol 163 LDL Cholesterol Direct 105 HDL Direct 30 Vitamin B12 453.0 Folate 6.5 03/08/24 03/08/24 03/08/24 14:10 16:46 20:15 WBC RBC Hgb Hct MCV MCH MCHC RDW Plt Count MPV Immature Gran % (Auto) Neut % (Auto) Lymph % (Auto) [place] % (Auto) Eos % (Auto) Baso % (Auto) Lymph # (Auto) [place] # (Auto) Eos # (Auto) Baso # (Auto) Abs Immat Gran (auto) Absolute Neuts (auto) Absolute Nucleated RBC Nucleated RBC % Sodium Potassium Chloride Carbon Dioxide Anion Gap BUN Creatinine Estim Creat Clear Calc Estimated GFR Glucose POC Capillary Glucose 466 H 362 H 388 H Hemoglobin A1c Calcium Total Bilirubin AST ALT Alkaline Phosphatase Total Protein Albumin Triglycerides Cholesterol LDL Cholesterol Direct HDL Direct Vitamin B12 Folate 03/09/24 03/09/24 06:11 08:15 WBC 15.3 H RBC 5.40 Hgb 14.6 Hct 45.3 MCV 83.9 MCH 27.0 MCHC 32.2 RDW 13.2 Plt Count 218 MPV 11.5 H Immature Gran % (Auto) 0.7 H Neut % (Auto) 86.4 H Lymph % (Auto) 10.3 L [place] % (Auto) 2.2 L Eos % (Auto) 0.3 Baso % (Auto) 0.1 L Lymph # (Auto) 1.58 [place] # (Auto) 0.3 Eos # (Auto) 0.0 Baso # (Auto) 0.0 Abs Immat Gran (auto) 0.10 H Absolute Neuts (auto) 13.2 H Absolute Nucleated RBC 0.000 Nucleated RBC % 0.0 Sodium 140 Potassium 3.3 L Chloride 103 Carbon Dioxide 29 Anion Gap 8 BUN 32 H Creatinine 0.79 Estim Creat Clear Calc 40 Estimated GFR > 60 Glucose 186 H POC Capillary Glucose 179 H Hemoglobin A1c Calcium 8.1 L Total Bilirubin 0.5 AST 21 ALT 21 Alkaline Phosphatase 96 Total Protein 7.0 Albumin 3.4 L Triglycerides Cholesterol LDL Cholesterol Direct HDL Direct Vitamin B12 Folate Quality VTE Prophylaxis VTE prophylaxis: pharmacologic ordered (continue home eliquis)
[2024-03-09] MEDS: LOSARTAN POTASSIUM 100 MG TABLET PO (09:53)
[2024-03-09] MEDS: ATORVASTATIN 40 MG TABLET PO (09:53)
[2024-03-09] MEDS: carvediloL 25 MG TABLET PO ×2 (09:53→17:13)
[2024-03-09] MEDS: ASPIRIN 81 MG ENTERIC TABLET PO (09:53)
[2024-03-09] MEDS: APIXABAN 2.5 MG TABLET PO (09:53)
[2024-03-09] MEDS: FUROSEMIDE 40 MG TABLET PO (09:53)
[2024-03-09 11:56] LABS: Glucose Point of Care 309 mg/dl (65-105)
[2024-03-09] MEDS: INSULIN ASPART (*BKC) 100 UNITS/ML SUB-Q ×4 (12:46→17:14)
[2024-03-09 17:02] LABS: Glucose Point of Care 406 mg/dl (65-105)
--- NOTE | 2024-03-09 17:11 | PC.NURSE ---
RN called hospitalist Martine in regards to patient's blood sugar being greater than 400. No answer at this time. RN will give scheduled insulin and sliding insulin that way patient does not go without.
[2024-03-09] MEDS: APIXABAN 5 MG TABLET PO (17:13)
[2024-03-09] MEDS: DEXTROMETHORPHAN POLISTIREX 60 MG/10 ML SYRINGE PO (17:32)
[2024-03-09] MEDS: MIRTAZAPINE 7.5 MG TABLET PO (20:15)
[2024-03-09] MEDS: INSULIN GLARGINE (*BKC) 100 UNITS/ML 56 UNITS SUB-Q (21:00)
[2024-03-09 21:17] LABS: Glucose Point of Care 349 mg/dl (65-105)
[2024-03-10] VITALS (20 sets, daily range): BP systolic 128–166; BP diastolic 60–74; PULSE 60–85; RESP 14–20; TEMP 36.5–36.9; O2SAT 92–97; BMI 10.0
[2024-03-10] MEDS: IPRATROPIUM 0.5 MG/ALBUTEROL SULFATE 2.5 MG AMPUL.NEB 3 ML INHALATION ×4 (03:18→21:14)
[2024-03-10] MEDS: methylPREDNISolone SOD SUCC 125 MG VIAL 60 MG IV PUSH ×2 (05:23→17:51)
[2024-03-10] MEDS: DEXTROMETHORPHAN POLISTIREX 60 MG/10 ML SYRINGE PO ×2 (05:23→17:48)
[2024-03-10 07:26] LABS: Basophils Percent Auto 0.1 % (0.2-1.2); Eosinophils Absolute Auto 0.2 K/mm3 (0-0.3); Eosinophils Percent Auto 1.1 % (0-4.4); Hematocrit 46.9 % (37.0-47.0); Immature Granulocyte Absolute 0.08 K/mm3 (0.00-0.031); Immature Granulocyte Percent A 0.6 % (0-0.5); Lymphocytes Absolute Auto 1.26 K/mm3 (0.9-3.2); Lymphocytes Percent Auto 9.3 % (18.3-44.2); Mean Corpuscular Hemoglobin 27.1 pg (26-34); Mean Corpuscular Volume 84.8 fl (80-100); Mean Platelet Volume 11.5 fl (7.4-10.4); Monocytes Absolute Auto 0.4 K/mm3 (0.1-0.6); Monocytes Percent Auto 2.6 % (2.6-8.5); Neutrophils Absolute Auto 11.7 K/mm3 (1.3-6.7); Neutrophils Percent Auto 86.3 % (45.5-73.1); Platelet Count Result 236 k/mm3 (150-375); Red Blood Count 5.53 M/mm3 (4.2-5.4); Red Cell Distribution Width 13.1 % (11.5-14.5); White Blood Count 13.6 K/mm3 (4.5-10.0)
--- NOTE | 2024-03-10 07:29 | P.PNIM_ITS ---
Progress Note: A&P Assessment and Plan (1) Stroke: Code(s): I63.9 - Cerebral infarction, unspecified Status: Acute Assessment and Plan: 03/09: Call received by patients RN that patient developed right side weakness and the inability to move her right arm and right leg when working with PT. Reported to patients room at that time. Vitals were stable. Blood pressure was slightly elevated in the 150s systolic. Patient remained AOx3. Cranial nerves II-XII intact. Sensation intact throughout. Unable to raise her right arm, has weak right hand squeeze compared to the left. Unable to move her right leg. Code stroke called. Patient is already on ASA 81 mg daily. Increased eliquis 2.5 mg BID to 5 mg BID. Changed pravastatin 40 mg daily to high intensity atorvastatin 40 mg daily. No history of Afib, on eliquis for prior stroke. Follows Dr. [facility] at [facility]. Lipid panel: cholesterol 163, LDL 105, HDL 30, triglycerides 138 Echo 65-70% LVEF with grade I diastolic dysfunction No known history of afib per chart review and , she remains on tele CT head: 1. 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 2. Stable moderate nonspecific cerebral white matter disease, which likely represents chronic small vessel ischemic disease. CTA head/neck: 1. 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 2. Moderate nonspecific cerebral white matter disease, which likely represents chronic small vessel ischemic disease. 3.. Severe stenosis of the bilateral P1 posterior cerebral arteries. Moderate stenosis of intracranial right internal carotid artery and bilateral middle cerebral artery segments. 4. 0% stenosis of the proximal right internal carotid artery relative to normal distal artery lumen diameter (NASCET criteria). 5. 42% stenosis of the proximal left internal carotid artery relative to normal distal artery lumen diameter. MRI: 1. Acute infarct in the left parietal lobe. 2. 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 3. Moderate nonspecific cerebral white matter disease, which likely represents chronic small vessel ischemic disease. Monitor CBC, CMP, magnesium, troponin, and lipid profile Monitor blood pressure, allow for permissive hypertension. Will treat hypertension if systolic is greater than 2800 and/or diastolic greater than 100 PT/OT recommending SNF placement Neurology consulted, appreciate recommendations MRI shows several small areas suggestive of possible showering of emboli. History of a mitral valve surgery she is on low-dose Eliquis we may wish to discuss this further with the brake drum molder regarding the dose adjustment. For nonhemorrhagic stroke it is important to not allow hypotension at least for the 1st 48 hours. Echocardiogram was performed. Appears to be in sinus rhythm. Consider prolonged monitoring to see if she has atrial fibrillation which could have caused above shower of emboli although artery to artery emboli can also occur. Overall cardiac source remains suspect and should be investigated. 03/09/2024: Spoke with Cardiology Dr. Mcintyre in terms of patients eliquis dosing. Per [facility] records patient was on eliquis 2.5 mg BID for prior stroke with a likely embolic etiology. Dr. Mcintyre agreed with increasing the dose to the therapeutic 5 mg BID as patient has a normal BMI and kidney function. (2) Bronchospasm: Code(s): J98.01 - Acute bronchospasm Status: Acute Assessment and Plan: Patient continues to have a dry wheezing cough. - Viral panel negative - Chest XR unremarkable - Delsym for cough suppression - Solumedrol 60 mg IV BID for bronchospasms - Possible that this is related to patients losartan, however hesitant to change antihypertensive given recent CVA - Possible vocal cord issue however patients voice is clear - Monitor (3) Hypertension: Code(s): I10 - Essential (primary) hypertension Status: Acute Assessment and Plan: Patient reports blood pressures in the 200s systolic at home, blood pressure was noted to be 209/75 on arrival to the [facility] Blood pressures remain stable on home medications. - Troponin negative x2 - BNP 1170 - Chest XR: No focal infiltrate or effusion. - Echo: LVEF 65-70% with grade I diastolic dysfunction - Since admission blood pressures have been maintaining in the 150 range - Resumed home medications: carvedilol 25 mg BID, lasix 40 mg daily, losartan 100 mg daily - Monitor blood pressures (4) Diabetes mellitus: Qualifiers: Diabetes mellitus complication status: without complication Diabetes mellitus halfway insulin use: without halfway use Diabetes mellitus type: type 2 Qualified Code(s): E11.9 - Type 2 diabetes mellitus without complications Code(s): E11.9 - Type 2 diabetes mellitus without complications Status: Chronic Assessment and Plan: - hypoglycemia protocol - POC blood glucose ACHS - home medication - tresiba 62 units subq daily , metformin 500 mg BID - 1/11: patient continued to require 4-5 units sliding scale with meals on the 3 units TIDWM scheduled - correct regimen ordered - lantus 56 units, 6 units TIDWM and mod dose SSI TIDWM - A1C 9.3 on 02/21/24 (5) History of stroke: Code(s): Z86.73 - Personal history of transient ischemic attack (TIA), and cerebral infarction without residual deficits Status: Acute Assessment and Plan: Stoke history with residual short term memory deficits and intermittent difficulty with word finding. - ASA 81 mg daily - Eliquis 2.5 mg BID increased to 5 mg BID - pravastatin 40 mg daily changed to atorvastatin 40 mg daily Time Spent With Patient Time with patient: 25 - 35 minutes Subjective Date/time seen: 03/10/24 07:29 Interval history: 83 year old female with past medical history of stroke (short term memory deficits and intermittent difficulty with word finding), hypertension, hyperlipidemia, diastolic heart failure, and diabetes presents to the hospital for hypertension with systolics in the 200s. Patient is pleasant lying in bed with at bedside. She continues to have a dry cough. No shortness of breath. Possible that this is related to patients losartan, however hesitant to change antihypertensive given recent CVA vs vocal cord issue however patients voice is clear. Patient states that she is feeling better. Her right sided weakness has improved today. Family is hoping for placement to SNF for further therapy. She has no other complaints denying chest pain, shortness of breath, palpitations, nausea/vomiting and abdominal pain. Review of Systems Review of Systems: All systems reviewed & are unremarkable except as noted in HPI and below Exam Narrative: AF HR 66 RR 20 Spo2 93 BP 128/60 General: female in no acute respiratory distress who is nontoxic appearing, sitting up in chair. HEENT: Normocephalic. Atraumatic. Extraocular movement intact. Sclera clear and anicteric. No facial asymmetry. Chest: Lungs are clear to auscultation bilaterally. No wheezes or crackles. Continued dry cough. CV: Heart was regular rate and rhythm. S1-S2. No murmurs, gallops, or rubs. Abd: Abdomen was soft. Nontender. Nondistended. Positive bowel sounds. No organomegaly or masses. Ext: No clubbing, cyanosis, or edema. 2+ DP pulses bilaterally. Neuro: Patient is alert and oriented x3. Cranial nerves are intact. Speech is clear. Improved right sided lean. 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 Able to lift right arm without assistance, noted right arm drift. Able to perform weak pushes/pulls on the right. Weak right lower extremity. Patient is pleasant and cooperative. Objective Data Vital Signs Vital Signs: Vital Signs - 24 hr 03/09/24 09:27 03/09/24 09:38 03/09/24 09:53 Temperature Pulse Rate 71 72 77 Respiratory Rate 20 20 Blood Pressure Pulse Oximetry Oxygen Delivery Fraction of Inspired Oxygen 03/09/24 09:53 03/09/24 09:53 03/09/24 12:00 Temperature Pulse Rate 68 74 Respiratory Rate Blood Pressure Pulse Oximetry Oxygen Delivery Room Air Fraction of Inspired Oxygen 03/09/24 14:00 03/09/24 14:24 03/09/24 14:30 Temperature 97.5 F L Pulse Rate 74 68 72 Respiratory Rate 20 18 18 Blood Pressure 133/53 L Pulse Oximetry 94 Oxygen Delivery Fraction of Inspired Oxygen 03/09/24 15:12 03/09/24 16:00 03/09/24 17:10 Temperature Pulse Rate 77 Respiratory Rate Blood Pressure 150/78 H Pulse Oximetry Oxygen Delivery Room Air Fraction of Inspired Oxygen 03/09/24 17:13 03/09/24 20:00 03/09/24 20:00 Temperature Pulse Rate 74 70 70 Respiratory Rate 20 Blood Pressure Pulse Oximetry 94 Oxygen Delivery Room Air Fraction of Inspired Oxygen 03/09/24 21:17 03/09/24 21:17 03/09/24 21:27 Temperature Pulse Rate 70 72 Respiratory Rate 20 20 Blood Pressure Pulse Oximetry 94 Oxygen Delivery Room Air Fraction of Inspired Oxygen 03/09/24 22:00 03/10/24 00:00 03/10/24 03:18 Temperature 98.1 F Pulse Rate 72 66 66 Respiratory Rate 18 18 Blood Pressure 189/87 H Pulse Oximetry 95 Oxygen Delivery Fraction of Inspired Oxygen 03/10/24 03:28 03/10/24 04:00 03/10/24 06:00 Temperature 97.7 F Pulse Rate 68 66 85 Respiratory Rate 20 18 Blood Pressure 128/60 Pulse Oximetry 92 Oxygen Delivery Fraction of Inspired Oxygen 03/10/24 07:28 03/10/24 07:28 Temperature Pulse Rate 62 Respiratory Rate 20 Blood Pressure Pulse Oximetry 93 Oxygen Delivery Room Air Fraction of Inspired Oxygen 21 Intake/Output Intake/Output: Intake & Output 03/07/24 03/08/24 03/09/24 03/10/24 23:59 23:59 23:59 23:59 Intake Total 720 2230 560 Output Total 1100 850 800 Balance 720 1130 -290 -800 Meds/Results Medications: Active Medications Generic Name Dose Route Start Last Admin Trade Name Freq PRN Reason Stop Dose Admin Albuterol/Ipratropium 3 ml 03/07/24 08:00 03/10/24 07:28 Ipratropium 0.5 Mg/Albuterol Sulfate 2.5 Mg Ampul.Neb 3 Ml INHALATION 3 ml Q6HRT DAVID Administration Albuterol/Ipratropium 3 ml 03/09/24 05:15 03/09/24 05:30 Ipratropium 0.5 Mg/Albuterol Sulfate 2.5 Mg Ampul.Neb 3 Ml INHALATION 3 ml Q6HRT PRN Administration wheezing Apixaban 5 mg 03/09/24 17:00 03/09/24 17:13 Apixaban 5 Mg Tablet PO 5 mg BID DAVID Administration Aspirin 81 mg 03/08/24 09:00 03/09/24 09:53 Aspirin 81 Mg Enteric Tablet PO 81 mg DAILY DAVID Administration Atorvastatin Calcium 40 mg 03/09/24 09:00 03/09/24 09:53 Atorvastatin 40 Mg Tablet PO 40 mg DAILY DAVID Administration Benzocaine 1 lozenge 03/09/24 15:43 Benzocaine/Menthol (*Bkc) 18 Ea Lozenge PO PRN PRN Sore Throat Carvedilol 25 mg 03/07/24 17:00 03/09/24 17:13 Carvedilol 25 Mg Tablet PO 25 mg BID DAVID Administration Dextromethorphan Polistirix 60 mg 03/09/24 15:07 03/10/24 05:23 Dextromethorphan Polistirex 60 Mg/10 Ml Syringe PO 60 mg Q12H PRN Administration Cough Dextrose 12.5 gm 03/07/24 14:25 Dextrose 50% 25 Gm/50 Ml Syringe IV PUSH PRN PRN Hypoglycemia Protocol Furosemide 40 mg 03/07/24 14:25 03/09/24 09:53 Furosemide 40 Mg Tablet PO 40 mg DAILY DAVID Administration Glucagon 1 mg 03/07/24 14:25 Glucagon For Inj 1 Mg Vial IM PRN PRN Hypoglycemia Protocol Glucose 15 gm 03/07/24 14:25 Glucose Oral Gel 15 Gm Of Glucse In 37.5 Gm Tube PO PRN PRN Hypoglycemia Protocol Dextrose 1,000 mls @ 100 mls/hr 03/07/24 14:25 Dextrose 5% 1,000 Ml IVPB PRN PRN Hypoglycemia Protocol Insulin Aspart 2 - 5 units 03/07/24 17:00 03/09/24 17:14 Insulin Aspart (*Bkc) 100 Units/Ml SUB-Q 5 units TIDWM DAVID Administration Protocol Insulin Aspart 3 units 03/08/24 08:00 03/09/24 17:14 Insulin Aspart (*Bkc) 100 Units/Ml 0.05 units/kg (3 units) 3 units SUB-Q Administration TIDWM [facility] Insulin Glargine 56 units 03/08/24 21:00 03/09/24 21:00 Insulin Glargine (*Bkc) 100 Units/Ml SUB-Q 56 units HS DAVID Administration Losartan Potassium 100 mg 03/08/24 09:00 03/09/24 09:53 Losartan Potassium 100 Mg Tablet PO 100 mg DAILY DAVID Administration Methylprednisolone Sodium Succinate 60 mg 03/09/24 18:00 03/10/24 05:23 Methylprednisolone Sod Succ 125 Mg Vial IV PUSH 60 mg Q12H DAVID Administration Mirtazapine 7.5 mg 03/07/24 21:00 03/09/24 20:15 Mirtazapine 7.5 Mg Tablet PO 7.5 mg HS DAVID Administration Perflutren Lipid Microsphere 0 ml 03/07/24 08:37 Perflutren Lipid Microspheres 1.5 Ml Vial Diluted To 10 Ml Total Volume IV PUSH 03/10/24 08:37 ONCE PRN adequate visualization Protocol Radiology Results: ITS Impressions Chest X-Ray 03/06/24 23:08 IMPRESSION: No focal infiltrate or effusion. Head CT 03/08/24 14:28 IMPRESSION: 1. 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 2. Stable moderate nonspecific cerebral white matter disease, which likely represents chronic small vessel ischemic disease. 3. I discussed this result with Agata Cabrera. Head/Neck CTA 03/08/24 14:32 IMPRESSION: 1. 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 2. Moderate nonspecific cerebral white matter disease, which likely represents chronic small vessel ischemic disease. 3. Severe stenosis of the bilateral P1 posterior cerebral arteries. Moderate stenosis of intracranial right internal carotid artery and bilateral middle cerebral artery segments. 4. 0% stenosis of the proximal right internal carotid artery relative to normal distal artery lumen diameter (NASCET criteria). 5. 42% stenosis of the proximal left internal carotid artery relative to normal distal artery lumen diameter. Brain MRI 03/08/24 16:06 IMPRESSION: 1. Acute infarct in the left parietal lobe. 2. 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 3. Moderate nonspecific cerebral white matter disease, which likely represents chronic small vessel ischemic disease. Labs Labs: Laboratory Results - last 24 hr 03/09/24 03/09/24 03/09/24 08:15 11:47 16:51 POC Capillary Glucose 179 H 309 H 406 H 03/09/24 21:13 POC Capillary Glucose 349 H Quality VTE Prophylaxis VTE prophylaxis: pharmacologic ordered (continue home eliquis)
[2024-03-10 07:40] LABS: Alanine Aminotransferase 25 U/L (6-35); Albumin Level 3.6 g/dL (3.5-5.1); Alkaline Phosphatase 92 U/L (38-126); Anion Gap 9 mmol/L (4-12); Aspartate Amino Transferase 23 U/L (14-36); Bilirubin,Total 0.5 mg/dL (0.2-1.3); Blood Urea Nitrogen 35 mg/dL (7-17); Calcium 8.2 mg/dL (8.4-10.2); Carbon Dioxide 29 mmol/L (22-30); Chloride 106 mmol/L (98-107); Estimated CRCL calculation 35 ml/min; Estimated Glomerular Filt Rate 57; Glucose 112 mg/dL (65-110); Potassium 3.3 mmol/L (3.4-5.0); Sodium 144 mmol/L (137-145)
[2024-03-10 08:14] LABS: Glucose Point of Care 125 mg/dl (65-105)
[2024-03-10] MEDS: carvediloL 25 MG TABLET PO ×2 (08:29→17:50)
[2024-03-10] MEDS: ASPIRIN 81 MG ENTERIC TABLET PO (08:30)
[2024-03-10] MEDS: APIXABAN 5 MG TABLET PO ×2 (08:30→17:50)
[2024-03-10] MEDS: ATORVASTATIN 40 MG TABLET PO (08:30)
[2024-03-10] MEDS: LOSARTAN POTASSIUM 100 MG TABLET PO (08:30)
[2024-03-10] MEDS: POTASSIUM CHLORIDE 20 MEQ ER TABLET 40 MEQ PO (08:30)
[2024-03-10] MEDS: FUROSEMIDE 40 MG TABLET PO (08:30)
[2024-03-10] MEDS: INSULIN ASPART (*BKC) 100 UNITS/ML SUB-Q ×4 (08:31→17:55)
--- NOTE | 2024-03-10 11:23 | PC.NURSE ---
This nurse and orientee walked into pt room this morning to pass morning meds around 0815 and noticed one hearing aid on the table that is the LEFT. Once the patient took all of her medications, her walked into the room. He asked where the RIGHT hearing aid was. This nurse, orientee, tech and charge nurse looked for the missing hearing aid. At this time we have not found the RIGHT hearing aid in the room. Charge nurse called housekeeping and we are still looking at this time.
[2024-03-10 12:05] LABS: Glucose Point of Care 335 mg/dl (65-105)
[2024-03-10 16:37] LABS: Glucose Point of Care 339 mg/dl (65-105)
[2024-03-10] MEDS: INSULIN ASPART (*BKC) 100 UNITS/ML 6 UNITS SUB-Q (17:56)
--- NOTE | 2024-03-10 18:38 | WPDNEUROPN ---
Progress Note: A&P Assessment and Plan (1) Left-sided cerebrovascular accident (CVA): Code(s): I63.9 - Cerebral infarction, unspecified Status: Acute Plan Patient has shown progression of the neurologic findings on the right side compared to the baseline which certainly can occur up to 1st 5 days after the onset of stroke hence supportive care with physical therapy occupation therapy recommended. Speech therapy evaluation also recommended although I am told that to her coughing and bronchospasm have been on go going for last 5-6 weeks time. She is on Eliquis 5 mg twice a day in addition to atorvastatin and baby aspirin 81 mg a day. Her blood pressure is being monitored and controlled. I had discussion with the hospitalist team and nursing staff about care coordination. Subjective Date/time seen: 03/10/24 18:38 Interval history: The patient is a 83-year-old with history of left CVA with right hemiparesis is having a lot of breathing problems and bronchospasm. According to the this has been going on for few weeks. This is being treated with bronchodilators and steroids. The weakness in the right arm and leg seems to have progressed since the onset. She is not able to raise her right arm against the gravity now which she was able to this morning. Review of Systems Review of Systems: No additional symptoms were reported. Exam Narrative: Fully conscious alert. She appears to be distressed due to bronchospasm and frequent coughing. I did not see any facial asymmetry. Tongue was also midline. Right upper limb power grade 2/5 right lower limb also power grade 2/5 but she did not cooperate very well with the lower limb in view of suffering from the bronchospasm. No involuntary movements seen. Objective Data Vital Signs Vital Signs: Vital Signs - 24 hr 03/09/24 20:00 03/09/24 20:00 03/09/24 21:17 Temperature Pulse Rate 70 70 Respiratory Rate 20 Blood Pressure Pulse Oximetry 94 94 Oxygen Delivery Room Air Room Air Fraction of Inspired Oxygen 03/09/24 21:17 03/09/24 21:27 03/09/24 22:00 Temperature 98.1 F Pulse Rate 70 72 72 Respiratory Rate 20 20 18 Blood Pressure 189/87 H Pulse Oximetry 95 Oxygen Delivery Fraction of Inspired Oxygen 03/10/24 00:00 03/10/24 03:18 03/10/24 03:28 Temperature Pulse Rate 66 66 68 Respiratory Rate 18 20 Blood Pressure Pulse Oximetry Oxygen Delivery Fraction of Inspired Oxygen 03/10/24 04:00 03/10/24 06:00 03/10/24 07:28 Temperature 97.7 F Pulse Rate 66 85 Respiratory Rate 18 Blood Pressure 128/60 Pulse Oximetry 92 93 Oxygen Delivery Room Air Fraction of Inspired Oxygen 21 03/10/24 07:28 03/10/24 07:38 03/10/24 08:00 Temperature Pulse Rate 62 60 66 Respiratory Rate 20 20 20 Blood Pressure Pulse Oximetry 93 Oxygen Delivery Room Air Fraction of Inspired Oxygen 03/10/24 08:00 03/10/24 08:29 03/10/24 11:10 Temperature Pulse Rate 66 66 66 Respiratory Rate Blood Pressure Pulse Oximetry Oxygen Delivery Fraction of Inspired Oxygen 03/10/24 12:00 03/10/24 13:58 03/10/24 13:58 Temperature Pulse Rate 68 70 Respiratory Rate 20 Blood Pressure Pulse Oximetry 95 Oxygen Delivery Room Air Fraction of Inspired Oxygen 21 03/10/24 14:00 03/10/24 14:06 03/10/24 16:00 Temperature 98.2 F Pulse Rate 70 72 69 Respiratory Rate 14 20 Blood Pressure 130/64 Pulse Oximetry 97 Oxygen Delivery Fraction of Inspired Oxygen 03/10/24 17:50 Temperature Pulse Rate 76 Respiratory Rate Blood Pressure Pulse Oximetry Oxygen Delivery Fraction of Inspired Oxygen Intake/Output Intake/Output: Intake & Output 03/07/24 03/08/24 03/09/24 03/10/24 23:59 23:59 23:59 23:59 Intake Total 720 2230 560 240 Output Total 1100 875 800 Balance 720 1137 -290 -370 Meds/Results Medications: Active Medications Generic Name Dose Route Start Last Admin Trade Name Freq PRN Reason Stop Dose Admin Albuterol/Ipratropium 3 ml 03/07/24 08:00 03/10/24 13:58 Ipratropium 0.5 Mg/Albuterol Sulfate 2.5 Mg Ampul.Neb 3 Ml INHALATION 3 ml Q6HRT DAVID Administration Albuterol/Ipratropium 3 ml 03/09/24 05:15 03/09/24 05:30 Ipratropium 0.5 Mg/Albuterol Sulfate 2.5 Mg Ampul.Neb 3 Ml INHALATION 3 ml Q6HRT PRN Administration wheezing Apixaban 5 mg 03/09/24 17:00 03/10/24 17:50 Apixaban 5 Mg Tablet PO 5 mg BID DAVID Administration Aspirin 81 mg 03/08/24 09:00 03/10/24 08:30 Aspirin 81 Mg Enteric Tablet PO 81 mg DAILY DAVID Administration Atorvastatin Calcium 40 mg 03/09/24 09:00 03/10/24 08:30 Atorvastatin 40 Mg Tablet PO 40 mg DAILY DAVID Administration Benzocaine 1 lozenge 03/09/24 15:43 Benzocaine/Menthol (*Bkc) 18 Ea Lozenge PO PRN PRN Sore Throat Carvedilol 25 mg 03/07/24 17:00 03/10/24 17:50 Carvedilol 25 Mg Tablet PO 25 mg BID DAVID Administration Dextromethorphan Polistirix 60 mg 03/09/24 15:07 03/10/24 17:48 Dextromethorphan Polistirex 60 Mg/10 Ml Syringe PO 60 mg Q12H PRN Administration Cough Dextrose 12.5 gm 03/07/24 14:25 Dextrose 50% 25 Gm/50 Ml Syringe IV PUSH PRN PRN Hypoglycemia Protocol Furosemide 40 mg 03/07/24 14:25 03/10/24 08:30 Furosemide 40 Mg Tablet PO 40 mg DAILY DAVID Administration Glucagon 1 mg 03/07/24 14:25 Glucagon For Inj 1 Mg Vial IM PRN PRN Hypoglycemia Protocol Glucose 15 gm 03/07/24 14:25 Glucose Oral Gel 15 Gm Of Glucse In 37.5 Gm Tube PO PRN PRN Hypoglycemia Protocol Dextrose 1,000 mls @ 100 mls/hr 03/07/24 14:25 Dextrose 5% 1,000 Ml IVPB PRN PRN Hypoglycemia Protocol Insulin Aspart 2 - 5 units 03/07/24 17:00 03/10/24 17:55 Insulin Aspart (*Bkc) 100 Units/Ml SUB-Q 4 units TIDWM DAVID Administration Protocol Insulin Aspart 6 units 03/10/24 17:00 03/10/24 17:56 Insulin Aspart (*Bkc) 100 Units/Ml SUB-Q 6 units TIDWM DAVID Administration Insulin Glargine 56 units 03/08/24 21:00 03/09/24 21:00 Insulin Glargine (*Bkc) 100 Units/Ml SUB-Q 56 units HS DAVID Administration Losartan Potassium 100 mg 03/08/24 09:00 03/10/24 08:30 Losartan Potassium 100 Mg Tablet PO 100 mg DAILY DAVID Administration Methylprednisolone Sodium Succinate 60 mg 03/09/24 18:00 03/10/24 17:51 Methylprednisolone Sod Succ 125 Mg Vial IV PUSH 60 mg Q12H DAVID Administration Mirtazapine 7.5 mg 03/07/24 21:00 03/09/24 20:15 Mirtazapine 7.5 Mg Tablet PO 7.5 mg HS DAVID Administration Radiology Results: ITS Impressions Chest X-Ray 03/06/24 23:08 IMPRESSION: No focal infiltrate or effusion. Head CT 03/08/24 14:28 IMPRESSION: 1. 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 2. Stable moderate nonspecific cerebral white matter disease, which likely represents chronic small vessel ischemic disease. 3. I discussed this result with Agata Cabrera. Head/Neck CTA 03/08/24 14:32 IMPRESSION: 1. 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 2. Moderate nonspecific cerebral white matter disease, which likely represents chronic small vessel ischemic disease. 3. Severe stenosis of the bilateral P1 posterior cerebral arteries. Moderate stenosis of intracranial right internal carotid artery and bilateral middle cerebral artery segments. 4. 0% stenosis of the proximal right internal carotid artery relative to normal distal artery lumen diameter (NASCET criteria). 5. 42% stenosis of the proximal left internal carotid artery relative to normal distal artery lumen diameter. Brain MRI 03/08/24 16:06 IMPRESSION: 1. Acute infarct in the left parietal lobe. 2. 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 3. Moderate nonspecific cerebral white matter disease, which likely represents chronic small vessel ischemic disease. Labs Labs: Laboratory Results - last 24 hr 03/09/24 03/10/24 03/10/24 21:13 06:58 08:09 WBC 13.6 H RBC 5.53 H Hgb 15.0 Hct 46.9 MCV 84.8 MCH 27.1 MCHC 32.0 RDW 13.1 Plt Count 236 MPV 11.5 H Immature Gran % (Auto) 0.6 H Neut % (Auto) 86.3 H Lymph % (Auto) 9.3 L [place] % (Auto) 2.6 Eos % (Auto) 1.1 Baso % (Auto) 0.1 L Lymph # (Auto) 1.26 [place] # (Auto) 0.4 Eos # (Auto) 0.2 Baso # (Auto) 0.0 Abs Immat Gran (auto) 0.08 H Absolute Neuts (auto) 11.7 H Absolute Nucleated RBC 0.000 Nucleated RBC % 0.0 Sodium 144 Potassium 3.3 L Chloride 106 Carbon Dioxide 29 Anion Gap 9 BUN 35 H Creatinine 0.93 Estim Creat Clear Calc 35 Estimated GFR 57 L Glucose 112 H POC Capillary Glucose 349 H 125 H Calcium 8.2 L Total Bilirubin 0.5 AST 23 ALT 25 Alkaline Phosphatase 92 Total Protein 7.0 Albumin 3.6 03/10/24 03/10/24 11:51 16:30 WBC RBC Hgb Hct MCV MCH MCHC RDW Plt Count MPV Immature Gran % (Auto) Neut % (Auto) Lymph % (Auto) [place] % (Auto) Eos % (Auto) Baso % (Auto) Lymph # (Auto) [place] # (Auto) Eos # (Auto) Baso # (Auto) Abs Immat Gran (auto) Absolute Neuts (auto) Absolute Nucleated RBC Nucleated RBC % Sodium Potassium Chloride Carbon Dioxide Anion Gap BUN Creatinine Estim Creat Clear Calc Estimated GFR Glucose POC Capillary Glucose 335 H 339 H Calcium Total Bilirubin AST ALT Alkaline Phosphatase Total Protein Albumin
[2024-03-10] MEDS: MIRTAZAPINE 7.5 MG TABLET PO (20:59)
[2024-03-10] MEDS: INSULIN GLARGINE (*BKC) 100 UNITS/ML 56 UNITS SUB-Q (21:00)
[2024-03-10 21:36] LABS: Glucose Point of Care 292 mg/dl (65-105)
[2024-03-11] VITALS (19 sets, daily range): BP systolic 125–171; BP diastolic 63–81; PULSE 59–89; RESP 16–22; TEMP 36.5–36.6; O2SAT 94–97
[2024-03-11] MEDS: IPRATROPIUM 0.5 MG/ALBUTEROL SULFATE 2.5 MG AMPUL.NEB 3 ML INHALATION ×4 (02:07→19:20)
[2024-03-11] MEDS: hydrALAZINE HCL 20 MG/ML VIAL 10 MG IV PUSH (05:13)
[2024-03-11] MEDS: methylPREDNISolone SOD SUCC 125 MG VIAL 60 MG IV PUSH ×2 (05:17→18:00)
[2024-03-11 07:20] LABS: Basophils Percent Auto 0.2 % (0.2-1.2); Eosinophils Absolute Auto 0.1 K/mm3 (0-0.3); Eosinophils Percent Auto 0.9 % (0-4.4); Hematocrit 46.5 % (37.0-47.0); Hemoglobin 15.1 g/dL (12.0-15.0); Immature Granulocyte Absolute 0.22 K/mm3 (0.00-0.031); Immature Granulocyte Percent A 1.9 % (0-0.5); Lymphocytes Absolute Auto 1.49 K/mm3 (0.9-3.2); Lymphocytes Percent Auto 13.1 % (18.3-44.2); Mean Corpuscular HGB Conc 32.5 g/dl (32-36); Mean Corpuscular Hemoglobin 27.1 pg (26-34); Mean Corpuscular Volume 83.3 fl (80-100); Mean Platelet Volume 11.4 fl (7.4-10.4); Monocytes Absolute Auto 0.4 K/mm3 (0.1-0.6); Monocytes Percent Auto 3.3 % (2.6-8.5); Neutrophils Absolute Auto 9.1 K/mm3 (1.3-6.7); Neutrophils Percent Auto 80.6 % (45.5-73.1); Platelet Count Result 246 k/mm3 (150-375); Red Blood Count 5.58 M/mm3 (4.2-5.4); Red Cell Distribution Width 13.1 % (11.5-14.5); White Blood Count 11.3 K/mm3 (4.5-10.0)
[2024-03-11 07:41] LABS: Alanine Aminotransferase 27 U/L (6-35); Albumin Level 3.6 g/dL (3.5-5.1); Alkaline Phosphatase 92 U/L (38-126); Anion Gap 5 mmol/L (4-12); Aspartate Amino Transferase 25 U/L (14-36); Bilirubin,Total 0.6 mg/dL (0.2-1.3); Blood Urea Nitrogen 32 mg/dL (7-17); Calcium 7.9 mg/dL (8.4-10.2); Carbon Dioxide 27 mmol/L (22-30); Chloride 110 mmol/L (98-107); Estimated CRCL calculation 32 ml/min; Estimated Glomerular Filt Rate 52; Glucose 128 mg/dL (65-110); Potassium 3.6 mmol/L (3.4-5.0); Sodium 142 mmol/L (137-145)
[2024-03-11 08:13] LABS: Atypical Lymphocytes Present; Platelet Estimate Adequate (Adequate); Schistocytes None Seen
[2024-03-11 08:47] LABS: Glucose Point of Care 135 mg/dl (65-105)
[2024-03-11] MEDS: INSULIN ASPART (*BKC) 100 UNITS/ML 6 UNITS SUB-Q ×3 (08:59→17:58)
[2024-03-11] MEDS: ASPIRIN 81 MG ENTERIC TABLET PO (09:00)
[2024-03-11] MEDS: ATORVASTATIN 40 MG TABLET PO (09:00)
[2024-03-11] MEDS: carvediloL 25 MG TABLET PO ×2 (09:00→18:02)
[2024-03-11] MEDS: FUROSEMIDE 40 MG TABLET PO (09:00)
[2024-03-11] MEDS: LOSARTAN POTASSIUM 100 MG TABLET PO (09:01)
[2024-03-11] MEDS: DEXTROMETHORPHAN POLISTIREX 60 MG/10 ML SYRINGE PO (09:01)
[2024-03-11] MEDS: APIXABAN 5 MG TABLET PO ×2 (09:01→18:00)
--- NOTE | 2024-03-11 09:58 | P.PNIM_ITS ---
Progress Note: A&P Assessment and Plan (1) Stroke: Code(s): I63.9 - Cerebral infarction, unspecified Status: Acute Assessment and Plan: 03/09: Call received by patients RN that patient developed right side weakness and the inability to move her right arm and right leg when working with PT. Reported to patients room at that time. Vitals were stable. Blood pressure was slightly elevated in the 150s systolic. Patient remained AOx3. Cranial nerves II-XII intact. Sensation intact throughout. Unable to raise her right arm, has weak right hand squeeze compared to the left. Unable to move her right leg. Code stroke called. Spoke with Cardiology Dr. Mcintyre in terms of patients eliquis dosing. Per [facility] records patient was on eliquis 2.5 mg BID for prior stroke with a likely embolic etiology. Dr. cMintyre agreed with increasing the dose to the therapeutic 5 mg BID as patient has a normal BMI and kidney function. Patient is already on ASA 81 mg daily. Increased eliquis 2.5 mg BID to 5 mg BID. Changed pravastatin 40 mg daily to high intensity atorvastatin 40 mg daily. No history of Afib, on eliquis for prior stroke. Follows Dr. [facility] at [facility]. Lipid panel: cholesterol 163, LDL 105, HDL 30, triglycerides 138 Echo 65-70% LVEF with grade I diastolic dysfunction No known history of afib per chart review and , she remains on tele CT head: 1. 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 2. Stable moderate nonspecific cerebral white matter disease, which likely represents chronic small vessel ischemic disease. CTA head/neck: 1. 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 2. Moderate nonspecific cerebral white matter disease, which likely represents chronic small vessel ischemic disease. 3.. Severe stenosis of the bilateral P1 posterior cerebral arteries. Moderate stenosis of intracranial right internal carotid artery and bilateral middle cerebral artery segments. 4. 0% stenosis of the proximal right internal carotid artery relative to normal distal artery lumen diameter (NASCET criteria). 5. 42% stenosis of the proximal left internal carotid artery relative to normal distal artery lumen diameter. MRI: 1. Acute infarct in the left parietal lobe. 2. 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 3. Moderate nonspecific cerebral white matter disease, which likely represents chronic small vessel ischemic disease. Monitor CBC, CMP, magnesium, troponin, and lipid profile Monitor blood pressure, allow for permissive hypertension. Will treat hypertension if systolic is greater than 2800 and/or diastolic greater than 100 PT/OT recommending SNF placement Neurology consulted, appreciate recommendations MRI shows several small areas suggestive of possible showering of emboli. 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 For nonhemorrhagic stroke it is important to not allow hypotension at least for the 1st 48 hours. Echocardiogram was performed. Appears to be in sinus rhythm. Consider prolonged monitoring to see if she has atrial fibrillation which could have caused above shower of emboli although artery to artery emboli can also occur. Overall cardiac source remains suspect and should be investigated. Speech therapy eval, recommending MBS. MBS ordered. 03/11: Patient is now out of permissive hypertension window. Patient was previously on losartan, however possible that this is related to patients losartan, changed to amlodipine 10 mg daily and HCTZ 12.5 mg daily. Continue to monitor BP. (2) Bronchospasm: Code(s): J98.01 - Acute bronchospasm Status: Acute Assessment and Plan: Patient continues to have a dry wheezing cough. - Viral panel negative - Chest XR unremarkable - Delsym for cough suppression - Solumedrol 60 mg IV BID for bronchospasms - Speech therapy consulted - Possible that this is related to patients losartan, changed to amlodipine 10 mg daily and HCTZ 12.5 mg daily - Possible vocal cord issue however patients voice is clear - Monitor (3) Hypertension: Code(s): I10 - Essential (primary) hypertension Status: Acute Assessment and Plan: Patient reports blood pressures in the 200s systolic at home, blood pressure was noted to be 209/75 on arrival to the [facility] Blood pressures remain stable on home medications. - Troponin negative x2 - BNP 1170 - Chest XR: No focal infiltrate or effusion. 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 use: without terminal computer operator use Diabetes mellitus type: type 2 Qualified Code(s): E11.9 - Type 2 diabetes mellitus without complications Code(s): E11.9 - Type 2 diabetes mellitus without complications Status: Chronic Assessment and Plan: - hypoglycemia protocol - POC blood glucose ACHS - home medication - tresiba 62 units subq daily , metformin 500 mg BID - 03/10: patient continued to require 4-5 units sliding scale with meals on the 3 units TIDWM scheduled - correct regimen ordered - lantus 56 units, 6 units TIDWM and mod dose SSI TIDWM - A1C 9.3 on 02/21/24 (5) History of stroke: Code(s): Z86.73 - Personal history of transient ischemic attack (TIA), and cerebral infarction without residual deficits Status: Acute Assessment and Plan: Stoke history with residual short term memory deficits and intermittent difficulty with word finding. - ASA 81 mg daily - Eliquis 2.5 mg BID increased to 5 mg BID - pravastatin 40 mg daily changed to atorvastatin 40 mg daily Time Spent With Patient Time with patient: 25 - 35 minutes Subjective Date/time seen: 03/11/24 09:58 Interval history: 83 year old female with past medical history of stroke (short term memory deficits and intermittent difficulty with word finding), hypertension, hyperlipidemia, diastolic heart failure, and diabetes presents to the hospital for hypertension with systolics in the 200s. Patient is pleasant sitting up in bed with at bedside. Per patient was able to move her upper extremity against gravity this morning and is now no longer moving the arm at all. Patient has been having fluctuating exams since acute stroke. Patient continues to have a dry cough. Possible that this is related to patients losartan, changed to amlodipine 10 mg daily and HCTZ 12.5 mg daily. Speech therapy evaluation recommending MBS. MBS ordered. Patient has no complaints denying chest pain, shortness of breath, palpitations, nausea/vomiting and abdominal pain. Review of Systems Review of Systems: All systems reviewed & are unremarkable except as noted in HPI and below Exam Narrative: AF HR 71 RR 18 SpO2 94 BP 125/63 General: female in no acute respiratory distress who is nontoxic appearing, sitting up in chair. HEENT: Normocephalic. Atraumatic. Extraocular movement intact. Sclera clear and anicteric. No facial asymmetry. Chest: Lungs are clear to auscultation bilaterally. No wheezes or crackles. Continued dry cough. CV: Heart was regular rate and rhythm. S1-S2. No murmurs, gallops, or rubs. Abd: Abdomen was soft. Nontender. Nondistended. Positive bowel sounds. No organomegaly or masses. Ext: No clubbing, cyanosis, or edema. 2+ DP pulses bilaterally. Neuro: Patient is alert and oriented x3. Cranial nerves are intact. Speech is clear. Improved right sided lean. Unable to lift right arm without assistance. Able to move her fingers and has a weak manager metal. Unable to move her right lower extremity. Patient is pleasant and cooperative. Objective Data Vital Signs Vital Signs: Vital Signs - 24 hr 03/10/24 11:10 03/10/24 12:00 03/10/24 13:58 Temperature Pulse Rate 66 68 Respiratory Rate Blood Pressure Pulse Oximetry 95 Oxygen Delivery Room Air Fraction of Inspired Oxygen 21 03/10/24 13:58 03/10/24 14:00 03/10/24 14:06 Temperature 98.2 F Pulse Rate 70 70 72 Respiratory Rate 20 14 20 Blood Pressure 130/64 Pulse Oximetry 97 Oxygen Delivery Fraction of Inspired Oxygen 03/10/24 16:00 03/10/24 17:50 03/10/24 20:00 Temperature Pulse Rate 69 76 75 Respiratory Rate Blood Pressure Pulse Oximetry Oxygen Delivery Fraction of Inspired Oxygen 03/10/24 21:15 03/10/24 21:15 03/10/24 21:29 Temperature Pulse Rate 71 65 Respiratory Rate 20 20 Blood Pressure Pulse Oximetry 97 Oxygen Delivery Room Air Fraction of Inspired Oxygen 03/10/24 22:00 03/11/24 00:00 03/11/24 02:07 Temperature 98.4 F Pulse Rate 71 70 69 Respiratory Rate 16 18 Blood Pressure 166/74 H Pulse Oximetry 95 Oxygen Delivery Fraction of Inspired Oxygen 03/11/24 02:18 03/11/24 04:00 03/11/24 05:56 Temperature 97.7 F Pulse Rate 70 68 70 Respiratory Rate 18 16 Blood Pressure 171/79 H Pulse Oximetry 97 Oxygen Delivery Fraction of Inspired Oxygen 03/11/24 07:05 03/11/24 07:05 03/11/24 07:15 Temperature Pulse Rate 59 L 59 L 64 Respiratory Rate 18 18 18 Blood Pressure Pulse Oximetry 94 Oxygen Delivery Room Air Fraction of Inspired Oxygen 03/11/24 09:00 Temperature Pulse Rate 84 Respiratory Rate Blood Pressure Pulse Oximetry Oxygen Delivery Fraction of Inspired Oxygen Intake/Output Intake/Output: Intake & Output 03/08/24 03/09/24 03/10/24 03/11/24 23:59 23:59 23:59 23:59 Intake Total 2230 560 1360 550 Output Total 4005 751 9924 1200 Balance 1130 -290 -440 -650 Meds/Results Medications: Active Medications Generic Name Dose Route Start Last Admin Trade Name Freq PRN Reason Stop Dose Admin Albuterol/Ipratropium 3 ml 03/07/24 08:00 03/11/24 07:06 Ipratropium 0.5 Mg/Albuterol Sulfate 2.5 Mg Ampul.Neb 3 Ml INHALATION 3 ml Q6HRT DAVID Administration Albuterol/Ipratropium 3 ml 03/09/24 05:15 03/09/24 05:30 Ipratropium 0.5 Mg/Albuterol Sulfate 2.5 Mg Ampul.Neb 3 Ml INHALATION 3 ml Q6HRT PRN Administration wheezing Apixaban 5 mg 03/09/24 17:00 03/11/24 09:01 Apixaban 5 Mg Tablet PO 5 mg BID DAVID Administration Aspirin 81 mg 03/08/24 09:00 03/11/24 09:00 Aspirin 81 Mg Enteric Tablet PO 81 mg DAILY DAVID Administration Atorvastatin Calcium 40 mg 03/09/24 09:00 03/11/24 09:00 Atorvastatin 40 Mg Tablet PO 40 mg DAILY DAVID Administration Benzocaine 1 lozenge 03/09/24 15:43 Benzocaine/Menthol (*Bkc) 18 Ea Lozenge PO PRN PRN Sore Throat Carvedilol 25 mg 03/07/24 17:00 03/11/24 09:00 Carvedilol 25 Mg Tablet PO 25 mg BID DAVID Administration Dextromethorphan Polistirix 60 mg 03/09/24 15:07 03/11/24 09:01 Dextromethorphan Polistirex 60 Mg/10 Ml Syringe PO 60 mg Q12H PRN Administration Cough Dextrose 12.5 gm 03/07/24 14:25 Dextrose 50% 25 Gm/50 Ml Syringe IV PUSH PRN PRN Hypoglycemia Protocol Furosemide 40 mg 03/07/24 14:25 03/11/24 09:00 Furosemide 40 Mg Tablet PO 40 mg DAILY DAVID Administration Glucagon 1 mg 03/07/24 14:25 Glucagon For Inj 1 Mg Vial IM PRN PRN Hypoglycemia Protocol Glucose 15 gm 03/07/24 14:25 Glucose Oral Gel 15 Gm Of Glucse In 37.5 Gm Tube PO PRN PRN Hypoglycemia Protocol Dextrose 1,000 mls @ 100 mls/hr 03/07/24 14:25 Dextrose 5% 1,000 Ml IVPB PRN PRN Hypoglycemia Protocol Insulin Aspart 2 - 5 units 03/07/24 17:00 03/11/24 08:58 Insulin Aspart (*Bkc) 100 Units/Ml SUB-Q Not Given TIDWM DAVID Protocol Insulin Aspart 6 units 03/10/24 17:00 03/11/24 08:59 Insulin Aspart (*Bkc) 100 Units/Ml SUB-Q 6 units TIDWM DAVID Administration Insulin Glargine 56 units 03/08/24 21:00 03/10/24 21:00 Insulin Glargine (*Bkc) 100 Units/Ml SUB-Q 56 units HS DAVID Administration Losartan Potassium 100 mg 03/08/24 09:00 03/11/24 09:01 Losartan Potassium 100 Mg Tablet PO 100 mg DAILY DAVID Administration Methylprednisolone Sodium Succinate 60 mg 03/09/24 18:00 03/11/24 05:17 Methylprednisolone Sod Succ 125 Mg Vial IV PUSH 60 mg Q12H DAVID Administration Mirtazapine 7.5 mg 03/07/24 21:00 03/10/24 20:59 Mirtazapine 7.5 Mg Tablet PO 7.5 mg HS DAVID Administration Radiology Results: ITS Impressions Chest X-Ray 03/06/24 23:08 IMPRESSION: No focal infiltrate or effusion. Head CT 03/08/24 14:28 IMPRESSION: 1. 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 2. Stable moderate nonspecific cerebral white matter disease, which likely represents chronic small vessel ischemic disease. 3. I discussed this result with Agata Cabrera. Head/Neck CTA 03/08/24 14:32 IMPRESSION: 1. 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 2. Moderate nonspecific cerebral white matter disease, which likely represents chronic small vessel ischemic disease. 3. Severe stenosis of the bilateral P1 posterior cerebral arteries. Moderate stenosis of intracranial right internal carotid artery and bilateral middle cerebral artery segments. 4. 0% stenosis of the proximal right internal carotid artery relative to normal distal artery lumen diameter (NASCET criteria). 5. 42% stenosis of the proximal left internal carotid artery relative to normal distal artery lumen diameter. Brain MRI 03/08/24 16:06 IMPRESSION: 1. Acute infarct in the left parietal lobe. 2. 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 3. Moderate nonspecific cerebral white matter disease, which likely represents chronic small vessel ischemic disease. Labs Labs: Laboratory Results - last 24 hr 03/10/24 03/10/24 03/10/24 11:51 16:30 20:36 WBC RBC Hgb Hct MCV MCH MCHC RDW Plt Count MPV Immature Gran % (Auto) Neut % (Auto) Lymph % (Auto) [place] % (Auto) Eos % (Auto) Baso % (Auto) Lymph # (Auto) [place] # (Auto) Eos # (Auto) Baso # (Auto) Abs Immat Gran (auto) Absolute Neuts (auto) Absolute Nucleated RBC Nucleated RBC % Atypical Lymphocytes Platelet Estimate Schistocytes Sodium Potassium Chloride Carbon Dioxide Anion Gap BUN Creatinine Estim Creat Clear Calc Estimated GFR Glucose POC Capillary Glucose 335 H 339 H 292 H Calcium Total Bilirubin AST ALT Alkaline Phosphatase Total Protein Albumin 03/11/24 03/11/24 07:07 08:39 WBC 11.3 H RBC 5.58 H Hgb 15.1 H Hct 46.5 MCV 83.3 MCH 27.1 MCHC 32.5 RDW 13.1 Plt Count 246 MPV 11.4 H Immature Gran % (Auto) 1.9 H Neut % (Auto) 80.6 H Lymph % (Auto) 13.1 L [place] % (Auto) 3.3 Eos % (Auto) 0.9 Baso % (Auto) 0.2 Lymph # (Auto) 1.49 [place] # (Auto) 0.4 Eos # (Auto) 0.1 Baso # (Auto) 0.0 Abs Immat Gran (auto) 0.22 H Absolute Neuts (auto) 9.1 H Absolute Nucleated RBC 0.000 Nucleated RBC % 0.0 Atypical Lymphocytes Present Platelet Estimate Adequate Schistocytes None seen Sodium 142 Potassium 3.6 Chloride 110 H Carbon Dioxide 27 Anion Gap 5 BUN 32 H Creatinine 1.01 H Estim Creat Clear Calc 32 Estimated GFR 52 L Glucose 128 H POC Capillary Glucose 135 H Calcium 7.9 L Total Bilirubin 0.6 AST 25 ALT 27 Alkaline Phosphatase 92 Total Protein 7.0 Albumin 3.6 Quality VTE Prophylaxis VTE prophylaxis: pharmacologic ordered (continue home eliquis)
--- NOTE | 2024-03-11 10:39 | PCSTNOTE ---
Please refer to the Bedside Swallow Evaluation in the EMR. Please note, silent aspiration cannot be ruled out at bedside. Pt was seen bedside as ordered for a swallow evaluation; pt was playing a card game with spouse upon ST entering room; pt had a dry coughing spell upon HOB being elevated for test trials; per pts spouse she's had that dry cough for quite awhile . Cursory oral motor exam revealed good lingual and labial ROM & strength with only a possible trace R labial weakness upon retraction. Good dentition. Once coughing spell subsided she was tested with ice chips, 5ml water via a spoon, pudding, and a cracker. Water was also tested via cup sips and via a straw. A (dry) coughing spell occurred after the cup sips only. Due to the inconsistency of the cough, dysphagia cannot be ruled out at bedside; therefore an MBS is recommended to further assess the swallow, determine a safe diet as well as an appropriate POC. Impression: questionable (if any) degree of dysphagia which should be determined via MBS Recommendation: it is felt pt could continue with current diet until completion of MBS; RN aware
[2024-03-11 11:41] LABS: Glucose Point of Care 255 mg/dl (65-105)
[2024-03-11] MEDS: INSULIN ASPART (*BKC) 100 UNITS/ML SUB-Q ×2 (12:42→17:58)
[2024-03-11] MEDS: amLODIPine BESYLATE 10 MG TABLET PO (14:56)
[2024-03-11] MEDS: hydroCHLOROthiazide 12.5 MG CAPSULE PO (14:56)
[2024-03-11 16:58] LABS: Glucose Point of Care 208 mg/dl (65-105)
[2024-03-11] MEDS: MIRTAZAPINE 7.5 MG TABLET PO (21:27)
[2024-03-11] MEDS: INSULIN GLARGINE (*BKC) 100 UNITS/ML 56 UNITS SUB-Q (21:28)
[2024-03-11 21:43] LABS: Glucose Point of Care 228 mg/dl (65-105)
[2024-03-12] VITALS (21 sets, daily range): BP systolic 125–137; BP diastolic 50–66; PULSE 65–84; RESP 15–22; TEMP 36.3–36.9; O2SAT 90–99
[2024-03-12] MEDS: IPRATROPIUM 0.5 MG/ALBUTEROL SULFATE 2.5 MG AMPUL.NEB 3 ML INHALATION ×4 (02:22→20:16)
[2024-03-12] MEDS: methylPREDNISolone SOD SUCC 125 MG VIAL 60 MG IV PUSH ×2 (05:53→16:50)
[2024-03-12 06:33] LABS: Basophils Percent Auto 0.2 % (0.2-1.2); Eosinophils Percent Auto 0.1 % (0-4.4); Hematocrit 46.9 % (37.0-47.0); Hemoglobin 15.1 g/dL (12.0-15.0); Immature Granulocyte Absolute 0.12 K/mm3 (0.00-0.031); Immature Granulocyte Percent A 1.2 % (0-0.5); Lymphocytes Absolute Auto 1.63 K/mm3 (0.9-3.2); Lymphocytes Percent Auto 16.1 % (18.3-44.2); Mean Corpuscular HGB Conc 32.2 g/dl (32-36); Mean Corpuscular Hemoglobin 27.4 pg (26-34); Mean Corpuscular Volume 85.1 fl (80-100); Mean Platelet Volume 11.2 fl (7.4-10.4); Monocytes Absolute Auto 0.5 K/mm3 (0.1-0.6); Monocytes Percent Auto 4.6 % (2.6-8.5); Neutrophils Absolute Auto 7.9 K/mm3 (1.3-6.7); Neutrophils Percent Auto 77.8 % (45.5-73.1); Platelet Count Result 219 k/mm3 (150-375); Red Blood Count 5.51 M/mm3 (4.2-5.4); Red Cell Distribution Width 13.2 % (11.5-14.5); White Blood Count 10.1 K/mm3 (4.5-10.0)
[2024-03-12 06:44] LABS: Alanine Aminotransferase 36 U/L (6-35); Albumin Level 3.2 g/dL (3.5-5.1); Alkaline Phosphatase 80 U/L (38-126); Anion Gap 8 mmol/L (4-12); Aspartate Amino Transferase 28 U/L (14-36); Bilirubin,Total 0.6 mg/dL (0.2-1.3); Blood Urea Nitrogen 34 mg/dL (7-17); Calcium 7.2 mg/dL (8.4-10.2); Carbon Dioxide 26 mmol/L (22-30); Chloride 104 mmol/L (98-107); Estimated CRCL calculation 33 ml/min; Estimated Glomerular Filt Rate 53; Glucose 116 mg/dL (65-110); Potassium 3.6 mmol/L (3.4-5.0); Sodium 138 mmol/L (137-145)
--- NOTE | 2024-03-12 07:40 | P.PNIM_ITS ---
Progress Note: A&P Assessment and Plan (1) Stroke: Code(s): I63.9 - Cerebral infarction, unspecified Status: Acute Assessment and Plan: 03/09: Call received by patients RN that patient developed right side weakness and the inability to move her right arm and right leg when working with PT. Reported to patients room at that time. Vitals were stable. Blood pressure was slightly elevated in the 150s systolic. Patient remained AOx3. Cranial nerves II-XII intact. Sensation intact throughout. Unable to raise her right arm, has weak right hand squeeze compared to the left. Unable to move her right leg. Code stroke called. Spoke with Cardiology Dr. Mcintyre in terms of patients eliquis dosing. Per [facility] records patient was on eliquis 2.5 mg BID for prior stroke with a likely embolic etiology. Dr. Mcintyre agreed with increasing the dose to the therapeutic 5 mg BID as patient has a normal BMI and kidney function. Patient is already on ASA 81 mg daily. Increased eliquis 2.5 mg BID to 5 mg BID. Changed pravastatin 40 mg daily to high intensity atorvastatin 40 mg daily. No history of Afib, on eliquis for prior stroke. Follows Dr. [facility] at [facility]. Lipid panel: cholesterol 163, LDL 105, HDL 30, triglycerides 138 Echo 65-70% LVEF with grade I diastolic dysfunction No known history of afib per chart review and , she remains on tele CT head: 1. 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 2. Stable moderate nonspecific cerebral white matter disease, which likely represents chronic small vessel ischemic disease. CTA head/neck: 1. 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 2. Moderate nonspecific cerebral white matter disease, which likely represents chronic small vessel ischemic disease. 3.. Severe stenosis of the bilateral P1 posterior cerebral arteries. Moderate stenosis of intracranial right internal carotid artery and bilateral middle cerebral artery segments. 4. 0% stenosis of the proximal right internal carotid artery relative to normal distal artery lumen diameter (NASCET criteria). 5. 42% stenosis of the proximal left internal carotid artery relative to normal distal artery lumen diameter. MRI: 1. Acute infarct in the left parietal lobe. 2. 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 3. Moderate nonspecific cerebral white matter disease, which likely represents chronic small vessel ischemic disease. Monitor CBC, CMP, magnesium, troponin, and lipid profile Monitor blood pressure, allow for permissive hypertension. Will treat hypertension if systolic is greater than 2800 and/or diastolic greater than 100 PT/OT recommending SNF placement Neurology consulted, appreciate recommendations MRI shows several small areas suggestive of possible showering of emboli. History of a mitral valve surgery she is on low-dose Eliquis we may wish to discuss this further with the zipper setter chainstitch regarding the dose adjustment. For nonhemorrhagic stroke it is important to not allow hypotension at least for the 1st 48 hours. Echocardiogram was performed. Appears to be in sinus rhythm. Consider prolonged monitoring to see if she has atrial fibrillation which could have caused above shower of emboli although artery to artery emboli can also occur. Overall cardiac source remains suspect and should be investigated. Speech therapy eval, recommending MBS. Normal MBS. 03/11: Patient is now out of permissive hypertension window. Patient was previously on losartan, however possible that this is related to patients losartan, changed to amlodipine 10 mg daily and HCTZ 12.5 mg daily. Continue to monitor BP. 03/12: Patients exam has improved. She is now able to move her right upper and lower extremity against gravity. Blood pressures remain stable on current antihypertensives. (2) Bronchospasm: Code(s): J98.01 - Acute bronchospasm Status: Acute Assessment and Plan: Patient notes improvement to her dry wheezing cough. - Viral panel negative - Chest XR unremarkable - Delsym for cough suppression - Solumedrol 60 mg IV BID for bronchospasms - Speech therapy consulted - Possible that this is related to patients losartan, changed to amlodipine 10 m g daily and HCTZ 12.5 mg daily - Possible vocal cord issue however patients voice is clear - Monitor (3) Hypertension: Code(s): I10 - Essential (primary) hypertension Status: Acute Assessment and Plan: Patient reports blood pressures in the 200s systolic at home, blood pressure was noted to be 209/75 on arrival to the [facility] Blood pressures remain stable on home medications. - Troponin negative x2 - BNP 1170 - Chest XR: No focal infiltrate or effusion. - Echo: LVEF 65-70% with grade I diastolic dysfunction - Since admission blood pressures have been maintaining in the 150 range - home medications: carvedilol 25 mg BID, lasix 40 mg daily - discontinued losartan 100 mg daily as possible cause of patients cough, started amlodipine 10 mg and HCTZ 12.5 mg daily - Blood pressures remain stable, continue to monitor blood pressures (4) Diabetes mellitus: Qualifiers: Diabetes mellitus complication status: without complication Diabetes mellitus retirement insulin use: without retirement use Diabetes mellitus type: type 2 Qualified Code(s): E11.9 - Type 2 diabetes mellitus without complications Code(s): E11.9 - Type 2 diabetes mellitus without complications Status: Chronic Assessment and Plan: - hypoglycemia protocol - POC blood glucose ACHS - home medication - tresiba 62 units subq daily , metformin 500 mg BID - 03/10: patient continued to require 4-5 units sliding scale with meals on the 3 units TIDWM scheduled - correct regimen ordered - lantus 56 units, 6 units TIDWM and mod dose SSI TIDWM - A1C 9.3 on 02/21/24 (5) History of stroke: Code(s): Z86.73 - Personal history of transient ischemic attack (TIA), and cerebral infarction without residual deficits Status: Acute Assessment and Plan: Stoke history with residual short term memory deficits and intermittent difficulty with word finding. - ASA 81 mg daily - Eliquis 2.5 mg BID increased to 5 mg BID - pravastatin 40 mg daily changed to atorvastatin 40 mg daily Time Spent With Patient Time with patient: 25 - 35 minutes Subjective Date/time seen: 03/12/24 07:40 Interval history: 83 year old female with past medical history of stroke (short term memory deficits and intermittent difficulty with word finding), hypertension, hyperlipidemia, diastolic heart failure, and diabetes presents to the hospital for hypertension with systolics in the 200s. Patient is pleasant lying comfortably in bed with at bedside. Per her and her she is doing much better today. They note that her cough has somewhat improved on the new antihypertensives. MBS was normal. Patient has no complaints denying chest pain, shortness of breath, palpitations, nausea/vomiting and abdominal pain. Review of Systems Review of Systems: All systems reviewed & are unremarkable except as noted in HPI and below Exam Narrative: AF HR 84 RR 16 SpO2 99 BP 136/50 General: female in no acute respiratory distress who is nontoxic appearing, sitting up in chair. HEENT: Normocephalic. Atraumatic. Extraocular movement intact. Sclera clear and anicteric. No facial asymmetry. Chest: Lungs are clear to auscultation bilaterally. No wheezes or crackles. Improved dry cough. CV: Heart was regular rate and rhythm. S1-S2. No murmurs, gallops, or rubs. Abd: Abdomen was soft. Nontender. Nondistended. Positive bowel sounds. No organomegaly or masses. Ext: No clubbing, cyanosis, or edema. 2+ DP pulses bilaterally. Neuro: Patient is alert and oriented x3. Cranial nerves are intact. Speech is clear. Improved right sided lean. 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 Able to move her right lower extremity against gravity, weak plantar/dorsal flexion Patient is pleasant and cooperative. Objective Data Vital Signs Vital Signs: Vital Signs - 24 hr 03/11/24 08:00 03/11/24 09:00 03/11/24 12:00 Temperature Pulse Rate 89 84 71 Respiratory Rate Blood Pressure Pulse Oximetry 03/11/24 13:10 03/11/24 13:20 03/11/24 14:00 Temperature 97.9 F Pulse Rate 72 71 67 Respiratory Rate 18 18 22 H Blood Pressure 125/63 Pulse Oximetry 95 03/11/24 16:00 03/11/24 18:02 03/11/24 19:20 Temperature Pulse Rate 77 78 78 Respiratory Rate 18 Blood Pressure Pulse Oximetry 03/11/24 19:28 03/11/24 20:00 03/11/24 21:51 Temperature 97.7 F Pulse Rate 74 73 74 Respiratory Rate 18 18 Blood Pressure 165/81 H Pulse Oximetry 97 03/12/24 00:00 03/12/24 02:22 03/12/24 02:30 Temperature Pulse Rate 72 72 73 Respiratory Rate 18 18 Blood Pressure Pulse Oximetry 03/12/24 04:00 03/12/24 05:37 Temperature 98.4 F Pulse Rate 65 71 Respiratory Rate 20 Blood Pressure 136/50 L Pulse Oximetry 99 Intake/Output Intake/Output: Intake & Output 03/09/24 03/10/24 03/11/24 03/12/24 23:59 23:59 23:59 23:59 Intake Total 560 1360 1530 1400 Output Total 850 1800 3850 850 Balance -979 -148 -7131 550 Meds/Results Medications: Active Medications Generic Name Dose Route Start Last Admin Trade Name Freq PRN Reason Stop Dose Admin Albuterol/Ipratropium 3 ml 03/07/24 08:00 03/12/24 02:22 Ipratropium 0.5 Mg/Albuterol Sulfate 2.5 Mg Ampul.Neb 3 Ml INHALATION 3 ml Q6HRT DAVID Administration Albuterol/Ipratropium 3 ml 03/09/24 05:15 03/09/24 05:30 Ipratropium 0.5 Mg/Albuterol Sulfate 2.5 Mg Ampul.Neb 3 Ml INHALATION 3 ml Q6HRT PRN Administration wheezing Amlodipine Besylate 10 mg 03/11/24 14:20 03/11/24 14:56 Amlodipine Besylate 10 Mg Tablet PO 10 mg DAILY DAVID Administration Apixaban 5 mg 03/09/24 17:00 03/11/24 18:00 Apixaban 5 Mg Tablet PO 5 mg BID DAVID Administration Aspirin 81 mg 03/08/24 09:00 03/11/24 09:00 Aspirin 81 Mg Enteric Tablet PO 81 mg DAILY DAVID Administration Atorvastatin Calcium 40 mg 03/09/24 09:00 03/11/24 09:00 Atorvastatin 40 Mg Tablet PO 40 mg DAILY DAVID Administration Benzocaine 1 lozenge 03/09/24 15:43 Benzocaine/Menthol (*Bkc) 18 Ea Lozenge PO PRN PRN Sore Throat Carvedilol 25 mg 03/07/24 17:00 03/11/24 18:02 Carvedilol 25 Mg Tablet PO 25 mg BID DAVID Administration Dextromethorphan Polistirix 60 mg 03/09/24 15:07 03/11/24 09:01 Dextromethorphan Polistirex 60 Mg/10 Ml Syringe PO 60 mg Q12H PRN Administration Cough Dextrose 12.5 gm 03/07/24 14:25 Dextrose 50% 25 Gm/50 Ml Syringe IV PUSH PRN PRN Hypoglycemia Protocol Furosemide 40 mg 03/07/24 14:25 03/11/24 09:00 Furosemide 40 Mg Tablet PO 40 mg DAILY DAVID Administration Glucagon 1 mg 03/07/24 14:25 Glucagon For Inj 1 Mg Vial IM PRN PRN Hypoglycemia Protocol Glucose 15 gm 03/07/24 14:25 Glucose Oral Gel 15 Gm Of Glucse In 37.5 Gm Tube PO PRN PRN Hypoglycemia Protocol Hydrochlorothiazide 12.5 mg 03/11/24 14:20 03/11/24 14:56 Hydrochlorothiazide 12.5 Mg Capsule PO 12.5 mg QAM DAVID Administration Dextrose 1,000 mls @ 100 mls/hr 03/07/24 14:25 Dextrose 5% 1,000 Ml IVPB PRN PRN Hypoglycemia Protocol Insulin Aspart 2 - 5 units 03/07/24 17:00 03/11/24 17:58 Insulin Aspart (*Bkc) 100 Units/Ml SUB-Q 2 units TIDWM DAVID Administration Protocol Insulin Aspart 6 units 03/10/24 17:00 03/11/24 17:58 Insulin Aspart (*Bkc) 100 Units/Ml SUB-Q 6 units TIDWM DAVID Administration Insulin Glargine 56 units 03/08/24 21:00 03/11/24 21:28 Insulin Glargine (*Bkc) 100 Units/Ml SUB-Q 56 units HS DAVID Administration Methylprednisolone Sodium Succinate 60 mg 03/09/24 18:00 03/12/24 05:53 Methylprednisolone Sod Succ 125 Mg Vial IV PUSH 60 mg Q12H DAVID Administration Mirtazapine 7.5 mg 03/07/24 21:00 03/11/24 21:27 Mirtazapine 7.5 Mg Tablet PO 7.5 mg HS DAVID Administration Radiology Results: ITS Impressions Chest X-Ray 03/06/24 23:08 IMPRESSION: No focal infiltrate or effusion. Head CT 03/08/24 14:28 IMPRESSION: 1. 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 2. Stable moderate nonspecific cerebral white matter disease, which likely represents chronic small vessel ischemic disease. 3. I discussed this result with Agata Cabrera. Head/Neck CTA 03/08/24 14:32 IMPRESSION: 1. 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 2. Moderate nonspecific cerebral white matter disease, which likely represents chronic small vessel ischemic disease. 3. Severe stenosis of the bilateral P1 posterior cerebral arteries. Moderate stenosis of intracranial right internal carotid artery and bilateral middle cerebral artery segments. 4. 0% stenosis of the proximal right internal carotid artery relative to normal distal artery lumen diameter (NASCET criteria). 5. 42% stenosis of the proximal left internal carotid artery relative to normal distal artery lumen diameter. Brain MRI 03/08/24 16:06 IMPRESSION: 1. Acute infarct in the left parietal lobe. 2. 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 3. Moderate nonspecific cerebral white matter disease, which likely represents chronic small vessel ischemic disease. Labs Labs: Laboratory Results - last 24 hr 03/11/24 03/11/24 03/11/24 07:07 08:39 11:34 WBC 11.3 H RBC 5.58 H Hgb 15.1 H Hct 46.5 MCV 83.3 MCH 27.1 MCHC 32.5 RDW 13.1 Plt Count 246 MPV 11.4 H Immature Gran % (Auto) 1.9 H Neut % (Auto) 80.6 H Lymph % (Auto) 13.1 L [place] % (Auto) 3.3 Eos % (Auto) 0.9 Baso % (Auto) 0.2 Lymph # (Auto) 1.49 [place] # (Auto) 0.4 Eos # (Auto) 0.1 Baso # (Auto) 0.0 Abs Immat Gran (auto) 0.22 H Absolute Neuts (auto) 9.1 H Absolute Nucleated RBC 0.000 Nucleated RBC % 0.0 Atypical Lymphocytes Present Platelet Estimate Adequate Schistocytes None seen Sodium 142 Potassium 3.6 Chloride 110 H Carbon Dioxide 27 Anion Gap 5 BUN 32 H Creatinine 1.01 H Estim Creat Clear Calc 32 Estimated GFR 52 L Glucose 128 H POC Capillary Glucose 135 H 255 H Calcium 7.9 L Total Bilirubin 0.6 AST 25 ALT 27 Alkaline Phosphatase 92 Total Protein 7.0 Albumin 3.6 03/11/24 03/11/24 03/12/24 16:54 21:26 06:16 WBC 10.1 H RBC 5.51 H Hgb 15.1 H Hct 46.9 MCV 85.1 MCH 27.4 MCHC 32.2 RDW 13.2 Plt Count 219 MPV 11.2 H Immature Gran % (Auto) 1.2 H Neut % (Auto) 77.8 H Lymph % (Auto) 16.1 L [place] % (Auto) 4.6 Eos % (Auto) 0.1 Baso % (Auto) 0.2 Lymph # (Auto) 1.63 [place] # (Auto) 0.5 Eos # (Auto) 0.0 Baso # (Auto) 0.0 Abs Immat Gran (auto) 0.12 H Absolute Neuts (auto) 7.9 H Absolute Nucleated RBC 0.000 Nucleated RBC % 0.0 Atypical Lymphocytes Platelet Estimate Schistocytes Sodium 138 Potassium 3.6 Chloride 104 Carbon Dioxide 26 Anion Gap 8 BUN 34 H Creatinine 0.99 Estim Creat Clear Calc 33 Estimated GFR 53 L Glucose 116 H POC Capillary Glucose 208 H 228 H Calcium 7.2 L Total Bilirubin 0.6 AST 28 ALT 36 H Alkaline Phosphatase 80 Total Protein 6.0 L Albumin 3.2 L Quality VTE Prophylaxis VTE prophylaxis: pharmacologic ordered (continue home eliquis)
[2024-03-12 07:43] LABS: Glucose Point of Care 111 mg/dl (65-105)
[2024-03-12] MEDS: amLODIPine BESYLATE 10 MG TABLET PO (09:18)
[2024-03-12] MEDS: hydroCHLOROthiazide 12.5 MG CAPSULE PO (09:18)
[2024-03-12] MEDS: FUROSEMIDE 40 MG TABLET PO (09:18)
[2024-03-12] MEDS: ASPIRIN 81 MG ENTERIC TABLET PO (09:18)
[2024-03-12] MEDS: ATORVASTATIN 40 MG TABLET PO (09:19)
[2024-03-12] MEDS: INSULIN ASPART (*BKC) 100 UNITS/ML 6 UNITS SUB-Q ×3 (09:19→16:51)
[2024-03-12] MEDS: APIXABAN 5 MG TABLET PO ×2 (09:19→16:50)
[2024-03-12] MEDS: carvediloL 25 MG TABLET PO ×2 (09:19→16:50)
[2024-03-12 12:39] LABS: Homocysteine 19.7 umol/L (<10.4)
[2024-03-12 12:56] LABS: Glucose Point of Care 253 mg/dl (65-105)
[2024-03-12] MEDS: INSULIN ASPART (*BKC) 100 UNITS/ML SUB-Q ×2 (13:20→16:51)
--- NOTE | 2024-03-12 13:46 | PCSTNOTE ---
Please refer to the Modified Barium Swallow Evaluation in the EMR. The above pleasant and cooperative pt was seen for a modified barium swallow. She was alert & able to follow simple commands. She is currently on a regular diet and denies dysphagia despite excessive coughing. The cough is dry and occurs even without the presence of eating &/or drinking. Oral mucosa is normal; natural dentition is in good condition; Vocal quality is clear. The patient was seated for a lateral view and presented with 5cc of thin liquid barium via spoon, pudding consistency barium via a spoon, cracker coated with barium pudding via spoon, and uncontrolled thin liquid barium. This was presented via a cup & straw. Oral preparatory and oral phase symptoms: none. Pharyngeal phase symptoms: none. Esophageal stage symptoms: none. No aspiration occurred. Impressions: Normal swallow Ability No further ST is warranted at this time
[2024-03-12 16:46] LABS: Glucose Point of Care 251 mg/dl (65-105)
--- NOTE | 2024-03-12 18:24 | P.PNCROSS_ITS ---
Event Note Event Note Event Note: I was called by the nurse around 6.15 pm to report that the patient had more fl accid paralysis of the right arm and legs; upon evaluating the patient along with her , who said that this morning, the patient had not been able to move her right hand. The nursing team confirms the patient was not able to move her right arm, but mostly from yesterday, and before that, she was able to. A patient recently had a stroke with residual right-sided weakness, which she continued to improve. Also, she was increased from Eliquis 2.5mg PO BID to 5 mg PO BID. I believe her right-side weakness is deteriorating. I ordered a CT brain to r/o any hemorrhagic conversion. I ordered a Neuro check for 4 hours.
[2024-03-12] MEDS: DEXTROMETHORPHAN POLISTIREX 60 MG/10 ML SYRINGE PO (18:55)
[2024-03-12] MEDS: INSULIN GLARGINE (*BKC) 100 UNITS/ML 56 UNITS SUB-Q (21:01)
[2024-03-12] MEDS: MIRTAZAPINE 7.5 MG TABLET PO (21:01)
[2024-03-12 21:11] LABS: Glucose Point of Care 265 mg/dl (65-105)
[2024-03-13] VITALS (18 sets, daily range): BP systolic 116–130; BP diastolic 58–76; PULSE 70–888; RESP 14–20; TEMP 36.5–36.7; O2SAT 92–95
[2024-03-13] MEDS: IPRATROPIUM 0.5 MG/ALBUTEROL SULFATE 2.5 MG AMPUL.NEB 3 ML INHALATION ×4 (01:59→20:32)
[2024-03-13] MEDS: methylPREDNISolone SOD SUCC 125 MG VIAL 60 MG IV PUSH ×2 (05:15→17:48)
[2024-03-13 07:06] LABS: Basophils Percent Auto 0.2 % (0.2-1.2); Eosinophils Percent Auto 0.2 % (0-4.4); Hematocrit 48.9 % (37.0-47.0); Hemoglobin 15.9 g/dL (12.0-15.0); Immature Granulocyte Absolute 0.09 K/mm3 (0.00-0.031); Immature Granulocyte Percent A 0.8 % (0-0.5); Lymphocytes Absolute Auto 1.17 K/mm3 (0.9-3.2); Lymphocytes Percent Auto 10.5 % (18.3-44.2); Mean Corpuscular HGB Conc 32.5 g/dl (32-36); Mean Corpuscular Hemoglobin 27.4 pg (26-34); Mean Corpuscular Volume 84.2 fl (80-100); Mean Platelet Volume 11.5 fl (7.4-10.4); Monocytes Absolute Auto 0.4 K/mm3 (0.1-0.6); Monocytes Percent Auto 3.3 % (2.6-8.5); Neutrophils Absolute Auto 9.4 K/mm3 (1.3-6.7); Platelet Count Result 234 k/mm3 (150-375); Red Blood Count 5.81 M/mm3 (4.2-5.4); Red Cell Distribution Width 13.1 % (11.5-14.5); White Blood Count 11.1 K/mm3 (4.5-10.0)
--- NOTE | 2024-03-13 07:17 | P.PNIM_ITS ---
Progress Note: A&P Assessment and Plan (1) Fall: Code(s): W19.XXXA - Unspecified fall, initial encounter Status: Acute Assessment and Plan: Overnight covering provider received a phone call that patient developed worsening flaccid paralysis of the right arm and leg. Patient has had waxing physical exam since stroke. Repeat CT head showed no change from prior CT. Patient then had a fall. Patient was being transitioned from chair to bed and was slowly lowered to the ground. - Head CT: No acute intracranial hemorrhage or suspicious mass effect. Findings consistent with patient's known bilateral cerebral infarctions. - C spine CT: Severe degenerative disease, without acute fracture. Diffuse ground glass opacification within the right apex. - Thoracic/lumbar CT: Indeterminate lucency within the vertebral body of T1, to the right of midline which may be artifactual in origin. Clinical correlation is needed regarding point tenderness, which if present, MRI is recommended. Severe degenerative disease, without additional abnormality within the remaining vertebral bodies of the spine. - Pelvis CT: No acute fractures. Diverticulosis. - Lumbar MRI: No abnormal lytic lesion of bone. Severe lumbar spondylosis. (2) Stroke: Code(s): I63.9 - Cerebral infarction, unspecified Status: Acute Assessment and Plan: 03/09: Call received by patients RN that patient developed right side weakness and the inability to move her right arm and right leg when working with PT. Reported to patients room at that time. Vitals were stable. Blood pressure was slightly elevated in the 150s systolic. Patient remained AOx3. Cranial nerves II-XII intact. Sensation intact throughout. Unable to raise her right arm, has weak right hand squeeze compared to the left. Unable to move her right leg. Code stroke called. Spoke with Cardiology Dr. Mcintyre in terms of patients eliquis dosing. Per [facility] records patient was on eliquis 2.5 mg BID for prior stroke with a likely embolic etiology. Dr. Mcintyre agreed with increasing the dose to the therapeutic 5 mg BID as patient has a normal BMI and kidney function. Patient is already on ASA 81 mg daily. Increased eliquis 2.5 mg BID to 5 mg BID. Changed pravastatin 40 mg daily to high intensity atorvastatin 40 mg daily. No history of Afib, on eliquis for prior stroke. Follows Dr. [facility] at [facility]. Lipid panel: cholesterol 163, LDL 105, HDL 30, triglycerides 138 Echo 65-70% LVEF with grade I diastolic dysfunction No known history of afib per chart review and , she remains on tele CT head: 1. 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 2. Stable moderate nonspecific cerebral white matter disease, which likely represents chronic small vessel ischemic disease. CTA head/neck: 1. 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 2. Moderate nonspecific cerebral white matter disease, which likely represents chronic small vessel ischemic disease. 3.. Severe stenosis of the bilateral P1 posterior cerebral arteries. Moderate stenosis of intracranial right internal carotid artery and bilateral middle cerebral artery segments. 4. 0% stenosis of the proximal right internal carotid artery relative to normal distal artery lumen diameter (NASCET criteria). 5. 42% stenosis of the proximal left internal carotid artery relative to normal distal artery lumen diameter. MRI: 1. Acute infarct in the left parietal lobe. 2. 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 3. Moderate nonspecific cerebral white matter disease, which likely represents chronic small vessel ischemic disease. Monitor CBC, CMP, magnesium, troponin, and lipid profile Monitor blood pressure, allow for permissive hypertension. Will treat hypertension if systolic is greater than 2800 and/or diastolic greater than 100 PT/OT recommending SNF placement Neurology consulted, appreciate recommendations MRI shows several small areas suggestive of possible showering of emboli. History of a mitral valve surgery she is on low-dose Eliquis we may wish to discuss this further with the airframe and power plant mechanic regarding the dose adjustment. For nonhemorrhagic stroke it is important to not allow hypotension at least for the 1st 48 hours. Echocardiogram was performed. Appears to be in sinus rhythm. Consider prolonged monitoring to see if she has atrial fibrillation which could have caused above shower of emboli although artery to artery emboli can also occur. Overall cardiac source remains suspect and should be investigated. Speech therapy eval, recommending MBS. Normal MBS. 03/11: Patient is now out of permissive hypertension window. Patient was previously on losartan, however possible that this is related to patients losartan, changed to amlodipine 10 mg daily and HCTZ 12.5 mg daily. Continue to monitor BP. 03/12: Patients exam has improved. She is now able to move her right upper and lower extremity against gravity. Blood pressures remain stable on current antihypertensives. 03/13: Patient has flaccid paralysis on the right. Call made to Dr. Vale to update on worsening exam. No interventions required at this time. Continue to monitor blood pressures and ensure she does not become hypotensive. (3) Bronchospasm: Code(s): J98.01 - Acute bronchospasm Status: Acute Assessment and Plan: Patient notes improvement to her dry wheezing cough. - Viral panel negative - Chest XR unremarkable - Delsym for cough suppression - Solumedrol 60 mg IV BID for bronchospasms - Speech therapy consulted - Possible that this is related to patients losartan, changed to amlodipine 10 mg daily and HCTZ 12.5 mg daily - Possible vocal cord issue however patients voice is clear - Monitor (4) Hypertension: Code(s): I10 - Essential (primary) hypertension Status: Acute Assessment and Plan: Patient reports blood pressures in the 200s systolic at home, blood pressure was noted to be 209/75 on arrival to the Ed - Troponin negative x2 - BNP 1170 - Chest XR: No focal infiltrate or effusion. - Echo: LVEF 65-70% with grade I diastolic dysfunction - Since admission blood pressures have been maintaining in the 150 range - home medications: carvedilol 25 mg BID, lasix 40 mg daily - discontinued losartan 100 mg daily as possible cause of patients cough, started amlodipine 10 mg and HCTZ 12.5 mg daily - Blood pressures remain stable, continue to monitor blood pressures (5) Diabetes mellitus: Qualifiers: Diabetes mellitus complication status: without complication Diabetes mellitus residential insulin use: without military science teacher use Diabetes mellitus type: type 2 Qualified Code(s): E11.9 - Type 2 diabetes mellitus without complications Code(s): E11.9 - Type 2 diabetes mellitus without complications Status: Chronic Assessment and Plan: - hypoglycemia protocol - POC blood glucose ACHS - home medication - tresiba 62 units subq daily , metformin 500 mg BID - 03/10: patient continued to require 4-5 units sliding scale with meals on the 3 units TIDWM scheduled - correct regimen ordered - lantus 56 units, 6 units TIDWM and mod dose SSI TIDWM - A1C 9.3 on 02/21/24 (6) History of stroke: Code(s): Z86.73 - Personal history of transient ischemic attack (TIA), and cerebral infarction without residual deficits Status: Acute Assessment and Plan: Stoke history with residual short term memory deficits and intermittent difficulty with word finding. - ASA 81 mg daily - Eliquis 2.5 mg BID increased to 5 mg BID - pravastatin 40 mg daily changed to atorvastatin 40 mg daily Time Spent With Patient Time with patient: 25 - 35 minutes Subjective Date/time seen: 03/13/24 07:17 Interval history: 83 year old female with past medical history of stroke (short term memory deficits and intermittent difficulty with word finding), hypertension, hyperlipidemia, diastolic heart failure, and diabetes presents to the hospital for hypertension with systolics in the 200s. Patient is pleasant lying comfortably in bed with at bedside. She has no complaints denies chest pain, shortness a breath, palpitations, nausea/vomiting, and abdominal pain. On exam she is now unable to move her right side against gravity. Cranial nerves remain intact. Overnight covering provider received a phone call that patient developed worsening flaccid paralysis of the right arm and leg. Patient has had waxing physical exam since stroke. Repeat CT head showed no change from prior CT. Patient then had a fall. Patient was being transitioned from chair to bed and was slowly lowered to the ground. Imaging thus far has been negative for acute injury. Call made to Dr. Vale to update on worsening exam. No interventions required at this time. Continue to monitor blood pressures and ensure she does not become hypotensive. Review of Systems Review of Systems: All systems reviewed & are unremarkable except as noted in HPI and below Exam Narrative: AF HR 88 RR 20 SpO2 94 BP 130/76 General: female in no acute respiratory distress who is nontoxic appearing, sitting up in chair. HEENT: Normocephalic. Atraumatic. Extraocular movement intact. Sclera clear and anicteric. No facial asymmetry. Chest: Lungs are clear to auscultation bilaterally. No wheezes or crackles. Improved dry cough. CV: Heart was regular rate and rhythm. S1-S2. No murmurs, gallops, or rubs. Abd: Abdomen was soft. Nontender. Nondistended. Positive bowel sounds. No organomegaly or masses. Ext: No clubbing, cyanosis, or edema. 2+ DP pulses bilaterally. Neuro: Patient is alert and oriented x3. Cranial nerves are intact. Speech is clear. 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 Unable to move her right lower extremity against gravity or perform plantar/dorsal flexion. Patient is pleasant and cooperative. Objective Data Vital Signs Vital Signs: Vital Signs - 24 hr 03/12/24 08:00 03/12/24 08:00 03/12/24 08:43 Temperature Pulse Rate 84 84 Respiratory Rate 16 Blood Pressure Pulse Oximetry 90 90 Oxygen Delivery Room Air Room Air Fraction of Inspired Oxygen 21 21 03/12/24 08:43 03/12/24 08:59 03/12/24 09:19 Temperature Pulse Rate 66 65 84 Respiratory Rate 16 16 Blood Pressure Pulse Oximetry Oxygen Delivery Fraction of Inspired Oxygen 03/12/24 12:00 03/12/24 14:00 03/12/24 14:08 Temperature 97.9 F Pulse Rate 70 72 Respiratory Rate 20 Blood Pressure 131/61 Pulse Oximetry 92 94 Oxygen Delivery Room Air Fraction of Inspired Oxygen 21 03/12/24 14:08 03/12/24 14:18 03/12/24 16:00 Temperature Pulse Rate 65 71 76 Respiratory Rate 20 20 Blood Pressure Pulse Oximetry Oxygen Delivery Fraction of Inspired Oxygen 03/12/24 16:50 03/12/24 18:38 03/12/24 20:00 Temperature 98.0 F Pulse Rate 75 77 73 Respiratory Rate 15 Blood Pressure 125/62 Pulse Oximetry 96 Oxygen Delivery Room Air Fraction of Inspired Oxygen 03/12/24 20:16 03/12/24 20:21 03/12/24 21:01 Temperature Pulse Rate 75 70 Respiratory Rate 22 H 22 H Blood Pressure Pulse Oximetry 95 Oxygen Delivery Room Air Fraction of Inspired Oxygen 03/12/24 22:00 03/13/24 00:00 03/13/24 02:00 Temperature 97.3 F L Pulse Rate 73 73 76 Respiratory Rate 20 18 Blood Pressure 137/66 Pulse Oximetry 95 Oxygen Delivery Fraction of Inspired Oxygen 03/13/24 02:05 03/13/24 04:00 03/13/24 06:00 Temperature 98.0 F Pulse Rate 78 71 71 Respiratory Rate 18 18 Blood Pressure 130/76 Pulse Oximetry 92 Oxygen Delivery Fraction of Inspired Oxygen Intake/Output Intake/Output: Intake & Output 03/10/24 03/11/24 03/12/24 03/13/24 23:59 23:59 23:59 23:59 Intake Total 1360 1530 2120 0 Output Total 1800 3850 2350 Balance -440 -2320 -230 0 Meds/Results Medications: Active Medications Generic Name Dose Route Start Last Admin Trade Name Chavezq PRN Reason Stop Dose Admin Albuterol/Ipratropium 3 ml 03/07/24 08:00 03/13/24 01:59 Ipratropium 0.5 Mg/Albuterol Sulfate 2.5 Mg Ampul.Neb 3 Ml INHALATION 3 ml Q6HRT DAVID Administration Albuterol/Ipratropium 3 ml 03/09/24 05:15 03/09/24 05:30 Ipratropium 0.5 Mg/Albuterol Sulfate 2.5 Mg Ampul.Neb 3 Ml INHALATION 3 ml Q6HRT PRN Administration wheezing Amlodipine Besylate 10 mg 03/11/24 14:20 03/12/24 09:18 Amlodipine Besylate 10 Mg Tablet PO 10 mg DAILY DAVID Administration Apixaban 5 mg 03/09/24 17:00 03/12/24 16:50 Apixaban 5 Mg Tablet PO 5 mg BID DAVID Administration Aspirin 81 mg 03/08/24 09:00 03/12/24 09:18 Aspirin 81 Mg Enteric Tablet PO 81 mg DAILY DAVID Administration Atorvastatin Calcium 40 mg 03/09/24 09:00 03/12/24 09:19 Atorvastatin 40 Mg Tablet PO 40 mg DAILY DAVID Administration Benzocaine 1 lozenge 03/09/24 15:43 Benzocaine/Menthol (*Bkc) 18 Ea Lozenge PO PRN PRN Sore Throat Carvedilol 25 mg 03/07/24 17:00 03/12/24 16:50 Carvedilol 25 Mg Tablet PO 25 mg BID DAVID Administration Dextromethorphan Polistirix 60 mg 03/09/24 15:07 03/12/24 18:55 Dextromethorphan Polistirex 60 Mg/10 Ml Syringe PO 60 mg Q12H PRN Administration Cough Dextrose 12.5 gm 03/07/24 14:25 Dextrose 50% 25 Gm/50 Ml Syringe IV PUSH PRN PRN Hypoglycemia Protocol Furosemide 40 mg 03/07/24 14:25 03/12/24 09:18 Furosemide 40 Mg Tablet PO 40 mg DAILY DAVID Administration Glucagon 1 mg 03/07/24 14:25 Glucagon For Inj 1 Mg Vial IM PRN PRN Hypoglycemia Protocol Glucose 15 gm 03/07/24 14:25 Glucose Oral Gel 15 Gm Of Glucse In 37.5 Gm Tube PO PRN PRN Hypoglycemia Protocol Hydrochlorothiazide 12.5 mg 03/11/24 14:20 03/12/24 09:18 Hydrochlorothiazide 12.5 Mg Capsule PO 12.5 mg QAM DAVID Administration Dextrose 1,000 mls @ 100 mls/hr 03/07/24 14:25 Dextrose 5% 1,000 Ml IVPB PRN PRN Hypoglycemia Protocol Insulin Aspart 2 - 5 units 03/07/24 17:00 03/12/24 16:51 Insulin Aspart (*Bkc) 100 Units/Ml SUB-Q 3 units TIDWM DAVID Administration Protocol Insulin Aspart 6 units 03/10/24 17:00 03/12/24 16:51 Insulin Aspart (*Bkc) 100 Units/Ml SUB-Q 6 units TIDWM DAVID Administration Insulin Glargine 56 units 03/08/24 21:00 03/12/24 21:01 Insulin Glargine (*Bkc) 100 Units/Ml SUB-Q 56 units HS DAVID Administration Methylprednisolone Sodium Succinate 60 mg 03/09/24 18:00 03/13/24 05:15 Methylprednisolone Sod Succ 125 Mg Vial IV PUSH 60 mg Q12H DAVID Administration Mirtazapine 7.5 mg 03/07/24 21:00 03/12/24 21:01 Mirtazapine 7.5 Mg Tablet PO 7.5 mg HS DAVID Administration Radiology Results: ITS Impressions Chest X-Ray 03/06/24 23:08 IMPRESSION: No focal infiltrate or effusion. Head/Neck CTA 03/08/24 14:32 IMPRESSION: 1. 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 2. Moderate nonspecific cerebral white matter disease, which likely represents chronic small vessel ischemic disease. 3. Severe stenosis of the bilateral P1 posterior cerebral arteries. Moderate stenosis of intracranial right internal carotid artery and bilateral middle cerebral artery segments. 4. 0% stenosis of the proximal right internal carotid artery relative to normal distal artery lumen diameter (NASCET criteria). 5. 42% stenosis of the proximal left internal carotid artery relative to normal distal artery lumen diameter. Brain MRI 03/08/24 16:06 IMPRESSION: 1. Acute infarct in the left parietal lobe. 2. 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 3. Moderate nonspecific cerebral white matter disease, which likely represents chronic small vessel ischemic disease. Modified Barium Swallow 03/12/24 12:03 IMPRESSION: 1. Normal modified barium swallow. 2. Please refer to the speech therapy report for recommendations. Head CT 03/12/24 19:55 Impression: No acute intracranial hemorrhage or suspicious mass effect. Findings consistent with patient's known bilateral cerebral infarctions, as detailed above. Cervical Spine CT 03/12/24 20:17 Impression: Severe degenerative disease, without acute fracture. Diffuse groundglass opacification within the right apex. Thoracic/Lumbar Spine CT 03/12/24 20:21 Impression: Indeterminate lucency within the vertebral body of T1, to the right of midline which may be artifactual in origin. Clinical correlation is needed regarding point tenderness, which if present, MRI is recommended. Severe degenerative disease, without additional abnormality within the remaining vertebral bodies of the spine. Pelvis CT 03/12/24 20:39 IMPRESSION: No acute fractures. Diverticulosis. Labs Labs: Laboratory Results - last 24 hr 03/08/24 03/12/24 03/12/24 08:51 07:40 11:21 WBC RBC Hgb Hct MCV MCH MCHC RDW Plt Count MPV Immature Gran % (Auto) Neut % (Auto) Lymph % (Auto) Mcleod % (Auto) Eos % (Auto) Baso % (Auto) Lymph # (Auto) Mcleod # (Auto) Eos # (Auto) Baso # (Auto) Abs Immat Gran (auto) Absolute Neuts (auto) Absolute Nucleated RBC Nucleated RBC % POC Capillary Glucose 111 H 253 H Homocysteine 19.7 H 03/12/24 03/12/24 03/13/24 16:43 20:43 06:33 WBC 11.1 H RBC 5.81 H Hgb 15.9 H Hct 48.9 H MCV 84.2 MCH 27.4 MCHC 32.5 RDW 13.1 Plt Count 234 MPV 11.5 H Immature Gran % (Auto) 0.8 H Neut % (Auto) 85.0 H Lymph % (Auto) 10.5 L Mcleod % (Auto) 3.3 Eos % (Auto) 0.2 Baso % (Auto) 0.2 Lymph # (Auto) 1.17 Mcleod # (Auto) 0.4 Eos # (Auto) 0.0 Baso # (Auto) 0.0 Abs Immat Gran (auto) 0.09 H Absolute Neuts (auto) 9.4 H Absolute Nucleated RBC 0.000 Nucleated RBC % 0.0 POC Capillary Glucose 251 H 265 H Homocysteine Quality VTE Prophylaxis VTE prophylaxis: pharmacologic ordered (continue home eliquis)
[2024-03-13 07:36] LABS: Alanine Aminotransferase 43 U/L (6-35); Albumin Level 3.1 g/dL (3.5-5.1); Alkaline Phosphatase 84 U/L (38-126); Anion Gap 9 mmol/L (4-12); Aspartate Amino Transferase 29 U/L (14-36); Bilirubin,Total 0.6 mg/dL (0.2-1.3); Blood Urea Nitrogen 40 mg/dL (7-17); Carbon Dioxide 27 mmol/L (22-30); Chloride 102 mmol/L (98-107); Estimated CRCL calculation 32 ml/min; Estimated Glomerular Filt Rate 53; Glucose 113 mg/dL (65-110); Potassium 3.2 mmol/L (3.4-5.0); Sodium 138 mmol/L (137-145)
[2024-03-13 08:06] LABS: Glucose Point of Care 109 mg/dl (65-105)
[2024-03-13] MEDS: INSULIN ASPART (*BKC) 100 UNITS/ML 6 UNITS SUB-Q ×3 (09:59→17:49)
[2024-03-13] MEDS: POTASSIUM CHLORIDE 20 MEQ ER TABLET 40 MEQ PO (10:00)
[2024-03-13] MEDS: hydroCHLOROthiazide 12.5 MG CAPSULE PO (10:04)
[2024-03-13] MEDS: ASPIRIN 81 MG ENTERIC TABLET PO (10:04)
[2024-03-13] MEDS: FUROSEMIDE 40 MG TABLET PO (10:04)
[2024-03-13] MEDS: ATORVASTATIN 40 MG TABLET PO (10:04)
[2024-03-13] MEDS: carvediloL 25 MG TABLET PO ×2 (10:05→17:48)
[2024-03-13] MEDS: APIXABAN 5 MG TABLET PO ×2 (10:06→17:48)
[2024-03-13] MEDS: amLODIPine BESYLATE 10 MG TABLET PO (10:06)
[2024-03-13] MEDS: INSULIN ASPART (*BKC) 100 UNITS/ML SUB-Q ×2 (13:20→17:49)
[2024-03-13 13:25] LABS: Glucose Point of Care 268 mg/dl (65-105)
[2024-03-13 16:49] LABS: Glucose Point of Care 283 mg/dl (65-105)
[2024-03-13 20:20] LABS: Glucose Point of Care 247 mg/dl (65-105)
[2024-03-13] MEDS: INSULIN GLARGINE (*BKC) 100 UNITS/ML 56 UNITS SUB-Q (20:57)
[2024-03-13] MEDS: MIRTAZAPINE 7.5 MG TABLET PO (20:57)
--- OUTSIDE RECORDS SUMMARY | 2024-03-13 23:56 | XMS_ITS | Encounter Summary ---
Author Organization [employer] Address [address] [place] [address] Care Team Providers Care Pot Lining Supervisor Name Role Phone Unavailable Primary Care Provider [...]
--- OUTSIDE RECORDS SUMMARY | 2024-03-13 23:56 | XMS_ITS | Clinical Summary ---
Author Organization [employer] [facility] Address [address] Attn: Epic Prelude ADT KRYSTA SWAIN [address] Care Team Providers Care Five Roll Refiner Batch Mixer Name Role Phone Unavailable Primary Care [...]
--- OUTSIDE RECORDS SUMMARY | 2024-03-13 23:57 | XMS_ITS | Encounter Summary ---
Author Organization [facility] Address [address] [place] [address] Care Team Providers Care Uranium Processing Supervisor Name Role Phone Paulette Geller MD Unavailable + Mehul Verdugo MD Primary Care Provider [phone] Reason for Visit * Reason Onset Date Comments Hyperglycemia 03/07/2023 Encounter Details Date Type Department Care Team (Late st Contact Info) Description 03/07/2023 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 I explained that she most likely will need more adjusting. KNIFE FOXING CUTTER * Telephone Encounter - Mehul Verdugo MD - 03/07/2023 1:53 PM CST Yes please KNIFE FOXING CUTTER * Telephone Encounter - Silvana Fisher RN - 03/07/2023 1:[address] Wade her A1c was 12.2% end of January, down from 15% a few months ago. Do you want to increase herTresiba to 35? KNIFE FOXING CUTTER * Telephone Encounter - Mehul Verdugo MD - 03/07/2023 10:54 AM CST Jacquie can you please call? KNIFE FOXING CUTTER * Telephone Encounter - No Franz - 03/07/2023 10:34 AM HOT KNIFE FOXING CUTTER Patient's daughter calling in on patient's blood sugar. Every morning she waking up patient's BS isover 300. She is currently on Tresiba 30 units every morning. Patient's BS is always above 200, daughter said. KNIFE FOXING CUTTER documented in this encounter Plan of Treatment Not on file documented as of this encounter Visit Diagnoses Not on filedocumented in this encounter Care Teams Uranium Processing Supervisor Relationship Specialty Start Date End Date Mehul Verdugo MD [address] [facility] [address] [place] [address] PCP - General Internal Medicine 09/10/21 Paulette Geller MD [address] [place] [address] Consulting Physician Gastroenterology 05/22/21 documented as of this encounter
--- OUTSIDE RECORDS SUMMARY | 2024-03-13 23:57 | XMS_ITS | Encounter Summary ---
Author Organization [facility] Address [address] [place] [address] Phone Care Team Providers Care Bender Helper Name Role Phone Paulette Geller MD Unavailable + Mehul Verdugo MD Primary Care Provider [phone] Encounter Details Date Type Department Care Team (Latest Contact Info) Description 02/21/2024 Orders Only [facility] Mendy Torres, RN [address] [facility] 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 Gender Identity Female 06/15/2023 1:45 PM CDT Sexual Orientation Straight 06/15/2023 1: 45 PM CDT documented as of this encounter Plan of Treatment Not on file documented as of this encounter Procedures Procedure Name Priority Date/Time Associated Diagnosis Comments SCAN - LABS 02/21/2024 documented in this encounter Results * SCAN - LABS (02/21/2024) Mendy Torres RN Edite d Result - Final documented in this encounter Visit Diagnoses Not on filedocumented in this encounter Care Teams Bender Helper Relationship Specialty Start Date End Date Mehul Verdugo MD [address] [facility] [address] [place] [address] PCP - General Internal Medicine 09/10/21 Paulette Geller MD [address] [place] [address] Consulting Physician Gastroenterology 05/22/21 documented as of this encounter
--- OUTSIDE RECORDS SUMMARY | 2024-03-13 23:57 | XMS_ITS | Encounter Summary ---
Author Organization [facility] Healthcare Address [address] [place] [address] Care Team Providers Care Satellite Installation Technician Name Role Phone Paulette Geller MD Unavailable + Mehul Verdugo MD Primary Care Provider [phone] Reason for Visit * Auth/Cert (Routine) Specialty Diagnoses / Procedures Referred By Cata t Referred To Contact Referral ID Status Reason Start Date Expiration Date Visits Re quested Visits Authorized [id number] 1 60 Encounter Details Date Type Department Care Team (Late st Contact Info) Description 02/05/2023 8:30 AM FLOOR COVERINGS SALESPERSON Home Care Visit [facility] [address] [address] [address] [place] [address] Bradley Mota RN SN OASIS DISCHARGE Social [...] on file Legal Sex Female 11:30 PM FLOOR COVERINGS SALESPERSON Gender Identity Female 06/15/2023 1:45 PM CDT Sexual Orientation Straight 06/15/2023 1: 45 PM CDT documented as of this encounter Last Filed Vital Signs Vital Sign Reading Time Taken Comments Blood Pressure 122/68 02/05/2023 11:22 AM FLOOR COVERINGS SALESPERSON Pulse 68 02/05/2023 11:22 AM FLOOR COVERINGS SALESPERSON Temperature 36.7 ??C (98 ??F) 02/05/2023 11:22 AM FLOOR COVERINGS SALESPERSON Respiratory Rate 18 02/05/2023 11:22 AM FLOOR COVERINGS SALESPERSON Oxygen Saturation 98% 02/05/2023 11:22 AM FLOOR COVERINGS SALESPERSON Inhaled Oxygen Concentration - - Weight - - Height - - Body Mass Index - - documented in this encounter Miscellaneous Notes * Home Health Visit Narrative - Bradley Mota RN - 02/05/2023 11:36 AM FLOOR COVERINGS SALESPERSON Assessed patient. Vitals all wnl. Caregivers and [...] call Dr. Verdugo's office with any concerns. R COVERINGS SALESPERSON documented in this encounter Plan of Treatment Not on file documented as of this encounter Visit Diagnoses Not on filedocumented in this encounter Home Health Visit - Care Plan Visit Details Visit Type -SN OASIS Dischar ge Discipline -Senior Care Problems Problem Description Start Date Status Goals Interve ntions Homebound Status Disciplines: Skilled Disciplines Patient's homebound status 12/15/2022 Active 1 goal linked to scheduled/documen soraida intervention 1 goal intervention scheduled/documen soraida in this visit Monitor patient's vital signs every home health visit Disciplines: SN, PT, OT, FITTING ROOM OPERATOR, RAT CULTURIST, Skilled Disciplines Monitor patient's vital signs every [...] visit during episode of care Description: Home tassel maker to measure vital signs during every home [...] Completed documented in this encounter Care Teams Satellite Installation Technician Relationship Specialty Start Date End Date Mehul Verdugo MD [address] [facility] [address] [place] [address] PCP - General Internal Medicine 09/10/21 Paulette Geller MD [address] [place] [address] Consulting Physician Gastroenterology 05/22/21 documented as of this encounter
--- OUTSIDE RECORDS SUMMARY | 2024-03-13 23:57 | XMS_ITS | Encounter Summary ---
Author Organization [facility] Address [address] [place] [address] Care Team Providers Care Management Lead Name Role Phone Paulette Geller MD Unavailable + Mehul Verdugo MD Primary Care Provider Reason for Visit * Reason Comments Diabetes Hypertension Hyperlipidemia Encounter Details Date Type Department Care Team (Late st Contact Info) Description 12/01/2023 1:45 PM CDT Office Visit [facility] [address] [facility] [address] [place] [id number] Mehul Verdugo MD [address] [facility] [address] [place] [address] Type 2 diabetes mellitus without [...] on file Legal Sex Female 11:30 PM 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 Will increase insulin to 52 units. Orders: - POCT hemoglobin A1c Dyslipidemia (E78.5) Comments: Doing well. HTN (hypertension), benign (I10) Comments: BP at target. Pulmonary hypertension ([facility]) ([facility]) (I27.20) Comments: Stable. No signs or symptoms [...] complication, with long-term current use of insulin ([facility]) ([facility]) documented in this encounter Results * (ABNORMAL) POCT hemoglobin A1c (12/01/2023 1:49 PM CDT) Hemoglobin A1C, POC 9.1 4.0 - 5.6 % Blood 12/01/2023 1:49 PM CDT Mehul Verdugo MD POINT OF CARE TEST ORDERABLES Final Result documented in this encounter Visit Diagnoses Diagnosis Type 2 diabetes mellitus without complication, with long-term current use of insulin (CMS/HCC) ([facility])- Primary Dyslipidemia Other and unspecified hyperlipidemia HTN (hypertension), benign Essential hypertension, benign Pulmonary hypertension (CMS/HCC) ([facility]) Other chronic pulmonary heart diseases Memory loss [...] documented as of this encounter Care Teams Management Lead Relationship Specialty Start Date End Date Mehul Verdugo MD [address] [facility] [address] [place] [address] PCP - General Internal Medicine 09/10/21 Paulette Geller MD [facility] [address] [place] [address] Consulting Physician Gastroenterology 05/22/21 documented as of this encounter
--- OUTSIDE RECORDS SUMMARY | 2024-03-13 23:57 | XMS_ITS | Encounter Summary ---
Author Organization [facility] Address [address] [place] [address] Phone Care Team Providers Care Residential Collections Name Role Phone Paulette Geller MD Unavailable + Mehul Verdugo MD Primary Care Provider [phone] Encounter Details Date Type Department Care Team (Late st Contact Info) Description 02/02/2023 Telephone [facility] Cardiology [address] [facility] 8th [place] [address] [place] [address] Sp Madrid MD [address] [facility] [address] [place] [address] Social History Tobacco Use Types [...] on file Legal Sex Female 11:30 PM HOSIERY MENDER Gender Identity Female 06/15/2023 1:45 PM CDT [...] Belkis Markham RN - 02/02/2023 1:41 PM HOSIERY MENDER Spoke to pharmacy re: Furosemide prescription, clarified order to reflect Take 1 tablet by mouth (20 mg) one day and then2 tablets by mouth (40 mg) alternating. No further questions. ERY MENDER * Telephone Encounter - Osiris Mercer - 02/02/2023 1:14 PM CST [facility] calling to speak with a nurse in regards to clarifying the directions on the Furosemide prescription that they were sent. ERY MENDER documented in this encounter Plan of Treatment [...] documented as of this encounter Care Teams Residential Collections Relationship Specialty Start Date End Date Mehul Verdugo MD [address] [facility] [address] [place] [address] PCP - General Internal Medicine 09/10/21 Paulette Geller MD [address] [facility] [address] [place] [address] Consulting Physician Gastroenterology 05/22/21 documented as of this encounter
--- OUTSIDE RECORDS SUMMARY | 2024-03-13 23:57 | XMS_ITS | Encounter Summary ---
Author Organization [facility] Address [address] [place] [address] Care Team Providers Care Paraffin Plant Operator Name Role Phone Paulette Geller MD Unavailable + Mehul Verdugo MD Primary Care Provider [phone] Reason for Visit * Reason Onset Date Comments dexcom 04/14/2023 Encounter Details Date Type Department Care Team (Late st Contact Info) Description 04/14/2023 [facility] [address] [facility] [address] [place] [id number] Mehul Verdugo MD [address] [facility] [address] [place] [address] dexcom Social History Tobacco Use [...] on file Legal Sex Female 11:30 PM STEMMER MACHINE Gender Identity Female 06/15/2023 1:45 PM CDT Sexual Orientation Straight 06/15/2023 1: 45 PM CDT documented as of this encounter Miscellaneous Notes * Telephone Encounter - Silvana Fisher RN - 04/15/2023 8:[address] Verdugo increase Tresiba to 30 qd to call in 1 wk for review of download. I had to lvm on daughters phone. MER MACHINE * Telephone Encounter - Silvana Fisher RN - 04/14/2023 1:51 PM CST See download and copy on dr Verdugo desk for review. MER MACHINE * Telephone Encounter - No Franz - 04/14/2023 1:38 PM STEMMER MACHINE Azul, patient's daughter, calling to let you know she has sent the link to review patient's Dexcom.Pt currently on 25 units of Tresiba. MER MACHINE documented in this encounter Plan of Treatment Not on file documented as of this encounter Visit Diagnoses Not on filedocumented in this encounter Care Teams Paraffin Plant Operator Relationship Specialty Start Date End Date Mehul Verdugo MD [address] [place] [address] PCP - General Internal Medicine 09/10/21 Paulette Geller MD [address] [place] [address] Consulting Physician Gastroenterology 05/22/21 documented as of this encounter
--- OUTSIDE RECORDS SUMMARY | 2024-03-13 23:57 | XMS_ITS | Encounter Summary ---
Author Organization [facility] Healthcare Address [address] [place] [address] Care Team Providers Care Zipper Repairer Name Role Phone Paulette Geller MD Unavailable + Mehul Verdugo MD Primary Care Provider [phone] Reason for Visit * Auth/Cert (Routine) Specialty Diagnoses / Procedures Referred By Cata t Referred To Contact Referral ID Status Reason Start Date Expiration Date Visits Re quested Visits Authorized [id number] 1 60 Encounter Details Date Type Department Care Team (Late st Contact Info) Description 02/02/2023 10:00 AM WEB PRODUCER Home Care Visit [facility] [address] [address] [address] [place] [address] Emi Walton LPN SN HOME VISIT Social [...] on file Legal Sex Female 11:30 PM WEB PRODUCER Gender Identity Female 06/15/2023 1:45 PM CDT Sexual Orientation Straight 06/15/2023 1: 45 PM CDT documented as of this encounter Last Filed Vital Signs Vital Sign Reading Time Taken Comments Blood Pressure 138/84 02/02/2023 11:22 AM WEB PRODUCER Pulse 71 02/02/2023 11:22 AM WEB PRODUCER Temperature 36.4 ??C (97.5 ??F) 02/02/2023 11:[address] Respiratory Rate 18 02/02/2023 11:22 AM WEB PRODUCER Oxygen Saturation 98% 02/02/2023 11:22 AM WEB PRODUCER Inhaled Oxygen Concentration - - Weight - - Height - - Body Mass Index - - documented in this encounter Miscellaneous Notes * Home Health Plan for Next Visit - Emi Walton LPN - 02/02/2023 10:35 AM CST Plan for next visit dm education bs monitoring medication education PRODUCER documented in this encounter Plan of Treatment [...] home health visit Disciplines: SN, PT, OT, JOURNEYMAN POWERHOUSE OPERATOR, LAPEL STITCHER, Skilled Disciplines Monitor patient's vital signs every [...] visit during episode of care Description: Home broom stitcher to measure vital signs during every home [...] Scheduled documented in this encounter Care Teams Zipper Repairer Relationship Specialty Start Date End Date Mehul Verdugo MD [address] [facility] [address] [place] [address] PCP - General Internal Medicine 09/10/21 Paulette Geller MD [address] [place] [address] Consulting Physician Gastroenterology 05/22/21 documented as of this encounter
--- OUTSIDE RECORDS SUMMARY | 2024-03-13 23:57 | XMS_ITS | Encounter Summary ---
Author Organization [facility] Address [address] [place] [address] Care Team Providers Care Assembler Steam And Gas Turbine Name Role Phone Paulette Geller MD Unavailable + Mehul Verdugo MD Primary Care Provider [phone] Encounter Details Date Type Department Care Team (Late st Contact Info) Description 06/10/2023 [facility] [address] [facility] [address] [place] [facility] [place] [address] Nella Markham, [place] [address] [place] [address] Social History Tobacco Use Types Packs/Day Years [...] on file Legal Sex Female 11:30 PM MAIL READER Gender Identity Female 06/15/2023 1:45 PM CDT [...] on filedocumented in this encounter Care Teams Assembler Steam And Gas Turbine Relationship Specialty Start Date End Date Mehul Verdugo MD [address] [facility] [address] [place] [address] PCP - General Internal Medicine 09/10/21 Paulette Geller MD [address] [place] [address] Consulting Physician Gastroenterology 05/22/21 documented as of this encounter
--- OUTSIDE RECORDS SUMMARY | 2024-03-13 23:57 | XMS_ITS | Encounter Summary ---
Author Organization [facility] Address [address] [place] [address] Care Team Providers Care Software Product Manager Name Role Phone Paulette Geller MD Unavailable + Mehul Verdugo MD Primary Care Provider [phone] Reason for Visit * Reason Onset Date Comments Hyperglycemia 01/28/2023 Encounter Details Date Type Department Care Team (Late st Contact Info) Description 01/28/2023 [facility] [address] [facility] [address] [place] [address] Mehul Verdugo MD [address] [facility] [address] [place] [address] Hyperglycemia Social History Tobacco Use [...] file Legal Sex Female 11:30 PM MAIL SORTER Gender Identity Female 06/15/2023 1:45 PM CDT Sexual Orientation Straight 06/15/2023 1: 45 PM CDT documented as of this encounter Miscellaneous Notes * Telephone Encounter - Silvana Fisher RN - 01/28/2023 1:14 PM CST I spoke to nurse she will convey the dose change for tresiba to 24 qd and communicate next week. SORTER * Telephone Encounter - Mehul Verdugo MD - 01/28/2023 12:17 PM CST Hi Jacquie, Let increase her tresiba. 20->24 units daily SORTER * Telephone Encounter - No Franz - 01/28/2023 12:12 PM MAIL SORTER Bradley with [facility] homecare calling she was with patient and [...] still just not back to 100% CB [phone] SORTER documented in this encounter Plan of Treatment Not on file documented as of this encounter Visit Diagnoses Not on filedocumented in this encounter Care Teams Software Product Manager Relationship Specialty Start Date End Date Mehul Verdugo MD [address] [facility] [address] [place] [address] PCP - General Internal Medicine 09/10/21 Paulette Geller MD [address] [facility] [address] [place] [address] Consulting Physician Gastroenterology 05/22/21 documented as of this encounter
--- OUTSIDE RECORDS SUMMARY | 2024-03-13 23:57 | XMS_ITS | Encounter Summary ---
Author Organization [facility] Healthcare Address [address] [place] [address] Care Team Providers Care Rate Setter Name Role Phone Paulette Geller MD Unavailable + Mehul Verdugo MD Primary Care Provider [phone] Reason for Visit * Auth/Cert (Routine) Specialty Diagnoses / Procedures Referred By Cata t Referred To Contact Referral ID Status Reason Start Date Expiration Date Visits Re quested Visits Authorized [id number] 1 60 Encounter Details Date Type Department Care Team (Late st Contact Info) Description 01/28/2023 10:00 AM MANAGER EXCHANGE Home Care Visit [facility] [address] [address] [address] [place] [address] Bradley Mota, EDD SN HOME VISIT Social [...] file Legal Sex Female 11:30 PM MANAGER EXCHANGE Gender Identity Female 06/15/2023 1:45 PM CDT Sexual Orientation Straight 06/15/2023 1: 45 PM CDT documented as of this encounter Miscellaneous Notes * Home Health Visit Narrative - Bradley Mota RN - 01/28/2023 12:10 PM MANAGER EXCHANGE Assessed patient. Educated on s/s of infection, fall prevention, and who to call in the event of decline in health or emergency. Patient's BG [address] Zacarias armas and they advised patient/caregiver to increase tresiba to 24 units. Caregiver stated understanding. GER EXCHANGE documented in this encounter Plan of Treatment Not on file documented as of this encounter Visit Diagnoses Not on filedocumented in this encounter Home Health Visit - Care Plan Visit Details Visit Type -SN Home Visit Discipline -Detention Problems Problem Description Start Date Status Goals Interve ntions Homebound Status Disciplines: Skilled Disciplines Patient's homebound status 12/15/2022 Active 1 goal linked to scheduled/documen soraida intervention 1 goal intervention scheduled/documen soraida in this visit Monitor patient's vital signs every home health visit Disciplines: SN, PT, OT, REFERRAL AGENT, WEB DESIGN SPECIALIST, Skilled Disciplines Monitor patient's vital signs every [...] this visit Disease Management - Diabetes Disciplines: Detention Management of diabetes symptoms 12/15/2022 Active 1 goal linked to scheduled/documen soraida intervention 3 goal interventions scheduled/documen soraida in this visit Learning/Teachin g Needs - Diabetes Disciplines: Detention Learning and teaching needs associated with diagnosis [...] visit during episode of care Description: Home racecar driver to measure vital signs during every home [...] Completed documented in this encounter Care Teams Rate Setter Relationship Specialty Start Date End Date Mehul Verdugo MD [address] [facility] [address] [place] [address] PCP - General Internal Medicine 09/10/21 Paulette Geller MD [address] [facility] [address] [place] [address] Consulting Physician Gastroenterology 05/22/21 documented as of this encounter
--- OUTSIDE RECORDS SUMMARY | 2024-03-13 23:57 | XMS_ITS | Encounter Summary ---
Author Organization [facility] Address [address] [place] [address] Care Team Providers Care Key Holder Name Role Phone Paulette Geller MD Unavailable + Mehul Verdugo MD Primary Care Provider [phone] Encounter Details Date Type Department Care Team (Late st Contact Info) Description 09/13/2023 [facility] [address] [facility] [address] [place] [address] Nella Markham, [place] [address] [place] [address] Social History Tobacco Use Types Packs/Day Years [...] file Legal Sex Female 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
--- OUTSIDE RECORDS SUMMARY | 2024-03-13 23:57 | XMS_ITS | Encounter Summary ---
Author Organization [facility] Address [address] [place] [address] Care Team Providers Care Rn Hemodialysis Charge Name Role Phone Paulette Geller MD Unavailable + Mehul Verdugo MD Primary Care Provider [phone] Encounter Details Date Type Department Care Team (Late st Contact Info) Description 01/27/2023 [facility] [address] [facility] [address] [place] [address] Mehul Verdugo MD [address] [facility] [address] [place] [address] Social History Tobacco Use Types [...] file Legal Sex Female 11:30 PM SEED CORN MANAGER PRODUCTION Gender Identity Female 06/15/2023 1:45 PM CDT Sexual Orientation Straight 06/15/2023 1: 45 PM CDT documented as of this encounter Miscellaneous Notes * Telephone Encounter - No Franz - 01/27/2023 1:36 PM SEED CORN MANAGER PRODUCTION Bradley with [facility] home health requested additional orders for nursing to see patient one time this week and two times next week. Bradley aware this was approved. Bradley's CB number [phone] CORN MANAGER PRODUCTION documented in this encounter Plan of Treatment Not on file documented as of this encounter Visit Diagnoses Not on filedocumented in this encounter Care Teams Rn Hemodialysis Charge Relationship Specialty Start Date End Date Mehul Verdugo MD [address] [facility] [address] [place] [address] PCP - General Internal Medicine 09/10/21 Pauletet Geller MD [address] [place] [address] Consulting Physician Gastroenterology 05/22/21 documented as of this encounter
--- OUTSIDE RECORDS SUMMARY | 2024-03-13 23:57 | XMS_ITS | Encounter Summary ---
Author Organization [facility] Healthcare Address [address] [place] [address] Care Team Providers Care Calciminer Name Role Phone Paulette Geller MD Unavailable + Mehul Verdugo MD Primary Care Provider [phone] Encounter Details Date Type Department Care Team (Late st Contact Info) Description 02/23/2023 9:50 AM LINOLEUM TILE LAYER Lab [address] [place] [address] Type 2 diabetes mellitus without [...] on file Legal Sex Female 11:30 PM LINOLEUM TILE LAYER Gender Identity Female 06/15/2023 1:45 PM CDT Sexual Orientation Straight 06/15/2023 1: 45 PM CDT documented as of this encounter Plan of Treatment Not on file documented as of this encounter Procedures Procedure Name Priority Date/Time Associated Diagnosis Comments EGFR Routine 02/23/2023 9:53 AM LINOLEUM TILE LAYER Chronic diastolic heart failure (HCC) Type 2 diabetes mellitus without complication, with long-term current use of insulin (CMS/HCC) (HCC) DIFFERENTIAL AUTO Routine 02/23/2023 9:5 3 AM LINOLEUM TILE LAYER Chronic diastolic heart failure (HCC) CRITICAL RESULT CALLBACK CHEMISTRY Routine 02/23/2023 9:53 AM LINOLEUM TILE LAYER Chronic diastolic heart failure (HCC) Type 2 diabetes mellitus without complication, with long-term current use of insulin (CMS/HCC) (HCC) CBC WITH AUTO DIFFERENTIAL Routine 02/23/2023 9:53 AM LINOLEUM TILE LAYER Chronic diastolic heart failure (HCC) PHOSPHORUS Routine 02/23/2023 9:53 AM LINOLEUM TILE LAYER Type 2 diabetes mellitus without complication, with long-term current use of insulin (CMS/HCC) (HCC) MAGNESIUM Routine 02/23/2023 9:53 AM LINOLEUM TILE LAYER Type 2 diabetes mellitus without complication, with long-term current use of insulin (CMS/HCC) (HCC) HEMOGLOBIN A1C Routine 02/23/2023 9:53 AM LINOLEUM TILE LAYER Type 2 diabetes mellitus without complication, with long-term current use of insulin (CMS/HCC) (HCC) LIPID PANEL Routine 02/23/2023 9:53 AM LINOLEUM TILE LAYER Dyslipidemia COMPREHENSIVE METABOLIC PANEL Routine 02/23/2023 9:53 AM LINOLEUM TILE LAYER Chronic diastolic heart failure (HCC) Type 2 diabetes mellitus without complication, with long-term current use of insulin (CMS/HCC) (HCC) documented in this encounter Results * Critical Result Callback Chemistry (02/23/2023 9:53 AM LINOLEUM TILE LAYER) Date Notified [id number] SHANTELL DAVIS Time Notified 1223 SHANTELL DAVIS TestName Glucose SHANTELL SPAULDING Called/Read Back Paris Vasquez Credentials RN SHANTELL DAVIS Called By SALVADOR SPAULDING Blood 02/23/2023 9:53 AM LINOLEUM TILE LAYER 02/23/2023 11:45 AM LINOLEUM TILE LAYER us Notinfile Unknown LAB BLOOD ORDERABLES Final Res ult SHANTELL DAVIS One [facility] [place] [address] * (ABNORMAL) eGFR (02/23/2023 9:53 AM LINOLEUM TILE LAYER) eGFR 56(L) >=60 mL/min/1. 73 m2 SHANTELL [...] last reviewed 2020. Blood 02/23/2023 9:53 AM LINOLEUM TILE LAYER 02/23/2023 11:45 AM LINOLEUM TILE LAYER us Notinfile Unknown LAB BLOOD ORDERABLES Final Res ult [facility] One [facility] [place] [address] * Differential, auto (02/23/2023 9:53 AM LINOLEUM TILE LAYER) Neutrophil abs 3.6 1.5 - 6.5 K/cumm [facility] Imm gran abs 0.0 0.0 - 0.1 K/cumm [facility] Lymphocyte abs 1.9 0.8 - 3.3 K/cumm [facility] Monocyte abs 0.4 0.2 - 0.8 K/cumm [facility] Eosinophil abs 0.1 0.0 - 0.5 K/cumm [facility] Basophil abs 0.1 0.0 - 0.1 K[facility]umm [facility] Neutrophil pct 59.6 % [facility] Comment: Interpretive Data Percent cell count reference ranges are not reported, since discordance with absolute values may lead to misinterpretation of CBC data. Current Interpretive Data was last revised on 2017. Imm gran pct 0.3 % [facility] Comment: Interpretive Data Percent cell count reference ranges are not reported, since discordance with absolute values may lead to misinterpretation of CBC data. Current Interpretive Data was last revised on 2017. Lymphocyte pct 30.7 % [facility] Comment: Interpretive Data Percent cell count reference ranges are not reported, since discordance with absolute values may lead to misinterpretation of CBC data. Current Interpretive Data was last revised on 2017. Monocyte pct 6.9 % [facility] Comment: Interpretive Data Percent cell [...] revised on 2017. Blood 02/23/2023 9:53 AM LINOLEUM TILE LAYER 02/23/2023 11:39 AM LINOLEUM TILE LAYER us Notinfile Unknown LAB BLOOD ORDERABLES Final Res ult SHANTELL DAVIS One [facility] Department [place] [address] * (ABNORMAL) Lipid panel (02/23/2023 9:53 AM LINOLEUM TILE LAYER) Cholesterol 159 30 - 199 mg/dL SHANTELL [...] revised on 2017. HDL 29(L) >=40 mg/dL [facility] Comment: Interpretive Data Ages < or = [...] 2017. LDL, calculated 66 <=129 mg/dL SHANTELL [facility] Comment: Interpretive Data Ages < or = [...] revised on 2017. Non-HDL Cholesterol 130 mg/dL [facility] Comment: Interpretive Data Ages < [...] last revised on 2017. Chol/HDL ratio 5 [facility] Blood 02/23/2023 9:53 AM LINOLEUM TILE LAYER 02/23/2023 11:37 AM LINOLEUM TILE LAYER Emi Celaya DE[employer]MENT [employer] LAB BLOOD ORDERABLES Final Re sult [facility] One [facility] Department [place] [address] * (ABNORMAL) Comprehensive metabolic panel (02/23/2023 9:53 AM LINOLEUM TILE LAYER) Sodium 138 135 - 145 mmol/L [facility] Potassium, pl 4.2 3.3 - 4.9 mmol/L [facility] Chloride 103 97 - 110 mmol/L [facility] CO2 26 22 - 32 mmol/L [facility] Anion gap 9 2 - 15 mmol/L [facility] BUN 19 6 - 25 mg/dL [facility] Creatinine 0.99 0.60 - 1.10 mg/dL [facility] Glucose 467(C) 70 - 199 mg/dL [facility] Comment: Interpretive Data Fasting glucose [...] 2022. Calcium 8.6 8.5 - 10.3 mg/dL [facility] Bilirubin, total 0.3 0.1 - 1.2 mg/dL [facility] Protein, pl 6.9 6.5 - 8.5 g/dL [facility] Albumin 3.8 3.5 - 5.0 g/dL [facility] Alk phos 67 40 - 130 Units/L [facility] ALT 14 7 - 45 Units/L [facility] AST 19 10 - 45 Units/L [facility] Blood 02/23/2023 9:53 AM LINOLEUM TILE LAYER 02/23/2023 11:38 AM LINOLEUM TILE LAYER Emi Celaya [employer] LAB BLOOD ORDERABLES Final Re sult [facility] One [facility] Department [place] [address] * (ABNORMAL) Hemoglobin A1c (02/23/2023 9:53 AM LINOLEUM TILE LAYER) Hgb A1C 12.2(H) 4.0 - 5.6 % [facility] Estimated Average Glucose 303 mg/dL [facility] Comment: The ADA recommends reporting an estimated Average Glucose (eAG) with all Hemoglobin A1c results using the equation derived from a study of 507 normal and diabetic adults. ??Minority populations were underrepresented and children were not included. ?? (Diabetes Care 2020; 43(S1): S66-S76). ??The eAG is not equivalent to a fasting glucose. Blood 02/23/2023 9:53 AM LINOLEUM TILE LAYER 02/23/2023 11:39 AM LINOLEUM TILE LAYER Emi Celaya [employer] LAB BLOOD ORDERABLES Final Re sult [facility] [place] [employer] [place] [address] * (ABNORMAL) CBC with auto differential (02/23/2023 9:53 AM LINOLEUM TILE LAYER) WBC 6.1 3.8 - 9.9 K/cumm [facility] Hgb 14.3 11.9 - 15.5 g/dL [facility] Hct 44.7 35.6 - 45.5 % [facility] Plt 169 150 - 400 K/cumm [facility] MPV 12.3 9.1 - 12.3 fL [facility] RBC 5.30(H) 3.90 - 5.20 M/cumm [facility] MCV 84.3 81.3 - 96.4 fL [facility] MCH 27.0(L) 27.1 - 33.3 pg [facility] MCHC 32.0(L) 32.3 - 35.7 g/dL [facility] RDW CV 12.4 11.1 - 14.9 % [facility] RDW SD 37.7 35.7 - 48.1 fL [facility] NRBC abs 0.00 0.00 - 0.01 K/cumm [facility] Blood 02/23/2023 9:53 AM LINOLEUM TILE LAYER 02/23/2023 11:39 AM LINOLEUM TILE LAYER Emi Celaya [employer] LAB BLOOD ORDERABLES Final Re sult [facility] [place] [place] [address] * Magnesium (02/23/2023 9:53 AM LINOLEUM TILE LAYER) Magnesium 2.0 1.4 - 2.5 mg/dL [facility] Blood 02/23/2023 9:53 AM LINOLEUM TILE LAYER 02/23/2023 11:38 AM LINOLEUM TILE LAYER Emi Celaya [employer] LAB BLOOD ORDERABLES Final Re sult Performing Organization Address City/[facility]/ZIP Co de Phone Number [facility] Department [place] [address] * Phosphorus (02/23/2023 9:53 AM LINOLEUM TILE LAYER) Phosphorus, pl 2.6 2.3 - 4.5 mg/dL [facility] Blood 02/23/2023 9:53 AM LINOLEUM TILE LAYER 02/23/2023 11:38 AM LINOLEUM TILE LAYER Result [facility] Emi Celaya DE[employer] LAB BLOOD ORDERABLES Final Re sult Performing Organization Address [facility] Co de Phone Number [facility] [place] [address] documented in this encounter Visit Diagnoses Diagnosis Type 2 diabetes mellitus without complication, with long-term current use of insulin (CMS/HCC) (HCC) Chronic diastolic heart failure (HCC) Chronic diastolic heart failure Dyslipidemia Other and unspecified hyperlipidemia documented in this encounter Care Teams Calciminer Relationship Specialty Start Date End Date Mehul Verdugo MD [address] [facility] [address] [place] [address] PCP - General Internal Medicine 09/10/21 Paulette Geller MD [address] [place] [address] Consulting Physician Gastroenterology 05/22/21 documented as of this encounter
--- OUTSIDE RECORDS SUMMARY | 2024-03-13 23:57 | XMS_ITS | Encounter Summary ---
Author Organization [facility] Address [address] [place] [address] Care Team Providers Care Roll Finisher Name Role Phone Paulette Geller MD Unavailable + Mehul Verdugo MD Primary Care Provider Encounter Details Date Type Department Care Team (Late st Contact Info) Description 03/17/2023 [facility] [address] [facility] [address] [place] [phone] Mehul Verdugo MD [address] [facility] [address] [place] [address] Social History Tobacco Use Types [...] on file Legal Sex Female 11:30 PM PRECISION LENS GENERATOR Gender Identity Female 06/15/2023 1:45 PM CDT Sexual Orientation Straight 06/15/2023 1: 45 PM CDT documented as of this encounter Miscellaneous Notes * Telephone Encounter - Silvana Fisher RN - 03/18/2023 12:09 PM CST She has not been wearing the Dexcom because they do not have sensors. Her daughter said she called Maycol Fisher at [facility] but he never called her back. I called Maycol and fixed the issue. [facility] was trying to talk to someone before they shipped but not one ever returned the call. He is calling [employer] after I finish and they will ship her sensors. I instructed Azul on downloading on her laptop and sent invitefor Dexcom Clarity. She is to download her mom's reader next week. She is increasing dose of Tresiba ISION LENS GENERATOR * Telephone Encounter - Michell Morris NP - 03/18/2023 10:08 AM PRECISION LENS GENERATOR I helped put a G7 on her when Dr. Wade saw her. Unfortunately she uses a reader so not able to upload Let's increase to 40 units over the weekend and see if daughter can come later next week with you (me if you think as well) (let's avoid Tuesday given possible weather) to hopefully get uploaded and adjustments made ISION LENS GENERATOR * Telephone Encounter - Rosie Martinez MA - 03/18/2023 8:57 AM CST LAST UPLOAD IS FROM DECEMBER ISION LENS GENERATOR * Telephone Encounter - Michell Morris NP - 03/18/2023 8:50 AM PRECISION LENS GENERATOR Can we pull her Dexcom please ISION LENS GENERATOR * Telephone Encounter - Melanie Wilkes MA - 03/17/2023 2:59 PM CST Pt daughter calling pt morning fasting bs are in the 300's Taking tresiba 35 units It has not improved from last increase recently ISION LENS GENERATOR documented in this encounter Plan of Treatment Not on file documented as of this encounter Visit Diagnoses Not on filedocumented in this encounter Care Teams Roll Finisher Relationship Specialty Start Date End Date Mehul Verdugo MD [address] [facility] [address] [place] [address] PCP - General Internal Medicine 09/10/21 Paulette Geller MD [address] [place] [address] Consulting Physician Gastroenterology 05/22/21 documented as of this encounter
--- OUTSIDE RECORDS SUMMARY | 2024-03-13 23:57 | XMS_ITS | Encounter Summary ---
Author Organization [facility] Address [address] [place] [address] Phone Care Team Providers Care Customer Project Manager Name Role Phone Paulette Geller MD Unavailable + Mehul Verdugo MD Primary Care Provider [phone] Encounter Details Date Type Department Care Team (Late st Contact Info) Description 02/09/2024 1:15 PM KNIFE FINISHER Office Visit [facility] Cardiology [address] [facility] [address] [place] [address] Sp Madrid MD [address] [facility] [address] [place] [address] Dyslipidemia (Primary Dx) Social History Tobacco Use [...] on file Legal Sex Female 11:30 PM KNIFE FINISHER Gender Identity Female 06/15/2023 1:45 PM CDT Sexual Orientation Straight 06/15/2023 1: 45 PM CDT documented as of this encounter Last Filed Vital Signs Vital Sign Reading Time Taken Comments Blood Pressure 148/70 02/09/2024 1:04 PM KNIFE FINISHER Pulse 80 02/09/2024 1:04 PM KNIFE FINISHER Temperature 36.7 ??C (98 ??F) 02/09/2024 1:04 PM KNIFE FINISHER Respiratory Rate - - Oxygen Saturation 96% 02/09/2024 1:04 PM KNIFE FINISHER Inhaled Oxygen Concentration - - Weight 68.9 kg (152 lb) 02/09/2024 1:04 PM KNIFE FINISHER Height 154.9 cm (5' 1 ) 02/09/2024 1:04 PM KNIFE FINISHER Body Mass Index 28.72 02/09/2024 1:04 PM KNIFE FINISHER documented in this encounter Patient Instructions * Patient Instructions* Danelle Campa CMA - 02/09/2024 1:15 PM KNIFE FINISHER Stop amlodipine Increase lasix to 40 mg a day in am , change it to every other day once leg swelling improves. Rtc 3 m BNP, BMP in next few days E FINISHER E FINISHER documented in this encounter Ordered Prescriptions Prescription [...] note were not included. 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 Sp Madrid M.D., F.Cathryn.Trinidad.Trinidad., M.B.A. gang investigator Cardiovascular Division [facility] Live [place] [address] This note contains information and findings from [...] concerns about verbage aboveplease contact me at [phone]. E FINISHER documented in this encounter Miscellaneous Notes * Addendum Note - Mendy Johns RN - 02/09/2024 1:15 PM CSTAddended by: MENDY JOHNS on: 02/23/2024 11:24 AM Modules accepted: Orders E FINISHER documented in this encounter Plan of Treatment [...] documented as of this encounter Care Teams Customer Project Manager Relationship Specialty Start Date End Date Mehul Verdugo MD [address] [facility] [address] [place] [address] PCP - General Internal Medicine 09/10/21 Paulette Geller MD [address] [place] [address] Consulting Physician Gastroenterology 05/22/21 documented as of this encounter
--- OUTSIDE RECORDS SUMMARY | 2024-03-13 23:57 | XMS_ITS | Encounter Summary ---
Author Organization [facility] Address [address] [place] [address] Care Team Providers Care Oncology Physician Name Role Phone Paulette Geller MD Unavailable + Mehul Verdugo MD Primary Care Provider [phone] Reason for Visit * Reason Onset Date Comments Blood Sugar Problem 02/14/2023 Encounter Details Date Type Department Care Team (Late st Contact Info) Description 02/14/2023 [facility] [address] [facility] [address] [place] [id number] Mehul Verdugo MD [address] [facility] [address] [place] [address] Blood Sugar Problem Social History [...] on file Legal Sex Female 11:30 PM UNCLAIMED PROPERTY MANAGER Gender Identity Female 06/15/2023 1:45 PM [...] - No Franz - 02/14/2023 12:49 PM UNCLAIMED PROPERTY MANAGER Pt's daughter notified and asked for new script be sent to pharmacy. Script updated and sent. AIMED PROPERTY MANAGER * Telephone Encounter - Mehul Verdugo MD - 02/14/2023 12:04 PM CST Inc to 26 units, please have us send us records going forward AIMED PROPERTY MANAGER * Telephone Encounter - No Franz - 02/14/2023 11:48 AM UNCLAIMED PROPERTY MANAGER Patient's daughter calling, said patient's morning BS has been running over 300 for a few weeks now. Pt currently on Tresiba 24 units. Wanting to know about adjusting this. AIMED PROPERTY MANAGER documented in this encounter Plan of [...] documented as of this encounter Care Teams Oncology Physician Relationship Specialty [place] [address] [place] [address] [address] [place] [address] PCP - General Internal Medicine 09/10/21 Paulette Geller MD [address] [place] [address] Consulting Physician Gastroenterology 05/22/21 documented as of this encounter
--- OUTSIDE RECORDS SUMMARY | 2024-03-13 23:57 | XMS_ITS | Encounter Summary ---
Author Organization [facility] Healthcare Address [address] [place] [address] Care Team Providers Care Staff Antisubmarine Officer Name Role Phone Paulette Geller MD Unavailable + Mehul Verdugo MD Primary Care Provider [phone] Reason for Visit * Auth/Cert (Routine) Specialty Diagnoses / Procedures Referred By Cata quintanilla Referred To Contact Referral ID Status Reason Start Date Expiration Date Visits Re quested Visits Authorized [id number] 1 60 Encounter Details Date Type Department Care Team (Late st Contact Info) Description 02/01/2023 Home Care Visit [facility] [address] [address] [place] [address] Yoana Julien, RN TELEPHONE ENCOUNTER [...] on file Legal Sex Female 11:30 PM SALES ASSISTANT ENTERTAINMENT AND MEDIA Gender Identity Female 06/15/2023 1:45 PM CDT Sexual Orientation Straight 06/15/2023 1: 45 PM CDT documented as of this encounter Plan of Treatment Not on file documented as of this encounter Visit Diagnoses Not on filedocumented in this encounter Care Teams Staff Antisubmarine Officer Relationship Specialty Start Date End Date Mehul Verdugo MD [address] [facility] [address] [place] [address] PCP - General Internal Medicine 09/10/21 Paulette Geller MD [address] [place] [address] Consulting Physician Gastroenterology 05/22/21 documented as of this encounter
--- OUTSIDE RECORDS SUMMARY | 2024-03-13 23:57 | XMS_ITS | Encounter Summary ---
Author Organization [facility] Address [address] [place] [address] Phone Care Team Providers Care Cost Accounting Clerk Name Role Phone Paulette Geller MD Unavailable + Mehul Verdugo MD Primary Care Provider [phone] Encounter Details Date Type Department Care Team (Late st Contact Info) Description 09/15/2023 Telephone [facility] Cardiology [address] [facility] 8th [place] [address] [place] [address] Sp Madrid MD [address] [facility] [address] [place] [address] Social History Tobacco Use Types [...] file Legal Sex Female 11:30 PM COMMUNICATIONS PLANNER Gender Identity Female 06/15/2023 1:45 PM CDT Sexual Orientation Straight 06/15/2023 1: 45 PM CDT documented as of this encounter Miscellaneous Notes * Telephone Encounter - Nathalie Butler - 09/15/2023 1:50 PM CDT Julius Patients spouse is calling to get a ROV with Dr. Madrid for the pt. documented in this encounter Plan of Treatment Not on file documented as of this encounter Visit Diagnoses Not on filedocumented in this encounter Care Teams Cost Accounting Clerk Relationship Specialty Start Date End Date Mehul Verdugo MD [address] [facility] [address] [place] [address] PCP - General Internal Medicine 09/10/21 Paulette Geller MD [address] [place] [address] Consulting Physician Gastroenterology 05/22/21 documented as of this encounter
--- OUTSIDE RECORDS SUMMARY | 2024-03-13 23:57 | XMS_ITS | Encounter Summary ---
Author Organization [facility] Address [address] [place] [address] Care Team Providers Care Associate Broker Name Role Phone Paultete Geller MD Unavailable + Mehul Verdugo MD Primary Care Provider [phone] Encounter Details Date Type Department Care Team (Late st Contact Info) Description 01/25/2023 [facility] [address] [facility] [address] [place] [address] Mehul Verdugo MD [address] [facility] [address] [place] [address] Social History Tobacco Use Types [...] on file Legal Sex Female 11:30 PM CLOTHES DRIER ASSEMBLER Gender Identity Female 06/15/2023 1:45 PM CDT Sexual Orientation Straight 06/15/2023 1: 45 PM CDT documented as of this encounter Miscellaneous Notes * Telephone Encounter - Silvana Fisher RN - 01/25/2023 3:35 PM CST I called N she will call pt and daughter and sent to ER HES DRIER ASSEMBLER * Telephone Encounter - Silvana Fisher RN - 01/25/2023 1:[address] Wade do you want me to call back and send to ER? HES DRIER ASSEMBLER * Telephone Encounter - Melanie Wilkes MA - 01/25/2023 1:28 PM CST is discharging patient today FYI Again her sugar is 418 and she has not eaten today. HES DRIER ASSEMBLER * Telephone Encounter - Mehul Verdugo MD - 01/25/2023 1:16 PM CST Daughter is aware, Jacquie has been working very hard to try and overcome these issues. HES DRIER ASSEMBLER * Telephone Encounter - Melanie Wilkes MA - 01/25/2023 1:11 PM CST [facility] calling and states there are some issues in the home is having memory issues and he is her metal bench patternmaker He doesn't know what a Dexcom is and nurse states her sugar has been in the 400's all morning She is on metformin and insulin Tresiba is refusing adoption social worker Nurse will be contacting daughter also Very concerning issues asking if she should go to ER [phone] Bradley HES DRIER ASSEMBLER documented in this encounter Plan of Treatment Not on file documented as of this encounter Procedures Procedure Name Priority Date/Time Associated Diagnosis Comments SCAN - LABS 01/25/2023 10:20 PM CLOTHES DRIER ASSEMBLER SCAN - LABS 01/25/2023 10:20 PM CLOTHES DRIER ASSEMBLER SCAN - LABS 01/25/2023 10:15 PM CLOTHES DRIER ASSEMBLER SCAN - LABS 01/25/2023 6:08 PM CLOTHES DRIER ASSEMBLER documented in this encounter Results * SCAN - LABS (01/25/2023 10:20 PM CLOTHES DRIER ASSEMBLER) us Mehul Verdugo MD Final Result * SCAN - LABS (01/25/2023 10:20 PM CLOTHES DRIER ASSEMBLER) us Mehul Verdugo MD Final Result * SCAN - LABS (01/25/2023 10:15 PM CLOTHES DRIER ASSEMBLER) us Mehul Verdugo MD Final Result * SCAN - LABS (01/25/2023 6:08 PM CLOTHES DRIER ASSEMBLER) us Mehul Verdugo MD Final Result documented in this encounter Visit Diagnoses Not on filedocumented in this encounter Care Teams Associate Broker Relationship Specialty Start Date End Date Mehul Verdugo MD [address] [facility] [address] [place] [address] PCP - General Internal Medicine 09/10/21 Paulette Geller MD [address] [place] [address] Consulting Physician Gastroenterology 05/22/21 documented as of this encounter
--- OUTSIDE RECORDS SUMMARY | 2024-03-13 23:57 | XMS_ITS | Encounter Summary ---
Author Organization [facility] Address [address] [place] [address] Care Team Providers Care Delivery Rn Name Role Phone Paulette Geller MD Unavailable + Mehul Verdugo MD Primary Care Provider [phone] Encounter Details Date Type Department Care Team (Late st Contact Info) Description 02/21/2024 [facility] [address] [facility] [address] [place] [address] Mehul Verdugo MD [address] [facility] [address] [place] [address] Social History Tobacco Use Types [...] on file Legal Sex Female 11:30 PM TICKET SORTER Gender Identity Female 06/15/2023 1:45 PM CDT Sexual Orientation Straight 06/15/2023 1: 45 PM CDT documented as of this encounter Plan of Treatment Not on file documented as of this encounter Procedures Procedure Name Priority Date/Time Associated Diagnosis Comments SCAN - LABS 02/21/2024 2:43 PM TICKET SORTER SCAN - LABS 02/21/2024 11:16 AM TICKET SORTER documented in this encounter Results * SCAN - LABS (02/21/2024 2:43 PM TICKET SORTER) us Mehul Verdugo MD Final Result * SCAN - LABS (02/21/2024 11:16 AM TICKET SORTER) us Mehul Verdugo MD Final Result documented in this encounter Visit Diagnoses Not on filedocumented in this encounter Care Teams Delivery Rn Relationship Specialty Start Date End Date Mehul Verdugo MD [address] [facility] [address] [place] [address] PCP - General Internal Medicine 09/10/21 Paulette Geller MD [address] [place] [address] Consulting Physician Gastroenterology 05/22/21 documented as of this encounter
--- OUTSIDE RECORDS SUMMARY | 2024-03-13 23:57 | XMS_ITS | Encounter Summary ---
Author Organization [facility] Address [address] [place] [address] Care Team Providers Care Fluorescent Lighting Model Maker Name Role Phone Paulette Geller MD Unavailable + Mehul Verdugo MD Primary Care Provider [phone] Reason for Visit * Reason Comments Diabetes Encounter Details Date Type Department Care Team (Late st Contact Info) Description 01/31/2023 12:30 PM INFECTIOUS DISEASE TECHNICIAN Office Visit [facility] [address] [facility] [address] [place] [address] Mehul Verdugo MD [address] [facility] [address] [place] [address] Type 2 diabetes mellitus without [...] on file Legal Sex Female 11:30 PM INFECTIOUS DISEASE TECHNICIAN Gender Identity Female 06/15/2023 1:45 PM CDT Sexual Orientation Straight 06/15/2023 1: 45 PM CDT documented as of this encounter Last Filed Vital Signs Vital Sign Reading Time Taken Comments Blood Pressure 130/78 01/31/2023 12:29 PM INFECTIOUS DISEASE TECHNICIAN Pulse 69 01/31/2023 12:29 PM INFECTIOUS DISEASE TECHNICIAN Temperature - - Respiratory Rate - - Oxygen Saturation - - Inhaled Oxygen Concentration - - Weight 64.4 kg (142 lb) 01/31/2023 12:29 PM INFECTIOUS DISEASE TECHNICIAN Height 154.9 cm (5' 1 ) 01/31/2023 12:29 PM INFECTIOUS DISEASE TECHNICIAN Body Mass Index 26.83 01/31/2023 12:29 PM INFECTIOUS DISEASE TECHNICIAN documented in this encounter Progress Notes [...] Free, Intramuscular 02/09/2019 Influenza, Unspecified 01/15/2015, 12/17/2020 [facility] SARS-CoV-2 Monovalent Vaccination (12+ Yrs) CHASE-READY TO [...] daily blood-glucose meter (True Metrix Glucose Meter) [facility] Use to test blood sugar once daily [...] mouth (40 mg) alternating. lancets 30 gauge [facility] One Touch Delica Lancets - Use to test blood sugar 2 times per day.Diag code 11.9 lancets 30 gauge [facility] Test sugars twice daily dx ell.9 accucheck [...] complication, with long-term current use of insulin ([facility]) ([facility]) (E11.9, Z79.4) (Primary) Comments: Michell Arturo was kind enough to see patient. Will have the patients daughter instructed in dexcom. Dyslipidemia (E78.5) Comments: stable HTN (hypertension), benign (I10) Comments: bp at target, Pulmonary hypertension ([facility]) ([facility]) (I27.20) Labs Lab Results Component Value Date [...] 05/09/2021 UROBILINOGEN <2.0 05/09/2021 Mehul Verdugo MD CTIOUS DISEASE TECHNICIAN documented in this encounter Plan of Treatment Not on file documented as of this encounter Visit Diagnoses Diagnosis Type 2 diabetes mellitus without complication, with long-term current use of insulin (CMS/HCC) (HCC)- Primary Dyslipidemia Other and unspecified hyperlipidemia HTN (hypertension), benign Essential hypertension, benign Pulmonary hypertension (CMS/HCC) (HCC) Other chronic pulmonary heart diseases documented in this encounter Care Teams Fluorescent Lighting Model Maker Relationship Specialty Start Date End Date Mehul Verdugo MD [address] [facility] [address] [place] [address] PCP - General Internal Medicine 09/10/21 Paulette Geller MD [address] [place] [address] Consulting Physician Gastroenterology 05/22/21 documented as of this encounter
--- OUTSIDE RECORDS SUMMARY | 2024-03-13 23:57 | XMS_ITS | Encounter Summary ---
Author Organization [facility] Address [address] [place] [address] Phone Care Team Providers Care Dope House Operator Helper Name Role Phone Paulette Geller MD Unavailable + Mehul Verdugo MD Primary Care Provider [phone] Reason for Visit * Reason Onset Date Comments Appointment 09/27/2023 Encounter Details Date Type Department Care Team (Late st Contact Info) Description 09/27/2023 Telephone [facility] Cardiology [address] [facility] [address] [place] [address] [place] [address] Sp Madrid MD [address] 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 Madrid. Please call daughter when scheduling. Azul [phone] documented in this encounter Plan of Treatment Not on file documented as of this encounter Visit Diagnoses Not on filedocumented in this encounter Care Teams Dope House Operator Helper Relationship Specialty Start Date End Date Mehul Verdugo MD [address] [facility] [address] [place] [address] PCP - General Internal Medicine 09/10/21 Paulette Geller MD [facility] [address] [place] [address] Consulting Physician Gastroenterology 05/22/21 documented as of this encounter
--- OUTSIDE RECORDS SUMMARY | 2024-03-13 23:57 | XMS_ITS | Encounter Summary ---
Author Organization [facility] Address [address] [place] [address] Phone Care Team Providers Care Quality Control Chemist Name Role Phone Paulette Geller MD Unavailable + Mehul Verdugo MD Primary Care Provider [phone] Encounter Details Date Type Department Care Team (Late st Contact Info) Description 09/15/2023 Orders Only [facility] Cardiology [address] [facility] [address] [place] [address] Sp Madrid MD [address] [facility] [address] [place] [address] Social History Tobacco Use Types Packs/Day Years [...] on file Legal Sex Female 11:30 PM INTERNAL 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
--- OUTSIDE RECORDS SUMMARY | 2024-03-13 23:57 | XMS_ITS | Encounter Summary ---
Author Organization [facility] Address [address] [place] [address] Phone Care Team Providers Care Small Appliance Assembly Supervisor Name Role Phone Paulette Geller MD Unavailable + Mehul Verdugo MD Primary Care Provider [phone] Reason for Referral * Cardiology (Routine) - Closed Specialty Diagnoses / Procedures Referred By Contac t Referred To Contact Diagnoses S/P mitral valve repair Chronic diastolic heart failure (HCC) Procedures Transthoracic Echo (TTE) Complete W Doppler/CF Karena Celaya NP Phone: tel: fax: [facility] (All Locations) Referral ID Status Reason Start Date Expiration Date Visits Re quested Visits Authorized [id number] Closed 10/10/2023 11/08/2024 1 1 Encounter Details Date Type Department Care Team (Late st Contact Info) Description 10/10/2023 11:30 AM CDT Office Visit [facility] Cardiology [address] [facility] [address] [place] [address] Karena Celaya NP [address] [facility] [address] [place] [address] S/P mitral valve repair (Primary Dx); Chronic [...] file Legal Sex Female 11:30 PM ACTUARIAL SCIENCE TEACHER Gender Identity Female 06/15/2023 1:45 PM [...] this encounter Progress Notes * Karena Celaya, BENEFITS SPECIALIST - 10/10/2023 11:30 AM CDT Patient Name: [...] daily blood-glucose meter (True Metrix Glucose Meter) [facility] Use to test blood sugar once daily [...] Sp Madrid MD MOST RECENT ISCHEMIC EVALUATION: [facility]: 2015 DIAGNOSTIC IMPRESSIONS: 1. Minimal coronary [...] W DOPPLER/CF WO CONTRAST (02/09/2024 1:45 PM ACTUARIAL SCIENCE TEACHER) LV EF 60 % CARDIOREPORT Anatomical Region Laterality Modality Ultrasound 02/09/2024 1:00 PM ACTUARIAL SCIENCE TEACHER Narrative 02/09/2024 9:30 PM ACTUARIAL SCIENCE TEACHER Patient name: Yuliana Johnson Date of test: 02/09/2024 Type of test: TTE w/Doppler Hospital #: [id number] Date of : 1940 (F) Electrical Appliance Servicer: Capri Prado RDCS Referring Physician: KARENA CELAYA MD Contrast Agent: Contrast Administered by: Supervised/Interpreted by: Sp Madrid MD Diagnosis: Location: [facility] Reason for test: S/P MV [id number] annuloplasty Physio II ring MV Structure: s/p [...] 2=Hypo 3=Akinetic 4=Dyskin./Aneurysm 0=Not visualized) Parasternal Long [place]:MAS=1 BAS=1 MIL=1 ESTUARDO=1 Parasternal Short [place]:MAS=1 MIS=1 NM=1 MIL=1 MAL=1 MA=1 Apical 4 [...] MD By signing this report, the attending chief jailer certifies that he or she has personally supervised and interpreted the echocardiogram and has reviewed and or edited and agrees with the written comments contained within the report. Procedure Sp Bernal, MD - 02/09/2024 Patient name: Yuliana Johnson Date of test: 02/09/2024 Type of test: TTE w/Doppler [facility] #: 0 Date of : 1940 (F) Electrical Appliance Servicer: Capri Prado [facility] Referring Physician: KARENA CELAYA MD Contrast Agent: Contrast Administered by: Supervised/Interpreted by: Sp Madrid MD Diagnosis: Location: [facility] Reason for test: S/P MV [id number] annuloplasty Physio II ring MV Structure: s/p [...] 2=Hypo 3=Akinetic 4=Dyskin./Aneurysm 0=Not visualized) Parasternal Long [place]:MAS=1 BAS=1 MIL=1 ESTUARDO=1 Parasternal Short [place]:MAS=1 MIS=1 NM=1 MIL=1 MAL=1 MA=1 Apical 4 [...] MD By signing this report, the attending chief jailer certifies that he or she has personally [...] documented as of this encounter Care Teams Small Appliance Assembly Supervisor Relationship Specialty Start Date End Date Mehul Verdugo MD [address] [facility] [address] [place] [address] PCP - General Internal Medicine 09/10/21 Paulette Geller MD [address] [place] [address] Consulting Physician Gastroenterology 05/22/21 documented as of this encounter
--- OUTSIDE RECORDS SUMMARY | 2024-03-13 23:57 | XMS_ITS | Encounter Summary ---
Author Organization [facility] Address [address] [place] [address] Phone Care Team Providers Care Sorter Pricer Name Role Phone Paulette Geller MD Unavailable + Mehul Verdugo MD Primary Care Provider Encounter Details Date Type Department Care Team (Late st Contact Info) Description 02/23/2023 9:00 AM TRAINS SERVICE CONDUCTOR Office Visit [facility] Cardiology [address] [facility] [address] [place] [address] Emi Celaya, PRASHANTH [address] [facility] [address] [place] [address] Dyslipidemia (Primary Dx); HTN (hypertension), benign; S/P [...] on file Legal Sex Female 11:30 PM TRAINS SERVICE CONDUCTOR Gender Identity Female 06/15/2023 1:45 PM CDT Sexual Orientation Straight 06/15/2023 1: 45 PM CDT documented as of this encounter Last Filed Vital Signs Vital Sign Reading Time Taken Comments Blood Pressure 165/82 02/23/2023 9:09 AM TRAINS SERVICE CONDUCTOR Pulse 76 02/23/2023 9:09 AM TRAINS SERVICE CONDUCTOR Temperature 36.4 ??C (97.6 ??F) 02/23/2023 9:09 AM CS T Respiratory Rate - - Oxygen Saturation 96% 02/23/2023 9:09 AM TRAINS SERVICE CONDUCTOR Inhaled Oxygen Concentration - - Weight 64.4 kg (142 lb) 02/23/2023 9:09 AM TRAINS SERVICE CONDUCTOR Height 154.9 cm (5' 1 ) 02/23/2023 9:09 AM TRAINS SERVICE CONDUCTOR Body Mass Index 26.83 02/23/2023 9:09 AM TRAINS SERVICE CONDUCTOR documented in this encounter Patient Instructions * Patient Instructions* Emi Celaya NP - 02/23/2023 9:00 AM TRAINS SERVICE CONDUCTOR Get blood work today NS SERVICE CONDUCTOR documented in this encounter Progress Notes * [...] and egg for breakfast, did not have Zander dinner, watching carbs mostly, insulin recently increased [...] daily blood-glucose meter (True Metrix Glucose Meter) [facility] Use to test blood sugar once daily [...] Sp Madrid MD MOST RECENT ISCHEMIC EVALUATION: [facility]: 2015 DIAGNOSTIC IMPRESSIONS: 1. Minimal coronary [...] complication, with long-term current use of insulin ([facility]) ([facility]) Recently got dexcom, reading high 300's and [...] (cerebral vascular accident) (HCC) Emi Celaya NP NS SERVICE CONDUCTOR documented in this encounter Plan of Treatment Not on file documented as of this encounter Results * (ABNORMAL) Lipid panel (02/23/2023 9:53 AM TRAINS SERVICE CONDUCTOR) Cholesterol 159 30 - 199 mg/dL [facility] [...] on 2017. HDL 29(L) >=40 mg/dL [facility] Comment: Interpretive Data Ages < [...] revised on 2017. Non-HDL Cholesterol 130 mg/dL [facility] Comment: Interpretive Data Ages < or [...] last revised on 2017. Chol/HDL ratio 5 [facility] Blood 02/23/2023 9:53 AM TRAINS SERVICE CONDUCTOR 02/23/2023 11:37 AM TRAINS SERVICE CONDUCTOR Emi Celaya REFRIGERATION PLANT CORK INSULATOR LAB BLOOD ORDERABLES Final Re sult Performing Organization Address [facility] de Phone Number [facility] Department [place] [address] * Phosphorus (02/23/2023 9:53 AM TRAINS SERVICE CONDUCTOR) Phosphorus, pl 2.6 2.3 - 4.5 mg/dL [facility] Blood 02/23/2023 9:53 AM TRAINS SERVICE CONDUCTOR 02/23/2023 11:38 AM TRAINS SERVICE CONDUCTOR Emi Celaya REFRIGERATION PLANT CORK INSULATOR LAB BLOOD ORDERABLES Final Re sult Performing Organization Address [facility] de Phone Number [facility] Department [place] [address] * Magnesium (02/23/2023 9:53 AM TRAINS SERVICE CONDUCTOR) Pathologist [facility] Magnesium 2.0 1.4 - 2.5 mg/dL [facility] Blood 02/23/2023 9:53 AM TRAINS SERVICE CONDUCTOR 02/23/2023 11:38 AM TRAINS SERVICE CONDUCTOR Emi Celaya REFRIGERATION PLANT CORK INSULATOR LAB BLOOD ORDERABLES Final Re sult Performing Organization Address City/[facility]/ZIP Co de Phone Number [facility] [place] [address] * (ABNORMAL) CBC with auto differential (02/23/2023 9:53 AM TRAINS SERVICE CONDUCTOR) [facility] WBC 6.1 3.8 - 9.9 K/cumm [facility] Hgb 14.3 11.9 - 15.5 g/dL [facility] Hct 44.7 35.6 - 45.5 % [facility] Plt 169 150 - 400 K/cumm [facility] MPV 12.3 9.1 - 12.3 fL [facility] RBC 5.30(H) 3.90 - 5.20 M/cumm [facility] MCV 84.3 81.3 - 96.4 fL [facility] MCH 27.0(L) 27.1 - 33.3 pg [facility] MCHC 32.0(L) 32.3 - 35.7 g/dL [facility] RDW CV 12.4 11.1 - 14.9 % [facility] RDW SD 37.7 35.7 - 48.1 fL [facility] NRBC abs 0.00 0.00 - 0.01 K/cumm [facility] Blood 02/23/2023 9:53 AM TRAINS SERVICE CONDUCTOR 02/23/2023 11:39 AM TRAINS SERVICE CONDUCTOR Emi Celaya REFRIGERATION PLANT CORK INSULATOR LAB BLOOD ORDERABLES Final Re sult Performing Organization Address City/[facility]/ZIP Co de Phone Number [facility] Department [place] [address] * (ABNORMAL) Hemoglobin A1c (02/23/2023 9:53 AM TRAINS SERVICE CONDUCTOR) Hgb A1C 12.2(H) 4.0 - 5.6 % [facility] Estimated Average Glucose 303 mg/dL [facility] Comment: The ADA recommends reporting an estimated Average Glucose (eAG) with all Hemoglobin A1c results using the equation derived from a study of 507 normal and diabetic adults. ??Minority populations were underrepresented and children were not included. ?? (Diabetes Care 2020; 43(S1): S66-S76). ??The eAG is not equivalent to a fasting glucose. Blood 02/23/2023 9:53 AM TRAINS SERVICE CONDUCTOR 02/23/2023 11:39 AM TRAINS SERVICE CONDUCTOR Emi Celaya REFRIGERATION PLANT CORK INSULATOR LAB BLOOD ORDERABLES Final Re sult [facility] Department [place] [address] * (ABNORMAL) Comprehensive metabolic panel (02/23/2023 9:53 AM TRAINS SERVICE CONDUCTOR) Sodium 138 135 - 145 mmol/L [facility] Potassium, pl 4.2 3.3 - 4.9 mmol/L [facility] Chloride 103 97 - 110 mmol/L [facility] CO2 26 22 - 32 mmol/L [facility] Anion gap 9 2 - 15 mmol/L [facility] BUN 19 6 - 25 mg/dL [facility] Creatinine 0.99 0.60 - 1.10 mg/dL [facility] Glucose 467(C) 70 - 199 mg/dL [facility] Comment: Interpretive Data Fasting glucose >/= [...] Calcium 8.6 8.5 - 10.3 mg/dL [facility] Bilirubin, total 0.3 0.1 - 1.2 mg/dL [facility] Protein, pl 6.9 6.5 - 8.5 g/dL [facility] Albumin 3.8 3.5 - 5.0 g/dL [facility] Alk phos 67 40 - 130 Units/L [facility] ALT 14 7 - 45 Units/L [facility] AST 19 10 - 45 Units/L [facility] Blood 02/23/2023 9:53 AM TRAINS SERVICE CONDUCTOR 02/23/2023 11:38 AM TRAINS SERVICE CONDUCTOR us Emi Celaya REFRIGERATION PLANT CORK INSULATOR LAB BLOOD ORDERABLES Final Re sult [facility] Department [place] [address] documented in this encounter Visit Diagnoses Diagnosis [...] nonrheumatic documented in this encounter Care Teams Sorter Pricer Relationship Specialty Start Date End Date Mehul Verdugo MD [address] [facility] [address] [place] [address] PCP - General Internal Medicine 09/10/21 Paulette Geller MD [address] [place] [address] Consulting Physician Gastroenterology 05/22/21 documented as of this encounter
--- OUTSIDE RECORDS SUMMARY | 2024-03-13 23:57 | XMS_ITS | Encounter Summary ---
Author Organization [facility] Healthcare Address [address] [place] [address] Care Team Providers Care Dye And Chemical Coordinator Name Role Phone Paulette Geller MD Unavailable + Mehul Verdugo MD Primary Care Provider [phone] Reason for Visit * Auth/Cert (Routine) Specialty Diagnoses / Procedures Referred By Cata t Referred To Contact Referral ID Status Reason Start Date Expiration Date Visits Re quested Visits Authorized [id number] 1 60 Encounter Details Date Type Department Care Team (Late st Contact Info) Description 01/25/2023 2:00 PM ASPHALT TAMPING MACHINE OPERATOR Home Care Visit [facility] [address] [address] [address] [place] [address] Bradley Mota, EDD SN HOME VISIT Social [...] on file Legal Sex Female 11:30 PM ASPHALT TAMPING MACHINE OPERATOR Gender Identity Female 06/15/2023 1:45 PM CDT Sexual Orientation Straight 06/15/2023 1: 45 PM CDT documented as of this encounter Last Filed Vital Signs Vital Sign Reading Time Taken Comments Blood Pressure 128/64 01/25/2023 1:07 PM ASPHALT TAMPING MACHINE OPERATOR Pulse 65 01/25/2023 1:07 PM ASPHALT TAMPING MACHINE OPERATOR Temperature 36.7 ??C (98 ??F) 01/25/2023 1:07 PM ASPHALT TAMPING MACHINE OPERATOR Respiratory Rate 18 01/25/2023 1:07 PM ASPHALT TAMPING MACHINE OPERATOR Oxygen Saturation 98% 01/25/2023 1:07 PM ASPHALT TAMPING MACHINE OPERATOR Inhaled Oxygen Concentration - - Weight - - Height - - Body Mass Index - - documented in this encounter Miscellaneous Notes * Home Health Visit Narrative - Bradley Mota RN - 01/25/2023 12:41 PM ASPHALT TAMPING MACHINE OPERATOR I have been seeing this patient for [...] the daughter we aren't seeing any improvement. ALT TAMPING MACHINE OPERATOR documented in this encounter Plan of Treatment Not on file documented as of this encounter Visit Diagnoses Not on filedocumented in this encounter Home Health Visit - Care Plan Visit Details Visit Type -SN Home Visit Discipline -Mcfp Problems Problem Description Start Date Status Goals Interve ntions Homebound Status Disciplines: Skilled Disciplines Patient's homebound status 12/15/2022 Active 1 goal linked to scheduled/documen soraida intervention 1 goal intervention scheduled/documen soraida in this visit Monitor patient's vital signs every home health visit Disciplines: SN, PT, OT, REELER OPERATOR, TIRE CHANGER, Skilled Disciplines Monitor patient's vital signs every [...] this visit Disease Management - Diabetes Disciplines: Mcfp Management of diabetes symptoms 12/15/2022 Active 1 goal linked to scheduled/documen soraida intervention 3 goal interventions scheduled/documen soraida in this visit Learning/Teachin g Needs - Diabetes Disciplines: Mcfp Learning and teaching needs associated with diagnosis [...] visit during episode of care Description: Home speech clinician to measure vital signs during every [...] Completed documented in this encounter Care Teams Dye And Chemical Coordinator Relationship Specialty Start Date End Date Mehul Verdugo MD [address] [facility] [address] [place] [address] PCP - General Internal Medicine 09/10/21 Paulette Geller MD [address] [facility] [address] [place] [address] Consulting Physician Gastroenterology 05/22/21 documented as of this encounter
--- OUTSIDE RECORDS SUMMARY | 2024-03-13 23:57 | XMS_ITS | Encounter Summary ---
Author Organization [facility] Address [address] [place] [address] Phone Care Team Providers Care Manager Dental Name Role Phone Paulette Geller MD Unavailable + Mehul Verdugo MD Primary Care Provider [phone] Encounter Details Date Type Department Care Team (Late st Contact Info) Description 09/14/2023 Orders Only [facility] Cardiology [address] [facility] Advanced Medicine 8th [place] [address] [place] [address] Sp Madrid MD [address] [facility] [address] [place] [address] Social History Tobacco Use Types [...] on file Legal Sex Female 11:30 PM MED AIDE Gender Identity Female 06/15/2023 1:45 PM [...] documented as of this encounter Care Teams Manager Dental Relationship Specialty Start Date End Date Mehul Verdugo MD [address] [facility] [address] [place] [address] PCP - General Internal Medicine 09/10/21 Paulette Geller MD [address] [place] [address] Consulting Physician Gastroenterology 05/22/21 documented as of this encounter
--- OUTSIDE RECORDS SUMMARY | 2024-03-13 23:57 | XMS_ITS | Encounter Summary ---
Author Organization [facility] Address [address] [place] [address] Care Team Providers Care Service Delivery Director Name Role Phone Paulette Geller MD Unavailable + Mehul Verdugo MD Primary Care Provider [phone] Encounter Details Date Type Department Care Team (Late st Contact Info) Description 02/08/2023 [facility] [address] [facility] [address] [place] [address] Garima Silva, PRASHANTH [address] [facility] [address] [place] [address] Social History Tobacco Use Types [...] on file 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 Female 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 Gender Identity Female 06/15/2023 1:45 PM CDT Sexual Orientation Straight 06/15/2023 1: 45 PM CDT documented as of this encounter Plan of Treatment Not on file documented as of this encounter Visit Diagnoses Not on filedocumented in this encounter Care Teams Service Delivery Director Relationship Specialty Start Date End Date Mehul Verdugo MD [address] [facility] [address] [place] [address] PCP - General Internal Medicine 09/10/21 Paulette Geller MD [facility] [address] [place] [address] Consulting Physician Gastroenterology 05/22/21 documented as of this encounter
--- OUTSIDE RECORDS SUMMARY | 2024-03-13 23:57 | XMS_ITS | Encounter Summary ---
Author Organization [facility] Address [address] [place] [address] Care Team Providers Care Sewing Machine Operator Floorperson Name Role Phone Paulette Geller MD Unavailable + Mehul Verdugo MD Primary Care Provider [phone] Reason for Referral * Diagnostic Imaging (Routine) - Closed Specialty Diagnoses / Procedures Referred By Contelmer t Referred To Contact Diagnoses Age-related osteoporosis without current pathological fracture Procedures Dexa Axial Skeleton Bone Density 1 or 2 Site Mehul Verdugo MD [address] [address] Phone: tel: fax: [address] [address] Referral ID Status Reason Start Date Expiration Date Visits Re quested Visits Authorized [id number] Closed 06/07/2023 07/06/2024 1 1 Reason for Visit * Reason Comments Hypertension Diabetes Chronic Kidney Disease Encounter Details Date Type Department Care Team (Late st Contact Info) Description 06/07/2023 11:00 AM CDT [facility] [address] [facility] [address] [place] [address] Mehul Verdugo MD [address] [facility] [address] [place], [place] [id number] Type 2 diabetes mellitus without complication, with [...] on file Legal 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 Gender Identity Female 06/15/2023 1:45 PM [...] Free, Intramuscular 02/09/2019 Influenza, Unspecified 01/15/2015, 12/17/2020 [facility] SARS-CoV-2 Monovalent Vaccination (12+ Yrs) CHASE-READY TO [...] meter (True Metrix Glucose Meter) [facility] Use to test blood sugar once daily [...] of insulin ([facility]) (HCC) (E11.9, Z79.4) (Primary) Comments: Stable and [...] 9:12 AM CDT Performed at: ??01 - [address] ??[id number] Sourcing Associate: Axel Hillman PhD, Phone: ??[phone] Mehul Verdugo MD LAB URINE ORDERABLES Final Re sult Performing Organization Address [facility] de Phone Number LABITT EXIM [facility] - * TSH (06/07/2023 11:59 AM CDT) Pathologist [facility] TSH 4.090 0.450 - 4.500 uIU/mL [facility] - 01 Blood 06/07/2023 11:5 9 AM CDT 06/07/2023 Narrative [facility] - 06/08/2023 12:11 PM CDT Performed at: ??01 - [facility] ??[id number] Sourcing Associate: Axel Hillman PhD, Phone: ??[phone] Mehul Verdugo MD LAB BLOOD ORDERABLES Final Re sult Performing Organization Address [facility] de Phone Number [facility] * (ABNORMAL) [...] PM CDT Performed at: ??01 - [facility] [address] ??[id number] Sourcing Associate: Axel Hillman PhD, Phone: ??[phone] us Mehul Verdugo MD LAB BLOOD ORDERABLES [...] of insulin ([facility]/HCC) (HCC)- Primary Age-related osteoporosis without current pathological fracture Dyslipidemia Other and unspecified hyperlipidemia HTN (hypertension), benign Essential hypertension, benign S/P mitral valve repair Other postprocedural status Tricuspid valve disorder Tricuspid valve disorders, 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
--- OUTSIDE RECORDS SUMMARY | 2024-03-13 23:57 | XMS_ITS | Encounter Summary ---
Author Organization [facility] Address [address] [place] [address] Care Team Providers Care Foaming Machine Operator Name Role Phone Paulette Geller MD Unavailable + Mehul Verdugo MD Primary Care Provider [phone] Encounter Details Date Type Department Care Team (Late st Contact Info) Description 01/27/2023 [facility] [address] [facility] [address] [place] [address] Mehul Verdugo MD [address] [facility] [address] [place] [address] Social History Tobacco Use Types [...] on file 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 Gender Identity Female 06/15/2023 1:45 PM CDT Sexual Orientation Straight 06/15/2023 1: 45 PM CDT documented as of this encounter Plan of Treatment Not on file documented as of this encounter Procedures Procedure Name Priority Date/Time Associated Diagnosis Comments SCAN - LABS 01/27/2023 2:07 AM INTELLIGENCE CHIEF documented in this encounter Results * SCAN - LABS (01/27/2023 2:07 AM INTELLIGENCE CHIEF) Mehul Verdugo MD Final Result documented in this encounter Visit Diagnoses Not on filedocumented in this encounter Care Teams Foaming Machine Operator Relationship Specialty Start Date End Date Mehul Verdugo MD [address] [facility] [address] [place] [address] PCP - General Internal Medicine 09/10/21 Paulette Geller MD [address] [place] [address] Consulting Physician Gastroenterology 05/22/21 documented as of this encounter
--- OUTSIDE RECORDS SUMMARY | 2024-03-13 23:57 | XMS_ITS | Encounter Summary ---
Author Organization [facility] Address [address] [place] [address] Care Team Providers Care Director Nursing Service Name Role Phone Paulette Geller MD Unavailable + Mehul Verdugo MD Primary Care Provider [phone] Reason for Visit * Reason Onset Date Comments upload 04/21/2023 Encounter Details Date Type Department Care Team (Late st Contact Info) Description 04/21/2023 [facility] [address] [facility] [address] [place] [address] Mehul Verdugo MD [address] [facility] [address] [place] [address] upload Social History Tobacco Use [...] on file Legal Sex Female 11:30 PM BROOMCORN SORTER Gender Identity Female 06/15/2023 1:45 PM CDT Sexual Orientation Straight 06/15/2023 1: 45 PM CDT documented as of this encounter Miscellaneous Notes * Telephone Encounter - Silvana Fisher RN - 04/21/2023 4:[address] Verdugo increase tresiba to 32 units and send report again next week. I called lvm on Azul's phone MCORN SORTER * Telephone Encounter - Silvana Fisher RN - 04/21/2023 3:35 PM CST I put copy of dexcom on your desk MCORN SORTER * Telephone Encounter - No Franz - 04/21/2023 1:43 PM BROOMCORN SORTER Patient's daughter, Azul, called in she has uploaded pt's dexcom for review. Pt currently on 30 units Tresiba. MCORN SORTER documented in this encounter Plan of Treatment Not on file documented as of this encounter Visit Diagnoses Not on filedocumented in this encounter Care Teams Director Nursing Service Relationship Specialty Start Date End Date Mehul Verdugo MD [address] [place] [address] PCP - General Internal Medicine 09/10/21 Paulette Geller MD [address] [place] [address] Consulting Physician Gastroenterology 05/22/21 documented as of this encounter
--- OUTSIDE RECORDS SUMMARY | 2024-03-13 23:57 | XMS_ITS | Encounter Summary ---
Author Organization [facility] Address [address] [place] [address] Care Team Providers Care Apartment Leasing Specialist Name Role Phone Paulette Geller MD Unavailable + Mehul Verdugo MD Primary Care Provider [phone] Encounter Details Date Type Department Care Team (Late st Contact Info) Description 04/05/2023 [facility] [address] [facility] [address] [place] [address] Mehul Verdugo MD [address] [facility] [address] [place] [address] Social History Tobacco Use Types [...] on file Legal Sex Female 11:30 PM TABLE LEVER OPERATOR Gender Identity Female 06/15/2023 1:45 PM CDT Sexual Orientation Straight 06/15/2023 1: 45 PM CDT documented as of this encounter Miscellaneous Notes * Telephone Encounter - Silvana Fisher RN - 04/05/2023 3:12 PM CST I spoke to daughter, her dad is making sure that pt is getting dose. They are to increase Tresiba to 25 and send a report next week. E LEVER OPERATOR * Telephone Encounter - No Franz - 04/05/2023 3:01 PM TABLE LEVER OPERATOR Daughter called back and said that the Tresiba is 20 units E LEVER OPERATOR * Telephone Encounter - Silvana Fisher RN - 04/05/2023 2:46 PM CST I reviewed download with Dr Verdugo he said to increase dose by 5 units due to TAR 98% only 2% TIR. I called daughter had to lvm she needs to call back to let us know her insulin dose. E LEVER OPERATOR * Telephone Encounter - Melanie Wilkes MA - 04/05/2023 1:58 PM CST Pt dtr calling for you to look at her Dexcom readings E LEVER OPERATOR documented in this encounter Plan of Treatment Not on file documented as of this encounter Visit Diagnoses Not on filedocumented in this encounter Care Teams Apartment Leasing Specialist Relationship Specialty Start Date End Date Mehul Verdugo MD [address] [facility] [address] [place] [address] PCP - General Internal Medicine 09/10/21 Paulette Geller MD [address] [place] [address] Consulting Physician Gastroenterology 05/22/21 documented as of this encounter
--- OUTSIDE RECORDS SUMMARY | 2024-03-13 23:57 | XMS_ITS | Encounter Summary ---
Author Organization [facility] Address [address] [place] [address] Care Team Providers Care Steel Hanger Name Role Phone Paulette Geller MD Unavailable + Mehul Verdugo MD Primary Care Provider [phone] Encounter Details Date Type Department Care Team (Late st Contact Info) Description 02/23/2023 [facility] [address] [facility] [address] [place] [address] Mehul Verdugo MD [address] [facility] [address] [place] [address] Social History Tobacco Use Types [...] file Legal Sex Female 11:30 PM BARREL DEDENTING MACHINE OPERATOR Gender Identity Female 06/15/2023 1:45 PM CDT Sexual Orientation Straight 06/15/2023 1: 45 PM CDT documented as of this encounter Miscellaneous Notes * Telephone Encounter - Melanie Wilkes MA - 02/23/2023 12:42 PM CST Azul aware EL DEDENTING MACHINE OPERATOR * Telephone Encounter - Mehul Verdugo MD - 02/23/2023 12:07 PM CST If no low readings, please increase to 30 units daily EL DEDENTING MACHINE OPERATOR * Telephone Encounter - Melanie Wilkes MA - 02/23/2023 11:47 AM CST Pt daughter calling bloodsugar average on Dexcom G7 is 374 She was increased to 26 units of tresiba aliitle over a week ago. No improvement with the 2 units increase EL DEDENTING MACHINE OPERATOR documented in this encounter Plan of Treatment Not on file documented as of this encounter Visit Diagnoses Not on filedocumented in this encounter Care Teams Steel Hanger Relationship Specialty Start Date End Date Mehul Verdugo MD [address] [facility] [address] [place] [address] PCP - General Internal Medicine 09/10/21 Paulette Geller MD [address] [place] [address] Consulting Physician Gastroenterology 05/22/21 documented as of this encounter
--- OUTSIDE RECORDS SUMMARY | 2024-03-13 23:57 | XMS_ITS | Encounter Summary ---
Author Organization [facility] Address [address] [place] [address] Phone Care Team Providers Care Remote Control Mirror Installer Name Role Phone Paulette Geller MD Unavailable + Mehul Verdugo MD Primary Care Provider [phone] Encounter Details Date Type Department Care Team (Late st Contact Info) Description 02/23/2023 Telephone [facility] Cardiology [address] [facility] Advanced [facility] 8th [place] [address] [place] [address] Sp Madrid MD [address] [facility] [address] [place] [address] Social History Tobacco Use Types [...] on file Legal Sex Female 11:30 PM FIRE DISPATCHER Gender Identity Female 06/15/2023 1:45 PM CDT Sexual Orientation Straight 06/15/2023 1: 45 PM CDT documented as of this encounter Miscellaneous Notes * Telephone Encounter - Belkis Vasquez RN - 02/23/2023 12:55 PM FIRE DISPATCHER Confirmed patient spoke with daughter Azul about Dr Verdugo's recommendations DISPATCHER * Telephone Encounter - Belkis Vasquez RN - 02/23/2023 12:23 PM FIRE DISPATCHER Spoke to Madeline at [facility] Critical glucose 467 Relayed critical result to PRASHANTH [place] Received verbal orders to contact PCP office DISPATCHER * Telephone Encounter - Osiris Mercer - 02/23/2023 12:20 PM CST Julius/Yomi Correa with [facility] Services calling to speak with a nurse in regards to reporting a critical lab result on this pt. DISPATCHER documented in this encounter Plan of Treatment Not on file documented as of this encounter Visit Diagnoses Not on filedocumented in this encounter Care Teams Remote Control Mirror Installer Relationship Specialty Start Date End Date Mehul Verdugo MD [address] [facility] [address] [place] [address] PCP - General Internal Medicine 09/10/21 Paulette Geller MD [address] [place] [address] Consulting Physician Gastroenterology 05/22/21 documented as of this encounter
--- OUTSIDE RECORDS SUMMARY | 2024-03-13 23:57 | XMS_ITS | Encounter Summary ---
Author Organization [facility] Address [address] [place] [address] Phone Care Team Providers Care Freezer Assistant Name Role Phone Paulette Geller MD Unavailable + Mehul Verdugo MD Primary Care Provider [phone] Reason for Visit * Reason Onset Date Comments Med Management 02/02/2023 Encounter Details Date Type Department Care Team (Late st Contact Info) Description 02/02/2023 Telephone [facility] Cardiology [address] [facility] Advanced Medicine 8th [place] [address] [place] [address] Sp Madrid MD [address] [facility] [address] [place] [address] Med Management Social History Tobacco Use Types [...] file Legal Sex Female 11:30 PM ONLINE BANKING SPECIALIST Gender Identity Female 06/15/2023 1:45 PM [...] Belkis Markham RN - 02/02/2023 1:24 PM ONLINE BANKING SPECIALIST Called [facility] [place] to clarify that patient is currently taking furosemide as written : Take 1 tablet by mouth (20 mg) one day and then 2 tablets by mouth (40 mg) alternating. Will change order to reflect NE BANKING SPECIALIST NE BANKING SPECIALIST * Telephone Encounter - Belkis Markham RN - 02/02/2023 12:14 PM ONLINE BANKING SPECIALIST [facility] [place] calling about refill on furosemide 40 mg. Reordered to requested pharmacy. NE BANKING SPECIALIST * Telephone Encounter - Nathalie Butler - 02/02/2023 11:20 AM CST [facility] Nurse is calling in regards to speaking to a nurse about the patients medications. NE BANKING SPECIALIST documented in this encounter Plan of [...] documented as of this encounter Care Teams Freezer Assistant Relationship Specialty Start Date End Date Mehul Verdugo MD [address] [facility] [address] [place] [address] PCP - General Internal Medicine 09/10/21 Paulette Geller MD [address] [place] [address] Consulting Physician Gastroenterology 05/22/21 documented as of this encounter
--- OUTSIDE RECORDS SUMMARY | 2024-03-13 23:57 | XMS_ITS | Referral Summary ---
Author Organization [facility] Address [address] [place] [address] Care Team Providers Care Valve Grinder Name Role Phone Paulette Geller MD Unavailable + Mehul Verdugo MD Primary Care Provider [phone] Encounters Date Type Department Care Team Description 03/13/2024 Orders Only [facility] [address] [phone] Mehul Verdugo MD 03/12/2024 Orders Only [facility] [address] [address] Mehul Verdugo MD 03/08/2024 Orders Only [facility] [address] [address] Mehul Verdugo MD 03/07/2024 Orders Only [facility] [address] [address] Mehul Verdugo MD 02/21/2024 Orders Only [facility] [address] [place] [address] Mehul Verdugo MD 02/21/2024 Orders Only [facility] Mendy Torres RN 02/09/2024 1:15 PM 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 [employer]OP Office Visit [facility] Cardiology [address] [facility] [address] [place] [address] Sp Madrid MD Dyslipidemia (Primary Dx) 02/09/2024 1:00 PM 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 Ancillary Procedure [facility] Cardiology [address] [facility] [address] [place] [address] S/P mitral valve repair; Chronic diastolic heart failure (HCC) from Last 3 Months Allergies No known active allergies Medications acetaminophen (TYLENOL) 325 mg tabletIndication s:Fever,Pain Take 2 tablets (650 mg total) by mouth every 4 (four) hours as needed for pain or headaches 20 tablet 2 Active blood-glucose meter (True Metrix Glucose Meter) misc Use to test blood sugar once daily DX: E11.9 non insulin dependent 1 each 2 Active aspirin 81 mg enteric coated tabletIndication s:prevention of thrombosis Take 1 tablet (81 mg total) by mouth daily 3 Active pen needle, diabetic 31 gauge x 07/13 needle Use to inject 1-4 times daily as directed. 100 each 4 3 Active OneTouch Verio test strips strip Use to test blood sugar 2 times per day.Diag code 11.9 100 strip 3 3 Active lancets 30 gauge misc One Touch Delica Lancets - Use to test blood sugar 2 times per day.Diag code 11.9 100 each 3 3 Active lancets 30 gauge misc Test sugars twice daily dx ell.9 accucheck elizabeth plus 100 each 3 3 Active pravastatin (PRAVACHOL) 40 mg tablet Take 1 tablet (40 mg total) by mouth daily 90 tablet 1 4 09/13/19 25 Active apixaban (Eliquis) 2.5 mg tabletIndication s:VTE Prophylaxis Take 1 tablet (2.5 mg total) by mouth 2 (two) times a day 180 tablet 3 4 Active carvediloL (COREG) 25 mg tabletIndication s:hypertension Take 1 tablet (25 mg total) by mouth 2 (two) times a day 180 tablet 3 4 Active insulin degludec (TRESIBA) 100 unit/mL (3 mL) pen for injection INJECT 42 UNITS UNDER THE SKIN ONCE DAILY 15 mL 3 4 Active losartan (COZAAR) 100 mg tabletIndication s:Type 2 diabetes mellitus without complication, without long-term current use of insulin (CMS/HCC) (HCC) Take 1 tablet by mouth once daily 90 tablet 2 4 Active mirtazapine (REMERON) 7.5 mg tabletIndication s:major depressive disorder TAKE 1 TABLET EVERY NIGHT 90 tablet 3 4 Active furosemide (LASIX) 40 mg tablet Take 1 tablet (40 mg total) by mouth daily 40 mg a day in am , change it to every other day once leg swelling improves. 90 tablet 3 4 02/09/20 25 Active Active Problems Problem Noted Date Diagnosed Date Hospital discharge follow-up 04/02/2022 Altered mental status 04/02/2022 Frequent falls 03/17/2022 Assessment & Plan (03/17/2022 12:13 PM 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): Likely related to progressing dementia? (reviewed prior [...] lasix Primary insomnia 12/31/2020 Age-related osteoporosis wit adam current pathological fracture 12/31/2020 Compression fracture of [...] eliquis at home tomorrow 05/13 Pulmonary hypertension (CMS/HCC) 11/24/2014 Type 2 diabetes mellitus 10/07/2014 Assessment & Plan (05/19/2021 7:51 PM CDT): A1C 5.9%. Home metformin, glimepride - follow BG on BMP Assessment & Plan (05/12/2021 7:57 AM CDT): (HgbA1C 5.9) -home metformin and Glimepride -Consistent carb diet; insulin sensitive SSI Dyslipidemia 10/07/2014 HTN (hypertension), benign 10/07/2014 Assessment & Plan (03/17/2022 12:12 PM 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): Encouraged to get home monitor and ensure [...] (05/10/2021): Added automatically from request for surgery [id number] Assessment & Plan (05/19/2021 8:46 PM CDT): [...] file Legal Sex Female 11:30 PM 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 Gender Identity Female 06/15/2023 1:45 PM CDT Sexual Orientation Straight 06/15/2023 1: 45 PM CDT Last Filed Vital Signs Vital Sign Reading Time Taken Comments Blood Pressure 148/70 02/09/2024 1:04 PM 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 Pulse 80 02/09/2024 1:04 PM 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 Temperature 36.7 ??C (98 ??F) 02/09/2024 1:04 PM 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 Respiratory Rate 18 02/05/2023 11:22 AM 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 Oxygen Saturation 96% 02/09/2024 1:04 PM 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 Inhaled Oxygen Concentration - - Weight 68.9 kg (152 lb) 02/09/2024 1:04 PM 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 Height 154.9 cm (5' 1 ) 02/09/2024 1:04 PM 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 Body Mass Index 28.72 02/09/2024 1:04 PM 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 Plan of Treatment Not on file Medical Devices Implanted Type Area Conventional Underwriter Device Identifier Shelf Expiration Date Model / Serial / Lot [employer] [id number] Vertaplex Hv Autoplex Without Needle Delivery System Kit Bone - [id number] Implanted:Qty: 1 on 05/23/2020 at [facility] [place] [facility] [id number] 08/27/2021 [id number] / / [id number] Procedures Procedure Name Priority Date/Time Associated Diagnosis Comments SCAN - RADIOLOGY/IMAGING 03/13/2024 12:38 PM 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 SCAN - RADIOLOGY/IMAGING 03/12/2024 8:57 PM 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 SCAN - RADIOLOGY/IMAGING 03/12/2024 8:50 PM 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 SCAN - RADIOLOGY/IMAGING 03/12/2024 8:28 PM 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 SCAN - RADIOLOGY/IMAGING 03/12/2024 8:28 PM 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 SCAN - RADIOLOGY/IMAGING 03/12/2024 12:16 PM 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 SCAN - RADIOLOGY/IMAGING 03/08/2024 4:23 PM 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 SCAN - RADIOLOGY/IMAGING 03/08/2024 2:55 PM 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 SCAN - RADIOLOGY/IMAGING 03/08/2024 2:53 PM 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 SCAN - RADIOLOGY/IMAGING 03/07/2024 4:34 PM 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 SCAN - LABS 03/07/2024 2:11 AM 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 SCAN - RADIOLOGY/IMAGING 03/06/2024 11:19 PM 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 SCAN - LABS 02/21/2024 2:43 PM 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 SCAN - LABS 02/21/2024 11:16 AM 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 SCAN - LABS 02/21/2024 TRANSTHORACIC ECHO (TTE) COMPLETE W DOPPLER/CF WO CONTRAST Routine 02/09/2024 1:45 PM 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 S/P mitral valve repair Chronic diastolic heart [...] (HCC) LIPID PANEL Routine 02/23/2023 9:53 AM 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 Dyslipidemia DEXA AXIAL SKELETON BONE DENSITY 1 OR MORE SITES Schedule Routine, Read Routine (OP Routine) 09/09/2020 10:40 AM CDT Age related osteoporosis, unspecified pathological fracture presence Post-menopausal Abnormal bone density screening from Last 3 Months or Most Recently Relevant to Health Maintenance Results * SCAN - RADIOLOGY/IMAGING (03/13/2024 12:38 PM 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) Anatomical Region Laterality Modality Other Result Mary Verdugo MD Final Result * SCAN - RADIOLOGY/IMAGING (03/12/2024 8:57 PM 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) Anatomical Region Laterality Modality Other Result Mary Verdugo MD Final Result * SCAN - RADIOLOGY/IMAGING (03/12/2024 8:50 PM 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) Anatomical Region Laterality Modality Other Result Mary Verdugo MD Final Result * SCAN - RADIOLOGY/IMAGING (03/12/2024 8:28 PM 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) Anatomical Region Laterality Modality Other Result Mary Verdugo MD Final Result * SCAN - RADIOLOGY/IMAGING (03/12/2024 8:28 PM 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) Anatomical Region Laterality Modality Other Result Mary Verdugo MD Final Result * SCAN - RADIOLOGY/IMAGING (03/12/2024 12:16 PM 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) Anatomical Region Laterality Modality Other Result Mary Verdugo MD Final Result * SCAN - RADIOLOGY/IMAGING (03/08/2024 4:23 PM 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) Anatomical Region Laterality Modality Other Result Mary Verdugo MD Final Result * SCAN - RADIOLOGY/IMAGING (03/08/2024 2:55 PM 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) Anatomical Region Laterality Modality Other Result Mary Verdugo MD Final Result * SCAN - RADIOLOGY/IMAGING (03/08/2024 2:53 PM 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) Anatomical Region Laterality Modality Other Result Mary Verdugo MD Final Result * SCAN - RADIOLOGY/IMAGING (03/07/2024 4:34 PM 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) Anatomical Region Laterality Modality Other us Mehul Verdugo MD Final Result * SCAN - LABS (03/07/2024 2:11 AM 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) Mehul Verdugo MD Final Result * SCAN - RADIOLOGY/IMAGING (03/06/2024 11:19 PM 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) Anatomical Region Laterality Modality Other us Mehul Verdugo MD Final Result * SCAN - LABS (02/21/2024 2:43 PM 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) us Mehul Verdugo MD Final Result * SCAN - LABS (02/21/2024 11:16 AM 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) us Mehul Verdugo MD Final Result * SCAN - LABS (02/21/2024) Mendy Torres RN Edite d Result - Final * TRANSTHORACIC ECHO (TTE) COMPLETE W DOPPLER/CF WO CONTRAST (02/09/2024 1:45 PM 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) LV EF 60 % CARDIOREPORT Anatomical Region Laterality Modality Ultrasound 02/09/2024 1:00 PM 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 Narrative 02/09/2024 9:30 PM 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 Patient name: Yuliana Singh Date of test: 02/09/2024 Type of test: TTE w/Doppler Hospital #: 0 Date of : 1940 (F) Credit Risk Analyst: Capri Prado RDCS Referring Physician: EMI CELAYA MD Contrast Agent: Contrast Administered by: Supervised/Interpreted by: Sp Madrid MD Diagnosis: Location: [facility] Reason for test: S/P MV [id number] annuloplasty Physio II ring MV Structure: s/p [...] 2=Hypo 3=Akinetic 4=Dyskin./Aneurysm 0=Not visualized) Parasternal Long [place]:MAS=1 BAS=1 MIL=1 ESTUARDO=1 Parasternal Short [place]:MAS=1 MIS=1 DC=1 MIL=1 MAL=1 MA=1 Apical 4 Chambers:=1 MIS=1 BIS=1 BAL=1 MAL=1 AL=1 AC=1 Apical 2 Chambers:AI=1 DC=1 BI=1 BA=1 MA=1 AA=1 AC=1 LV Global [...] MD By signing this report, the attending molded grid and parts inspector certifies that he or she has personally supervised and interpreted the echocardiogram and has reviewed and or edited and agrees with the written comments contained within the report. Procedure Sp Bernal MD - 02/09/2024 Patient name: Yuliana Singh Date of test: 02/09/2024 Type of test: TTE w/Doppler [facility] #: 0 Date of : 1940 (F) Credit Risk Analyst: Capri Prado RDCS Referring Physician: EIM CELAYA MD Contrast Agent: Contrast Administered by: Supervised/Interpreted by: Sp Madrid MD Diagnosis: Location: [facility] Reason for test: S/P MV [id number] annuloplasty Physio II ring MV Structure: s/p [...] 2=Hypo 3=Akinetic 4=Dyskin./Aneurysm 0=Not visualized) Parasternal [place]:MAS=1 BAS=1 MIL=1 ESTUARDO=1 Parasternal Short [place]:MAS=1 MIS=1 DC=1 MIL=1 MAL=1 MA=1 Apical 4 Chambers:=1 MIS=1 BIS=1 BAL=1 MAL=1 AL=1 AC=1 Apical 2 Chambers:AI=1 DC=1 BI=1 BA=1 MA=1 AA=1 AC=1 LV Global [...] MD By signing this report, the attending molded grid and parts inspector certifies that he or she has personally supervised and interpreted the echocardiogram and has reviewed and or edited and agrees with the written comments contained within the report. Emi Celaya DISTRICT FIRE CHIEF CV ECHO PROCEDURES Final Resu lt * [...] AM CDT Performed at: ??01 - [facility] [address], [place], [place] ??[id number] Transmission And Protection Engineer: Axel Hillman PhD, Phone: ??[phone] Mehul Verdugo MD LAB URINE ORDERABLES Final Re sult [facility] - 01 * (ABNORMAL) Comprehensive metabolic panel (06/07/2023 11:59 [...] PM CDT Performed at: ??01 - [facility] [address], [place], [place] [id number] Transmission And Protection Engineer: Axel Hillman PhD, Phone: ??[phone] us Mehul Verdugo MD LAB BLOOD ORDERABLES Final Re sult [facility] - 01 * (ABNORMAL) Lipid panel (02/23/2023 9:53 AM 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) [facility] Signature Cholesterol 159 30 - 199 mg/dL [facility] Comment: Interpretive Data Ages < [...] on 2017. Triglycerides 321(H) <=149 mg/dL [facility] Comment: Interpretive Data Ages < [...] on 2017. HDL 29(L) >=40 mg/dL [facility] Comment: Interpretive Data Ages < [...] on 2017. LDL, calculated 66 <=129 mg/dL [facility] Comment: Interpretive Data Ages < or [...] revised on 2017. Non-HDL Cholesterol 130 mg/dL [facility] Comment: Interpretive Data Ages < [...] last revised on 2017. Chol/HDL ratio 5 [facility] Blood 02/23/2023 9:53 AM 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 02/23/2023 11:37 AM 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 us Emi Caitlinonelia Celaya DISTRICT FIRE CHIEF LAB BLOOD ORDERABLES Final Re sult [facility] Department [place] [address] * Dexa Axial Skeleton Bone Density 1 [...] Most Recently Relevant to Health Maintenance Insurance [facility] CHOICE MEDICARE PPO [facility] CHOICE MEDICARE PPO [facility] CHOICE MEDICARE PPO [facility] [employer] CHOICE MEDICARE PPO Advance Directives For more information, please contact: [phone] * Full Code (Latest Code Status on File) Date Activated Date Inactivated Comments 05/19/2021 10:03 PM 05/22/2021 4:14 PM * Full Code Date Activated Date Inactivated Comments 05/10/2021 1:44 AM 05/12/2021 5:35 PM * Full Code Date Activated Date Inactivated Comments 05/23/2020 12:27 PM 05/23/2020 5:35 PM * Full Code Date Activated Date Inactivated Comments 02/09/2019 2:42 PM 02/11/2019 4:52 PM Care Teams Valve Grinder Relationship Specialty Start Date End Date Mehul Verdugo MD [address] [facility] [address] [place] [address] PCP - General Internal Medicine 09/10/21 Paulette Geller MD [address] [place] [address] Consulting Physician Gastroenterology 05/22/21
--- OUTSIDE RECORDS SUMMARY | 2024-03-13 23:57 | XMS_ITS | Encounter Summary ---
Author Organization [facility] Address [address] [place] [address] Care Team Providers Care Cfa Name Role Phone Paulette Geller MD Unavailable + Mehul Verdugo MD Primary Care Provider [phone] Reason for Visit * Reason Onset Date Comments Hyperglycemia 03/28/2023 Encounter Details Date Type Department Care Team (Late st Contact Info) Description 03/28/2023 [facility] [address] [facility] [address] [place] [id number] Mehul Verdugo MD [address] [facility] [address] [place] [address] Hyperglycemia Social History Tobacco Use [...] on file 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 I called sukhi and there was a glitch, he said he would make sure the supplies were sent this week. I left 2 sensors at the front tender for daughter to lemon picker to get her restarted on CGM. They will communicate on . I instructed the daughter last week on how to download and sent an invite to [facility]. Dr Verdugo made aware ING MACHINE OPERATOR * Telephone Encounter - No Franz - 03/28/2023 9:51 AM FOILING MACHINE OPERATOR Patient's daughter, Azul, calling in to report [...] they still have not received this yet. ING MACHINE OPERATOR documented in this encounter Plan of Treatment Not on file documented as of this encounter Visit Diagnoses Not on filedocumented in this encounter Care Teams Cfa Relationship Specialty Start Date End Date Mehul Verdugo MD [address] [facility] [address] [place] [address] PCP - General Internal Medicine 09/10/21 Paulette Geller MD [address] [facility] [address] [place] [address] Consulting Physician Gastroenterology 05/22/21 documented as of this encounter
--- OUTSIDE RECORDS SUMMARY | 2024-03-13 23:57 | XMS_ITS | Encounter Summary ---
Author Organization [facility] Address [address] [place] [address] Care Team Providers Care Casework Manager Name Role Phone Paulette Geller MD Unavailable + Mehul Verdugo MD Primary Care Provider [phone] Reason for Visit * Auth/Cert (Routine) Specialty Diagnoses / Procedures Referred By Cata quintanilla Referred To Contact Referral ID Status Reason Start Date Expiration Date Visits Re quested Visits Authorized [id number] 60 Encounter Details Date Type Department Care Team (Late st Contact Info) Description 02/04/2023 Home Care Visit [facility] [address] [address] [address] [place] [address] Yoana Julien, RN TELEPHONE ENCOUNTER [...] file Legal Sex Female 11:30 PM 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 Gender Identity Female 06/15/2023 1:45 PM CDT Sexual Orientation Straight 06/15/2023 1: 45 PM CDT documented as of this encounter Plan of Treatment Not on file documented as of this encounter Visit Diagnoses Not on filedocumented in this encounter Care Teams Casework Manager Relationship Specialty Start Date End Date Mehul Verdugo MD [address] [facility] [address] [place] [address] PCP - General Internal Medicine 09/10/21 Paulette Geller MD [address] [place] [address] Consulting Physician Gastroenterology 05/22/21 documented as of this encounter
--- OUTSIDE RECORDS SUMMARY | 2024-03-13 23:57 | XMS_ITS | Clinical Summary ---
Author Organization [facility] Address [address] [place] [address] Care Team Providers Care Bilingual Case Manager Name Role Phone Paulette Geller MD Unavailable + Mehul Verdugo MD Primary Care Provider [phone] Allergies No known active allergies Medications acetaminophen [...] 03/17/2022 Assessment & Plan (03/17/2022 12:13 PM PCB DESIGN ENGINEER): Likely related to progressing dementia? (reviewed prior [...] 10/07/2014 Assessment & Plan (03/17/2022 12:12 PM PCB DESIGN ENGINEER): Encouraged to get home monitor and ensure [...] (05/10/2021): Added automatically from request for surgery [id number] Assessment & Plan (05/19/2021 8:46 PM CDT): [...] Department Care Team Description 03/13/2024 Orders Only [facility] [address] [place], [place] [address] [facility] [place] [address] Mehul Verdugo MD 03/12/2024 Orders Only [facility] [address] [place], [place] [address] [facility] [place] [address] Mehul Verdugo MD 03/08/2024 Orders Only [facility] [address] [place] [address] Mehul Verdugo MD 03/07/2024 Orders Only [facility] [address] [facility] [address] [place] [address] Mehul Verdugo MD 02/21/2024 Orders Only [facility] [address] [facility] [address] [place] [address] Mehul Verdugo MD 02/21/[address] [facility] Mendy Torres RN 02/09/2024 1:15 PM PCB DESIGN ENGINEER Office Visit [facility] Cardiology [address] [facility] [address] [place] [phone] Sp Madrid MD Dyslipidemia (Primary Dx) 02/09/2024 1:00 PM PCB DESIGN ENGINEER Ancillary Procedure [facility] Cardiology [address] [facility] [address] [place] [phone] S/P mitral valve repair; Chronic diastolic heart failure (HCC) from Last 3 Months Immunizations Name Administration [...] on file Legal Sex Female 11:30 PM PCB DESIGN ENGINEER Gender Identity Female 06/15/2023 1:45 PM CDT Sexual Orientation Straight 06/15/2023 1 :45 PM CDT Obstetrics History Last Filed Vital Signs Vital Sign Reading Time Taken Comments Blood Pressure 148/70 02/09/2024 1:04 PM PCB DESIGN ENGINEER Pulse 80 02/09/2024 1:04 PM PCB DESIGN ENGINEER Temperature 36.7 ??C (98 ??F) 02/09/2024 1:04 PM PCB DESIGN ENGINEER Respiratory Rate 18 02/05/2023 11:22 AM PCB DESIGN ENGINEER Oxygen Saturation 96% 02/09/2024 1:04 PM PCB DESIGN ENGINEER Inhaled Oxygen Concentration - - Weight 68.9 kg (152 lb) 02/09/2024 1:04 PM PCB DESIGN ENGINEER Height 154.9 cm (5' 1 ) 02/09/2024 1:04 PM PCB DESIGN ENGINEER Body Mass Index 28.72 02/09/2024 1:04 PM PCB DESIGN ENGINEER Plan of Treatment Health Maintenance Due Date Last Done Comments Dilated Eye Exam 1940 Foot Exam 1940 DTaP/Tdap/Td Vaccine (1 - Tdap) 1949 Hepatitis B Screening 1958 Well Visit 65+ 11/30/2003 Zoster Vaccine (2 of 2) 11/05/2021 09/10/2021 Depression Screening 05/27/2022 05/27/2021, 05/14/2021, 12/31/2020 Fall Risk Assessment 05/27/2022 05/27/2021, 05/22/2021, 05/14/2021, Additional history exists Osteoporosis Screening-Bone Density Scan 09/09/2022 09/09/2020, 08/30/2012 Covid-19 Vaccine (2023-03 5 season) 2023 07/20/2021, 01/01/2021, 04/29/2020, Additional history exists Influenza Vaccine (#1) 2023 , 12/17/2020, 12/18/2019, Additional history exists Lipid Panel 02/24/2024 02/23/2023, 04/29, 01/19/2022, Additional history exists Hemoglobin A1C 05/31/2024 12/01/2023, 04/0 10/2023, 02/23/2023, Additional history exists Albumin Creatinine Ratio, Urine 06/06/2024 eGFR 06/06/2024 06/07/2023, 01/29, 04/20/2022, Additional history exists Pneumococcal vaccine 65+ Completed 022, 08/21/2016, 01/15/2015, Additional history exists Medical Devices Implanted Type Area Survey Engineer Device Identifier Shelf Expiration Date Model / Serial / Lot [employer] [id number] Vertaplex Hv Autoplex Without Needle Delivery System Kit Bone - [id number] Implanted:Qty: 1 on 05/23/2020 at [facility] [employer] [id number] 08/27/2021 [id number] / / [id number] Procedures Procedure Name Priority Date/Time Associated Diagnosis Comments SCAN - RADIOLOGY/IMAGING 03/13/2024 12:38 PM PCB DESIGN ENGINEER SCAN - RADIOLOGY/IMAGING 03/12/2024 8:57 PM PCB DESIGN ENGINEER SCAN - RADIOLOGY/IMAGING 03/12/2024 8:50 PM PCB DESIGN ENGINEER SCAN - RADIOLOGY/IMAGING 03/12/2024 8:28 PM PCB DESIGN ENGINEER SCAN - RADIOLOGY/IMAGING 03/12/2024 8:28 PM PCB DESIGN ENGINEER SCAN - RADIOLOGY/IMAGING 03/12/2024 12:16 PM PCB DESIGN ENGINEER SCAN - RADIOLOGY/IMAGING 03/08/2024 4:23 PM PCB DESIGN ENGINEER SCAN - RADIOLOGY/IMAGING 03/08/2024 2:55 PM PCB DESIGN ENGINEER SCAN - RADIOLOGY/IMAGING 03/08/2024 2:53 PM PCB DESIGN ENGINEER SCAN - RADIOLOGY/IMAGING 03/07/2024 4:34 PM PCB DESIGN ENGINEER SCAN - LABS 03/07/2024 2:11 AM PCB DESIGN ENGINEER SCAN - RADIOLOGY/IMAGING 03/06/2024 11:19 PM PCB DESIGN ENGINEER SCAN - LABS 02/21/2024 2:43 PM PCB DESIGN ENGINEER SCAN - LABS 02/21/2024 11:16 AM PCB DESIGN ENGINEER SCAN - LABS 02/21/2024 TRANSTHORACIC ECHO (TTE) COMPLETE W DOPPLER/CF WO CONTRAST Routine 02/09/2024 1:45 PM PCB DESIGN ENGINEER S/P mitral valve repair Chronic diastolic heart [...] (HCC) LIPID PANEL Routine 02/23/2023 9:53 AM PCB DESIGN ENGINEER Dyslipidemia DEXA AXIAL SKELETON BONE DENSITY 1 OR MORE SITES Schedule Routine, Read Routine (OP Routine) 09/09/2020 10:40 AM CDT Age related osteoporosis, unspecified pathological fracture presence Post-menopausal Abnormal bone density screening from Last 3 Months or Most Recently Relevant to Health Maintenance Results * SCAN - RADIOLOGY/IMAGING (03/13/2024 12:38 PM PCB DESIGN ENGINEER) Anatomical Region Laterality Modality Other Result Mary Verdugo MD Final Result * SCAN - RADIOLOGY/IMAGING (03/12/2024 8:57 PM PCB DESIGN ENGINEER) Anatomical Region Laterality Modality Other Result Mary Verdugo MD Final Result * SCAN - RADIOLOGY/IMAGING (03/12/2024 8:50 PM PCB DESIGN ENGINEER) Anatomical Region Laterality Modality Other Result Mary Verdugo MD Final Result * SCAN - RADIOLOGY/IMAGING (03/12/2024 8:28 PM PCB DESIGN ENGINEER) Anatomical Region Laterality Modality Other Result Mary Verdugo MD Final Result * SCAN - RADIOLOGY/IMAGING (03/12/2024 8:28 PM PCB DESIGN ENGINEER) Anatomical Region Laterality Modality Other Result Mary Verdugo MD Final Result * SCAN - RADIOLOGY/IMAGING (03/12/2024 12:16 PM PCB DESIGN ENGINEER) Anatomical Region Laterality Modality Other Result Mary Verdugo MD Final Result * SCAN - RADIOLOGY/IMAGING (03/08/2024 4:23 PM PCB DESIGN ENGINEER) Anatomical Region Laterality Modality Other Result Mary Verdugo MD Final Result * SCAN - RADIOLOGY/IMAGING (03/08/2024 2:55 PM PCB DESIGN ENGINEER) Anatomical Region Laterality Modality Other Result Mary Verdugo MD Final Result * SCAN - RADIOLOGY/IMAGING (03/08/2024 2:53 PM PCB DESIGN ENGINEER) Anatomical Region Laterality Modality Other us Mehul Verdugo MD Final Result * SCAN - RADIOLOGY/IMAGING (03/07/2024 4:34 PM PCB DESIGN ENGINEER) Anatomical Region Laterality Modality Other us Mehul Verdugo MD Final Result * SCAN - LABS (03/07/2024 2:11 AM PCB DESIGN ENGINEER) us Mehul Verdugo MD Final Result * SCAN - RADIOLOGY/IMAGING (03/06/2024 11:19 PM PCB DESIGN ENGINEER) Anatomical Region Laterality Modality Other us Mehul Verdugo MD Final Result * SCAN - LABS (02/21/2024 2:43 PM PCB DESIGN ENGINEER) us Mehul Verdugo MD Final Result * SCAN - LABS (02/21/2024 11:16 AM PCB DESIGN ENGINEER) us Mehul Verdugo MD Final Result * SCAN - LABS (02/21/2024) Mendy Torres RN Edite d Result - Final * TRANSTHORACIC ECHO (TTE) COMPLETE W DOPPLER/CF WO CONTRAST (02/09/2024 1:45 PM PCB DESIGN ENGINEER) LV EF 60 % CARDIOREPORT Anatomical Region Laterality Modality Ultrasound 02/09/2024 1:00 PM PCB DESIGN ENGINEER Narrative 02/09/2024 9:30 PM PCB DESIGN ENGINEER Patient name: Yuliana Johnson Date of test: 02/09/2024 Type of test: TTE w/Doppler [facility] #: 0 Date of : 1940 (F) Tile Installer: Capri Prado [facility] Referring Physician: EMI CELAYA MD Contrast Agent: Contrast Administered by: Supervised/Interpreted by: Sp Madrid MD Diagnosis: Location: [facility] Reason for test: S/P MV [id number]-46-[id number] annuloplasty Physio II ring MV Structure: s/p [...] 2=Hypo 3=Akinetic 4=Dyskin./Aneurysm 0=Not visualized) Parasternal Long [place]:MAS=1 BAS=1 MIL=1 ESTUARDO=1 Parasternal Short [place]:MAS=1 MIS=1 DE=1 MIL=1 MAL=1 MA=1 Apical 4 Chambers:=1 MIS=1 BIS=1 BAL=1 MAL=1 AL=1 AC=1 Apical 2 Chambers:AI=1 DE=1 BI=1 BA=1 MA=1 AA=1 AC=1 LV Global [...] MD By signing this report, the attending computerized mill mill recorder certifies that he or she has personally supervised and interpreted the echocardiogram and has reviewed and or edited and agrees with the written comments contained within the report. Procedure Note Sp Madrid MD - 02/09/2024 Patient name: Yuliana Johnson Date of test: 02/09/2024 Type of test: TTE w/Doppler [facility] #: 0 Date of : 1940 (F) Tile Installer: Capri Prado [facility] Referring Physician: EMI CELAYA MD Contrast Agent: Contrast Administered by: Supervised/Interpreted by: Sp Madrid MD Diagnosis: Location: [facility] Reason for test: S/P MV [id number]-[id number] annuloplasty Physio II ring MV Structure: s/p [...] 2=Hypo 3=Akinetic 4=Dyskin./Aneurysm 0=Not visualized) Parasternal [place]:MAS=1 BAS=1 MIL=1 ESTUARDO=1 Parasternal [place]:MAS=1 MIS=1 DE=1 MIL=1 MAL=1 MA=1 Apical 4 Chambers:=1 MIS=1 BIS=1 BAL=1 MAL=1 AL=1 AC=1 Apical 2 Chambers:AI=1 DE=1 BI=1 BA=1 MA=1 AA=1 AC=1 LV Global [...] MD By signing this report, the attending computerized mill mill recorder certifies that he or she has personally supervised and interpreted the echocardiogram and has reviewed and or edited and agrees with the written comments contained within the report. Emi Celaya RUG CLEANING SUPERVISOR CV ECHO PROCEDURES Final Resu lt * [...] AM CDT Performed at: ??01 - [facility] [address], [place], [place] ??[id number] Research Environmental Engineer: Axel Hillman PhD, Phone: ??[phone] Mehul Verdugo MD LAB URINE ORDERABLES Final [...] PM CDT Performed at: ??01 - [facility] [address] ??[id number] Research Environmental Engineer: Axel Hillman PhD, Phone: ??[phone] Mehul Verdugo MD LAB BLOOD ORDERABLES Final Re sult [facility] - 01 * (ABNORMAL) Lipid panel (02/23/2023 9:53 AM PCB DESIGN ENGINEER) Cholesterol 159 30 - 199 mg/dL [facility] Comment: Interpretive [...] on 2017. Triglycerides 321(H) <=149 mg/dL [facility] Comment: Interpretive [...] revised on 2017. HDL 29(L) >=40 mg/dL [facility] Comment: Interpretive Data Ages < or = [...] on 2017. LDL, calculated 66 <=129 mg/dL [facility] Comment: Interpretive Data Ages < or = [...] revised on 2017. Non-HDL Cholesterol 130 mg/dL [facility] Comment: Interpretive Data Ages < or = [...] last revised on 2017. Chol/HDL ratio 5 [facility] Blood 02/23/2023 9:53 AM PCB DESIGN ENGINEER 02/23/2023 11:37 AM PCB DESIGN ENGINEER us Emi Celaya RUG CLEANING SUPERVISOR LAB BLOOD ORDERABLES Final Re sult [facility] [place] [address] * Dexa Axial Skeleton Bone Density 1 [...] Most Recently Relevant to Health Maintenance Insurance [facility] CHOICE MEDICARE PPO [facility] CHOICE MEDICARE PPO [facility] [employer] [place] [address] [facility] [employer] CHOICE MEDICARE PPO Advance Directives For more information, please contact: [phone] * Full Code (Latest Code Status on File) Date Activated Date Inactivated Comments 05/19/2021 10:03 PM 05/22/2021 4:14 PM * Full Code Date Activated Date Inactivated Comments 05/10/2021 1:44 AM 05/12/2021 5:35 PM * Full Code Date Activated Date Inactivated Comments 05/23/2020 12:27 PM 05/23/2020 5:35 PM * Full Code Date Activated Date Inactivated Comments 02/09/2019 2:42 PM 02/11/2019 4:52 PM Care Teams Bilingual Case Manager Relationship Specialty [place] [address] [place] [address] [address] [place] [address] PCP - General Internal Medicine 09/10/21 Paulette Geller MD [address] [place] [address] Consulting Physician Gastroenterology 05/22/21
--- OUTSIDE RECORDS SUMMARY | 2024-03-13 23:57 | XMS_ITS | Encounter Summary ---
Author Organization [facility] Address [address] [place] [address] Phone Care Team Providers Care Education Adviser Name Role Phone Paulette Geller MD Unavailable + Mehul Verdugo MD Primary Care Provider [phone] Reason for Visit * Cardiology (Routine) - Closed Specialty Diagnoses / Procedures Referred By Contac t Referred To Contact Diagnoses S/P mitral valve repair Chronic diastolic heart failure (HCC) Procedures Transthoracic Echo (TTE) Complete W Doppler/CF Karena Celaya NP Phone: tel: fax: [facility] (All Locations) Referral ID Status Reason Start Date Expiration Date Visits Re quested Visits Authorized [id number] Closed 10/10/2023 11/08/2024 1 1 Encounter Details Date Type Department Care Team (Latest Contact Info) Description 02/09/2024 1:00 PM EVAPORATOR OPERATOR Ancillary Procedure [facility] Cardiology [address] [facility] [address] [place] [address] S/P mitral valve repair; Chronic diastolic heart [...] on file Legal Sex Female 11:30 PM EVAPORATOR OPERATOR Gender Identity Female 06/15/2023 1:45 PM CDT Sexual Orientation Straight 06/15/2023 1: 45 PM CDT documented as of this encounter Plan of Treatment Not on file documented as of this encounter Procedures Procedure Name Priority Date/Time Associated Diagnosis Comments TRANSTHORACIC ECHO (TTE) COMPLETE W DOPPLER/CF WO CONTRAST Routine 02/09/2024 1:45 PM EVAPORATOR OPERATOR S/P mitral valve repair Chronic diastolic heart failure (HCC) documented in this encounter Results * TRANSTHORACIC ECHO (TTE) COMPLETE W DOPPLER/CF WO CONTRAST (02/09/2024 1:45 PM EVAPORATOR OPERATOR) LV EF 60 % CARDIOREPORT Anatomical Region Laterality Modality Ultrasound 02/09/2024 1:00 PM EVAPORATOR OPERATOR Narrative 02/09/2024 9:30 PM EVAPORATOR OPERATOR Patient name: Yuliana Johnson Date of test: 02/09/2024 Type of test: TTE w/Doppler [facility] #: 0 Date of : 1940 (F) Warehouse Worker: Capri Prado RDCS Referring Physician: KARENA CELAYA MD Contrast Agent: Contrast Administered by: Supervised/Interpreted by: Sp Madrid MD Diagnosis: Location[place] [facility] Reason for test: S/P MV [id number]-27-[id number] annuloplasty Physio II ring MV Structure: s/p [...] 2=Hypo 3=Akinetic 4=Dyskin./Aneurysm 0=Not visualized) Parasternal Long [place]:MAS=1 BAS=1 MIL=1 ESTUARDO=1 Parasternal Short [place]:MAS=1 MIS=1 [place]=1 MIL=1 MAL=1 MA=1 Apical 4 Chambers:=1 MIS=1 BIS=1 BAL=1 MAL=1 AL=1 AC=1 Apical 2 Chambers:AI=1 WI=1 BI=1 BA=1 MA=1 AA=1 AC=1 LV Global [...] MD By signing this report, the attending appraiser personal property certifies that he or she has personally supervised and interpreted the echocardiogram and has reviewed and or edited and agrees with the written comments contained within the report. Procedure Note Sp Madrid MD - 02/09/2024 Patient name: Yuliana Johnson Date of test: 02/09/2024 Type of test: TTE w/Doppler Hospital #: 0 Date of : 1940 (F) Warehouse Worker: Capri Prado [facility] Referring Physician: KARENA CELAYA MD Contrast Agent: Contrast Administered by: Supervised/Interpreted by: Sp Madrid MD Diagnosis: Location: [facility] Reason for test: S/P MV [id number] annuloplasty Physio II ring MV Structure: s/p [...] 2=Hypo 3=Akinetic 4=Dyskin./Aneurysm 0=Not visualized) Parasternal [place]:MAS=1 BAS=1 MIL=1 ESTUARDO=1 Parasternal Short [place]:MAS=1 MIS=1 WI=1 MIL=1 MAL=1 MA=1 Apical 4 Chambers:=1 MIS=1 BIS=1 BAL=1 MAL=1 AL=1 AC=1 Apical 2 Chambers:AI=1 WI=1 BI=1 BA=1 MA=1 AA=1 AC=1 LV Global [...] MD By signing this report, the attending appraiser personal property certifies that he or she has personally [...] failure documented in this encounter Care Teams Education Adviser Relationship Specialty Start Date End Date Mehul Verdugo MD [address] [facility] [address] [place] [address] PCP - General Internal Medicine 09/10/21 Paulette Geller MD [address] [place] [address] Consulting Physician Gastroenterology 05/22/21 documented as of this encounter
--- OUTSIDE RECORDS SUMMARY | 2024-03-13 23:57 | XMS_ITS | Encounter Summary ---
Author Organization [facility] Address [address] [place] [address] Care Team Providers Care Husker Operator Name Role Phone Paulette Geller MD Unavailable + Mehul Verdugo MD Primary Care Provider [phone] Reason for Referral * Consultation (Routine) - Closed Specialty Diagnoses / Procedures Referred By Cata quintanilla Referred To Contact Otolaryngology Diagnoses Ringing in ears, bilateral Mehul Verdugo MD [address] [facility] [address] [place] [address] Phone: tel: fax: External Order Referral ID Status Reason Start Date Expiration Date V isits Requested Visits Authorized [id number] Closed Specialty Services Required 09/12/2023 10/11/2024 1 1 Question Answer Please select the performing region: External Order [171] # of visits: 1 Encounter Details Date Type Department Care Team (Late st Contact Info) Description 09/12/2023 [facility] [address] [facility] [address] [place] [address] Mehul Verdugo MD [address] [facility] [address] [place] [address] Social History Tobacco Use Types Packs/Day Years [...] file Legal Sex Female 11:30 PM SOFTWARE DEVELOPMENT INTERN Gender Identity Female 06/15/2023 1:45 PM CDT Sexual Orientation Straight 06/15/2023 1: 45 PM CDT documented as of this encounter Miscellaneous Notes * Telephone Encounter - Melanie Wilkes MA - 09/12/2023 2:33 PM CDT Pt spouse aware * Telephone Encounter - Melanie Wilkes MA - 09/12/2023 2:30 PM CDT Ent referral entered Dr Mcintyre P [phone] * Telephone Encounter - Melanie Wilkes MA [...] Primary documented in this encounter Care Teams Husker Operator Relationship Specialty Start Date End Date Mehul Verdugo MD [address] [facility] [address] [place] [address] PCP - General Internal Medicine 09/10/21 Paulette Geller MD [address] [place] [address] Consulting Physician Gastroenterology 05/22/21 documented as of this encounter
--- OUTSIDE RECORDS SUMMARY | 2024-03-13 23:57 | XMS_ITS | Encounter Summary ---
Author Organization [facility] Address [address] [place] [address] Care Team Providers Care Yardage Estimator Name Role Phone Paulette Geller MD Unavailable + Mehul Verdugo MD Primary Care Provider [phone] Reason for Visit * Reason Onset Date Comments APPROVAL FOR TEST STRIPS 01/27/2023 Encounter Details Date Type Department Care Team (Late st Contact Info) Description 01/27/2023 [facility] [address] [place] [address] Mehul Verdugo MD [address] [facility] [address] [place] [address] APPROVAL FOR TEST STRIPS Social [...] on file Legal Sex Female 11:30 PM FILLING OPERATOR Gender Identity Female 06/15/2023 1:45 PM CDT Sexual Orientation Straight 06/15/2023 1: 45 PM CDT documented as of this encounter Miscellaneous Notes * Telephone Encounter - Sandi Power - 01/27/2023 4:06 PM CST Yuliana Johnson Tran: [id number] - CONNIE - Rx #: [id number] Need help? Call us at Outcome Approvedtoday PA Case: [id number], Status: Approved, Coverage Starts on: 02/28/2022 12:00:00 AM, Coverage Ends on: 02/28/2024 12:00:00 AM. Questions? Contact . Drug OneTouch Verio strips Form [employer] Electronic PA Form Original Claim Info [id number] ING OPERATOR * Telephone Encounter - Sandi Power - 01/27/2023 10:43 AM CST Yuliana Johnson Tran: [id number] - [place] - Rx #: [id number] Need help? Call us at Status Sent to [employer] [facility] OneTouch Verio strips Form [employer] PA Form Original Claim Info [id number] ING OPERATOR documented in this encounter Plan of Treatment Not on file documented as of this encounter Visit Diagnoses Not on filedocumented in this encounter Care Teams Yardage Estimator Relationship Specialty Start Date End Date Mehul Verdugo MD [address] [facility] [address] [place] [address] PCP - General Internal Medicine 09/10/21 Paulette Geller MD [address] [place] [address] Consulting Physician Gastroenterology 05/22/21 documented as of this encounter
--- OUTSIDE RECORDS SUMMARY | 2024-03-13 23:58 | XMS_ITS | Encounter Summary ---
Author Organization [facility] Address [address] [place] [address] Care Team Providers Care Manager Marketing Communications Name Role Phone Paulette Geller MD Unavailable + Mehul Verdugo MD Primary Care Provider [phone] Reason for Referral * Consultation (Routine) - Closed Specialty Diagnoses / Procedures Referred By Contelmer t Referred To Contact Diabetes and Nutrition Services Diagnoses Type 2 diabetes mellitus without complication, without long-term current use of insulin (CMS/HCC) (HCC) Garima Silva, STITCHER FEEDER [address] [facility] [address] [place] [address] Phone: tel: fax: Silvana Fisher, RN [address] [place] [address] Phone: tel: fax: Referral ID Status Reason Start Date Expiration Date V isits Requested Visits Authorized [id number] Closed Specialty Services Required 12/06/2022 01/05/2024 10 [...] apply): None Please select the performing region: [facility] [[id number]] Please select the performing department: [facility] [address] [[id number]] To provider: SILVANA FISHER [[id number]] # of visits: 10 Reason for Visit * Reason Comments Follow-up Encounter Details Date Type Department Care Team (Late st Contact Info) Description 12/06/2022 11:00 AM CDT Office Visit [facility] [address] [place] [address] Garima Silva NP [address] [facility] [address] [place] [address] Type 2 diabetes mellitus without [...] on file Legal Sex Female 11:30 PM RELAY ADJUSTER Gender Identity Female 06/15/2023 1:45 PM CDT [...] units of Fiasp today while seeing Jacquie (Technology Coach). H/O chronic diastolic heart failure and follows [...] 11 blood-glucose meter (True Metrix Glucose Meter) [facility], Use to test blood [...] 90 tablet, Rfl: 3 lancets 33 gauge [facility], Use to test blood [...] complication, without long-term current use of insulin ([facility]) ([facility]) (Primary) Comments: HA1c >15% today. She needs insulin. Will start Tresiba 10 units once daily. Will start CGM today. [facility] Orders: - POCT hemoglobin A1c [...] without long-term current use of insulin (CMS/HCC) ([facility]) documented in this encounter Results * [...] failure documented in this encounter Care Teams Manager Marketing Communications Relationship Specialty Start Date End Date Mehul Verdugo MD [address] [facility] [address] [place] [address] PCP - General Internal Medicine 09/10/21 Paulette Geller MD [facility] [address] [place] [address] Consulting Physician Gastroenterology 05/22/21 documented as of this encounter
--- OUTSIDE RECORDS SUMMARY | 2024-03-13 23:58 | XMS_ITS | Encounter Summary ---
Author Organization [facility] Healthcare Address [address] [place] [address] Care Team Providers Care Services Coordinator Name Role Phone Paulette Geller MD Unavailable + Mehul Verdugo MD Primary Care Provider [phone] Reason for Visit * Auth/Cert (Routine) Specialty Diagnoses / Procedures Referred By Cata t Referred To Contact Referral ID Status Reason Start Date Expiration Date Visits Re quested Visits Authorized [id number] 1 60 Encounter Details Date Type Department Care Team (Late st Contact Info) Description 12/28/2022 11:00 AM CDT Home Care Visit 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 Gender Identity Female 06/15/2023 1:45 PM CDT [...] Details Visit Type -SN Home Visit Discipline -Fci Problems Problem Description Start Date Status Goals Interve ntions Homebound Status Disciplines: Skilled Disciplines Patient's homebound status 12/15/2022 Active 1 goal linked to scheduled/documen soraida intervention 1 goal intervention scheduled/documen soraida in this visit Monitor patient's vital signs every home health visit Disciplines: SN, PT, OT, INFLATED PAD BUFFER, NON DESTRUCTIVE TESTING ENGINEER, Skilled Disciplines Monitor patient's vital signs every [...] this visit Disease Management - Diabetes Disciplines: Fci Management of diabetes symptoms 12/15/2022 Active 1 goal linked to scheduled/documen soraida intervention 3 goal interventions scheduled/documen soraida in this visit Learning/Teachin g Needs - Diabetes Disciplines: Fci Learning and teaching needs associated with diagnosis [...] visit during episode of care Description: Home sound engineering technician to measure vital signs during every [...] Completed documented in this encounter Care Teams Services Coordinator Relationship Specialty Start Date End Date Mehul Verdugo MD [address] [facility] [address] [place] [address] PCP - General Internal Medicine 09/10/21 Paulette Geller MD [address] [place] [address] Consulting Physician Gastroenterology 05/22/21 documented as of this encounter
--- OUTSIDE RECORDS SUMMARY | 2024-03-13 23:58 | XMS_ITS | Encounter Summary ---
Author Organization [facility] Healthcare Address [address] [place] [address] Care Team Providers Care Aquatics Coordinator Name Role Phone Paulette Geller MD Unavailable + Mehul Verdugo MD Primary Care Provider [phone] Reason for Visit * Auth/Cert (Routine) Specialty Diagnoses / Procedures Referred By Cata t Referred To Contact Referral ID Status Reason Start Date Expiration Date Visits Re quested Visits Authorized [id number] 1 60 Encounter Details Date Type Department Care Team (Late st Contact Info) Description 12/23/2022 2:00 PM CDT Home Care Visit [facility] [address] [address] [address] [place] [address] Celine Plata, RN SN HOME VISIT Social [...] on file 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 Gender Identity Female 06/15/2023 1:45 PM [...] Details Visit Type -SN Home Visit Discipline -Assisted Problems Problem Description Start Date Status Goals Interve ntions Homebound Status Disciplines: Skilled Disciplines Patient's homebound status 12/15/2022 Active 1 goal linked to scheduled/documen soraida intervention 1 goal intervention scheduled/documen soraida in this visit Monitor patient's vital signs every home health visit Disciplines: SN, PT, OT, FOOD SAFETY SCIENTIST, STUDIO CONTROL OPERATOR, Skilled Disciplines Monitor patient's vital signs [...] this visit Disease Management - Diabetes Disciplines: Assisted Management of diabetes symptoms 12/15/2022 Active 1 goal linked to scheduled/documen soraida intervention 3 goal interventions scheduled/documen soraida in this visit Learning/Teachin g Needs - Diabetes Disciplines: Assisted Learning and teaching needs associated with diagnosis [...] visit during episode of care Description: Home evaporator operator to measure vital signs during every home [...] Completed documented in this encounter Care Teams Aquatics Coordinator Relationship Specialty Start Date End Date Mehul Verdugo MD [address] [facility] [address] [place] [address] PCP - General Internal Medicine 09/10/21 Paulette Geller MD [facility] [address] [place] [address] Consulting Physician Gastroenterology 05/22/21 documented as of this encounter
--- OUTSIDE RECORDS SUMMARY | 2024-03-13 23:58 | XMS_ITS | Encounter Summary ---
Author Organization [facility] Address [address] [place] [address] Care Team Providers Care Covered Buckle Assembler Name Role Phone Paulette Geller MD Unavailable + Mehul Verdugo MD Primary Care Provider [phone] Reason for Visit * Reason Onset Date Comments Metformin increase instruction 05/21/2022 Encounter Details Date Type Department Care Team (Late st Contact Info) Description 05/21/2022 [facility] [address] [place] [address] Mehul Verdugo MD [address] [facility] [address] [place] [address] Metformin increase instruction Social History [...] file 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
--- OUTSIDE RECORDS SUMMARY | 2024-03-13 23:58 | XMS_ITS | Encounter Summary ---
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
--- OUTSIDE RECORDS SUMMARY | 2024-03-13 23:58 | XMS_ITS | Encounter Summary ---
Author Organization [facility] Address [address] [place] [address] Phone Care Team Providers Care Oil Speculator Name Role Phone Paulette Geller MD Unavailable + Mehul Verdugo MD Primary Care Provider [phone] Encounter Details Date Type Department Care Team (Latest Contact Info) Description 09/23/2022 2:00 PM CDT Office Visit [facility] Cardiology [address] [facility] [address] [place] [address] Sp Madrid MD [address] 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 KRALY done on 04/20/2018 :Normal LV and RV [...] 11 blood-glucose meter (True Metrix Glucose Meter) [facility] Use to test blood sugar once daily [...] Pseudo normal Echo 03/22/2022 LVEF 60-65%. At [facility]. I reviewed the following labs [...] regarding her cardiac problems. Damien Norton MD stove mounter Cardiology Division [facility] documented in this encounter Plan of [...] documented as of this encounter Care Teams Oil Speculator Relationship Specialty Start Date End Date Mehul Verdugo MD [address] [facility] [address] [place] [address] PCP - General Internal Medicine 09/10/21 Paulette Geller MD [address] [place] [address] Consulting Physician Gastroenterology 05/22/21 documented as of this encounter
--- OUTSIDE RECORDS SUMMARY | 2024-03-13 23:58 | XMS_ITS | Encounter Summary ---
Author Organization [facility] Address [address] [place] [address] Phone Care Team Providers Care Manager Hardware Name Role Phone Paulette Geller MD Unavailable + Mehul Verdugo MD Primary Care Provider Reason for Visit * Reason Onset Date Comments Med Dose Change 04/22/2022 Lasix increased: 20 mg and 40 mg alternating elevated bnp 04/22/2022 Encounter Details Date Type Department Care Team (Late st Contact Info) Description 04/22/2022 Telephone [facility] Cardiology [address] [facility] [address] [address] [place] [address] Sp Madrid MD [address] [facility] [address] [place] [address] Med Dose Change (Lasix increased: 20 mg [...] on file Legal Sex Female 11:30 PM PHARMACY ASSOCIATE Gender Identity Female 06/15/2023 1:45 PM [...] Mendy Torres RN - 04/22/2022 4:42 PM PHARMACY ASSOCIATE BNP: 816 Lab Results Component Value Date [...] back once they start to run low. MACY ASSOCIATE MACY ASSOCIATE MACY ASSOCIATE documented in this encounter Plan of Treatment Not on file documented as of this encounter Visit Diagnoses Not on filedocumented in this encounter Discontinued Medications Medication Sig Discontinue Reason Start Date End Da te furosemide (LASIX) 20 mg tablet Take 1 tablet (20 mg total) by mouth daily 07/10/2021 04/22/2022 documented as of this encounter Care Teams Manager Hardware Relationship Specialty Start Date End Date Mehul Verdugo MD [address] [facility] [address] [place] [address] PCP - General Internal Medicine 09/10/21 Paulette Geller MD [address] [place] [address] Consulting Physician Gastroenterology 05/22/21 documented as of this encounter
--- OUTSIDE RECORDS SUMMARY | 2024-03-13 23:58 | XMS_ITS | Encounter Summary ---
Author Organization [facility] Address [address] [place] [address] Care Team Providers Care Classification Analyst Name Role Phone Paulette Geller MD Unavailable + Mehul Verdugo MD Primary Care Provider [phone] Reason for Visit * Reason Onset Date Comments Spoke With Home Health Provider 12/09/2022 Encounter Details Date Type Department Care Team (Late st Contact Info) Description 12/09/2022 [facility] [id number] [place] [address] Mehul Verdugo MD [address] [facility] [address] [place] [address] Spoke With Home Health Provider [...] on file 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 * Telephone Encounter - No Franz - 12/09/2022 1:42 PM CDT Chante with [facility] homehealth care calling the received the referral over however their first opening to see patient is 12/15. Is this okay? CB [id number] documented in this encounter Plan of Treatment Not on file documented as of this encounter Visit Diagnoses Not on filedocumented in this encounter Care Teams Classification Analyst Relationship Specialty Start Date End Date Mehul Verdugo MD [address] [facility] [address] [place] [address] PCP - General Internal Medicine 09/10/21 Paulette Geller MD [address] [place] [address] Consulting Physician Gastroenterology 05/22/21 documented as of this encounter
--- OUTSIDE RECORDS SUMMARY | 2024-03-13 23:58 | XMS_ITS | Encounter Summary ---
Author Organization [facility] Healthcare Address [address] [place] [address] Care Team Providers Care Valving Machine Operator Name Role Phone Paulette Geller MD Unavailable + Mehul Verdugo MD Primary Care Provider Reason for Visit * Auth/Cert (Routine) Specialty Diagnoses / Procedures Referred By Cata t Referred To Contact Referral ID Status Reason Start Date Expiration Date Visits Re quested Visits Authorized [id number] 1 60 Encounter Details Date Type Department Care Team (Late st Contact Info) Description 01/10/2023 11:30 AM SALES TEAM MANAGER Home Care Visit [facility] [address] [address] [address] [place] [address] Bradley Mota, EDD SN HOME VISIT Social [...] file Legal Sex Female 11:30 PM SALES TEAM MANAGER Gender Identity Female 06/15/2023 1:45 PM CDT Sexual Orientation Straight 06/15/2023 1: 45 PM CDT documented as of this encounter Last Filed Vital Signs Vital Sign Reading Time Taken Comments Blood Pressure 122/64 01/10/2023 12:30 PM SALES TEAM MANAGER Pulse 65 01/10/2023 12:30 PM SALES TEAM MANAGER Temperature 36.7 ??C (98 ??F) 01/10/2023 12:30 PM SALES TEAM MANAGER Respiratory Rate 18 01/10/2023 12:30 PM SALES TEAM MANAGER Oxygen Saturation 98% 01/10/2023 12:30 PM SALES TEAM MANAGER Inhaled Oxygen Concentration - - Weight - - Height - - Body Mass Index - - documented in this encounter Miscellaneous Notes * Home Health Visit Narrative - Bradley Mota RN - 01/10/2023 12:11 PM SALES TEAM MANAGER Assessed patient. Educated on s/s of infection, [...] werent good choices, but that they cheated. S TEAM MANAGER documented in this encounter Plan of Treatment Not on file documented as of this encounter Visit Diagnoses Not on filedocumented in this encounter Home Health Visit - Care Plan Visit Details Visit Type -SN Home Visit Discipline -Usp Problems Problem Description Start Date Status Goals Interve ntions Homebound Status Disciplines: Skilled Disciplines Patient's homebound status 12/15/2022 Active 1 goal linked to scheduled/documen soraida intervention 1 goal intervention scheduled/documen soraida in this visit Monitor patient's vital signs every home health visit Disciplines: SN, PT, OT, HVAC REFRIGERATION TECHNICIAN, HVAC COMMERCIAL SALESPERSON, Skilled Disciplines Monitor patient's vital signs every [...] this visit Disease Management - Diabetes Disciplines: Usp Management of diabetes symptoms 12/15/2022 Active 1 goal linked to scheduled/documen soraida intervention 3 goal interventions scheduled/documen soraida in this visit Learning/Teachin g Needs - Diabetes Disciplines: Usp Learning and teaching needs associated with diagnosis [...] visit during episode of care Description: Home surveyor geophysical prospecting to measure vital signs during every home [...] Completed documented in this encounter Care Teams Valving Machine Operator Relationship Specialty Start Date End Date Mehul Verdugo MD [address] [facility] [address] [place] [address] PCP - General Internal Medicine 09/10/21 Paulette Geller MD [address] [place] [address] Consulting Physician Gastroenterology 05/22/21 documented as of this encounter
--- OUTSIDE RECORDS SUMMARY | 2024-03-13 23:58 | XMS_ITS | Encounter Summary ---
Author Organization [facility] Address [address] [place] [address] Care Team Providers Care Lining Feller Name Role Phone Paulette Geller MD Unavailable + Mehul Verdugo MD Primary Care Provider [phone] Encounter Details Date Type Department Care Team (Late st Contact Info) Description 10/28/2022 [facility] [address] [facility] [address] [place] [address] Mehul Verdugo MD [address] [facility] [address] [place] [address] Social History Tobacco Use Types [...] on file 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
--- OUTSIDE RECORDS SUMMARY | 2024-03-13 23:58 | XMS_ITS | Encounter Summary ---
Author Organization [facility] Healthcare Address [address] [place] [address] [address] Team Providers Care Ct Scan Technician Name Role Phone Paulette Geller MD Unavailable + Mehul Verdugo MD Primary Care Provider [phone] Reason for Visit * Auth/Cert (Routine) Specialty Diagnoses / Procedures Referred By Cata t Referred To Contact Referral ID Status Reason Start Date Expiration Date Visits Re quested Visits Authorized [id number] 1 60 Encounter Details Date Type Department Care Team (Late st Contact Info) Description 12/20/2022 11:30 AM CDT Home Care Visit [facility] [address] [address] [address] [place] [address] Bradley Mota, EDD SN HOME VISIT Social [...] on file Legal 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 Female 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 GENETIC PHYSICIAN Gender Identity Female 06/15/2023 1:45 PM [...] Details Visit Type -SN Home Visit Discipline -Correction Problems Problem Description Start Date Status Goals Interve ntions Homebound Status Disciplines: Skilled Disciplines Patient's homebound status 12/15/2022 Active 1 goal linked to scheduled/documen soraida intervention 1 goal intervention scheduled/documen soraida in this visit Monitor patient's vital signs every home health visit Disciplines: SN, PT, OT, ASSISTANT COUNSEL, EDUCATION ASSOCIATE, Skilled Disciplines Monitor patient's vital signs every [...] this visit Disease Management - Diabetes Disciplines: Correction Management of diabetes symptoms 12/15/2022 Active 1 goal linked to scheduled/documen soraida intervention 3 goal interventions scheduled/documen soraida in this visit Learning/Rubén g Needs - Insulin Management Disciplines: Correction Lack of knowledge related to insulin management 12/15/2022 Active 1 goal linked to scheduled/documen soraida intervention 1 goal intervention scheduled/documen soraida in this visit Problems with Coping - Diabetes Disciplines: Correction Problems related to coping with home management of diabetes 12/15/2022 Active 1 goal linked to scheduled/documen soraida intervention 1 goal intervention scheduled/documen soraida in this visit Learning/Rubén g Needs - Diabetes Disciplines: Correction Learning and teaching needs associated with diagnosis [...] visit during episode of care Description: Home behavior clinician to measure vital signs during every [...] booklet documented in this encounter Care Teams Ct Scan Technician Relationship Specialty Start Date End Date Mehul Verdugo MD [address] [place] [address] [address] [place] [address] PCP - General Internal Medicine 09/10/21 Paulette Geller MD [address] [place] [address] Consulting Physician Gastroenterology 05/22/21 documented as of this encounter
--- OUTSIDE RECORDS SUMMARY | 2024-03-13 23:58 | XMS_ITS | Encounter Summary ---
Author Organization [facility] Address [address] [place] [address] Care Team Providers Care Hand Folder Name Role Phone Paulette Geller MD Unavailable + Mehul Verdugo MD Primary Care Provider [phone] Reason for Visit * Reason Comments Follow-up Encounter Details Date Type Department Care Team (Late st Contact Info) Description 01/06/2023 10:30 AM WEB PRODUCTION MANAGER Office Visit [facility] [address] [facility] [address] [facility] [place] [address] Garima Silva, PRASHANTH [address] [facility] [address] [place] [address] Type 2 diabetes mellitus without [...] file Legal Sex Female 11:30 PM WEB PRODUCTION MANAGER Gender Identity Female 06/15/2023 1:45 PM CDT Sexual Orientation Straight 06/15/2023 1: 45 PM CDT documented as of this encounter Last Filed Vital Signs Vital Sign Reading Time Taken Comments Blood Pressure 112/70 01/06/2023 10:39 AM WEB PRODUCTION MANAGER Pulse 63 01/06/2023 10:39 AM WEB PRODUCTION MANAGER Temperature - - Respiratory Rate - - Oxygen Saturation 95% 01/06/2023 10:39 AM WEB PRODUCTION MANAGER Inhaled Oxygen Concentration - - Weight - - Height - - Body Mass Index - - documented in this encounter Patient Instructions * Patient Instructions* Garima Silva NP - 01/06/2023 10:30 AM WEB PRODUCTION MANAGER Increase Tresiba to 20 units once daily PRODUCTION MANAGER documented in this encounter Progress Notes * [...] process. She has been following with our evs manager. Reviewed and interpreted CGM download with patient [...] Rfl: blood-glucose meter (True Metrix Glucose Meter) [facility] [place], Use to test blood sugar once daily [...] Free, Intramuscular 02/09/2019 Influenza, Unspecified 01/15/2015, 12/17/2020 [email or web address] SARS-CoV-2 Monovalent Vaccination (12+ Yrs) CHASE-READY TO [...] Mehul Verdugo MD at 01/07/2023 1:24 PM WEB PRODUCTION MANAGER PRODUCTION MANAGER PRODUCTION MANAGER documented in this encounter Plan of Treatment Not on file documented as of this encounter Visit Diagnoses Diagnosis Type 2 diabetes mellitus without complication, with long-term current use of insulin (CMS/HCC) (HCC)- Primary HTN (hypertension), benign Essential hypertension, benign Dyslipidemia Other and unspecified hyperlipidemia documented in this encounter Care Teams Hand Folder Relationship Specialty Start Date End Date Mehul Verdugo MD [address] [facility] [address] [place] [address] PCP - General Internal Medicine 09/10/21 Paulette eGller MD [address] [place] [address] Consulting Physician Gastroenterology 05/22/21 documented as of this encounter
--- OUTSIDE RECORDS SUMMARY | 2024-03-13 23:58 | XMS_ITS | Encounter Summary ---
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 Patient accepted to [facility]. Home health serviceswas explained and information verified with patient's spouse Pedrito He agreed to home care services. Verified no other home care agency is in the home. He was instructed to call [phone] (option [phone]) if have not been contacted by [facility] with 24-48 hours. documented in this encounter Plan of Treatment Not on file documented as of this encounter Visit Diagnoses Not on filedocumented in this encounter Care Teams Fuel Cell Battery Technician Relationship Specialty Start Date End Date Mehul Verdugo MD [address] [facility] [address] [place] [address] PCP - General Internal Medicine 09/10/21 Paulette Geller MD [address] [place] [address] Consulting Physician Gastroenterology 05/22/21 documented as of this encounter
--- OUTSIDE RECORDS SUMMARY | 2024-03-13 23:58 | XMS_ITS | Encounter Summary ---
Author Organization [facility] Address [address] [place] [address] Care Team Providers Care Reinforcing Steel Worker Wire Mesh Name Role Phone Paulette Geller MD Unavailable + Mehul Verdugo MD Primary Care Provider [phone] Encounter Details Date Type Department Care Team (Late st Contact Info) Description 12/15/2022 [facility] [address] [facility] [address] [place] [address] Mehul Verdugo MD [address] 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 She is [...] is also requesting more nursing visits. 2 detention visits for 1 weeks and then 1 detention visit for 4 weeks. documented in this encounter Plan of Treatment Not on file documented as of this encounter Visit Diagnoses Not on filedocumented in this encounter Care Teams Reinforcing Steel Worker Wire Mesh Relationship Specialty Start Date End Date Mehul Verdugo MD [address] [facility] [address] [place] [address] PCP - General Internal Medicine 09/10/21 Paulette Geller MD [address] [place] [address] Consulting Physician Gastroenterology 05/22/21 documented as of this encounter
--- OUTSIDE RECORDS SUMMARY | 2024-03-13 23:58 | XMS_ITS | Encounter Summary ---
Author Organization [facility] Address [address] [place] [address] Phone Care Team Providers Care Market Survey Representative Name Role Phone Paulette Geller MD Unavailable + Mehul Verdugo MD Primary Care Provider [phone] Reason for Referral * Cardiology (Routine) - Closed Specialty Diagnoses / Procedures Referred By Contac t Referred To Contact Diagnoses Nonrheumatic mitral valve regurgitation Procedures Transthoracic Echo (TTE) Complete W Doppler/CF Yarely Kilpatrick MD [address] [facility] [address] [place] [address] Phone: tel: fax: [facility] (All Locations) Referral ID Status Reason Start Date Expiration Date Visits Re quested Visits Authorized [id number] Closed 04/20/2022 05/20/2023 1 1 BUTTER HAND Reason for Visit * Consultation (Routine) - Closed Specialty Diagnoses / Procedures Referred By Contac t Referred To Contact Cardiology Diagnoses Nonrheumatic mitral valve regurgitation Mehul Verdugo MD [address] [facility] [address] [place] [address] Phone: tel: fax: [facility] (All Locations) Referral ID Status Reason Start Date Expiration Date V isits Requested Visits Authorized [id number] Closed Specialty Services Required 11/16/2021 12/16/2022 12 Encounter Details Date Type Department Care Team (Latest Contact Info) Description 04/20/2022 10:45 AM WELT BUTTER HAND Office Visit [facility] [address] [place] [address] Yarely Kilpatrick MD [address] [facility] [address] [place] [address] Nonrheumatic mitral valve regurgitation (Primary Dx) Social [...] on file Legal Sex Female 11:30 PM WELT BUTTER HAND Gender Identity Female 06/15/2023 1:45 PM CDT Sexual Orientation Straight 06/15/2023 1: 45 PM CDT documented as of this encounter Last Filed Vital Signs Vital Sign Reading Time Taken Comments Blood Pressure 120/70 04/20/2022 10:41 AM WELT BUTTER HAND Pulse 68 04/20/2022 10:41 AM WELT BUTTER HAND Temperature 36.2 ??C (97.1 ??F) 04/20/2022 10:[address] Respiratory Rate - - Oxygen Saturation 96% 04/20/2022 10:41 AM WELT BUTTER HAND Inhaled Oxygen Concentration - - Weight 65.1 kg (143 lb 9.6 oz) 04/20/2022 10:41 AM WELT BUTTER HAND Height 154.9 cm (5' 0.98 ) 04/20/2022 10:[address] Body Mass Index 27.15 04/20/2022 10:41 AM WELT BUTTER HAND documented in this encounter Patient Instructions * Patient Instructions* Yarely Kilpatrick MD - 04/20/2022 10:45 AM WELT BUTTER HAND ECHO WITH DOPPLER Bnp ,bmp, cbc rTC 4M BUTTER HAND documented in this encounter Progress Notes * [...] Pseudo normal Echo 03/22/2022 LVEF 60-65%. At [facility]. I reviewed the following labs and discussed [...] regarding her cardiac problems. Damien Norton MD road conductor Cardiology Division [facility] BUTTER HAND documented in this encounter Plan of Treatment [...] #: 0 Date of : 1940 (F) It Disaster Recovery Manager: YOANA Wu ??RDCS Referring Physician: YARELY KILPATRICK MD Contrast Agent: 0.8 ml Optison Administered, (2.2 ml wasted). Contrast Administered by: Mendy Torres RN Supervised/Interpreted by: Yarely Kilpatrick MD Diagnosis: Location: [facility] Reason for test: MR MV [...] 2=Hypo 3=Akinetic 4=Dyskin./Aneurysm 0=Not visualized) Parasternal Long [place]:MAS=1 BAS=1 MIL=1 ESTUARDO=1 Parasternal Short [place]:MAS=1 MIS=1 IN=1 MIL=1 MAL=1 MA=1 Apical 4 Chambers:=1 MIS=1 BIS=1 BAL=1 MAL=1 AL=1 AC=1 Apical 2 Chambers:AI=1 IN=1 BI=1 BA=1 MA=1 AA=1 AC=1 LV Global [...] MD By signing this report, the attending sales project administrator certifies that he or she has personally supervised and interpreted the echocardiogram and has reviewed and or edited and agrees with the written comments contained within the report. Procedure Note Yarely Kilpatrick MD - 05/11/2022 Patient name: Yuliana Johnson Date of test: 05/11/2022 Type of test: TTE w/Doppler Hospital #: 0 Date of : 1940 (F) It Disaster Recovery Manager: YOANA Wu [facility] Referring Physician: YARELY KILPATRICK MD Contrast Agent: 0.8 ml Optison Administered, (2.2 ml wasted). Contrast Administered by: Mendy Torres RN Supervised/Interpreted by: Yarely Kilpatrick MD Diagnosis: Location: [facility] Reason for test: MR MV Structure: Normal, [...] 2=Hypo 3=Akinetic 4=Dyskin./Aneurysm 0=Not visualized) Parasternal Long [place]:MAS=1 BAS=1 MIL=1 ESTUARDO=1 Parasternal Short [place]:MAS=1 MIS=1 IN=1 MIL=1 MAL=1 MA=1 Apical 4 Chambers:=1 MIS=1 BIS=1 BAL=1 MAL=1 AL=1 AC=1 Apical 2 Chambers:AI=1 IN=1 BI=1 BA=1 MA=1 AA=1 AC=1 LV Global [...] MD By signing this report, the attending sales project administrator certifies that he or she has personally supervised and interpreted the echocardiogram and has reviewed and or edited and agrees with the written comments contained within the report. us Yarely Kilpatrick MD CV ECHO PROCEDURES Final Resul t * (ABNORMAL) Pro B-type natriuretic peptide (04/20/2022 12:04 PM WELT BUTTER HAND) NT-proBNP 810(H) <=450 pg/mL [facility] Comment: Interpretive Comments: A. Dyspnea in Acute [...] Date: 2017. Blood 04/20/2022 12:0 4 PM WELT BUTTER HAND 04/20/2022 1:47 PM WELT BUTTER HAND us Yarely Kilpatrick MD LAB BLOOD ORDERABLES Final Res ult [facility] Department of Laboratories [place], [place] [id number] * (ABNORMAL) CBC with auto differential (04/20/2022 12:04 PM WELT BUTTER HAND) WBC 7.5 3.8 - 9.9 K/cumm [facility] Hgb 13.0 11.9 - 15.5 g/dL [facility] Hct 41.5 35.6 - 45.5 % [facility] Plt 172 150 - 400 K/cumm [facility] MPV 12.4(H) 9.1 - 12.3 fL [facility] RBC 4.75 3.90 - 5.20 M/cumm [facility] MCV 87.4 81.3 - 96.4 fL [facility] MCH 27.4 27.1 - 33.3 pg [facility] MCHC 31.3(L) 32.3 - 35.7 g/dL [facility] RDW CV 12.9 11.1 - 14.9 % [facility] RDW SD 41.0 35.7 - 48.1 fL [facility] NRBC abs 0.00 0.00 - 0.01 K/cumm [facility] Blood 04/20/2022 12:0 4 PM WELT BUTTER HAND 04/20/2022 1:47 PM WELT BUTTER HAND us Yarely Kilpatrick MD LAB BLOOD ORDERABLES Final Res ult [facility] [place] [address] * (ABNORMAL) Basic metabolic panel (04/20/2022 12:04 PM WELT BUTTER HAND) Sodium 137 135 - 145 mmol/L [facility] Potassium, pl 5.1(H) 3.3 - 4.9 mmol/L [facility] Chloride 100 97 - 110 mmol/L [facility] CO2 28 22 - 32 mmol/L [facility] Anion gap 9 2 - 15 mmol/L [facility] BUN 25 8 - 25 mg/dL [facility] Creatinine 1.26(H) 0.60 - 1.10 mg/dL [facility] Glucose 338(H) 70 - 199 mg/dL [facility] Comment: Interpretive Data Fasting glucose >/= [...] 2022. Calcium 9.4 8.5 - 10.3 mg/dL [facility] Blood 04/20/2022 12:0 4 PM WELT BUTTER HAND 04/20/2022 1:47 PM WELT BUTTER HAND us Yarely Kilpatrick MD LAB BLOOD ORDERABLES Final Res ult [facility] [place] [address] documented in this encounter Visit Diagnoses Diagnosis Nonrheumatic mitral valve regurgitation- Primary Nonrheumatic mitral valve regurgitation documented in this encounter Historical Medications * This list may reflect changes made after this encounter. aspirin 81 mg enteric coated tabletIndications :prevention of thrombosis Take 1 tablet (81 mg total) by mouth daily 03/25/2022 added in this encounter Care Teams Market Survey Representative Relationship Specialty Start Date End Date Mehul Verdugo MD [address] [facility] [address] [place] [address] PCP - General Internal Medicine 09/10/21 Paulette Geller MD [address] [place] [address] Consulting Physician Gastroenterology 05/22/21 documented as of this encounter
--- OUTSIDE RECORDS SUMMARY | 2024-03-13 23:58 | XMS_ITS | Encounter Summary ---
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 The patient is under my care, and I have authorized serviceson this plan of care and will periodically review the plan. The patient had a [id number] encounter with Mehul Verdugo MD on 12/06/2022 and the encounter was related to the primary reason for home health care. documented in this encounter Plan of Treatment Not on file documented as of this encounter Visit Diagnoses Not on filedocumented in this encounter Care Teams Research Manufacturing Operator Relationship Specialty Start Date End Date Mehul Verdugo MD [address] [facility] [address] [place] [address] PCP - General Internal Medicine 09/10/21 Paulette Geller MD [address] [place] [address] Consulting Physician Gastroenterology 05/22/21 documented as of this encounter
--- OUTSIDE RECORDS SUMMARY | 2024-03-13 23:58 | XMS_ITS | Encounter Summary ---
Author Organization [facility] Address [address] [place] [address] Care Team Providers Care Etymology Professor Name Role Phone Paulette Geller MD Unavailable + Mehul Verdugo MD Primary Care Provider [phone] Reason for Referral * Consultation (Routine) - Closed Specialty Diagnoses / Procedures Referred By Contac t Referred To Contact Diabetes and Nutrition Services Diagnoses Type 2 diabetes mellitus without complication, without long-term current use of insulin (CMS/HCC) (HCC) Mehul Verdugo MD [address] [facility] [address] [place] [address] Phone: tel: fax: Silvana Fisher, RN [address] [place] [address] Phone: tel: fax: Referral ID Status Reason Start Date Expiration Date V isits Requested Visits Authorized [id number] Closed Specialty Services Required 12/06/2022 01/05/2024 10 10 Question Answer [id number] Yes Service requested Diabetes Self-Management Education/Training (DSMT) Diabetes Self-Management Education/Training (DSMT) Hours of Treatment Follow-up DSME/T: 2 hours (either group or individual) DNCNRFR All 10 DSMT content areas as appropriate, Continuous Glucose Monitoring, Medications Reason for Referral Hyperglycemia [id number] Cognitive Impairment Complications/Comorbidities (Check all that apply): CHD Please select the performing region: [facility] [[id number]] Please select the performing department: [facility] [address] [[id number]] To provider: SILVANA FISHER [[id number]] # of visits: 10 Reason for Visit * Reason Comments Diabetes * Consultation (Routine) - Closed Specialty Diagnoses / Procedures Referred By Contac t Referred To Contact Diabetes and Nutrition Services Diagnoses Type 2 diabetes mellitus without complication, without long-term current use of insulin (CMS/HCC) ([facility]) Garima Silva NP [address] [facility] [address] [place] [address] Phone: tel: fax: Silvana Fisher, RN [address] [place] [address] Phone: tel: fax: Referral ID Status Reason Start Date Expiration Date V isits Requested Visits Authorized [id number] Closed Specialty Services Required 12/06/2022 01/05/2024 10 10 Encounter Details Date Type Department Care Team (Latest Contact Info) Description 12/06/2022 12:00 PM CDT Clinical Support [facility] [address] [place] [address] [address] [place] [address] Type 2 diabetes mellitus without complication, without long-term current use of insulin (CMS/HCC) ([facility]) (Primary Dx); Type 2 diabetes mellitus without complication, with long-term current use of insulin (CMS/HCC) (HCC); Type 2 diabetes mellitus without complication, without long-term current use of insulin (CMS/HCC) ([facility]) Social History Tobacco Use Types Packs/Day Years [...] on file 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 Her A1c today [...] had DM [] Diet [] Refer to Dredge Pump Operator [] Given Patient Planning/Behavior Goals She will [...] for Daily Foot Care [] Referral to Hair Boiler Operator [] Review of Eye, Travel, and Dental Care [x] Review of HgbA,C % [] Lipids: TC ___ LDL ___ HDL ___ Trig ___ []Review of long-term complications [] Most recent eye exam ___ [] Most recent microalbumin or 24 hour urine protein ___ A1c > 15% CONCLUSIONS AND RECOMMENDATIONS Plan 1: Per Garima Silva PHARMACY OPERATIONS COORDINATOR stop Metformin 2:Per Garima Silva PHARMACY OPERATIONS COORDINATOR give 5 units of Fiasp now for bg of 340 3:Per Garima start Tresiba 10 units in am, first dose given by 4:Start Dexcom G 7 write down pre meal and hs bg's call in 3 days 5:Order N faith Clinical Data: AADE7 Behaviors Saw a perioperative educator [] Never [] Last 6 Months [...] 12/08/2022 documented in this encounter Care Teams Etymology Professor Relationship Specialty Start Date End Date Mehul Verdugo MD [address] [facility] [address] [place] [address] PCP - General Internal Medicine 09/10/21 Paulette Geller MD [address] [place] [address] Consulting Physician Gastroenterology 05/22/21 documented as of this encounter
--- OUTSIDE RECORDS SUMMARY | 2024-03-13 23:58 | XMS_ITS | Encounter Summary ---
Author Organization [facility] Address [address] [place] [address] Care Team Providers Care Physician Advisor Name Role Phone Paulette Geller MD Unavailable + Mehul Verdugo MD Primary Care Provider [phone] Encounter Details Date Type Department Care Team (Late st Contact Info) Description 12/20/2022 [facility] [address] [facility] [address] [place] [address] Silvana Fisher, RN [address] [place] [address] Social History Tobacco Use Types Packs/Day Years [...] on file 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 [address] [place] [address] PCP - General Internal Medicine 09/10/21 Paulette Geller MD [address] [place] [address] Consulting Physician Gastroenterology 05/22/21 documented as of this encounter
--- OUTSIDE RECORDS SUMMARY | 2024-03-13 23:58 | XMS_ITS | Encounter Summary ---
Author Organization [facility] Healthcare Address [address] [place] [address] Care Team Providers Care Recreation Technician Name Role Phone Paulette Geller MD Unavailable + Mehul Verdugo MD Primary Care Provider [phone] Reason for Visit * Auth/Cert (Routine) Specialty Diagnoses / Procedures Referred By Cata quintanilla Referred To Contact Referral ID Status Reason Start Date Expiration Date Visits Re quested Visits Authorized [id number] 1 60 Encounter Details Date Type Department Care Team (Late st Contact Info) Description 12/22/2022 Home Care Visit [facility] [address] [address] [address] [place] [address] Cindy Villavicencio RN SN TRIAGE [...] on file 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 MEHUL VERDUGO'S OFFICE YULIANA BLOCKE [phone] W [id number] [birth year] RE: ON A CONTINUOUS GLUCOSE SENSOR. [...] Visit Type -SN Triage Encoun ter Discipline -Fci Problems Problem Description Start Date Status Goals Interve ntions Homebound Status Disciplines: Skilled Disciplines Patient's homebound status 12/15/2022 Active 1 goal linked to scheduled/documen soraida intervention 1 goal intervention scheduled/documen soraida in this visit Monitor patient's vital signs every home health visit Disciplines: SN, PT, OT, DISTILLERY MANAGER, MATTING PRESS TENDER, Skilled Disciplines Monitor patient's vital signs every [...] 12/15/2022 Active 1 goal linked to scheduled/documen soarida intervention 4 goal interventions scheduled/documen soraida in this visit Goals Goal Associated Problem Outcome Goal Met? Visit Notes Patient receives care at the most appropriate care setting Description: Patient receives care at the most appropriate care setting. Homebound Status No Measure vital signs during every home health visit during episode of care Description: Home financial operations analyst to measure vital signs during every home [...] Scheduled documented in this encounter Care Teams Recreation Technician Relationship Specialty Start Date End Date Mehul Verdugo MD [address] [facility] [address] [place] [address] PCP - General Internal Medicine 09/10/21 Paulette Geller MD [address] [place] [address] Consulting Physician Gastroenterology 05/22/21 documented as of this encounter
--- OUTSIDE RECORDS SUMMARY | 2024-03-13 23:58 | XMS_ITS | Encounter Summary ---
Author Organization [facility] Address [address] [place] [address] Care Team Providers Care Assembling Machine Operator Name Role Phone Paulette Geller MD Unavailable + Mehul Verdugo MD Primary Care Provider [phone] Reason for Visit * Reason Comments Diabetes Hyperlipidemia Hypertension Encounter Details Date Type Department Care Team (Late st Contact Info) Description 05/20/2022 11:15 AM CDT Office Visit [facility] [address] [facility] [address] [place] [address] Mehul Verdugo MD [address] [facility] [address] [place] [address] Type 2 diabetes mellitus without [...] on file 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 lancets 33 gauge [facility] Use to [...] complication, without long-term current use of insulin ([facility]) (HCC) (E11.9) (Primary) Comments: A1c markedly increased. [...] Priority Date/Time Associated Diagnosis Comments POCT GLUCOSE [id number] Routine 05/20/2022 12 :27 PM CDT Hyperlipidemia, unspecified hyperlipidemia type POCT HEMOGLOBIN A1C Routine 05/20/2022 1 2:27 PM CDT Type 2 diabetes mellitus without complication, without long-term current use of insulin ([facility]) (HCC) POCT LIPID PANEL Routine 05/20/2022 12:2 [...] complication, without long-term current use of insulin ([facility]) (HCC)- Primary Hyperlipidemia, unspecified hyperlipidemia type S/P [...] 12/01/2023 added in this encounter Care Teams Assembling Machine Operator Relationship Specialty Start Date End Date Mehul Verdugo MD [address] [facility] [address] [place] [address] PCP - General Internal Medicine 09/10/21 Paulette Geller MD [address] [place] [address] Consulting Physician Gastroenterology 05/22/21 documented as of this encounter
--- OUTSIDE RECORDS SUMMARY | 2024-03-13 23:58 | XMS_ITS | Encounter Summary ---
Author Organization [facility] Address [address] [place] [address] Care Team Providers Care Preschool Lead Teacher Name Role Phone Paulette Geller MD Unavailable + Mehul Verdugo MD Primary Care Provider [phone] Reason for Visit * Reason Comments Diabetes Encounter Details Date Type Department Care Team (Latest Contact Info) Description 12/16/2022 11:00 AM CDT Clinical Support [facility] [address] [facility] [address] [place] [id number] Type 2 diabetes mellitus without complication, with long-term current use of insulin ([facility]/HCC) ([facility]) (Primary Dx) Social History Tobacco Use Types [...] on file 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 She had A1c > 15%. Garima started her on basal insulin and CGM. [facility] is seeing her. [x] Behavior [x] Psychosocial/Cultural [...] today. I had asked him at the [facility] to have one of his daughter's call our office. He was to busy and did not contact them. I don't think they know the current situation. I spoke to Dr Verdugo and he said to reach out to the daughter. Mr Elizabeth gave me his daughter's number Azul. It is in our contact info I called [facility] for her to call the office. [x] Diet [x] Refer to Customer Contact Specialist [] Given Patient Planning/Behavior Goals I went [...] for Daily Foot Care [] Referral to Respiratory Therapy Manager [] Review of Eye, Travel, and Dental [...] HHN Clinical Data: AADE7 Behaviors Saw a merchandise stocker [] Never [x] Last 6 Months [] [...] documented as of this encounter Care Teams Preschool Lead Teacher Relationship Specialty Start Date End Date Mehul Verdugo MD [address] [facility] [address] [place] [address] PCP - General Internal Medicine 09/10/21 Paulette Geller MD [address] [place] [address] Consulting Physician Gastroenterology 05/22/21 documented as of this encounter
--- OUTSIDE RECORDS SUMMARY | 2024-03-13 23:58 | XMS_ITS | Encounter Summary ---
Author Organization [facility] Address [address] [place] [address] Phone Care Team Providers Care Library Circulation Assistant Name Role Phone Paulette Geller MD Unavailable + Mehul Verdugo MD Primary Care Provider [phone] Reason for Visit * Reason Onset Date Comments Med Management 09/24/2022 Eliquis Encounter Details Date Type Department Care Team (Late st Contact Info) Description 09/24/2022 Telephone [facility] Cardiology [address] [facility] Advanced Medicine 8th [place] [address] [place] [address] Sp Madrid MD [address] [facility] [address] [place] [address] Med Management (Eliquis) Social History [...] on file 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
--- OUTSIDE RECORDS SUMMARY | 2024-03-13 23:58 | XMS_ITS | Encounter Summary ---
Author Organization [facility] Address [address] [place] [address] Phone Care Team Providers Care Horticulturalist Name Role Phone Paulette Geller MD Unavailable + Mehul Verdugo MD Primary Care Provider [phone] Reason for Visit * Cardiology (Routine) - Closed Specialty Diagnoses / Procedures Referred By Contac t Referred To Contact Diagnoses Nonrheumatic mitral valve regurgitation Procedures Transthoracic Echo (TTE) Complete W Doppler/[place] [address] [place] [address] [address] [place] [address] Phone: tel: fax: [facility] (All Locations) Referral ID Status Reason Start Date Expiration Date Visits Re quested Visits Authorized [id number] Closed 04/20/2022 05/20/2023 1 1 Encounter Details Date Type Department Care Team (Latest Contact Info) Description 05/11/2022 1:30 PM CDT Ancillary Procedure [facility] Cardiology [address] [facility] [address] [place] [address] Nonrheumatic mitral valve regurgitation Social History Tobacco [...] on file 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 Contrast Administered by: Mendy Torres RN Supervised/Interpreted by: Sp Kilpatrick MD Diagnosis: Location: [facility] Reason for test: MR MV Structure: [...] 2=Hypo 3=Akinetic 4=Dyskin./Aneurysm 0=Not visualized) Parasternal Long Waverly:MAS=1 BAS=1 MIL=1 ESTUARDO=1 Parasternal Short [place]:MAS=1 MIS=1 NE=1 MIL=1 MAL=1 MA=1 Apical 4 Chambers:=1 MIS=1 BIS=1 BAL=1 MAL=1 AL=1 AC=1 Apical 2 Chambers:AI=1 NE=1 BI=1 BA=1 MA=1 AA=1 AC=1 LV Global [...] MD By signing this report, the attending grain trader certifies that he or she has personally supervised and interpreted the echocardiogram and has reviewed and or edited and agrees with the written comments contained within the report. Procedure Note Sp Kilpatrick MD - 05/11/2022 Patient name: Yuliana Johnson Date of test: 05/11/2022 Type of test: TTE w/Doppler Hospital #: 0 Date of : 1940 (F) Jewelry Technician: YOANA Wu [facility] Referring Physician: SP KILPATRICK MD Contrast Agent: 0.8 ml Optison Administered, (2.2 ml wasted). Contrast Administered by: Mendy Torres RN Supervised/Interpreted by: Sp Kilpatrick MD Diagnosis: Location: [facility] Reason for test: MR MV Structure: [...] 2=Hypo 3=Akinetic 4=Dyskin./Aneurysm 0=Not visualized) Parasternal Long [place]:MAS=1 BAS=1 MIL=1 ESTUARDO=1 Parasternal Short [place]:MAS=1 MIS=1 NE=1 MIL=1 MAL=1 MA=1 Apical 4 Chambers:=1 MIS=1 BIS=1 BAL=1 MAL=1 AL=1 AC=1 Apical 2 Chambers:AI=1 NE=1 BI=1 BA=1 MA=1 AA=1 AC=1 LV Global [...] MD By signing this report, the attending grain trader certifies that he or she has personally [...] 05/11/2022 documented in this encounter Care Teams Horticulturalist Relationship Specialty Start Date End Date Mehul Verdugo MD [address] [facility] [address] [place] [address] PCP - General Internal Medicine 09/10/21 Paulette Geller MD [address] [place] [address] Consulting Physician Gastroenterology 05/22/21 documented as of this encounter
--- OUTSIDE RECORDS SUMMARY | 2024-03-13 23:58 | XMS_ITS | Encounter Summary ---
Author Organization [facility] Healthcare Address [address] [place] [address] Care Team Providers Care Furniture Painter Name Role Phone Paulette Geller MD Unavailable + Mehul Verdugo MD Primary Care Provider [phone] Reason for Visit * Auth/Cert (Routine) Specialty Diagnoses / Procedures Referred By Cata t Referred To Contact Referral ID Status Reason Start Date Expiration Date Visits Re quested Visits Authorized [id number] 1 60 Encounter Details Date Type Department Care Team (Late st Contact Info) Description 01/04/2023 1:30 PM PRODUCTION MINER Home Care Visit [facility] [address] [address] [address] [place] [address] Bradley Mota, EDD SN HOME VISIT Social [...] on file Legal Sex Female 11:30 PM PRODUCTION MINER Gender Identity Female 06/15/2023 1:45 PM CDT Sexual Orientation Straight 06/15/2023 1: 45 PM CDT documented as of this encounter Last Filed Vital Signs Vital Sign Reading Time Taken Comments Blood Pressure 128/64 01/04/2023 1:30 AM PRODUCTION MINER Pulse 78 01/04/2023 1:30 AM PRODUCTION MINER Temperature 36.7 ??C (98 ??F) 01/04/2023 1:30 AM PRODUCTION MINER Respiratory Rate 18 01/04/2023 1:30 AM PRODUCTION MINER Oxygen Saturation 98% 01/04/2023 1:30 AM PRODUCTION MINER Inhaled Oxygen Concentration - - Weight - - Height - - Body Mass Index - - documented in this encounter Miscellaneous Notes * Home Health Visit Narrative - Bradley Mota RN - 01/04/2023 1:56 PM PRODUCTION MINER Assessed patient. Educated on s/s of infection, fall prevention, and who to call in the event of decline in health or emergency. UCTION MINER documented in this encounter Plan of Treatment [...] home health visit Disciplines: SN, PT, OT, TRAFFIC MANAGER, COIL BUILDER, Skilled Disciplines Monitor patient's vital signs every [...] visit during episode of care Description: Home calculus professor to measure vital signs during every home [...] Completed documented in this encounter Care Teams Furniture Painter Relationship Specialty Start Date End Date Mehul Verdugo MD [address] [facility] [address] [place] [address] PCP - General Internal Medicine 09/10/21 Paulette Geller MD [address] [place] [address] Consulting Physician Gastroenterology 05/22/21 documented as of this encounter
--- OUTSIDE RECORDS SUMMARY | 2024-03-13 23:58 | XMS_ITS | Encounter Summary ---
Author Organization [facility] Healthcare Address [address] [place] [address] Care Team Providers Care Industrial Machinery Mechanic Name Role Phone Paulette Geller MD Unavailable + Mehul Verdugo MD Primary Care Provider [phone] Encounter Details Date Type Department Care Team (Late st Contact Info) Description 04/20/2022 12:00 PM RECORDIST CHIEF [facility] [address] [place] [address] Nonrheumatic mitral valve regurgitation Social [...] on file Legal Sex Female 11:30 PM RECORDIST CHIEF Gender Identity Female 06/15/2023 1:45 PM CDT Sexual Orientation Straight 06/15/2023 1: 45 PM CDT documented as of this encounter Plan of Treatment Not on file documented as of this encounter Procedures Procedure Name Priority Date/Time Associated Diagnosis Comments EGFR Routine 04/20/2022 12:04 PM RECORDIST CHIEF Nonrheumatic mitral valve regurgitation DIFFERENTIAL AUTO Routine 04/20/2022 12: 04 PM RECORDIST CHIEF Nonrheumatic mitral valve regurgitation PRO B-TYPE NATRIURETIC PEPTIDE Routine 04/20/2022 12:04 PM RECORDIST CHIEF Nonrheumatic mitral valve regurgitation CBC WITH AUTO DIFFERENTIAL Routine 04/20/2022 12:04 PM RECORDIST CHIEF Nonrheumatic mitral valve regurgitation BASIC METABOLIC PANEL Routine 04/20/2022 12:04 PM RECORDIST CHIEF Nonrheumatic mitral valve regurgitation documented in this encounter Results * (ABNORMAL) eGFR (04/20/2022 12:04 PM RECORDIST CHIEF) eGFR 42(L) 90 - 130 mL/min/1. 73 [...] reviewed 2020. Blood 04/20/2022 12:0 4 PM RECORDIST CHIEF 04/20/2022 1:57 PM RECORDIST CHIEF us Sp Madrid MD LAB BLOOD ORDERABLES Final Res ult [facility] Department [place] [address] * Differential, auto (04/20/2022 12:04 PM RECORDIST CHIEF) Neutrophil abs 5.1 1.7 - 6.5 K/cumm [facility] Imm gran abs 0.0 0.0 - 0.1 K/cumm [facility] Lymphocyte abs 1.7 0.8 - 3.3 K/cumm [facility] Monocyte abs 0.5 0.2 - 0.8 K/cumm [facility] Eosinophil abs 0.1 0.0 - 0.5 K/cumm [facility] Basophil abs 0.1 0.0 - 0.1 K/cumm [facility] Neutrophil pct 67.9 % [facility] Comment: Interpretive Data Percent cell count reference ranges are not reported, since discordance with absolute values may lead to misinterpretation of CBC data. Current Interpretive Data was last revised on 2017. Imm gran pct 0.3 % [facility] Comment: Interpretive Data Percent cell count reference ranges are not reported, since discordance with absolute values may lead to misinterpretation of CBC data. Current Interpretive Data was last revised on 2017. Lymphocyte pct 23.3 % [facility] Comment: Interpretive Data Percent cell count reference ranges are not reported, since discordance with absolute values may lead to misinterpretation of CBC data. Current Interpretive Data was last revised on 2017. Monocyte pct 6.1 % [facility] Comment: Interpretive Data Percent cell count reference ranges are not reported, since discordance with absolute values may lead to misinterpretation of CBC data. Current Interpretive Data was last revised on 2017. Eosinophil pct 1.3 % [facility] Comment: Interpretive Data Percent cell count reference ranges are not reported, since discordance with absolute values may lead to misinterpretation of CBC data. Current Interpretive Data was last revised on 2017. Basophil pct 1.1 % [facility] Comment: Interpretive Data Percent cell count reference ranges are not reported, since discordance with absolute values may lead to misinterpretation of CBC data. Current Interpretive Data was last revised on 2017. Blood 04/20/2022 12:0 4 PM RECORDIST CHIEF 04/20/2022 1:47 PM RECORDIST CHIEF us Sp Madrid MD LAB BLOOD ORDERABLES Final Res ult [facility] Department [place] [address] * (ABNORMAL) Basic metabolic panel (04/20/2022 12:04 PM RECORDIST CHIEF) Sodium 137 135 - 145 mmol/L [facility] Potassium, pl 5.1(H) 3.3 - 4.9 mmol/L [facility] Chloride 100 97 - 110 mmol/L [facility] CO2 28 22 - 32 mmol/L [facility] Anion gap 9 2 - 15 mmol/L [facility] BUN 25 8 - 25 mg/dL [facility] Creatinine 1.26(H) 0.60 - 1.10 mg/dL [facility] Glucose 338(H) 70 - 199 mg/dL [facility] Comment: Interpretive Data Fasting glucose >/= [...] 2022. Calcium 9.4 8.5 - 10.3 mg/dL [facility] Blood 04/20/2022 12:0 4 PM RECORDIST CHIEF 04/20/2022 1:47 PM RECORDIST CHIEF us Sp Madrid MD LAB BLOOD ORDERABLES Final Res ult Performing Organization Address [facility] Co de Phone Number [facility] Department [place] [address] * (ABNORMAL) CBC with auto differential (04/20/2022 12:04 PM RECORDIST CHIEF) WBC 7.5 3.8 - 9.9 K/cumm [facility] Hgb 13.0 11.9 - 15.5 g/dL [facility] Hct 41.5 35.6 - 45.5 % [facility] Plt 172 150 - 400 K/cumm [facility] MPV 12.4(H) 9.1 - 12.3 fL [facility] RBC 4.75 3.90 - 5.20 M/cumm [facility] MCV 87.4 81.3 - 96.4 fL [facility] MCH 27.4 27.1 - 33.3 pg [facility] MCHC 31.3(L) 32.3 - 35.7 g/dL [facility] RDW CV 12.9 11.1 - 14.9 % [facility] RDW SD 41.0 35.7 - 48.1 fL [facility] NRBC abs 0.00 0.00 - 0.01 K/cumm [facility] Blood 04/20/2022 12:0 4 PM RECORDIST CHIEF 04/20/2022 1:47 PM RECORDIST CHIEF us Sp Madrid MD LAB BLOOD ORDERABLES Final Res ult Performing Organization Address City/[facility]/ZIP Co de Phone Number [facility] Department [place] [address] * (ABNORMAL) Pro B-type natriuretic peptide (04/20/2022 12:04 PM RECORDIST CHIEF) NT-proBNP 810(H) <=450 pg/mL [facility] Comment: Interpretive Comments: A. Dyspnea in Acute [...] Date: 2017. Blood 04/20/2022 12:0 4 PM RECORDIST CHIEF 04/20/2022 1:47 PM RECORDIST CHIEF us Sp Madrid MD LAB BLOOD ORDERABLES Final Res ult [facility] Department [place] [address] documented in this encounter Visit Diagnoses Diagnosis Nonrheumatic mitral valve regurgitation documented in this encounter Care Teams Industrial Machinery Mechanic Relationship Specialty [place] [address] [place] [address] [address] [place] [address] PCP - General Internal Medicine 09/10/21 Paulette Geller MD [address] [place] [address] Consulting Physician Gastroenterology 05/22/21 documented as of this encounter
--- OUTSIDE RECORDS SUMMARY | 2024-03-13 23:58 | XMS_ITS | Encounter Summary ---
Author Organization [facility] Healthcare Address [address] [place] [address] Care Team Providers Care Lens Block Gauger Name Role Phone Paulette Geller MD Unavailable + Mehul Verdugo MD Primary Care Provider [phone] Reason for Visit * Auth/Cert (Routine) Specialty Diagnoses / Procedures Referred By Cata t Referred To Contact Referral ID Status Reason Start Date Expiration Date Visits Re quested Visits Authorized [id number] 1 60 Encounter Details Date Type Department Care Team (Latest Contact Info) Description 12/15/2022 1:45 PM CDT Home Care Visit [facility] [address] [address] [address] [place] [address] Bradley Mota RN SN OASIS START OF [...] file 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 Gender Identity Female 06/15/2023 1:45 PM CDT [...] Advanced SOC Assessment Date: 2022-12-15 00:00:00 Branch: [facility] Home Care Coding Notes: Please review onset/exacerbation [...] -SN OASIS Start o f Care Discipline -Long Term Problems Problem Description Start Date Status Goals Interve ntions Homebound Status Disciplines: Skilled Disciplines Patient's homebound status 12/15/2022 Active 1 goal linked to scheduled/documen soraida intervention 1 goal intervention scheduled/documen soraida in this visit Monitor patient's vital signs every home health visit Disciplines: SN, PT, OT, BROACHER, MICROELECTRONICS TECHNICIAN, Skilled Disciplines Monitor patient's vital signs every [...] this visit Disease Management - Diabetes Disciplines: Long Term Management of diabetes symptoms 12/15/2022 Active 1 goal linked to scheduled/documen soraida intervention 3 goal interventions scheduled/documen soraida in this visit Learning/Teachin g Needs - Insulin Management Disciplines: Long Term Lack of knowledge related to insulin management 12/15/2022 Active 1 goal linked to scheduled/documen soraida intervention 1 goal intervention scheduled/documen soraida in this visit Problems with Coping - Diabetes Disciplines: Long Term Problems related to coping with home management of diabetes 12/15/2022 Active 1 goal linked to scheduled/documen soraida intervention 1 goal intervention scheduled/documen soraida in this visit Learning/Teachin g Needs - Diabetes Disciplines: Long Term Learning and teaching needs associated with diagnosis [...] visit during episode of care Description: Home self propelled mining machine operator to measure vital signs during every [...] Completed documented in this encounter Care Teams Lens Block Gauger Relationship Specialty Start Date End Date Mehul Verdugo MD [address] [facility] [address] [place] [address] PCP - General Internal Medicine 09/10/21 Paulette Geller MD [address] [place] [address] Consulting Physician Gastroenterology 05/22/21 documented as of this encounter
--- OUTSIDE RECORDS SUMMARY | 2024-03-13 23:58 | XMS_ITS | Encounter Summary ---
Author Organization [facility] Address [address] [place] [address] Care Team Providers Care Cnc Manager Name Role Phone Paulette Geller MD Unavailable + Mehul Verdugo MD Primary Care Provider [phone] Reason for Visit * Reason Onset Date Comments Blood Sugar Problem 12/08/2022 Encounter Details Date Type Department Care Team (Late st Contact Info) Description 12/08/2022 [facility] [address] [facility] [address] [facility] [address] [place] [id number] Mehul Verdugo MD [address] [facility] [address] [place] [address] Blood Sugar Problem Social History [...] on file 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
--- OUTSIDE RECORDS SUMMARY | 2024-03-13 23:58 | XMS_ITS | Encounter Summary ---
Author Organization [facility] Address [address] [place] [address] Care Team Providers Care Rn Case Manager Name Role Phone Paulette Geller MD Unavailable + Mehul Verdugo MD Primary Care Provider Reason for Visit * Auth/Cert (Routine) Specialty Diagnoses / Procedures Referred By Cata t Referred To Contact Referral ID Status Reason Start Date Expiration Date Visits Re quested Visits Authorized [id number] 1 60 Encounter Details Date Type Department Care Team (Late st Contact Info) Description 12/15/2022 Home Care Visit [facility] [address] [place] [address] [address] [place] [address] Bradley Mota, RN SBAR-START OF [...] on file 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 Gender Identity Female 06/15/2023 1:45 PM CDT Sexual Orientation Straight 06/15/2023 1: 45 PM CDT documented as of this encounter Plan of Treatment Not on file documented as of this encounter Visit Diagnoses Not on filedocumented in this encounter Care Teams Rn Case Manager Relationship Specialty Start Date End Date Mehul Verdugo MD [address] [facility] [address] [place] [address] PCP - General Internal Medicine 09/10/21 Paulette Geller MD [address] [place] [address] Consulting Physician Gastroenterology 05/22/21 documented as of this encounter
--- OUTSIDE RECORDS SUMMARY | 2024-03-13 23:59 | XMS_ITS | Encounter Summary ---
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
--- OUTSIDE RECORDS SUMMARY | 2024-03-13 23:59 | XMS_ITS | Encounter Summary ---
Author Organization [facility] Address [address] [place] [address] Phone Care Team Providers Care Wordpress Developer Name Role Phone Paulette Geller MD Unavailable + Mehul Verdugo MD Primary Care Provider [phone] Reason for Referral * Consultation (Routine) - Closed Specialty Diagnoses / Procedures Referred By Contac t Referred To Contact Cardiology Diagnoses Nonrheumatic mitral valve regurgitation Mehul Verdugo MD [address] [place] [address] Phone: tel: fax: [facility] (All Locations) Referral ID Status Reason Start Date Expiration Date V isits Requested Visits Authorized [id number] Closed Specialty Services Required 11/16/2021 12/16/2022 12 Question Answer Please select the performing region: [facility] (All Locations) [167] # of visits: 1 Reason for Visit * Consultation (Routine) - Closed Specialty Diagnoses / Procedures Referred By Contac t Referred To Contact Cardiology Diagnoses Nonrheumatic mitral valve regurgitation Mehul Verdugo MD [address] [facility] [address] [place] [address] Phone: tel: fax: [facility] (All Locations) Referral ID Status Reason Start Date Expiration Date V isits Requested Visits Authorized [id number] Closed Specialty Services Required 11/16/2021 12/16/2022 12 Encounter Details Date Type Department Care Team (Latest Contact Info) Description 11/30/2021 10:15 AM CDT Office Visit [facility] Cardiology [address] [facility] [address] [place] [address] Sp Madrid MD [address] [facility] [address] [place] [address] Nonrheumatic mitral valve regurgitation (Primary Dx) Social [...] on file Legal Sex Female 11:30 PM AWS SOLUTION ARCHITECT Gender Identity Female 06/15/2023 1:45 PM [...] mouth 2 (two) times a day with [id number] tablet 1 Eliquis 2.5 mg tablet Take [...] regarding her cardiac problems. Damien Norton MD poll watcher Cardiology Division [facility] documented in this encounter Plan of Treatment Scheduled Referrals Name Type Priority Associated Diagnoses Orde r Schedule Ambulatory referral to Cardiology Outpatient Referral Routine Nonrheumatic mitral valve regurgitation Expected: 11/30/2021 (Approximate), Expires: 11/16/2022 documented as of this encounter Visit Diagnoses Diagnosis Nonrheumatic mitral valve regurgitation- Primary documented in this encounter Care Teams Wordpress Developer Relationship Specialty Start Date End Date Mehul Verdugo MD [address] [facility] [address] [place] [address] PCP - General Internal Medicine 09/10/21 Paulette Geller MD [address] [place] [address] Consulting Physician Gastroenterology 05/22/21 documented as of this encounter
--- OUTSIDE RECORDS SUMMARY | 2024-03-13 23:59 | XMS_ITS | Encounter Summary ---
Author Organization [facility] Address [address] [place] [address] Care Team Providers Care Line Leader Name Role Phone Paulette Geller MD Unavailable + Mehul Verdugo MD Primary Care Provider [phone] Reason for Visit * Reason Comments New Patient Anxiety Hypertension Hyperlipidemia Diabetes Sleeping Problem Encounter Details Date Type Department Care Team (Late st Contact Info) Description 09/10/2021 10:00 AM CDT Office Visit [place] [facility] [address] [facility] [address] [place] [address] Mehul Verdugo MD [address] [facility] [address] [place], [place] [id number] Type 2 diabetes mellitus without complication, without [...] on file 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 Gender Identity Female 06/15/2023 1:45 PM [...] without long-term current use of insulin ([facility]) ([facility]) (E11.9) (Primary) Comments: a1c is at target, continue rx Orders: - POCT glucose - POCT hemoglobin A1c Hyperlipidemia, unspecified hyperlipidemia type (E78.5) Comments: lipid reviewed, at target, doing well Orders: - POCT lipid panel Dyslipidemia (E78.5) HTN (hypertension), benign (I10) Comments: doing well Pulmonary hypertension ([facility]) ([facility]) (I27.20) S/P mitral valve repair (Z98.890) Comments: per cardiology, on eliquis 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?01 - [facility] ??[id number] C++ Quant Developer: Axel Hillman PhD, Phone: ??[phone] Mehul Verdugo MD LAB BLOOD ORDERABLES Final Re sult Performing Organization Address [facility] Co de Phone Number [facility] * TSH (09/10/2021 11:28 AM CDT) TSH 3.420 0.450 - 4.500 uIU/mL [facility] - 01 Blood specimen (specimen) 09/10/2021 11:28 AM CDT 09/10/2021 Narrative [facility] - 09/11/2021 11:10 AM CDT Performed at: ?? [facility] ??[id number] C++ Quant Developer: Axel Hillman PhD, Phone: ??[phone] Mehul Verdugo MD LAB BLOOD ORDERABLES Final Re sult Performing Organization Address City/[facility]/ZIP Co de Phone Number [facility] - 01 * Microalbumin, urine, random (09/10/2021 11:28 AM CDT) Pathologist [facility] Microalbumin, ur <3.0 Not Estab. ug/mL [facility] - 01 Comment:Verified by repeat analysis Urine 09/10/2021 11:2 8 AM CDT 09/10/2021 Narrative [facility] - 09/11/2021 11:10 AM CDT Performed at: ?? - [facility] [address] ??[id number] C++ Quant Developer: Axel Hillman PhD, Phone: ??[phone] us Mehul Verdugo MD LAB URINE ORDERABLES Final Re [facility] Performing Organization Address [facility] Co de Phone Number [facility] - * (ABNORMAL) Comprehensive metabolic panel (09/10/2021 11:28 AM CDT) Pathologist [facility] Glucose 120(H) 65 - 99 mg/dL [facility] [...] AM CDT Performed at: ??01 - [facility] [address] ??[id number] C++ Quant Developer: Axel Hillman PhD, Phone: ??[phone] us Mehul Verdugo MD LAB BLOOD ORDERABLES [...] due to occlusion of other cerebral artery ([facility]) Primary insomnia Persistent disorder of initiating or maintaining sleep Age-related osteoporosis without current pathological fracture documented in this encounter Discontinued Medications Medication Sig Discontinue Reason Start Date End Da te zolpidem (AMBIEN) 10 mg tabletIndications:Sleep- Onset Insomnia Take 10 mg by mouth nightly as needed for sleep Therapy completed 09/10/2021 documented as of this encounter Care Teams Line Leader Relationship Specialty Start Date End Date Mehul Verdugo MD [address] [place] [address] [address] [place] [address] PCP - General Internal Medicine 09/10/21 Paulette Geller MD [address] [place] [address] Consulting Physician Gastroenterology 05/22/21 documented as of this encounter
--- OUTSIDE RECORDS SUMMARY | 2024-03-13 23:59 | XMS_ITS | Encounter Summary ---
Author Organization [facility] Address [address] [place] [address] Care Team Providers Care Chest Pain Coordinator Name Role Phone Paulette Geller MD Unavailable + Mehul Verdugo MD Primary Care Provider [phone] Reason for Referral * Diagnostic Imaging (Routine) - Closed Specialty Diagnoses / Procedures Referred By Cata quintanilla Referred To Contact Diagnoses Cough, unspecified type Procedures XR Chest Pa Lateral 2 Vw Mehul Verdugo MD [address] [facility] [address] [place] [address] Phone: tel: fax: [facility] [address] [place] [address] Referral ID Status Reason Start Date Expiration Date Visits Re quested Visits Authorized [id number] Closed 01/19/2022 02/18/2023 1 1 TER CASE MANAGER Reason for Visit * Reason Comments Diabetes Hyperlipidemia Hypertension Cough Encounter Details Date Type Department Care Team (Late st Contact Info) Description 01/19/2022 11:00 AM SHELTER CASE MANAGER Office Visit [place] [facility] [address] [facility] [address] [place] [address] Mehul Verdugo MD [address] [facility] [address] [place] [address] Type 2 diabetes mellitus without complication, without [...] on file 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 Gender Identity Female 06/15/2023 1:45 PM CDT Sexual Orientation Straight 06/15/2023 1: 45 PM CDT documented as of this encounter Last Filed Vital Signs Vital Sign Reading Time Taken Comments Blood Pressure 205/90 01/19/2022 11:30 AM SHELTER CASE MANAGER Pulse 69 01/19/2022 11:30 AM SHELTER CASE MANAGER Temperature - - Respiratory Rate - - Oxygen Saturation - - Inhaled Oxygen Concentration - - Weight 67.1 kg (148 lb) 01/19/2022 11:30 AM SHELTER CASE MANAGER Height 154.9 cm (5' 1 ) 01/19/2022 11:30 AM SHELTER CASE MANAGER Body Mass Index 27.96 01/19/2022 11:30 AM SHELTER CASE MANAGER documented in this encounter Progress Notes [...] complication, without long-term current use of insulin ([facility]) ([facility]) (E11.9) (Primary) Comments: doing well Orders: - POCT glucose - POCT hemoglobin A1c Hyperlipidemia, unspecified hyperlipidemia type (E78.5) - POCT lipid panel Dyslipidemia (E78.5) HTN (hypertension), benign (I10) Pulmonary hypertension ([facility]) ([facility]) (I27.20) Comments: stable S/P mitral valve repair [...] 05/09/2021 UROBILINOGEN <2.0 05/09/2021 Mehul Verdugo MD TER CASE MANAGER documented in this encounter Plan of Treatment Not on file documented as of this encounter Procedures Procedure Name Priority Date/Time Associated Diagnosis Comments POCT GLUCOSE 85401 Routine 01/19/2022 12 :22 PM SHELTER CASE MANAGER Type 2 diabetes mellitus without complication, without long-term current use of insulin ([facility]/HCC) (HCC) POCT HEMOGLOBIN A1C Routine 01/19/2022 1 2:22 PM SHELTER CASE MANAGER Type 2 diabetes mellitus without complication, without long-term current use of insulin ([facility]) (HCC) POCT LIPID PANEL Routine 01/19/2022 12:2 2 PM SHELTER CASE MANAGER Hyperlipidemia, unspecified hyperlipidemia type documented in this encounter Results * XR Chest Pa Lateral 2 Vw (01/19/2022 1:37 PM SHELTER CASE MANAGER) Anatomical Region Laterality Modality Body, Chest N/A Computed Radiogr aphy 01/19/2022 2:40 PM SHELTER CASE MANAGER Impressions 01/19/2022 5:31 PM SHELTER CASE MANAGER The current study is compared with [...] Celso Martinez M.D. Narrative 01/19/2022 5:31 PM SHELTER CASE MANAGER EXAMINATION: 2 view chest radiograph Procedure [...] (ABNORMAL) POCT hemoglobin A1c (01/19/2022 12:22 PM SHELTER CASE MANAGER) Hemoglobin A1C, POC 7.3 Capillary blood 01/19/2022 1 2:22 PM SHELTER CASE MANAGER us Mehul Verdugo MD POINT OF CARE TEST ORDERABLES Final Result * POCT lipid panel (01/19/2022 12:22 PM SHELTER CASE MANAGER) Cholesterol, POC 192 mg/dL HDL, POC 51 mg/dL Triglycerides, POC 208 mg/dL LDL Cholesterol POC 100 mg/dL Capillary blood 01/19/2022 1 2:22 PM SHELTER CASE MANAGER us Mehul Verdugo MD POINT OF CARE TEST ORDERABLES Final Result * (ABNORMAL) POCT glucose (01/19/2022 12:22 PM SHELTER CASE MANAGER) Glucose Blood, POC 196 mg/dL Blood 01/19/2022 12:2 2 PM SHELTER CASE MANAGER Result Mary Verdugo MD POINT OF CARE TEST ORDERABLES Final Result documented in this encounter Visit Diagnoses Diagnosis Type 2 diabetes mellitus without complication, without long-term current use of insulin ([facility]) (HCC)- Primary Hyperlipidemia, unspecified hyperlipidemia type Dyslipidemia Other and unspecified hyperlipidemia HTN (hypertension), benign Essential hypertension, benign Pulmonary hypertension (HCC) Other chronic pulmonary heart diseases S/P mitral valve repair Other postprocedural status Tricuspid valve disorder Tricuspid valve disorders, specified as nonrheumatic Cough, unspecified type Cough, unspecified type documented in this encounter Care Teams Chest Pain Coordinator Relationship Specialty Start Date End Date Mehul Verdugo MD [address] [facility] [address] [place] [address] PCP - General Internal Medicine 09/10/21 Paulette Geller MD [address] [place] [address] Consulting Physician Gastroenterology 05/22/21 documented as of this encounter
--- OUTSIDE RECORDS SUMMARY | 2024-03-13 23:59 | XMS_ITS | Encounter Summary ---
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
--- OUTSIDE RECORDS SUMMARY | 2024-03-13 23:59 | XMS_ITS | Encounter Summary ---
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 73 m2 SHANTELL [...] MD LAB BLOOD ORDERABLES Final Re sult [facility] [address] [place] [address] * Differential, auto (05/15/2021 1:42 PM CDT) Neutrophil abs 6.0 1.7 - 6.5 K/cumm [facility] Imm gran abs 0.1 0.0 - 0.1 K/cumm [facility] Lymphocyte abs 1.1 0.8 - 3.3 K/cumm [facility] Monocyte abs 0.7 0.2 - 0.8 K[facility] Eosinophil abs 0.4 0.0 - 0.5 K[facility]cumm [facility] Basophil abs 0.0 0.0 - 0.1 K/cumm [facility] Neutrophil pct 73.1 % [facility] Comment: Interpretive [...] LAB BLOOD ORDERABLES Final Re sult [facility] [address] Department [place] [address] * (ABNORMAL) Comprehensive metabolic panel (05/15/2021 1:42 PM CDT) Pathologist [facility] Sodium 137 135 - 145 mmol/L [facility] [...] ORDERABLES Final Re sult Performing Organization Address [facility] Co de Phone Number SHANTELL GOLDSMITH [address] [place] [address] * (ABNORMAL) CBC with auto [...] ORDERABLES Final Re sult Performing Organization Address [facility]/ZIP Co de Phone Number SHANTELL GOLDSMITH [address] [place], [place] [phone] documented in this encounter Visit Diagnoses Diagnosis Non-intractable vomiting with nausea, unspecified vomiting type Elevated LFTs Other abnormal blood chemistry documented in this encounter Care Teams Processing Clerk Relationship Specialty Start Date End Date Haris Lauren MD PCP - General Family Medicine 12/31/20 06/07/21 documented as of this encounter
--- OUTSIDE RECORDS SUMMARY | 2024-03-13 23:59 | XMS_ITS | Encounter Summary ---
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
--- OUTSIDE RECORDS SUMMARY | 2024-03-13 23:59 | XMS_ITS | Encounter Summary ---
Author Organization [facility] Address [address] [place] [address] Care Team Providers Care Military Science Instructor Name Role Phone Paulette Geller MD Unavailable + Mehul Verdugo MD Primary Care Provider Encounter Details Date Type Department Care Team (Late st Contact Info) Description 01/27/2022 [facility] [address] [facility] [address] [place] [address] Mehul Verdugo MD [address] [facility] [address] [place] [address] Social History Tobacco Use Types [...] on file 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 Gender Identity Female 06/15/2023 1:45 PM CDT Sexual Orientation Straight 06/15/2023 1: 45 PM CDT documented as of this encounter Miscellaneous Notes * Telephone Encounter - Nella Markham MA - 01/27/2022 11:40 AM CST Pt aware/mk E SOURER * Telephone Encounter - Nella Markham MA - 01/27/2022 11:40 AM CST ----- Message from Mehul Verdugo MD sent at 01/24/2022 3:52 PM WHITE SOURER ----- No etiology for cough E SOURER documented in this encounter Plan of Treatment Not on file documented as of this encounter Visit Diagnoses Not on filedocumented in this encounter Care Teams Military Science Instructor Relationship Specialty [place] [address] [place] [address] [address] [place] [address] PCP - General Internal Medicine 09/10/21 Paulette Geller MD [address] [place] [address] Consulting Physician Gastroenterology 05/22/21 documented as of this encounter
--- OUTSIDE RECORDS SUMMARY | 2024-03-13 23:59 | XMS_ITS | Encounter Summary ---
Author Organization [facility] Healthcare Address [address] [place] [address] Care Team Providers Care Client Development Consultant Name Role Phone Paulette Geller MD Unavailable + Mehul Verdugo MD Primary Care Provider [phone] Reason for Referral * Diagnostic Imaging (Routine) - Closed Specialty Diagnoses / Procedures Referred By Cata t Referred To Contact Diagnoses Cough, unspecified type Procedures XR Chest Pa Lateral 2 Vw Mehul Verdugo MD [address] [address] Phone: tel: fax: [facility] [address] [place] [address] Referral ID Status Reason Start Date Expiration Date Visits Re quested Visits Authorized [id number] Closed 01/19/2022 02/18/2023 1 1 NG TRAINER Reason for Visit * Diagnostic Imaging (Routine) - Closed Specialty Diagnoses / Procedures Referred By Cata quintanilla Referred To Contact Diagnoses Cough, unspecified type Procedures XR Chest Pa Lateral 2 Vw Mehul Verdugo MD [address] [address] Phone: tel: fax: [facility] [address] [place] [address] Referral ID Status Reason Start Date Expiration Date Visits Re quested Visits Authorized [id number] Closed 01/19/2022 02/18/2023 1 1 Encounter Details Date Type Department Care Team (Latest Contact Info) Description 01/19/2022 1:27 PM BOXING TRAINER - 01/19/2022 11:59 PM BOXING TRAINER Hospital Encounter [facility] [address] [place] [id number] Cough, unspecified type Discharge Disposition: Discharge to [...] on file Legal Sex Female 11:30 PM BOXING 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 [place] to test blood sugar once daily [...] complication, without long-term current use of insulin ([facility]/HCC) (HCC) Take 1 tablet (100 mg total) [...] Read Routine (OP Routine) 01/19/2022 1:37 PM BOXING TRAINER Cough, unspecified type documented in this encounter Results * XR Chest Pa Lateral 2 Vw (01/19/2022 1:37 PM BOXING TRAINER) Anatomical Region Laterality Modality Body, Chest N/A Computed Radiogr aphy 01/19/2022 2:40 PM BOXING TRAINER Impressions 01/19/2022 5:31 PM BOXING TRAINER The current study is compared with the [...] Celso Martinez M.D. Narrative 01/19/2022 5:31 PM BOXING TRAINER EXAMINATION: 2 view chest radiograph Procedure Note [...] type documented in this encounter Care Teams Client Development Consultant Relationship Specialty Start Date End Date Mehul Verdugo MD [address] [facility] [address] [place] [address] PCP - General Internal Medicine 09/10/21 Paulette Geller MD [address] [place] [address] Consulting Physician Gastroenterology 05/22/21 documented as of this encounter
--- OUTSIDE RECORDS SUMMARY | 2024-03-13 23:59 | XMS_ITS | Encounter Summary ---
Author Organization [facility] Address [address] [place] [address] Care Team Providers Care Continuous Improvement Manager Name Role Phone Paulette Geller MD Unavailable + Mehul Verdugo MD Primary Care Provider [phone] Encounter Details Date Type Department Care Team (Late st Contact Info) Description 03/25/2022 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 H PIECER * Telephone Encounter - Melanie Wilkes MA - 03/25/2022 10:28 AM CST Discharge med list from [place] as follows: Keppra 500mg q 12 hours [...] hold medication until resumed by your primary H PIECER * Telephone Encounter - Mehul Verdugo MD - 03/25/2022 9:54 AM CST Lets do a full med rec. H PIECER * Telephone Encounter - Melanie Wilkes MA - 03/25/2022 9:15 AM CST Branden cantu calling [facility] med [facility] has the following on it Amlodipine 10mg Plavix 75mg Fenofibrate 160mg Pt does not have in the home She also takes asa and eliquis Phar gabet ashlee Otero [phone] [facility] documented in this encounter Plan of Treatment Not on file documented as of this encounter Visit Diagnoses Not on filedocumented in this encounter Discontinued Medications Medication Sig Discontinue Reason Start Date End Da te fenofibrate (TRIGLIDE) 160 mg tablet TAKE 1 TABLET EVERY DAY Reorder 07/13/2021 03/25/2022 documented as of this encounter Care Teams Continuous Improvement Manager Relationship Specialty Start Date End Date Mehul Verdugo MD [address] [facility] [address] [place] [address] PCP - General Internal Medicine 09/10/21 Paulette Geller MD [address] [place] [address] Consulting Physician Gastroenterology 05/22/21 documented as of this encounter
--- OUTSIDE RECORDS SUMMARY | 2024-03-13 23:59 | XMS_ITS | Encounter Summary ---
Author Organization [facility] Healthcare Address [address] [place] [address] Care Team Providers Care Rn Radiology Name Role Phone Braydon Lombardi MD Primary Care Provider [phone] Paulette Calderon MD Unavailable + Reason for Visit * Reason Comments Black or Bloody Stool Encounter Details Date Type Department Care Team (Late st Contact Info) Description 05/19/2021 3:43 PM CDT - 05/22/2021 12:06 PM CDT Emergency [facility] [address] [place] [address] Vic Farnsworth MD [address] [place] [address] Denzel Rai MD [address] [place] [address] Brant Mayorga MD [address] [place] [address] Bright red blood per rectum (Primary Dx); [...] on file 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 Gender Identity Female 06/15/2023 1:45 PM CDT [...] (TIA), AND CEREBRAL INFARCTION WITHOUT RESIDUAL DEFICI residential (current) use of anticoagulants - GEOGRAPHIC INFORMATION SYSTEMS MANAGER (CURRENT) USE OF ANTICOAGULANTS Long-term (current) use of anticoagulants 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 providers found Primary Care Physician at Discharge: Braydon Lombardi MD [phone] Admission Date: 05/19/2021 Discharge Date: 05/22/2021 Admission Location: [facility] Problems/Diagnoses: Principal Problem: Bright red blood per [...] PC 11/30/2021 10:15 AM Sp Madrid MD [facility] Cardiology 12/31/2021 11:00 AM Braydon Lombardi MD PCP EDW PC Contact Information for Follow-ups Braydon Lombardi MD Specialty: Family Medicine Relationship: PCP - General [facility] [address] [place] [address] Next Steps: Follow up Instructions: May 27 at 9:15 am Paulette Calderon MD Specialty: Gastroenterology, Internal Medicine Relationship: Consulting Physician Del SUMMERS [address] [facility] [address] Next Steps: Follow up Instructions: follow-up in 1 week and as scheduled. call for appointment. Questions: To provider: PAULETTE CALDERON Instructions for follow-up (appointment date and time): follow-up in 1 week and as scheduled. call for appointment. Braydon Lombardi MD Specialty: Family Medicine [address] [place] [address] [address] [facility] [address] Next Steps: Follow up Instructions: follow-up as [...] Age: 80 y.o. female Admit: 05/19/2021 Bed: [id number] Subjective Chief complaint: BRBPR Interval History: Patient [...] exam and parent/patient education. Brant Mayorga MD [facility] [phone] * Pee Berman, OT - 05/21/2021 9:55 [...] baseline Prior Function Prior Function Level of [place]: Independent with ADLs, Independent functional transfers, Independent [...] Age: 80 y.o. female Admit: 05/19/2021 Bed: [id number] Subjective Chief complaint: BRBPR Interval History: Patient [...] renal function ?? Chronic diastolic heart failure ([facility]) ([facility]) Assessment & Plan EF 69% but pseudonormal [...] pain ?? CVA (cerebral vascular accident) (CMS/HCC) ([facility]) Assessment & Plan On eliquis (CVA thought [...] patient coming from home Brant Mayorga MD [facility] [phone] * Nathalie Trimble, PT - 05/20/2021 10:40 [...] treatment team and contact the PT or PROFESSOR CRIMINAL JUSTICE currently assigned to this patient. If a physical therapy clinician is not assigned to this patient, please call [phone]. Assessment Assessment Problem List Comments: No acute [...] stated. Prior Function Prior Function Level of [place]: Independent functional transfers, Independent with ambulation Lives [...] step length Quality of Gait 1: decreased pauletet, step length, and step height; pt minimally [...] appropriate level of care when medically stable. manager publishing will continue to follow and assess for discharge needs. Primary Source of Transportation: Does the patient need discharge transport arranged?: No (05/20/21858) Health Insurance Coverage: [employer] Prescription Coverage: Yes Pharmacy: unsure Primary Care Provider: Braydon Lombardi MDverified Prior to Admission: Primary Caregiver: Self Support System: Spouse/Significant Other Support system contact info (name, phone, availablity): spouse, Pedrito Johnson [phone] and daughter, Azul Adams [phone] Home Care Services: No Durable Medical Equipment: [...] Collaboration with patient, MD, direct care nurse, Final Inspector Motorcyles, Nurse Coordinator and other members of the health care team to assure needed interventions completed. 2. Return patient to optimal level of self-care post discharge. 3. General Utility Maintenance Repairer will follow for Discharge Planning - interventions [...] are in agreement with the aftercare plan. Patricia Ellsworth RN * Brant Mayorga MD - 05/20/2021 8:35 AM CDT Daily Progress Note Division of Hospital Medicine Name: Yuliana Johnson Today: May 20, 2021 : 1940 Age: 80 y.o. female Admit: 05/19/2021 Bed: [id number] Subjective Chief complaint: BRBPR Interval History: Patient [...] patient coming from home Brant Mayorga MD [facility] [phone] documented in this encounter H&P Notes * [...] have reviewed and summarized above findings from [facility] Everywhere. Past Medical History: Diagnosis [...] Clear to auscultation in all lung salazar, unlabored, trachea midline Cardiovascular: RRR, normal S1 [...] avoid nephrotoxins Chronic diastolic heart failure (CMS/HCC) ([facility]) Assessment & Plan EF 69% but pseudonormal [...] abd pain CVA (cerebral vascular accident) (CMS/HCC) ([facility]) Assessment & Plan On eliquis (CVA thought [...] she's here but endorses not feeling well. [facility] stroke 2019, but said she does not [...] renal function Chronic diastolic heart failure (CMS/HCC) ([facility]) EF 69% but pseudonormal diastolic function on [...] abd pain CVA (cerebral vascular accident) (CMS/HCC) ([facility]) On eliquis (CVA thought to be embolic [...] please call the GI Fellow General Call [facility] phone number available on [employer]. Ifthe patient has been discharged, please call the gastroenterology appointments line at [phone] for questions regarding clinic/procedures follow up. Maude [...] * Plan of Care - Allegra Galeana, ASPHALT ROLLER OPERATOR - 05/20/2021 8:27 AM CDT Patient is [...] Glucose, POC 112 70 - 199 mg/dL [facility] Blood 05/22/2021 11:1 7 AM CDT 05/22/2021 11:17 AM CDT Brant Mayorga MD LAB POCT ORDERABLES - DEVICE Fi nal Result Performing Organization Address [facility] Co de Phone Number [facility] Department [place] [place] [address] * POCT glucose (05/22/2021 7:44 AM CDT) [facility] Glucose, POC 86 70 - 199 mg/dL [facility] Blood 05/22/2021 7:44 AM CDT 05/22/2021 7:44 AM CDT Brant Mayorga MD LAB POCT ORDERABLES - DEVICE Fi nal Result Performing Organization Address [facility] Co de Phone Number [facility] Department [place] [place] [address] * (ABNORMAL) eGFR (05/22/2021 4:58 AM CDT) [facility] eGFR 71(L) 90 - 130 mL/min/1. 73 m2 B[facility] [...] MD PhD LAB BLOOD ORDERABLES Final Result [facility] Department [place] [address] * (ABNORMAL) Differential, auto (05/22/2021 4:58 AM CDT) Neutrophil abs 5.5 1.7 - 6.5 K/cumm [facility] Imm gran abs 0.2(H) 0.0 - 0.1 K/cumm [facility] Lymphocyte abs 3.1 0.8 - 3.3 K/cumm [facility] Monocyte abs 0.9(H) 0.2 - 0.8 K/cumm [facility] Eosinophil abs 0.7(H) 0.0 - 0.5 K/cumm [facility] Basophil abs 0.2(H) 0.0 - 0.1 K/cumm [facility] Neutrophil pct 52.5 % [facility] Comment: Interpretive Data Percent cell count reference ranges are not reported, since discordance with absolute values may lead to misinterpretation of CBC data. Current Interpretive Data was last revised on 2017. Imm gran pct 1.5 % [facility] Comment: Interpretive Data Percent cell count reference ranges are not reported, since discordance with absolute values may lead to misinterpretation of CBC data. Current Interpretive Data was last revised on 2017. Lymphocyte pct 29.8 % [facility] Comment: Interpretive Data Percent cell count reference ranges are not reported, since discordance with absolute values may lead to misinterpretation of CBC data. Current Interpretive Data was last revised on 2017. Monocyte pct 8.3 % [facility] Comment: Interpretive Data Percent cell count reference ranges are not reported, since discordance with absolute values may lead to misinterpretation of CBC data. Current Interpretive Data was last revised on 2017. Eosinophil pct 6.2 % [facility] Comment: Interpretive Data Percent cell count reference ranges are not reported, since discordance with absolute values may lead to misinterpretation of CBC data. Current Interpretive Data was last revised on 2017. Basophil pct 1.7 % [facility] Comment: Interpretive Data Percent cell count reference ranges are not reported, since discordance with absolute values may lead to misinterpretation of CBC data. Current Interpretive Data was last revised on 2017. Blood 05/22/2021 4:58 AM CDT 05/22/2021 5:22 AM CDT us Cintia Dey MD PhD LAB BLOOD ORDERABLES Final Result [facility] Department [place] [address] * (ABNORMAL) Basic metabolic panel (05/22/2021 4:58 AM CDT) Sodium 142 135 - 145 mmol/L [facility] Potassium, pl 4.1 3.3 - 4.9 mmol/L [facility] Chloride 113(H) 97 - 110 mmol/L [facility] CO2 21(L) 22 - 32 mmol/L [facility] Anion gap 8 2 - 15 mmol/L [facility] BUN 8 8 - 25 mg/dL [facility] Creatinine 0.82 0.60 - 1.10 mg/dL [facility] Glucose 88 70 - 199 mg/dL [facility] [...] 2017. Calcium 8.6 8.5 - 10.3 mg/dL [facility] Blood 05/22/2021 4:58 AM CDT 05/22/2021 5:22 AM CDT us Cintia Dey MD PhD LAB BLOOD ORDERABLES Final Result [facility] Department [place] [address] * (ABNORMAL) CBC with auto differential (05/22/2021 4:58 AM CDT) WBC 10.4(H) 3.8 - 9.9 K/cumm [facility] Hgb 10.7(L) 11.9 - 15.5 g/dL [facility] Hct 33.4(L) 35.6 - 45.5 % [facility] Plt 363 150 - 400 K/cumm [facility] MPV 9.9 9.1 - 12.[address] [facility] RBC 3.76(L) 3.90 - 5.20 M/cumm [facility] MCV 88.8 81.3 - 96.[address] [facility] MCH 28.5 27.1 - 33.[address] [facility] MCHC 32.0(L) 32.3 - 35.7 g/dL [facility] RDW CV 14.1 11.1 - 14.9 % [facility] RDW SD 45.9 35.7 - 48.[address] [facility] NRBC abs 0.00 0.00 - 0.01 K/cumm [facility] Blood 05/22/2021 4:58 AM CDT 05/22/2021 5:22 AM CDT us Cintia Dey MD PhD LAB BLOOD ORDERABLES Final Result Performing Organization Address City/[facility]/ZIP Co de Phone Number [facility] Department [place] [address] * POCT glucose (05/21/2021 8:00 PM CDT) Pathologist [facility] Glucose, POC 139 70 - 199 mg/dL [facility] Blood 05/21/2021 8:00 PM CDT 05/21/2021 8:00 PM CDT Brant Mayorga MD LAB POCT ORDERABLES - DEVICE Fi nal Result Performing Organization Address City/[facility] Co de Phone Number [facility] Department [place] [address] * Differential, auto (05/21/2021 4:50 PM CDT) [facility] Neutrophil abs 6.3 1.7 - 6.5 K/cumm [facility] Imm gran abs 0.1 0.0 - 0.1 K/cumm [facility] Lymphocyte abs 2.1 0.8 - 3.3 K/cumm [facility] Monocyte abs 0.8 0.2 - 0.8 K/cumm [facility] Eosinophil abs 0.5 0.0 - 0.5 K/cumm [facility] Basophil abs 0.1 0.0 - 0.1 K/cumm [facility] Neutrophil pct 63.4 % [facility] Comment: Interpretive Data Percent cell count reference ranges are not reported, since discordance with absolute values may lead to misinterpretation of CBC data. Current Interpretive Data was last revised on 2017. Imm gran pct 1.1 % [facility] Comment: Interpretive Data Percent cell count reference ranges are not reported, since discordance with absolute values may lead to misinterpretation of CBC data. Current Interpretive Data was last revised on 2017. Lymphocyte pct 21.4 % [facility] Comment: Interpretive Data Percent cell count reference ranges are not reported, since discordance with absolute values may lead to misinterpretation of CBC data. Current Interpretive Data was last revised on 2017. Monocyte pct 7.7 % [facility] Comment: Interpretive Data Percent cell count reference ranges are not reported, since discordance with absolute values may lead to misinterpretation of CBC data. Current Interpretive Data was last revised on 2017. Eosinophil pct 5.0 % [facility] Comment: Interpretive Data Percent cell count reference ranges are not reported, since discordance with absolute values may lead to misinterpretation of CBC data. Current Interpretive Data was last revised on 2017. Basophil pct 1.4 % [facility] Comment: Interpretive Data Percent cell count reference ranges are not reported, since discordance with absolute values may lead to misinterpretation of CBC data. Current Interpretive Data was last revised on 2017. Blood 05/21/2021 4:50 PM CDT 05/21/2021 5:08 PM CDT us Cintia Dey MD PhD LAB BLOOD ORDERABLES Final Result [facility] Department [place] [address] * (ABNORMAL) CBC with auto differential (05/21/2021 4:50 PM CDT) WBC 9.9 3.8 - 9.9 K/cumm [facility] Hgb 11.3(L) 11.9 - 15.5 g/dL [facility] Hct 36.1 35.6 - 45.5 % [facility] Plt 391 150 - 400 K/cumm [facility] MPV 9.7 9.1 - 12.[address] [facility] RBC 4.00 3.90 - 5.20 M/cumm [facility] MCV 90.3 81.3 - 96.[address] [facility] MCH 28.3 27.1 - 33.[address] [facility] MCHC 31.3(L) 32.3 - 35.7 g/dL [facility] RDW CV 14.2 11.1 - 14.9 % [facility] RDW SD 46.9 35.7 - 48.[address] [facility] NRBC abs 0.00 0.00 - 0.01 K/cumm [facility] Blood 05/21/2021 4:50 PM CDT 05/21/2021 5:08 PM CDT us Cintia Dey MD PhD LAB BLOOD ORDERABLES Final Result Performing Organization Address City/[facility] Co de Phone Number [facility] [place] [employer] [place] [address] * POCT glucose (05/21/2021 4:49 PM CDT) Glucose, POC 127 70 - 199 mg/dL [facility] Blood 05/21/2021 4:49 PM CDT 05/21/2021 4:49 PM CDT Brant Mayorga MD LAB POCT ORDERABLES - DEVICE Fi nal Result Performing Organization Address [facility] Co de Phone Number [facility] Department [place] [address] * POCT glucose (05/21/2021 10:38 AM CDT) Glucose, POC 110 70 - 199 mg/dL [facility] Blood 05/21/2021 10:3 8 AM CDT 05/21/2021 10:38 AM CDT Brant Mayorga MD LAB POCT ORDERABLES - DEVICE Fi nal Result Performing Organization Address [facility] Co de Phone Number [facility] [place] [address] * POCT glucose (05/21/2021 7:43 AM CDT) Glucose, POC 84 70 - 199 mg/dL [facility] Blood 05/21/2021 7:43 AM CDT 05/21/2021 7:43 AM CDT us Brant Mayorga MD LAB POCT ORDERABLES - DEVICE Fi nal Result [facility] Department [place] [address] * (ABNORMAL) Differential, auto (05/21/2021 5:25 AM CDT) Pathologist [facility] Neutrophil abs 5.2 1.7 - 6.5 K/cumm [facility] Imm gran abs 0.1 0.0 - 0.1 K/cumm [facility] Lymphocyte abs 2.8 0.8 - 3.3 K/cumm [facility] Monocyte abs 0.8 0.2 - 0.8 K/cumm [facility] Eosinophil abs 0.7(H) 0.0 - 0.5 K/cumm [facility] Basophil abs 0.1 0.0 - 0.1 K/cumm [facility] Neutrophil pct 53.3 % [facility] Comment: Interpretive Data Percent cell count reference ranges are not reported, since discordance with absolute values may lead to misinterpretation of CBC data. Current Interpretive Data was last revised on 2017. Imm gran pct 1.3 % [facility] Comment: Interpretive Data Percent cell count reference ranges are not reported, since discordance with absolute values may lead to misinterpretation of CBC data. Current Interpretive Data was last revised on 2017. Lymphocyte pct 28.7 % [facility] Comment: Interpretive Data Percent cell count reference ranges are not reported, since discordance with absolute values may lead to misinterpretation of CBC data. Current Interpretive Data was last revised on 2017. Monocyte pct 8.3 % [facility] Comment: Interpretive Data Percent cell count reference ranges are not reported, since discordance with absolute values may lead to misinterpretation of CBC data. Current Interpretive Data was last revised on 2017. Eosinophil pct 7.0 % [facility] Comment: Interpretive Data Percent cell count reference ranges are not reported, since discordance with absolute values may lead to misinterpretation of CBC data. Current Interpretive Data was last revised on 2017. Basophil pct 1.4 % [facility] Comment: Interpretive Data Percent cell count reference ranges are not reported, since discordance with absolute values may lead to misinterpretation of CBC data. Current Interpretive Data was last revised on 2017. Blood 05/21/2021 5:25 AM CDT 05/21/2021 5:32 AM CDT us Cintia Dey MD PhD LAB BLOOD ORDERABLES Final Result [facility] Department [place] [address] * (ABNORMAL) CBC with auto differential (05/21/2021 5:25 AM CDT) WBC 9.7 3.8 - 9.9 K/cumm [facility] Hgb 10.9(L) 11.9 - 15.5 g/dL [facility] Hct 33.8(L) 35.6 - 45.5 % [facility] Plt 367 150 - 400 K/cumm [facility] MPV 9.5 9.1 - 12.[address] [facility] RBC 3.82(L) 3.90 - 5.20 M/cumm [facility] MCV 88.5 81.3 - 96.[address] [facility] MCH 28.5 27.1 - 33.[address] [facility] MCHC 32.2(L) 32.3 - 35.7 g/dL [facility] RDW CV 14.2 11.1 - 14.9 % [facility] RDW SD 46.0 35.7 - 48.[address] [facility] NRBC abs 0.02(H) 0.00 - 0.01 K/cumm [facility] Blood 05/21/2021 5:25 AM CDT 05/21/2021 5:32 AM CDT us Cintia Dey MD PhD LAB BLOOD ORDERABLES Final Result Performing Organization Address [facility] de Phone Number [facility] Department [place] [address] * (ABNORMAL) eGFR (05/21/2021 3:39 AM CDT) eGFR 74(L) 90 - 130 mL/min/1. 73 m2 [facility] [...] BLOOD ORDERABLES Final Result Performing Organization Address [facility]/State/ZIP Co de Phone Number [facility] Department [place] [address] * (ABNORMAL) Basic metabolic panel (05/21/2021 3:39 AM CDT) Sodium 142 135 - 145 mmol/L [facility] Potassium, pl 4.1 3.3 - 4.9 mmol/L [facility] Chloride 114(H) 97 - 110 mmol/L [facility] CO2 22 22 - 32 mmol/L [facility] Anion gap 6 2 - 15 mmol/L [facility] BUN 6(L) 8 - 25 mg/dL [facility] Creatinine 0.80 0.60 - 1.10 mg/dL [facility] Glucose 86 70 - 199 mg/dL [facility] [...] 2017. Calcium 8.3(L) 8.5 - 10.3 mg/dL [facility] Blood 05/21/2021 3:39 AM CDT 05/21/2021 3:59 AM CDT us Cintia Dey MD PhD LAB BLOOD ORDERABLES Final Result [facility] Department [place] [address] * POCT glucose (05/20/2021 7:50 PM CDT) Glucose, POC 112 70 - 199 mg/dL [facility] Blood 05/20/2021 7:50 PM CDT 05/20/2021 7:50 PM CDT us Denzel Rai MD LAB POCT ORDERABLES - DEVICE Fin al Result [facility] Department [place] [address] * Differential, auto (05/20/2021 4:47 PM CDT) Neutrophil abs 4.9 1.7 - 6.5 K/cumm [facility] Imm gran abs 0.1 0.0 - 0.1 K/cumm [facility] Lymphocyte abs 2.1 0.8 - 3.3 K/cumm [facility] Monocyte abs 0.6 0.2 - 0.8 K/cumm [facility] Eosinophil abs 0.5 0.0 - 0.5 K/cumm [facility] Basophil abs 0.1 0.0 - 0.1 K/cumm [facility] Neutrophil pct 58.3 % [facility] Comment: Interpretive Data Percent cell count reference ranges are not reported, since discordance with absolute values may lead to misinterpretation of CBC data. Current Interpretive Data was last revised on 2017. Imm gran pct 1.1 % [facility] Comment: Interpretive Data Percent cell count reference ranges are not reported, since discordance with absolute values may lead to misinterpretation of CBC data. Current Interpretive Data was last revised on 2017. Lymphocyte pct 25.3 % [facility] Comment: Interpretive Data Percent cell count reference ranges are not reported, since discordance with absolute values may lead to misinterpretation of CBC data. Current Interpretive Data was last revised on 2017. Monocyte pct 7.5 % [facility] Comment: Interpretive Data Percent cell count reference ranges are not reported, since discordance with absolute values may lead to misinterpretation of CBC data. Current Interpretive Data was last revised on 2017. Eosinophil pct 6.4 % [facility] Comment: Interpretive Data Percent cell count reference ranges are not reported, since discordance with absolute values may lead to misinterpretation of CBC data. Current Interpretive Data was last revised on 2017. Basophil pct 1.4 % [facility] Comment: Interpretive Data Percent cell count reference ranges are not reported, since discordance with absolute values may lead to misinterpretation of CBC data. Current Interpretive Data was last revised on 2017. Blood 05/20/2021 4:47 PM CDT 05/20/2021 5:02 PM CDT us Cintia Dey MD PhD LAB BLOOD ORDERABLES Final Result Performing Organization Address City/[facility]/ZIP Co de Phone Number [facility] Department [place] [address] * POCT glucose (05/20/2021 4:47 PM CDT) [facility] Glucose, POC 105 70 - 199 mg/dL [facility] Blood 05/20/2021 4:47 PM CDT 05/20/2021 4:47 PM CDT us Denzel Rai MD LAB POCT ORDERABLES - DEVICE Fin al Result Performing Organization Address [facility] Co de Phone Number [facility] Department [place] [address] * (ABNORMAL) CBC with auto differential (05/20/2021 4:47 PM CDT) [facility] WBC 8.4 3.8 - 9.9 K/cumm [facility] Hgb 10.9(L) 11.9 - 15.5 g/dL [facility] Hct 33.9(L) 35.6 - 45.5 % [facility] Plt 363 150 - 400 K/cumm [facility] MPV 9.6 9.1 - 12.[address] [facility] RBC 3.82(L) 3.90 - 5.20 M/cumm [facility] MCV 88.7 81.3 - 96.[address] [...] K/cumm [facility] Blood 05/20/2021 4:47 PM CDT 05/20/2021 5:02 PM CDT Cintia Dey MD PhD LAB BLOOD ORDERABLES Final Result [facility] [place] [address] * POCT glucose (05/20/2021 11:36 AM CDT) Glucose, POC 121 70 - 199 mg/dL [facility] Blood 05/20/2021 11:3 6 AM CDT 05/20/2021 11:36 AM CDT Result [facility] Denzel Rai MD LAB POCT ORDERABLES - DEVICE Fin al Result Performing Organization Address City/[facility] Co de Phone Number [facility] Department [place] [address] * POCT glucose (05/20/2021 8:38 AM CDT) Glucose, POC 91 70 - 199 mg/dL [facility] Blood 05/20/2021 8:38 AM CDT 05/20/2021 8:38 AM CDT Denzel Rai MD LAB POCT ORDERABLES - DEVICE Fin al Result Performing Organization Address City/[facility] Co de Phone Number [facility] [place] [address] * (ABNORMAL) eGFR (05/20/2021 5:39 AM CDT) eGFR 61(L) 90 - 130 mL/min/1. 73 m2 B[facility] [...] MD PhD LAB BLOOD ORDERABLES Final Result [facility] Department [place] [address] * (ABNORMAL) Differential, auto (05/20/2021 5:39 AM CDT) [facility] Neutrophil abs 4.4 1.7 - 6.5 K/cumm [facility] Imm gran abs 0.1 0.0 - 0.1 K/cumm [facility] Lymphocyte abs 1.8 0.8 - 3.3 K/cumm [facility] Monocyte abs 0.7 0.2 - 0.8 K/cumm [facility] Eosinophil abs 0.6(H) 0.0 - 0.5 K/cumm [facility] Basophil abs 0.1 0.0 - 0.1 K/cumm [facility] Neutrophil pct 57.1 % [facility] Comment: Interpretive Data Percent cell count reference ranges are not reported, since discordance with absolute values may lead to misinterpretation of CBC data. Current Interpretive Data was last revised on 2017. Imm gran pct 1.5 % [facility] Comment: Interpretive Data Percent cell count reference ranges are not reported, since discordance with absolute values may lead to misinterpretation of CBC data. Current Interpretive Data was last revised on 2017. Lymphocyte pct 23.6 % [facility] Comment: Interpretive Data Percent cell count reference ranges are not reported, since discordance with absolute values may lead to misinterpretation of CBC data. Current Interpretive Data was last revised on 2017. Monocyte pct 8.6 % [facility] Comment: Interpretive Data Percent cell count reference ranges are not reported, since discordance with absolute values may lead to misinterpretation of CBC data. Current Interpretive Data was last revised on 2017. Eosinophil pct 7.9 % [facility] Comment: Interpretive Data Percent cell count reference ranges are not reported, since discordance with absolute values may lead to misinterpretation of CBC data. Current Interpretive Data was last revised on 2017. Basophil pct 1.3 % [facility] Comment: Interpretive Data Percent cell count reference ranges are not reported, since discordance with absolute values may lead to misinterpretation of CBC data. Current Interpretive Data was last revised on 2017. Blood 05/20/2021 5:39 AM CDT 05/20/2021 5:58 AM CDT us Cintia Dey MD PhD LAB BLOOD ORDERABLES Final Result [facility] Department [place] [address] * (ABNORMAL) Basic metabolic panel (05/20/2021 5:39 AM CDT) Pathologist [facility] Sodium 144 135 - 145 mmol/L [facility] Potassium, pl 4.5 3.3 - 4.9 mmol/L [facility] Comment:Hemolyzed; Potassium value may be falsely elevated by as much as 0.3-0.5 mmol/L. Suggest redraw and reanalysis. Chloride 115(H) 97 - 110 mmol/L [facility] CO2 22 22 - 32 mmol/L [facility] Anion gap 7 2 - 15 mmol/L [facility] BUN 9 8 - 25 mg/dL [facility] Creatinine 0.94 0.60 - 1.10 mg/dL [facility] Glucose 106 70 - 199 mg/dL [facility] [...] 2017. Calcium 8.3(L) 8.5 - 10.3 mg/dL [facility] Blood 05/20/2021 5:39 AM CDT 05/20/2021 5:58 AM CDT us Cintia Dey MD PhD LAB BLOOD ORDERABLES Final Result [facility] Department [place] [address] * (ABNORMAL) CBC with auto differential (05/20/2021 5:39 AM CDT) Pathologist [facility] WBC 7.8 3.8 - 9.9 K/cumm [facility] Hgb 10.3(L) 11.9 - 15.5 g/dL [facility] Hct 32.7(L) 35.6 - 45.5 % [facility] Plt 339 150 - 400 K/cumm [facility] MPV 9.6 9.1 - 12.[address] [facility] RBC 3.62(L) 3.90 - 5.20 M/cumm [facility] MCV 90.3 81.3 - 96.[address] [facility] MCH 28.5 27.1 - 33.[address] [facility] MCHC 31.5(L) 32.3 - 35.7 g/dL [facility] RDW CV 14.4 11.1 - 14.9 % [facility] RDW SD 47.9 35.7 - 48.[address] [facility] NRBC abs 0.00 0.00 - 0.01 K/cumm [facility] Blood 05/20/2021 5:39 AM CDT 05/20/2021 5:58 AM CDT us Cintia Dey MD PhD LAB BLOOD ORDERABLES Final Result [facility] [place] [place] [address] * POCT glucose (05/19/2021 8:43 PM CDT) [facility] Glucose, POC 82 70 - 199 mg/dL [facility] Blood 05/19/2021 8:43 PM CDT 05/19/2021 8:43 PM CDT us Vic Farnsworth MD LAB POCT ORDERABLES - DEVICE F inal Result [facility] [place] [address] * Influenza A/B, RSV, and COVID-19 PCR Nasopharyngeal (05/19/2021 6:35 PM CDT) [facility] COVID-19 RNA Negative Negative [facility] Influenza A RNA Negative Negative [facility] Influenza B RNA Negative Negative [facility] RSV RNA Negative Negative [facility] Comment: Interpretive data: Testing performed by [facility] ([phone]). This test is performed using the [employer] Xpert Xpress CoV-2/Flu/RSV plus assay. This is a multiplex, real-time reverse transcriptase PCR assay intended for the qualitative detection of nucleic acid from SARS-CoV-2, influenza A, influenza B, and respiratory syncytial virus. This assay has been reviewed by the FDA for Emergency Use Authorization (EUA). The performance characteristics have been verified by the [facility]. Results must be considered in the clinical context, and a negative result does not rule out infection. Interpretive Data last revised 2021. First COVID-19 test? No [facility] Employeed in healthcare? No [facility] status? No [facility] Group care resident? No [facility] Hospitalized? No [facility] Is patient in ICU? No [facility] Symptomatic as defined by CDC? No [facility] Nasopharyngeal 05/19/2021 6: 35 PM CDT 05/19/2021 6:44 PM CDT Narrative [facility] - 05/19/2021 7:25 PM CDT Reason for testing?->Bed placement or semi-private room Known exposure to confirmed or suspected COVID-19 case?->No Ana Mosquera MD LAB MICROBIOLOGY - GENERAL ORDERABLES Final Result Performing Organization Address City/State/[facility] Co de Phone Number [facility] Department [place] [address] * POCUS Cardiac (05/19/2021 5:28 PM CDT) [...] and screen (05/19/2021 4:23 PM CDT) Pathologist [facility] Ramón, indirect Negative [facility] Comment:Patient has previous antibody history ABO Rh O Negative [facility] Blood 05/19/2021 4:23 PM CDT 05/19/2021 4:34 PM CDT Narrative [facility] - 05/19/2021 5:23 PM CDT Has the patient had Daratumumab or Isatuximab in the past 6 months?->Unknown us Ana Mosquera MD LAB BLOOD BANK TEST ORDERA BLES Final Result [facility] Department [place] [address] * (ABNORMAL) eGFR (05/19/2021 4:08 PM CDT) Pathologist [facility] eGFR 56(L) 90 - 130 mL/min/1. 73 m2 BON [...] Mosquera MD LAB BLOOD ORDERABLES Final Result [facility] Department [place] [address] * (ABNORMAL) Differential, auto (05/19/2021 4:08 PM CDT) Neutrophil abs 4.6 1.7 - 6.5 K/cumm [facility] Imm gran abs 0.1 0.0 - 0.1 K/cumm [facility] Lymphocyte abs 2.1 0.8 - 3.3 K/cumm [facility] Monocyte abs 0.6 0.2 - 0.8 K/cumm [facility] Eosinophil abs 0.6(H) 0.0 - 0.5 K/cumm [facility] Basophil abs 0.1 0.0 - 0.1 K/cumm [facility] Neutrophil pct 56.6 % [facility] Comment: Interpretive Data Percent cell count reference ranges are not reported, since discordance with absolute values may lead to misinterpretation of CBC data. Current Interpretive Data was last revised on 2017. Imm gran pct 1.5 % [facility] Comment: Interpretive Data Percent cell count reference ranges are not reported, since discordance with absolute values may lead to misinterpretation of CBC data. Current Interpretive Data was last revised on 2017. Lymphocyte pct 25.5 % [facility] Comment: Interpretive Data Percent cell count reference ranges are not reported, since discordance with absolute values may lead to misinterpretation of CBC data. Current Interpretive Data was last revised on 2017. Monocyte pct 7.2 % [facility] Comment: [...] Mosquera MD LAB BLOOD ORDERABLES Final Result [facility] Department [place] [address] * Heparin anti factor Xa activity (05/19/2021 4:08 PM CDT) [facility] Anti Factor Xa 1.70 IUnits/mL [facility] [...] BLOOD ORDERABLES Final Result Performing Organization Address [facility] [place] [address] * aPTT (05/19/2021 4:08 PM CDT) aPTT 33 27 - [address] [facility] Comment: Interpretive Data Therapeutic heparin range: 60.0 - 94.0 seconds. Based on correlation with therapeutic heparin activity range of 0.3-0.7 Units/mL. Current interpretive data was last revised on 2020. Blood 05/19/2021 4:08 PM CDT 05/19/2021 4:19 PM CDT Result [facility] Ana Mosquera MD LAB BLOOD ORDERABLES Final Result Performing Organization Address [facility] [place] [address] * (ABNORMAL) Protime-INR (05/19/2021 4:08 PM CDT) PT 20.2(H) 9.5 - 13.[address] [facility] INR 1.8(H) 0.9 - 1.[address] [facility] Comment: Interpretive data Oral anticoagulant therapeutic ranges: Venous thromboembolism prophylaxis or treatment: 2.0-3.0 CARDIOLOGY Standard range: 2.0-3.0 High-intensity range: 2.5-3.5 Refer to indication-specific guidelines for appropriate target ranges for prosthetic heart valve replacement. Current interpretive data was last revised on 2019. Blood 05/19/2021 4:08 PM CDT 05/19/2021 4:19 PM CDT us Ana Mosquera MD LAB BLOOD ORDERABLES Final Result [facility] Department [place] [address] * (ABNORMAL) Comprehensive metabolic panel (05/19/2021 4:08 PM CDT) Sodium 139 135 - 145 mmol/L [facility] Potassium, pl 4.5 3.3 - 4.9 mmol/L [facility] Chloride 109 97 - 110 mmol/L [facility] CO2 21(L) 22 - 32 mmol/L [facility] Anion gap 9 2 - 15 mmol/L [facility] BUN 8 8 - 25 mg/dL [facility] Creatinine 1.01 0.60 - 1.10 mg/dL [facility] Glucose 134 70 - 199 mg/dL [facility] [...] 2017. Calcium 8.3(L) 8.5 - 10.3 mg/dL [facility] Bilirubin, total 0.3 0.1 - 1.2 mg/dL [facility] Protein, pl 6.7 6.5 - 8.5 g/dL [facility] Albumin 3.3(L) 3.5 - 5.0 g/dL [facility] Alk phos 67 40 - 130 Units/L [facility] ALT 32 7 - 45 Units/L [facility] AST 27 10 - 45 Units/L [facility] Blood 05/19/2021 4:08 PM CDT 05/19/2021 4:15 PM CDT Ana Mosquera MD LAB BLOOD ORDERABLES Final Result Performing Organization Address City/[facility]/ZIP Co de Phone Number [facility] Department [place] [address] * (ABNORMAL) CBC with auto differential (05/19/2021 4:08 PM CDT) WBC 8.2 3.8 - 9.9 K/cumm [facility] Hgb 11.4(L) 11.9 - 15.5 g/dL [facility] Hct 36.2 35.6 - 45.5 % [facility] Plt 366 150 - 400 K/cumm [facility] MPV 9.7 9.1 - 12.[address] [facility] RBC 3.99 3.90 - 5.20 M/cumm [facility] MCV 90.7 81.3 - 96.[address] [facility] MCH 28.6 27.1 - 33.[address] [facility] MCHC 31.5(L) 32.3 - 35.7 g/dL [facility] RDW CV 14.3 11.1 - 14.9 % [facility] RDW SD 47.6 35.7 - 48.[address] [facility] NRBC abs 0.00 0.00 - 0.01 K/cumm [facility] Blood 05/19/2021 4:08 PM CDT 05/19/2021 4:16 PM CDT Ana Mosquera MD LAB BLOOD ORDERABLES Final Result [facility] Department [place] [address] * POCT glucose (05/19/2021 3:53 PM CDT) Glucose, POC 120 70 - 199 mg/dL [facility] Blood 05/19/2021 3:53 PM CDT 05/19/2021 3:53 PM CDT us Notinfile Unknown LAB POCT ORDERABLES - DEVICE F inal Result [facility] Department [place] [address] * (ABNORMAL) ECG 12-LEAD (05/19/2021 3:50 PM CDT) Narrative [facility] - 05/19/2021 3:50 PM CDT Vic Farnsworth [...] risk of ACS Vic Farnsworth MD 05/19/21 [id number] [place] Mckenna MD ECG ORDERABLES Final Re sult [facility] documented in this encounter Visit Diagnoses [...] Call MD for each episode of hypoglycemia. EQUIPMENT OPERATOR WAREHOUSE STATES GLUTOSE-15 CONTAINS GLUCOSE 40% W/W (50% [...] mcg 62.5 mcg (1 puff), inhalation, Daily (correspondence representative), First dose on Tue05/20/21 at 0800 Given [...] (CANCELED) 62.5 mcg (1 puff), inhalation, Daily (correspondence representative), First dose on Tue05/20/21 at 0800 0824 (Given - Provider: Allegra Galeana, ASPHALT ROLLER OPERATOR) umeclidinium (INCRUSE ELLIPTA) 62.5 mcg/actuation inhaler 62.5 [...] Call MD for each episode of hypoglycemia. EQUIPMENT OPERATOR WAREHOUSE STATES GLUTOSE-15 CONTAINS GLUCOSE 40% W/W (50% [...] Call MD for each episode of hypoglycemia. EQUIPMENT OPERATOR WAREHOUSE STATES GLUTOSE-15 CONTAINS GLUCOSE 40% W/W (50% [...] 05/19/2021 documented in this encounter Care Teams Rn Radiology Relationship Specialty Start Date End Date Braydon Lombardi MD PCP - General Family Medicine 12/31/20 06/07/21 Paulette Calderon MD [address] [facility] [address] [place] [address] Consulting Physician Gastroenterology 05/22/21 documented as of this encounter
--- OUTSIDE RECORDS SUMMARY | 2024-03-13 23:59 | XMS_ITS | Encounter Summary ---
Author Organization [facility] Address [address] [place] [address] Care Team Providers Care Supervisor Phosphorus Processing Name Role Phone Paulette Geller MD Unavailable + Mehul Verdugo MD Primary Care Provider Encounter Details Date Type Department Care Team (Late st Contact Info) Description 04/01/2022 [facility] [address] [facility] [address] [place] [facility] [place] [address] Mehul Verdugo MD [address] [facility] [address] [place] [address] Weakness (Primary Dx) Social History [...] on file 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 Gender Identity Female 06/15/2023 1:45 PM CDT Sexual Orientation Straight 06/15/2023 1: 45 PM CDT documented as of this encounter Plan of Treatment Not on file documented as of this encounter Visit Diagnoses Diagnosis Weakness- Primary Other malaise and fatigue documented in this encounter Care Teams Supervisor Phosphorus Processing Relationship Specialty Start Date End Date Mehul Verdugo MD [address] [facility] [address] [place] [address] PCP - General Internal Medicine 09/10/21 Paulette Geller MD [address] [place] [address] Consulting Physician Gastroenterology 05/22/21 documented as of this encounter
--- OUTSIDE RECORDS SUMMARY | 2024-03-13 23:59 | XMS_ITS | Encounter Summary ---
Author Organization [facility] Address [address] [place] [address] Care Team Providers Care Steam Clothes Press Operator Name Role Phone Paulette Geller MD Unavailable + Mehul Verdugo MD Primary Care Provider [phone] Reason for Visit * Reason Onset Date Comments Spoke With Home Health Provider 03/24/2022 Encounter Details Date Type Department Care Team (Late st Contact Info) Description 03/24/2022 [facility] [address] [place] [id number] Mehul Verdugo MD [address] [facility] [address] [place] [address] Spoke With Home Health Provider [...] file 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 WELL FISHING TOOL TECHNICIAN documented in this encounter Plan of Treatment Not on file documented as of this encounter Visit Diagnoses Not on filedocumented in this encounter Care Teams Steam Clothes Press Operator Relationship Specialty Start Date End Date Mehul Verdugo MD [address] [facility] [address] [place] [address] PCP - General Internal Medicine 09/10/21 Paulette Geller MD [address] [place] [address] Consulting Physician Gastroenterology 05/22/21 documented as of this encounter
--- OUTSIDE RECORDS SUMMARY | 2024-03-13 23:59 | XMS_ITS | Encounter Summary ---
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 Lauren and is scheduled to see him today (05/14/21). Thank you * Telephone Encounter - Nova Handley RN - 05/14/2021 11:48 AM CDT Medicare/[employer] - called pt again and no answer- Nova Handley RN, BSN [facility] Renovation Plant Supervisor for High Risk [phone] * Telephone Encounter - Diane Reyes RN - 05/13/2021 3:36 PM CDT Please help schedule Hosp FU * Telephone Encounter - Nova Handley RN - 05/13/2021 1:[address] or Medicare- per [facility] notes: ER admit to [facility] and per [facility] notes: 05/09/21 and d/c 05/12/21- 80 [...] a voice message- Nova Handley RN, BSN [facility] Renovation Plant Supervisor for High Risk [phone] documented in this encounter Plan of Treatment Not on file documented as of this encounter Visit Diagnoses Not on filedocumented in this encounter Care Teams Gem Cutter Relationship Specialty Start Date End Date Haris Lauren MD PCP - General Family Medicine 12/31/20 06/07/21 documented as of this encounter
--- OUTSIDE RECORDS SUMMARY | 2024-03-13 23:59 | XMS_ITS | Encounter Summary ---
Author Organization [facility] Address [address] [address] Care Team Providers Care Executive Vp Name Role Phone Haris Lauren MD Primary Care Provider [phone] Paulette Geller MD Unavailable + Reason for Visit * Reason Comments Follow-up Pt is here for a hos pital f/u for abd pain and blood in stool Encounter Details Date Type Department Care Team (Late st Contact Info) Description 05/27/2021 9:15 AM CDT Office Visit [facility] at [address] [address] Haris Lauren MD [address] [address] HTN (hypertension), benign (Primary Dx); [...] on file 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 Was at [facility]. Discharged home. Finished antibiotics. No scopes done [...] anus documented in this encounter Care Teams Executive Vp Relationship Specialty Start Date End Date Haris Lauren MD PCP - General Family Medicine 12/31/20 06/07/21 Paulette Geller MD [address] [place] [address] Consulting Physician Gastroenterology 05/22/21 documented as of this encounter
--- OUTSIDE RECORDS SUMMARY | 2024-03-13 23:59 | XMS_ITS | Encounter Summary ---
Author Organization [facility] Address [address] [place] [address] Care Team Providers Care Data Governance Consultant Name Role Phone Paulette Geller MD Unavailable + Mehul Verdugo MD Primary Care Provider [phone] Reason for Visit * Reason Comments Hospital Follow Up syncope Encounter Details Date Type Department Care Team (Late st Contact Info) Description 03/17/2022 11:00 AM FITTER HELPER Office Visit [facility] [address] [facility] [address] [facility] [place] [id number] Michell Morris, PRASHANTH [address] [facility] [address] [place], [place] [id number] HTN (hypertension), benign (Primary Dx); Frequent falls [...] on file Legal Sex Female 11:30 PM FITTER HELPER Gender Identity Female 06/15/2023 1:45 PM CDT Sexual Orientation Straight 06/15/2023 1: 45 PM CDT documented as of this encounter Last Filed Vital Signs Vital Sign Reading Time Taken Comments Blood Pressure 174/90 03/17/2022 11:15 AM FITTER HELPER Pulse 77 03/17/2022 11:15 AM FITTER HELPER Temperature - - Respiratory Rate - - Oxygen Saturation 96% 03/17/2022 11:15 AM FITTER HELPER Inhaled Oxygen Concentration - - Weight 65.8 kg (145 lb) 03/17/2022 11:15 AM FITTER HELPER Height 154.9 cm (5' 1 ) 03/17/2022 11:15 AM FITTER HELPER Body Mass Index 27.4 03/17/2022 11:15 AM FITTER HELPER documented in this encounter Progress Notes * Michell Morris, WHITE METAL CORROSION PROOFER - 03/17/2022 11:00 AM CST Office Visit [...] 2021 A1C 7.3% 03/09/22 in ER at [place] for AMS and fall. Imaging and labs [...] 11 blood-glucose meter (True Metrix Glucose Meter) [facility] [place], Use to test blood sugar once daily [...] 90 tablet, Rfl: 3 lancets 33 gauge [facility], Use to test blood sugar once daily [...] No follow-ups on file. Michell Morris NP ER HELPER documented in this encounter Miscellaneous Notes * Assessment & Plan Note - Michell Morris NP - 03/17/2022 12:12 PM FITTER HELPER Associated Problem(s): Frequent falls Likely related to progressing dementia? (reviewed prior MRI and recent CT) Will refer to Home Health for SN/PT for blood pressure monitoring and balance/gait training ER HELPER * Assessment & Plan Note - Michell Morris NP - 03/17/2022 12:12 PM FITTER HELPER Associated Problem(s): HTN (hypertension), benign Encouraged to get home monitor and ensure she gets all medications Follows with Cardiology ER HELPER documented in this encounter Plan of [...] documented as of this encounter Care Teams Data Governance Consultant Relationship Specialty Start Date End Date Mehul Verdugo MD [address] [facility] [address] [place] [address] PCP - General Internal Medicine 09/10/21 Paulette Geller MD [address] [place] [address] Consulting Physician Gastroenterology 05/22/21 documented as of this encounter
--- OUTSIDE RECORDS SUMMARY | 2024-03-13 23:59 | XMS_ITS | Encounter Summary ---
Author Organization [facility] Address [address] [place] [address] Care Team Providers Care Basket Assembler Name Role Phone Paulette Geller MD Unavailable + Mehul Verdugo MD Primary Care Provider [phone] Encounter Details Date Type Department Care Team (Late st Contact Info) Description 03/29/2022 [facility] [address] [facility] [address] [place] [address] Mehul Verdugo MD [address] [facility] [address] [place] [address] Social History Tobacco Use Types [...] on file 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 - 03/29/2022 4:37 PM CST Spoke with Sherine and gave her directions. IDENT AND CHIEF COMMERCIAL OFFICER * Telephone Encounter - Abimbola Devi M.A. - 03/29/2022 10:16 AM CST HH calling regarding some med list changes from [facility] for possible TIA , they sent her [...] faxing over the med list as well. IDENT AND CHIEF COMMERCIAL OFFICER documented in this encounter Plan of Treatment Not on file documented as of this encounter Visit Diagnoses Not on filedocumented in this encounter Care Teams Basket Assembler Relationship Specialty Start Date End Date Mehul Verdugo MD [address] [facility] [address] [place] [address] PCP - General Internal Medicine 09/10/21 Paulette Geller MD [address] [place] [address] Consulting Physician Gastroenterology 05/22/21 documented as of this encounter
--- OUTSIDE RECORDS SUMMARY | 2024-03-13 23:59 | XMS_ITS | Encounter Summary ---
Author Organization [facility] Address [address] [place] [address] Care Team Providers Care Drop Shipment Clerk Name Role Phone Paulette Geller MD Unavailable + Mehul Verdugo MD Primary Care Provider [phone] Encounter Details Date Type Department Care Team (Late st Contact Info) Description 03/22/2022 [facility] [address] [facility] [address] [place] [address] Mehul Verdugo MD [address] [facility] [address] [place] [address] Social History Tobacco Use Types [...] on file Legal Sex Female 11:30 PM LOWERATOR OPERATOR Gender Identity Female 06/15/2023 1:45 PM CDT Sexual Orientation Straight 06/15/2023 1: 45 PM CDT documented as of this encounter Plan of Treatment Not on file documented as of this encounter Procedures Procedure Name Priority Date/Time Associated Diagnosis Comments CARDIOLOGY DOCUMENT SCAN 03/22/2022 6:30 PM LOWERATOR OPERATOR SCAN - RADIOLOGY/IMAGING 03/22/2022 1:32 PM LOWERATOR OPERATOR SCAN - RADIOLOGY/IMAGING 03/22/2022 1:27 PM LOWERATOR OPERATOR SCAN - RADIOLOGY/IMAGING 03/21/2022 2:11 PM LOWERATOR OPERATOR SCAN - RADIOLOGY/IMAGING 023 12:54 PM LOWERATOR OPERATOR documented in this encounter Results * CARDIOLOGY DOCUMENT SCAN (03/22/2022 6:30 PM LOWERATOR OPERATOR) Anatomical Region Laterality Modality Other us Mehul Verdugo MD CV CARDIAC SERVICES PROCEDURE S Final Result * SCAN - RADIOLOGY/IMAGING (03/22/2022 1:32 PM LOWERATOR OPERATOR) Anatomical Region Laterality Modality Other us Mehul Verdugo MD Final Result * SCAN - RADIOLOGY/IMAGING (03/22/2022 1:27 PM LOWERATOR OPERATOR) Anatomical Region Laterality Modality Other us Mehul Verdugo MD Final Result * SCAN - RADIOLOGY/IMAGING (03/21/2022 2:11 PM LOWERATOR OPERATOR) Anatomical Region Laterality Modality Other us Mehul Verdugo MD Final Result * SCAN - RADIOLOGY/IMAGING (03/21/2022 12:54 PM LOWERATOR OPERATOR) Anatomical Region Laterality Modality Other us Mehul Verdugo MD Final Result documented in this encounter Visit Diagnoses Not on filedocumented in this encounter Care Teams Drop Shipment Clerk Relationship Specialty Start Date End Date Mehul Verdugo MD [address] [facility] [address] [place] [address] PCP - General Internal Medicine 09/10/21 Paulette Geller MD [address] [place] [address] Consulting Physician Gastroenterology 05/22/21 documented as of this encounter
--- OUTSIDE RECORDS SUMMARY | 2024-03-13 23:59 | XMS_ITS | Encounter Summary ---
Author Organization [facility] Address [address] [place] [address] Phone Care Team Providers Care Director Maternal Child Name Role Phone Paulette Geller MD Unavailable + Mehul Verdugo MD Primary Care Provider [phone] Reason for Visit * Reason Onset Date Comments Appointment 03/09/2022 Fall 03/09/2022 Encounter Details Date Type Department Care Team (Late st Contact Info) Description 03/09/2022 Telephone [facility] Cardiology [address] 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 in [place] due to falling. Pt is needing a f/u. Please call. GE GROWER documented in this encounter Plan of Treatment Not on file documented as of this encounter Visit Diagnoses Not on filedocumented in this encounter Care Teams Director Maternal Child Relationship Specialty Start Date End Date Mehul Verdugo MD [address] [facility] [address] [place] [address] PCP - General Internal Medicine 09/10/21 Paulette Geller MD [address] [place] [address] Consulting Physician Gastroenterology 05/22/21 documented as of this encounter
--- OUTSIDE RECORDS SUMMARY | 2024-03-13 23:59 | XMS_ITS | Encounter Summary ---
Author Organization [facility] Address [address] [place] [address] Care Team Providers Care Senior Interaction Designer Name Role Phone Paulette Geller MD Unavailable + Mehul Verdugo MD Primary Care Provider [phone] Reason for Visit * Reason Onset Date Comments Insomnia 09/23/2021 Encounter Details Date Type Department Care Team (Late st Contact Info) Description 09/23/2021 [facility] [address] [facility] [address] [place] [address] Mehul Verdugo MD [address] [facility] [address] [place] [address] Insomnia Social History Tobacco Use [...] on file Legal 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
--- OUTSIDE RECORDS SUMMARY | 2024-03-13 23:59 | XMS_ITS | Encounter Summary ---
Author Organization [facility] Address [address] [place] [address] Care Team Providers Care Bioinformatics Developer Name Role Phone Paulette Geller MD Unavailable + Mehul Verdugo MD Primary Care Provider [phone] Reason for Visit * Reason Comments Hospital Follow Up [facility]. TIA Encounter Details Date Type Department Care Team (Late st Contact Info) Description 04/02/2022 10:45 AM SOLID FIBER PASTER OPERATOR Office Visit [facility] [address] [facility] [address] [place] [address] Liv Yi [address] [facility] [address] [place], [place] [id number] Hospital discharge follow-up (Primary Dx); Altered mental [...] on file Legal Sex Female 11:30 PM SOLID FIBER PASTER OPERATOR Gender Identity Female 06/15/2023 1:45 PM CDT Sexual Orientation Straight 06/15/2023 1: 45 PM CDT documented as of this encounter Last Filed Vital Signs Vital Sign Reading Time Taken Comments Blood Pressure 112/78 04/02/2022 11:00 AM SOLID FIBER PASTER OPERATOR Pulse 72 04/02/2022 11:00 AM SOLID FIBER PASTER OPERATOR Temperature - - Respiratory Rate - - Oxygen Saturation 99% 04/02/2022 11:00 AM SOLID FIBER PASTER OPERATOR Inhaled Oxygen Concentration - - Weight 63.5 kg (140 lb) 04/02/2022 11:00 AM SOLID FIBER PASTER OPERATOR Height 154.9 cm (5' 1 ) 04/02/2022 11:00 AM SOLID FIBER PASTER OPERATOR Body Mass Index 26.45 04/02/2022 11:00 AM SOLID FIBER PASTER OPERATOR documented in this encounter Patient Instructions * Patient Instructions* Liv Yi NP - 04/02/2022 10:45 AM SOLID FIBER PASTER OPERATOR Look to see if she is on a medication call Kecj (Levetiracetam). Then call the office and let us know the dose and how often she is taking the medication. Neurology has been consulted. D FIBER PASTER OPERATOR D FIBER PASTER OPERATOR D FIBER PASTER OPERATOR documented in this encounter Progress Notes [...] continue medication Chief Complaint Hospital Follow Up ([facility]. TIA) Vitals BP 112/78 (BP Location: Right [...] 11 blood-glucose meter (True Metrix Glucose Meter) [facility] [place] Use to test blood sugar once daily [...] BLOODUR Trace (A) 05/09/2021 UROBILINOGEN <2.0 05/09/2021 D FIBER PASTER OPERATOR documented in this encounter Plan of Treatment Not on file documented as of this encounter Visit Diagnoses Diagnosis Hospital discharge follow-up- Primary Other follow-up examination Altered mental status, unspecified altered mental status type HTN (hypertension), benign Essential hypertension, benign documented in this encounter Care Teams Bioinformatics Developer Relationship Specialty Start Date End Date Mehul Verdugo MD [address] [facility] [address] [place] [address] PCP - General Internal Medicine 09/10/21 Paulette Geller MD [address] [place] [address] Consulting Physician Gastroenterology 05/22/21 documented as of this encounter
--- OUTSIDE RECORDS SUMMARY | 2024-03-13 23:59 | XMS_ITS | Encounter Summary ---
Author Organization [facility] Address [address] [place] [address] Phone Care Team Providers Care Auto Winder Name Role Phone Haris Lauren MD Primary Care Provider [phone] Encounter Details Date Type Department Care Team (Latest Contact Info) Description 05/18/2021 9:30 AM CDT Office Visit 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 Damien Norton MD channel executive Cardiology Division [facility] documented in this encounter Plan of Treatment Not on file documented as of this encounter Visit Diagnoses Diagnosis Nonrheumatic mitral valve regurgitation- Primary Tricuspid valve disorder Tricuspid valve disorders, specified as nonrheumatic documented in this encounter Care Teams Auto Winder Relationship Specialty Start Date End Date Haris Lauren MD PCP - General Family Medicine 12/31/20 06/07/21 documented as of this encounter
--- OUTSIDE RECORDS SUMMARY | 2024-03-13 23:59 | XMS_ITS | Encounter Summary ---
Author Organization [facility] Address [address] [address] Care Team Providers Care Director Of Archives Name Role Phone Haris Lauren MD Primary Care Provider [phone] Encounter Details Date Type Department Care Team (Late st Contact Info) Description 05/19/[address] 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 * Telephone Encounter - Haris Lauren MD [...] filedocumented in this encounter Care Teams Director Of Archives Relationship Specialty Start Date End Date Haris Lauren MD PCP - General Family Medicine 12/31/20 06/07/21 documented as of this encounter
--- OUTSIDE RECORDS SUMMARY | 2024-03-13 23:59 | XMS_ITS | Encounter Summary ---
Author Organization [facility] Address [address] [address] Care Team Providers Care It Service Technician Name Role Phone Haris Lauren MD Primary Care Provider [phone] Reason for Visit * Reason Comments Follow-up Pt is here to f/u fr gallstone surgery at [place] on Tuesday. She had her first bowel movement today after 1 wk. Decreased appetite, vomiting. Encounter Details Date Type Department Care Team (Late st Contact Info) Description 05/14/2021 4:30 PM CDT Office Visit [facility] Primary Care at [address] [address] Haris Lauren MD [address] [address] Calculus of gallbladder without cholecystitis [...] Legal Sex Female 11:30 PM DIRECTOR OF HEALTHCARE SYSTEMS Gender Identity Female 06/15/2023 1:45 PM CDT [...] Edited by: Sandi Azar PA at 05/12/2021 1938 ?? Discharge Diagnosis(es): Abdominal pain ?? Secondary [...] lasix ?? CVA (cerebral vascular accident) (CMS/HCC) ([facility]) Assessment & Plan -Most likely [...] been provided to and reviewed with the patient/childcare aide prior to discharge. Haris Lauren MD Orders [...] LAB BLOOD ORDERABLES Final Re sult [facility] [address] [place] [address] * (ABNORMAL) Comprehensive metabolic panel (05/15/2021 1:42 [...] LAB BLOOD ORDERABLES Final Re sult [facility] [address] [place] [address] documented in this encounter Visit Diagnoses Diagnosis [...] documented as of this encounter Care Teams It Service Technician Relationship Specialty Start Date End Date Haris Lauren MD PCP - General Family Medicine 12/31/20 06/07/21 documented as of this encounter
--- OUTSIDE RECORDS SUMMARY | 2024-03-13 23:59 | XMS_ITS | Encounter Summary ---
Author Organization [facility] Address [address] [address] Care Team Providers Care Dental Insurance Coordinator Name Role Phone Haris Lauren MD Primary Care Provider [phone] Encounter Details Date Type Department Care Team (Late st Contact Info) Description 05/15/2021 1:[address] 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
--- OUTSIDE RECORDS SUMMARY | 2024-03-13 23:59 | XMS_ITS | Encounter Summary ---
Author Organization [facility] Address [address] [place] [address] Care Team Providers Care Lye Bath Operator Name Role Phone Paulette Geller MD Unavailable + Mehul Verdugo MD Primary Care Provider [phone] Encounter Details Date Type Department Care Team (Late st Contact Info) Description 09/25/2021 [facility] [address] [facility] [address] [place] [address] Mehul Verdugo MD [address] [facility] [address] [place] [address] Social History Tobacco Use Types [...] on file Legal Sex Female 11:30 PM HARDBOARD PRESS OPERATOR Gender Identity Female 06/15/2023 1:45 [...] on filedocumented in this encounter Care Teams Lye Bath Operator Relationship Specialty Start Date End Date Mehul Verdugo MD [address] [facility] [address] [place] [address] PCP - General Internal Medicine 09/10/21 Paulette Geller MD [address] [place] [address] Consulting Physician Gastroenterology 05/22/21 documented as of this encounter
--- OUTSIDE RECORDS SUMMARY | 2024-03-13 23:59 | XMS_ITS | Encounter Summary ---
Author Organization [facility] Healthcare Address [address] [place] [address] Care Team Providers Care Comb Fixer Name Role Phone Haris Lauren MD Primary Care Provider [phone] Reason for Visit * Reason Comments Abdominal Pain Encounter Details Date Type Department Care Team (Latest Contact Info) Description 05/09/2021 2:48 PM FIRE PREVENTION INSPECTOR - 05/12/2021 1:34 PM CDT Hospital Encounter [facility] [address] [place] [address] Anthony Beth MD [address] [facility] [address] [place] [address] Sheridan Haney MD [address] [place] [address] Stephanie Castelan MD [address] [place] [address] Michell Lucia MD [address] [facility] [phone] [place] [address] Abdominal pain (Primary Dx); Biliary calculus of [...] file Legal Sex Female 11:30 PM FIRE PREVENTION INSPECTOR Gender Identity Female 06/15/2023 1:45 PM [...] (134 lb 14.7 oz) 05/10/2021 1:45 AM FIRE PREVENTION INSPECTOR Height 154.9 cm (5' 0.98 ) 05/10/2021 1 2:30 AM FIRE PREVENTION INSPECTOR Body Mass Index 25.51 05/10/2021 12:30 AM FIRE PREVENTION INSPECTOR documented in this encounter Discharge Diagnoses Diagnosis [...] - AGE-RELATED OSTEOPOROSIS WITHOUT CURRENT PATHOLOGICAL FRACTURE 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 Voided overnight after agiular was removed aftercase. Cultures from OR as [...] on augmentin x4d Follow up: --Appointment: ACES PAY STATION COLLECTOR follow up Doximity phone call scheduled --Pathology/Cultures: [...] you have any questions/concerns please call the [facility] office at [phone] or if you have something urgent please [...] your blood thinner, Liliana, tomorrow (05/13) morning. [facility] Surgery Discharge Instructions Care [...] incisions (Neosporin or Vaseline) ??? Only take [id number] or prescription medicines for pain, discomfort, or [...] Up Call [facility] at [phone] Follow up Future Appointments Date Time Provider Department Center 05/18/2021 9:30 AM Sp Madrid MD [facility] Cardiology 05/27/2021 1:[address] [facility] ACCS PAY STATION COLLECTOR [facility] ACCS [facility] 07/01/2021 10:30 AM Haris Lauren MD [...] home. If needed, my mobile phone is [phone] * Michelle Hudson DPT - 05/12/2021 7:57 [...] setting. Prior Function Prior Function Level of [place]: Independent functional transfers, Independent with ambulation Lives With: Spouse Receives Help From: Spouse/Significant other, Family (multimedia specialist assist) Fall within the last 6 months: [...] treatment team and contact the PT or FOUNDRY WORKER currently assigned to this patient. If a physical therapy clinician is not assigned to this patient, please call [phone]. * Nancy Nelson MD - 05/11/2021 10:29 AM CDT ACCS Post Op Check Note Shavon Singh 1940 [id number] 80 y.o. female with PMH s/f T2DM, [...] Carbohydrate Diet effective now Question Answer Comment ([facility]) Diet type Clear Liquid ([facility]) Diet type Restricted Diabetic: Consistent Carbohydrate [...] Insurance Coverage: Medicare A & B and [facility] Prescription Coverage: yes Pharmacy: [facility] Primary Care Provider: Haris Lauren MD Prior to Admission: Primary Caregiver: Self Support System: Spouse/Significant Other Support system contact info (name, phone, availablity): greer Major [phone] Home Care Services: No Durable Medical Equipment: [...] Collaboration with patient, MD, direct care nurse, Return To Service Inspector, Nurse Coordinator and other members of the health care team to assure needed interventions completed. 2. Return patient to optimal level of self-care post discharge. 3. Travel Writer will follow for Discharge Planning - interventions [...] Padilla MD - 05/09/2021 5:48 PM CST [facility] Surgery Consultation Encounter Date: [...] Michell Lucia MD at 05/09/2021 10:48 PM FIRE PREVENTION INSPECTOR PREVENTION INSPECTOR PREVENTION INSPECTOR Associated attestation - Michell Lucia MD - 05/09/2021 10:48 PM FIRE PREVENTION INSPECTOR I have seen and examined the patient [...] pain, administered prn pain med. Will reassess. iKarra Baez RN documented in this encounter ED [...] and oriented to person, place, and time. [facility] Medical Decision Making Differential Diagnosis or Management [...] abdomen/pelvis. By: Anthony Beth MD Time: 05/09 7723 Comment: IMPRESSION: ?? 1. Borderline gallbladder distention [...] surgery. By: Michell Luo MD Time: 05/09 4170 Comment: Surgery will discuss admission with patient and family. By: Michell Luo MD Time: 05/09 5237 Comment: Sign out: 80F p/w RUQ symptoms [...] resident's note. Anthony Beth MD 05/10/21 190 PREVENTION INSPECTOR * Sandi Wooten RN - 05/09/2021 1:14 PM CST Patient here with right upper abdominal/flank pain. She states the pain started last night around 1700 but her states the pain has been hurting her for the past couple of days. She denies N/V/D. She also denies any urinary problems. PMH of cance,r DM, HTN and hyperlipidemia. PREVENTION INSPECTOR documented in this encounter Miscellaneous Notes * [...] medical record. Andrew Kincaid MD, CCDS Clinical Burlap Spreader Email: [email or web address] * Plan of Care - Ariadna [...] AM CDT OPERATIVE REPORT Shavon Singh 1940 [id number] DATE OF SERVICE: 05/11/21 SURGEON: Stephanie Castelan MD ELECTROTYPE CASTER: Rivka Aranda, PGY2 PROCEDURE: Laparoscopic cholecystectomy PREOPERATIVE [...] fashion. A time-out was performed according to [facility] policy. A Veress needle was used [...] Resident - Assisting Anesthesiologist: Galdino Isaac MD STRUCTURER: Brigid Meyers CRNA Business Analysis Professional: Ingrid Hou RN Scrub Relief: Khurram Villar [...] Michell Luo MD - 05/09/2021 6:52 PM FIRE PREVENTION INSPECTOR ED Re-evaluation TRANSITION OF CARE I, Michell [...] assess patient for possible cholecystitis By: Eduardo Bruhs MD Time: 05/09 1953 Comment: Surgery requesting RUQ US. By: Michell Luo MD Time: 05/09 1401 Value: US RUQ Comment: Borderline findings of [...] Anthony Beth MD - 05/09/2021 3:31 PM FIRE PREVENTION INSPECTOR Associated Order(s): ECG 12 lead Procedure ECG [...] the ED Anthony Beth MD 05/09/21 1535 PREVENTION INSPECTOR documented in this encounter Plan of Treatment [...] GLUCOSE DEVICE Routine 05/10/2021 1 2:01 AM FIRE PREVENTION INSPECTOR TROPONIN I HIGH-SENSITIVITY 4-HOUR Timed 05/09/2021 9:22 PM FIRE PREVENTION INSPECTOR US RUQ ED 05/09/2021 8:35 PM FIRE PREVENTION INSPECTOR XR CHEST PA LATERAL 2 VIEWS ED 05/09/2021 7:21 PM FIRE PREVENTION INSPECTOR INFLUENZA A/B, RSV, AND COVID-19 PCR Routine 05/09/2021 6:20 PM FIRE PREVENTION INSPECTOR TROPONIN I HIGH-SENSITIVITY 2-HOUR Timed 05/09/2021 6:20 [address] ABDOMEN PELVIS W CONTRAST ED 05/09/2021 5:10 PM FIRE PREVENTION INSPECTOR POCT GLUCOSE DEVICE Routine 05/09/2021 4 :51 PM FIRE PREVENTION INSPECTOR ECG 12-LEAD Routine 05/09/2021 3:31 PM FIRE PREVENTION INSPECTOR URINALYSIS AND REFLEX TO MICROSCOPIC AND CULTURE Routine 05/09/2021 3:08 PM FIRE PREVENTION INSPECTOR URINALYSIS, MICROSCOPIC ONLY Routine 05/09/2021 3:08 PM FIRE PREVENTION INSPECTOR TROPONIN I HIGH-SENSITIVITY SERIES (BASELINE, 2HR, 4HR, 6HR) STAT 05/09/2021 3:07 PM FIRE PREVENTION INSPECTOR EGFR STAT 05/09/2021 3:07 PM FIRE PREVENTION INSPECTOR DIFFERENTIAL AUTO STAT 05/09/2021 3:0 7 PM FIRE PREVENTION INSPECTOR CBC WITH AUTO DIFFERENTIAL STAT 05/09/2021 3:07 PM FIRE PREVENTION INSPECTOR LIPASE STAT 05/09/2021 3:07 PM FIRE PREVENTION INSPECTOR COMPREHENSIVE METABOLIC PANEL STAT 05/09/2021 3:07 PM FIRE PREVENTION INSPECTOR POCT GLUCOSE DEVICE Routine 05/09/2021 1 :21 PM FIRE PREVENTION INSPECTOR documented in this encounter Results * POCT glucose (05/12/2021 8:12 AM CDT) Glucose, POC 93 70 - 199 mg/dL [facility] Blood 05/12/2021 8:12 AM CDT 05/12/2021 8:12 AM CDT us Stephanie Castelan MD LAB POCT ORDERABLES - DACIA CE Final Result Performing Organization Address [facility]/ZIP Co de Phone Number [facility] [place] [address] * POCT glucose (05/12/2021 4:45 AM CDT) Glucose, POC 92 70 - 199 mg/dL [facility] Blood 05/12/2021 4:45 AM CDT 05/12/2021 4:45 AM CDT us Sheridan Haney MD LAB POCT ORDERABLES - DEVICE Fin al Result [facility] [place] [address] * (ABNORMAL) eGFR (05/12/2021 4:30 AM CDT) [facility] eGFR 50(L) 90 - 130 mL/min/1. 73 [...] ORDERABLES Final Resul t SHANTELL DAVIS [facility] [place] [address] * (ABNORMAL) aPTT (05/12/2021 4:30 AM CDT) [facility] aPTT 57(H) 27 - 37 sec [facility] Comment: Interpretive Data Therapeutic heparin range: 60.0 - 94.0 seconds. Based on correlation with therapeutic heparin activity range of 0.3-0.7 Units/mL. Current interpretive data was last revised on 2020. Blood 05/12/2021 4:30 AM CDT 05/12/2021 4:50 AM CDT [facility]ative [facility] 05/12/2021 5:00 AM CDT Draw [...] ORDERABLES Final Resul t Performing Organization Address City/[facility] Co de Phone Number [facility] [place] [address] * Phosphorus (05/12/2021 4:30 AM CDT) Phosphorus, pl 3.0 2.3 - 4.5 mg/dL [facility] Blood 05/12/2021 4:30 AM CDT 05/12/2021 4:40 AM CDT Result Mary Haney MD LAB BLOOD ORDERABLES Final Resul t Performing Organization Address City/State/[facility] Co de Phone Number [facility] [place] [address] * Magnesium (05/12/2021 4:30 AM CDT) Magnesium 2.2 1.4 - 2.5 mg/dL [facility] Blood 05/12/2021 4:30 AM CDT 05/12/2021 4:40 AM CDT us Sheridan Haney MD LAB BLOOD ORDERABLES Final Resul t [facility] [place] [address] * (ABNORMAL) Comprehensive metabolic panel (05/12/2021 4:30 AM CDT) Sodium 139 135 - 145 mmol/L [facility] Potassium, pl 4.1 3.3 - 4.9 mmol/L [facility] Chloride 110 97 - 110 mmol/L [facility] CO2 24 22 - 32 mmol/L [facility] Anion gap 5 2 - 15 mmol/L [facility] BUN 14 8 - 25 mg/dL [facility] Creatinine 1.10 0.60 - 1.10 mg/dL [facility] Glucose 97 70 - 199 mg/dL [facility] [...] 7.7(L) 8.5 - 10.3 mg/dL [facility] Bilirubin, total 0.6 0.1 - 1.2 mg/dL [facility] Protein, pl 5.5(L) 6.5 - 8.5 g/dL [facility] Albumin 3.0(L) 3.5 - 5.0 g/dL [facility] Alk phos 37(L) 40 - 130 Units/L [facility] ALT 154(H) 7 - 45 Units/L [facility] Comment:Reviewed AST 254(H) 10 - 45 Units/L [facility] Comment:Reviewed Blood 05/12/2021 4:30 AM CDT 05/12/2021 4:40 AM CDT Sheridan Haney MD LAB BLOOD ORDERABLES Final Resul t Performing Organization Address [facility] Co de Phone Number [facility] [place] [address] * (ABNORMAL) CBC without differential (05/12/2021 4:30 AM CDT) WBC 9.0 3.8 - 9.9 K/cumm [facility] Hgb 10.4(L) 11.9 - 15.5 g/dL [facility] Hct 32.6(L) 35.6 - 45.5 % [facility] Plt 152 150 - 400 K/cumm [facility] MPV 11.3 9.1 - 12.3 fL [facility] RBC 3.61(L) 3.90 - 5.20 M/cumm [facility] MCV 90.3 81.3 - 96.4 fL [facility] MCH 28.8 27.1 - 33.3 pg [facility] MCHC 31.9(L) 32.3 - 35.7 g/dL [facility] RDW CV 14.4 11.1 - 14.9 % [facility] RDW SD 47.3 35.7 - 48.1 fL [facility] NRBC abs 0.00 0.00 - 0.01 K/cumm [facility] Blood 05/12/2021 4:30 AM CDT 05/12/2021 4:40 AM CDT Sheridan Haney MD LAB BLOOD ORDERABLES Final Resul t Performing Organization Address [facility]/ZIP Co de Phone Number [facility] [place] [address] * POCT glucose (05/12/2021 1:41 AM CDT) Glucose, POC 107 70 - 199 mg/dL [facility] Blood 05/12/2021 1:41 AM CDT 05/12/2021 1:41 AM CDT us Sheridan Haney MD LAB POCT ORDERABLES - DEVICE Fin al Result Performing Organization Address [facility] Co de Phone Number [facility] [address] * POCT glucose (05/11/2021 10:21 PM CDT) Glucose, POC 124 70 - 199 mg/dL [facility] Blood 05/11/2021 10:2 1 PM CDT 05/11/2021 10:21 PM CDT Sheridan Haney MD LAB POCT ORDERABLES - DEVICE Fin al Result Performing Organization Address [facility] de Phone Number [facility] [place] [address] * aPTT (05/11/2021 8:54 PM CDT) aPTT 33 27 - 37 sec [facility] Comment: Interpretive Data Therapeutic heparin range: 60.0 - 94.0 seconds. Based on correlation with therapeutic heparin activity range of 0.3-0.7 Units/mL. Current interpretive data was last revised on 2020. Blood 05/11/2021 8:5 4 PM CDT 05/11/2021 9:17 PM CDT Narrative [facility] - 05/11/2021 9:26 PM CDT Draw [...] ORDERABLES Final Resul t Performing Organization Address [facility] de Phone Number [facility] [place] [address] * POCT glucose (05/11/2021 5:35 PM CDT) Glucose, POC 151 70 - 199 mg/dL [facility] Blood 05/11/2021 5:35 PM CDT 05/11/2021 5:35 PM CDT Sheridan Haney MD LAB POCT ORDERABLES - DEVICE Fin al Result Performing Organization Address City/[facility] [place] [address] * POCT glucose (05/11/2021 10:38 AM CDT) Glucose, POC 152 70 - 199 mg/dL [facility] Blood 05/11/2021 10:3 8 AM CDT 05/11/2021 10:38 AM CDT Sheridan Haney MD LAB POCT ORDERABLES - DEVICE Fin al Result Performing Organization Address [facility] de Phone Number [facility] [place] [address] * Surgical pathology (05/11/2021 10:09 AM CDT) Tissue (Gallbladder) 05/11/2021 10:09 AM CD[address]ative PATH[facility]Y [facility] - 05/14/2021 8:26 PM CDT EPIC results best viewed via link to PDF [facility] [place] [address] Note to Patients: This report may contain [...] Gender: ??F : ??1940 (Age: 80) Address: ??[address] [place] [address] Hospital #: ??[id number] Taken:05/11/2021 Received:05/11/2021 Reported: 05/14/2021 Patient Type: [facility] Inpatient ?? Service: Surgery Location: [place] [address] Physician(s): ??Stephanie Alberto M.D. Dr. Haris Lauren [...] margin- blue) 05/11/2021 14:16 PA(s): CONNIE Caruso ([facility]) By this signature, I attest that the above diagnosis is based upon my personal examination of the slides(and/or other material). Addenda/Procedures The performance characteristics of some immunohistochemical stains, fluorescence in-situ hybridization tests and immunophenotyping by flow cytometry cited in this report (if any) were determined by the Surgical Pathology and Flow Cytometry Departments at [facility] as part of an ongoing chemistry quality control analyst program and in compliance with federally mandated [...] Pathology and Flow Cytometry Departments of [facility]. ??It has not been cleared or approved by the U. S. Food and Drug Administration. IMAGES AND SCANNED DOCUMENTS, IF INCLUDED, ONLY VIEWABLE IN PDF VERSION OF REPORT Stephanie Castelan MD LAB PATHOLOGY ORDERABLES F inal Result [facility] [address]rd Floor [place], [place] [phone] * (ABNORMAL) Aerobic and anaerobic culture and gram stain Aspirate Gallbladder (05/11/2021 8:54 AM CDT) Direct Specimen Exam Stain: Abundant polymorphonuclear leukocytes seen. Abundant Gram Positive Cocci in pairs and chains [facility] Report Final Report: Abundant Streptococcus anginosus (.) [facility] Organism STREPTOCOCCUS ANGINOSUS [facility] Aspirate (Gallbladder) 05/11/2021 8:54 AM CDT 05/11/2021 12:04 PM CDT Narrative [facility] 05/14/[facility]21 2:34 PM CDT GALLBLADDER ASPIRATE Testing performed by [facility] Microbiology Laboratory ([phone]) Specimens submitted from normally sterile body sites [...] LAB MICROBIOLOGY - GENERAL ORDERABLES Final Result [facility] [place] [address] * POCT glucose (05/11/2021 8:53 AM CDT) Glucose, POC 122 70 - 199 mg/dL [facility] Blood 05/11/2021 8:53 AM CDT 05/11/2021 8:53 AM CDT us Sheridan Haney MD LAB POCT ORDERABLES - DEVICE Fin al Result [facility] [place] [address] * POCT glucose (05/11/2021 6:16 AM CDT) Pathologist [facility] Glucose, POC 150 70 - 199 mg/dL [facility] Blood 05/11/2021 6:16 AM CDT 05/11/2021 6:16 AM CDT us Sheridan Haney MD LAB POCT ORDERABLES - DEVICE Fin al Result [facility] [place] [address] * (ABNORMAL) eGFR (05/11/2021 3:21 AM CDT) [facility] eGFR 62(L) 90 - 130 mL/min/1. 73 m2 [facility] Comment: Interpretive Data Reference Interval Normal [...] ORDERABLES Miranda l Result Performing Organization Address City/[facility] Co de Phone Number [facility] [place] [address] * aPTT (05/11/2021 3:21 AM CDT) aPTT 36 27 - 37 sec [facility] Comment: Interpretive Data Therapeutic heparin range: 60.0 - 94.0 seconds. Based on correlation with therapeutic heparin activity range of 0.3-0.7 Units/mL. Current interpretive data was last revised on 2020. Blood 05/11/2021 3:21 AM CDT 05/11/2021 5:27 AM CDT Narrative [facility] - 05/11/2021 5:35 AM CDT Draw [...] ORDERABLES Final Resul t Performing Organization Address [facility] Co de Phone Number [facility] [place] [facility] [address] * Phosphorus (05/11/2021 3:21 AM CDT) Phosphorus, pl 2.3 2.3 - 4.5 mg/dL [facility] Blood 05/11/2021 3:2 1 AM CDT 05/11/2021 5:19 AM CDT Sheridan Haney MD LAB BLOOD ORDERABLES Final Resul t Performing Organization Address [facility] Co de Phone Number [facility] [place] [address] * Magnesium (05/11/2021 3:21 AM CDT) Magnesium 1.7 1.4 - 2.5 mg/dL [facility] Blood 05/11/2021 3:21 AM CDT 05/11/2021 5:19 AM CDT Sheridan Haney MD LAB BLOOD ORDERABLES Final Resul t [facility] Department [place] [address] * (ABNORMAL) Comprehensive metabolic panel (05/11/2021 3:21 AM CDT) Pathologist [facility] Sodium 137 135 - 145 mmol/L [facility] Potassium, pl 4.2 3.3 - 4.9 mmol/L [facility] Chloride 108 97 - 110 mmol/L [facility] CO2 21(L) 22 - 32 mmol/L [facility] Anion gap 8 2 - 15 mmol/L [facility] BUN 13 8 - 25 mg/dL [facility] Creatinine 0.92 0.60 - 1.10 mg/dL [facility] Glucose 160 70 - 199 mg/dL [facility] [...] 8.4(L) 8.5 - 10.3 mg/dL [facility] Bilirubin, total 0.8 0.1 - 1.2 mg/dL [facility] Protein, pl 6.7 6.5 - 8.5 g/dL [facility] Albumin 3.7 3.5 - 5.0 g/dL [facility] Alk phos 41 40 - 130 Units/L [facility] ALT 33 7 - 45 Units/L [facility] AST 59(H) 10 - 45 Units/L [facility] Blood 05/11/2021 3:21 AM CDT 05/11/2021 5:19 AM CDT us Sheridan Haney MD LAB BLOOD ORDERABLES Final Resul t Performing Organization Address City/[facility]/ZIP Co de Phone Number [facility] Department [place] [facility] [address] * (ABNORMAL) CBC without differential (05/11/2021 3:21 AM CDT) WBC 11.7(H) 3.8 - 9.9 K/cumm [facility] Hgb 12.2 11.9 - 15.5 g/dL [facility] Hct 38.7 35.6 - 45.5 % [facility] Plt 182 150 - 400 K/cumm [facility] MPV 11.7 9.1 - 12.3 fL [facility] RBC 4.28 3.90 - 5.20 M/cumm [facility] MCV 90.4 81.3 - 96.4 fL [facility] MCH 28.5 27.1 - 33.3 pg [facility] MCHC 31.5(L) 32.3 - 35.7 g/dL [facility] RDW CV 14.1 11.1 - 14.9 % [facility] RDW SD 46.8 35.7 - 48.1 fL [facility] NRBC abs 0.00 0.00 - 0.01 K/cumm [facility] Blood 05/11/2021 3:21 AM CDT 05/11/2021 5:19 AM CDT us Sheridan Haney MD LAB BLOOD ORDERABLES Final Resul t [facility] Department [place] [address] * POCT glucose (05/11/2021 3:10 AM CDT) Glucose, POC 146 70 - 199 mg/dL [facility] Blood 05/11/2021 3:10 AM CDT 05/11/2021 3:10 AM CDT Sheridan Haney MD LAB POCT ORDERABLES - DEVICE Fin al Result Performing Organization Address City/[facility] Co de Phone Number [facility] [place] [address] * POCT glucose (05/10/2021 11:15 PM CDT) [facility] Glucose, POC 168 70 - 199 mg/dL [facility] Blood 05/10/2021 11:1 5 PM CDT 05/10/2021 11:15 PM CDT us Sheridna Haney MD LAB POCT ORDERABLES - DEVICE Fin al Result Performing Organization Address City/[facility] Co de Phone Number [facility] [place] [address] * (ABNORMAL) POCT glucose (05/10/2021 8:25 PM CDT) [facility] Glucose, POC 201(H) 70 - 199 mg/dL [facility] Blood 05/10/2021 8:25 PM CDT 05/10/2021 8:25 PM CDT Sheridan Haney MD LAB POCT ORDERABLES - DEVICE Fin al Result Performing Organization Address City/[facility] Co de Phone Number [facility] [place] [address] * (ABNORMAL) POCT glucose (05/10/2021 4:37 PM CDT) Glucose, POC 221(H) 70 - 199 mg/dL [facility] Blood 05/10/2021 4:37 PM CDT 05/10/2021 4:37 PM CDT Sheridan Haney MD LAB POCT ORDERABLES - DEVICE Fin al Result Performing Organization Address City/[facility]/ZIP Co de Phone Number [facility] [place] [address] * Critical Result Callback Hematology (05/10/2021 2:17 PM CDT) Pathologist [facility] Date Notified [id number] [facility] Time Notified [id number] [facility] TestName aPTT [facility] Called/Read Back Lele [facility] Credentials RN [facility] Called By omar [facility] Blood 05/10/2021 2:17 PM CDT 05/10/2021 4:49 PM CDT us Shira Devien NP LAB BLOOD ORDERABLES Final Result Performing Organization Address [facility] Co de Phone Number [facility] [place] [address] * (ABNORMAL) aPTT (05/10/2021 2:17 PM CDT) Pathologist [facility] aPTT >150(C) 27 - 37 sec [facility] Comment: No clot detected in sample Repeated and verified Interpretive Data Therapeutic heparin range:60.0 - 94.0 sec based on correlation with therapeutic heparin activity range of 0.3 -0.7 Units/mL. Current interpretive data was last revised on 2011. Blood 05/10/2021 2:17 PM CDT 05/10/2021 4:45 PM CDT Narrative [facility] - 05/10/2021 5:17 PM CDT Draw [...] ORDERABLES Final Resul t Performing Organization Address [facility] Co de Phone Number [facility] [place] [facility] [address] * (ABNORMAL) POCT glucose (05/10/2021 12:25 PM CDT) Glucose, POC 209(H) 70 - 199 mg/dL [facility] Blood 05/10/2021 12:2 5 PM CDT 05/10/2021 12:25 PM CDT Sheridan Haney MD LAB POCT ORDERABLES - DEVICE Fin al Result Performing Organization Address [facility] de Phone Number [facility] [place] [address] * Type and screen (05/10/2021 12:23 PM CDT) Ramón, indirect Negative [facility] ABO Rh O Negative [facility] Blood 05/10/2021 12:2 3 PM CDT 05/10/2021 2:28 PM CDT Narrative [facility] - 05/10/2021 3:28 PM CDT Has the patient had Daratumumab or Isatuximab in the past 6 months?->Unknown Shira Devine NP LAB BLOOD BANK TEST ORDERA BLES Final Result Performing Organization Address [facility] [place] [address] * POCT glucose (05/10/2021 8:17 AM CDT) Glucose, POC 137 70 - 199 mg/dL [facility] Blood 05/10/2021 8:17 AM CDT 05/10/2021 8:17 AM CDT Sheridan Haney MD LAB POCT ORDERABLES - DEVICE Fin al Result Performing Organization Address City/[facility]/ZIP Co de Phone Number [facility] [place] [address] * (ABNORMAL) CBC without differential (05/10/2021 7:13 AM CDT) [facility] WBC 9.0 3.8 - 9.9 K/cumm [facility] Hgb 11.6(L) 11.9 - 15.5 g/dL [facility] Hct 36.0 35.6 - 45.5 % [facility] Plt 173 150 - 400 K/cumm [facility] MPV 12.0 9.1 - 12.3 fL [facility] RBC 4.02 3.90 - 5.20 M/cumm [facility] MCV 89.6 81.3 - 96.4 fL [facility] MCH 28.9 27.1 - 33.3 pg [facility] MCHC 32.2(L) 32.3 - 35.7 g/dL [facility] RDW CV 14.2 11.1 - 14.9 % [facility] RDW SD 46.7 35.7 - 48.1 fL [facility] NRBC abs 0.00 0.00 - 0.01 K/cumm [facility] Blood 05/10/2021 7:13 AM CDT 05/10/2021 9:53 AM CDT Narrative [facility] - 05/10/2021 10:00 AM CDT Baseline prior to heparin initiation Shira Devine NP LAB BLOOD ORDERABLES Final Result [facility] [place] [address] * POCT glucose (05/10/2021 5:28 AM CDT) Glucose, POC 158 70 - 199 mg/dL [facility] Blood 05/10/2021 5:28 AM CDT 05/10/2021 5:28 AM CDT us Sheridan Haney MD LAB POCT ORDERABLES - DEVICE Fin al Result [facility] [place] [address] * Lipid panel (05/10/2021 4:44 AM CDT) Cholesterol 105 30 - 199 mg/dL [facility] Comment: Interpretive Data Ages < or [...] revised on 2017. Triglycerides 65 <=149 mg/dL [facility] Comment: Interpretive Data Ages < [...] revised on 2017. HDL 46 >=40 mg/dL [facility] Comment: Interpretive Data Ages < [...] 2017. LDL, calculated 46 <=129 mg/dL [facility] Comment: Interpretive Data Ages < or [...] on 2017. Non-HDL Cholesterol 59 mg/dL [facility] Comment: Interpretive Data Ages < or [...] last revised on 2017. Chol/HDL ratio 2 [facility] Blood 05/10/2021 4:44 AM CDT 05/10/2021 5:33 AM CDT Narrative [facility] - 05/10/2021 8:15 AM CDT reflex Sheridan Haney MD LAB BLOOD ORDERABLES Final Resul t [facility] [place] [address] * (ABNORMAL) Hemoglobin A1c (05/10/2021 4:44 AM CDT) Hgb A1C 5.9(H) 4.0 - 5.6 % [facility] Estimated Average Glucose 123 mg/dL [facility] Comment: The ADA recommends reporting an [...] ORDERABLES Final Resul t Performing Organization Address [facility] Co de Phone Number [facility] Department [place] [facility] [place] [address] * (ABNORMAL) eGFR (05/10/2021 4:44 AM CDT) eGFR 64(L) 90 - 130 mL/min/1. 73 m2 [facility] Comment: Interpretive Data Reference Interval Normal [...] ORDERABLES Miranda l Result Performing Organization Address City/[facility] Co de Phone Number [facility] [place] [facility] [place] [address] * Phosphorus (05/10/2021 4:44 AM CDT) [facility] Phosphorus, pl 3.3 2.3 - 4.5 mg/dL [facility] Blood 05/10/2021 4:44 AM CDT 05/10/2021 5:33 AM CDT Sheridan Haney MD LAB BLOOD ORDERABLES Final Resul t Performing Organization Address City/[facility] Co de Phone Number [facility] [place] [address] * Magnesium (05/10/2021 4:44 AM CDT) [facility] Magnesium 1.7 1.4 - 2.5 mg/dL [facility] Blood 05/10/2021 4:44 AM CDT 05/10/2021 5:33 AM CDT Sheridan Haney MD LAB BLOOD ORDERABLES Final Resul t Performing Organization Address City/[facility] de Phone Number [facility] [place] [address] * Comprehensive metabolic panel (05/10/2021 4:44 AM CDT) [facility] Sodium 140 135 - 145 mmol/L [facility] Potassium, pl 4.1 3.3 - 4.9 mmol/L [facility] Comment:Hemolyzed; Potassium value may be falsely elevated by as much as 0.3-0.5 mmol/L. Suggest redraw and reanalysis. Chloride 109 97 - 110 mmol/L [facility] CO2 22 22 - 32 mmol/L [facility] Anion gap 9 2 - 15 mmol/L [facility] BUN 20 8 - 25 mg/dL [facility] Creatinine 0.90 0.60 - 1.10 mg/dL [facility] Glucose 127 70 - 199 mg/dL [facility] [...] 8.7 8.5 - 10.3 mg/dL [facility] Bilirubin, total 0.6 0.1 - 1.2 mg/dL [facility] Protein, pl 6.9 6.5 - 8.5 g/dL [facility] Albumin 3.8 3.5 - 5.0 g/dL [facility] Alk phos 41 40 - 130 Units/L [facility] ALT 19 7 - 45 Units/L [facility] AST 36 10 - 45 Units/L [facility] Comment:Hemolyzed; result ma y be falsely elevated Blood 05/10/2021 4:44 AM CDT 05/10/2021 5:33 AM CDT us Sheridan Haney MD LAB BLOOD ORDERABLES Final Resul t [facility] [place] [address] * (ABNORMAL) CBC without differential (05/10/2021 4:44 AM CDT) Pathologist [facility] WBC 9.7 3.8 - 9.9 K/cumm [facility] Hgb 11.9 11.9 - 15.5 g/dL [facility] Hct 37.3 35.6 - 45.5 % [facility] Plt 182 150 - 400 K/cumm [facility] MPV 12.1 9.1 - 12.3 fL [facility] RBC 4.12 3.90 - 5.20 M/cumm [facility] MCV 90.5 81.3 - 96.4 fL [facility] MCH 28.9 27.1 - 33.3 pg [facility] MCHC 31.9(L) 32.3 - 35.7 g/dL [facility] RDW CV 14.2 11.1 - 14.9 % [facility] RDW SD 46.5 35.7 - 48.1 fL [facility] NRBC abs 0.00 0.00 - 0.01 K/cumm [facility] Blood 05/10/2021 4:44 AM CDT 05/10/2021 5:33 AM CDT us Sheridan Haney MD LAB BLOOD ORDERABLES Final Resul t [facility] [place] [address] * POCT glucose (05/10/2021 12:01 AM FIRE PREVENTION INSPECTOR) Pathologist [facility] Glucose, POC 122 70 - 199 mg/dL [facility] Blood 05/10/2021 12:0 1 AM FIRE PREVENTION INSPECTOR 05/10/2021 12:01 AM FIRE PREVENTION INSPECTOR us Notinfile Unknown LAB POCT ORDERABLES - DEVICE F inal Result Performing Organization Address [facility] Co de Phone Number [facility] [place] [address] * Troponin I high-sensitivity 4-hour (05/09/2021 9:22 PM FIRE PREVENTION INSPECTOR) Trop I hs 4 <=17 ng/L [facility] Comment: Interpretive Data For further hscTnI resources including the diagnostic algorithm and an aid in interpretation, copy and paste this link: https://bjhlab.testcatalog.org/show/hsTrop-1 Current Interpretive Data last revised 2019. Trop I hs delta See Comment ng/L [facility] Comment:Inappropriate collec tion time to report a delta. Trop I hs pct delta See Comment % [facility] Comment:Inappropriate collec tion time to report a delta. Trop I hs interp See Comment [facility] Comment:Inappropriate collec tion time to report a delta. Blood 05/09/2021 9:22 PM FIRE PREVENTION INSPECTOR 05/09/2021 9:37 PM FIRE PREVENTION INSPECTOR us Eduardo Brush MD LAB BLOOD ORDERABLES Final R esult [facility] [place] [address] * US RUQ (05/09/2021 8:35 PM FIRE PREVENTION INSPECTOR) Anatomical Region Laterality Modality Abdomen N/A Ultrasound 05/09/2021 9:58 PM FIRE PREVENTION INSPECTOR Impressions 05/10/2021 11:50 AM CDT Equivocal findings [...] Pa Lateral 2 Views (05/09/2021 7:21 PM FIRE PREVENTION INSPECTOR) Anatomical Region Laterality Modality Body, Chest N/A Computed Radiogr aphy 05/09/2021 7:25 PM FIRE PREVENTION INSPECTOR Impressions 05/09/2021 7:30 PM FIRE PREVENTION INSPECTOR Comparison is made to prior chest radiograph [...] Charly Quintanilla M.D. Narrative 05/09/2021 7:30 PM FIRE PREVENTION INSPECTOR EXAMINATION: XR CHEST PA LATERAL 2 VIEWS [...] and COVID-19 PCR Nasopharyngeal (05/09/2021 6:20 PM FIRE PREVENTION INSPECTOR) COVID-19 RNA Negative Negative [facility] Influenza A RNA Negative Negative [facility] Influenza B RNA Negative Negative [facility] RSV RNA Negative Negative [facility] Comment: Interpretive data: Testing performed by [facility] ([phone]). This test is performed using the eÓ[employer] Xpert Xpress CoV-2/Flu/RSV plus assay. This is a multiplex, real-time reverse transcriptase PCR assay intended for the qualitative detection of nucleic acid from SARS-CoV-2, influenza A, influenza B, and respiratory syncytial virus. This assay has been reviewed by the FDA for Emergency Use Authorization (EUA). The performance characteristics have been verified by the [facility]. Results must be considered in the clinical context, and a negative result does not rule out infection. Interpretive Data last revised 2021. First COVID-19 test? No [facility] Employeed in healthcare? No [facility] status? No [facility] Group care resident? No [facility] Hospitalized? Yes [facility] Is patient in ICU? No [facility] Symptomatic as defined by CDC? No [facility] Nasopharyngeal 05/09/2021 6: 20 PM FIRE PREVENTION INSPECTOR 05/09/2021 6:53 PM FIRE PREVENTION INSPECTOR Narrative [facility] - 05/09/2021 7:39 PM FIRE PREVENTION INSPECTOR Reason for testing?->Bed placement or semi-private room Known exposure to confirmed or suspected COVID-19 case?->No Eduardo Brush MD LAB MICROBIOLOGY - GENERAL O RDERABLES Final Result [facility] [place] [address] * Troponin I high-sensitivity 2-hour (05/09/2021 6:20 PM FIRE PREVENTION INSPECTOR) Trop I hs 4 <=17 ng/L [facility] Comment: Interpretive Data For further hscTnI resources including the diagnostic algorithm and an aid in interpretation, copy and paste this link: https://bjhlab.testcatalog.org/show/hsTrop-1 Current Interpretive Data last revised 2019. Trop I hs delta See Comment ng/L [facility] Comment:Inappropriate collec tion time to report a delta. Trop I hs pct delta See Comment % [facility] Comment:Inappropriate collec tion time to report a delta. Trop I hs interp See Comment [facility] Comment:Inappropriate collec tion time to report a delta. Blood 05/09/2021 6:20 PM FIRE PREVENTION INSPECTOR 05/09/2021 6:31 PM FIRE PREVENTION INSPECTOR us Rawan Ahmad Safa MD LAB BLOOD ORDERABLES Final R esult [facility] [place] [address] * CT Abdomen Pelvis W Contrast (05/09/2021 5:10 PM FIRE PREVENTION INSPECTOR) Anatomical Region Laterality Modality Body N/A Computed Tomogra phy 05/09/2021 5:33 PM FIRE PREVENTION INSPECTOR Impressions 05/09/2021 5:51 PM FIRE PREVENTION INSPECTOR 1. Borderline gallbladder distention and cholelithiasis without definite evidence of acute cholecystitis. Recommend clinical correlation for symptoms of biliary colic. 2. Pancolonic diverticulosis without evidence of diverticulitis. Dictated by: Akira Granda The radiology attending physician has personally reviewed this study, and had reviewed and/or edited this written report and agrees with it. Electronically signed by: Charly Quintanilla M.D. Narrative 05/09/2021 5:51 PM FIRE PREVENTION INSPECTOR EXAMINATION: ??Computed tomography of the abdomen and [...] lt * POCT glucose (05/09/2021 4:51 PM FIRE PREVENTION INSPECTOR) [facility] Signature Glucose, POC 122 70 - 199 mg/dL [facility] Glucose comment 1 Glu2: RN/MD Notified [facility] Blood 05/09/2021 4:51 PM FIRE PREVENTION INSPECTOR 05/09/2021 4:51 PM FIRE PREVENTION INSPECTOR Notinfile Unknown LAB POCT ORDERABLES - DEVICE F inal Result [facility] [place] [address] * ECG 12-LEAD (05/09/2021 3:31 PM FIRE PREVENTION INSPECTOR) Narrative [facility] - 05/09/2021 3:31 PM FIRE PREVENTION INSPECTOR Anthony Beth MD ? 05/09/2021 ??3:35 PM [...] in the ED Anthony Beth MD 05/09/21 3035 Eduardo Brush MD ECG ORDERABLES Final Result Performing Organization Address City/[facility]/ZIP Co de Phone Number [facility] * (ABNORMAL) Urinalysis, microscopic only (05/09/2021 3:08 PM FIRE PREVENTION INSPECTOR) WBC, ur 0-5 0 - 5 /HPF [facility] RBC, ur 0-2 0 - 2 /HPF [facility] Epithelial cells, squamous, ur 1-5 0 - 5 /HPF [facility] Mucous, ur Present(A) [facility] Culture Reflex Comment Reflex conditions for urine culture (WBC >10) not met. [facility] Urine 05/09/2021 3:08 PM FIRE PREVENTION INSPECTOR 05/09/2021 3:15 PM FIRE PREVENTION INSPECTOR Eduardo Brush MD LAB URINE ORDERABLES Final R esult Performing Organization Address [facility] Co de Phone Number [facility] [place] [address] * (ABNORMAL) Urinalysis reflex to microscopic and culture Urine (05/09/2021 3:08 PM FIRE PREVENTION INSPECTOR) Color, ur Straw Yellow [facility] Clarity, ur Clear Clear [facility] Specific gravity, ur 1.024 1.003 - 1.030 [facility] pH, urine 6.0 [facility] Protein, ur ql Trace Negative [facility] Glucose, ur ql Negative Negative [facility] Ketones, ur Negative Negative [facility] Bilirubin, ur Negative Negative [facility] Blood, ur Trace(A) Negative [facility] Urobilinogen, ur <2.0 <2.0 mg/dL [facility] Nitrite, ur Negative Negative [facility] Leukocyte esterase, ur Negative Negative [facility] UA reflex comment Reflex to microscopic UA will be performed. [facility] Urine 05/09/2021 3:08 PM FIRE PREVENTION INSPECTOR 05/09/2021 3:15 PM FIRE PREVENTION INSPECTOR Narrative [facility] - 05/09/2021 3:29 PM FIRE PREVENTION INSPECTOR ?? Urine pH is affected by diet, medications, systemic acid-base disturbances, and renal tubular function. ??pH may affect urinary stone formation. ??For example, urine pH below 6.0 may help reduce the tendency for calcium phosphate stones and pH greater than 6.0 may reduce the tendency for uric acid stone formation. Source: [employer]. Last revised 03-10-2017 us Eduardo Brush MD LAB MICROBIOLOGY - GENERAL O RDERABLES Final Result [facility] [place] [address] * (ABNORMAL) eGFR (05/09/2021 3:07 PM FIRE PREVENTION INSPECTOR) eGFR 60(L) 90 - 130 mL/min/1. 73 [...] last reviewed 2020. Blood 05/09/2021 3:07 PM FIRE PREVENTION INSPECTOR 05/09/2021 3:22 PM FIRE PREVENTION INSPECTOR us Eduardo Brush MD LAB BLOOD ORDERABLES Final R esult [facility] [place] [address] * Lipase (05/09/2021 3:07 PM FIRE PREVENTION INSPECTOR) Pathologist [facility] Lipase 23 10 - 99 Units/L [facility] Blood 05/09/2021 3:07 PM FIRE PREVENTION INSPECTOR 05/09/2021 3:22 PM FIRE PREVENTION INSPECTOR us Notinfile Unknown LAB BLOOD ORDERABLES Final Res ult Performing Organization Address [facility] Co de Phone Number [facility] [place] [address] * Differential, auto (05/09/2021 3:07 PM FIRE PREVENTION INSPECTOR) [facility] Neutrophil abs 5.9 1.7 - 6.5 K/cumm [facility] Imm gran abs 0.0 0.0 - 0.1 K/cumm [facility] Lymphocyte abs 1.4 0.8 - 3.3 K/cumm [facility] Monocyte abs 0.5 0.2 - 0.8 K/cumm [facility] Eosinophil abs 0.2 0.0 - 0.5 K/cumm [facility] Basophil abs 0.1 0.0 - 0.1 K/cumm [facility] Neutrophil pct 73.2 % [facility] Comment: Interpretive Data Percent cell count reference ranges are not reported, since discordance with absolute values may lead to misinterpretation of CBC data. Current Interpretive Data was last revised on 2017. Imm gran pct 0.1 % [facility] Comment: Interpretive Data Percent cell count reference ranges are not reported, since discordance with absolute values may lead to misinterpretation of CBC data. Current Interpretive Data was last revised on 2017. Lymphocyte pct 17.3 % [facility] Comment: Interpretive Data Percent cell count reference ranges are not reported, since discordance with absolute values may lead to misinterpretation of CBC data. Current Interpretive Data was last revised on 2017. Monocyte pct 6.6 % [facility] Comment: Interpretive Data Percent cell count reference ranges are not reported, since discordance with absolute values may lead to misinterpretation of CBC data. Current Interpretive Data was last revised on 2017. Eosinophil pct 1.9 % [facility] Comment: Interpretive Data Percent cell count reference ranges are not reported, since discordance with absolute values may lead to misinterpretation of CBC data. Current Interpretive Data was last revised on 2017. Basophil pct 0.9 % [facility] Comment: Interpretive Data Percent cell count reference ranges are not reported, since discordance with absolute values may lead to misinterpretation of CBC data. Current Interpretive Data was last revised on 2017. Blood 05/09/2021 3:07 PM FIRE PREVENTION INSPECTOR 05/09/2021 3:22 PM FIRE PREVENTION INSPECTOR Eduardo Brush MD LAB BLOOD ORDERABLES Final R esult [facility] [place] [address] * Troponin I high-sensitivity series (baseline, 2hr, 4hr, 6hr) (05/09/2021 3:07 PM FIRE PREVENTION INSPECTOR) Trop I hs 4 <=17 ng/L [facility] Comment: Interpretive Data For further hscTnI resources including the diagnostic algorithm and an aid in interpretation, copy and paste this link: https://bjhlab.testcatalog.org/show/hsTrop-1 Current Interpretive Data last revised 2019. Blood 05/09/2021 3:07 PM FIRE PREVENTION INSPECTOR 05/09/2021 3:22 PM FIRE PREVENTION INSPECTOR Eduardo Brush MD LAB BLOOD ORDERABLES Final R esult [facility] [place] [address] * Comprehensive metabolic panel (05/09/2021 3:07 PM FIRE PREVENTION INSPECTOR) Sodium 138 135 - 145 mmol/L [facility] [facility] Potassium, pl 4.0 3.3 - 4.9 mmol/L [facility] Chloride 106 97 - 110 mmol/L [facility] CO2 22 22 - 32 mmol/L [facility] Anion gap 10 2 - 15 mmol/L [facility] BUN 24 8 - 25 mg/dL [facility] Creatinine 0.95 0.60 - 1.10 mg/dL [facility] Glucose 166 70 - 199 mg/dL [facility] 9.2 8.5 - 10.3 mg/dL [facility] Bilirubin, total 0.4 0.1 - 1.2 mg/dL [facility] Protein, pl 7.5 6.5 - 8.5 g/dL [facility] Albumin 4.4 3.5 - 5.0 g/dL [facility] Alk phos 59 40 - 130 Units/L [facility] ALT 19 7 - 45 Units/L [facility] AST 27 10 - 45 Units/L [facility] Blood 05/09/2021 3:07 PM FIRE PREVENTION INSPECTOR 05/09/2021 3:22 PM FIRE PREVENTION INSPECTOR Eduardo Brush MD LAB BLOOD ORDERABLES Final R esult [facility] [place] [address] * (ABNORMAL) CBC with auto differential (05/09/2021 3:07 PM FIRE PREVENTION INSPECTOR) [facility] WBC 8.0 3.8 - 9.9 K/cumm [facility] Hgb 12.9 11.9 - 15.5 g/dL [facility] Hct 40.1 35.6 - 45.5 % [facility] Plt 198 150 - 400 K/cumm [facility] MPV 11.6 9.1 - 12.3 fL [facility] RBC 4.46 3.90 - 5.20 M/cumm [facility] MCV 89.9 81.3 - 96.4 fL [facility] MCH 28.9 27.1 - 33.3 pg [facility] MCHC 32.2(L) 32.3 - 35.7 g/dL [facility] RDW CV 14.2 11.1 - 14.9 % [facility] RDW SD 46.7 35.7 - 48.1 fL [facility] NRBC abs 0.00 0.00 - 0.01 K/cumm [facility] Blood 05/09/2021 3:07 PM FIRE PREVENTION INSPECTOR 05/09/2021 3:22 PM FIRE PREVENTION INSPECTOR us Eduardo Brush MD LAB BLOOD ORDERABLES Final R esult Performing Organization Address [facility] Co de Phone Number [facility] [place] [address] * POCT glucose (05/09/2021 1:21 PM FIRE PREVENTION INSPECTOR) [facility] Glucose, POC 157 70 - 199 mg/dL [facility] Blood 05/09/2021 1:21 PM FIRE PREVENTION INSPECTOR 05/09/2021 1:21 PM FIRE PREVENTION INSPECTOR us Notinfile Unknown LAB POCT ORDERABLES - DEVICE F inal Result Performing Organization Address [facility] Co de Phone Number [facility] Department [place] [address] documented in this encounter Visit Diagnoses Diagnosis [...] Call MD for each episode of hypoglycemia. INDUSTRIAL PROPERTY APPRAISER STATES GLUTOSE-15 CONTAINS GLUCOSE 40% W/W (50% [...] 1 dose Contrast Given 05/09/2021 4:54 PM FIRE PREVENTION INSPECTOR 94 mL Lactated Ringer's (LR) infusion - [...] For 1 dose Given 05/09/2021 4:48 PM FIRE PREVENTION INSPECTOR 2 m g morphine injection 2 mg 2 mg, intravenous, Administer over 4 Minutes, Once, On 05/09/21 at 2245, For 1 dose Given 05/09/2021 11:07 PM FIRE PREVENTION INSPECTOR 2 mg ondansetron (ZOFRAN) injection 4 mg 4 mg, intravenous, Administer over 2 Minutes, Once, On 05/09/21 at 1622, For 1 dose Given 05/09/2021 4:47 PM FIRE PREVENTION INSPECTOR 4 m g oxyCODONE (ROXICODONE) tablet 5 [...] mcg 62.5 mcg (1 puff), inhalation, Daily (correspondent), First dose on Tue05/10/21 at 0900 Given 05/10/2021 8:42 AM CDT 62. 5 mcg umeclidinium (INCRUSE ELLIPTA) 62.5 mcg/actuation inhaler 62.5 mcg 62.5 mcg (1 puff), inhalation, Daily (correspondent), First dose (after last modification) on Tue05/12/21 at 0930, Rinse mouth with water after use. Do not swallow. Given 05/12/2021 10:19 AM CDT 62.5 mcg documented in this encounter Active and Recently Administered Medications Due to Daylight Saving Time, this section may contain times in both FIRE PREVENTION INSPECTOR and CDT. Scheduled Medication Order 05/10/2021 05/11/2021 [...] (CANCELED) 62.5 mcg (1 puff), inhalation, Daily (correspondent), First dose on Tue05/10/21 at 0900 0842 [...] mcg 62.5 mcg (1 puff), inhalation, Daily (correspondent), First dose (after last modification) on Tue05/12/21 [...] Call MD for each episode of hypoglycemia. INDUSTRIAL PROPERTY APPRAISER STATES GLUTOSE-15 CONTAINS GLUCOSE 40% W/W (50% [...] Stephanie Castelan MD - Comment: for suction chief of hospital medicine) Linked Groups Order Group 1: dextrose (GLUTOSE) [...] Call MD for each episode of hypoglycemia. INDUSTRIAL PROPERTY APPRAISER STATES GLUTOSE-15 CONTAINS GLUCOSE 40% W/W (50% [...] 05/09/2021 documented in this encounter Care Teams Comb Fixer Relationship Specialty Start Date End Date Haris Lauren MD PCP - General Family Medicine 12/31/20 06/07/21 documented as of this encounter
--- OUTSIDE RECORDS SUMMARY | 2024-03-13 23:59 | XMS_ITS | Encounter Summary ---
Author Organization [facility] Address [address] [place] [address] Care Team Providers Care Sales Assistant Displays Name Role Phone Haris Lauren MD Primary Care Provider [phone] Encounter Details Date Type Department Care Team (Late st Contact Info) Description 05/21/2021 Documentation [facility] [address] [facility] [place] [place] [address] [place] [address] Shira Devine NP [address] [facility] [id number] [place] [address] Social History Tobacco Use Types Packs/Day Years [...] on file Legal Sex Female 11:30 PM VENEER SAWYER Gender Identity Female 06/15/2023 1:45 PM [...] filedocumented in this encounter Care Teams Sales Assistant Displays Relationship Specialty Start Date End Date Haris Lauren MD PCP - General Family Medicine 12/31/20 06/07/21 documented as of this encounter
[2024-03-14] VITALS (9 sets, daily range): BP systolic 138; BP diastolic 64; PULSE 70–74; RESP 12–20; TEMP 36.3; O2SAT 91–95
--- OUTSIDE RECORDS SUMMARY | 2024-03-14 | XMS_ITS | Encounter Summary ---
Author Organization [facility] Address [address] [place] [address] Phone Care Team Providers Care Manager Bar Name Role Phone Cassius Chambers MD Primary Care Provider [phone] Reason for Visit * Cardiology (Routine) - Closed Specialty Diagnoses / Procedures Referred By Cata quintanilla Referred To Contact Diagnoses Nonrheumatic mitral valve regurgitation Procedures Transthoracic Echo Complete W Doppler/CF Sp Kilpatrick MD [address] [facility] [address] [place] [address] Phone: tel: fax: [facility] (All Locations) Referral ID Status Reason Start Date Expiration Date Visits Re quested Visits Authorized [id number] Closed 12/26/2019 01/24/2021 1 1 Encounter Details Date Type Department Care Team (Latest Contact Info) Description 04/28/2020 10:30 AM PROTECTIVE SERVICE SPECIALIST Ancillary Procedure [facility] Cardiology [address] [place] [address] [address] [place] [address] Nonrheumatic mitral valve regurgitation Social History Tobacco Use Types Packs/Day Years Used Date Smoking Tobacco: Never Smokeless Tobacco: Never Alcohol Use Standard Drinks/Week Comments No 0 (1 standard drink = 0.6 oz pur e alcohol) Comments No Sex and Gender Information Value Date Recorded Sex Assigned at Not on file Legal Sex Female 11:30 PM PROTECTIVE SERVICE SPECIALIST Gender Identity Female 06/15/2023 1:45 PM CDT Sexual Orientation Straight 06/15/2023 1: 45 PM CDT documented as of this encounter Plan of Treatment Not on file documented as of this encounter Procedures Procedure Name Priority Date/Time Associated Diagnosis Comments TRANSTHORACIC ECHO (TTE) COMPLETE W DOPPLER/CF WO CONTRAST Routine 04/28/2020 11:26 AM PROTECTIVE SERVICE SPECIALIST Nonrheumatic mitral valve regurgitation documented in this encounter Results * TRANSTHORACIC ECHO (TTE) COMPLETE W DOPPLER/CF WO CONTRAST (04/28/2020 11:26 AM PROTECTIVE SERVICE SPECIALIST) Anatomical Region Laterality Modality Ultrasound 04/28/2020 10:3 0 AM PROTECTIVE SERVICE SPECIALIST Narrative 04/28/2020 9:44 PM PROTECTIVE SERVICE SPECIALIST Patient name: Yuliana Johnson Date of test: 04/28/2020 Type of test: TTE w/Doppler [facility] #: [id number] Date of : 1940 (F) Microwave Oven Assembler: Bacilio Muñiz [facility] RVT Referring Physician: SP KILPATRICK MD Contrast Agent: Contrast Administered by: Supervised/Interpreted by: Sp Kilpatrick MD Diagnosis: Location: [facility] Reason for test: Non rheumatic [...] 2=Hypo 3=Akinetic 4=Dyskin./Aneurysm 0=Not visualized) Parasternal Long Page:MAS=1 BAS=1 MIL=1 ESTUARDO=1 Parasternal Short Page:MAS=1 MIS=1 AL=1 MIL=1 MAL=1 MA=1 Apical 4 Chambers:=1 MIS=1 BIS=1 BAL=1 MAL=1 AL=1 AC=1 Apical 2 Chambers:AI=1 AL=1 BI=1 BA=1 MA=1 AA=1 AC=1 LV Global [...] MD By signing this report, the attending senior graphic designer certifies that he or she has personally supervised and interpreted the echocardiogram and has reviewed and or edited and agrees with the written comments contained within the report. Procedure Note Sp Kilpatrick MD - 04/28/2020 Patient name: Yuliana Johnson Date of test: 04/28/2020 Type of test: TTE w/[facility] #: 0 Date of : 1940 (F) Microwave Oven Assembler: Bacilio Muñiz [facility] Referring Physician: SP KILPATRICK MD Contrast Agent: Contrast Administered by: Supervised/Interpreted by: Sp Kilpatrick MD Diagnosis: Location: [facility] Reason for test: Non rheumatic [...] 2=Hypo 3=Akinetic 4=Dyskin./Aneurysm 0=Not visualized) Parasternal Long Page:MAS=1 BAS=1 MIL=1 ESTUARDO=1 Parasternal Short Page:MAS=1 MIS=1 AL=1 MIL=1 MAL=1 MA=1 Apical 4 Chambers:=1 MIS=1 BIS=1 BAL=1 MAL=1 AL=1 AC=1 Apical 2 Chambers:AI=1 AL=1 BI=1 BA=1 MA=1 AA=1 AC=1 LV Global [...] MD By signing this report, the attending senior graphic designer certifies that he or she has personally supervised and interpreted the echocardiogram and has reviewed and or edited and agrees with the written comments contained within the report. us Sp Kilpatrick MD CV ECHO PROCEDURES Final Resul t documented in this encounter Visit Diagnoses Diagnosis Nonrheumatic mitral valve regurgitation documented in this encounter Care Teams Manager Bar Relationship Specialty Start Date End Date Cassius Chambers MD [address] [facility] [address] [place] [address] PCP - General 08/12/16 12/30/20 documented as of this encounter
--- OUTSIDE RECORDS SUMMARY | 2024-03-14 | XMS_ITS | Encounter Summary ---
Author Organization [facility] Address [address] [place] [address] Phone Care Team Providers Care Summer Clerk Name Role Phone Cassius Chambers MD Primary Care Provider [phone] Encounter Details Date Type Department Care Team (Late st Contact Info) Description 10/23/2020 Telephone [facility] Cardiology [address] [facility] 8th [place] [address] [place] [address] Sp Madrid MD [address] [facility] [address] [place] [address] Social History Tobacco Use Types Packs/Day Years Used Date Smoking Tobacco: Never Smokeless Tobacco: Never Alcohol Use Standard Drinks/Week Comments No 0 (1 standard drink = 0.6 oz pur e alcohol) Comments No Sex and Gender Information Value Date Recorded Sex Assigned at Not on file Legal Sex Female 11:30 PM COAGULATING OPERATOR Gender Identity Female 06/15/2023 1:45 PM [...] out of refills Pharmacy is [facility] @ [phone] documented in this encounter Plan of Treatment Not on file documented as of this encounter Visit Diagnoses Not on filedocumented in this encounter Discontinued Medications Medication Sig Discontinue Reason Start Date End Da te Eliquis 2.5 mg tablet Take 1 tablet by mouth twice daily Reorder 06/11/2020 10/23/2020 documented as of this encounter Care Teams Summer Clerk Relationship Specialty Start Date End Date Cassius Chambers MD [address] [place] [address] PCP - General 08/12/16 12/30/20 documented as of this encounter
--- OUTSIDE RECORDS SUMMARY | 2024-03-14 | XMS_ITS | Encounter Summary ---
Author Organization [facility] Address [address] [place] [address] Phone Care Team Providers Care Note Taker Name Role Phone Haris Lauren MD Primary Care Provider [phone] Reason for Visit * Reason Onset Date Comments Med Refill 03/24/2021 metformin Encounter Details Date Type Department Care Team (Late st Contact Info) Description 03/24/2021 Telephone [facility] Cardiology [address] [facility] 8th [place] [address] [place] [address] Sp Jeffrey MD [address] [facility] [address] [place] [address] Med Refill (metformin) Social History [...] on file Legal Sex Female 11:30 PM SOUND PERSON Gender Identity Female 06/15/2023 1:45 PM CDT Sexual Orientation Straight 06/15/2023 1: 45 PM CDT documented as of this encounter Miscellaneous Notes * Telephone Encounter - Mendy Torres RN - 03/24/2021 11:39 AM SOUND PERSON [facility] RepresentativeSigned 10:48 AM jeffrey ?? pts [...] out the medication ?? Attempted to call [facility], but an automatic recording stated that we needed 8 digit priority code to enter, otherwise nursing could not move forward. Called and spoke with pt's Pedrito and priority code given: [phone]. Called [facility] and automatic message stated that they were having trouble with reaching us for pt's Metformin. Then spoke with [facility] pharmacy picking tech who confirmed that Dr. Lauren had refilled pt's Metformin yesterday and it is being shipped out tomorrow to the pt. Called and spoke with pt's Pedrito making him aware. D PERSON * Telephone Encounter - Radha Dunham - [...] the okay to send out the medication D PERSON documented in this encounter Plan of Treatment Not on file documented as of this encounter Visit Diagnoses Not on filedocumented in this encounter Care Teams Note Taker Relationship Specialty Start Date End Date Haris Lauren MD PCP - General Family Medicine 12/31/20 06/07/21 documented as of this encounter
--- OUTSIDE RECORDS SUMMARY | 2024-03-14 | XMS_ITS | Encounter Summary ---
Author Organization [facility] Address [address] [place] [address] Care Team Providers Care Peer Specialist Name Role Phone Cassius Chambers MD Primary Care Provider [phone] Encounter Details Date Type Department Care Team (Late st Contact Info) Description 05/13/[address] [facility] Radiology [address] [place] [address] Estella Talley RN Social History Tobacco Use Types Packs/Day Years Used Date Smoking Tobacco: Never Smokeless Tobacco: Never Alcohol Use Standard Drinks/Week Comments No 0 (1 standard drink = 0.6 oz pur e alcohol) Comments No Sex and Gender Information Value Date Recorded Sex Assigned at Not on file Legal Sex Female 11:30 PM CRANE MECHANIC Gender Identity Female 06/15/2023 1:45 PM [...] on filedocumented in this encounter Care Teams Peer Specialist Relationship Specialty Start Date End Date Cassius Chambers MD [address] [place] [address] PCP - General 08/12/16 12/30/20 documented as of this encounter
--- OUTSIDE RECORDS SUMMARY | 2024-03-14 | XMS_ITS | Encounter Summary ---
Author Organization [facility] Healthcare Address [address] [place] [address] Care Team Providers Care Elementary School Professional Name Role Phone Cassius Chambers MD Primary Care Provider [phone] Encounter Details Date Type Department Care Team (Late st Contact Info) Description 05/22/[address] [facility] Radiology [address] [place] [address] Erin Sawyer RN Social History Tobacco Use Types Packs/Day Years Used Date Smoking Tobacco: Never Smokeless Tobacco: Never Alcohol Use Standard Drinks/Week Comments No 0 (1 standard drink = 0.6 oz pur e alcohol) Comments No Sex and Gender Information Value Date Recorded Sex Assigned at Not on file Legal Sex Female 11:30 PM DIRECTOR CUSTOMER Gender Identity Female 06/15/2023 1:45 PM CDT [...] on filedocumented in this encounter Care Teams Elementary School Professional Relationship Specialty Start Date End Date Cassius Chambers MD [address] [address] PCP - General 08/12/16 12/30/20 documented as of this encounter
--- OUTSIDE RECORDS SUMMARY | 2024-03-14 | XMS_ITS | Encounter Summary ---
Author Organization [facility] Address [address] [place] [address] Care Team Providers Care Bed Maker Name Role Phone Cassius Chambers MD Primary Care Provider [phone] Encounter Details Date Type Department Care Team (Late st Contact Info) Description 05/22/2020 Orders Only [facility] Radiology [address] [place] [address] Erin Sawyer RN Social History Tobacco Use Types Packs/Day Years Used Date Smoking Tobacco: Never Smokeless Tobacco: Never Alcohol Use Standard Drinks/Week Comments No 0 (1 standard drink = 0.6 oz pur e alcohol) Comments No Sex and Gender Information Value Date Recorded Sex Assigned at Not on file Legal Sex Female 11:30 PM BUSINESS ACCOUNT EXECUTIVE Gender Identity Female 06/15/2023 1:45 [...] on filedocumented in this encounter Care Teams Bed Maker Relationship Specialty Start Date End Date Cassius Chambers MD [address] [facility] [address] [place] [address] PCP - General 08/12/16 12/30/20 documented as of this encounter
--- OUTSIDE RECORDS SUMMARY | 2024-03-14 | XMS_ITS | Encounter Summary ---
Author Organization [facility] Address [address] [address] Care Team Providers Care Machine Steak Tenderizer Name Role Phone Haris Lauren MD Primary Care Provider Reason for Visit * Reason Comments Establish Care pt is here to est ca re. Encounter Details Date Type Department Care Team (Late st Contact Info) Description 12/31/2020 9:30 AM CDT Office Visit [facility] Primary Care at [address] [address] Haris Lauren MD [address] [address] Type 2 diabetes mellitus without [...] on file Legal Sex Female 11:30 PM FUNDRAISING ASSISTANT Gender Identity Female 06/15/2023 1:45 PM [...] Complaint Establish Care (pt is here to [facility]. ) 80-year-old female. She has seen internal medicine at [facility]. Cardiology at [facility] as well. Currently doing well, baseline. Some [...] and Family: Not on file ??? Attends [employer]: Not on file ??? Active Member [...] Screener Hearing exam completed with a Castañeda Medon headphone audiometer. Assessment/Plan Diagnoses and all orders for this visit: Type 2 diabetes mellitus without complication, without long-term current use of insulin ([facility]) ([facility]) (Primary) - current A1c at 5.3. 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
--- OUTSIDE RECORDS SUMMARY | 2024-03-14 | XMS_ITS | Encounter Summary ---
Author Organization [facility] Healthcare Address [address] [place] [address] Care Team Providers Care Parquet Floor Layer Name Role Phone Cassius Chambers MD Primary Care Provider [phone] Encounter Details Date Type Department Care Team (Late st Contact Info) Description 05/07/2020 Telephone [facility] Radiology 1 [place] [address] Estella Talley RN Social History Tobacco Use Types Packs/Day Years Used Date Smoking Tobacco: Never Smokeless Tobacco: Never Alcohol Use Standard Drinks/Week Comments No 0 (1 standard drink = 0.6 oz pur e alcohol) Comments No Sex and Gender Information Value Date Recorded Sex Assigned at Not on file Legal Sex Female 11:30 PM CASH APPLICATIONS CLERK Gender Identity Female 06/15/2023 1:45 PM CDT Sexual Orientation Straight 06/15/2023 1: 45 PM CDT documented as of this encounter Miscellaneous Notes * Telephone Encounter - Estella Talley RN - 05/07/2020 9:53 AM CASH APPLICATIONS CLERK [facility] Radiology. Mr. Pedrito Johnson (patient's ) called [...] imaging CD and we will plan accordingly APPLICATIONS CLERK documented in this encounter Plan of Treatment Not on file documented as of this encounter Visit Diagnoses Not on filedocumented in this encounter Care Teams Parquet Floor Layer Relationship Specialty Start Date End Date Cassius Chambers MD [address] [address] PCP - General 08/12/16 12/30/20 documented as of this encounter
--- OUTSIDE RECORDS SUMMARY | 2024-03-14 | XMS_ITS | Encounter Summary ---
Author Organization [facility] Healthcare Address [address] [address] Care Team Providers Care Geodetic Computator Name Role Phone Haris Lauren MD Primary Care Provider [phone] Encounter Details Date Type Department Care Team (Late st Contact Info) Description 05/11/2021 7:57 AM CDT Anesthesia Event [facility] Operating Room 1 [place] [address] Galdino Isaac MD [address] [place] [address] Aravind Mei MD [address] [place] [address] Anesthesia Record Procedure Summary Procedure Name Responsible [...] 0905; Abdomen; 01/31/24 (Retired LDA, Removed/Completed by Kidaro with LDA Utility); 1213 (Retired LDA, Removed/Completed by Kidaro with LDA Utility) 05/11/21 0905 by Ingrid [...] on file Legal Sex Female 11:30 PM CCIE Gender Identity Female 06/15/2023 1:45 PM CDT Sexual Orientation Straight 06/15/2023 1: 45 PM CDT documented as of this encounter OR Notes * Anesthesia Postprocedure Evaluation - Capri Michelle MD - 05/11/2021 12:45 PM CDT Patient: Yuliana Johnson Procedure Summary Date: 05/11/21 Room / Location: [facility] OR POD 2 ROOM 209 / [facility] OR POD 2 Anesthesia Start: 0757 Anesthesia [...] - patient participated Level of consciousness: arouses sales and service consultant Pain management: adequate Airway patency: adequate Evidence [...] Catheter Patient location: OR Staff: Placed by: SERVICE TECHNICIAN COPIER: Brigid Meyers CRNA Preprocedure prep: Prep solution: [...] note were not included. Anesthesia Evaluation Yuliana Jhonson is a 80 y.o. female Procedure(s): LAPAROSCOPIC [...] PATIENT DUE TO USING [facility] carvediloL (COREG) 25 mg tablet 03/26/21 -- Haris Lauren MD Take 1 tablet (25 mg total) by mouth 2 (two) times a day with meals clonazePAM (KlonoPIN) 0.5 mg tablet 03/25/21 -- Haris Lauren MD Take 1 tablet by mouth at bedtime as needed for anxiety fenofibrate (TRIGLIDE) 160 mg tablet 03/26/21 -- Haris Lauren MD Take 1 tablet (160 mg total) by mouth daily losartan (COZAAR) 100 mg tablet 03/26/21 -- Haris Lauren MD Take 1 tablet (100 mg total) [...] alendronate (FOSAMAX) 70 mg tablet 03/26/21 03/26/22 Harsi Lauren MD Take 1 tablet (70 mg [...] Medication protocol when under care of a SERVICE TECHNICIAN COPIER Planned anesthesia: General Team communication plan: oral ET tube Induction: Induction: intravenous. Postoperative Plan: No postoperative mechanical ventilation intended. Informed Consent: Discussed plan with SERVICE TECHNICIAN COPIER. Anesthesia plan and risks discussed with patient. [...] Procedure Name Priority Date/Time Associated Diagnosis Comments [place] AN PROCEDURE PLACEHOLDER Routine 05/11/2021 8:36 AM CDT [place] AN PROCEDURE PLACEHOLDER Routine 05/11/2021 8:35 AM CDT [place] AN ELECTIVE ENDOTRACHEAL AIRWAY Routine 05/11/2021 8:35 AM CDT documented in this encounter Results * [place] AN PROCEDURE PLACEHOLDER (05/11/2021 8:36 AM CDT) [...] MD ANESTHESIA ORDERABLES Miranda l Result * [place] AN ELECTIVE ENDOTRACHEAL AIRWAY, [place] AN PROCEDURE PLACEHOLDER (05/11/2021 8:35 AM CDT) Narrative Brigid Meyers CRNA - 05/11/2021 8:35 AM CDT Brigid Meyers CRNA ? 05/11/2021 ??8:36 AM Airway Patient location: OR Urgency: elective Indications for airway management: anesthesia Difficult airway: no Staff: Supervising provider: Galdino Isaac MD Placed by: SERVICE TECHNICIAN COPIER: Brigid Meyers CRNA Emergent airway documentation: Risks [...] mg documented in this encounter Care Teams Geodetic Computator Relationship Specialty Start Date End Date Haris Lauren MD PCP - General Family Medicine 12/31/20 06/07/21 documented as of this encounter
--- OUTSIDE RECORDS SUMMARY | 2024-03-14 | XMS_ITS | Encounter Summary ---
Author Organization [facility] Address [address] [place] [address] Phone Care Team Providers Care Coin Rolling Machine Operator Name Role Phone Cassius Chambers MD Primary Care Provider [phone] Encounter Details Date Type Department Care Team (Late st Contact Info) Description 06/02/2020 Telephone [facility] Cardiology [address] [facility] 8th [place] [address] [place] [address] Sp Madrid MD [address] [facility] [address] [place] [address] Social History Tobacco Use Types Packs/Day Years Used Date Smoking Tobacco: Never Smokeless Tobacco: Never Alcohol Use Standard Drinks/Week Comments No 0 (1 standard drink = 0.6 oz pur e alcohol) Comments No Sex and Gender Information Value Date Recorded Sex Assigned at Not on file Legal Sex Female 11:30 PM PATIENT CARE Gender Identity Female 06/15/2023 1:45 PM CDT [...] CDT Madrid Carvedilol 25mg 2/D # [address] [facility] documented in this encounter Plan of Treatment Not on file documented as of this encounter Visit Diagnoses Not on filedocumented in this encounter Discontinued Medications Medication Sig Discontinue Reason Start Date End Da te carvediloL (COREG) 25 mg tablet Take 1 tablet by mouth twice daily Reorder 06/04/2019 06/02/2020 documented as of this encounter Care Teams Coin Rolling Machine Operator Relationship Specialty Start Date End Date Csasius Chambers MD [address] [address] PCP - General 08/12/16 12/30/20 documented as of this encounter
--- OUTSIDE RECORDS SUMMARY | 2024-03-14 | XMS_ITS | Encounter Summary ---
Author Organization [facility] Healthcare Address [address] [place] [address] Care Team Providers Care Cryptologic Technician Technical Name Role Phone Cassius Chambers MD Primary Care Provider [phone] Encounter Details Date Type Department Care Team (Late st Contact Info) Description 05/07/2020 Telephone [facility] Radiology 1 [place] [address] Estella Talley RN Social History Tobacco Use Types Packs/Day Years Used Date Smoking Tobacco: Never Smokeless Tobacco: Never Alcohol Use Standard Drinks/Week Comments No 0 (1 standard drink = 0.6 oz pur e alcohol) Comments No Sex and Gender Information Value Date Recorded Sex Assigned at Not on file Legal Sex Female 11:30 PM BOILER ENGINEER Gender Identity Female 06/15/2023 1:45 PM CDT Sexual Orientation Straight 06/15/2023 1: 45 PM CDT documented as of this encounter Miscellaneous Notes * Telephone Encounter - Estella Talley RN - 05/07/2020 12:59 PM BOILER ENGINEER MSK Radiology. Patient's daughter delivered imaging CD (CT L spine & radiographs L spine 4 [id number]) uploaded/referenced in stacie. Sent to Dr. Puga for review ER ENGINEER documented in this encounter Plan of Treatment Not on file documented as of this encounter Visit Diagnoses Not on filedocumented in this encounter Care Teams Cryptologic Technician Technical Relationship Specialty Start Date End Date Cassius Chambers MD [address] [address] PCP - General 08/12/16 12/30/20 documented as of this encounter
--- OUTSIDE RECORDS SUMMARY | 2024-03-14 | XMS_ITS | Encounter Summary ---
Author Organization [facility] Healthcare Address [address] [place] [address] Care Team Providers Care Flight Engineer Name Role Phone Cassius Chambers MD Primary Care Provider [phone] Encounter Details Date Type Department Care Team (Late st Contact Info) Description 05/13/2020 Telephone [facility] Radiology 1 [place] [address] Estella Talley RN Social History Tobacco Use Types Packs/Day Years Used Date Smoking Tobacco: Never Smokeless Tobacco: Never Alcohol Use Standard Drinks/Week Comments No 0 (1 standard drink = 0.6 oz pur e alcohol) Comments No Sex and Gender Information Value Date Recorded Sex Assigned at Not on file Legal Sex Female 11:30 PM MANAGER COMPENSATION Gender Identity Female 06/15/2023 1:45 PM CDT [...] on filedocumented in this encounter Care Teams Flight Engineer Relationship Specialty Start Date End Date Cassius Chambers MD [address] [address] PCP - General 08/12/16 12/30/20 documented as of this encounter
--- OUTSIDE RECORDS SUMMARY | 2024-03-14 | XMS_ITS | Encounter Summary ---
Author Organization [facility] Address [address] [place] [address] Phone Care Team Providers Care Talent Acquisition Specialist Name Role Phone Cassius Chambers MD Primary Care Provider [phone] Encounter Details Date Type Department Care Team (Latest Contact Info) Description 11/10/2020 11:30 AM CDT Office Visit [facility] Cardiology [address] [facility] [address] [place] [address] Sp Madrid MD [address] [facility] [address] [place] [address] Nonrheumatic mitral valve regurgitation (Primary Dx) Social History Tobacco Use Types Packs/Day Years Used Date Smoking Tobacco: Never Smokeless Tobacco: Never Alcohol Use Standard Drinks/Week Comments No 0 (1 standard drink = 0.6 oz pur e alcohol) Comments No Sex and Gender Information Value Date Recorded Sex Assigned at Not on file Legal Sex Female 11:30 PM MANAGER AUTO Gender Identity Female 06/15/2023 1:45 PM CDT [...] normal 10/09/2018 Tc 112, HDL=34 LDL =56 Majdqm=818 HbA1C 6.2 ECG done today : Assesment/Plan: [...] regarding her cardiac problems. Damien Norton MD rn transport Cardiology Division [facility] documented in this encounter Plan of Treatment Not on file documented as of this encounter Visit Diagnoses Diagnosis Nonrheumatic mitral valve regurgitation- Primary documented in this encounter Care Teams Talent Acquisition Specialist Relationship Specialty Start Date End Date Cassius Chambers MD [address] [address] PCP - General 08/12/16 12/30/20 documented as of this encounter
--- OUTSIDE RECORDS SUMMARY | 2024-03-14 | XMS_ITS | Encounter Summary ---
Author Organization [facility] Address [address] [place] [address] Care Team Providers Care Boilermaker Mechanic Name Role Phone Cassius Chambers MD Primary Care Provider Encounter Details Date Type Department Care Team (Late st Contact Info) Description 09/10/2020 [facility] [address] [facility] [address] [place] [address] Cassius Chambers MD [address] [facility] [address] [place] [address] Social History Tobacco Use Types Packs/Day Years Used Date Smoking Tobacco: Never Smokeless Tobacco: Never Alcohol Use Standard Drinks/Week Comments No 0 (1 standard drink = 0.6 oz pur e alcohol) Comments No Sex and Gender Information Value Date Recorded Sex Assigned at Not on file Legal Sex Female 11:30 PM CRAP SHOOTER Gender Identity Female 06/15/2023 1:45 PM CDT [...] on filedocumented in this encounter Care Teams Boilermaker Mechanic Relationship Specialty Start Date End Date Cassius Chambers MD [address] [place] [address] PCP - General 08/12/16 12/30/20 documented as of this encounter
--- OUTSIDE RECORDS SUMMARY | 2024-03-14 | XMS_ITS | Encounter Summary ---
Author Organization [facility] Healthcare Address [address] [place] [address] Care Team Providers Care Senior Risk Analyst Name Role Phone Cassius Chambers MD Primary Care Provider Encounter Details Date Type Department Care Team (Late st Contact Info) Description 05/23/2020 Orders Only [facility] Neuro Interventional Radiology 1 [place] [address] Brianna Carvajal RN Social History Tobacco Use Types Packs/Day Years Used Date Smoking Tobacco: Never Smokeless Tobacco: Never Alcohol Use Standard Drinks/Week Comments No 0 (1 standard drink = 0.6 oz pur e alcohol) Comments No Sex and Gender Information Value Date Recorded Sex Assigned at Not on file Legal Sex Female 11:30 PM CARTRIDGE ASSEMBLING MACHINE ADJUSTER Gender Identity Female 06/15/2023 1:45 PM CDT Sexual Orientation Straight 06/15/2023 1: 45 PM CDT documented as of this encounter Plan of Treatment Not on file documented as of this encounter Visit Diagnoses Not on filedocumented in this encounter Care Teams Senior Risk Analyst Relationship Specialty Start Date End Date Cassius Chambers MD [address] [facility] [address] [place], [place] [address] PCP - General 08/12/16 12/30/20 documented as of this encounter
--- OUTSIDE RECORDS SUMMARY | 2024-03-14 | XMS_ITS | Encounter Summary ---
Author Organization [facility] Address [address] [place] [address] Care Team Providers Care Oyster Planter Name Role Phone Cassius Chambers MD Primary Care Provider Encounter Details Date Type Department Care Team (Late st Contact Info) Description 05/09/2020 [facility] [address] [facility] [address] [facility] [place] [address] Cassius Chambers MD [address] [facility] [address] [place] [address] Social History Tobacco Use Types Packs/Day Years Used Date Smoking Tobacco: Never Smokeless Tobacco: Never Alcohol Use Standard Drinks/Week Comments No 0 (1 standard drink = 0.6 oz pur e alcohol) Comments No Sex and Gender Information Value Date Recorded Sex Assigned at Not on file Legal Sex Female 11:30 PM PILOT SAFETY INSPECTOR Gender Identity Female 06/15/2023 1:45 PM CDT Sexual Orientation Straight 06/15/2023 1: 45 PM CDT documented as of this encounter Miscellaneous Notes * Result Encounter Note - Melanie Wilkes MA - 05/13/2020 11:52 AM CDT Message sent to interventional radiology * Telephone Encounter - Melanie Wilkes MA - 05/09/2020 9:06 AM CST PATIENT GOING TO [facility] FOR LABS ORDER FAXED T SAFETY INSPECTOR * Telephone Encounter - Melanie Wilkes MA - 05/09/2020 8:57 AM CST ----- Message from Estella Talley RN sent at 05/08/2020 8:56 AM PILOT SAFETY INSPECTOR ----- Regarding: CBC, CMP, PT/INR, aPTT needed [...] Melanie Wilkes MA Sent: 05/06/2020 8:27 AM PILOT SAFETY INSPECTOR To: EDD Roberts I will contact patient but how or where do these films need to go to. Where does patient bring films or have them mailed. Thanks Melanie ----- Message ----- From: Estella Talley RN Sent: 05/02/2020 3:17 PM PILOT SAFETY INSPECTOR To: Melanie Wilkes MA, Erin Sawyer RN Subject: Vertebroplasty referral Cathryn Self referral was placed requesting a T12 vertebral augmentation. I see a CT L spine report from 03-22-20 ([facility] in [place], [place]) with mention of xrays as well. [...] know when the imaging is uploaded in [employer] and we will go from there. Thank you and enjoy your weekend T SAFETY INSPECTOR documented in this encounter Plan of Treatment Not on file documented as of this encounter Procedures Procedure Name Priority Date/Time Associated Diagnosis Comments SCAN - LABS 05/09/2020 5:35 PM PILOT SAFETY INSPECTOR SCAN - LABS 05/09/2020 2:53 PM PILOT SAFETY INSPECTOR SCAN - LABS 05/09/2020 2:51 PM PILOT SAFETY INSPECTOR documented in this encounter Results * SCAN - LABS (05/09/2020 5:35 PM PILOT SAFETY INSPECTOR) us Cassius Chambers MD Final Result * SCAN - LABS (05/09/2020 2:53 PM PILOT SAFETY INSPECTOR) us Cassius Chambers MD Final Result * SCAN - LABS (05/09/2020 2:51 PM PILOT SAFETY INSPECTOR) us Cassius Chambers MD Final Result documented in this encounter Visit Diagnoses Not on filedocumented in this encounter Care Teams Oyster Planter Relationship Specialty Start Date End Date Cassius Chambers MD [address] [address] PCP - General 08/12/16 12/30/20 documented as of this encounter
--- OUTSIDE RECORDS SUMMARY | 2024-03-14 | XMS_ITS | Encounter Summary ---
Author Organization [facility] Address [address] [place] [address] Care Team Providers Care Sebd Teacher Name Role Phone Cassius Chambers MD Primary Care Provider [phone] Reason for Visit * Reason Onset Date Comments Back Pain 05/01/2020 Encounter Details Date Type Department Care Team (Late st Contact Info) Description 05/01/2020 [facility] [address] [facility] [address] [place] [address] Cassius Chambers MD [address] [facility] [address] [place] [address] Back Pain Social History Tobacco Use Types Packs/Day Years Used Date Smoking Tobacco: Never Smokeless Tobacco: Never Alcohol Use Standard Drinks/Week Comments No 0 (1 standard drink = 0.6 oz pur e alcohol) Comments No Sex and Gender Information Value Date Recorded Sex Assigned at Not on file Legal Sex Female 11:30 PM COMPLEX HUMAN RESOURCES MANAGER Gender Identity Female 06/15/2023 1:45 PM CDT Sexual Orientation Straight 06/15/2023 1: 45 PM CDT documented as of this encounter Miscellaneous Notes * Addendum Note - Hai Brantley MA - 05/01/2020 12:55 PM CSTAddended by: HAI BRANTLEY on: 05/01/2020 12:55 PM Modules accepted: Orders LEX HUMAN RESOURCES MANAGER * Telephone Encounter - Hai Brantley MA - 05/01/2020 12:53 PM CST Patient aware Order put in [facility] for interventional radiology LEX HUMAN RESOURCES MANAGER * Telephone Encounter - Cassius Chambers MD - 05/01/2020 9:43 AM CST Okay vertebroplasty-interventional r radiology LEX HUMAN RESOURCES MANAGER * Telephone Encounter - Hai Brantley MA - 05/01/2020 9:17 AM CST Patient calling and states wants to go ahead and get referred for Vertebroplasty LEX HUMAN RESOURCES MANAGER documented in this encounter Plan of Treatment Not on file documented as of this encounter Visit Diagnoses Diagnosis Compression fracture of T12 vertebra, initial encounter (HCC)- Primary documented in this encounter Care Teams Sebd Teacher Relationship Specialty Start Date End Date Cassius Chambers MD [address] [place] [address] PCP - General 08/12/16 12/30/20 documented as of this encounter
--- OUTSIDE RECORDS SUMMARY | 2024-03-14 | XMS_ITS | Encounter Summary ---
Author Organization [facility] Healthcare Address [address] [place] [address] Care Team Providers Care Project Mgr Name Role Phone Cassius Chambers MD Primary Care Provider [phone] Encounter Details Date Type Department Care Team (Late st Contact Info) Description 05/08/2020 Telephone [facility] Radiology 1 [place] [address] Estella Talley RN Social History Tobacco Use Types Packs/Day Years Used Date Smoking Tobacco: Never Smokeless Tobacco: Never Alcohol Use Standard Drinks/Week Comments No 0 (1 standard drink = 0.6 oz pur e alcohol) Comments No Sex and Gender Information Value Date Recorded Sex Assigned at Not on file Legal Sex Female 11:30 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 Dr. Puga reviewed CD imaging a [...] still prescribing MD with Mr. Johnson yesterday) ET DRILLER documented in this encounter Plan of Treatment Not on file documented as of this encounter Visit Diagnoses Not on filedocumented in this encounter Care Teams Project Mgr Relationship Specialty Start Date End Date Cassius Chambers MD [address] [address] PCP - General 08/12/16 12/30/20 documented as of this encounter
--- OUTSIDE RECORDS SUMMARY | 2024-03-14 | XMS_ITS | Encounter Summary ---
Author Organization [facility] Healthcare Address [address] [place] [address] Care Team Providers Care Draw Tender Name Role Phone Cassius Chambers MD Primary Care Provider [phone] Encounter Details Date Type Department Care Team (Late st Contact Info) Description 05/02/2020 Telephone [facility] Radiology 1 [place] [address] Estella Talley RN Social History Tobacco Use Types Packs/Day Years Used Date Smoking Tobacco: Never Smokeless Tobacco: Never Alcohol Use Standard Drinks/Week Comments No 0 (1 standard drink = 0.6 oz pur e alcohol) Comments No Sex and Gender Information Value Date Recorded Sex Assigned at Not on file Legal Sex Female 11:30 PM SPINNER CONCRETE PIPE Gender Identity Female 06/15/2023 1:45 PM CDT Sexual Orientation Straight 06/15/2023 1: 45 PM CDT documented as of this encounter Miscellaneous Notes * Telephone Encounter - Estella Talley RN - 05/02/2020 3:24 PM SPINNER CONCRETE PIPE MSK Radiology. Referral received from Dr. Chambers's office requesting T12 vertebral augmentation. No imaging available for review in Epic of spine Report in media aid from [facility] in [place], [place] of CT L spine 03-22-20 with mention of abnormal radiographs. Message sent to MIGUEL Navarro at Dr. Chambers's office requesting imaging be uploaded for review. In addition, the patient takes Eliquis (Negative Turner Apprentice: Dr. Sp Madrid) and will need new lab work (CBC, CMP, PT/INR, aPTT). Cr level needed to determine eliquis hold time as per protocol NER CONCRETE PIPE documented in this encounter Plan of Treatment Not on file documented as of this encounter Visit Diagnoses Not on filedocumented in this encounter Care Teams Draw Tender Relationship Specialty Start Date End Date Cassius Chambers MD [address] [address] PCP - General 08/12/16 12/30/20 documented as of this encounter
--- OUTSIDE RECORDS SUMMARY | 2024-03-14 | XMS_ITS | Encounter Summary ---
Author Organization [facility] Healthcare Address [address] [place] [address] Care Team Providers Care Automotive Customer Experience Advisor Name Role Phone Cassius Chambers MD Primary Care Provider [phone] Encounter Details Date Type Department Care Team (Late st Contact Info) Description 05/13/2020 Telephone [facility] Radiology [address] [place] [address] Estella Talley RN Social History Tobacco Use Types Packs/Day Years Used Date Smoking Tobacco: Never Smokeless Tobacco: Never Alcohol Use Standard Drinks/Week Comments No 0 (1 standard drink = 0.6 oz pur e alcohol) Comments No Sex and Gender Information Value Date Recorded Sex Assigned at Not on file Legal Sex Female 11:30 PM WORKERS COMPENSATION CLAIMS EXAMINER Gender Identity Female 06/15/2023 1:45 PM CDT [...] NPO instructions: Yes. NPO after 0300 Indicated pick up and delivery driver (family/friend) required: Yes ( will accompany her) Anticoagulant/Antiplatelet use: Yes. Liliana 5 day hold required/approved and instructed that she should hold starting on 05-18-20 Insurance PA needed: NPR (Medicare/[facility]) documented in this encounter Plan of Treatment Not on file documented as of this encounter Visit Diagnoses Not on filedocumented in this encounter Care Teams Automotive Customer Experience Advisor Relationship Specialty Start Date End Date Cassius Chambers MD [address] [address] PCP - General 08/12/16 12/30/20 documented as of this encounter
--- OUTSIDE RECORDS SUMMARY | 2024-03-14 | XMS_ITS | Encounter Summary ---
Author Organization [facility] Healthcare Address [address] [place] [address] Care Team Providers Care Commercial Maintenance Technician Name Role Phone Haris Lauren MD Primary Care Provider [phone] Reason for Visit * Reason Comments Abdominal Pain Encounter Details Date Type Department Care Team (Late st Contact Info) Description 05/11/2021 7:30 AM CDT - 05/11/2021 11:35 AM CDT Surgery [facility] Operating Room [address] [place] [address] Stephanie Castelan MD [address] [place] [address] [id number] LAPAROSCOPIC CHOLECYSTECTOMY Surgery Details Date/Time Status Location [...] Aranda MD Resident - Assisting General S [facility] 1 Stephanie Castelan MD Primary [...] on file Legal Sex Female 11:30 PM AUTO TIRE RECAPPER Gender Identity Female 06/15/2023 1:45 PM CDT [...] (134 lb 14.7 oz) 05/10/2021 1:45 AM AUTO TIRE RECAPPER Height 154.9 cm (5' 0.98 ) 05/10/2021 1 2:30 AM AUTO TIRE RECAPPER Body Mass Index 25.51 05/10/2021 12:30 AM AUTO TIRE RECAPPER documented in this encounter Discharge Summaries * Sandi Azar PA - 05/12/2021 9:53 AM CDT [facility] Acute Care Surgery Inpatient Discharge Summary [...] PRN lasix CVA (cerebral vascular accident) (CMS/HCC) (FORMERLY [facility]) Assessment & Plan -Most [...] on augmentin x4d Follow up: --Appointment: ACES BAR WAITER/WAITRESS follow up Doximity phone call scheduled --Pathology/Cultures: [...] you have any questions/concerns please call the [facility] office at [phone] or if you have something urgent please [...] your blood thinner, Eliquis, tomorrow (05/13) morning. [facility] Acute Care Surgery Discharge Instructions Care [...] incisions (Neosporin or Vaseline) ??? Only take [id number] or prescription medicines for pain, discomfort, or [...] Up Call [facility] at [phone] Follow up Future Appointments Date Time Provider Department Center 05/18/2021 9:30 AM Sp Madrid MD [facility] Cardiology 05/27/2021 1:00 PM [facility] ACCS BAR WAITER/WAITRESS [facility] COH ACCS [facility] 07/01/2021 10:30 AM Haris Lauren MD PCP [...] RN - 05/12/2021 1:34 PM CDT 05/12/21 0658 Discharge Summary Chart reviewed For Medical Necessity [...] home. If needed, my mobile phone is [phone] * Michelle Hudson, DPT - 05/12/2021 7:57 [...] setting. Prior Function Prior Function Level of Lowry: Independent functional transfers, Independent with ambulation Lives With: Spouse Receives Help From: Spouse/Significant other, Family (multimedia educational specialist assist) Fall within the last 6 [...] treatment team and contact the PT or PASTRY FINISHER currently assigned to this patient. If a physical therapy clinician is not assigned to this patient, please call [phone]. * Nancy Nelson MD - 05/11/2021 10:29 AM CDT ACCS Post Op Check Note Shavon Carter Elizabeth 1940 [id number] 80 y.o. female with PMH s/f T2DM, [...] Carbohydrate Diet effective now Question Answer Comment ([facility]) Diet type Clear Liquid ([facility]) Diet type Restricted Diabetic: Consistent Carbohydrate 05/11/21 [...] Insurance Coverage: Medicare A & B and [facility] Prescription Coverage: yes Pharmacy: [facility] Primary Care Provider: Haris Lauren MD Prior to Admission: Primary Caregiver: Self Support System: Spouse/Significant Other Support system contact info (name, phone, availablity): greer Major [phone] Home Care Services: No Durable Medical Equipment: [...] Collaboration with patient, MD, direct care nurse, Grill Prep Cook, Nurse Coordinator and other members of the health care team to assure needed interventions completed. 2. Return patient to optimal level of self-care post discharge. 3. Relief Salesperson will follow for Discharge Planning - interventions [...] documented in this encounter Consult Notes * rOi Padilla MD - 05/09/2021 5:48 PM CST [facility] Acute Care Surgery Consultation Encounter Date: [...] Michell Lucia MD at 05/09/2021 10:48 PM AUTO TIRE RECAPPER TIRE RECAPPER TIRE RECAPPER Associated attestation - Michell Lucia MD - 05/09/2021 10:48 PM AUTO TIRE RECAPPER I have seen and examined the patient [...] US. By: Michell Luo MD Time: 05/09 2159 Value: US RUQ Comment: Borderline findings of [...] the resident's note. Anthony Beth MD 05/10/211906 TIRE RECAPPER * Sandi Wooten RN - 05/09/2021 1:14 PM CST Patient here with right upper abdominal/flank pain. She states the pain started last night around 1700 but her states the pain has been hurting her for the past couple of days. She denies N/V/D. She also denies any urinary problems. PMH of abiel alaniz DM, HTN and hyperlipidemia. TIRE RECAPPER documented in this encounter Miscellaneous Notes * [...] medical record. Andrew Kincaid MD, CCDS Clinical Director Of Architecture Email: [email or web address] * Plan of Care - Ariadna Warren [...] AM CDT OPERATIVE REPORT Shavon Singh 1940 [id number] DATE OF SERVICE: 05/11/21 SURGEON: Stephanie Castelan MD MEDICAL SERVICES ASSISTANT: Rivka Aranda PGY2 PROCEDURE: Laparoscopic cholecystectomy PREOPERATIVE [...] fashion. A time-out was performed according to [facility] policy. A Veress needle was used to [...] Resident - Assisting Anesthesiologist: Galdino Isaac MD HI TEACHER: Brigid Meyers [employer] Tanker Truck Driver: Ingrid Hou RN Scrub Relief: Khurram Villar [...] Michell Luo MD - 05/09/2021 6:52 PM AUTO TIRE RECAPPER ED Re-evaluation TRANSITION OF CARE I, Michell [...] Anthony Beth MD - 05/09/2021 3:31 PM AUTO TIRE RECAPPER Associated Order(s): ECG 12 lead Procedure ECG [...] in the ED Anthony Beth MD 05/09/21 4669 TIRE RECAPPER documented in this encounter Plan of Treatment [...] GLUCOSE DEVICE Routine 05/10/2021 1 2:01 AM AUTO TIRE RECAPPER TROPONIN I HIGH-SENSITIVITY 4-HOUR Timed 05/09/2021 9:22 PM AUTO TIRE RECAPPER US RUQ ED 05/09/2021 8:35 PM AUTO TIRE RECAPPER XR CHEST PA LATERAL 2 VIEWS ED 05/09/2021 7:21 PM AUTO TIRE RECAPPER INFLUENZA A/B, RSV, AND COVID-19 PCR Routine 05/09/2021 6:20 PM AUTO TIRE RECAPPER TROPONIN I HIGH-SENSITIVITY 2-HOUR Timed 05/09/2021 6:20 PM [address] TIRE REC[address] CT ABDOMEN PELVIS W CONTRAST ED 05/09/2021 5:10 PM AUTO TIRE RECAPPER POCT GLUCOSE DEVICE Routine 05/09/2021 4 :51 PM AUTO TIRE RECAPPER ECG 12-LEAD Routine 05/09/2021 3:31 PM AUTO TIRE RECAPPER URINALYSIS AND REFLEX TO MICROSCOPIC AND CULTURE Routine 05/09/2021 3:08 PM AUTO TIRE RECAPPER URINALYSIS, MICROSCOPIC ONLY Routine 05/09/2021 3:08 PM AUTO TIRE RECAPPER TROPONIN I HIGH-SENSITIVITY SERIES (BASELINE, 2HR, 4HR, 6HR) STAT 05/09/2021 3:07 PM AUTO TIRE RECAPPER EGFR STAT 05/09/2021 3:07 PM AUTO TIRE RECAPPER DIFFERENTIAL AUTO STAT 05/09/2021 3:0 7 PM AUTO TIRE RECAPPER CBC WITH AUTO DIFFERENTIAL STAT 05/09/2021 3:07 PM AUTO TIRE RECAPPER LIPASE STAT 05/09/2021 3:07 PM AUTO TIRE RECAPPER COMPREHENSIVE METABOLIC PANEL STAT 05/09/2021 3:07 PM AUTO TIRE RECAPPER POCT GLUCOSE DEVICE Routine 05/09/2021 1 :21 PM AUTO TIRE RECAPPER documented in this encounter Results * POCT glucose (05/12/2021 8:12 AM CDT) Glucose, POC 93 70 - 199 mg/dL [facility] Blood 05/12/2021 8:12 AM CDT 05/12/2021 8:12 AM CDT us Stephanie Castelan MD LAB POCT ORDERABLES - DACIA CE Final Result [facility] [place] [address] * POCT glucose (05/12/2021 4:45 AM CDT) [facility] Glucose, POC 92 70 - 199 mg/dL [facility] Blood 05/12/2021 4:45 AM CDT 05/12/2021 4:45 AM CDT Sheridan Haney MD LAB POCT ORDERABLES - DEVICE Fin al Result [facility] [place] [address] * (ABNORMAL) eGFR (05/12/2021 4:30 AM CDT) [facility] eGFR 50(L) 90 - 130 mL/min/1. 73 m2 [facility] Comment: Interpretive Data Reference Interval Normal [...] AM CDT 05/12/2021 4:40 AM CDT Sheridan Hnaey MD LAB BLOOD ORDERABLES Final Resul t Performing Organization Address [facility] Co de Phone Number [facility] [place] [address] * (ABNORMAL) aPTT (05/12/2021 4:30 AM CDT) aPTT 57(H) 27 - 37 sec [facility] Comment: Interpretive Data Therapeutic heparin range: 60.0 - 94.0 seconds. Based on correlation with therapeutic heparin activity range of 0.3-0.7 Units/mL. Current interpretive data was last revised on 2020. Blood 05/12/2021 4:30 AM CDT 05/12/2021 4:50 AM CDT Narrative [facility] - 05/12/2021 5:00 AM CDT Draw [...] ORDERABLES Final Resul t Performing Organization Address [facility] Co de Phone Number [facility] [place] [address] * Phosphorus (05/12/2021 4:30 AM CDT) Phosphorus, pl 3.0 2.3 - 4.5 mg/dL [facility] Blood 05/12/2021 4:30 AM CDT 05/12/2021 4:40 AM CDT Sheridan Haney MD LAB BLOOD ORDERABLES Final Resul t Performing Organization Address City/[facility] Co de Phone Number [facility] [place] [address] * Magnesium (05/12/2021 4:30 AM CDT) Magnesium 2.2 1.4 - 2.5 mg/dL [facility] Blood 05/12/2021 4:30 AM CDT 05/12/2021 4:40 AM CDT Sheridan Haney MD LAB BLOOD ORDERABLES Final Resul t Performing Organization Address [facility] de Phone Number [facility] [place] [address] * (ABNORMAL) Comprehensive metabolic panel (05/12/2021 4:30 AM CDT) Pathologist [facility] Sodium 139 135 - 145 mmol/L [facility] Potassium, pl 4.1 3.3 - 4.9 mmol/L [facility] Chloride 110 97 - 110 mmol/L [facility] CO2 24 22 - 32 mmol/L [facility] Anion gap 5 2 - 15 mmol/L [facility] BUN 14 8 - 25 mg/dL [facility] Creatinine 1.10 0.60 - 1.10 mg/dL [facility] Glucose 97 70 - 199 mg/dL [facility] Comment: Interpretive Data Fasting glucose [...] 2017. Calcium 7.7(L) 8.5 - 10.3 mg/dL [facility] Bilirubin, total 0.6 0.1 - 1.2 mg/dL [facility] Protein, pl 5.5(L) 6.5 - 8.5 g/dL [facility] Albumin 3.0(L) 3.5 - 5.0 g/dL [facility] Alk phos 37(L) 40 - 130 Units/L [facility] ALT 154(H) 7 - 45 Units/L [facility] Comment:Reviewed AST 254(H) 10 - 45 Units/L [facility] Comment:Reviewed Blood 05/12/2021 4:30 AM CDT 05/12/2021 4:40 AM CDT us Sheridan Haney MD LAB BLOOD ORDERABLES Final Resul t [facility] [place] [address] * (ABNORMAL) CBC without differential (05/12/2021 4:30 AM CDT) Pathologist [facility] WBC 9.0 3.8 - 9.9 K/cumm [facility] Hgb 10.4(L) 11.9 - 15.5 g/dL [facility] Hct 32.6(L) 35.6 - 45.5 % [facility] Plt 152 150 - 400 K/cumm [facility] MPV 11.3 9.1 - 12.3 fL [facility] RBC 3.61(L) 3.90 - 5.20 M/cumm [facility] MCV 90.3 81.3 - 96.4 fL [facility] MCH 28.8 27.1 - 33.3 pg [facility] MCHC 31.9(L) 32.3 - 35.7 g/dL [facility] RDW CV 14.4 11.1 - 14.9 % [facility] RDW SD 47.3 35.7 - 48.1 fL [facility] NRBC abs 0.00 0.00 - 0.01 K/cumm [facility] Blood 05/12/2021 4:30 AM CDT 05/12/2021 4:40 AM CDT Sheridan Haney MD LAB BLOOD ORDERABLES Final Resul t Performing Organization Address [facility] de Phone Number [facility] [place] [address] * POCT glucose (05/12/2021 1:41 AM CDT) Glucose, POC 107 70 - 199 mg/dL [facility] Blood 05/12/2021 1:41 AM CDT 05/12/2021 1:41 AM CDT Sheridan Haney MD LAB POCT ORDERABLES - DEVICE Fin al Result Performing Organization Address [facility] [place] [address] * POCT glucose (05/11/2021 10:21 PM CDT) Glucose, POC 124 70 - 199 mg/dL [facility] Blood 05/11/2021 10:2 1 PM CDT 05/11/2021 10:21 PM CDT Sheridan Haney MD LAB POCT ORDERABLES - DEVICE Fin al Result Performing Organization Address [facility] de Phone Number [facility] [place] [address] * aPTT (05/11/2021 8:54 PM CDT) aPTT 33 27 - 37 sec [facility] Comment: Interpretive Data Therapeutic heparin range: 60.0 - 94.0 seconds. Based on correlation with therapeutic heparin activity range of 0.3-0.7 Units/mL. Current interpretive data was last revised on 2020. Blood 05/11/2021 8:54 PM CDT 05/11/2021 9:17 PM CDT Narrative [facility] - 05/11/2021 9:26 PM CDT Draw [...] ORDERABLES Final Resul t Performing Organization Address [facility] de Phone Number [facility] [place] [address] * POCT glucose (05/11/2021 5:35 PM CDT) Glucose, POC 151 70 - 199 mg/dL [facility] Blood 05/11/2021 5:35 PM CDT 05/11/2021 5:35 PM CDT Result [facility] Sheridan Haney MD LAB POCT ORDERABLES - DEVICE Fin al Result Performing Organization Address [facility] de Phone Number [facility] [place] [address] * POCT glucose (05/11/2021 10:38 AM CDT) Glucose, POC 152 70 - 199 mg/dL [facility] Blood 05/11/2021 10:3 8 AM CDT 05/11/2021 10:38 AM CDT Sheridan Haney MD LAB POCT ORDERABLES - DEVICE Fin al Result Performing Organization Address [facility] de Phone Number [facility] [place] [address] * Surgical pathology (05/11/2021 10:09 AM CDT) Tissue (Gallbladder) 05/11/2021 10:09 AM CDT Narrative PATHOLOGY [facility] - 05/14/2021 8:26 PM CDT EPIC results best viewed via link to PDF [facility] [place] [address] Note to Patients: This report may contain [...] Gender: ??F : ??1940 (Age: 80) Address: ??[address] [place] [id number] Hospital #: ??[id number] Taken:05/11/2021 Received:05/11/2021 Reported: 05/14/2021 Patient Type: [facility] Inpatient ?? Service: Surgery Location: [place] [address] Physician(s): ??Stephanie Alberto M.D. Dr. Haris Lauren [...] Surgical Pathology and Flow Cytometry Departments at [facility] as part of an ongoing software quality manager program and in compliance with federally [...] Surgical Pathology and Flow Cytometry Departments of [facility]. ??It has not been cleared or approved by the U. S. Food and Drug Administration. IMAGES AND SCANNED DOCUMENTS, IF INCLUDED, ONLY VIEWABLE IN PDF VERSION OF REPORT Stephanie Castelan MD LAB PATHOLOGY ORDERABLES F inal Result PATHOLOGY [facility] 3rd Floor [place], [place] [phone] * (ABNORMAL) Aerobic and anaerobic culture and gram stain Aspirate Gallbladder (05/11/2021 8:54 AM CDT) Direct Specimen Exam Stain: Abundant polymorphonuclear leukocytes seen. Abundant Gram Positive Cocci in pairs and chains [facility] Report Final Report: Abundant Streptococcus anginosus (.) [facility] Organism STREPTOCOCCUS ANGINOSUS [facility] Aspirate (Gallbladder) 05/11/2021 8:54 AM CDT 05/11/2021 12:04 PM CDT Narrative [facility] - 05/14/2021 2:34 PM CDT GALLBLADDER ASPIRATE Testing performed by [facility] Microbiology Laboratory ([phone]) Specimens submitted from normally sterile body sites [...] LAB MICROBIOLOGY - GENERAL ORDERABLES Final Result [facility] [place] [address] * POCT glucose (05/11/2021 8:53 AM CDT) Glucose, POC 122 70 - 199 mg/dL [facility] Blood 05/11/2021 8:53 AM CDT 05/11/2021 8:53 AM CDT Sheridan Haney MD LAB POCT ORDERABLES - DEVICE Fin al Result Performing Organization Address [facility] de Phone Number [facility] [place] [address] * POCT glucose (05/11/2021 6:16 AM CDT) Pathologist [facility] Glucose, POC 150 70 - 199 mg/dL [facility] Blood 05/11/2021 6:16 AM CDT 05/11/2021 6:16 AM CDT Sheridan Haney MD LAB POCT ORDERABLES - DEVICE Fin al Result Performing Organization Address [facility] de Phone Number [facility] [place] [address] * (ABNORMAL) eGFR (05/11/2021 3:21 AM CDT) Pathologist [facility] eGFR 62(L) 90 - 130 mL/min/1. 73 m2 [facility] Comment: Interpretive Data Reference Interval Normal [...] ORDERABLES Miranda l Result Performing Organization Address [facility] Co de Phone Number [facility] [place] [employer] [place] [address] * aPTT (05/11/2021 3:21 AM CDT) aPTT 36 27 - 37 sec [facility] Comment: Interpretive Data Therapeutic heparin range: 60.0 - 94.0 seconds. Based on correlation with therapeutic heparin activity range of 0.3-0.7 Units/mL. Current interpretive data was last revised on 2020. Blood 05/11/2021 3:21 AM CDT 05/11/2021 5:27 AM CDT Narrative [facility] - 05/11/2021 5:35 AM CDT Draw STAT [...] ORDERABLES Final Resul t Performing Organization Address [facility]/ZIP Co de Phone Number [facility] [place] [address] * Phosphorus (05/11/2021 3:21 AM CDT) Pathologist [facility] Phosphorus, pl 2.3 2.3 - 4.5 mg/dL [facility] Blood 05/11/2021 3:21 AM CDT 05/11/2021 5:19 AM CDT Sheridan Haney MD LAB BLOOD ORDERABLES Final Resul t Performing Organization Address City/[facility] Co de Phone Number [facility] [place] [address] * Magnesium (05/11/2021 3:21 AM CDT) [facility] Magnesium 1.7 1.4 - 2.5 mg/dL [facility] Blood 05/11/2021 3:21 AM CDT 05/11/2021 5:19 AM CDT Sheridan Haney MD LAB BLOOD ORDERABLES Final Resul t Performing Organization Address City/[facility] de Phone Number [facility] [place] [address] * (ABNORMAL) Comprehensive metabolic panel (05/11/2021 3:21 AM CDT) [facility] Sodium 137 135 - 145 mmol/L [facility] Potassium, pl 4.2 3.3 - 4.9 mmol/L [facility] Chloride 108 97 - 110 mmol/L [facility] CO2 21(L) 22 - 32 mmol/L [facility] Anion gap 8 2 - 15 mmol/L [facility] BUN 13 8 - 25 mg/dL [facility] Creatinine 0.92 0.60 - 1.10 mg/dL [facility] Glucose 160 70 - 199 mg/dL [facility] Comment: Interpretive Data Fasting glucose [...] 2017. Calcium 8.4(L) 8.5 - 10.3 mg/dL [facility] Bilirubin, total 0.8 0.1 - 1.2 mg/dL [facility] Protein, pl 6.7 6.5 - 8.5 g/dL [facility] Albumin 3.7 3.5 - 5.0 g/dL [facility] Alk phos 41 40 - 130 Units/L [facility] ALT 33 7 - 45 Units/L [facility] AST 59(H) 10 - 45 Units/L [facility] Blood 05/11/2021 3:21 AM CDT 05/11/2021 5:19 AM CDT us Sheridan Haney MD LAB BLOOD ORDERABLES Final Resul t [facility] [place] [address] * (ABNORMAL) CBC without differential (05/11/2021 3:21 AM CDT) Pathologist [facility] WBC 11.7(H) 3.8 - 9.9 K/cumm [facility] Hgb 12.2 11.9 - 15.5 g/dL [facility] Hct 38.7 35.6 - 45.5 % [facility] Plt 182 150 - 400 K/cumm [facility] MPV 11.7 9.1 - 12.3 fL [facility] RBC 4.28 3.90 - 5.20 M/cumm [facility] MCV 90.4 81.3 - 96.4 fL [facility] MCH 28.5 27.1 - 33.3 pg [facility] MCHC 31.5(L) 32.3 - 35.7 g/dL [facility] RDW CV 14.1 11.1 - 14.9 % [facility] RDW SD 46.8 35.7 - 48.1 fL [facility] NRBC abs 0.00 0.00 - 0.01 K/cumm [facility] Blood 05/11/2021 3:21 AM CDT 05/11/2021 5:19 AM CDT Sheridan Haney MD LAB BLOOD ORDERABLES Final Resul t Performing Organization Address City/[facility] Co de Phone Number [facility] [place] [address] * POCT glucose (05/11/2021 3:10 AM CDT) Glucose, POC 146 70 - 199 mg/dL [facility] Blood 05/11/2021 3:10 AM CDT 05/11/2021 3:10 AM CDT Sheridan Haney MD LAB POCT ORDERABLES - DEVICE Fin al Result Performing Organization Address [facility] Co de Phone Number [facility] [place] [address] * POCT glucose (05/10/2021 11:15 PM CDT) Glucose, POC 168 70 - 199 mg/dL [facility] Blood 05/10/2021 11:1 5 PM CDT 05/10/2021 11:15 PM CDT Sheridan Haney MD LAB POCT ORDERABLES - DEVICE Fin al Result Performing Organization Address [facility] Co de Phone Number [facility] [place] [address] * (ABNORMAL) POCT glucose (05/10/2021 8:25 PM CDT) Glucose, POC 201(H) 70 - 199 mg/dL [facility] Blood 05/10/2021 8:25 PM CDT 05/10/2021 8:25 PM CDT us Sheridan Haney MD LAB POCT ORDERABLES - DEVICE Fin al Result Performing Organization Address City/[facility]/ZIP Co de Phone Number [facility] [place] [address] * (ABNORMAL) POCT glucose (05/10/2021 4:37 PM CDT) Glucose, POC 221(H) 70 - 199 mg/dL [facility] Blood 05/10/2021 4:37 PM CDT 05/10/2021 4:37 PM CDT Sheridan Haney MD LAB POCT ORDERABLES - DEVICE Fin al Result Performing Organization Address [facility]/ZIP Co de Phone Number [facility] [place] [address] * Critical Result Callback Hematology (05/10/2021 2:17 PM CDT) Date Notified [id number] [facility] Time Notified 1718 [facility] TestName aPTT [facility] Called/Read Back Lele STINSON [facility] Credentials RN [facility] Called By omar [facility] Blood 05/10/2021 2:17 PM CDT 05/10/2021 4:49 PM CDT us Shira Devine NP LAB BLOOD ORDERABLES Final Result [facility] [place] [address] * (ABNORMAL) aPTT (05/10/2021 2:17 PM CDT) [facility] aPTT >150(C) 27 - 37 sec [facility] Comment: No clot detected in sample Repeated and verified Interpretive Data Therapeutic heparin range:60.0 - 94.0 sec based on correlation with therapeutic heparin activity range of 0.3 -0.7 Units/mL. Current interpretive data was last revised on 2011. Blood 05/10/2021 2:17 PM CDT 05/10/2021 4:45 PM CDT Narrative [facility] - 05/10/2021 5:17 PM CDT Draw [...] ORDERABLES Final Resul t Performing Organization Address City/[facility]/ZIP Co de Phone Number [facility] [place] [address] * (ABNORMAL) POCT glucose (05/10/2021 12:25 PM CDT) [facility] Glucose, POC 209(H) 70 - 199 mg/dL [facility] Blood 05/10/2021 12:2 5 PM CDT 05/10/2021 12:25 PM CDT Sheridan Haney MD LAB POCT ORDERABLES - DEVICE Fin al Result Performing Organization Address City/[facility]/ZIP Co de Phone Number [facility] [place] [address] * Type and screen (05/10/2021 12:23 PM CDT) [facility] Ramón, indirect Negative [facility] ABO Rh O Negative [facility] Blood 05/10/2021 12:2 3 PM CDT 05/10/2021 2:28 PM CDT Narrative [facility] - 05/10/2021 3:28 PM CDT Has the patient had Daratumumab or Isatuximab in the past 6 months?->Unknown Shira Devine NP LAB BLOOD BANK TEST ORDERA BLES Final Result Performing Organization Address City/[facility]/ZIP Co de Phone Number [facility] [place] [address] * POCT glucose (05/10/2021 8:17 AM CDT) [facility] Glucose, POC 137 70 - 199 mg/dL [facility] Blood 05/10/2021 8:17 AM CDT 05/10/2021 8:17 AM CDT Sheridan Haeny MD LAB POCT ORDERABLES - DEVICE Fin al Result Performing Organization Address City/[facility] Co de Phone Number [facility] [place] [address] * (ABNORMAL) CBC without differential (05/10/2021 7:13 AM CDT) [facility] WBC 9.0 3.8 - 9.9 K/cumm [facility] Hgb 11.6(L) 11.9 - 15.5 g/dL [facility] Hct 36.0 35.6 - 45.5 % [facility] Plt 173 150 - 400 K/cumm [facility] MPV 12.0 9.1 - 12.3 fL [facility] RBC 4.02 3.90 - 5.20 M/cumm [facility] MCV 89.6 81.3 - 96.4 fL [facility] MCH 28.9 27.1 - 33.3 pg [facility] MCHC 32.2(L) 32.3 - 35.7 g/dL [facility] RDW CV 14.2 11.1 - 14.9 % [facility] RDW SD 46.7 35.7 - 48.1 fL [facility] NRBC abs 0.00 0.00 - 0.01 K/cumm [facility] Blood 05/10/2021 7:13 AM CDT 05/10/2021 9:53 AM CDT Narrative [facility] - 05/10/2021 10:00 AM CDT Baseline prior to heparin initiation Shira Devine NP LAB BLOOD ORDERABLES Final Result Performing Organization Address [facility] Co de Phone Number [facility] [place] [address] * POCT glucose (05/10/2021 5:28 AM CDT) Glucose, POC 158 70 - 199 mg/dL [facility] Blood 05/10/2021 5:28 AM CDT 05/10/2021 5:28 AM CDT Sheridan Haney MD LAB POCT ORDERABLES - DEVICE Fin al Result Performing Organization Address [facility] de Phone Number [facility] [place] [address] * Lipid panel (05/10/2021 4:44 AM CDT) Cholesterol 105 30 - 199 mg/dL [facility] Comment: Interpretive Data Ages < [...] revised on 2017. Triglycerides 65 <=149 mg/dL [facility] Comment: Interpretive Data Ages < [...] revised on 2017. HDL 46 >=40 mg/dL [facility] Comment: Interpretive Data Ages < [...] on 2017. LDL, calculated 46 <=129 mg/dL [facility] Comment: Interpretive Data Ages < [...] on 2017. Non-HDL Cholesterol 59 mg/dL [facility] Comment: Interpretive Data Ages < [...] last revised on 2017. Chol/HDL ratio 2 [facility] Blood 05/10/2021 4:44 AM CDT 05/10/2021 5:33 AM CDT Narrative [facility] - 05/10/2021 8:15 AM CDT reflex us Sheridan [place] MD LAB BLOOD ORDERABLES Final Resul t [facility] [place] [address] * (ABNORMAL) Hemoglobin A1c (05/10/2021 4:44 AM CDT) Hgb A1C 5.9(H) 4.0 - 5.6 % [facility] Estimated Average Glucose 123 mg/dL [facility] Comment: The ADA recommends reporting an estimated Average Glucose (eAG) with all Hemoglobin A1c results using the equation derived from a study of 507 normal and diabetic adults. ??Minority populations were underrepresented and children were not included. ?? (Diabetes Care 2020; 43(S1): S66-S76). ??The eAG is not equivalent to a fasting glucose. Blood 05/10/2021 4:44 AM CDT 05/10/2021 5:37 AM CDT Narrative [facility] - 05/10/2021 8:01 AM CDT reflex us Sheridan [place] MD LAB BLOOD ORDERABLES Final Resul t [facility] [place] [address] * (ABNORMAL) eGFR (05/10/2021 4:44 AM CDT) eGFR 64(L) 90 - 130 mL/min/1. 73 m2 [facility] Comment: Interpretive Data Reference Interval Normal [...] ORDERABLES Miranda l Result Performing Organization Address City/[facility]/ZIP Co de Phone Number [facility] [place] [address] * Phosphorus (05/10/2021 4:44 AM CDT) Phosphorus, pl 3.3 2.3 - 4.5 mg/dL [facility] Blood 05/10/2021 4:44 AM CDT 05/10/2021 5:33 AM CDT us Sheridan [place] MD LAB BLOOD ORDERABLES Final Resul t Performing Organization Address [facility] Co de Phone Number [facility] [place] [address] * Magnesium (05/10/2021 4:44 AM CDT) Magnesium 1.7 1.4 - 2.5 mg/dL [facility] Blood 05/10/2021 4:44 AM CDT 05/10/2021 5:33 AM CDT Sheridan [place] MD LAB BLOOD ORDERABLES Final Resul t Performing Organization Address [facility] Co de Phone Number [facility] [place] [address] * Comprehensive metabolic panel (05/10/2021 4:44 AM CDT) Sodium 140 135 - 145 mmol/L [facility] Potassium, pl 4.1 3.3 - 4.9 mmol/L [facility] Comment:Hemolyzed; Potassium value may be falsely elevated by as much as 0.3-0.5 mmol/L. Suggest redraw and reanalysis. Chloride 109 97 - 110 mmol/L [facility] CO2 22 22 - 32 mmol/L [facility] Anion gap 9 2 - 15 mmol/L [facility] BUN 20 8 - 25 mg/dL [facility] Creatinine 0.90 0.60 - 1.10 mg/dL [facility] Glucose 127 70 - 199 mg/dL [facility] Comment: Interpretive Data Fasting glucose [...] 2017. Calcium 8.7 8.5 - 10.3 mg/dL [facility] Bilirubin, total 0.6 0.1 - 1.2 mg/dL [facility] Protein, pl 6.9 6.5 - 8.5 g/dL [facility] Albumin 3.8 3.5 - 5.0 g/dL [facility] Alk phos 41 40 - 130 Units/L [facility] ALT 19 7 - 45 Units/L [facility] AST 36 10 - 45 Units/L [facility] Comment:Hemolyzed; result ma y be falsely elevated Blood 05/10/2021 4:44 AM CDT 05/10/2021 5:33 AM CDT us Sheridan [place] MD LAB BLOOD ORDERABLES Final Resul t [facility] [place] [address] * (ABNORMAL) CBC without differential (05/10/2021 4:44 AM CDT) WBC 9.7 3.8 - 9.9 K/cumm [facility] Hgb 11.9 11.9 - 15.5 g/dL [facility] Hct 37.3 35.6 - 45.5 % [facility] Plt 182 150 - 400 K/cumm [facility] MPV 12.1 9.1 - 12.3 fL [facility] RBC 4.12 3.90 - 5.20 M/cumm [facility] MCV 90.5 81.3 - 96.4 fL [facility] MCH 28.9 27.1 - 33.3 pg [facility] MCHC 31.9(L) 32.3 - 35.7 g/dL [facility] RDW CV 14.2 11.1 - 14.9 % [facility] RDW SD 46.5 35.7 - 48.1 fL [facility] NRBC abs 0.00 0.00 - 0.01 K/cumm [facility] Blood 05/10/2021 4:44 AM CDT 05/10/2021 5:33 AM CDT us Sheridan [place] MD LAB BLOOD ORDERABLES Final Resul t Performing Organization Address City/[facility]/ZIP Co de Phone Number [facility] [place] [address] * POCT glucose (05/10/2021 12:01 AM AUTO TIRE RECAPPER) Pathologist [facility] Glucose, POC 122 70 - 199 mg/dL [facility] Blood 05/10/2021 12:0 1 AM AUTO TIRE RECAPPER 05/10/2021 12:01 AM AUTO TIRE RECAPPER us Notinfile Unknown LAB POCT ORDERABLES - DEVICE F inal Result Performing Organization Address City/[facility]/ZIP Co de Phone Number [facility] [place] [address] * Troponin I high-sensitivity 4-hour (05/09/2021 9:22 PM AUTO TIRE RECAPPER) Trop I hs 4 <=17 ng/L [facility] Comment: Interpretive Data For further hscTnI resources including the diagnostic algorithm and an aid in interpretation, copy and paste this link: https://bjhlab.testcatalog.org/show/hsTrop-[email or web address] Current Interpretive Data last revised 2019. Trop I hs delta See Comment ng/L [facility] Comment:Inappropriate collec tion time to report a delta. Trop I hs pct delta See Comment % [facility] Comment:Inappropriate collec tion time to report a delta. Trop I hs interp See Comment [facility] Comment:Inappropriate collec tion time to report a delta. Blood 05/09/2021 9:22 PM AUTO TIRE RECAPPER 05/09/2021 9:37 PM AUTO TIRE RECAPPER us Eduardo Brush MD LAB BLOOD ORDERABLES Final R esult [facility] [place] [address] * US RUQ (05/09/2021 8:35 PM AUTO TIRE RECAPPER) Anatomical Region Laterality Modality Abdomen N/A Ultrasound 05/09/2021 9:58 PM AUTO TIRE RECAPPER Impressions 05/10/2021 11:50 AM CDT Equivocal findings [...] by premedication with opioid analgesia. Dictated by: kAira Granda The radiology attending physician has personally reviewed this study, and had reviewed and/or edited this written report and agrees with it. Electronically signed by: Ashley Bauman M.D. us Michell Luo MD IMG US PROCEDURES Miranda l Result * XR Chest Pa Lateral 2 Views (05/09/2021 7:21 PM AUTO TIRE RECAPPER) Anatomical Region Laterality Modality Body, Chest N/A Computed Radiogr aphy 05/09/2021 7:25 PM AUTO TIRE RECAPPER Impressions 05/09/2021 7:30 PM AUTO TIRE RECAPPER Comparison is made to prior chest radiograph [...] Charly Quintanilla M.D. Narrative 05/09/2021 7:30 PM AUTO TIRE RECAPPER EXAMINATION: XR CHEST PA LATERAL 2 VIEWS [...] and COVID-19 PCR Nasopharyngeal (05/09/2021 6:20 PM AUTO TIRE RECAPPER) COVID-19 RNA Negative Negative [facility] Influenza A RNA Negative Negative [facility] Influenza B RNA Negative Negative [facility] RSV RNA Negative Negative [facility] Comment: Interpretive data: Testing performed by [facility] ([phone]). This test is performed using the Premonix Xpert Xpress CoV-2/Flu/RSV plus assay. This is a multiplex, real-time reverse transcriptase PCR assay intended for the qualitative detection of nucleic acid from SARS-CoV-2, influenza A, influenza B, and respiratory syncytial virus. This assay has been reviewed by the FDA for Emergency Use Authorization (EUA). The performance characteristics have been verified by the [facility]. Results must be considered in the clinical context, and a negative result does not rule out infection. Interpretive Data last revised 2021. First COVID-19 test? No [facility] Employeed in healthcare? No [facility] status? No [facility] Group care resident? No [facility] Hospitalized? Yes [facility] Is patient in ICU? No [facility] Symptomatic as defined by CDC? No [facility] Nasopharyngeal 05/09/2021 6: 20 PM AUTO TIRE RECAPPER 05/09/2021 6:53 PM AUTO TIRE RECAPPER Narrative [facility] - 05/09/2021 7:39 PM AUTO TIRE RECAPPER Reason for testing?->Bed placement or semi-private room Known exposure to confirmed or suspected COVID-19 case?->No Eduardo Brush MD LAB MICROBIOLOGY - GENERAL O RDERABLES Final Result [facility] [place] [address] * Troponin I high-sensitivity 2-hour (05/09/2021 6:20 PM AUTO TIRE RECAPPER) Trop I hs 4 <=17 ng/L [facility] Comment: Interpretive Data For further hscTnI [...] report a delta. Blood 05/09/2021 6:20 PM AUTO TIRE RECAPPER 05/09/2021 6:31 PM AUTO TIRE RECAPPER us Eduardo Brush MD LAB BLOOD ORDERABLES Final R esult [facility] [place] [address] * CT Abdomen Pelvis W Contrast (05/09/2021 5:10 PM AUTO TIRE RECAPPER) Anatomical Region Laterality Modality Body N/A Computed Tomogra phy 05/09/2021 5:33 PM AUTO TIRE RECAPPER Impressions 05/09/2021 5:51 PM AUTO TIRE RECAPPER 1. Borderline gallbladder distention and cholelithiasis without definite evidence of acute cholecystitis. Recommend clinical correlation for symptoms of biliary colic. 2. Pancolonic diverticulosis without evidence of diverticulitis. Dictated by: Akira Granda The radiology attending physician has personally reviewed this study, and had reviewed and/or edited this written report and agrees with it. Electronically signed by: Charly Quintanilla M.D. Narrative 05/09/2021 5:51 PM AUTO TIRE RECAPPER EXAMINATION: ??Computed tomography of the abdomen and [...] lt * POCT glucose (05/09/2021 4:51 PM AUTO TIRE RECAPPER) Glucose, POC 122 70 - 199 mg/dL [facility] Glucose comment 1 Glu2: EDD/ Notified [facility] Blood 05/09/2021 4:51 PM AUTO TIRE RECAPPER 05/09/2021 4:51 PM AUTO TIRE RECAPPER us Notinfile Unknown LAB POCT ORDERABLES - DEVICE F inal Result [facility] [place] [address] * ECG 12-LEAD (05/09/2021 3:31 PM AUTO TIRE RECAPPER) Narrative [facility] - 05/09/2021 3:31 PM AUTO TIRE RECAPPER Anthony Beth MD ? 05/09/2021 ??3:35 PM [...] up: further workup in the ED Anthony Beht MD 05/09/21 1535 us Eduardo Brush MD ECG ORDERABLES Final Result Performing Organization Address [facility] Co de Phone Number [facility] * (ABNORMAL) Urinalysis, microscopic only (05/09/2021 3:08 PM AUTO TIRE RECAPPER) WBC, ur 0-5 0 - 5 /HPF [facility] RBC, ur 0-2 0 - 2 /HPF [facility] Epithelial cells, squamous, ur 1-5 0 - 5 /HPF [facility] Mucous, ur Present(A) [facility] Culture Reflex Comment Reflex conditions for urine culture (WBC >10) not met. [facility] Urine 05/09/2021 3:08 PM AUTO TIRE RECAPPER 05/09/2021 3:15 PM AUTO TIRE RECAPPER Eduardo Brush MD LAB URINE ORDERABLES Final R esult Performing Organization Address City/[facility] Co de Phone Number [facility] [place] [address] * (ABNORMAL) Urinalysis reflex to microscopic and culture Urine (05/09/2021 3:08 PM AUTO TIRE RECAPPER) Color, ur Straw Yellow [facility] Clarity, ur Clear Clear [facility] Specific gravity, ur 1.024 1.003 - 1.030 [facility] pH, urine 6.0 [facility] Protein, ur ql Trace Negative [facility] Glucose, ur ql Negative Negative [facility] Ketones, ur Negative Negative [facility] Bilirubin, ur Negative Negative [facility] Blood, ur Trace(A) Negative [facility] Urobilinogen, ur <2.0 <2.0 mg/dL [facility] Nitrite, ur Negative Negative [facility] Leukocyte esterase, ur Negative Negative [facility] UA reflex comment Reflex to microscopic UA will be performed. [facility] Urine 05/09/2021 3:08 PM AUTO TIRE RECAPPER 05/09/2021 3:15 PM AUTO TIRE RECAPPER Narrative [facility] - 05/09/2021 3:29 PM AUTO TIRE RECAPPER ?? Urine pH is affected by diet, medications, systemic acid-base disturbances, and renal tubular function. ??pH may affect urinary stone formation. ??For example, urine pH below 6.0 may help reduce the tendency for calcium phosphate stones and pH greater than 6.0 may reduce the tendency for uric acid stone formation. Source: [employer]. Last revised 03-10-2017 Eduardo Brush MD LAB MICROBIOLOGY - GENERAL O RDERABLES Final Result [facility] [place] [address] * (ABNORMAL) eGFR (05/09/2021 3:07 PM AUTO TIRE RECAPPER) eGFR 60(L) 90 - 130 mL/min/1. 73 m2 [facility] Comment: Interpretive Data Reference Interval Normal [...] last reviewed 2020. Blood 05/09/2021 3:07 PM AUTO TIRE RECAPPER 05/09/2021 3:22 PM AUTO TIRE RECAPPER us Eduardo Brush MD LAB BLOOD ORDERABLES Final R esult Performing Organization Address City/[facility]/ZIP Co de Phone Number [facility] [place] [address] * Lipase (05/09/2021 3:07 PM AUTO TIRE RECAPPER) Lipase 23 10 - 99 Units/L [facility] Blood 05/09/2021 3:07 PM AUTO TIRE RECAPPER 05/09/2021 3:22 PM AUTO TIRE RECAPPER us Notinfile Unknown LAB BLOOD ORDERABLES Final Res ult Performing Organization Address City/[facility]/ZIP Co de Phone Number [facility] [place] [address] * Differential, auto (05/09/2021 3:07 PM AUTO TIRE RECAPPER) Neutrophil abs 5.9 1.7 - 6.5 K/cumm [facility] Imm gran abs 0.0 0.0 - 0.1 K/cumm [facility] Lymphocyte abs 1.4 0.8 - 3.3 K/cumm [facility] Monocyte abs 0.5 0.2 - 0.8 K/cumm [facility] Eosinophil abs 0.2 0.0 - 0.5 K/cumm [facility] Basophil abs 0.1 0.0 - 0.1 K/cumm [facility] Neutrophil pct 73.2 % [facility] Comment: Interpretive Data Percent cell count reference ranges are not reported, since discordance with absolute values may lead to misinterpretation of CBC data. Current Interpretive Data was last revised on 2017. Imm gran pct 0.1 % [facility] Comment: Interpretive Data Percent cell count reference ranges are not reported, since discordance with absolute values may lead to misinterpretation of CBC data. Current Interpretive Data was last revised on 2017. Lymphocyte pct 17.3 % [facility] Comment: Interpretive Data Percent cell count reference ranges are not reported, since discordance with absolute values may lead to misinterpretation of CBC data. Current Interpretive Data was last revised on 2017. Monocyte pct 6.6 % [facility] Comment: Interpretive Data Percent cell count reference ranges are not reported, since discordance with absolute values may lead to misinterpretation of CBC data. Current Interpretive Data was last revised on 2017. Eosinophil pct 1.9 % [facility] Comment: Interpretive Data Percent cell count reference ranges are not reported, since discordance with absolute values may lead to misinterpretation of CBC data. Current Interpretive Data was last revised on 2017. Basophil pct 0.9 % [facility] Comment: Interpretive Data Percent cell count reference ranges are not reported, since discordance with absolute values may lead to misinterpretation of CBC data. Current Interpretive Data was last revised on 2017. Blood 05/09/2021 3:07 PM AUTO TIRE RECAPPER 05/09/2021 3:22 PM AUTO TIRE RECAPPER us Eduardo Brush MD LAB BLOOD ORDERABLES Final R esult [facility] [place] [address] * Troponin I high-sensitivity series (baseline, 2hr, 4hr, 6hr) (05/09/2021 3:07 PM AUTO TIRE RECAPPER) Trop I hs 4 <=17 ng/L [facility] Comment: Interpretive Data For further hscTnI resources including the diagnostic algorithm and an aid in interpretation, copy and paste this link: https://bjhlab.testcatalog.org/show/hsTrop-[email or web address] Current Interpretive Data last revised 2019. Blood 05/09/2021 3:07 PM AUTO TIRE RECAPPER 05/09/2021 3:22 PM AUTO TIRE RECAPPER Eduardo Brush MD LAB BLOOD ORDERABLES Final R esult [facility] [place] [address] * Comprehensive metabolic panel (05/09/2021 3:07 PM AUTO TIRE RECAPPER) Sodium 138 135 - 145 mmol/L [facility] Potassium, pl 4.0 3.3 - 4.9 mmol/L [facility] Chloride 106 97 - 110 mmol/L [facility] CO2 22 22 - 32 mmol/L [facility] Anion gap 10 2 - 15 mmol/L [facility] BUN 24 8 - 25 mg/dL [facility] Creatinine 0.95 0.60 - 1.10 mg/dL [facility] Glucose 166 70 - 199 mg/dL [facility] Comment: Interpretive Data Fasting glucose [...] 2017. Calcium 9.2 8.5 - 10.3 mg/dL [facility] Bilirubin, total 0.4 0.1 - 1.2 mg/dL [facility] Protein, pl 7.5 6.5 - 8.5 g/dL [facility] Albumin 4.4 3.5 - 5.0 g/dL [facility] Alk phos 59 40 - 130 Units/L [facility] ALT 19 7 - 45 Units/L [facility] AST 27 10 - 45 Units/L [facility] Blood 05/09/2021 3:07 PM AUTO TIRE RECAPPER 05/09/2021 3:22 PM AUTO TIRE RECAPPER Eduardo Brush MD LAB BLOOD ORDERABLES Final R esult [facility] [place] [address] * (ABNORMAL) CBC with auto differential (05/09/2021 3:07 PM AUTO TIRE RECAPPER) [facility] WBC 8.0 3.8 - 9.9 K/cumm [facility] Hgb 12.9 11.9 - 15.5 g/dL [facility] Hct 40.1 35.6 - 45.5 % [facility] Plt 198 150 - 400 K/cumm [facility] MPV 11.6 9.1 - 12.3 fL [facility] RBC 4.46 3.90 - 5.20 M/cumm [facility] MCV 89.9 81.3 - 96.4 fL [facility] MCH 28.9 27.1 - 33.3 pg [facility] MCHC 32.2(L) 32.3 - 35.7 g/dL [facility] RDW CV 14.2 11.1 - 14.9 % [facility] RDW SD 46.7 35.7 - 48.1 fL [facility] NRBC abs 0.00 0.00 - 0.01 K/cumm [facility] Blood 05/09/2021 3:07 PM AUTO TIRE RECAPPER 05/09/2021 3:22 PM AUTO TIRE RECAPPER Eduardo Brush MD LAB BLOOD ORDERABLES Final R esult [facility] [place] [address] * POCT glucose (05/09/2021 1:21 PM AUTO TIRE RECAPPER) Glucose, POC 157 70 - 199 mg/dL [facility] Blood 05/09/2021 1:21 PM AUTO TIRE RECAPPER 05/09/2021 1:21 PM AUTO TIRE RECAPPER us Notinfile Unknown LAB POCT ORDERABLES - DEVICE F inal Result [facility] [place] [address] documented in this encounter Visit Diagnoses Diagnosis [...] Call MD for each episode of hypoglycemia. [employer]IVER STATES GLUTOSE-15 CONTAINS GLUCOSE 40% W/W (50% [...] 62.5 mcg (1 puff), inhalation, Daily (correspondence renew clerk), First dose (after last modification) on Tue05/12/21 at 0930, Rinse mouth with water after use. Do not swallow. Given 05/12/2021 10:19 AM CDT 62.5 mcg documented in this encounter Active and Recently Administered Medications Due to Daylight Saving Time, this section may contain times in both AUTO TIRE RECAPPER and CDT. Scheduled Medication Order 05/10/2021 05/11/2021 [...] 62.5 mcg (1 puff), inhalation, Daily (correspondence renew clerk), First dose on Tue05/10/21 at 0900 0842 [...] 62.5 mcg (1 puff), inhalation, Daily (correspondence renew clerk), First dose (after last modification) on Tue05/12/21 at 0930, Rinse mouth with water after use. Do not swallow. 1019 (Given - Provider: Ariadna Warren, INTERIOR DESIGN CONSULTANT) Continuous Medication Order 05/10/2021 05/11/2021 05/12/2021 dextrose [...] Perez Flannery RN)2224 (Rate/Dose Change - Provider: Adelina Crum RN) [...] Call MD for each episode of hypoglycemia. REGIONAL OWNER OPERATOR TRUCK DRIVER STATES GLUTOSE-15 CONTAINS GLUCOSE 40% W/W (50% [...] Indications: Pain 0524 (Given - Provider: Kiarra Beaz RN)2114 (Given - Provider: Mariah Hagan, EDD) 0546 (Given - Provider: Mariah Hagan, EDD)0555 (APR Hold - Provider: Automatic Transfer Provider - Reason: Patient not available)1329 ([facility] Unhold - Provider: Perez Flannery, EDD) 0848 [...] Stephanie Castelan MD - Comment: for suction meteorology professor) Linked Groups Order Group 1: dextrose (GLUTOSE) [...] Call MD for each episode of hypoglycemia. REGIONAL OWNER OPERATOR TRUCK DRIVER STATES GLUTOSE-15 CONTAINS GLUCOSE 40% W/W (50% [...] 05/09/2021 documented in this encounter Care Teams Commercial Maintenance Technician Relationship Specialty Start Date End Date Haris Lauren MD PCP - General Family Medicine 12/31/20 06/07/21 documented as of this encounter
--- OUTSIDE RECORDS SUMMARY | 2024-03-14 | XMS_ITS | Encounter Summary ---
Author Organization [facility] Address [address] [place] [address] Care Team Providers Care Concrete Mixer Operator Name Role Phone Cassius Chambers MD Primary Care Provider Encounter Details Date Type Department Care Team (Late st Contact Info) Description 05/08/2020 Orders Only [facility] [address] [facility] [address] [place] [facility] [place] [address] Cassius Chambers MD [address] [facility] [address] [place] [address] Type 2 diabetes mellitus without complication, without long-term current use of insulin ([facility]) (Primary Dx); Dyslipidemia; HTN (hypertension), benign; Arteriosclerotic vascular disease Social History Tobacco Use Types Packs/Day Years Used Date Smoking Tobacco: Never Smokeless Tobacco: Never Alcohol Use Standard Drinks/Week Comments No 0 (1 standard drink = 0.6 oz pur e alcohol) Comments No Sex and Gender Information Value Date Recorded Sex Assigned at Not on file Legal Sex Female 11:30 PM [employer] Gender Identity Female 06/15/2023 1:45 PM CDT Sexual Orientation Straight 06/15/2023 1: 45 PM CDT documented as of this encounter Plan of Treatment Scheduled Orders Name Type Priority Associated Diagnoses Orde r Schedule CBC with auto differential Lab Routine Type 2 diabetes mellitus without complication, without long-term current use of insulin ([facility]) Dyslipidemia HTN (hypertension), benign Arteriosclerotic vascular [...] atherosclerosis documented in this encounter Care Teams Concrete Mixer Operator Relationship Specialty Start Date End Date Cassius Chambers MD [address] [address] PCP - General 08/12/16 12/30/20 documented as of this encounter
--- OUTSIDE RECORDS SUMMARY | 2024-03-14 | XMS_ITS | Encounter Summary ---
Author Organization [facility] Address [address] [address] Care Team Providers Care Home Health Aide Caregiver Name Role Phone Haris Lauren MD Primary Care Provider [phone] Encounter Details Date Type Department Care Team (Late st Contact Info) Description 01/09/2021 Telephone [facility] Primary Care at [address] [address] Lisset Camarena MA Social History [...] on file Legal Sex Female 11:30 PM TOPSTITCHER ZIGZAG Gender Identity Female 06/15/2023 1:45 PM CDT Sexual Orientation Straight 06/15/2023 1: 45 PM CDT documented as of this encounter Miscellaneous Notes * Telephone Encounter - Lisset Camarena MA - 01/09/2021 9:58 AM TOPSTITCHER ZIGZAG PA completed and approved for [employer] TITCHER ZIGZAG documented in this encounter Plan of Treatment Not on file documented as of this encounter Visit Diagnoses Not on filedocumented in this encounter Care Teams Home Health Aide Caregiver Relationship Specialty Start Date End Date Haris Lauren MD PCP - General Family Medicine 12/31/20 06/07/21 documented as of this encounter
--- OUTSIDE RECORDS SUMMARY | 2024-03-14 | XMS_ITS | Encounter Summary ---
Author Organization [facility] Address [address] [place] [address] Care Team Providers Care Consumer Loan Officer Name Role Phone Cassius Chambers MD Primary Care Provider [phone] Reason for Referral * Diagnostic Imaging (Routine) - Closed Specialty Diagnoses / Procedures Referred By Contac t Referred To Contact Diagnoses Age related osteoporosis, unspecified pathological fracture presence Post-menopausal Abnormal bone density screening Procedures Dexa Axial Skeleton Bone Density 1 or 2 Site Cassius Chambers MD [address] [place] [address] Phone: tel: fax: [address] [address] Referral ID Status Reason Start Date Expiration Date Visits Re quested Visits Authorized [id number] Closed 06/03/2020 07/03/2021 1 1 Reason for Visit * Diagnostic Imaging (Routine) - Closed Specialty Diagnoses / Procedures Referred By Contac t Referred To Contact Diagnoses Age related osteoporosis, unspecified pathological fracture presence Post-menopausal Abnormal bone density screening Procedures Dexa Axial Skeleton Bone Density 1 or 2 Site Cassius Chambers MD [facility] [address] Phone: tel: fax: [facility] [address] [facility] [place] [address] Referral ID Status Reason Start Date Expiration Date Visits Re quested Visits Authorized [id number] Closed 06/03/2020 07/03/2021 1 1 Encounter Details Date Type Department Care Team (Latest Contact Info) Description 09/09/2020 9:44 AM CDT - 09/09/2020 11:59 PM CDT Hospital Encounter [facility] [address] [place] [address] Cassius Chambers MD [address] [facility] [address] [place], [place] [id number] Age related osteoporosis, unspecified pathological fracture presence; [...] on file Legal Sex Female 11:30 PM 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
--- OUTSIDE RECORDS SUMMARY | 2024-03-14 | XMS_ITS | Encounter Summary ---
Author Organization [facility] Address [address] [place] [address] Care Team Providers Care Asset Protection Manager Name Role Phone Cassius Chambers MD Primary Care Provider Reason for Visit * Reason Comments Back Pain Diabetes Encounter Details Date Type Department Care Team (Late st Contact Info) Description 04/22/2020 1:00 PM TUBULAR PRODUCTS FABRICATOR Office Visit [facility] [address] [facility] [address] [place] [address] Cassius Chambers MD [address] [facility] [address] [place] [address] Type 2 diabetes mellitus without complication, without long-term current use of insulin ([facility]) (Primary Dx); HTN (hypertension), benign; Dyslipidemia; Compression fracture of T12 vertebra, sequela Social History Tobacco Use Types Packs/Day Years Used Date Smoking Tobacco: Never Smokeless Tobacco: Never Alcohol Use Standard Drinks/Week Comments No 0 (1 standard drink = 0.6 oz pur e alcohol) Comments No Sex and Gender Information Value Date Recorded Sex Assigned at Not on file Legal Sex Female 11:30 PM TUBULAR PRODUCTS FABRICATOR Gender Identity Female 06/15/2023 1:45 PM CDT Sexual Orientation Straight 06/15/2023 1: 45 PM CDT documented as of this encounter Last Filed Vital Signs Vital Sign Reading Time Taken Comments Blood Pressure - - Pulse - - Temperature - - Respiratory Rate - - Oxygen Saturation - - Inhaled Oxygen Concentration - - Weight 62.1 kg (137 lb) 04/22/2020 1:29 PM TUBULAR PRODUCTS FABRICATOR Height 152.4 cm (5') 04/22/2020 1:29 PM TUBULAR PRODUCTS FABRICATOR Body Mass Index 26.76 04/22/2020 1:29 PM TUBULAR PRODUCTS FABRICATOR documented in this encounter Progress Notes * [...] until 03/19/2019 when she awakened in the locker room manager hours to go to the bathroom and got a bed and fell. She struck the back of her head. The following day she went to [facility]. A head CT showed no acute changes. [...] they change their minds regarding vertebroplasty Refill Stevens 5/325 number 60 There are no diagnoses linked to this encounter. Cassius Chambers MD LAR PRODUCTS FABRICATOR documented in this encounter Plan of Treatment Not on file documented as of this encounter Procedures Procedure Name Priority Date/Time Associated Diagnosis Comments POCT GLUCOSE 89536 Routine 04/22/2020 5: 04 PM TUBULAR PRODUCTS FABRICATOR Type 2 diabetes mellitus without complication, without long-term current use of insulin (CMS/HCC) HTN (hypertension), benign Dyslipidemia Compression fracture of T12 vertebra, sequela POCT HEMOGLOBIN A1C Routine 04/22/2020 5 :04 PM TUBULAR PRODUCTS FABRICATOR Type 2 diabetes mellitus without complication, without long-term current use of insulin (CMS/HCC) HTN (hypertension), benign Dyslipidemia Compression fracture of T12 vertebra, sequela POCT LIPID PANEL Routine 04/22/2020 5:04 PM TUBULAR PRODUCTS FABRICATOR Type 2 diabetes mellitus without complication, without long-term current use of insulin (CMS/HCC) HTN (hypertension), benign Dyslipidemia Compression fracture of T12 vertebra, sequela documented in this encounter Results * POCT lipid panel (04/22/2020 5:04 PM TUBULAR PRODUCTS FABRICATOR) HDL, POC 33 mg/dL Triglycerides, POC 168 mg/dL LDL Cholesterol POC 35 mg/dL Chol/HDL Ratio, POC 3.1 Non-HDL Cholesterol, POC 69 mg/dL Cholesterol Total, POC 102 mg/dL Capillary blood 04/22/2020 5 :04 PM TUBULAR PRODUCTS FABRICATOR us Cassius Chambers MD POINT OF CARE TEST ORDERABLES Final Result * POCT hemoglobin A1c (04/22/2020 5:04 PM TUBULAR PRODUCTS FABRICATOR) Hemoglobin A1C, POC 6.1 Blood specimen (specimen) 04/22/2020 5:04 PM TUBULAR PRODUCTS FABRICATOR us Cassius Chambers MD POINT OF CARE TEST ORDERABLES Final Result * POCT glucose (04/22/2020 5:04 PM TUBULAR PRODUCTS FABRICATOR) Glucose Blood, POC 147 mg/dL Blood specimen (specimen) 04/22/2020 5:04 PM TUBULAR PRODUCTS FABRICATOR us Cassius Chambers MD POINT OF CARE TEST ORDERABLES Final Result documented in this encounter Visit Diagnoses Diagnosis Type 2 diabetes mellitus without complication, without long-term current use of insulin ([facility]) ([facility])- Primary HTN (hypertension), benign Essential hypertension, benign Dyslipidemia Other and unspecified hyperlipidemia Compression fracture of T12 vertebra, sequela documented in this encounter Discontinued Medications Medication Sig Discontinue Reason Start Date End Da te aspirin 325 mg tabletIndications:cerebr al ischemia,Cerebral Ischemia Take 1 tablet (325 mg total) by mouth daily 02/12/2019 04/22/2020 documented as of this encounter Care Teams Asset Protection Manager Relationship Specialty Start Date End Date Cassius Chambers MD [address] [facility] [address] [place] [address] PCP - General 08/12/16 12/30/20 documented as of this encounter
--- OUTSIDE RECORDS SUMMARY | 2024-03-14 | XMS_ITS | Encounter Summary ---
Author Organization [facility] Healthcare Address [address] [place] [address] Care Team Providers Care Performing Arts Road Manager Name Role Phone Cassius Chambers MD Primary Care Provider [phone] Encounter Details Date Type Department Care Team (Latest Contact Info) Description 05/07/2020 1:14 PM DIRECTOR OF PRODUCT DESIGN - 05/07/2020 11:59 PM DIRECTOR OF PRODUCT DESIGN Hospital Encounter [facility]) [address] [place] [phone] Discharge Disposition: Discharge to home or self care Social History Tobacco Use Types Packs/Day Years Used Date Smoking Tobacco: Never Smokeless Tobacco: Never Alcohol Use Standard Drinks/Week Comments No 0 (1 standard drink = 0.6 oz pur e alcohol) Comments No Sex and Gender Information Value Date Recorded Sex Assigned at Not on file Legal Sex Female 11:30 PM DIRECTOR OF PRODUCT DESIGN Gender Identity Female 06/15/2023 1:45 PM CDT [...] MR OUTSIDE REFERENCE Routine 05/07/2020 1:14 PM DIRECTOR OF PRODUCT DESIGN Diagnosis unknown documented in this encounter Results * Neuro CT MR Outside Reference (05/07/2020 1:14 PM DIRECTOR OF PRODUCT DESIGN) Impressions RAD_[facility] - 05/07/2020 1:14 PM DIRECTOR OF PRODUCT DESIGN These images are for Reference purposes only and have not been reviewed by [facility] Radiology. ??There will be no report generated by a [facility] Radiologist. Narrative RAD_PACS[facility] - 05/07/2020 1:14 PM DIRECTOR OF PRODUCT DESIGN EXAMINATION: ??Images For Reference Purposes Only us Jeyson Puga MD PhD IMG CT PROCEDURES F inal Result [facility] documented in this encounter Visit Diagnoses Not on filedocumented in this encounter Care Teams Performing Arts Road Manager Relationship Specialty Start Date End Date Cassius Chambers MD [address] [address] PCP - General 08/12/16 12/30/20 documented as of this encounter
--- OUTSIDE RECORDS SUMMARY | 2024-03-14 | XMS_ITS | Encounter Summary ---
Author Organization [facility] Address [address] [address] Care Team Providers Care Chief Data Officer Name Role Phone Haris Lauren MD Primary Care Provider [phone] Encounter Details Date Type Department Care Team (Late st Contact Info) Description 03/25/2021 Telephone [facility] Primary Care at [address] [address] Haris Lauren MD [address] [place] [address] Social History Tobacco Use Types Packs/Day [...] file Legal Sex Female 11:30 PM CASING RUNNING MACHINE TENDER Gender Identity Female 06/15/2023 1:45 [...] w/ spouse & notified scripts sent to [facility]. NG RUNNING MACHINE TENDER * Addendum Note - Katelyn Akers MA - 03/26/2021 10:55 AM CSTAddended by: KATELYN AKERS on: 03/26/2021 10:55 AM Modules accepted: Orders NG RUNNING MACHINE TENDER * Telephone Encounter - Bradley Garcia - 03/25/2021 9:06 AM CST Patient Pedrito called and would like this patient's scripts all be sent to [facility]. He stated that we would have to call them. He was unsure what number to call. He gave me [phone] and [phone] He said they are getting low on pills. And they want all meds transferred to this pharmacy. Please advise NG RUNNING MACHINE TENDER documented in this encounter Plan of Treatment [...] documented as of this encounter Care Teams Chief Data Officer Relationship Specialty Start Date End Date Haris Lauren MD PCP - General Family Medicine 12/31/20 06/07/21 documented as of this encounter
--- OUTSIDE RECORDS SUMMARY | 2024-03-14 | XMS_ITS | Encounter Summary ---
Author Organization [facility] Address [address] [place] [address] Care Team Providers Care Clinical Data Abstractor Name Role Phone Cassius Chambers MD Primary Care Provider Encounter Details Date Type Department Care Team (Late st Contact Info) Description 04/21/2020 [facility] [address] [facility] [address] [place] [address] Cassius Chambers MD [address] [facility] [address] [place] [address] Social History Tobacco Use Types Packs/Day Years Used Date Smoking Tobacco: Never Smokeless Tobacco: Never Alcohol Use Standard Drinks/Week Comments No 0 (1 standard drink = 0.6 oz pur e alcohol) Comments No Sex and Gender Information Value Date Recorded Sex Assigned at Not on file Legal Sex Female 11:30 PM DRAWER HARDWARE WORKER Gender Identity Female 06/15/2023 1:45 PM CDT Sexual Orientation Straight 06/15/2023 1: 45 PM CDT documented as of this encounter Miscellaneous Notes * Telephone Encounter - Jennifer Gomez MA - 04/21/2020 4:53 PM DRAWER HARDWARE WORKER Called pt, sched appt ER HARDWARE WORKER * Telephone Encounter - Cassius Chambers MD - 04/21/2020 4:40 PM CST Come in tomorrow at 1 pm ER HARDWARE WORKER * Telephone Encounter - Arthur Da Silva MA - 04/21/2020 3:11 PM CST Pt called stating that she is still having severe back pain even after taking her prescribed hydrocodone. Pt states she only gets relief when she takes a tablet before bed. Pt is looking for other suggestions as to what she can do for her back pain ER HARDWARE WORKER documented in this encounter Plan of Treatment Not on file documented as of this encounter Visit Diagnoses Not on filedocumented in this encounter Care Teams Clinical Data Abstractor Relationship Specialty Start Date End Date Cassius Chambers MD [address] [address] PCP - General 08/12/16 12/30/20 documented as of this encounter
--- OUTSIDE RECORDS SUMMARY | 2024-03-14 | XMS_ITS | Encounter Summary ---
Author Organization [facility] Address [address] [place] [address] Care Team Providers Care Screen Printer Helper Name Role Phone Cassius Chambers MD Primary Care Provider [phone] Reason for Referral * Diagnostic Imaging (Routine) - Closed Specialty Diagnoses / Procedures Referred By Contac t Referred To Contact Diagnoses Age related osteoporosis, unspecified pathological fracture presence Post-menopausal Abnormal bone density screening Procedures Dexa Axial Skeleton Bone Density 1 or 2 Site Cassius Chambers MD [address] [facility] [address] [place] [address] Phone: tel: fax: [facility] [address] [place] [address] Referral ID Status Reason Start Date Expiration Date Visits Re quested Visits Authorized [id number] Closed 06/03/2020 07/03/2021 1 1 Reason for Visit * Reason Comments Follow-up Encounter Details Date Type Department Care Team (Late st Contact Info) Description 06/03/2020 12:30 PM CDT Office Visit [facility] [address] [facility] [address] [place] [facility] [place] [address] Cassius Chambers MD [address] [facility] [address] [place] [address] Type 2 diabetes mellitus with hyperglycemia, without [...] file Legal Sex Female 11:30 PM CERTIFIED DETENTION DEPUTY Gender Identity Female 06/15/2023 1:45 PM CDT [...] screening documented in this encounter Care Teams Screen Printer Helper Relationship Specialty Start Date End Date Cassius Chambers MD [address] [place] [address] PCP - General 08/12/16 12/30/20 documented as of this encounter
--- OUTSIDE RECORDS SUMMARY | 2024-03-14 | XMS_ITS | Encounter Summary ---
Author Organization [facility] Address [address] [place] [address] Phone Care Team Providers Care Pan Dumper Name Role Phone Cassius Chambers MD Primary Care Provider [phone] Encounter Details Date Type Department Care Team (Late st Contact Info) Description 05/27/2020 Telephone [facility] Cardiology [address] [facility] 8th [place] [address] [place] [address] Sp Madrid MD [address] [facility] [address] [place] [address] Social History Tobacco Use Types Packs/Day Years Used Date Smoking Tobacco: Never Smokeless Tobacco: Never Alcohol Use Standard Drinks/Week Comments No 0 (1 standard drink = 0.6 oz pur e alcohol) Comments No Sex and Gender Information Value Date Recorded Sex Assigned at Not on file Legal Sex Female 11:30 PM VP CLIENT SERVICES Gender Identity Female 06/15/2023 1:45 PM [...] out of refills. [facility]acy is [facility] @ [phone] documented in this encounter Plan of Treatment Not on file documented as of this encounter Visit Diagnoses Not on filedocumented in this encounter Discontinued Medications Medication Sig Discontinue Reason Start Date End Da te amLODIPine (NORVASC) 10 mg tablet Take 1 tablet by mouth once daily Reorder 03/03/2020 05/27/2020 documented as of this encounter Care Teams Pan Dumper Relationship Specialty Start Date End Date Cassius Chambers MD [address] [place] [address] PCP - General 08/12/16 12/30/20 documented as of this encounter
--- OUTSIDE RECORDS SUMMARY | 2024-03-14 | XMS_ITS | Encounter Summary ---
Author Organization [facility] Address [address] [place] [address] Phone Care Team Providers Care Antisqueak Chalker Name Role Phone Cassius Chambers MD Primary Care Provider [phone] Encounter Details Date Type Department Care Team (Latest Contact Info) Description 04/28/2020 11:45 AM CRIMINAL JUDGE Office Visit [facility] Cardiology [address] [facility] [address] [place] [address] Sp Madrid MD [address] [facility] [address] [place] [address] HTN (hypertension), benign (Primary Dx); Nonrheumatic mitral valve regurgitation Social History Tobacco Use Types Packs/Day Years Used Date Smoking Tobacco: Never Smokeless Tobacco: Never Alcohol Use Standard Drinks/Week Comments No 0 (1 standard drink = 0.6 oz pur e alcohol) Comments No Sex and Gender Information Value Date Recorded Sex Assigned at Not on file Legal Sex Female 11:30 PM CRIMINAL JUDGE Gender Identity Female 06/15/2023 1:45 PM CDT Sexual Orientation Straight 06/15/2023 1: 45 PM CDT documented as of this encounter Last Filed Vital Signs Vital Sign Reading Time Taken Comments Blood Pressure 152/74 04/28/2020 12:25 PM CRIMINAL JUDGE Pulse 70 04/28/2020 12:25 PM CRIMINAL JUDGE Temperature - - Respiratory Rate - - Oxygen Saturation 98% 04/28/2020 12:25 PM CRIMINAL JUDGE Inhaled Oxygen Concentration - - Weight 62.1 kg (137 lb) 04/28/2020 12:25 PM CRIMINAL JUDGE Height 152.4 cm (5') 04/28/2020 12:25 PM CRIMINAL JUDGE Body Mass Index 26.76 04/28/2020 12:25 PM CRIMINAL JUDGE documented in this encounter Patient Instructions * Patient Instructions* Sp Madrid MD - 04/28/2020 11:45 AM CRIMINAL JUDGE Lasix 20 mg a day for a few days then as needed only Low salt diet RTC 6 m INAL JUDGE INAL JUDGE INAL JUDGE documented in this encounter Progress Notes * pS Madrid MD - 04/28/2020 11:45 AM CST [...] normal 10/09/2018 Tc 112, HDL=34 LDL =56 Khjnfw=144 HbA1C 6.2 ECG done today : Assesment/Plan: [...] regarding her cardiac problems. Damien Norton MD hr recruiter Cardiology Division [facility] INAL JUDGE documented in this encounter Plan of Treatment Not on file documented as of this encounter Visit Diagnoses Diagnosis HTN (hypertension), benign- Primary Essential hypertension, benign Nonrheumatic mitral valve regurgitation documented in this encounter Care Teams Antisqueak Chalker Relationship Specialty Start Date End Date Cassius Chambers MD [address] [address] PCP - General 08/12/16 12/30/20 documented as of this encounter
--- OUTSIDE RECORDS SUMMARY | 2024-03-14 | XMS_ITS | Encounter Summary ---
Author Organization [facility] Address [address] [place] [address] Care Team Providers Care Palliative Care Physician Name Role Phone Cassius Chambers MD Primary Care Provider [phone] Reason for Visit * Reason Comments Hypertension Hyperlipidemia Sleeping Problem Encounter Details Date Type Department Care Team (Late st Contact Info) Description 09/30/2020 12:15 PM CDT Office Visit [facility] [address] [facility] [address] [place] [address] Cassius Chambers MD [address] [facility] [address] [place] [address] Impaired fasting glucose (Primary Dx); [...] on file Legal Sex Female 11:30 PM INCLUSION INTERNSHIP Gender Identity Female 06/15/2023 1:45 PM CDT [...] 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 History of CVA Plan: 1. [...] CDT Hyperlipidemia, unspecified hyperlipidemia type POCT GLUCOSE [id number] Routine 09/30/2020 12 :47 PM CDT Impaired [...] benign documented in this encounter Care Teams Palliative Care Physician Relationship Specialty Start Date End Date Cassius Chambers MD [address] [address] PCP - General 08/12/16 12/30/20 documented as of this encounter
--- OUTSIDE RECORDS SUMMARY | 2024-03-14 | XMS_ITS | Encounter Summary ---
Author Organization [facility] Healthcare Address [address] [place] [address] Care Team Providers Care Crm Developer Name Role Phone Cassius Chambers MD Primary Care Provider [phone] Reason for Referral * Diagnostic Imaging (Routine) - Closed Specialty Diagnoses / Procedures Referred By Contac t Referred To Contact Radiology Diagnoses Compression fracture of body of thoracic vertebra (CMS/HCC) (HCC) Procedures IR Kyphoplasty Thoracic With Image Guidance Cassius Chambers MD [address] [employer] [employer] [address] [address] Phone: tel: fax: [facility] [address] [place] [address] Referral ID Status Reason Start Date Expiration Date Visits Re quested Visits Authorized [id number] Closed 05/13/2020 06/12/2021 1 1 Reason for Visit * Diagnostic Imaging (Routine) - Closed Specialty Diagnoses / Procedures Referred By Contac t Referred To Contact Radiology Diagnoses Compression fracture of body of thoracic vertebra (CMS/HCC) (HCC) Procedures IR Kyphoplasty Thoracic With Image Guidance Cassius Chambers MD [address] [employer] [address] [address] Phone: tel: fax: [facility] [address] [place] [address] Referral ID Status Reason Start Date Expiration Date Visits Re quested Visits Authorized [id number] Closed 05/13/2020 06/12/2021 1 1 Encounter Details Date Type Department Care Team (Late st Contact Info) Description 05/23/2020 9:27 AM CDT - 05/23/2020 1:30 PM CDT Hospital Encounter [facility] Radiology [address] [place] [address] Cassius Chambers MD [address] [facility] [address] [place] [address] Chris Frye MD [address] [place] [address] Stephanie Coe MD [address] [facility] [address] [place], [place] [id number] Compression fracture of body of thoracic vertebra [...] on file Legal Sex Female 11:30 PM PIECE WORK INSPECTOR Gender Identity Female 06/15/2023 1:45 PM [...] - ESSENTIAL (PRIMARY) HYPERTENSION Unspecified essential hypertension intermediate card tender (current) use of aspirin - COLLECTIONS AGENT (CURRENT) USE OF ASPIRIN intermediate card tender (current) use of anticoagulants - SENIOR LIVING (CURRENT) USE OF ANTICOAGULANTS Long-term (current) use of anticoagulants Personal history of malignant neoplasm of breast - PERSONAL HISTORY OF MALIGNANT NEOPLASM OF BREAST Acquired absence of left breast and nipple - ACQUIRED ABSENCE OF LEFT BREAST AND NIPPLE documented in this encounter Discharge Instructions * Attachments The following attachments cannot be sent through Care Everywhere. * Kyphoplasty (Discharge Care) (Hungarian) documented in this encounter Medications at Time [...] Radiology Brief Post Procedure Note Attending: kiel Cashier Or Checker Stock Clerk: jo-ann coe steinbrecher Sedation/Anesthesia: Min Sedation Pre-Op/Pre-Procedure [...] taking for the 05/23/20 encounter (Hospital Encounter)with [facility] [id number]. Physical exam: General: Awake and alert, [...] been discussed with the patient and/or their residential sales representative. All questions answered and they agree [...] was obtained. ??Prior to beginning the procedure, [place] Protocol was performed to confirm the patient's [...] body was accessed with a 10 gauge Valkee introducer under fluoroscopic guidance via the right pedicle. ??The needle tip was advanced to the posterior 1/4 of the vertebral body. ??The needle tip position was verified with multiple fluoroscopic views. A 20 mm ballon was placed with cavity created across midline. The same procedure was repeated at the T12 level. Bone cement was prepared and delivered from the [place] curve nitinol needle. ??In the L1 vertebral [...] endplates and pedicle to pedicle. Procedure Note Crhis Frye MD - 05/23/2020 EXAMINATION: T12 and [...] was obtained. Prior to beginning the procedure, [place] Protocol was performed to confirm the patient's [...] body was accessed with a 10 gauge Laurel introducer under fluoroscopic guidance via the right pedicle. The needle tip was advanced to the posterior 1/4 of the vertebral body. The needle tip position was verified with multiple fluoroscopic views. A 20 mm ballon was placed with cavity created across midline. The same procedure was repeated at the T12 level. Bone cement was prepared and delivered from the [place] curve nitinol needle. In the L1 vertebral [...] RN) documented in this encounter Care Teams Crm Developer Relationship Specialty Start Date End Date Cassius Chambers MD [address] [address] PCP - General 08/12/16 12/30/20 documented as of this encounter
--- OUTSIDE RECORDS SUMMARY | 2024-03-14 | XMS_ITS | Encounter Summary ---
Author Organization [facility] Healthcare Address [address] [place] [address] Care Team Providers Care Attending Radiologist Name Role Phone Cassius Chambers MD Primary Care Provider [phone] Encounter Details Date Type Department Care Team (Late st Contact Info) Description 05/26/2020 Telephone [facility] Radiology [address] [place] [address] Erin Sawyer RN Social History Tobacco Use Types Packs/Day Years Used Date Smoking Tobacco: Never Smokeless Tobacco: Never Alcohol Use Standard Drinks/Week Comments No 0 (1 standard drink = 0.6 oz pur e alcohol) Comments No Sex and Gender Information Value Date Recorded Sex Assigned at Not on file Legal Sex Female 11:30 PM AGENT Gender Identity Female 06/15/2023 1:45 PM CDT Sexual Orientation Straight 06/15/2023 1: 45 PM CDT documented as of this encounter Miscellaneous Notes * Telephone Encounter - Erin Sawyer RN - 05/26/2020 2:27 PM CDT [facility] Radiology DOS 05/23/2020 IMPRESSION: 1. T12 and L1 vertebral augmentation with cavity creation under fluoroscopic guidance. The patient had reduction of pain symptoms at the conclusion of the procedure. Post procedure follow up call. I spoke to Mr. Johnson and he reports that Yuliana still has [...] on filedocumented in this encounter Care Teams Attending Radiologist Relationship Specialty Start Date End Date Cassius Chambers MD [address] [address] PCP - General 08/12/16 12/30/20 documented as of this encounter
--- OUTSIDE RECORDS SUMMARY | 2024-03-14 | XMS_ITS | Encounter Summary ---
Author Organization [facility] Healthcare Address [address] [place] [address] Care Team Providers Care Maintenance Porter Name Role Phone Cassius Chambers MD Primary Care Provider [phone] Encounter Details Date Type Department Care Team (Late st Contact Info) Description 06/23/2020 Telephone [facility] Radiology 1 [place] [address] Estella Talley RN Social History Tobacco Use Types Packs/Day Years Used Date Smoking Tobacco: Never Smokeless Tobacco: Never Alcohol Use Standard Drinks/Week Comments No 0 (1 standard drink = 0.6 oz pur e alcohol) Comments No Sex and Gender Information Value Date Recorded Sex Assigned at Not on file Legal Sex Female 11:30 PM FIELD APPRAISER Gender Identity Female 06/15/2023 1:45 PM CDT Sexual Orientation Straight 06/15/2023 1: 45 PM CDT documented as of this encounter Miscellaneous Notes * Telephone Encounter - Estella Talley RN - 06/23/2020 1:33 PM CDT [facility] Radiology. 1 month post procedure call. DOS: [...] on filedocumented in this encounter Care Teams Maintenance Porter Relationship Specialty Start Date End Date Cassius Chambers MD [address] [address] PCP - General 08/12/16 12/30/20 documented as of this encounter
--- OUTSIDE RECORDS SUMMARY | 2024-03-14 | XMS_ITS | Encounter Summary ---
Author Organization [facility] Address [address] [place] [address] Phone Care Team Providers Care Physician Interventional Cardiologist Name Role Phone Cassius Chambers MD Primary Care Provider [phone] Reason for Visit * Reason Onset Date Comments Med Management 04/29/2020 Lasix Encounter Details Date Type Department Care Team (Late st Contact Info) Description 04/29/2020 Telephone [facility] Cardiology [address] [facility] 8th [place] [address] [place] [address] Sp Madrid MD [address] [facility] [address] [place] [address] Med Management (Lasix) Social History Tobacco Use Types Packs/Day Years Used Date Smoking Tobacco: Never Smokeless Tobacco: Never Alcohol Use Standard Drinks/Week Comments No 0 (1 standard drink = 0.6 oz pur e alcohol) Comments No Sex and Gender Information Value Date Recorded Sex Assigned at Not on file Legal Sex Female 11:30 PM CLEANING TEAM MEMBER Gender Identity Female 06/15/2023 1:45 PM [...] the original note were not included. [facility] RepresentativeSigned 2:01 PM Julius ?? Pt [...] Script for Lasix 20 mg sent to [facility] pharmacy for #30 per her request. NING TEAM MEMBER NING TEAM MEMBER * Telephone Encounter - Alecia Ratliff - 04/29/2020 2:01 PM CST Julius Pt would like a call back to discuss being put on a water pill. Please call NING TEAM MEMBER documented in this encounter Plan of Treatment Not on file documented as of this encounter Visit Diagnoses Not on filedocumented in this encounter Care Teams Physician Interventional Cardiologist Relationship Specialty Start Date End Date Cassius Chambers MD [address] [address] PCP - General 08/12/16 12/30/20 documented as of this encounter
--- OUTSIDE RECORDS SUMMARY | 2024-03-14 | XMS_ITS | Encounter Summary ---
Author Organization [facility] Healthcare Address [address] [place] [address] Care Team Providers Care Atmospheric Sciences Professor Name Role Phone Cassius Chambers MD Primary Care Provider Encounter Details Date Type Department Care Team (Late st Contact Info) Description 05/30/2020 Telephone [facility] Radiology 1 [place] [address] Estella Talley RN Social History Tobacco Use Types Packs/Day Years Used Date Smoking Tobacco: Never Smokeless Tobacco: Never Alcohol Use Standard Drinks/Week Comments No 0 (1 standard drink = 0.6 oz pur e alcohol) Comments No Sex and Gender Information Value Date Recorded Sex Assigned at Not on file Legal Sex Female 11:30 PM DOCUMENT MANAGEMENT TECHNICIAN Gender Identity Female 06/15/2023 1:45 PM CDT Sexual Orientation Straight 06/15/2023 1: 45 PM CDT documented as of this encounter Miscellaneous Notes * Telephone Encounter - Estella Talley RN - 05/30/2020 2:34 PM CDT [facility] Radiology. 1 week post procedure DOS: 3-26-21 [...] call at the 1 month post procedure keyon to follow up. She we call with in the interim with any changesor questions documented in this encounter Plan of Treatment Not on file documented as of this encounter Visit Diagnoses Not on filedocumented in this encounter Care Teams Atmospheric Sciences Professor Relationship Specialty Start Date End Date Cassius Chambers MD [address] [place] [address] PCP - General 08/12/16 12/30/20 documented as of this encounter
--- OUTSIDE RECORDS SUMMARY | 2024-03-14 00:01 | XMS_ITS | Encounter Summary ---
Author Organization [facility] Address [address] [place] [address] Phone Care Team Providers Care Dry Cleaning Checker Name Role Phone Cassius Chambers MD Primary Care Provider [phone] Encounter Details Date Type Department Care Team (Late st Contact Info) Description 07/10/2018 Telephone [facility] Cardiology [address] [facility] [address] [facility] 8th [place] [address] [place] [address] Sp Madrid MD [address] [facility] [address] [place] [address] Social History Tobacco Use Types Packs/Day Years Used Date Smoking Tobacco: Never Smokeless Tobacco: Never Alcohol Use Standard Drinks/Week Comments No 0 (1 standard drink = 0.6 oz pur e alcohol) Comments Unknown Sex and Gender Information Value Date Recorded Sex Assigned at Not on file Legal Sex Female 11:30 PM AUTOMOTIVE PORTER Gender Identity Female 06/15/2023 1:45 PM CDT Sexual Orientation Straight 06/15/2023 1: 45 PM CDT documented as of this encounter Miscellaneous Notes * Telephone Encounter - Florence Stallings - 07/10/2018 1:24 PM CDT [facility] PT RETURNING CALL TO RESCHEDULE APPT AT THE [facility] ON DOS 10/02/18. PLS CALL PT. documented in this encounter Plan of Treatment Not on file documented as of this encounter Visit Diagnoses Not on filedocumented in this encounter Care Teams Dry Cleaning Checker Relationship Specialty Start Date End Date Cassius Chambers MD [address] [place] [address] PCP - General 08/12/16 12/30/20 documented as of this encounter
--- OUTSIDE RECORDS SUMMARY | 2024-03-14 00:01 | XMS_ITS | Encounter Summary ---
Author Organization [facility] Address [address] [place] [address] Phone Care Team Providers Care Outsole Caser Name Role Phone Cassius Chambers MD Primary Care Provider [phone] Reason for Referral * Cardiology (Routine) - Closed Specialty Diagnoses / Procedures Referred By Cata quintanilla Referred To Contact Diagnoses Nonrheumatic mitral valve regurgitation Procedures Transthoracic Echo Complete W Doppler/CF Yarely Kilpatrick MD [address] [facility] [address] [place] [address] Phone: tel: fax: [facility] (All Locations) Referral ID Status Reason Start Date Expiration Date Visits Re quested Visits Authorized [id number] Closed 12/26/2019 01/24/2021 1 1 Encounter Details Date Type Department Care Team (Latest Contact Info) Description 12/26/2019 10:15 AM CDT Office Visit [facility] Cardiology [address] [facility] [address] [place] [address] Yarely Kilpatrick MD [address] [facility] [address] [place] [address] Nonrheumatic mitral valve regurgitation (Primary Dx) Social History Tobacco Use Types Packs/Day Years Used Date Smoking Tobacco: Never Smokeless Tobacco: Never Alcohol Use Standard Drinks/Week Comments No 0 (1 standard drink = 0.6 oz pur e alcohol) Comments No Sex and Gender Information Value Date Recorded Sex Assigned at Not on file Legal Sex Female 11:30 PM LOOSELEAF BINDER COVERER Gender Identity Female 06/15/2023 1:45 PM CDT [...] affect. 10/09/2018 Tc 112, HDL=34 LDL =56 Wdmidu=560 HbA1C 6.2 ECG done today : Assesment/Plan: [...] regarding her cardiac problems. Damien Norton MD machine stoppage frequency checker Cardiology Division [facility] documented in this encounter Plan of Treatment Not on file documented as of this encounter Results * TRANSTHORACIC ECHO (TTE) COMPLETE W DOPPLER/CF WO CONTRAST (04/28/2020 11:26 AM LOOSELEAF BINDER COVERER) Anatomical Region Laterality Modality Ultrasound 04/28/2020 10:3 0 AM LOOSELEAF BINDER COVERER Narrative 04/28/2020 9:44 PM LOOSELEAF BINDER COVERER Patient name: Yuliana Johnson Date of test: 04/28/2020 Type of test: TTE w/Doppler Hospital #: 0 Date of : 1940 (F) Central Processing Tech: Bacilio Muñiz [facility] RVT Referring Physician: YARELY KILPATRICK MD Contrast [...] 2=Hypo 3=Akinetic 4=Dyskin./Aneurysm 0=Not visualized) Parasternal Long D Lo:MAS=1 BAS=1 MIL=1 ESTUARDO=1 Parasternal Short D Lo:MAS=1 MIS=1 WY=1 MIL=1 MAL=1 MA=1 Apical 4 Chambers:=1 MIS=1 BIS=1 BAL=1 MAL=1 AL=1 AC=1 Apical 2 Chambers:AI=1 WY=1 BI=1 BA=1 MA=1 AA=1 AC=1 LV Global [...] MD By signing this report, the attending education consultant certifies that he or she has personally supervised and interpreted the echocardiogram and has reviewed and or edited and agrees with the written comments contained within the report. Procedure Note Yarely Kilpatrick MD - 04/28/2020 Patient name: Yuliana Johnson Date of test: 04/28/2020 Type of test: TTE w/Doppler [facility] #: 0 Date of : 1940 (F) Central Processing Tech: Bacilio Muñiz [facility] Referring Physician: YARELY KILPATRICK MD Contrast Agent: Contrast Administered by: Supervised/Interpreted by: Yarely Kilpatrick MD Diagnosis: Location: [facility] Reason for test: Non rheumatic mitral valve [...] 2=Hypo 3=Akinetic 4=Dyskin./Aneurysm 0=Not visualized) Parasternal Long D Lo:MAS=1 BAS=1 MIL=1 ESTUARDO=1 Parasternal Short D Lo:MAS=1 MIS=1 WY=1 MIL=1 MAL=1 MA=1 Apical 4 Chambers:=1 MIS=1 BIS=1 BAL=1 MAL=1 AL=1 AC=1 Apical 2 Chambers:AI=1 WY=1 BI=1 BA=1 MA=1 AA=1 AC=1 LV Global [...] MD By signing this report, the attending education consultant certifies that he or she has personally supervised and interpreted the echocardiogram and has reviewed and or edited and agrees with the written comments contained within the report. us Yarely Kilpatrick MD CV ECHO PROCEDURES Final Resul t documented in this encounter Visit Diagnoses Diagnosis Nonrheumatic mitral valve regurgitation- Primary Nonrheumatic mitral valve regurgitation documented in this encounter Care Teams Outsole Caser Relationship Specialty Start Date End Date Cassius Chambers MD [address] [place] [address] PCP - General 08/12/16 12/30/20 documented as of this encounter
--- OUTSIDE RECORDS SUMMARY | 2024-03-14 00:01 | XMS_ITS | Encounter Summary ---
Author Organization [facility] Address [address] [place] [address] Phone Care Team Providers Care Shipper And Receiving Name Role Phone Cassius Chambers MD Primary Care Provider [phone] Encounter Details Date Type Department Care Team (Latest Contact Info) Description 11/15/2018 9:15 AM CDT Office Visit [facility] Cardiology [address] [facility] [address]th [place] [address] [place] [address] Sp Madrid MD [address] [facility] [address] [place] [address] Non-rheumatic mitral regurgitation (Primary Dx); [...] file Legal Sex Female 11:30 PM COMMUNITY HEALTH REPRESENTATIVE Gender Identity Female 06/15/2023 1:45 PM [...] normal. 10/09/2018 Tc 112, HDL=34 LDL =56 Icmgec=869 HbA1C 6.2 ECG done today : Assesment/Plan: [...] regarding her cardiac problems. Damien Norton MD benzene still utility operator Cardiology Division [facility] documented in this encounter Plan of Treatment Not on file documented as of this encounter Visit Diagnoses Diagnosis Non-rheumatic mitral regurgitation- Primary Tricuspid valve disorder Tricuspid valve disorders, specified as nonrheumatic HTN (hypertension), benign Essential hypertension, benign documented in this encounter Care Teams Shipper And Receiving Relationship Specialty Start Date End Date Cassius Chambers MD [address] [facility] [address] [place] [address] PCP - General 08/12/16 12/30/20 documented as of this encounter
--- OUTSIDE RECORDS SUMMARY | 2024-03-14 00:01 | XMS_ITS | Encounter Summary ---
Author Organization [facility] Healthcare Address [address] [place] [address] Care Team Providers Care Cabin Cleaning Supervisor Name Role Phone Cassius Chambers MD Primary Care Provider [phone] Encounter Details Date Type Department Care Team (Late st Contact Info) Description 04/19/2018 9:27 AM PARTS CLEANER Anesthesia Event [facility] [address] [place] [id number] Jesus Alberto Flores MD [address] [place] [address] Ratna Long CRNA [address] [place] [address] Anesthesia Record Procedure Summary Procedure Name Responsible [...] Chlorhexidine; Technique: Anatomical landmarks; Inserted by: EDD Pierre; Insertion Attempts: 1; Patient Tolerance: Tolerated well; [...] on file Legal Sex Female 11:30 PM PARTS CLEANER Gender Identity Female 06/15/2023 1:45 PM CDT Sexual Orientation Straight 06/15/2023 1: 45 PM CDT documented as of this encounter OR Notes * Anesthesia Postprocedure Evaluation - Jesus Alberto Flores MD - 04/19/2018 10:13 AM CST Patient: Yuliana Johnson Procedure Summary Date: 04/19/18 Room / Location: [facility] Anesthesia Start: 926 [...] acceptable Pt is: normothermic Nausea/Vomiting status: none S CLEANER * Anesthesia Preprocedure Evaluation - Jesus Alberto [...] Medication protocol when under care of a DIRECTOR TRANSLATION Planned anesthesia: MAC Postoperative Plan: No plan for postoperative opioid use. No postoperative mechanical ventilation intended. Patient's planned disposition post procedure is Outpatient. Informed Consent: Discussed plan with DIRECTOR TRANSLATION. Anesthesia plan and risks discussed with patient. Consent and Attending signature: I and/or my designee have discussed the anesthesia plan, benefits, possible alternatives, parental presence at time of induction (if indicated), and clinically relevant risks that may include dental injury, unintentional awareness, and/or other complications. The patient and/or parent/legal guardian understand, and agree to proceed. All questions answered. S CLEANER S CLEANER * Anesthesia Postprocedure Evaluation - Ratna Long CRNA - 04/19/2018 10:11 AM CST Patient: Yuliana Johnson Procedure Summary Date: 04/19/18 Room / Location: [facility] Anesthesia Start: 926 [...] Alberto Flores MD at 04/19/2018 10:14 AM PARTS CLEANER S CLEANER S CLEANER documented in this encounter Plan of Treatment [...] 0948, Anesthesia Intra-op Given 04/19/2018 9:57 AM PARTS CLEANER 100 mcg Given 04/19/2018 9:49 AM PARTS CLEANER 100 mcg Given 04/19/2018 9:48 AM PARTS CLEANER 100 mcg propofol (DIPRIVAN) IV intravenous, Continuous PRN, Starting on Tue04/19/18 at 0938, Anesthesia Intra-op Rate/Dose Change 04/19/2018 9:57 AM PARTS CLEANER 50 mcg/kg/min 20.01 mL/hr Rate/Dose Change 04/19/2018 9:47 AM PARTS CLEANER 80 mcg/kg/min 32.0 2 mL/hr Rate/Dose Change 04/19/2018 9:43 AM PARTS CLEANER 100 mcg/kg/min 40. 02 mL/hr propofol (DIPRIVAN) IV intravenous, As needed, Starting on Tue04/19/18 at 0940, Anesthesia Intra-op Given 04/19/2018 9:52 AM PARTS CLEANER 10 mg Given 04/19/2018 9:51 AM PARTS CLEANER 10 mg Given 04/19/2018 9:40 AM PARTS CLEANER 50 mg documented in this encounter Care Teams Cabin Cleaning Supervisor Relationship Specialty Start Date End Date Cassius Chambers MD [address] [address] PCP - General 08/12/16 12/30/20 documented as of this encounter
--- OUTSIDE RECORDS SUMMARY | 2024-03-14 00:01 | XMS_ITS | Encounter Summary ---
Author Organization [facility] Address [address] [place] [address] Phone Care Team Providers Care Sand Carrier Name Role Phone Cassius Chambers MD Primary Care Provider [phone] Reason for Visit * (Routine) - Closed Specialty Diagnoses / Procedures Referred By Contac t Referred To Contact Diagnoses PAF (paroxysmal atrial fibrillation) (CMS/HCC) (HCC) Procedures MCT Mobile Cardiac Telemetry Event Monitor Sp Madrid MD [address] [facility] [address] [place] [address] Phone: tel: fax: [facility] (All Locations) Referral ID Status Reason Start Date Expiration Date Visits Re quested Visits Authorized [id number] Closed 07/25/2019 02/02/2021 1 1 Encounter Details Date Type Department Care Team (Latest Contact Info) Description 07/25/2019 10:00 AM CDT Ancillary Procedure [facility] Cardiology [address] [place] [address] [address] [place] [address] PAF (paroxysmal atrial fibrillation) (CMS/HCC) Social History Tobacco Use Types Packs/Day Years Used Date Smoking Tobacco: Never Smokeless Tobacco: Never Alcohol Use Standard Drinks/Week Comments No 0 (1 standard drink = 0.6 oz pur e alcohol) Comments No Sex and Gender Information Value Date Recorded Sex Assigned at Not on file Legal Sex Female 11:30 PM ORTHOPEDIC PODIATRIST Gender Identity Female 06/15/2023 1:45 PM CDT Sexual Orientation Straight 06/15/2023 1: 45 PM CDT documented as of this encounter Plan of Treatment Pending Results Name Type Priority Associated Diagnoses Date /Time MCT Mobile Cardiac Telemetry Event Monitor Cardiac Services Routine PAF (paroxysmal atrial fibrillation) ([facility]) 07/25/2019 9:52 AM CDT documented as of this encounter Visit Diagnoses Diagnosis PAF (paroxysmal atrial fibrillation) (CMS/[facility]) ([facility]) Atrial fibrillation documented in this encounter Care Teams Sand Carrier Relationship Specialty Start Date End Date Cassius Chambers MD [address] [address] PCP - General 08/12/16 12/30/20 documented as of this encounter
--- OUTSIDE RECORDS SUMMARY | 2024-03-14 00:01 | XMS_ITS | Encounter Summary ---
Author Organization [facility] Address [address] [place] [address] Phone Care Team Providers Care Bath Attendant Name Role Phone Cassius Chambers MD Primary Care Provider [phone] Reason for Visit * (Routine) - Closed Specialty Diagnoses / Procedures Referred By Contac t Referred To Contact Diagnoses Mitral valve insufficiency, unspecified etiology Procedures Transthoracic Echo Complete W Doppler/CF Sp Kilpatrick MD Phone: tel: fax: [facility] (All Locations) Referral ID Status Reason Start Date Expiration Date Visits Re quested Visits Authorized [id number] Closed 04/03/2018 10/13/2019 1 1 Encounter Details Date Type Department Care Team (Latest Contact Info) Description 04/11/2018 12:30 PM ICING MACHINE OPERATOR Ancillary Procedure [facility] Cardiology [address] [facility] [address] [place] [address] Mitral valve insufficiency, unspecified etiology Social History Tobacco Use Types Packs/Day Years Used Date Smoking Tobacco: Never Smokeless Tobacco: Never Comments Unknown Sex and Gender Information Value Date Recorded Sex Assigned at Not on file Legal Sex Female 11:30 PM ICING MACHINE OPERATOR Gender Identity Female 06/15/2023 1:45 PM CDT Sexual Orientation Straight 06/15/2023 1: 45 PM CDT documented as of this encounter Plan of Treatment Not on file documented as of this encounter Procedures Procedure Name Priority Date/Time Associated Diagnosis Comments TRANSTHORACIC ECHO (TTE) COMPLETE W DOPPLER/CF WO CONTRAST Routine 04/11/2018 1:03 PM ICING MACHINE OPERATOR Mitral valve insufficiency, unspecified etiology documented in this encounter Results * TRANSTHORACIC ECHO (TTE) COMPLETE W DOPPLER/CF WO CONTRAST (04/11/2018 1:03 PM ICING MACHINE OPERATOR) Anatomical Region Laterality Modality Ultrasound 04/11/2018 12:3 0 PM ICING MACHINE OPERATOR Narrative 04/11/2018 9:40 PM ICING MACHINE OPERATOR Patient name: Yuliana Johnson Date of test: 04/11/2018 Type of test: TTE w/Doppler [facility] #: 0 Date of : 1940 (F) Business Performance Manager: Liv Mccormick [facility] RVT Referring Physician: SP KILPATRICK MD Contrast Agent: Contrast Administered by: Supervised/Interpreted by: Sp Kilpatrick MD Diagnosis: MV Repair, TV Repair Location: [facility] Reason for test: MV Repair, TV Repair [...] 2=Hypo 3=Akinetic 4=Dyskin./Aneurysm 0=Not visualized) Parasternal Long [place]:MAS=1 BAS=1 MP=1 BP=1 Parasternal Short [place]:MAS=1 MS=1 HI=1 MP=1 ML=1 MA=1 Apical 4 Chambers:=1 MS=1 BS=1 BL=1 HI=1 AL=1 Apical 2 Chambers:AI=1 HI=1 BI=1 BA=1 MA=1 AA=1 LV Global Longitudinal [...] MD By signing this report, the attending program management professional certifies that he or she has personally supervised and interpreted the echocardiogram and has reviewed and or edited and agrees with the written comments contained within the report. Procedure Note Sp Kilpatrick MD - 04/11/2018 Patient name: Yuliana Johnson Date of test: 04/11/2018 Type of test: TTE w/Doppler [facility] #: 0 Date of : 1940 (F) Business Performance Manager: Liv Mccormick [facility] RVT Referring Physician: SP KILPATRICK MD Contrast Agent: Contrast Administered by: Supervised/Interpreted by: Sp Kilpatrick MD Diagnosis: MV Repair, TV Repair Location: [facility] Reason for test: MV Repair, TV Repair [...] 2=Hypo 3=Akinetic 4=Dyskin./Aneurysm 0=Not visualized) Parasternal Long [place]:MAS=1 BAS=1 MP=1 BP=1 Parasternal Short [place]:MAS=1 MS=1 HI=1 MP=1 ML=1 MA=1 Apical 4 Chambers:=1 MS=1 BS=1 BL=1 HI=1 AL=1 Apical 2 Chambers:AI=1 HI=1 BI=1 BA=1 MA=1 AA=1 LV Global Longitudinal [...] MD By signing this report, the attending program management professional certifies that he or she has personally supervised and interpreted the echocardiogram and has reviewed and or edited and agrees with the written comments contained within the report. Result [facility] Sp Kilpatrick MD CV ECHO PROCEDURES Final Resul t documented in this encounter Visit Diagnoses Diagnosis Mitral valve insufficiency, unspecified etiology documented in this encounter Care Teams Bath Attendant Relationship Specialty Start Date End Date Cassius Chambers MD [address] [address] PCP - General 08/12/16 12/30/20 documented as of this encounter
--- OUTSIDE RECORDS SUMMARY | 2024-03-14 00:01 | XMS_ITS | Encounter Summary ---
Author Organization [facility] Healthcare Address [address] [place] [address] Care Team Providers Care Textile Artist Name Role Phone Cassius Chambers MD Primary Care Provider [phone] Encounter Details Date Type Department Care Team (Late st Contact Info) Description 04/11/2018 1:30 PM FILL TECHNICIAN Lab [facility] Advanced Medicine - [facility] [address] [facility] [address] [place], [place] [id number] Sp Madrid MD [address] [facility] [address] [place] [address] Pre-operative cardiovascular examination Discharge Disposition: Discharge to home or self care Social History Tobacco Use Types Packs/Day Years Used Date Smoking Tobacco: Never Smokeless Tobacco: Never Comments Unknown Sex and Gender Information Value Date Recorded Sex Assigned at Not on file Legal Sex Female 11:30 PM FILL TECHNICIAN Gender Identity Female 06/15/2023 1:45 PM [...] CBC WITHOUT DIFFERENTIAL Routine 04/11/2018 1:29 PM FILL TECHNICIAN Pre-operative cardiovascular examination BASIC METABOLIC PANEL Routine 04/11/2018 1:29 PM FILL TECHNICIAN Pre-operative cardiovascular examination documented in this encounter Results * (ABNORMAL) CBC without differential (04/11/2018 1:29 PM FILL TECHNICIAN) WBC 6.6 3.8 - 9.9 K/cumm [facility] Hgb 12.9 11.9 - 15.5 g/dL [facility] Hct 40.2 35.6 - 45.5 % [facility] Plt 227 150 - 400 K/cumm [facility] MPV 11.8 9.1 - 12.3 fL [facility] RBC 4.55 3.90 - 5.20 M/cumm [facility] MCV 88.4 81.3 - 96.4 fL [facility] MCH 28.4 27.1 - 33.3 pg [facility] MCHC 32.1(L) 32.3 - 35.7 g/dL [facility] RDW CV 14.2 11.1 - 14.9 % [facility] RDW SD 45.2 35.7 - 48.1 fL [facility] NRBC abs 0.00 0.00 - 0.01 K/cumm [facility] Blood specimen (specimen) 04/11/2018 1:29 PM FILL TECHNICIAN 04/11/2018 3:36 PM FILL TECHNICIAN Narrative [facility] - 04/11/2018 3:47 PM FILL TECHNICIAN us Sp Madrid MD LAB BLOOD ORDERABLES Final Res ult [facility] Department [place] [address] * (ABNORMAL) Basic metabolic panel (04/11/2018 1:29 PM FILL TECHNICIAN) Pathologist [facility] Sodium 143 135 - 145 mmol/L [facility] Potassium, pl 4.9 3.3 - 4.9 mmol/L [facility] Chloride 112(H) 97 - 110 mmol/L [facility] CO2 27 22 - 32 mmol/L [facility] Anion gap 4 2 - 15 mmol/L [facility] BUN 13 8 - 25 mg/dL [facility] Creatinine 0.97 0.60 - 1.10 mg/dL [facility] Glucose 95 70 - 199 mg/dL [facility] Comment: Interpretive Data Fasting glucose >/= 126 [...] 2017. Calcium 9.5 8.5 - 10.3 mg/dL [facility] Blood specimen (specimen) 04/11/2018 1:29 PM FILL TECHNICIAN 04/11/2018 3:35 PM FILL TECHNICIAN Narrative [facility] - 04/11/2018 3:57 PM FILL TECHNICIAN us Sp Madrid MD LAB BLOOD ORDERABLES Final Res ult [facility] Department [place] [address] documented in this encounter Visit Diagnoses Diagnosis Pre-operative cardiovascular examination documented in this encounter Care Teams Textile Artist Relationship Specialty Start Date End Date Cassius Chambers MD [address] [facility] [address] [place] [address] PCP - General 08/12/16 12/30/20 documented as of this encounter
--- OUTSIDE RECORDS SUMMARY | 2024-03-14 00:01 | XMS_ITS | Encounter Summary ---
Author Organization [facility] Address [address] [place] [address] Phone Care Team Providers Care Sheet Metal Welder Name Role Phone Cassius Chambers MD Primary Care Provider Reason for Referral * (Routine) - Closed Specialty Diagnoses / Procedures Referred By Contac t Referred To Contact Diagnoses Irregular heartbeat Procedures ECG 12 lead Sp Madrid MD Phone: tel: fax: [facility] (All Locations) Referral ID Status Reason Start Date Expiration Date Visits Re quested Visits Authorized [id number] Closed 05/08/2018 11/17/2019 1 1 Encounter Details Date Type Department Care Team (Late st Contact Info) Description 05/08/2018 9:45 AM CDT Office Visit [facility] Cardiology [address] [facility] [address] [place] [address] [place] [address] Sp Madrid MD [address] [facility] [address] [place] [address] Irregular heartbeat (Primary Dx) Social History Tobacco Use Types Packs/Day Years Used Date Smoking Tobacco: Never Smokeless Tobacco: Never Alcohol Use Standard Drinks/Week Comments No 0 (1 standard drink = 0.6 oz pur e alcohol) Comments Unknown Sex and Gender Information Value Date Recorded Sex Assigned at Not on file Legal Sex Female 11:30 PM FRONT OFFICE SPECIALIST Gender Identity Female 06/15/2023 1:45 [...] regarding her cardiac problems. Damien Norton MD strain technician Cardiology Division [facility] documented in this encounter Plan [...] dysrhythmia documented in this encounter Care Teams Sheet Metal Welder Relationship Specialty Start Date End Date Cassius Chambers MD [address] [facility] [address] [place] [address] PCP - General 08/12/16 12/30/20 documented as of this encounter
--- OUTSIDE RECORDS SUMMARY | 2024-03-14 00:01 | XMS_ITS | Encounter Summary ---
Author Organization [facility] Address [address] [place] [address] Phone Care Team Providers Care Permastone Applicator Name Role Phone Cassius Chambers MD Primary Care Provider [phone] Reason for Referral * (Routine) - Closed Specialty Diagnoses / Procedures Referred By Contac t Referred To Contact Diagnoses PAF (paroxysmal atrial fibrillation) (CMS/HCC) ([facility]) Procedures MCT Mobile Cardiac Telemetry Event Monitor Sp Madrid MD [address] [facility] [address] [place] [address] Phone: tel: fax: [facility] (All Locations) Referral ID Status Reason Start Date Expiration Date Visits Re quested Visits Authorized [id number] Closed 07/25/2019 02/02/2021 1 1 Encounter Details Date Type Department Care Team (Late st Contact Info) Description 07/25/2019 9:15 AM CDT Telemedicine [facility] Cardiology [address] [facility] [address] [place] [address] Sp Madrid MD [address] [facility] [address] [place] [address] PAF (paroxysmal atrial fibrillation) (CMS/HCC) (Primary Dx) Social History Tobacco Use Types Packs/Day Years Used Date Smoking Tobacco: Never Smokeless Tobacco: Never Alcohol Use Standard Drinks/Week Comments No 0 (1 standard drink = 0.6 oz pur e alcohol) Comments No Sex and Gender Information Value Date Recorded Sex Assigned at Not on file Legal Sex Female 11:30 PM URBAN REDEVELOPMENT SPECIALIST Gender Identity Female 06/15/2023 1:45 PM [...] During the visit, I was located [facility] and the patient was located Home. The [...] lb). 10/09/2018 Tc 112, HDL=34 LDL =56 Gwhxgs=331 HbA1C 6.2 ECG done today : Assesment/Plan: [...] regarding her cardiac problems. Damien Norton MD aircraft line assembler Cardiology Division [facility] documented in this encounter Plan of Treatment Pending Results Name Type Priority Associated Diagnoses Date /Time MCT Mobile Cardiac Telemetry Event Monitor Cardiac Services Routine PAF (paroxysmal atrial fibrillation) ([facility]) 07/25/2019 9:52 AM CDT Scheduled Orders Name Type Priority Associated Diagnoses Orde r Schedule MCT Mobile Cardiac Telemetry Event Monitor Cardiac Services Routine PAF (paroxysmal atrial fibrillation) (CMS/HCC) Expected: 07/25/2019, Expires: 07/24/2020 documented as of this encounter Visit Diagnoses Diagnosis PAF (paroxysmal atrial fibrillation) (CMS/HCC) ([facility])- Primary Atrial fibrillation documented in this encounter Care Teams Permastone Applicator Relationship Specialty Start Date End Date Cassius Chambers MD [address] [address] PCP - General 08/12/16 12/30/20 documented as of this encounter
--- OUTSIDE RECORDS SUMMARY | 2024-03-14 00:01 | XMS_ITS | Encounter Summary ---
Author Organization [facility] Healthcare Address [address] [place] [address] Care Team Providers Care Skill Training Program Coordinator Name Role Phone Cassius Chambers MD Primary Care Provider Encounter Details Date Type Department Care Team (Latest Contact Info) Description 02/10/2019 12:10 AM SURVEY STATISTICIAN - 02/10/2019 11:59 PM SURVEY STATISTICIAN Hospital Encounter [facility] Vascular Lab [address] [place] [address] Iraida Dacosta MD [address] [place] [address] [place] [address] Discharge Disposition: Discharge to home or self care Social History Tobacco Use Types Packs/Day Years Used Date Smoking Tobacco: Never Smokeless Tobacco: Never Alcohol Use Standard Drinks/Week Comments No 0 (1 standard drink = 0.6 oz pur e alcohol) Comments No Sex and Gender Information Value Date Recorded Sex Assigned at Not on file Legal Sex Female 11:30 PM SURVEY STATISTICIAN Gender Identity Female 06/15/2023 1:45 PM CDT [...] DUPLEX BILATERAL IP Routine 02/10/2019 8:17 AM SURVEY STATISTICIAN documented in this encounter Results * US Carotids Duplex Bilateral (02/10/2019 8:17 AM SURVEY STATISTICIAN) Anatomical Region Laterality Modality Vascular Bilateral Ultrasound 02/11/2019 9:39 AM SURVEY STATISTICIAN Impressions 02/11/2019 9:40 AM SURVEY STATISTICIAN 1. There is minimal atherosclerotic plaque in [...] Mohsen Bai M.D. Narrative 02/11/2019 9:40 AM SURVEY STATISTICIAN EXAM: ??Duplex imaging study of the carotid [...] on filedocumented in this encounter Care Teams Skill Training Program Coordinator Relationship Specialty Start Date End Date Cassius Chambers MD [address] [facility] [address], [place] [address] PCP - General 08/12/16 12/30/20 documented as of this encounter
--- OUTSIDE RECORDS SUMMARY | 2024-03-14 00:01 | XMS_ITS | Encounter Summary ---
Author Organization [facility] Address [address] [place] [address] Phone Care Team Providers Care Sprinkler Fitter Helper Name Role Phone Cassius Chambers MD Primary Care Provider [phone] Encounter Details Date Type Department Care Team (Latest Contact Info) Description 05/16/2019 10:15 AM CDT Office Visit [facility] Cardiology [address] [facility] 8th [place] [address] [place] [address] Sp Madrid MD [address] [facility] [address] [place] [address] Nonrheumatic mitral valve regurgitation (Primary [...] on file Legal Sex Female 11:30 PM LEVEL VIAL INSPECTOR Gender Identity Female 06/15/2023 1:45 PM [...] normal. 10/09/2018 Tc 112, HDL=34 LDL =56 [id number] HbA1C 6.2 ECG done today : Assesment/Plan: [...] regarding her cardiac problems. Damien Norton MD polytechnic teacher Cardiology Division [facility] documented in this [...] documented as of this encounter Care Teams Sprinkler Fitter Helper Relationship Specialty Start Date End Date Cassius Chambers MD [address] [place] [address] PCP - General 08/12/16 12/30/20 documented as of this encounter
--- OUTSIDE RECORDS SUMMARY | 2024-03-14 00:01 | XMS_ITS | Encounter Summary ---
Author Organization [facility] Address [address] [place] [address] Care Team Providers Care Programming Engineer Name Role Phone Cassius Chambers MD Primary Care Provider [phone] Reason for Referral * Diagnostic Imaging (Routine) [...] CONTRAST Yarely Kilpatrick MD Phone: tel: fax: [address] [phone] Referral ID Status Reason Start Date Expiration Date Visits Re quested Visits Authorized [id number] Closed 04/11/2018 10/21/2019 1 1 TER CAPTAIN Reason for Visit * Diagnostic Imaging (Routine) [...] W LTD DOPPLER/CF WO CONTRAST TRANSESOPHAGEAL ECHOCARDIOGRAM (KALRY) COMPLETE W/ COLOR TRANSESOPHAGEAL ECHO (KARLY) WO DOPPLER/CF W CONTRAST Yarely Kilpatrick MD Phone: tel: fax: [address] [phone] Referral ID Status Reason Start Date Expiration Date Visits Re quested Visits Authorized [id number] Closed 04/11/2018 10/21/2019 1 1 Encounter Details Date Type Department Care Team (Latest Contact Info) Description 04/19/2018 7:46 AM LIGHTER CAPTAIN - 04/19/2018 11:59 PM LIGHTER CAPTAIN Hospital Encounter [facility] [address] [place] [phone] Yarely Kilpatrick MD [address] [place] [address] Jesus Alberto Flores MD [address] [place] [address] Retinal artery occlusion; Arteriosclerotic vascular [...] on file Legal Sex Female 11:30 PM LIGHTER CAPTAIN Gender Identity Female 06/15/2023 1:45 PM CDT Sexual Orientation Straight 06/15/2023 1: 45 PM CDT documented as of this encounter Last Filed Vital Signs Vital Sign Reading Time Taken Comments Blood Pressure 138/65 04/19/2018 11:10 AM LIGHTER CAPTAIN Pulse 69 04/19/2018 11:10 AM LIGHTER CAPTAIN Temperature 36.6 ??C (97.9 ??F) 04/19/2018 10:[address] Respiratory Rate 22 04/19/2018 11:10 AM LIGHTER CAPTAIN Oxygen Saturation 99% 04/19/2018 11:10 AM LIGHTER CAPTAIN Inhaled Oxygen Concentration - - Weight 66.7 kg (147 lb 0.8 oz) 04/19/2018 8:19 A M LIGHTER CAPTAIN Height 156.2 cm (5' 1.5 ) 04/19/2018 8:19 AM LIGHTER CAPTAIN Body Mass Index 27.33 04/19/2018 8:19 AM LIGHTER CAPTAIN documented in this encounter Discharge Instructions * Discharge Instructions* Suni Simon MD - 04/19/2018 10:01 AM LIGHTER CAPTAIN PLEASE USE THIS A GUIDE AFTER YOUR [...] your home medications on your regular schedule. TER CAPTAIN documented in this encounter Medications at Time [...] order via wheelchair, with responsible caregiver . TER CAPTAIN documented in this encounter Miscellaneous Notes * [...] ??? Will remain free from falls Completed TER CAPTAIN * Pre-Procedure Note - Suni Simon MD - 04/19/2018 9:34 AM LIGHTER CAPTAIN KARLY Pre-evaluation Clinical Summary: 77 yo F [...] stomach: no Plan: Proceed with KARLY Suni Simon MD Cross Cut Saw Operator Time: 9:34 AM Date: 04/19/2018 Cosigned by Saeid Motley MD at 04/19/2018 1:21 PM LIGHTER CAPTAIN TER CAPTAIN TER CAPTAIN * Plan of Care - Zandra Darnell RN - 04/19/2018 8:21 AM LIGHTER CAPTAIN Activity: ??? Risk for activity intolerance will [...] ??? Will remain free from falls Progressing TER CAPTAIN * Pre-Procedure Note - Paola Boss RN [...] home due to anesthesia. Given directions to [employer] to utilize H&V fur repairer WC to [facility] TER CAPTAIN documented in this encounter Plan of Treatment Not on file documented as of this encounter Procedures Procedure Name Priority Date/Time Associated Diagnosis Comments TRANSESOPHAGEAL ECHO (KARLY) W DOPPLER/CF WO CONTRAST Routine 04/19/2018 10:01 AM LIGHTER CAPTAIN Retinal artery occlusion POC BLOOD GAS AND CHEMISTRIES, ARTERIAL Routine Gen Lab 04/19/2018 8:26 AM LIGHTER CAPTAIN POCT GLUCOSE DEVICE Routine Gen Lab 04/19/2018 8 :22 AM LIGHTER CAPTAIN documented in this encounter Results * TRANSESOPHAGEAL ECHO (KARLY) W DOPPLER/CF WO CONTRAST (04/19/2018 10:01 AM LIGHTER CAPTAIN) Anatomical Region Laterality Modality Echocardiography 04/19/2018 9:45 AM LIGHTER CAPTAIN Narrative 04/20/2018 1:43 PM LIGHTER CAPTAIN Patient name: Yuliana Johnson Date of test: 04/19/2018 Date of : 1940 (F) [facility] #: [id number] ?Location: [facility] Cardiac Diagnostic Lab Interpreted by: Saeid Motley MD Comb Capper: Suni Simon MD RN: Reason for Test: [...] 2=Hypo 3=Akinetic 4=Dyskin. 5=Aneurysm 0=Not visualized) Short [place]-Gastric:=1 S=1 I=1 P=1 L=1 A=1 Long [place]-Gastric:BP=1 BA=1 MP=1 MA=1 AP=1 AA=1 Chamber Dimensions: [...] - 13:43:20 by Saeid Motley MD ?? Cross Cut Saw Operator: Suni Simon MD By signing this report, the attending ends breakage clerk certifies that he or she has personally supervised and interpreted the echocardiogram and has reviewed and or edited and agrees with the written comments contained within the report. Procedure Note Saeid Motley MD - 04/20/2018 Patient name: Elizabeth, Yuliana Date of test: 04/19/2018 Date of : 1940 (F) [facility] #: [id number] Location: [facility] Cardiac Diagnostic Lab Interpreted by: Saeid Motley MD Comb Capper: Suni Simon MD RN: Reason for Test: [...] 2=Hypo 3=Akinetic 4=Dyskin. 5=Aneurysm 0=Not visualized) Short [place]-Gastric:=1 S=1 I=1 P=1 L=1 A=1 Long [place]-Gastric:BP=1 BA=1 MP=1 MA=1 AP=1 AA=1 Chamber Dimensions: [...] 04/20/2018 - 13:43:20 by Saeid Motley MD Cross Cut Saw Operator: Suni Simon MD By signing this report, the attending ends breakage clerk certifies that he or she has personally supervised and interpreted the echocardiogram and has reviewed and or edited and agrees with the written comments contained within the report. Yarely Kilpatrick MD CV ECHO PROCEDURES Final Resul t * POC Blood Gas and Chemistries, Arterial (04/19/2018 8:26 AM LIGHTER CAPTAIN) [facility] K POC 4.0 3.3 - 4.9 mmol/L [facility] Blood specimen (specimen) 04/19/2018 8:26 AM LIGHTER CAPTAIN 04/19/2018 8:26 AM LIGHTER CAPTAIN Narrative [facility] - 04/19/2018 8:28 AM LIGHTER CAPTAIN Yarely Kilpatrick MD LAB POCT ORDERABLES - DEVICE F inal Result Performing Organization Address [facility] de Phone Number [facility] [place] [address] * POCT glucose (04/19/2018 8:22 AM LIGHTER CAPTAIN) [facility] Glucose, POC 134 70 - 199 mg/dL [facility] Blood specimen (specimen) 04/19/2018 8:22 AM LIGHTER CAPTAIN 04/19/2018 8:22 AM LIGHTER CAPTAIN Narrative [facility] - 04/19/2018 8:30 AM LIGHTER CAPTAIN Yarely Kilpatrick MD LAB POCT ORDERABLES - DEVICE F inal Result Performing Organization Address [facility] de Phone Number [facility] [employer] [place] [address] documented in this encounter Visit Diagnoses Diagnosis [...] Pre-Procedure (CV) New Bag 04/19/2018 8:28 AM LIGHTER CAPTAIN 30 mL/hr 30 mL/hr documented in this encounter Orders Medications Ordered That Dion ht Not Have Been Administered Count Last Ordered Date First Ordered Date sodium chloride 0.9% flush 0.5-20 mL 1 04/01 documented in this encounter Care Teams Programming Engineer Relationship Specialty Start Date End Date Cassius Chambers MD [address] [address] PCP - General 08/12/16 12/30/20 documented as of this encounter
--- OUTSIDE RECORDS SUMMARY | 2024-03-14 00:01 | XMS_ITS | Encounter Summary ---
Author Organization [facility] Address [address] [place] [address] Phone Care Team Providers Care Programming Engineer Name Role Phone Cassius Chambers MD Primary Care Provider [phone] Reason for Referral * Diagnostic Imaging (Routine) [...] CONTRAST Yarely Kilpatrick MD Phone: tel: fax: [address] [phone] Referral ID Status Reason Start Date Expiration Date Visits Re quested Visits Authorized [id number] Closed 04/11/2018 10/21/2019 1 1 ND BUNCHER FINE WIRE Reason for Visit * Reason Onset Date Comments Eye Report 04/07/2018 Orders 04/07/2018 KARLY Encounter Details Date Type Department Care Team (Late st Contact Info) Description 04/07/2018 Telephone [facility] [address] [facility] 8th [place] [address] [place] [id number] Yarely Kilpatrick MD [address] [facility] [address] [place], [place] [id number] Eye Report; Orders (KARLY) Social History Tobacco Use Types Packs/Day Years Used Date Smoking Tobacco: Never Smokeless Tobacco: Never Comments Unknown Sex and Gender Information Value Date Recorded Sex Assigned at Not on file Legal Sex Female 11:30 PM STRAND BUNCHER FINE WIRE Gender Identity Female 06/15/2023 1:45 PM CDT Sexual Orientation Straight 06/15/2023 1: 45 PM CDT documented as of this encounter Miscellaneous Notes * Telephone Encounter - Jaimee Antony MA - 04/13/2018 1:50 PM STRAND BUNCHER FINE WIRE Pt maximino'd ND BUNCHER FINE WIRE * Telephone Encounter - Jaimee Antony MA - 04/13/2018 1:03 PM STRAND BUNCHER FINE WIRE LMOR asking pt to return call ND BUNCHER FINE WIRE * Telephone Encounter - Jaimee Antony MA - 04/11/2018 1:34 PM STRAND BUNCHER FINE WIRE Tried calling pt no answer and no voicemail ND BUNCHER FINE WIRE * Telephone Encounter - Yarely Kilpatrick MD - 04/07/2018 8:19 PM CST She need to see me after KARLY ND BUNCHER FINE WIRE * Telephone Encounter - Yarely Kilpatrick MD - 04/07/2018 8:17 PM CST She need to be scheduled for KARLY. Indication recent to r/o cardiac source of emboli ND BUNCHER FINE WIRE * Telephone Encounter - Mendy Torres RN - 04/07/2018 12:45 PM STRAND BUNCHER FINE WIRE Kilpatrick ?? Pt calling to discuss test [...] me after KARLY Called Rachel from the carpenter/labor and KARLY dates given: 04/19/18 at 0800 04/24/18 at 0800 04/25/18 at 0600 Called and spoke with pt who mentioned that she has an ECHO tomorrow at [facility] and will pick a KARLY date with nursing tomorrow when she can bring her calender with her. After pt's ECHO today, she choose to have her KARLY on 04/19/18 at 0800. Orders placed in [facility] BMP ordered for pre-op testing. LMOR for Rachel making her aware of KARLY orders. ND BUNCHER FINE WIRE ND BUNCHER FINE WIRE ND BUNCHER FINE WIRE ND BUNCHER FINE WIRE * Telephone Encounter - Galdino Silva - 04/07/2018 9:54 AM CST Julius Pt calling to discuss test results with you ND BUNCHER FINE WIRE documented in this encounter Plan of Treatment Not on file documented as of this encounter Results * TRANSESOPHAGEAL ECHO (KARLY) W DOPPLER/CF WO CONTRAST (04/19/2018 10:01 AM STRAND BUNCHER FINE WIRE) Anatomical Region Laterality Modality Echocardiography 04/19/2018 9:45 AM STRAND BUNCHER FINE WIRE Narrative 04/20/2018 1:43 PM STRAND BUNCHER FINE WIRE Patient name: Yuliana Johnson Date of test: 04/19/2018 Date of : 1940 (F) [facility] #: [id number] ?Location: [facility] Cardiac Diagnostic Lab Interpreted by: Saeid Motley MD Oncology Physician: Suni Simon MD RN: Reason for Test: [...] 2=Hypo 3=Akinetic 4=Dyskin. 5=Aneurysm 0=Not visualized) Short [place]-Gastric:=1 S=1 I=1 P=1 L=1 A=1 Long [place]-Gastric:BP=1 BA=1 MP=1 MA=1 AP=1 AA=1 Chamber Dimensions: [...] - 13:43:20 by Saeid Motley MD ?? Environmental Sciences Professor: Suni Simon MD By signing this report, the attending claims investigator certifies that he or she has personally supervised and interpreted the echocardiogram and has reviewed and or edited and agrees with the written comments contained within the report. Procedure Note Saeid Motley MD - 04/20/2018 Patient name: Yuliana Johnson Date of test: 04/19/2018 Date of : 1940 (F) [facility] #: [id number] Location: [facility] Cardiac Diagnostic Lab Interpreted by: Saeid Motley MD Oncology Physician: Suni Simon MD RN: Reason for Test: [...] 2=Hypo 3=Akinetic 4=Dyskin. 5=Aneurysm 0=Not visualized) Short [place]-Gastric:=1 S=1 I=1 P=1 L=1 A=1 Long [place]-Gastric:BP=1 BA=1 MP=1 MA=1 AP=1 AA=1 Chamber Dimensions: [...] 04/20/2018 - 13:43:20 by Saeid Motley MD Environmental Sciences Professor: Suni Simon MD By signing this report, the attending claims investigator certifies that he or she has personally supervised and interpreted the echocardiogram and has reviewed and or edited and agrees with the written comments contained within the report. us Yarely Kilpatrick MD CV ECHO PROCEDURES Final Resul t * (ABNORMAL) CBC without differential (04/11/2018 1:29 PM STRAND BUNCHER FINE WIRE) [facility] WBC 6.6 3.8 - 9.9 K/cumm [facility] Hgb 12.9 11.9 - 15.5 g/dL [facility] Hct 40.2 35.6 - 45.5 % [facility] Plt 227 150 - 400 K/cumm [facility] MPV 11.8 9.1 - 12.3 fL [facility] RBC 4.55 3.90 - 5.20 M/cumm [facility] MCV 88.4 81.3 - 96.4 fL [facility] MCH 28.4 27.1 - 33.3 pg [facility] MCHC 32.1(L) 32.3 - 35.7 g/dL [facility] RDW CV 14.2 11.1 - 14.9 % [facility] RDW SD 45.2 35.7 - 48.1 fL [facility] NRBC abs 0.00 0.00 - 0.01 K/cumm [facility] Blood specimen (specimen) 04/11/2018 1:29 PM STRAND BUNCHER FINE WIRE 04/11/2018 3:36 PM STRAND BUNCHER FINE WIRE Narrative [facility] - 04/11/2018 3:47 PM STRAND BUNCHER FINE WIRE Yarely Kilpatrick MD LAB BLOOD ORDERABLES Final Res ult Performing Organization Address City/[facility]/ZIP Co de Phone Number [facility] [employer] [place] [address] * (ABNORMAL) Basic metabolic panel (04/11/2018 1:29 PM STRAND BUNCHER FINE WIRE) [facility] Sodium 143 135 - 145 mmol/L [facility] Potassium, pl 4.9 3.3 - 4.9 mmol/L [facility] Chloride 112(H) 97 - 110 mmol/L [facility] CO2 27 22 - 32 mmol/L [facility] Anion gap 4 2 - 15 mmol/L [facility] BUN 13 8 - 25 mg/dL [facility] Creatinine 0.97 0.60 - 1.10 mg/dL [facility] Glucose 95 70 - 199 mg/dL [facility] Comment: Interpretive Data Fasting glucose >/= [...] 2017. Calcium 9.5 8.5 - 10.3 mg/dL [facility] Blood specimen (specimen) 04/11/2018 1:29 PM STRAND BUNCHER FINE WIRE 04/11/2018 3:35 PM STRAND BUNCHER FINE WIRE Narrative [facility] - 04/11/2018 3:57 PM STRAND BUNCHER FINE WIRE Yarely Kilpatrick MD LAB BLOOD ORDERABLES Final Res ult Performing Organization Address City/[facility]/ZIP Co de Phone Number [facility] [employer] [place] [address] documented in this encounter Visit Diagnoses Diagnosis Pre-operative cardiovascular examination- Primary Retinal artery occlusion Unspecified retinal vascular occlusion Pre-operative cardiovascular examination Retinal artery occlusion Unspecified retinal vascular occlusion Arteriosclerotic vascular disease Generalized and unspecified atherosclerosis Tricuspid valve disorder Tricuspid valve disorders, specified as nonrheumatic documented in this encounter Care Teams Programming Engineer Relationship Specialty Start Date End Date Cassius Chambers MD [address] [address] PCP - General 08/12/16 12/30/20 documented as of this encounter
--- OUTSIDE RECORDS SUMMARY | 2024-03-14 00:01 | XMS_ITS | Encounter Summary ---
Author Organization [facility] Facility Care Team Providers Care Soaking Pits Supervisor Name Role Phone Cassius Chambers MD Primary Care Provider [phone] Encounter Details Date Type Department Care Team [...] on file Legal Sex Female 11:30 PM APPLIED SCI[employer] DEAN Gender Identity Female 06/15/2023 1:45 PM CDT Sexual Orientation Straight 06/15/2023 1: 45 PM CDT documented as of this encounter Plan of Treatment Not on file documented as of this encounter Visit Diagnoses Not on filedocumented in this encounter Care Teams Soaking Pits Supervisor Relationship Specialty Start Date End Date Cassius Chambers MD [address] [address] PCP - General 08/12/16 12/30/20 documented as of this encounter
--- OUTSIDE RECORDS SUMMARY | 2024-03-14 00:01 | XMS_ITS | Encounter Summary ---
Author Organization [facility] Address [address] [place] [address] Care Team Providers Care Model Engine Mechanic Name Role Phone Cassius Chambers MD Primary Care Provider Reason for Visit * Reason Onset Date Comments Post fall03/24/2020 Encounter Details Date Type Department Care Team (Late st Contact Info) Description 03/24/2020 [facility] [address] [facility] [address] [place] [address] Cassius Chambers MD [address] [facility] [address] [place] [address] Post fall Social History Tobacco Use Types Packs/Day Years Used Date Smoking Tobacco: Never Smokeless Tobacco: Never Alcohol Use Standard Drinks/Week Comments No 0 (1 standard drink = 0.6 oz pur e alcohol) Comments No Sex and Gender Information Value Date Recorded Sex Assigned at Not on file Legal Sex Female 11:30 PM OFFSET PRESS OPERATOR HELPER Gender Identity Female 06/15/2023 1:45 PM CDT Sexual Orientation Straight 06/15/2023 1: 45 PM CDT documented as of this encounter Miscellaneous Notes * Telephone Encounter - Melanie Wilkes MA - 03/24/2020 1:18 PM CST Patient fell and has compression fracture thoracic Was at [facility] Tuesday morning due to fall She was referred to [facility]kins in [facility] for f/u FYI ET PRESS OPERATOR HELPER documented in this encounter Plan of Treatment Not on file documented as of this encounter Visit Diagnoses Not on filedocumented in this encounter Care Teams Model Engine Mechanic Relationship Specialty Start Date End Date Cassius Chambers MD [address] [address] PCP - General 08/12/16 12/30/20 documented as of this encounter
--- OUTSIDE RECORDS SUMMARY | 2024-03-14 00:01 | XMS_ITS | Encounter Summary ---
Author Organization [facility] Healthcare Address [address] [place] [address] Care Team Providers Care Auto Former Machine Operator Name Role Phone Cassius Chambers MD Primary Care Provider [phone] Encounter Details Date Type Department Care Team (Latest Contact Info) Description 02/09/2019 2:22 PM VARNISHING MACHINE OPERATOR - 02/11/2019 12:47 PM VARNISHING MACHINE OPERATOR Hospital Encounter [facility] [address] [place] [address] Taj Vargas MD [address] [facility] [place] [address] Sebast[place] [address] [address] Discharge Disposition: Discharge to home or self care Social History Tobacco Use Types Packs/Day Years Used Date Smoking Tobacco: Never Smokeless Tobacco: Never Alcohol Use Standard Drinks/Week Comments No 0 (1 standard drink = 0.6 oz pur e alcohol) Comments No Sex and Gender Information Value Date Recorded Sex Assigned at Not on file Legal Sex Female 11:30 PM VARNISHING MACHINE OPERATOR Gender Identity Female 06/15/2023 1:45 PM CDT Sexual Orientation Straight 06/15/2023 1: 45 PM CDT documented as of this encounter Last Filed Vital Signs Vital Sign Reading Time Taken Comments Blood Pressure 138/75 02/11/2019 12:15 PM VARNISHING MACHINE OPERATOR Pulse 67 02/11/2019 12:15 PM VARNISHING MACHINE OPERATOR Temperature 36.2 ??C (97.2 ??F) 02/11/2019 12:[address] Respiratory Rate 12 02/11/2019 12:15 PM VARNISHING MACHINE OPERATOR Oxygen Saturation 99% 02/11/2019 12:15 PM VARNISHING MACHINE OPERATOR Inhaled Oxygen Concentration - - Weight 62.8 kg (138 lb 8 oz) 02/09/2019 2:43 PM VARNISHING MACHINE OPERATOR Height 154.9 cm (5' 1 ) 02/10/2019 4:05 AM VARNISHING MACHINE OPERATOR Body Mass Index 26.17 02/09/2019 2:43 PM VARNISHING MACHINE OPERATOR documented in this encounter Discharge Diagnoses Diagnosis Cerebral infarction, unspecified (HCC) - CEREBRAL INFARCTION, UNSPECIFIED Encounter for immunization - ENCOUNTER FOR IMMUNIZATION Type 2 diabetes mellitus without complications (CMS/HCC) (HCC) - TYPE 2 DIABETES MELLITUS WITHOUT COMPLICATIONS Hyperlipidemia, unspecified - HYPERLIPIDEMIA, UNSPECIFIED Nihss score 1 - NIHSS SCORE 1 Essential (primary) hypertension - ESSENTIAL (PRIMARY) HYPERTENSION Unspecified essential hypertension Atherosclerotic heart disease of [place] coronary artery without angina pectoris - ATHEROSCLEROTIC HEART DISEASE OF [place] CORONARY ARTERY WITHOUT ANGINA PECTORIS Pulmonary hypertension, unspecified (HCC) - PULMONARY HYPERTENSION, UNSPECIFIED Fall from bed, initial encounter - FALL FROM BED, INITIAL ENCOUNTER Bedroom of unspecified non-institutional (private) residence as the place of occurrence of the external cause - BEDROOM OF UNSPECIFIED NON-INSTITUTIONAL (PRIVATE) RESIDENCE THE PLACE OF OCCURRENCE OF THE EXTER senior care (current) use of antithrombotics/antiplatelets - BRAND MARKETING MANAGER (CURRENT) USE OF ANTITHROMBOTICS/ANTIPLATELETS senior care (current) use of aspirin - BRAND MARKETING MANAGER (CURRENT) USE OF ASPIRIN senior care (current) use of oral hypoglycemic drugs - RESIDENTIAL (CURRENT) USE OF ORAL HYPOGLYCEMIC DRUGS Personal history of malignant neoplasm of breast - PERSONAL HISTORY OF MALIGNANT NEOPLASM OF BREAST documented in this encounter Discharge Summaries * Sebastián Montalvo MD - 02/11/2019 11:31 AM CST Inpatient Discharge Summary BRIEF OVERVIEW Admitting Provider: Taj Vargsa MD Discharge Provider: Sebastián Montalvo MD Primary Care Physician at Discharge: Cassius Chambers MD Admission Date: 02/09/2019 Discharge Date: February 11, 2019. Primary Discharge Diagnosis: Principal Problem: CVA (cerebral vascular accident) ([facility]) Active Problems: Type 2 diabetes mellitus (CMS/HCC) [...] normal. Was transferred from outside hospital at [facility] was she was admitted. The patient has [...] Provider Department Center 05/16/2019 10:15 AM Sp Madird MD CAR CAM 8A Cardiology @[email or web address]@ Time Spent On Discharge: ISHING MACHINE OPERATOR documented in this encounter Discharge Instructions * Attachments The following attachments cannot be sent through Care Everywhere. * Heart Healthy Diet (General Information) (Estonian) documented in this encounter Medications at Time of Discharge amLODIPine (NORVASC) 10 mg tablet Take 10 mg by mouth daily 05/16/2019 aspirin 325 mg tabletIndications :cerebral ischemia,Cerebral Ischemia Take 1 tablet (325 mg total) by mouth daily 30 tablet 02/12/2019 04/22/2020 carvedilol (COREG) 25 mg tablet Take 25 [...] Gen: Pt in NAD Lungs CTA Heart: [id number] Abd: +BS, Non Tender, Non distended, No [...] A/P Principal Problem: CVA (cerebral vascular accident) ([facility]) Active Problems: Type 2 diabetes mellitus ([facility]) Dyslipidemia HTN (hypertension), benign Mitral valve insufficiency Pulmonary hypertension ([facility]) S/P mitral valve repair Tricuspid valve disorder [...] Discharge planning the next 24 hours. 02/10/2019 ISHING MACHINE OPERATOR ISHING MACHINE OPERATOR * Anisa Frey, RD - 02/10/2019 3:02 [...] Carbohydrate Diet effective now Question Answer Comment ([facility]) Diet type Restricted Fat / Sodium Restriction: [...] at home usually. Initially failed dysphagia screening. SPORTS PHYSICIAN recommended regular/ thin consistency.Pt denies issues with [...] care, Labs, PO intake Anisa Frey RD,LD ISHING MACHINE OPERATOR * Liza Lopez, OT - 02/10/2019 2:23 PM CST Occupational Therapy Evaluation 02/10/19 0319 General Chart Reviewed Yes Session Type Evaluation [...] Mobility Equipment None Prior Function Level of Lynd Independent with ADLs;Independent functional transfers;Independent with homemaking [...] and Family verbalized understanding and demonstrated understanding ISHING MACHINE OPERATOR * Jennifer Stockton, PT - 02/10/2019 9:54 AM CST Physical Therapy 02/10/19 0997 General Chart Reviewed Yes Session Type Evaluation [...] of Steps 3 Prior Function Level of Lynd Independent with ADLs;Independent functional transfers;Independent with ambulation;Independent [...] balance;Decreased strength Barriers to Discharge None Modified [place] Score 2 Plan Plan Plan of care initiated Recommendation/Plan PT Recommendation/Plan Home with family;Home Health PT PT Frequency 5-7x/wk Treatment/Interventions Balance Training;Functional transfer training;Functional activity;Therapeutic exercise PT Evaluation Complete Yes Multi-Disciplinary Problems (from Physical Therapy) Active Problems Problem: PT [facility] Start Date: 02/10/19 Goal Start Date End Date [facility] 1 02/10/19 -- Goal Details: Patient to ambulate 200' without assistive device IND Goal Start Date End Date [facility] 2 02/10/19 -- Goal Details: Patient to perform 10-15 reps of high level balance exercise Goal Start Date End Date [facility] 3 02/10/19 -- Goal Details: Patient to demonstrate improved BARRERA score to at least 48 Education: Patient has been educated on the role of PT, safety , precautions, mobility training andstairs. Education completed via explanation, teach back and demonstration. Patient verbalized understanding and demonstrated understanding ISHING MACHINE OPERATOR * Vic Jacobo MD - 02/10/2019 8:46 [...] Stroke education. 9. Telemetry. 10. Permissive hypertension ISHING MACHINE OPERATOR * Stephanie Contreras - 02/09/2019 4:12 PM [...] 30 min after meal, Upright 90 degrees SPORTS PHYSICIAN - Next Appointment: (P) 02/11/19 Speech Evaluation Complete: (P) Yes Current Functional Status SPORTS PHYSICIAN Swallowing: (P) WFL; regular diet, thin liquids SPORTS PHYSICIAN Cognition: (P) TBD; slow processing noted/word finding difficulty SPORTS PHYSICIAN Communication: (P) WFL Multi-Disciplinary Problems (from Speech Therapy) Active Problems Problem: SPORTS PHYSICIAN [facility] Start Date: 02/09/19 Goal Start Date End Date [facility] 1 02/09/19 -- Goal Details: Pt will [...] General Chart Reviewed Yes Session Type Evaluation SPORTS PHYSICIAN Received On 02/09/19 Safe Environment Arm Band Checked;Bed Alarm placed and activated Subjective Agreeable to Therapy Additional Pertinent History limited history in chart; pt reports history of DM Family/Caregiver Present Yes Current Functional Status SPORTS PHYSICIAN Swallowing WFL; regular diet, thin liquids SPORTS PHYSICIAN Cognition TBD; slow processing noted/word finding difficulty SPORTS PHYSICIAN Communication WFL Cognition Overall Cognitive Status (TBD) [...] cognitive evaluation. Speech Therapy Prognosis Services Skilled SPORTS PHYSICIAN services to address the above deficits Prognosis Good Prognosis Considerations Medical diagnosis;Medical prognosis Plan Plan Continue with current plan Recommendations SPORTS PHYSICIAN Recommendation (Add'l Services) Defer at this time Treatment/Interventions Cognition/Memory;Expressive language;Receptive language SPORTS PHYSICIAN Frequency of Services 2-4x/wk SPORTS PHYSICIAN - Next Appointment 02/11/19 SPORTS PHYSICIAN - OK to Discharge No Speech Evaluation Complete Yes ISHING MACHINE OPERATOR documented in this encounter H&P Notes * [...] mellitus type 2, dyslipidemi a, presented to [facility] with complaints of unsteadiness. Around 6:00 [...] of baby aspirin and took her to [facility]. She was otherwise in her usual [...] time of presentation. After discussion with the [facility] stroke team, she was not a candidate [...] for inpatient status. Nallely Duque MD 02/09/2019 ISHING MACHINE OPERATOR documented in this encounter Consult Notes * [...] standpoint. The patient was then taken to [facility], transferred through the [facility] to [facility] for further evaluation and treatment. Patient has [...] history: The patient is , lives in [place]. Does not smoke, drink. Family history: No [...] valve surgeries. This looks very good. No [id number] shunt. A1c is 6.7. Head CT is [...] rehab needs. 8. Stroke education. 9. Telemetry. ISHING MACHINE OPERATOR documented in this encounter Miscellaneous Notes * Plan of Care - Lefty Gaviria RN - 02/11/2019 10:29 AM VARNISHING MACHINE OPERATOR Problem: Health Behavior: Goal: Understanding of discharge needs will improve 02/11/2019 1029 by Lefty [...] w outpt PT/OT/SPT today. Lefty Gaviria RN ISHING MACHINE OPERATOR * Plan of Care - Allison Oates [...] sugar required SSI. Will continue to monitor. ISHING MACHINE OPERATOR * Plan of Care - Lefty Gaviria RN - 02/10/2019 10:54 AM VARNISHING MACHINE OPERATOR Problem: Health Behavior: Goal: Understanding of discharge [...] Awaiting echo. PT seen. Lefty Gaviria RN ISHING MACHINE OPERATOR ISHING MACHINE OPERATOR * Plan of Care - Usman Natarajan RN - 02/10/2019 3:10 AM VARNISHING MACHINE OPERATOR Problem: Health Behavior: Goal: Understanding of discharge [...] rest. MRI done. Will continue to monitor. ISHING MACHINE OPERATOR * Plan of Care - Marylu Link [...] upon admission. Failed dysphagia screen, seen by SPORTS PHYSICIAN. Pt and family refusing aspirin at this time, MD is aware. Stroke education provided. Continue to monitor. ISHING MACHINE OPERATOR documented in this encounter Plan of Treatment Not on file documented as of this encounter Procedures Procedure Name Priority Date/Time Associated Diagnosis Comments POCT GLUCOSE DEVICE Routine 02/11/2019 6 :14 AM VARNISHING MACHINE OPERATOR POCT GLUCOSE DEVICE Routine 02/10/2019 8 :53 PM VARNISHING MACHINE OPERATOR POCT GLUCOSE DEVICE Routine 02/10/2019 5 :23 PM VARNISHING MACHINE OPERATOR TRANSTHORACIC ECHO (TTE) COMPLETE W DOPPLER/CF WO CONTRAST Pending Discharge 02/10/2019 3:53 PM VARNISHING MACHINE OPERATOR US CAROTIDS DUPLEX BILATERAL IP Routine 02/10/2019 8:17 AM VARNISHING MACHINE OPERATOR POCT GLUCOSE DEVICE Routine 02/10/2019 6 :03 AM VARNISHING MACHINE OPERATOR POCT GLUCOSE DEVICE Routine 02/09/2019 8 :27 PM VARNISHING MACHINE OPERATOR MRI BRAIN WO CONTRAST IP Routine 02/09/2019 8:09 PM VARNISHING MACHINE OPERATOR ECG 12-LEAD Routine 02/09/2019 5:49 PM VARNISHING MACHINE OPERATOR POCT GLUCOSE DEVICE Routine 02/09/2019 4 :59 PM VARNISHING MACHINE OPERATOR EGFR Routine 02/09/2019 4:47 PM VARNISHING MACHINE OPERATOR DIFFERENTIAL AUTO Routine 02/09/2019 4:4 7 PM VARNISHING MACHINE OPERATOR CBC WITH AUTO DIFFERENTIAL Routine 02/09/2019 4:47 PM VARNISHING MACHINE OPERATOR TSH Routine 02/09/2019 4:47 PM VARNISHING MACHINE OPERATOR MAGNESIUM Routine 02/09/2019 4:47 PM VARNISHING MACHINE OPERATOR HEMOGLOBIN A1C Routine 02/09/2019 4:47 PM VARNISHING MACHINE OPERATOR LIPID PANEL Routine 02/09/2019 4:47 PM VARNISHING MACHINE OPERATOR COMPREHENSIVE METABOLIC PANEL Routine 02/09/2019 4:47 PM VARNISHING MACHINE OPERATOR URINALYSIS AND REFLEX TO MICROSCOPIC AND CULTURE Routine 02/09/2019 3:53 PM VARNISHING MACHINE OPERATOR URINALYSIS, MICROSCOPIC ONLY Routine 02/09/2019 3:53 PM VARNISHING MACHINE OPERATOR documented in this encounter Results * POCT glucose (02/11/2019 6:14 AM VARNISHING MACHINE OPERATOR) Glucose, POC 129 70 - 140 mg/dL [facility] Comment: For Glucose values <35 mg/dl when Hematocrit is >60 mg/dl,the test may not accurately detect significant hypoglycemia,and testing in the Laboratory should be considered if clinically indicated. Blood specimen (specimen) 02/11/2019 6:14 AM VARNISHING MACHINE OPERATOR 02/11/2019 6:14 AM VARNISHING MACHINE OPERATOR us Sebastián Montalvo MD LAB POCT ORDERABLES - DEVICE Fin al Result Performing Organization Address [facility] Co de Phone Number [facility] [address] [facility] [place] [address] * (ABNORMAL) POCT glucose (02/10/2019 8:53 PM VARNISHING MACHINE OPERATOR) Glucose, POC 219(H) 70 - 140 mg/dL [facility] Comment: For Glucose values <35 mg/dl when Hematocrit is >60 mg/dl,the test may not accurately detect significant hypoglycemia,and testing in the Laboratory should be considered if clinically indicated. Blood specimen (specimen) 02/10/2019 8:53 PM VARNISHING MACHINE OPERATOR 02/10/2019 8:53 PM VARNISHING MACHINE OPERATOR Result [facility] Sebastián Montalvo MD LAB POCT ORDERABLES - DEVICE Fin al Result Performing Organization Address [facility] de Phone Number [facility] [address] [facility] [place] [address] * (ABNORMAL) POCT glucose (02/10/2019 5:23 PM VARNISHING MACHINE OPERATOR) Glucose, POC 164(H) 70 - 140 mg/dL [facility] Comment: For Glucose values <35 mg/dl when Hematocrit is >60 mg/dl,the test may not accurately detect significant hypoglycemia,and testing in the Laboratory should be considered if clinically indicated. Blood specimen (specimen) 02/10/2019 5:23 PM VARNISHING MACHINE OPERATOR 02/10/2019 5:23 PM VARNISHING MACHINE OPERATOR Sebastián Montalvo MD LAB POCT ORDERABLES - DEVICE Fin al Result Performing Organization Address [facility] Co de Phone Number [facility] [address] [place] [address] * TRANSTHORACIC ECHO (TTE) COMPLETE W DOPPLER/CF WO CONTRAST (02/10/2019 3:53 PM VARNISHING MACHINE OPERATOR) Anatomical Region Laterality Modality Ultrasound 02/10/2019 2:52 PM VARNISHING MACHINE OPERATOR Narrative 02/10/2019 8:08 PM VARNISHING MACHINE OPERATOR [facility] [address] [place] [address] ECHOCARDIOGRAM Patient Name: SHAVON SINGH : 1940 Study Date: 02/10/2019 2:52:07 PM Gender: F Tech: Location: [address] Ref.Physician: SEBASTIÁN MONTALVO Height(Cm): 163 BSA: [...] Signed By: Nirmal Morley MD 2019-02-10 20:07:59 VARNISHING MACHINE OPERATOR CC: CC: Procedure Note Nirmal Morley MD - 02/10/2019 [facility] [address] [place] [address] ECHOCARDIOGRAM Patient Name: SHAVON SINGH : [id number] Study Date: 02/10/2019 2:52:07 PM Gender: F Tech: Location: [id number] Ref.Physician: SEBASTINÁ MONTALVO Height(Cm): 163 BSA: 1.68 Weight(Kg): 62.6 Order Physician: ANLLELY DUQUE Procedures: Echocardiographic Report: Transthoracic Echocardiogram with [...] Signed By: Nirmal Morley MD 2019-02-10 20:07:59 VARNISHING MACHINE OPERATOR CC: CC: Nallely Duque MD CV ECHO PROCEDURES Final Resul t * US Carotids Duplex Bilateral (02/10/2019 8:17 AM VARNISHING MACHINE OPERATOR) Anatomical Region Laterality Modality Vascular Bilateral Ultrasound 02/11/2019 9:39 AM VARNISHING MACHINE OPERATOR Impressions 02/11/2019 9:40 AM VARNISHING MACHINE OPERATOR 1. There is minimal atherosclerotic plaque in [...] Mohsen Bai M.D. Narrative 02/11/2019 9:40 AM VARNISHING MACHINE OPERATOR EXAM: ??Duplex imaging study of the carotid [...] by: Mohsen Bai M.D. Nallely Duque MD [facility] PROCED[facility] Final Result * POCT glucose (02/10/2019 6:03 AM VARNISHING MACHINE OPERATOR) [facility] Signature Glucose, POC 125 70 - 140 mg/dL [facility] Comment: For Glucose values <35 mg/dl when Hematocrit is >60 mg/dl,the test may not accurately detect significant hypoglycemia,and testing in the Laboratory should be considered if clinically indicated. Blood specimen (specimen) 02/10/2019 6:03 AM VARNISHING MACHINE OPERATOR 02/10/2019 6:03 AM VARNISHING MACHINE OPERATOR us Sebastián Montalvo MD LAB POCT ORDERABLES - DEVICE Fin al Result [facility] [address] [place] [address] * (ABNORMAL) POCT glucose (02/09/2019 8:27 PM VARNISHING MACHINE OPERATOR) Glucose, POC 274(H) 70 - 140 mg/dL [facility] Comment: For Glucose values <35 mg/dl when Hematocrit is >60 mg/dl,the test may not accurately detect significant hypoglycemia,and testing in the Laboratory should be considered if clinically indicated. Blood specimen (specimen) 02/09/2019 8:27 PM VARNISHING MACHINE OPERATOR 02/09/2019 8:27 PM VARNISHING MACHINE OPERATOR us Taj Vargas MD LAB POCT ORDERABLES - DEVICE Final Result [facility] [address] [place] [address] * MRI Brain WO Contrast (02/09/2019 8:09 PM VARNISHING MACHINE OPERATOR) Anatomical Region Laterality Modality Head and Neck N/A Magnetic Resonan ce 02/10/2019 10:3 3 AM VARNISHING MACHINE OPERATOR Impressions 02/10/2019 10:41 AM VARNISHING MACHINE OPERATOR 1. ??Multiple punctate foci of acute ischemic infarct in the left cerebral hemisphere, described in detail above. 2. 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 Results called to the patient's RN by Dr. Chua at 10:35 AM on 02/10/2019. Electronically signed by: Hermes Chua MD Narrative 02/10/2019 10:41 AM VARNISHING MACHINE OPERATOR EXAMINATION: Magnetic resonance imaging (MRI) of the [...] Electronically signed by: Hermes Chua MD Nallely Duque MD IMG MRI PROCEDURES Final Resul t * ECG 12 lead (02/09/2019 5:49 PM VARNISHING MACHINE OPERATOR) 02/09/2019 5:49 PM VARNISHING MACHINE OPERATOR Narrative [facility] - 02/10/2019 9:12 AM VARNISHING MACHINE OPERATOR Vent Rate: 67 bpm RR Interval: 883 msec RI Interval: 155 msec QRS Duration: 110 msec QT Interval: 419 msec QTC Interval: 435 msec P-R-T [place]: 38 - 4 - 50 degrees SINUS RHYTHM WITH SINUS ARRHYTHMIA MINIMAL VOLTAGE CRITERIA FOR LVH, CONSIDER NORMAL VARIANT BORDERLINE ECG Electronically Signed By: Nirmal Morley MD Taj Vargas MD ECG ORDERABLES Final Result Performing Organization Address City/[facility]/ZIP Co de Phone Number [facility] * POCT glucose (02/09/2019 4:59 PM VARNISHING MACHINE OPERATOR) [facility] Glucose, POC 100 70 - 140 mg/dL [facility] Comment: For Glucose values <35 mg/dl when Hematocrit is >60 mg/dl,the test may not accurately detect significant hypoglycemia,and testing in the Laboratory should be considered if clinically indicated. Blood specimen (specimen) 02/09/2019 4:59 PM VARNISHING MACHINE OPERATOR 02/09/2019 4:59 PM VARNISHING MACHINE OPERATOR Taj Vargas MD LAB POCT ORDERABLES - DEVICE Final Result Performing Organization Address [facility]/ZIP Co de Phone Number [facility] [address] [place] [address] * eGFR (02/09/2019 4:47 PM VARNISHING MACHINE OPERATOR) [facility] eGFR 61 mL/min/1.7 3 m2 [facility] Comment: Interpretive Data Reference Interval Normal ?>/= 90 mL/min/1.73m2 Mildly decreased* ? 60 - 89 mL/min/1.73m2 Mildly to moderately decreased ?45 - 59 mL/min/1.73m2 Moderately to severely decreased ??30 - 44 mL/min/1.73m2 Severely decreased ?15 - 29 mL/min/1.73m2 Kidney Failure ?< 15 ??mL/min/1.73m2 *Relative to young adult level If -[place] multiply value by 1.16. Estimated glomerular filtration [...] 2016. Blood specimen (specimen) 02/09/2019 4:47 PM VARNISHING MACHINE OPERATOR 02/09/2019 5:01 PM VARNISHING MACHINE OPERATOR us Taj Vargas MD LAB BLOOD ORDERABLES Final Result [facility] [address] Department of Laboratories [place], [place] [id number] * Differential, auto (02/09/2019 4:47 PM VARNISHING MACHINE OPERATOR) Neutrophil abs 3.8 1.7 - 6.5 K/cumm [facility] Imm gran abs 0.0 0.0 - 0.1 K/cumm [facility] Lymphocyte abs 1.8 0.8 - 3.3 K/cumm [facility] Monocyte abs 0.4 0.2 - 0.8 K/cumm [facility] Eosinophil abs 0.1 0.0 - 0.5 K/cumm [facility] Basophil abs 0.1 0.0 - 0.1 K/cumm [facility] Neutrophil pct 61.3 % [facility] Comment: Interpretive Data Percent cell count reference ranges are not reported, since discordance with absolute values may lead to misinterpretation of CBC data. Current Interpretive Data was last revised on 2017. Imm gran pct 0.3 % [facility] Comment: Interpretive Data Percent cell count reference ranges are not reported, since discordance with absolute values may lead to misinterpretation of CBC data. Current Interpretive Data was last revised on 2017. Lymphocyte pct 28.8 % [facility] Comment: Interpretive Data Percent cell count reference ranges are not reported, since discordance with absolute values may lead to misinterpretation of CBC data. Current Interpretive Data was last revised on 2017. Monocyte pct 6.7 % [facility] Comment: Interpretive Data Percent cell count reference ranges are not reported, since discordance with absolute values may lead to misinterpretation of CBC data. Current Interpretive Data was last revised on 2017. Eosinophil pct 1.8 % [facility] Comment: Interpretive Data Percent cell count reference ranges are not reported, since discordance with absolute values may lead to misinterpretation of CBC data. Current Interpretive Data was last revised on 2017. Basophil pct 1.1 % [facility] Comment: Interpretive Data Percent cell count reference ranges are not reported, since discordance with absolute values may lead to misinterpretation of CBC data. Current Interpretive Data was last revised on 2017. Blood specimen (specimen) 02/09/2019 4:47 PM VARNISHING MACHINE OPERATOR 02/09/2019 5:02 PM VARNISHING MACHINE OPERATOR Taj Vargas MD LAB BLOOD ORDERABLES Final Result [facility] [address] [place] [address] * TSH (02/09/2019 4:47 PM VARNISHING MACHINE OPERATOR) Thyroid Stimulating Hormone 2.82 0.30 - 4.20 mcIUnit/mL [facility] Blood specimen (specimen) 02/09/2019 4:47 PM VARNISHING MACHINE OPERATOR 02/09/2019 5:01 PM VARNISHING MACHINE OPERATOR Taj Vargas MD LAB BLOOD ORDERABLES Final Result Performing Organization Address [facility] Co de Phone Number [facility] [address] Department of Laboratories [place] [address] * (ABNORMAL) Hemoglobin A1c (02/09/2019 4:47 PM VARNISHING MACHINE OPERATOR) [facility] Hgb A1C 7.6(H) 4.0 - 5.6 % [facility] Estimated Average Glucose 171 mg/dL [facility] Comment: The ADA recommends reporting an estimated Average Glucose (eAG) with all Hemoglobin A1c results using the equation derived from a study of 507 normal and diabetic adults. ??Minority populations were underrepresented and children were not included. ?? (Diabetes Care 31:5915-7212, 2008). ??The eAG is not equivalent to a fasting glucose. Blood specimen (specimen) 02/09/2019 4:47 PM VARNISHING MACHINE OPERATOR 02/09/2019 5:02 PM VARNISHING MACHINE OPERATOR Taj Vargas MD LAB BLOOD ORDERABLES Final Result Performing Organization Address [facility] Co de Phone Number [facility] [address] [place] [address] * (ABNORMAL) CBC with auto differential (02/09/2019 4:47 PM VARNISHING MACHINE OPERATOR) [facility] WBC 6.3 3.8 - 9.9 K/cumm [facility] Hgb 11.9 11.9 - 15.5 g/dL [facility] Hct 37.8 35.6 - 45.5 % [facility] Plt 204 150 - 400 K/cumm [facility] MPV 11.0 9.1 - 12.3 fL [facility] RBC 4.16 3.90 - 5.20 M/cumm [facility] MCV 90.9 81.3 - 96.4 fL [facility] MCH 28.6 27.1 - 33.3 pg [facility] MCHC 31.5(L) 32.3 - 35.7 g/dL [facility] RDW CV 13.3 11.1 - 14.9 % [facility] RDW SD 44.2 35.7 - 48.1 fL [facility] NRBC abs 0.00 0.00 - 0.01 K/cumm [facility] Blood specimen (specimen) 02/09/2019 4:47 PM VARNISHING MACHINE OPERATOR 02/09/2019 5:02 PM VARNISHING MACHINE OPERATOR us Taj Vargas MD LAB BLOOD ORDERABLES Final Result [facility] [address] Department [place] [address] * (ABNORMAL) Lipid panel (02/09/2019 4:47 PM VARNISHING MACHINE OPERATOR) Cholesterol 114 30 - 199 mg/dL [facility] Comment: Interpretive Data Ages < or = [...] revised on 2017. Triglycerides 103 <=149 mg/dL [facility] Comment: Interpretive Data Ages < or = [...] revised on 2017. HDL 39(L) >=40 mg/dL [facility] Comment: Interpretive Data Ages < or = [...] on 2017. LDL, calculated 54 <=129 mg/dL [facility] Comment: Interpretive Data Ages < or = [...] revised on 2017. Non-HDL Cholesterol 75 mg/dL [facility] Comment: Interpretive Data Ages < or = [...] last revised on 2017. Chol/HDL ratio 3 [facility] Blood specimen (specimen) 02/09/2019 4:47 PM VARNISHING MACHINE OPERATOR 02/09/2019 5:01 PM VARNISHING MACHINE OPERATOR Taj Vargas MD LAB BLOOD ORDERABLES Final Result Performing Organization Address [facility] de Phone Number [facility] [address] Department [place] [address] * Magnesium (02/09/2019 4:47 PM VARNISHING MACHINE OPERATOR) Pathologist [facility] Magnesium 1.79 1.40 - 2.50 mg/dL [facility] Blood specimen (specimen) 02/09/2019 4:47 PM VARNISHING MACHINE OPERATOR 02/09/2019 5:01 PM VARNISHING MACHINE OPERATOR Taj Vargas MD LAB BLOOD ORDERABLES Final Result Performing Organization Address [facility] de Phone Number [facility] [address] Department [place] [address] * (ABNORMAL) Comprehensive metabolic panel (02/09/2019 4:47 PM VARNISHING MACHINE OPERATOR) Pathologist [facility] Sodium 142 135 - 145 mmol/L [facility] Potassium, pl 4.1 3.3 - 4.9 mmol/L [facility] Chloride 111(H) 97 - 110 mmol/L [facility] CO2 21(L) 22 - 32 mmol/L [facility] Anion gap 10 2 - 15 mmol/L [facility] BUN 12 8 - 25 mg/dL [facility] Creatinine 0.89 0.60 - 1.10 mg/dL [facility] Glucose 128 70 - 199 mg/dL [facility] Comment: Interpretive Data Fasting glucose >/= 126 [...] 2017. Calcium 9.0 8.5 - 10.3 mg/dL [facility] Bilirubin, total 0.3 0.1 - 1.2 mg/dL [facility] Protein, pl 6.3(L) 6.5 - 8.5 g/dL [facility] Albumin 3.7 3.5 - 5.0 g/dL [facility] Alk phos 37(L) 40 - 130 Units/L [facility] ALT 26 7 - 45 Units/L [facility] AST 27 10 - 45 Units/L [facility] Blood specimen (specimen) 02/09/2019 4:47 PM VARNISHING MACHINE OPERATOR 02/09/2019 5:01 PM VARNISHING MACHINE OPERATOR us Taj Vargas MD LAB BLOOD ORDERABLES Final Result [facility] [address] [place] [address] * (ABNORMAL) Urinalysis, microscopic only (02/09/2019 3:53 PM VARNISHING MACHINE OPERATOR) WBC, ur 0-5 0 - 5 /HPF [facility] RBC, ur 0-2 0 - 2 /HPF [facility] Epithelial cells, squamous, ur 1-5 0 - 5 /HPF [facility] Bacteria, ur Trace(A) [facility] Culture Reflex Comment Reflex conditions for urine culture (WBC >10) not met. [facility] Urine 02/09/2019 3:53 PM VARNISHING MACHINE OPERATOR 02/09/2019 4:02 PM VARNISHING MACHINE OPERATOR Taj Vargas MD LAB URINE ORDERABLES Final Result Performing Organization Address [facility] Co de Phone Number [facility] [address] Department [place] [address] * (ABNORMAL) Urinalysis reflex to microscopic and culture Urine (02/09/2019 3:53 PM VARNISHING MACHINE OPERATOR) Color, ur Straw Yellow [facility] Clarity, ur Clear Clear [facility] Specific gravity, ur 1.008(L) 1.010 - 1.025 [facility] pH, urine 7.0 [facility] Protein, ur ql Negative Negative [facility] Glucose, ur ql Negative Negative [facility] Ketones, ur Negative Negative [facility] Bilirubin, ur Negative Negative [facility] Blood, ur Negative Negative [facility] Urobilinogen, ur <2.0 <2.0 mg/dL [facility] Nitrite, ur Negative Negative [facility] Leukocyte esterase, ur 3+(A) Negative [facility] UA reflex comment Reflex to microscopic UA will be performed. [facility] Urine 02/09/2019 3:5 3 PM VARNISHING MACHINE OPERATOR 02/09/2019 4:02 PM VARNISHING MACHINE OPERATOR Narrative [facility] - 02/09/2019 4:15 PM VARNISHING MACHINE OPERATOR ?? Urine pH is affected by diet, medications, systemic acid-base disturbances, and renal tubular function. ??pH may affect urinary stone formation. ??For example, urine pH below 6.0 may help reduce the tendency for calcium phosphate stones and pH greater than 6.0 may reduce the tendency for uric acid stone formation. Source: [facility] [employer]. Last revised 03-10-2017 Taj Vargas MD LAB MICROBIOLOGY - GE NERAL ORDERABLES Final Result Performing Organization Address [facility]/State/ZIP Co de Phone Number [facility] [address] Department [place] [address] documented in this encounter Visit Diagnoses Diagnosis [...] IschemiaIndications:cerebral ischemia,Cerebral Ischemia Given 02/11/2019 8:33 AM VARNISHING MACHINE OPERATOR 325 mg Given 02/10/2019 9:03 AM VARNISHING MACHINE OPERATOR 325 mg atorvastatin (LIPITOR) tablet 40 mg 40 mg, oral, Nightly, First dose on Tue02/09/19 at 2100 Given 02/10/2019 8:53 PM VARNISHING MACHINE OPERATOR 40 mg Given 02/09/2019 8:29 PM VARNISHING MACHINE OPERATOR 40 mg carvedilol (COREG) tablet 6.25 mg 6.25 mg, oral, 2 times daily with meals (bkfst, dinner), First dose (after last modification) on Tue02/10/19 at 1800 Given 02/11/2019 8:34 AM VARNISHING MACHINE OPERATOR 6.25 mg Given 02/10/2019 5:24 PM VARNISHING MACHINE OPERATOR 6.25 mg clopidogrel (PLAVIX) tablet 75 mg 75 mg, oral, Daily, First dose on Tue02/09/19 at 1645 Given 02/11/2019 8:34 AM VARNISHING MACHINE OPERATOR 75 mg Given 02/10/2019 9:03 AM VARNISHING MACHINE OPERATOR 75 mg Given 02/09/2019 5:23 PM VARNISHING MACHINE OPERATOR 75 mg dextrose (D10W) 10% bolus 250 [...] Call MD for each episode of hypoglycemia. COATER OPERATOR STATES GLUTOSE-15 CONTAINS GLUCOSE 40% W/W (50% [...] Vein Thrombosis Prevention Given 02/10/2019 8:53 PM VARNISHING MACHINE OPERATOR 40 mg Right Lower Abdomen Given 02/09/2019 8:29 PM VARNISHING MACHINE OPERATOR 40 mg Le ft Lower Abdomen fenofibrate nanocrystallized (TRICOR) tablet 145 mg 145 mg, oral, Daily, First dose on Tue02/09/19 at 1800 Given 02/11/2019 8:33 AM VARNISHING MACHINE OPERATOR 145 mg Given 02/10/2019 9:03 AM VARNISHING MACHINE OPERATOR 145 mg Given 02/09/2019 6:07 PM VARNISHING MACHINE OPERATOR 145 mg furosemide (LASIX) tablet 60 mg 60 mg, oral, Daily, First dose on Tue02/09/19 at 1800 Given 02/11/2019 8:33 AM VARNISHING MACHINE OPERATOR 60 mg Given 02/10/2019 9:03 AM VARNISHING MACHINE OPERATOR 60 mg Given 02/09/2019 6:07 PM VARNISHING MACHINE OPERATOR 60 mg glucagon injection 1 mg 1 [...] Diabetes MellitusIndications:Diabetes Mellitus Given 02/10/2019 8:54 PM VARNISHING MACHINE OPERATOR 2 Units Right Lower Abdomen Given 02/09/2019 8:28 PM VARNISHING MACHINE OPERATOR 3 Units Le ft Lower Abdomen insulin [...] type and size. Given 02/11/2019 6:23 AM VARNISHING MACHINE OPERATOR 10 mL Given 02/10/2019 10:24 PM VARNISHING MACHINE OPERATOR 10 mL Given 02/10/2019 3:09 PM VARNISHING MACHINE OPERATOR 10 mL sodium chloride 0.9% flush 0.5-20 [...] type and size. Given 02/10/2019 3:08 PM VARNISHING MACHINE OPERATOR 10 mL Given 02/10/2019 6:11 AM VARNISHING MACHINE OPERATOR 10 mL Given 02/09/2019 8:30 PM VARNISHING MACHINE OPERATOR 10 mL sodium chloride 0.9% flush 0.5-20 mL 0.5-20 mL, intra-catheter, As needed, line care, Starting on Tue02/09/19 at 1442, Flush volume based on line type and size. Flush before and after each use. zolpidem (AMBIEN) tablet 5 mg 5 mg, oral, Nightly PRN, sleep, Starting on Tue02/09/19 at 1724, Indications: Sleep-Onset InsomniaIndications:Sleep-Onset Insomnia Given 02/10/2019 10:16 PM VARNISHING MACHINE OPERATOR 5 mg documented in this encounter Discontinued [...] Recently Administered Medications Times are shown in VARNISHING MACHINE OPERATOR. Scheduled Medication Order 02/09/2019 02/10/2019 02/11/2019 aspirin [...] Cerebral Ischemia 1754 (Not Given - Provider: Marylu Link RN - Reason: Patient/family refused - [...] Gaviria RN) 0833 (Given - Provider: Lefty Gavirai RN) insulin lispro (HumaLOG) injection 1-3 Units [...] Call MD for each episode of hypoglycemia. COATER OPERATOR STATES GLUTOSE-15 CONTAINS GLUCOSE 40% W/W (50% [...] Call MD for each episode of hypoglycemia. COATER OPERATOR STATES GLUTOSE-15 CONTAINS GLUCOSE 40% W/W (50% [...] 02/09/2019 documented in this encounter Care Teams Auto Former Machine Operator Relationship Specialty Start Date End Date Cassius Chambers MD [address] [address] PCP - General 08/12/16 12/30/20 documented as of this encounter
--- OUTSIDE RECORDS SUMMARY | 2024-03-14 00:01 | XMS_ITS | Encounter Summary ---
Author Organization [facility] Healthcare Address [address] [place] [address] Care Team Providers Care Line Inspector Name Role Phone Cassius Chambers MD Primary Care Provider Encounter Details Date Type Department Care Team (Late st Contact Info) Description 04/10/2018 Telephone [facility] [place] [id number] [address] Allegra [place] RN Social History Tobacco Use Types Packs/Day Years Used Date Smoking Tobacco: Never Smokeless Tobacco: Never Comments Unknown Sex and Gender Information Value Date Recorded Sex Assigned at Not on file Legal Sex Female 11:30 PM INTAKE MAN Gender Identity Female 06/15/2023 1:45 PM CDT Sexual Orientation Straight 06/15/2023 1: 45 PM CDT documented as of this encounter Miscellaneous Notes * Telephone Encounter - Allegra [place] RN - 04/13/2018 1:43 PM INTAKE MAN Patient returned call, she has KARLY and appointment with scallop cutter coming up. She was given our number to call back to schedule screening colonoscopy once this is complete and she is cleared. KE MAN * Telephone Encounter - Allegra [place] RN - 04/13/2018 1:02 PM INTAKE MAN Left message at patient's home to discuss colonoscopy, noted cardiac testing pending. KE MAN * Telephone Encounter - Allegra [place] RN - 04/10/2018 9:22 AM INTAKE MAN Order received for screening colonoscopy, chart reviewed. Pt has cardiac testing pending with recent symptoms. Since this is a screening, will check back to see results before proceeding. KE MAN documented in this encounter Plan of Treatment Not on file documented as of this encounter Visit Diagnoses Not on filedocumented in this encounter Care Teams Line Inspector Relationship Specialty Start Date End Date Cassius Chambers MD [address] [address] PCP - General 08/12/16 12/30/20 documented as of this encounter
--- OUTSIDE RECORDS SUMMARY | 2024-03-14 00:01 | XMS_ITS | Encounter Summary ---
Author Organization [facility] Facility Care Team Providers Care Birth Attendant Name Role Phone Cassius Chambers MD Primary Care Provider [phone] Encounter Details Date Type Department Care Team [...] file Legal Sex Female 11:30 PM ELECTRICAL CAD DESIGNER Gender Identity Female 06/15/2023 1:45 PM [...] on filedocumented in this encounter Care Teams Birth Attendant Relationship Specialty Start Date End Date Cassius Chambers MD [address] [place] [address] PCP - General 08/12/16 12/30/20 documented as of this encounter
--- OUTSIDE RECORDS SUMMARY | 2024-03-14 00:02 | XMS_ITS | Encounter Summary ---
Author Organization [facility] Facility Care Team Providers Care Die Finisher Forging Name Role Phone Unavailable Primary Care Provider Unavailabl e Encounter Details Date Type Department Care Team (Late st Contact Info) Description 02/26/2015 - 02/26/2015 11:59 PM [address]M SETTER [address] [employer]MS Hospital Encounter [facility] Sp Hilton MD [address] [facility] [address] [place] [address] Social History Tobacco Use Types Packs/Day Years Used Date Smoking Tobacco: Never Assessed Comments Unknown Sex and Gender Information Value Date Recorded Sex Assigned at Not on file Legal Sex Female 11:30 PM [address]M SETTER [address] [employer]MS Gender Identity Female 06/15/2023 1:45 PM CDT [...]
--- OUTSIDE RECORDS SUMMARY | 2024-03-14 00:02 | XMS_ITS | Encounter Summary ---
Author Organization [facility] Healthcare Address [address] [place] [address] Care Team Providers Care Bed Laborer Name Role Phone Lillian Avila MD Primary Care Provider [phone] Encounter Details Date Type Department Care Team (Latest Contact Info) Description 12/06/2016 7:44 AM CDT - 12/06/2016 11:59 PM CDT Hospital Encounter [facility] [phone] Lillian Avila MD [address] [facility] [address] [place], [place] [id number] Discharge Disposition: Discharge to home or self care Social History Tobacco Use Types Packs/Day Years Used Date Smoking Tobacco: Never Comments Unknown Sex and Gender Information Value Date Recorded Sex Assigned at Not on file Legal Sex Female 11:30 PM STUDENT SERVICES COORDINATOR Gender Identity Female 06/15/2023 1:45 PM [...] M.D. FINAL REPORT ACC# ??Date Time ??Exam [id number] Dec 06, 2016 08:29:00 [facility] [id number] Mast Scr unilat w/EDITH R ?? Technologist(s): Abimbola Handley; ; EXAMINATION: ??Mammogram Technique: Right Breast Digital Breast Tomosynthesis, Unilateral C-view 2D Screening mammogram. ??Views obtained: ??right craniocaudal and right mediolateral oblique. ??Computer Aided Detection was performed. Mammogram Findings: The present examination has been compared to prior imaging studies performed at [facility] on 05/14/2013, 05/08/2014 and 10/27/2015. There are [...] RING M.D. on Dec 09 2016 ??2:38P [id number] RING M.D. FINAL REPORT Attending: ??MARGARITA, ??LILLIAN Requesting: ??Margarita, ??Lillian Requesting Fax: ?? Attending Fax: ?? Attending ID: ??[id number] Requesting ID: ??[id number] Report To 1 ID: ??[id number] ? Report To 1 Name: ??, ?? Report To 1 FAX: ?? NextGen Order #: ?? Procedure Note Miscellaneous, Not In File - 12/09/2016 MARY RING M.D. FINAL REPORT ACC# Date Time Exam [id number] Dec 06, 2016 08:29:00 [facility] [id number] Mast Scr unilat w/EDITH R Technologist(s): Abimbola Handley; ; EXAMINATION: Mammogram Technique: Right Breast Digital Breast Tomosynthesis, Unilateral C-view 2DScreening mammogram. Views obtained: right craniocaudal and right mediolateral oblique. Computer Aided Detection was performed. Mammogram Findings: The present examination has been compared to prior imaging studies performed at [facility] on 05/14/2013, 05/08/2014 and 10/27/2015. There are [...] RING M.D. on Dec 09 2016 2:38P [id number] RING M.D. FINAL REPORT Attending: LILLIAN AVILA Requesting: Lillian Avila Requesting Fax: Attending Fax: Attending ID: [id number] Requesting ID: [id number] Report To 1 ID: [id number] Report To 1 Name: , Report To 1 FAX: NextGen Order #: us Lillian Avila MD IMG MAMMO PROCEDURES Final Res ult documented in this encounter Visit Diagnoses Not on filedocumented in this encounter Care Teams Bed Laborer Relationship Specialty Start Date End Date Lillian Avila MD [address] [address] PCP - General 08/12/16 12/30/20 documented as of this encounter
--- OUTSIDE RECORDS SUMMARY | 2024-03-14 00:02 | XMS_ITS | Encounter Summary ---
Author Organization [facility] Facility Care Team Providers Care Medical Office Technologist Name Role Phone Unavailable Primary Care Provider Unavailabl e Encounter Details Date Type Department Care Team (Late st Contact Info) Description 03/08/2016 11:24 AM SAP ABAP DEVELOPER - 03/08/2016 11:59 PM SAP ABAP DEVELOPER Hospital Encounter [facility] Cassius Cummings MD [address] [address] [place] Social History Tobacco Use Types Packs/Day Years Used Date Smoking Tobacco: Never Assessed Comments Unknown Sex and Gender Information Value Date Recorded Sex Assigned at Not on file Legal Sex Female 11:30 PM SAP ABAP DEVELOPER Gender Identity Female 06/15/2023 1:45 PM [...] LATERAL 2 VIEWS Routine 03/08/2016 12:17 PM SAP ABAP DEVELOPER documented in this encounter Results * XR Chest Pa Lateral 2 Views (03/08/2016 12:17 PM SAP ABAP DEVELOPER) Anatomical Region Laterality Modality Body, Chest N/A Radiographic Karla ging 03/08/2016 12:1 7 PM SAP ABAP DEVELOPER Narrative 03/08/2016 12:32 PM SAP ABAP DEVELOPER ULISES NOLAN M.D. FINAL REPORT ACC# ??Date Time ??Exam [id number] Mar 08, 2016 12:17:00 [id number] Chest 2 views Frontl & Lat EXAMINATION: [...] M.D. FINAL REPORT ACC# Date Time Exam [id number] Mar 08, 2016 12:17:00 [id number] Chest 2 views Frontl & Lat EXAMINATION: [...]
--- OUTSIDE RECORDS SUMMARY | 2024-03-14 00:02 | XMS_ITS | Encounter Summary ---
Author Organization [facility] Address [address] [place] [address] Care Team Providers Care Research Geneticist Name Role Phone Cassius Chambers MD Primary Care Provider [phone] Reason for Referral * Diagnostic Imaging (Routine) - Closed Specialty Diagnoses / Procedures Referred By Cata quintanilla Referred To Contact Diagnoses Encounter for screening mammogram for malignant neoplasm of breast Procedures Screening Mammogram Right W Sourav Unilateral Only Cassius Chambers MD Phone: tel: fax: [address] [phone] Referral ID Status Reason Start Date Expiration Date Visits Re quested Visits Authorized [id number] Closed 03/09/2018 09/18/2019 1 1 BUSINESS PROFESSOR Reason for Visit * Diagnostic Imaging (Routine) - Closed Specialty Diagnoses / Procedures Referred By Cata quintanilla Referred To Contact Diagnoses Encounter for screening mammogram for malignant neoplasm of breast Procedures Screening Mammogram Right W Sourav Unilateral Only Cassius Chambers MD Phone: tel: fax: [address] [phone] Referral ID Status Reason Start Date Expiration Date Visits Re quested Visits Authorized [id number] Closed 03/09/2018 09/18/2019 1 1 Encounter Details Date Type Department Care Team (Latest Contact Info) Description 04/03/2018 7:50 AM AGRIBUSINESS PROFESSOR - 04/03/2018 11:59 PM AGRIBUSINESS PROFESSOR Hospital Encounter [facility] [address] [place] [address] Cassius Chambers MD [address] [facility] [address] [place] [address] Encounter for screening mammogram for malignant neoplasm of breast Discharge Disposition: Discharge to home or self care Social History Tobacco Use Types Packs/Day Years Used Date Smoking Tobacco: Never Smokeless Tobacco: Never Comments Unknown Sex and Gender Information Value Date Recorded Sex Assigned at Not on file Legal Sex Female 11:30 PM AGRIBUSINESS PROFESSOR Gender Identity Female 06/15/2023 1:45 PM CDT [...] Read Routine (OP Routine) 04/03/2018 8:21 AM AGRIBUSINESS PROFESSOR Encounter for screening mammogram for malignant neoplasm of breast documented in this encounter Results * Screening Mammogram Right W Sourav Unilateral Only (04/03/2018 8:21 AM AGRIBUSINESS PROFESSOR) Anatomical Region Laterality Modality Breast Right Mammography Narrative 04/06/2018 9:05 AM AGRIBUSINESS PROFESSOR Mammogram Technique: Right Breast Digital Breast Tomosynthesis, Unilateral C-view 2D Screening mammogram. ??Views obtained: ??right craniocaudal and right mediolateral oblique. ??Computer Aided Detection was performed. Mammogram Findings: The present examination has been compared to prior imaging studies performed at [facility] on 05/08/2014, 10/27/2015 and 12/06/2016. There are [...] compared to prior imaging studies performed at [facility] on 05/08/2014, 10/27/2015 and 12/06/2016. There are [...] breast documented in this encounter Care Teams Research Geneticist Relationship Specialty Start Date End Date Cassius Chambers MD [address] [address] PCP - General 08/12/16 12/30/20 documented as of this encounter
--- OUTSIDE RECORDS SUMMARY | 2024-03-14 00:02 | XMS_ITS | Encounter Summary ---
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; Acute pulmonary insufficiency following nonthoracic surgery (CMS/HCC); Other secondary pulmonary hypertension (CMS/HCC); Acute posthemorrhagic anemia; Type 2 diabetes mellitus without complications (CMS/HCC); Essential (primary) hypertension; Personal history of malignant neoplasm of breast; Hyperlipidemia; 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; Other acute postprocedural pain; senior care current use of insulin (CMS/HCC); Overweight; Body mass index (BMI) of 28.0-28.9 in adult; Heart disease Social History Tobacco Use Types Packs/Day Years Used Date Smoking Tobacco: Never Assessed Comments Unknown Sex and Gender Information Value Date Recorded Sex Assigned at Not on file Legal Sex Female 11:30 PM MELTER LOADER Gender Identity Female 06/15/2023 1:45 PM CDT Sexual Orientation Straight 06/15/2023 1: 45 PM CDT documented as of this encounter Last Filed Vital Signs Vital Sign Reading Time Taken Comments Blood Pressure 108/43 01/15/2015 1:54 PM MELTER LOADER Pulse 72 01/15/2015 1:54 PM MELTER LOADER Temperature - - Respiratory Rate - - Oxygen Saturation 98% 01/15/2015 1:54 PM MELTER LOADER Inhaled Oxygen Concentration - - Weight 69 kg (152 lb 1.5 oz) 01/15/2015 1:00 AM MELTER LOADER Height 154.9 cm (5' 1 ) 01/07/2015 1:15 PM MELTER LOADER Body Mass Index 28.74 01/07/2015 1:15 PM MELTER LOADER documented in this encounter Medications at Time of Discharge furosemide (LASIX) 40 mg tablet Take 1 tablet by mouth daily 12/30/2014 11/17/2018 potassium chloride ER (potassium chloride ER) 20 mEq CR tablet take 1 tablet daily 12/30/2014 07/31/2018 documented as of this encounter Miscellaneous Notes * Op Note - Provider, MD Edward - 01/07/2015 12:00 AM CST Patient: YULIANA SINGH Reg No: [id number] [facility] #: [id number] Admit Dt.: 01/07/2015 : 1940 Pt Type: IN Room No: 83288-60 Attending: Bo Cuellar M.D. Surgeon: Bo Cuellar M.D. Dictating: Bo Cuellar M.D. Service Dt: 01/07/2015 OPERATIVE REPORT FIRST 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 DESIGN ENGINEER: Dr. Charly Herrera PREOPERATIVE DIAGNOSIS (ES): Mitral [...] entire procedure. Dr. Herrera functioned as the pier master assistant as there was no qualified resident available. Total cross clamp time was 1 hours and 20 minutes. Total pump time was 2 hours and 1 minute. Electronically Authenticated and Edited by: Bo Cuellar MD On 01/16/2015 05:45 PM MELTER LOADER Bo Cuellar M.D. [facility]: #[id number] Editing MT: TD: 01/09/2015 08:27 AM cc: Bo Cuellar M.D. documented in this encounter Plan of Treatment Not on file documented as of this encounter Procedures Procedure Name Priority Date/Time Associated Diagnosis Comments BLOOD GLUCOSE, POC Routine 01/15/2015 11 :47 AM MELTER LOADER BLOOD GLUCOSE, POC Routine 01/15/2015 6: 46 AM MELTER LOADER DISCHARGE LABORATORY CUMULATIVE REPORT 01/15/2015 PLASMA COMPREHENSIVE METABOLIC PANEL Routine 01/14/2015 9:36 PM MELTER LOADER BLOOD B-TYPE NATRIURETIC PEPTIDE (BNP) Routine 01/14/2015 9:36 PM MELTER LOADER BLOOD CELL COUNT (CBC) Routine 5 9:36 PM MELTER LOADER BLOOD GLUCOSE, POC Routine 01/14/2015 8: 36 PM MELTER LOADER BLOOD GLUCOSE, POC Routine 01/14/2015 5: 07 PM MELTER LOADER BLOOD GLUCOSE, POC Routine 01/14/2015 11 :31 AM MELTER LOADER BLOOD GLUCOSE, POC Routine 01/14/2015 7: 27 AM MELTER LOADER PLASMA BASIC METABOLIC PANEL Routine 01/13/2015 11:01 PM MELTER LOADER BLOOD CELL COUNT (CBC) Routine 5 11:01 PM MELTER LOADER BLOOD GLUCOSE, POC Routine 01/13/2015 8: 54 PM MELTER LOADER BLOOD GLUCOSE, POC Routine 01/13/2015 5: 05 PM MELTER LOADER BLOOD GLUCOSE, POC Routine 01/13/2015 12 :03 PM MELTER LOADER CHEST RADIOGRAPHY, FRONTAL (AP), LATERAL Routine 01/13/2015 11:37 AM MELTER LOADER BLOOD GLUCOSE, POC Routine 01/13/2015 7: 29 AM MELTER LOADER PLASMA BASIC METABOLIC PANEL Routine 01/12/2015 11:40 PM MELTER LOADER BLOOD CELL COUNT Routine 01/12/2015 11:4 0 PM MELTER LOADER BLOOD GLUCOSE, POC Routine 01/12/2015 8: 54 PM MELTER LOADER BLOOD GLUCOSE, POC Routine 01/12/2015 4: 59 PM MELTER LOADER BLOOD GLUCOSE, POC Routine 01/12/2015 11 :28 AM MELTER LOADER BLOOD GLUCOSE, POC Routine 01/12/2015 7: 25 AM MELTER LOADER PLASMA COMPREHENSIVE METABOLIC PANEL Routine 01/11/2015 11:44 PM MELTER LOADER BLOOD CELL COUNT Routine 01/11/2015 11:4 4 PM MELTER LOADER BLOOD GLUCOSE, POC Routine 01/11/2015 8: 32 PM MELTER LOADER BLOOD GLUCOSE, POC Routine 01/11/2015 4: 47 PM MELTER LOADER BLOOD GLUCOSE, POC Routine 01/11/2015 11 :16 AM MELTER LOADER BLOOD GLUCOSE, POC Routine 01/11/2015 6: 50 AM MELTER LOADER PLASMA BASIC METABOLIC PANEL Routine 01/10/2015 9:49 PM MELTER LOADER BLOOD B-TYPE NATRIURETIC PEPTIDE (BNP) Routine 01/10/2015 9:49 PM MELTER LOADER BLOOD CELL COUNT (CBC) Routine 5 9:49 PM MELTER LOADER BLOOD GLUCOSE, POC Routine 01/10/2015 9: 35 PM MELTER LOADER BLOOD GLUCOSE, POC Routine 01/10/2015 4: 59 PM MELTER LOADER CHEST RADIOGRAPHY, FRONTAL (AP), LATERAL Routine 01/10/2015 2:50 PM MELTER LOADER BLOOD GLUCOSE, POC Routine 01/10/2015 11 :38 AM MELTER LOADER BLOOD GLUCOSE, POC Routine 01/10/2015 7: 11 AM MELTER LOADER SERUM MAGNESIUM Routine 01/09/2015 10:57 PM MELTER LOADER PLASMA PHOSPHORUS Routine 01/09/2015 10: 57 PM MELTER LOADER PLASMA BASIC METABOLIC PANEL Routine 01/09/2015 10:57 PM MELTER LOADER BLOOD CELL COUNT Routine 01/09/2015 10:5 7 PM MELTER LOADER BLOOD GLUCOSE, POC Routine 01/09/2015 10 :47 PM MELTER LOADER BLOOD GLUCOSE, POC Routine 01/09/2015 4: 51 PM MELTER LOADER MRSA SURVEILLANCE CULTURE, CDR Routine 01/09/2015 2:46 PM MELTER LOADER BLOOD HEMOGLOBIN SATURATION Routine 01/09/2015 2:17 PM MELTER LOADER BLOOD GLUCOSE, POC Routine 01/09/2015 12 :28 PM MELTER LOADER PLASMA BASIC METABOLIC PANEL Routine 01/09/2015 9:29 AM MELTER LOADER BLOOD POTASSIUM, MIXED VENOUS Routine 01/09/2015 9:29 AM MELTER LOADER BLOOD GLUCOSE, POC Routine 01/09/2015 7: 48 AM MELTER LOADER BLOOD POTASSIUM, MIXED VENOUS Routine 01/09/2015 6:09 AM MELTER LOADER BLOOD HEMOGLOBIN SATURATION, MIXED VENOUS Routine 01/09/2015 6:09 AM MELTER LOADER BLOOD GLUCOSE, POC Routine 01/09/2015 3: 31 AM MELTER LOADER BLOOD HEMOGLOBIN SATURATION, MIXED VENOUS Routine 01/09/2015 3:30 AM MELTER LOADER BLOOD ANTIBODY IDENTIFICATION Routine 01/09/2015 3:18 AM MELTER LOADER BLOOD E ANTIGEN TYPE Routine 01/09/2015 12:37 AM MELTER LOADER BLOOD DIRECT ANTIGLOBULIN TEST Routine 01/09/2015 12:37 AM MELTER LOADER BLOOD ABO, RH, INDIRECT AB SCREEN Routine 01/09/2015 12:37 AM MELTER LOADER BLOOD GLUCOSE, POC Routine 01/09/2015 12 :33 AM MELTER LOADER ELECTROCARDIOGRAPHY (ECG) 01/09/2015 ELECTROCARDIOGRAPHY (ECG) 01/09/2015 ELECTROCARDIOGRAPHY (ECG) 01/09/2015 ALL MICROBIOLOGY REPORT SECTION Routine 01/09/2015 12:00 AM MELTER LOADER BLOOD HEMOGLOBIN SATURATION, MIXED VENOUS Routine 01/08/2015 9:56 PM MELTER LOADER XR CHEST 1 VIEW Routine 01/08/2015 9:30 PM MELTER LOADER BLOOD GAS, ARTERIAL Routine 01/08/2015 8 :15 PM MELTER LOADER BLOOD GLUCOSE, POC Routine 01/08/2015 7: 46 PM MELTER LOADER SERUM MAGNESIUM Routine 01/08/2015 7:37 PM MELTER LOADER PLASMA PHOSPHORUS Routine 01/08/2015 7:3 7 PM MELTER LOADER PLASMA BASIC METABOLIC PANEL Routine 01/08/2015 7:37 PM MELTER LOADER BLOOD CELL COUNT Routine 01/08/2015 7:37 PM MELTER LOADER BLOOD GLUCOSE, POC Routine 01/08/2015 5: 47 PM MELTER LOADER BLOOD HEMOGLOBIN SATURATION Routine 01/08/2015 1:51 PM MELTER LOADER BLOOD GLUCOSE, POC Routine 01/08/2015 12 :27 PM MELTER LOADER PLASMA BASIC METABOLIC PANEL Routine 01/08/2015 12:24 PM MELTER LOADER BLOOD LACTIC ACID Routine 01/08/2015 9:4 8 AM MELTER LOADER BLOOD GLUCOSE, POC Routine 01/08/2015 7: 51 AM MELTER LOADER BLOOD GAS, ARTERIAL Routine 01/08/2015 7 :46 AM MELTER LOADER SERUM LIPID PANEL Routine 01/08/2015 5:0 6 AM MELTER LOADER PLASMA BASIC METABOLIC PANEL Routine 01/08/2015 5:06 AM MELTER LOADER BLOOD HEMOGLOBIN SATURATION, MIXED VENOUS Routine 01/08/2015 5:06 AM MELTER LOADER BLOOD HEMOGLOBIN A1C Routine 01/08/2015 5:06 AM MELTER LOADER BLOOD CELL COUNT (CBC) Routine 5 5:06 AM MELTER LOADER BLOOD GLUCOSE, POC Routine 01/08/2015 5: 01 AM MELTER LOADER BLOOD GLUCOSE, POC Routine 01/08/2015 4: 20 AM MELTER LOADER XR CHEST 1 VIEW Routine 01/08/2015 3:34 AM MELTER LOADER BLOOD GLUCOSE, POC Routine 01/08/2015 3: 07 AM MELTER LOADER BLOOD GLUCOSE, POC Routine 01/08/2015 1: 46 AM MELTER LOADER BLOOD GLUCOSE, POC Routine 01/08/2015 12 :55 AM MELTER LOADER BLOOD GLUCOSE, POC Routine 01/07/2015 11 :57 PM MELTER LOADER BLOOD GLUCOSE, POC Routine 01/07/2015 10 :57 PM MELTER LOADER SERUM MAGNESIUM Routine 01/07/2015 10:02 PM MELTER LOADER PLASMA PHOSPHORUS Routine 01/07/2015 10: 02 PM MELTER LOADER PLASMA BASIC METABOLIC PANEL Routine 01/07/2015 10:02 PM MELTER LOADER BLOOD CELL COUNT Routine 01/07/2015 10:0 2 PM MELTER LOADER BLOOD GLUCOSE, POC Routine 01/07/2015 10 :01 PM MELTER LOADER XR CHEST 1 VIEW Routine 01/07/2015 9:32 PM MELTER LOADER BLOOD GLUCOSE, POC Routine 01/07/2015 8: 51 PM MELTER LOADER BLOOD GLUCOSE, POC Routine 01/07/2015 8: 07 PM MELTER LOADER BLOOD HEMOGLOBIN SATURATION Routine 01/07/2015 6:05 PM MELTER LOADER BLOOD GLUCOSE, POC Routine 01/07/2015 5: 56 PM MELTER LOADER BLOOD HEMOGLOBIN SATURATION, MIXED VENOUS Routine 01/07/2015 5:55 PM MELTER LOADER BLOOD HEMOGLOBIN SATURATION Routine 01/07/2015 5:55 PM MELTER LOADER BLOOD GAS, ARTERIAL Routine 01/07/2015 5 :55 PM MELTER LOADER BLOOD GLUCOSE, POC Routine 01/07/2015 4: 59 PM MELTER LOADER BLOOD GAS, ARTERIAL Routine 01/07/2015 4 :55 PM MELTER LOADER BLOOD GLUCOSE, POC Routine 01/07/2015 4: 15 PM MELTER LOADER BLOOD GAS, ARTERIAL Routine 01/07/2015 3 :50 PM MELTER LOADER BLOOD GLUCOSE, POC Routine 01/07/2015 3: 05 PM MELTER LOADER BLOOD GLUCOSE, POC Routine 01/07/2015 2: 26 PM MELTER LOADER XR CHEST 1 VIEW Routine 01/07/2015 2:08 PM MELTER LOADER BLOOD HEMOGLOBIN SATURATION, MIXED VENOUS Routine 01/07/2015 1:33 PM MELTER LOADER BLOOD GLUCOSE, POC Routine 01/07/2015 1: 21 PM MELTER LOADER BLOOD GAS, POINT OF CARE, ARTERIAL Routine 01/07/2015 12:26 PM MELTER LOADER BLOOD PLATELET, HEMATOCRIT POINT OF CARE Routine 01/07/2015 11:50 AM MELTER LOADER BLOOD GAS, POINT OF CARE, ARTERIAL Routine 01/07/2015 11:50 AM MELTER LOADER BLOOD HEPARIN/ACTIVATED CLOTTING TIME (ACT) Routine 01/07/2015 11:45 AM MELTER LOADER BLOOD HEPARIN/ACTIVATED CLOTTING TIME (ACT) Routine 01/07/2015 11:03 AM MELTER LOADER BLOOD GAS, POINT OF CARE, ARTERIAL Routine 01/07/2015 10:36 AM MELTER LOADER BLOOD HEPARIN/ACTIVATED CLOTTING TIME (ACT) Routine 01/07/2015 10:30 AM MELTER LOADER BLOOD HEPARIN/ACTIVATED CLOTTING TIME (ACT) Routine 01/07/2015 10:05 AM MELTER LOADER BLOOD GAS, POINT OF CARE, ARTERIAL Routine 01/07/2015 9:41 AM MELTER LOADER BLOOD HEPARIN/ACTIVATED CLOTTING TIME (ACT) Routine 01/07/2015 9:35 AM MELTER LOADER BLOOD HEPARIN/ACTIVATED CLOTTING TIME (ACT) Routine 01/07/2015 9:13 AM MELTER LOADER BLOOD GAS, POINT OF CARE, ARTERIAL Routine 01/07/2015 8:10 AM MELTER LOADER BLOOD HEPARIN DOSE RESPONSE Routine 01/07/2015 8:03 AM MELTER LOADER BLOOD GLUCOSE, POC Routine 01/07/2015 6: 38 AM MELTER LOADER SURGICAL PATHOLOGY 01/07/2015 BLOOD ABO, RH, INDIRECT AB SCREEN Routine 01/06/2015 1:44 PM MELTER LOADER documented in this encounter Results * Blood glucose, POC (01/15/2015 11:47 AM MELTER LOADER) Glucose, POC, bld 173 70 - 199 mg/dl HISTORICAL RESULTS Blood specimen (specimen) 01/15/2015 11:47 AM MELTER LOADER Bo Cuellar MD LAB BLOOD ORDERABLES Final Re sult Performing Organization Address City/[facility] Co de Phone Number HISTORICAL RESULTS * Blood glucose, POC (01/15/2015 6:46 AM MELTER LOADER) Glucose, POC, bld 144 70 - 199 mg/dl HISTORICAL RESULTS Blood specimen (specimen) 01/15/2015 6:46 AM MELTER LOADER Bo Cuellar MD LAB BLOOD ORDERABLES Final Re sult HISTORICAL RESULTS * DISCHARGE LABORATORY CUMULATIVE REPORT (01/15/2015) Narrative 01/15/2015 Ordered by an unspecified provider. Historical Provider LAB BLOOD ORDERABLES Miranda l Result * (ABNORMAL) Plasma comprehensive metabolic panel (01/14/2015 9:36 PM MELTER LOADER) Sodium 133(L) 135 - 145 mmol/L HISTORICAL [...] Units/L HISTORICAL RESULTS Plasma 01/14/2015 9:36 PM MELTER LOADER Historical Provider LAB BLOOD ORDERABLES Miranda l Result HISTORICAL RESULTS * (ABNORMAL) Blood cell count (CBC) (01/14/2015 9:36 PM MELTER LOADER) WBC 8.9 3.8 - 9.8 K/cumm HISTORICAL [...] RESULTS Blood specimen (specimen) 01/14/2015 9:36 PM MELTER LOADER [facility] Provider LAB BLOOD ORDERABLES Miranda l Result HISTORICAL RESULTS * (ABNORMAL) Blood B-type natriuretic peptide (BNP) (01/14/2015 9:36 PM MELTER LOADER) Pathologist [facility] [place] BNP 342(H) 0 - 100 pg/ml HISTORICAL RESULTS Blood specimen (specimen) 01/14/2015 9:36 PM MELTER LOADER Bo Cuellar MD LAB BLOOD ORDERABLES Final Re sult HISTORICAL RESULTS * (ABNORMAL) Blood glucose, POC (01/14/2015 8:36 PM MELTER LOADER) Glucose, POC, bld 244(H) 70 - 199 mg/dl HISTORICAL RESULTS Blood specimen (specimen) 01/14/2015 8:36 PM MELTER LOADER Bo Cuellar MD LAB BLOOD ORDERABLES Final Re sult Performing Organization Address [facility] Phone Number HISTORICAL RESULTS * Blood glucose, POC (01/14/2015 5:07 PM MELTER LOADER) Glucose, POC, bld 137 70 - 199 mg/dl HISTORICAL RESULTS Blood specimen (specimen) 01/14/2015 5:07 PM MELTER LOADER Bo Cuellar MD LAB BLOOD ORDERABLES Final Re sult Performing Organization Address [facility] de Phone Number HISTORICAL RESULTS * (ABNORMAL) Blood glucose, POC (01/14/2015 11:31 AM MELTER LOADER) Pathologist [facility] [place] Glucose, POC, bld 223(H) 70 - 199 mg/dl HISTORICAL RESULTS Blood specimen (specimen) 01/14/2015 11:31 AM MELTER LOADER Bo Cuellar MD LAB BLOOD ORDERABLES Final Re sult Performing Organization Address [facility] Phone Number HISTORICAL RESULTS * Blood glucose, POC (01/14/2015 7:27 AM MELTER LOADER) Glucose, POC, bld 145 70 - 199 mg/dl HISTORICAL RESULTS Blood specimen (specimen) 01/14/2015 7:27 AM MELTER LOADER Bo Cuellar MD LAB BLOOD ORDERABLES Final Re sult Performing Organization Address [facility] de Phone Number HISTORICAL RESULTS * Plasma basic metabolic panel (01/13/2015 11:01 PM MELTER LOADER) Sodium 135 135 - 145 mmol/L HISTORICAL [...] HISTORICAL RESULTS Plasma 01/13/2015 11:0 1 PM MELTER LOADER Historical Provider LAB BLOOD ORDERABLES Miranda sheldon Result HISTORICAL RESULTS * (ABNORMAL) Blood cell count (CBC) (01/13/2015 11:01 PM MELTER LOADER) WBC 8.2 3.8 - 9.8 K/cumm HISTORICAL [...] RESULTS Blood specimen (specimen) 01/13/2015 11:01 PM MELTER LOADER Historical Provider LAB BLOOD ORDERABLES Miranda sheldon Result HISTORICAL RESULTS * Blood glucose, POC (01/13/2015 8:54 PM MELTER LOADER) Glucose, POC, bld 195 70 - 199 mg/dl HISTORICAL RESULTS Blood specimen (specimen) 01/13/2015 8:54 PM MELTER LOADER Bo Cuellar MD LAB BLOOD ORDERABLES Final Re sult Performing Organization Address [facility] de Phone Number HISTORICAL RESULTS * Blood glucose, POC (01/13/2015 5:05 PM MELTER LOADER) Glucose, POC, bld 129 70 - 199 mg/dl HISTORICAL RESULTS Blood specimen (specimen) 01/13/2015 5:05 PM MELTER LOADER Bo Cuellar MD LAB BLOOD ORDERABLES Final Re sult Performing Organization Address [facility] Phone Number HISTORICAL RESULTS * (ABNORMAL) Blood glucose, POC (01/13/2015 12:03 PM MELTER LOADER) Glucose, POC, bld 205(H) 70 - 199 mg/dl HISTORICAL RESULTS Blood specimen (specimen) 01/13/2015 12:03 PM MELTER LOADER Bo Cuellar MD LAB BLOOD ORDERABLES Final Re sult Performing Organization Address [facility] de Phone Number HISTORICAL RESULTS * CHEST RADIOGRAPHY, FRONTAL (AP), LATERAL (01/13/2015 11:37 AM MELTER LOADER) Anatomical Region Laterality Modality N/A Radiographic Karla ging 01/13/2015 11:3 7 AM MELTER LOADER Narrative 01/13/2015 4:25 PM MELTER LOADER CAROLYNN DUKE M.D. FINAL REPORT ACC# ??Date Time ??Exam [id number] Jan 13, 2015 11:37:00 [id number] Chest 2 views Front&Lat EXAMINATION: ?CHEST, TWO [...] DUKE M.D. on Jan 13 2015 ??4:25P [id number] Procedure Note Provider, Edward, - 06/22/2016 CAROLYNN DUKE M.D. FINAL REPORT ACC# Date Time Exam [id number] Jan 13, 2015 11:37:00 01804 Chest 2 views Front&Lat EXAMINATION: CHEST, TWO [...] DUKE M.D. on Jan 13 2015 4:25P [id number] us Historical Provider IMAngel XR PROCEDURES Final R esult * Blood glucose, POC (01/13/2015 7:29 AM MELTER LOADER) Glucose, POC, bld 136 70 - 199 mg/dl HISTORICAL RESULTS Blood specimen (specimen) 01/13/2015 7:29 AM MELTER LOADER Bo Cuellar MD LAB BLOOD ORDERABLES Final Re sult Performing Organization Address City/[facility] Co de Phone Number HISTORICAL RESULTS * (ABNORMAL) Plasma basic metabolic panel (01/12/2015 11:40 PM MELTER LOADER) Sodium 136 135 - 145 mmol/L HISTORICAL [...] HISTORICAL RESULTS Plasma 01/12/2015 11:4 0 PM MELTER LOADER Angela Bledsoe NP LAB BLOOD ORDERABLES Final Result Performing Organization Address [facility] de Phone Number HISTORICAL RESULTS * (ABNORMAL) Blood cell count [CBC] express (01/12/2015 11:40 PM MELTER LOADER) WBC 8.3 3.8 - 9.8 K/cumm HISTORICAL [...] RESULTS Blood specimen (specimen) 01/12/2015 11:40 PM MELTER LOADER Angela Bledsoe G[employer]IN REMOVER LAB BLOOD ORDERABLES Final Result Performing Organization Address [facility] Phone Number HISTORICAL RESULTS * (ABNORMAL) Blood glucose, POC (01/12/2015 8:54 PM MELTER LOADER) Glucose, POC, bld 289(H) 70 - 199 mg/dl HISTORICAL RESULTS Blood specimen (specimen) 01/12/2015 8:54 PM MELTER LOADER Bo Cuellar MD LAB BLOOD ORDERABLES Final Re sult Performing Organization Address [facility] de Phone Number HISTORICAL RESULTS * Blood glucose, POC (01/12/2015 4:59 PM MELTER LOADER) Glucose, POC, bld 153 70 - 199 mg/dl HISTORICAL RESULTS Blood specimen (specimen) 01/12/2015 4:59 PM MELTER LOADER Bo Cuellar MD LAB BLOOD ORDERABLES Final Re sult Performing Organization Address [facility] Phone Number HISTORICAL RESULTS * Blood glucose, POC (01/12/2015 11:28 AM MELTER LOADER) Glucose, POC, bld 190 70 - 199 mg/dl HISTORICAL RESULTS Blood specimen (specimen) 01/12/2015 11:28 AM MELTER LOADER Bo Cuellar MD LAB BLOOD ORDERABLES Final Re sult Performing Organization Address [facility] de Phone Number HISTORICAL RESULTS * Blood glucose, POC (01/12/2015 7:25 AM MELTER LOADER) Glucose, POC, bld 127 70 - 199 mg/dl HISTORICAL RESULTS Blood specimen (specimen) 01/12/2015 7:25 AM MELTER LOADER Bo Cuellar MD LAB BLOOD ORDERABLES Final Re sult Performing Organization Address [facility] de Phone Number HISTORICAL RESULTS * (ABNORMAL) Plasma comprehensive metabolic panel (01/11/2015 11:44 PM MELTER LOADER) Sodium 136 135 - 145 mmol/L HISTORICAL [...] HISTORICAL RESULTS Plasma 01/11/2015 11:4 4 PM MELTER LOADER Angela Bledsoe [employer] LAB BLOOD ORDERABLES Final Result HISTORICAL RESULTS * (ABNORMAL) Blood cell count [CBC] express (01/11/2015 11:44 PM MELTER LOADER) Pathologist [facility] [place] WBC 10.3(H) 3.8 - 9.8 K/cumm HISTORICAL [...] RESULTS Blood specimen (specimen) 01/11/2015 11:44 PM MELTER LOADER Angela Bledsoe NP LAB BLOOD ORDERABLES Final Result Performing Organization Address [facility] de Phone Number HISTORICAL RESULTS * Blood glucose, POC (01/11/2015 8:32 PM MELTER LOADER) Glucose, POC, bld 170 70 - 199 mg/dl HISTORICAL RESULTS Blood specimen (specimen) 01/11/2015 8:32 PM MELTER LOADER Bo Cuellar MD LAB BLOOD ORDERABLES Final Re sult Performing Organization Address [facility] de Phone Number HISTORICAL RESULTS * Blood glucose, POC (01/11/2015 4:47 PM MELTER LOADER) Glucose, POC, bld 158 70 - 199 mg/dl HISTORICAL RESULTS Blood specimen (specimen) 01/11/2015 4:47 PM MELTER LOADER Bo Cuellar MD LAB BLOOD ORDERABLES Final Re sult Performing Organization Address [facility] de Phone Number HISTORICAL RESULTS * Blood glucose, POC (01/11/2015 11:16 AM MELTER LOADER) Glucose, POC, bld 173 70 - 199 mg/dl HISTORICAL RESULTS Blood specimen (specimen) 01/11/2015 11:16 AM MELTER LOADER Bo Cuellar MD LAB BLOOD ORDERABLES Final Re sult Performing Organization Address [facility] de Phone Number HISTORICAL RESULTS * Blood glucose, POC (01/11/2015 6:50 AM MELTER LOADER) Glucose, POC, bld 126 70 - 199 mg/dl HISTORICAL RESULTS Blood specimen (specimen) 01/11/2015 6:50 AM MELTER LOADER Bo Cuellar MD LAB BLOOD ORDERABLES Final Re sult Performing Organization Address [facility]/ZIP Co de Phone Number HISTORICAL RESULTS * Plasma basic metabolic panel (01/10/2015 9:49 PM MELTER LOADER) Sodium 138 135 - 145 mmol/L HISTORICAL [...] mg/dl HISTORICAL RESULTS Plasma 01/10/2015 9:49 PM MELTER LOADER Camille Fernandez [facility] LAB BLOOD ORDERABLES Miranda sheldon Result HISTORICAL RESULTS * (ABNORMAL) Blood cell count (CBC) (01/10/2015 9:49 PM MELTER LOADER) Pathologist [facility] [place] WBC 10.1(H) 3.8 - 9.8 K/cumm HISTORICAL [...] RESULTS Blood specimen (specimen) 01/10/2015 9:49 PM MELTER LOADER Camille Fernandez [facility] [employer] LAB BLOOD ORDERABLES Miranda l Result Performing Organization Address [facility] de Phone Number HISTORICAL RESULTS * (ABNORMAL) Blood B-type natriuretic peptide (BNP) (01/10/2015 9:49 PM MELTER LOADER) BNP 301(H) 0 - 100 pg/ml HISTORICAL RESULTS Blood specimen (specimen) 01/10/2015 9:49 PM MELTER LOADER Camille Fernandez [facility] [employer] LAB BLOOD ORDERABLES Miranda l Result Performing Organization Address [facility] de Phone Number HISTORICAL RESULTS * Blood glucose, POC (01/10/2015 9:35 PM MELTER LOADER) Glucose, POC, bld 198 70 - 199 mg/dl HISTORICAL RESULTS Blood specimen (specimen) 01/10/2015 9:35 PM MELTER LOADER Bo Cuellar MD LAB BLOOD ORDERABLES Final Re sult Performing Organization Address [facility] de Phone Number HISTORICAL RESULTS * Blood glucose, POC (01/10/2015 4:59 PM MELTER LOADER) Glucose, POC, bld 124 70 - 199 mg/dl HISTORICAL RESULTS Blood specimen (specimen) 01/10/2015 4:59 PM MELTER LOADER Bo Cuellar MD LAB BLOOD ORDERABLES Final Re sult Performing Organization Address [facility] de Phone Number HISTORICAL RESULTS * CHEST RADIOGRAPHY, FRONTAL (AP), LATERAL (01/10/2015 2:50 PM MELTER LOADER) Anatomical Region Laterality Modality N/A Radiographic Karla ging 01/10/2015 2:50 PM MELTER LO[employer]ER Narrative 01/10/2015 7:47 PM [employer] LO[employer] Bryan DAHL M.D. FINAL REPORT The radiology attending physician has personally reviewed this study, and has reviewed and/or edited this written report and agrees with it. ACC# ??Date Time ??Exam [id number] Jan 10, 2015 14:50:00 [id number] Chest 2 views Front&Lat EXAMINATION: ?? Chest [...] DUKE M.D. on Jan 10 2015 ??7:47P [id number] Procedure Note Provider, MD Edward - 06/22/2016 Bryan DAHL M.D. FINAL REPORT The radiology attending physician has personally reviewed this study, and has reviewed and/or edited this written report and agrees with it. ACC# Date Time Exam [id number] Jan 10, 2015 14:50:00 [id number] Chest 2 views Front&Lat EXAMINATION: Chest 2 [...] DUKE M.D. on Jan 10 2015 7:47P [id number] Historical Provider IMG XR PROCEDURES Final R esult * Blood glucose, POC (01/10/2015 11:38 AM MELTER LOADER) Glucose, POC, bld 197 70 - 199 mg/dl HISTORICAL RESULTS Blood specimen (specimen) 01/10/2015 11:38 AM MELTER LOADER Bo Cuellar MD LAB BLOOD ORDERABLES Final Re sult Performing Organization Address [facility] de Phone Number HISTORICAL RESULTS * Blood glucose, POC (01/10/2015 7:11 AM MELTER LOADER) Glucose, POC, bld 101 70 - 199 mg/dl HISTORICAL RESULTS Blood specimen (specimen) 01/10/2015 7:11 AM MELTER LOADER Bo Cuellar MD LAB BLOOD ORDERABLES Final Re sult Performing Organization Address City/[facility] Co de Phone Number HISTORICAL RESULTS * (ABNORMAL) Plasma basic metabolic panel (01/09/2015 10:57 PM MELTER LOADER) Sodium 140 135 - 145 mmol/L HISTORICAL [...] HISTORICAL RESULTS Plasma 01/09/2015 10:5 7 PM MELTER LOADER Historical Provider LAB BLOOD ORDERABLES Miranda l Result Performing Organization Address [facility] de Phone Number HISTORICAL RESULTS * (ABNORMAL) Plasma phosphorus (01/09/2015 10:57 PM MELTER LOADER) Phosphorus, pl 1.8(L) 2.3 - 4.3 mg/dl HISTORICAL RESULTS Plasma 01/09/2015 10:5 7 PM MELTER LOADER Result [facility] Historical Provider LAB BLOOD ORDERABLES Miranda l Result Performing Organization Address [facility] de Phone Number HISTORICAL RESULTS * Serum magnesium (01/09/2015 10:57 PM MELTER LOADER) Magnesium 2.1 1.4 - 2.5 mg/dl HISTORICAL RESULTS Serum 01/09/2015 10:5 7 PM MELTER LOADER Result [facility] Historical Provider LAB BLOOD ORDERABLES Miranda l Result Performing Organization Address [facility] de Phone Number HISTORICAL RESULTS * (ABNORMAL) Blood cell count [CBC] express (01/09/2015 10:57 PM MELTER LOADER) WBC 10.5(H) 3.8 - 9.8 K/cumm HISTORICAL [...] RESULTS Blood specimen (specimen) 01/09/2015 10:57 PM MELTER LOADER Historical Provider LAB BLOOD ORDERABLES Miranda l Result Performing Organization Address [facility] de Phone Number HISTORICAL RESULTS * Blood glucose, POC (01/09/2015 10:47 PM MELTER LOADER) Glucose, POC, bld 122 70 - 199 mg/dl HISTORICAL RESULTS Blood specimen (specimen) 01/09/2015 10:47 PM MELTER LOADER Bo Cuellar MD LAB BLOOD ORDERABLES Final Re sult Performing Organization Address [facility] Phone Number HISTORICAL RESULTS * Blood glucose, POC (01/09/2015 4:51 PM MELTER LOADER) Glucose, POC, bld 137 70 - 199 mg/dl HISTORICAL RESULTS Blood specimen (specimen) 01/09/2015 4:51 PM MELTER LOADER Bo Cuellar MD LAB BLOOD ORDERABLES Final Re sult Performing Organization Address [facility] de Phone Number HISTORICAL RESULTS * Methicillin-resistant Staphylococcus aureus (MRSA) surveillance culture (01/09/2015 2:46 PM MELTER LOADER) Nasal (Unknown) 01/09/2015 2 :46 PM MELTER LOADER 01/09/2015 3:44 PM MELTER LOADER Impressions HISTORICAL RESULTS - 01/11/2015 9:13 AM MELTER LOADER This test is for Infection Prevention surveillance; no charge to the patient. Narrative HISTORICAL RESULTS - 01/11/2015 9:13 AM MELTER LOADER Negative Historical Provider LAB MICROBIOLOGY - GENERA L ORDERABLES Final Result Performing Organization Address [facility] de Phone Number HISTORICAL RESULTS * (ABNORMAL) Blood hemoglobin saturation (01/09/2015 2:17 PM MELTER LOADER) [facility] O2 content, venous 9 volume % O2 HISTORICAL RESULTS Hgb, central noris 9.8(L) 12.1 - 15.1 g/dl HISTORICAL RESULTS OxyHb, central noris 65.1 60.0 - 85.0 % HISTORICAL RESULTS COHb, central noris 1.6 0.0 - 2.9 % HISTORICAL RESULTS MetHb, central noris 0.7 0.0 - 1.9 % HISTORICAL RESULTS Blood specimen (specimen) 01/09/2015 2:17 PM MELTER LOADER Historical Provider LAB BLOOD ORDERABLES Miranda l Result Performing Organization Address [facility] Co de Phone Number HISTORICAL RESULTS * Blood glucose, POC (01/09/2015 12:28 PM MELTER LOADER) [facility] Glucose, POC, bld 161 70 - 199 mg/dl HISTORICAL RESULTS Blood specimen (specimen) 01/09/2015 12:28 PM MELTER LOADER Bo Cuellar MD LAB BLOOD ORDERABLES Final Re sult Performing Organization Address [facility] Co de Phone Number HISTORICAL RESULTS * Blood potassium, mixed venous (01/09/2015 9:29 AM MELTER LOADER) [facility] Potassium, bld 4.2 3.3 - 4.9 mmol/L HISTORICAL RESULTS Mixed venous blood 01/09/2015 9:29 AM MELTER LOADER Historical Provider LAB BLOOD ORDERABLES Miranda l Result Performing Organization Address [facility] Co de Phone Number HISTORICAL RESULTS * (ABNORMAL) Plasma basic metabolic panel (01/09/2015 9:29 AM MELTER LOADER) [facility] Sodium 136 135 - 145 mmol/L HISTORICAL [...] mg/dl HISTORICAL RESULTS Plasma 01/09/2015 9:29 AM MELTER LOADER Result [facility] Historical Provider LAB BLOOD ORDERABLES Miranda sheldon Result Performing Organization Address [facility] Co de Phone Number HISTORICAL RESULTS * Blood glucose, POC (01/09/2015 7:48 AM MELTER LOADER) Glucose, POC, bld 106 70 - 199 mg/dl HISTORICAL RESULTS Blood specimen (specimen) 01/09/2015 7:48 AM MELTER LOADER Result [facility] Bo Cuellar MD LAB BLOOD ORDERABLES Final Re sult Performing Organization Address [facility] de Phone Number HISTORICAL RESULTS * (ABNORMAL) Blood hemoglobin saturation, mixed venous (01/09/2015 6:09 AM MELTER LOADER) Hgb estimated, noris 9.5(L) 12.1 - 15.1 g/dl HISTORICAL RESULTS Oxyhb, noris 68.8 60.0 - 85.0 % HISTORICAL RESULTS Cohb, noris 1.4 0.0 - 2.9 % HISTORIC AL RESULTS MetHb, noris 1.2 0.0 - 1.9 % HISTORI PAOLA RESULTS O2 content, venous 9 volume % O2 HISTORICAL RESULTS Mixed venous blood 01/09/2015 6:09 AM MELTER LOADER Result [facility] Historical Provider LAB BLOOD ORDERABLES Miranda l Result Performing Organization Address [facility] Co de Phone Number HISTORICAL RESULTS * Blood potassium, mixed venous (01/09/2015 6:09 AM MELTER LOADER) Potassium, bld 3.6 3.3 - 4.9 mmol/L HISTORICAL RESULTS Mixed venous blood 01/09/2015 6:09 AM MELTER LOADER Result [facility] Historical Provider LAB BLOOD ORDERABLES Miranda l Result Performing Organization Address [facility] de Phone Number HISTORICAL RESULTS * Blood glucose, POC (01/09/2015 3:31 AM MELTER LOADER) Glucose, POC, bld 123 70 - 199 mg/dl HISTORICAL RESULTS Blood specimen (specimen) 01/09/2015 3:31 AM MELTER LOADER Bo Cuellar MD LAB BLOOD ORDERABLES Final Re sult Performing Organization Address [facility] de Phone Number HISTORICAL RESULTS * (ABNORMAL) Blood hemoglobin saturation, mixed venous (01/09/2015 3:30 AM MELTER LOADER) O2 content, venous 9 volume % O2 HISTORICAL RESULTS Hgb estimated, noris 9.4(L) 12.1 - 15.1 g/dl HISTORICAL RESULTS Oxyhb, noris 67.7 60.0 - 85.0 % HISTORICAL RESULTS Cohb, noris 1.5 0.0 - 2.9 % HISTORIC AL RESULTS MetHb, noris 1.1 0.0 - 1.9 % HISTORI PAOLA RESULTS Mixed venous blood 01/09/2015 3:30 AM MELTER LOADER Historical Provider LAB BLOOD ORDERABLES Miranda sheldon Result Performing Organization Address [facility] de Phone Number HISTORICAL RESULTS * Blood antibody identification (01/09/2015 3:18 AM MELTER LOADER) RBC ab, ID #1 Anti-E HISTOR ICAL RESULTS Comment:{Prev. Anti D ad AUS are not reacting.} Blood specimen (specimen) 01/09/2015 3:18 AM MELTER LOADER Historical Provider LAB BLOOD ORDERABLES Miranda sheldon Result Performing Organization Address [facility] de Phone Number HISTORICAL RESULTS * Blood direct antiglobulin test (01/09/2015 12:37 AM MELTER LOADER) Ramón, direct, polyspecific Negative HISTORICAL RESULTS Blood specimen (specimen) 01/09/2015 12:37 AM MELTER LOADER Historical Provider LAB BLOOD ORDERABLES Miranda l Result Performing Organization Address [facility] de Phone Number HISTORICAL RESULTS * Blood E antigen type (01/09/2015 12:37 AM MELTER LOADER) RBC phenotyping, E ag Negative HISTORICAL RESULTS Blood specimen (specimen) 01/09/2015 12:37 AM MELTER LOADER Historical Provider LAB BLOOD ORDERABLES Miranda l Result Performing Organization Address [facility] de Phone Number HISTORICAL RESULTS * (ABNORMAL) Blood ABO, Rh, indirect ab screen (01/09/2015 12:37 AM MELTER LOADER) ABO, Rho(D) O Negative HISTORI PAOLA RESULTS Ramón, indirect Positive(A) HISTORICAL RESULTS Blood specimen (specimen) 01/09/2015 12:37 AM MELTER LOADER Historical Provider LAB BLOOD ORDERABLES Miranda l Result Performing Organization Address [facility] de Phone Number HISTORICAL RESULTS * Blood glucose, POC (01/09/2015 12:33 AM MELTER LOADER) Pathologist [facility] [place] Glucose, POC, bld 133 70 - 199 mg/dl HISTORICAL RESULTS Blood specimen (specimen) 01/09/2015 12:33 AM MELTER LOADER Bo Cuellar MD LAB BLOOD ORDERABLES Final Re sult Performing Organization Address [facility] de Phone Number HISTORICAL RESULTS * All Microbiology Report Section (01/09/2015 12:00 AM MELTER LOADER) 01/09/2015 Narrative HISTORICAL RESULTS - 01/11/2015 9:58 AM MELTER LOADER ? [facility] ?[address] [facility] [address] ?[place] [address] ? Patient Name: ??YULIANA SINGH ? Med Rec Number: [id number] ? Fin Number: ?[id number] ? Date: ?1940 ? Sex/Age: ? Female 74 years ? Admit Date: ?01/07/2015 ? Discharge Date: ? Doctor: ?Polo , Bo S ? Facility: ?[facility] ? Location: ?[id number] ?* Abnormal ??A Alert ??f Footnote [...] charge to ? the patient. ? Result [facility] Provider LAB MICROBIOLOGY - GENERA L [...] hemoglobin saturation, mixed venous (01/08/2015 9:56 PM MELTER LOADER) O2 content, venous 8 volume % O2 HISTORICAL RESULTS Hgb estimated, noris 9.1(L) 12.1 - 15.1 g/dl HISTORICAL RESULTS Oxyhb, noris 61.3 60.0 - 85.0 % HISTORICAL RESULTS Cohb, noris 1.6 0.0 - 2.9 % HISTORIC AL RESULTS MetHb, noris 1.2 0.0 - 1.9 % HISTORI PAOLA RESULTS Mixed venous blood 01/08/2015 9:56 PM MELTER LOADER [place] Historical Provider LAB BLOOD ORDERABLES Miranda l Result HISTORICAL RESULTS * XR Chest 1 View (01/08/2015 9:30 PM MELTER LOADER) Anatomical Region Laterality Modality Body, Chest N/A Radiographic Karla ging 01/08/2015 9:30 PM MELTER LOADER Narrative 01/09/2015 1:16 PM MELTER LOADER BASIM BAH M.D. RENETTA VALERIO M.D. FINAL REPORT The radiology attending physician has personally reviewed this study, and has reviewed and/or edited this written report and agrees with it. ACC# ??Date Time ??Exam [id number] Jan 08, 2015 21:30:00 [id number] Chest 1 view Frontal EXAMINATION: ?? Chest [...] silhouette is stable. Requested By: SANTIAGO MENG [facility] Dictated By: ?? RENETTA VALERIO M.D. ??on Jan 09 2015 10:49A This document has been electronically signed by: BASIM BAH M.D. on Jan 09 2015 ??1:16P [id number] Procedure Note Provider, Edward, - 06/22/2016 BASIM BAH M.D. RENETTA VALERIO M.D. FINAL REPORT The radiology attending physician has personally reviewed this study, and has reviewed and/or edited this written report and agrees with it. ACC# Date Time Exam [id number] Jan 08, 2015 21:30:00 [id number] Chest 1 view Frontal EXAMINATION: Chest 1 [...] silhouette is stable. Requested By: SANTIAGO MENG [facility] Dictated By: RENETTA VALERIO M.D. on Jan 09 2015 10:49A This document has been electronically signed by: BASIM BAH M.D. on Jan 09 2015 1:16P [id number] us Historical Provider [facility]Angel XR PROCEDURES Final R esult * (ABNORMAL) Blood gas, arterial (01/08/2015 8:15 PM MELTER LOADER) CO2, calc, art 21 21 - 30 [...] RESULTS Arterial blood 01/08/2015 8: 15 PM MELTER LOADER Result [facility] Historical Provider LAB BLOOD ORDERABLES Miranda l Result HISTORICAL RESULTS * Blood glucose, POC (01/08/2015 7:46 PM MELTER LOADER) Glucose, POC, bld 159 70 - 199 mg/dl HISTORICAL RESULTS Blood specimen (specimen) 01/08/2015 7:46 PM MELTER LOADER Result [facility] Bo Cuellar MD LAB BLOOD ORDERABLES Final Re sult Performing Organization Address [facility]/ZIP Co de Phone Number HISTORICAL RESULTS * (ABNORMAL) Plasma basic metabolic panel (01/08/2015 7:37 PM MELTER LOADER) Pathologist [facility] [place] Sodium 139 135 - 145 mmol/L HISTORICAL [...] mg/dl HISTORICAL RESULTS Plasma 01/08/2015 7:37 PM MELTER LOADER Result [facility] Historical Provider LAB BLOOD ORDERABLES Miranda l Result Performing Organization Address City/[facility]/ZIP Co de Phone Number HISTORICAL RESULTS * Plasma phosphorus (01/08/2015 7:37 PM MELTER LOADER) Pathologist [facility] [place] Phosphorus, pl 3.0 2.3 - 4.3 mg/dl HISTORICAL RESULTS Plasma 01/08/2015 7:37 PM MELTER LOADER Result [facility] Historical Provider LAB BLOOD ORDERABLES Miranda l Result HISTORICAL RESULTS * Serum magnesium (01/08/2015 7:37 PM MELTER LOADER) Pathologist [facility] [place] Magnesium 2.0 1.4 - 2.5 mg/dl HISTORICAL RESULTS Serum 01/08/2015 7:37 PM MELTER LOADER Result [facility] Historical Provider LAB BLOOD ORDERABLES Miranda sheldon Result Performing Organization Address [facility] Co de Phone Number HISTORICAL RESULTS * (ABNORMAL) Blood cell count [CBC] express (01/08/2015 7:37 PM MELTER LOADER) [facility] WBC 14.3(H) 3.8 - 9.8 K/cumm HISTORICAL [...] RESULTS Blood specimen (specimen) 01/08/2015 7:37 PM MELTER LOADER Result [facility] Historical Provider LAB BLOOD ORDERABLES Miranda l Result Performing Organization Address [facility] de Phone Number HISTORICAL RESULTS * Blood glucose, POC (01/08/2015 5:47 PM MELTER LOADER) [facility] Glucose, POC, bld 116 70 - 199 mg/dl HISTORICAL RESULTS Blood specimen (specimen) 01/08/2015 5:47 PM MELTER LOADER Result [facility] Bo Cuellar MD LAB BLOOD ORDERABLES Final Re sult Performing Organization Address [facility]/ZIP Co de Phone Number HISTORICAL RESULTS * (ABNORMAL) Blood hemoglobin saturation (01/08/2015 1:51 PM MELTER LOADER) [facility] Hgb estimated, main pulmonary a 9.4(L) 12.1 - 15.1 g/dl HISTORICAL RESULTS OxyHb, main pulmonary a 70.6 % HISTORICAL RESULTS COHb, main pulmonary a 1.5 % HISTORICAL RESULTS MetHb, main pulmonary a 1.2 % HISTORICAL RESULTS O2 content, pulmonary a 9.3 volume % O2 HISTORICAL RESULTS Blood specimen (specimen) 01/08/2015 1:51 PM MELTER LOADER Result [facility] Provider LAB BLOOD ORDERABLES Miranda l Result Performing Organization Address [facility] de Phone Number HISTORICAL RESULTS * Blood glucose, POC (01/08/2015 12:27 PM MELTER LOADER) Glucose, POC, bld 175 70 - 199 mg/dl HISTORICAL RESULTS Blood specimen (specimen) 01/08/2015 12:27 PM MELTER LOADER Result [facility] Bo Cuellar MD LAB BLOOD ORDERABLES Final Re sult Performing Organization Address [facility] de Phone Number HISTORICAL RESULTS * (ABNORMAL) Plasma basic metabolic panel (01/08/2015 12:24 PM MELTER LOADER) Pathologist [facility] [place] Sodium 140 135 - 145 mmol/L HISTORICAL [...] HISTORICAL RESULTS Plasma 01/08/2015 12:2 4 PM MELTER LOADER Result [facility] Bo Cuellar MD LAB BLOOD ORDERABLES Final Re sult Performing Organization Address [facility] de Phone Number HISTORICAL RESULTS * Blood lactic acid (01/08/2015 9:48 AM MELTER LOADER) Lactic acid 1.2 0.7 - 2.1 mmol/L HISTORICAL RESULTS Blood specimen (specimen) 01/08/2015 9:48 AM MELTER LOADER Stephanieelaina Perera LAB BLOOD ORDERABLES Final Result Performing Organization Address [facility] de Phone Number HISTORICAL RESULTS * Blood glucose, POC (01/08/2015 7:51 AM MELTER LOADER) [facility] Glucose, POC, bld 172 70 - 199 mg/dl HISTORICAL RESULTS Blood specimen (specimen) 01/08/2015 7:51 AM MELTER LOADER Result [facility] Bo Cuellar MD LAB BLOOD ORDERABLES Final Re sult Performing Organization Address [facility] de Phone Number HISTORICAL RESULTS * (ABNORMAL) Blood gas, arterial (01/08/2015 7:46 AM MELTER LOADER) [facility] Ph, art 7.29(L) 7.35 - 7.45 HISTORICAL [...] RESULTS Arterial blood 01/08/2015 7: 46 AM MELTER LOADER Stephanie Nova Perera LAB BLOOD ORDERABLES Final Result Performing Organization Address [facility] de Phone Number HISTORICAL RESULTS * (ABNORMAL) Blood hemoglobin saturation, mixed venous (01/08/2015 5:06 AM MELTER LOADER) [facility] Hgb estimated, noris 10.0(L) 12.1 - 15.1 g/dl HISTORICAL RESULTS Cohb, noris 1.6 0.0 - 2.9 % HISTORIC AL RESULTS MetHb, noris 1.0 0.0 - 1.9 % HISTORI PAOLA RESULTS O2 content, venous 9 volume % O2 HISTORICAL RESULTS Oxyhb, noris 65.0 60.0 - 85.0 % HISTORICAL RESULTS Mixed venous blood 01/08/2015 5:06 AM MELTER LOADER us Historical Provider LAB BLOOD ORDERABLES Miranda sheldon Result HISTORICAL RESULTS * (ABNORMAL) Serum lipid panel (01/08/2015 5:06 AM MELTER LOADER) Cholesterol 63 0 - 200 mg/dl HISTORICAL [...] last revised 2011. Serum 01/08/2015 5:06 AM MELTER LOADER Historical Provider LAB BLOOD ORDERABLES Miranda l Result Performing Organization Address [facility] de Phone Number HISTORICAL RESULTS * (ABNORMAL) Plasma basic metabolic panel (01/08/2015 5:06 AM MELTER LOADER) Sodium 142 135 - 145 mmol/L HISTORICAL [...] mmol/L HISTORICAL RESULTS Plasma 01/08/2015 5:06 AM MELTER LOADER Result [facility] Provider LAB BLOOD ORDERABLES Miranda l Result Performing Organization Address [facility] de Phone Number HISTORICAL RESULTS * (ABNORMAL) Blood cell count (CBC) (01/08/2015 5:06 AM MELTER LOADER) WBC 15.4(H) 3.8 - 9.8 K/cumm HISTORICAL [...] RESULTS Blood specimen (specimen) 01/08/2015 5:06 AM MELTER LOADER Historical Provider LAB BLOOD ORDERABLES Miranda l Result HISTORICAL RESULTS * (ABNORMAL) Blood hemoglobin A1C (01/08/2015 5:06 AM MELTER LOADER) [facility] Hgb A1C 6.2(H) 4.0 - 6.0 % HISTORICAL RESULTS Estimated average glucose 131 mg/dl HISTORICAL RESULTS Comment: The ADA recommends reporting an estimated Average Glucose (eAG) with all Hemoglobin A1c results using the equation derived from a study of 507 normal and diabetic adults. ??Minority populations were underrepresented and children were not included. ??(Diabetes Care 31:4391-6526, 2008). ??The eAG is not equivalent to a fasting glucose. Blood specimen (specimen) 01/08/2015 5:06 AM MELTER LOADER Historical Provider MD LAB BLOOD ORDERABLES Miranda l Result HISTORICAL RESULTS * Blood glucose, POC (01/08/2015 5:01 AM MELTER LOADER) Glucose, POC, bld 105 70 - 199 mg/dl HISTORICAL RESULTS Blood specimen (specimen) 01/08/2015 5:01 AM MELTER LOADER Bo Cuellar MD LAB BLOOD ORDERABLES Final Re sult Performing Organization Address [facility] Co de Phone Number HISTORICAL RESULTS * Blood glucose, POC (01/08/2015 4:20 AM MELTER LOADER) Glucose, POC, bld 87 70 - 199 mg/dl HISTORICAL RESULTS Blood specimen (specimen) 01/08/2015 4:20 AM MELTER LOADER Bo Cuellar MD LAB BLOOD ORDERABLES Final Re sult Performing Organization Address [facility] Co de Phone Number HISTORICAL RESULTS * XR Chest 1 View (01/08/2015 3:34 AM MELTER LOADER) Anatomical Region Laterality Modality Body, Chest N/A Radiographic Karla ging 01/08/2015 3:34 AM MELTER LOADER Narrative 01/08/2015 8:05 AM MELTER LOADER BASIM BAH M.D. FINAL REPORT ACC# ??Date Time ??Exam [id number] Jan 07, 2015 21:32:00 [id number] Chest 1 view Frontal [id number] Jan 08, 2015 03:34:00 [id number] Chest 1 view Frontal EXAMINATION: ?? Two ??One View Portable Chests IMPRESSION: ?? First exam: The patient is status post a median sternotomy. Sternotomy wires are aligned. The heart and mediastinal contours are normal. the patient had a mitral valve repair. Mediastinal drains in place. [place]-Rayna catheter overlies the main to right pulmonary artery. A right internal jugular central catheter is present, tip overlies the superior vena cava.. There is no pneumothorax.. Surgical clips seen in the left axial There is mild interstitial opacity compatible with edema. Second exam no change with the exception that lung volumes are slightly smaller. Requested By: SUSHMA DONOVAN [facility] Dictated By: ?? BASIM BAH M.D. ??on Jan 08 2015 ??8:05A This document has been electronically signed by: BASIM BAH M.D. on Jan 08 2015 ??8:05A [id number] Procedure Note Provider, Edward, - 06/22/2016 BASIM BAH M.D. FINAL REPORT ACC# Date Time Exam [id number] Jan 07, 2015 21:32:00 [id number] Chest 1 view Frontal [id number] Jan 08, 2015 03:34:00 [id number] Chest 1 view Frontal EXAMINATION: Two One View Portable Chests IMPRESSION: First exam: The patient is status post a median sternotomy. Sternotomy wires are aligned. The heart and mediastinal contours are normal. the patient had a mitral valve repair. Mediastinal drains in place. [place]-Rayna catheter overlies the main to right pulmonary artery. A right internal jugular central catheter is present, tip overlies the superior vena cava.. There is no pneumothorax.. Surgical clips seen in the left axial There is mild interstitial opacity compatible with edema. Second exam no change with the exception that lung volumes are slightly smaller. Requested By: SUSHMA DONOVAN [facility] Dictated By: BASIM BAH M.D. on Jan 08 2015 8:05A This document has been electronically signed by: BASIM BAH M.D. on Jan 08 2015 8:05A [id number] Historical Provider IMG XR PROCEDURES Final R esult * Blood glucose, POC (01/08/2015 3:07 AM MELTER LOADER) Glucose, POC, bld 103 70 - 199 mg/dl HISTORICAL RESULTS Blood specimen (specimen) 01/08/2015 3:07 AM MELTER LOADER us Bo Cuellar MD LAB BLOOD ORDERABLES Final Re sult HISTORICAL RESULTS * Blood glucose, POC (01/08/2015 1:46 AM MELTER LOADER) Glucose, POC, bld 105 70 - 199 mg/dl HISTORICAL RESULTS Blood specimen (specimen) 01/08/2015 1:46 AM MELTER LOADER Bo Cuellar MD LAB BLOOD ORDERABLES Final Re sult Performing Organization Address [facility] Number HISTORICAL RESULTS * Blood glucose, POC (01/08/2015 12:55 AM MELTER LOADER) Glucose, POC, bld 122 70 - 199 mg/dl HISTORICAL RESULTS Blood specimen (specimen) 01/08/2015 12:55 AM MELTER LOADER Bo Cuellar MD LAB BLOOD ORDERABLES Final Re sult Performing Organization Address [facility] Phone Number HISTORICAL RESULTS * Blood glucose, POC (01/07/2015 11:57 PM MELTER LOADER) Glucose, POC, bld 105 70 - 199 mg/dl HISTORICAL RESULTS Blood specimen (specimen) 01/07/2015 11:57 PM MELTER LOADER Result [facility] Bo Cuellar MD LAB BLOOD ORDERABLES Final Re sult Performing Organization Address [facility] Phone Number HISTORICAL RESULTS * Blood glucose, POC (01/07/2015 10:57 PM MELTER LOADER) Glucose, POC, bld 108 70 - 199 mg/dl HISTORICAL RESULTS Blood specimen (specimen) 01/07/2015 10:57 PM MELTER LOADER Result [facility] Bo Cuellar MD LAB BLOOD ORDERABLES Final Re sult Performing Organization Address [facility] Phone Number HISTORICAL RESULTS * (ABNORMAL) Plasma basic metabolic panel (01/07/2015 10:02 PM MELTER LOADER) Sodium 143 135 - 145 mmol/L HISTORICAL [...] HISTORICAL RESULTS Plasma 01/07/2015 10:0 2 PM MELTER LOADER Result [facility] Provider LAB BLOOD ORDERABLES Miranda l Result Performing Organization Address City/[facility] Co de Phone Number HISTORICAL RESULTS * Plasma phosphorus (01/07/2015 10:02 PM MELTER LOADER) Phosphorus, pl 3.4 2.3 - 4.3 mg/dl HISTORICAL RESULTS Plasma 01/07/2015 10:0 2 PM MELTER LOADER Result [facility] Provider LAB BLOOD ORDERABLES Miranda l Result Performing Organization Address [facility] Co de Phone Number HISTORICAL RESULTS * Serum magnesium (01/07/2015 10:02 PM MELTER LOADER) Pathologist [facility] [place] Magnesium 2.1 1.4 - 2.5 mg/dl HISTORICAL RESULTS Serum 01/07/2015 10:0 2 PM MELTER LOADER Result [facility] Provider LAB BLOOD ORDERABLES Miranda l Result Performing Organization Address [facility] Co de Phone Number HISTORICAL RESULTS * (ABNORMAL) Blood cell count [CBC] express (01/07/2015 10:02 PM MELTER LOADER) WBC 13.5(H) 3.8 - 9.8 K/cumm HISTORICAL [...] RESULTS Blood specimen (specimen) 01/07/2015 10:02 PM MELTER LOADER Historical Provider LAB BLOOD ORDERABLES Miranda l Result HISTORICAL RESULTS * Blood glucose, POC (01/07/2015 10:01 PM MELTER LOADER) Glucose, POC, bld 118 70 - 199 mg/dl HISTORICAL RESULTS Blood specimen (specimen) 01/07/2015 10:01 PM MELTER LOADER Bo Cuellar MD LAB BLOOD ORDERABLES Final Re sult Performing Organization Address City/[facility]/ZIP Co de Phone Number HISTORICAL RESULTS * XR Chest 1 View (01/07/2015 9:32 PM MELTER LOADER) Anatomical Region Laterality Modality Body, Chest N/A Radiographic Karla ging 01/07/2015 9:32 PM MELTER LOADER Narrative 01/08/2015 8:05 AM MELTER LOADER BASIM BAH M.D. FINAL REPORT ACC# ??Date Time ??Exam [id number] Jan 07, 2015 21:32:00 [id number] Chest 1 view Frontal [id number] Jan 08, 2015 03:34:00 [id number] Chest 1 view Frontal EXAMINATION: ?? Two ??One View Portable Chests IMPRESSION: ?? First exam: The patient is status post a median sternotomy. Sternotomy wires are aligned. The heart and mediastinal contours are normal. the patient had a mitral valve repair. Mediastinal drains in place. Denton-Rayna catheter overlies the main to right pulmonary [...] BAH M.D. on Jan 08 2015 ??8:05A [id number] Procedure Note Provider, MD Edward - 06/22/2016 BASIM BAH M.D. FINAL REPORT ACC# Date Time Exam [id number] Jan 07, 2015 21:32:00 [id number] Chest 1 view Frontal [id number] Jan 08, 2015 03:34:00 [id number] Chest 1 view Frontal EXAMINATION: Two One View Portable Chests IMPRESSION: First exam: The patient is status post a median sternotomy. Sternotomy wires are aligned. The heart and mediastinal contours are normal. the patient had a mitral valve repair. Mediastinal drains in place. Denton-Rayna catheter overlies the main to right pulmonary [...] BAH M.D. on Jan 08 2015 8:05A [id number] Historical Provider IMG XR PROCEDURES Final R esult * Blood glucose, POC (01/07/2015 8:51 PM MELTER LOADER) Glucose, POC, bld 103 70 - 199 mg/dl HISTORICAL RESULTS Blood specimen (specimen) 01/07/2015 8:51 PM MELTER LOADER us Bo Cuellar MD LAB BLOOD ORDERABLES Final Re sult HISTORICAL RESULTS * Blood glucose, POC (01/07/2015 8:07 PM MELTER LOADER) Glucose, POC, bld 106 70 - 199 mg/dl HISTORICAL RESULTS Blood specimen (specimen) 01/07/2015 8:07 PM MELTER LOADER Result [facility] Bo Cuellar MD LAB BLOOD ORDERABLES Final Re sult Performing Organization Address [facility] de Phone Number HISTORICAL RESULTS * (ABNORMAL) Blood hemoglobin saturation (01/07/2015 6:05 PM MELTER LOADER) O2 content, venous 12 volume % O2 HISTORICAL RESULTS Hgb, central noris 10.0(L) 12.1 - 15.1 g/dl HISTORICAL RESULTS OxyHb, central noris 84.9 60.0 - 85.0 % HISTORICAL RESULTS COHb, central noris 1.1 0.0 - 2.9 % HISTORICAL RESULTS MetHb, central noris 1.3 0.0 - 1.9 % HISTORICAL RESULTS Blood specimen (specimen) 01/07/2015 6:05 PM MELTER LOADER Result [facility] Bo Cuellar MD LAB BLOOD ORDERABLES Final Re sult Performing Organization Address [facility] de Phone Number HISTORICAL RESULTS * Blood glucose, POC (01/07/2015 5:56 PM MELTER LOADER) Pathologist [facility] [place] Glucose, POC, bld 163 70 - 199 mg/dl HISTORICAL RESULTS Blood specimen (specimen) 01/07/2015 5:56 PM MELTER LOADER Result [facility] Bo Cuellar MD LAB BLOOD ORDERABLES Final Re sult Performing Organization Address [facility] de Phone Number HISTORICAL RESULTS * (ABNORMAL) Blood gas, arterial (01/07/2015 5:55 PM MELTER LOADER) Ph, art 7.28(L) 7.35 - 7.45 HISTORICAL [...] RESULTS Arterial blood 01/07/2015 5: 55 PM MELTER LOADER Result [facility] Historical Provider LAB BLOOD ORDERABLES Miranda sheldon Result Performing Organization Address [facility] de Phone Number HISTORICAL RESULTS * (ABNORMAL) Blood hemoglobin saturation, mixed venous (01/07/2015 5:55 PM MELTER LOADER) Hgb estimated, noris 10.0(L) 12.1 - 15.1 g/dl HISTORICAL RESULTS Oxyhb, noris 80.1 60.0 - 85.0 % HISTORICAL RESULTS Cohb, noris 1.4 0.0 - 2.9 % HISTORIC AL RESULTS MetHb, noris 1.2 0.0 - 1.9 % HISTORI PAOLA RESULTS O2 content, venous 11 volume % O2 HISTORICAL RESULTS Mixed venous blood 01/07/2015 5:55 PM MELTER LOADER Result [facility] Historical Provider LAB BLOOD ORDERABLES Miranda sheldon Result Performing Organization Address [facility] de Phone Number HISTORICAL RESULTS * (ABNORMAL) Blood hemoglobin saturation (01/07/2015 5:55 PM MELTER LOADER) Hgb, central noris 10.1(L) 12.1 - 15.1 g/dl HISTORICAL RESULTS OxyHb, central noris 80.0 60.0 - 85.0 % HISTORICAL RESULTS COHb, central noris 1.4 0.0 - 2.9 % HISTORICAL RESULTS MetHb, central noris 1.0 0.0 - 1.9 % HISTORICAL RESULTS O2 content, venous 11 volume % O2 HISTORICAL RESULTS Blood specimen (specimen) 01/07/2015 5:55 PM MELTER LOADER Result [facility] Historical Provider LAB BLOOD ORDERABLES Miranda sheldon Result Performing Organization Address [facility] de Phone Number HISTORICAL RESULTS * Blood glucose, POC (01/07/2015 4:59 PM MELTER LOADER) Glucose, POC, bld 175 70 - 199 mg/dl HISTORICAL RESULTS Blood specimen (specimen) 01/07/2015 4:59 PM MELTER LOADER Result [facility] Bo Cuellar MD LAB BLOOD ORDERABLES Final Re sult Performing Organization Address [facility] de Phone Number HISTORICAL RESULTS * (ABNORMAL) Blood gas, arterial (01/07/2015 4:55 PM MELTER LOADER) Ph, art 7.28(L) 7.35 - 7.45 HISTORICAL [...] RESULTS Arterial blood 01/07/2015 4: 55 PM MELTER LOADER Result [facility] Kael BUENO LAB BLOOD ORDERABLES Miranda l Result Performing Organization Address [facility] de Phone Number HISTORICAL RESULTS * Blood glucose, POC (01/07/2015 4:15 PM MELTER LOADER) Glucose, POC, bld 178 70 - 199 mg/dl HISTORICAL RESULTS Blood specimen (specimen) 01/07/2015 4:15 PM MELTER LOADER Result [facility] Bo Cuellar MD LAB BLOOD ORDERABLES Final Re sult Performing Organization Address [facility] de Phone Number HISTORICAL RESULTS * (ABNORMAL) Blood gas, arterial (01/07/2015 3:50 PM MELTER LOADER) Ph, art 7.29(L) 7.35 - 7.45 HISTORICAL [...] RESULTS Arterial blood 01/07/2015 3: 50 PM MELTER LOADER Result [facility] Historical Provider LAB BLOOD ORDERABLES Miranda l Result Performing Organization Address City/[facility] Co de Phone Number HISTORICAL RESULTS * Blood glucose, POC (01/07/2015 3:05 PM MELTER LOADER) Glucose, POC, bld 179 70 - 199 mg/dl HISTORICAL RESULTS Blood specimen (specimen) 01/07/2015 3:05 PM MELTER LOADER Result [facility] Bo Cuellar MD LAB BLOOD ORDERABLES Final Re sult Performing Organization Address [facility] Co de Phone Number HISTORICAL RESULTS * Blood glucose, POC (01/07/2015 2:26 PM MELTER LOADER) Glucose, POC, bld 142 70 - 199 mg/dl HISTORICAL RESULTS Blood specimen (specimen) 01/07/2015 2:26 PM MELTER LOADER Result [facility] Bo Cuellar MD LAB BLOOD ORDERABLES Final Re sult Performing Organization Address [facility] de Phone Number HISTORICAL RESULTS * XR Chest 1 View (01/07/2015 2:08 PM MELTER LOADER) Anatomical Region Laterality Modality Body, Chest N/A Radiographic Karla ging 01/07/2015 2:08 PM MELTER LOADER Narrative 01/07/2015 6:44 PM MELTER LOADER CAROLYNN DUKE M.D. JIMBO MORRISON M.D. FINAL REPORT The radiology attending physician has personally reviewed this study, and has reviewed and/or edited this written report and agrees with it. ACC# ??Date Time ??Exam [id number] Jan 07, 2015 14:08:00 [id number] Chest 1 view Frontal EXAMINATION: ?? Chest [...] the superior vena cava. Right internal jugular Denton-Rayna catheter tip overlies the right interlobar pulmonary [...] DUKE M.D. on Jan 07 2015 ??6:44P [id number] Procedure Note Provider, MD Edward - 06/22/2016 Bryan DAHL M.D. FINAL REPORT The radiology attending physician has personally reviewed this study, and has reviewed and/or edited this written report and agrees with it. ACC# Date Time Exam [id number] Jan 07, 2015 14:08:00 [id number] Chest 1 view Frontal EXAMINATION: Chest 1 [...] the superior vena cava. Right internal jugular Denton-Rayna catheter tip overlies the right interlobar pulmonary [...] DUKE M.D. on Jan 07 2015 6:44P [id number] Result [facility] Historical Provider IMG XR PROCEDURES Final R esult * (ABNORMAL) Blood hemoglobin saturation, mixed venous (01/07/2015 1:33 PM MELTER LOADER) O2 content, venous 12 volume % O2 HISTORICAL RESULTS Hgb estimated, noris 9.0(L) 12.1 - 15.1 g/dl HISTORICAL RESULTS Oxyhb, noris 94.4(H) 60.0 - 85.0 % HISTORICAL RESULTS Cohb, noris 1.2 0.0 - 2.9 % HISTORIC AL RESULTS MetHb, noris 1.4 0.0 - 1.9 % HISTORI PAOLA RESULTS Mixed venous blood 01/07/2015 1:33 PM MELTER LOADER Result [facility] Historical Provider LAB BLOOD ORDERABLES Miranda l Result Performing Organization Address [facility] Co de Phone Number HISTORICAL RESULTS * Blood glucose, POC (01/07/2015 1:21 PM MELTER LOADER) Pathologist [facility] [place] Glucose, POC, bld 143 70 - 199 mg/dl HISTORICAL RESULTS Blood specimen (specimen) 01/07/2015 1:21 PM MELTER LOADER Result [facility] Bo Cuellar MD LAB BLOOD ORDERABLES Final Re sult Performing Organization Address City/[facility]/ZIP Co de Phone Number HISTORICAL RESULTS * (ABNORMAL) Blood gas, point of care, arterial (01/07/2015 12:26 PM MELTER LOADER) Ph, art 7.30(L) 7.35 - 7.45 HISTORICAL [...] RESULTS Arterial blood 01/07/2015 12 :26 PM MELTER LOADER Bo Cuellar MD LAB BLOOD ORDERABLES Final Re sult Performing Organization Address [facility] de Phone Number HISTORICAL RESULTS * (ABNORMAL) Blood gas, point of care, arterial (01/07/2015 11:50 AM MELTER LOADER) Ph, art 7.40 7.35 - 7.45 HISTORICAL [...] RESULTS Arterial blood 01/07/2015 11 :50 AM MELTER LOADER Bo Cuellar MD LAB BLOOD ORDERABLES Final Re sult Performing Organization Address [facility]/State/ZIP Co de Phone Number HISTORICAL RESULTS * (ABNORMAL) Blood platelet, hematocrit Point of Care (01/07/2015 11:50 AM MELTER LOADER) Hct 26.5(L) 36.1 - 44.3 % HISTORICAL RESULTS Platelets 145 140 - 440 K/cumm HISTORICAL RESULTS Blood specimen (specimen) 01/07/2015 11:50 AM MELTER LOADER Bo Cuellar MD LAB BLOOD ORDERABLES Final Re sult HISTORICAL RESULTS * Blood heparin/activated clotting time (ACT) (01/07/2015 11:45 AM MELTER LOADER) Heparin, POC 0.0 Units/ml HISTORI PAOLA RESULTS Coagulation time, activated, POC 118 112 - 174 seconds HISTORICAL RESULTS Blood specimen (specimen) 01/07/2015 11:45 AM MELTER LOADER Bo Cuellar MD LAB BLOOD ORDERABLES Final Re sult Performing Organization Address [facility]/ZIP Co de Phone Number HISTORICAL RESULTS * Blood heparin/activated clotting time (ACT) (01/07/2015 11:03 AM MELTER LOADER) Heparin, POC 4.1 Units/ml HISTORI PAOLA RESULTS Blood specimen (specimen) 01/07/2015 11:03 AM MELTER LOADER Bo Cuellar MD LAB BLOOD ORDERABLES Final Re sult Performing Organization Address City/[facility] Co de Phone Number HISTORICAL RESULTS * (ABNORMAL) Blood gas, point of care, arterial (01/07/2015 10:36 AM MELTER LOADER) Ph, art 7.37 7.35 - 7.45 HISTORICAL [...] RESULTS Arterial blood 01/07/2015 10 :36 AM MELTER LOADER Bo Cuellar MD LAB BLOOD ORDERABLES Final Re sult Performing Organization Address [facility] de Phone Number HISTORICAL RESULTS * (ABNORMAL) Blood heparin/activated clotting time (ACT) (01/07/2015 10:30 AM MELTER LOADER) Heparin, POC 4.1 Units/ml HISTORI PAOLA RESULTS Coagulation time, activated, POC 554(H) 112 - 174 seconds HISTORICAL RESULTS Blood specimen (specimen) 01/07/2015 10:30 AM MELTER LOADER Bo Cuellar MD LAB BLOOD ORDERABLES Final Re sult Performing Organization Address [facility] Phone Number HISTORICAL RESULTS * Blood heparin/activated clotting time (ACT) (01/07/2015 10:05 AM MELTER LOADER) Heparin, POC 4.1 Units/ml HISTORI PAOLA RESULTS Blood specimen (specimen) 01/07/2015 10:05 AM MELTER LOADER Result [facility] Bo Cuellar MD LAB BLOOD ORDERABLES Final Re sult Performing Organization Address [facility] de Phone Number HISTORICAL RESULTS * (ABNORMAL) Blood gas, point of care, arterial (01/07/2015 9:41 AM MELTER LOADER) Ph, art 7.46(H) 7.35 - 7.45 HISTORICAL [...] RESULTS Arterial blood 01/07/2015 9: 41 AM MELTER LOADER Result [facility] Bo Cuellar MD LAB BLOOD ORDERABLES Final Re sult Performing Organization Address [facility] de Phone Number HISTORICAL RESULTS * (ABNORMAL) Blood heparin/activated clotting time (ACT) (01/07/2015 9:35 AM MELTER LOADER) Heparin, POC >4.7 Units/ml HISTORI PAOLA RESULTS Coagulation time, activated, POC 559(H) 112 - 174 seconds HISTORICAL RESULTS Blood specimen (specimen) 01/07/2015 9:35 AM MELTER LOADER Bo Cuellar MD LAB BLOOD ORDERABLES Final Re sult Performing Organization Address [facility] de Phone Number HISTORICAL RESULTS * (ABNORMAL) Blood heparin/activated clotting time (ACT) (01/07/2015 9:13 AM MELTER LOADER) Heparin, POC 4.1 Units/ml HISTORI PAOLA RESULTS Coagulation time, activated, POC 485(H) 112 - 174 seconds HISTORICAL RESULTS Blood specimen (specimen) 01/07/2015 9:13 AM MELTER LOADER Result [facility] Bo Cuellar MD LAB BLOOD ORDERABLES Final Re sult Performing Organization Address [facility] de Phone Number HISTORICAL RESULTS * (ABNORMAL) Blood gas, point of care, arterial (01/07/2015 8:10 AM MELTER LOADER) Ph, art 7.48(H) 7.35 - 7.45 HISTORICAL [...] RESULTS Arterial blood 01/07/2015 8: 10 AM MELTER LOADER Bo Cuellar MD LAB BLOOD ORDERABLES Final Re sult Performing Organization Address [facility] Co de Phone Number HISTORICAL RESULTS * Blood heparin dose response (01/07/2015 8:03 AM MELTER LOADER) Coagulation time, activated, POC 144 112 - 174 seconds HISTORICAL RESULTS Heparin dose response slope, POC 87 60 - 195 HISTORICAL RESULTS Projected heparin concentration, POC 3.9 Units/ml HISTORICAL RESULTS Blood specimen (specimen) 01/07/2015 8:03 AM MELTER LOADER Bo Cuellar MD LAB BLOOD ORDERABLES Final Re sult Performing Organization Address [facility] Co de Phone Number HISTORICAL RESULTS * Blood glucose, POC (01/07/2015 6:38 AM MELTER LOADER) Glucose, POC, bld 140 70 - 199 mg/dl HISTORICAL RESULTS Gluc, com 1, bld RN Notified HISTORICAL RESULTS Blood specimen (specimen) 01/07/2015 6:38 AM MELTER LOADER Result [facility] Bo Cuellar MD LAB BLOOD ORDERABLES Final Re sult Performing Organization Address [facility] Co de Phone Number HISTORICAL RESULTS * Surgical pathology (01/07/2015) Narrative 01/07/2015 Ordered by an unspecified provider. Historical Provider LAB PATHOLOGY ORDERABLES Final Result * Blood ABO, Rh, indirect ab screen (01/06/2015 1:44 PM MELTER LOADER) ABO, Rho(D) O Negative HISTORI PAOLA RESULTS Ramón, indirect Negative HISTORICAL RESULTS Comment:{Patient has previou s antibody history} Blood specimen (specimen) 01/06/2015 1:44 PM MELTER LOADER us Historical Provider LAB BLOOD ORDERABLES Miranda [...] of breast Hyperlipidemia Other and unspecified hyperlipidemia senior care current use of aspirin Other acute postprocedural pain senior care current use of insulin (CMS/HCC) (HCC) Overweight Body mass index (BMI) of 28.0-28.9 in adult Heart disease Unspecified heart disease documented in this encounter
--- OUTSIDE RECORDS SUMMARY | 2024-03-14 00:02 | XMS_ITS | Encounter Summary ---
Author Organization [facility] Facility Care Team Providers Care Book Sewer Name Role Phone Unavailable Primary Care Provider Unavailabl e Encounter Details Date Type Department Care Team (Latest Contact Info) Description 12/30/2014 - 12/30/2014 11:59 PM THERMODYNAMICS PROFESSOR Hospital Encounter [facility] Bo Holt MD [phone] [place] [address] Malignant neoplasm of rectum (CMS/HCC); Secondary malignant [...] on file Legal Sex Female 11:30 PM THERMODYNAMICS PROFESSOR Gender Identity Female 06/15/2023 1:45 PM [...] W CONTRAST Routine 12/30/2014 1 0:45 AM THERMODYNAMICS PROFESSOR PLASMA BASIC METABOLIC PANEL Routine 12/30/2014 7:40 AM THERMODYNAMICS PROFESSOR BLOOD B-TYPE NATRIURETIC PEPTIDE (BNP) Routine 12/30/2014 7:40 AM THERMODYNAMICS PROFESSOR BLOOD CELL COUNT (CBC) Routine 12/30/2014 7:40 AM THERMODYNAMICS PROFESSOR DISCHARGE LABORATORY CUMULATIVE REPORT 12/30/2014 documented in this encounter Results * CT Chest W Contrast (12/30/2014 10:45 AM THERMODYNAMICS PROFESSOR) Anatomical Region Laterality Modality Body N/A Computed Tomogra phy 12/30/2014 10:4 5 AM THERMODYNAMICS PROFESSOR Narrative 12/30/2014 10:09 PM THERMODYNAMICS PROFESSOR NADIRA JOSUE M.D. JUNIOR TOBIN M.D. FINAL REPORT The radiology attending physician has personally reviewed this study, and has reviewed and/or edited this written report and agrees with it. ACC# ??Date Time ??Exam [id number] Dec 30, 2014 10:45:[id number] Chest with contrast EXAMINATION: ?CT of [...] NADIRA JOSUE M.D. on Dec ??2014 10:09P [id number] Procedure Note Provider, MD Edward - 06/22/2016 NADIRA JOSUE M.D. JUNIOR TOBIN M.D. FINAL REPORT The radiology attending physician has personally reviewed this study, and has reviewed and/or edited this written report and agrees with it. [facility]# Date Time Exam [id number] Dec 30, 2014 10:45:[id number] Chest with contrast EXAMINATION: CT of [...] JOSUE M.D. on Dec 30 2014 10:09P [id number] Historical Provider IMG CT PROCEDURES Final R esult * (ABNORMAL) Plasma basic metabolic panel (12/30/2014 7:40 AM THERMODYNAMICS PROFESSOR) Sodium 140 135 - 145 mmol/L HISTORICAL [...] HISTORICAL RESULTS Plasma 12/30/2014 7:4 0 AM THERMODYNAMICS PROFESSOR Narrative HISTORICAL RESULTS - 12/30/2014 10:13 AM THERMODYNAMICS PROFESSOR Client / Account bill? No Client Account Number and Description: Bo Cuellar MD LAB BLOOD ORDERABLES Final Re sult HISTORICAL RESULTS * (ABNORMAL) Blood cell count (CBC) (12/30/2014 7:40 AM THERMODYNAMICS PROFESSOR) WBC 8.6 3.8 - 9.8 K/cumm HISTORICAL [...] RESULTS Blood specimen (specimen) 12/30/2014 7:40 AM THERMODYNAMICS PROFESSOR Narrative HISTORICAL RESULTS - 12/30/2014 8:36 AM THERMODYNAMICS PROFESSOR Client / Account bill? No Client Account Number and Description: Bo Cuellar MD LAB BLOOD ORDERABLES Final Re sult HISTORICAL RESULTS * (ABNORMAL) Blood B-type natriuretic peptide (BNP) (12/30/2014 7:40 AM THERMODYNAMICS PROFESSOR) BNP 409(H) 0 - 100 pg/ml HISTORICAL RESULTS Blood specimen (specimen) 12/30/2014 7:40 AM THERMODYNAMICS PROFESSOR Narrative HISTORICAL RESULTS - 12/30/2014 10:23 AM THERMODYNAMICS PROFESSOR Client / Account bill? No Client Account [...]
--- OUTSIDE RECORDS SUMMARY | 2024-03-14 00:02 | XMS_ITS | Encounter Summary ---
Author Organization [facility] Address [address] [place] [address] Phone Care Team Providers Care Incident Response Engineer Name Role Phone Cassius Chambers MD Primary Care Provider [phone] Encounter Details Date Type Department Care Team (Late st Contact Info) Description 10/03/2017 Telephone [facility] Cardiology [address] [facility] [address] [place] [address] [place] [address] Sp Madrid MD [address] [facility] [address] [place] [address] Social History Tobacco Use Types Packs/Day Years Used Date Smoking Tobacco: Never Smokeless Tobacco: Never Comments Unknown Sex and Gender Information Value Date Recorded Sex Assigned at Not on file Legal Sex Female 11:30 PM [employer] Gender Identity Female 06/15/2023 1:45 PM [...] on filedocumented in this encounter Care Teams Incident Response Engineer Relationship Specialty Start Date End Date Cassius Chambers MD [address] [address] PCP - General 08/12/16 12/30/20 documented as of this encounter
--- OUTSIDE RECORDS SUMMARY | 2024-03-14 00:02 | XMS_ITS | Encounter Summary ---
Author Organization [facility] Facility Care Team Providers Care Clinical Biochemical Geneticist Name Role Phone Unavailable Primary Care Provider Unavailabl e Encounter Details Date Type Department Care Team (Late st Contact Info) Description 10/27/2015 12:40 PM CDT - 10/27/2015 11:59 PM CDT Hospital Encounter [facility] Cassius Cummings MD [address] [address] Encounter for screening mammogram for malignant neoplasm of breast Social History Tobacco Use Types Packs/Day Years Used Date Smoking Tobacco: Never Assessed Comments Unknown Sex and Gender Information Value Date Recorded Sex Assigned at Not on file Legal Sex Female 11:30 PM CATTERY OPERATOR Gender Identity Female 06/15/2023 1:45 PM [...] M.D. FINAL REPORT ACC# ??Date Time ??Exam [id number] Oct 27, 2015 13:02:00 [facility] [id number] Mastectomy Screen w Sourav R ?? Technologist(s): Abimbola Handley; ; EXAMINATION: ??Mammogram Technique: Right Unilateral Full-Field Digital Screening Mammogram and Digital Breast Tomosynthesis were performed. ??Views obtained: ??right craniocaudal and right mediolateral oblique. ??Computer Aided Detection of the 2D images was performed with ShootHome.3 version 9.3. Mammogram Findings: The present examination has been compared to prior imaging studies performed at [facility] on 05/08/2014, 05/14/2013 and 04/19/2012. There are [...] STRINGER M.D. on Oct 28 2015 12:02P [id number] Procedure Note Provider, MD Edward - 06/22/2016 KARISSA STRINGER M.D. FINAL REPORT ACC# Date Time Exam [id number] Oct 27, 2015 13:02:00 [facility] [id number] Mastectomy Screen w Sourav R Technologist(s): Abimbola Handley; ; EXAMINATION: Mammogram Technique: Right Unilateral Full-Field Digital Screening Mammogram and Digital Breast Tomosynthesis were performed. Views obtained: rightcraniocaudal and right mediolateral oblique. Computer Aided Detection of the 2Dimages was performed with ShootHome.3 version 9.3. Mammogram Findings: The present examination has been compared to prior imaging studies performed at [facility] on 05/08/2014, 05/14/2013 and 04/19/2012. There are [...] STRINGER M.D. on Oct 28 2015 12:02P [id number] us Historical Provider MD [facility] MAMMO PROCEDURES Miranda l Result documented in this encounter Visit Diagnoses Diagnosis Encounter for screening mammogram for malignant neoplasm of breast documented in this encounter
--- OUTSIDE RECORDS SUMMARY | 2024-03-14 00:02 | XMS_ITS | Encounter Summary ---
Author Organization [facility] Facility Care Team Providers Care Board Machine Set Up Operator Name Role Phone Unavailable Primary Care Provider Unavailabl e Encounter Details Date Type Department Care Team (Latest Contact Info) Description 12/30/2014 7:46 AM WINDER HAND - 12/30/2014 4:00 PM [facility] Hospital Encounter [facility] Bo Holt MD [phone] [place] [address] Encounter for other preprocedural examination; Encounter for [...] on file Legal Sex Female 11:30 PM WINDER HAND Gender Identity Female 06/15/2023 1:45 PM [...] BLOOD ANTIBODY IDENTIFICATION Routine 12/30/2014 11:12 AM WINDER HAND CHEST RADIOGRAPHY, FRONTAL (AP), LATERAL Routine 12/30/2014 9:45 AM WINDER HAND PLASMA PROTHROMBIN TIME (PT) Routine 12/30/2014 9:10 AM WINDER HAND PLASMA COMPREHENSIVE METABOLIC PANEL Routine 12/30/2014 9:10 AM [facility]ER HAND BLOOD PARTIAL THROMBOPLASTIN TIME (PTT) Routine 12/30/2014 9:10 AM WINDER HAND URINALYSIS Routine 12/30/2014 9:10 AM WINDER HAND BLOOD CELL COUNT (CBC) Routine 5 9:10 AM WINDER HAND BLOOD ABO, RH, INDIRECT AB SCREEN Routine 12/30/2014 9:10 AM WINDER HAND ELECTROCARDIOGRAPHY (ECG) 12/30/2014 DISCHARGE LABORATORY CUMULATIVE REPORT 12/30/2014 documented in this encounter Results * Blood antibody identification (12/30/2014 11:12 AM WINDER HAND) RBC ab, ID #1 Antibody of Undetermined Specificity HISTORICAL RESULTS Comment:{Previous Anti-D not showing} Blood specimen (specimen) 12/30/2014 11:12 AM WINDER HAND us Historical Provider LAB BLOOD ORDERABLES Miranda sheldon Result HISTORICAL RESULTS * CHEST RADIOGRAPHY, FRONTAL (AP), LATERAL (12/30/2014 9:45 AM WINDER HAND) Anatomical Region Laterality Modality N/A Radiographic Karla ging 12/30/2014 9:45 AM WINDER HAND Narrative 12/30/2014 12:28 PM WINDER HAND ULISES NOLAN M.D. ULISES RIOS M.D. FINAL REPORT The radiology attending physician has personally reviewed this study, and has reviewed and/or edited this written report and agrees with it. ACC# ??Date Time ??Exam [id number] Dec 30, 2014 09:45:00 [id number] Chest 2 views Frontl & Lat EXAMINATION: [...] by: ULISES NOLAN M.D. on Dec 12:28P [id number] Procedure Note Provider, Edward, - 06/22/2016 Bryan PEREZ M.D. FINAL REPORT The radiology attending physician has personally reviewed this study, and has reviewed and/or edited this written report and agrees with it. ACC# Date Time Exam [id number] Dec 30, 2014 09:45:00 [id number] Chest 2 views Frontl & Lat EXAMINATION: [...] NOLAN M.D. on Dec 30 2014 12:28P [id number] Historical Provider MD IMG XR PROCEDURES Final R esult * Urinalysis (12/30/2014 9:10 AM WINDER HAND) Color, ur Yellow Yellow HISTORICAL RESULTS Clarity, [...] Negative HISTORICAL RESULTS Urine 12/30/2014 9:10 AM WINDER HAND Result [facility] Historical Provider LAB BLOOD ORDERABLES Miranda l Result Performing Organization Address [facility]/State/ZIP Co de Phone Number HISTORICAL RESULTS * Plasma comprehensive metabolic panel (12/30/2014 9:10 AM WINDER HAND) Sodium 142 135 - 145 mmol/L HISTORICAL [...] Units/L HISTORICAL RESULTS Plasma 12/30/2014 9:10 AM WINDER HAND Result [facility] Provider LAB BLOOD ORDERABLES Miranda l Result Performing Organization Address [facility] de Phone Number HISTORICAL RESULTS * Plasma prothrombin time (PT) (12/30/2014 9:10 AM WINDER HAND) Prothrombin time (PT) 11.5 9.2 - 13.0 [...] updated copy of the Tool Book at http://[facility]/bjc/pharmacy.nsf Current Interpretive Data was last revised 2011. Plasma 12/30/2014 9:10 AM WINDER HAND us Historical Provider MD LAB BLOOD ORDERABLES Miranda pito Result Performing Organization Address [facility] Co de Phone Number HISTORICAL RESULTS * Blood partial thromboplastin time (PTT) (12/30/2014 9:10 AM WINDER HAND) APTT 28.6 25.0 - 37.0 seconds HISTORICAL RESULTS Comment: Interpretive Data Therapeutic heparin range:60.0 - 94.0 sec based on correlation with therapeutic heparin activity range of 0.3 -0.7 Units/mL. Current interpretive data was last revised on 2011. Blood specimen (specimen) 12/30/2014 9:10 AM WINDER HAND us Historical Provider LAB BLOOD ORDERABLES Miranda pito Result HISTORICAL RESULTS * (ABNORMAL) Blood cell count (CBC) (12/30/2014 9:10 AM WINDER HAND) WBC 7.3 3.8 - 9.8 K/cumm HISTORICAL [...] RESULTS Blood specimen (specimen) 12/30/2014 9:10 AM [facility]ER HAND Historical Provider LAB BLOOD ORDERABLES Miranda sheldon Result HISTORICAL RESULTS * (ABNORMAL) Blood ABO, Rh, indirect ab screen (12/30/2014 9:10 AM WINDER HAND) Ramón, indirect Positive(A) HISTORICAL RESULTS ABO, Rho(D) O Negative HISTORI PAOLA RESULTS Blood specimen (specimen) 12/30/2014 9:10 AM WINDER HAND Result [facility] Provider LAB BLOOD ORDERABLES Miranda l Result HISTORICAL RESULTS * DISCHARGE LABORATORY CUMULATIVE REPORT (12/30/2014) Narrative 12/30/2014 Ordered by an unspecified provider. Historical Provider LAB BLOOD ORDERABLES Miranda l Result * ELECTROCARDIOGRAPHY (ECG) (12/30/2014) Narrative 12/30/2014 Ordered by an unspecified provider. [facility] Provider ECG ORDERABLES Final Res ult documented [...]
--- OUTSIDE RECORDS SUMMARY | 2024-03-14 00:02 | XMS_ITS | Encounter Summary ---
Author Organization [facility] Facility Care Team Providers Care Reconciliation Analyst Name Role Phone Unavailable Primary Care Provider Unavailabl e Encounter Details Date Type Department Care Team (Latest Contact Info) Description 01/27/2015 - 01/27/2015 11:59 PM SALES TEAM MEMBER Hospital Encounter [facility] Bo Holt MD [address] [place] [address] Nonrheumatic mitral valve insufficiency; Other specified postprocedural state Social History Tobacco Use Types Packs/Day Years Used Date Smoking Tobacco: Never Assessed Comments Unknown Sex and Gender Information Value Date Recorded Sex Assigned at Not on file Legal Sex Female 11:30 PM SALES TEAM MEMBER Gender Identity Female 06/15/2023 1:45 [...] BASIC METABOLIC PANEL Routine 01/27/2015 2:03 PM SALES TEAM MEMBER BLOOD B-TYPE NATRIURETIC PEPTIDE (BNP) Routine 01/27/2015 2:03 PM SALES TEAM MEMBER BLOOD CELL COUNT (CBC) Routine 01/27/2015 2:03 PM SALES TEAM MEMBER CHEST RADIOGRAPHY, FRONTAL (AP), LATERAL Routine 01/27/2015 11:14 AM SALES TEAM MEMBER DISCHARGE LABORATORY CUMULATIVE REPORT 01/27/2015 documented in this encounter Results * (ABNORMAL) Plasma basic metabolic panel (01/27/2015 2:03 PM SALES TEAM MEMBER) Sodium 141 135 - 145 mmol/L HISTORICAL [...] mg/dl HISTORICAL RESULTS Plasma 01/27/2015 2:03 PM SALES TEAM MEMBER us Bo Cuellar MD LAB BLOOD ORDERABLES Final Re sult HISTORICAL RESULTS * (ABNORMAL) Blood cell count (CBC) (01/27/2015 2:03 PM SALES TEAM MEMBER) WBC 6.7 3.8 - 9.8 K/cumm HISTORICAL [...] RESULTS Blood specimen (specimen) 01/27/2015 2:03 PM SALES TEAM MEMBER Bo Cuellar MD LAB BLOOD ORDERABLES Final Re sult HISTORICAL RESULTS * (ABNORMAL) Blood B-type natriuretic peptide (BNP) (01/27/2015 2:03 PM SALES TEAM MEMBER) BNP 797(H) 0 - 100 pg/ml HISTORICAL RESULTS Blood specimen (specimen) 01/27/2015 2:03 PM SALES TEAM MEMBER Bo Cuellar MD LAB BLOOD ORDERABLES Final Re sult HISTORICAL RESULTS * CHEST RADIOGRAPHY, FRONTAL (AP), LATERAL (01/27/2015 11:14 AM SALES TEAM MEMBER) Anatomical Region Laterality Modality N/A Radiographic Karla ging 01/27/2015 11:1 4 AM SALES TEAM MEMBER Narrative 01/27/2015 3:22 PM SALES TEAM MEMBER BASIM BAH M.D. FINAL REPORT ACC# ??Date Time ??Exam [id number] Jan 27, 2015 11:14:00 [id number] Chest 2 views Frontl & Lat EXAMINATION: [...] M.D. FINAL REPORT ACC# Date Time Exam [id number] Jan 27, 2015 11:14:00 [id number] Chest 2 views Frontl & Lat EXAMINATION: [...]
--- OUTSIDE RECORDS SUMMARY | 2024-03-14 00:02 | XMS_ITS | Encounter Summary ---
Author Organization [facility] Address [address] [place] [address] Phone Care Team Providers Care Pulp Drier Firer Name Role Phone Cassius Chambers MD Primary Care Provider [phone] Reason for Visit * Reason Onset Date Comments Test Results 10/03/2017 Lipid Flowsheet Encounter Details Date Type Department Care Team (Late st Contact Info) Description 10/03/2017 Documentation [facility] Cardiology [address] [place] [address] Sp Madrid MD [address] [facility] [address] [place] [address] Test Results (Lipid Flowsheet) Social History Tobacco Use Types Packs/Day Years Used Date Smoking Tobacco: Never Smokeless Tobacco: Never Comments Unknown Sex and Gender Information Value Date Recorded Sex Assigned at Not on file Legal Sex Female 11:30 PM CLINICAL TRANSPLANT COORDINATOR Gender Identity Female 06/15/2023 1:45 PM [...] on filedocumented in this encounter Care Teams Pulp Drier Firer Relationship Specialty Start Date End Date Cassius Chambers MD [address] [address] PCP - General 08/12/16 12/30/20 documented as of this encounter
--- OUTSIDE RECORDS SUMMARY | 2024-03-14 00:02 | XMS_ITS | Encounter Summary ---
Author Organization [facility] Address [address] [place] [address] Phone Care Team Providers Care Sock Examiner Name Role Phone Cassius Chambers MD Primary Care Provider [phone] Reason for Referral * (Routine) - Closed Specialty Diagnoses / Procedures Referred By Contac t Referred To Contact Diagnoses Mitral valve insufficiency, unspecified etiology Procedures Transthoracic Echo Complete W Doppler/CF Sp Kilpatrick MD Phone: tel: fax: [facility] (All Locations) Referral ID Status Reason Start Date Expiration Date Visits Re quested Visits Authorized [id number] Closed 04/03/2018 10/13/2019 1 1 PHONIC NURSE CASE MANAGER Encounter Details Date Type Department Care Team (Late st Contact Info) Description 04/03/2018 10:15 AM TELEPHONIC NURSE CASE MANAGER Office Visit [facility] Cardiology [address] 8th [place] [address] [place] [id number] Sp Kilpatrick MD [address] [facility] [address] [place] [address] Mitral valve insufficiency, unspecified etiology (Primary Dx) Social History Tobacco Use Types Packs/Day Years Used Date Smoking Tobacco: Never Smokeless Tobacco: Never Comments Unknown Sex and Gender Information Value Date Recorded Sex Assigned at Not on file Legal Sex Female 11:30 PM TELEPHONIC NURSE CASE MANAGER Gender Identity Female 06/15/2023 1:45 PM CDT Sexual Orientation Straight 06/15/2023 1: 45 PM CDT documented as of this encounter Last Filed Vital Signs Vital Sign Reading Time Taken Comments Blood Pressure 147/73 04/03/2018 10:52 AM TELEPHONIC NURSE CASE MANAGER Pulse 70 04/03/2018 10:52 AM TELEPHONIC NURSE CASE MANAGER Temperature - - Respiratory Rate - - Oxygen Saturation 98% 04/03/2018 10: 52 AM TELEPHONIC NURSE CASE MANAGER Inhaled Oxygen Concentration - - Weight 65.7 kg (144 lb 12.8 oz) 019 10:52 AM TELEPHONIC NURSE CASE MANAGER Height 155.4 cm (5' 1.2 ) 04/03/2018 10 :52 AM TELEPHONIC NURSE CASE MANAGER Body Mass Index 27.18 04/03/2018 10:52 AM TELEPHONIC NURSE CASE MANAGER documented in this encounter Patient Instructions * Patient Instructions* Sp Kilpatrick MD - 04/03/2018 10:15 AM TELEPHONIC NURSE CASE MANAGER Echo with doppler for MV/TV evaluation See me in 6 Month PHONIC NURSE CASE MANAGER PHONIC NURSE CASE MANAGER documented in this encounter Progress [...] regarding her cardiac problems. Damien Norton MD maintenance machine repairer Cardiology Division [facility] PHONIC NURSE CASE MANAGER documented in this encounter Plan of Treatment Not on file documented as of this encounter Results * TRANSTHORACIC ECHO (TTE) COMPLETE W DOPPLER/CF WO CONTRAST (04/11/2018 1:03 PM TELEPHONIC NURSE CASE MANAGER) Anatomical Region Laterality Modality Ultrasound 04/11/2018 12:3 0 PM TELEPHONIC NURSE CASE MANAGER Narrative 04/11/2018 9:40 PM TELEPHONIC NURSE CASE MANAGER Patient name: Yuliana Johnson Date of test: 04/11/2018 Type of test: TTE w/Doppler [facility] #: 0 Date of : 1940 (F) General Ledger Accountant: Liv Mccormick RD RVT Referring Physician: SP KILPATRICK MD Contrast Agent: Contrast Administered by: Supervised/Interpreted by: Sp Kilpatrick MD Diagnosis: MV Repair, TV Repair Location: [facility] Reason for test: MV Repair, TV [...] 2=Hypo 3=Akinetic 4=Dyskin./Aneurysm 0=Not visualized) Parasternal Long [place]:MAS=1 BAS=1 MP=1 BP=1 Parasternal Short [place]:MAS=1 MS=1 AR=1 MP=1 ML=1 MA=1 Apical 4 Chambers:=1 MS=1 BS=1 BL=1 AR=1 AL=1 Apical 2 Chambers:AI=1 AR=1 BI=1 BA=1 MA=1 AA=1 LV Global Longitudinal [...] test: 04/11/2018 Type of test: TTE w/Doppler [facility] #: 0 Date of : 1940 (F) General Ledger Accountant: Liv Mccormick [facility] RVT Referring Physician: SP KILPATRICK MD Contrast Agent: Contrast Administered by: Supervised/Interpreted by: Sp Kilpatrick MD Diagnosis: MV Repair, TV Repair Location: [facility] Reason for test: MV Repair, TV [...] 2=Hypo 3=Akinetic 4=Dyskin./Aneurysm 0=Not visualized) Parasternal Long [place]:MAS=1 BAS=1 MP=1 BP=1 Parasternal Short [place]:MAS=1 MS=1 AR=1 MP=1 ML=1 MA=1 Apical 4 Chambers:=1 MS=1 BS=1 BL=1 AR=1 AL=1 Apical 2 Chambers:AI=1 AR=1 BI=1 BA=1 MA=1 AA=1 LV Global Longitudinal [...] etiology documented in this encounter Care Teams Sock Examiner Relationship Specialty Start Date End Date Cassius Chambers MD [address] [facility] [address] [place] [address] PCP - General 08/12/16 12/30/20 documented as of this encounter
--- OUTSIDE RECORDS SUMMARY | 2024-03-14 00:02 | XMS_ITS | Encounter Summary ---
Author Organization [facility] Facility Care Team Providers Care Pharmacy District Manager Name Role Phone Unavailable Primary Care Provider Unavailabl e Encounter Details Date Type Department Care Team (Late st Contact Info) Description 01/06/2015 1:17 PM EMT I/99 - 01/06/2015 4:00 PM EMT I/99 Hospital Encounter [facility] Social History Tobacco Use Types Packs/Day Years Used Date Smoking Tobacco: Never Assessed Comments Unknown Sex and Gender Information Value Date Recorded Sex Assigned at Not on file Legal Sex Female 11:30 PM EMT I/99 Gender Identity Female 06/15/2023 1:45 PM CDT [...] SURVEILLANCE CULTURE, CDR Routine 01/07/2015 1:33 PM EMT I/99 SERUM MAGNESIUM Routine 01/07/2015 1:30 PM EMT I/99 PLASMA PROTHROMBIN TIME (PT) Routine 01/07/2015 1:30 PM EMT I/99 PLASMA PHOSPHORUS Routine 01/07/2015 1:3 0 PM EMT I/99 PLASMA PARTIAL THROMBOPLASTIN TIME (PTT) Routine 01/07/2015 1:30 PM EMT I/99 PLASMA BASIC METABOLIC PANEL Routine 01/07/2015 1:30 PM EMT I/99 BLOOD POTASSIUM, MIXED VENOUS Routine 01/07/2015 1:30 PM EMT I/99 BLOOD CELL COUNT Routine 01/07/2015 1:30 PM EMT I/99 BLOOD PROTHROMBIN TIME (PT) Routine 01/07/2015 11:51 AM EMT I/99 PLASMA PARTIAL THROMBOPLASTIN TIME (PTT) Routine 01/07/2015 11:50 AM EMT I/99 BLOOD GAS, ARTERIAL Routine 01/07/2015 7 :30 AM EMT I/99 ALL MICROBIOLOGY REPORT SECTION Routine 01/07/2015 12:00 AM EMT I/99 DISCHARGE LABORATORY CUMULATIVE REPORT 01/06/2015 documented in this encounter Results * Methicillin-resistant Staphylococcus aureus (MRSA) surveillance culture (01/07/2015 1:33 PM EMT I/99) Nasal (Unknown) 01/07/2015 1 :33 PM EMT I/99 01/07/2015 2:29 PM EMT I/99 Impressions HISTORICAL RESULTS - 01/09/2015 7:15 AM EMT I/99 This test is for Infection Prevention surveillance; no charge to the patient. Narrative HISTORICAL RESULTS - 01/09/2015 7:15 AM EMT I/99 Negative us Historical Provider LAB MICROBIOLOGY - GENERA L ORDERABLES Final Result HISTORICAL RESULTS * Plasma partial thromboplastin time (PTT) (01/07/2015 1:30 PM EMT I/99) APTT 29.1 25.0 - 37.0 seconds HISTORICAL RESULTS Comment: Interpretive Data Therapeutic heparin range:60.0 - 94.0 sec based on correlation with therapeutic heparin activity range of 0.3 -0.7 Units/mL. Current interpretive data was last revised on 2011. Plasma 01/07/2015 1:30 PM EMT I/99 Result [facility] Historical Provider LAB BLOOD ORDERABLES Miranda l Result Performing Organization Address [facility] Co de Phone Number HISTORICAL RESULTS * (ABNORMAL) Plasma basic metabolic panel (01/07/2015 1:30 PM EMT I/99) Sodium 144 135 - 145 mmol/L HISTORICAL [...] mg/dl HISTORICAL RESULTS Plasma 01/07/2015 1:30 PM EMT I/99 Result [facility] Historical Provider LAB BLOOD ORDERABLES Miranda l Result Performing Organization Address [facility] de Phone Number HISTORICAL RESULTS * Plasma phosphorus (01/07/2015 1:30 PM EMT I/99) Phosphorus, pl 4.3 2.3 - 4.3 mg/dl HISTORICAL RESULTS Plasma 01/07/2015 1:30 PM EMT I/99 Result [facility] Historical Provider LAB BLOOD ORDERABLES Miranda l Result Performing Organization Address [facility] Co de Phone Number HISTORICAL RESULTS * (ABNORMAL) Plasma prothrombin time (PT) (01/07/2015 1:30 PM EMT I/99) Prothrombin time (PT) 16.0(H) 9.2 - 13.0 [...] updated copy of the Tool Book at http://[facility]/bjc/pharmacy.nsf Current Interpretive Data was last revised 2011. Plasma 01/07/2015 1:30 PM EMT I/99 Result [facility] Historical Provider MD LAB BLOOD ORDERABLES Miranda l Result Performing Organization Address [facility] de Phone Number HISTORICAL RESULTS * (ABNORMAL) Serum magnesium (01/07/2015 1:30 PM EMT I/99) Magnesium 2.8(H) 1.4 - 2.5 mg/dl HISTORICAL RESULTS Serum 01/07/2015 1:3 0 PM EMT I/99 Result [facility] Historical Provider MD LAB BLOOD ORDERABLES Miranda l Result Performing Organization Address [facility] de Phone Number HISTORICAL RESULTS * (ABNORMAL) Blood cell count [CBC] express (01/07/2015 1:30 PM EMT I/99) WBC 19.5(H) 3.8 - 9.8 K/cumm HISTORICAL [...] RESULTS Blood specimen (specimen) 01/07/2015 1:30 PM EMT I/99 Historical Provider LAB BLOOD ORDERABLES Miranda l Result Performing Organization Address [facility] Co de Phone Number HISTORICAL RESULTS * Blood potassium, mixed venous (01/07/2015 1:30 PM EMT I/99) Pathologist [facility] Potassium, bld 3.8 3.3 - 4.9 mmol/L HISTORICAL RESULTS Mixed venous blood 01/07/2015 1:30 PM EMT I/99 Historical Provider LAB BLOOD ORDERABLES Miranda l Result Performing Organization Address [facility] de Phone Number HISTORICAL RESULTS * (ABNORMAL) Blood prothrombin time (PT) (01/07/2015 11:51 AM EMT I/99) Pathologist [facility] PT 31.1(H) 12.1 - 17.0 seconds HISTORICAL RESULTS INR 2.4(H) 1.0 - 1.3 HISTORICAL RESULTS Blood specimen (specimen) 01/07/2015 11:51 AM EMT I/99 Result [facility] Bo Cuellar MD LAB BLOOD ORDERABLES Final Re sult Performing Organization Address [facility] Co de Phone Number HISTORICAL RESULTS * Plasma partial thromboplastin time (PTT) (01/07/2015 11:50 AM EMT I/99) Pathologist [facility] APTT 39.4 29.3 - 45.4 seconds HISTORICAL RESULTS Plasma 01/07/2015 11:5 0 AM EMT I/99 Bo Cuellar MD LAB BLOOD ORDERABLES Final Re sult Performing Organization Address [facility]/ZIP Co de Phone Number HISTORICAL RESULTS * (ABNORMAL) Blood gas, arterial (01/07/2015 7:30 AM EMT I/99) Ph, art 7.26(L) 7.35 - 7.45 HISTORICAL [...] RESULTS Arterial blood 01/07/2015 7: 30 AM EMT I/99 Narrative HISTORICAL RESULTS - 01/07/2015 7:58 AM EMT I/99 Attribute Deleted us Historical Provider LAB BLOOD ORDERABLES Miranda l Result Performing Organization Address [facility] Co de Phone Number HISTORICAL RESULTS * All Microbiology Report Section (01/07/2015 12:00 AM EMT I/99) 01/07/2015 Narrative HISTORICAL RESULTS - 01/09/2015 10:25 AM EMT I/99 ? [facility] ?[address] [facility] [address] ?[place], [place] [address] ? Patient Name: ??SAMANTHA, YULIANA Raul ? Med Rec Number: [id number] ? Fin Number: ?[id number] ? Date: ?1940 ? Sex/Age: ? Female 74 years ? Admit Date: ?01/06/2015 ? Discharge Date: 01/06/2015 ? Doctor: ?Maniar , Bo S ? Facility: ?[facility] ? Location: ?CPAP ?* Abnormal ??A [...]
--- OUTSIDE RECORDS SUMMARY | 2024-03-14 00:02 | XMS_ITS | Encounter Summary ---
Author Organization [facility] Address [address] [place] [address] Phone Care Team Providers Care Parking Lot Spotter Name Role Phone Cassius Chambers MD Primary Care Provider [phone] Encounter Details Date Type Department Care Team (Late st Contact Info) Description 09/12/2017 10:45 AM CDT Office Visit [facility] Cardiology [address] [facility] Advanced Medicine 8th [place] [address] [place] [address] Sp Madrid MD [address] [facility] [address] [place] [address] Chest pain (Primary Dx); Essential hypertension; Mitral valve disorder; Dyslipidemia; Diabetes mellitus type II Social History Tobacco Use Types Packs/Day Years Used Date Smoking Tobacco: Never Smokeless Tobacco: Never Comments Unknown Sex and Gender Information Value Date Recorded Sex Assigned at Not on file Legal Sex Female 11:30 PM MORTGAGE LOAN ASSISTANT Gender Identity Female 06/15/2023 1:45 PM [...] regarding her cardiac problems. Damien Norton MD table inspector Cardiology Division [facility] The travibe's documentation has been prepared under my direction and personally reviewed by me in its entirety. I confirm that the note above accurately reflects all work, treatment, procedures, and medical decision making performed by Sp Madrid MD. Rufino Cutler [facility], scribing for and in the presence of [...] 06/01/2018 added in this encounter Care Teams Parking Lot Spotter Relationship Specialty Start Date End Date Cassius Chambers MD [id number] [place] [address] PCP - General 08/12/16 12/30/20 documented as of this encounter
--- OUTSIDE RECORDS SUMMARY | 2024-03-14 00:03 | XMS_ITS | Encounter Summary ---
Author Organization [facility] Facility Care Team Providers Care Amalgamator Name Role Phone Unavailable Primary Care Provider Unavailabl e Encounter Details Date Type Department Care Team (Late st Contact Info) Description 09/12/2014 - 09/12/2014 11:59 PM CDT Hospital Encounter [facility] Cassius Cummings MD [address] [address] Undiagnosed cardiac murmurs Social History Tobacco Use Types Packs/Day Years Used Date Smoking Tobacco: Never Assessed Comments Unknown Sex and Gender Information Value Date Recorded Sex Assigned at Not on file Legal Sex Female 11:30 PM MEDICAL SURGICAL TECH Gender Identity Female 06/15/2023 1:45 PM CDT Sexual Orientation Straight 06/15/2023 1: 45 PM CDT documented as of this encounter Plan of Treatment Not on file documented as of this encounter Visit Diagnoses Diagnosis Undiagnosed cardiac murmurs documented in this encounter
--- OUTSIDE RECORDS SUMMARY | 2024-03-14 00:03 | XMS_ITS | Encounter Summary ---
Author Organization [facility] Facility Care Team Providers Care Courtroom Reporter Name Role Phone Unavailable Primary Care Provider Unavailabl e Encounter Details Date Type Department Care Team (Late st Contact Info) Description 04/19/2012 - 04/19/2012 11:59 PM CONTRACT GRAPHIC DESIGNER Hospital Encounter [facility] Cassius Cummings MD [address] [address] Other screening mammogram; Acquired absence of breast and absent nipple; Personal history of malignant neoplasm of breast Social History Tobacco Use Types Packs/Day Years Used Date Smoking Tobacco: Never Assessed Comments Unknown Sex and Gender Information Value Date Recorded Sex Assigned at Not on file Legal Sex Female 11:30 PM CONTRACT GRAPHIC DESIGNER Gender Identity Female 06/15/2023 1:45 PM CDT Sexual Orientation Straight 06/15/2023 1: 45 PM CDT documented as of this encounter Plan of Treatment Not on file documented as of this encounter Procedures Procedure Name Priority Date/Time Associated Diagnosis Comments SCREENING MAMMOGRAM Routine 04/19/2012 1 1:45 AM CONTRACT GRAPHIC DESIGNER documented in this encounter Results * Screening Mammogram (04/19/2012 11:45 AM CONTRACT GRAPHIC DESIGNER) Anatomical Region Laterality Modality Breast N/A Mammography 04/19/2012 11:4 5 AM CONTRACT GRAPHIC DESIGNER Narrative 04/19/2012 3:04 PM CONTRACT GRAPHIC DESIGNER CRIS FULLER M.D. FINAL REPORT ACC# ??Date Time ??Exam [id number] Apr 19, 2012 11:45:00 [facility] [id number] Screen unilateral R ?? Technologist(s): Nat Mercado; ; EXAMINATION: ??Mammogram Findings: A Full-Field Digital Screening Mammogram was performed. ??Views obtained: right craniocaudal and right mediolateral oblique. Computer Aided Detection was performed with R2, version 9.2. The present examination has been compared to prior imaging studies performed at [facility] on 03/10/2011, 01/26/2010 and 12/24/2008. [...] M.D. FINAL REPORT ACC# Date Time Exam [id number] Apr 19, 2012 11:45:00 [facility] [id number] Screen unilateral R Technologist(s): Nat Mercado; ; EXAMINATION: Mammogram Findings: A Full-Field Digital Screening Mammogram was performed. Views obtained: right craniocaudal and right mediolateral oblique. Computer Aided Detection was performed with R2, version 9.2. The present examination has been compared to prior imaging studies performed at [facility] on 03/10/2011, 01/26/2010 and 12/24/2008. [...]
--- OUTSIDE RECORDS SUMMARY | 2024-03-14 00:03 | XMS_ITS | Encounter Summary ---
Author Organization [facility] Facility Care Team Providers Care Surgical Resident Name Role Phone Unavailable Primary Care Provider Unavailabl e Encounter Details Date Type Department Care Team (Late st Contact Info) Description 12/06/2014 - 12/06/2014 11:59 PM CDT Hospital Encounter [facility] Sp Hilton MD [address] [facility] [address] [place] [address] Social History Tobacco Use Types Packs/Day Years Used Date Smoking Tobacco: Never Assessed Comments Unknown Sex and Gender Information Value Date Recorded Sex Assigned at Not on file Legal Sex Female 11:30 PM CIVIL DIVISION DEPUTY SHERIFF Gender Identity Female 06/15/2023 1:45 PM CDT Sexual Orientation Straight 06/15/2023 1: 45 PM CDT documented as of this encounter Plan of Treatment Not on file documented as of this encounter Visit Diagnoses Not on filedocumented in this encounter
--- OUTSIDE RECORDS SUMMARY | 2024-03-14 00:03 | XMS_ITS | Encounter Summary ---
Author Organization [facility] Facility Care Team Providers Care Marine Consultant Name Role Phone Unavailable Primary Care Provider Unavailabl e Encounter Details Date Type Department Care Team (Late st Contact Info) Description 03/10/2011 - 03/10/2011 11:59 PM CARD TAPE CONVERTER OPERATOR Hospital Encounter [facility] Cassius Cummings MD [address] [address] Other screening mammogram Social History Tobacco Use Types Packs/Day Years Used Date Smoking Tobacco: Never Assessed Comments Unknown Sex and Gender Information Value Date Recorded Sex Assigned at Not on file Legal Sex Female 11:30 PM CARD TAPE CONVERTER OPERATOR Gender Identity Female 06/15/2023 1:45 PM CDT Sexual Orientation Straight 06/15/2023 1: 45 PM CDT documented as of this encounter Plan of Treatment Not on file documented as of this encounter Visit Diagnoses Diagnosis Other screening mammogram documented in this encounter
--- OUTSIDE RECORDS SUMMARY | 2024-03-14 00:03 | XMS_ITS | Encounter Summary ---
Author Organization [facility] Facility Care Team Providers Care Soaker Meat Name Role Phone Unavailable Primary Care Provider Unavailabl e Encounter Details Date Type Department Care Team (Late st Contact Info) Description 08/30/2012 - 08/30/2012 11:59 PM CDT Hospital Encounter [facility] Cassius Cummings MD [address] [address] Routine general medical examination at a health care facility; Asymptomatic postmenopausal status; Disorder of bone and cartilage Social History Tobacco Use Types Packs/Day Years Used Date Smoking Tobacco: Never Assessed Comments Unknown Sex and Gender Information Value Date Recorded Sex Assigned at Not on file Legal Sex Female 11:30 PM DAIRY FEED MIXING OPERATOR Gender Identity Female 06/15/2023 1:45 PM [...] 12:53 PM CDT DI FREEMAN M.D. ROSANNE SAALZAR M.D. FINAL REPORT The radiology attending physician has personally reviewed this study, and has reviewed and/or edited this written report and agrees with it. ACC# ??Date Time ??Exam [id number] Aug 30, 2012 09:15:00 [id number] BONE DEXA (2 sites) EXAMINATION: ??BONE DENSITOMETRY [...] agrees with it. ACC# Date Time Exam [id number] Aug 30, 2012 09:15:00 [id number] BONE DEXA (2 sites) EXAMINATION: BONE DENSITOMETRY [...]
--- OUTSIDE RECORDS SUMMARY | 2024-03-14 00:03 | XMS_ITS | Encounter Summary ---
Author Organization [facility] Facility Care Team Providers Care Timber Supervisor Name Role Phone Unavailable Primary Care Provider Unavailabl e Encounter Details Date Type Department Care Team (Latest Contact Info) Description 10/28/2014 12:45 PM CDT - 10/28/2014 4:00 PM CDT Hospital Encounter [facility] Sp Hilton MD [address] [facility] [address] [place] [address] Mitral valve disorder; Coronary atherosclerosis of [place] coronary artery; Other chronic pulmonary heart diseases [...] on file Legal Sex Female 11:30 PM FUR BUYER Gender Identity Female 06/15/2023 1:45 PM CDT [...] ORDERABLES Final Res ult Performing Organization Address [facility] de Phone Number HISTORICAL [...] ORDERABLES Final Res ult Performing Organization Address [facility] de Phone Number HISTORICAL RESULTS * Cardiac catheterization (10/28/2014 12:00 AM CDT) Anatomical Region Laterality Modality Other 10/28/2014 Narrative 12/15/2014 9:31 PM CDT Patient: ?Yuliana Johnson ? Reg No: ? [id number] ? U H #: ?[id number] ? : ?1940 ? Attending: ??Sp Madrid [...] The patient was brought to the cardiac stucco laborer after informed consent. 2. The right and [...] the modified ?? Seldinger technique. 6. A [place] Rayna catheter was placed under fluoroscopy in [...] Madrid M.D. 12/15/2014 09:31 P Bryan Ferrell/analisa #[id number] Editing MT: TD: ??10/29/2014 07:02:00 cc: ?? Sp Madrid M.D. ?Cassius Chambers M.D. Procedure Note Provider, MD Edward - 06/29/2016 Patient: Yuliana Johnson Reg No: [id number] [facility] #: [id number] : 1940 Attending: Sp Madrid M.D. Dictating: [...] The patient was brought to the cardiac stucco laborer after informedconsent. 2. The right and left groins were prepped and draped under asepticcondition. 3. Fentanyl and Versed were used as sedation and 2% Lidocaine was usedfor local anesthesia. 4. A 4F sheath was introduced into the right femoral artery using the micropuncture technique. 5. An 8F sheath was introduced into the right femoral vein using themodified Seldinger technique. 6. A [place] Rayna catheter was placed under fluoroscopy in [...] Madrid M.D. 12/15/2014 09:31 P Bryan Ferrell/analisa #[id number] Editing MT: TD: 10/29/2014 07:02:00 cc: Bryan Ferrell M.D. us Historical Provider MD WEI CARDIAC CATH PROCEDURE S Final Result documented in this encounter Visit Diagnoses Diagnosis Mitral valve disorder Mitral valve disorders Coronary atherosclerosis of [place] coronary artery Other chronic pulmonary heart diseases Benign essential hypertension Essential hypertension, benign Other and unspecified hyperlipidemia Type 2 or unspecified type diabetes mellitus Personal history of malignant neoplasm of breast Personal history of antineoplastic chemotherapy Personal history of irradiation, presenting hazards to health documented in this encounter
--- OUTSIDE RECORDS SUMMARY | 2024-03-14 00:03 | XMS_ITS | Encounter Summary ---
Author Organization [facility] Facility Care Team Providers Care Sales Producer Name Role Phone Unavailable Primary Care Provider Unavailabl e Encounter Details Date Type Department Care Team (Late st Contact Info) Description 10/17/2014 11:12 AM CDT - 10/17/2014 4:00 PM CDT Hospital Encounter [facility] Cuhng Guillen MD [address] [address] Cardiomegaly; Mitral valve disorder; Atherosclerosis of aorta (CMS/HCC); Disease of tricuspid valve Social History Tobacco Use Types Packs/Day Years Used Date Smoking Tobacco: Never Assessed Comments Unknown Sex and Gender Information Value Date Recorded Sex Assigned at Not on file Legal Sex Female 11:30 PM TRAY DRIER Gender Identity Female 06/15/2023 1:45 PM CDT [...]
--- OUTSIDE RECORDS SUMMARY | 2024-03-14 00:03 | XMS_ITS | Encounter Summary ---
Author Organization [facility] Facility Care Team Providers Care Automatic Profile Shaper Operator Name Role Phone Unavailable Primary Care Provider Unavailabl e Encounter Details Date Type Department Care Team (Late st Contact Info) Description 12/24/2008 - 12/24/2008 11:59 PM CDT Hospital Encounter [facility] Cassius Cummings MD [address] [address] Other screening mammogram; Personal history of malignant neoplasm of breast Social History Tobacco Use Types Packs/Day Years Used Date Smoking Tobacco: Never Assessed Comments Unknown Sex and Gender Information Value Date Recorded Sex Assigned at Not on file Legal Sex Female 11:30 PM BOX MAKER WOOD Gender Identity Female 06/15/2023 1:45 PM CDT Sexual Orientation Straight 06/15/2023 1: 45 PM CDT documented as of this encounter Plan of Treatment Not on file documented as of this encounter Visit Diagnoses Diagnosis Other screening mammogram Personal history of malignant neoplasm of breast documented in this encounter
--- OUTSIDE RECORDS SUMMARY | 2024-03-14 00:03 | XMS_ITS | Encounter Summary ---
Author Organization [facility] Facility Care Team Providers Care Area Operations Director Name Role Phone Unavailable Primary Care Provider Unavailabl e Encounter Details Date Type Department Care Team (Late st Contact Info) Description 07/19/2007 - 07/19/2007 11:59 PM CDT Hospital Encounter [facility] Cassius Cummings MD [address] [address] Social History Tobacco Use Types Packs/Day Years Used Date Smoking Tobacco: Never Assessed Comments Unknown Sex and Gender Information Value Date Recorded Sex Assigned at Not on file Legal Sex Female 11:30 PM DIRECTOR OF ELEMENTARY EDUCATION Gender Identity Female 06/15/2023 1:45 PM CDT Sexual Orientation Straight 06/15/2023 1: 45 PM CDT documented as of this encounter Plan of Treatment Not on file documented as of this encounter Visit Diagnoses Not on filedocumented in this encounter
--- OUTSIDE RECORDS SUMMARY | 2024-03-14 00:03 | XMS_ITS | Encounter Summary ---
Author Organization [facility] Facility Care Team Providers Care Band Bias Machine Operator Name Role Phone Unavailable Primary Care Provider Unavailabl e Encounter Details Date Type Department Care Team (Late st Contact Info) Description 04/28/2010 9:42 AM INSPECTOR BALANCE TRUING - 04/28/2010 4:00 PM [facility] Hospital Encounter [facility] Jordon Cristina MD [address] [place] [address] Follow-up examination, following other surgery; Benign neoplasm of colon; Diverticulosis of colon; Essential hypertension; Type 2 or unspecified type diabetes mellitus; Encounter for long-term (current) use of aspirin Social History Tobacco Use Types Packs/Day Years Used Date Smoking Tobacco: Never Assessed Comments Unknown Sex and Gender Information Value Date Recorded Sex Assigned at Not on file Legal Sex Female 11:30 PM INSPECTOR BALANCE TRUING Gender Identity Female 06/15/2023 1:45 PM CDT [...]
--- OUTSIDE RECORDS SUMMARY | 2024-03-14 00:03 | XMS_ITS | Encounter Summary ---
Author Organization [facility] Facility Care Team Providers Care Optician Apprentice Name Role Phone Unavailable Primary Care Provider Unavailabl e Encounter Details Date Type Department Care Team (Late st Contact Info) Description 10/23/2010 - 10/23/2010 11:59 PM CDT Hospital Encounter [facility] Cassius Cummings MD [address] [address] Pain in joint, upper arm; Other specified disorders of upper arm joint Social History Tobacco Use Types Packs/Day Years Used Date Smoking Tobacco: Never Assessed Comments Unknown Sex and Gender Information Value Date Recorded Sex Assigned at Not on file Legal Sex Female 11:30 PM BANK CONSULTANT Gender Identity Female 06/15/2023 1:45 PM CDT Sexual Orientation Straight 06/15/2023 1: 45 PM CDT documented as of this encounter Plan of Treatment Not on file documented as of this encounter Visit Diagnoses Diagnosis Pain in joint, upper arm Other specified disorders of upper arm joint documented in this encounter
--- OUTSIDE RECORDS SUMMARY | 2024-03-14 00:03 | XMS_ITS | Encounter Summary ---
Author Organization [facility] Facility Care Team Providers Care Community Education Specialist Name Role Phone Unavailable Primary Care Provider Unavailabl e Encounter Details Date Type Department Care Team (Late st Contact Info) Description 05/08/2014 - 05/08/2014 11:59 PM CDT Hospital Encounter [facility] Cassius Cummings MD [address] [address] Encounter for screening mammogram for high-risk patient; Personal history of malignant neoplasm of breast; Acquired absence of breast and absent nipple Social History Tobacco Use Types Packs/Day Years Used Date Smoking Tobacco: Never Assessed Comments Unknown Sex and Gender Information Value Date Recorded Sex Assigned at Not on file Legal Sex Female 11:30 PM LEGAL PROCESS SPECIALIST Gender Identity Female 06/15/2023 1:45 PM [...] M.D. FINAL REPORT ACC# ??Date Time ??Exam [id number] May 08, 2014 10:41:00 [facility] [id number] Mastectomy Screen w Sourav R ?? Technologist(s): Yasmeen Johnson; ; EXAMINATION: ??Mammogram Technique: Right Unilateral Full-Field Digital Screening Mammogram and Digital Breast Tomosynthesis were performed. ??Views obtained: ??right craniocaudal and right mediolateral oblique. ??Computer Aided Detection of the 2D images was performed with Telensius.3 version 9.3. Mammogram Findings: The present examination has been compared to prior imaging studies performed at [facility] on 05/14/2013, 04/19/2012 and 03/10/2011. There are [...] MEEKS M.D. on May 09 2014 11:43A [id number] Procedure Note Provider, MD Edward - 06/22/2016 KATELYN MEEKS M.D. FINAL REPORT ACC# Date Time Exam [id number] May 08, 2014 10:41:00 [facility] [id number] Mastectomy Screen w Sourav R Technologist(s): Yasmeen Johnson; ; EXAMINATION: Mammogram Technique: Right Unilateral Full-Field Digital Screening Mammogram and Digital Breast Tomosynthesis were performed. Views obtained: rightcraniocaudal and right mediolateral oblique. Computer Aided Detection of the 2Dimages was performed with Telensius.3 version 9.3. Mammogram Findings: The present examination has been compared to prior imaging studies performed at [facility] on 05/14/2013, 04/19/2012 and 03/10/2011. There are [...] MEEKS M.D. 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
--- OUTSIDE RECORDS SUMMARY | 2024-03-14 00:03 | XMS_ITS | Encounter Summary ---
Author Organization [facility] Facility Care Team Providers Care Burlap Man Name Role Phone Unavailable Primary Care Provider Unavailabl e Encounter Details Date Type Department Care Team (Late st Contact Info) Description 11/20/2007 - 11/20/2007 11:59 PM CDT Hospital [facility] Cassius Cummings MD [address] [address] Social History Tobacco Use Types Packs/Day Years Used Date Smoking Tobacco: Never Assessed Comments Unknown Sex and Gender Information Value Date Recorded Sex Assigned at Not on file Legal Sex Female 11:30 PM CASHIER CLERK Gender Identity Female 06/15/2023 1:45 PM CDT Sexual Orientation Straight 06/15/2023 1: 45 PM CDT documented as of this encounter Plan of Treatment Not on file documented as of this encounter Visit Diagnoses Not on filedocumented in this encounter
--- OUTSIDE RECORDS SUMMARY | 2024-03-14 00:03 | XMS_ITS | Encounter Summary ---
Author Organization [facility] Facility Care Team Providers Care Deck Specialist Name Role Phone Unavailable Primary Care Provider Unavailabl e Encounter Details Date Type Department Care Team (Late st Contact Info) Description 05/14/2013 - 05/14/2013 11:59 PM CDT Hospital Encounter [facility] Cassius Cummings MD [address] [address] Encounter for screening mammogram for high-risk patient; Personal history of malignant neoplasm of breast; Acquired absence of breast and absent nipple Social History Tobacco Use Types Packs/Day Years Used Date Smoking Tobacco: Never Assessed Comments Unknown Sex and Gender Information Value Date Recorded Sex Assigned at Not on file Legal Sex Female 11:30 PM QUARRYMAN Gender Identity Female 06/15/2023 1:45 PM CDT [...] M.D. FINAL REPORT ACC# ??Date Time ??Exam [id number] May 14, 2013 11:12:00 [facility] [id number] Mastectomy Screen w Sourav R ?? Technologist(s): Nat Mercado; ; EXAMINATION: ??Mammogram Technique: Right Unilateral Full-Field Digital Screening Mammogram and Digital Breast Tomosynthesis were performed. ??Views obtained: ??right craniocaudal and right mediolateral oblique. ??Computer Aided Detection of the 2D images was performed with PixelFish.3 version 9.3. Mammogram Findings: The present examination has been compared to prior imaging studies performed at [facility] on 04/19/2012, 03/10/2011 and 01/26/2010. There are [...] M.D. FINAL REPORT ACC# Date Time Exam [id number] May 14, 2013 11:12:00 [facility] [id number] Mastectomy Screen w Sourav R Technologist(s): Nat Mercado; ; EXAMINATION: Mammogram Technique: Right Unilateral Full-Field Digital Screening Mammogram and Digital Breast Tomosynthesis were performed. Views obtained: rightcraniocaudal and right mediolateral oblique. Computer Aided Detection of the 2Dimages was performed with Quizens 1.3 version 9.3. Mammogram Findings: The present examination has been compared to prior imaging studies performed at [facility] on 04/19/2012, 03/10/2011 and 01/26/2010. There are [...]
--- OUTSIDE RECORDS SUMMARY | 2024-03-14 00:03 | XMS_ITS | Encounter Summary ---
Author Organization [facility] Facility Care Team Providers Care Printing Press Machinist Name Role Phone Unavailable Primary Care Provider Unavailabl e Encounter Details Date Type Department Care Team (Late st Contact Info) Description 01/26/2010 - 01/26/2010 11:59 PM CHECK PILOT Hospital Encounter [facility] Cassius Cummings MD [address] [address] Encounter for screening mammogram for high-risk patient; Personal history of malignant neoplasm of breast; Acquired absence of breast and absent nipple Social History Tobacco Use Types Packs/Day Years Used Date Smoking Tobacco: Never Assessed Comments Unknown Sex and Gender Information Value Date Recorded Sex Assigned at Not on file Legal Sex Female 11:30 PM CHECK PILOT Gender Identity Female 06/15/2023 1:45 PM CDT [...]
--- OUTSIDE RECORDS SUMMARY | 2024-03-14 00:03 | XMS_ITS | Encounter Summary ---
Author Organization [facility] Facility Care Team Providers Care Excelsior Machine Operator Name Role Phone Unavailable Primary Care Provider Unavailabl e Encounter Details Date Type Department Care Team (Late st Contact Info) Description 11/17/2006 - 11/17/2006 11:59 PM CDT Hospital Encounter [facility] Velma Mayer MD [address] [place] [address] Social History Tobacco Use Types Packs/Day Years Used Date Smoking Tobacco: Never Assessed Comments Unknown Sex and Gender Information Value Date Recorded Sex Assigned at Not on file Legal Sex Female 11:30 PM FUR CLIPPER Gender Identity Female 06/15/2023 1:45 PM CDT Sexual Orientation Straight 06/15/2023 1: 45 PM CDT documented as of this encounter Plan of Treatment Not on file documented as of this encounter Visit Diagnoses Not on filedocumented in this encounter
[2024-03-14] MEDS: IPRATROPIUM 0.5 MG/ALBUTEROL SULFATE 2.5 MG AMPUL.NEB 3 ML INHALATION ×2 (02:12→08:30)
[2024-03-14] MEDS: methylPREDNISolone SOD SUCC 125 MG VIAL 60 MG IV PUSH (05:18)
[2024-03-14 08:00] LABS: Glucose Point of Care 99 mg/dl (65-105)
[2024-03-14] MEDS: INSULIN ASPART (*BKC) 100 UNITS/ML 6 UNITS SUB-Q ×2 (09:05→12:23)
[2024-03-14] MEDS: carvediloL 25 MG TABLET PO (09:09)
[2024-03-14] MEDS: APIXABAN 5 MG TABLET PO (09:09)
[2024-03-14] MEDS: ATORVASTATIN 40 MG TABLET PO (09:09)
[2024-03-14] MEDS: FUROSEMIDE 40 MG TABLET PO (09:09)
[2024-03-14] MEDS: ASPIRIN 81 MG ENTERIC TABLET PO (09:11)
[2024-03-14] MEDS: amLODIPine BESYLATE 10 MG TABLET PO (09:11)
[2024-03-14] MEDS: hydroCHLOROthiazide 12.5 MG CAPSULE PO (09:11)
[2024-03-14 09:39] LABS: Basophils Percent Auto 0.2 % (0.2-1.2); Eosinophils Percent Auto 0.1 % (0-4.4); Hematocrit 50.3 % (37.0-47.0); Hemoglobin 16.3 g/dL (12.0-15.0); Immature Granulocyte Absolute 0.15 K/mm3 (0.00-0.031); Lymphocytes Absolute Auto 1.68 K/mm3 (0.9-3.2); Lymphocytes Percent Auto 11.4 % (18.3-44.2); Mean Corpuscular HGB Conc 32.4 g/dl (32-36); Mean Corpuscular Hemoglobin 27.3 pg (26-34); Mean Corpuscular Volume 84.4 fl (80-100); Monocytes Absolute Auto 0.8 K/mm3 (0.1-0.6); Monocytes Percent Auto 5.4 % (2.6-8.5); Neutrophils Absolute Auto 12.1 K/mm3 (1.3-6.7); Neutrophils Percent Auto 81.9 % (45.5-73.1); Platelet Count Result 262 k/mm3 (150-375); Red Blood Count 5.96 M/mm3 (4.2-5.4); Red Cell Distribution Width 13.2 % (11.5-14.5); White Blood Count 14.8 K/mm3 (4.5-10.0)
[2024-03-14 09:52] LABS: Alanine Aminotransferase 37 U/L (6-35); Albumin Level 3.1 g/dL (3.5-5.1); Alkaline Phosphatase 82 U/L (38-126); Anion Gap 9 mmol/L (4-12); Aspartate Amino Transferase 24 U/L (14-36); Bilirubin,Total 0.7 mg/dL (0.2-1.3); Blood Urea Nitrogen 50 mg/dL (7-17); Carbon Dioxide 25 mmol/L (22-30); Chloride 105 mmol/L (98-107); Estimated CRCL calculation 29 ml/min; Estimated Glomerular Filt Rate 46; Glucose 127 mg/dL (65-110); Magnesium 2.8 mg/dL (1.6-2.3); Potassium 3.7 mmol/L (3.4-5.0); Sodium 139 mmol/L (137-145)
--- NOTE | 2024-03-14 11:29 | P.DS_ITS ---
DS: Admitting Diagnosis Discharge Date 03/14/2024 Admitting Diagnosis High blood pressure DS: Summary Hospital Course Hospital Course: * 83 year old female with past medical history of stroke (short term memory deficits and intermittent difficulty with word finding), hypertension, hyperlipidemia, and diabetes presents to the hospital for hypertension with systolics in the 200s. Some history is obtained from patients with her permission. Per patient she has been having elevated blood pressures into the 200s systolic for around 2 weeks. Her notes that their daughter has been in contact with patients PCP but unsure what changes if any have been made to her blood pressure medications. They deny missing any doses of her medications. Patient has been asymptomatic with the hypertension denying headaches, vision changes, chest pain, palpitations. She does note that she has had mild shortness of breath for a week with a dry cough and increased congestion. She has not taken anything for these symptoms. Denies recent sick contacts. She notes that this has been improving daily. At time of assessment patient has no complaints denying chest pain, shortness of breath, pal pitations, nausea/vomiting and abdominal pain. * ED workup: CBC with WBC 9.8, H/H 14.6/45, PLT 191. CMP with Na 140, K 3.5, BUN/Cr 20/0.89. Glucose 179. Lactic 1.5. LFTs WNL. Troponin negative x2. BNP 1170. ABG pH 7.490, pCO2 34.4, pO2 80.8, HCO3 25.6. UA unremarkable. Viral panel negative. Chest XR: No focal infiltrate or effusion. * Blood pressure improved, 138/64. * Fall: - Head CT: No acute intracranial hemorrhage or suspicious mass effect. Findings consistent with patient's known bilateral cerebral infarctions. - C spine CT: Severe degenerative disease, without acute fracture. Diffuse ground glass opacification within the right apex. - Thoracic/lumbar CT: Indeterminate lucency within the vertebral body of T1, to the right of midline which may be artifactual in origin. Clinical correlation is needed regarding point tenderness, which if present, MRI is recommended. Severe degenerative disease, without additional abnormality within the remaining vertebral bodies of the spine. - Pelvis CT: No acute fractures. Diverticulosis. - Lumbar MRI: No abnormal lytic lesion of bone. Severe lumbar spondylosis. * Patient is already on ASA 81 mg daily. Increased eliquis 2.5 mg BID to 5 mg B ID. Changed pravastatin 40 mg daily to high intensity atorvastatin 40 mg daily. * No history of Afib, on eliquis for prior stroke. Follows [facility]. [facility] at [facility]. * Lipid panel: cholesterol 163, LDL 105, HDL 30, triglycerides 138 * Echo 65-70% LVEF with grade I diastolic dysfunction * Bronchospasms improved with solumedrol. Discharged on oral steroids. * A1C 9.3 on 02/21/24 * Urine culture negative. Status at Discharge Functional status at discharge: uses cane/walker Overall status at discharge: patient is not back to baseline Time Spent with Patient Time attestation: Total time spent providing and/or coordinating discharge services: Time spent: Greater than 30 minutes Exam Const: General: comfortable and no acute distress Eyes: Sclera: sclerae normal Resp: Effort & Inspection: normal respiratory effort Auscultation: clear to auscultation bilaterally Other: Improved dry cough Cardio: Rate: regular rate Rhythm: regular rhythm GI: GI Palp: Yes Soft to palpation Auscultation: normal bowel sounds Psych: Other: A&Ox2 DS: Data Data Completed and Pending Labs on day of discharge: Labs from last 24 hours 03/14/24 03/14/24 03/13/24 09:25 07:57 20:16 WBC 14.8 H RBC 5.96 H Hgb 16.3 H Hct 50.3 H MCV 84.4 MCH 27.3 MCHC 32.4 RDW 13.2 Plt Count 262 MPV 11.0 H Immature Gran % (Auto) 1.0 H Neut % (Auto) 81.9 H Lymph % (Auto) 11.4 L [place] % (Auto) 5.4 Eos % (Auto) 0.1 Baso % (Auto) 0.2 Lymph # (Auto) 1.68 [place] # (Auto) 0.8 H Eos # (Auto) 0.0 Baso # (Auto) 0.0 Abs Immat Gran (auto) 0.15 H Absolute Neuts (auto) 12.1 H Absolute Nucleated RBC 0.000 Nucleated RBC % 0.0 Sodium 139 Potassium 3.7 Chloride 105 Carbon Dioxide 25 Anion Gap 9 BUN 50 H D Creatinine 1.12 H Estim Creat Clear Calc 29 Estimated GFR 46 L Glucose 127 H POC Capillary Glucose 99 247 H Calcium 7.0 L Magnesium 2.8 H Total Bilirubin 0.7 AST 24 ALT 37 H Alkaline Phosphatase 82 Total Protein 6.0 L Albumin 3.1 L 03/13/24 03/13/24 16:43 13:17 WBC RBC Hgb Hct MCV MCH MCHC RDW Plt Count MPV Immature Gran % (Auto) Neut % (Auto) Lymph % (Auto) [place] % (Auto) Eos % (Auto) Baso % (Auto) Lymph # (Auto) [place] # (Auto) Eos # (Auto) Baso # (Auto) Abs Immat Gran (auto) Absolute Neuts (auto) Absolute Nucleated RBC Nucleated RBC % Sodium Potassium Chloride Carbon Dioxide Anion Gap BUN Creatinine Estim Creat Clear Calc Estimated GFR Glucose POC Capillary Glucose 283 H 268 H Calcium Magnesium Total Bilirubin AST ALT Alkaline Phosphatase Total Protein Albumin Discharge Plan Discharge Attending physician on discharge: Sergio Talbot Consulting providers: Tennille Vale Discharging Clinician: Gunjan Viveros Anticipated Discharge Date/Time: 03/14/24 13:30 Patient Disposition: SNF Activity: as tolerated Diet: as tolerated, heart healthy and diabetic Discharge Instructions: Discharge disposition: Patient was admitted to the hospital for elevated blood pressures into the 200s systolic (upper number) Take medications as prescribed Continue carvedilol 25 mg twice a day, amlodipine 10 mg PO daily, and HCTZ 12.5 mg PO daily. Monitor blood pressures Take caution while standing, rising, or moving Change positions slowly taking a break between each position change If you standing feel dizzy sat back down and take a break Encouraged to continue with yearly vaccinations Return to the emergency department if he developed sudden shortness of breath, chest pain, nausea, vomiting, upset stomach or intractable diarrhea Return to the emergency department if you develop fever greater than 101.5 Follow-up with the primary care physician within 1-2 weeks Thank you for [facility] for your healthcare needs Patient Instructions: Antibiotic Form, Fall Prevention for Older Adults (DC), Hypertension (DC), Stroke (DC) Patient Language: Macedonian Stand Alone Forms: General Discharge Information Follow-up/Referrals: Kartik,Mehul Fernandez MD [Primary Care Provider] - 1 Week Tennille Vale MD [Physician] - 2 Weeks Discharge Medications: New atorvastatin 40 mg Tablet 40 mg PO DAILY Qty: 30 0RF dextromethorphan polistirex [Delsym 12 hour] 30 mg/5 mL Suspension,Extended Rel 12 Hr 60 mg PO Q12H PRN (Reason: Cough) Qty: 89 0RF amlodipine 10 mg Tablet 10 mg PO DAILY Qty: 30 0RF Eliquis 5 mg Tablet 5 mg PO BID Qty: 60 0RF hydrochlorothiazide 12.5 mg Capsule 12.5 mg PO QAM Qty: 30 0RF prednisone 20 mg tablet 20 mg PO DAILY Qty: 10 0RF Continued furosemide 40 mg tablet 40 mg PO .COMPLEX Rx Instructions: 40 mg orally Daily, change to every other day when swelling improves insulin degludec [Tresiba FlexTouch U-100] 100 unit/mL (3 mL) insulin pen 62 unit SUBCUT DAILY mirtazapine 7.5 mg tablet 7.5 mg PO HS carvedilol 25 mg Tablet 25 mg PO BID aspirin [Adult Low Dose Aspirin] 81 mg Tablet,Delayed Release (Dr/Ec) 81 mg PO DAILY Discontinued Eliquis 2.5 mg tablet 2.5 mg PO BID pravastatin 40 mg Tablet 40 mg PO DAILY losartan 100 mg Tablet 100 mg PO DAILY Date of admission: 03/09/24 09:02 Primary Care Provider: Kartik,Mehul Fernandez Admitting Provider: Luz Elena Sweet Attending physician on admission: Agata Cabrera Condition: Stable Hospitalist MIPS Heart Failure (Exclusion) Patient has history of Heart Transplant or Left Ventricular Assistive Device?: No IF YES, STOP HERE Heart Failure (Qualifier) Patient has current or prior documentation of LVEF less than or equal to 40%, or mod/servere depressed LVSF?: No IF NO, STOP HERE
[2024-03-14 12:01] LABS: Glucose Point of Care 225 mg/dl (65-105)
[2024-03-14] MEDS: INSULIN ASPART (*BKC) 100 UNITS/ML SUB-Q (12:23)
== END 2024-03-14 14:00 | DRG 65 ==
LOC: ANHED 03-07 02:56 → ANH3MEDSUR 03-07 03:54
PROVIDERS: Psychiatry & Neurology Neurology; Student in an Organized Health Care Education/Training Program; Admitting Provider Internal Medicine; Emergency Provider Emergency Medicine; PCP Internal Medicine; Visit Provider Nurse Practitioner Family
DX: I63.9 Cerebral infarction, unspecified (principal); G81.91 Hemiplegia, unspecified affecting right dominant side; I50.32 Chronic diastolic (congestive) heart failure; I11.0 Hypertensive heart disease with heart failure; I69.311 Memory deficit following cerebral infarction; I69.321 Dysphasia following cerebral infarction; W18.30XA Fall on same level, unspecified, initial encounter; E11.9 Type 2 diabetes mellitus without complications; E78.5 Hyperlipidemia, unspecified; J98.01 Acute bronchospasm; M47.816 Spondylosis without myelopathy or radiculopathy, lumbar region; Z85.3 Personal history of malignant neoplasm of breast; Z95.4 Presence of other heart-valve replacement; Z98.41 Cataract extraction status, right eye; Z98.42 Cataract extraction status, left eye; Z79.82 Long term (current) use of aspirin; Z79.01 Long term (current) use of anticoagulants; Z79.4 Long term (current) use of insulin; Z79.84 Long term (current) use of oral hypoglycemic drugs; Z20.822 Contact with and (suspected) exposure to COVID-19
CPT/HCPCS: 36415; 36600; 70450; 70496; 70498; 70551; 71045; 72125; 72128; 72131; 72146; 72148; 72192; 80053; 80061; 81001; 82607; 82746; 82805; 82948; 83036; 83090; 83605; 83690; 83735; 83880; 84145; 84484; 85018; 85025; 85610; 85730; 87086; 87637; 92610; 92611; 93005; 93306; 94640; 96374; 96375; 96376; 97110; 97112; 97163; 97166; 97530; 99285; A9270; G0378; J0360; J1815; J1940; J2919; Q9967

== ENCOUNTER 2024-03-14 22:33 | Emergency (ER) | payer MEDICARE, OTHER, SELFPAY ==
--- NOTE | ~2024-03-14 | CT_ITS ---
EXAMINATION: CT brain wo con DATE: 03/14/2024 23:22 INDICATION: Status post fall. Known head injury. TECHNIQUE: Computed tomography (CT) of the head was performed without intravenous contrast. The dose- length product was 681.00 mGy-cm. Automated exposure control and iterative reconstruction technique were employed. COMPARISON: CT dated 03/12/2024 FINDINGS: Generalized atrophy. There are scattered moderate periventricular and subcortical white mat ter changes, most likely related to small vessel ischemic disease (microangiopathy). Chronic left lac unar and right occipital lobe infarctions. No ventriculomegaly or midline shift. Basilar cisterns are patent. There is intracranial atherosclerosis. Paranasal sinuses and mastoids are pneumatized. No ac [place] hemorrhage, infarction or mass. There is intracranial atherosclerosis. IMPRESSION: 1. No acute intracranial abnormality. 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 Reviewed, dictated and finalized at location A. TER MONITOR
--- NOTE | ~2024-03-14 | XR_ITS ---
XR hip BI 2V w AP pelvis 03/14/2024 23:31 Indication: Status post fall. Hip pain. Procedure: AP pelvis and 2 views each hip Comparison: CT pelvis dated 03/12/2024 Findings: Pelvic rings are intact. Residual contrast is present in the colon with multiple diverticul a. There are surgical changes of the pelvis. There is a sclerotic lesion in the proximal aspect of th e left femur. No acute fracture or traumatic malalignment. Impression: 1: No acute fracture. 2: Sclerotic lesion proximal aspect of the left femur. Cannot exclude metastatic disease. Correlate for history of malignancy. Reviewed, dictated and finalized at location A. ENTICE COOK Impression: 1: No acute fracture. 2: Sclerotic lesion proximal aspect of the left femur. Cannot exclude metastat ic disease. Correlate for history of malignancy.
--- NOTE | ~2024-03-14 | CT_ITS ---
EXAMINATION: CT cervical spine wo con DATE: 03/14/2024 23:23 INDICATION: Neck pain after fall TECHNIQUE: Computed tomography (CT) of the cervical spine was performed without intravenous contrast. The dose-length product was 400 mGy-cm. Automated exposure control and iterative reconstruction tech [email or web address] were employed. COMPARISON: CT dated 03/12/2024 FINDINGS: Stable severe cervical spondylosis. Craniovertebral junction is normal. No acute fracture o r traumatic malalignment. No evidence for perched facet. No paraspinal soft tissue abnormality. Lung apices are unremarkable. Straightening of cervical lordosis. There is degenerative anterolisthesis at C3-4 and C4-5. There is moderate multilevel facet and uncinate degenerative change with hypertrophy. Odontoid process within normal limits. There is carotid atherosclerosis. IMPRESSION: 1. No acute fracture. Reviewed, dictated and finalized at location A. A IMPRESSION: 1. No acute fracture.
[2024-03-14 22:38] VITALS: BP 145/74; PULSE 78; RESP 22; TEMP 36.9; O2SAT 94
[2024-03-15 00:07] VITALS: BP 136/75; PULSE 76; RESP 16; O2SAT 94
--- NOTE | 2024-03-15 00:07 | ED_ITS ---
HPI - Fall General Chief Complaint: Fall Stated Complaint: UNWITNESSED FALL OUT OF LOW BED Time Seen by Provider: 03/14/24 22:52 Source: patient, family and old records reviewed Mode of arrival: EMS Limitations: no limitations History of Present Illness HPI Narrative: Patient is an 83 y/o female who presents to the ED via EMS with report of a fall. Son at bedside assisted in providing information. Records were also reviewed. Patient was recently admitted here on 03/07 for HTN, unfortunately had a large L sided stroke during her hospitalization and has developed R sided hemiparesis. Was discharged from the hospital this afternoon to [facility]. Per senior care staff, patient was found on the ground next to her bed this evening. Her bed was lowered to the ground, approximately 8 in off the ground. She did not appear to have any trauma, but was sent here for further evaluation as she is on Eliquis. Patient is unable to tell me how the fall occurred. She does have history of memory issues from strokes. She denies any acute pain. Denies neck or back pain, headache, chest pain, abdominal pain. Related Data Home Medications ?Medication ?Instructions ?Recorded ?Confirmed ?Last Taken ?Type aspirin 81 mg tablet,delayed 81 mg PO DAILY 02/18/19 03/07/24 03/06/24 09:00 History release (Adult Low Dose Aspirin) carvedilol 25 mg tablet 25 mg PO BID 02/18/19 03/07/24 03/06/24 17:00 History furosemide 40 mg tablet 40 mg PO .COMPLEX 03/07/24 03/07/24 03/06/24 09:00 History insulin degludec 100 unit/mL (3 62 unit subcut DAILY 03/07/24 03/07/24 03/06/24 09:00 History mL) subcutaneous pen (Tresiba FlexTouch U-100 insulin) mirtazapine 7.5 mg tablet 7.5 mg PO HS 03/07/24 03/07/24 03/06/24 21:00 History Allergies Allergy/AdvReac Type Severity Reaction Status Date / Time No Known Allergies Allergy Verified 10/28/22 13:48 Review of Systems Review of Systems: All systems reviewed & are unremarkable except as noted in HPI. All systems reviewed & are unremarkable except as noted in HPI and below PMFSH Past Medical History Medical History Left-sided cerebrovascular accident (CVA) Diabetes mellitus Hyperlipidemia Type 2 diabetes mellitus Hypertension Cerebrovascular accident (01/2019) Memory deficits, occasional word-finding problems, cognitive decline. Cancer of left breast (1991) Thoracic compression fracture Arthritis Valvular heart disease Surgical History Surgical History History of heart valve replacement History of right breast biopsy History of bilateral cataract extraction History of left mastectomy (1991) History of dilation and curettage (08/2001) History of hysterectomy (2001) History of tubal ligation (1978) Family History Family History Mother Throat cancer Father Liver cancer Sibling Diabetes mellitus Grandparent Hypertension Heart disease Social History Social History Social History: Surrogate medical decision maker: Pedrito Johnson, spouse. Code status: Full code. Lives at home with her . Does not use assistive devices with ambulation at baseline. Smoking status: Never smoker Alcohol intake: never Substance use: never Substance use type: does not use Do You Feel Safe in your Home?: Yes Lack of Transportation: No Lack of Food: Never True Current Housing: I Have Housing Concerned About Future Housing: No Difficulty Paying Gas/Electric Bills: No Difficulty Paying for Meds: No Currently Unemployed: No Education: High School Diploma/GED Difficulty w/ Childcare or Family Care: No Living arrangements: with family Additional living arrangements comments: Lives with spouse in [place]. Raised 4 children. Occupation/Education: retired Gender identity (if verbalized by the patient): Female Sexual Orientation (if Verbalized by the Patient): Straight or Heterosexual Spiritual care concerns: No Agree to blood products: Yes Exam Narrative: GENERAL: Chronically ill appearing, obese, non-toxic, in no acute distress. HEAD: Normocephalic, atraumatic. RESPIRATORY: Airway patent, respirations nonlabored. Clear to auscultation bilaterally, no rales, rhonchi, wheezing. CARDIOVASCULAR: Regular rate and rhythm without murmurs, rubs, or gallops. MUSCULOSKELETAL: No gross deformities. Hemiparesis of right upper lower extremities. She is able to move left side extremities without issue or pain. No tenderness over hips bilaterally. SKIN: Warm, dry, normal color. NEURO: A&O X3. Answers all questions. Speech clear. No ataxic movements. PSYCHIATRIC: Appropriate mood and affect. Normal interaction. Course Vital Signs Vital signs: Vital Signs Temperature 98.5 F 03/14/24 22:38 Pulse Rate 78 03/14/24 22:38 Respiratory Rate 22 H 03/14/24 22:38 Blood Pressure 145/74 H 03/14/24 22:38 Pulse Oximetry 94 03/14/24 22:38 Oxygen Delivery Room Air 03/14/24 22:38 Temperature 98.5 F 03/14/24 22:38 Pulse Rate 73 03/15/24 00:57 Respiratory Rate 15 03/15/24 00:57 Blood Pressure 132/78 03/15/24 00:57 Pulse Oximetry 95 03/15/24 00:57 Oxygen Delivery Room Air 03/14/24 22:38 MDM - Fall MDM Narrative Medical decision making narrative: CT brain and cervical spine negative. Showing chronic recent stroke. X-ray of judy hips/pelvis negative for acute fracture. Patient just left our hospital today and had recent labs. Do not feel further workup is required at this time. She is at her most recent neurologic baseline per family at bedside and from what I can appreciate from recent hospital records. Feel she is safe to return to senior care as previously planned. She continues to deny any acute pain or other complaints. Return precautions discussed on paperwork. Son at bedside is in agreement with plan and feels com fortable with patient returning to [place]. Medical Records Attestation: I reviewed the patient's medical records. Imaging Data Attestation: I personally reviewed and interpreted this imaging study as follows: Radiologist's impression: ITS Impressions Hip/Pelvis X-Ray 03/14/24 23:36 Impression: 1: No acute fracture. 2: Sclerotic lesion proximal aspect of the left femur. Cannot exclude metastatic disease. Correlate for history of malignancy. Head CT 03/14/24 23:40 IMPRESSION: 1. No acute intracranial abnormality. 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 Cervical Spine CT 03/14/24 23:45 IMPRESSION: 1. No acute fracture. Discharge Plan Discharge Clinical Impression: Fall from ground level, History of CVA (cerebrovascular accident) Patient Disposition: NH Skilled Nursing/Asst Living Condition: Stable Instructions: Antibiotic Form, Fall Prevention for Older Adults (ED), Head Injury (ED) Additional Instructions: Patient's imaging here did not show any evidence of traumatic findings. Return patient to the ED if she experiences recurrent falls or injuries, worsening weakness or confusion, unable to keep down food or drink, difficulty breathing, persistent fevers, or any other symptoms of concern. Patient Language: Maltese Prescriptions: No Action furosemide 40 mg tablet 40 mg PO .COMPLEX Rx Instructions: 40 mg orally Daily, change to every other day when swelling improves insulin degludec [Tresiba FlexTouch U-100] 100 unit/mL (3 mL) insulin pen 62 unit SUBCUT DAILY mirtazapine 7.5 mg tablet 7.5 mg PO HS atorvastatin 40 mg Tablet 40 mg PO DAILY Qty: 30 0RF dextromethorphan polistirex [Delsym 12 hour] 30 mg/5 mL Suspension,Extended Rel 12 Hr 60 mg PO Q12H PRN (Reason: Cough) Qty: 89 0RF amlodipine 10 mg Tablet 10 mg PO DAILY Qty: 30 0RF Eliquis 5 mg Tablet 5 mg PO BID Qty: 60 0RF hydrochlorothiazide 12.5 mg Capsule 12.5 mg PO QAM Qty: 30 0RF prednisone 20 mg tablet 20 mg PO DAILY Qty: 10 0RF carvedilol 25 mg Tablet 25 mg PO BID aspirin [Adult Low Dose Aspirin] 81 mg Tablet,Delayed Release (Dr/Ec) 81 mg PO DAILY Follow-up/Referrals: Kartik,Mehul Fernandez MD [Primary Care Provider] - Time of Disposition: 00:09
[2024-03-15 00:57] VITALS: BP 132/78; PULSE 73; RESP 15; O2SAT 95
== END 2024-03-15 01:06 ==
PROVIDERS: Emergency Provider Physician Assistant; PCP Internal Medicine
DX: Z04.3 Encounter for examination and observation following other accident (principal); I69.351 Hemiplegia and hemiparesis following cerebral infarction affecting right dominant side; I69.311 Memory deficit following cerebral infarction; I38 Endocarditis, valve unspecified; I10 Essential (primary) hypertension; E11.9 Type 2 diabetes mellitus without complications; E78.5 Hyperlipidemia, unspecified; M19.90 Unspecified osteoarthritis, unspecified site; Z95.2 Presence of prosthetic heart valve; Z85.3 Personal history of malignant neoplasm of breast; Z79.4 Long term (current) use of insulin; Z98.41 Cataract extraction status, right eye; Z90.12 Acquired absence of left breast and nipple; Z90.710 Acquired absence of both cervix and uterus; Z79.899 Other long term (current) drug therapy; Z79.82 Long term (current) use of aspirin; Z79.01 Long term (current) use of anticoagulants; Z98.42 Cataract extraction status, left eye; M89.9 Disorder of bone, unspecified; W06.XXXA Fall from bed, initial encounter
CPT/HCPCS: 70450; 72125; 73521; 99284